=== PATIENT | male | born 1945 | race Caucasian/White ===

== ENCOUNTER → 2017-05-02 | Emergency (ER) | payer MEDICARE ==
[~2017-05-02] VITALS: Ht 198.1 cm; Wt 118.4 kg
[~2017-05-02] MED LIST: ASPIR 8181 MG PO; CIPRO500 MG PO; FLAGYL250 MG PO; LEVAQUIN500 MG PO; LOTREL 10-40 M1 EACH PO; NORCO 5-325 TA1 EACH PO; OMEPRAZOLE40 MG PO; ONDANSETRON HCL INJ 2 MG/ML VIAL IV STA; PANTOPRAZOLE SO40 MG PO
[2017-05-02 18:21] LABS: BASOPHILS % 0.6 % (0.0-1.0); EOSINOPHILS # (AUTO) 0.2 (0.0-0.4); EOSINOPHILS % 3.3 % (0.0-6.0); HEMATOCRIT 44.3 % (38.2-49.6); HEMOGLOBIN 14.9 g/dL (14.0-18.0); LYMPHOCYTES # (AUTO) 1.5 (1.0-3.2); LYMPHOCYTES % 23.8 % (18.0-39.1); MEAN CORPUSCULAR HEMOGLOBIN 30.9 pg (28-32); MEAN CORPUSCULAR HGB CONC 33.6 g/dL (31-35); MEAN CORPUSCULAR VOLUME 91.9 fL (81-99); MONOCYTES # (AUTO) 0.7 (0.2-0.8); MONOCYTES % 10.6 % (4.4-11.3); NEUTROPHILS # (AUTO) 3.9 (2.1-6.9); NEUTROPHILS % 61.2 % (38.7-80.0); PLATELET COUNT 245 x10e3/uL (140-360); RED BLOOD COUNT 4.82 x10e6/uL (4.3-5.7); RED CELL DISTRIBUTION WIDTH 14.6 % (11.7-14.4)
[2017-05-02 18:35] LABS: ALBUMIN 4.1 g/dL (3.5-5.0); ALBUMIN/GLOBULIN RATIO 0.9 (0.8-2.0); CALCIUM 9.5 mg/dL (8.4-10.2); CREATININE, SERUM 1.56 mg/dL (0.72-1.25)
[2017-05-02 18:44] LABS: BILIRUBIN,URINE NEGATIVE (NEGATIVE); CLARITY,URINE CLEAR (CLEAR); COLOR,URINE YELLOW (YELLOW); KETONES,URINE NEGATIVE (NEGATIVE); LEUKOCYTE ESTERASE ,URINE TRACE (NEGATIVE); NITRITE,URINE NEGATIVE (NEGATIVE); PROTEIN,URINE DIPSTICK NEGATIVE (NEGATIVE); URINE UROBILINOGEN 0.2 mg/dL (0.2 - 1)
[2017-05-02 18:57] LABS: EPITHELIAL CELLS,URINE RARE /LPF; WBC,URINE (MAN) 0-5 /HPF (0-5)
--- NOTE | 2017-05-02 22:58 | Diagnostic Imaging Report ---
EXAM: CT ABDOMEN AND PELVIS without IV CONTRAST DATE: 05/02/2017 8:35 PM Time stamp on Exam: 2216 hours INDICATION: Left lower quadrant pain COMPARISON: CT of the abdomen and pelvis April 15, 2017 TECHNIQUE: The abdomen and pelvis were scanned using a multidetector helical scanner. Coronal and sagittal reformations were obtained. Routine protocol performed. IV Contrast: None Oral Contrast: Gastrografin CTDIvol has been reviewed. It is below the limits set by the Radiation Protocol Committee (RPC). FINDINGS: LOWER THORAX: Emphysematous changes LIVER: No masses BILIARY: Cholecystectomy SPLEEN: No masses PANCREAS: Pancreatic atrophy ADRENALS: No nodules KIDNEYS: No nephroureterolithiasis or hydronephrosis. Nonspecific bilateral perinephric fat stranding, likely related to chronic medical renal disease. Stable bilateral renal cysts. GI TRACT: No distention, wall thickening or evidence of obstruction. Normal appendix. The sigmoid colon is redundant. Sigmoid colon diverticulosis. VESSELS: Mild calcified atherosclerotic changes without aneurysm. PERITONEUM/RETROPERITONEUM: No free air or fluid LYMPH NODES: No lymphadenopathy REPRODUCTIVE ORGANS: Unremarkable BLADDER: Stable mild circumferential thickening of the bladder wall, which is incompletely distended. SOFT TISSUES: Unremarkable BONES: Postprocedural changes of vertebroplasty and surgical changes to the right sacroiliac joint. Stable multilevel lower thoracic and lumbar spine compression fractures. IMPRESSION: No CT findings to explain patient's acute left lower quadrant pain. Interval resolution of prior sigmoid colon diverticulitis. Signed by: Dr. Janie Charles M.D. on 05/02/2017 10:55 PM
== END | disposition home or self-care (01) ==
LOC: ER 15:27
DX: R10.84 Generalized abdominal pain (principal); R11.0 Nausea; I10 Essential (primary) hypertension; G20 Parkinson's disease; I25.2 Old myocardial infarction; Z87.19 Personal history of other diseases of the digestive system
CPT/HCPCS: 36415; 74176; 80053; 81001; 85025; 87086; 99284; J2405

== ENCOUNTER 2017-06-11 12:53 | Emergency (ER) | payer MEDICARE ==
[~2017-06-11] VITALS: Ht 198.1 cm; Wt 118.4 kg
[~2017-06-11 12:53] MED LIST changes: -ONDANSETRON HCL INJ 2 MG/ML VIAL IV STA
--- NOTE | 2017-06-11 15:31 | Diagnostic Imaging Report ---
ADDENDUM #1 Addendum: Appendix is normal. Signed by: Dr. Lisa Epperson M.D. on 06/14/2017 7:38 AM ORIGINAL REPORT EXAM: CT Abdomen and Pelvis WITHOUT contrast INDICATION: Right CVA tenderness COMPARISON: CT abdomen and pelvis from 05/02/2017 TECHNIQUE: Abdomen and pelvis were scanned utilizing a multidetector helical scanner from the lung base to the pubic symphysis without administration of IV contrast. Absence of intravenous contrast decreases sensitivity for detection of focal lesions and vascular pathology. Coronal and sagittal reformations were obtained. Routine protocol was performed. IV CONTRAST: None. ORAL CONTRAST: Water RADIATION DOSE: Total DLP: 684.1 mGy*cm Estimated effective dose: (DLP x 0.015 x size factor) mSv COMPLICATIONS: None FINDINGS: LINES and TUBES: None. LOWER THORAX: Emphysema. Small hiatal hernia. HEPATOBILIARY: No focal hepatic lesions. No biliary ductal dilation. GALLBLADDER: Cholecystectomy. SPLEEN: No splenomegaly. PANCREAS: No focal masses or ductal dilatation. ADRENALS: No adrenal nodules KIDNEYS/URETERS: No hydronephrosis. Unchanged 3 cm left and 1.4 cm right renal cyst. Mild bilateral cortical atrophy with surrounding fat stranding. No stones. GI TRACT: No abnormal distention, wall thickening, or evidence of bowel obstruction. Diverticulosis of the sigmoid colon. PELVIC ORGANS/BLADDER: Prostate calcifications. Circumferential wall thickening of the urinary bladder may relate to poor distention. LYMPH NODES: No lymphadenopathy. VESSELS: Unremarkable. PERITONEUM / RETROPERITONEUM: No free air or fluid. BONES: Postprocedural changes of vertebroplasty and surgical changes to the right sacroiliac joint. Stable multilevel lower thoracic and lumbar spine compression fractures. SOFT TISSUES: Unremarkable. IMPRESSION: 1. Stable diffuse diverticulosis throughout the colon without diverticulitis. 2. Mild bilateral cortical atrophy without hydronephrosis or calcified stones. Signed by: Dr. Lisa Epperson M.D. on 06/11/2017 3:27 PM
[2017-06-11 17:52] LABS: BASOPHILS % 0.3 % (0.0-1.0); EOSINOPHILS % 0.5 % (0.0-6.0); HEMATOCRIT 44.6 % (38.2-49.6); HEMOGLOBIN 14.8 g/dL (14.0-18.0); LYMPHOCYTES # (AUTO) 1.4 (1.0-3.2); LYMPHOCYTES % 16.4 % (18.0-39.1); MEAN CORPUSCULAR HEMOGLOBIN 30.1 pg (28-32); MEAN CORPUSCULAR HGB CONC 33.2 g/dL (31-35); MEAN CORPUSCULAR VOLUME 90.7 fL (81-99); MONOCYTES # (AUTO) 0.9 (0.2-0.8); MONOCYTES % 10.7 % (4.4-11.3); NEUTROPHILS # (AUTO) 6.2 (2.1-6.9); NEUTROPHILS % 71.5 % (38.7-80.0); PLATELET COUNT 258 x10e3/uL (140-360); RED BLOOD COUNT 4.92 x10e6/uL (4.3-5.7); RED CELL DISTRIBUTION WIDTH 14.6 % (11.7-14.4)
[2017-06-11 18:22] LABS: PARTIAL THROMBOPLASTIN TIME 25.2 seconds (23.8-35.5); PROTHROMBIN TIME 13.7 seconds (11.9-14.5)
[2017-06-11 18:31] LABS: ALBUMIN 4.2 g/dL (3.5-5.0); ALBUMIN/GLOBULIN RATIO 1.1 (0.8-2.0); ANION GAP 13.5 mmol/L (8-16); CALCIUM 9.1 mg/dL (8.4-10.2); CREATININE, SERUM 1.28 mg/dL (0.72-1.25); POTASSIUM 4.5 mmol/L (3.5-5.1)
[2017-06-11 18:37] LABS: CREATINE KINASE MB 1.9 ng/mL (0.00-5.00); TROPONIN I 0.007 ng/mL (0-0.300)
[2017-06-11 21:10] VITALS: BP 124/79
== END 2017-06-11 21:25 | disposition home or self-care (01) ==
LOC: ER 12:53
DX: R10.11 Right upper quadrant pain (principal); R10.13 Epigastric pain; R11.0 Nausea; I10 Essential (primary) hypertension; Z87.19 Personal history of other diseases of the digestive system
CPT/HCPCS: 36415; 74176; 80053; 82150; 82550; 82553; 83690; 84484; 85025; 85610; 85730; 99283

== ENCOUNTER 2017-07-09 08:13 | Inpatient (IN) | payer MEDICARE ==
[~2017-07-09] VITALS: Ht 193 cm; Wt 114.3 kg
[2017-07-09] VITALS (29 sets, daily range): BP systolic 103–163; BP diastolic 72–111
--- OUTSIDE RECORDS SUMMARY | 2017-07-09 08:16 | XMS REPORT ---
Author Author [facility] Address Unknown Phone Unavailable Care Team Providers Care Milk Collector Name Role Phone DAISY LUCIA Unavailable Unavailable LISA HUNTER Unavailable Unavailable KELY LESTER Unavailable Unavailable YVETTE HERMAN Unavailable Unavailable Problems This patient has no known problems. Allergies, Adverse Reactions, Alerts This patient has no known allergies or adverse reactions. Medications This patient has no known medications. 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 Signed by: Dr. Li Cintron M.D. on 06/14/2017 7:38 AM ORIGINAL REPORT EXAM: CT Abdomen and Pelvis WITHOUT contrast INDICATION: Right CVA tenderness COMPARISON: CT abdomen and pelvis from 05/02/2017 TECHNIQUE: Abdomen and pelvis were scanned utilizing a multidetector helical scanner from the lung base to the pubic symphysis without administration of IV contrast. Absence of intravenous contrast decreases sensitivity for detection of focal lesions and vascular pathology. Coronal and sagittal reformations were obtained. Routine protocol was performed. IV CONTRAST: None. ORAL CONTRAST: Water RADIATION DOSE: Total DLP: 684.1 mGy*cm Estimated effective dose: (DLP x 0.015 x size factor ) mSv COMPLICATIONS: None FINDINGS: LINES and TUBES: None. LOWER THORAX: Emphysema. Small hiatal hernia. HEPATOBILIARY: No focal hepatic lesions. No biliary ductal dilation. GALLBLADDER: Cholecystectomy. SPLEEN: No splenomegaly. PANCREAS: No focal masses or ductal dilatation. ADRENALS: No adrenal nodules KIDNEYS/ URETERS: No hydronephrosis. Unchanged 3 cm left and 1.4 cm right renal cyst. Mild bilateral cortical atrophy with surrounding fat stranding. No stones. GI TRACT: No abnormal distention, wall thickening, or evidence of bowel obstruction. Diverticulosis of the sigmoid colon. PELVIC ORGANS/ BLADDER: Prostate calcifications. Circumferential wall thickening of the urinary bladder may relate to poor distention. LYMPH NODES: No lymphadenopathy. VESSELS: Unremarkable. PERITONEUM / RETROPERITONEUM: No free air or fluid. BONES: Postprocedural changes of vertebroplasty and surgical changes to the right sacroiliac joint. Stable multilevel lower thoracic and lumbar spine compression fractures. SOFT TISSUES: Unremarkable. IMPRESSION: 1. Stable diffuse diverticulosis throughout the colon without diverticulitis. 2. Mild bilateral cortical atrophy without hydronephrosis or calcified stones. Signed by: Dr. Li Cintron M.D. on 06/11/2017 3:27 PM Dictated By: LI CINTRON MD 1527 COPY TO: CAM ROSARIO NP CT ABDOMEN/PELVIS [place] [address] Patient Name: TEDDY LESTER MR #: [id number] : 1945 Age/Sex: 72/M Req #: [id number] Adm Physician: Ordered by: KELY LESTER MD Report #: [id number] Location: ER Room/Bed: ___ Procedure: [id number] CT/CT ABDOMEN/PELVIS WO Exam Date: 05/02/17 Exam Time: 2104 REPORT STATUS: Signed EXAM: CT ABDOMEN AND PELVIS without IV CONTRAST DATE: 05/02/2017 8:35 PM Time stamp on Exam: 2216 hours INDICATION: Left lower quadrant pain COMPARISON: CT of the abdomen and pelvis April 15, 2017 TECHNIQUE: The abdomen and pelvis were scanned using a multidetector helical scanner. Coronal and sagittal reformations were obtained. Routine protocol performed. IV Contrast: None Oral Contrast: Gastrografin CTDIvol has been reviewed. It is below the limits set by the Radiation Protocol Committee (RPC). FINDINGS: LOWER THORAX: Emphysematous changes LIVER: No masses BILIARY: Cholecystectomy SPLEEN: No masses PANCREAS: Pancreatic atrophy ADRENALS: No nodules KIDNEYS: No nephroureterolithiasis or hydronephrosis. Nonspecific bilateral perinephric fat stranding, likely related to chronic medical renal disease. Stable bilateral renal cysts. GI TRACT: No distention, wall thickening or evidence of obstruction. Normal appendix. The sigmoid colon is redundant. Sigmoid colon diverticulosis. VESSELS: Mild calcified atherosclerotic changes without aneurysm. PERITONEUM/RETROPERITONEUM: No free air or fluid LYMPH NODES: No lymphadenopathy REPRODUCTIVE ORGANS: Unremarkable BLADDER : Stable mild circumferential thickening of the bladder wall, which is incompletely distended. SOFT TISSUES: Unremarkable BONES: Postprocedural changes of vertebroplasty and surgical changes to the right sacroiliac joint. Stable multilevel lower thoracic and lumbar spine compression fractures. IMPRESSION: No CT findings to explain patient's acute left lower quadrant pain. Interval resolution of prior sigmoid colon diverticulitis. Signed by: Dr. Nerissa Charles M.D. on 05/02/2017 10:55 PM Dictated By : NERISSA CHARLES MD 54 Transcribed By: ERICH on 05/02/172254 COPY TO: KELY LESTER MD CT ABDOMEN/PELVIS W [place] [address] Patient Name: TEDDY LESTER MR #: [id number] : 1945 Age/Sex: 72/M Req #: [id number] Adm Physician: Ordered by: KELY LESTER MD Report #: [id number] Location: ER Room/Bed: ___ Procedure: [id number] CT/CT ABDOMEN/PELVIS W Exam Date: Exam Time: REPORT STATUS: Signed EXAM: CT Abdomen and Pelvis WITH contrast INDICATION: Diverticulitis COMPARISON: 08/02/2016 TECHNIQUE: Abdomen and pelvis were scanned utilizing a multidetector helical scanner from the lung base to the pubic symphysis after administration of IV contrast. Coronal and sagittal reformations were obtained. Routine protocol was performed. Scan was performed when during portal venous phase. IV CONTRAST: 100 mL of Isovue-370 ORAL CONTRAST: Gastrografin RADIATION DOSE: Total DLP: 732.58 mGy*cm Estimated effective dose: (DLP x 0.015 x size factor) mSv COMPLICATIONS: None FINDINGS: LINES and TUBES: None. LOWER THORAX: Unremarkable HEPATOBILIARY: No focal hepatic lesions. No biliary ductal dilation. GALLBLADDER: There are cholecystectomy clips. SPLEEN: No splenomegaly. PANCREAS: No focal masses or ductal dilatation. ADRENALS: No adrenal nodules KIDNEYS/URETERS: Kidneys enhance symmetrically. No hydronephrosis. There are bilateral renal cysts, the largest on the left measuring 3.8 cm in diameter No stones. GI TRACT: Focal circumferential wall thickening of the mid sigmoid colon best visualized on series 2, image 64 with pericolic fat stranding. There are additional diverticula within the colon. PELVIC ORGANS/BLADDER: Unremarkable. LYMPH NODES: No lymphadenopathy. VESSELS: There is moderate atherosclerotic disease in the aorta and major arterial branches. PERITONEUM / RETROPERITONEUM: No free air or fluid. BONES: There are degenerative changes in the lumbar spine. Diffuse demineralization. There are 3 metallic screws along the right SI joint. Multiple levels of vertebroplasty noted along the thoracolumbar spine from T12 through L5 demonstrating compression deformities SOFT TISSUES: Unremarkable. IMPRESSION: 1. Findings in the mid sigmoid colon are compatible with diverticulitis. Follow-up after treatment with colonoscopy is recommended 2. Bilateral renal cysts. Signed by: Dr. Chapito Mukherjee M.D. on 04/15/2017 5: 32 AM Dictated By: CHAPITO GONZALEZ MD 1 Transcribed By: ERICH on 04/15/17531 COPY TO: KELY LESTER MD CT CHEST W [place] [address] Patient Name: TEDDY LESTER MR #: [id number] : 1945 Age/Sex: 71/M Req #: [id number] Adm Physician: Ordered by: YVETTE HERMAN MD Report #: [id number] Location: ER Room/Bed: Procedure: [id number] CT/CT CHEST W Exam Date: 01/25/17 Exam Time: 1740 REPORT STATUS: Signed EXAM: CT Chest WITH contrast 01/25/2017 4:10 PM INDICATION: Chest pain. Pulmonary malaise and? COMPARISON: None TECHNIQUE: Chest was scanned utilizing a multidetector helical scanner from the lung apex through the level of the adrenal glands without administration of IV contrast. Coronal and sagittal reformations were obtained. Pulmonary embolism protocol was performed. IV CONTRAST: 100 mL of Isovue- 370 RADIATION DOSE: Total DLP: 622.30 mGy*cm Estimated effective dose: (DLP x 0.014 x size factor) mSv COMPLICATIONS: None FINDINGS: LINES/ TUBES: None. LUNGS AND AIRWAYS: The filling defects within the pulmonary arteries bilaterally. Biapical fibronodular changes with calcifications suggesting healed granulomatous disease. Mild diffuse coarsening of the pulmonary interstitium particularly in the lower lobes likely reflect senescent fibrosis. PLEURA: No pleural effusion or pneumothorax. HEART AND MEDIASTINUM: No mediastinal, hilar or axillary lymphadenopathy. The heart is normal in size.. There is no pericardial effusion. Multivessel coronary artery calcifications. Lipomatosis of the mediastinum. Small calcified lymph nodes scattered throughout the mediastinum. UPPER ABDOMEN: Limited non-contrast views of the upper abdomen show a 4.4 cm cyst in the posterior interpolar region of the left kidney. An 8 mm nonspecific calcification posterior to the portal splenic confluence on less image #123. The adrenal glands are normal. Small hiatal hernia. BONES: Generalized osteopenia. Status post kyphoplasty of T12. Compression deformities of T9, T10 and T11. SOFT TISSUES: Unremarkable. IMPRESSION: 1. No evidence of pulmonary embolism as per clinical query. 2. Coronary artery disease. Signed by: Dr. Rock Thomas M.D. on 01/25/2017 6:33 PM Dictated By: MARISEL THOMAS MD, MD 32 COPY TO: YVETTE HERMAN MD CHEST [facility] (PORTABLE) [place] [address] Patient Name: TEDDY LESTER MR #: [id number] : 1945 Age/Sex: 71/M Req #: [id number] Adm Physician: Ordered by: YVETTE HERMAN MD Report #: [id number] Location: ER Room/Bed: Procedure: [id number] DX/CHEST SINGLE (PORTABLE) Exam Date: Exam Time: REPORT STATUS: Signed PROCEDURE: A single AP view of the chest. COMPARISON: Patients [facility], DX, CHEST SINGLE ( NOT PORTABLE), 05/13/2016, 21:27. INDICATIONS: CHEST PAIN FINDINGS: Lines/tubes: None. Lungs: The lungs are well inflated and clear. There is no evidence of pneumonia or pulmonary edema. Pleura: There is no pleural effusion or pneumothorax. Heart and mediastinum: Tortuous thoracic aorta. Scalloping of the right hemidiaphragm is again observed. Bones: No acute bony abnormality. IMPRESSION: 1. No acute cardiopulmonary disease. Rock Thomas M.D. Dictated by: Rock Thomas M.D. on 01/25/2017 at 16:06 Electronically approved by: Rock Thomas M.D. on 01/25/2017 at 16: 06 Dictated By: MARISEL THOMAS MD, MD 1603 Transcribed By: AMERICO on 01/25/17 1606 COPY TO: YVETTE HERMAN MD
[2017-07-09] MEDS ORDERED: ASPIRIN 81 MG CHEW TAB PO ONE (08:30)
[2017-07-09] MEDS ORDERED: NITROGLYCERIN 0.4 MG SUBL SL ONE (08:30)
[2017-07-09 08:35] LABS: BASOPHILS % 0.2 % (0.0-1.0); EOSINOPHILS # (AUTO) 0.1 (0.0-0.4); HEMOGLOBIN 14.5 g/dL (14.0-18.0); LYMPHOCYTES # (AUTO) 1.6 (1.0-3.2); LYMPHOCYTES % 25.5 % (18.0-39.1); MEAN CORPUSCULAR HEMOGLOBIN 30.1 pg (28-32); MEAN CORPUSCULAR HGB CONC 33.7 g/dL (31-35); MEAN CORPUSCULAR VOLUME 89.2 fL (81-99); MONOCYTES # (AUTO) 0.6 (0.2-0.8); MONOCYTES % 9.7 % (4.4-11.3); NEUTROPHILS % 62.8 % (38.7-80.0); PLATELET COUNT 208 x10e3/uL (140-360); RED BLOOD COUNT 4.82 x10e6/uL (4.3-5.7); RED CELL DISTRIBUTION WIDTH 15.5 % (11.7-14.4)
[2017-07-09 08:43] LABS: INR 0.99; PROTHROMBIN TIME 12.3 seconds (11.9-14.5)
[2017-07-09 08:44] LABS: PARTIAL THROMBOPLASTIN TIME 24.1 seconds (23.8-35.5)
[2017-07-09 08:53] LABS: ALBUMIN 3.7 g/dL (3.5-5.0); ALBUMIN/GLOBULIN RATIO 0.9 (0.8-2.0); ANION GAP 14.4 mmol/L (8-16); CALCIUM 9.1 mg/dL (8.4-10.2); CREATININE, SERUM 1.36 mg/dL (0.72-1.25); POTASSIUM 4.4 mmol/L (3.5-5.1)
[2017-07-09 09:00] LABS: CREATINE KINASE MB 1.7 ng/mL (0-5.0)
--- NOTE | 2017-07-09 09:10 | Diagnostic Imaging Report ---
EXAM: CHEST SINGLE (PORTABLE) DATE: 07/09/2017 8:20 AM INDICATION: Short of breath COMPARISON: None FINDINGS: Body habitus and underpenetration limit evaluation. The heart is not significantly enlarged. Perihilar haziness noted, however. Evaluation for pneumothorax limited by technique. Minimal biapical scarring and probable basilar atelectasis present. IMPRESSION: Within limitations of technique, no definite acute finding. Mild edema possible. Signed by: Dr. Diego Martin MD on 07/09/2017 9:06 AM
[2017-07-09] MEDS ORDERED: ONDANSETRON HCL INJ 2 MG/ML VIAL IV STA (09:13)
[2017-07-09] MEDS ORDERED: MORPHINE SULFATE 2 MG/ML SYR IV STA (09:13)
[2017-07-09] MEDS ORDERED: NITROGLYCERIN 2% OINT 1 GM PKT TOP ONE (09:30)
[2017-07-09] MEDS ORDERED: MORPHINE SULFATE 2 MG/ML SYR IV ONE ×2 (12:30→15:00)
[2017-07-09] MEDS ORDERED: NITROGLYCERIN/D5W 200 MCG/ML 250 ML IV STA (12:59)
[2017-07-09] MEDS ORDERED: HEPARIN 25,000U/0.45% NS 250ML 1,000 UNIT in SODIUM CHLORIDE 0.9% 250ML 0 ML IV SCH (13:00)
[2017-07-09] MEDS ORDERED: FAMOTIDINE 20 MG TAB PO SCH (13:30)
[2017-07-09] MEDS ORDERED: NITROGLYCERIN 0.4 MG SUBL SL PRN (13:30)
[2017-07-09] MEDS ORDERED: NITROGLYCERIN/D5W 200 MCG/ML 250 ML IV PRN (13:30)
[2017-07-09] MEDS ORDERED: CLOPIDOGREL BISULFATE 75 MG TAB PO ONE (13:45)
[2017-07-09] MEDS ORDERED: HEPARIN SOD (PORCINE) 5,000 UNIT/ML VIAL IV ONE (14:00)
[2017-07-09] MEDS: SODIUM CHLORIDE 0.9% 1000ML 1,000 ML IV SCH ×2 (14:27→23:44)
[2017-07-09 14:32] LABS: CHOL/HDL RATIO 5.1 (3.9-4.7)
[2017-07-09] MEDS ORDERED: LIDOCAINE HCL 2% LOCAL 20 ML VIAL PRN (15:42)
[2017-07-09] MEDS ORDERED: HEPARIN SOD/SOD CHLORIDE 2,000 ML PRN (15:42)
[2017-07-09] MEDS ORDERED: IOPAMIDOL 370 MG/ML 200 ML INFUS..BTL INJ PRN (15:43)
[2017-07-09] MEDS ORDERED: SODIUM CHLORIDE 0.9% 1000ML 1,000 ML PRN (16:22)
[2017-07-09] MEDS ORDERED: NITROGLYCERIN/D5W 200 MCG/ML 250 ML PRN (16:30)
[2017-07-09] MEDS ORDERED: FENTANYL CITRATE/PF 100MCG/2 ML INJ PRN (16:47)
[2017-07-09] MEDS ORDERED: MIDAZOLAM HCL 2 MG/2 ML VIAL PRN (16:47)
--- NOTE | 2017-07-09 18:19 | Consultation ---
DATE OF CONSULTATION: July 09, 2017 CARDIOLOGY CONSULTATION REASON FOR CONSULTATION: Non-ST elevation myocardial infarction. HISTORY OF PRESENT ILLNESS: This is a 72-year-old male with history of hypertension, and Parkinson disease, who presents with complaints of chest pressure. Reports he was in his usual state of health until this morning, when he woke up at 6 a.m. with chest pressure. The pain was 10/10 in severity. He was diaphoresis and short of breath. There was no radiation or nausea. He, therefore, presented to the ER for further evaluation. He states the pain was slightly improved with nitroglycerin, but, however, is still present despite nitroglycerin drip at this time. He denied any edema, orthopnea, PND, lightheadedness or syncope. REVIEW OF SYSTEMS: Negative except as per HPI. PAST MEDICAL HISTORY 1. Hypertension. 2. Parkinson's disease. PAST SURGICAL HISTORY 1. Cholecystectomy. 2. Umbilical hernia surgery. 3. Back surgery. ALLERGIES: SULFA. MEDICATION: Please see medication list. SOCIAL HISTORY: He denies tobacco or illicit drugs. He drinks alcohol occasionally. FAMILY HISTORY: Noncontributory. PHYSICAL EXAM VITALS: Temperature 98.4 degrees, pulse 74, respiratory rate 18, blood pressure 183/122, oxygen saturation 96%. GENERAL: Awake, alert, well-developed, well-nourished man in no acute distress. NECK: Hyperextended to the right. Supple. No thyromegaly or cervical lymphadenopathy. No carotid bruits. LUNGS: Clear to auscultation bilaterally. No wheezes. No crackles. CARDIOVASCULAR: Normal rate and regular rhythm. No murmur. Normal S1/S2. ABDOMEN: Soft, nontender. EXTREMITIES: No edema. NEURO: Nonfocal exam. LABS: WBC 6.3, hemoglobin 14.5, hematocrit 43, platelets 208,000. Sodium 142, potassium 4.4, chloride 111, CO2 21, BUN 17, creatinine 1.36. Troponin 0.324 from 0.020. EKG: Normal sinus rhythm. Sinus bradycardia. Otherwise normal ECG. Chest x-ray, possible mild edema. IMPRESSIONS 1. Non-ST elevation myocardial infarction. 2. Hypertension. 3. Parkinson disease. 4. Acute kidney injury. RECOMMENDATIONS: Plan for cardiac catheterization today. Start patient on hydration protocol 250 mL NS bolus, followed by 100 mL an hour. Obtain echocardiogram. cardiac enzymes. Risks and benefits of cardiac catheterization were discussed with the patient, who agrees to proceed. Fasting lipid panel. Start statin. Thank you for this consult. We will continue to follow. Job#: [id number] CQ
[2017-07-09] MEDS ORDERED: CYCLOBENZAPRINE5 MG PO (18:29)
[2017-07-09] MEDS: CYCLOBENZAPRINE HCL 10 MG TAB PO PRN (18:47)
[2017-07-09] MEDS: MORPHINE SULFATE 2 MG/ML SYR IV PRN ×2 (20:04→23:45)
[2017-07-09] MEDS: ATORVASTATIN 40 MG TAB PO SCH (20:08)
[2017-07-09] MEDS: ONDANSETRON HCL INJ 2 MG/ML VIAL IV PRN (20:42)
[2017-07-09] MEDS: FAMOTIDINE 20 MG TAB PO SCH (20:43)
[2017-07-09] MEDS ORDERED: PROMETHAZINE 12.5MG/ NACL 0.9% 12.5 MG/50 ML BAG IV PRN (22:30)
--- NOTE | 2017-07-09 23:14 | Operative Report ---
DATE OF PROCEDURE: July 09, 2017 PROCEDURES PERFORMED: 1. Left heart catheterization, selective coronary angiography, left ventriculography. 2. Deployment of right groin Perclose. INDICATIONS: Acute cnr-II-onfbzgi elevation myocardial infarction. COMPLICATIONS: None. BLOOD LOSS: 10 mL. RECOMMENDATIONS: Consideration of coronary artery bypass surgery versus high-risk percutaneous coronary intervention of all 3 coronary vessels. Access obtained in the right femoral artery. A 6-Bengali sheath was placed. Diagnostic coronary angiogram revealed 50% midshaft left main stenosis with ulcerated plaque and small ulcer formation. The left main was calcified. Proximal left anterior descending artery was heavily calcified. Mid left anterior descending artery 70% stenosis origin of diagonal vessel. Ostial circumflex 70% stenosis, mid circumflex 80% stenosis, distal circumflex 90% stenosis at the level of origin of large obtuse marginal branch. 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 LV ejection fraction 40% with anterolateral hypokinesis. LV end-diastolic pressure of 18. No gradient across the aortic valve on pullback. RECOMMENDATIONS: As above. Right groin Perclose was deployed. Patient was transferred to the ICU in stable condition. Job#: [id number]
--- NOTE | 2017-07-09 23:22 | History and Physical ---
CHIEF COMPLAINT: Chest pain. HPI: Mr. Odell is a 72-year-old male, who was in his usual state of health when suddenly he started having chest pain across his chest starting this morning. 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 He reports that he never had this type of episode before. His troponins were high in the emergency room and patient was emergently taken to cardiac cath. Dr. Nixon performed a cardiac catheterization and he recommended coronary artery bypass surgery as patient had multivessel disease. His primary care physician is Dr. Ford and his cutter v groove is Dr. Joiner (sp?). REVIEW OF SYSTEMS GENERAL: Denies any fever or chills. HEAD: Denies any head trauma or head injury. ENT: Denies any earache, nosebleed, throat pain. CVS: As in HPI. GI: Denies any nausea or vomiting. REST OF THE REVIEW OF SYSTEMS: Negative except as in HPI. PAST MEDICAL HISTORY: He has neck spasms and he has been told that this may be a part of Parkinson disease, acid reflux disease, and hypertension. PAST SURGICAL HISTORY: Cholecystectomy. FAMILY AND SOCIAL HISTORY: He lives with his . 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 PHYSICAL EXAM VITAL SIGNS: Temperature 97.4, pulse of 92, blood pressure 124/95, respiratory rate of 18, O2 sat 98% on 2 L. SKIN: Warm and dry. GENERAL APPEARANCE: He is an elderly male, not in any obvious distress. He is awake and alert, following commands, responding to questions appropriately. HEENT: Head atraumatic, normocephalic. Pupils reactive. NECK: Supple. No JVD. Thyroid not enlarged. CHEST: Clear to auscultation bilaterally. No wheezing. HEART: S1/S2 audible. ABDOMEN: Soft, nontender. EXTREMITIES: No pedal edema. NEUROLOGIC: Awake and alert, oriented. No focal neurologic deficit except spasm in the neck. LABS: Sodium 142, potassium 4.4, BUN 17, creatinine 1.36. Troponin 0.324. INR is 0.99. Hematology, white count of 6.3, hemoglobin 14.5, platelets 208,000. Chest x-ray within normal limits. ASSESSMENT AND PLAN: Mr. Odell is a 72-year-old male, who was admitted with non-ST elevation myocardial infarction, underwent cardiac catheterization. Dr. Nixon has recommended coronary artery bypass graft. PLAN 1. Cardiothoracic surgery consult. 2. Aspirin, Plavix, and Lipitor has been started. 3. Observe in ICU. 4. Transfer out of ICU when okay with cardiology. 5. Resume home medications. Job#: [id number] CQ
[2017-07-10] VITALS (73 sets, daily range): BP systolic 86–155; BP diastolic 61–122
[2017-07-10] MEDS: ONDANSETRON HCL INJ 2 MG/ML VIAL IV PRN ×2 (03:10→19:45)
[2017-07-10] MEDS: MORPHINE SULFATE 2 MG/ML SYR IV PRN ×4 (03:11→22:51)
[2017-07-10 05:35] LABS: BASOPHILS % 0.4 % (0.0-1.0); EOSINOPHILS % 0.8 % (0.0-6.0); HEMATOCRIT 36.5 % (38.2-49.6); HEMOGLOBIN 12.2 g/dL (14.0-18.0); LYMPHOCYTES # (AUTO) 0.7 (1.0-3.2); LYMPHOCYTES % 13.5 % (18.0-39.1); MEAN CORPUSCULAR HEMOGLOBIN 30.3 pg (28-32); MEAN CORPUSCULAR HGB CONC 33.4 g/dL (31-35); MEAN CORPUSCULAR VOLUME 90.8 fL (81-99); MONOCYTES # (AUTO) 0.6 (0.2-0.8); MONOCYTES % 12.1 % (4.4-11.3); NEUTROPHILS # (AUTO) 3.8 (2.1-6.9); NEUTROPHILS % 72.6 % (38.7-80.0); PLATELET COUNT 153 x10e3/uL (140-360); RED BLOOD COUNT 4.02 x10e6/uL (4.3-5.7); RED CELL DISTRIBUTION WIDTH 15.2 % (11.7-14.4)
[2017-07-10 05:50] LABS: INR 1.17
[2017-07-10 05:51] LABS: PARTIAL THROMBOPLASTIN TIME 25.4 seconds (23.8-35.5)
[2017-07-10 05:56] LABS: ANION GAP 11.6 mmol/L (8-16); BLOOD UREA NITROGEN 15 mg/dL (7-26); BUN/CREATININE RATIO 13 (6-25); CALCIUM 8.3 mg/dL (8.4-10.2); CARBON DIOXIDE 24 mmol/L (22-29); CHLORIDE 107 mmol/L (98-107); CHOL/HDL RATIO 5.5 (3.9-4.7); CHOLESTEROL 149 MD/DL (0-199); CREATININE, SERUM 1.16 mg/dL (0.72-1.25); EST GLOMERULAR FILTRATION RATE > 60 ML/MIN (60-); GLUCOSE 83 mg/dL (74-118); HDL CHOLESTEROL 27 MG/DL (40-60); LDL CHOLESTEROL 96 MG/DL (60-130); POTASSIUM 4.6 mmol/L (3.5-5.1); SODIUM 138 mmol/L (136-145); TRIGLYCERIDES 128 MG/DL (0-149)
[2017-07-10 06:05] LABS: CREATINE KINASE MB 16.5 ng/mL (0-5.0)
[2017-07-10] MEDS: ASPIRIN 81 MG ENTERIC COATED PO SCH (08:53)
[2017-07-10] MEDS: FAMOTIDINE 20 MG TAB PO SCH ×2 (08:54→19:45)
[2017-07-10] MEDS ORDERED: CLOPIDOGREL BISULFATE 75 MG TAB PO SCH (09:00)
[2017-07-10] MEDS: LISINOPRIL 20 MG TAB PO SCH (09:18)
[2017-07-10] MEDS: SODIUM CHLORIDE 0.9% 1000ML 1,000 ML IV SCH ×2 (09:18→19:44)
[2017-07-10] MEDS: AMLODIPINE BESYLATE 10 MG TAB PO SCH (09:18)
[2017-07-10] MEDS ORDERED: HEPARIN 25,000U/0.45% NS 250ML 250 ML ONE (10:49)
--- NOTE | 2017-07-10 10:50 | Progress Note ---
DATE: July 10, 2017 CARDIOLOGY PROGRESS NOTE SUBJECTIVE: The patient denies chest pain or shortness of breath. OBJECTIVE VITALS: Temperature 98.8 degrees, pulse 77, respiratory rate 16, blood pressure 119/74, and oxygen saturation 93% on 6 L nasal cannula. GENERAL: Awake, alert and in no acute distress. LUNGS: Clear to auscultation bilaterally. No wheezes or crackles. CARDIOVASCULAR: Normal rate and regular rhythm. No murmur. Normal S1 and S2. ABDOMEN: Soft and nontender. EXTREMITIES: No edema. CARDIAC MEDICATIONS 1. Lisinopril 40 mg p.o. daily. 2. Amlodipine 10 mg p.o. daily. 3. Plavix 75 mg p.o. daily. 4. Aspirin 81 mg p.o. q.a.m. 5. Atorvastatin 80 mg p.o. at bedtime. LABS: WBC 5.27, hemoglobin 12.2, hematocrit 36.5, and platelets 153,000. Sodium 138, potassium 4.6, chloride 107, CO2 24, BUN 15, creatinine 1.16. Troponin 8.541. Triglycerides 128, cholesterol 149, LDL 96, HDL 27. Telemetry is normal sinus rhythm. IMPRESSION 1. Bsq-UD-euyylcb elevation myocardial infarction. 2. Multivessel coronary artery disease. 3. Hypertension. 4. Acute kidney injury, improving. 5. Parkinson disease. RECOMMENDATIONS: Continue hydration protocol. CTA of chest this afternoon to evaluate aortic root as it appeared dilated during cardiac cath. Obtain bilateral carotid Dopplers in preparation for bypass surgery. Keep the patient on heparin drip. Trend enzymes until they are down trending. Stop Plavix. Will discuss bypass surgery with Dr. Carmona. The patient will need transfer to outside facility if felt to be an acceptable surgical candidate. Thank you for this consult. We will continue to follow. Job#: [id number] HELIO
[2017-07-10] MEDS: HEPARIN 25,000U/0.45% NS 250ML 1,000 UNIT in SODIUM CHLORIDE 0.9% 250ML 0 ML IV SCH (10:52)
[2017-07-10] MEDS: HYDROCODONE/APAP 5MG-325MG TAB PO PRN ×2 (10:58→15:59)
[2017-07-10] MEDS: CYCLOBENZAPRINE HCL 10 MG TAB PO PRN (15:59)
--- NOTE | 2017-07-10 17:32 | Diagnostic Imaging Report ---
EXAM: CTA OF THE THORACIC AORTA INDICATION: Chest pain COMPARISON: None. TECHNIQUE: Multi-detector CT technology was employed. CTA of the chest was performed , after the administration of IV contrast. For optimization of anatomic evaluation, multiplanar reconstruction, maximum intensity projections, and advanced 3-D off-line postprocessing were performed on a dedicated stand-alone workstation under the direct supervision of the interpreting physician. IV CONTRAST: 100 mL of Isovue-370 ORAL CONTRAST: None COMPLICATIONS: None RADIATION DOSE: Total DLP: 541.70 mGy*cm Estimated effective dose: (DLP x 0.015 x size factor) mSv CTDIvol has been reviewed. It is below the limits set by the Radiation Protocol Committee (RPC). For optimization of anatomic evaluation, multiplanar reconstruction, maximum intensity projections, and advanced 3-D off-line postprocessing were performed on a dedicated stand-alone workstation under the direct supervision of the interpreting physician. FINDINGS: Potential study limitations: None. CHEST: There are calcified mediastinal and hilar lymph nodes, indicating healed granulomatous disease. There are noncalcified right paratracheal lymph nodes which measure up to 1.2 cm and are nonspecific. Normal heart size. No pericardial effusion. There are scattered calcified granulomas in both lungs. Extensive scarlike opacities are seen in the lung apices and bases. The cardiac chambers demonstrate normal atrioventricular and ventriculoarterial concordance, and systemic and pulmonary venous return. The cardiac chamber sizes appear normal. The coronary arteries have normal origins and courses. There are extensive coronary artery calcifications. This study was not optimized for coronary artery evaluation. VASCULAR WITH ADVANCED 3-D OFF-LINE POSTPROCESSING: Aortic valve morphology is incompletely assessed on this non-gated examination. The thoracic aorta is normal in course, caliber, and contour. There is mixed calcific and soft plaque within the thoracic aorta. There is no acute aortic pathology, such as dissection, intramural hematoma, or contained rupture. There is a common origin of the brachiocephalic and left common carotid artery.. All of the arch branch vessels appear widely patent in their proximal portions. Uniformer dimensions of the thoracic aorta are as follows: 3.0 cm at the aortic annulus (series 401, image 54) 3.9 cm at the sinuses of Valsalva (the sinotubular junction is preserved, series 41, image 54) 3.6 cm at the mid ascending aorta (series 3, image 57) 3.6 cm at the distal ascending aorta (series 3, image 49) 3.1 cm at the mid transverse arch (series 3, image 41) 3.0 cm at the proximal descending thoracic aorta (series 3, image 55) 2.9 cm at the diaphragmatic hiatus (series 3, image 116). LIMITED ABDOMEN: Limited images of the upper abdomen reveal no specific abnormality. BONES: Multilevel degenerative changes of thoracic spine with vertebroplasty changes at T11 and T12. IMPRESSION: Mixed atherosclerotic plaque of the thoracic aorta, but no aortic dissection or aneurysm. Jermaine Tinoco MD Signed by: Dr. Jermaine Tinoco M.D. on 07/10/2017 5:29 PM
[2017-07-10] MEDS ORDERED: SODIUM CHLORIDE 0.9% 50ML 50 ML ONE (18:02)
[2017-07-10] MEDS ORDERED: IOPAMIDOL 370 MG/ML 200 ML INFUS..BTL INJ ONE (18:02)
[2017-07-10] MEDS: ATORVASTATIN 40 MG TAB PO SCH (19:45)
[2017-07-11] VITALS (21 sets, daily range): BP systolic 110–149; BP diastolic 69–95
[2017-07-11] MEDS: MORPHINE SULFATE 2 MG/ML SYR IV PRN ×3 (05:37→19:14)
[2017-07-11] MEDS: SODIUM CHLORIDE 0.9% 1000ML 1,000 ML IV SCH ×2 (05:57→15:56)
[2017-07-11 06:03] LABS: BASOPHILS % 0.2 % (0.0-1.0); EOSINOPHILS # (AUTO) 0.1 (0.0-0.4); EOSINOPHILS % 1.5 % (0.0-6.0); HEMATOCRIT 34.4 % (38.2-49.6); HEMOGLOBIN 11.3 g/dL (14.0-18.0); LYMPHOCYTES # (AUTO) 0.7 (1.0-3.2); LYMPHOCYTES % 15.8 % (18.0-39.1); MEAN CORPUSCULAR HEMOGLOBIN 30.5 pg (28-32); MEAN CORPUSCULAR HGB CONC 32.8 g/dL (31-35); MEAN CORPUSCULAR VOLUME 92.7 fL (81-99); MONOCYTES # (AUTO) 0.5 (0.2-0.8); MONOCYTES % 10.6 % (4.4-11.3); NEUTROPHILS # (AUTO) 3.3 (2.1-6.9); NEUTROPHILS % 71.3 % (38.7-80.0); PLATELET COUNT 127 x10e3/uL (140-360); RED BLOOD COUNT 3.71 x10e6/uL (4.3-5.7)
[2017-07-11 06:24] LABS: ALBUMIN 2.9 g/dL (3.5-5.0); ANION GAP 11.4 mmol/L (8-16); CALCIUM 8.2 mg/dL (8.4-10.2); CREATININE, SERUM 1.27 mg/dL (0.72-1.25); POTASSIUM 4.4 mmol/L (3.5-5.1)
[2017-07-11] MEDS: AMLODIPINE BESYLATE 10 MG TAB PO SCH (09:16)
[2017-07-11] MEDS: ASPIRIN 81 MG ENTERIC COATED PO SCH (09:16)
[2017-07-11] MEDS: FAMOTIDINE 20 MG TAB PO SCH ×2 (09:17→19:13)
[2017-07-11] MEDS: LISINOPRIL 20 MG TAB PO SCH (09:17)
[2017-07-11] MEDS ORDERED: HEPARIN 25,000U/0.45% NS 250ML 250 ML ONE (09:43)
[2017-07-11] MEDS: HEPARIN 25,000U/0.45% NS 250ML 1,000 UNIT in SODIUM CHLORIDE 0.9% 250ML 0 ML IV SCH (09:45)
--- NOTE | 2017-07-11 16:12 | Progress Note ---
DATE: July 11, 2017 CARDIOLOGY PROGRESS NOTE SUBJECTIVE: Patient denies chest pain or shortness of breath. Extensive discussion was held regarding plan of care. OBJECTIVE VITAL SIGNS: Temperature 98 degrees, pulse 65, respiratory rate 18, blood pressure 147/93, oxygen saturation 98% on room air. GENERAL: Awake, alert, in no acute distress. LUNGS: Clear to auscultation bilaterally. No wheezes or crackles. CARDIOVASCULAR: Normal rate, regular rhythm. No murmur. Normal S1 and S2. ABDOMEN: Soft, nontender. EXTREMITIES: No edema. CARDIAC MEDICATIONS 1. Heparin drip. 2. Lisinopril 40 mg p.o. daily. 3. Amlodipine 10 mg p.o. daily. 4. Aspirin 81 mg p.o. daily. 5. Atorvastatin 80 mg p.o. nightly. LABS: WBC 4.63, hemoglobin 11.3, hematocrit 34.4, platelets 127. Sodium 141, potassium 4.4, chloride 108, CO2 26, BUN 13, creatinine 1.27. TELEMETRY: Normal sinus rhythm. RECOMMENDATIONS: Images were discussed with Dr. Carmona. Plan for 3-vessel bypass at [facility]. Case Management has been notified to begin transfer. Continue current cardiac medications at this time. Patient and family are agreeable with the plan of care. Awaiting bed assignment and approval from [facility]. Patient currently remains [id number]. He may transfer out of the ICU. Thank you for this consult. We will continue to follow. Job#: [id number] EV
[2017-07-11] MEDS: ONDANSETRON HCL INJ 2 MG/ML VIAL IV PRN (19:13)
[2017-07-11] MEDS: ATORVASTATIN 40 MG TAB PO SCH (19:13)
== END 2017-07-11 21:01 | disposition other institution (70) | DRG 281 ==
LOC: ER 08:13 → ERHOLD 15:20 → ICU 15:24
PROVIDERS: ADMIT Internal Medicine; ATTEND Internal Medicine
PROC: 4A023N7 Measurement of Cardiac Sampling and Pressure, Left Heart, Percutaneous Approach (ICD-10-PCS; principal; 2017-07-09)
PROC: B2111ZZ Fluoroscopy of Multiple Coronary Arteries using Low Osmolar Contrast (ICD-10-PCS; 2017-07-09)
PROC: B2151ZZ Fluoroscopy of Left Heart using Low Osmolar Contrast (ICD-10-PCS; 2017-07-09)
DX: I21.3 ST elevation (STEMI) myocardial infarction of unspecified site (principal); N17.9 Acute kidney failure, unspecified; G20 Parkinson's disease; G89.29 Other chronic pain; M54.9 Dorsalgia, unspecified; I25.119 Atherosclerotic heart disease of native coronary artery with unspecified angina pectoris
CPT/HCPCS: 36140; 36415; 71045; 71275; 77002; 80048; 80053; 80061; 82550; 82553; 82948; 84484; 85025; 85610; 85730; 93005; 93306; 93452; 93458; 93880; 99284; J1644; J2001; J2250; J2270; J2405; J2550; J7030; J7050; Q9967

== ENCOUNTER → 2017-09-28 | Outpatient (CLI) | payer MEDICARE ==
[~2017-09-28] MED LIST changes: +CYCLOBENZAPRINE5 MG PO; +IOPAMIDOL 370 MG/ML 200 ML INFUS..BTL INJ ONE; +SODIUM CHLORIDE 0.9% 50ML 50 ML ONE
[2017-09-28 16:51] LABS: CREATININE, SERUM 1.51 mg/dL (0.72-1.25)
--- NOTE | 2017-09-28 19:04 | Diagnostic Imaging Report ---
PROCEDURE: CT scan of the chest WITH intravenous contrast, using pulmonary angiogram protocol. TECHNIQUE: The chest was scanned utilizing a multidetector helical scanner from the lung apex through the level of the adrenal glands after the IV administration of 78 cc of Isovue 370. Coronal and sagittal multiplanar reformations were obtained. Pulmonary angiogram protocol was performed. Total DLP: 579.69 mGy-cm COMPARISON: CT chest 01/25/2017. INDICATIONS: CHEST PAIN FINDINGS: Lines/tubes: Postoperative changes of CABG with median sternotomy wires, unfused sternal bones, and substernal edema and fat stranding. No fluid collections.. Lungs and Airways: Good contrast bolus. There is acute nonocclusive pulmonary emboli extending from the right pulmonary artery and extending to the right middle and right lower lobe arteries. Questionable filling defect of one of the subsegmental branches of the left upper lobe (series 2 image 54). Biapical pleural-parenchymal scarring. Stable nodularity of the left fissure along the superior aspect, likely related to prior infection. Mild scarring in the apical segment of the right lower lobe, which is unchanged. Unchanged since pleural linear bands, consistent with mild/early fibrosis. No focal consolidations. Pleura: The pleural spaces are clear. Heart and mediastinum: The thyroid gland is normal. No axillary lymphadenopathy. Extensive calcified mediastinal and bilateral hilar lymph nodes consistent with old such as TB. Largest measures 1.2 cm in the right paratracheal (series 2 image 47), unchanged. The heart and pericardium are within normal limits. Small amount of anterior pericardial fluid related to recent surgery. Mild straightening of the interventricular septum. Moderate to severe tri-vessel coronary artery calcifications. Main pulmonary artery measures 2.6 cm. Ascending aorta measures 3.8 cm. Soft tissues: Normal. Abdomen: Limited contrast-enhanced views of the upper abdomen show no abnormality within the visualized liver, spleen, pancreas, or right kidney. The adrenal glands are normal. Small sliding hiatal hernia with associated peritoneal fat is again seen and unchanged. 4.1 cm left renal cyst is grossly stable. Bones: The visualized bony thorax is within normal limits. IMPRESSION: 1. Acute nonocclusive pulmonary emboli in the right lung extending into the right middle and right lower lobe arteries. Questionable involvement of one the subsegmental branches of the left upper lobe. 2. Calcified mediastinal and hilar lymph nodes consistent with old granulomatous disease. Results were relayed to the call center by Dr. Headley to reach Dr. Salcedo on 09/28/2017 at 6:40 PM. Critical results were called into critical result hotline. At 7:[address] Salcedo was reached on her cell phone by Dr. Headley. Dictated by: Asa Headley M.D. on 09/28/2017 at 19:06 Electronically approved by: Asa Headley M.D. on 09/28/2017 at 19:06
== END ==
LOC: CT 16:04
PROVIDERS: ATTEND Internal Medicine
DX: R06.00 Dyspnea, unspecified (principal); Z95.1 Presence of aortocoronary bypass graft
CPT/HCPCS: 36415; 71260; 82565; 84520; Q9967

== ENCOUNTER 2017-09-30 08:41 | Inpatient (IN) | payer MEDICARE ==
[~2017-09-30] VITALS: Ht 193 cm; Wt 91.3 kg
[~2017-09-30 08:41] MED LIST changes: -IOPAMIDOL 370 MG/ML 200 ML INFUS..BTL INJ ONE; -SODIUM CHLORIDE 0.9% 50ML 50 ML ONE
--- OUTSIDE RECORDS SUMMARY | 2017-09-30 08:44 | XMS REPORT | Continuity of Care Document ---
Author Author [facility] Organization [facility] Address [address] [place] [address] Phone Unavailable Care Team Providers Care Certified Physician'S Assistant Name Role Phone NO, PCP PCP Unavailable Insurance Providers Guarantor Duc Odell Address [address] [place] [address] Email [email or web address] Payer [facility] Policy Number [id number] Subscriber's Name Duc Odell Relationship 18 Self / Same As Patient Group Number PLAN N Effective Date 17 Payer Medicare A & B Policy Number [id number] Subscriber's Name Duc Odell Relationship 18 Self / Same As Patient Effective Date 11 Advance Directives Directive Response Recorded Date/Time Does the patient have an advance directive? No 07/09/17 4:16pm If yes, is advance directive on file with [facility]? No 07/09/17 4:16pm If not on file with [facility] will patient provide a copy? Yes 07/09/17 4:16pm Do you have a Directive to Physician? No 07/09/17 8:56am Do you have a Medical Power of Archivist Political History? No 07/09/17 8:56am Do you have an out of hospital Do Not Resuscitate Order? No 07/09/17 8:56am Do you have any special needs we should be aware of? No 07/09/17 8:56am Do you have a support person here with you today? Yes 07/09/17 8:56am Did patient receive Notice of Privacy Practices? Yes 07/09/17 8:56am Did patient receive patient rights and responsibilities? Yes 07/09/17 8:56am Problems Medical Problem Onset Date Status Abdominal pain 10/25/2015 Acute Chronic generalized abdominal pain Unknown Acute Diverticulitis large intestine Unknown Renal insufficiency 10/25/2015 Acute UTI (urinary tract infection) 10/25/2015 Acute Medications Current Home Medications Medication Dose Units Route Directions Days Qty Instructions Start Date Amlodipine Besylate/Benazepril (Lotrel 10-40 Mg Capsule) 1 Each Capsule 10-40 Mg Oral Daily Aspirin (Aspir 81) 81 Mg Tablet. 81 Mg Oral Daily Cyclobenzaprine Hcl (Flexeril) 5 Mg Tablet 1 Tab Oral Every 6 Hours as needed for Pain Hydrocodone Bit/Acetaminophen ([place] 5-325 Tablet) 1 Each Tablet 1 Each Oral As Needed Omeprazole 40 Mg Capsule. 40 Mg Oral Daily Past Home Medications Medication Directions Ordered Status Ciprofloxacin Hcl (Cipro) 500 Mg Tablet, 500 Mg Oral Every 12 Hours Discontinued Levofloxacin (Levaquin) 500 Mg Tablet, 500 Mg Oral Daily Discontinued Metronidazole (Flagyl) 250 Mg Tablet, 250 Mg Oral Three Times A Day Discontinued Pantoprazole Sodium (Protonix) 40 Mg Tablet.dr 40 Mg Oral Daily Discontinued Social History Social History Problem Response Recorded Date/Time Onset Date Status Hx Psychiatric Problems No 07/09/2017 4:16pm Not Applicable Not Applicable Hx Eating Disorder No 07/09/2017 4:16pm Not Applicable Not Applicable Hx Substance Use Disorder No 07/09/2017 4:16pm Not Applicable Not Applicable Hx Depression No 07/09/2017 4:16pm Not Applicable Not Applicable Hx Alcohol Use No 07/09/2017 4:16pm Not Applicable Not Applicable Hx Substance Use Treatment No 07/09/2017 4:16pm Not Applicable Not Applicable Hx Physical Abuse No 07/09/2017 4:16pm Not Applicable Not Applicable Hospital Discharge Instructions No hospital discharge instruction information available. Plan of Care Discharge Date 07/11/17 9:01pm Disposition TRANS TO OTHER [facility] F[facility] Prescriptions See Medication Section Functional Status Query Response Date Recorded Toileting Ability Independent July 11, 2017 4:00pm Allergies, Adverse Reactions, Alerts Allergen Type Severity Reaction Status Last Updated Sulfa (Sulfonamide Antibiotics) Allergy Intermediate NAUSEA Active Immunizations No immunization information available. Vital Signs Acute Vital Signs Vital Response Date/Time Temperature (Fahrenheit) 98.7 degrees F (97.6 - 99.5) 07/11/2017 7:15pm Pulse Pulse Rate (adult) 78 bpm (60 - 90) 07/11/2017 8:15pm Respiratory Rate 18 bpm (12 - 24) 07/11/2017 8:15pm Blood Pressure 135/86 mm Hg 07/11/2017 8:15pm Height 6 ft 4 in 07/11/2017 7:00am Weight 252.06 lb 07/10/2017 7:44am Body Mass Index 30.7 kg/m^2 07/11/2017 7:00am Results Laboratory Results Test Name Result Units Flags Reference Collection Date/Time Result Date/ Time Comments D-Dimer Quantitative (PE/DVT) 0.77 ug/mLFEU H 0.00-0.45 01/25/2017 3: 15pm 01/25/2017 3:45pm B-Type Natriuretic Peptide 17.7 pg/mL 0-100 01/25/2017 1:20pm 2016 2:11pm Urine Color YELLOW YELLOW 05/02/2017 5:53pm 05/02/2017 6:45pm Urine Clarity CLEAR CLEAR 05/02/2017 5:53pm 05/02/2017 6:45pm Urine Specific [place] 1.020 1.010-1.025 05/02/2017 5:53pm 2016 6:45pm Urine pH 5 5 - 7 05/02/2017 5:53pm 05/02/2017 6:45pm Urine Leukocyte Esterase TRACE H NEGATIVE 05/02/2017 5:53pm 2016 6:45pm Urine Nitrite NEGATIVE NEGATIVE 05/02/2017 5:53pm 05/02/2017 6:45pm Urine Protein NEGATIVE NEGATIVE 05/02/2017 5:53pm 05/02/2017 6:45pm Urine Glucose (UA) NEGATIVE NEGATIVE 05/02/2017 5:53pm 05/02/2017 6: 45pm Urine Ketones NEGATIVE NEGATIVE 05/02/2017 5:53pm 05/02/2017 6:45pm Urine Urobilinogen 0.2 mg/dL 0.2 - 1 05/02/2017 5:53pm 05/02/2017 6: 45pm Urine Bilirubin NEGATIVE NEGATIVE 05/02/2017 5:53pm 05/02/2017 6: 45pm Urine Blood NEGATIVE NEGATIVE 05/02/2017 5:53pm 05/02/2017 6:45pm Urine WBC 0-5 /HPF 0-5 05/02/2017 5:53pm 05/02/2017 6:57pm Urine RBC NONE /HPF 0-5 05/02/2017 5:53pm 05/02/2017 6:57pm Urine Bacteria NONE /HPF NONE 05/02/2017 5:53pm 05/02/2017 6:57pm Urine Epithelial Cells RARE /LPF NONE 05/02/2017 5:53pm 05/02/2017 6: 57pm Amylase Level 45 U/L 25-125 06/11/2017 5:30pm 06/11/2017 6:34pm Lipase 4 U/L L 8-78 06/11/2017 5:30pm 06/11/2017 6:34pm White Blood Count 4.63 x10e3/uL L 4.8-10.8 07/11/2017 5:40am 07/11/2017 6:10am Red Blood Count 3.71 x10e6/uL L 4.3-5.7 07/11/2017 5:40am 07/11/2017 6: 10am Hemoglobin 11.3 g/dL L 14.0-18.0 07/11/2017 5:40am 07/11/2017 6:10am Hematocrit 34.4 % L 38.2-49.6 07/11/2017 5:40am 07/11/2017 6:10am Mean Corpuscular Volume 92.7 fL 81-99 07/11/2017 5:40am 07/11/2017 6: 10am Mean Corpuscular Hemoglobin 30.5 pg 28-32 07/11/2017 5:40am 07/11/2017 6:10am Mean Corpuscular Hemoglobin Concent 32.8 g/dL 31-35 07/11/2017 5:40am 07/11/2017 6:10am Red Cell Distribution Width 15.0 % H 11.7-14.4 07/11/2017 5:402017 6:10am Platelet Count 127 x10e3/uL L 140-360 07/11/2017 5:4007/11/2017 6: 10am Neutrophils (%) (Auto) 71.3 % 38.7-80.0 07/11/2017 5:4007/11/2017 6: 10am Lymphocytes (%) (Auto) 15.8 % L 18.0-39.1 07/11/2017 5:4007/11/2017 6 :10am Monocytes (%) (Auto) 10.6 % 4.4-11.3 07/11/2017 5:4007/11/2017 6: 10am Eosinophils (%) (Auto) 1.5 % 0.0-6.0 07/11/2017 5:4007/11/2017 6: 10am Basophils (%) (Auto) 0.2 % 0.0-1.0 07/11/2017 5:4007/11/2017 6:10am IM GRANULOCYTES % 0.6 % 0.0-1.0 07/11/2017 5:4007/11/2017 6:10am Neutrophils # (Auto) 3.3 2.1-6.9 07/11/2017 5:4007/11/2017 6:10am Lymphocytes # (Auto) 0.7 L 1.0-3.2 07/11/2017 5:4007/11/2017 6: 10am Monocytes # (Auto) 0.5 0.2-0.8 07/11/2017 5:4007/11/2017 6:10am Eosinophils # (Auto) 0.1 0.0-0.4 07/11/2017 5:4007/11/2017 6:10am Basophils # (Auto) 0.0 0.0-0.1 07/11/2017 5:4007/11/2017 6:10am Absolute Immature Granulocyte (auto 0.03 x10e3/uL 0-0.1 07/11/2017 5: 40am 07/11/2017 6:10am Prothrombin Time 14.0 seconds 11.9-14.5 07/10/2017 5:10am 07/10/2017 5: 54am Prothromb Time International Ratio 1.17 07/10/2017 5:10am 2017 5:54am Oral Anticoagulant Therapy INR Values: 1. Low Intensity Therapy 1.5 - 2.0 2. Moderate Intensity Therapy 2.0 - 3.0 3. High Intensity Therapy(1) 2.5 - 3.5 4. High Intensity Therapy(2) 3.0 - 4.0 5. Panic Value INR > 5.0 Activated Partial Thromboplast Time 62.7 seconds H 23.8-35.5 07/11/2017 5 :40am 07/11/2017 6:19am Sodium Level 141 mmol/L 136-145 07/11/2017 5:40am 07/11/2017 6:26am Potassium Level 4.4 mmol/L 3.5-5.1 07/11/2017 5:40am 07/11/2017 6:26am Chloride Level 108 mmol/L H 98-107 07/11/2017 5:40am 07/11/2017 6:26am Carbon Dioxide Level 26 mmol/L 22-29 07/11/2017 5:40am 07/11/2017 6: 26am Anion Gap 11.4 mmol/L 8-16 07/11/2017 5:40am 07/11/2017 6:26am Blood Urea Nitrogen 13 mg/dL 7-07/11/2017 5:40am 07/11/2017 6:26am Creatinine 1.27 mg/dL H 0.72-1.25 07/11/2017 5:40am 07/11/2017 6:26am BUN/Creatinine Ratio 10 6-07/11/2017 5:40am 07/11/2017 6:26am Estimat Glomerular Filtration Rate 56 ML/MIN L 6007/11/2017 5:40am 6:26am Ranges were taken from the National Kidney Disease Education Program and the National Kidney Foundation literature. Reference ranges: 60 or greater: Normal 16-59 (for 3 consecutive months): Chronic kidney disease 15 or less: Kidney failure Glucose Level 90 mg/dL 74-118 07/11/2017 5:40am 07/11/2017 6:26am Calcium Level 8.2 mg/dL L 8.4-10.2 07/11/2017 5:40am 07/11/2017 6:26am Bedside Glucose 88 mg/dL 70-120 07/11/2017 11:51am 07/11/2017 12:03pm Meter ID: [id number] Total Bilirubin 0.7 mg/dL 0.2-1.2 07/11/2017 5:40am 07/11/2017 6:26am Aspartate Amino Transf (AST/SGOT) 30 IU/L 5-34 07/11/2017 5:40am 2017 6:26am Alanine Aminotransferase (ALT/SGPT) 24 IU/L 0-55 07/11/2017 5:40am 6:26am Total Protein 5.9 g/dL # L 6.5-8.1 07/11/2017 5:40am 07/11/2017 6:26am Albumin 2.9 g/dL L 3.5-5.0 07/11/2017 5:40am 07/11/2017 6:26am Globulin 3.0 g/dL 2.3-3.5 07/11/2017 5:40am 07/11/2017 6:26am Albumin/Globulin Ratio 1.0 0.8-2.0 07/11/2017 5:40am 07/11/2017 6: 26am Alkaline Phosphatase 64 IU/L 40-150 07/11/2017 5:40am 07/11/2017 6: 26am Triglycerides Level 128 MG/DL 0-149 07/10/2017 5:10am 07/10/2017 5: 56am Cholesterol Level 149 MD/DL 0-199 07/10/2017 5:10am 07/10/2017 5:56am Less than 200 mg/dL Low Risk 201 - 239 mg/dL Borderline Risk 240 mg/dl and greater High Risk LDL Cholesterol 96 MG/DL 60-130 07/10/2017 5:10am 07/10/2017 5:56am HDL Cholesterol 27 MG/DL L 40-60 07/10/2017 5:10am 07/10/2017 5:56am Cholesterol/HDL Ratio 5.5 H 3.9-4.7 07/10/2017 5:10am 07/10/2017 5: 56am Creatine Kinase 236 IU/L # H 30-200 07/10/2017 5:10am 07/10/2017 5:59am Creatine Kinase MB 16.50 ng/mL H 0-5.0 07/10/2017 5:10am 07/10/2017 6: 16am Troponin I 5.367 ng/mL H 0-0.300 07/10/2017 4:15pm 07/10/2017 5:50pm Elevated result called to Marilee Munoz/LAURO at 1747 on 07/10/17 by Jeffrey Acevedo. Procedures Procedure Status Date Provider(s) Computed tomography of chest with contrast Active 01/25/17 YVETTE HERMAN MD Computed tomography of abdomen and pelvis with contrast Active 04/15/[address] of abdomen and pelvis without contrast Active 05/02/[address] of abdomen and pelvis without contrast Active 06/11/[address] angiography of chest Active 07/10/17 MEGAN KENT MD Encounters Encounter Location Arrival/Admit Date Discharge/Depart Date Attending Provider Discharged Inpatient [facility] 07/09/17 3:20pm 07/11/17 9:01pm MONIQUE THOMPSON MD Departed Emergency Room [facility] 06/11/17 12:53pm 06/11 9:25pm DAISY LUCIA MD Registered Emergency Room [facility] 05/02/17 3:27pm LISA HUNTER MD Departed Emergency Room [facility] 04/15/17 1:24am 6:57am KELY LESTER MD Departed Emergency Room [facility] 01/25/17 12:17pm 01/25 7:49pm YVETTE HERMAN MD Departed Emergency Room [facility] 12/26/16 5:20pm 6:55pm LISA HUNTER MD
--- OUTSIDE RECORDS SUMMARY | 2017-09-30 08:44 | XMS REPORT | Summary of Care ---
Author Author Samira Red Organization Unknown Address Unknown Phone Unavailable Care Team Providers Care Field Sales Consultant Name Role Phone Samira Red Unavailable Unavailable EMBER RASMUSSEN, STEPAN Coats Unavailable Unavailable Unavailable Unavailable Functional Status Name Dates Details Functional status health issues are not documented Status: Name Dates Details Cognitive status health issues are not documented Status: Problems Name Dates Details Acute hemodialysis encounter (V56.0, Z99.2) Status: Active Arteriosclerotic cardiovascular disease (ASCVD) (429.2, I25.10) Status: Active CAD (coronary artery disease) (414.00, I25.10) Status: Active Medications Name Dates Details Medications not documented Allergies and Adverse Reactions Name Dates Details Allergy history not documented Status: Procedures Procedure Dates Details History of Hemodialysis access procedure Completed Immunization Name Dates Details Immunizations not documented Social History Name Dates Details Unknown if ever smoked Vital Signs Date Test Result Details [id number] BP Systolic 116 mm[Hg] Status: BP Diastolic 79 mm[Hg] Status: Height 78 in Status: Weight 208 lb Status: Body Mass Index Calculated 24.04 kg/m2 Status: Body Surface Area Calculated 2.3 m2 Status: Results Date Description Value Details [id number] XRAY Chest 2 views [id number] Chest 2 views SEE NOTES Comments: Clinical Indication: - I25.10 Atherosclerotic heart disease of nativecoronary artery without angina pectorisComparison: 08/05/2017FINDINGS: PA and lateral views the chest are submitted for interpretation.The lungs are clear and there are no effusions. There are centrilobularemphysematous changes throughout both lungs. There is no visible pneumothorax.The cardiomediastinal contours are within normal limits. The patient is statuspost median sternotomy. There are no clinically significant osseousabnormalities noted.IMPRESSION:1. No radiographic evidence of acute cardiopulmonary process.2. Chronic obstructive pulmonary disease.SL: [id number] by: John Roberts MDDictated Date/time: 08/26/17 10: 40Electronically Signed by: John Roberts MD 0:41FINAL REPORT Plan of Care Name Dates Details Planned Observations Planned Goals not documented Planned Encounters Appointment; CECY DUMONT M.D. On: 12-Sep-2017 10:30 Instructions Name Dates Details Instructions not documented Encounters Appointment; CECY DUMONT M.D. Encounter Diagnosis: Problem not documented On: 29-Aug-2017 10:00
[2017-09-30] MEDS ORDERED: ASPIRIN 81 MG CHEW TAB PO STA (09:04)
[2017-09-30] MEDS ORDERED: SODIUM CHLORIDE 0.9% 1000ML 1,000 ML IV STA (09:04)
[2017-09-30] MEDS ORDERED: MORPHINE SULFATE 2 MG/ML SYR IV STA (09:04)
[2017-09-30] MEDS ORDERED: ONDANSETRON HCL 4 MG ORAL DISINTEGRATING TAB PO ONE (09:15)
[2017-09-30] MEDS ORDERED: ASPIRIN 81 MG CHEW TAB ONE (09:29)
[2017-09-30 10:01] LABS: BASOPHILS % 0.3 % (0.0-1.0); EOSINOPHILS # (AUTO) 0.1 (0.0-0.4); HEMATOCRIT 36.3 % (38.2-49.6); LYMPHOCYTES # (AUTO) 1.2 (1.0-3.2); LYMPHOCYTES % 16.1 % (18.0-39.1); MEAN CORPUSCULAR HEMOGLOBIN 30.2 pg (28-32); MEAN CORPUSCULAR HGB CONC 33.1 g/dL (31-35); MEAN CORPUSCULAR VOLUME 91.4 fL (81-99); MONOCYTES # (AUTO) 0.6 (0.2-0.8); MONOCYTES % 8.2 % (4.4-11.3); NEUTROPHILS # (AUTO) 5.3 (2.1-6.9); NEUTROPHILS % 73.7 % (38.7-80.0); PLATELET COUNT 240 x10e3/uL (140-360); RED BLOOD COUNT 3.97 x10e6/uL (4.3-5.7); RED CELL DISTRIBUTION WIDTH 16.2 % (11.7-14.4)
--- NOTE | 2017-09-30 10:06 | Diagnostic Imaging Report ---
PROCEDURE: X-RAY CHEST, TWO VIEWS COMPARISON: None. INDICATIONS: PULMONARY EMBOLISM FINDINGS: LUNGS: No consolidations or edema. The lungs are hyperexpanded. PLEURA: No effusions or pneumothorax. HEART \T\ MEDIASTINUM: The heart is within normal size-limits. Sternotomy wire sutures. Aortic tortuosity. BONES \T\ SOFT TISSUES: No acute findings. Vertebroplasty cement within multiple thoracic and lumbar spine vertebral bodies. CONCLUSION: No acute thoracic abnormality. Tino Francis D.O. Dictated by: Tino Francis D.O. on 09/30/2017 at 10:08 Electronically approved by: Tino Francis D.O. on 09/30/2017 at 10:08
[2017-09-30 10:18] LABS: ALBUMIN 3.6 g/dL (3.5-5.0); ANION GAP 13.2 mmol/L (8-16); CALCIUM 9.4 mg/dL (8.4-10.2); CREATININE, SERUM 1.42 mg/dL (0.72-1.25); INR 1.14; POTASSIUM 4.2 mmol/L (3.5-5.1); PROTHROMBIN TIME 13.7 seconds (11.9-14.5)
[2017-09-30 10:19] LABS: PARTIAL THROMBOPLASTIN TIME 26.7 seconds (23.8-35.5)
[2017-09-30 10:26] LABS: CREATINE KINASE MB 1.4 ng/mL (0-5.0)
[2017-09-30 10:32] LABS: BILIRUBIN,URINE NEGATIVE (NEGATIVE); CLARITY,URINE CLEAR (CLEAR); COLOR,URINE YELLOW (YELLOW); KETONES,URINE NEGATIVE (NEGATIVE); LEUKOCYTE ESTERASE ,URINE NEGATIVE (NEGATIVE); NITRITE,URINE NEGATIVE (NEGATIVE); PROTEIN,URINE DIPSTICK NEGATIVE (NEGATIVE); URINE UROBILINOGEN 0.2 mg/dL (0.2 - 1)
[2017-09-30] MEDS: SODIUM CHLORIDE 0.9% 1000ML 1,000 ML IV SCH ×2 (10:37→17:28)
[2017-09-30] MEDS ORDERED: ASPIRIN 81 MG CHEW TAB PO ONE (10:45)
[2017-09-30] MEDS ORDERED: HEPARIN SOD (PORCINE) 5,000 UNIT/ML VIAL IV ONE (10:45)
[2017-09-30 10:52] LABS: EPITHELIAL CELLS,URINE RARE /LPF
[2017-09-30 12:00] VITALS: BP 130/87
[2017-09-30 12:23] VITALS: BP 130/87
[2017-09-30] MEDS: HEPARIN 25,000U/0.45% NS 250ML 1,500 UNIT in SODIUM CHLORIDE 0.9% 250ML 0 ML IV SCH (12:56)
--- NOTE | 2017-09-30 16:38 | Consultation ---
DATE OF CONSULTATION: September 30, 2017 CARDIOLOGY CONSULTATION REASON FOR CONSULTATION: Chest pain. CLINICAL HISTORY: Mr. Odell is a 72-year-old gentleman with recent diagnosis of significant coronary artery disease with recent coronary artery bypass surgery, now with pulmonary emboli, who was readmitted with inability to afford his anticoagulation. He has been placed on heparin. He continues to have minimal chest pain. PAST MEDICAL, SOCIAL AND FAMILY HISTORY: Unchanged from prior visit. MEDICATIONS: Include warfarin and intravenous heparin and aspirin. REVIEW OF SYSTEMS: Is negative except as dictated in the history of present illness. PHYSICAL EXAMINATION: VITALS: Afebrile. Heart rate 66. Blood pressure 130/87. O2 sat is 92% on 2 liters nasal cannula. CARDIOVASCULAR: Regular rhythm. Systolic murmur. LUNGS: Fine crackles and occasional rhonchi in both lung bases. ABDOMEN: Soft. Chest x-ray shows no acute abnormality. Serum creatinine is 1.42. Hemoglobin is 12. Troponin is negative. ASSESSMENT: 1. Acute pulmonary embolus. Recommendation: Intravenous hydration, intravenous heparin and warfarin for anticoagulation with target INR of 2 and 3. 2. Coronary artery disease status post coronary artery bypass surgery. We will restart beta felix as well as statin. 3. Patient will require full anticoagulation with therapeutic INR prior to discharge. I thank Dr. Pascual for this consultation. Job#: [id number]
[2017-09-30 16:45] VITALS: BP 123/85
[2017-09-30] MEDS: WARFARIN SOD 5 MG TAB PO SCH (17:28)
[2017-09-30 17:35] VITALS: BP 123/85
[2017-09-30 20:00] VITALS: BP 131/93
[2017-09-30 20:20] LABS: CREATINE KINASE MB 1.5 ng/mL (0-5.0)
[2017-09-30] MEDS: LORAZEPAM 0.5 MG TAB PO PRN (20:48)
[2017-09-30] MEDS: ATORVASTATIN 20 MG TAB PO SCH (20:48)
--- NOTE | 2017-09-30 20:53 | History and Physical ---
This 72-year-old male comes in with pulmonary embolism. He was sent from Dr. Salcedo's office. HISTORY OF PRESENT ILLNESS: Mr. Duc Odell has a recent history of coronary artery disease. He was in his usual state of health until 4 days prior to admission. The patient had some chest pain. He came to Dr. Salcedo's office. Some IV fluids started and the patient also was given CT order. CT showed pulmonary embolism. The patient was started on Eliquis. The patient could not afford it and he was sent to the emergency room and he was started on heparin protocol and also started on warfarin. PAST MEDICAL HISTORY: History of coronary artery disease with recent CABG, history of dystonia, history of hypertension, history of reflux esophagitis. PAST SURGICAL HISTORY: History of back repair, hernia repair and gallbladder surgery and recent CABG. HOME MEDICATIONS: Aspirin, atorvastatin, cyclobenzaprine, omeprazole, hydrocodone, acetaminophen and amlodipine, benazepril. REVIEW OF SYSTEMS: Positive for chest pain and shortness of breath. No nausea, vomiting or diarrhea. No constipation. No rectal bleeding. No hematochezia, no hematemesis, no diplopia, no blurry vision. PHYSICAL EXAMINATION VITAL SIGNS: Temperature 97.3, pulse oximetry 92% and blood pressure 123/85, respirations 17. O2 at 3 liters nasal cannula. HEENT: Normocephalic. The patient has acute dystonia with his neck to the left side. CVS: S1 and S2 normal. Regular rate and rhythm. Positive for scar in the anterior chest wall. Positive for ejection systolic murmur. LUNGS: Positive for crackles in the lower bases. ABDOMEN: Nontender, nondistended. EXTREMITIES: Positive for some trace edema. LABORATORY DATA: White count was 17.9, hemoglobin 12.0, hematocrit 36.3. Chemistry: Sodium 137, potassium 4.2, BUN 20, creatinine 1.42. Urine is normal. Coags are actually normal too. ASSESSMENT: Pulmonary embolism by CT scan, not visualized by me. PLAN: Will start the patient on heparin protocol. Warfarin has been started, 5 mg, and will continue that. The patient will be given some Ativan. Will also restart his home medications. Will adjust his INR to be within 2 and 3. The patient can be stopped off his Coumadin and can be sent home. Final diagnosis would be pulmonary embolism, chronic kidney disease, history of chronic dystonia, coronary artery disease, status post CABG and history of anxiety and hypertension. Will continue to monitor the patient. Further recommendations depending on clinical course. Job#: [id number]
[2017-09-30] MEDS: HYDROCODONE/APAP 5MG-325MG TAB PO PRN ×2 (21:40→21:48)
[2017-10-01] VITALS (9 sets, daily range): BP systolic 109–140; BP diastolic 78–94
[2017-10-01] MEDS: HYDROCODONE/APAP 5MG-325MG TAB PO PRN ×4 (02:59→21:40)
[2017-10-01 03:05] LABS: CREATINE KINASE MB 1.7 ng/mL (0-5.0)
[2017-10-01] MEDS: SODIUM CHLORIDE 0.9% 1000ML 1,000 ML IV SCH ×3 (05:20→18:40)
--- NOTE | 2017-10-01 05:58 | Diagnostic Imaging Report ---
EXAMINATION: CHEST SINGLE (PORTABLE) INDICATION: Chest pain COMPARISON: 09/30/2017 FINDINGS: TUBES and LINES: None. LUNGS: Lungs are not well inflated. There are bibasilar atelectasis. There is no evidence of pneumonia or pulmonary edema. PLEURA: No pleural effusion or pneumothorax. HEART AND MEDIASTINUM: The cardiomediastinal silhouette is remarkable for prior sternotomy. There are atherosclerotic calcifications within the aorta. BONES AND SOFT TISSUES: No acute osseous lesion. Soft tissues are unremarkable. UPPER ABDOMEN: No free air under the diaphragm. IMPRESSION: No acute thoracic abnormality. Signed by: Dr. Chapito Mukherjee M.D. on 10/01/2017 5:54 AM
[2017-10-01 05:59] LABS: BASOPHILS % 0.5 % (0.0-1.0); EOSINOPHILS # (AUTO) 0.1 (0.0-0.4); EOSINOPHILS % 2.3 % (0.0-6.0); HEMATOCRIT 35.3 % (38.2-49.6); HEMOGLOBIN 11.1 g/dL (14.0-18.0); LYMPHOCYTES # (AUTO) 1.1 (1.0-3.2); LYMPHOCYTES % 18.5 % (18.0-39.1); MEAN CORPUSCULAR HEMOGLOBIN 30.2 pg (28-32); MEAN CORPUSCULAR HGB CONC 31.4 g/dL (31-35); MEAN CORPUSCULAR VOLUME 95.9 fL (81-99); MONOCYTES # (AUTO) 0.5 (0.2-0.8); MONOCYTES % 8.1 % (4.4-11.3); NEUTROPHILS # (AUTO) 4.3 (2.1-6.9); NEUTROPHILS % 70.3 % (38.7-80.0); PLATELET COUNT 187 x10e3/uL (140-360); RED BLOOD COUNT 3.68 x10e6/uL (4.3-5.7); RED CELL DISTRIBUTION WIDTH 16.5 % (11.7-14.4)
[2017-10-01 06:11] LABS: INR 1.2; PROTHROMBIN TIME 14.3 seconds (11.9-14.5)
[2017-10-01 06:13] LABS: PARTIAL THROMBOPLASTIN TIME 90.8 seconds (23.8-35.5)
[2017-10-01 06:31] LABS: ALANINE AMINOTRANSFERASE 8 IU/L (0-55); ALBUMIN 3.1 g/dL (3.5-5.0); ALBUMIN/GLOBULIN RATIO 0.9 (0.8-2.0); ALKALINE PHOSPHATASE 97 IU/L (40-150); ANION GAP 11.6 mmol/L (8-16); BLOOD UREA NITROGEN 14 mg/dL (7-26); BUN/CREATININE RATIO 12 (6-25); CALCIUM 8.9 mg/dL (8.4-10.2); CARBON DIOXIDE 21 mmol/L (22-29); CHLORIDE 109 mmol/L (98-107); CREATININE, SERUM 1.18 mg/dL (0.72-1.25); EST GLOMERULAR FILTRATION RATE > 60 ML/MIN (60-); GLUCOSE 84 mg/dL (74-118); POTASSIUM 4.6 mmol/L (3.5-5.1); SODIUM 137 mmol/L (136-145)
[2017-10-01] MEDS: ASPIRIN 81 MG ENTERIC COATED PO SCH (08:42)
[2017-10-01] MEDS: HEPARIN 25,000U/0.45% NS 250ML 1,500 UNIT in SODIUM CHLORIDE 0.9% 250ML 0 ML IV SCH (08:44)
[2017-10-01] MEDS: METOPROLOL SUCCINATE 25 MG TAB XL PO SCH (08:52)
--- NOTE | 2017-10-01 11:33 | Progress Note ---
DATE: October 01, 2017 CARDIOLOGY PROGRESS NOTE SUBJECTIVE: The patient continues to have some left-sided soreness. His chest pain is improved. OBJECTIVE VITALS: Temperature 97.8 degrees, pulse 70, respiratory rate 18, blood pressure 135/91, and oxygen saturation 96% on 1 L nasal cannula. GENERAL: Awake, alert and in no acute distress. LUNGS: Clear to auscultation bilaterally. No wheezes or crackles. CARDIOVASCULAR: Normal rate. Regular rhythm. No murmur. Normal S1 and S2. ABDOMEN: Soft and nontender. EXTREMITIES: No edema. CARDIAC MEDICATIONS 1. Metoprolol succinate 25 mg p.o. daily. 2. Aspirin 81 mg p.o. q.a.m. 3. Atorvastatin 20 mg p.o. at bedtime. 4. Warfarin 5 mg p.o. daily. LABS: WBC 6.05, hemoglobin 11.1, hematocrit 35.3, and platelets 187,000. Sodium 137, potassium 4.6, chloride 109, CO2 21, BUN 14, creatinine 1.18. Telemetry is normal sinus rhythm. IMPRESSION 1. Acute nonspecific pulmonary emboli in the right lung extending into the right middle and right lower lobe arteries: Question of normal involvement of one of the subsegmental areas of the left upper lobe. 2. Acute nonocclusive pulmonary emboli in the right lung extending into the right middle and right lower lobe arteries. 3. Coronary artery disease: Status post recent coronary artery bypass graft. 4. Acute kidney injury. 5. Hypertension: Currently, with orthostatic hypotension. 6. Parkinson disease. RECOMMENDATIONS: Continue heparin drip. Bridge to therapeutic INR. Continue Coumadin 5 mg p.o. daily. Once INR is therapeutic, plan to discharge the patient home on Coumadin. Importance of consistent diet, as well as frequent INR checks were discussed with the patient. Continue current cardiac medications otherwise. Agree with intravenous hydration given his orthostatic hypotension and acute kidney injury. Thank you for this consult. We will continue to follow. Job#: [id number] HELIO
[2017-10-01] MEDS: HEPARIN 25,000U/0.45% NS 250ML 250 ML IV SCH (12:30)
[2017-10-01] MEDS: LORAZEPAM 0.5 MG TAB PO PRN (16:14)
[2017-10-01] MEDS: WARFARIN SOD 5 MG TAB PO SCH (17:30)
[2017-10-01] MEDS: ATORVASTATIN 20 MG TAB PO SCH (21:56)
[2017-10-02] VITALS (11 sets, daily range): BP systolic 99–176; BP diastolic 53–99
[2017-10-02] MEDS: SODIUM CHLORIDE 0.9% 1000ML 1,000 ML IV SCH ×2 (02:37→10:37)
[2017-10-02 06:10] LABS: INR 1.32; PROTHROMBIN TIME 15.4 seconds (11.9-14.5)
[2017-10-02] MEDS: HYDROCODONE/APAP 5MG-325MG TAB PO PRN ×3 (07:27→18:37)
[2017-10-02] MEDS: ASPIRIN 81 MG ENTERIC COATED PO SCH (09:09)
[2017-10-02] MEDS: METOPROLOL SUCCINATE 25 MG TAB XL PO SCH (09:10)
[2017-10-02] MEDS: HEPARIN 25,000U/0.45% NS 250ML 250 ML IV SCH (10:30)
[2017-10-02 10:37] LABS: ALBUMIN 3.3 g/dL (3.5-5.0); BILIRUBIN,DIRECT 0.2 mg/dL (0.0-0.5)
--- NOTE | 2017-10-02 16:43 | Progress Note ---
DATE: October 02, 2017 CARDIOLOGY PROGRESS NOTE SUBJECTIVE: The patient denies chest pain or shortness of breath. OBJECTIVE VITALS: Temperature 96.4 degrees, pulse 69, respiratory rate 16, blood pressure 111/84, oxygen saturation 90% on nasal cannula. GENERAL: Awake, alert and in no acute distress. LUNGS: Clear to auscultation bilaterally. No wheezes or crackles. CARDIOVASCULAR: Normal rate. Regular rhythm. No murmur. Normal S1 and S2. ABDOMEN: Soft and nontender. EXTREMITIES: No edema. CARDIAC MEDICATIONS 1. Metoprolol succinate 25 mg p.o. daily. 2. Aspirin 81 mg p.o. q.a.m. 3. Atorvastatin 20 mg p.o. at bedtime. 4. Warfarin 5 mg p.o. daily. LABS: AST 10, ALT 9, alk phos 108. INR 1.32. Telemetry is normal sinus rhythm. IMPRESSION 1. Acute nonocclusive pulmonary emboli in the right lung extending into the right middle and right lower lobes. 2. Coronary artery disease: Status post recent coronary artery bypass graft. 3. Acute kidney injury, improved. 4. Hypertension. 5. Parkinson disease. RECOMMENDATIONS: Continue current cardiac medications. INR is slowly rising. Will continue to follow. Bridge with heparin drip. Check orthostatic vitals. Thank you for this consult. We will continue to follow. Job#: [id number] HELIO
[2017-10-02] MEDS: WARFARIN SOD 5 MG TAB PO SCH (17:16)
[2017-10-02] MEDS: ATORVASTATIN 20 MG TAB PO SCH (21:00)
[2017-10-02] MEDS: LORAZEPAM 0.5 MG TAB PO PRN (21:00)
[2017-10-03] VITALS (13 sets, daily range): BP systolic 97–168; BP diastolic 75–116
[2017-10-03 06:54] LABS: INR 1.99; PROTHROMBIN TIME 21.2 seconds (11.9-14.5)
--- NOTE | 2017-10-03 08:19 | Diagnostic Imaging Report ---
PROCEDURE:ABDOMINAL ULTRASOUND COMPARISON:CT chest 09/28/2017. INDICATIONS:RUQ PAIN FINDINGS: Liver: 18.4 cm in length in the right midclavicular line. Normal hepatic parenchymal echogenicity. No focal mass. Main portal vein: 1 cm in caliber. Hepatopedal flow. Gallbladder: Surgically removed. Common Bile Duct: 0.5 cm in caliber. No echogenic filling defect. Right kidney: 10.5 cm in length. 2 x 1.5 x 1.4 cm round, anechoic structure in the interpolar region without internal vascularity or solid component. No solid mass, echogenic calculi, or hydronephrosis. Increased parenchymal echogenicity. Left kidney: 11.2 cm in length. 4.1 x 3 x 3.7 cm round, anechoic structure in the interpolar region without internal vascularity or solid component. Smaller lesion of similar sonographic characteristics in the lower pole measuring 1.9 x 1.7 x 1.8 cm. No solid mass, echogenic calculi, or hydronephrosis. Increased parenchymal echogenicity. Spleen: 8.1 cm in length. Uniform parenchyma echotexture. Pancreas: Poorly visualized secondary to overlying bowel gas. Inferior vena cava: Patent centrally. Poorly visualized peripherally secondary to overlying bowel gas. Aorta: Non-aneurysmal proximally. Poorly visualized distally secondary to overlying bowel gas. Ascites: None. CONCLUSION: Status post cholecystectomy with normal caliber common bile duct. Bilateral simple renal cysts. Increased renal cortical echogenicity suggestive of medical renal disease. Dictated by: Esa Gomez M.D. on 10/03/2017 at 8:21 Electronically approved by: Esa Gomez M.D. on 10/03/2017 at 8:21
[2017-10-03] MEDS: ASPIRIN 81 MG ENTERIC COATED PO SCH (09:55)
[2017-10-03] MEDS: METOPROLOL SUCCINATE 25 MG TAB XL PO SCH (09:55)
[2017-10-03] MEDS: HEPARIN 25,000U/0.45% NS 250ML 250 ML IV SCH (12:22)
--- NOTE | 2017-10-03 13:05 | Progress Note ---
DATE: October 03, 2017 CARDIOLOGY PROGRESS NOTE SUBJECTIVE: Patient denies chest pain or shortness of breath. OBJECTIVE VITAL SIGNS: Temperature 97.6 degrees, pulse 65, respiratory rate 20, blood pressure 118/92, oxygen saturation 94% on 2 liters nasal cannula. GENERAL: Awake, alert, in no acute distress. LUNGS: Clear to auscultation bilaterally. No wheezes or crackles. CARDIOVASCULAR: Normal rate, regular rhythm. No murmur. Normal S1 and S2. ABDOMEN: Soft, nontender. EXTREMITIES: No edema. CARDIAC MEDICATIONS 1. Metoprolol succinate 25 mg p.o. daily. 2. Aspirin 81 mg p.o. daily. 3. Atorvastatin 20 mg p.o. nightly. 4. Warfarin 5 mg p.o. daily. 5. Heparin drip. LABS: None today. INR 1.99. TELEMETRY: Normal sinus rhythm. IMPRESSION 1. Acute nonocclusive pulmonary emboli in the right lung extending into the right middle and right lower lobes. 2. Coronary artery disease status post recent coronary artery bypass graft. 3. Acute kidney injury, improved. 4. Hypertension. 5. Parkinson's disease. RECOMMENDATIONS: Continue current cardiac medications. We will decrease warfarin dose given rapid rise in INR. Continue bridge with heparin drip. Likely discharge home tomorrow once INR is therapeutic. Perform home O2 evaluation and check orthostatic vitals. Thank you for this consult. We will continue to follow. Job#: [id number]
[2017-10-03] MEDS ORDERED: WARFARIN SOD 5 MG TAB PO SCH (17:00)
[2017-10-03] MEDS ORDERED: WARFARIN SOD 2 MG TAB PO SCH (17:00)
[2017-10-03] MEDS: LORAZEPAM 0.5 MG TAB PO PRN (17:06)
[2017-10-03] MEDS: HYDROCODONE/APAP 5MG-325MG TAB PO PRN (17:07)
[2017-10-03] MEDS ORDERED: CYCLOBENZAPRINE HCL PO PRN (18:15)
[2017-10-03] MEDS ORDERED: CYCLOBENZAPRINE HCL 10 MG TAB PO PRN ×2 (18:30)
[2017-10-03] MEDS: ATORVASTATIN 20 MG TAB PO SCH (20:17)
[2017-10-04 04:00] VITALS: BP 108/87
[2017-10-04 06:40] LABS: INR 2.77; PROTHROMBIN TIME 27.5 seconds (11.9-14.5)
[2017-10-04 07:08] VITALS: BP 103/75
[2017-10-04 07:12] VITALS: BP 103/75
[2017-10-04 07:26] VITALS: BP 118/89
[2017-10-04 07:28] VITALS: BP 96/73
[2017-10-04] MEDS: METOPROLOL SUCCINATE 25 MG TAB XL PO SCH (11:08)
[2017-10-04] MEDS: ASPIRIN 81 MG ENTERIC COATED PO SCH (11:08)
--- NOTE | 2017-10-04 13:52 | Progress Note ---
DATE: October 04, 2017 CARDIOLOGY PROGRESS NOTE SUBJECTIVE: Patient denies chest pain or shortness of breath. OBJECTIVE VITAL SIGNS: Temperature 96.9 degrees, pulse 74, respiratory rate 20, blood pressure 96/73, oxygen saturation 97% on room air. GENERAL: Awake, alert, in no acute distress. LUNGS: Clear to auscultation bilaterally. No wheezes or crackles. CARDIOVASCULAR: Normal rate, regular rhythm. No murmur. Normal S1 and S2. ABDOMEN: Soft, nontender. EXTREMITIES: No edema. CARDIAC MEDICATIONS 1. Metoprolol succinate 25 mg p.o. daily. 2. Aspirin 81 mg p.o. q.a.m. 3. Atorvastatin 20 mg p.o. nightly. 4. Warfarin 4 mg p.o. daily. LABS: INR 2.77. TELEMETRY: Normal sinus rhythm. IMPRESSION 1. Acute nonocclusive pulmonary emboli in the right lung extending into the right middle and right lower lobes. 2. Coronary artery disease status post recent coronary artery bypass graft. 3. Acute kidney injury, improved. 4. Hypertension. 5. Parkinson's disease. RECOMMENDATIONS: Continue current cardiac medications. Given acute rise in INR, further decrease warfarin to 3 mg daily. The patient was instructed to follow up for INR check at the end of this week. Heparin drip can be stopped. The patient is awaiting delivery of home O2. Thank you for this consult. We will continue to follow. Job#: [id number]
[2017-10-04] MEDS ORDERED: WARFARIN SOD 3 MG TAB PO SCH (17:00)
[2017-10-04] MEDS ORDERED: WARFARIN SOD 2 MG TAB PO SCH (17:00)
[2017-10-09] MEDS ORDERED: ETODOLAC500 MG PO (13:54)
== END 2017-10-04 13:31 | disposition home or self-care (01) | DRG 176 ==
LOC: ER 08:44 → ERHOLD 10:49 → IMCU 11:03
PROVIDERS: ADMIT Family Medicine; ATTEND Family Medicine
DX: I26.99 Other pulmonary embolism without acute cor pulmonale (principal); N17.9 Acute kidney failure, unspecified; R60.0 Localized edema; G24.9 Dystonia, unspecified; R01.1 Cardiac murmur, unspecified; I25.10 Atherosclerotic heart disease of native coronary artery without angina pectoris; Z95.1 Presence of aortocoronary bypass graft; F41.9 Anxiety disorder, unspecified; G20 Parkinson's disease; Z59.9 Problem related to housing and economic circumstances, unspecified; I12.9 Hypertensive chronic kidney disease with stage 1 through stage 4 chronic kidney disease, or unspecified chronic kidney disease; N18.3 Chronic kidney disease, stage 3 (moderate); R09.02 Hypoxemia
CPT/HCPCS: 36415; 71045; 71046; 76700; 80053; 80076; 81001; 82550; 82553; 84443; 84484; 85025; 85610; 85730; 93005; 96361; 96366; J1644; J2270; J7030; J7050

== ENCOUNTER 2017-10-08 14:48 | Inpatient (IN) | payer MEDICARE ==
[~2017-10-08] VITALS: Ht 198.1 cm; Wt 98.9 kg
--- OUTSIDE RECORDS SUMMARY | 2017-10-08 14:51 | XMS REPORT | Continuity of Care Document ---
Author Author [facility] Organization [facility] Address [address] [place] [address] Phone Unavailable Care Team Providers Care Pest Control Applicator Name Role Phone STEPAN PA M.D. PCP Insurance Providers Guarantor Duc Odell Address [address] [place] [address] Email [email or web address] Payer [facility] Policy Number [id number] Subscriber's Name Duc Odell Relationship 18 Self / Same As Patient Group Number PLAN N Effective Date 17 Payer Medicare A & B Policy Number [id number] Subscriber's Name Duc Odell Relationship 18 Self / Same As Patient Effective Date 11 Advance Directives Directive Response Recorded Date/Time Does the patient have an advance directive? No 09/30/17 1:31pm If yes, is advance directive on file with [facility]? No 09/30/17 1:31pm If not on file with [facility] will patient provide a copy? No 09/30/17 1:31pm Do you have a Directive to Physician? No 09/30/17 10:41am Do you have a Medical Power of Mat Linker? No 09/30/17 10:41am Do you have an out of hospital Do Not Resuscitate Order? No 09/30/17 10:41am Do you have any special needs we should be aware of? No 09/30/17 10:41am Do you have a support person here with you today? No 09/30/17 10:41am Did patient receive Notice of Privacy Practices? Yes 09/30/17 10:41am Did patient receive patient rights and responsibilities? Yes 09/30/17 10:41am Problems Medical Problem Onset Date Status Abdominal [...] Hours as needed for Pain Hydrocodone Bit/Acetaminophen ([place] 5-325 Tablet) 1 Each Tablet 1 Each [...] Onset Date Status Hx Psychiatric Problems No 09/30/2017 1:31pm Not Applicable Not Applicable Hx Eating Disorder No 09/30/2017 1:31pm Not Applicable Not Applicable Hx Substance Use Disorder No 09/30/2017 1:31pm Not Applicable Not Applicable Hx Depression No 09/30/2017 1:31pm Not Applicable Not Applicable Hx Alcohol Use No 09/30/2017 1:31pm Not Applicable Not Applicable Hx Substance Use Treatment No 09/30/2017 1:31pm Not Applicable Not Applicable Hx Physical Abuse No 09/30/2017 1:31pm Not Applicable Not Applicable Smoking Status Start Date Stop Date Unknown if ever smoked Hospital Discharge Instructions No hospital discharge instruction information available. Plan of Care Discharge Date 10/04/17 1:31pm Disposition HOME, SELF-CARE Instructions/Education Provided Pulmonary Embolism Prescriptions See Medication Section Additional Instructions/Education FOLLOW UP WITH DR. KENT Tuesday10/04/17 TO CHECK COUMADIN LEVELS. RESUME HEART HEALTHY DIET ACTIVITY TOLERATED. Functional Status Query Response Date Recorded FUNCTIONAL STATUS . October 03, 2017 4:50pm Ambulation Ability Independent September 30, 2017 12:23pm Toileting Ability Independent October 02, 2017 1:00pm Allergies, Adverse Reactions, Alerts Allergen Type Severity Reaction Status Last Updated Sulfa (Sulfonamide Antibiotics) Allergy Intermediate NAUSEA Active Immunizations No immunization information available. Vital Signs Acute Vital Signs Vital Response Date/Time Temperature (Fahrenheit) 96.9 degrees F (97.6 - 99.5) 10/04/2017 7:08am Pulse Pulse Rate (adult) 68 bpm (60 - 90) 10/04/2017 8:00am Respiratory Rate 18 bpm (12 - 24) 10/04/2017 8:00am Blood Pressure 96/73 mm Hg 10/04/2017 7:28am Height 6 ft 4 in 09/30/2017 8:56am Weight 201.38 lb 10/03/2017 12:42am Body Mass Index 24.5 kg/m^2 10/03/2017 5:00pm Results Laboratory Results Test Name Result Units Flags Reference Collection Date/Time Result Date/ Time Comments D-Dimer Quantitative (PE/DVT) 0.77 ug/mLFEU H 0.00-0.45 01/25/2017 3: 15pm 01/25/2017 3:45pm B-Type Natriuretic Peptide 17.7 pg/mL 0-100 01/25/2017 1:20pm 2016 2:11pm Amylase Level 45 U/L 25-125 06/11/2017 5:30pm 06/11/2017 6:34pm Lipase 4 U/L L 8-78 06/11/2017 5:30pm 06/11/2017 6:34pm Bedside Glucose 88 mg/dL 70-120 07/11/2017 11:51am 07/11/2017 12:03pm Meter ID: [id number] Triglycerides Level 128 MG/DL 0-149 07/10/2017 5:10am [...] H 3.9-4.7 07/10/2017 5:10am 07/10/2017 5: 56am White Blood Count 6.05 x10e3/uL 4.8-10.8 10/01/2017 5:45am 10/01/2017 6 :01am Red Blood Count 3.68 x10e6/uL L 4.3-5.7 10/01/2017 5:45am 10/01/2017 6: 01am Hemoglobin 11.1 g/dL L 14.0-18.0 10/01/2017 5:45am 10/01/2017 6:01am Hematocrit 35.3 % L 38.2-49.6 10/01/2017 5:45am 10/01/2017 6:01am Mean Corpuscular Volume 95.9 fL # 81-99 10/01/2017 5:45am 10/01/2017 6: 01am Mean Corpuscular Hemoglobin 30.2 pg 28-32 10/01/2017 5:45am 10/01/2017 6:01am Mean Corpuscular Hemoglobin Concent 31.4 g/dL 31-35 10/01/2017 5:45am 10/01/2017 6:01am Red Cell Distribution Width 16.5 % H 11.7-14.4 10/01/2017 5:45am 2017 6:01am Platelet Count 187 x10e3/uL 140-360 10/01/2017 5:45am 10/01/2017 6: 01am Neutrophils (%) (Auto) 70.3 % 38.7-80.0 10/01/2017 5:45am 10/01/2017 6: 01am Lymphocytes (%) (Auto) 18.5 % 18.0-39.1 10/01/2017 5:45am 10/01/2017 6: 01am Monocytes (%) (Auto) 8.1 % 4.4-11.3 10/01/2017 5:45am 10/01/2017 6: 01am Eosinophils (%) (Auto) 2.3 % 0.0-6.0 10/01/2017 5:45am 10/01/2017 6: 01am Basophils (%) (Auto) 0.5 % 0.0-1.0 10/01/2017 5:4510/01/2017 6:01am IM GRANULOCYTES % 0.3 % 0.0-1.0 10/01/2017 5:4510/01/2017 6:01am Neutrophils # (Auto) 4.3 2.1-6.9 10/01/2017 5:45am 10/01/2017 6:01am Lymphocytes # (Auto) 1.1 1.0-3.2 10/01/2017 5:4510/01/2017 6:01am Monocytes # (Auto) 0.5 0.2-0.8 10/01/2017 5:45am 10/01/2017 6:01am Eosinophils # (Auto) 0.1 0.0-0.4 10/01/2017 5:4510/01/2017 6:01am Basophils # (Auto) 0.0 0.0-0.1 10/01/2017 5:45am 10/01/2017 6:01am Absolute Immature Granulocyte (auto 0.02 x10e3/uL 0-0.1 10/01/2017 5: 4510/01/2017 6:01am Prothrombin Time 27.5 seconds H 11.9-14.5 10/04/2017 5:50am 10/04/2017 6 :40am Prothromb Time International Ratio 2.77 10/04/2017 5:50am 2017 6:40am Oral Anticoagulant Therapy INR Values: 1. Low Intensity Therapy 1.5 - 2.0 2. Moderate Intensity Therapy 2.0 - 3.0 3. High Intensity Therapy(1) 2.5 - 3.5 4. High Intensity Therapy(2) 3.0 - 4.0 5. Panic Value INR > 5.0 Activated Partial Thromboplast Time 68.9 seconds H 23.8-35.5 10/04/2017 5 :50am 10/04/2017 8:07am Urine Color YELLOW YELLOW 09/30/2017 9:04am 09/30/2017 10:32am Urine Clarity CLEAR CLEAR 09/30/2017 9:04am 09/30/2017 10:32am Urine Specific [place] 1.020 1.010-1.025 09/30/2017 9:04am 2017 10:32am Urine pH 5 5 - 7 09/30/2017 9:04am 09/30/2017 10:32am Urine Leukocyte Esterase NEGATIVE NEGATIVE 09/30/2017 9:04am 2017 10:32am Urine Nitrite NEGATIVE NEGATIVE 09/30/2017 9:04am 09/30/2017 10:32am Urine Protein NEGATIVE NEGATIVE 09/30/2017 9:04am 09/30/2017 10:32am Urine Glucose (UA) NEGATIVE NEGATIVE 09/30/2017 9:04am 09/30/2017 10: 32am Urine Ketones NEGATIVE NEGATIVE 09/30/2017 9:04am 09/30/2017 10:32am Urine Urobilinogen 0.2 mg/dL 0.2 - 1 09/30/2017 9:04am 09/30/2017 10: 32am Urine Bilirubin NEGATIVE NEGATIVE 09/30/2017 9:0409/30/2017 10: 32am Urine Blood NEGATIVE NEGATIVE 09/30/2017 9:04am 09/30/2017 10:32am Urine WBC NONE /HPF 0-5 09/30/2017 9:04am 09/30/2017 10:53am Urine RBC NONE /HPF 0-5 09/30/2017 9:04am 09/30/2017 10:53am Urine Bacteria NONE /HPF NONE 09/30/2017 9:04am 09/30/2017 10:53am Urine Epithelial Cells RARE /LPF NONE 09/30/2017 9:04am 09/30/2017 10: 53am Sodium Level 137 mmol/L 136-145 10/01/2017 5:45am 10/01/2017 6:34am Potassium Level 4.6 mmol/L 3.5-5.1 10/01/2017 5:45am 10/01/2017 6:34am Chloride Level 109 mmol/L H 98-107 10/01/2017 5:45am 10/01/2017 6:34am Carbon Dioxide Level 21 mmol/L L 22-29 10/01/2017 5:45am 10/01/2017 6: 34am Anion Gap 11.6 mmol/L 8-16 10/01/2017 5:45am 10/01/2017 6:34am Blood Urea Nitrogen 14 mg/dL 7-10/01/2017 5:45am 10/01/2017 6:34am Creatinine 1.18 mg/dL 0.72-1.25 10/01/2017 5:4510/01/2017 6:34am BUN/Creatinine Ratio 12 6-10/01/2017 5:45am 10/01/2017 6:34am Estimat Glomerular Filtration Rate > 60 ML/MIN 60- 10/01/2017 5:45am 6:34am Ranges were taken from the National Kidney Disease Education Program and the National Kid[employer] Foundation literature. Reference ranges: 60 or greater: Normal 16-59 (for 3 consecutive months): Chronic kidney disease 15 or less: Kidney failure Glucose Level 84 mg/dL 74-118 10/01/2017 5:4510/01/2017 6:34am Calcium Level 8.9 mg/dL 8.4-10.2 10/01/2017 5:4510/01/2017 6:34am Total Bilirubin 0.5 mg/dL 0.2-1.2 10/02/2017 5:4010/02/2017 10:38am Direct Bilirubin 0.2 mg/dL 0.0-0.5 10/02/2017 5:4010/02/2017 10: 38am Aspartate Amino Transf (AST/SGOT) 10 IU/L 5-34 10/02/2017 5:402017 10:38am Alanine Aminotransferase (ALT/SGPT) 9 IU/L 0-55 10/02/2017 5:40am 10/02 10:38am Total Protein 6.7 g/dL 6.5-8.1 10/02/2017 5:40am 10/02/2017 10:38am Albumin 3.3 g/dL L 3.5-5.0 10/02/2017 5:40am 10/02/2017 10:38am Globulin 3.3 g/dL 2.3-3.5 10/01/2017 5:45am 10/01/2017 6:34am Albumin/Globulin Ratio 0.9 0.8-2.0 10/01/2017 5:45am 10/01/2017 6: 34am Alkaline Phosphatase 108 IU/L 40-150 10/02/2017 5:40am 10/02/2017 10: 38am Creatine Kinase 24 IU/L L 30-200 10/01/2017 2:35am 10/01/2017 2:58am Creatine Kinase MB 1.70 ng/mL 0-5.0 10/01/2017 2:35am 10/01/2017 3: 17am Troponin I 0.028 ng/mL 0-0.300 10/01/2017 2:35am 10/01/2017 3:17am Thyroid Stimulating Hormone (TSH) 5.840 uIU/mL H 0.350-4.940 10/01/2017 5 :45am 10/01/2017 7:09am Procedures Procedure Status Date Provider(s) MEASURE OF CARDIAC SAMPL & PRESSURE, L HEART, PERC APPROACH Completed JOSIAH BAXTER MD FLUOROSCOPY OF MULT COR ART USING L OSM CONTRAST Completed 07/09/17 JOSIAH BAXTER MD FLUOROSCOPY OF LEFT HEART USING LOW OSMOLAR CONTRAST Completed 07/09/17 JOSIAH BAXTER MD Computed tomography of chest with contrast Active 01/25/17 YVETTE HERMAN MD Computed tomography of abdomen and pelvis with contrast Active 04/15/[address] of abdomen and pelvis without contrast Active 05/02/[address] of abdomen and pelvis without contrast Active 06/11/17 CAM ROSARIO SOLE LEVELER CT angiography of chest Active 07/10/17 MEGAN KENT MD Computed tomography of chest with contrast Active 09/28/17 MEGAN KENT MD X-ray of chest, two views Active 09/30/17 MIRANDA AARON NP US abdomen complete Active 10/03/[address] MD Encounters Encounter Location Arrival/Admit Date Discharge/Depart Date Attending Provider Discharged Inpatient [facility] 09/30/17 10:49am 1:31pm MOODY LANE MD Registered Clinic [facility] 09/28/17 4:04pm MEAGN KENT MD Discharged Inpatient [facility] 07/09/17 3:20pm 07/11/17 9:01pm MONIQUE THOMPSON MD Departed Emergency Room [facility] 06/11/17 12:53pm 06/11 9:25pm DAISY LUCIA MD Registered Emergency Room [facility] 05/02/17 3:27pm LISA HUNTER MD Departed Emergency Room [facility] 04/15/17 1:24am 6:57am KELY LESTER MD Departed Emergency Room [facility] 01/25/17 12:17pm 01/25 7:49pm YVETTE HERMAN MD Departed Emergency Room [facility] 12/26/16 5:20pm 6:55pm LISA HUNTER MD
[2017-10-08] MEDS ORDERED: ASPIRIN 81 MG CHEW TAB PO ONE ×2 (15:00→18:45)
[2017-10-08 15:25] LABS: BASOPHILS % 0.4 % (0.0-1.0); EOSINOPHILS # (AUTO) 0.1 (0.0-0.4); EOSINOPHILS % 1.3 % (0.0-6.0); HEMATOCRIT 40.6 % (38.2-49.6); HEMOGLOBIN 13.4 g/dL (14.0-18.0); LYMPHOCYTES # (AUTO) 1.2 (1.0-3.2); LYMPHOCYTES % 16.4 % (18.0-39.1); MONOCYTES # (AUTO) 0.7 (0.2-0.8); MONOCYTES % 8.8 % (4.4-11.3); NEUTROPHILS # (AUTO) 5.4 (2.1-6.9); NEUTROPHILS % 72.4 % (38.7-80.0); PLATELET COUNT 258 x10e3/uL (140-360); RED BLOOD COUNT 4.46 x10e6/uL (4.3-5.7); RED CELL DISTRIBUTION WIDTH 16.4 % (11.7-14.4)
[2017-10-08 15:37] LABS: INR 2.91; PROTHROMBIN TIME 28.6 seconds (11.9-14.5)
[2017-10-08 15:38] LABS: PARTIAL THROMBOPLASTIN TIME 44.9 seconds (23.8-35.5)
[2017-10-08 15:44] LABS: ALBUMIN 3.8 g/dL (3.5-5.0); ALBUMIN/GLOBULIN RATIO 0.9 (0.8-2.0); CALCIUM 9.8 mg/dL (8.4-10.2); CREATININE, SERUM 1.42 mg/dL (0.72-1.25); MAGNESIUM 1.8 MG/DL (1.3-2.1)
[2017-10-08] MEDS ORDERED: HYDROCODONE/APAP 10MG-325MG TAB PO ONE (16:00)
[2017-10-08 16:03] LABS: CREATINE KINASE MB 1.2 ng/mL (0-5.0); THYROID STIMULATING HORMONE 5.645 uIU/mL (0.350-4.940)
--- NOTE | 2017-10-08 16:30 | Diagnostic Imaging Report ---
EXAMINATION: CHEST SINGLE (PORTABLE) INDICATION: \S\ERMD ORDER \S\[id number] \S\1525 \S\Y COMPARISON: Chest radiograph 10/01/[address] 07/10/2017 FINDINGS: AP view TUBES and LINES: None. LUNGS: Lungs are well inflated. The right costophrenic sulcus is out of the field of view. Lungs are clear. There is no evidence of pneumonia or pulmonary edema. PLEURA: No pleural effusion or pneumothorax. HEART AND MEDIASTINUM: Tortuous aorta. The cardiomediastinal silhouette is unremarkable. BONES AND SOFT TISSUES: No acute osseous lesion. Median sternotomy wires. Soft tissues are unremarkable. UPPER ABDOMEN: No free air under the diaphragm. IMPRESSION: No acute thoracic abnormality. Signed by: DR. Jamel Jose MD on 10/08/2017 4:26 PM
[2017-10-08] MEDS ORDERED: SODIUM CHLORIDE 0.9% 1000ML 1,000 ML ONE (17:22)
[2017-10-08 17:59] LABS: BILIRUBIN,URINE NEGATIVE (NEGATIVE); CLARITY,URINE CLEAR (CLEAR); COLOR,URINE YELLOW (YELLOW); KETONES,URINE NEGATIVE (NEGATIVE); LEUKOCYTE ESTERASE ,URINE NEGATIVE (NEGATIVE); NITRITE,URINE NEGATIVE (NEGATIVE); PROTEIN,URINE DIPSTICK NEGATIVE (NEGATIVE); URINE UROBILINOGEN 1 mg/dL (0.2 - 1)
[2017-10-08 18:01] LABS: BACTERIA,URINE FEW /HPF; EPITHELIAL CELLS,URINE FEW /LPF; RBC,URINE 0-5 /HPF (0-5); WBC,URINE (MAN) 0-5 /HPF (0-5)
[2017-10-08] MEDS ORDERED: ONDANSETRON HCL 4 MG ORAL DISINTEGRATING TAB PO PRN (18:45)
[2017-10-08] MEDS ORDERED: ONDANSETRON HCL 4 MG ORAL DISINTEGRATING TAB PO ONE (19:30)
[2017-10-08] MEDS ORDERED: MORPHINE SULFATE 2 MG/ML SYR IV ONE (19:30)
[2017-10-08] MEDS ORDERED: HYDRALAZINE HCL 20 MG/ML VIAL ONE (20:58)
[2017-10-08] MEDS ORDERED: HYDRALAZINE HCL 20 MG/ML VIAL IV PRN (21:00)
[2017-10-08 22:15] VITALS: BP 137/89
[2017-10-09] VITALS: BP 127/78
[2017-10-09] MEDS ORDERED: WARFARIN SODIUM3 MG PO (00:15)
[2017-10-09] MEDS ORDERED: WARFARIN SOD 3 MG TAB PO SCH (00:22)
[2017-10-09] MEDS: MORPHINE SULFATE 2 MG/ML SYR IV PRN ×2 (01:03→09:47)
[2017-10-09 01:40] VITALS: BP 137/89
[2017-10-09 01:46] VITALS: BP 137/89
[2017-10-09 03:26] LABS: CREATINE KINASE MB 1.3 ng/mL (0-5.0)
[2017-10-09] MEDS ORDERED: PANTOPRAZOLE SO40 MG PO (03:39)
[2017-10-09] MEDS ORDERED: METOPROLOL TART25 MG PO (03:39)
[2017-10-09] MEDS ORDERED: CLOPIDOGREL75 MG PO (03:39)
[2017-10-09] MEDS ORDERED: ATORVASTATIN CA10 MG PO (03:39)
[2017-10-09] MEDS ORDERED: CYCLOBENZAPRINE HCL 10 MG TAB PO PRN (03:45)
[2017-10-09 04:00] VITALS: BP 123/62
[2017-10-09 07:09] LABS: BASOPHILS % 0.5 % (0.0-1.0); EOSINOPHILS # (AUTO) 0.1 (0.0-0.4); EOSINOPHILS % 2.6 % (0.0-6.0); HEMATOCRIT 37.9 % (38.2-49.6); LYMPHOCYTES % 18.1 % (18.0-39.1); MEAN CORPUSCULAR HEMOGLOBIN 30.1 pg (28-32); MEAN CORPUSCULAR HGB CONC 31.7 g/dL (31-35); MONOCYTES # (AUTO) 0.6 (0.2-0.8); MONOCYTES % 10.3 % (4.4-11.3); NEUTROPHILS # (AUTO) 3.7 (2.1-6.9); PLATELET COUNT 201 x10e3/uL (140-360); RED BLOOD COUNT 3.99 x10e6/uL (4.3-5.7); RED CELL DISTRIBUTION WIDTH 16.8 % (11.7-14.4)
[2017-10-09 07:37] LABS: CHOL/HDL RATIO 3.2 (3.9-4.7)
[2017-10-09 07:40] VITALS: BP 135/86
[2017-10-09 07:50] LABS: CREATINE KINASE MB 1.4 ng/mL (0-5.0)
[2017-10-09 08:11] LABS: BASOPHILS % 0.5 % (0.0-1.0); EOSINOPHILS # (AUTO) 0.1 (0.0-0.4); HEMATOCRIT 39.8 % (38.2-49.6); HEMOGLOBIN 12.5 g/dL (14.0-18.0); LYMPHOCYTES % 17.6 % (18.0-39.1); MEAN CORPUSCULAR HEMOGLOBIN 29.6 pg (28-32); MEAN CORPUSCULAR HGB CONC 31.4 g/dL (31-35); MEAN CORPUSCULAR VOLUME 94.3 fL (81-99); MONOCYTES # (AUTO) 0.6 (0.2-0.8); MONOCYTES % 9.5 % (4.4-11.3); NEUTROPHILS # (AUTO) 4.1 (2.1-6.9); NEUTROPHILS % 69.7 % (38.7-80.0); PLATELET COUNT 195 x10e3/uL (140-360); RED BLOOD COUNT 4.22 x10e6/uL (4.3-5.7); RED CELL DISTRIBUTION WIDTH 16.7 % (11.7-14.4)
[2017-10-09 08:19] LABS: INR 2.98; PROTHROMBIN TIME 29.1 seconds (11.9-14.5)
[2017-10-09 08:20] LABS: PARTIAL THROMBOPLASTIN TIME 49.8 seconds (23.8-35.5)
[2017-10-09 08:37] LABS: ALANINE AMINOTRANSFERASE 13 IU/L (0-55); ALBUMIN 3.3 g/dL (3.5-5.0); ALBUMIN/GLOBULIN RATIO 0.9 (0.8-2.0); ALKALINE PHOSPHATASE 100 IU/L (40-150); ANION GAP 11.7 mmol/L (8-16); BLOOD UREA NITROGEN 17 mg/dL (7-26); BUN/CREATININE RATIO 16 (6-25); CALCIUM 9.2 mg/dL (8.4-10.2); CARBON DIOXIDE 22 mmol/L (22-29); CHLORIDE 106 mmol/L (98-107); CREATININE, SERUM 1.07 mg/dL (0.72-1.25); EST GLOMERULAR FILTRATION RATE > 60 ML/MIN (60-); GLUCOSE 86 mg/dL (74-118); POTASSIUM 4.7 mmol/L (3.5-5.1); SODIUM 135 mmol/L (136-145)
[2017-10-09] MEDS ORDERED: PANTOPRAZOLE SOD 40 MG TABEC PO SCH (09:00)
[2017-10-09] MEDS ORDERED: METOPROLOL TARTRATE 25 MG TAB PO SCH (09:00)
[2017-10-09] MEDS ORDERED: CLOPIDOGREL BISULFATE 75 MG TAB PO SCH (09:30)
[2017-10-09] MEDS ORDERED: AMLODIPINE BESYLATE 10 MG TAB PO SCH (09:30)
[2017-10-09] MEDS ORDERED: HYDROCODONE/APAP 5MG-325MG TAB PO SCH (09:30)
[2017-10-09] MEDS ORDERED: ASPIRIN 81 MG CHEW TAB PO SCH (09:30)
[2017-10-09 10:13] VITALS: BP 135/86
[2017-10-09] MEDS ORDERED: ETODOLAC500 MG PO (13:54)
[2017-10-09] MEDS ORDERED: HYDROCODONE/APAP 5MG-325MG TAB PO PRN (14:00)
--- NOTE | 2017-10-09 16:43 | History and Physical ---
ADMISSION HISTORY AND PHYSICAL, SHORT STAY, AND DISCHARGE SUMMARY PRIMARY CARE PROVIDER: Not a local doctor. MANAGER LVN: Dr. Salcedo, who will be seeing the patient. CHIEF COMPLAINT: Chest pain. HISTORY OF PRESENT ILLNESS: Mr. Odell is a 72-year-old gentleman who had a recent coronary bypass surgery in July for triple vessel disease. He had a quadruple bypass in July of this year, 2 months ago. The patient was discharged on Eliquis for paroxysmal AFib; however, the patient could not get it due to expanse and he was seen here in the hospital a month ago with chest pain and had a CT scan that showed a pulmonary embolus. The patient was admitted, started on heparin, transitioned to Coumadin, and discharged home on Coumadin. He presents now again with chest pain that is atypical, pleuritic, and very reproducible with palpation of the left lower chest wall. REVIEW OF SYSTEMS: He denies fever, chills, or weight loss. He denies sinus congestion or sore throat. He has chest pain as noted above that is atypical without shortness of breath or diaphoresis. He has no shortness of breath, wheezing, or cough. He has no abdominal pain, nausea, vomiting, diarrhea, or melena. He has no dysuria or flank pain. Has no rash or pruritus. He has no bleeding or bruising. He has no headache, vertigo, or loss of consciousness. He has a history of dystonia. He has no depression, agitation, homicide or suicidal ideation. PAST MEDICAL HISTORY: Significant for longstanding hypertension. He has coronary artery disease and has had recent bypass surgery 2 months ago 4-vessel bypass. He had a PE diagnosed less than a month ago. He is now on Coumadin and he has a longstanding history of dystonia. MEDICATIONS: His regular medications include; 1. Omeprazole 40 mg daily. 2. Amlodipine and benazepril 10/40 daily. 3. Aspirin 81 mg daily. 4. Lipitor 10 mg at bedtime. 5. Plavix 75 mg daily. 6. Flexeril as needed. 7. Hydrocodone as needed. 8. Metoprolol 25 mg twice daily. 9. Protonix 40 mg daily. 10. Coumadin 3 mg daily. ALLERGIES: HE HAS A STATED ALLERGY TO SULFA. FAMILY HISTORY: Significant for hypertension and COPD. SOCIAL HISTORY: The patient is . Macedonian is his primary language. He does not smoke, drink, or use illegal drugs and he is generally independently functioning. SURGICAL HISTORY: The patient had a CABG done 2 months ago and he has a distant history of cholecystectomy. PHYSICAL EXAMINATION PSYCHIATRIC: He is alert and oriented x3 with normal mood and affect. CONSTITUTIONAL: He has a normal body habitus. He is in no acute distress. VITAL SIGNS: Blood pressure 135/86, pulse 66 and regular, respiratory rate 22, O2 sat 97%, temperature 97.9. HEENT: His head is atraumatic. His eyes are anicteric with clear conjunctivae. Ears and nares are without erythema or discharge. Oropharynx is clear. NECK: Supple with no mass or thyromegaly. LYMPHATIC SYSTEM: He has no palpable cervical, axillary, or inguinal adenopathy. CARDIOVASCULAR: His heart has a regular rate rhythm without murmur or extra heart sound. He has no carotid bruit. Has no peripheral edema. He has palpable dorsal pedal pulses. He has a well healed sternotomy scar from his recent CABG. RESPIRATORY: Lungs are clear to auscultation and percussion with normal respiratory effort. He has palpable chest wall tenderness at the left lower costochondral junction on the left anterolateral chest wall. Marked tenderness to palpation. GASTROINTESTINAL: His abdomen is soft without organomegaly, masses, or tenderness. He has normal bowel sounds present. CUTANEOUS: His skin is warm and dry to touch with no rash or skin breakdown. MUSCULOSKELETAL: His joints are in normal alignment without erythema or swelling. He has no calf tenderness. NEUROLOGIC: Nonfocal with intact cranial nerves and no motor or sensory deficits. He has definite dystonia. DIAGNOSTIC STUDIES: Chest x-ray shows no acute disease. His EKG shows normal sinus rhythm with left axis deviation and what appears to be an old anterolateral infarct. His CBC shows a white count of 5.92 with a normal differential, hemoglobin 12.5, hematocrit 39.8, and platelets count 195,000. His pro-time is 29.1 with an INR of 2.98 and PTT 49.8. His chemistry shows normal electrolytes, CO2 of 22, creatinine 1.07, BUN 17 for a normal GFR, glucose is 86, calcium is 9.2. Transaminases, bilirubin, and alk phos are normal. His BNP is 137.9. His troponin is 0.013, 0.014, and 0.005. Cholesterol 117, triglycerides 77, HDL 37, LDL 65, and his TSH is 5.64. IMPRESSION AND PLAN 1. Chest pain, rule out acute coronary syndrome. Patient's cardiac enzymes are negative so far. His EKG does not show acute changes. His chest pain is atypical and reproducible with palpation of the left lower rib cage. The patient will be started on anti-inflammatory and pain medication. 2. Hypertension with coronary artery disease with a history of recent coronary artery bypass graft 2 months ago. The patient's blood pressure is controlled and stable. We will continue his metoprolol, Norvasc, aspirin, Plavix, and Lipitor. 3. Recent pulmonary embolus. The patient is subtherapeutic on his Coumadin. We will continue 3 mg daily. 4. Dystonia. We will monitor and provide supportive care. HOSPITAL COURSE: The patient admitted to the floor overnight. Serial enzymes were negative. His chest pain quite atypical in nature. He was seen by cardiology, who felt that the patient could be discharged safely. He will be discharged home to resume a cardiac diet, to resume all of his regular medications including his Coumadin 3 mg daily. He will also be given a prescription for etodolac 500 mg twice daily, which will not interfere with his aspirin and Narco 5 mg as needed for pain. He is to follow up with cardiology this week for an echocardiogram and he is to follow up with his PCP within 2 weeks for routine followup. He can resume activity as tolerated and a regular diet. Job#: [id number] MIKE
--- NOTE | 2017-10-09 16:56 | Consultation ---
DATE OF CONSULTATION: CARDIOLOGY CONSULTATION CONSULTING PHYSICIAN: Dr. Weston. REASON FOR CONSULTATION: Chest pain. HISTORY OF PRESENT ILLNESS: Mr. Odell is a 72-year-old gentleman who is well known to our practice and recently had coronary artery disease and coronary artery bypass surgery in June 2017. He also ended up to be readmitted recently on the 30 of September with shortness of breath and was found to have a pulmonary emboli and is currently anticoagulated on warfarin. He came in yesterday due to ongoing constant chest pain on his left side for the last 4 days. He states that pain is an ache that is constant and does not get worse with deep breath or upon exertion. He states that since admission this pain is improved with morphine. However, on assessment, pain was reproduced with palpation of that area. He denies any shortness of breath, palpitations, edema, orthopnea, PND, lightheadedness, or syncope. REVIEW OF SYSTEMS: Negative except as mentioned above. PAST MEDICAL HISTORY: Hypertension and Parkinson's disease. PAST SURGICAL HISTORY 1. Cholecystectomy. 2. Umbilical hernia surgery. 3. Back surgery. FAMILY HISTORY: Noncontributory. SOCIAL HISTORY: He denies tobacco or illicit drug use. He does endorse alcohol drinking occasionally. CARDIOVASCULAR MEDICATIONS: Plavix 75 mg p.o. daily, metoprolol 25 p.o. b.i.d., warfarin 3 mg p.o. daily, and hydralazine 10 mg q.6h. p.r.n. for high blood pressure, amlodipine 10 mg p.o. daily, aspirin 81 p.o. daily, and atorvastatin 10 p.o. daily. LABORATORY AND DIAGNOSTIC DATA: WBC 5.92, hemoglobin 12.5, hematocrit 39.8, and platelets 195. Sodium 135, potassium 4.7, BUN 17, creatinine 1.07, and calcium 9.2. CK-MB 1.40 and troponin 0.14. LDL 65. Chest x-ray from yesterday with no acute thoracic abnormalities. PHYSICAL EXAMINATION VITAL SIGNS: Temperature 97.9, pulse 66, respiratory rate 20, blood pressure 109/64, and oxygen saturation 97% on 3 liters nasal cannula. GENERAL: Alert and oriented x3, resting comfortably in bed, does not appear to be in acute distress. NECK: Supple. No JVD noted. LUNGS: Clear to auscultation throughout. No wheezing. No rhonchi or crackles. CARDIOVASCULAR: Regular rate and rhythm. No murmurs. No gallops. Normal S1 and S2. ABDOMEN: Rounded, soft, and nontender. EXTREMITIES: Lower extremities, no edema. Pedal pulses 1+. TELEMETRY: Sinus rhythm. IMPRESSION 1. Coronary artery disease status post coronary bypass graft. 2. Recent pulmonary emboli. 3. Atypical chest pain. 4. Hypertension. 5. Parkinson's disease. RECOMMENDATIONS: Cardiac enzymes so far have been negative, and acute coronary syndrome has been ruled out. Chest pain likely to be musculoskeletal since reproducible upon palpation. We will repeat echocardiogram to rule out any other complication post bypass graft. Otherwise, plan is to discharge patient home for pain management. Continue to maintain on telemetry. Continue the above-listed cardiac medications. INR therapeutic at 2.98 today. We will continue the same dose of warfarin. Thank you for this consultation. We will continue to follow patient very closely. Dictated by: Esther Crowell NP Job#: [id number] GUANA[place]
[2017-10-09] MEDS ORDERED: ATORVASTATIN 10 MG TAB PO SCH (21:00)
== END 2017-10-09 15:10 | disposition home or self-care (01) | DRG 313 ==
LOC: ER 14:48 → ERHOLD 19:08 → MED/SURG 21:39
PROVIDERS: ADMIT Internal Medicine; ATTEND Internal Medicine
DX: R07.89 Other chest pain (principal); I26.99 Other pulmonary embolism without acute cor pulmonale; I25.10 Atherosclerotic heart disease of native coronary artery without angina pectoris; Z95.1 Presence of aortocoronary bypass graft; Z79.01 Long term (current) use of anticoagulants; G20 Parkinson's disease; I48.0 Paroxysmal atrial fibrillation; I10 Essential (primary) hypertension; G24.9 Dystonia, unspecified; Z86.711 Personal history of pulmonary embolism
CPT/HCPCS: 99284; J0360; J2270; J7030

== ENCOUNTER 2017-11-02 15:14 | Emergency (ER) | payer MEDICARE ==
[~2017-11-02] VITALS: Ht 198.1 cm; Wt 98.9 kg
[~2017-11-02 15:14] MED LIST changes: +ATORVASTATIN CA10 MG PO; +CLOPIDOGREL75 MG PO; +ETODOLAC500 MG PO; +METOPROLOL TART25 MG PO; +WARFARIN SODIUM3 MG PO
[2017-11-02] MEDS ORDERED: ASPIRIN 81 MG CHEW TAB PO ONE (16:00)
--- NOTE | 2017-11-02 17:30 | Diagnostic Imaging Report ---
PROCEDURE: A single AP view of the chest. COMPARISON: Chest 10/08/2017 INDICATIONS: SHORTNESS OF BREATH FINDINGS: Lines/tubes: None. Lungs: The lungs are well inflated. Mild biapical scarring. There is no evidence of pneumonia or pulmonary edema. Pleura: There is no pleural effusion or pneumothorax. Heart and mediastinum: Tortuous aorta. The heart and the mediastinum are otherwise unremarkable. Bones: No acute bony abnormality. Median sternotomy wires. IMPRESSION: No acute cardiopulmonary disease. Dictated by: Jamel Joes M.D. on 11/02/2017 at 17:33 Electronically approved by: Jamel Jose M.D. on 11/02/2017 at 17:33
[2017-11-02 17:49] LABS: BILIRUBIN,URINE NEGATIVE (NEGATIVE); CLARITY,URINE CLEAR (CLEAR); COLOR,URINE YELLOW (YELLOW); KETONES,URINE NEGATIVE (NEGATIVE); LEUKOCYTE ESTERASE ,URINE NEGATIVE (NEGATIVE); NITRITE,URINE NEGATIVE (NEGATIVE); PROTEIN,URINE DIPSTICK NEGATIVE (NEGATIVE); URINE UROBILINOGEN 0.2 mg/dL (0.2 - 1)
[2017-11-02 18:12] LABS: MUCUS,URINE FEW (RARE); RBC,URINE 0-5 /HPF (0-5); WBC,URINE (MAN) 0-5 /HPF (0-5)
[2017-11-02 18:17] LABS: BASOPHILS % 0.6 % (0.0-1.0); EOSINOPHILS # (AUTO) 0.1 (0.0-0.4); HEMATOCRIT 44.9 % (38.2-49.6); HEMOGLOBIN 14.8 g/dL (14.0-18.0); LYMPHOCYTES # (AUTO) 1.1 (1.0-3.2); MEAN CORPUSCULAR HEMOGLOBIN 29.5 pg (28-32); MEAN CORPUSCULAR VOLUME 89.6 fL (81-99); MONOCYTES # (AUTO) 0.6 (0.2-0.8); MONOCYTES % 8.9 % (4.4-11.3); NEUTROPHILS # (AUTO) 5.3 (2.1-6.9); NEUTROPHILS % 73.2 % (38.7-80.0); PLATELET COUNT 258 x10e3/uL (140-360); RED BLOOD COUNT 5.01 x10e6/uL (4.3-5.7); RED CELL DISTRIBUTION WIDTH 16.1 % (11.7-14.4)
[2017-11-02 18:25] LABS: INR 1.79; PROTHROMBIN TIME 19.5 seconds (11.9-14.5)
[2017-11-02 18:26] LABS: PARTIAL THROMBOPLASTIN TIME 32.7 seconds (23.8-35.5)
[2017-11-02 18:37] LABS: ALANINE AMINOTRANSFERASE 19 IU/L (0-55); ALBUMIN 3.9 g/dL (3.5-5.0); ALBUMIN/GLOBULIN RATIO 0.9 (0.8-2.0); ALKALINE PHOSPHATASE 145 IU/L (40-150); ANION GAP 15.6 mmol/L (8-16); BLOOD UREA NITROGEN 16 mg/dL (7-26); BUN/CREATININE RATIO 11 (6-25); CALCIUM 10.1 mg/dL (8.4-10.2); CARBON DIOXIDE 23 mmol/L (22-29); CHLORIDE 106 mmol/L (98-107); CREATINE KINASE 34 IU/L (30-200); CREATININE, SERUM 1.46 mg/dL (0.72-1.25); EST GLOMERULAR FILTRATION RATE 48 ML/MIN (60-); GLUCOSE 105 mg/dL (74-118); MAGNESIUM 1.7 MG/DL (1.3-2.1); POTASSIUM 4.6 mmol/L (3.5-5.1); SODIUM 140 mmol/L (136-145)
[2017-11-02 18:56] LABS: THYROID STIMULATING HORMONE 6.577 uIU/mL (0.350-4.940)
[2017-11-02] MEDS ORDERED: MORPHINE SULFATE INJ 4 MG/ML INJ IV PRN (19:30)
[2017-11-02] MEDS ORDERED: ONDANSETRON HCL INJ 2 MG/ML VIAL IV STA (19:30)
[2017-11-02] MEDS ORDERED: MORPHINE SULFATE 2 MG/ML SYR IV PRN (19:45)
[2017-11-02] MEDS ORDERED: KETOROLAC TROMETHAMINE 30 MG/ML VIAL IV STA (22:27)
[2017-11-02] MEDS ORDERED: HYDRALAZINE HCL 20 MG/ML VIAL IV ONE (23:15)
== END 2017-11-03 00:17 | disposition home or self-care (01) ==
LOC: ER 15:14
DX: R07.89 Other chest pain (principal); M94.0 Chondrocostal junction syndrome [Tietze]; I10 Essential (primary) hypertension; I25.10 Atherosclerotic heart disease of native coronary artery without angina pectoris; I51.9 Heart disease, unspecified
CPT/HCPCS: 36415; 71045; 80053; 81001; 82550; 82553; 83735; 83880; 84443; 84484; 85025; 85610; 85730; 87086; 93005; 99284; J0360; J2270; J2405

== ENCOUNTER 2017-11-09 15:06 | Inpatient (IN) | payer MEDICARE ==
[~2017-11-09] VITALS: Ht 198.1 cm; Wt 99.4 kg
[2017-11-09] MEDS ORDERED: ASPIRIN 81 MG CHEW TAB PO ONE (16:00)
[2017-11-09 16:01] LABS: BASOPHILS % 0.6 % (0.0-1.0); EOSINOPHILS # (AUTO) 0.1 (0.0-0.4); EOSINOPHILS % 0.7 % (0.0-6.0); HEMATOCRIT 44.1 % (38.2-49.6); HEMOGLOBIN 14.8 g/dL (14.0-18.0); LYMPHOCYTES # (AUTO) 1.3 (1.0-3.2); LYMPHOCYTES % 18.1 % (18.0-39.1); MEAN CORPUSCULAR HEMOGLOBIN 29.8 pg (28-32); MEAN CORPUSCULAR HGB CONC 33.6 g/dL (31-35); MEAN CORPUSCULAR VOLUME 88.9 fL (81-99); MONOCYTES # (AUTO) 0.4 (0.2-0.8); MONOCYTES % 6.1 % (4.4-11.3); NEUTROPHILS # (AUTO) 5.2 (2.1-6.9); NEUTROPHILS % 73.8 % (38.7-80.0); PLATELET COUNT 258 x10e3/uL (140-360); RED BLOOD COUNT 4.96 x10e6/uL (4.3-5.7)
[2017-11-09 16:05] LABS: INR 1.49; PROTHROMBIN TIME 16.9 seconds (11.9-14.5)
[2017-11-09 16:06] LABS: PARTIAL THROMBOPLASTIN TIME 27.5 seconds (23.8-35.5)
[2017-11-09] MEDS ORDERED: MORPHINE SULFATE 2 MG/ML SYR IV STA ×2 (16:08→17:49)
[2017-11-09 16:13] LABS: ALBUMIN 3.8 g/dL (3.5-5.0); ALBUMIN/GLOBULIN RATIO 0.9 (0.8-2.0); ANION GAP 19.8 mmol/L (8-16); CALCIUM 9.7 mg/dL (8.4-10.2); CREATININE, SERUM 1.54 mg/dL (0.72-1.25); POTASSIUM 3.8 mmol/L (3.5-5.1)
--- NOTE | 2017-11-09 16:19 | Diagnostic Imaging Report ---
PROCEDURE: A single AP view of the chest. COMPARISON: Chest radiograph 11/02/2017 INDICATIONS: SHORTNESS OF BREATH FINDINGS: Lines/tubes: None. Lungs: The lungs are well inflated. Upper lobe pleuroparenchymal scarring. There is no evidence of pneumonia or pulmonary edema. Pleura: There is no pleural effusion or pneumothorax. Heart and mediastinum: The heart and the mediastinum are unremarkable. Bones: No acute bony abnormality. Median sternotomy wires. IMPRESSION: No acute cardiopulmonary disease. Dictated by: Jamel Jose M.D. on 11/09/2017 at 16:23 Electronically approved by: Jamel Jose M.D. on 11/09/2017 at 16:23
[2017-11-09 16:21] LABS: CREATINE KINASE MB 1.1 ng/mL (0-5.0)
[2017-11-09 17:07] LABS: ABG HCO3 20 mmol/L (23-28); ABG PCO2 31 mmHg (41-51); ABG PH 7.41 (7.31-7.41); ABG PO2 56 mmHg (80-105)
[2017-11-09] MEDS ORDERED: HEPARIN SOD (PORCINE) 5,000 UNIT/ML VIAL IV ONE (18:00)
[2017-11-09] MEDS ORDERED: HEPARIN 25,000U/0.45% NS 250ML 1,500 UNIT in SODIUM CHLORIDE 0.9% 250ML 0 ML IV SCH (18:00)
[2017-11-09 19:33] VITALS: BP 156/103
[2017-11-09 22:16] VITALS: BP 156/103
[2017-11-09] MEDS: MORPHINE SULFATE 2 MG/ML SYR IV PRN (23:43)
[2017-11-10 00:19] LABS: CREATINE KINASE MB 1.3 ng/mL (0-5.0)
[2017-11-10] MEDS ORDERED: HYDRALAZINE HCL 20 MG/ML VIAL IV PRN (00:45)
[2017-11-10 01:32] VITALS: BP 156/103
[2017-11-10] MEDS: LABETALOL HCL 5 MG/ML 20ML VIAL IV PRN ×2 (01:59→13:00)
[2017-11-10] MEDS: MORPHINE SULFATE 2 MG/ML SYR IV PRN ×2 (06:27→20:47)
[2017-11-10] MEDS ORDERED: WARFARIN SODIU2.5 MG PO (06:43)
[2017-11-10 06:52] LABS: CREATINE KINASE MB 1.3 ng/mL (0-5.0)
[2017-11-10 08:00] VITALS: BP 134/99
[2017-11-10] MEDS ORDERED: HYDROCODONE/APAP 5MG-325MG TAB PO PRN (10:15)
[2017-11-10] MEDS: ONDANSETRON HCL INJ 2 MG/ML VIAL IV PRN ×2 (11:32→20:47)
[2017-11-10 12:00] VITALS: BP 145/75
[2017-11-10 13:12] VITALS: BP 145/109
[2017-11-10 16:00] VITALS: BP 92/76
--- NOTE | 2017-11-10 16:05 | Diagnostic Imaging Report ---
Ventilation/perfusion lung scan Clinical Information: 72 M with SOB and chest pain Comparison: Chest radiograph 11/09/2017 Discussion: Xenon-133 gas 9.2 mCi was administered via inhalation. Dynamic images of the lungs in the posterior projection were obtained through single breath, equilibrium, and washout phases. Distribution of tracer activity is irregular throughout the lungs. There are no segmental ventilatory defects. Washout of tracer is diffusely delayed with no air trapping. Perfusion images of the lungs were obtained in multiple projections following intravenous administration of approximately 6.0 mCi of Tc-99m MAA. Distribution of tracer is irregular throughout the lungs. The contours of the lungs are well demarcated. There are no segmental perfusion defects of any size. The cardiomediastinal silhouette is unremarkable. Impression: Scan findings represent a VERY LOW probability for acute pulmonary embolic disease based on the PIOPED II criteria. Scan evidence of diffuse parenchymal and/or obstructive lung disease obstructive lung disease. Signed by: Dr. Paulette Hauser M.D. on 11/10/2017 4:02 PM
[2017-11-10] MEDS: WARFARIN SOD 3 MG TAB PO SCH (16:55)
[2017-11-10] MEDS: METOPROLOL TARTRATE 25 MG TAB PO SCH (17:00)
[2017-11-10 19:18] LABS: INR 1.62; PROTHROMBIN TIME 18.1 seconds (11.9-14.5)
--- NOTE | 2017-11-10 19:58 | Consultation ---
DATE OF CONSULTATION: November 10, 2017 REQUESTING PHYSICIAN: Dr. Jazzy England. REASON FOR CONSULTATION: Chest pain. HISTORY OF PRESENT ILLNESS: This is a 72-year-old man with history of coronary artery disease status post recent CABG, recently diagnosed pulmonary embolism, hypertension and chronic kidney disease who presented with complaints of chest pain and shortness of breath. The patient reports he had chest pressure across his upper chest radiating to the back starting around midnight yesterday morning. The pain was associated with shortness of breath and was 8/10 in severity. This lasted several hours without improvement so he presented to the ER for further evaluation. On arrival, he was found to have an INR of 1.49 with an elevated D-dimer at 1.6 as well as an elevated BNP at 113. Chest x-ray did not demonstrate any acute cardiopulmonary disease. The patient was admitted for further evaluation. He was started on heparin drip due to his subtherapeutic INR. Cardiology is consulted for further evaluation. PAST MEDICAL HISTORY: 1. Coronary artery disease, status post recent Non-ST elevation myocardial infarction with recent CABG, ORTIZ to LAD, SVG to diagonal, SVG to OM, SVG to PDA on 07/05/17. 2. Chronic kidney disease. 3. Recently diagnosed pulmonary hypertension. 4. Paroxysmal atrial fibrillation, not on anticoagulation due to GI bleeding. 5. Hypertension. 6. Chronic kidney disease. PAST SURGICAL HISTORY: CABG, umbilical hernia surgery, back surgery. ALLERGIES: PLEASE SEE EMR. MEDICATIONS: Please see medication list. SOCIAL HISTORY: No tobacco or illicit drugs. Occasional alcohol. FAMILY HISTORY: Noncontributory. PHYSICAL EXAMINATION VITAL SIGNS: Temperature 97.9 degrees, pulse 69, respiratory rate 19, blood pressure 92/76, oxygen saturation 95%. GENERAL: A well-nourished, well-developed man in no acute distress, awake and alert. HEENT: Normocephalic, atraumatic. Pupils are equal. No scleral icterus. NECK: Supple. No thyromegaly or cervical lymphadenopathy. No carotid bruits. LUNGS: Clear to auscultation bilaterally. No wheezes or crackles. CARDIOVASCULAR: Normal rate, regular rhythm. No murmurs. Normal S1 and S2. CHEST: Sternotomy incision is healing well. ABDOMEN: Soft and nontender. EXTREMITIES: No edema. NEUROLOGIC: Contracture of the neck is noted. LABORATORY DATA: Troponin 0.006. VQ scan findings represent a very low probability for acute pulmonary embolic disease based on the Pioped II criteria. Evidence of diffuse parenchymal and/or obstructive lung disease. IMPRESSION 1. Chest pain. 2. Coronary artery disease, status post recent 4-vessel coronary artery bypass graft in 06/2017. 3. Recently diagnosed pulmonary embolism. 4. Chronic kidney disease. 5. Paroxysmal atrial fibrillation. 6. Hypertension. 7. Parkinson disease. RECOMMENDATIONS: The patient ruled out for myocardial infarction with serial cardiac biomarkers. Resume heparin drip. He has had difficulty maintaining therapeutic INR. We will evaluate if Xarelto may be an option instead. Check orthostatic vitals. Continue current cardiac medications other than antihypertensive therapy given his labile blood pressure with episodes of hypotension. Thank you for this consult. We will continue to follow. Job#: [id number] GH MTDD
[2017-11-10 20:42] VITALS: BP 117/98
[2017-11-10] MEDS: ATORVASTATIN 10 MG TAB PO SCH (20:48)
[2017-11-10] MEDS: HEPARIN 25,000U/0.45% NS 250ML 1,500 UNIT in SODIUM CHLORIDE 0.9% 250ML 0 ML IV SCH (22:24)
[2017-11-11] VITALS (15 sets, daily range): BP systolic 96–152; BP diastolic 71–98
[2017-11-11] MEDS: MORPHINE SULFATE 2 MG/ML SYR IV PRN ×4 (04:07→23:08)
[2017-11-11] MEDS: ASPIRIN 81 MG CHEW TAB PO SCH (08:56)
[2017-11-11] MEDS: CLOPIDOGREL BISULFATE 75 MG TAB PO SCH (08:57)
[2017-11-11] MEDS: PANTOPRAZOLE SOD 40 MG TABEC PO SCH (08:57)
[2017-11-11] MEDS: METOPROLOL TARTRATE 25 MG TAB PO SCH ×2 (08:57→17:39)
--- NOTE | 2017-11-11 10:59 | Discharge Summary ---
Mr. Odell is a 72-year-old man with a history of coronary artery disease, status post CABG earlier this year. Apparently, history of pulmonary embolism, hypertension, chronic kidney disease, came to the emergency room complaining of chest pain and shortness of breath. He has been evaluated by [employer]. His INR has been apparently subtherapeutic at the present time. PHYSICAL EXAMINATION GENERAL: The patient is awake and alert. He states some times he gets chest pain. VITALS: Temperature is 96.5, blood pressure 152/97. HEART: Regular rate. LUNGS: Clear to auscultation. ABDOMEN: Soft. BLOOD WORK: Potassium is 3.8, creatinine 1.54, glucose 190. White count is 7, hemoglobin 14.8, hematocrit 44.1. Had a V/Q scan done yesterday that shows very low probability of acute pulmonary embolus. Chest x-ray done on admission shows no acute cardiopulmonary disease. ASSESSMENT AND PLAN 1. Chest pain. 2. Coronary artery disease, status post coronary artery bypass graft in early 2018. 3. History of pulmonary embolism. 4. Chronic kidney disease. 5. Paroxysmal atrial fibrillation. 6. Hypertension. 7. Parkinson disease. PLAN: At the present time with this patient is all the workup has been so far negative. What we have to discuss is his anticoagulation medication. If it is an option, Xarelto probably will be an option for him. All the workup like I said has been negative. If it is okay with [employer], probably the patient will be able to go home today or tomorrow depending on the decision regarding anticoagulation. All of this was discussed with the patient. All questions were answered to satisfaction. Please see home medication reconciliation list. SHYLA GUAN MD Job#: [id number] [place]
[2017-11-11 16:50] LABS: INR 1.65; PROTHROMBIN TIME 18.3 seconds (11.9-14.5)
[2017-11-11 16:58] LABS: ANION GAP 11.8 mmol/L (8-16); CALCIUM 9.2 mg/dL (8.4-10.2); CREATININE, SERUM 1.2 mg/dL (0.72-1.25); POTASSIUM 4.8 mmol/L (3.5-5.1)
[2017-11-11] MEDS: WARFARIN SOD 3 MG TAB PO SCH (17:00)
--- NOTE | 2017-11-11 17:06 | Progress Note ---
DATE: November 11, 2017 CARDIOLOGY PROGRESS NOTE SUBJECTIVE: The patient denies chest pain or shortness of breath per discussion with nursing staff. Patient apparently has not had consistency in his diet and has had varying amounts of vitamin K. OBJECTIVE VITAL SIGNS: Temperature 96.5 degrees, pulse 80, respiratory rate 19, blood pressure 130/84. Oxygen saturation 90% on room air. GENERAL: Awake, alert, in no acute distress. LUNGS: Clear to auscultation bilaterally. No wheezes or crackles. CARDIOVASCULAR: Normal rate, regular rhythm. No murmur. Normal S1, S2. ABDOMEN: Soft, nontender. EXTREMITIES: No edema. Contracture of the neck is noted. CARDIAC MEDICATIONS 1. Metoprolol tartrate 12.5 mg p.o. b.i.d. 2. Plavix 75 mg p.o. daily. 3. Aspirin 81 mg p.o. daily. 4. Atorvastatin 10 mg p.o. nightly. 5. Warfarin 3 mg p.o. daily. LABS: None today. TELEMETRY: Normal sinus rhythm. IMPRESSION 1. Chest pain. 2. Coronary artery disease status post recent 4-vessel coronary artery bypass graft 06/2017. 3. Recently diagnosed pulmonary embolism. 4. Chronic kidney disease. 5. Paroxysmal atrial fibrillation. 6. Hypertension. 7. Parkinson's disease. RECOMMENDATIONS: The patient ruled out for a myocardial infarction with serial cardiac biomarkers. He is currently on heparin drip in attempt to bridge therapeutic INR. It appears he has not been able to maintain therapeutic INR due to inconsistency in his diet. We are attempting to determine if Xarelto may be an option for him instead. Continue current cardiac medications. Check orthostatic vitals. Thank you for this consult. We will continue to follow. Job#: [id number] [place]
[2017-11-11] MEDS ORDERED: BISACODYL 5 MG TAB EC PO ONE (20:00)
[2017-11-11] MEDS ORDERED: WARFARIN SOD 3 MG TAB PO SCH (20:15)
[2017-11-11] MEDS: WARFARIN SOD 5 MG TAB PO SCH (20:23)
[2017-11-11] MEDS: ATORVASTATIN 10 MG TAB PO SCH (20:23)
[2017-11-12] VITALS (8 sets, daily range): BP systolic 115–140; BP diastolic 76–91
[2017-11-12] MEDS: HEPARIN 25,000U/0.45% NS 250ML 1,500 UNIT in SODIUM CHLORIDE 0.9% 250ML 0 ML IV SCH (02:15)
[2017-11-12] MEDS: ASPIRIN 81 MG CHEW TAB PO SCH (08:34)
[2017-11-12] MEDS: METOPROLOL TARTRATE 25 MG TAB PO SCH ×2 (08:36→16:55)
[2017-11-12] MEDS: PANTOPRAZOLE SOD 40 MG TABEC PO SCH (08:36)
[2017-11-12] MEDS: CLOPIDOGREL BISULFATE 75 MG TAB PO SCH (08:36)
[2017-11-12] MEDS: MORPHINE SULFATE 2 MG/ML SYR IV PRN ×2 (10:30→14:59)
--- NOTE | 2017-11-12 11:20 | Progress Note ---
DATE: November 12, 2017 CARDIOLOGY PROGRESS NOTE SUBJECTIVE: Patient complains of occasional chest pain, which is worse upon palpation of his chest. Denies any shortness of breath. OBJECTIVE VITAL SIGNS: Temperature 97.9, pulse 68, respiratory rate 22. Blood pressure 121/76. Oxygen saturation 94% on room air. CARDIOVASCULAR MEDICATIONS 1. Metoprolol 12.5 mg p.o. b.i.d. 2. Plavix 75 p.o. daily. 3. Aspirin 81 p.o. daily. 4. Heparin IV drip. 5. Warfarin 5 mg p.o. daily. 6. Atorvastatin 10 mg p.o. daily. 7. Labetalol 20 mg IV q.12 h. p.r.n. for hypertension. LABS: PTT 81.1. TELEMETRY: Sinus rhythm. PHYSICAL EXAMINATION GENERAL: Alert and oriented times 3, resting comfortably in bed, does not appear to be in any acute distress. LUNGS: Diminished breath sounds in anterior and posterior lower lobes, otherwise clear to auscultation. No wheezing, rhonchi or crackles noted. CARDIOVASCULAR: Regular rate and rhythm. No murmur. Normal S1 and S2. ABDOMEN: Rounded, soft, nontender. LOWER EXTREMITIES: No edema. IMPRESSION 1. Chest pain. 2. Coronary artery disease, status post recent 4-vessel coronary artery bypass grafting in June 2017. 3. Recently diagnosed pulmonary emboli. 4. Chronic kidney disease. 5. Paroxysmal atrial fibrillation. 6. Hypertension. 7. Parkinson's disease. RECOMMENDATION: Continue the above cardiac medications. Maintain on a heparin drip as we bridge with warfarin to a therapeutic INR. Patient is unable to afford Xarelto at this time. Once INR is therapeutic, we will consider possibly transitioning to Xarelto and supporting the patient with samples from the office. Continue to monitor the patient closely. Pain management per primary team. Dictated by Esther Crowell NP. Job#: [id number]
[2017-11-12] MEDS: WARFARIN SOD 5 MG TAB PO SCH (16:54)
[2017-11-12] MEDS: ONDANSETRON HCL INJ 2 MG/ML VIAL IV PRN (16:55)
[2017-11-12] MEDS: ATORVASTATIN 10 MG TAB PO SCH (21:49)
[2017-11-13] MEDS: HEPARIN 25,000U/0.45% NS 250ML 1,500 UNIT in SODIUM CHLORIDE 0.9% 250ML 0 ML IV SCH (03:06)
[2017-11-13 04:53] VITALS: BP 112/74
[2017-11-13 08:11] VITALS: BP 135/92
[2017-11-13 09:00] VITALS: BP 135/92
[2017-11-13] MEDS: CLOPIDOGREL BISULFATE 75 MG TAB PO SCH (09:00)
[2017-11-13] MEDS: METOPROLOL TARTRATE 25 MG TAB PO SCH (09:00)
[2017-11-13] MEDS: ASPIRIN 81 MG CHEW TAB PO SCH (09:00)
[2017-11-13] MEDS: PANTOPRAZOLE SOD 40 MG TABEC PO SCH (09:00)
[2017-11-13 09:20] LABS: INR 2.18; PROTHROMBIN TIME 22.8 seconds (11.9-14.5)
--- NOTE | 2017-11-13 10:43 | Progress Note ---
DATE: November 13, 2017 CARDIOLOGY PROGRESS NOTE SUBJECTIVE: Patient continues to have some pains in the chest upon touching. Otherwise, no other complaints. OBJECTIVE VITAL SIGNS: Temperature 97.2, pulse 68, respiratory rate 20, blood pressure 135/92, oxygen saturation 95% on room air. CARDIOVASCULAR MEDICATIONS 1. Protonix 40 mg p.o. daily. 2. Metoprolol 12.5 mg p.o. b.i.d. 3. Plavix 75 p.o. daily. 4. Aspirin 81 p.o. daily. 5. Atorvastatin 10 p.o. daily. 6. Warfarin 5 mg p.o. daily. LABS: INR 2.18, PT 22.8. TELEMETRY: Sinus rhythm. PHYSICAL EXAMINATION GENERAL: Alert and oriented x3, resting comfortably in bed, no acute distress noted. LUNGS: Diminished breath sounds in anterior lower lobes, otherwise clear to auscultation. No wheezing, rhonchi or crackles. CARDIOVASCULAR: Regular rate and rhythm, normal S1 and S2. ABDOMEN: Rounded, soft, nontender. LOWER EXTREMITIES: No edema. IMPRESSION 1. Chest pain. 2. Coronary artery disease status post recent 4-vessel coronary artery bypass grafting in June 2017. 3. Recently diagnosed pulmonary emboli. 4. Chronic kidney disease. 5. Paroxysmal atrial fibrillation. 6. Hypertension. 7. Parkinson disease. PLAN: Continue with the above-listed cardiac medications. Okay to discontinue heparin drip at this point. INR is now therapeutic. Okay to discharge patient from a cardiac standpoint. We will be initiating Xarelto as an outpatient. We will monitor the patient very closely as outpatient and continue management of musculoskeletal chest pain secondary to recent bypass. Thank you for this consult. Dictated by Esther Crowell NP. Job#: [id number]
[2017-11-13 12:10] VITALS: BP 107/20
[2017-11-13] MEDS ORDERED: WARFARIN SODIUM3 MG PO (13:45)
[2017-11-13] MEDS: WARFARIN SOD 5 MG TAB PO SCH (15:05)
== END 2017-11-13 15:30 | disposition home or self-care (01) | DRG 313 ==
LOC: ER 15:06 → ERHOLD 17:57 → MED/SURG2 19:37
PROVIDERS: ADMIT Internal Medicine; ATTEND Internal Medicine
DX: R07.2 Precordial pain (principal); I12.9 Hypertensive chronic kidney disease with stage 1 through stage 4 chronic kidney disease, or unspecified chronic kidney disease; N18.9 Chronic kidney disease, unspecified; I25.10 Atherosclerotic heart disease of native coronary artery without angina pectoris; Z95.1 Presence of aortocoronary bypass graft; Z86.711 Personal history of pulmonary embolism; I48.0 Paroxysmal atrial fibrillation; G20 Parkinson's disease
CPT/HCPCS: 36415; 36600; 71045; 78582; 80048; 80053; 82550; 82553; 82805; 83880; 84484; 85025; 85379; 85610; 85730; 93005; 99285; A9540; A9558; J1644; J2270; J2405; J7050

== ENCOUNTER 2017-11-21 17:21 | Inpatient (IN) | payer MEDICARE ==
[~2017-11-21] VITALS: Ht 198.1 cm; Wt 121.3 kg
[~2017-11-21 17:21] MED LIST changes: +WARFARIN SODIU2.5 MG PO
[2017-11-21] MEDS ORDERED: DIAZEPAM 2 MG TAB PO ONE (18:00)
[2017-11-21] MEDS ORDERED: ONDANSETRON HCL 4 MG ORAL DISINTEGRATING TAB PO ONE (18:00)
[2017-11-21] MEDS ORDERED: DIAZEPAM 5 MG TAB PO ONE (18:15)
[2017-11-21] MEDS ORDERED: HYDROMORPHONE 1MG/1ML INJ IM ONE (18:15)
--- NOTE | 2017-11-21 19:21 | Diagnostic Imaging Report ---
EXAMINATION: CHEST SINGLE (PORTABLE) INDICATION: Chest pain. COMPARISON: Chest x-ray 11/09/2017. FINDINGS: AP view TUBES and LINES: Median sternotomy wires. LUNGS: Lungs are well inflated. Lungs are clear. There is no evidence of pneumonia or pulmonary edema. PLEURA: No pleural effusion or pneumothorax. HEART AND MEDIASTINUM: The cardiomediastinal silhouette is unremarkable. Tortuous aorta is unchanged. BONES AND SOFT TISSUES: No acute osseous lesion. Soft tissues are unremarkable. UPPER ABDOMEN: No free air under the diaphragm. IMPRESSION: No acute thoracic abnormality. Signed by: Dr. Asa Headley M.D. on 11/21/2017 7:18 PM
[2017-11-21 20:16] LABS: INR 8.4; PROTHROMBIN TIME 65.4 seconds (11.9-14.5)
[2017-11-21] MEDS ORDERED: PHYTONADIONE 10 MG/ML AMP SQ ONE (20:30)
[2017-11-21 20:49] LABS: BASOPHILS % 0.3 % (0.0-1.0); EOSINOPHILS % 0.3 % (0.0-6.0); HEMATOCRIT 43.4 % (38.2-49.6); HEMOGLOBIN 14.6 g/dL (14.0-18.0); LYMPHOCYTES # (AUTO) 1.4 (1.0-3.2); LYMPHOCYTES % 14.9 % (18.0-39.1); MEAN CORPUSCULAR HEMOGLOBIN 29.6 pg (28-32); MEAN CORPUSCULAR HGB CONC 33.6 g/dL (31-35); MONOCYTES # (AUTO) 0.8 (0.2-0.8); MONOCYTES % 8.4 % (4.4-11.3); NEUTROPHILS # (AUTO) 6.8 (2.1-6.9); NEUTROPHILS % 75.1 % (38.7-80.0); PLATELET COUNT 277 x10e3/uL (140-360); RED BLOOD COUNT 4.93 x10e6/uL (4.3-5.7); RED CELL DISTRIBUTION WIDTH 16.2 % (11.7-14.4)
[2017-11-21 21:09] LABS: ALANINE AMINOTRANSFERASE 21 IU/L (0-55); ALBUMIN 3.8 g/dL (3.5-5.0); ALKALINE PHOSPHATASE 107 IU/L (40-150); ANION GAP 16.1 mmol/L (8-16); BLOOD UREA NITROGEN 20 mg/dL (7-26); BUN/CREATININE RATIO 17 (6-25); CALCIUM 9.6 mg/dL (8.4-10.2); CARBON DIOXIDE 20 mmol/L (22-29); CHLORIDE 109 mmol/L (98-107); CREATINE KINASE 27 IU/L (30-200); CREATININE, SERUM 1.16 mg/dL (0.72-1.25); EST GLOMERULAR FILTRATION RATE > 60 ML/MIN (60-); GLUCOSE 89 mg/dL (74-118); POTASSIUM 4.1 mmol/L (3.5-5.1); SODIUM 141 mmol/L (136-145)
[2017-11-21] MEDS ORDERED: SODIUM CHLORIDE 0.9% 100 ML ONE (22:52)
[2017-11-21] MEDS ORDERED: IOPAMIDOL 370 MG/ML 200 ML INFUS..BTL INJ ONE (22:52)
--- NOTE | 2017-11-21 23:21 | Diagnostic Imaging Report ---
EXAM: CTA CHEST, ABDOMEN AND PELVIS WITH AND WITHOUT IV CONTRAST. INDICATION: Back pain, \S\eval for aortic dissection \S\Y COMPARISON: 07/10/2017, 06/11/2017. TECHNIQUE: Multi-detector CT technology was employed. CTA of the chest, abdomen and pelvis was performed, before and after the administration of IV contrast. For optimization of anatomic evaluation, multiplanar reconstruction, maximum intensity projections, and advanced 3-D off-line postprocessing were performed on a dedicated stand-alone workstation under the direct supervision of the interpreting physician. IV CONTRAST: 100 mL of Isovue-370 ORAL CONTRAST: None COMPLICATIONS: None FINDINGS: Potential study limitations: None. CHEST: There are again scattered predominantly calcified mediastinal and hilar nodes related to prior granulomatous disease. Normal heart size status post median sternotomy and CABG. No pericardial effusion. There are scattered calcified granulomas in both lungs. Extensive scarlike opacities are seen in the lung apices and bases. VASCULAR WITH ADVANCED 3-D OFF-LINE POSTPROCESSING: Aortic valve morphology is incompletely assessed on this non-gated examination. The thoracic and abdominal aorta is patent, normal caliber. There is mixed calcific and soft plaque within the thoracic and abdominal aorta, worse/moderate of the abdominal aorta. There is no acute aortic pathology, such as dissection, intramural hematoma, or contained rupture. There is a common origin of the brachiocephalic and left common carotid artery. All of the arch branch vessels appear widely patent in their proximal portions. Separate origins of the left gastric artery, splenic artery, and common hepatic artery directly from aorta. Severe narrowing of the proximal SMA related to soft plaque, but patent distally. BILLIE is patent. Bilateral renal arteries and right accessory renal artery are patent. Bilateral common, external and internal iliac arteries are patent, tortuous with mild to moderate atherosclerotic changes. Moderate narrowing of the proximal right internal iliac artery. Core Driller Helper dimensions of the thoracic and abdominal aorta are as follows: 3.1 cm at the aortic annulus 3.9 cm at the sinuses of Valsalva (the sinotubular junction is preserved) 3.6 cm at the mid ascending aorta 3.6 cm at the distal ascending aorta 3.2 cm at the mid transverse arch 3.0 cm at the proximal descending thoracic aorta 2.9 cm at the diaphragmatic hiatus 2.7 cm at the suprarenal aorta at the level of SMA 2.3 cm at the infrarenal aorta 2.6 cm at the level of the BILLIE, ectatic 2.0 cm above the bifurcation ABDOMEN AND PELVIS: Arterial phase images of the liver, spleen, pancreas, and adrenals are unremarkable. Prior cholecystectomy. There is diffuse bilateral renal cortical scarring with scattered cysts. No evidence of bowel obstruction. Incidental small hiatal hernia, diverticulosis and normal appendix. The bladder is underdistended with mild circumferential wall thickening, less conspicuous from prior. BONES: Diffusely decreased bone mineralization with multilevel degenerative changes and height loss of the spine: New mild inferior T4 and superior T5 height loss with linear sclerosis related to compression fractures. Increased mild T6 central superior endplate compression fracture from prior. Unchanged T8-T9 compression fractures. Vertebroplasty changes at T11-L4 and right SI joint fixation. IMPRESSION: 1. Mixed atherosclerotic plaque of the thoracic aorta, but no aortic dissection or aneurysm. Severe proximal SMA narrowing, but patent distally without signs of bowel ischemia. 2. New compression fractures of T4-T6. Correlate with site of pain. Signed by: Dr Nohemi Iqbal MD on 11/21/2017 11:17 PM
[2017-11-22] VITALS (9 sets, daily range): BP systolic 129–156; BP diastolic 83–112
[2017-11-22] MEDS ORDERED: SODIUM CHLORIDE FLUSH 10 ML SYR INJ PRN (00:15)
[2017-11-22] MEDS ORDERED: ULTRAM 50MG50 MG PO (01:26)
[2017-11-22] MEDS: HYDROMORPHONE 1MG/1ML INJ IV PRN ×5 (01:35→18:15)
[2017-11-22] MEDS: ONDANSETRON HCL INJ 2 MG/ML VIAL IV PRN ×2 (01:35→18:15)
[2017-11-22] MEDS ORDERED: SODIUM CHLORIDE 0.9% 250ML 250 ML ONE (03:39)
[2017-11-22] MEDS ORDERED: LORAZEPAM INJ 2 MG/ML VIAL IV ONE (08:45)
--- NOTE | 2017-11-22 16:21 | Consultation ---
DATE OF CONSULTATION: November 22, 2017 CARDIOLOGY CONSULTATION CHIEF COMPLAINT: My warfarin level is high and my back hurts. REASON FOR CONSULTATION: 1. Elevated INR. 2. Atrial fibrillation. 3. Coronary artery disease. 4. History of pulmonary embolism. HISTORY OF PRESENT ILLNESS: Mr. Odell is a 72-year-old white male who is well known to our service. He was initially seen in June 2017 at [facility] with chest pain and [id number] ND. He underwent coronary angiography at that time and was found to have multivessel coronary artery disease. He was referred for coronary artery bypass surgery performed for at [facility] in June 2017. His postoperative course was complicated by septic shock requiring mechanical ventilation, acute kidney injury requiring hemodialysis briefly, shock liver, atrial fibrillation with rapid ventricular response and GI bleeding on anticoagulation. Subsequently, he was discharged to inpatient rehab and eventually discharged home once his rehab was completed. Since that surgery, he continues to complain about musculoskeletal chest pain as well as palpitations, shortness of breath and dizziness. He has been seen in clinic several times in the past few months and has had very labile INRs on his warfarin therapy. Previously, we had attempted to change him to one of the NOACS. However, the patient is unable to afford these medication due to cost. He continues to be on warfarin because of his paroxysmal atrial fibrillation as well as recent diagnosis of subsegmental pulmonary embolus seen on PE protocol CT in October 2017. On his last office visit, he was instructed to take warfarin 2.5 mg daily, except for Tuesday, Tuesday and Tuesday when he was supposed to take warfarin 3 mg on those days. However, the patient reportedly was taking warfarin 5 mg daily, and on his most recent INR check his INR was found to be 8.4. The patient denies any active bleeding despite his significantly elevated INR. However, he does report easy bruising. He reports that for several weeks he has experienced severe mid back pain as well as back spasms, and he has been getting p.r.n. pain medications for this. He denies any chest pain, shortness of breath, orthopnea, PND or lower extremity edema. Denies any palpitations. REVIEW OF SYSTEMS: A complete 10-point review of systems was performed and is negative other than what is stated in the HPI. PAST MEDICAL HISTORY: 1. Coronary artery disease, status post 4-vessel coronary artery bypass graft surgery in June 2017. 2. Paroxysmal atrial fibrillation. 3. Pulmonary embolism. 4. Hypertension. 5. Hyperlipidemia. PAST SURGICAL HISTORY: Quadruple bypass in June 2017. FAMILY HISTORY: He has a family history of heart attack. SOCIAL HISTORY: The patient never smoked and denies any current alcohol use or tobacco use. PHYSICAL EXAMINATION VITAL SIGNS: Temperature 96.3, heart rate 79, respiratory rate 20, blood pressure 149/92, satting 93% on 2 liters nasal cannula. HEENT: Eyes: Conjunctivae clear. Ears, nose, mouth and throat: Normal mucosa. No pallor or bleeding. NECK: No jugular venous distention noted. MUSCULOSKELETAL: Normal muscle tone and strength. No atrophy or abnormal movements. EXTREMITIES: No clubbing or cyanosis. SKIN: No venous stasis changes or ulcers. GENERAL: A well-nourished, well-developed white male, well groomed. CARDIOVASCULAR: PMI nondisplaced, regular. Heart tones, normal S1 and S2. No murmurs, rubs or gallops heard. Palpable femoral pulses. Palpable pedal pulses. No peripheral edema or varicosities. RESPIRATORY: No respiratory distress. Clear to auscultation bilaterally. ABDOMEN: Soft and nontender. No masses. No hepatosplenomegaly noted. NEURO AND PSYCHIATRIC: Alert and oriented to person, place and time, normal affect. MEDICATIONS: The patient was on the following home medications at his last clinic visit: 1. Pantoprazole 40 mg daily. 2. Atorvastatin 10 mg daily. 3. Metoprolol 25 mg twice a day. 4. Aspirin 81 mg daily. 5. Plavix 75 mg daily. 6. Warfarin 2.5 mg on Tuesday, , Tuesday and Tuesday. 7. Warfarin 3 mg Tuesday, Tuesday and Tuesday. 8. Flexeril p.r.n. for back pain. ALLERGIES: SULFA DRUGS. LABORATORY DATA: Reviewed. Notable for PT of 65.4 and INR of 8.4, both are critically high. IMAGING DATA: Reviewed. CTA of chest and abdomen shows atherosclerotic plaque in the thoracic aorta without dissection or aneurysm, showed severe proximal SMA narrowing without any signs of bowel ischemia, also showed subacute compression fractures of T4, T5 and T6. Chest x-ray showed no acute cardiopulmonary abnormality. EKG shows normal sinus rhythm with frequent PVCs, left axis deviation, otherwise no ST-T changes suggestive of ischemia. ASSESSMENT 1. Supratherapeutic INR. 2. Paroxysmal atrial fibrillation. 3. Subsegmental pulmonary embolism. 4. Coronary artery disease, status post 4 vessel bypass surgery in June 2017. 5. Hypertension. 6. Hyperlipidemia. 7. Back pain, likely due to vertebral compression fractures of T4, T5 and T6. PLAN: The patient has had many changes to his warfarin regimen recently and is unable to afford any novel anticoagulation agents due to cost. Given current INR of 8.4, recommend continue holding warfarin until INR decreases below 2. Please resume his warfarin therapy at dose of 2.5 mg on Tuesday, , Tuesday and Tuesday, and 3 mg on Tuesday, Tuesday and Tuesday once the INR drops below 2.0. Otherwise, recommend continuing his cardiovascular medications as stated above. Thank you for this consult. Will continue to follow. Job#: [id number]
--- NOTE | 2017-11-22 16:31 | Diagnostic Imaging Report ---
Exam: Thoracic spine MRI without IV contrast History:Severe back pain, evaluate new T4 and T5 compression fractures. Comparison studies: Chest CT of 11/21/2017 and included spine from chest CT of 09/28/2017. Technique: Sagittal T1, T2 and STIR without contrast; axial and coronal T2. Findings: Curvature: Increased thoracic kyphosis due to multiple chronic thoracic compression fractures. Paraspinal soft tissues: No signal abnormalities. Spinal cord: The spinal cord is normal in size and signal intensity through the tip of the conus at L1. Vertebrae: Inferior T4 endplate fracture with edema results in approximately 20% height loss. Acute superior T6 endplate fracture with edema along the superior endplate which in combination with Schmorl's node along the inferior endplate results in up to 30% height loss. No significant associated retropulsion. A superior T5 endplate depression fracture with associated 15% height loss is without edema to indicate recent fracture and is also without associated retropulsion. Chronic compression fractures with anterior wedge deformities at T8 (approximately 35% height loss) and at T9 (approximately 25% height loss), inferior T10 endplate compression fracture (approximately 35% height loss) and chronic compression fractures with bone cement related to previous vertebral body augmentation at T11, T12 and L1 with associated height loss are stable from the previous chest CT of 09/28/2017. Bones are demineralized with diffuse fatty marrow replacement. Degenerative changes: Multilevel disc degeneration, worse/moderate at T7-T8 with there is moderate loss of disc height. Small disc osteophyte complexes from T10 to L1 indented thecal sac without significant canal stenosis. No significant foraminal stenosis. Additional findings: Median sternotomy wires related to previous cardiothoracic surgery. Partially imaged bilateral renal cysts. IMPRESSION: 1. Acute mildly depressed inferior T4 and superior T6 endplate fractures with associated mild vertebral body height loss without significant retropulsion. 2. Chronic T5 inferior endplate fracture with minimal height loss as well as additional stable chronic compression fractures from T8 through L1. 3. Increased thoracic kyphosis with diffuse osseous demineralization. Signed by: Dr. Esa Valentin M.D. on 11/22/2017 4:28 PM
[2017-11-22] MEDS: METOPROLOL TARTRATE 25 MG TAB PO SCH (17:48)
--- NOTE | 2017-11-22 20:12 | History and Physical ---
CHIEF COMPLAINT: Back pain and fall. HISTORY OF PRESENT ILLNESS: Mr. Odell is a 72-year-old male whose primary care physician is Dr. Ford who does not come to this hospital. Patient presented to the emergency room because of having severe back pain. The pain was associated with cramps and he started having this pain for the last 3 days. It was getting worse when he was walking or taking deep breaths. He denies any chest pain, nausea or vomiting. He has history of Parkinson disease and coronary artery disease and pulmonary embolism. Patient has been on Coumadin. In the emergency room, patient was found to have INR of 8.40. He received FFP and vitamin K and was admitted for further treatment. He is still complaining of severe back pain. He underwent MRI of the back which showed acute, mildly depressed inferior T4 and superior T6 endplate fracture with associated mild vertebral body height loss. REVIEW OF SYSTEMS: GENERAL: Denies any fever or chills. HEAD: Denies any head trauma. ENT: Denies any earache. CVS: Denies any chest pain. RESPIRATORY: Denies any shortness of breath. GI: Denies any nausea or vomiting. Rest of the review systems are negative except as in history of present illness. PAST MEDICAL HISTORY: History of coronary artery disease and CABG in June 2007. Paroxysmal atrial fibrillation. Pulmonary embolism. Hypertension and hyperlipidemia. FAMILY AND SOCIAL HISTORY: He lives with his . 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 Never smoked. Does not drink. PHYSICAL EXAM: VITAL SIGNS: Temperature 96.3, pulse of 80, blood pressure 133/83, respiratory rate 18, O2 sat 93% on 2 liters. HEENT: Normocephalic, atraumatic. NECK: Supple. CHEST: Clear to auscultation bilaterally. No wheezing. No crackles. HEART: S1 and S2 audible. ABDOMEN: Soft, nontender, nondistended. BACK: Spine tenderness. EXTREMITIES: No pedal edema. NEUROLOGIC: Awake and alert, following commands. LABS: White count 9.0, hemoglobin 14.6, platelets 277,000. Chemistry is within normal limits. CTA of the chest was done to rule out any aneurysm and bleeding which was negative. Patient underwent thoracic spine MRI which is showing acute mildly depressed inferior T4 and superior T6 endplate fracture. ASSESSMENT: Mr. Odell is a 72-year-old male who presented with severe back pain and found to have vertebral fractures. He has history of coronary artery disease, multivessel disease, history of CABG in the past. CURRENT PROBLEMS: 1. Acute vertebral fractures. 2. History of pulmonary embolism on Coumadin, currently with Coumadin toxicity with supratherapeutic INR. 3. History of coronary artery disease and CABG. 4. Hypertension. 5. Hyperlipidemia. PLAN: I will consult neurosurgery for acute vertebral fractures. To continue pain medications. Cardiology consult. Patient is well known to Dr. Nixon's group. Hold off on the Coumadin. The patient's INR was 8.40. Will recheck the INR again. The patient will need Coumadin for pulmonary embolism. Will resume the Coumadin once the INR is down in therapeutic range. Job#: [id number]
[2017-11-22] MEDS: ATORVASTATIN 40 MG TAB PO SCH (21:00)
[2017-11-23] VITALS (9 sets, daily range): BP systolic 130–152; BP diastolic 68–101
[2017-11-23] MEDS: HYDROMORPHONE 1MG/1ML INJ IV PRN ×5 (01:25→17:00)
[2017-11-23] MEDS: ONDANSETRON HCL INJ 2 MG/ML VIAL IV PRN ×3 (01:25→23:04)
[2017-11-23 05:40] LABS: BASOPHILS % 0.5 % (0.0-1.0); EOSINOPHILS # (AUTO) 0.1 (0.0-0.4); EOSINOPHILS % 1.7 % (0.0-6.0); HEMATOCRIT 37.8 % (38.2-49.6); HEMOGLOBIN 12.4 g/dL (14.0-18.0); LYMPHOCYTES # (AUTO) 0.9 (1.0-3.2); LYMPHOCYTES % 13.8 % (18.0-39.1); MEAN CORPUSCULAR HEMOGLOBIN 29.7 pg (28-32); MEAN CORPUSCULAR HGB CONC 32.8 g/dL (31-35); MEAN CORPUSCULAR VOLUME 90.6 fL (81-99); MONOCYTES # (AUTO) 0.6 (0.2-0.8); MONOCYTES % 9.5 % (4.4-11.3); NEUTROPHILS # (AUTO) 4.7 (2.1-6.9); NEUTROPHILS % 73.6 % (38.7-80.0); PLATELET COUNT 203 x10e3/uL (140-360); RED BLOOD COUNT 4.17 x10e6/uL (4.3-5.7); RED CELL DISTRIBUTION WIDTH 16.7 % (11.7-14.4)
[2017-11-23 05:54] LABS: INR 1.62; PROTHROMBIN TIME 18.1 seconds (11.9-14.5)
[2017-11-23 06:04] LABS: ALANINE AMINOTRANSFERASE 25 IU/L (0-55); ALBUMIN 3.5 g/dL (3.5-5.0); ALBUMIN/GLOBULIN RATIO 0.9 (0.8-2.0); ALKALINE PHOSPHATASE 102 IU/L (40-150); ANION GAP 11.4 mmol/L (8-16); BLOOD UREA NITROGEN 18 mg/dL (7-26); BUN/CREATININE RATIO 17 (6-25); CALCIUM 9.1 mg/dL (8.4-10.2); CARBON DIOXIDE 25 mmol/L (22-29); CHLORIDE 108 mmol/L (98-107); CREATININE, SERUM 1.07 mg/dL (0.72-1.25); EST GLOMERULAR FILTRATION RATE > 60 ML/MIN (60-); GLUCOSE 94 mg/dL (74-118); POTASSIUM 4.4 mmol/L (3.5-5.1); SODIUM 140 mmol/L (136-145)
[2017-11-23] MEDS: METOPROLOL TARTRATE 25 MG TAB PO SCH ×2 (09:00→17:00)
[2017-11-23] MEDS: PANTOPRAZOLE SOD 40 MG TABEC PO SCH (09:00)
[2017-11-23] MEDS: ASPIRIN 81 MG ENTERIC COATED PO SCH (10:15)
[2017-11-23] MEDS: FENTANYL 25 MCG/HR PATCH TOP SCH (10:55)
--- NOTE | 2017-11-23 13:41 | Progress Note ---
DATE: November 23, 2017 CARDIOLOGY PROGRESS NOTE SUBJECTIVE AND OVERNIGHT EVENTS: Patient complains about severe 10/10 back pain and muscle spasms in his back. His current pain medicine regimen helps with the pain; however, he requests that something stronger be ordered for his back spasms. He had a MRI of the spine done, which shows compression fractures in his thoracic spine. From a cardiovascular perspective, he denies any chest pain, shortness of breath, lower extremity edema, orthopnea, or PND. No bleeding. REVIEW OF SYSTEMS: In addition to stated above, patient reports constipation and nausea. Otherwise, review of systems is negative. OBJECTIVE VITAL SIGNS: Temperature 98.0, heart rate 70, respiratory rate 16, blood pressure 130/80, satting 94% on 2 L nasal cannula. GENERAL: Patient is a well-developed and well-nourished white male. CARDIOVASCULAR: Patient has a midline sternotomy scar. His PMI is nondisplaced. He has regular heart tones. Normal S1 and S2. No murmur, rubs, or gallops. He has palpable femoral pulses. Palpable pedal pulses and normal carotid upstroke. No peripheral edema or varicosities. RESPIRATORY: No respiratory distress. Lungs clear to auscultation bilaterally. ABDOMEN: Soft and nontender. No masses. No hepatosplenomegaly. NEURO AND PSYCH: Patient is alert and oriented to person, place, and time. Normal affect. CARDIOVASCULAR MEDICATIONS 1. Aspirin 81 mg daily. 2. Metoprolol tartrate 25 mg twice a day. 3. Pantoprazole 40 mg daily. 4. Atorvastatin 80 mg at bedtime. LABORATORY DATA: Lab data reviewed, notable for INR of 1.62 down from INR of 8.4 yesterday after receiving FFP. IMAGING: Imaging data reviewed. MRI of spine shows acute mildly depressed inferior T4 and superior T6 endplate fractures and a chronic T5 inferior endplate fracture. ASSESSMENT 1. Supratherapeutic INR. 2. Paroxysmal atrial fibrillation. 3. Subsegmental pulmonary embolism. 4. Coronary artery disease, status post 4-vessel bypass surgery in June 2017. 5. Hypertension. 6. Hyperlipidemia. 7. Back pain due to vertebral compression fractures. PLAN: Patient's INR has normalized with therapy and this morning was 1.6. Recommend resuming his warfarin regimen as follows: 2.5 mg on Tuesday, , Tuesday, and Tuesday and 3 mg on Mondays, Wednesdays, and Fridays. Otherwise, continue his above stated cardiovascular mediations. Thank you for this consult. We will continue to follow. Job#: [id number] [place]
[2017-11-23] MEDS ORDERED: WARFARIN SOD 3 MG TAB PO SCH (17:00)
[2017-11-23] MEDS: ATORVASTATIN 40 MG TAB PO SCH (21:45)
--- NOTE | 2017-11-23 23:37 | Consultation ---
DATE OF CONSULTATION: November 23, 2017 NEUROLOGY CONSULT NOTE HISTORY OF PRESENT ILLNESS: Mr. Odell is a 72-year-old right-hand dominant man with past medical history significant for hypertension, hyperlipidemia, coronary artery disease, paroxysmal atrial fibrillation, and cervical dystonia, admitted to [facility] on November 22, 2017 with Coumadin toxicity and severe back pain caused by multiple vertebral compression fractures. As part of his history and physical examination, the primary attending documented prior diagnosis of Parkinson disease, which prompted the neurology consultation. Mr. Odell reports first experiencing symptoms in 1985. He describes his symptoms as involuntary rotation of his neck and head towards the right. While the patient could move his neck and head in all directions, tightening of various groups of muscle resulted in rightward version of the neck and head. At that time and at present, Mr. Odell does not endorse a tremor, bradykinesia, freezing or hypotonia. He does report poor balance with multiple falls in the past few months. Mr. Odell reports his balance significantly worsened after his coronary artery bypass graft in June of 2017. When the patient's symptoms began in 1985, he tried various treatments with no improvement of his symptoms. Those treatments included: Acupuncture, chiropractic manipulation, biofeedback, consultation with a neurosurgeon, who admitted the patient for a course of inpatient rehabilitation. At some point, Mr. Odell was referred to Dr. Soares and Dr. Moe by orthopedist. Dr. Soares and Dr. Moe diagnosed the patient with cervical dystonia. Mr. Odell was treated with a variety of benzodiazepines (Valium, Ativan, clonazepam) and muscle relaxants without benefit. After receiving no benefit from multiple oral medications, the patient received Botox injections to the neck. Mr. Odell reports his symptoms were partially improved for approximately 2 weeks following the Botox injections. He received 3 sets of injections over approximately 1 year. However, treatment with Botox injections had to be discontinued due to financial constrains. Mr. Odell was last treated with Botox injections in 1989. The patient says he has little interest in Botox injections once again due to the cost involved. REVIEW OF SYSTEMS: Nausea, vomiting, back pain. Otherwise, the 12-point review of systems is negative. PAST MEDICAL HISTORY: Hypertension, hyperlipidemia, coronary artery disease, paroxysmal atrial fibrillation, cervical dystonia, pulmonary embolus, chronic back pain. PAST SURGICAL HISTORY: A 4-vessel CABG in June 2017, bilateral cataract surgery, multiple pain procedures. PAST HOSPITALIZATIONS: Surgeries/procedures as listed, multiple other hospitalizations. FAMILY MEDICAL HISTORY: Mr. Odell reports multiple family members have coronary artery disease with prior myocardial infarction. SOCIAL HISTORY: Patient lives with a girlfriend. He is retired. 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 The patient does not report current or prior tobacco, alcohol, or recreational drug use. HOME MEDICATIONS 1. Atorvastatin 10 mg by mouth at bedtime daily. 2. Plavix 75 mg by mouth daily. 3. Flexeril 5 mg by mouth twice daily as needed for muscle spasm. 4. Hydrocodone/acetaminophen 5 and 325 one tablet by mouth every 4 hours as needed for pain. 5. Metoprolol tartrate 12.5 mg by mouth twice daily. 6. Protonix 40 mg by mouth daily. 7. Tramadol 50 mg by mouth every 6 hours as needed for pain. 8. Coumadin 5 mg by mouth daily. ALLERGIES: SULFA. NO KNOWN FOOD ALLERGIES. NO KNOWN ALLERGIES TO LATEX. NO KNOWN ALLERGIES TO IODINE OR OTHER CONTRAST MATERIALS. PHYSICAL EXAMINATION VITAL SIGNS: Height 78 inches. Weight 228 lbs. BMI 26.3 kg per meter squared. Blood pressure 152/94 mmHg. Pulse 76 beats per minute. Respiratory rate 16 breaths per minute. Oxygen saturation 92% on 2 L by nasal cannula. GENERAL: The patient is awake and alert, does not appear distressed. HEENT: Normocephalic, atraumatic. Pupils are surgical. Moist mucous membranes. NECK: Supple. No appreciable thyromegaly. No appreciable carotid bruits. There is rightward version of the neck and head, but full range of motion of the cervical spine. CARDIOVASCULAR: S1, S2 regular rate and rhythm tachycardic. No murmurs, rubs or gallops. Respiratory intubated. RESPIRATORY: Clear to auscultation bilaterally. No wheezes, rhonchi or rales. EXTREMITIES: The skin is warm and dry. No clubbing, cyanosis or edema. The posterior tibial and dorsalis pedis pulses are 1+ and symmetric. SKIN: Ecchymoses over the hands and forearms, right greater than left. NEUROLOGIC Memory/Attention: The patient is awake and alert, oriented to person, place, time, and situation. Cranial Nerves: Cranial nerve I--not tested cranial. Cranial nerve II, III, IV, and --pupils are surgical, extraocular movements intact. No nystagmus. Cranial nerve V--sensation to light touch and pinprick is intact in the bilateral V1 through V3 distributions. Strength of the temporalis and masseter muscles is within normal limits. Cranial nerve VII--the face is symmetric as are all facial movements. Strength is within normal limits. Cranial nerve VIII--hearing is diminished to finger rub bilaterally. Cranial nerve IX, X--the soft palate elevates equally and symmetrically. Cranial nerve XI--normal strength of the bilateral sternocleidomastoid and trapezius muscles. Cranial nerve XII--the tongue protrudes midline and moves symmetrically from side to side. Strength: Bulk is normal. Strength is 4/5 to 4+/5 in the bilateral deltoids, biceps, triceps, wrist flexors and extensors, finger flexors and extensors, intrinsic hand muscles, hip flexors, knee flexors and extensors, ankle dorsiflexion and plantar flexion, and intrinsic foot muscles. There is effort dependent weakness in multiple muscles examined in both arms and both legs secondary to pain. Tone is normal. DTRs: Deep tendon reflexes are 1+ and symmetric at the triceps, biceps, brachioradialis, and patellas. Deep tendon reflexes are absent and symmetric at the Achilles. Plantar responses are flexor bilaterally. Sensation: Sensation is intact to light touch and pinprick in both arms and both legs. Cerebellar: Obtuod-ygjb-ibboav and heel-orozco movements are intact without dysmetria or other impairment. There is mild impairment with bilateral finger tapping, left greater than right. Toe tapping is intact. Gait: Deferred. Speech: Spontaneous speech is normal without appreciable dysarthria or aphasia. Repetition is intact. Involuntary Movements: None. Pronator Drift: None. LABORATORY DATA: Sodium 140, potassium 4.4, chloride 108, carbon dioxide 25, anion gap 11.4, BUN 18, creatinine 1.07, estimated GFR greater than 60. BUN to creatinine ratio 17. Glucose 94, calcium 9.1. Total bilirubin 0.7, AST 27, ALT 25, alkaline phosphatase 102. Total protein 7.2, albumin 3.5 globulin 3.7, albumin to globulin ratio 0.9. Creatine kinase 27, CK-MB 1.10, troponin-I 0.013. The CBC with differential and platelets reveals a white blood cell count of 6.39 with 73.6% neutrophils, 13.8% lymphocytes, 9.5% monocytes, 1.7% eosinophils, and 0.5% basophils. The hemoglobin and hematocrit are 12.4 and 37.8, respectively. The platelet count is 203,000. From November 21, 2017, PT 65.4, INR 8.40. From November 23, 2017, PT 18.1, INR 1.62, PTT 34.0. DIAGNOSTIC STUDIES 1. Chest x-ray 11/21/2017: No acute thoracic abnormality. 2. CTA of the chest and thorax 11/21/2017 1. Mixed atherosclerotic plaque in the thoracic aorta, but no aortic dissection or aneurysm. Severe proximal SMA narrowing, but patent distally without signs of bowel ischemia. 2. New compression fractures of T4 through T6. Correlate with site of pain. 3. CTA of the abdomen pelvis 11/21/2017: The impression is the same as above. 4. MRI of the thoracic spine 11/21/2017 1. Acute mildly depressed inferior T4 and superior T6 endplate fractures with associated mild vertebral body height loss without significant retropulsion. 2. Chronic T5 inferior endplate fracture with minimal height loss, as well as additional stable chronic compression fractures from T8 through L1. 3. Increased thoracic kyphosis with diffuse osseous demineralization. ASSESSMENT AND PLAN: Mr. Odell is a 72-year-old right-hand dominant man with past medical history as detailed above admitted to [facility] on November 22, 2017 with Coumadin toxicity and severe low back pain secondary to fractures of the thoracic vertebra as detailed. Mr. Odell has undergone a thorough neurological examination as detailed above. His laboratory data and other diagnostic studies have been reviewed and are documented above. Mr. Odell does not endorse symptoms nor are there signs on his neurological examination of Parkinson's disease. Mr. Odell has a focal dystonia, namely a cervical dystonia resulting in rightward version of the neck and head. The recommended treatment for a focal dystonia is Botox injections. However, the patient declines further treatment at this time secondary to cost. My contact information was given to Mr. Odell. If he should change his mind in the future, recommendations for neurologist, who administers Botox will be available through my office. There are no further recommendations from the neurology service at this time. Please contact me again with any questions or concerns. Thank you for this consultation. TIME SPENT: 70 minutes. Job#: [id number] CQ MTDD
[2017-11-24] VITALS: BP 118/79
[2017-11-24] MEDS: HYDROMORPHONE 1MG/1ML INJ IV PRN ×6 (01:16→20:25)
[2017-11-24] MEDS: ONDANSETRON HCL INJ 2 MG/ML VIAL IV PRN ×5 (02:00→20:25)
[2017-11-24 04:00] VITALS: BP 70/119
[2017-11-24 08:00] VITALS: BP 144/70
[2017-11-24] MEDS: METOPROLOL TARTRATE 25 MG TAB PO SCH ×2 (09:00→17:00)
[2017-11-24] MEDS: PANTOPRAZOLE SOD 40 MG TABEC PO SCH (09:00)
[2017-11-24] MEDS: ASPIRIN 81 MG ENTERIC COATED PO SCH (09:00)
[2017-11-24] MEDS ORDERED: ENOXAPARIN SODIUM INJ 100 MG/ML SYR SC SCH (10:45)
[2017-11-24 11:13] LABS: INR 1.22; PROTHROMBIN TIME 14.5 seconds (11.9-14.5)
[2017-11-24 12:05] VITALS: BP 143/87
[2017-11-24 15:48] VITALS: BP 138/90
[2017-11-24] MEDS: ENOXAPARIN SODIUM INJ 100 MG/ML SYR SC SCH (17:00)
[2017-11-24] MEDS ORDERED: WARFARIN SOD 2.5 MG TAB PO SCH (17:00)
[2017-11-24 20:00] VITALS: BP 120/83
[2017-11-24] MEDS: ATORVASTATIN 40 MG TAB PO SCH (20:25)
[2017-11-25] VITALS (7 sets, daily range): BP systolic 96–144; BP diastolic 72–100
[2017-11-25] MEDS: ENOXAPARIN SODIUM INJ 100 MG/ML SYR SC SCH ×2 (04:30→17:00)
[2017-11-25] MEDS: ONDANSETRON HCL INJ 2 MG/ML VIAL IV PRN ×2 (04:41→08:25)
[2017-11-25 05:10] LABS: INR 1.2; PROTHROMBIN TIME 14.3 seconds (11.9-14.5)
[2017-11-25] MEDS: METOPROLOL TARTRATE 25 MG TAB PO SCH ×2 (08:25→17:00)
[2017-11-25] MEDS: HYDROCODONE/APAP 10MG-325MG TAB PO PRN ×2 (08:25→19:49)
[2017-11-25] MEDS: ASPIRIN 81 MG ENTERIC COATED PO SCH (08:25)
[2017-11-25] MEDS: LIDOCAINE 5% PATCH TP SCH (08:25)
[2017-11-25] MEDS: PANTOPRAZOLE SOD 40 MG TABEC PO SCH (08:25)
[2017-11-25] MEDS: MORPHINE SULFATE 2 MG/ML SYR IV PRN ×2 (12:56→17:00)
[2017-11-25] MEDS ORDERED: WARFARIN SOD 3 MG TAB PO SCH (21:00)
[2017-11-25] MEDS ORDERED: WARFARIN SOD 5 MG TAB PO SCH (21:00)
[2017-11-25] MEDS: ATORVASTATIN 40 MG TAB PO SCH (21:40)
[2017-11-26] VITALS (7 sets, daily range): BP systolic 105–129; BP diastolic 75–87
[2017-11-26] MEDS: ENOXAPARIN SODIUM INJ 100 MG/ML SYR SC SCH ×2 (05:27→17:13)
[2017-11-26] MEDS: MORPHINE SULFATE 2 MG/ML SYR IV PRN ×2 (05:28→19:55)
[2017-11-26 05:45] LABS: INR 1.11; PROTHROMBIN TIME 13.5 seconds (11.9-14.5)
[2017-11-26] MEDS: METOPROLOL TARTRATE 25 MG TAB PO SCH ×2 (09:13→17:13)
[2017-11-26] MEDS: LIDOCAINE 5% PATCH TP SCH (09:13)
[2017-11-26] MEDS: PANTOPRAZOLE SOD 40 MG TABEC PO SCH (09:13)
[2017-11-26] MEDS: ASPIRIN 81 MG ENTERIC COATED PO SCH (09:13)
--- NOTE | 2017-11-26 10:37 | Progress Note ---
DATE: CARDIOLOGY PROGRESS NOTE SUBJECTIVE: Patient complains of issues with his sinus surgery being on hold at this time. He endorses a lot of frequent back pains and spasms. Denies any chest pain or shortness of breath at this present time. Noted to be quite agitated this morning. Greater than 30 minutes spent with this patient this morning. OBJECTIVE VITAL SIGNS: 96.6 temperature, pulse 68, respiratory rate 16, blood pressure 105/85, oxygen saturation 94% on 4 L nasal cannula. CARDIOVASCULAR MEDICATIONS 1. Metoprolol 25 mg p.o. b.i.d. 2. Aspirin 81 p.o. daily. 3. Morphine 2 mg q.4 h. p.r.n. for pain. 4. Warfarin 5 mg p.o. daily. 5. Atorvastatin 80 mg p.o. at night. LABS: PT 13.5, INR 1.11. PHYSICAL EXAMINATION GENERAL: Alert and oriented times 3. Resting comfortably in bed. Does not appear to be in acute distress. CARDIOVASCULAR: Regular rate and rhythm. Sternotomy scar healing. Normal S1 and S2. No murmurs. No gallops noted. RESPIRATORY: Diminished breath sounds in anterior and posterior lower lobes. Otherwise, no wheezing, crackles or rhonchi noted. ABDOMEN: Soft and nontender. EXTREMITIES: No edema. ASSESSMENT 1. Supratherapeutic INR. 2. Paroxysmal atrial fibrillation. 3. Subsegmental pulmonary emboli. 4. Coronary artery disease: Status post 4-vessel bypass graft in June of 2017. 5. Hypertension. 6. Hyperlipidemia. 7. Back pain due to vertebral compression fracture. PLAN: Resume p.o. warfarin. Monitor INR very closely. Bridge with Lovenox at this time. Continue with the above-listed cardiac medications. Maintain on telemetry. DICTATED BY JUAN CHU NP Job#: [id number] HELIO
[2017-11-26] MEDS: FENTANYL 25 MCG/HR PATCH TOP SCH (11:00)
[2017-11-26] MEDS ORDERED: WARFARIN SOD 5 MG TAB PO ONE (11:15)
--- NOTE | 2017-11-26 11:46 | Progress Note ---
DATE: The patient has been extremely belligerent and not understanding. Spent 45 minutes in the room with the nurse, Lottie, explaining to him that if he needs to have kyphoplasty it can be done as an outpatient with his landscape painter. I had a detailed discussion with Dr. Gupta, neuroradiology with [facility], and he reviewed the MRI films, and told me that the patient is not a candidate for kyphoplasty. The risks outweigh the benefit. The patient can have complications. This was explained in detail to the patient. However, he refuses to understand that. Is blaming all of us that we are not able to take care of his pain and take care of him. I had a detailed discussion with him that he is on Coumadin because of the history of paroxysmal atrial fibrillation and history of pulmonary embolism. It needs to be resumed. It was stopped because he had supratherapeutic INR, and Lovenox has been started for that reason. His pulmonary embolism was diagnosed in September of 2017. It is too soon to stop anticoagulation completely. We also spoke to his landscape painter's office, Dr. Maya. His office said that the patient will need an outpatient cardiology clearance, and then he can come to the office for the procedure. This was also explained to the patient. However, he is adamant that he will stay in the hospital for the pain control, and cannot be discharged. Dr. Viramontes from pain management has also been consulted, and pain management regimen has been continued. PLAN: At this point, I have resumed his Coumadin. He will be discharged once the INR is therapeutic. Job#: [id number] HELIO
[2017-11-26] MEDS: OXYCODONE/ACETAMINOPHEN 5-325 1 EACH TABLET PO PRN (17:10)
[2017-11-26] MEDS: WARFARIN SOD 5 MG TAB PO SCH (17:12)
[2017-11-26] MEDS: ATORVASTATIN 40 MG TAB PO SCH (21:50)
[2017-11-27] VITALS (7 sets, daily range): BP systolic 110–130; BP diastolic 78–91
[2017-11-27] MEDS: ENOXAPARIN SODIUM INJ 100 MG/ML SYR SC SCH ×2 (06:15→17:00)
[2017-11-27] MEDS: OXYCODONE/ACETAMINOPHEN 5-325 1 EACH TABLET PO PRN (06:20)
[2017-11-27] MEDS: LIDOCAINE 5% PATCH TP SCH (09:31)
[2017-11-27] MEDS: METOPROLOL TARTRATE 25 MG TAB PO SCH ×2 (09:31→17:28)
[2017-11-27] MEDS: PANTOPRAZOLE SOD 40 MG TABEC PO SCH (09:31)
[2017-11-27] MEDS: ASPIRIN 81 MG ENTERIC COATED PO SCH (09:31)
--- NOTE | 2017-11-27 09:54 | Progress Note ---
DATE: CARDIOLOGY PROGRESS NOTE SUBJECTIVE: Patient complains of back pain. Denies any chest pain or shortness of breath. States that he is awaiting surgery. OBJECTIVE VITAL SIGNS: Temperature 97.4, pulse 74, respiratory rate 20, blood pressure 130/78, oxygen saturation 92% on room air. GENERAL: Alert and oriented times 3. Resting comfortably in bed. Does not appear to be in acute distress. Significant other at the bedside. CARDIOVASCULAR: Regular rate and rhythm. Sternotomy scar healing well. Normal S1 and S2. No murmurs. No gallops noted. RESPIRATORY: Clear to auscultation throughout. No wheezing, rhonchi or crackles. ABDOMEN: Rounded, soft and nontender. EXTREMITIES: Lower extremities with no edema. Two plus distal pulses. CARDIOVASCULAR MEDICATIONS 1. Atorvastatin 80 mg p.o. at night. 2. Metoprolol 25 p.o. b.i.d. 3. Warfarin 7.5 p.o. daily. 4. Aspirin 81 mg p.o. daily. LABS: No labs today. ASSESSMENT 1. Supratherapeutic INR. 2. Paroxysmal atrial fibrillation. 3. Subsegmental pulmonary emboli. 4. Coronary artery disease: Status post 4-vessel bypass graft in June of 2017. 5. Hypertension. 6. Hyperlipidemia. 7. Back pain due to vertebral compression fracture. PLAN: Continue anticoagulation with warfarin. We will repeat CT PE protocol and also echocardiogram to evaluate this patient for cardiac clearance for pending surgery. Continue the above list of cardiac medications. Maintain on telemetry at all times. We will continue to follow very closely. DICTATED BY JUAN CUH NP Job#: [id number] HELIO
[2017-11-27] MEDS ORDERED: SODIUM CHLORIDE 0.9% 50ML 0 ML ONE (11:45)
[2017-11-27] MEDS ORDERED: IOPAMIDOL 370 MG/ML 200 ML INFUS..BTL INJ ONE (11:46)
[2017-11-27] MEDS: MORPHINE SULFATE 2 MG/ML SYR IV PRN (14:21)
[2017-11-27] MEDS ORDERED: WARFARIN SOD 5 MG TAB PO SCH (17:00)
[2017-11-27] MEDS: WARFARIN SOD 5 MG TAB PO SCH (17:28)
[2017-11-27] MEDS: ATORVASTATIN 40 MG TAB PO SCH (21:11)
[2017-11-28] VITALS: BP 111/72
[2017-11-28 04:00] VITALS: BP 104/80
[2017-11-28] MEDS: ENOXAPARIN SODIUM INJ 100 MG/ML SYR SC SCH ×2 (04:47→04:53)
[2017-11-28 05:41] LABS: BASOPHILS % 0.6 % (0.0-1.0); EOSINOPHILS # (AUTO) 0.1 (0.0-0.4); EOSINOPHILS % 2.1 % (0.0-6.0); HEMATOCRIT 38.9 % (38.2-49.6); HEMOGLOBIN 12.8 g/dL (14.0-18.0); LYMPHOCYTES # (AUTO) 1.1 (1.0-3.2); LYMPHOCYTES % 22.1 % (18.0-39.1); MEAN CORPUSCULAR HEMOGLOBIN 29.6 pg (28-32); MEAN CORPUSCULAR HGB CONC 32.9 g/dL (31-35); MEAN CORPUSCULAR VOLUME 89.8 fL (81-99); MONOCYTES # (AUTO) 0.5 (0.2-0.8); NEUTROPHILS # (AUTO) 3.1 (2.1-6.9); NEUTROPHILS % 63.6 % (38.7-80.0); PLATELET COUNT 203 x10e3/uL (140-360); RED BLOOD COUNT 4.33 x10e6/uL (4.3-5.7); RED CELL DISTRIBUTION WIDTH 16.2 % (11.7-14.4)
[2017-11-28 06:02] LABS: INR 1.44; PROTHROMBIN TIME 16.5 seconds (11.9-14.5)
[2017-11-28 06:06] LABS: BLOOD UREA NITROGEN 17 mg/dL (7-26); BUN/CREATININE RATIO 16 (6-25); CALCIUM 9.1 mg/dL (8.4-10.2); CARBON DIOXIDE 25 mmol/L (22-29); CHLORIDE 106 mmol/L (98-107); CREATININE, SERUM 1.06 mg/dL (0.72-1.25); EST GLOMERULAR FILTRATION RATE > 60 ML/MIN (60-); GLUCOSE 98 mg/dL (74-118); SODIUM 139 mmol/L (136-145)
[2017-11-28 07:28] VITALS: BP 121/78
[2017-11-28] MEDS: ASPIRIN 81 MG ENTERIC COATED PO SCH (08:40)
[2017-11-28] MEDS: METOPROLOL TARTRATE 25 MG TAB PO SCH (08:40)
[2017-11-28] MEDS: PANTOPRAZOLE SOD 40 MG TABEC PO SCH (08:40)
[2017-11-28] MEDS: LIDOCAINE 5% PATCH TP SCH (09:00)
[2017-11-28 10:09] VITALS: BP 121/78
[2017-11-28 11:16] VITALS: BP 106/84
[2017-11-28] MEDS ORDERED: WARFARIN SOD 5 MG TAB PO SCH (17:00)
--- NOTE | 2017-11-29 16:37 | Discharge Summary ---
Patient signed out against medical advice. POSSIBLE FINAL DIAGNOSES 1. Coumadin toxicity (supratherapeutic international normalization ratio). 2. History of atrial fibrillation. 3. History of pulmonary embolism. 4. Coronary artery disease. 5. History of coronary artery bypass surgery. 6. Multiple compression fractures of the spine. 7. Parkinson disease. 8. Cervical dystonia. ADMISSION HISTORY AND HOSPITAL COURSE: Mr. Odell is a 72-year-old male who presented to the emergency room because of severe back pain. The patient's INR was checked, and it was 9. He was given vitamin K and FFP. A thoracic spine MRI was done, which showed evidence of mildly depressed inferior T4 and superior T6 end plate fracture with vertebral body loss. It also showed chronic end plate fractures and also showed evidence of kyphoplasty. The patient stayed in the hospital, and the INR was reversed. His Coumadin was resumed. The patient was EXTREMELY BELLIGERENT, NONCOOPERATIVE AND WAS NOT FOLLOWING ANY DIRECTIONS. He refused Lovenox dose as well. Lovenox was given for bridging anticoagulation as the patient was on Coumadin. He insisted that he needs kyphoplasty. Dr. Wolfe from radiology was consulted. He is faculty at [employer] and comes at [facility] for kyphoplasty. I spoke to him myself, and he reviewed the films. He reported the patient is not a candidate for kyphoplasty, and the risks of kyphoplasty outweigh the benefits as the patient can have complications from the procedure. This was conveyed to the patient with the supervisor hide house [place] present in the room. The patient was extremely noncooperative and started yelling and shouting that he needs this procedure done, and we are not helping him. Pain management consultants were consulted for pain control, and pain medicines were started. This was also discussed with the patient's , who also was crying in the room that the patient is not listening to her as well. I recommended that we resume the Coumadin, which was resumed along with the Lovenox. The plan was to discharge him once the INR is therapeutic. However, the patient decided to sign out against medical advice. The risks of going against medical advice were explained to him and include recurrence of pulmonary embolism, atrial fibrillation, stroke, and . This was also discussed with the supervisor hide house, [place], who also conveyed to the patient as well. However, the patient insisted on signing out AMA, and he signed out AMA. MONIQUE THOMPSON MD Job#: [id number]
== END 2017-11-28 15:32 | disposition left against medical advice (07) | DRG 543 ==
LOC: ER 17:21 → ERHOLD 11-22 00:09 → MED/SURG3 11-22 02:00 → UNDODISIN 11-28 15:32
PROVIDERS: ADMIT Internal Medicine; ATTEND Internal Medicine
PROC: 30233K1 Transfusion of Nonautologous Frozen Plasma into Peripheral Vein, Percutaneous Approach (ICD-10-PCS; principal; 2017-11-22)
DX: M48.54XA Collapsed vertebra, not elsewhere classified, thoracic region, initial encounter for fracture (principal); G24.8 Other dystonia; T45.515A Adverse effect of anticoagulants, initial encounter; I48.0 Paroxysmal atrial fibrillation; I10 Essential (primary) hypertension; I25.10 Atherosclerotic heart disease of native coronary artery without angina pectoris; Z86.73 Personal history of transient ischemic attack (TIA), and cerebral infarction without residual deficits; Z09 Encounter for follow-up examination after completed treatment for conditions other than malignant neoplasm; Z95.1 Presence of aortocoronary bypass graft; G20 Parkinson's disease; Z86.711 Personal history of pulmonary embolism; Z79.01 Long term (current) use of anticoagulants; E78.5 Hyperlipidemia, unspecified; Z88.2 Allergy status to sulfonamides
CPT/HCPCS: 36415; 36430; 71045; 71275; 72146; 74174; 80048; 80053; 82550; 82553; 84484; 85025; 85610; 85730; 86900; 93005; 93306; 96372; 99284; J1170; J1650; J2060; J2270; J2405; J3430; J7050; P9017; Q9967

== ENCOUNTER 2018-02-12 17:22 | Emergency (ER) | payer MEDICARE ==
[~2018-02-12] VITALS: Ht 198.1 cm; Wt 121.1 kg
[~2018-02-12 17:22] MED LIST changes: +ULTRAM 50MG50 MG PO
[2018-02-12] MEDS ORDERED: DIATRIZOATE MEGL/DIATRIZOA SOD 30 ML BTL PO ONE (18:08)
[2018-02-12] MEDS ORDERED: HYDROCODONE/APAP 10MG-325MG TAB PO ONE (18:30)
[2018-02-12] MEDS ORDERED: ONDANSETRON HCL INJ 2 MG/ML VIAL IV ONE (18:30)
[2018-02-12] MEDS ORDERED: HYDROMORPHONE 2MG/ML 2 MG/ML ML IV ONE ×2 (18:30→23:45)
[2018-02-12 18:41] LABS: BASOPHILS % 0.4 % (0.0-1.0); EOSINOPHILS # (AUTO) 0.1 (0.0-0.4); HEMATOCRIT 41.6 % (38.2-49.6); HEMOGLOBIN 14.2 g/dL (14.0-18.0); LYMPHOCYTES # (AUTO) 1.3 (1.0-3.2); MEAN CORPUSCULAR HEMOGLOBIN 30.7 pg (28-32); MEAN CORPUSCULAR HGB CONC 34.1 g/dL (31-35); MEAN CORPUSCULAR VOLUME 89.8 fL (81-99); MONOCYTES # (AUTO) 0.8 (0.2-0.8); MONOCYTES % 11.4 % (4.4-11.3); NEUTROPHILS # (AUTO) 4.6 (2.1-6.9); NEUTROPHILS % 67.3 % (38.7-80.0); PLATELET COUNT 259 x10e3/uL (140-360); RED BLOOD COUNT 4.63 x10e6/uL (4.3-5.7); RED CELL DISTRIBUTION WIDTH 15.9 % (11.7-14.4)
[2018-02-12 18:45] LABS: BILIRUBIN,URINE NEGATIVE (NEGATIVE); CLARITY,URINE CLEAR (CLEAR); COLOR,URINE YELLOW (YELLOW); KETONES,URINE NEGATIVE (NEGATIVE); LEUKOCYTE ESTERASE ,URINE NEGATIVE (NEGATIVE); NITRITE,URINE NEGATIVE (NEGATIVE); PROTEIN,URINE DIPSTICK NEGATIVE (NEGATIVE); URINE UROBILINOGEN 0.2 mg/dL (0.2 - 1)
[2018-02-12 18:48] LABS: INR 1.1; PROTHROMBIN TIME 15.2 seconds (11.9-14.5)
[2018-02-12 18:49] LABS: PARTIAL THROMBOPLASTIN TIME 30.5 seconds (23.8-35.5)
[2018-02-12 18:52] LABS: EPITHELIAL CELLS,URINE RARE /LPF; RBC,URINE 0-5 /HPF (0-5); WBC,URINE (MAN) 0-5 /HPF (0-5)
[2018-02-12 18:58] LABS: ALBUMIN/GLOBULIN RATIO 0.9 (0.8-2.0); ANION GAP 17.3 mmol/L (8-16); CALCIUM 10.1 mg/dL (8.4-10.2); CREATININE, SERUM 1.36 mg/dL (0.72-1.25); POTASSIUM 4.3 mmol/L (3.5-5.1)
[2018-02-12] MEDS ORDERED: SODIUM CHLORIDE 0.9% 1000ML 1,000 ML IV SCH (19:30)
[2018-02-12] MEDS ORDERED: HYDRALAZINE HCL 20 MG/ML VIAL IV STA (19:35)
[2018-02-12] MEDS ORDERED: HYDRALAZINE HCL 20 MG/ML VIAL ONE (19:38)
[2018-02-12] MEDS ORDERED: SODIUM CHLORIDE 0.9% 1000ML 1,000 ML IV ONE ×2 (20:03→20:15)
[2018-02-12] MEDS ORDERED: SODIUM CHLORIDE 0.9% 50ML 50 ML ONE (21:39)
[2018-02-12] MEDS ORDERED: IOPAMIDOL 370 MG/ML 200 ML INFUS..BTL INJ ONE (21:39)
--- NOTE | 2018-02-12 22:01 | Diagnostic Imaging Report ---
EXAM: CT ABDOMEN/PELVIS W DATE: 02/12/2018 5:40 PM INDICATION: \S\LOW ABD PAIN R/ DIVERTICULITIS \S.br\COMPARISON: 11/21/2017 TECHNIQUE: The abdomen and pelvis were scanned using a multidetector helical scanner. Coronal and sagittal reformations were obtained. CT low dose techniques were utilized, as applicable. IV Contrast: 100 ml Isovue 300/370 FINDINGS: LOWER THORAX: Bibasilar scarring. Stable mild loculated right pericardial fluid. Prior median sternotomy. LIVER/BILIARY: No masses. No ductal dilatation. GALLBLADDER: Cholecystectomy. SPLEEN: Unremarkable PANCREAS: Unremarkable ADRENALS: No nodules KIDNEYS: Stable bilateral renal cysts and too small to characterize hypodensities, the largest 4.3 cm of the left interpolar region. No hydronephrosis. GI TRACT: No wall thickening or evidence of obstruction. Diverticulosis. No evidence of appendicitis. VESSELS: Diffuse atherosclerotic changes with again severe proximal SMA narrowing. PERITONEUM/RETROPERITONEUM: No free air or fluid LYMPH NODES: No lymphadenopathy REPRODUCTIVE ORGANS/BLADDER: Increased bladder distention with again mild circumferential bladder, nonspecific. SOFT TISSUES: Small fat-containing inguinal hernias. BONES: Diffusely decreased bone mineralization with multilevel degenerative changes, vertebroplasty from T11 to L4, and height loss of the spine, and right SI joint fixation. IMPRESSION: 1. No new or acute abnormality. Specifically, no evidence of diverticulitis. 2. Unchanged severe narrowing of the proximal SMA without evidence of bowel ischemia. 3. Persistent nonspecific circumferential bladder wall thickening. Signed by: Dr Nohemi Iqbal MD on 02/12/2018 9:58 PM
[2018-02-12] MEDS ORDERED: HYDROMORPHONE 1MG/1ML INJ IV STA (23:04)
[2018-02-12] MEDS ORDERED: HYDROMORPHONE 2MG/ML 2 MG/ML ML ONE (23:40)
[2018-02-13 00:37] VITALS: BP 144/100
== END 2018-02-13 01:04 | disposition home or self-care (01) ==
LOC: ER 17:22
DX: R10.32 Left lower quadrant pain (principal); R11.0 Nausea; K57.92 Diverticulitis of intestine, part unspecified, without perforation or abscess without bleeding; I10 Essential (primary) hypertension; I25.10 Atherosclerotic heart disease of native coronary artery without angina pectoris
CPT/HCPCS: 36415; 74177; 80053; 81001; 82150; 83690; 85025; 85610; 85730; 93005; 99284; J0360; J1170; J2405; J7030; Q9967

== ENCOUNTER 2018-03-02 17:52 | Observation (INO) | payer MEDICARE ==
[~2018-03-02] VITALS: Ht 198.1 cm; Wt 99.8 kg
[2018-03-02] MEDS ORDERED: SODIUM CHLORIDE 0.9% 500ML 500 ML ONE (18:17)
[2018-03-02 18:22] LABS: BASOPHILS % 0.4 % (0.0-1.0); EOSINOPHILS # (AUTO) 0.1 (0.0-0.4); EOSINOPHILS % 1.4 % (0.0-6.0); HEMATOCRIT 40.3 % (38.2-49.6); HEMOGLOBIN 13.7 g/dL (14.0-18.0); LYMPHOCYTES # (AUTO) 1.4 (1.0-3.2); LYMPHOCYTES % 20.3 % (18.0-39.1); MEAN CORPUSCULAR HEMOGLOBIN 31.1 pg (28-32); MEAN CORPUSCULAR VOLUME 91.6 fL (81-99); MONOCYTES # (AUTO) 0.7 (0.2-0.8); MONOCYTES % 9.3 % (4.4-11.3); NEUTROPHILS # (AUTO) 4.7 (2.1-6.9); NEUTROPHILS % 67.9 % (38.7-80.0); PLATELET COUNT 249 x10e3/uL (140-360); RED CELL DISTRIBUTION WIDTH 16.3 % (11.7-14.4)
[2018-03-02] MEDS ORDERED: SODIUM CHLORIDE 0.9% 500ML 500 ML IV ONE (18:30)
[2018-03-02] MEDS ORDERED: HEPARIN SOD (PORCINE) 5,000 UNIT/ML VIAL IV ONE (18:30)
[2018-03-02 18:39] LABS: INR 1.05; PARTIAL THROMBOPLASTIN TIME 28.3 seconds (23.8-35.5); PROTHROMBIN TIME 14.6 seconds (11.9-14.5)
[2018-03-02 18:47] LABS: ALBUMIN 3.9 g/dL (3.5-5.0); ANION GAP 18.4 mmol/L (8-16); CALCIUM 9.6 mg/dL (8.4-10.2); CREATININE, SERUM 1.49 mg/dL (0.72-1.25); POTASSIUM 4.4 mmol/L (3.5-5.1)
[2018-03-02 18:54] LABS: CREATINE KINASE MB 1.8 ng/mL (0-5.0)
--- NOTE | 2018-03-02 19:12 | Diagnostic Imaging Report ---
EXAMINATION: CHEST SINGLE (PORTABLE) INDICATION: Left upper chest pain today. ^CHEST PAIN ^[id number] ^1858 ^Y COMPARISON: Chest radiograph 11/21/2017, chest CT 11/21/2017 FINDINGS: AP view TUBES and LINES: None. LUNGS: Lungs are well inflated. Lungs are clear. There is no evidence of pneumonia or pulmonary edema. PLEURA: No pleural effusion or pneumothorax. HEART AND MEDIASTINUM: The cardiomediastinal silhouette is unremarkable. BONES AND SOFT TISSUES: No acute osseous lesion. T4-T6, T8-T9 compression deformities better seen on CT 11/21/2017 given lack of lateral view. Vertebroplasty changes at T11. Median sternotomy wires. Soft tissues are unremarkable. UPPER ABDOMEN: No free air under the diaphragm. IMPRESSION: No acute thoracic abnormality. Signed by: DR. Jamel Jose MD on 03/02/2018 7:09 PM
[2018-03-02] MEDS ORDERED: SODIUM CHLORIDE 0.9% 1000ML 1,000 ML IV STA (19:30)
[2018-03-02] MEDS ORDERED: KETOROLAC TROMETHAMINE 30 MG/ML VIAL IV NR (21:00)
[2018-03-02 21:56] LABS: ABG PCO2 29 mmHg (41-51); ABG PH 7.47 (7.31-7.41)
[2018-03-02 21:57] LABS: ABG HCO3 21 mmol/L (23-28); ABG PO2 58 mmHg (80-105)
[2018-03-02 22:28] LABS: CLARITY,URINE CLEAR (CLEAR); COLOR,URINE YELLOW (YELLOW); KETONES,URINE NEGATIVE (NEGATIVE); LEUKOCYTE ESTERASE ,URINE NEGATIVE (NEGATIVE); NITRITE,URINE NEGATIVE (NEGATIVE); PROTEIN,URINE DIPSTICK NEGATIVE (NEGATIVE); URINE UROBILINOGEN 0.2 mg/dL (0.2 - 1)
[2018-03-02 22:29] LABS: BILIRUBIN,URINE NEGATIVE (NEGATIVE)
[2018-03-02] MEDS ORDERED: SODIUM CHLORIDE 0.9% 50ML 50 ML ONE (22:37)
[2018-03-02] MEDS ORDERED: IOPAMIDOL 370 MG/ML 200 ML INFUS..BTL INJ ONE (22:37)
[2018-03-02 22:42] LABS: EPITHELIAL CELLS,URINE FEW /LPF; RBC,URINE 0-5 /HPF (0-5); WBC,URINE (MAN) 0-5 /HPF (0-5)
[2018-03-02] MEDS ORDERED: HEPARIN SOD (PORCINE) 5,000 UNIT/ML VIAL ONE (22:46)
[2018-03-03] VITALS (9 sets, daily range): BP systolic 120–166; BP diastolic 78–106
[2018-03-03] MEDS: SODIUM CHLORIDE 0.9% 1000ML 1,000 ML IV SCH ×2 (00:17→08:48)
[2018-03-03] MEDS: MORPHINE SULFATE 2 MG/ML SYR IV PRN ×4 (01:00→19:55)
[2018-03-03] MEDS ORDERED: HEPARIN 25,000 UNIT/D5W 250ML 250 ML IV SCH (01:00)
[2018-03-03] MEDS: ONDANSETRON HCL INJ 2 MG/ML VIAL IV PRN ×3 (01:00→19:55)
[2018-03-03] MEDS ORDERED: HEPARIN 25,000U/0.45% NS 250ML 250 ML ONE (01:05)
[2018-03-03 03:12] LABS: CREATINE KINASE MB 1.6 ng/mL (0-5.0)
[2018-03-03] MEDS ORDERED: AMITIZA24 MCG PO (03:39)
[2018-03-03] MEDS ORDERED: eliquis (03:39)
[2018-03-03] MEDS ORDERED: LUBIPROSTONE 24 MCG CAP PO PRN (04:00)
[2018-03-03 04:54] LABS: BASOPHILS % 0.7 % (0.0-1.0); EOSINOPHILS # (AUTO) 0.1 (0.0-0.4); EOSINOPHILS % 2.4 % (0.0-6.0); HEMATOCRIT 35.8 % (38.2-49.6); HEMOGLOBIN 11.6 g/dL (14.0-18.0); LYMPHOCYTES # (AUTO) 1.1 (1.0-3.2); LYMPHOCYTES % 24.3 % (18.0-39.1); MEAN CORPUSCULAR HEMOGLOBIN 30.3 pg (28-32); MEAN CORPUSCULAR HGB CONC 32.4 g/dL (31-35); MEAN CORPUSCULAR VOLUME 93.5 fL (81-99); MONOCYTES # (AUTO) 0.5 (0.2-0.8); MONOCYTES % 11.1 % (4.4-11.3); NEUTROPHILS # (AUTO) 2.8 (2.1-6.9); NEUTROPHILS % 60.4 % (38.7-80.0); PLATELET COUNT 183 x10e3/uL (140-360); RED BLOOD COUNT 3.83 x10e6/uL (4.3-5.7); RED CELL DISTRIBUTION WIDTH 16.6 % (11.7-14.4)
[2018-03-03 05:15] LABS: ANION GAP 15.3 mmol/L (8-16); CALCIUM 8.5 mg/dL (8.4-10.2); CREATININE, SERUM 1.2 mg/dL (0.72-1.25); POTASSIUM 4.3 mmol/L (3.5-5.1)
[2018-03-03] MEDS ORDERED: APIXABAN 5 MG TABLET PO SCH (09:00)
[2018-03-03] MEDS ORDERED: PANTOPRAZOLE SOD 40 MG TABEC PO ONE (09:00)
[2018-03-03] MEDS: PANTOPRAZOLE SOD 40 MG TABEC PO SCH (09:00)
--- NOTE | 2018-03-03 09:22 | Consultation ---
DATE OF CONSULTATION: PULMONARY CONSULTATION This is a patient of Dr. Salcedo, Dr. Ford, and Dr. Urena. 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 History of small PE in September. History of osteoporotic fracture in November. Now admitted with chest wall pain, which has been intermittent for several weeks. History of hypertension, chronic kidney disease, pulmonary emboli on Eliquis, osteoporosis. ALLERGIC TO SULFA. His home medications have included Lipitor, Plavix, Arixtra, metoprolol, Protonix. He is quite anxious. He has had previous gallbladder surgery in addition to the bypass surgery. 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 He has a history of osteoporosis with osteoporotic fracture. Family history and social history are noncontributory. PHYSICAL EXAMINATION GENERAL: He is a well-developed, anxious, white male. VITALS: Temperature 95.9, pulse 70, respirations 18, blood pressure 149/90. HEAD: Normocephalic and atraumatic. LUNGS: Clear. HEART: Regular rhythm. CHEST: There is chest wall tenderness over the ribs on the left side. ABDOMEN: Nontender. EXTREMITIES: Nonedematous. IMPRESSION: History of pulmonary embolism and coronary artery disease, chronically anticoagulated. Currently on IV heparin. V/Q lung scan is pending. PACS system is nonfunctional at this time. Will attempt to ascertain whether the patient has had a CT scan of the chest and what the results were. The patient has agreed to a short course of nonsteroidal anti-inflammatories. Explained that there were risks involved given the fact that he is on anticoagulation. Thank you for this kind referral. Job#: [id number]
[2018-03-03] MEDS: METOPROLOL TARTRATE 25 MG TAB PO SCH ×2 (09:58→16:35)
[2018-03-03] MEDS: CLOPIDOGREL BISULFATE 75 MG TAB PO SCH (09:58)
[2018-03-03] MEDS: CELECOXIB 100 MG CAP PO SCH ×2 (10:16→16:34)
[2018-03-03 10:35] LABS: CREATINE KINASE MB 1.9 ng/mL (0-5.0)
--- NOTE | 2018-03-03 11:15 | Diagnostic Imaging Report ---
Ventilation/perfusion lung scan Clinical Information: 73 M with chest pain intermittently x 1 month; history of PE Comparison: Chest radiograph 03/02/2018 Discussion: Xenon-133 gas 16 mCi was administered via inhalation. Dynamic images of the lungs in the posterior projection were obtained through single breath, equilibrium, and washout phases. Distribution of tracer activity is irregular throughout the lungs. There are no segmental ventilatory defects. Washout of tracer is diffusely delayed without air trapping. Perfusion images of the lungs were obtained in multiple projections following intravenous administration of approximately 6.6 mCi of Tc-99m MAA. Distribution of tracer is minimally irregular throughout the lungs. The contours of the lungs are well demarcated. There are no segmental perfusion defects of any size. The cardiomediastinal silhouette is unremarkable. Impression: Scan findings represent a VERY LOW probability for acute pulmonary embolic disease based on the PIOPED II criteria. Scan evidence of obstructive lung disease. Signed by: Dr. Paulette Hauser M.D. on 03/03/2018 11:12 AM
[2018-03-03] MEDS ORDERED: ATORVASTATIN 10 MG TAB PO SCH (21:00)
[2018-03-04] MEDS: MORPHINE SULFATE 2 MG/ML SYR IV PRN (00:15)
[2018-03-04] MEDS: ONDANSETRON HCL INJ 2 MG/ML VIAL IV PRN (00:15)
--- NOTE | 2018-03-04 00:47 | Consultation ---
DATE OF CONSULTATION: March 03, 2018 CARDIOLOGY CONSULTATION REQUESTING PHYSICIAN: Dr. Urena. REASON FOR CONSULTATION: Chest pain. HISTORY OF PRESENT ILLNESS: This is a 73-year-old man with history of coronary artery, status post recent CABG, history of pulmonary embolism diagnosed earlier this year, hypertension, and chronic kidney disease who presented with complaints of worsening chest pain. The patient has had chest pain for the last 2 weeks which worsens on palpation. This was felt to be musculoskeletal in etiology; however, yesterday, the patient's chest pain worsened and he presented to the ER for further evaluation. The patient remains on Eliquis for his recent pulmonary embolism. He otherwise denies shortness of breath, palpitations, edema, orthopnea, PND or lightheadedness. He denies any recent coughing or falls. Evaluation thus far includes VQ scan that has a very low probability for acute pulmonary embolic disease. Based on the PIOPED II criteria, there was evidence of obstructive lung disease. Chest x-ray did not demonstrate any acute osseous lesions, compression deformities were present with vertebroplasty changes at T11. There was no acute thoracic abnormality. REVIEW OF SYSTEMS: Negative except as per HPI. PAST MEDICAL HISTORY 1. Coronary artery disease, status post recent non-ST elevation myocardial infarction with recent CABG, ORTIZ to LAD, SVG to diagonal, SVG to OM, and SVG to PDA on 07/05/2017. 2. Recently diagnosed pulmonary embolism. 3. Paroxysmal atrial fibrillation, not on anticoagulation, previously due to GI bleeding. 4. Hypertension. 5. Coronary kidney disease. PAST SURGICAL HISTORY 1. CABG. 2. Umbilical hernia surgery. 3. Back surgery. ALLERGIES: PLEASE SEE EMR. MEDICATIONS: Please see medical list. SOCIAL HISTORY: Denies tobacco or illicit drugs. Occasional alcohol. FAMILY HISTORY: Noncontributory. PHYSICAL EXAMINATION VITAL SIGNS: Temperature 97.2 degrees, pulse 56, respiratory rate 18, blood pressure 133/85, and oxygen saturation 97% on 2 L nasal cannula. GENERAL: An elderly man, well-developed, well-nourished, in no acute distress. HEENT: Normocephalic, atraumatic. Pupils are equal. No scleral icterus. NECK: Supple. No thyromegaly or cervical lymphadenopathy. No carotid bruits. LUNGS: Clear to auscultation bilaterally. No wheezes or crackles. CARDIOVASCULAR: Normal rate, regular rhythm. No murmur. Normal S1, S2. ABDOMEN: Soft, nontender EXTREMITIES: No edema. NEURO: Awake and alert. LABS: WBC 4.6, hemoglobin 11.6, hematocrit 35.8, and platelets 183. Sodium 142, potassium 4.3, chloride 110, CO2 of 21, BUN 14, and creatinine 1.2. Troponin 0.018. D-dimer 0.48. EKG, normal sinus rhythm, left axis deviation, and possible anterior infarct age undetermined. IMPRESSION 1. Left chest wall pain. 2. History of pulmonary embolism, on Eliquis as an outpatient. 3. Coronary artery disease with recent non-ST elevation myocardial infarction, status post 4-vessel coronary artery bypass graft on 07/05/2017. 4. Paroxysmal atrial fibrillation. 5. Hypertension. 6. Chronic kidney disease. RECOMMENDATIONS: Patient ruled out for myocardial infarction with serial cardiac biomarkers. Patient was on Eliquis as an outpatient for anticoagulation. We can switch patient back to Eliquis if no further procedures are planned. VQ was without evidence of acute pulmonary embolism as well. Monitor patient on telemetry. Patient had recent revascularization. No further cardiac evaluation is indicated at this time. Continue home cardiac medications. Thank you for this consult. We will continue to follow. Job#: [id number] VALARIE
[2018-03-04 01:05] VITALS: BP 137/78
[2018-03-04 03:00] VITALS: BP 112/79
[2018-03-04 05:19] LABS: BASOPHILS % 0.7 % (0.0-1.0); EOSINOPHILS # (AUTO) 0.2 (0.0-0.4); EOSINOPHILS % 3.3 % (0.0-6.0); HEMATOCRIT 35.4 % (38.2-49.6); HEMOGLOBIN 11.4 g/dL (14.0-18.0); LYMPHOCYTES # (AUTO) 0.8 (1.0-3.2); LYMPHOCYTES % 18.2 % (18.0-39.1); MEAN CORPUSCULAR HEMOGLOBIN 30.6 pg (28-32); MEAN CORPUSCULAR HGB CONC 32.2 g/dL (31-35); MEAN CORPUSCULAR VOLUME 95.2 fL (81-99); MONOCYTES # (AUTO) 0.5 (0.2-0.8); NEUTROPHILS # (AUTO) 2.9 (2.1-6.9); NEUTROPHILS % 64.9 % (38.7-80.0); PLATELET COUNT 158 x10e3/uL (140-360); RED BLOOD COUNT 3.72 x10e6/uL (4.3-5.7); RED CELL DISTRIBUTION WIDTH 16.2 % (11.7-14.4)
[2018-03-04] MEDS ORDERED: PANTOPRAZOLE SOD 40 MG TABEC PO SCH (07:30)
[2018-03-04 08:33] VITALS: BP 122/69
[2018-03-04] MEDS: PANTOPRAZOLE SOD 40 MG TABEC PO SCH (09:56)
[2018-03-04] MEDS: CLOPIDOGREL BISULFATE 75 MG TAB PO SCH (09:56)
[2018-03-04] MEDS: METOPROLOL TARTRATE 25 MG TAB PO SCH (09:57)
[2018-03-04] MEDS: CELECOXIB 100 MG CAP PO SCH (09:58)
--- NOTE | 2018-05-13 19:16 | Discharge Summary ---
DISCHARGE DIAGNOSES 1. Pleuritic chest pain. 2. Hypertension. 3. Chronic kidney disease, stage 3. 4. Hypoxia. HISTORY OF PRESENT ILLNESS AND HOSPITAL COURSE: See hospital chart for full details. Patient is a gentleman who presented with a 2-week history of chest pain, hypoxia, and dyspnea with a pleuritic component. Was brought in, seen by pulmonary who felt like patient is also suffering from costochondritis as I was. He had a V/Q scan that was probability. He was given some nonsteroidal anti-inflammatory, which resolved his pain completely, so then he was able to be discharged home with p.o. nonsteroidals and told to follow up in 1 to 2 weeks with his primary care physician. Please see hospital chart for full details. Job#: [id number] [facility]
== END 2018-03-04 11:31 | disposition home or self-care (01) ==
LOC: ER 17:52 → ERHOLD 23:21 → IMCU 03-03 00:15
PROVIDERS: ADMIT Internal Medicine; ATTEND Internal Medicine
DX: M94.0 Chondrocostal junction syndrome [Tietze] (principal); I12.9 Hypertensive chronic kidney disease with stage 1 through stage 4 chronic kidney disease, or unspecified chronic kidney disease; N18.3 Chronic kidney disease, stage 3 (moderate); R09.02 Hypoxemia; I25.2 Old myocardial infarction; I25.10 Atherosclerotic heart disease of native coronary artery without angina pectoris; I48.0 Paroxysmal atrial fibrillation; K21.9 Gastro-esophageal reflux disease without esophagitis; E78.00 Pure hypercholesterolemia, unspecified; Z88.2 Allergy status to sulfonamides; Z79.01 Long term (current) use of anticoagulants; Z86.711 Personal history of pulmonary embolism
CPT/HCPCS: 36415 ×2; 36600; 71045; 78582; 80048; 80053; 81001; 82550 ×2; 82553 ×2; 82805; 83880; 84484 ×2; 85025 ×3; 85379; 85610; 85730 ×2; 93005; 99284; A9540; A9558; G0378 ×3; J1644 ×2; J1885; J2270 ×2; J2405 ×2; J7030 ×2; J7040; Q9967; S0164 ×2

== ENCOUNTER 2018-03-15 08:13 | Emergency (ER) | payer MEDICARE ==
[~2018-03-15] VITALS: Ht 198.1 cm; Wt 99.8 kg
[~2018-03-15 08:13] MED LIST changes: +AMITIZA24 MCG PO; +eliquis
--- NOTE | 2018-03-15 09:00 | Diagnostic Imaging Report ---
PROCEDURE: X-RAY CHEST, TWO VIEWS COMPARISON: Chest radiograph 03/02/2018. INDICATIONS: FLANK PAIN FINDINGS: Lungs are well-inflated. No focal consolidation, pleural effusion, or pneumothorax. Scattered foci of linear scar are unchanged. Stable cardiomediastinal contour with median sternotomy wires and tortuosity of the thoracic aorta. Colonic interposition between the liver and right hemidiaphragm. Regional skeletal structures are intact. Vertebroplasty cement within and adjacent lower thoracic vertebral bodies. CONCLUSION: No acute cardiopulmonary abnormality. Dictated by: Esa Gomez M.D. on 03/15/2018 at 9:09 Electronically approved by: Esa Gomez M.D. on 03/15/2018 at 9:09
--- NOTE | 2018-03-15 09:10 | Diagnostic Imaging Report ---
PROCEDURE: CT ABDOMEN AND PELVIS WITHOUT CONTRAST TECHNIQUE: The abdomen and pelvis were scanned utilizing a multidetector helical scanner from the diaphragm to the lesser trochanter. No oral or intravenous contrast was administered per referring physician request. Coronal and sagittal multiplanar reformations were obtained. COMPARISON: 06/11/2017 INDICATIONS: right abdominal pain FINDINGS: ABSENCE OF INTRAVENOUS CONTRAST DECREASES SENSITIVITY FOR DETECTION OF FOCAL LESIONS AND VASCULAR PATHOLOGY. LOWER THORAX: Scattered foci of linear scar most notably laterally within the lingula and left lower lobe. Atherosclerotic calcification of the [place] coronary arteries. Status post median sternotomy.. HEPATOBILIARY: No focal hepatic lesion or intrahepatic biliary dilatation. Status post cholecystectomy. SPLEEN: No splenomegaly. PANCREAS: No focal masses or ductal dilatation. ADRENALS: No adrenal nodules. KIDNEYS/URETERS: No hydronephrosis, calculi, or solid mass lesion. Unchanged 4.3 cm left renal cyst; smaller cysts project exophytically from the medial and lateral aspects of the lower pole of the left kidney, also not significantly changed. Anterior right lower pole exophytic cyst also unchanged. No renal, ureteral, or bladder calculi. No hydronephrosis. PELVIC ORGANS/BLADDER: The urinary bladder is collapsed with associated wall thickening. Coarse prostatic calcifications. PERITONEUM / RETROPERITONEUM: No free air or fluid. LYMPH NODES: No pelvic sidewall, retroperitoneal, or mesenteric lymphadenopathy. VESSELS: Atherosclerotic calcification of the abdominal aorta and major branch vessels without aneurysmal dilatation. Evaluation is otherwise limited in the absence of intravenous contrast. GI TRACT: Innumerable diverticula along the course of the colon, at highest concentration along the sigmoid, without wall thickening or adjacent inflammatory change. Normal appendix. The stomach is collapsed with prominence of the rugal folds. No small bowel dilatation to suggest obstruction. BONES AND SOFT TISSUES: No focal soft tissue abnormalities. Multilevel vertebroplasty changes. Surgical hardware along the right sacroiliac joint. Diffuse osteopenia. No acute osseous abnormalities. IMPRESSION: No acute intra-abdominal or pelvic CT abnormalities. No evidence of urolithiasis. Diffuse large bowel diverticulosis without findings of diverticulitis. Atherosclerotic vascular disease. Diffuse osteopenia status post multilevel vertebroplasty. Dictated by: Esa Gomez M.D. on 03/15/2018 at 9:18 Electronically approved by: Esa Gomez M.D. on 03/15/2018 at 9:18
[2018-03-15 09:25] LABS: BASOPHILS % 0.7 % (0.0-1.0); EOSINOPHILS # (AUTO) 0.1 (0.0-0.4); EOSINOPHILS % 1.2 % (0.0-6.0); HEMATOCRIT 41.2 % (38.2-49.6); HEMOGLOBIN 13.9 g/dL (14.0-18.0); LYMPHOCYTES # (AUTO) 0.9 (1.0-3.2); LYMPHOCYTES % 14.5 % (18.0-39.1); MEAN CORPUSCULAR HGB CONC 33.7 g/dL (31-35); MONOCYTES # (AUTO) 0.7 (0.2-0.8); NEUTROPHILS # (AUTO) 4.3 (2.1-6.9); NEUTROPHILS % 70.8 % (38.7-80.0); PLATELET COUNT 221 x10e3/uL (140-360); RED BLOOD COUNT 4.48 x10e6/uL (4.3-5.7); RED CELL DISTRIBUTION WIDTH 16.4 % (11.7-14.4)
[2018-03-15 09:37] LABS: INR 1.01; PROTHROMBIN TIME 14.2 seconds (11.9-14.5)
[2018-03-15 09:38] LABS: PARTIAL THROMBOPLASTIN TIME 27.6 seconds (23.8-35.5)
[2018-03-15 09:46] LABS: ALBUMIN 4.3 g/dL (3.5-5.0); ALBUMIN/GLOBULIN RATIO 1.1 (0.8-2.0); ANION GAP 16.3 mmol/L (8-16); CALCIUM 9.8 mg/dL (8.4-10.2); CREATININE, SERUM 1.43 mg/dL (0.72-1.25); MAGNESIUM 2.1 MG/DL (1.3-2.1); POTASSIUM 4.3 mmol/L (3.5-5.1)
[2018-03-15 09:56] LABS: CREATINE KINASE MB 2.7 ng/mL (0-5.0)
[2018-03-15] MEDS ORDERED: LIDOCAINE 5% PATCH TP ONE (10:00)
[2018-03-15] MEDS ORDERED: HYDROCODONE/APAP 10MG-325MG TAB PO ONE (10:00)
[2018-03-15 10:31] LABS: CLARITY,URINE CLEAR (CLEAR); COLOR,URINE YELLOW (YELLOW)
[2018-03-15 10:32] LABS: LEUKOCYTE ESTERASE ,URINE NEGATIVE (NEGATIVE); NITRITE,URINE NEGATIVE (NEGATIVE)
[2018-03-15 10:34] LABS: BACTERIA,URINE FEW /HPF; BILIRUBIN,URINE NEGATIVE (NEGATIVE); KETONES,URINE NEGATIVE (NEGATIVE); PROTEIN,URINE DIPSTICK NEGATIVE (NEGATIVE); RBC,URINE 0-5 /HPF (0-5); URINE UROBILINOGEN 0.2 mg/dL (0.2 - 1); WBC,URINE (MAN) 0-5 /HPF (0-5)
[2018-03-15 10:35] LABS: EPITHELIAL CELLS,URINE FEW /LPF; MUCUS,URINE FEW (RARE)
[2018-03-15] MEDS ORDERED: ONDANSETRON HCL 4 MG ORAL DISINTEGRATING TAB PO STA (12:01)
[2018-03-15 14:13] VITALS: BP 177/100
== END 2018-03-15 14:39 | disposition home or self-care (01) ==
LOC: ER 08:13
DX: R10.9 Unspecified abdominal pain (principal); M54.5 Low back pain; M94.0 Chondrocostal junction syndrome [Tietze]; G20 Parkinson's disease; I10 Essential (primary) hypertension; I51.9 Heart disease, unspecified; Z86.73 Personal history of transient ischemic attack (TIA), and cerebral infarction without residual deficits
CPT/HCPCS: 36415; 71046; 74176; 80053; 81001; 82550; 82553; 83690; 83735; 84484; 85025; 85610; 85730; 87086; 93005; 99284; Q0162

== ENCOUNTER 2018-04-02 17:55 | Emergency (ER) | payer MEDICARE ==
[~2018-04-02] VITALS: Ht 198.1 cm; Wt 99.8 kg
[2018-04-02 19:59] LABS: BASOPHILS % 0.4 % (0.0-1.0); EOSINOPHILS % 0.6 % (0.0-6.0); HEMATOCRIT 40.7 % (38.2-49.6); HEMOGLOBIN 13.5 g/dL (14.0-18.0); LYMPHOCYTES # (AUTO) 0.6 (1.0-3.2); LYMPHOCYTES % 8.5 % (18.0-39.1); MEAN CORPUSCULAR HEMOGLOBIN 30.2 pg (28-32); MEAN CORPUSCULAR HGB CONC 33.2 g/dL (31-35); MEAN CORPUSCULAR VOLUME 91.1 fL (81-99); MONOCYTES # (AUTO) 0.6 (0.2-0.8); MONOCYTES % 8.8 % (4.4-11.3); NEUTROPHILS # (AUTO) 5.6 (2.1-6.9); NEUTROPHILS % 80.8 % (38.7-80.0); PLATELET COUNT 221 x10e3/uL (140-360); RED BLOOD COUNT 4.47 x10e6/uL (4.3-5.7); RED CELL DISTRIBUTION WIDTH 15.9 % (11.7-14.4)
[2018-04-02] MEDS ORDERED: DIATRIZOATE MEGL/DIATRIZOA SOD 30 ML BTL PO ONE (20:01)
[2018-04-02 20:07] LABS: BILIRUBIN,URINE NEGATIVE (NEGATIVE); KETONES,URINE NEGATIVE (NEGATIVE); LEUKOCYTE ESTERASE ,URINE NEGATIVE (NEGATIVE); NITRITE,URINE NEGATIVE (NEGATIVE); PROTEIN,URINE DIPSTICK NEGATIVE (NEGATIVE); URINE UROBILINOGEN 0.2 mg/dL (0.2 - 1)
[2018-04-02 20:15] LABS: CLARITY,URINE CLEAR (CLEAR); COLOR,URINE YELLOW (YELLOW); EPITHELIAL CELLS,URINE RARE /LPF; RBC,URINE 0-5 /HPF (0-5); WBC,URINE (MAN) 0-5 /HPF (0-5)
[2018-04-02 20:24] LABS: ANION GAP 16.3 mmol/L (8-16); CALCIUM 8.9 mg/dL (8.4-10.2); CREATININE, SERUM 1.3 mg/dL (0.72-1.25); POTASSIUM 4.3 mmol/L (3.5-5.1)
[2018-04-02] MEDS ORDERED: SODIUM CHLORIDE 0.9% 1000ML 1,000 ML IV ONE (21:00)
[2018-04-02] MEDS ORDERED: IOPAMIDOL 370 MG/ML 200 ML INFUS..BTL INJ ONE (21:26)
[2018-04-02] MEDS ORDERED: SODIUM CHLORIDE 0.9% 50ML 50 ML ONE (21:26)
--- NOTE | 2018-04-02 22:16 | Diagnostic Imaging Report ---
EXAM: CT ABDOMEN AND PELVIS with IV CONTRAST DATE: 04/02/2018 7:41 PM Time stamp on Exam: 2144 hours INDICATION: Right lower quadrant pain COMPARISON: None TECHNIQUE: The abdomen and pelvis were scanned using a multidetector helical scanner. Coronal and sagittal reformations were obtained. Dose modulation, iterative reconstruction, and/or weight based adjustment of the mA/kV was utilized to reduce the radiation dose to as low as reasonably achievable. Routine protocol performed. IV Contrast: 100 cc Isovue-370 Oral Contrast: Gastrografin FINDINGS: LOWER THORAX: Emphysematous changes. Small pericardial effusion. LIVER: No masses BILIARY: Cholecystectomy without ductal dilation. SPLEEN: No masses PANCREAS: Pancreatic atrophy. ADRENALS: No nodules KIDNEYS: Symmetric perfusion. No enhancing masses. No hydronephrosis. Bilateral simple renal cysts. The largest is in the superior pole of the left kidney measuring 4.5 cm. GI TRACT: No distention, wall thickening or evidence of obstruction. Sigmoid colon diverticulosis. The colon is very redundant. The cecum is in the right upper abdomen interposition between the diaphragm and liver. Normal appendix. VESSELS: Mild atherosclerotic changes of the abdominal aorta and branches without aneurysm. PERITONEUM/RETROPERITONEUM: No free air or fluid LYMPH NODES: No lymphadenopathy REPRODUCTIVE ORGANS: Coarse calcifications in the prostate which is normal in size. BLADDER: Not distended SOFT TISSUES: Unremarkable BONES: Diffuse bone demineralization. Screws through the right sacroiliac joint. Compression fractures of all visible vertebral bodies. Vertebroplasty changes T12-L5. IMPRESSION: No acute findings in the abdomen or pelvis. Chronic findings include: * Bilateral simple renal cysts, no follow-up indicated * Redundant colon with the cecum and normal appendix in the right upper abdomen. * Colonic diverticulosis without evidence of diverticulitis. * Osteoporosis with chronic vertebral body fractures. Signed by: Dr. Janie Charles M.D. on 04/02/2018 10:13 PM
[2018-04-02 22:54] VITALS: BP 152/108
== END 2018-04-02 23:09 | disposition home or self-care (01) ==
LOC: ER 17:55
DX: R10.31 Right lower quadrant pain (principal); I25.10 Atherosclerotic heart disease of native coronary artery without angina pectoris; E78.5 Hyperlipidemia, unspecified; G89.29 Other chronic pain; I25.2 Old myocardial infarction; Z86.73 Personal history of transient ischemic attack (TIA), and cerebral infarction without residual deficits; Z86.718 Personal history of other venous thrombosis and embolism
CPT/HCPCS: 36415; 74177; 80053; 81001; 82150; 83690; 85025; 99284; J7030; Q9663; Q9967

== ENCOUNTER 2018-04-07 10:21 | Emergency (ER) | payer MEDICARE ==
[~2018-04-07] VITALS: Ht 198.1 cm; Wt 106.6 kg
[2018-04-07 12:12] VITALS: BP 139/94
== END 2018-04-07 11:16 | disposition home or self-care (01) ==
LOC: ER 10:21
DX: R10.31 Right lower quadrant pain (principal); I10 Essential (primary) hypertension; K21.9 Gastro-esophageal reflux disease without esophagitis
CPT/HCPCS: 99282

== ENCOUNTER 2018-04-25 07:15 | Observation (INO) | payer MEDICARE ==
[~2018-04-25] VITALS: Ht 198.1 cm; Wt 96.6 kg
[2018-04-25] MEDS ORDERED: ACETAMINOPHEN/CODEINE 300MG - 30MG TAB ONE (13:44)
[2018-04-25] MEDS ORDERED: ACETAMINOPHEN/CODEINE 300MG - 30MG TAB PO PRN (14:30)
[2018-04-25] MEDS ORDERED: PROPOFOL IV EMULSION 10 MG/ML 50 ML VIAL ONE (14:46)
[2018-04-25] MEDS ORDERED: HYOSCYAMINE SULFATE 0.5 MG/ML INJ ONE (14:46)
[2018-04-25 15:03] VITALS: BP 128/71
[2018-04-25 15:04] VITALS: BP 128/71
[2018-04-25] MEDS ORDERED: DICYCLOMINE HCL20 MG PO (15:11)
[2018-04-25] MEDS ORDERED: DULCOLAX5 MG PO (15:11)
[2018-04-25] MEDS ORDERED: AMITIZA24 MCG PO (15:11)
[2018-04-25 16:32] VITALS: BP 128/71
[2018-04-25] MEDS: METOPROLOL TARTRATE 25 MG TAB PO SCH (16:38)
[2018-04-25] MEDS: PANTOPRAZOLE SOD 40 MG TABEC PO SCH (16:38)
[2018-04-25] MEDS: DICYCLOMINE HCL 20 MG TAB PO SCH ×2 (16:39→21:40)
[2018-04-25] MEDS ORDERED: FENTANYL CITRATE/PF 100MCG/2 ML INJ ONE (17:47)
[2018-04-25] MEDS ORDERED: MIDAZOLAM HCL 2 MG/2 ML VIAL ONE (17:47)
[2018-04-25] MEDS ORDERED: CITRATE OF MAGNESIA 300ML BOTTLE PO ONE (18:00)
[2018-04-25 20:00] VITALS: BP 130/68
[2018-04-25] MEDS ORDERED: ATORVASTATIN 10 MG TAB PO SCH (21:00)
[2018-04-26] VITALS: BP 105/61
[2018-04-26 04:00] VITALS: BP 106/62
[2018-04-26] MEDS: PANTOPRAZOLE SOD 40 MG TABEC PO SCH (07:30)
[2018-04-26] MEDS ORDERED: CITRATE OF MAGNESIA 300ML BOTTLE PO ONE (07:30)
--- NOTE | 2018-04-26 07:54 | Progress Note ---
DATE: Mr. Odell doing fine, no change overall. Still complaining of right upper quadrant pain. So far his workup is negative including MRI cholangiogram. Yesterday, on his colonoscopy, I could not intubate the cecum well, so patient was scheduled for barium enema, however, the machine at the x-ray broke, so we postponed until this morning. If his barium enema also does not reveal a source of his illness, pain, will send for second opinion in the medical center. Job#: [id number]
[2018-04-26] MEDS: DICYCLOMINE HCL 20 MG TAB PO SCH (09:00)
[2018-04-26] MEDS: METOPROLOL TARTRATE 25 MG TAB PO SCH (09:00)
[2018-04-26 09:05] VITALS: BP 120/79
[2018-04-26 11:16] VITALS: BP 120/79
== END 2018-04-26 11:46 | disposition home or self-care (01) ==
LOC: OR 07:15 → INTOOBSV 13:35 → PACU V 13:35 → MED/SURG 14:46
PROVIDERS: ADMIT Internal Medicine Gastroenterology; ATTEND Internal Medicine Gastroenterology
DX: K29.70 Gastritis, unspecified, without bleeding (principal); K44.9 Diaphragmatic hernia without obstruction or gangrene; K57.30 Diverticulosis of large intestine without perforation or abscess without bleeding; R10.11 Right upper quadrant pain; K59.00 Constipation, unspecified; I10 Essential (primary) hypertension; G20 Parkinson's disease; I25.2 Old myocardial infarction; Z86.73 Personal history of transient ischemic attack (TIA), and cerebral infarction without residual deficits; Z95.1 Presence of aortocoronary bypass graft; Z79.01 Long term (current) use of anticoagulants; K21.9 Gastro-esophageal reflux disease without esophagitis; I25.10 Atherosclerotic heart disease of native coronary artery without angina pectoris; Z88.2 Allergy status to sulfonamides; K64.8 Other hemorrhoids
CPT/HCPCS: 43239; 45378; 88305; 88312; 93005; G0378 ×2; J1980; J2250; S0164

== ENCOUNTER 2018-06-01 12:46 | Observation (INO) | payer MEDICARE ==
[~2018-06-01] VITALS: Ht 198.1 cm; Wt 103.6 kg
[~2018-06-01 12:46] MED LIST changes: +DICYCLOMINE HCL20 MG PO; +DULCOLAX5 MG PO
--- OUTSIDE RECORDS SUMMARY | 2018-06-01 12:51 | XMS REPORT | Continuity of Care Document ---
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 [facility] [place] HYPOTENSION Active 09/02/2017 [facility] CHEST Active 08/26/2017 [facility] Encounter for surgical aftercare following surgery on the circulatory system 08/17/2017 11/15/2017 [facility] HIE Active 08/10/2017 [facility] [place] NSTEMI Active 07/11/2017 [facility] DEBILITY Active 07/11/2017 [facility] ACUTE NSTEMI Active 07/11/2017 [facility] R10.11 - RIGHT UPPER QUADRANT PAIN Active 08/23/2016 [facility] BACKPAIN Active 02/12/2015 [facility] Acute tubular necrosis Active Problem 11/15/2017 [facility] [place] Debility Active Problem 11/15/2017 [facility] Atrial fibrillation with RVR Active Problem 11/15/2017 [facility] [place] CVA (<span ID="[id number]</span>) Active Problem 11/15/2017 [id number] Chest pain Active Problem 11/15/2017 [facility] Chronic back pain Active Problem 11/15/2017 [facility] Autonomic dysfunction Active Problem 11/15/2017 [facility] History of kyphoplasty Active Problem 11/15/2017 [facility] Hyperlipidemia Active Problem 11/15/2017 [facility] Hypertension Active Problem 11/15/2017 [facility], [facility] [place],[facility] [place] Shock liver Active Problem 11/15/2017 [facility] [place] Generalized muscle weakness Active Problem 11/15/2017 [facility] [place] Obesity Active Problem 11/15/2017 [facility] [place] Sepsis with organ dysfunction Active Problem 11/15/2017 [facility] [place] Other malaise 11/15/2017 [facility] Non-ST elevation myocardial infarction 11/15/2017 [facility] Acute kidney failure, unspecified 11/15/2017 [facility] Morbid obesity due to excess calories 11/15/2017 [facility] Thrombocytopenia, unspecified 11/15/2017 [facility] Acute posthemorrhagic anemia 11/15/2017 [facility] Hypomagnesemia 11/15/2017 [facility] Parkinson's disease 11/15/2017 [facility] Unspecified atrial fibrillation 11/15/2017 [facility] Atherosclerotic heart disease of [place] coronary artery without angina pectoris 11/15/2017 [facility] Presence of aortocoronary bypass graft 11/15/2017 [facility] Other abnormalities of gait and mobility 11/15/2017 [facility] Hypokalemia 11/15/2017 [facility] Body mass index 29.0-29.9, adult 11/15/2017 [facility] Other acute postprocedural pain 11/15/2017 [facility] Other lack of coordination 11/15/2017 [facility] Abnormal posture 11/15/2017 [facility] Hyperlipidemia, unspecified 11/15/2017 [facility] Other streptococcal sepsis 11/04/2017 [facility] Acute respiratory failure with hypoxia 11/04/2017 [facility] Cardiac tamponade 11/04/2017 [facility] Acute and subacute hepatic failure without coma 11/04/2017 [facility] Acute kidney failure with tubular necrosis 11/04/2017 [facility] Cerebral infarction due to embolism of right posterior cerebral artery 11/04/2017 [facility] Pneumonia, unspecified organism 11/04/2017 [facility] Severe sepsis with septic shock 11/04/2017 [facility] Toxic encephalopathy 11/04/2017 [facility] Pericardial effusion 11/04/2017 [facility] Acidosis 11/04/2017 [facility] Hyperosmolality and hypernatremia 11/04/2017 [facility] Melena 11/04/2017 [facility] Essential hypertension 11/04/2017 [facility] Nosocomial condition 11/04/2017 [facility] Hyperkalemia 11/04/2017 [facility] Restlessness and agitation 11/04/2017 [facility] Urethral stricture, unspecified 11/04/2017 [facility] Hypocalcemia 11/04/2017 [facility] Feeding difficulties 11/04/2017 [facility] Claustrophobia 11/04/2017 [facility] Dysphagia, unspecified 11/04/2017 [facility] NON-ST ELEVATION (NSTEMI) MYOCARDIAL INF Active [facility] OTHER MALAISE Active [facility] ATHSCL HEART DISEASE OF [place] CORONARY Active [facility] CHEST PAIN, UNSPECIFIED Active [facility] HYPOTENSION, UNSPECIFIED Active [facility] HYPOXEMIA Active [facility] Medications Medication Details Route Status Patient Instructions Ordering Provider Order Date Source metoprolol 25 mg oral tablet, extended release 25 mg=1 tab, PO, Daily, # 30 tab, 0 Refill(s), Pharmacy: [facility] [id number] Active 09/04/2017 [facility] metoprolol extended release 25 mg, 1 tab, Route: PO, Drug form: ERTAB, Daily, Start date: 09/04/17 10:45:00 CDT, Duration: 30 day, Stop date: 10/04/17 9:00:00 CDTNotes: (Same as: Toprol XL) Do Not Crush Inactive 09/04/2017 [facility] Protonix 40 mg, 1 tab, Route: PO, Drug form: ECTAB, Daily, Dosing Weight 104.545, kg, Start date: 09/04/17 9:00:00 CDT, Duration: 30 day, Stop date: 10/03/17 9:00:00 CDTNotes: Tablet should not be chewed or crushed. (Same as: Protonix) Inactive 09/04/2017 [facility] ferrous sulfate 325 mg, 1 tab, Route: PO, Drug form: ECTAB, Daily, Dosing Weight 104.545, kg, Start date: 09/04/17 9:00:00 CDT, Duration: 30 day, Stop date: 10/03/17 9:00:00 CDTNotes: Give with food. "Do Not Crush" Inactive 09/04/2017 [facility] Plavix 75 mg, 1 tab, Route: PO, Drug form: TAB, Daily, Dosing Weight 104.545, kg, Start date: 09/04/17 9:00:00 CDT, Duration: 30 day, Stop date: 10/03/17 9:00:00 CDTNotes: (Same As: Plavix) Inactive 09/04/2017 [facility] Aspirin 81 MG Chewable Tablet 81 mg, 1 tab, Route: PO, Drug form: CHEWTAB, Daily, Dosing Weight 104.545, kg, Start date: 09/04/17 9:00:00 CDT, Duration: 30 day, Stop date: 10/03/17 9:00:00 CDTNotes: Take with food. Inactive 09/04/2017 [facility] Amiodarone 200 mg, 1 tab, Route: PO, Drug form: TAB, Daily, Dosing Weight 104.545, kg, Start date: 09/04/17 9:00:00 CDT, Duration: 30 day, Stop date: 10/03/17 9:00:00 CDTNotes: (Same as: Cordarone) Inactive 09/04/2017 [facility] atorvastatin 10 mg, 1 tab, Route: PO, Drug form: TAB, Bedtime, Dosing Weight 104.545, kg, Start date: 09/03/17 21:00:00 CDT, Duration: 30 day, Stop date: 10/02/17 21:00:00 CDTNotes: (Same As: Lipitor) No Longer Active 09/04/2017 [facility] Amiodarone 200 mg, Route: PO, Drug form: TAB, BID, Dosing Weight 104.545, kg, Start date: 09/03/17 17:00:00 CDT, Duration: 30 day, Stop date: 10/03/17 9:00:00 CDT Inactive 09/03/2017 [facility] Carbidopa 25 MG / Levodopa 100 MG Oral Tablet 1 tab, Route: PO, Drug Form: TAB, Dosing Weight 104.545, kg, TID, Start date: 09/03/17 13:00:00 CDT, Duration: 30 day, Stop date: 10/03/17 9:00:00 CDTNotes: Take with milk or food. (Same As: Sinemet) No Longer Active 09/03/2017 [facility] Lactulose 667 MG/ML Oral Solution 30 gm, 45 mL, Route: PO, Drug form: SYRP, ONCE, Dosing Weight 104.545, kg, Start date: 09/03/17 9:43:00 CDT, Stop date: 09/03/17 9:43:00 CDTNotes: (Same as:Chronulac) Inactive 09/03/2017 [facility] d50 syringe 50 gm, 100 mL, Route: IVP, Drug Form: INJ, Dosing Weight 104.545, kg, ONCE, Start date: 09/03/17 9:43:00 CDT, Stop date: 09/03/17 9:43:00 CDT Inactive 09/03/2017 [facility] Kayexalate 45 gm, 180 mL, Route: PO, Drug form: SUSP, ONCE, Dosing Weight 104.545, kg, Start date: 09/03/17 9:43:00 CDT, Stop date: 09/03/17 9:43:00 CDTNotes: (sodium polystyrene sulfonate 15 gm/60 ml LEONARDO) Shake well before use. (Same as: Kayexalate, SPS) Inactive 09/03/2017 [facility] Acetaminophen 325 MG / Hydrocodone Bitartrate 5 MG Oral Tablet [[place] 5/325] 1 tab, Route: PO, Drug Form: TAB, Dosing Weight 104.545, kg, Q4H, PRN Pain Score 4-6, Start date: 09/03/17 9:06:00 CDT, Duration: 30 day, Stop date: 10/03/17 9:05:00 CDTNotes: (Same as: [place] 325/5) Do not exceed 4gm/day of acetaminophen. No Longer Active 09/03/2017 [facility] Saline Flush 0.9% 10 ml, Route: IVP, Drug Form: INJ, Dosing Weight 101.364, kg, Q12H, Start date: 09/03/17 9:00:00 CDT, Duration: 30 day, Stop date: 10/02/17 21:00:00 CDTNotes: (Same as: BD Posiflush) No Longer Active 09/03/2017 [facility] Famotidine 20 mg, 2 mL, Route: IVP, Drug form: INJ, Q12H, Dosing Weight 101.364, kg, Start date: 09/03/17 9:00:00 CDT, Duration: 30 day, Stop date: 10/02/17 21:00:00 CDTNotes: (Same as: Pepcid) Can be dilute in 5-10cc NS IVP: Slow IV push over at least 2 minutes. Inactive 09/03/2017 [facility] heparin 5,000 unit, 1 mL, Route: SUB-Q, Drug form: INJ, Q12H, Dosing Weight 104.545, kg, Start date: 09/03/17 9:00:00 CDT, Duration: 30 day, Stop date: 10/02/17 21:00:00 CDTNotes: porcine heparin No Longer Active 09/03/2017 [facility] Dextrose 50% Syringe 25 gm, Route: IVP, Dosing Weight 104.545, kg, ONCE, Start date: 09/03/17 8:51:00 CDT, Stop date: 09/03/17 8:51:00 CDT Inactive 09/03/2017 [facility] Insulin regular 10 unit, 0.1 mL, Route: IV, Drug form: INJ, ONCE, Dosing Weight 104.545, kg, Start date: 09/03/17 8:51:00 CDT, Stop date: 09/03/17 8:51:00 CDTNotes: (Same as: Humulin R and NovoLIN R) WASTE: F/P - Black; E - AkeLex [employer] Bin (Do not shake) Inactive 09/03/2017 [facility] Kayexalate 30 gm, Route: PO, Drug form: SUSP, ONCE, Dosing Weight 104.545, kg, Start date: 09/03/17 8:47:00 CDT, Stop date: 09/03/17 8:47:00 CDT Inactive 09/03/2017 [facility] Atropine 0.5 mg, 5 mL, Route: IV, Drug form: INJ, PRN, Dosing Weight 104.545, kg, PRN Bradycardia, Start date: 09/03/17 7:22:00 CDT, Duration: 30 day, Stop date: 10/03/17 7:21:00 CDT No Longer Active 09/03/2017 [facility] cefepime 1 gm, Route: IVPB, ABXQ8H, Dosing Weight 101.364, kg, (CrCl >/=50 ml/min), Start date: 09/03/17 0:00:00 CDT, Duration: 30 day, Stop date: 10/02/17 16:00:00 CDT, ABX Indication: Skin/Soft Tissue InfectionNotes: (Same As: Maxipime) MEDICATION WASTE Product Size: 1000 mg Product Wasted: ___ mg Inactive 09/03/2017 [facility] Fentanyl 25 microgram, 0.5 mL, Route: IVP, Drug form: INJ, Q4H, Dosing Weight 101.364, kg, PRN Pain Score 6-10, Start date: 09/02/17 23:32:00 CDT, Stop date: 10/02/17 23:31:00 CDT, Pain Score 6-10 | Other -See C ommentNotes: (Same as: Sublimaze) Preservative free. No Longer Active 09/03/2017 [facility] Sodium Chloride 0.9% IV 1,000 mL 1,000 mL, Rate: 100 ml/hr, Infuse over: 10 hr, Route: IV, Dosing Weight 101.364 kg, Total Volume: 1,000, Start date: 09/02/17 22:47:00 CDT, Duration: 30 day, Stop date: 10/02/17 22:46:00 CDT, 2.36, m2 No Longer Active 09/03/2017 [facility] Saline Flush 0.9% 10 ml, Route: IVP, Drug Form: INJ, Dosing Weight 101.364, kg, PRN, PRN Line Flush, Start date: 09/02/17 21:55:00 CDT, Duration: 30 day, Stop date: 10/02/17 21:54:00 CDTNotes: (Same as: BD Posiflush) No Longer Active 09/03/2017 [facility] Nystatin 100 UNT/MG Topical Powder 1 appl, Route: TOP, PRN, Drug form: PWDR, PRN For Fungal Prophylaxis, Start date: 09/02/17 21:55:00 CDT, Duration: 30 day, Stop date: 10/02/17 21:54:00 CDTNotes: (Same as:Mycostatin, Nilstat) For external use only. No Longer Active 09/03/2017 [facility] metoprolol tartrate 50 mg oral tablet 50 mg=1 tab, PO, Daily, 0 Refill(s) No Longer Active 09/03/2017 [facility] Tylenol 975 mg, 3 tab, Route: PO, Drug form: TAB, ONCE, Dosing Weight 101.364, kg, Priority: STAT, Start date: 09/02/17 20:36:00 CDT, Stop date: 09/02/17 20:36:00 CDTNotes: Do not exceed 4 gm/day. (Same as: Tylenol) Inactive 09/03/2017 [facility] Sodium Chloride 0.9% IV 1000 mL 1,000 mL, Rate: 100 ml/hr, Infuse over: 10 hr, Route: IV, Dosing Weight 101.364 kg, Total Volume: 1,000, Start date: 09/02/17 18:00:00 CDT, Duration: 30 day, Stop date: 10/02/17 17:59:00 CDT, 2.36, m2 Inactive 09/02/2017 [facility] NS (Bolus) IV 1,000 mL, 1,000 ml/hr, Infuse Over: 1 hr, Route: IV, 1,000, Drug form: INJ, ONCE, Priority: STAT, Dosing Weight 101.364 kg, Start date: 09/02/17 17:59:00 CDT, Stop date: 09/02/17 17:59:00 CDT Inactive 09/02/2017 [facility] Dexamethasone 10 mg, Route: IVP, ONCE, Dosing Weight 101.364, kg, Priority: STAT, Start date: 09/02/17 16:59:00 CDT, Stop date: 09/02/17 16:59:00 CDT Inactive 09/02/2017 [facility] Morphine 2 mg, 1 mL, Route: IVP, Drug form: SOLN, ONCE, Dosing Weight 101.364, kg, Priority: STAT, Start date: 09/02/17 16:51:00 CDT, Stop date: 09/02/17 16:51:00 CDT Inactive 09/02/2017 [facility] Morphine 2 mg, 2 mL, Route: IVP, Drug form: SOLN, ONCE, Dosing Weight 101.364, kg, Priority: STAT, Start date: 09/02/17 13:09:00 CDT, Stop date: 09/02/17 13:09:00 CDTNotes: Preservative free. (Same as: Morphine Sulfate-PF) Inactive 09/02/2017 [facility] tizanidine 2 mg, 0.5 tab, Route: PO, Drug form: TAB, ONCE, Dosing Weight 101.364, kg, Start date: 09/02/17 13:09:00 CDT, Stop date: 09/02/17 13:09:00 CDT, ..Notes: (Same As: Zanaflex) Inactive 09/02/2017 [facility] Zofran ODT 4 mg, Route: PO, Drug form: TABDIS, ONCE, Dosing Weight 101.364, kg, Priority: STAT, Start date: 09/02/17 12:19:00 CDT, Stop date: 09/02/17 12:19:00 CDT Inactive 09/02/2017 [facility] Acetaminophen 325 MG / Hydrocodone Bitartrate 5 MG Oral Tablet [[place] 5/325] 1 tab, Route: PO, Drug Form: TAB, Dosing Weight 101.364, kg, ONCE, STAT, Start date: 09/02/17 11:34:00 CDT, Stop date: 09/02/17 11:34:00 CDT Inactive 09/02/2017 [facility] Speech Therapy See Instructions, MISC, ONCALL, Evaluate and Treat 1-2 times per week for 6-8 weeks, # 1 ea, 0 Refill(s) No Longer Active 08/09/2017 [facility] Occupational Therapy See Instructions, MISC, ONCALL, Evaluate and Treat 2-3 times per week for2-4 weeks, # 1 unit, 0 Refill(s) No Longer Active 08/09/2017 [facility] Physical Therapy See Instructions, MISC, ONCALL, Evaluate and Treat 2-3 times per week for 4-6 weeks, # 1 ea, 0 Refill(s) No Longer Active 08/09/2017 [facility] clopidogrel 75 MG Oral Tablet [Plavix] 75 mg=1 tab, PO, Daily, # 30 tab, 0 Refill(s), Pharmacy: [facility] [id number] Active 08/09/2017 [facility] acetaminophen 500 mg oral tablet 1,000 mg=2 tab, PO, TID, 0 Refill(s) No Longer Active 08/09/2017 [facility] potassium chloride 20 mEq oral tablet, extended release 20 mEq=1 tab, PO, Daily, # 30 tab, 0 Refill(s), Pharmacy: [place] [id number] No Longer Active 08/09/2017 [facility] pantoprazole 40 MG Enteric Coated Tablet [Protonix] 40 mg=1 tab, PO, Daily, # 30 tab, 0 Refill(s), Pharmacy: [place] [address] Active 08/09/2017 [facility] metoprolol tartrate 50 mg oral tablet 50 mg=1 tab, PO, Q12H, # 60 tab, 0 Refill(s), Pharmacy: [facility] [id number] No Longer Active 08/09/2017 [facility] lisinopril 10 mg oral tablet 10 mg=1 tab, PO, Daily, # 30 tab, 0 Refill(s), Pharmacy: [place] [id number] No Longer Active 08/09/2017 [facility] Furosemide 40 MG Oral Tablet [Lasix] 40 mg=1 tab, PO, Daily, # 30 tab, 0 Refill(s), Pharmacy: [place] [address] No Longer Active 08/09/2017 [facility] Carbidopa 25 MG / Levodopa 100 MG Oral Tablet 1 tab, PO, TID, # 90 tab, 0 Refill(s), Pharmacy: [facility] [address] Active 08/09/2017 [facility] atorvastatin 10 mg oral tablet 10 mg=1 tab, PO, Bedtime, # 30 tab, 0 Refill(s), Pharmacy: [facility] [address] Active 08/09/2017 [facility] tramadol hydrochloride 50 MG Oral Tablet 50 mg=1 tab, PO, Q4H, PRN Pain Score 6-10, X 5 day, # 20 tab, 0 Refill(s) No Longer Active 08/09/2017 [facility] Aspirin 81 MG Chewable Tablet 81 mg=1 tab, PO, Daily, # 30 tab, 0 Refill(s), Pharmacy: [place] [address] Active 08/09/2017 [facility] AMIODarone 200 mg oral tablet 200 mg=1 tab, PO, BID, # 60 tab, 0 Refill(s), Pharmacy: [place] [address] Active 08/09/2017 [facility] ferrous sulfate 325 mg oral enteric coated tablet 325 mg=1 tab, PO, Daily, # 30 tab, 0 Refill(s), Pharmacy: [facility] [id number] Active 08/09/2017 [facility] Calcium Carbonate 500 MG Chewable Tablet 1,000 mg=2 tab, PO, Daily, 0 Refill(s) No Longer Active 08/09/2017 [facility] Tylenol 1,000 mg, 2 tab, Route: PO, Drug form: TAB, TID, Dosing Weight 114.3, kg, Start date: 08/08/17 12:00:00 CDT, Duration: 30 day, Stop date: 09/07/17 6:00:00 CDTNotes: Max acetaminophen 4000 mg/day (4 gm/day). (Same as: Tylenol Extra Strength) No Longer Active 08/08/2017 [facility] metoprolol tartrate 25 mg, 1 tab, Route: PO, Drug form: TAB, Q12H, Dosing Weight 114.3, kg, Start date: 08/07/17 21:00:00 CDT, Duration: 30 day, Stop date: 09/06/17 9:00:00 CDTNotes: (Same as: Lopressor) No Longer Active 08/08/2017 [facility] Amiodarone 200 mg, 1 tab, Route: PO, Drug form: TAB, BID, Dosing Weight 114.3, kg, Start date: 08/07/17 21:00:00 CDT, Duration: 30 day, Stop date: 09/06/17 9:00:00 CDTNotes: (Same as: Cordarone) No Longer Active 08/08/2017 [facility] Furosemide 40 MG Oral Tablet [Lasix] 40 mg, 2 tab, Route: PO, Drug form: TAB, Daily, Dosing Weight 114.3, kg, Start date: 08/06/17 9:00:00 CDT, Duration: 30 day, Stop date: 09/04/17 9:00:00 CDTNotes: (Same as: Lasix) May cause GI upset. Give with food or milk. No Longer Active 08/06/2017 [facility] Magnesium Sulfate 2 gm, 50 mL, Route: IVPB, Drug form: INJ, Q2H, Dosing Weight 114.3, kg, Total dose=4 gm, Start date: 08/04/17 16:00:00 CDT, Duration: 2 doses or times, Stop date: 08/04/17 18:00:00 CDTNotes: WASTE: F/P - Sink; E - Municipal Trash Bin Inactive 08/04/2017 [facility] Lasix 40 mg, 4 mL, Route: IVP, Drug form: INJ, BID Diuretic, Dosing Weight 114.3, kg, Start date: 08/04/17 8:00:00 CDT, Duration: 30 day, Stop date: 09/02/17 16:00:00 CDTNotes: (Same as: Lasix) MEDICATION WASTE Product Size: 40 mg Product Wasted: ___ mg No Longer Active 08/04/2017 [facility] Tessalon Perles 100 mg, 1 cap, Route: PO, Drug form: CAP, TID, Dosing Weight 114.3, kg, PRN Cough, Start date: 08/02/17 12:15:00 CDT, Duration: 30 day, Stop date: 09/01/17 12:14:00 CDTNotes: (Same As: Tessalon Perles) "Do Not Crush" No Longer Active 08/02/2017 [facility] Robitussin-AC oral syrup 5 ml, Route: PO, Drug Form: LIQ, Dosing Weight 114.3, kg, Q6H, PRN Cough/Congestion, Start date: 08/02/17 12:15:00 CDT, Duration: 30 day, Stop date: 09/01/17 12:14:00 CDTNotes: (Same As: Robitussin AC) No Longer Active 08/02/2017 [facility] predniSONE 10 mg, 1 tab, Route: PO, Drug form: TAB, Daily, Start date: 08/02/17 12:00:00 CDT, Duration: 1 doses or times, Stop date: 08/02/17 12:00:00 CDTNotes: (Same as: PredniSONE) Take with food. Inactive 08/02/2017 [facility] Magnesium Sulfate 2 gm, 50 mL, Route: IVPB, Drug form: INJ, Q2H, Dosing Weight 114.3, kg, Total dose=4 gm, Start date: 08/02/17 10:00:00 CDT, Duration: 2 doses or times, Stop date: 08/02/17 12:00:00 CDTNotes: WASTE: F/P - Sink; E - Municipal Trash Bin Inactive 08/02/2017 [facility] Lisinopril 10 mg, 2 tab, Route: PO, Drug form: TAB, Daily, Dosing Weight 114.3, kg, Start date: 08/02/17 9:00:00 CDT, Duration: 30 day, Stop date: 08/31/17 9:00:00 CDTNotes: (Same as: Prinivil, Zestril) No Longer Active 08/02/2017 [facility] Sidney packet 1 pkt, Route: PO, Drug Form: PWDR, Dosing Weight 114.3, kg, BID-Before Meals, Start date: 08/01/17 16:30:00 CDT, Duration: 14 day, Stop date: 08/15/17 7:30:00 CDTNotes: (Same as: [place]) No Longer Active 08/01/2017 [facility] Tums 500 mg, 1 tab, Route: CHEW, Drug form: CHEWTAB, TID, Dosing Weight 114.3, kg, PRN Indigestion, Start date: 08/01/17 11:13:00 CDT, Duration: 30 day, Stop date: 08/31/17 11:12:00 CDTNotes: (Same As: Tums) Calcium Carbonate 500 yi=104 mg elemental calcium Dose= mg calcium carbonate ( mg elemental calcium) No Longer Active 08/01/2017 [facility] potassium chloride 20 mEq, 1 tab, Route: PO, Drug form: ERTAB, Daily, Dosing Weight 114.3, kg, Start date: 08/01/17 9:00:00 CDT, Stop date: 08/29/17 9:00:00 CDTNotes: (Same as: K-Dur 20) "Do Not Crush" With food and full glass of water No Longer Active 08/01/2017 [facility] predniSONE 20 mg, 2 tab, Route: PO, Drug form: TAB, Daily, Start date: 08/01/17 9:00:00 CDT, Duration: 1 doses or times, Stop date: 08/01/17 9:00:00 CDTNotes: (Same as: PredniSONE) Take with food. Inactive 08/01/2017 [facility] predniSONE 30 mg, 3 tab, Route: PO, Drug form: TAB, Daily, Start date: 07/31/17 9:00:00 CDT, Duration: 1 doses or times, Stop date: 07/31/17 9:00:00 CDTNotes: (Same as: PredniSONE) Take with food. Inactive 07/31/2017 [facility] ferrous sulfate 325 mg, 1 tab, Route: PO, Drug form: ECTAB, Daily, Dosing Weight 114.3, kg, Start date: 07/31/17 9:00:00 CDT, Stop date: 08/29/17 9:00:00 CDTNotes: Give with food. "Do Not Crush" No Longer Active 07/31/2017 [facility] Plavix 75 mg, 1 tab, Route: PO, Drug form: TAB, Daily, Dosing Weight 114.3, kg, Start date: 07/31/17 9:00:00 CDT, Duration: 30 day, Stop date: 08/29/17 12:00:00 CDTNotes: (Same As: Plavix) No Longer Active 07/31/2017 [facility] Lasix 40 mg, 2 tab, Route: PO, Drug form: TAB, BID, Dosing Weight 120.6, kg, Start date: 07/30/17 9:00:00 CDT, Duration: 30 day, Stop date: 08/28/17 17:00:00 CDTNotes: (Same as: Lasix) May cause GI upset. Give with food or milk. No Longer Active 07/30/2017 [facility] calcium carbonate 1,000 mg, 2 tab, Route: PO, Drug form: CHEWTAB, Daily, Dosing Weight 120.6, kg, Start date: 07/30/17 9:00:00 CDT, Duration: 30 day, Stop date: 08/28/17 9:00:00 CDTNotes: (Same As: Tummarisa) Calcium Carbonate 500 hq=793 mg elemental calcium Dose= mg calcium carbonate ( mg elemental calcium) No Longer Active 07/30/2017 [facility] aspirin 81 mg tablet, chewable 81 mg, 1 tab, Route: PO, Drug form: CHEWTAB, Daily, Dosing Weight 112.6, kg, Start date: 07/30/17 9:00:00 CDT, Duration: 30 day, Stop date: 08/28/17 12:00:00 CDTNotes: Take with food. No Longer Active 07/30/2017 [facility] Sinemet 25 mg-100 mg oral tablet 1 tab, Route: PO, Drug Form: TAB, Dosing Weight 120.6, kg, TID, Start date: 07/30/17 9:00:00 CDT, Stop date: 08/28/17 20:00:00 CDTNotes: Take with milk or food. (Same As: Sinemet) No Longer Active 07/30/2017 [facility] Prednisone 1 MG Oral Tablet 40 mg, 2 tab, Route: PO, Drug form: TAB, Daily, Start date: 07/30/17 9:00:00 CDT, Duration: 1 doses or times, Stop date: 07/30/17 9:00:00 CDTNotes: Take with food. Inactive 07/30/2017 [facility] Saline Flush 0.9% 10 ml, Route: IVP, Drug Form: INJ, Dosing Weight 114.3, kg, Q12H, Start date: 07/30/17 9:00:00 CDT, Duration: 30 day, Stop date: 08/28/17 21:00:00 CDTNotes: (Same as: BD Posiflush) No Longer Active 07/30/2017 [facility] Potassium Chloride 40 mEq, 2 tab, Route: PO, Drug form: ERTAB, TID, Dosing Weight 114.3, kg, Start date: 07/30/17 9:00:00 CDT, Duration: 2 day, Stop date: 07/31/17 17:00:00 CDTNotes: (Same as: K-Dur 20) "Do Not Crush" With food and full glass of water No Longer Active 07/30/2017 [facility] lactulose 10 g/15 mL oral syrup 10 gm, 15 mL, Route: PO, Drug form: SYRP, BID, Dosing Weight 120.6, kg, PRN as needed for constipation, Start date: 07/30/17 9:00:00 CDT, Duration: 30 day, Stop date: 08/28/17 17:00:00 CDTNotes: (Same as:Chronulac) No Longer Active 07/30/2017 [facility] Cordarone 400 mg, 2 tab, Route: PO, Drug form: TAB, TID, Dosing Weight 120.6, kg, Start date: 07/30/17 9:00:00 CDT, Stop date: 08/28/17 20:00:00 CDTNotes: (Same as: Cordarone) No Longer Active 07/30/2017 [facility] Compression Stockings 1 ea, Route: TOP, Dosing Weight 114.3, kg, Daily, Start date: 07/30/17 9:00:00 CDT No Longer Active 07/30/2017 [facility] K-Dur 20 20 mEq, 1 tab, Route: PO, Drug form: ERTAB, BID, Dosing Weight 120.6, kg, Start date: 07/30/17 9:00:00 CDT, Duration: 2 day, Stop date: 07/31/17 17:00:00 CDTNotes: (Same as: K-Dur 20) "Do Not Crush" With food and full glass of water Inactive 07/30/2017 [facility] Protonix 40 mg, 1 tab, Route: PO, Drug form: ECTAB, Before Dinner, Dosing Weight 120.6, kg, Start date: 07/30/17 9:00:00 CDT, Stop date: 08/28/17 16:30:00 CDTNotes: Tablet should not be chewed or crushed. (Same as: Protonix) No Longer Active 07/30/2017 [facility] famotidine 20 mg, 1 tab, Route: PO, Drug form: TAB, Q24H, Dosing Weight 112, kg, Start date: 07/30/17 9:00:00 CDT, Stop date: 08/28/17 11:30:00 CDTNotes: (Same as: Pepcid) No Longer Active 07/30/2017 [facility] Magnesium Sulfate 2 gm, 50 mL, Route: IVPB, Drug form: INJ, Q2H, Dosing Weight 114.3, kg, Total dose=4 gm, Start date: 07/30/17 8:00:00 CDT, Duration: 2 doses or times, Stop date: 07/30/17 10:00:00 CDTNotes: WASTE: F/P - Sink; E - Municipal Trash Bin Inactive 07/30/2017 [facility] tramadol hydrochloride 50 MG Oral Tablet 50 mg, 1 tab, Route: PO, Drug form: TAB, Q4H, Dosing Weight 114.3, kg, PRN Pain Score 6-10, Start date: 07/30/17 7:50:00 CDT, Duration: 30 day, Stop date: 08/29/17 7:49:00 CDTNotes: Not to exceed 400mg/day. (Same As: Ultram) No Longer Active 07/30/2017 [facility] Tramadol 25 mg, 0.5 tab, Route: PO, Drug form: TAB, Q4H, Dosing Weight 114.3, kg, PRN Pain Score 4-6, Start date: 07/30/17 7:50:00 CDT, Duration: 30 day, Stop date: 08/29/17 7:49:00 CDTNotes: Not to exceed 400mg/day. (Same As: Ultram) No Longer Active 07/30/2017 [facility] *ATTN RN please updatw HWA in adhoc *ATTN RN please updatw HWA in adhoc, ATTN RN, Drug form: MISC, Route: MISC, QSHIFT, 07/30/17 0:00:00 CDT, Duration: 30 day, Stop date: 08/28/17 16:00:00 CDT No Longer Active 07/30/2017 [facility] Amlodipine 10 MG / Benazepril hydrochloride 40 MG Oral Capsule [Lotrel 10/40] 1 cap, PO, Daily, 0 Refill(s) No Longer Active 07/30/2017 [facility] Lipitor 10 mg, 1 tab, Route: PO, Drug form: TAB, Bedtime, Dosing Weight 112.6, kg, Start date: 07/29/17 22:00:00 CDT, Duration: 30 day, Stop date: 08/28/17 21:00:00 CDTNotes: (Same As: Lipitor) No Longer Active 07/30/2017 [facility] Lopressor 50 mg, 1 tab, Route: PO, Drug form: TAB, Q12H, Dosing Weight 120.6, kg, Start date: 07/29/17 22:00:00 CDT, Stop date: 08/28/17 21:00:00 CDTNotes: (Same as: Lopressor) No Longer Active 07/30/2017 [facility] Solu-CORTEF 25 mg, 0.5 mL, Route: IV, Drug form: PDR/INJ, Q12H, Dosing Weight 120.6, kg, Start date: 07/29/17 22:00:00 CDT, Duration: 30 day, Stop date: 08/28/17 21:00:00 CDTNotes: (Same as: Solu-CORTEF) No Longer Active 07/30/2017 [facility] nitroglycerin 0.4 mg sublingual tablet 0.4 mg, 1 tab, Route: SL, Drug form: TAB, Q5Min, Dosing Weight 112.6, kg, PRN Chest Pain, Start date: 07/29/17 21:40:00 CDT, Duration: 30 day, Stop date: 08/28/17 21:39:00 CDTNotes: (Same as:Nitroquick, Nitrostat) "Do Not Crush" Sublingual tablet No Longer Active 07/30/2017 [facility] glucagon 1 mg, Route: IM, Drug form: PDR/INJ, PRN, Dosing Weight 120.6, kg, PRN Blood Glucose Results, Start date: 07/29/17 21:32:00 CDT, Duration: 30 day, Stop date: 08/28/17 21:31:00 CDT No Longer Active 07/30/2017 [facility] Flexeril 10 mg, 1 tab, Route: PO, Drug form: TAB, TID, Dosing Weight 112.6, kg, PRN Spasm, Start date: 07/29/17 21:30:00 CDT, Duration: 30 day, Stop date: 08/28/17 21:29:00 CDTNotes: (Same As: Flexeril) No Longer Active 07/30/2017 [facility] DuoNeb inhalation solution 3 ml, Route: NEB, Drug Form: SOLN, Dosing Weight 112.6, kg, PRN, PRN Respiratory Protocol, Start date: 07/29/17 21:29:00 CDT, Duration: 30 day, Stop date: 08/28/17 21:28:00 CDTNotes: (Same as: Duoneb) No Longer Active 07/30/2017 [facility] albuterol 0.083% inhalation solution 2.49 mg, 3 mL, Route: NEB, Drug form: SOLN, Q6H, Dosing Weight 112.6, kg, PRN as needed for wheezing, Start date: 07/29/17 21:24:00 CDT, Duration: 30 day, Stop date: 08/28/17 21:23:00 CDTNotes: SEE RT DOCUMENTATION (Same as: Proventil) No Longer Active 07/30/2017 [facility] acetaminophen-hydrocodone 325 mg-5 mg oral tablet 2 tab, Route: PO, Drug Form: TAB, Dosing Weight 112.6, kg, Q4H, PRN Pain Score 4-6, Start date: 07/29/17 21:24:00 CDT, Duration: 30 day, Stop date: 08/28/17 21:23:00 CDTNotes: (Same as: [place] 325/5) Do not exceed 4gm/day of acetaminophen. No Longer Active 07/30/2017 [facility] Tylenol 1,000 mg, 31.23 mL, Route: NG, Drug form: LIQ, Q6H, Dosing Weight 120.6, kg, PRN For Temp > 101 F, Start date: 07/29/17 21:23:00 CDT, Duration: 30 day, Stop date: 08/28/17 21:22:00 CDT No Longer Active 07/30/2017 [facility] Saline Flush 0.9% 10 ml, Route: IVP, Drug Form: INJ, Dosing Weight 114.3, kg, PRN, PRN Line Flush, Start date: 07/29/17 21:16:00 CDT, Duration: 30 day, Stop date: 08/28/17 21:15:00 CDTNotes: (Same as: BD Posiflush) No Longer Active 07/30/2017 [facility] Trazodone 50 mg, 1 tab, Route: PO, Drug form: TAB, Bedtime, Dosing Weight 114.3, kg, PRN Insomnia, Start date: 07/29/17 21:16:00 CDT, Duration: 30 day, Stop date: 08/28/17 21:15:00 CDTNotes: (Same As: Desyrel) No Longer Active 07/30/2017 [facility] clopidogrel 75 MG Oral Tablet [Plavix] 75 mg=1 tab, PO, Daily, # 30 tab, 0 Refill(s), other No Longer Active 07/29/2017 [facility] Carbidopa 25 MG / Levodopa 100 MG Oral Tablet [Sinemet 25-100] 1 tab, NG, TID, 0 Refill(s) No Longer Active 07/29/2017 [facility] atorvastatin 10 mg oral tablet 10 mg=1 tab, PO, Bedtime, 0 Refill(s) No Longer Active 07/29/2017 [facility] AMIODarone 200 mg oral tablet 400 mg=2 tab, OGT, TID, 0 Refill(s) No Longer Active 07/29/2017 [facility] thiamine 100 mg/mL injectable solution 100 mg=1 mL, IVP, Daily, 0 Refill(s) No Longer Active 07/29/2017 [facility] QUEtiapine 25 mg oral tablet 12.5 mg=0.5 tab, PO, Q6H, PRN Anxiety, 0 Refill(s) No Longer Active 07/29/2017 [facility] potassium chloride 20 mEq oral tablet, extended release 20 mEq=1 tab, PO, BID, 0 Refill(s) No Longer Active 07/29/2017 [facility] metoprolol tartrate 50 mg oral tablet 50 mg=1 tab, PO, Q12H, 0 Refill(s) No Longer Active 07/29/2017 [facility] Furosemide 40 MG Oral Tablet [Lasix] 40 mg=1 tab, PO, BID, 0 Refill(s) No Longer Active 07/29/2017 [facility] Potassium Chloride 40 mEq, 2 tab, Route: PO, Drug form: ERTAB, Q1H, Dosing Weight 120.6, kg, Start date: 07/29/17 9:00:00 CDT, Duration: 2 doses or times, Stop date: 07/29/17 10:00:00 CDTNotes: (Same as: K- Dur 20) "Do Not Crush" With food and full glass of water Inactive 07/29/2017 [facility] Magnesium Sulfate 2 gm, 50 mL, Route: IVPB, Drug form: INJ, ONCE, Dosing Weight 120.6, kg, Total dose=2 gm, Start date: 07/29/17 8:33:00 CDT, Stop date: 07/29/17 8:33:00 CDTNotes: WASTE: F/P - Sink; E - Municipal Trash Bin Inactive 07/29/2017 [facility] Calcium Gluconate 1,000 mg, 10 mL, Route: IVPB, ONCE, Dosing Weight 120.6, kg, Start date: 07/29/17 8:27:00 CDT, Stop date: 07/29/17 8:27:00 CDTNotes: WASTE: F/P - Sink; E - Municipal Trash Bin Inactive 07/29/2017 [facility] Valium 5 mg, 1 mL, Route: IVP, Drug form: INJ, ONCE, Dosing Weight 120.6, kg, PRN Procedure, Start date: 07/28/17 14:09:00 CDT, give prior to MRINotes: WASTE: F/P - Black; E - White/Blue Inactive 07/28/2017 [facility] Calcium Carbonate 1,000 mg, 2 tab, Route: PO, Drug form: CHEWTAB, Daily, Dosing Weight 120.6, kg, Start date: 07/28/17 9:00:00 CDT, Duration: 30 day, Stop date: 08/26/17 9:00:00 CDTNotes: (Same As: Tummarisa) Calcium Carbonate 500 am=826 mg elemental calcium Dose= mg calcium carbonate ( mg elemental calcium) No Longer Active 07/28/2017 [facility] Protonix 40 mg, 1 tab, Route: PO, Drug form: ECTAB, Daily, Dosing Weight 120.6, kg, Start date: 07/28/17 9:00:00 CDT, Stop date: 08/27/17 9:00:00 CDTNotes: Tablet should not be chewed or crushed. (Same as: Protonix) No Longer Active 07/28/2017 [facility] Ativan 1 mg, 0.5 mL, Route: IVP, Drug form: INJ, ONCE, Dosing Weight 120.6, kg, PRN Anxiety, Start date: 07/28/17 7:00:00 CDTNotes: (Same as: Ativan) No Longer Active 07/28/2017 [facility] Seroquel 12.5 mg, 0.5 tab, Route: PO, Drug form: TAB, Q6H, Dosing Weight 120.6, kg, PRN Anxiety, Start date: 07/27/17 20:41:00 CDT, Duration: 30 day, Stop date: 08/26/17 20:40:00 CDTNotes: (Same as: SEROquel) No Longer Active 07/28/2017 [facility] potassium chloride 20 mEq oral tablet, extended release 40 mEq, 2 tab, Route: PO, Drug form: ERTAB, ONCE, Dosing Weight 120.6, kg, Start date: 07/27/17 16:46:00 CDT, Stop date: 07/27/17 16:46:00 CDT Inactive 07/27/2017 [facility] Furosemide 40 MG Oral Tablet [Lasix] 40 mg, 1 tab, Route: PO, Drug form: TAB, BID, Dosing Weight 120.6, kg, Start date: 07/27/17 9:00:00 CDT, Duration: 30 day, Stop date: 08/25/17 17:00:00 CDTNotes: (Same as: Lasix) May cause GI upset. Give with food or milk. No Longer Active 07/27/2017 [facility] Potassium Chloride 20 mEq, 1 tab, Route: PO, Drug form: ERTAB, BID, Dosing Weight 120.6, kg, Start date: 07/27/17 9:00:00 CDT, Duration: 30 day, Stop date: 08/25/17 17:00:00 CDTNotes: (Same as: K-Dur 20) "Do Not Crush" With food and full glass of water No Longer Active 07/27/2017 [facility] Potassium Chloride 40 mEq, 2 tab, Route: PO, Drug form: ERTAB, ONCE, Dosing Weight 120.6, kg, Start date: 07/27/17 8:56:00 CDT, Stop date: 07/27/17 8:56:00 CDTNotes: (Same as: K-Dur 20) "Do Not Crush" With food and full glass of water Inactive 07/27/2017 [facility] Ceftriaxone 1 gm, Route: IVP, [id number], Dosing Weight 120.6, kg, Start date: 07/27/17 8:00:00 CDT, Duration: 2 day, Stop date: 07/28/17 8:00:00 CDT, ABX Indication: BacteremiaNotes: (Same As: Rocephin). Use with 100 mL NS and infuse over 30 min MEDICATION WASTE Product Size: 1000 mg Product Wasted: ___ mg No Longer Active 07/27/2017 [facility] Lopressor 50 mg, 1 tab, Route: PO, Drug form: TAB, Q12H, Dosing Weight 120.6, kg, Start date: 07/26/17 21:00:00 CDT, Stop date: 08/26/17 21:00:00 CDTNotes: (Same as: Lopressor) No Longer Active 07/27/2017 [facility] Hydrocortisone 25 mg, 0.5 mL, Route: IV, Drug form: PDR/INJ, Q12H, Dosing Weight 120.6, kg, Start date: 07/26/17 21:00:00 CDT, Duration: 30 day, Stop date: 08/25/17 9:00:00 CDTNotes: (Same as: Solu-CORTEF) No Longer Active 07/27/2017 [facility] Aldactone 25 mg, 1 tab, Route: PO, Drug form: TAB, ONCE, Dosing Weight 120.6, kg, Start date: 07/26/17 15:44:00 CDT, Stop date: 07/26/17 15:44:00 CDTNotes: (Same As: Aldactone) Inactive 07/26/2017 [facility] Amiloride 5 mg, Route: PO, Drug form: TAB, ONCE, Dosing Weight 120.6, kg, Start date: 07/26/17 12:52:00 CDT, Stop date: 07/26/17 12:52:00 CDT Inactive 07/26/2017 [facility] Metoprolol 5 mg, 5 mL, Route: IVP, Drug form: INJ, Q6H, Dosing Weight 120.6, kg, Start date: 07/26/17 12:00:00 CDT, Duration: 30 day, Stop date: 08/25/17 6:00:00 CDTNotes: (Same as: Lopressor) Push over 2 minutes Inactive 07/26/2017 [facility] Seroquel 50 mg, 2 tab, Route: PO, Drug form: TAB, Q12H, Dosing Weight 120.6, kg, PRN Agitation, Start date: 07/26/17 9:42:00 CDT, Duration: 30 day, Stop date: 08/25/17 9:41:00 CDTNotes: (Same as: SEROquel) No Longer Active 07/26/2017 [facility] Hydrocortisone 50 mg, 1 mL, Route: IV, Drug form: PDR/INJ, Q12H, Dosing Weight 120.6, kg, Start date: 07/25/17 21:00:00 CDT, Duration: 30 day, Stop date: 08/24/17 9:00:00 CDTNotes: (Same as: Solu-CORTEF) No Longer Active 07/26/2017 [facility] Saline Flush 0.9% 10 ml, Route: IVP, Drug Form: INJ, Dosing Weight 120.6, kg, Q12H, Start date: 07/25/17 21:00:00 CDT, Duration: 30 day, Stop date: 08/24/17 9:00:00 CDTNotes: (Same as: BD Posiflush) No Longer Active 07/26/2017 [facility] Saline Flush 0.9% 10 ml, Route: IVP, Drug Form: INJ, Dosing Weight 120.6, kg, PRN, PRN Line Flush, Start date: 07/25/17 17:47:00 CDT, Duration: 30 day, Stop date: 08/24/17 17:46:00 CDTNotes: (Same as: BD Posiflush) No Longer Active 07/25/2017 [facility] Insulin Lispro 3 unit, 0.03 mL, Route: SUB-Q, Drug form: SOLN, Sliding Scale, Dosing Weight 120.6, kg, PRN Blood Glucose Results, Start date: 07/25/17 16:04:00 CDT, Duration: 30 day, Stop date: 08/24/17 16:03:00 CD TNotes: (Same as: Humalog ) Roll in palms of hands gently; Do not shake `vigorously. "Single Patient Use Only " WASTE: F/P - Black; E - Municipal Trash Bin Stable for 28 days at room temperature. Expires in days from Date No Longer Active 07/25/2017 [facility] Dextrose 50% Syringe 12.5 gm, 25 mL, Route: IVP, Drug Form: INJ, Dosing Weight 120.6, kg, PRN, PRN Blood Glucose Results, Start date: 07/25/17 16:04:00 CDT, Duration: 30 day, Stop date: 08/24/17 16:03:00 CDT No Longer Active 07/25/2017 [facility] Glucagon 1 mg, Route: IM, Drug form: PDR/INJ, PRN, Dosing Weight 120.6, kg, PRN Blood Glucose Results, Start date: 07/25/17 16:04:00 CDT, Duration: 30 day, Stop date: 08/24/17 16:03:00 CDT No Longer Active 07/25/2017 [facility] D5W 1,000 mL 1,000 mL, Rate: 40 ml/hr, Infuse over: 25 hr, Route: IV, Dosing Weight 120.6 kg, Total Volume: 1,000, Start date: 07/25/17 14:08:00 CDT, Duration: 30 day, Stop date: 08/24/17 14:07:00 CDT, 2.58, m2 No Longer Active 07/25/2017 [facility] Amiodarone 400 mg, 2 tab, Route: OGT, Drug form: TAB, TID, Dosing Weight 120.6, kg, Start date: 07/24/17 9:00:00 CDT, Duration: 30 day, Stop date: 08/22/17 17:00:00 CDTNotes: (Same as: Cordarone) No Longer Active 07/24/2017 [facility] Furosemide 100 mg, 10 mL, Rate: 5 mg/hour, Dosing Weight 120.6, kg, Route: IV, Total Volume: 100, Priority: STAT, Start Date: 07/23/17 12:20:00 QUANTITATIVE CONSULTANT, Stop date: 08/22/17 12:19:00 CDT, Replace Every: 20 hr, continuo usNotes: (Same as: Lasix) MEDICATION WASTE Product Size: 100 mg Product Wasted: ___ mg No Longer Active 07/23/2017 [facility] Thiamine 100 mg, 1 mL, Route: IVP, Drug form: INJ, Daily, Dosing Weight 120.6, kg, Start date: 07/23/17 9:00:00 QUANTITATIVE CONSULTANT, Duration: 30 day, Stop date: 08/21/17 9:00:00 CDTNotes: (Same As: Vitamin B1) No Longer Active 07/23/2017 [facility] Ativan 1 mg, 0.5 mL, Route: IVP, Drug form: INJ, Q6H, Dosing Weight 120.6, kg, PRN Anxiety, Start date: 07/22/17 17:09:00 QUANTITATIVE CONSULTANT, Duration: 30 day, Stop date: 08/21/17 17:08:00 CDTNotes: (Same as: Ativan) No Longer Active 07/22/2017 [facility] Carbidopa 25 MG / Levodopa 100 MG Oral Tablet [Sinemet 25-100] 1 tab, Route: NG, Drug Form: TAB, Dosing Weight 120.6, kg, TID, Start date: 07/22/17 17:00:00 QUANTITATIVE CONSULTANT, Duration: 30 day, Stop date: 08/21/17 13:00:00 CDTNotes: Take with milk or food. (Same As: Sinemet) No Longer Active 07/22/2017 [facility] Hydrocortisone 50 mg, 1 mL, Route: IV, Drug form: PDR/INJ, Q6Hnow, Dosing Weight 120.6, kg, Priority: STAT, Start date: 07/22/17 13:49:00 QUANTITATIVE CONSULTANT, Duration: 30 day, Stop date: 08/21/17 9:00:00 CDTNotes: (Same as: Solu- CORTEF) No Longer Active 07/22/2017 [facility] Lasix 40 mg, 4 mL, Route: IVP, Drug form: INJ, Q8H, Dosing Weight 120.6, kg, Start date: 07/21/17 16:00:00 QUANTITATIVE CONSULTANT, Duration: 30 day, Stop date: 08/20/17 8:00:00 CDTNotes: (Same as: Lasix) MEDICATION WASTE Product Size: 40 mg Product Wasted: _0__ mg No Longer Active 07/21/2017 [facility] AMIODarone 900 mg in D5W 500 ml IV 900 mg + Dextrose 5% in Water IV 482 mL 900 mg, 18 mL, Rate: 1 mg/min for 6 hours, then reduce to 0.5 mg/min, Dosing Weight 120.6, kg, Route: IV, Total Volume: 500, Start Date: 07/21/17 12:54:00 QUANTITATIVE CONSULTANT, Duration: 30 day, Stop date: 08/20/17 12:53:00 CDT, Replace Every: 24 hrNotes: Central administration only for concentration > 2 mg/ml. Use Glass Bottle or Non PVC Bag "Use 0.22 micron in-line filter" MEDICATION WASTE Product Size: 900 mg Product Wasted: ___ mg No Longer Active 07/21/2017 [facility] Amiodarone 150 mg, 3 mL, Route: IVPB, Drug form: INJ, ONCE, Dosing Weight 120.6, kg, Start date: 07/21/17 12:54:00 QUANTITATIVE CONSULTANT, Stop date: 07/21/17 12:54:00 CSTNotes: Central administration only for concentrations > 2 mg/ml. "Recommendation: Use an in-line filter during administration for continuous infusions to reduce the incidence of phlebitis" (Same as Codarone) MEDICATION WASTE Product Size: 150 mg Product Wasted: ___ mg Inactive 07/21/2017 [facility] Magnesium Sulfate 2 gm, Route: IVPB, Drug form: INJ, PRN, Dosing Weight 120.6, kg, PRN Abnormal Lab Result, Start date: 07/21/17 11:24:00 QUANTITATIVE CONSULTANT, Duration: 30 day, Stop date: 08/20/17 12:23:00 CDT, FOR ICU USE ONLY Inactive 07/21/2017 [facility] Magnesium Sulfate 2 gm, Route: IVPB, Drug form: INJ, PRN, Dosing Weight 120.6, kg, PRN Abnormal Lab Result, Start date: 07/21/17 11:23:00 QUANTITATIVE CONSULTANT, Duration: 30 day, Stop date: 08/20/17 12:22:00 CDT, FOR ICU USE ONLY Inactive 07/21/2017 [facility] Magnesium Sulfate 2 gm, 50 mL, Route: IVPB, Drug form: INJ, PRN, Dosing Weight 120.6, kg, PRN Abnormal Lab Result, Start date: 07/21/17 11:22:00 QUANTITATIVE CONSULTANT, Duration: 30 day, Stop date: 08/20/17 12:21:00 CDT, FOR ICU USE ONLYNotes: WASTE: F/P - Sink; E - Municipal Trash Bin No Longer Active 07/21/2017 [facility] heparin additive 25,000 unit [14 unit/kg/hr] + Premix Diluent Dextrose 5% 500 mL 500 mL, Rate: 29.96 ml/hr, Infuse over: 16.7 hr, Route: IV, Dosing Weight 107 kg, Total Volume: 500 mL, Start date: 07/21/17 10:06:00 QUANTITATIVE CONSULTANT, Duration: 30 day, Stop date: 08/20/17 10:05:00 CDT, 2.43, m2 No Longer Active 07/21/2017 [facility] Calcium Carbonate 500 MG Chewable Tablet 1,000 mg, 2 tab, Route: PO, Drug form: CHEWTAB, PRN, Dosing Weight 120.6, kg, PRN Abnormal Lab Result, FOR ICU USE ONLY, Start date: 07/21/17 7:01:00 QUANTITATIVE CONSULTANT, Duration: 30 day, Stop date: 08/20/17 8:00:00 CDTNotes: (Same As: Tums) Calcium Carbonate 500 rr=360 mg elemental calcium Dose= mg calcium carbonate ( mg elemental calcium) No Longer Active 07/21/2017 [facility] Calcium Gluconate 1 gm, 10 mL, Route: IVPB, PRN, Dosing Weight 120.6, kg, PRN Abnormal Lab Result, Start date: 07/21/17 7:01:00 QUANTITATIVE CONSULTANT, Duration: 30 day, Stop date: 08/20/17 8:00:00 CDT, FOR ICU USE ONLYNotes: WASTE: F/P - Sink; E - Municipal Trash Bin No Longer Active 07/21/2017 [facility] Magnesium Oxide 800 mg, 2 tab, Route: PO, Drug form: TAB, PRN, Dosing Weight 120.6, kg, PRN Abnormal Lab Result, FOR ICU USE ONLY, Start date: 07/21/17 7:01:00 QUANTITATIVE CONSULTANT, Duration: 30 day, Stop date: 08/20/17 8:00:00 CDTN otes: (Same as: Mag-Ox 400) Magnesium oxide [id number] elemental magnesium Dose=____mg magnesium oxide (___mg elemental magnesium) No Longer Active 07/21/2017 [facility] Magnesium Sulfate 2 gm, 50 mL, Route: IVPB, Drug form: INJ, PRN, Dosing Weight 120.6, kg, PRN Abnormal Lab Result, Start date: 07/21/17 7:01:00 QUANTITATIVE CONSULTANT, Duration: 30 day, Stop date: 08/20/17 8:00:00 CDT, FOR ICU USE ONLYNotes: WASTE: F/P - Sink; E - Municipal Trash Bin Inactive 07/21/2017 [facility] potassium phosphate-sodium phosphate 250 mg-280 mg-160 mg oral powder for reconstitution 2 pkt, Route: PO, Drug Form: PDR/REC, Dosing Weight 120.6, kg, PRN, PRN Abnormal Lab Result, FOR ICU USE ONLY, Start date: 07/21/17 7:01:00 QUANTITATIVE CONSULTANT, Duration: 30 day, Stop date: 08/20/17 8:00:00 CDTNotes: (Same as: Phos-NaK) Each 1.5 gm pkt has 250mg phosphorous. Mix w/2.5oz water and stir. No Longer Active 07/21/2017 [facility] potassium phosphate 45 mmol, 15 mL, Route: IVPB, PRN, Dosing Weight 120.6, kg, PRN Abnormal Lab Result, Start date: 07/21/17 7:01:00 QUANTITATIVE CONSULTANT, Duration: 30 day, Stop date: 08/20/17 8:00:00 CDT, FOR ICU USE ONLYNotes: (Same as: K Phosphate.) 1 mMol phoshate has 1.47 mEq potassium Infuse over 4 hours No Longer Active 07/21/2017 [facility] sodium phosphate 45 mmol, 15 mL, Route: IVPB, PRN, Dosing Weight 120.6, kg, PRN Abnormal Lab Result, Start date: 07/21/17 7:01:00 QUANTITATIVE CONSULTANT, Duration: 30 day, Stop date: 08/20/17 8:00:00 CDT, FOR ICU USE ONLY No Longer Active 07/21/2017 [facility] Potassium Chloride 20 mEq, 15 mL, Route: NJ, Drug form: LIQ, PRN, Dosing Weight 120.6, kg, PRN Abnormal Lab Result, Start date: 07/21/17 7:01:00 QUANTITATIVE CONSULTANT, Duration: 30 day, Stop date: 08/20/17 8:00:00 CDT, FOR ICU USE ONLYNotes: (Same as: Potassium Chloride) No Longer Active 07/21/2017 [facility] Potassium Chloride 1.33 MEQ/ML Oral Solution 20 mEq, 15 mL, Route: PO, Drug form: LIQ, ONCE, Dosing Weight 120.6, kg, Start date: 07/21/17 6:35:00 QUANTITATIVE CONSULTANT, Stop date: 07/21/17 6:35:00 CSTNotes: (Same as: Potassium Chloride) Inactive 07/21/2017 [facility] Potassium Chloride 20 mEq, 10 mL, Route: IVPB, ONCE, Dosing Weight 120.6, kg, Start date: 07/21/17 6:35:00 QUANTITATIVE CONSULTANT, Stop date: 07/21/17 6:35:00 CSTNotes: MUST be Diluted before use (Same as: KCl) MEDICATION WASTE Product Size: 40 mEq Product Wasted: 20 mEq Inactive 07/21/2017 [facility] Lasix 40 mg, 4 mL, Route: IVP, Drug form: INJ, BID Diuretic, Dosing Weight 120.6, kg, Start date: 07/20/17 21:00:00 QUANTITATIVE CONSULTANT, Duration: 30 day, Stop date: 08/19/17 9:00:00 CDTNotes: (Same as: Lasix) MEDICATION WASTE Product Size: 40 mg Product Wasted: _0__ mg No Longer Active 07/21/2017 [facility] Digoxin 0.125 mg, 0.5 mL, Route: IVP, Drug form: INJ, ONCE, Dosing Weight 120.6, kg, Start date: 07/20/17 19:29:00 QUANTITATIVE CONSULTANT, Stop date: 07/20/17 19:29:00 CSTNotes: (Same as: Lanoxin) Inactive 07/21/2017 [facility] Lopressor 5 mg, 5 mL, Route: IVP, Drug form: INJ, Q6H, Dosing Weight 120.6, kg, Start date: 07/20/17 18:00:00 QU[employer]ITATIVE CONSULTANT, Duration: 30 day, Stop date: 08/19/17 12:00:00 CDTNotes: (Same as: Lopressor) Push over 2 minutes No Longer Active 07/21/2017 [facility] Potassium Chloride 20 mEq, 10 mL, Route: IVPB, Q2H, Dosing Weight 120.6, kg, Total dose=60 mEq, Start date: 07/20/17 18:00:00 QUANTITATIVE CONSULTANT, Duration: 3 doses or times, Stop date: 07/20/17 22:00:00 QUANTITATIVE CONSULTANT, Central LineNotes: MUST be Diluted before use (Same as: KCl) MEDICATION WASTE Product Size: 40 mEq Product Wasted: ___ mEq Inactive 07/21/2017 [facility] Seroquel 50 mg, 2 tab, Route: PO, Drug form: TAB, Q12H, Dosing Weight 120.6, kg, Start date: 07/20/17 17:34:00 QUANTITATIVE CONSULTANT, Duration: 30 day, Stop date: 08/19/17 9:00:00 CDTNotes: (Same as: SEROquel) No Longer Active 07/20/2017 [facility] Digoxin 0.25 mg, 1 mL, Route: IVP, Drug form: INJ, ONCE, Dosing Weight 120.6, kg, Start date: 07/20/17 15:03:00 QUANTITATIVE CONSULTANT, Stop date: 07/20/17 15:03:00 CSTNotes: (Same as: Lanoxin) Inactive 07/20/2017 [facility] morphine Sulfate 12 mg, 6 mL, Route: PO, Drug form: SOLN, Q1H, PRN Pain Score 7-10, Start date: 07/20/17 14:59:00 QUANTITATIVE CONSULTANT, Duration: 30 day, Stop date: 08/19/17 15:58:00 CDTNotes: (Same as:MORPhine Sulfate) No Longer Active 07/20/2017 [facility] morphine Sulfate 6 mg, 3 mL, Route: PO, Drug form: SOLN, Q1H, PRN Pain Score 4-6, Start date: 07/20/17 14:58:00 QUANTITATIVE CONSULTANT, Duration: 30 day, Stop date: 08/19/17 15:57:00 CDTNotes: (Same as:MORPhine Sulfate) No Longer Active 07/20/2017 [facility] Lasix 20 mg, Route: IVP, Drug form: INJ, ONCE, Dosing Weight 120.6, kg, Start date: 07/20/17 11:02:00 QUANTITATIVE CONSULTANT, Stop date: 07/20/17 11:02:00 QUANTITATIVE CONSULTANT Inactive 07/20/2017 [facility] albumin human 25% intravenous solution 12.5 gm, 50 mL, Route: IVPB, Drug form: INJ, ONCE, Dosing Weight 120.6, kg, Start date: 07/20/17 11:01:00 QUANTITATIVE CONSULTANT, Stop date: 07/20/17 11:01:00 CSTNotes: LOT#: Mfg: WASTE: F/P - Red; E -Red (Same as: Albuminar) "blood product derivative" Inactive 07/20/2017 [facility] Ceftriaxone 1 gm, Route: IV, Drug form: PDR/INJ, [id number], Dosing Weight 120.6, kg, Start date: 07/20/17 10:00:00 QUANTITATIVE CONSULTANT, Duration: 7 day, Stop date: 07/26/17 22:00:00 CDT, ABX Indication: BacteremiaNotes: (Same As: Kimberly rausch). MEDICATION WASTE Product Size: 1000 mg Product Wasted: _0__ mg No Longer Active 07/20/2017 [facility] Potassium Chloride 20 mEq, 10 mL, Route: IVPB, Q1H, Dosing Weight 120.6, kg, Total dose=40 mEq, Start date: 07/20/17 9:00:00 QUANTITATIVE CONSULTANT, Duration: 2 doses or times, Stop date: 07/20/17 10:00:00 CSTNotes: MUST be Diluted before use (Same as: KCl) MEDICATION WASTE Product Size: 40 mEq Product Wasted: _20__ mEq Inactive 07/20/2017 [facility] Vancomycin 1,000 mg, Route: IVPB, ONCE, Dosing Weight 120.6, kg, Start date: 07/19/17 18:00:00 QUANTITATIVE CONSULTANT, Stop date: 07/19/17 18:00:00 QUANTITATIVE CONSULTANT, ABX Indication: BacteremiaNotes: TIME CRITICAL MEDICATION (Same As: Vancocin) Infusion rate 2001 mg: infuse over 2.5 hours For adult patients only: Round to nearest 250 mg per Medical Staff approval MEDICATION WASTE Product Size: 1000 mg Product Wasted: ___ mg Inactive 07/20/2017 [facility] heparin sodium, porcine 2500 UNT/ML Injectable Solution 5,000 unit, 1 mL, Route: SUB-Q, Drug form: INJ, Q8H, Dosing Weight 120.6, kg, Start date: 07/19/17 16:00:00 QUANTITATIVE CONSULTANT, Duration: 30 day, Stop date: 08/18/17 8:00:00 CDTNotes: porcine heparin No Longer Active 07/19/2017 [facility] Lactulose 667 MG/ML Oral Solution 10 gm, 15 mL, Route: PO, Drug form: SYRP, BID, Dosing Weight 120.6, kg, Start date: 07/18/17 17:00:00 QUANTITATIVE CONSULTANT, Duration: 30 day, Stop date: 08/17/17 9:00:00 CDTNotes: (Same as:Chronulac) No Longer Active 07/18/2017 [facility] Miralax 17 gm, 1 pkt, Route: PO, Drug form: PWDR, BID, Dosing Weight 120.6, kg, Start date: 07/18/17 17:00:00 QUANTITATIVE CONSULTANT, Duration: 30 day, Stop date: 08/17/17 9:00:00 CDTNotes: Dissolve in 8 oz of water or juice. (Same as: Miralax) No Longer Active 07/18/2017 [facility] Acetaminophen 1,000 mg, 31.23 mL, Route: NG, Drug form: LIQ, Q6H, Dosing Weight 120.6, kg, PRN For Temp > 101 F, Start date: 07/18/17 12:02:00 QUANTITATIVE CONSULTANT, Duration: 30 day, Stop date: 08/17/17 12:01:00 CDT No Longer Active 07/18/2017 [facility] Mannitol 12.5 gm, 50 mL, Route: IVPB, Drug form: INJ, ONCE, Dosing Weight 120.6, kg, Start date: 07/18/17 10:26:00 QUANTITATIVE CONSULTANT, Stop date: 07/18/17 10:26:00 CSTNotes: (Same as: Osmitrol) WASTE: F/P - Sink; E - Municipal Trash Bin Inactive 07/18/2017 [facility] Digoxin 250 microgram, 1 mL, Route: IV, Drug form: INJ, ONCE, Dosing Weight 120.6, kg, Start date: 07/18/17 9:47:00 QUANTITATIVE CONSULTANT, Stop date: 07/18/17 9:47:00 CSTNotes: (Same as: Lanoxin) Inactive 07/18/2017 [facility] Lopressor 5 mg, 5 mL, Route: IVP, Drug form: INJ, Q6H, Dosing Weight 120.6, kg, PRN Tachycardia, Start date: 07/18/17 9:47:00 QUANTITATIVE CONSULTANT, Duration: 30 day, Stop date: 08/17/17 9:46:00 CDT, hr >120Notes: (Same as: Lop ressor) Push over 2 minutes No Longer Active 07/18/2017 [facility] vancomycin + Sodium Chloride 0.9% IV 250 mL 1,000 mg, Route: IVPB, ONCE, Start date: 07/17/17 14:00:00 QUANTITATIVE CONSULTANT, Stop date: 07/17/17 14:00:00 QUANTITATIVE CONSULTANT, ABX Indication: BacteremiaNotes: TIME CRITICAL MEDICATION (Same As: Vancocin) Infusion rate 2001 mg: infuse over 2.5 hours For adult patients only: Round to nearest 250 mg per Medical Staff approval MEDICATION WASTE Product Size: 1000 mg Product Wasted: ___ mg Inactive 07/17/2017 [facility] heparin 5,000 unit, 5 mL, Route: DIALYSIS, Drug form: INJ, ONCE, Dosing Weight 120.6, kg, Start date: 07/17/17 12:55:00 QUANTITATIVE CONSULTANT, Stop date: 07/17/17 12:55:00 QUANTITATIVE CONSULTANT Inactive 07/17/2017 [facility] heparin sodium, porcine 2500 UNT/ML Injectable Solution 5,000 unit, 5 mL, Route: DIALYSIS, Drug form: INJ, ONCE, Dosing Weight 120.6, kg, Start date: 07/17/17 11:55:00 QUANTITATIVE CONSULTANT, Stop date: 07/17/17 11:55:00 QUANTITATIVE CONSULTANT Inactive 07/17/2017 [facility] calcium chloride + Sodium Chloride 0.9% IV 50 mL 1,000 mg, 10 mL, Route: IVPB, Drug form: INJ, ONCE, Dosing Weight 120.6, kg, Start date: 07/17/17 8:19:00 QUANTITATIVE CONSULTANT, Stop date: 07/17/17 8:19:00 QUANTITATIVE CONSULTANT Inactive 07/17/2017 [facility] sodium bicarbonate 8.4% 150 mEq + Dextrose 5% in Water IV 1,000 mL 1,000 mL, Rate: 100 ml/hr, Infuse over: 11.5 hr, Route: IV, Dosing Weight 120.6 kg, Total Volume: 1,150, Start date: 07/17/17 7:03:00 QUANTITATIVE CONSULTANT, Duration: 30 day, Stop date: 08/16/17 7:02:00 CDT, 2.58, m2 No Longer Active 07/17/2017 [facility] Insulin regular 12 unit, Route: SUB-Q, ONCE, Dosing Weight 120.6, kg, Start date: 07/17/17 7:03:00 QUANTITATIVE CONSULTANT, Stop date: 07/17/17 7:03:00 QUANTITATIVE CONSULTANT Inactive 07/17/2017 [facility] Bumex 3 mg, 12 mL, Route: IV, Drug form: INJ, ONCE, Dosing Weight 120.6, kg, Priority: STAT, Start date: 07/17/17 7:03:00 QUANTITATIVE CONSULTANT, Stop date: 07/17/17 7:03:00 CSTNotes: (Same As: Bumex) Inactive 07/17/2017 [facility] d50 syringe Route: IVP, Dosing Weight 120.6, kg, ONCE, Start date: 07/17/17 7:03:00 QUANTITATIVE CONSULTANT, Stop date: 07/17/17 7:03:00 QUANTITATIVE CONSULTANT Inactive 07/17/2017 [facility] Calcium Chloride 1,000 mg, 10 mL, Route: IVPB, Drug form: INJ, ONCE, Dosing Weight 120.6, kg, Start date: 07/17/17 7:03:00 QUANTITATIVE CONSULTANT, Stop date: 07/17/17 7:03:00 QUANTITATIVE CONSULTANT Inactive 07/17/2017 [facility] Sodium Chloride 0.9% (Bolus) IV 1,000 mL, 1,000 ml/hr, Infuse Over: 1 hr, Route: IV, ONCE, Priority: STAT, Dosing Weight 120.6 kg, Start date: 07/17/17 7:03:00 QUANTITATIVE CONSULTANT, Stop date: 07/17/17 7:03:00 QUANTITATIVE CONSULTANT Inactive 07/17/2017 [facility] AMIODarone 900 mg in D5W 500 ml IV 900 mg + Dextrose 5% in Water IV 482 mL 900 mg, 18 mL, Rate: 1 mg/min for 6 hours, then reduce to 0.5 mg/min, Dosing Weight 113.4, kg, Route: IV, Total Volume: 500, Start Date: 07/17/17 5:23:00 QUANTITATIVE CONSULTANT, Duration: 30 day, Stop date: 08/16/17 5:22:00 CDT, Replace Every: 24 hrNotes: Central administration only for concentration > 2 mg/ml. Use Glass Bottle or Non PVC Bag "Use 0.22 micron in-line filter" MEDICATION WASTE Product Size: 900 mg Product Wasted: ___ mg Inactive 07/17/2017 [facility] Insulin regular 10 unit, 0.1 mL, Route: IV, Drug form: INJ, ONCE, Dosing Weight 113.4, kg, Start date: 07/17/17 5:12:00 QUANTITATIVE CONSULTANT, Stop date: 07/17/17 5:12:00 CSTNotes: (Same as: Humulin R and NovoLIN R) WASTE: F/P - Lit ck; E - Municipal Trash Bin (Do not shake) Inactive 07/17/2017 [facility] Calcium Gluconate 1,000 mg, 10 mL, Route: IVPB, ONCE, Dosing Weight 113.4, kg, Start date: 07/17/17 5:12:00 QUANTITATIVE CONSULTANT, Stop date: 07/17/17 5:12:00 CSTNotes: WASTE: F/P - Sink; E - Municipal Trash Bin Inactive 07/17/2017 [facility] sodium bicarbonate 8.4% 50 mEq, 50 ml, Route: IVP, Drug Form: INJ, Dosing Weight 113.4, kg, ONCE, Start date: 07/17/17 5:12:00 QUANTITATIVE CONSULTANT, Stop date: 07/17/17 5:12:00 CSTNotes: (sodium bicarb 8.4% (1 mEq/ml) 50 ml syringe) Inactive 07/17/2017 [facility] Dextrose 50% Syringe 25 gm, 50 mL, Route: IVP, Drug Form: INJ, Dosing Weight 113.4, kg, ONCE, Start date: 07/17/17 5:12:00 QUANTITATIVE CONSULTANT, Stop date: 07/17/17 5:12:00 QUANTITATIVE CONSULTANT Inactive 07/17/2017 [facility] Sodium Chloride 0.9% (Bolus) IV 500 mL, 500 ml/hr, Infuse Over: 1 hr, Route: IV, ONCE, Priority: STAT, Dosing Weight 113.4 kg, Start date: 07/17/17 1:56:00 QUANTITATIVE CONSULTANT, Stop date: 07/17/17 1:56:00 QUANTITATIVE CONSULTANT Inactive 07/17/2017 [facility] heparin additive 25,000 unit [14 unit/kg/hr] + Premix Diluent Dextrose 5% 500 mL 500 mL, Rate: 28.06 ml/hr, Infuse over: 17.8 hr, Route: IV, Dosing Weight 100.2 kg, Total Volume: 500 mL, Start date: 07/16/17 16:39:00 QUANTITATIVE CONSULTANT, Duration: 30 day, Stop date: 08/15/17 16:38:00 CDT, 2.35, m2 No Longer Active 07/16/2017 [facility] Fentanyl 1,250 microgram, 250 mL, Rate: Titrate, Start Dose: 100 microgram/hr, Titration: 25 micrograms/hour every 15 minutes, Goal(s): RASS -1 TO -2, Max Dose: 300 microgram/hr, Route: IV, Dosing Weight 120.6 kg, Total Volume: 250, Priority: STAT, Start date:...Notes: Concentration: 5 microgram / ml No Longer Active 07/16/2017 [facility] NS (Bolus) IV 500 mL, 250 ml/hr, Infuse Over: 2 hr, Route: IV, 500, Drug form: INJ, ONCE, Priority: STAT, Dosing Weight 113.4 kg, Start date: 07/16/17 13:33:00 QUANTITATIVE CONSULTANT, Stop date: 07/16/17 13:33:00 QUANTITATIVE CONSULTANT Inactive 07/16/2017 [facility] Vasopressin (ASSISTED) 40 unit, 2 mL, Rate: 6 ml/hr, Infuse over: 16.7 hr, Start Dose: 0.04 unit/min, Titration: DO NOT TITRATE, Goal(s): MAP >=65 mmHg, Max Dose: 0.04 unit/min, Route: IV, Dosing Weight 113.4 kg, Total Volume: 100 For Sepsis, Start date: 07/16/17 13:06:00...Notes: (Same As: Pitressin, Vasostrict) No Longer Active 07/16/2017 [facility] vancomycin + Sodium Chloride 0.9% IV 250 mL 1,500 mg, Route: IVPB, ONCE, Start date: 07/16/17 13:00:00 QUANTITATIVE CONSULTANT, Stop date: 07/16/17 13:00:00 QUANTITATIVE CONSULTANT, ABX Indication: BacteremiaNotes: TIME CRITICAL MEDICATION (Same As: Vancocin) Infusion rate 2001 mg: infuse over 2.5 hours For adult patients only: Round to nearest 250 mg per Medical Staff approval MEDICATION WASTE Product Size: 1000 mg Product Wasted: ___ mg Inactive 07/16/2017 [facility] albumin human 5% intravenous solution 25 gm, 500 mL, 500 ml/hr, Route: IV, Drug Form: INJ, Dosing Weight 113.4, kg, ONCE, STAT, Start date: 07/16/17 12:46:00 QUANTITATIVE CONSULTANT, Stop date: 07/16/17 12:46:00 CSTNotes: LOT#: Mfg: (Same as: Albuminar) "blood product derivative" WASTE: F/P - Red; E -Red MEDICATION WASTE Product Size: 25 gm Product Wasted: ___ gm Inactive 07/16/2017 [facility] Lopressor 2.5 mg, 2.5 mL, Route: IVP, Drug form: INJ, ONCE, Dosing Weight 113.4, kg, Start date: 07/16/17 11:57:00 QUANTITATIVE CONSULTANT, Stop date: 07/16/17 11:57:00 CSTNotes: (Same as: Lopressor) Push over 2 minutes Inactive 07/16/2017 [facility] Vancomycin 1 ea, Route: MISC, ONCALL, Dosing Weight 113.4, kg, Priority: STAT, Start date: 07/16/17 11:29:00 QUANTITATIVE CONSULTANT, Duration: 10 day, Stop date: 07/26/17 12:28:00 CDT, Pharmacy to dose, ABX Indication: Bacteremia Inactive 07/16/2017 [facility] Cisatracurium 40 mg, 20 mL, Rate: Titrate, Start Dose: 0.5 microgram/kg/min, Titration: 0.25 microgram/kg/minute every 15 minutes, Goal(s): TOF=2 twitches, Max Dose: 5 microgram/kg/min, Route: IV, Dosing Weight 113.4 kg, Total Volume: 100, Start date: 07/16/17 10...Notes: (Same As: Nimbex) No Longer Active 07/16/2017 [facility] Heparin 40 unit/kg Bolus (Heparin Dosing Weight) Route: IVP, PRN, 4,000 unit, 4 mL, Drug form: INJ, PRN, Heparin Protocol, Start date: 07/16/17 10:25:00 QUANTITATIVE CONSULTANT Stop date: 08/15/17 11:24:00 CDT, 30 day Inactive 07/16/2017 [facility] Heparin 80 unit/kg Bolus (Heparin Dosing Weight) Route: IVP, PRN, 8,000 unit, 8 mL, Drug form: INJ, PRN, Heparin Protocol, Start date: 07/16/17 10:25:00 QUANTITATIVE CONSULTANT Stop date: 08/15/17 11:24:00 CDT, 30 day Inactive 07/16/2017 [facility] heparin additive 25,000 unit [18 unit/kg/hr] + Premix Diluent Dextrose 5% 500 mL 500 mL, Rate: 36.07 ml/hr, Infuse over: 13.9 hr, Route: IV, Dosing Weight 100.2 kg, Total Volume: 500 mL, Start date: 07/16/17 10:25:00 QUANTITATIVE CONSULTANT, Duration: 30 day, Stop date: 08/15/17 10:24:00 CDT, 2.35, m2 Inactive 07/16/2017 [facility] Cisatracurium 15 mg, 7.5 mL, Route: IV, Drug form: INJ, ONCE, Dosing Weight 113.4, kg, Priority: STAT, Start date: 07/16/17 10:15:00 QUANTITATIVE CONSULTANT, Stop date: 07/16/17 10:15:00 CSTNotes: (Same As: Nimbex) Inactive 07/16/2017 [facility] Vancomycin 1,000 mg, Route: IVPB, [id number], Dosing Weight 113.4, kg, Start date: 07/16/17 9:00:00 QUANTITATIVE CONSULTANT, Duration: 7 day, Stop date: 07/22/17 9:00:00 QUANTITATIVE CONSULTANT, ABX Indication: PneumoniaNotes: TIME CRITICAL MEDICATION ( Same As: Vancocin) Infusion rate 2001 mg: infuse over 2.5 hours For adult patients only: Round to nearest 250 mg per Medical Staff approval MEDICATION WASTE Product Size: 1000 mg Product Wasted: ___ mg Inactive 07/16/2017 [facility] Famotidine 20 mg, 1 tab, Route: NG, Drug form: TAB, Q24H, Dosing Weight 112, kg, Start date: 07/15/17 21:00:00 QUANTITATIVE CONSULTANT, Stop date: 08/14/17 9:00:00 CDTNotes: (Same as: Pepcid) No Longer Active 07/16/2017 [facility] Amiodarone 150 mg, 3 mL, Route: IVPB, ONCE, Dosing Weight 112, kg, Start date: 07/15/17 20:05:00 QUANTITATIVE CONSULTANT, Stop date: 07/15/17 20:05:00 CSTNotes: Central administration only for concentrations > 2 mg/ml. "Recommendation: Use an in-line filter during administration for continuous infusions to reduce the incidence of phlebitis" (Same as Codarone) MEDICATION WASTE Product Size: 150 mg Product Wasted: ___ mg Inactive 07/16/2017 [facility] AMIODarone 900 mg in D5W 500 ml IV 900 mg + Dextrose 5% in Water IV 482 mL 900 mg, 18 mL, Rate: 1 mg/min for 6 hours, then reduce to 0.5 mg/min, Dosing Weight 112, kg, Route: IV, Total Volume: 500, Start Date: 07/15/17 20:05:00 QUANTITATIVE CONSULTANT, Duration: 24 hr, Stop date: 07/16/17 20:04:00 QUANTITATIVE CONSULTANT, Replace Every: 24 hrNotes: Central administration only for concentration > 2 mg/ml. Use Glass Bottle or Non PVC Bag "Use 0.22 micron in-line filter" MEDICATION WASTE Product Size: 900 mg Product Wasted: ___ mg No Longer Active 07/16/2017 [facility] cefepime 1 gm, Route: IVPB, [id number], Dosing Weight 112, kg, CrCl >/=50 ml/min, Start date: 07/15/17 16:00:00 QUANTITATIVE CONSULTANT, Stop date: 07/21/17 20:00:00 QUANTITATIVE CONSULTANT, ABX Indication: PneumoniaNotes: (Same As: Maxipime) MEDICATION WASTE Product Size: 1000 mg Product Wasted: __0_ mg No Longer Active 07/15/2017 [facility] Ofirmev 1,000 mg, 100 mL, Route: IV, Drug form: INJ, Q6H, Dosing Weight 112, kg, PRN For Temp > 100.4 F, for > or=50 kg, Start date: 07/15/17 12:55:00 QUANTITATIVE CONSULTANT, Duration: 30 day, Stop date: 08/14/17 12:54:00 CDTNotes: Infuse over 15 minutes Do not exceed 4gm/day of acetaminophen MEDICATION WASTE Product Size: 1000 mg Product Wasted: ___ mg No Longer Active 07/15/2017 [facility] Calcium Chloride 10 mg/kg, Route: IVPB, Drug form: SOLN, ONCE, Dosing Weight 112, kg, Start date: 07/15/17 12:35:00 QUANTITATIVE CONSULTANT, Stop date: 07/15/17 12:35:00 QUANTITATIVE CONSULTANT Inactive 07/15/2017 [facility] cefepime + sterile water 10 mL 1 gm, Route: IV, Drug form: INJ, [id number], Start date: 07/15/17 10:00:00 QUANTITATIVE CONSULTANT, Duration: 1 doses or times, Stop date: 07/15/17 10:00:00 QUANTITATIVE CONSULTANT, ABX Indication: PneumoniaNotes: (Same As: Maxipime) MEDICATION WASTE Product Size: 1000 mg Product Wasted: _0__ mg Inactive 07/15/2017 [facility] Acetaminophen 1,000 mg, 31.23 mL, Route: NG, Drug form: LIQ, Q6H, Dosing Weight 112, kg, PRN For Temp > 101 F, Start date: 07/15/17 9:12:00 QUANTITATIVE CONSULTANT, Duration: 30 day, Stop date: 08/14/17 9:11:00 CDT No Longer Active 07/15/2017 [facility] Docusate 100 mg, 10 mL, Route: PO, Drug form: LIQ, BID, Dosing Weight 112.6, kg, Start date: 07/15/17 9:00:00 QUANTITATIVE CONSULTANT, Stop date: 08/13/17 17:00:00 CDTNotes: (Same as: Colace) No Longer Active 07/15/2017 [facility] ocular lubricant 1 appl, Route: BOTH EYES, Q6H, Drug form: OINT, Start date: 07/15/17 0:00:00 QUANTITATIVE CONSULTANT, Duration: 30 day, Stop date: 08/13/17 18:00:00 CDTNotes: (Same as: Lacri-Lube, Duratears Naturale, Artificial Tears, and Tears Again ) No Longer Active 07/15/2017 [facility] Lopressor 12.5 mg, 0.5 tab, Route: PO, Drug form: TAB, Q12H, Dosing Weight 112.6, kg, Start date: 07/14/17 21:00:00 QUANTITATIVE CONSULTANT, Duration: 30 day, Stop date: 08/13/17 9:00:00 CDTNotes: (Same as: Lopressor) No Longer Active 07/15/2017 [facility] chlorhexidine gluconate 1.2 MG/ML Mouthwash 15 mL, Route: Swab Mouth, Q12H, Drug form: LIQ, Start date: 07/14/17 21:00:00 QUANTITATIVE CONSULTANT, Duration: 30 day, Stop date: 08/13/17 9:00:00 CDTNotes: (Same As: Peridex) No Longer Active 07/15/2017 [facility] Morphine 2 mg, Route: IVP, Q4H, Dosing Weight 112.6, kg, PRN Pain Score 4-6, Start date: 07/14/17 19:13:00 QUANTITATIVE CONSULTANT, Duration: 30 day, Stop date: 08/13/17 19:12:00 CDT Inactive 07/15/2017 [facility] propofol 10 mg/mL (Titrate.) IV 1,000 mg 1,000 mg, 100 mL, Rate: Titrate, Start Dose: 5 microgram/kg/min, Titration: 5 microgram/kg/min every 15 minutes, Goal(s): -3, Max Dose: 50 mcg/kg/min, Route: IV, Dosing Weight 112.6 kg, Total Volume: 100, Start date: 07/14/17 19:13:00 QUANTITATIVE CONSULTANT, Duration: 3...Notes: If Diprivan - change bottle & tubing every 12 hr Per state nursing law propofol can only be given by a nurse if patient is intubated or being intubated (unless the nurse is a CHANNEL C[employer]ER OUTSOLE MACHINE). Same as: Diprivan No Longer Active 07/15/2017 [facility] chlorhexidine gluconate 1.2 MG/ML Mouthwash 15 mL, Route: Swab Mouth, PRN, Drug form: LIQ, PRN Other -See Comment, Start date: 07/14/17 19:10:00 QUANTITATIVE CONSULTANT, Duration: 30 day, Stop date: 08/13/17 20:09:00 CDTNotes: (Same As: Peridex) No Longer Active 07/15/2017 [facility] Fentanyl 100 microgram, 2 mL, Route: IV, Drug form: INJ, Q2H, Dosing Weight 112.6, kg, PRN Pain Score 6-10, Start date: 07/14/17 13:06:00 QUANTITATIVE CONSULTANT, Duration: 30 day, Stop date: 08/13/17 13:05:00 CDTNotes: (Same as: Sublimaze) Preservative free. No Longer Active 07/14/2017 [facility] Fentanyl 100 microgram, 2 mL, Route: IV, Drug form: INJ, Q2H-WA, Dosing Weight 112.6, kg, Start date: 07/14/17 12:00:00 QUANTITATIVE CONSULTANT, Duration: 30 day, Stop date: 08/13/17 10:00:00 CDTNotes: (Same as: Sublimaze) Pres ervative free. Inactive 07/14/2017 [facility] Albuterol 0.833 MG/ML / Ipratropium [place] 0.167 MG/ML Inhalant Solution [DuoNeb] 3 ml, Route: NEB, Drug Form: SOLN, Dosing Weight 112.6, kg, PRN, PRN Respiratory Protocol, Start date: 07/14/17 11:27:00 QUANTITATIVE CONSULTANT, Duration: 30 day, Stop date: 08/13/17 12:26:00 CDTNotes: (Same as: Duoneb) No Longer Active 07/14/2017 [facility] Albuterol 1 MG/ML Inhalant Solution 2.49 mg, 3 mL, Route: NEB, Drug form: SOLN, Q6H, Dosing Weight 112.6, kg, PRN as needed for wheezing, Start date: 07/14/17 11:26:00 QUANTITATIVE CONSULTANT, Duration: 30 day, Stop date: 08/13/17 11:25:00 CDTNotes: SEE RT DOCUMENTATION (Same as: Proventil) No Longer Active 07/14/2017 [facility] clopidogrel 75 mg, 1 tab, Route: PO, Drug form: TAB, Daily, Dosing Weight 112.6, kg, Start date: 07/14/17 9:00:00 QUANTITATIVE CONSULTANT, Duration: 30 day, Stop date: 08/12/17 9:00:00 CDTNotes: (Same As: Plavix) No Longer Active 07/14/2017 [facility] Lasix 40 mg, 4 mL, Route: IVP, Drug form: INJ, Q8H-06, Dosing Weight 112.6, kg, Start date: 07/14/17 6:00:00 QUANTITATIVE CONSULTANT, Duration: 30 day, Stop date: 08/12/17 22:00:00 CDTNotes: (Same as: Lasix) MEDICATION WASTE Product Size: 40 mg Product Wasted: ___ mg No Longer Active 07/14/2017 [facility] chlorhexidine gluconate 1.2 MG/ML Mouthwash 15 mL, Route: Swab Mouth, Q12H, Drug form: LIQ, Start date: 07/13/17 21:00:00 QUANTITATIVE CONSULTANT, Duration: 30 day, Stop date: 08/12/17 9:00:00 CDTNotes: (Same As: Peridex) No Longer Active 07/14/2017 [facility] Famotidine 20 mg, 2 mL, Route: IVPB, Drug form: INJ, Q12H, Dosing Weight 112.6, kg, Start date: 07/13/17 21:00:00 QUANTITATIVE CONSULTANT, Duration: 30 day, Stop date: 08/12/17 9:00:00 CDTNotes: (Same as: Pepcid) Can be dilute in 5-10cc NS IVP: Slow IV push over at least 2 minutes. No Longer Active 07/14/2017 [facility] Lopressor 25 mg, 1 tab, Route: PO, Drug form: TAB, Q12H, Dosing Weight 112.6, kg, Start date: 07/13/17 21:00:00 QUANTITATIVE CONSULTANT, Duration: 30 day, Stop date: 08/12/17 9:00:00 CDTNotes: (Same as: Lopressor) Inactive 07/14/2017 [facility] Vancomycin 1,750 mg, Route: IVPB, Q12H, Dosing Weight 112.6, kg, Time Critical Medication, Start date: 07/13/17 21:00:00 QUANTITATIVE CONSULTANT, Duration: 2 doses or times, Stop date: 07/14/17 9:00:00 QUANTITATIVE CONSULTANT, ABX Indication: Surgical P rophylaxisNotes: TIME CRITICAL MEDICATION (Same As: Vancocin) Infusion rate 2001 mg: infuse over 2.5 hours For adult patients only: Round to nearest 250 mg per Medical Staff approval MEDICATION WASTE Product Size: 1000 mg Product Wasted: ___ mg No Longer Active 07/14/2017 [facility] Lopressor 5 mg, 5 mL, Route: IVP, Drug form: INJ, Q6H, Dosing Weight 112.6, kg, Start date: 07/13/17 18:00:00 QUANTITATIVE CONSULTANT, Duration: 30 day, Stop date: 08/12/17 12:00:00 CDTNotes: (Same as: Lopressor) Push over 2 minutes No Longer Active 07/14/2017 [facility] ocular lubricant 1 appl, Route: BOTH EYES, Q6H, Drug form: OINT, Start date: 07/13/17 18:00:00 QUANTITATIVE CONSULTANT, Duration: 30 day, Stop date: 08/12/17 12:00:00 CDTNotes: (Same as: Lacri-Lube, Duratears Naturale, Artificial Tears, and Tears Again ) No Longer Active 07/14/2017 [facility] Tylenol 1,000 mg, 100 mL, Route: IVPB, Drug form: INJ, Q6H, Dosing Weight 112.6, kg, PRN For Temp > 101 F, Start date: 07/13/17 17:56:00 QUANTITATIVE CONSULTANT, Duration: 30 day, Stop date: 08/12/17 17:55:00 CDTNotes: Infuse over 15 minutes Do not exceed 4gm/day of acetaminophen MEDICATION WASTE Product Size: 1000 mg Product Wasted: ___ mg No Longer Active 07/13/2017 [facility] Mupirocin 0.02 MG/MG Topical Ointment 1 appl, Route: NASAL, BID, Drug form: OINT, Start date: 07/13/17 17:00:00 QUANTITATIVE CONSULTANT, Duration: 5 day, Stop date: 07/18/17 9:00:00 QUANTITATIVE CONSULTANT No Longer Active 07/13/2017 [facility] Dexmedetomidine 200 microgram, 2 mL, Rate: Titrate, Start Dose: 0.2 microgram/kg/hr, Titration: 0.1 microgram/kg/hr every 30 min, Goal(s): -1, Max Dose: 1.5 microgram/kg/hr, Route: IV, Dosing Weight 112.6 kg, Total Volume: 50, Start date: 07/13/17 16:56:00 QUANTITATIVE CONSULTANT, Durat... No Longer Active 07/13/2017 [facility] Cefazolin 2 gm, Route: IVP, Drug form: PDR/INJ, Q8H, Dosing Weight 112.6, kg, Start date: 07/13/17 16:00:00 QUANTITATIVE CONSULTANT, Duration: 3 doses or times, Stop date: 07/14/17 8:00:00 QUANTITATIVE CONSULTANT, ABX Indication: Surgical ProphylaxisNo savanah: (Same As: Yovanny Jorge) MEDICATION WASTE Product Size: 1000 mg Product Wasted: ___ mg No Longer Active 07/13/2017 [facility] protamine (ANES) 10 mg Route: IV, Drug form: INJ, Start date: 07/13/17 14:06:00 QUANTITATIVE CONSULTANT, Stop date: 07/13/17 15:06:00 QUANTITATIVE CONSULTANT Inactive 07/13/2017 [facility] EPINEPHrine (ANES) 16 microgram Route: IV, Drug form: INJ, Start date: 07/13/17 13:25:00 QUANTITATIVE CONSULTANT, Stop date: 07/13/17 14:25:00 QUANTITATIVE CONSULTANT Inactive 07/13/2017 [facility] chlorhexidine gluconate 1.2 MG/ML Mouthwash 15 mL, Route: Swab Mouth, PRN, Drug form: LIQ, PRN Other -See Comment, Start date: 07/13/17 12:59:00 QUANTITATIVE CONSULTANT, Duration: 30 day, Stop date: 08/12/17 13:58:00 CDTNotes: (Same As: Peridex) No Longer Active 07/13/2017 [facility] Magnesium Sulfate 2 gm, 50 mL, Route: IVPB, Drug form: INJ, PRN, Dosing Weight 112.6, kg, PRN Abnormal Lab Result, Start date: 07/13/17 12:59:00 QUANTITATIVE CONSULTANT, Duration: 30 day, Stop date: 08/12/17 13:58:00 CDT, FOR ICU USE ONLYNotes: WASTE: F/P - Sink; E - Municipal Trash Bin No Longer Active 07/13/2017 [facility] Dextrose 50% Syringe 12.5 gm, 25 mL, Route: IVP, Drug Form: INJ, Dosing Weight 112.6, kg, PRN, PRN Blood Glucose Results, Start date: 07/13/17 12:59:00 QUANTITATIVE CONSULTANT, Duration: 30 day, Stop date: 08/12/17 13:58:00 CDT No Longer Active 07/13/2017 [facility] Insulin regular 100 unit + Sodium Chloride 0.9% (titrate) 99 mL 99 mL, Rate: Start Insulin Drip Per ICU Protocol, Dosing Weight 112.6, kg, Route: IVPB, Total Volume: 100, Start Date: 07/13/17 12:59:00 QUANTITATIVE CONSULTANT, Duration: 30 day, Stop date: 08/12/17 12:58:00 CDT, Replace Every: 24 hrNotes: (Same as: Humulin R) Roll in palms of hands gently; Do not shake vigorously. "single patient use only" (Restricted to patients requiring a dose > 60 units) WASTE: F/P - Black; E - Municipal Trash Bin Stable for 28 days at room temperature Expires in days from Date No Longer Active 07/13/2017 [facility] Potassium Chloride 10 mEq, 100 mL, Route: IVPB, Drug form: INJ, PRN, Dosing Weight 112.6, kg, PRN Abnormal Lab Result, Via peripheral line, Start date: 07/13/17 12:59:00 QUANTITATIVE CONSULTANT, Duration: 30 day, Stop date: 08/12/17 13:58:00 CDT, FOR ICU USE ONLYNotes: Infuse at a rate of 10 mEq/hr. (Same as: KCL) No Longer Active 07/13/2017 [facility] Phenylephrine 50 mg, 5 mL, Rate: Titrate, Start Dose: 35 microgram/min, Titration: 25 microgram/min every 2-5 minutes, Goal(s): for SBP greater than 90, Max Dose: 350 mcg/min, Route: IV, Dosing Weight 112.6 kg, Total Volume: 250, Start date: 07/13/17 12:59:00 QUANTITATIVE CONSULTANT,...Notes: (Same as: Giorgi- Synephrine) No Longer Active 07/13/2017 [facility] Norepinephrine 8 mg, 250 mL, Rate: Titrate, Start Dose: 5 microgram/min, Titration: 2 microgram/min every 2-5 minutes, Goal(s): for SBP greater than 90, Max Dose: 70 microgram/min, Route: IV, Dosing Weight 112.6 kg, Total Volume: 250, Start date: 07/13/17 12:59:00 C...Notes: Same as: Levophed. Administer by either central venous catheter or peripherally-inserted central catheter (PICC) line. Concentration: 0.032 mg / mL No Longer Active 07/13/2017 [facility] Epinephrine 4 mg, 4 mL, Rate: Titrate, Start Dose: 1 microgram/min, Titration: 0.5 microgram/min every 2 - 5 min, Goal(s): for SBP greater than 90, Max Dose: 35 mcg/min, Route: IV, Dosing Weight 112.6 kg, Total Volume: 250, Start date: 07/13/17 12:59:00 QUANTITATIVE CONSULTANT, Dura...Notes: (Same as: Adrenalin) [employer] - Injectable drug used as inhalation treatment. MEDICATION WASTE Product Size: 1 mg Product Wasted: ___ mg No Longer Active 07/13/2017 [facility] 1/2NS + KCL 20mEq/L 1000ml (Premix) 1,000 mL 1,000 mL, Rate: 50 ml/hr, Infuse over: 20 hr, Route: IV, Dosing Weight 112.6 kg, Total Volume: 1,000, Start date: 07/13/17 12:59:00 QUANTITATIVE CONSULTANT, Duration: 30 day, Stop date: 08/12/17 12:58:00 CDT, 2.49, [id number]: PREMIX IV - Do Not Alter WASTE: F/P - Sink; E - Municipal Trash Bin No Longer Active 07/13/2017 [facility] 1/2 NS 500 mL 500 mL, Rate: 10.42 ml/hr, Infuse over: 48 hr, Route: IV, Dosing Weight 112.6 kg, Total Volume: 500, Start date: 07/13/17 12:59:00 QUANTITATIVE CONSULTANT, Stop date: 08/12/17 12:58:00 CDT, 2.49, m2 No Longer Active 07/13/2017 [facility] PlasmaLyte A PH-7.4 500 mL 500 mL, Rate: As Directed, Rate: 0 ml/hr, Infuse over: 0, Route: IV, Dosing Weight 112.6 kg, Total Volume: 500, Start date: 07/13/17 12:59:00 QUANTITATIVE CONSULTANT, Stop date: 08/12/17 12:58:00 CDT, 2.49, [id number]: WASTE: F/P - Sink; E - Municipal Trash Bin No Longer Active 07/13/2017 [facility] Nicardipine 40 mg, 200 mL, Rate: Titrate, Start Dose: 5 mg/hr, Titration: 2.5 mg/hr every 15 minutes, Goal(s): SBP Notes: Same as: Cardene Concentration: (0.2 mg /1 ml ) No Longer Active 07/13/2017 [facility] Nitroglycerin 100 mg, 250 mL, Rate: Titrate, Start Dose: 0.2 microgram/min, Titration: 0.2 microgram/min every 5 minutes, Goal(s): SBP Notes: (Same as:Tridil) Final conc=0.4 mg/ml. Premix bottle. No Longer Active 07/13/2017 [facility] Morphine 4 mg, 2 mL, Route: IVP, Drug form: INJ, Q1H, Dosing Weight 112.6, kg, PRN Pain Score 7-10, Start date: 07/13/17 12:59:00 QUANTITATIVE CONSULTANT, Duration: 30 day, Stop date: 08/12/17 13:58:00 CDTNotes: (Same as:MORPhine Sulfate) No Longer Active 07/13/2017 [facility] Acetaminophen 325 MG / Hydrocodone Bitartrate 5 MG Oral Tablet 2 tab, Route: PO, Drug Form: TAB, Dosing Weight 112.6, kg, Q4H, PRN Pain Score 4-6, Start date: 07/13/17 12:59:00 QUANTITATIVE CONSULTANT, Duration: 30 day, Stop date: 08/12/17 12:58:00 CDTNotes: (Same as: [place] 325/5) Do not exceed 4gm/day of acetaminophen. No Longer Active 07/13/2017 [facility] Acetaminophen 650 mg, 2 tab, Route: PO, Drug form: TAB, Q4H, Dosing Weight 112.6, kg, PRN Pain 1-3/Temp > 100.4 F, Start date: 07/13/17 12:59:00 QUANTITATIVE CONSULTANT, Duration: 30 day, Stop date: 08/12/17 12:58:00 CDTNotes: Do not exceed 4 gm/day. (Same as: Tylenol) No Longer Active 07/13/2017 [facility] Ondansetron 4 mg, 2 mL, Route: IVP, Drug form: INJ, Q8H, Dosing Weight 112.6, kg, PRN Nausea & Vomiting, Start date: 07/13/17 12:59:00 QUANTITATIVE CONSULTANT, Duration: 30 day, Stop date: 08/12/17 12:58:00 CDTNotes: (Same as: Zofran) MEDICATION WASTE Product Size: 4 mg Product Wasted: ___ mg No Longer Active 07/13/2017 [facility] Amicar (ANES) Route: IV, Drug form: INJ, ONCE, Stop date: 07/13/17 12:39:00 QUANTITATIVE CONSULTANT Inactive 07/13/2017 [facility] heparin (ANES) 1000 unit Route: IV, Drug form: INJ, Start date: 07/13/17 11:15:00 QUANTITATIVE CONSULTANT, Stop date: 07/13/17 12:15:00 QUANTITATIVE CONSULTANT Inactive 07/13/2017 [facility] Amicar (ANES) 5000 mg + Route: IV, Drug form: INJ, Dosing Weight 112.6, kg, Start date: 07/13/17 10:40:00 QUANTITATIVE CONSULTANT, Stop date: 07/13/17 11:40:00 QUANTITATIVE CONSULTANT Inactive 07/13/2017 [facility] Amidate (ANES) Route: IV, Drug form: INJ, ONCE, Stop date: 07/13/17 10:19:00 QUANTITATIVE CONSULTANT Inactive 07/13/2017 [facility] midazolam (ANES) Route: IV, Drug form: SOLN, ONCE, Stop date: 07/13/17 10:19:00 QUANTITATIVE CONSULTANT Inactive 07/13/2017 [facility] cefepime (ANES) 1000 mg Route: IV, Drug form: INJ, Start date: 07/13/17 10:15:00 QUANTITATIVE CONSULTANT, Stop date: 07/13/17 11:15:00 QUANTITATIVE CONSULTANT Inactive 07/13/2017 [facility] vancomycin (ANES) 1000 mg Route: IV, Drug form: INJ, Start date: 07/13/17 10:15:00 QUANTITATIVE CONSULTANT, Stop date: 07/13/17 11:15:00 QUANTITATIVE CONSULTANT Inactive 07/13/2017 [facility] ePHEDrine (ANES) Route: IV, Drug form: INJ, ONCE, Stop date: 07/13/17 9:59:00 QUANTITATIVE CONSULTANT Inactive 07/13/2017 [facility] propofol (ANES) Route: IV, Drug form: INJ, ONCE, Stop date: 07/13/17 9:39:00 QUANTITATIVE CONSULTANT Inactive 07/13/2017 [facility] fentaNYL (ANES) Route: IV, Drug form: INJ, ONCE, Stop date: 07/13/17 9:39:00 QUANTITATIVE CONSULTANT Inactive 07/13/2017 [facility] lidocaine (ANES) Route: IV, Drug form: INJ, ONCE, Stop date: 07/13/17 9:39:00 QUANTITATIVE CONSULTANT Inactive 07/13/2017 [facility] rocuronium (ANES) Route: IV, Drug form: INJ, ONCE, Stop date: 07/13/17 9:39:00 QUANTITATIVE CONSULTANT Inactive 07/13/2017 [facility] nitroglycerin (ANES) 400 microgram Route: IV, Drug form: INJ, Start date: 07/13/17 9:36:00 QUANTITATIVE CONSULTANT, Stop date: 07/13/17 10:36:00 QUANTITATIVE CONSULTANT Inactive 07/13/2017 [facility] norepinephrine (ANES) 32 microgram Route: IV, Drug form: INJ, Start date: 07/13/17 9:34:00 QUANTITATIVE CONSULTANT, Stop date: 07/13/17 10:34:00 QUANTITATIVE CONSULTANT Inactive 07/13/2017 [facility] Sodium Chloride 0.9% IV (ANES) 1000 mL Route: IV, Total Volume: 1,000, Start date: 07/13/17 9:34:00 QUANTITATIVE CONSULTANT, Stop date: 07/13/17 10:34:00 QUANTITATIVE CONSULTANT Inactive 07/13/2017 [facility] Lactated Ringers Injection IV (ANES) 1000 mL Route: IV, Total Volume: 1,000, Start date: 07/13/17 8:44:00 QUANTITATIVE CONSULTANT, Stop date: 07/13/17 9:44:00 QUANTITATIVE CONSULTANT Inactive 07/13/2017 [facility] Insulin (Regular) additive 100 unit [0.1 unit/kg/hr] + NS 99 mL 99 mL, Rate: 11.26 ml/hr, Infuse over: 8.9 hr, Route: IV, Dosing Weight 112.6 kg, Total Volume: 100 mL, Start date: 07/13/17 6:00:00 QUANTITATIVE CONSULTANT, Duration: 30 day, Stop date: 08/12/17 5:59:00 CDT, 2.49, [id number]: (Same as: Humulin R and NovoLIN R) WASTE: F/P - Black; E - [employer] Trash Bin (Do not shake) Inactive 07/13/2017 [facility] Phenylephrine 50 mg, 5 mL, Rate: Titrate, Start Dose: 0.5 microgram/kg/min, Titration: 0.5 microgram/kg/min every 2 - 5 minutes, Goal(s): MAP >=65 mmHg, Max Dose: 5 microgram/kg/min, Route: IV, Dosing Weight 112.6 kg, Total Volume: 250, Start date: 07/13/17 6:00:0...Notes: (Same as: Giorgi- Synephrine) Inactive 07/13/2017 [facility] Lopressor 12.5 mg, 0.5 tab, Route: PO, Drug form: TAB, ONCE, Dosing Weight 112.6, kg, Start date: 07/13/17 6:00:00 QUANTITATIVE CONSULTANT, Stop date: 07/13/17 6:00:00 CSTNotes: (Same as: Lopressor) Inactive 07/13/2017 [facility] Epinephrine 4 mg, 4 mL, Rate: Titrate, Start Dose: 5 microgram/min, Titration: 0.5 microgram/min every 2-5 min, Goal(s): MAP >=65 mmHg, Max Dose: 35 mcg/min, Route: IV, Dosing Weight 112.6 kg, Total Volume: 250, Start date: 07/13/17 6:00:00 QUANTITATIVE CONSULTANT, Duration: 30 day...Notes: (Same as: Adrenalin) [employer] - Injectable drug used as inhalation treatment. MEDICATION WASTE Product Size: 1 mg Product Wasted: ___ mg Inactive 07/13/2017 [facility] Lipitor 10 mg, 1 tab, Route: PO, Drug form: TAB, Bedtime, Dosing Weight 112.6, kg, Start date: 07/12/17 21:00:00 QUANTITATIVE CONSULTANT, Duration: 30 day, Stop date: 08/10/17 21:00:00 CDTNotes: (Same As: Lipitor) No Longer Active 07/13/2017 [facility] Flexeril 10 mg, 1 tab, Route: PO, Drug form: TAB, TID, Dosing Weight 112.6, kg, PRN Spasm, Start date: 07/12/17 17:31:00 QUANTITATIVE CONSULTANT, Duration: 30 day, Stop date: 08/11/17 17:30:00 CDTNotes: (Same As: Flexeril) No Longer Active 07/12/2017 [facility] Aspirin 81 MG Enteric Coated Tablet 81 mg, 1 tab, Route: PO, Drug form: CHEWTAB, Daily, Dosing Weight 112.6, kg, Start date: 07/12/17 12:00:00 QUANTITATIVE CONSULTANT, Stop date: 08/11/17 9:00:00 CDTNotes: Take with food. No Longer Active 07/12/2017 [facility] Vancomycin 1,750 mg, Route: IVPB, ONCALL, Dosing Weight 112.6, kg, Start date: 07/12/17 12:00:00 QUANTITATIVE CONSULTANT, Duration: 1 doses or times, ABX Indication: Surgical ProphylaxisNotes: TIME CRITICAL MEDICATION (Same As: Vanco mohsen) Infusion rate 2001 mg: infuse over 2.5 hours For adult patients only: Round to nearest 250 mg per Medical Staff approval MEDICATION WASTE Product Size: 1000 mg Product Wasted: ___ mg No Longer Active 07/12/2017 [facility] Maxipime 1 gm, Route: IVP, Drug form: INJ, ONCALL, Dosing Weight 112.6, kg, (CrCl >/=50 ml/min), Priority: Routine, Start date: 07/12/17 12:00:00 QUANTITATIVE CONSULTANT, Duration: 1 doses or times, ABX Indication: Surgical ProphylaxisNotes: (Same As: Maxipime) MEDICATION WASTE Product Size: 1000 mg Product Wasted: ___ mg No Longer Active 07/12/2017 [facility] Sodium Chloride 0.9% (titrate) 250 mL 250 mL, Rate: To prime line and flush remaining blood products., Dosing Weight 112.6, kg, Route: IV, Total Volume: 250, Priority: Routine, Start Date: 07/12/17 11:23:00 QUANTITATIVE CONSULTANT, Duration: 1 doses or times, Stop date: 07/13/17 11:22:00 QUANTITATIVE CONSULTANT, Replace Every:... No Longer Active 07/12/2017 [facility] Heparin - one time bolus for ACS 5,000 unit, Route: SUB- Q, Q12H, Dosing Weight 112.6, kg, Start date: 07/12/17 9:00:00 QUANTITATIVE CONSULTANT, Duration: 30 day, Stop date: 08/10/17 21:00:00 CDT No Longer Active 07/12/2017 [facility] Acetaminophen 325 MG / Hydrocodone Bitartrate 5 MG Oral Tablet [[place] 5/325] 1 tab, Route: PO, Drug Form: TAB, Dosing Weight 112.6, kg, Q4H, PRN Pain Score 1-3, Start date: 07/11/17 23:36:00 QUANTITATIVE CONSULTANT, Duration: 30 day, Stop date: 08/10/17 23:35:00 CDTNotes: (Same as: [place] 325/5) Do not exceed 4gm/day of acetaminophen. No Longer Active 07/12/2017 [facility] Cyclobenzaprine hydrochloride 5 MG Oral Tablet [Flexeril] 5 mg=1 tab, PO, TID, # 21 tab, 0 Refill(s) No Longer Active 07/12/2017 [facility] Acetaminophen 325 MG / Hydrocodone Bitartrate 5 MG Oral Tablet [[place] 5/325] 1-2 tab, PO, Q4-6H, PRN Pain, # 30 tab, 0 Refill(s) No Longer Active 07/12/2017 [facility] Aspirin 81 mg, PO, Daily, 0 Refill(s) No Longer Active 07/12/2017 [facility] pantoprazole 40 MG Enteric Coated Tablet [Protonix] 40 mg=1 tab, PO, Daily, # 30 tab, 0 Refill(s) No Longer Active 07/12/2017 [facility] Amlodipine 10 MG / Benazepril hydrochloride 40 MG Oral Capsule [Lotrel 10/40] 1 cap, PO, Daily, # 30 cap, 0 Refill(s) No Longer Active 07/12/2017 [facility] *RN pls update HWA in adhoc* *RN pls update HWA in adhoc*, Reminder, Drug form: MISC, Route: MISC, Q30Min, 07/11/17 22:00:00 QUANTITATIVE CONSULTANT, Stop date: 07/12/17 2:00:00 QUANTITATIVE CONSULTANT Inactive 07/12/2017 [facility] heparin additive 25,000 unit [12 unit/kg/hr] + Premix Diluent Dextrose 5% 500 mL 500 mL, Rate: 23.97 ml/hr, Infuse over: 20.9 hr, Route: IV, Dosing Weight 99.88 kg, Total Volume: 500 mL, Start date: 07/11/17 21:50:00 QUANTITATIVE CONSULTANT, Duration: 30 day, Stop date: 08/10/17 21:49:00 CDT, 2.35, m2 No Longer Active 07/12/2017 [facility] Heparin 30 unit/kg Bolus (Heparin Dosing Weight) Route: IVP, PRN, 3,000 unit, 3 mL, Drug form: INJ, PRN, Heparin Protocol, Start date: 07/11/17 21:50:00 QUANTITATIVE CONSULTANT Stop date: 08/10/17 22:49:00 CDT, 30 day No Longer Active 07/12/2017 [facility] Heparin 60 unit/kg Bolus (Heparin Dosing Weight) Route: IVP, PRN, 6,000 unit, 6 mL, Drug form: INJ, PRN, Heparin Protocol, Start date: 07/11/17 21:50:00 QUANTITATIVE CONSULTANT Stop date: 08/10/17 22:49:00 CDT, 30 day No Longer Active 07/12/2017 [facility] Heparin - one time bolus for ACS 4,000 unit, Route: IVP, Drug form: INJ, ONCE, Dosing Weight 113.636, kg, Priority: STAT, Start date: 07/11/17 21:49:00 QUANTITATIVE CONSULTANT, Stop date: 07/11/17 21:49:00 QUANTITATIVE CONSULTANT Inactive 07/12/2017 [facility] Allergies, Adverse Reactions, Alerts Substance Category Reaction Severity Reaction type Status Date Reported Comments Source sulfa drugs Assertion Drug allergy Active [facility] Immunizations Immunization Date Given Site Status Last Updated Comments Source Results Order Name Results Value Reference Range Date Interpretation Comments Source Chest Pulmonary Embolism CTA Chest Pulmonary Embolism CTA CTA CHEST WITH CONTRAST INDICATION: Evaluate for PE, - chest pain, CT dose DLP 1023.42 COMPARISON: Chest radiograph 05/13/2018, CT chest 03/21/2018 TECHNIQUE: CTA of the chest was performed after administration of intravenous contrast. Coronal, sagittal, and 3-D reformatted images were utilized. DISCUSSION: No pulmonary emboli are identified. The heart is grossly normal in size. Coronary artery calcifications are noted. There are postoperative changes related to coronary artery bypass graft. The thoracic aorta is patent and normal in caliber, without evidence of dissection. The abdominal aorta is partially visualized. Note is made of extensive plaque in the proximal SMA, resulting in moderate to severe stenosis. No consolidation, pleural effusion, or pneumothorax are visible. There is scarring and pleural thickening at the lung apices. The trachea and major bronchi are clear. There are several calcified lymph nodes of the mediastinum. No suspicious lymphadenopathy is identified. Limited evaluation of the upper abdominal structures demonstrates bilateral renal cysts, measuring as large as 4.5 cm on the left side. There is diverticulosis of the visible large bowel, grossly without evidence of diverticulitis. BONES: The bones are diffusely demineralized. There are multiple chronic appearing compression deformities of the thoracolumbar vertebrae, some status post vertebroplasty. Sternotomy wires are in place. No acute bony abnormalities are seen. IMPRESSION: 1. No evidence of pulmonary embolism. No acute intrathoracic abnormalities are visualized. 2. 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 3. Bilateral renal cysts. 4. Diverticulosis, without evidence of diverticulitis of the visible upper large bowel. SL:16 05/13/2018 - - Read by: Latrell Sidhu MD Dictated Date/time: 05/14/18 00:12 Electronically Signed by: Latrell Sidhu MD 05/14/18 00:25 FINAL REPORT [facility] Chest 2 views DX Chest 2 views DX EXAM: Chest 2 views DX DATE: 05/13/2018 8:10 PM QUANTITATIVE CONSULTANT INDICATION: - Chest pain COMPARISON: 08/26/2017. IMPRESSION: Stable prominent cardiac silhouette and mediastinum. No definite failure. The lungs are emphysematous. No focal consolidation, significant pleural effusion or pneumothorax. SL: JNGUYEN- 05/13/2018 - - Read by: Zach Alamo MD Dictated Date/time: 05/13/18 21:26 Electronically Signed by: Zach Alamo MD 05/13/18 21:26 FINAL REPORT [facility] Abdomen/Pelvis w/wo IV contrast CT Abdomen/Pelvis w/wo IV contrast CT EXAM: CT ABDOMEN AND PELVIS WITHOUT AND WITH CONTRAST DATE: 04/14/2018 INDICATION: - R10.31 Right lower quadrant pain ADDITIONAL INFORMATION: None. COMPARISON: March 21, 2018,` CTA September 02, [address] scan June 23, 2010. TECHNIQUE: Volumetric CT acquisition of the abdomen and pelvis before and after the intravenous administration of contrast. Axial, coronal and sagittal reconstructions. Postcontrast phases: Venous and delayed. IV contrast: 100 cc Omnipaque 300 Enteric contrast: 900 cc water mix with Omnipaque DLP: 2957.49 mGy-cm FINDINGS: Lines, tubes and hardware: None. Lower thorax: Clear. Liver: Normal. Biliary tree: No intra- or extrahepatic biliary ductal dilation. Gallbladder: Removed Pancreas: Significant fatty atrophy noted. Spleen: Normal. Adrenals: Normal. Kidneys and ureters: Multiple cortical hypodensities are present bilaterally, unchanged from recent CT scan and are compatible with renal cysts. The largest is in the left renal cortex measuring 4.2 cm. The previously described hyperdense lesion in the posterior inferior right renal cortex measures approximately 5 mm and is much too small to characterize. No renal calculus is identified. Bladder: Circumferential urinary bladder wall thickening is noted. Reproductive organs: The prostate contains multiple calcifications which is nonspecific. Gastrointestinal tract: Small hiatal hernia is noted. Stomach is otherwise unremarkable. Small bowel loops are normal caliber throughout. Diverticulosis is seen of the colon but without evidence of diverticulitis Appendix: Normal. Peritoneum, mesentery and retroperitoneum: No free air, ascites or loculated fluid. Lymph nodes: Normal. Vasculature: Scattered atherosclerotic vascular calcifications involve the abdominal aorta. Mild mural thrombus is noted as well. Bones: Marked diffuse osseous demineralization with multilevel vertebral plasty cement is noted. Orthopedic hardware is present in the right sacrum. No acute abnormality is seen. Soft tissues: Normal. IMPRESSION: 1. No acute abnormality. 2. Circumferential urinary bladder wall thickening is unchanged dating back to 2010. Correlate with urinalysis but this can be seen with chronic cystitis, or bladder outlet obstruction. 3. Diverticulosis without evidence of diverticulitis 4. Multiple renal cysts noted. The previously described 5 mm hyperdense lesion in the right kidney is unchanged but is much too small to further characterize. Follow-up can be obtained. RECOMMENDATIONS: None. 04/14/2018 - - Read by: Halina Friedman MD Dictated Date/time: 04/14/18 13:42 Electronically Signed by: Halina Friedman MD 04/14/18 14:02 FINAL REPORT [facility] Renal Stone CT Renal Stone CT Clinical Indication: Right costovertebral angle tenderness. Comparison: CTA chest, abdomen, and pelvis, 09/02/2017. TECHNIQUE: Sequential trans-axial images were obtained with a multi-detector helical CT without administration of IV or oral contrast. Coronal and sagittal reconstructions were obtained. CT imaging performed at this location utilizes radiation dose optimization techniques which include one or more of the following: -Automated exposure control -Adjustment of the mA and/or kV according to patient size -Use of iterative reconstruction technique CT Radiation Dose DLP 1241 mGy-cm FINDINGS: LUNG BASES: Unremarkable. : There are several nonobstructing subcentimeter calculi in the right renal collecting system, measuring up to 4 mm (series 602B, image 80). There are no ureteral calculi or hydroureter. There is a 4.2 cm simple cyst in the left renal cortex. There is an additional 2.2 cm simple cyst in the left inferior renal cortex. There is a 1.9 cm simple cyst noted in the superior right renal cortex. Additional 1.4 cm simple cyst in the inferior right renal cortex. There is a 6 mm hyperdense lesion in the inferior right renal cortex with average internal attenuation of 65 Hounsfield units. There is bilateral nonspecific perinephric stranding. Circumferential urinary bladder wall thickening, measuring up to 8 mm. No evidence of a radiopaque bladder calculus. ABDOMINAL ORGANS: The noncontrast images of the liver, spleen, pancreas, gallbladder, and adrenals are unremarkable. GI: The stomach is unremarkable as is the small bowel by noncontrast CT assessment. The appendix is unremarkable. Sigmoid diverticulosis without evidence of diverticulitis. PERITONEUM AND RETROPERITONEUM: There is no abdominal or pelvic lymphadenopathy. There is no pneumoperitoneum or ascites. The retroperitoneal region appears unremarkable. The abdominal aorta shows no aneurysm. MSK: Diffuse osseous demineralization. Vertebroplasty cement is noted within the T11-L5 vertebral bodies. Increased extent of a compression deformity of T6, now with approximately 50% height loss. Orthopedic hardware is noted in the right sacrum. IMPRESSION: 1. Nonobstructing right nephrolithiasis. 2. Circumferential urinary bladder wall thickening, which can be seen in the setting of cystitis. 3. Multiple bilateral simple renal cysts and probable small hemorrhagic cyst of the right kidney. This could be further evaluated with renal ultrasound. 4. Sigmoid diverticulosis without evidence of diverticulitis. 5. Increased extent of a compression deformity of T6 compared to 09/02/2017, now with approximately 50% height loss. SL: YUNIOR 03/21/2018 - - Read by: Kymberly Colbert MD Dictated Date/time: 03/21/18 21:56 Electronically Signed by: Kymberly Colbert MD 03/21/18 22:06 FINAL REPORT [facility] Chest Pulmonary Embolism CTA Chest Pulmonary Embolism CTA Clinical Indication: Right thoracic and costovertebral angle tenderness. Comparison: CTA chest, abdomen, pelvis, 09/02/2017. TECHNIQUE: Sequential trans-axial images were obtained with a multi-detector helical CT after iodinated contrast administration. Coronal and sagittal reconstructions were obtained. 3-D MIP reconstructions performed. 100 cc of omnipaque contrast material was used for the exam. CT imaging performed at this location utilizes radiation dose optimization techniques which include one or more of the following: -Automated exposure control -Adjustment of the mA and/or kV according to patient size -Use of iterative reconstruction technique CT Radiation Dose DLP 899 mGy-cm FINDINGS: LUNG PARENCHYMA AND PLEURA: There is a 6 mm calcified granuloma in the right apex. Stable left apical pleural-parenchymal scarring. Scattered foci of atelectasis and/or scarring. There is no interstitial lung disease. There are no pleural effusions. There is no pneumothorax. AIRWAY: The central airway is normal. MEDIASTINUM: Stable nonspecific 1.4 cm short axis right paratracheal lymph node. Calcified mediastinal lymph nodes are noted. No hilar lymphadenopathy. HEART: The cardiac chambers appear unremarkable. Atherosclerotic calcifications of coronary arteries. Postsurgical changes of prior coronary artery bypass graft. There is no pericardial effusion. VASCULAR STRUCTURES: There are no proximal segmental or larger pulmonary emboli noted. The main, right and left pulmonary arteries are normal. The great vessels are unremarkable. There are atherosclerotic calcifications of the thoracic aorta. There is no thoracic aortic dissection or aneurysm. The superior vena cava is unremarkable. OSSEOUS STRUCTURES: Median sternotomy wires appear intact. Diffuse osseous demineralization. Vertebroplasty cement is noted T11, T12, 1, and L2. Increased extent of a compression deformity of T6, now with approximately 50% height loss. VISUALIZED UPPER ABDOMEN: Cholecystectomy. There is a 4.2 cm simple cyst in the left renal cortex. Additional 1.9 cm simple cyst noted in the right renal cortex. IMPRESSION: 1. No evidence of pulmonary arterial thromboembolism. 2. Increased extent of a compression deformity of T6, now with approximately 50% height loss. SL: [id number] 03/21/2018 - - Read by: Kymberly Colbert MD Dictated Date/time: 03/21/18 21:42 Electronically Signed by: Kymberly Colbert MD 03/21/18 21:57 FINAL REPORT [facility] CHEM PANEL Magnesium Lvl 1.9 mg/dL 1.8 - 2.4 09/04/2017 [facility] CHEM PANEL Phosphorus 3.5 mg/dL 2.5 - 4.5 09/04/2017 [facility] ELECTROLYTES AGAP 11.0 meq/L 10.0 - 20.0 09/04/2017 [facility] ELECTROLYTES Calcium Lvl 8.4 mg/dL 8.5 - 10.5 09/04/2017 [facility] ELECTROLYTES CO2 24 meq/L 24 - 32 09/04/2017 [facility] ELECTROLYTES Chloride Lvl 109 meq/L 95 - 109 09/04/2017 [facility] ELECTROLYTES Potassium Lvl 4.0 meq/L 3.5 - 5.1 09/04/2017 [facility] ELECTROLYTES eGFR 62 mL/min/1.73m2 09/04/2017 Result Comment: The eGFR is calculated using the CKD-EPI formula. In most young, healthy individuals the eGFR will be >90 mL/min/1.73m2. The eGFR declines with age. An eGFR of 60-89 may be normal in some populations, particularly the elderly, for whom the CKD-EPI formula has not been extensively validated. Use of the eGFR is not recommended in the following populations: Individuals with unstable creatinine concentrations, including patients and those with serious co-morbid conditions. Patients with extremes in muscle mass or diet. The data above are obtained from the National Kidney Disease Education Program (NKDEP) which additionally recommends that when the eGFR is used in patients with extremes of body mass index for purposes of drug dosing, the eGFR should be multiplied by the estimated BMI. [facility] ELECTROLYTES Sodium Lvl 140 meq/L 135 - 145 09/04/2017 [facility] ELECTROLYTES Creatinine Lvl 1.18 mg/dL 0.50 - 1.40 09/04/2017 [facility] ELECTROLYTES BUN 14 mg/dL 7 - 22 09/04/2017 [facility] ELECTROLYTES Glucose Lvl 85 mg/dL 70 - 99 09/04/2017 [facility] RBC 3.25 M/CMM 4.70 - 6.10 09/04/2017 [facility] WBC 8.1 K/CMM 3.7 - 10.4 09/04/2017 [facility] Hct 29.7 % 42.0 - 54.0 09/04/2017 [facility] Hgb 9.9 g/dL 14.0 - 18.0 09/04/2017 [facility] MPV 8.8 fL 7.4 - 10.4 09/04/2017 [facility] RDW 16.7 % 11.5 - 14.5 09/04/2017 [facility] MCH 30.4 pg 27.0 - 31.0 09/04/2017 [facility] Platelet 225 K/CMM 133 - 450 09/04/2017 [facility] MCHC 33.2 g/dL 32.0 - 36.0 09/04/2017 [facility] MCV 91.5 fL 80.0 - 94.0 09/04/2017 [facility] Monocytes # 0.6 K/CMM 0.0 - 0.8 09/04/2017 [facility] Eosinophils # 0.1 K/CMM 0.0 - 0.5 09/04/2017 [facility] Basophils # 0.1 K/CMM 0.0 - 0.2 09/04/2017 [facility] Lymphocytes 12.1 % 20.0 - 40.0 09/04/2017 [facility] Lymphocytes # 1.0 K/CMM 1.0 - 5.5 09/04/2017 [facility] Eosinophils 1.8 % 0.0 - 4.0 09/04/2017 [facility] Segs-Bands # 6.3 K/CMM 1.5 - 8.1 09/04/2017 [facility] Monocytes 7.9 % 2.0 - 12.0 09/04/2017 [facility] HEMATOLOGY Basophils 0.7 % 0.0 - 1.0 09/04/2017 [facility] HEMATOLOGY Segs 77.5 % 45.0 - 75.0 09/04/2017 [facility] Prealbumin 17.6 mg/dL 18.0 - 45.0 09/04/2017 [facility] CHEM PANEL eGFR 56 mL/min/1.73m2 09/03/2017 Result Comment: The eGFR is calculated using the CKD-EPI formula. In most young, healthy individuals the eGFR will be >90 mL/min/1.73m2. The eGFR declines with age. An eGFR of 60-89 may be normal in some populations, particularly the elderly, for whom the CKD-EPI formula has not been extensively validated. Use of the eGFR is not recommended in the following populations: Individuals with unstable creatinine concentrations, including patients and those with serious co-morbid conditions. Patients with extremes in muscle mass or diet. The data above are obtained from the National Kidney Disease Education Program (NKDEP) which additionally recommends that when the eGFR is used in patients with extremes of body mass index for purposes of drug dosing, the eGFR should be multiplied by the estimated BMI. [facility] CHEM PANEL AGAP 10.4 meq/L 10.0 - 20.0 09/03/2017 [facility] CHEM PANEL Calcium Lvl 8.6 mg/dL 8.5 - 10.5 09/03/2017 [facility] CHEM PANEL Potassium Lvl 4.4 meq/L 3.5 - 5.1 09/03/2017 [facility] CHEM PANEL Chloride Lvl 109 meq/L 95 - 109 09/03/2017 [facility] CHEM PANEL CO2 26 meq/L 24 - 32 09/03/2017 [facility] CHEM PANEL Glucose Lvl 83 mg/dL 70 - 99 09/03/2017 [facility] CHEM PANEL Creatinine Lvl 1.28 mg/dL 0.50 - 1.40 09/03/2017 [facility] CHEM PANEL BUN 17 mg/dL 7 - 22 09/03/2017 [facility] CHEM PANEL Sodium Lvl 141 meq/L 135 - 145 09/03/2017 [facility] CHEM PANEL eGFR 45 mL/min/1.73m2 09/03/2017 Result Comment: The eGFR is calculated using the CKD-EPI formula. In most young, healthy individuals the eGFR will be >90 mL/min/1.73m2. The eGFR declines with age. An eGFR of 60-89 may be normal in some populations, particularly the elderly, for whom the CKD-EPI formula has not been extensively validated. Use of the eGFR is not recommended in the following populations: Individuals with unstable creatinine concentrations, including patients and those with serious co-morbid conditions. Patients with extremes in muscle mass or diet. The data above are obtained from the National Kidney Disease Education Program (NKDEP) which additionally recommends that when the eGFR is used in patients with extremes of body mass index for purposes of drug dosing, the eGFR should be multiplied by the estimated BMI. [facility] CHEM PANEL Glucose Lvl 132 mg/dL 70 - 99 09/03/2017 [facility] CHEM PANEL BUN 18 mg/dL 7 - 22 09/03/2017 [facility] CHEM PANEL Creatinine Lvl 1.53 mg/dL 0.50 - 1.40 09/03/2017 [facility] CHEM PANEL Potassium Lvl 6.1 meq/L 3.5 - 5.1 09/03/2017 [facility] CHEM PANEL Sodium Lvl 136 meq/L 135 - 145 09/03/2017 [facility] CHEM PANEL Chloride Lvl 106 meq/L 95 - 109 09/03/2017 [facility] CHEM PANEL CO2 24 meq/L 24 - 32 09/03/2017 [facility] CHEM PANEL AGAP 12.1 meq/L 10.0 - 20.0 09/03/2017 [facility] CHEM PANEL Calcium Lvl 8.4 mg/dL 8.5 - 10.5 09/03/2017 [facility] CHEM PANEL Procalcitonin Lvl 0.10 ng/mL 0.00 - 0.10 09/03/2017 [facility] Hgb 9.7 g/dL 14.0 - 18.0 09/03/2017 [facility] RBC 3.23 M/CMM 4.70 - 6.10 09/03/2017 [facility] WBC 5.1 K/CMM 3.7 - 10.4 09/03/2017 [facility] Platelet 225 K/CMM 133 - 450 09/03/2017 [facility] MPV 8.7 fL 7.4 - 10.4 09/03/2017 [facility] MCHC 32.9 g/dL 32.0 - 36.0 09/03/2017 [facility] Hct 29.5 % 42.0 - 54.0 09/03/2017 [facility] RDW 16.9 % 11.5 - 14.5 09/03/2017 [facility] HEMATOLOGY MCH 30.0 pg 27.0 - 31.0 09/03/2017 [facility] HEMATOLOGY MCV 91.3 fL 80.0 - 94.0 09/03/2017 [facility] URINE AND STOOL UA Color Genesis 09/02/2017 [facility] URINE AND STOOL UA WBC 4 /HPF 0 - 5 09/02/2017 [facility] URINE AND STOOL UA RBC 3 /HPF 0 - 2 09/02/2017 [facility] URINE AND STOOL UA Hyal Cast 36 /LPF 0 - 2 09/02/2017 [facility] URINE AND STOOL UA Mucus Many /LPF None Seen /LPF 09/02/2017 [facility] URINE AND STOOL UA Bili Negative *NA* (09/02/17 2:04 PM) Negative 09/02/2017 [facility] URINE AND STOOL UA Ketones Trace mg/dL Negative mg/dL 09/02/2017 [facility] URINE AND STOOL UA Spec Grav 1.026 <=1.030 09/02/2017 [facility] URINE AND STOOL UA Turbidity Slight *ABN* (09/02/17 2:04 PM) Clear 09/02/2017 [facility] URINE AND STOOL UA Blood Negative (09/02/17 2:04 PM) Negative 09/02/2017 [facility] URINE AND STOOL UA Nitrite Negative (09/02/17 2:04 PM) Negative 09/02/2017 [facility] URINE AND STOOL UA Urobilinogen 2.0 mg/dL 0.1 - 1.0 09/02/2017 [facility] URINE AND STOOL UA Leuk Est Negative (09/02/17 2:04 PM) Negative 09/02/2017 [facility] URINE AND STOOL UA Sq Epi Occasional /LPF Few /LPF 09/02/2017 [facility] URINE AND STOOL UA Glucose Negative mg/dL Negative mg/dL 09/02/2017 [facility] URINE AND STOOL UA Protein 30 mg/dL Negative mg/dL 09/02/2017 [facility] URINE AND STOOL UA pH 5.0 5.0 - 8.0 09/02/2017 [facility] CHEM PANEL Globulin 5.3 g/dL 2.7 - 4.2 09/02/2017 [facility] CHEM PANEL A/G Ratio 0.6 0.7 - 1.6 09/02/2017 [facility] CHEM PANEL B/C Ratio 11 6 - 25 09/02/2017 [facility] CHEM PANEL Bili Total 0.6 mg/dL 0.2 - 1.3 09/02/2017 [facility] CHEM PANEL Alk Phos 163 unit/L 39 - 136 09/02/2017 [facility] CHEM PANEL Albumin Lvl 3.3 g/dL 3.5 - 5.0 09/02/2017 [facility] CHEM PANEL Total Protein 8.6 g/dL 6.4 - 8.4 09/02/2017 [facility] CHEM PANEL ALT 13 unit/L 0 - 65 09/02/2017 [facility] CHEM PANEL AST 19 unit/L 0 - 37 09/02/2017 [facility] HEMATOLOGY Lymphocytes 7.4 % 20.0 - 40.0 09/02/2017 [facility] HEMATOLOGY Segs 81.7 % 45.0 - 75.0 09/02/2017 [facility] Lymphocytes # 0.7 K/CMM 1.0 - 5.5 09/02/2017 [facility] Monocytes 6.8 % 2.0 - 12.0 09/02/2017 [facility] Monocytes # 0.7 K/CMM 0.0 - 0.8 09/02/2017 [facility] HEMATOLOGY Basophils # 0.3 K/CMM 0.0 - 0.2 09/02/2017 [facility] HEMATOLOGY Eosinophils # 0.1 K/CMM 0.0 - 0.5 09/02/2017 [facility] HEMATOLOGY Eosinophils 1.4 % 0.0 - 4.0 09/02/2017 [facility] HEMATOLOGY Segs-Bands # 7.8 K/CMM 1.5 - 8.1 09/02/2017 [facility] Basophils 2.7 % 0.0 - 1.0 09/02/2017 [facility] Platelet 316 K/CMM 133 - 450 09/02/2017 [facility] MPV 8.6 fL 7.4 - 10.4 09/02/2017 [facility] RDW 16.9 % 11.5 - 14.5 09/02/2017 [facility] Hct 36.8 % 42.0 - 54.0 09/02/2017 [facility] MCH 30.1 pg 27.0 - 31.0 09/02/2017 [facility] MCHC 33.1 g/dL 32.0 - 36.0 09/02/2017 [facility] Hgb 12.2 g/dL 14.0 - 18.0 09/02/2017 [facility] MCV 91.0 fL 80.0 - 94.0 09/02/2017 [facility] HEMATOLOGY WBC 9.6 K/CMM 3.7 - 10.4 09/02/2017 [facility] HEMATOLOGY RBC 4.04 M/CMM 4.70 - 6.10 09/02/2017 [facility] Ext Lower Arterial Doppler bilat US Ext Lower Arterial Doppler bilat US Clinical Indication: - diminished pulses, cool to touch Comparison: None TECHNIQUE: Bilateral lower extremity arterial Doppler evaluation without pressures was performed with georges scale, color scale and Doppler waveforms evaluation. FINDINGS: RIGHT LOWER EXTREMITY: There are normal triphasic waveforms and peak systolic velocities of the right common femoral artery, superficial femoral artery, popliteal artery, posterior tibial artery, and dorsalis pedis artery. LEFT LOWER EXTREMITY: There are normal triphasic waveforms and peak systolic velocities of the left common femoral artery, superficial femoral artery, popliteal artery, posterior tibial artery, and dorsalis pedis artery. There is no arterial Doppler evidence of significant peripheral arterial occlusive disease. If there is further concern recommend CTA or magnetic resonance angiography for evaluation. IMPRESSION: Normal triphasic waveforms throughout the bilateral lower extremities, no gross evidence for stenosis. SL: [id number] 09/02/2017 - - Read by: Uriel Hauser MD Dictated Date/time: 09/02/17 16:05 Electronically Signed by: Uriel Hauser MD 09/02/17 16:07 FINAL REPORT [facility] Chest/Abdominal Aorta with Runoff CTA Chest/Abdominal Aorta with Runoff CTA PROCEDURE: CT chest, abdomen, pelvis aortogram and lower extremity arterial runoff with IV contrast. Multiple reconstruction images. 3D reconstruction imaging performed. INDICATION: - back pain, diminished le pulses, legs cool to touch. Cold left leg TECHNIQUE: IV CONTRAST: 150 cc of Omnipaque-300 Axial post-contrast images were obtained from the thoracic inlet to the distal legs during the early arterial phase of enhancement. Multiplanar reconstruction images through the arterial system were performed. 3D reconstruction imaging was performed. Total CT radiation dose: HAX=512 mGy-cm COMPARISON: Arterial Doppler ultrasound from earlier the same day, chest x-ray 08/26/2017, CT abdomen/pelvis 06/23/2010. FINDINGS: CT AORTOGRAM: The thoracic aorta measures 3.8 cm at the ascending segment, 3.1 cm at the arch, and 3.4 cm at the descending segment. Mild tortuosity of the descending thoracic aorta is seen. The abdominal aorta measures 3.2 cm at the diaphragmatic hiatus, 2.4 cm at the level of the renal arteries, and 2.7 cm at the infrarenal segment. Scattered mixed soft and calcified plaque is seen without stenosis or occlusion. No intimal flap is noted. Soft plaque is present at the proximal SMA on series 850 3B, image 103 causing 1.6 cm length of severe stenosis. Appropriate contrast opacification is seen in the distal SMA branches. Normal variant direct takeoff of the proper hepatic and splenic arteries are noted from the aorta. Focal plaque causes severe stenosis at the proximal right internal iliac artery. The bilateral common iliac and external iliac arteries are fully patent. CT RIGHT LOWER EXTREMITY ARTERIOGRAM: Mild plaque is present at the right superficial femoral artery without significant stenosis or occlusion. The common femoral and popliteal arteries are fully patent. There is 1.9 cm segment of occlusion at the distal right tibioperoneal trunk with reconstitution of the posterior tibial and peroneal arteries. However, significant plaque burden is present in the posterior tibial and peroneal arteries with significant stenoses. The right anterior tibial artery contains mild plaque without significant stenosis or occlusion.. CT LEFT LOWER EXTREMITY ARTERIOGRAM: Mild plaque is present in the left common femoral, superficial femoral, and popliteal arteries without significant stenosis or occlusion. Severe stenosis is present at the proximal tibioperoneal trunk along with 4.1 cm along occlusion prior to bifurcation. Reconstitution of flow is seen to the left posterior tibial and peroneal arteries. There is mild to moderate plaque throughout the left posterior tibial artery with significant stenoses. Occlusion of the distal left peroneal artery is noted. Occlusion of the distal left anterior tibial and dorsalis pedis arteries are also seen. CT CHEST: LOWER NECK AND SOFT TISSUES: No enlarged lymph node is seen. MEDIASTINUM: Normal size of the heart is noted. No pericardial effusion is identified. The thoracic aorta is normal in caliber without intimal flap. No central pulmonary embolus is visualized. Right paratracheal lymphadenopathy is seen on series 7, image 51 measuring 1.4 cm short axis. No hilar or axillary lymphadenopathy is noted. PULMONARY PARENCHYMA: Bilateral lower lobe subsegmental atelectasis is seen along with left apical scarring. No focal consolidation or pleural effusion is seen. No pulmonary nodule or mass is apparent. No pleural effusion or pneumothorax is identified. CT ABDOMEN/PELVIS: LOWER CHEST: The visualized lung bases are clear. Normal size of the heart is noted. SOLID ORGANS: No focal hepatic lesion or intrahepatic biliary ductal dilatation is seen. Cholecystectomy clips are seen. The spleen, pancreas, and adrenal glands are normal in appearance. Both kidneys demonstrate normal corticomedullary phase of enhancement. Left kidney 4.3 cm simple cyst is seen. Several additional smaller cortical cysts are identified. There are several right renal cortical cysts measuring up to 2.2 cm. No urinary calculus, hydronephrosis, or mass is appreciated. BOWEL: The small bowel and colon are normal in caliber without wall thickening. No appendix or pericecal inflammation is seen. PERITONEUM: No free intraperitoneal fluid or air. No ventral wall defects. RETROPERITONEUM: No lymphadenopathy is seen. PELVIS: Mild wall thickening of the urinary bladder is noted.. Organs of reproduction are unremarkable. MUSCULOSKELETAL: Severe osteopenia is seen. Vertebral plasty cement is present at T11-L4. Fixation screws are present at the right sacroiliac joint. No acute osseous abnormality is seen. No destructive lytic or blastic osseous lesion is noted. IMPRESSION: 1. 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 2. No evidence for dissection in the thoracic or abdominal aorta. 3. Focal segment of severe stenosis in the proximal superior mesenteric artery. 4. Severe stenosis of the proximal right internal iliac artery. 5. Occlusions of the bilateral distal tibioperoneal trunks. Severe stenosis of the proximal left tibioperoneal trunk. Reconstitution of flow is seen in the proximal bilateral posterior tibial and peroneal arteries. 6. Occlusions of the distal left peroneal and dorsalis pedis arteries. 7. Significant plaque and severe stenoses in the right posterior tibial and peroneal arteries. 8. Right paratracheal lymphadenopathy measuring 1.4 cm short axis. None. Multiple bilateral simple renal cysts. 10. Mild thickening of the urinary bladder wall, may represent obstructive uropathy. SL: [id number] 09/02/2017 - - Read by: Ankur Lara MD Dictated Date/time: 09/02/17 16:27 Electronically Signed by: Ankur Lara MD 09/02/17 16:53 FINAL REPORT [facility] PANEL eGFR 49 mL/min/1.73m2 08/26/2017 Result Comment: The eGFR is calculated using the CKD-EPI formula. In most young, healthy individuals the eGFR will be >90 mL/min/1.73m2. The eGFR declines with age. An eGFR of 60-89 may be normal in some populations, particularly the elderly, for whom the CKD-EPI formula has not been extensively validated. Use of the eGFR is not recommended in the following populations: Individuals with unstable creatinine concentrations, including patients and those with serious co-morbid conditions. Patients with extremes in muscle mass or diet. The data above are obtained from the National Kidney Disease Education Program (NKDEP) which additionally recommends that when the eGFR is used in patients with extremes of body mass index for purposes of drug dosing, the eGFR should be multiplied by the estimated BMI. [facility] CHEM PANEL Calcium Lvl 9.2 mg/dL 8.5 - 10.5 08/26/2017 [facility] CHEM PANEL CO2 23 meq/L 24 - 32 08/26/2017 [facility] CHEM PANEL Chloride Lvl 107 meq/L 95 - 109 08/26/2017 [facility] CHEM PANEL Potassium Lvl 5.1 meq/L 3.5 - 5.1 08/26/2017 [facility] CHEM PANEL Sodium Lvl 138 meq/L 135 - 145 08/26/2017 [facility] CHEM PANEL Creatinine Lvl 1.44 mg/dL 0.50 - 1.40 08/26/2017 [facility] CHEM PANEL BUN 15 mg/dL 7 - 22 08/26/2017 [facility] CHEM PANEL Glucose Lvl 85 mg/dL 70 - 99 08/26/2017 [facility] CHEM PANEL AGAP 13.1 meq/L 10.0 - 20.0 08/26/2017 [facility] Hgb 11.9 g/dL 14.0 - 18.0 08/26/2017 [facility] Hct 36.2 % 42.0 - 54.0 08/26/2017 [facility] MCV 91.4 fL 80.0 - 94.0 08/26/2017 [facility] MCH 29.9 pg 27.0 - 31.0 08/26/2017 [facility] MCHC 32.7 g/dL 32.0 - 36.0 08/26/2017 [facility] RDW 16.7 % 11.5 - 14.5 08/26/2017 [facility] Platelet 345 K/CMM 133 - 450 08/26/2017 [facility] MPV 8.7 fL 7.4 - 10.4 08/26/2017 [facility] WBC 8.1 K/CMM 3.7 - 10.4 08/26/2017 [facility] RBC 3.96 M/CMM 4.70 - 6.10 08/26/2017 [facility] Lymphocytes 12.3 % 20.0 - 40.0 08/26/2017 [facility] HEMATOLOGY Segs 77.1 % 45.0 - 75.0 08/26/2017 [facility] Monocytes # 0.7 K/CMM 0.0 - 0.8 08/26/2017 [facility] HEMATOLOGY Eosinophils # 0.1 K/CMM 0.0 - 0.5 08/26/2017 [facility] Lymphocytes # 1.0 K/CMM 1.0 - 5.5 08/26/2017 [facility] Segs-Bands # 6.2 K/CMM 1.5 - 8.1 08/26/2017 [facility] Basophils 0.9 % 0.0 - 1.0 08/26/2017 [facility] Basophils # 0.1 K/CMM 0.0 - 0.2 08/26/2017 [facility] Eosinophils 1.7 % 0.0 - 4.0 08/26/2017 [facility] Monocytes 8.0 % 2.0 - 12.0 08/26/2017 [facility] Chest 2 views DX Chest 2 views DX Clinical Indication: - I25.10 Atherosclerotic heart disease of [place] coronary artery without angina pectoris Comparison: 08/05/2017 FINDINGS: PA and lateral views the chest are submitted for interpretation. The lungs are clear and there are no effusions. There are centrilobular emphysematous changes throughout both lungs. There is no visible pneumothorax. The cardiomediastinal contours are within normal limits. The patient is status post median sternotomy. There are no clinically significant osseous abnormalities noted. IMPRESSION: 1. No radiographic evidence of acute cardiopulmonary process. 2. Chronic obstructive pulmonary disease. SL: [id number] 08/26/2017 - - Read by: John Roberts MD Dictated Date/time: 08/26/17 10:40 Electronically Signed by: John Roberts MD 08/26/17 10:41 FINAL REPORT [facility] Spine lumbar 2 or 3 views DX Spine lumbar 2 or 3 views DX EXAM: XR LUMBAR SPINE CLINICAL INDICATION: 72 years year-old Male with Backache - Back pain, L5-S1 area COMPARISON: None FINDINGS: AP, lateral, and oblique views of the lumbar spine were obtained. Bones are demineralized. Five, non-rib bearing lumbar vertebral bodies are present. Evidence of prior vertebral augmentation from T12 to L5. Compression deformity noted involving L1, L2, L3, L4, and L5. Right sacroiliac fixation screws noted. No acute fracture is seen. Multilevel degenerative changes are noted including joint space narrowing and anterior osteophytes. Facet degeneration noted involving L4-5 and L5-S1. Aortic calcifications present. No significant soft tissue abnormality. IMPRESSION: 1. No definite acute fracture identified, though severe osseous demineralization limits evaluation. 2. Multilevel likely chronic compression deformities of the lumbar spine with evidence of prior vertebral augmentation. 3. Moderate degenerative changes. SL: [id number] 08/08/2017 - - Read by: Ana Villareal MD Dictated Date/time: 08/08/17 14:31 Electronically Signed by: Ana Villareal MD 08/08/17 14:54 FINAL REPORT [employer] CHEM PANEL A/G Ratio 0.6 0.7 - 1.6 08/08/2017 [facility] CHEM PANEL eGFR 60 mL/min/1.73m2 08/08/2017 Result Comment: The eGFR is calculated using the CKD-EPI formula. In most young, healthy individuals the eGFR will be >90 mL/min/1.73m2. The eGFR declines with age. An eGFR of 60-89 may be normal in some populations, particularly the elderly, for whom the CKD-EPI formula has not been extensively validated. Use of the eGFR is not recommended in the following populations: Individuals with unstable creatinine concentrations, including patients and those with serious co-morbid conditions. Patients with extremes in muscle mass or diet. The data above are obtained from the National Kidney Disease Education Program (NKDEP) which additionally recommends that when the eGFR is used in patients with extremes of body mass index for purposes of drug dosing, the eGFR should be multiplied by the estimated BMI. [employer] CHEM PANEL Albumin Lvl 2.8 g/dL 3.5 - 5.0 08/08/2017 [employer] CHEM PANEL Total Protein 7.6 g/dL 6.4 - 8.4 08/08/2017 [employer] CHEM PANEL Globulin 4.8 g/dL 2.7 - 4.2 08/08/2017 [employer] CHEM PANEL B/C Ratio 21 6 - 25 08/08/2017 [facility] CHEM PANEL Bili Total 0.8 mg/dL 0.2 - 1.3 08/08/2017 [facility] CHEM PANEL AGAP 10.2 meq/L 10.0 - 20.0 08/08/2017 [facility] CHEM PANEL ALT 16 unit/L 0 - 65 08/08/2017 [facility] CHEM PANEL Alk Phos 131 unit/L 39 - 136 08/08/2017 [facility] CHEM PANEL AST 36 unit/L 0 - 37 08/08/2017 [facility] CHEM PANEL BUN 26 mg/dL 7 - 22 08/08/2017 [facility] CHEM PANEL Glucose Lvl 85 mg/dL 70 - 99 08/08/2017 [facility] CHEM PANEL Calcium Lvl 9.0 mg/dL 8.5 - 10.5 08/08/2017 [facility] CHEM PANEL CO2 28 meq/L 24 - 32 08/08/2017 [facility] CHEM PANEL Creatinine Lvl 1.21 mg/dL 0.50 - 1.40 08/08/2017 [facility] CHEM PANEL Chloride Lvl 101 meq/L 95 - 109 08/08/2017 [facility] CHEM PANEL Potassium Lvl 4.2 meq/L 3.5 - 5.1 08/08/2017 [facility] CHEM PANEL Sodium Lvl 135 meq/L 135 - 145 08/08/2017 [facility] CHEM PANEL Magnesium Lvl 1.8 mg/dL 1.8 - 2.4 08/06/2017 [facility] CHEM PANEL eGFR 56 mL/min/1.73m2 08/06/2017 Result Comment: The eGFR is calculated using the CKD-EPI formula. In most young, healthy individuals the eGFR will be >90 mL/min/1.73m2. The eGFR declines with age. An eGFR of 60-89 may be normal in some populations, particularly the elderly, for whom the CKD-EPI formula has not been extensively validated. Use of the eGFR is not recommended in the following populations: Individuals with unstable creatinine concentrations, including patients and those with serious co-morbid conditions. Patients with extremes in muscle mass or diet. The data above are obtained from the National Kidney Disease Education Program (NKDEP) which additionally recommends that when the eGFR is used in patients with extremes of body mass index for purposes of drug dosing, the eGFR should be multiplied by the estimated BMI. [facility] CHEM PANEL AGAP 11.6 meq/L 10.0 - 20.0 08/06/2017 [facility] CHEM PANEL Glucose Lvl 83 mg/dL 70 - 99 08/06/2017 [facility] CHEM PANEL Creatinine Lvl 1.27 mg/dL 0.50 - 1.40 08/06/2017 [facility] CHEM PANEL BUN 29 mg/dL 7 - 22 08/06/2017 [facility] CHEM PANEL Potassium Lvl 3.6 meq/L 3.5 - 5.1 08/06/2017 [facility] CHEM PANEL Calcium Lvl 8.2 mg/dL 8.5 - 10.5 08/06/2017 [facility] CHEM PANEL CO2 28 meq/L 24 - 08/06/2017 [facility] CHEM PANEL Sodium Lvl 138 meq/L 135 - 145 08/06/2017 [facility] CHEM PANEL Chloride Lvl 102 meq/L 95 - 109 08/06/2017 [facility] Chest 2 views DX Chest 2 views DX Clinical Indication: - chest pain Comparison: 07/29/2017 FINDINGS: Single AP view of the chest is submitted for interpretation. There is mild pulmonary vascular congestion superimposed on emphysematous changes. There is mild bibasilar subsegmental atelectasis. There is no visible pneumothorax. Cardiomediastinal contours are stable. The patient is status post median sternotomy. No gross bony normalities are identified. IMPRESSION: 1. Mild pulmonary vascular congestion with mild bibasilar some subsegmental atelectasis. 2. Chronic obstructive pulmonary disease. SL: [id number] 08/05/2017 - - Read by: John Roberts MD Dictated Date/time: 08/05/17 14:41 Electronically Signed by: John Roberts MD 08/05/17 14:42 FINAL REPORT [facility] CHEM PANEL Magnesium Lvl 2.3 mg/dL 1.8 - 2.4 08/05/2017 [facility] CHEM PANEL Glucose Lvl 79 mg/dL 70 - 99 08/05/2017 [facility] CHEM PANEL Calcium Lvl 7.9 mg/dL 8.5 - 10.5 08/05/2017 [facility] CHEM PANEL AGAP 13.8 meq/L 10.0 - 20.0 08/05/2017 [facility] CHEM PANEL CO2 28 meq/L 24 - 32 08/05/2017 [facility] CHEM PANEL Potassium Lvl 3.8 meq/L 3.5 - 5.1 08/05/2017 [facility] CHEM PANEL Chloride Lvl 103 meq/L 95 - 109 08/05/2017 [facility] CHEM PANEL Creatinine Lvl 1.26 mg/dL 0.50 - 1.40 08/05/2017 [facility] CHEM PANEL Sodium Lvl 141 meq/L 135 - 145 08/05/2017 [facility] CHEM PANEL BUN 27 mg/dL 7 - 22 08/05/2017 [facility] CHEM PANEL eGFR 57 mL/min/1.73m2 08/05/2017 Result Comment: The eGFR is calculated using the CKD-EPI formula. In most young, healthy individuals the eGFR will be >90 mL/min/1.73m2. The eGFR declines with age. An eGFR of 60-89 may be normal in some populations, particularly the elderly, for whom the CKD-EPI formula has not been extensively validated. Use of the eGFR is not recommended in the following populations: Individuals with unstable creatinine concentrations, including patients and those with serious co-morbid conditions. Patients with extremes in muscle mass or diet. The data above are obtained from the National Kidney Disease Education Program (NKDEP) which additionally recommends that when the eGFR is used in patients with extremes of body mass index for purposes of drug dosing, the eGFR should be multiplied by the estimated BMI. [facility] CHEM PANEL Magnesium Lvl 1.6 mg/dL 1.8 - 2.4 08/04/2017 [facility] MPV 9.3 fL 7.4 - 10.4 08/02/2017 [facility] Hgb 9.7 g/dL 14.0 - 18.0 08/02/2017 [facility] Hct 29.5 % 42.0 - 54.0 08/02/2017 [facility] RBC 3.16 M/CMM 4.70 - 6.10 08/02/2017 [facility] WBC 9.0 K/CMM 3.7 - 10.4 08/02/2017 [facility] RDW 17.7 % 11.5 - 14.5 08/02/2017 [facility] Platelet 221 K/CMM 133 - 450 08/02/2017 [facility] MCV 93.1 fL 80.0 - 94.0 08/02/2017 [facility] MCHC 33.0 g/dL 32.0 - 36.0 08/02/2017 [facility] MCH 30.8 pg 27.0 - 31.0 08/02/2017 [facility] Eosinophils 1.0 % 0.0 - 4.0 08/02/2017 [facility] HEMATOLOGY Basophils 0.1 % 0.0 - 1.0 08/02/2017 [facility] HEMATOLOGY Segs-Bands # 6.7 K/CMM 1.5 - 8.1 08/02/2017 [facility] HEMATOLOGY Monocytes # 1.1 K/CMM 0.0 - 0.8 08/02/2017 [facility] HEMATOLOGY Lymphocytes # 1.1 K/CMM 1.0 - 5.5 08/02/2017 [facility] HEMATOLOGY Eosinophils # 0.1 K/CMM 0.0 - 0.5 08/02/2017 [facility] HEMATOLOGY Monocytes 11.9 % 2.0 - 12.0 08/02/2017 [facility] HEMATOLOGY Segs 74.3 % 45.0 - 75.0 08/02/2017 [facility] HEMATOLOGY Lymphocytes 12.7 % 20.0 - 40.0 08/02/2017 [facility] ANEMIA STUDY % [place] 22 % 12 - 57 07/30/2017 [facility] ANEMIA STUDY UIBC 193 ug/dl 110 - 370 07/30/2017 [facility] ANEMIA STUDY TIBC 249 ug/dl 228 - 428 07/30/2017 [facility] ANEMIA STUDY Iron 56 ug/dl 45 - 160 07/30/2017 [facility] ANEMIA STUDY Vitamin B12 Lvl 864 pg/mL 254 - 1320 07/30/2017 [facility] CHEM PANEL Total Protein 5.9 g/dL 6.4 - 8.4 07/30/2017 [facility] CHEM PANEL Albumin Lvl 2.3 g/dL 3.5 - 5.0 07/30/2017 [facility] HEMATOLOGY Segs 82.0 % 45.0 - 75.0 07/30/2017 [facility] HEMATOLOGY Lymphocytes 8.5 % 20.0 - 40.0 07/30/2017 [facility] HEMATOLOGY Monocytes # 0.6 K/CMM 0.0 - 0.8 07/30/2017 [facility] HEMATOLOGY Segs-Bands # 6.5 K/CMM 1.5 - 8.1 07/30/2017 [facility] HEMATOLOGY Eosinophils 1.0 % 0.0 - 4.0 07/30/2017 [facility] HEMATOLOGY Monocytes 8.1 % 2.0 - 12.0 07/30/2017 [facility] HEMATOLOGY Lymphocytes # 0.7 K/CMM 1.0 - 5.5 07/30/2017 [facility] HEMATOLOGY Basophils 0.4 % 0.0 - 1.0 07/30/2017 [facility] HEMATOLOGY Eosinophils # 0.1 K/CMM 0.0 - 0.5 07/30/2017 [facility] RBC 2.81 M/CMM 4.70 - 6.10 07/30/2017 [facility] Hct 26.0 % 42.0 - 54.0 07/30/2017 [facility] Hgb 8.6 g/dL 14.0 - 18.0 07/30/2017 [facility] MCH 30.7 pg 27.0 - 31.0 07/30/2017 [facility] MCV 92.3 fL 80.0 - 94.0 07/30/2017 [facility] MPV 9.8 fL 7.4 - 10.4 07/30/2017 [facility] Platelet 177 K/CMM 133 - 450 07/30/2017 [facility] RDW 16.3 % 11.5 - 14.5 07/30/2017 [facility] MCHC 33.2 g/dL 32.0 - 36.0 07/30/2017 [facility] WBC 7.9 K/CMM 3.7 - 10.4 07/30/2017 [facility] IMMUNOLOGY Prealbumin 11.9 mg/dL 18.0 - 45.0 07/30/2017 [facility] SPECIAL CHEMISTRY Hgb A1C 4.8 % <=5.6 % 07/30/2017 [facility] CHEM PANEL Phosphorus 2.7 mg/dL 2.5 - 4.5 07/29/2017 [facility] CHEM PANEL eGFR 76 mL/min/1.73m2 07/29/2017 Result Comment: The eGFR is calculated using the CKD-EPI formula. In most young, healthy individuals the eGFR will be >90 mL/min/1.73m2. The eGFR declines with age. An eGFR of 60-89 may be normal in some populations, particularly the elderly, for whom the CKD-EPI formula has not been extensively validated. Use of the eGFR is not recommended in the following populations: Individuals with unstable creatinine concentrations, including patients and those with serious co-morbid conditions. Patients with extremes in muscle mass or diet. The data above are obtained from the National Kidney Disease Education Program (NKDEP) which additionally recommends that when the eGFR is used in patients with extremes of body mass index for purposes of drug dosing, the eGFR should be multiplied by the estimated BMI. [facility] CHEM PANEL Calcium Lvl 7.0 mg/dL 8.5 - 10.5 07/29/2017 Result Comment: Critical Result(s) called to ghanshyam gavin at 07/29/2017 06:03 by hp. Read back OK [facility] CHEM PANEL AGAP 12.0 meq/L 10.0 - 20.0 07/29/2017 [facility] CHEM PANEL CO2 31 meq/L 24 - 32 07/29/2017 [facility] CHEM PANEL Chloride Lvl 103 meq/L 95 - 109 07/29/2017 [facility] CHEM PANEL Sodium Lvl 143 meq/L 135 - 145 07/29/2017 [facility] CHEM PANEL Potassium Lvl 3.0 meq/L 3.5 - 5.1 07/29/2017 Result Comment: Critical Result(s) called to mariphilip leslye at 07/29/2017 06:03 by hp. Read back OK. [facility] CHEM PANEL BUN 22 mg/dL 7 - 22 07/29/2017 [facility] CHEM PANEL Creatinine Lvl 0.99 mg/dL 0.50 - 1.40 07/29/2017 [facility] CHEM PANEL Glucose Lvl 80 mg/dL 70 - 99 07/29/2017 [facility] CHEM PANEL Magnesium Lvl 1.6 mg/dL 1.8 - 2.4 07/29/2017 [facility] HEMATOLOGY Lymphocytes 8.9 % 20.0 - 40.0 07/29/2017 [facility] HEMATOLOGY Segs 83.6 % 45.0 - 75.0 07/29/2017 [facility] HEMATOLOGY Lymphocytes # 0.6 K/CMM 1.0 - 5.5 07/29/2017 [facility] HEMATOLOGY Segs-Bands # 5.9 K/CMM 1.5 - 8.1 07/29/2017 [facility] HEMATOLOGY Basophils 0.3 % 0.0 - 1.0 07/29/2017 [facility] HEMATOLOGY Eosinophils 0.8 % 0.0 - 4.0 07/29/2017 [facility] HEMATOLOGY Monocytes 6.4 % 2.0 - 12.0 07/29/2017 [facility] HEMATOLOGY Eosinophils # 0.1 K/CMM 0.0 - 0.5 07/29/2017 [facility] HEMATOLOGY Monocytes # 0.4 K/CMM 0.0 - 0.8 07/29/2017 [facility] HEMATOLOGY MPV 9.5 fL 7.4 - 10.4 07/29/2017 [facility] MCH 30.7 pg 27.0 - 31.0 07/29/2017 [facility] HEMATOLOGY MCHC 33.3 g/dL 32.0 - 36.0 07/29/2017 [facility] RDW 16.3 % 11.5 - 14.5 07/29/2017 [facility] Platelet 165 K/CMM 133 - 450 07/29/2017 [facility] WBC 7.0 K/CMM 3.7 - 10.4 07/29/2017 [facility] RBC 2.70 M/CMM 4.70 - 6.10 07/29/2017 [facility] MCV 92.0 fL 80.0 - 94.0 07/29/2017 [facility] Hct 24.8 % 42.0 - 54.0 07/29/2017 [facility] Hgb 8.3 g/dL 14.0 - 18.0 07/29/2017 [facility] Chest 1view DX Chest 1view DX Patient Name: TEDDY LESTER : 1945; Age: 72 years y/o Male MR: [id number] Study: Chest 1view DX 07/29/2017 3:00 AM CDT Ordering Physician: Clinical Indication: post op CABG - post op CABG; Comparison: 07/28/2017 Chest one view Sternotomy. Stable cardiomegaly and mild pulmonary vascular congestive changes. Mild atelectasis persists the left lower lobe. No significant pleural fluid. No pneumothorax. IMPRESSION: Stable chest. SL: [id number] 07/29/2017 - - Read by: Remigio Varela MD Dictated Date/time: 07/29/17 07:36 Electronically Signed by: Remigio Varela MD 07/29/17 07:37 FINAL REPORT [facility] Brain wo contrast MRA Brain wo contrast MRA Name: TEDDY LESTER : 1945 SEX: Male Ordering Physician: Rhys Horan BRAIN WO CONTRAST MRA, NECK WO CONTRAST MRA : . CLINICAL INDICATION: - FUrther evaluation of [employer] stroke Comparison Examination: CT 07/22/2017 and duplex Doppler ultrasound 07/12/2017 NECK MRA WITHOUT CONTRAST COMMENT: MR angiography of the neck was performed utilizing 3-D ydrz-wa-gvaeiz technique with maximum image projection. 3-D postprocessing image reconstruction was performed at the work station. Exam is limited by motion artifact. Bilateral common carotid arteries are widely patent. Bilateral internal carotid arteries and carotid bulb regions are patent without significant stenosis by NASCET criteria which directly references the distal internal carotid diameter as the denominator for stenosis measurement. Bilateral external carotid arteries are patent. Bilateral vertebral arteries are widely patent without stenosis. The visualized intracranial segments of the vertebral arteries are widely patent. The source images show no evidence of carotid or vertebral artery dissection. CONCLUSION: NORMAL MR ANGIOGRAM OF THE NECK LIMITED BY MOTION ARTIFACT. BRAIN MRA WITHOUT CONTRAST COMMENT: MR angiography of the head was performed utilizing vrdk-od-[id number] technique with maximum image projection. 3-D postprocessing image reconstruction was performed at the work station. The intracranial portions of the internal carotid and vertebro-basilar arteries are patent but note is made of atherosclerotic plaque changes involving the lower half of the patent basilar artery with considerable vertebrobasilar tortuosity. The right posterior cerebral artery appears patent with poor visualization of the left posterior cerebral artery due to origin anatomic variation. The [place] demonstrates normal . Vascular anatomy. The anterior, middle, and posterior cerebral arteries are normal. CONCLUSION: MILD ATHEROSCLEROTIC PLAQUE CHANGES SUSPECTED AT THE MID LOWER BASILAR ARTERY WITH VERTEBROBASILAR TORTUOSITY IN AN OTHERWISE UNREMARKABLE INTRACRANIAL MR ANGIOGRAM. RIGHT POSTERIOR CEREBRAL ARTERY APPEARS INTACT. LEFT [employer]ODUCT INS[employer] SUPERVISOR IS INTACT BUT NOT WELL SEEN DUE TO ORIGIN. SL: [id number] 07/28/2017 - - Read by: Diogo Ma MD Dictated Date/time: 07/29/17 00:33 Electronically Signed by: Diogo Ma MD 07/29/17 00:51 FINAL REPORT [facility] Neck wo contrast MRA Neck wo contrast MRA Name: TEDDY LESTER : 1945 SEX: Male Ordering Physician: Rhys Horan BRAIN WO CONTRAST MRA, NECK WO CONTRAST MRA : . CLINICAL INDICATION: - FUrther evaluation of R [employer]PER[employer]OR stroke Comparison Examination: CT 07/22/2017 and duplex Doppler ultrasound 07/12/2017 NECK MRA WITHOUT CONTRAST COMMENT: MR angiography of the neck was performed utilizing 3-D zwud-gq-vjyggo technique with maximum image projection. 3-D postprocessing image reconstruction was performed at the work station. Exam is limited by motion artifact. Bilateral common carotid arteries are widely patent. Bilateral internal carotid arteries and carotid bulb regions are patent without significant stenosis by NASCET criteria which directly references the distal internal carotid diameter as the denominator for stenosis measurement. Bilateral external carotid arteries are patent. Bilateral vertebral arteries are widely patent without stenosis. The visualized intracranial segments of the vertebral arteries are widely patent. The source images show no evidence of carotid or vertebral artery dissection. CONCLUSION: NORMAL MR ANGIOGRAM OF THE NECK LIMITED BY MOTION ARTIFACT. BRAIN MRA WITHOUT CONTRAST COMMENT: MR angiography of the head was performed utilizing kqbw-cg-mhyxyg technique with maximum image projection. 3-D postprocessing image reconstruction was performed at the work station. The intracranial portions of the internal carotid and vertebro-basilar arteries are patent but note is made of atherosclerotic plaque changes involving the lower half of the patent basilar artery with considerable vertebrobasilar tortuosity. The right posterior cerebral artery appears patent with poor visualization of the left posterior cerebral artery due to origin anatomic variation. The [place] demonstrates normal . Vascular anatomy. The anterior, middle, and posterior cerebral arteries are normal. CONCLUSION: MILD ATHEROSCLEROTIC PLAQUE CHANGES SUSPECTED AT THE MID LOWER BASILAR ARTERY WITH VERTEBROBASILAR TORTUOSITY IN AN OTHERWISE UNREMARKABLE INTRACRANIAL MR ANGIOGRAM. RIGHT POSTERIOR CEREBRAL ARTERY APPEARS INTACT. LEFT PRODUCT INSPECTION SUPERVISOR IS INTACT BUT NOT WELL SEEN DUE TO ORIGIN. SL: [id number] 07/28/2017 - - Read by: Diogo Ma MD Dictated Date/time: 07/29/17 00:33 Electronically Signed by: Diogo Ma MD 07/29/17 00:51 FINAL REPORT [facility] ELECTROLYTES AGAP 12.2 meq/L 10.0 - 20.0 07/28/2017 [facility] ELECTROLYTES eGFR 79 mL/min/1.73m2 07/28/2017 Result Comment: The eGFR is calculated using the CKD-EPI formula. In most young, healthy individuals the eGFR will be >90 mL/min/1.73m2. The eGFR declines with age. An eGFR of 60-89 may be normal in some populations, particularly the elderly, for whom the CKD-EPI formula has not been extensively validated. Use of the eGFR is not recommended in the following populations: Individuals with unstable creatinine concentrations, including patients and those with serious co-morbid conditions. Patients with extremes in muscle mass or diet. The data above are obtained from the National Kidney Disease Education Program (NKDEP) which additionally recommends that when the eGFR is used in patients with extremes of body mass index for purposes of drug dosing, the eGFR should be multiplied by the estimated BMI. [facility] ELECTROLYTES Calcium Lvl 7.4 mg/dL 8.5 - 10.5 07/28/2017 [facility] ELECTROLYTES CO2 31 meq/L 24 - 32 07/28/2017 [facility] ELECTROLYTES Chloride Lvl 106 meq/L 95 - 109 07/28/2017 [facility] ELECTROLYTES BUN 28 mg/dL 7 - 22 07/28/2017 [facility] ELECTROLYTES Glucose Lvl 87 mg/dL 70 - 99 07/28/2017 [facility] ELECTROLYTES Creatinine Lvl 0.97 mg/dL 0.50 - 1.40 07/28/2017 [facility] ELECTROLYTES Potassium Lvl 3.2 meq/L 3.5 - 5.1 07/28/2017 [facility] ELECTROLYTES Sodium Lvl 146 meq/L 135 - 145 07/28/2017 [facility] RBC 2.93 M/CMM 4.70 - 6.10 07/28/2017 [facility] WBC 7.7 K/CMM 3.7 - 10.4 07/28/2017 [facility] Hgb 9.1 g/dL 14.0 - 18.0 07/28/2017 [facility] MCH 31.2 pg 27.0 - 31.0 07/28/2017 [facility] Platelet 164 K/CMM 133 - 450 07/28/2017 [facility] RDW 16.5 % 11.5 - 14.5 07/28/2017 [facility] MCV 93.1 fL 80.0 - 94.0 07/28/2017 [facility] Hct 27.3 % 42.0 - 54.0 07/28/2017 [facility] MCHC 33.5 g/dL 32.0 - 36.0 07/28/2017 [facility] MPV 9.3 fL 7.4 - 10.4 07/28/2017 [facility] Segs-Bands # 6.3 K/CMM 1.5 - 8.1 07/28/2017 [facility] Basophils 0.6 % 0.0 - 1.0 07/28/2017 [facility] Monocytes # 0.5 K/CMM 0.0 - 0.8 07/28/2017 [facility] Lymphocytes # 0.8 K/CMM 1.0 - 5.5 07/28/2017 [facility] Eosinophils # 0.1 K/CMM 0.0 - 0.5 07/28/2017 [facility] HEMATOLOGY Eosinophils 0.7 % 0.0 - 4.0 07/28/2017 [facility] HEMATOLOGY Monocytes 6.8 % 2.0 - 12.0 07/28/2017 [facility] HEMATOLOGY Lymphocytes 10.2 % 20.0 - 40.0 07/28/2017 [facility] HEMATOLOGY Segs 81.7 % 45.0 - 75.0 07/28/2017 [facility] Chest 1view DX Chest 1view DX Patient Name: TEDDY LESTER : 1945; Age: 72 years y/o Male MR: [id number] Study: Chest 1view DX 07/28/2017 3:00 AM CDT Ordering Physician: Kalee Corral Clinical Indication: post op CABG - post op CABG; Comparison: 07/27/2017 chest radiograph Changes of previous coronary artery bypass surgery. Stable enlargement of the cardiac silhouette and congestive/edematous changes in the lungs. Stable tortuous aorta. Minimal bibasilar subsegmental atelectasis. No confluent airspace opacities or large collections of pleural fluid. SL: [id number] 07/28/2017 - - Read by: Skyler Monique MD Dictated Date/time: 07/28/17 07:55 Electronically Signed by: Skyler Monique MD 07/28/17 07:58 FINAL REPORT [facility] ELECTROLYTES Potassium Lvl 3.3 meq/L 3.5 - 5.1 07/27/2017 [facility] CHEM PANEL Magnesium Lvl 2.1 mg/dL 1.8 - 2.4 07/27/2017 [facility] PARATHYROID PROFILE Ca Norm WB 1.04 mMol/L 1.05 - 1.25 07/27/2017 [facility] PARATHYROID PROFILE Ca Ion WB 0.97 mMol/L 1.05 - 1.25 07/27/2017 [facility] CHEM PANEL eGFR 61 mL/min/1.73m2 07/27/2017 Result Comment: The eGFR is calculated using the CKD-EPI formula. In most young, healthy individuals the eGFR will be >90 mL/min/1.73m2. The eGFR declines with age. An eGFR of 60-89 may be normal in some populations, particularly the elderly, for whom the CKD-EPI formula has not been extensively validated. Use of the eGFR is not recommended in the following populations: Individuals with unstable creatinine concentrations, including patients and those with serious co-morbid conditions. Patients with extremes in muscle mass or diet. The data above are obtained from the National Kidney Disease Education Program (NKDEP) which additionally recommends that when the eGFR is used in patients with extremes of body mass index for purposes of drug dosing, the eGFR should be multiplied by the estimated BMI. [facility] CHEM PANEL Total Protein 5.7 g/dL 6.4 - 8.4 07/27/2017 [facility] CHEM PANEL B/C Ratio 34 6 - 25 07/27/2017 [facility] CHEM PANEL Calcium Lvl 6.7 mg/dL 8.5 - 10.5 07/27/2017 Result Comment: Critical Result(s) called to Billy Dominguez at 07/27/2017 05:34 by OSIRIS. Read back OK. [facility] CHEM PANEL A/G Ratio 0.5 0.7 - 1.6 07/27/2017 [facility] CHEM PANEL Globulin 3.7 g/dL 2.7 - 4.2 07/27/2017 [facility] CHEM PANEL Albumin Lvl 2.0 g/dL 3.5 - 5.0 07/27/2017 [facility] CHEM PANEL Bili Total 1.1 mg/dL 0.2 - 1.3 07/27/2017 [facility] CHEM PANEL Alk Phos 87 unit/L 39 - 136 07/27/2017 [facility] CHEM PANEL ALT 54 unit/L 0 - 65 07/27/2017 [facility] CHEM PANEL AST 40 unit/L 0 - 37 07/27/2017 [facility] CHEM PANEL Sodium Lvl 150 meq/L 135 - 145 07/27/2017 [facility] CHEM PANEL Creatinine Lvl 1.19 mg/dL 0.50 - 1.40 07/27/2017 [facility] CHEM PANEL Glucose Lvl 88 mg/dL 70 - 99 07/27/2017 [facility] CHEM PANEL BUN 40 mg/dL 7 - 22 07/27/2017 [facility] CHEM PANEL AGAP 14.7 meq/L 10.0 - 20.0 07/27/2017 [facility] CHEM PANEL CO2 35 meq/L 24 - 32 07/27/2017 [facility] CHEM PANEL Chloride Lvl 103 meq/L 95 - 109 07/27/2017 [facility] CHEM PANEL Phosphorus 2.7 mg/dL 2.5 - 4.5 07/27/2017 [facility] CHEM PANEL Magnesium Lvl 1.8 mg/dL 1.8 - 2.4 07/27/2017 [facility] HEMATOLOGY Platelet 155 K/CMM 133 - 450 07/27/2017 [facility] Hct 25.6 % 42.0 - 54.0 07/27/2017 [facility] MCHC 33.7 g/dL 32.0 - 36.0 07/27/2017 [facility] MPV 9.3 fL 7.4 - 10.4 07/27/2017 [facility] RDW 16.2 % 11.5 - 14.5 07/27/2017 [facility] MCH 30.7 pg 27.0 - 31.0 07/27/2017 [facility] MCV 91.1 fL 80.0 - 94.0 07/27/2017 [facility] Hgb 8.6 g/dL 14.0 - 18.0 07/27/2017 [facility] RBC 2.81 M/CMM 4.70 - 6.10 07/27/2017 [facility] WBC 7.9 K/CMM 3.7 - 10.4 07/27/2017 [facility] Monocytes # 0.6 K/CMM 0.0 - 0.8 07/27/2017 [facility] Basophils 0.1 % 0.0 - 1.0 07/27/2017 [facility] Lymphocytes 7.0 % 20.0 - 40.0 07/27/2017 [facility] Eosinophils 0.3 % 0.0 - 4.0 07/27/2017 [facility] Lymphocytes # 0.6 K/CMM 1.0 - 5.5 07/27/2017 [facility] Segs-Bands # 6.8 K/CMM 1.5 - 8.1 07/27/2017 [facility] Monocytes 7.5 % 2.0 - 12.0 07/27/2017 [facility] Segs 85.1 % 45.0 - 75.0 07/27/2017 [facility] Chest 1view DX Chest 1view DX Chest 1view DX CLINICAL HISTORY:post op CABG - post op CABG COMPARISON: 07/14/2017, 07/25/2017 FINDINGS: Limited AP portable study. SUPPORT DEVICES: Interval removal of ET tube and NG tube and right IJ sheath. LUNGS: Lungs are reasonably well inflated. Mild atelectasis left lower lobe, unchanged. No consolidation or any significant effusion. No pneumothorax is evident. CARDIOVASCULAR: Mild stable cardiac silhouette enlargement. Poststernotomy changes. No pulmonary edema. MEDIASTINUM/LEANNE: Trachea is midline. No contour abnormality is noted. BONE AND SOFT TISSUES: No acute abnormality is noted. Multiple EKG leads and other wires project over the patient's chest. IMPRESSION: No significant change from previous study is noted. SL: [id number] 07/27/2017 - - Read by: Yaniv Arreola MD Dictated Date/time: 07/27/17 07:30 Electronically Signed by: Yaniv Arreola MD 07/27/17 07:34 FINAL REPORT [facility] HEMATOLOGY PTT 61.8 s 22.9 - 35.8 07/26/2017 [facility] CHEM PANEL Bili Total 0.9 mg/dL 0.2 - 1.3 07/26/2017 [facility] CHEM PANEL A/G Ratio 0.6 0.7 - 1.6 07/26/2017 [facility] CHEM PANEL Globulin 3.2 g/dL 2.7 - 4.2 07/26/2017 [facility] CHEM PANEL AST 43 unit/L 0 - 37 07/26/2017 [facility] CHEM PANEL ALT 123 unit/L 0 - 65 07/26/2017 [facility] CHEM PANEL Alk Phos 91 unit/L 39 - 136 07/26/2017 [facility] CHEM PANEL B/C Ratio 36 6 - 25 07/26/2017 [facility] CHEM PANEL Albumin Lvl 2.0 g/dL 3.5 - 5.0 07/26/2017 [facility] CHEM PANEL Total Protein 5.2 g/dL 6.4 - 8.4 07/26/2017 [facility] CHEM PANEL Phosphorus 3.2 mg/dL 2.5 - 4.5 07/26/2017 [facility] HEMATOLOGY RBC Morph Normal (07/26/17 4:13 AM) 07/26/2017 [facility] HEMATOLOGY Plt Morph Normal (07/26/17 4:13 AM) 07/26/2017 [facility] LIPIDS CHD Risk 3.21 4.00 - 7.30 07/26/2017 [facility] LIPIDS VLDL 20 07/26/2017 [facility] LIPIDS LDL (Calculated) 33 mg/dL <=99 mg/dL 07/26/2017 [facility] LIPIDS Trig 102 mg/dL <=149 mg/dL 07/26/2017 [facility] LIPIDS HDL 24 mg/dL >=61 mg/dL 07/26/2017 [facility] LIPIDS Chol 77 mg/dL <=199 mg/dL 07/26/2017 [facility] SPECIAL CHEMISTRY Hgb A1C 5.3 % <=5.6 % 07/26/2017 [facility] HEMATOLOGY PT 15.1 s 12.0 - 14.7 07/25/2017 [facility] HEMATOLOGY INR 1.18 0.85 - 1.17 07/25/2017 [facility] HEMATOLOGY PTT 73.5 s 22.9 - 35.8 07/25/2017 [facility] CHEM PANEL Bili Direct 0.2 mg/dL 0.0 - 0.3 07/25/2017 [facility] CHEM PANEL Total Protein 5.4 g/dL 6.4 - 8.4 07/25/2017 [facility] CHEM PANEL Alk Phos 101 unit/L 39 - 136 07/25/2017 [facility] CHEM PANEL AST 45 unit/L 0 - 37 07/25/2017 [facility] CHEM PANEL ALT 122 unit/L 0 - 65 07/25/2017 [facility] CHEM PANEL A/G Ratio 0.5 0.7 - 1.6 07/25/2017 [facility] CHEM PANEL Globulin 3.6 g/dL 2.7 - 4.2 07/25/2017 [facility] CHEM PANEL Albumin Lvl 1.8 g/dL 3.5 - 5.0 07/25/2017 [facility] CHEM PANEL Bili Total 0.4 mg/dL 0.2 - 1.3 07/25/2017 [facility] CHEM PANEL B/C Ratio 37 6 - 25 07/25/2017 [facility] Chest 1view DX Chest 1view DX Patient Name: TEDDY LESTER : 1945; Age: 72 years y/o Male MR: [id number] Study: Chest 1view DX 07/25/2017 3:00 AM CDT Ordering Physician: Clinical Indication: vent - vent; respiratory distress Comparison: 07/24/2017 Chest one view Sternotomy. Endotracheal tube satisfactory. Nasogastric tube is in the stomach. Right jugular introducer sheath in place. Slight improvement in generalized hypoventilation, lung volumes. Atelectatic changes persist however within the left lung base. The no significant pleural effusion or pneumothorax is otherwise evident. IMPRESSION: Persistent left lower lobe atelectasis. Tubes and lines satisfactory. No other significant new or acute findings. SL: [id number] 07/25/2017 - - Read by: Remigio Varela MD Dictated Date/time: 07/25/17 07:10 Electronically Signed by: Remigio Varela MD 07/25/17 07:17 FINAL REPORT [facility] HEMATOLOGY PTT 78.5 s 22.9 - 35.8 07/24/2017 [facility] CHEM PANEL Bili Indirect 0.3 mg/dL 0.0 - 1.0 07/24/2017 [facility] CHEM PANEL Bili Direct 0.3 mg/dL 0.0 - 0.3 07/24/2017 [facility] Chest 1view DX Chest 1view DX Portable chest: The endotracheal tube, nasogastric tube and right jugular sheath are in satisfactory position. There is no visible pneumothorax or significant effusion. Mild left basilar subsegmental atelectasis is noted. The lungs and pleural spaces are otherwise clear. The cardiac silhouette is mildly enlarged without significant pulmonary venous congestion. There is no other significant change. [id number] 07/24/2017 - - Read by: Esa Danielle MD Dictated Date/time: 07/24/17 08:36 Electronically Signed by: Esa Danielle MD 07/24/17 08:37 FINAL REPORT [facility] CHEM PANEL Bili Indirect 0.3 mg/dL 0.0 - 1.0 07/23/2017 [facility] CHEM PANEL Bili Direct 0.4 mg/dL 0.0 - 0.3 07/23/2017 [facility] Chest 1view DX Chest 1view DX Chest one view: Exam reason: - Verify tube Placement; Endotracheal tube tip is noted 6 cm above the gurjit. Interval improvement in aeration at the left lung base due to better inspiratory effort is noted albeit with persistent coarse interstitial and peribronchial opacities again noted at the lingula. Otherwise, allowing for differences in inspiratory effort, positioning and technique, there is no significant interval change when compared to the previous exam, 07/23/2017, 6:14 AM.Right IJ [place] introducer or catheter is again noted. NG tube tip is present below the level of the hemidiaphragms excluded from view by positioning and/or technique. : [id number] 07/23/2017 - - Read by: Jeffrey Huang MD Dictated Date/time: 07/23/17 09:56 Electronically Signed by: Jeffrey Huang MD 07/23/17 10:00 FINAL REPORT [facility] Chest 1view DX Chest 1view DX Portable chest: The endotracheal tube, nasogastric tube and right jugular sheath are in satisfactory position. The drains are difficult to visualize, but appear to remain in place. There is no visible pneumothorax or significant effusion. Mild left basilar subsegmental atelectasis is noted. The lungs and pleural spaces are otherwise clear. The cardiac silhouette is mildly enlarged without significant pulmonary venous congestion. There is no other significant change. [id number] 07/23/2017 - - Read by: Esa Danielle MD Dictated Date/time: 07/23/17 08:01 Electronically Signed by: Esa Danielle MD 07/23/17 08:03 FINAL REPORT [facility] HEMATOLOGY Plt Morph Normal (07/22/17 5:31 PM) 07/22/2017 [facility] HEMATOLOGY RBC Morph Normal (07/22/17 5:31 PM) 07/22/2017 [facility] Brain wo contrast CT Brain wo contrast CT Patient Name: TEDDY LESTER : 1945. Age: 72 years. Gender: Male. MR: [id number]. Location: [facility]. EXAM: Brain wo contrast CT. PROVIDED CLINICAL HISTORY: - s/p cabg TECHNIQUE: Contiguous axial images from the skull base to the vertex without intravenous contrast. Coronal and sagittal reformats. EXPOSURE: Total exam DLP is 1233 mGy-cm. COMPARISON: No relevant prior exams available at the time of interpretation. FINDINGS: BRAIN: -- Marked irregularity shaped hypoattenuation within approximately 5.5 x 3.4 x 2.5 cm focus spanning the posterior right temporal lobe and the right occipital lobe, consistent with acute/subacute infarction. -- No hemorrhagic conversion of the infarct. 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 -- No intracranial mass. Age-consistent brain parenchymal volume. Atherosclerotic calcifications in the vertebrobasilar and intracranial carotid arteries. VENTRICLES / CISTERNS / SHIFT: No hydrocephalus. No significant effacement of the basal cisterns or foramen magnum. No significant midline shift. BONES / SCALP: Edema along the occipital scalp. No acute depressed fracture of the calvarium or skull base. No aggressive bone lesions. SINUSES: Aerated paranasal sinus secretions, commonly acute or subacute sinusitis. Paranasal sinus mucosal thickening from mild chronic sinuitis. MASTOIDS: Opacities of soft tissue and fluid density within the bilateral mastoid air cells, consistent with mastoiditis, but requires clinical correlation to clarify acuity. IMPRESSION: 1. 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 2. No intracranial mass or hemorrhage. 3. Chronic microangiopathic ischemic gliosis. 4. Paranasal sinusitis, with acute or subacute and chronic components. 5. Bilateral mastoid disease. Correlate clinically to clarify acuity. On 07/22/2017 4:29 PM QUANTITATIVE CONSULTANT, I discussed the watkins findings by telephone with the patient's nurse, Nancy Kilgore RN, who confirmed read-back and agreed to relay the findings to the appropriate attending clinician. SL: ERIN 07/22/2017 - - Read by: Marcus Crowell MD Dictated Date/time: 07/22/17 15:58 Electronically Signed by: Marcus Crowell MD 07/22/17 16:36 FINAL REPORT [facility] ENDOCRINOLOGY Cortisol 14.7 ug/dl 07/22/2017 [facility] BLOOD BANK RESULTS ABO/Rh O POS 07/22/2017 [facility] BLOOD BANK RESULTS Antibody Scrn Negative (07/22/17 8:48 AM) 07/22/2017 [facility] BLOOD BANK RESULTS RBC product Product available (07/22/17 7:17 AM) 07/22/2017 [facility] CHEM PANEL Bili Indirect 0.3 mg/dL 0.0 - 1.0 07/22/2017 [facility] HEMATOLOGY Eosinophils # 0.1 K/CMM 0.0 - 0.5 07/22/2017 [facility] Chest 1view DX Chest 1view DX Portable chest radiograph 1 view INDICATION: Intubated COMPARISON: 07/21/2017 IMPRESSION: Lines and tubes are unchanged. Stable cardiomediastinal silhouette. There is persistent hazy right perihilar opacity, unchanged. Left lower lobe infiltrate is redemonstrated. Small left pleural effusion is suspected. No pneumothorax. 07/22/2017 - - Read by: Ana Lezama MD Dictated Date/time: 07/22/17 05:21 Electronically Signed by: Ana Lezama MD 07/22/17 05:24 FINAL REPORT [facility] HEMATOLOGY PT 15.1 s 12.0 - 14.7 07/21/2017 [facility] INR 1.18 0.85 - 1.17 07/21/2017 [facility] Chest 1view DX Chest 1view DX Patient Name: TEDDY LESTER : 1945; Age: 72 years y/o Male MR: [id number] * CHEST, portable, 1 view HISTORY: Status post median sternotomy on 07/13/2017, intubated. COMPARISON: Yesterday. Postoperative studies of 07/19/2017, 07/18/2017, and 07/17/2017 10 07/13/2015 and a preoperative study of 07/12/2017 were reviewed. TECHNIQUE: A portable frontal radiograph of the chest was obtained. IMPRESSION: 1. The endotracheal tube is in good position with its tip 2.7 cm above the gurjit. 2. No significant change from yesterday. There is vague hazy opacity over the right perihilar region which could represent an infiltrate or possibly fluid within the major fissure. There is moderate opacity left base which may represent atelectasis and/or infiltrate. There are no definite pleural effusions. 3. Mild cardiomegaly and mild pulmonary vascular congestion. 4. The nasogastric tube extends into the stomach. 5. Right IJ vascular sheath extends into the upper superior vena cava. 6. Multiple prior vertebral augmentation procedures with cement are noted in the lower thoracic and upper lumbar region. SL: [id number] 07/21/2017 - - Read by: Oliver Bryan MD Dictated Date/time: 07/21/17 07:39 Electronically Signed by: Olievr Bryan MD 07/21/17 07:42 FINAL REPORT [facility] Plt Morph Normal (07/20/17 5:32 AM) 07/20/2017 [facility] RBC Morph See Note (07/20/17 5:32 AM) 07/20/2017 [facility] Polychrom slight 07/20/2017 [facility] Chest 1view DX Chest 1view DX Clinical Indication: - post cabg. at bedside Comparison: July 19, 2017 FINDINGS: AP chest radiograph was obtained. MEDIASTINUM: The cardiac silhouette is enlarged. The aorta demonstrates atherosclerotic calcification. There is stable endotracheal and nasogastric tubes and sternal wires. There is a right IJ sheath which terminates in the superior vena cava. There is interval removal of a [place]-Mone catheter. LUNGS: Lung volumes are maintained. There is a persistent mediastinal chest tube. There is hazy opacity in the right perihilar region and right lung base. There is interval improvement in left perihilar airspace disease with persisting mild left basilar airspace disease. There is a left basilar chest tube. There is no evidence of pneumothorax. BONES: The visualized osseous structures are unremarkable. IMPRESSION: 1. Interval improvement in bilateral airspace disease with mild persisting bilateral lower lung airspace disease. Interval improvement in pulmonary edema. No evidence of pneumothorax or effusions. SL: [id number] 07/20/2017 - - Read by: Uriel Hauser MD Dictated Date/time: 07/20/17 09:22 Electronically Signed by: Uriel Hauser MD 07/20/17 09:24 FINAL REPORT [facility] TOXICOLOGY Vanco Lvl 15.8 ug/ml 07/19/2017 [facility] CHEM PANEL Procalcitonin Lvl 35.20 ng/mL 0.00 - 0.10 07/19/2017 Result Comment: Critical Result(s) called to Eloise Hanley at 07/19/2017 06:06 by BE. Read back OK. [facility] Chest 1view DX Chest 1view DX Clinical indication: line placement, s/p CABG Comparison: Chest 1 view 07/18/2017 TECHNIQUE: AP chest FINDINGS: Lines, tubes and hardware: [place]one catheter tip is in stable position, likely overlying the right lower lobe pulmonary artery. Endotracheal tube and enteric tube appear stable. Lungs and pleura: Lung volumes are low with vascular crowding. There is pulmonary venous congestion. Bibasilar airspace opacities are redemonstrated. No appreciable pneumothorax. Heart and mediastinum: The cardiomediastinal silhouette is enlarged, but stable. Bones: No acute bony abnormality is identified. IMPRESSION: 1. Bibasilar airspace opacities may represent layering pleural effusions, atelectasis, and/or pneumonia. 2. Stable lines and tubes. SL: [id number] 07/19/2017 - - Read by: Ilana Bazan MD Dictated Date/time: 07/19/17 07:24 Electronically Signed by: Ilana Bazan MD 07/19/17 07:28 FINAL REPORT [facility] HEMATOLOGY PT 17.7 s 12.0 - 14.7 07/18/2017 [facility] HEMATOLOGY INR 1.45 0.85 - 1.17 07/18/2017 [facility] TOXICOLOGY Vanco Lvl 21.5 ug/ml 07/18/2017 [facility] Hep C Ab Negative *NA* (07/18/17 10:25 AM) 07/18/2017 [facility] Hep A IgM Negative *NA* (07/18/17 10:25 AM) Negative 07/18/2017 [facility] Hep B Core IgM Negative *NA* (07/18/17 10:25 AM) Negative 07/18/2017 [facility] Hep Bs Ag Negative *NA* (07/18/17 10:25 AM) Negative 07/18/2017 [facility] BLOOD BANK RESULTS RBC product Product available 1 (07/18/17 9:13 AM) 07/18/2017 Result Comment: 07/18/2017 09:21 [id number] notified [facility] CHEM PANEL Lipase Lvl 101 unit/L 73 - 393 07/18/2017 [facility] Liver US Liver US Clinical Indication: - ELEVATED LFTS; Comparison: None TECHNIQUE: Grayscale and limited color sonographic evaluation of the right upper quadrant of the abdomen and gallbladder region was performed with standard technique. FINDINGS: LIVER: The visualized liver shows normal contour, and morphology with increased echogenicity with focal areas of sparing suggestive of hepatic steatosis. Liver is enlarged, measuring 20.2 cm. BILE DUCTS: The intrahepatic and extrahepatic bile ducts are not dilated with the common bile duct measuring 6 mm. The distal common bile duct is not well seen. GALLBLADDER: Prior cholecystectomy. PANCREAS: The visualized pancreas is grossly unremarkable. Portions of the pancreas are obscured by bowel gas. AORTA AND INFERIOR VENA CAVA: Visualized portions appear unremarkable. ASCITES: There is no right upper quadrant abdominal ascites. IMPRESSION: 1. Hepatomegaly with steatosis. 2. Prior cholecystectomy. SL: [id number] 07/18/2017 - - Read by: Ovidio Navarro MD Dictated Date/time: 07/18/17 13:37 Electronically Signed by: Ovidio Navarro MD 07/18/17 13:39 FINAL REPORT [facility] Chest 1view DX Chest 1view DX Portable chest: The endotracheal tube, nasogastric tube left pleural and mediastinal tubes remain in place. The [place]-Mone catheter tip is probably in a branch of the right lower lobe pulmonary artery. There is no visible pneumothorax. Mild bibasilar subsegmental atelectasis is again noted. There is mild left lower lobe infiltrate. The lungs and pleural spaces are otherwise clear. There is no other significant change from the previous day considering phase of respiration. SL [id number] 07/18/2017 - - Read by: Esa Danielle MD Dictated Date/time: 07/18/17 07:09 Electronically Signed by: Esa Danielle MD 07/18/17 07:12 FINAL REPORT [facility] PARATHYROID PROFILE Ca Ion WB 0.93 mMol/L 1.05 - 1.25 07/18/2017 [facility] PARATHYROID PROFILE Ca Norm WB 0.92 mMol/L 1.05 - 1.25 07/18/2017 [facility] CHEM PANEL Lactic Acid Lvl 1.8 mMol/L 0.5 - 2.2 07/17/2017 [facility] TOXICOLOGY Vanco Lvl 16.3 ug/ml 07/17/2017 [facility] CHEM PANEL Lactic Acid Lvl 4.6 mMol/L 0.5 - 2.2 07/17/2017 Result Comment: Critical Result(s) called to Tanvir Huang at 07/17/2017 12:09 byHA. Read back OK. [facility] CHEM PANEL Lipase Lvl 321 unit/L 73 - 393 07/17/2017 [facility] BLOOD BANK RESULTS Antibody Scrn Negative (07/17/17 7:52 AM) 07/17/2017 [facility] BLOOD [facility] RESULTS ABO/Rh O POS 07/17/2017 [facility] BLOOD [facility] RESULTS RBC product Product available 2 (07/17/17 7:37 AM) 07/17/2017 Result Comment: 07/17/2017 09:36 [id number] Called to Tanvir Huang at 07/17/2017 09:32 by Rick Murphy. [facility] HEMATOLOGY Pat Od Value 0.121 07/17/2017 [facility] HEMATOLOGY Pos CO Value 0.400 07/17/2017 [facility] Heparin Ab(TADEO) Negative 3 (07/16/17 11:22 PM) Negative 07/17/2017 Result Comment: This assay detects heparin antibodies of IgG isotype. Antibodies of other isotypes have been reported to cause heparin-induced thrombocytopenia. Therefore, if there is a strong clinical suspicion of HIT, additional study with a serotonin release assay is recommented. [facility] HEMATOLOGY Thrombin Time null 15.0 - 21.2 07/17/2017 Result Comment: Critical Result(s) called to Vinicius Huang at 07/17/2017 14:17 bysmt. Read back OK. [facility] HEMATOLOGY FSP >=20 ug/ml <5 ug/ml 07/17/2017 Result Comment: Critical Result(s) called to Patience Jewell at 07/17/2017 00:28 by BE. Read back OK. [facility] HEMATOLOGY Fibrinogen Lvl 821 mg/dL 230 - 510 07/17/2017 [facility] HEMATOLOGY D-Dimer 3.77 ug/mL FEU 07/17/2017 [facility] CHEM PANEL Lactic Acid Lvl 5.1 mMol/L 0.5 - 2.2 07/17/2017 Result Comment: Critical Result(s) called to Lauri Corcoran at 07/16/2017 23:48 by MJ. Read back OK. [facility] Chest 1view DX Chest 1view DX Chest 1view DX CLINICAL HISTORY:s/p CABG - s/p CABG COMPARISON: 07/16/2017 FINDINGS: Limited AP portable study. Support Devices: The various support lines and tubes are stable in position in comparison to previous study. Lungs: Left basilar/retrocardiac atelectasis persists. Small bibasilar effusions, unchanged. No pneumothorax. Cardiomediastinum: Stable cardiomediastinum. Bone and Soft Tissues: No acute bony abnormality is noted. Multiple EKG leads and other wires project over the patient's chest. IMPRESSION: No significant change from previous study is noted. SL: [id number] 07/17/2017 - - Read by: Yaniv Arreola MD Dictated Date/time: 07/17/17 08:18 Electronically Signed by: Yaniv Arreola MD 07/17/17 08:20 FINAL REPORT [facility] HEMATOLOGY Polychrom Slight 07/16/2017 [facility] HEMATOLOGY Atypical Lymphs 0.0 % <=0.0 % 07/16/2017 [facility] HEMATOLOGY Bands 7.0 % 0.0 - 11.0 07/16/2017 [facility] CARDIAC ENZYMES BNP 675 pg/mL <=100 pg/mL 07/16/2017 [facility] Ext Lower Venous Doppler Bilat US Ext Lower Venous Doppler Bilat US Patient Name: TEDDY LESTER : 1945; Age: 72 years y/o Male MR: [id number] Study: Ext Lower Venous Doppler Bilat US 07/16/2017 10:50 AM QUANTITATIVE CONSULTANT Ordering Physician: Clinical Indication: - DVT; Comparison: None Bilateral lower extremity venous Doppler ultrasound exam Normal flow and compressibility throughout the bilateral common femoral, superficial femoral, and popliteal venous segments. Distal augmentation is preserved. Incidentally noted is thrombus within the left greater saphenous vein (superficial venous thrombosis). IMPRESSION: No evidence for lower extremity DVT. Left greater saphenous vein (superficial venous) thrombosis. SL: [id number] 07/16/2017 - - Read by: Remigio Varela MD Dictated Date/time: 07/16/17 12:34 Electronically Signed by: Remigio Varela MD 07/16/17 12:36 FINAL REPORT [facility] Chest 1view DX Chest 1view DX Patient Name: TEDDY LESTER : 1945; Age: 72 years y/o Male MR: [id number] Study: Chest 1view DX 07/16/2017 9:57 AM QUANTITATIVE CONSULTANT Ordering Physician: Clinical Indication: - resp distress; Comparison: July 16, 2017 at 0409 1 view chest IMPRESSION: Nasogastric tube has been removed. Endotracheal tube satisfactory. [place]-Mone catheter is in satisfactory position. Uncertain of presence of residual chest tube. Improving bibasilar atelectasis. No new infiltrate, pleural effusion or pneumothorax. Stable mild cardiomegaly without overt CHF or pulmonary edema. SL: [id number] 07/16/2017 - - Read by: Remigio Varela MD Dictated Date/time: 07/16/17 10:42 Electronically Signed by: Remigio Varela MD 07/16/17 10:47 FINAL REPORT [facility] HEMATOLOGY Basophils # 0.1 K/CMM 0.0 - 0.2 07/16/2017 [facility] Chest 1view DX Chest 1view DX Patient Name: TEDDY LESTER : 1945; Age: 72 years y/o Male MR: [id number] Study: Chest 1view DX 07/16/2017 3:00 AM QUANTITATIVE CONSULTANT Ordering Physician: Clinical Indication: s/p CABG - s/p CABG; Comparison: July 15, 2017 Chest one view Endotracheal tube, [place]-Mone catheter, central line in satisfactory position. Chest tubes present. No pneumothorax or new pleural effusion. Mild increase in subsegmental atelectasis and pleural small fluid at the right lung base since previous study. Stable cardiomegaly. No evidence for new pulmonary edema or CHF. Of note, nasogastric tube is cold upon itself in the mid esophagus and should be repositioned. IMPRESSION: Developing small right pleural fluid and basilar atelectasis. Cardiopulmonary status appears otherwise radiographically stable. Malpositioned nasogastric tube coiled in the midesophagus. This was called to the nurse caring for the patient's time of dictation. SL: [id number] 07/16/2017 - - Read by: Remigio Varela MD Dictated Date/time: 07/16/17 07:15 Electronically Signed by: Remigio Varela MD 07/16/17 07:20 FINAL REPORT [facility] URINE AND STOOL UA Color Ltyellow 07/15/2017 [facility]INE [facility] STOOL UA Urobilinogen <=1.0 mg/dL 0.1 - 1.0 07/15/2017 [facility] URINE AND STOOL UA Sq Epi None Seen 07/15/2017 [facility]INE [facility] STOOL UA Glucose Negative mg/dL Negative mg/dL 07/15/2017 [facility]INE [facility] STOOL UA Protein Negative mg/dL Negative mg/dL 07/15/2017 [facility]INE [facility] STOOL UA pH 5.0 5.0 - 8.0 07/15/2017 [facility]INE [facility] STOOL UA Hyal Cast 13 /LPF 0 - 2 07/15/2017 [facility]INE [facility] STOOL UA RBC null 0 - 2 07/15/2017 [facility]INE [facility] STO[facility] UA WBC null 0 - 5 07/15/2017 [facility]INE [facility] STOOL UA Nitrite Negative (07/15/17 2:53 PM) Negative 07/15/2017 [facility] URINE AND STOOL UA Leuk Est Negative (07/15/17 2:53 PM) Negative 07/15/2017 [facility] URINE AND STOOL UA Blood Moderate *ABN* (07/15/17 2:53 PM) Negative 07/15/2017 [facility] URINE AND STOOL UA Bili Negative *NA* (07/15/17 2:53 PM) Negative 07/15/2017 [facility] URINE AND STOOL UA Ketones Negative mg/dL Negative mg/dL 07/15/2017 [facility] URINE AND STOOL UA Spec Grav 1.008 <=1.030 07/15/2017 [facility] URINE AND STOOL UA Turbidity Clear (07/15/17 2:53 PM) Clear 07/15/2017 [facility] S. aureus Not Detected (07/15/17 11:00 AM) Not Detected 07/15/2017 [facility] S. pyogenes Not Detected (07/15/17 11:00 AM) Not Detected 07/15/2017 [facility] S. agalactiae Not Detected (07/15/17 11:00 AM) Not Detected 07/15/2017 [facility] E. faecalis Not Detected (07/15/17 11:00 AM) Not Detected 07/15/2017 [facility] E. faecium Not Detected (07/15/17 11:00 AM) Not Detected 07/15/2017 [facility] S. epidermidis Not Detected (07/15/17 11:00 AM) Not Detected 07/15/2017 [facility] S. lugdunensis Not Detected (07/15/17 11:00 AM) Not Detected 07/15/2017 [facility] S. anginosus grp Not Detected (07/15/17 11:00 AM) Not Detected 07/15/2017 [facility] vanB Vancomycin Resistance Not Detected (07/15/17 11:00 AM) Not Detected 07/15/2017 [facility] Streptococcus spp. Detected *ABN* (07/15/17 11:00 AM) Not Detected 07/15/2017 [facility] Smiley Vancomycin Resistance Not Detected (07/15/17 11:00 AM) Not Detected 07/15/2017 [facility] Listeria spp. Not Detected (07/15/17 11:00 AM) Not Detected 07/15/2017 [facility] S. pneumoniae Not Detected (07/15/17 11:00 AM) Not Detected 07/15/2017 [facility] Staphylococcus spp. Not Detected (07/15/17 11:00 AM) Not Detected 07/15/2017 [facility] mecA Methicillin Resistance Not Detected (07/15/17 11:00 AM) Not Detected 07/15/2017 [facility] PARATHYROID PROFILE Ca Norm WB 1.03 mMol/L 1.05 - 1.25 07/15/2017 [facility] PARATHYROID PROFILE Ca Ion WB 1.02 mMol/L 1.05 - 1.25 07/15/2017 [facility] HEMATOLOGY Basophils # 0.1 K/CMM 0.0 - 0.2 07/15/2017 [facility] Chest 1view DX Chest 1view DX Portable chest: The endotracheal tube, nasogastric tube, left pleural and mediastinal tubes are in satisfactory position. The [place]-Mone catheter tip is in the main pulmonary artery. There is mild linear scarring or subsegmental atelectasis in the left midlung. There is no visible pneumothorax or significant effusion. The lungs and pleural spaces are otherwise clear. There is no significant change compared to the previous day. SL [id number] 07/15/2017 - - Read by: Esa Danielle MD Dictated Date/time: 07/15/17 08:41 Electronically Signed by: Esa Danielle MD 07/15/17 08:42 FINAL REPORT [facility] 1view DX Chest 1view DX Study: Frontal chest x-ray compared to prior study from the same day History: Respiratory failure. Comments: The patient is rotated. The cardiomediastinal silhouette is top normal in size. No pneumonia. Emphysematous changes in the lungs. Scarring in the left lower lobe. Endotracheal tube unchanged. Right IJ approach [place]-Mone catheter tip is in the main pulmonary artery Feeding tube tip is at the gastroduodenal junction. Recommend advancing No pleural effusions or pneumothorax. Impression: No acute cardiopulmonary disease. Feeding tube tip is at the gastroduodenal junction. Recommend advancing 07/14/2017 - - Read by: Ceci Mendoza MD Dictated Date/time: 07/14/17 19:38 Electronically Signed by: Ceci Mendoza MD 07/14/17 19:46 FINAL REPORT [facility] Abdomen 1 v for Placement DX Abdomen 1 v for Placement DX Patient Name: TEDDY LESTER : 1945; Age: 72 years Male MR: [id number] Study: Abdomen 1 v for Placement DX 07/14/2017 5:20 PM QUANTITATIVE CONSULTANT CLINICAL INDICATION: - ng tube placement COMPARISON: None FINDINGS: Dilated gastric air bubble. Nasogastric tube tip projects at the level of the GE junction. No significant small or large bowel dilatation. Degenerative changes of the thoracolumbar spine with multiple previous sites of vertebroplasty. IMPRESSION: Nasogastric tube tip projects at the level of the GE junction. Recommend advancement. Dilated gastric air bubble. SL: CLEMENTE 07/14/2017 - - Read by: Jordon Roberts MD Dictated Date/time: 07/14/17 21:21 Electronically Signed by: Jordon Roberts MD 07/14/17 21:23 FINAL REPORT [facility] HEMATOLOGY Basophils # 0.1 K/CMM 0.0 - 0.2 07/14/2017 [facility] Chest 1view DX Chest 1view DX Chest 1view DX CLINICAL HISTORY:s/p CABG - s/p CABG COMPARISON: 07/13/2017 FINDINGS: Limited AP portable study. Support Devices: The various support lines and tubes are stable in position in comparison to previous study. Lungs: Pulmonary underinflation and bibasilar atelectasis. No pneumothorax or any significant effusion. Cardiomediastinum: Stable cardiomediastinum. Poststernotomy changes. Bone and Soft Tissues: No acute bony abnormality is noted. Multiple EKG leads and other wires project over the patient's chest. IMPRESSION: Bibasilar atelectasis. No significant change from previous study is noted. SL: [id number] 07/14/2017 - - Read by: Yaniv Arreola MD Dictated Date/time: 07/14/17 09:19 Electronically Signed by: Yaniv Arreola MD 07/14/17 09:25 FINAL REPORT [facility] PTT 30.3 s 22.9 - 35.8 07/13/2017 [facility] PT 18.1 s 12.0 - 14.7 07/13/2017 [facility] INR 1.49 0.85 - 1.17 07/13/2017 [facility] 1view DX Chest 1view DX Clinical Indication: Respiratory distress - s/p cabg Comparison: 07/12/2017 FINDINGS: AP chest radiograph was obtained. MEDIASTINUM: The cardiac silhouette is enlarged. The aorta is unremarkable. There are sternal wires overlying the mediastinum. There is a [place]-Mone catheter which terminates in the proximal right pulmonary artery. There is an endotracheal tube is terminates at the level of the clavicles. LUNGS: Lung volumes are maintained. There are no focal infiltrates or effusions. There are no pneumothoraces noted. There is a left basilar chest tube with no evidence of pneumothorax and scarring in the left upper and mid to lower lung. BONES: The visualized osseous structures are unremarkable. IMPRESSION: 1. Changes of median sternotomy. 2. Left basilar chest tube with suggestion of scarring in the left upper and lower lung and no evidence of pneumothorax. Support devices as described above. SL: [id number] 07/13/2017 - - Read by: Uriel Hauser MD Dictated Date/time: 07/13/17 15:44 Electronically Signed by: Uriel Hauser MD 07/13/17 15:46 FINAL REPORT [facility] URINE AND STOOL UA Color Ltyellow 07/12/2017 [facility] URINE AND STOOL UA Bili Negative *NA* (07/12/17 2:43 PM) Negative 07/12/2017 [facility] URINE AND STOOL UA Nitrite Negative (07/12/17 2:43 PM) Negative 07/12/2017 [facility] URINE AND STOOL UA Glucose Negative mg/dL Negative mg/dL 07/12/2017 [facility] URINE AND STOOL UA Ketones Negative mg/dL Negative mg/dL 07/12/2017 [facility] URINE AND STOOL UA Protein Negative mg/dL Negative mg/dL 07/12/2017 [facility] URINE AND STOOL UA Bacteria Occasional /HPF None Seen /HPF 07/12/2017 [facility] URINE AND STOOL UA Mucus Few /LPF None Seen /LPF 07/12/2017 [facility] URINE AND STOOL UA WBC 6 /HPF 0 - 5 07/12/2017 [facility] URINE AND STOOL UA Leuk Est Negative (07/12/17 2:43 PM) Negative 07/12/2017 [facility] URINE AND STOOL UA Sq Epi Occasional /LPF Few /LPF 07/12/2017 [facility] URINE AND STOOL UA Blood Negative (07/12/17 2:43 PM) Negative 07/12/2017 [facility] URINE AND STOOL UA Urobilinogen 2.0 mg/dL 0.1 - 1.0 07/12/2017 [facility] URINE AND STOOL UA pH 7.0 5.0 - 8.0 07/12/2017 [facility] URINE AND STOOL UA RBC 11 /HPF 0 - 2 07/12/2017 [facility] URINE AND STOOL UA Trans Epi 24 /LPF <=0 /LPF 07/12/2017 [facility] URINE AND STOOL UA Spec Grav 1.009 <=1.030 07/12/2017 [facility] URINE AND STOOL UA Turbidity Slight *ABN* (07/12/17 2:43 PM) Clear 07/12/2017 [facility] BLOOD BANK RESULTS ABO/Rh O POS 07/12/2017 [facility] BLOOD BANK RESULTS Antibody Scrn Negative (07/12/17 12:56 PM) 07/12/2017 [facility] BLOOD [facility] RESULTS FFP product Product available (07/12/17 11:23 AM) 07/12/2017 [facility] BLOOD [facility] RESULTS Platelet product Product available (07/12/17 11:23 AM) 07/12/2017 [facility] Chest 1view DX Chest 1view DX Clinical Indication: Respiratory distress - pre op CABG Comparison: None FINDINGS: AP chest radiograph was obtained. MEDIASTINUM: The cardiac silhouette is normal in size. The aorta is unremarkable. LUNGS: Lung volumes are maintained. There are no focal infiltrates or effusions. There are no pneumothoraces noted. BONES: The visualized osseous structures are unremarkable. IMPRESSION: No acute infiltrates or effusions. SL: [id number] 07/12/2017 - - Read by: Uriel Hauser MD Dictated Date/time: 07/12/17 12:40 Electronically Signed by: Uriel Hauser MD 07/12/17 12:41 FINAL REPORT [facility] Carotid artery Doppler bilat US Carotid artery Doppler bilat US Patient Name: TEDDY LESTER : 1945; Age: 72 years y/o Male MR: [id number] Study: Carotid artery Doppler bilat US 07/12/2017 9:24 AM QUANTITATIVE CONSULTANT Ordering Physician: Kalee Corral Clinical Indication: - pre op CABG; Comparison: None TECHNIQUE: Georges-scale, color Doppler and spectral Doppler of the carotid arteries was performed. Any reported ICA stenoses indirectly reference the distal internal carotid diameter as the denominator for the stenosis measurement, utilizing consensus panel criteria. FINDINGS: RIGHT: No significant plaque ICA PSV 78 cm/sec CCA PSV 100 cm/sec ICA/CCA ratio 0.8 Vertebral flow is antegrade. External carotid artery is patent. LEFT: No significant plaque ICA PSV 99 cm/sec CCA PSV 111 cm/sec ICA/CCA ratio 0.9 Vertebral flow is antegrade. External carotid artery is patent. IMPRESSION: 1. RIGHT: ICA stenosis <50 % by velocity criteria. 1. LEFT: ICA stenosis <50 % by velocity criteria. Consensus panel Doppler US criteria for diagnosis of ICA stenosis: Stenosis (%) ICA PSV (cm/sec) ICA/CCA ratio <50 <125 <2.0 50-69 125-230 2.0-4.0 >70 but less than >230 >4.0 near occlusion Near occlusion High, low, or Variable undetectable : [id number] 07/12/2017 - - Read by: Remigio Varela MD Dictated Date/time: 07/12/17 11:29 Electronically Signed by: Remigio Varela MD 07/12/17 11:30 FINAL REPORT [facility] Small bowel series DX Small bowel series DX Exam: Small bowel x-ray series Reason for Exam: R10.11 Right upper quadrant pain Comparison Exam: CT scan 06/23/2010 Discussion: On board mixer tender view, there are no dilated loops of bowel or abnormal air-fluid level patterns. Postoperative changes seen throughout the lumbar spine as well as the right SI joint. Patient is status post cholecystectomy. The patient was able to ingest barium without incident. After approximately 120 minutes, oral contrast material is seen within the ascending colon. The distribution of small bowel is unremarkable. The mucosal pattern of the small bowel is also unremarkable. There are no fixed intraluminal filling defects. No obstructing or constricting lesions. Fluoro time 1 minute, 32 seconds. Total exam TET=4851 mGy-cm. Impression: 1. Unremarkable small bowel x-ray series 09/08/2016 - - Read by: Marcus Ferguson MD Dictated Date/time: 09/08/16 13:39 Electronically Signed by: Marcus Ferguson MD 09/08/16 13:46 FINAL REPORT [facility] Vital Signs Vital Sign Value Date Comments Source Respitory Rate 09/04/2017 [facility] Respitory Rate 09/04/2017 [facility] Systolic (mm Hg) 112 09/04/2017 [facility] Diastolic (mm Hg) 72 09/04/2017 [facility] Respitory Rate 20 09/04/2017 [facility] Systolic (mm Hg) 112 09/04/2017 [facility] Diastolic (mm Hg) 72 09/04/2017 [facility] Systolic (mm Hg) 149 09/04/2017 [facility] Diastolic (mm Hg) 84 09/04/2017 [facility] Temperature Oral (F) 98 F 09/04/2017 [facility] Temperature Oral (F) 98.0 F 09/03/2017 [facility] Temperature Oral (F) 97.8 F 09/03/2017 [facility] Weight 104.545 09/03/2017 [facility] Weight 101.364 09/02/2017 [facility] BMI Calculated 25.82 09/02/2017 [facility] Height 198.12 cm 09/02/2017 [facility] Heart Rate 65 09/02/2017 [facility] Heart Rate 62 08/09/2017 [facility] Temperature Oral (F) 98.1 F 08/09/2017 [facility] Systolic (mm Hg) 149 08/09/2017 [facility] Diastolic (mm Hg) 96 08/09/2017 [facility] Respitory Rate 18 08/09/2017 [facility] Temperature Oral (F) 97.9 F 08/09/2017 [facility] Heart Rate 57 08/09/2017 [facility] Systolic (mm Hg) 107 08/09/2017 [facility] Diastolic (mm Hg) 66 08/09/2017 [facility] Respitory Rate 18 08/08/2017 [facility] Systolic (mm Hg) 146 08/08/2017 [facility] Diastolic (mm Hg) 92 08/08/2017 [facility] Heart Rate 57 08/08/2017 [facility] Temperature Oral (F) 98.0 F 08/08/2017 [facility] Respitory Rate 18 08/08/2017 [facility] BMI Calculated 29.88 07/30/2017 [facility] Height 195.58 cm 07/30/2017 [facility] Weight 114.3 07/30/2017 [facility] Respitory Rate 20 07/29/2017 [facility] Heart Rate 57 07/29/2017 [facility] Systolic (mm Hg) 142 07/29/2017 [facility] Diastolic (mm Hg) 78 07/29/2017 [facility] Temperature Oral (F) 97.5 F 07/29/2017 [facility] Systolic (mm Hg) 128 07/29/2017 [facility] Diastolic (mm Hg) 75 07/29/2017 [facility] Respitory Rate 20 07/29/2017 [facility] Heart Rate 64 07/29/2017 [facility] Temperature Oral (F) 97.7 F 07/29/2017 [facility] Systolic (mm Hg) 153 07/29/2017 [facility] Diastolic (mm Hg) 95 07/29/2017 [facility] Heart Rate 59 07/29/2017 [facility] Respitory Rate 20 07/29/2017 [facility] Temperature Oral (F) 97.8 F 07/29/2017 [facility] Height 198 cm 07/25/2017 [facility] Height 198 cm 07/25/2017 [facility] Height 198 cm 07/25/2017 [facility] Weight 120.6 07/17/2017 [facility] Weight 113.4 07/16/2017 [facility] Weight 112 07/15/2017 [facility] BMI Calculated 28.69 07/12/2017 [facility] Encounters Location Location Details Encounter Type Encounter Number Reason For Visit Attending Provider ADM Date DC Date Status Source [facility] [place] [facility] [id number] Jim Hwang 09/08/2016 09/09/2016 [facility] Inpatient [id number] Rand Salcedo 07/12/2017 07/30/2017 [facility] PreAdmit [id number] Rand Salcedo 07/12/2017 07/12/2017 [facility] Inpatient Rehab [id number] Eugenio Rutherford Jr 07/30/2017 08/09/2017 [facility] OP Therapy Patients [id number] Eugenio Rutherford Jr 08/18/2017 09/17/2017 [facility] Outpatient [id number] Alex Carmona 08/26/2017 08/27/2017 [facility] Inpatient [id number] Erik Andino 09/02/2017 09/04/2017 [facility] Procedures Procedure Code Date Perfomer Comments Source Back fusion [id number] 07/04/2011 [facility] Back fusion [id number] 07/04/2011 [facility] Hernia repair [id number] 07/09/2009 [facility] Hernia repair [id number] 07/09/2009 [facility] [place] CABG x 4 - Coronary artery bypass grafts x 4 [id number] [facility] Excision of gallbladder [id number] [facility] CABG x 4 - Coronary artery bypass grafts x 4 [id number] [facility] Excision of gallbladder [id number] [facility]
[2018-06-01] MEDS ORDERED: METOPROLOL TARTRATE INJ 1 MG/ML VIAL IV ONE (13:00)
[2018-06-01] MEDS ORDERED: NITROGLYCERIN 0.4 MG SUBL SL ONE (13:00)
--- NOTE | 2018-06-01 13:27 | NUR ---
PT PLACED ON NC 2 LPM SPO2 93%
[2018-06-01 13:29] LABS: BASOPHILS % 0.5 % (0.0-1.0); EOSINOPHILS # (AUTO) 0.1 (0.0-0.4); EOSINOPHILS % 0.8 % (0.0-6.0); HEMATOCRIT 43.1 % (38.2-49.6); HEMOGLOBIN 14.2 g/dL (14.0-18.0); LYMPHOCYTES # (AUTO) 1.5 (1.0-3.2); LYMPHOCYTES % 19.2 % (18.0-39.1); MEAN CORPUSCULAR HEMOGLOBIN 30.1 pg (28-32); MEAN CORPUSCULAR HGB CONC 32.9 g/dL (31-35); MEAN CORPUSCULAR VOLUME 91.3 fL (81-99); MONOCYTES # (AUTO) 0.9 (0.2-0.8); MONOCYTES % 11.7 % (4.4-11.3); NEUTROPHILS # (AUTO) 5.1 (2.1-6.9); NEUTROPHILS % 66.6 % (38.7-80.0); PLATELET COUNT 266 x10e3/uL (140-360); RED BLOOD COUNT 4.72 x10e6/uL (4.3-5.7); RED CELL DISTRIBUTION WIDTH 16.1 % (11.7-14.4)
--- NOTE | 2018-06-01 13:44 | NUR ---
PT B/P AT 1329 107/85 POST NITRO ADMIN PT STATES NO RELIEF
[2018-06-01 13:48] LABS: ALBUMIN 4.1 g/dL (3.5-5.0); ANION GAP 12.2 mmol/L (8-16); CREATININE, SERUM 1.27 mg/dL (0.72-1.25); POTASSIUM 4.2 mmol/L (3.5-5.1)
--- NOTE | 2018-06-01 13:50 | NUR ---
PT C/O CHEST PAIN SINCE EARLY THIS MORNING 11/22 DULL PAIN STATES HE FEELS PRESSURE IN CHEST WELL NON RADIATING DENIES RINGING IN THE EARS, BLURRED VISION, HEADACHE, NOSEBLEED, NUMBNESS/TINGLING IN FINGERS, JAW PAIN, ABDOMINAL PAIN, BACK PAIN STATES PAIN JUST SITS IN HIS CHEST DENIES BREATHING DIFFICULTIES DENIES DOING ANYTHING THAT CAUSED ANY PAIN AND STATES NOTHING HAS RELIEVED PAIN STATES HE HAS NOT TAKEN HIS MEDICATIONS TODAY
[2018-06-01 13:54] LABS: CREATINE KINASE MB 1.6 ng/mL (0-5.0)
--- NOTE | 2018-06-01 13:54 | Diagnostic Imaging Report ---
EXAMINATION: CHEST SINGLE (PORTABLE) INDICATION: Chest pain COMPARISON: March 02, 2018 FINDINGS: TUBES and LINES: None. LUNGS: Lungs are well inflated. Lungs are clear. There is no evidence of pneumonia or pulmonary edema. PLEURA: No pleural effusion or pneumothorax. HEART AND MEDIASTINUM: The cardiomediastinal silhouette is unremarkable. BONES AND SOFT TISSUES: No acute osseous lesion. T4-T6, T8-T9 compression deformities better seen on CT 11/21/2017 given lack of lateral view. Vertebroplasty changes at T11. Median sternotomy wires. Soft tissues are unremarkable UPPER ABDOMEN: No free air under the diaphragm. IMPRESSION: No acute thoracic abnormality. Signed by: Dr. Jassi Ghotra M.D. on 06/01/2018 1:51 PM
[2018-06-01] MEDS ORDERED: CYCLOBENZAPRINE5 MG PO (14:10)
[2018-06-01] MEDS ORDERED: PERCOCET 10-321 EACH PO (14:10)
[2018-06-01] MEDS ORDERED: MORPHINE SULFATE 5 MG/ML VIAL IV ONE (14:15)
[2018-06-01] MEDS ORDERED: MORPHINE SULFATE INJ 4 MG/ML INJ 1ML IV ONE (14:30)
[2018-06-01] MEDS ORDERED: ASPIRIN 81 MG CHEW TAB PO ONE (14:45)
[2018-06-01] MEDS ORDERED: SODIUM CHLORIDE 0.9% 500ML 500 ML IV ONE (15:15)
[2018-06-01 16:15] VITALS: BP 154/94
[2018-06-01] MEDS ORDERED: MORPHINE SULFATE 2 MG/ML SYR 1ML IV PRN (16:15)
--- NOTE | 2018-06-01 16:20 | Diagnostic Imaging Report ---
EXAM: CTA Chest, abdomen, and pelvis WITH contrast. DATE: 06/01/2018 1:00 PM INDICATION: Shortness of breath/pain COMPARISON: CTA chest dated 11/21/2017, no report available. CT abdomen 04/02/2018, no report available. TECHNIQUE: CT angiogram of the chest, abdomen, and pelvis was obtained after the administration of IV contrast. Prospective gating was performed. Images reviewed in the axial, coronal, and sagittal planes. 3D reconstructions performed on off-line workstation. IV Contrast: 100 mL Isovue-370. Total DLP: 963 mGy*cm Est. Eff. Dose DLP x 0.015 x size factor mSv (CTDIvol has been reviewed and is below limits set by [facility]). Appropriate CT dose reduction techniques were utilized. FINDINGS: Chest: Lines and Tubes: None. Lower Neck: The visualized thyroid gland is grossly unremarkable with no suspicious or significant nodule identified. Heart and Great Vessels: The pulmonary artery measure 29 mm. Small amount of inferior pericardial fluid statistically physiologic. No central pulmonary embolus. CABG changes. Common origin left common carotid and right brachycephalic artery. No aortic dissection. Moderate hard and soft plaque descending thoracic aorta. Aortic Annulus: 30 mm. Sinus of Valsalva: 44 mm. Ascending Aorta at level of PA: 39 mm. Mid Arch: 33 mm. Proximal Descendin mm. Mid Descendin mm. Distal Descendin mm. Other: None Lymph Nodes: No suspicious adenopathy. Scattered partially calcified mediastinal and hilar lymph nodes present. Lungs: Biapical scarring. No pleural effusion. Atelectasis present lung bases. Bones and Soft Tissues: Demineralization, compression deformities, vertebroplasty changes, and sternotomy changes similar. Abdomen: Solid organs: Cholecystectomy clips. Bilateral renal cysts. Otherwise unremarkable. Upper GI tract: Small hiatal hernia. Gastric decompression limits evaluation. No small bowel obstructive changes. Adenopathy: No suspicious adenopathy. Vascularity: Moderate to severe narrowing proximal SMA, similar to previous study. Mild at or cirrhotic changes in the renal arteries. Moderate aortic atherosclerotic changes with no aneurysm or dissection. Pelvis: Urinary bladder: Decompressed, limiting evaluation. Wall thickening presumed secondary to decompression. Prostate: Coarse calcifications. Colonic evaluation: Moderate diverticulosis. Moderate stool. Appendix not inflamed. Osseous structures: Multiple compression deformities and vertebroplasty changes lumbar spine. Screws transfix right SI joint. IMPRESSION: 1. No central pulmonary and was. 2. Ectasia/mild aneurysmal dilatation ascending aorta/arch as above. 3. 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 4. Other chronic changes as above. Signed by: Dr. Diego Martin MD on 06/01/2018 4:17 PM
[2018-06-01] MEDS: MORPHINE SULFATE INJ 4 MG/ML INJ 1ML IV PRN ×2 (16:41→20:40)
[2018-06-01 16:46] VITALS: BP 147/96
[2018-06-01 16:54] VITALS: BP 154/94
[2018-06-01] MEDS ORDERED: IOPAMIDOL 370 MG/ML 200 ML INFUS..BTL INJ ONE (17:05)
[2018-06-01] MEDS ORDERED: SODIUM CHLORIDE 0.9% 100 ML 100 ML ONE (17:05)
[2018-06-01] MEDS ORDERED: NON-FORMULARY MEDICATION (Oxycodone Hcl/Acetaminophen (Percocet 10-325 Mg Tablet) 1 TAB) PO PRN (17:30)
[2018-06-01] MEDS ORDERED: NON-FORMULARY MEDICATION (Cyclobenzaprine Hcl (Flexeril) 5 MG) PO PRN (17:30)
[2018-06-01] MEDS ORDERED: ONDANSETRON HCL INJ 2 MG/ML VIAL IV PRN (17:30)
[2018-06-01] MEDS ORDERED: OXYCODONE/ACETAMINOPHEN 5-325 1 EACH TABLET PO PRN (17:30)
[2018-06-01] MEDS ORDERED: HYDRALAZINE HCL 20 MG/ML VIAL IV PRN (17:30)
[2018-06-01] MEDS ORDERED: ACETAMINOPHEN 325 MG TAB PO PRN (17:30)
[2018-06-01] MEDS ORDERED: CYCLOBENZAPRINE HCL 10 MG TAB PO PRN (17:30)
[2018-06-01] MEDS ORDERED: OXYCODONE HCL IR 5 MG TAB PO PRN (17:30)
[2018-06-01] MEDS: DICYCLOMINE HCL 20 MG TAB PO SCH ×2 (18:43→20:39)
--- NOTE | 2018-06-01 19:55 | NUR ---
REPORT RECEIVED FROM OFF GOING NURSE,PT RESTING IN BED ALERT AND ORIENTED, PT HAS CONSTRICTION NOTED TO RIGHT NECK, NO DISTRESS NOTED, DENIES NEEDS, CALL LIGHT IN REACH, INSTRUCTED TO CALL WITH NEEDS, O2 NC WORN, TELEMETRY NOTED, PT REFUSING ORDERED SCDs PRIOR TO EDUCATION
[2018-06-01 20:30] VITALS: BP 149/94
[2018-06-01 20:56] LABS: CREATINE KINASE MB 1.6 ng/mL (0-5.0)
[2018-06-01] MEDS ORDERED: ATORVASTATIN 10 MG TAB PO SCH (21:00)
[2018-06-02 00:05] VITALS: BP 135/87
--- NOTE | 2018-06-02 00:24 | NUR ---
PRN GIVEN FOR PAIN, PT REQUESTING HALF OF ORDERED MEDS, STATES THAT "IT'S TOO MUCH", NO PERCOCET GIVEN WITH ORDERED PAIN MED
[2018-06-02] MEDS: MORPHINE SULFATE INJ 4 MG/ML INJ 1ML IV PRN (02:19)
[2018-06-02 04:00] VITALS: BP 124/83
[2018-06-02 04:09] LABS: BASOPHILS % 0.5 % (0.0-1.0); EOSINOPHILS # (AUTO) 0.1 (0.0-0.4); EOSINOPHILS % 1.1 % (0.0-6.0); HEMATOCRIT 40.3 % (38.2-49.6); HEMOGLOBIN 13.3 g/dL (14.0-18.0); LYMPHOCYTES # (AUTO) 1.1 (1.0-3.2); LYMPHOCYTES % 19.2 % (18.0-39.1); MEAN CORPUSCULAR HEMOGLOBIN 30.6 pg (28-32); MEAN CORPUSCULAR VOLUME 92.6 fL (81-99); MONOCYTES # (AUTO) 0.7 (0.2-0.8); MONOCYTES % 11.9 % (4.4-11.3); NEUTROPHILS # (AUTO) 3.7 (2.1-6.9); NEUTROPHILS % 66.6 % (38.7-80.0); PLATELET COUNT 214 x10e3/uL (140-360); RED BLOOD COUNT 4.35 x10e6/uL (4.3-5.7); RED CELL DISTRIBUTION WIDTH 16.3 % (11.7-14.4)
[2018-06-02 04:26] LABS: ANION GAP 11.4 mmol/L (8-16); CALCIUM 9.5 mg/dL (8.4-10.2); CREATININE, SERUM 1.25 mg/dL (0.72-1.25); MAGNESIUM 1.9 MG/DL (1.3-2.1); POTASSIUM 4.4 mmol/L (3.5-5.1)
[2018-06-02 04:34] LABS: CREATINE KINASE MB 1.1 ng/mL (0-5.0)
[2018-06-02 04:59] LABS: CHOL/HDL RATIO 3.2 (3.9-4.7)
--- NOTE | 2018-06-02 07:19 | NUR ---
pt resting in bed. 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 no c/o pain or s/s distress at this time.
[2018-06-02] MEDS ORDERED: METOCLOPRAMIDE10 MG PO (07:54)
[2018-06-02 08:03] VITALS: BP 131/92
[2018-06-02] MEDS: METOCLOPRAMIDE HCL 10 MG/2ML VIAL IV SCH ×2 (08:13→11:59)
[2018-06-02] MEDS: DICYCLOMINE HCL 20 MG TAB PO SCH ×2 (08:13→11:59)
[2018-06-02] MEDS ORDERED: MORPHINE SULFATE INJ 4 MG/ML INJ 1ML IV PRN (08:30)
--- NOTE | 2018-06-02 08:54 | NUR ---
pt cleared by cardio. pending home o2 eval to dc
[2018-06-02] MEDS ORDERED: METOPROLOL TARTRATE 25 MG TAB PO SCH (09:00)
[2018-06-02] MEDS ORDERED: CLOPIDOGREL BISULFATE 75 MG TAB PO SCH (09:00)
[2018-06-02] MEDS ORDERED: PANTOPRAZOLE SOD 40 MG TABEC PO SCH (09:00)
[2018-06-02 09:43] VITALS: BP 131/92
--- NOTE | 2018-06-02 10:46 | NUR ---
SOCIAL WORK INITIAL ASSESSMENT Field Assistant to bedside to discuss plan of care with patient/family. CM/SW role and care transitions discussed. Anticipated discharge plan discussed along with duration of care. CM/SW discussed patients right to make decisions in care. CM/SW work hours given. 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 Name and number was also written on the patients whiteboard. Patient verbalized understanding of discussion. CM will follow-up with ongoing discharge and transition of care needs.
[2018-06-02] MEDS ORDERED: METOCLOPRAMIDE HCL 10 MG/2ML VIAL IV SCH (11:30)
[2018-06-02 12:07] VITALS: BP 107/70
--- NOTE | 2018-06-02 13:25 | Consultation ---
DATE OF CONSULTATION: CARDIOLOGY CONSULTATION REASON FOR CONSULTATION: Chest pain. HISTORY OF PRESENT ILLNESS: This is a 73-year-old man who has a history of myocardial infarction, coronary artery disease status post coronary artery bypass graft surgery in June of 2017, gastroesophageal reflux disease, hypertension, hyperlipidemia, and chronic pain, who presented to the emergency department with chest pain. He states that he was in his usual state of health and developed epigastric and lower sternal moderate to severe chest discomfort. No exertional symptoms, mildly worsened with deep inspiration and movement, no shortness of breath or lower extremity swelling. Patient states that this discomfort is different from his prior myocardial infarction where he developed severe bilateral shoulder pain with shortness of breath and diaphoresis. On arrival here, he was noted to be hypertensive with systolic readings above 200 and he has had three sets of negative cardiac enzymes. REVIEW OF SYSTEMS: A 12-point review of systems was conducted, is negative otherwise as above in the HPI. PAST MEDICAL HISTORY: As stated above in the HPI. PAST SURGICAL HISTORY: Coronary artery bypass graft surgery. PAST FAMILY HISTORY: No premature coronary artery disease or sudden cardiac . SOCIAL HISTORY: No current illicit drug use, alcohol use, tobacco use. ALLERGIES: SULFA. MEDICATIONS: See medication reconciliation form. PHYSICAL EXAMINATION VITAL SIGNS: Temperature is 98.4, heart rate is 86, respirations are 20, blood pressure is 131/92, oxygen saturation is 96% on room air. GENERALLY: A well-appearing man in no apparent distress, alert and oriented x3. HEAD: Normocephalic, atraumatic. EYES: The extraocular muscles are intact. Conjunctiva is clear. NECK: No JVD, no bruits. CARDIOVASCULAR: Regular rate and rhythm. No murmurs. LUNGS: Clear to auscultation. ABDOMEN: Soft, nontender, nondistended. MUSCULOSKELETAL: Patient has tenderness of the right lower sternal border upon palpation. EXTREMITIES: No edema. VASCULAR: Diminished pulses. SKIN: Warm, dry, intact. NEUROLOGIC: No focal deficits noted. Cranial nerves grossly intact. PSYCHIATRIC: Normal mood and affect. All laboratory data were reviewed. Creatinine 1.25, potassium 4.4, sodium 137. Cardiac enzymes normal times three. Lipase 5. LDL 65. CT angiogram of the chest shows no central pulmonary embolism, ectasia of the aortic root measured at 4.4 cm, no aortic dissection, stable moderate narrowing of the superior mesenteric artery. Two-D echocardiogram showed preserved left ventricular systolic function, no valvular abnormalities. IMPRESSION 1. Musculoskeletal pain. 2. Gastroesophageal reflux disease. 3. Coronary artery disease status post coronary artery bypass graft surgery. 4. Dietary noncompliance. 5. Hypertensive urgency. RECOMMENDATIONS: Upon questioning, the patient reports to significant soda ingestion and significant salt intake. I discussed diet extensively with the patient and his . Will start the patient on amlodipine for better blood pressure control. Will try to avoid nephrotoxic agents at this point in time. Musculoskeletal pain management per primary team. There was no evidence of sternal dehiscence on the CT of the chest. There was no evidence of acute coronary syndrome, and his left ventricular systolic function is preserved. Patient may be discharged from a cardiovascular standpoint with outpatient followup. Job#: [id number] EV
[2018-06-02 15:30] VITALS: BP 121/74
[2018-06-02] MEDS ORDERED: LACTULOSE SYRUP 20 GM/30 ML UDC PO ONE (15:45)
[2018-06-02] MEDS ORDERED: BISACODYL 5 MG TAB EC PO ONE (15:45)
--- NOTE | 2018-06-02 16:34 | Discharge Summary ---
ADMISSION DIAGNOSES 1. Chest pain. 2. Hypertension. 3. Hyperlipidemia. 4. Gastroesophageal reflux disease. 5. Chronic kidney disease, 3. 6. Muscle spasm. DISCHARGE DIAGNOSES 1. Chest pain. 2. Hypertension. 3. Hyperlipidemia. 4. Gastroesophageal reflux disease. 5. Chronic kidney disease, 3. 6. Muscle spasm. 7. Ruled out acute coronary syndrome. HISTORY: Patient has a history of hypertension, CKD, 3, hyperlipidemia, GERD, CAD with history of ND, Parkinson's disease, TIA with no deficit. SURGICAL HISTORY: Cholecystectomy, back surgery, coronary artery bypass times 4, umbilical hernia repair. FAMILY HISTORY: Patient's mother and father both had cancer. SOCIAL HISTORY: Patient admits to occasional alcohol use, but denies illicit drug use and tobacco use. HOSPITAL COURSE: A 73-year-old male complains of a constant substernal chest pain that began yesterday while working at his desk. The pain did not radiate. Pain is improved with rest and worsened by nothing. He denies dizziness, shortness of breath or diaphoresis. On admission, the patient's troponins were negative times 3. Echo showed an EF of 56%. Chest x-ray negative. Patient given aspirin. CTA of the chest was also negative. Vital signs were stable. Patient afebrile. Patient will resume home medicines plus Reglan. He was instructed that the chest pain is likely due to GERD, gastritis or muscle pain. Patient will follow up with cardiology as discussed. Primary care in 1-2 weeks and GI as needed. Patient understands discharge instructions and agrees to plan. Vital signs stable. Patient afebrile. DICTATED BY VICKY WILKINSON NP LASHA ROQUE MD Job#: [id number] PR
--- NOTE | 2018-06-02 16:35 | NUR ---
notified Tammy [employer] of home o2 eval and pt request for rx for bm, onetime bm rx, vs stable. reviewed dc instructions with pt, verbalized understanding.
== END 2018-06-02 16:45 | disposition home or self-care (01) ==
LOC: ER 12:46 → ERHOLD 14:54 → IMCU 16:05
PROVIDERS: ADMIT Internal Medicine; ATTEND Internal Medicine
DX: R07.89 Other chest pain (principal); I12.9 Hypertensive chronic kidney disease with stage 1 through stage 4 chronic kidney disease, or unspecified chronic kidney disease; I16.0 Hypertensive urgency; N18.3 Chronic kidney disease, stage 3 (moderate); I25.10 Atherosclerotic heart disease of native coronary artery without angina pectoris; I25.2 Old myocardial infarction; K21.9 Gastro-esophageal reflux disease without esophagitis; E78.5 Hyperlipidemia, unspecified; G20 Parkinson's disease; Z86.73 Personal history of transient ischemic attack (TIA), and cerebral infarction without residual deficits; Z95.1 Presence of aortocoronary bypass graft; M62.838 Other muscle spasm; Z87.891 Personal history of nicotine dependence; Z91.11 Patient's noncompliance with dietary regimen; Z88.2 Allergy status to sulfonamides
CPT/HCPCS: 36415 ×2; 71045; 71275; 74174; 80048; 80053; 80061; 82550 ×2; 82553 ×2; 83690; 83735; 84484 ×2; 85025 ×2; 85730; 86850; 86900; 93005; 93306; 99284; G0378 ×2; J2270 ×2; J2405; J2765; J7040; Q9967; S0164

== ENCOUNTER 2018-07-10 10:16 | Emergency (ER) | payer MEDICARE ==
[~2018-07-10] VITALS: Ht 198.1 cm; Wt 103.4 kg
[~2018-07-10 10:16] MED LIST changes: +METOCLOPRAMIDE10 MG PO; +PERCOCET 10-321 EACH PO
--- OUTSIDE RECORDS SUMMARY | 2018-07-10 10:21 | XMS REPORT | Continuity of Care Document ---
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 [facility] [place] HYPOTENSION Active 09/02/2017 [facility] CHEST Active 08/26/2017 [facility] Encounter for surgical aftercare following surgery on the circulatory system 08/17/2017 11/15/2017 [facility] HIE Active 08/10/2017 [facility] [place] DEBILITY Active 07/11/2017 [facility] NSTEMI Active 07/11/2017 [facility] ACUTE NSTEMI Active 07/11/2017 [facility] R10.11 - RIGHT UPPER QUADRANT PAIN Active 08/23/2016 [facility] BACKPAIN Active 02/12/2015 [facility] Acute tubular necrosis Active Problem 11/15/2017 [facility] [place] Debility Active Problem 11/15/2017 [facility] [place] Atrial fibrillation with RVR Active Problem 11/15/2017 [facility] [place] CVA (<span ID="[id number]</span>) Active Problem 11/15/2017 [facility] [place] Chest pain Active Problem [facility] Active Problem 11/15/2017 [facility] [place] Autonomic dysfunction Active Problem 11/15/2017 [facility] [place] History of kyphoplasty Active Problem 11/15/2017 [facility] [place] Hyperlipidemia Active Problem 11/15/2017 [facility] [place] Hypertension Active Problem 11/15/2017 [facility] [place],[facility] Shock liver Active Problem 11/15/2017 [facility] [place] Generalized muscle weakness Active Problem 11/15/2017 [facility] [place] Obesity Active Problem 11/15/2017 [facility] [place] Sepsis with organ dysfunction Active Problem 11/15/2017 [facility] [place] Chest pain Active Problem 09/19/2017 [facility] [place],[facility] [place] Hypertension Active Problem 09/19/2017 [facility] [place],[facility] [place] Other malaise 11/15/2017 [facility] Non-ST elevation myocardial infarction 11/15/2017 [facility] Acute kidney failure, unspecified 11/15/2017 [facility] Morbid obesity due to excess calories 11/15/2017 [facility] Thrombocytopenia, unspecified 11/15/2017 [facility] Acute posthemorrhagic anemia 11/15/2017 [facility] Hypomagnesemia 11/15/2017 [facility] Parkinson's disease 11/15/2017 [facility] Unspecified atrial fibrillation 11/15/2017 [facility] Atherosclerotic heart disease of platinum coronary artery without angina pectoris 11/15/2017 [facility] Presence of aortocoronary bypass graft 11/15/2017 [facility] Other abnormalities of gait and mobility 11/15/2017 [facility] Hypokalemia 11/15/2017 [facility] Body mass index 29.0-29.9, adult 11/15/2017 [facility] Other acute postprocedural pain 11/15/2017 [facility] Other lack of coordination 11/15/2017 [facility] Abnormal posture 11/15/2017 [facility] Hyperlipidemia, unspecified 11/15/2017 [facility] Other streptococcal sepsis 11/04/2017 [facility] Acute respiratory failure with hypoxia 11/04/2017 [facility] Cardiac tamponade 11/04/2017 [facility] Acute and subacute hepatic failure without coma 11/04/2017 [facility] Acute kidney failure with tubular necrosis 11/04/2017 [facility] Cerebral infarction due to embolism of right posterior cerebral artery 11/04/2017 [facility] Pneumonia, unspecified organism 11/04/2017 [facility] Severe sepsis with septic shock 11/04/2017 [facility] Toxic encephalopathy 11/04/2017 [facility] Pericardial effusion 11/04/2017 [facility] Acidosis 11/04/2017 [facility] Hyperosmolality and hypernatremia 11/04/2017 [facility] Melena 11/04/2017 [facility] Essential hypertension 11/04/2017 [facility] Nosocomial condition 11/04/2017 [facility] Hyperkalemia 11/04/2017 [facility] Restlessness and agitation 11/04/2017 [facility] Urethral stricture, unspecified 11/04/2017 [facility] Hypocalcemia 11/04/2017 [facility] Feeding difficulties 11/04/2017 [facility] Claustrophobia 11/04/2017 [facility] Dysphagia, unspecified 11/04/2017 [facility] OTHER MALAISE Active [facility] NON-ST ELEVATION (NSTEMI) MYOCARDIAL INF Active [facility] CHEST PAIN, UNSPECIFIED Active [facility] ATHSCL HEART DISEASE OF [place] CORONARY Active [facility] HYPOTENSION, UNSPECIFIED Active [facility] HYPOXEMIA Active [facility] Medications Medication Details Route Status Patient Instructions Ordering Provider Order Date Source metoprolol 25 mg oral tablet, extended release 25 mg=1 tab, PO, Daily, # 30 tab, 0 Refill(s), Pharmacy: [id number] Active 09/04/2017 [facility] metoprolol extended release 25 mg, 1 tab, Route: PO, Drug form: ERTAB, Daily, Start date: 09/04/17 10:45:00 CDT, Duration: 30 day, Stop date: 10/04/17 9:00:00 CDTNotes: (Same as: Toprol XL) Do Not Crush Inactive 09/04/2017 [facility] Protonix 40 mg, 1 tab, Route: PO, Drug form: ECTAB, Daily, Dosing Weight 104.545, kg, Start date: 09/04/17 9:00:00 CDT, Duration: 30 day, Stop date: 10/03/17 9:00:00 CDTNotes: Tablet should not be chewed or crushed. (Same as: Protonix) Inactive 09/04/2017 [facility] ferrous sulfate 325 mg, 1 tab, Route: PO, Drug form: ECTAB, Daily, Dosing Weight 104.545, kg, Start date: 09/04/17 9:00:00 CDT, Duration: 30 day, Stop date: 10/03/17 9:00:00 CDTNotes: Give with food. "Do Not Crush" Inactive 09/04/2017 [facility] Plavix 75 mg, 1 tab, Route: PO, Drug form: TAB, Daily, Dosing Weight 104.545, kg, Start date: 09/04/17 9:00:00 CDT, Duration: 30 day, Stop date: 10/03/17 9:00:00 CDTNotes: (Same As: Plavix) Inactive 09/04/2017 [facility] Aspirin 81 MG Chewable Tablet 81 mg, 1 tab, Route: PO, Drug form: CHEWTAB, Daily, Dosing Weight 104.545, kg, Start date: 09/04/17 9:00:00 CDT, Duration: 30 day, Stop date: 10/03/17 9:00:00 CDTNotes: Take with food. Inactive 09/04/2017 [facility] Amiodarone 200 mg, 1 tab, Route: PO, Drug form: TAB, Daily, Dosing Weight 104.545, kg, Start date: 09/04/17 9:00:00 CDT, Duration: 30 day, Stop date: 10/03/17 9:00:00 CDTNotes: (Same as: Cordarone) Inactive 09/04/2017 [facility] atorvastatin 10 mg, 1 tab, Route: PO, Drug form: TAB, Bedtime, Dosing Weight 104.545, kg, Start date: 09/03/17 21:00:00 CDT, Duration: 30 day, Stop date: 10/02/17 21:00:00 CDTNotes: (Same As: Lipitor) No Longer Active 09/04/2017 [facility] Amiodarone 200 mg, Route: PO, Drug form: TAB, BID, Dosing Weight 104.545, kg, Start date: 09/03/17 17:00:00 CDT, Duration: 30 day, Stop date: 10/03/17 9:00:00 CDT Inactive 09/03/2017 [facility] Carbidopa 25 MG / Levodopa 100 MG Oral Tablet 1 tab, Route: PO, Drug Form: TAB, Dosing Weight 104.545, kg, TID, Start date: 09/03/17 13:00:00 CDT, Duration: 30 day, Stop date: 10/03/17 9:00:00 CDTNotes: Take with milk or food. (Same As: Sinemet) No Longer Active 09/03/2017 [facility] Lactulose 667 MG/ML Oral Solution 30 gm, 45 mL, Route: PO, Drug form: SYRP, ONCE, Dosing Weight 104.545, kg, Start date: 09/03/17 9:43:00 CDT, Stop date: 09/03/17 9:43:00 CDTNotes: (Same as:Chronulac) Inactive 09/03/2017 [facility] d50 syringe 50 gm, 100 mL, Route: IVP, Drug Form: INJ, Dosing Weight 104.545, kg, ONCE, Start date: 09/03/17 9:43:00 CDT, Stop date: 09/03/17 9:43:00 CDT Inactive 09/03/2017 [facility] Kayexalate 45 gm, 180 mL, Route: PO, Drug form: SUSP, ONCE, Dosing Weight 104.545, kg, Start date: 09/03/17 9:43:00 CDT, Stop date: 09/03/17 9:43:00 CDTNotes: (sodium polystyrene sulfonate 15 gm/60 ml LEONARDO) Shake well before use. (Same as: Kayexalate, SPS) Inactive 09/03/2017 [facility] Acetaminophen 325 MG / Hydrocodone Bitartrate 5 MG Oral Tablet [[place] 5/325] 1 tab, Route: PO, Drug Form: TAB, Dosing Weight 104.545, kg, Q4H, PRN Pain Score 4-6, Start date: 09/03/17 9:06:00 CDT, Duration: 30 day, Stop date: 10/03/17 9:05:00 CDTNotes: (Same as: Wellington 325/5) Do not exceed 4gm/day of acetaminophen. No Longer Active 09/03/2017 [facility] Saline Flush 0.9% 10 ml, Route: IVP, Drug Form: INJ, Dosing Weight 101.364, kg, Q12H, Start date: 09/03/17 9:00:00 CDT, Duration: 30 day, Stop date: 10/02/17 21:00:00 CDTNotes: (Same as: BD Posiflush) No Longer Active 09/03/2017 [facility] Famotidine 20 mg, 2 mL, Route: IVP, Drug form: INJ, Q12H, Dosing Weight 101.364, kg, Start date: 09/03/17 9:00:00 CDT, Duration: 30 day, Stop date: 10/02/17 21:00:00 CDTNotes: (Same as: Pepcid) Can be dilute in 5-10cc NS IVP: Slow IV push over at least 2 minutes. Inactive 09/03/2017 [facility] heparin 5,000 unit, 1 mL, Route: SUB-Q, Drug form: INJ, Q12H, Dosing Weight 104.545, kg, Start date: 09/03/17 9:00:00 CDT, Duration: 30 day, Stop date: 10/02/17 21:00:00 CDTNotes: porcine heparin No Longer Active 09/03/2017 [facility] Dextrose 50% Syringe 25 gm, Route: IVP, Dosing Weight 104.545, kg, ONCE, Start date: 09/03/17 8:51:00 CDT, Stop date: 09/03/17 8:51:00 CDT Inactive 09/03/2017 [facility] Insulin regular 10 unit, 0.1 mL, Route: IV, Drug form: INJ, ONCE, Dosing Weight 104.545, kg, Start date: 09/03/17 8:51:00 CDT, Stop date: 09/03/17 8:51:00 CDTNotes: (Same as: Humulin R and NovoLIN R) WASTE: F/P - Black; E - Municipal Trash Bin (Do not shake) Inactive 09/03/2017 [facility] Kayexalate 30 gm, Route: PO, Drug form: SUSP, ONCE, Dosing Weight 104.545, kg, Start date: 09/03/17 8:47:00 CDT, Stop date: 09/03/17 8:47:00 CDT Inactive 09/03/2017 [facility] Atropine 0.5 mg, 5 mL, Route: IV, Drug form: INJ, PRN, Dosing Weight 104.545, kg, PRN Bradycardia, Start date: 09/03/17 7:22:00 CDT, Duration: 30 day, Stop date: 10/03/17 7:21:00 CDT No Longer Active 09/03/2017 [facility] cefepime 1 gm, Route: IVPB, ABXQ8H, Dosing Weight 101.364, kg, (CrCl >/=50 ml/min), Start date: 09/03/17 0:00:00 CDT, Duration: 30 day, Stop date: 10/02/17 16:00:00 CDT, ABX Indication: Skin/Soft Tissue InfectionNotes: (Same As: Maxipime) MEDICATION WASTE Product Size: 1000 mg Product Wasted: ___ mg Inactive 09/03/2017 [facility] Fentanyl 25 microgram, 0.5 mL, Route: IVP, Drug form: INJ, Q4H, Dosing Weight 101.364, kg, PRN Pain Score 6-10, Start date: 09/02/17 23:32:00 CDT, Stop date: 10/02/17 23:31:00 CDT, Pain Score 6-10 | Other -See C ommentNotes: (Same as: Sublimaze) Preservative free. No Longer Active 09/03/2017 [facility] Sodium Chloride 0.9% IV 1,000 mL 1,000 mL, Rate: 100 ml/hr, Infuse over: 10 hr, Route: IV, Dosing Weight 101.364 kg, Total Volume: 1,000, Start date: 09/02/17 22:47:00 CDT, Duration: 30 day, Stop date: 10/02/17 22:46:00 CDT, 2.36, m2 No Longer Active 09/03/2017 [facility] Saline Flush 0.9% 10 ml, Route: IVP, Drug Form: INJ, Dosing Weight 101.364, kg, PRN, PRN Line Flush, Start date: 09/02/17 21:55:00 CDT, Duration: 30 day, Stop date: 10/02/17 21:54:00 CDTNotes: (Same as: BD Posiflush) No Longer Active 09/03/2017 [facility] Nystatin 100 UNT/MG Topical Powder 1 appl, Route: TOP, PRN, Drug form: PWDR, PRN For Fungal Prophylaxis, Start date: 09/02/17 21:55:00 CDT, Duration: 30 day, Stop date: 10/02/17 21:54:00 CDTNotes: (Same as:Mycostatin, Nilstat) For external use only. No Longer Active 09/03/2017 [facility] metoprolol tartrate 50 mg oral tablet 50 mg=1 tab, PO, Daily, 0 Refill(s) No Longer Active 09/03/2017 [facility] Tylenol 975 mg, 3 tab, Route: PO, Drug form: TAB, ONCE, Dosing Weight 101.364, kg, Priority: STAT, Start date: 09/02/17 20:36:00 CDT, Stop date: 09/02/17 20:36:00 CDTNotes: Do not exceed 4 gm/day. (Same as: Tylenol) Inactive 09/03/2017 [facility] Sodium Chloride 0.9% IV 1000 mL 1,000 mL, Rate: 100 ml/hr, Infuse over: 10 hr, Route: IV, Dosing Weight 101.364 kg, Total Volume: 1,000, Start date: 09/02/17 18:00:00 CDT, Duration: 30 day, Stop date: 10/02/17 17:59:00 CDT, 2.36, m2 Inactive 09/02/2017 [facility] NS (Bolus) IV 1,000 mL, 1,000 ml/hr, Infuse Over: 1 hr, Route: IV, 1,000, Drug form: INJ, ONCE, Priority: STAT, Dosing Weight 101.364 kg, Start date: 09/02/17 17:59:00 CDT, Stop date: 09/02/17 17:59:00 CDT Inactive 09/02/2017 [facility] Dexamethasone 10 mg, Route: IVP, ONCE, Dosing Weight 101.364, kg, Priority: STAT, Start date: 09/02/17 16:59:00 CDT, Stop date: 09/02/17 16:59:00 CDT Inactive 09/02/2017 [facility] Morphine 2 mg, 1 mL, Route: IVP, Drug form: SOLN, ONCE, Dosing Weight 101.364, kg, Priority: STAT, Start date: 09/02/17 16:51:00 CDT, Stop date: 09/02/17 16:51:00 CDT Inactive 09/02/2017 [facility] Morphine 2 mg, 2 mL, Route: IVP, Drug form: SOLN, ONCE, Dosing Weight 101.364, kg, Priority: STAT, Start date: 09/02/17 13:09:00 CDT, Stop date: 09/02/17 13:09:00 CDTNotes: Preservative free. (Same as: Morphine Sulfate-PF) Inactive 09/02/2017 [facility] tizanidine 2 mg, 0.5 tab, Route: PO, Drug form: TAB, ONCE, Dosing Weight 101.364, kg, Start date: 09/02/17 13:09:00 CDT, Stop date: 09/02/17 13:09:00 CDT, ..Notes: (Same As: Zanaflex) Inactive 09/02/2017 [facility] Zofran ODT 4 mg, Route: PO, Drug form: TABDIS, ONCE, Dosing Weight 101.364, kg, Priority: STAT, Start date: 09/02/17 12:19:00 CDT, Stop date: 09/02/17 12:19:00 CDT Inactive 09/02/2017 [facility] Acetaminophen 325 MG / Hydrocodone Bitartrate 5 MG Oral Tablet [[place] 5/325] 1 tab, Route: PO, Drug Form: TAB, Dosing Weight 101.364, kg, ONCE, STAT, Start date: 09/02/17 11:34:00 CDT, Stop date: 09/02/17 11:34:00 CDT Inactive 09/02/2017 [facility] Speech Therapy See Instructions, MISC, ONCALL, Evaluate and Treat 1-2 times per week for 6-8 weeks, # 1 ea, 0 Refill(s) No Longer Active 08/09/2017 [facility] Occupational Therapy See Instructions, MISC, ONCALL, Evaluate and Treat 2-3 times per week for2-4 weeks, # 1 unit, 0 Refill(s) No Longer Active 08/09/2017 [facility] Physical Therapy See Instructions, MISC, ONCALL, Evaluate and Treat 2-3 times per week for 4-6 weeks, # 1 ea, 0 Refill(s) No Longer Active 08/09/2017 [facility] clopidogrel 75 MG Oral Tablet [Plavix] 75 mg=1 tab, PO, Daily, # 30 tab, 0 Refill(s), Pharmacy: [place] [id number] Active 08/09/2017 [facility] acetaminophen 500 mg oral tablet 1,000 mg=2 tab, PO, TID, 0 Refill(s) No Longer Active 08/09/2017 [facility] potassium chloride 20 mEq oral tablet, extended release 20 mEq=1 tab, PO, Daily, # 30 tab, 0 Refill(s), Pharmacy: [place] [id number] No Longer Active 08/09/2017 [facility] pantoprazole 40 MG Enteric Coated Tablet [Protonix] 40 mg=1 tab, PO, Daily, # 30 tab, 0 Refill(s), Pharmacy: [place] [id number] Active 08/09/2017 [facility] metoprolol tartrate 50 mg oral tablet 50 mg=1 tab, PO, Q12H, # 60 tab, 0 Refill(s), Pharmacy: [place] [id number] No Longer Active 08/09/2017 [facility] lisinopril 10 mg oral tablet 10 mg=1 tab, PO, Daily, # 30 tab, 0 Refill(s), Pharmacy: [place] [id number] No Longer Active 08/09/2017 [facility] Furosemide 40 MG Oral Tablet [Lasix] 40 mg=1 tab, PO, Daily, # 30 tab, 0 Refill(s), Pharmacy: [place] [id number] No Longer Active 08/09/2017 [facility] Carbidopa 25 MG / Levodopa 100 MG Oral Tablet 1 tab, PO, TID, # 90 tab, 0 Refill(s), Pharmacy: [place] [id number] Active 08/09/2017 [facility] atorvastatin 10 mg oral tablet 10 mg=1 tab, PO, Bedtime, # 30 tab, 0 Refill(s), Pharmacy: [place] [id number] Active 08/09/2017 [facility] tramadol hydrochloride 50 MG Oral Tablet 50 mg=1 tab, PO, Q4H, PRN Pain Score 6-10, X 5 day, # 20 tab, 0 Refill(s) No Longer Active 08/09/2017 [facility] Aspirin 81 MG Chewable Tablet 81 mg=1 tab, PO, Daily, # 30 tab, 0 Refill(s), Pharmacy: [place] [id number] Active 08/09/2017 [facility] AMIODarone 200 mg oral tablet 200 mg=1 tab, PO, BID, # 60 tab, 0 Refill(s), Pharmacy: [place] [id number] Active 08/09/2017 [facility] ferrous sulfate 325 mg oral enteric coated tablet 325 mg=1 tab, PO, Daily, # 30 tab, 0 Refill(s), Pharmacy: [place] [id number] Active 08/09/2017 [facility] Calcium Carbonate 500 MG Chewable Tablet 1,000 mg=2 tab, PO, Daily, 0 Refill(s) No Longer Active 08/09/2017 [facility] Tylenol 1,000 mg, 2 tab, Route: PO, Drug form: TAB, TID, Dosing Weight 114.3, kg, Start date: 08/08/17 12:00:00 CDT, Duration: 30 day, Stop date: 09/07/17 6:00:00 CDTNotes: Max acetaminophen 4000 mg/day (4 gm/day). (Same as: Tylenol Extra Strength) No Longer Active 08/08/2017 [facility] metoprolol tartrate 25 mg, 1 tab, Route: PO, Drug form: TAB, Q12H, Dosing Weight 114.3, kg, Start date: 08/07/17 21:00:00 CDT, Duration: 30 day, Stop date: 09/06/17 9:00:00 CDTNotes: (Same as: Lopressor) No Longer Active 08/08/2017 [facility] Amiodarone 200 mg, 1 tab, Route: PO, Drug form: TAB, BID, Dosing Weight 114.3, kg, Start date: 08/07/17 21:00:00 CDT, Duration: 30 day, Stop date: 09/06/17 9:00:00 CDTNotes: (Same as: Cordarone) No Longer Active 08/08/2017 [facility] Furosemide 40 MG Oral Tablet [Lasix] 40 mg, 2 tab, Route: PO, Drug form: TAB, Daily, Dosing Weight 114.3, kg, Start date: 08/06/17 9:00:00 CDT, Duration: 30 day, Stop date: 09/04/17 9:00:00 CDTNotes: (Same as: Lasix) May cause GI upset. Give with food or milk. No Longer Active 08/06/2017 [facility] Magnesium Sulfate 2 gm, 50 mL, Route: IVPB, Drug form: INJ, Q2H, Dosing Weight 114.3, kg, Total dose=4 gm, Start date: 08/04/17 16:00:00 CDT, Duration: 2 doses or times, Stop date: 08/04/17 18:00:00 CDTNotes: WASTE: F/P - Sink; E - Municipal Trash Bin Inactive 08/04/2017 [facility] Lasix 40 mg, 4 mL, Route: IVP, Drug form: INJ, BID Diuretic, Dosing Weight 114.3, kg, Start date: 08/04/17 8:00:00 CDT, Duration: 30 day, Stop date: 09/02/17 16:00:00 CDTNotes: (Same as: Lasix) MEDICATION WASTE Product Size: 40 mg Product Wasted: ___ mg No Longer Active 08/04/2017 [facility] Tessalon Perles 100 mg, 1 cap, Route: PO, Drug form: CAP, TID, Dosing Weight 114.3, kg, PRN Cough, Start date: 08/02/17 12:15:00 CDT, Duration: 30 day, Stop date: 09/01/17 12:14:00 CDTNotes: (Same As: Tessalon Perles) "Do Not Crush" No Longer Active 08/02/2017 [facility] Robitussin-AC oral syrup 5 ml, Route: PO, Drug Form: LIQ, Dosing Weight 114.3, kg, Q6H, PRN Cough/Congestion, Start date: 08/02/17 12:15:00 CDT, Duration: 30 day, Stop date: 09/01/17 12:14:00 CDTNotes: (Same As: Robitussin AC) No Longer Active 08/02/2017 [facility] predniSONE 10 mg, 1 tab, Route: PO, Drug form: TAB, Daily, Start date: 08/02/17 12:00:00 CDT, Duration: 1 doses or times, Stop date: 08/02/17 12:00:00 CDTNotes: (Same as: PredniSONE) Take with food. Inactive 08/02/2017 [facility] Magnesium Sulfate 2 gm, 50 mL, Route: IVPB, Drug form: INJ, Q2H, Dosing Weight 114.3, kg, Total dose=4 gm, Start date: 08/02/17 10:00:00 CDT, Duration: 2 doses or times, Stop date: 08/02/17 12:00:00 CDTNotes: WASTE: F/P - Sink; E - Municipal Trash Bin Inactive 08/02/2017 [facility] Lisinopril 10 mg, 2 tab, Route: PO, Drug form: TAB, Daily, Dosing Weight 114.3, kg, Start date: 08/02/17 9:00:00 CDT, Duration: 30 day, Stop date: 08/31/17 9:00:00 CDTNotes: (Same as: Prinivil, Zestril) No Longer Active 08/02/2017 [facility] Sidney packet 1 pkt, Route: PO, Drug Form: PWDR, Dosing Weight 114.3, kg, BID-Before Meals, Start date: 08/01/17 16:30:00 CDT, Duration: 14 day, Stop date: 08/15/17 7:30:00 CDTNotes: (Same as: Sidney Pelsor) No Longer Active 08/01/2017 [facility] Tums 500 mg, 1 tab, Route: CHEW, Drug form: CHEWTAB, TID, Dosing Weight 114.3, kg, PRN Indigestion, Start date: 08/01/17 11:13:00 CDT, Duration: 30 day, Stop date: 08/31/17 11:12:00 CDTNotes: (Same As: Tums) Calcium Carbonate 500 dj=044 mg elemental calcium Dose= mg calcium carbonate ( mg elemental calcium) No Longer Active 08/01/2017 [facility] potassium chloride 20 mEq, 1 tab, Route: PO, Drug form: ERTAB, Daily, Dosing Weight 114.3, kg, Start date: 08/01/17 9:00:00 CDT, Stop date: 08/29/17 9:00:00 CDTNotes: (Same as: K-Dur 20) "Do Not Crush" With food and full glass of water No Longer Active 08/01/2017 [facility] predniSONE 20 mg, 2 tab, Route: PO, Drug form: TAB, Daily, Start date: 08/01/17 9:00:00 CDT, Duration: 1 doses or times, Stop date: 08/01/17 9:00:00 CDTNotes: (Same as: PredniSONE) Take with food. Inactive 08/01/2017 [facility] predniSONE 30 mg, 3 tab, Route: PO, Drug form: TAB, Daily, Start date: 07/31/17 9:00:00 CDT, Duration: 1 doses or times, Stop date: 07/31/17 9:00:00 CDTNotes: (Same as: PredniSONE) Take with food. Inactive 07/31/2017 [facility] ferrous sulfate 325 mg, 1 tab, Route: PO, Drug form: ECTAB, Daily, Dosing Weight 114.3, kg, Start date: 07/31/17 9:00:00 CDT, Stop date: 08/29/17 9:00:00 CDTNotes: Give with food. "Do Not Crush" No Longer Active 07/31/2017 [facility] Plavix 75 mg, 1 tab, Route: PO, Drug form: TAB, Daily, Dosing Weight 114.3, kg, Start date: 07/31/17 9:00:00 CDT, Duration: 30 day, Stop date: 08/29/17 12:00:00 CDTNotes: (Same As: Plavix) No Longer Active 07/31/2017 [facility] Lasix 40 mg, 2 tab, Route: PO, Drug form: TAB, BID, Dosing Weight 120.6, kg, Start date: 07/30/17 9:00:00 CDT, Duration: 30 day, Stop date: 08/28/17 17:00:00 CDTNotes: (Same as: Lasix) May cause GI upset. Give with food or milk. No Longer Active 07/30/2017 [facility] calcium carbonate 1,000 mg, 2 tab, Route: PO, Drug form: CHEWTAB, Daily, Dosing Weight 120.6, kg, Start date: 07/30/17 9:00:00 CDT, Duration: 30 day, Stop date: 08/28/17 9:00:00 CDTNotes: (Same As: Tums) Calcium Carbonate 500 yb=973 mg elemental calcium Dose= mg calcium carbonate ( mg elemental calcium) No Longer Active 07/30/2017 [facility] aspirin 81 mg tablet, chewable 81 mg, 1 tab, Route: PO, Drug form: CHEWTAB, Daily, Dosing Weight 112.6, kg, Start date: 07/30/17 9:00:00 CDT, Duration: 30 day, Stop date: 08/28/17 12:00:00 CDTNotes: Take with food. No Longer Active 07/30/2017 [facility] Sinemet 25 mg-100 mg oral tablet 1 tab, Route: PO, Drug Form: TAB, Dosing Weight 120.6, kg, TID, Start date: 07/30/17 9:00:00 CDT, Stop date: 08/28/17 20:00:00 CDTNotes: Take with milk or food. (Same As: Sinemet) No Longer Active 07/30/2017 [facility] Prednisone 1 MG Oral Tablet 40 mg, 2 tab, Route: PO, Drug form: TAB, Daily, Start date: 07/30/17 9:00:00 CDT, Duration: 1 doses or times, Stop date: 07/30/17 9:00:00 CDTNotes: Take with food. Inactive 07/30/2017 [facility] Saline Flush 0.9% 10 ml, Route: IVP, Drug Form: INJ, Dosing Weight 114.3, kg, Q12H, Start date: 07/30/17 9:00:00 CDT, Duration: 30 day, Stop date: 08/28/17 21:00:00 CDTNotes: (Same as: BD Posiflush) No Longer Active 07/30/2017 [facility] Potassium Chloride 40 mEq, 2 tab, Route: PO, Drug form: ERTAB, TID, Dosing Weight 114.3, kg, Start date: 07/30/17 9:00:00 CDT, Duration: 2 day, Stop date: 07/31/17 17:00:00 CDTNotes: (Same as: K-Dur 20) "Do Not Crush" With food and full glass of water No Longer Active 07/30/2017 [facility] lactulose 10 g/15 mL oral syrup 10 gm, 15 mL, Route: PO, Drug form: SYRP, BID, Dosing Weight 120.6, kg, PRN as needed for constipation, Start date: 07/30/17 9:00:00 CDT, Duration: 30 day, Stop date: 08/28/17 17:00:00 CDTNotes: (Same as:Chronulac) No Longer Active 07/30/2017 [facility] Cordarone 400 mg, 2 tab, Route: PO, Drug form: TAB, TID, Dosing Weight 120.6, kg, Start date: 07/30/17 9:00:00 CDT, Stop date: 08/28/17 20:00:00 CDTNotes: (Same as: Cordarone) No Longer Active 07/30/2017 [facility] Compression Stockings 1 ea, Route: TOP, Dosing Weight 114.3, kg, Daily, Start date: 07/30/17 9:00:00 CDT No Longer Active 07/30/2017 [facility] K-Dur 20 20 mEq, 1 tab, Route: PO, Drug form: ERTAB, BID, Dosing Weight 120.6, kg, Start date: 07/30/17 9:00:00 CDT, Duration: 2 day, Stop date: 07/31/17 17:00:00 CDTNotes: (Same as: K-Dur 20) "Do Not Crush" With food and full glass of water Inactive 07/30/2017 [facility] Protonix 40 mg, 1 tab, Route: PO, Drug form: ECTAB, Before Dinner, Dosing Weight 120.6, kg, Start date: 07/30/17 9:00:00 CDT, Stop date: 08/28/17 16:30:00 CDTNotes: Tablet should not be chewed or crushed. (Same as: Protonix) No Longer Active 07/30/2017 [facility] famotidine 20 mg, 1 tab, Route: PO, Drug form: TAB, Q24H, Dosing Weight 112, kg, Start date: 07/30/17 9:00:00 CDT, Stop date: 08/28/17 11:30:00 CDTNotes: (Same as: Pepcid) No Longer Active 07/30/2017 [facility] Magnesium Sulfate 2 gm, 50 mL, Route: IVPB, Drug form: INJ, Q2H, Dosing Weight 114.3, kg, Total dose=4 gm, Start date: 07/30/17 8:00:00 CDT, Duration: 2 doses or times, Stop date: 07/30/17 10:00:00 CDTNotes: WASTE: F/P - Sink; E - Municipal Trash Bin Inactive 07/30/2017 [facility] tramadol hydrochloride 50 MG Oral Tablet 50 mg, 1 tab, Route: PO, Drug form: TAB, Q4H, Dosing Weight 114.3, kg, PRN Pain Score 6-10, Start date: 07/30/17 7:50:00 CDT, Duration: 30 day, Stop date: 08/29/17 7:49:00 CDTNotes: Not to exceed 400mg/day. (Same As: Ultram) No Longer Active 07/30/2017 [facility] Tramadol 25 mg, 0.5 tab, Route: PO, Drug form: TAB, Q4H, Dosing Weight 114.3, kg, PRN Pain Score 4-6, Start date: 07/30/17 7:50:00 CDT, Duration: 30 day, Stop date: 08/29/17 7:49:00 CDTNotes: Not to exceed 400mg/day. (Same As: Ultram) No Longer Active 07/30/2017 [facility] *ATTN RN please updatw HWA in adhoc *ATTN RN please updatw HWA in adhoc, ATTN RN, Drug form: MISC, Route: MISC, QSHIFT, 07/30/17 0:00:00 CDT, Duration: 30 day, Stop date: 08/28/17 16:00:00 CDT No Longer Active 07/30/2017 [facility] Amlodipine 10 MG / Benazepril hydrochloride 40 MG Oral Capsule [Lotrel 10/40] 1 cap, PO, Daily, 0 Refill(s) No Longer Active 07/30/2017 [facility] Lipitor 10 mg, 1 tab, Route: PO, Drug form: TAB, Bedtime, Dosing Weight 112.6, kg, Start date: 07/29/17 22:00:00 CDT, Duration: 30 day, Stop date: 08/28/17 21:00:00 CDTNotes: (Same As: Lipitor) No Longer Active 07/30/2017 [facility] Lopressor 50 mg, 1 tab, Route: PO, Drug form: TAB, Q12H, Dosing Weight 120.6, kg, Start date: 07/29/17 22:00:00 CDT, Stop date: 08/28/17 21:00:00 CDTNotes: (Same as: Lopressor) No Longer Active 07/30/2017 [facility] Solu-CORTEF 25 mg, 0.5 mL, Route: IV, Drug form: PDR/INJ, Q12H, Dosing Weight 120.6, kg, Start date: 07/29/17 22:00:00 CDT, Duration: 30 day, Stop date: 08/28/17 21:00:00 CDTNotes: (Same as: Solu-CORTEF) No Longer Active 07/30/2017 [facility] nitroglycerin 0.4 mg sublingual tablet 0.4 mg, 1 tab, Route: SL, Drug form: TAB, Q5Min, Dosing Weight 112.6, kg, PRN Chest Pain, Start date: 07/29/17 21:40:00 CDT, Duration: 30 day, Stop date: 08/28/17 21:39:00 CDTNotes: (Same as:Nitroquick, Nitrostat) "Do Not Crush" Sublingual tablet No Longer Active 07/30/2017 [facility] glucagon 1 mg, Route: IM, Drug form: PDR/INJ, PRN, Dosing Weight 120.6, kg, PRN Blood Glucose Results, Start date: 07/29/17 21:32:00 CDT, Duration: 30 day, Stop date: 08/28/17 21:31:00 CDT No Longer Active 07/30/2017 [facility] Flexeril 10 mg, 1 tab, Route: PO, Drug form: TAB, TID, Dosing Weight 112.6, kg, PRN Spasm, Start date: 07/29/17 21:30:00 CDT, Duration: 30 day, Stop date: 08/28/17 21:29:00 CDTNotes: (Same As: Flexeril) No Longer Active 07/30/2017 [facility] DuoNeb inhalation solution 3 ml, Route: NEB, Drug Form: SOLN, Dosing Weight 112.6, kg, PRN, PRN Respiratory Protocol, Start date: 07/29/17 21:29:00 CDT, Duration: 30 day, Stop date: 08/28/17 21:28:00 CDTNotes: (Same as: Duoneb) No Longer Active 07/30/2017 [facility] albuterol 0.083% inhalation solution 2.49 mg, 3 mL, Route: NEB, Drug form: SOLN, Q6H, Dosing Weight 112.6, kg, PRN as needed for wheezing, Start date: 07/29/17 21:24:00 CDT, Duration: 30 day, Stop date: 08/28/17 21:23:00 CDTNotes: SEE RT DOCUMENTATION (Same as: Proventil) No Longer Active 07/30/2017 [facility] acetaminophen-hydrocodone 325 mg-5 mg oral tablet 2 tab, Route: PO, Drug Form: TAB, Dosing Weight 112.6, kg, Q4H, PRN Pain Score 4-6, Start date: 07/29/17 21:24:00 CDT, Duration: 30 day, Stop date: 08/28/17 21:23:00 CDTNotes: (Same as: [place] 325/5) Do not exceed 4gm/day of acetaminophen. No Longer Active 07/30/2017 [facility] Tylenol 1,000 mg, 31.23 mL, Route: NG, Drug form: LIQ, Q6H, Dosing Weight 120.6, kg, PRN For Temp > 101 F, Start date: 07/29/17 21:23:00 CDT, Duration: 30 day, Stop date: 08/28/17 21:22:00 CDT No Longer Active 07/30/2017 [facility] Saline Flush 0.9% 10 ml, Route: IVP, Drug Form: INJ, Dosing Weight 114.3, kg, PRN, PRN Line Flush, Start date: 07/29/17 21:16:00 CDT, Duration: 30 day, Stop date: 08/28/17 21:15:00 CDTNotes: (Same as: BD Posiflush) No Longer Active 07/30/2017 [facility] Trazodone 50 mg, 1 tab, Route: PO, Drug form: TAB, Bedtime, Dosing Weight 114.3, kg, PRN Insomnia, Start date: 07/29/17 21:16:00 CDT, Duration: 30 day, Stop date: 08/28/17 21:15:00 CDTNotes: (Same As: Desyrel) No Longer Active 07/30/2017 [facility] clopidogrel 75 MG Oral Tablet [Plavix] 75 mg=1 tab, PO, Daily, # 30 tab, 0 Refill(s), other No Longer Active 07/29/2017 [facility] Carbidopa 25 MG / Levodopa 100 MG Oral Tablet [Sinemet 25-100] 1 tab, NG, TID, 0 Refill(s) No Longer Active 07/29/2017 [facility] atorvastatin 10 mg oral tablet 10 mg=1 tab, PO, Bedtime, 0 Refill(s) No Longer Active 07/29/2017 [facility] AMIODarone 200 mg oral tablet 400 mg=2 tab, OGT, TID, 0 Refill(s) No Longer Active 07/29/2017 [facility] thiamine 100 mg/mL injectable solution 100 mg=1 mL, IVP, Daily, 0 Refill(s) No Longer Active 07/29/2017 [facility] QUEtiapine 25 mg oral tablet 12.5 mg=0.5 tab, PO, Q6H, PRN Anxiety, 0 Refill(s) No Longer Active 07/29/2017 [facility] potassium chloride 20 mEq oral tablet, extended release 20 mEq=1 tab, PO, BID, 0 Refill(s) No Longer Active 07/29/2017 [facility] metoprolol tartrate 50 mg oral tablet 50 mg=1 tab, PO, Q12H, 0 Refill(s) No Longer Active 07/29/2017 [facility] Furosemide 40 MG Oral Tablet [Lasix] 40 mg=1 tab, PO, BID, 0 Refill(s) No Longer Active 07/29/2017 [facility] Potassium Chloride 40 mEq, 2 tab, Route: PO, Drug form: ERTAB, Q1H, Dosing Weight 120.6, kg, Start date: 07/29/17 9:00:00 CDT, Duration: 2 doses or times, Stop date: 07/29/17 10:00:00 CDTNotes: (Same as: K- Dur 20) "Do Not Crush" With food and full glass of water Inactive 07/29/2017 [facility] Magnesium Sulfate 2 gm, 50 mL, Route: IVPB, Drug form: INJ, ONCE, Dosing Weight 120.6, kg, Total dose=2 gm, Start date: 07/29/17 8:33:00 CDT, Stop date: 07/29/17 8:33:00 CDTNotes: WASTE: F/P - Sink; E - Municipal Trash Bin Inactive 07/29/2017 [facility] Calcium Gluconate 1,000 mg, 10 mL, Route: IVPB, ONCE, Dosing Weight 120.6, kg, Start date: 07/29/17 8:27:00 CDT, Stop date: 07/29/17 8:27:00 CDTNotes: WASTE: F/P - Sink; E - Municipal Trash Bin Inactive 07/29/2017 [facility] Valium 5 mg, 1 mL, Route: IVP, Drug form: INJ, ONCE, Dosing Weight 120.6, kg, PRN Procedure, Start date: 07/28/17 14:09:00 CDT, give prior to MRINotes: WASTE: F/P - Black; E - White/Blue Inactive 07/28/2017 [facility] Calcium Carbonate 1,000 mg, 2 tab, Route: PO, Drug form: CHEWTAB, Daily, Dosing Weight 120.6, kg, Start date: 07/28/17 9:00:00 CDT, Duration: 30 day, Stop date: 08/26/17 9:00:00 CDTNotes: (Same As: Roxy) Calcium Carbonate 500 it=730 mg elemental calcium Dose= mg calcium carbonate ( mg elemental calcium) No Longer Active 07/28/2017 [facility] Protonix 40 mg, 1 tab, Route: PO, Drug form: ECTAB, Daily, Dosing Weight 120.6, kg, Start date: 07/28/17 9:00:00 CDT, Stop date: 08/27/17 9:00:00 CDTNotes: Tablet should not be chewed or crushed. (Same as: Protonix) No Longer Active 07/28/2017 [facility] Ativan 1 mg, 0.5 mL, Route: IVP, Drug form: INJ, ONCE, Dosing Weight 120.6, kg, PRN Anxiety, Start date: 07/28/17 7:00:00 CDTNotes: (Same as: Ativan) No Longer Active 07/28/2017 [facility] Seroquel 12.5 mg, 0.5 tab, Route: PO, Drug form: TAB, Q6H, Dosing Weight 120.6, kg, PRN Anxiety, Start date: 07/27/17 20:41:00 CDT, Duration: 30 day, Stop date: 08/26/17 20:40:00 CDTNotes: (Same as: SEROquel) No Longer Active 07/28/2017 [facility] potassium chloride 20 mEq oral tablet, extended release 40 mEq, 2 tab, Route: PO, Drug form: ERTAB, ONCE, Dosing Weight 120.6, kg, Start date: 07/27/17 16:46:00 CDT, Stop date: 07/27/17 16:46:00 CDT Inactive 07/27/2017 [facility] Furosemide 40 MG Oral Tablet [Lasix] 40 mg, 1 tab, Route: PO, Drug form: TAB, BID, Dosing Weight 120.6, kg, Start date: 07/27/17 9:00:00 CDT, Duration: 30 day, Stop date: 08/25/17 17:00:00 CDTNotes: (Same as: Lasix) May cause GI upset. Give with food or milk. No Longer Active 07/27/2017 [facility] Potassium Chloride 20 mEq, 1 tab, Route: PO, Drug form: ERTAB, BID, Dosing Weight 120.6, kg, Start date: 07/27/17 9:00:00 CDT, Duration: 30 day, Stop date: 08/25/17 17:00:00 CDTNotes: (Same as: K-Dur 20) "Do Not Crush" With food and full glass of water No Longer Active 07/27/2017 [facility] Potassium Chloride 40 mEq, 2 tab, Route: PO, Drug form: ERTAB, ONCE, Dosing Weight 120.6, kg, Start date: 07/27/17 8:56:00 CDT, Stop date: 07/27/17 8:56:00 CDTNotes: (Same as: K-Dur 20) "Do Not Crush" With food and full glass of water Inactive 07/27/2017 [facility] Ceftriaxone 1 gm, Route: IVP, [id number], Dosing Weight 120.6, kg, Start date: 07/27/17 8:00:00 CDT, Duration: 2 day, Stop date: 07/28/17 8:00:00 CDT, ABX Indication: BacteremiaNotes: (Same As: Rocephin). Use with 100 mL NS and infuse over 30 min MEDICATION WASTE Product Size: 1000 mg Product Wasted: ___ mg No Longer Active 07/27/2017 [facility] Lopressor 50 mg, 1 tab, Route: PO, Drug form: TAB, Q12H, Dosing Weight 120.6, kg, Start date: 07/26/17 21:00:00 CDT, Stop date: 08/26/17 21:00:00 CDTNotes: (Same as: Lopressor) No Longer Active 07/27/2017 [facility] Hydrocortisone 25 mg, 0.5 mL, Route: IV, Drug form: PDR/INJ, Q12H, Dosing Weight 120.6, kg, Start date: 07/26/17 21:00:00 CDT, Duration: 30 day, Stop date: 08/25/17 9:00:00 CDTNotes: (Same as: Solu-CORTEF) No Longer Active 07/27/2017 [facility] Aldactone 25 mg, 1 tab, Route: PO, Drug form: TAB, ONCE, Dosing Weight 120.6, kg, Start date: 07/26/17 15:44:00 CDT, Stop date: 07/26/17 15:44:00 CDTNotes: (Same As: Aldactone) Inactive 07/26/2017 [facility] Amiloride 5 mg, Route: PO, Drug form: TAB, ONCE, Dosing Weight 120.6, kg, Start date: 07/26/17 12:52:00 CDT, Stop date: 07/26/17 12:52:00 CDT Inactive 07/26/2017 [facility] Metoprolol 5 mg, 5 mL, Route: IVP, Drug form: INJ, Q6H, Dosing Weight 120.6, kg, Start date: 07/26/17 12:00:00 CDT, Duration: 30 day, Stop date: 08/25/17 6:00:00 CDTNotes: (Same as: Lopressor) Push over 2 minutes Inactive 07/26/2017 [facility] Seroquel 50 mg, 2 tab, Route: PO, Drug form: TAB, Q12H, Dosing Weight 120.6, kg, PRN Agitation, Start date: 07/26/17 9:42:00 CDT, Duration: 30 day, Stop date: 08/25/17 9:41:00 CDTNotes: (Same as: SEROquel) No Longer Active 07/26/2017 [facility] Hydrocortisone 50 mg, 1 mL, Route: IV, Drug form: PDR/INJ, Q12H, Dosing Weight 120.6, kg, Start date: 07/25/17 21:00:00 CDT, Duration: 30 day, Stop date: 08/24/17 9:00:00 CDTNotes: (Same as: Solu-CORTEF) No Longer Active 07/26/2017 [facility] Saline Flush 0.9% 10 ml, Route: IVP, Drug Form: INJ, Dosing Weight 120.6, kg, Q12H, Start date: 07/25/17 21:00:00 CDT, Duration: 30 day, Stop date: 08/24/17 9:00:00 CDTNotes: (Same as: BD Posiflush) No Longer Active 07/26/2017 [facility] Saline Flush 0.9% 10 ml, Route: IVP, Drug Form: INJ, Dosing Weight 120.6, kg, PRN, PRN Line Flush, Start date: 07/25/17 17:47:00 CDT, Duration: 30 day, Stop date: 08/24/17 17:46:00 CDTNotes: (Same as: BD Posiflush) No Longer Active 07/25/2017 [facility] Insulin Lispro 3 unit, 0.03 mL, Route: [...] days from Date No Longer Active 07/25/2017 [facility] Dextrose 50% Syringe 12.5 gm, 25 mL, Route: IVP, Drug Form: INJ, Dosing Weight 120.6, kg, PRN, PRN Blood Glucose Results, Start date: 07/25/17 16:04:00 CDT, Duration: 30 day, Stop date: 08/24/17 16:03:00 CDT No Longer Active 07/25/2017 [facility] Glucagon 1 mg, Route: IM, Drug form: PDR/INJ, PRN, Dosing Weight 120.6, kg, PRN Blood Glucose Results, Start date: 07/25/17 16:04:00 CDT, Duration: 30 day, Stop date: 08/24/17 16:03:00 CDT No Longer Active 07/25/2017 [facility] D5W 1,000 mL 1,000 mL, Rate: 40 ml/hr, Infuse over: 25 hr, Route: IV, Dosing Weight 120.6 kg, Total Volume: 1,000, Start date: 07/25/17 14:08:00 CDT, Duration: 30 day, Stop date: 08/24/17 14:07:00 CDT, 2.58, m2 No Longer Active 07/25/2017 [facility] Amiodarone 400 mg, 2 tab, Route: OGT, Drug form: TAB, TID, Dosing Weight 120.6, kg, Start date: 07/24/17 9:00:00 CDT, Duration: 30 day, Stop date: 08/22/17 17:00:00 CDTNotes: (Same as: Cordarone) No Longer Active 07/24/2017 [facility] Furosemide 100 mg, 10 mL, Rate: 5 mg/hour, Dosing Weight 120.6, kg, Route: IV, Total Volume: 100, Priority: STAT, Start Date: 07/23/17 12:20:00 REPRESENTATIVE PERSONAL SERVICE, Stop date: 08/22/17 12:19:00 CDT, Replace Every: 20 hr, continuo usNotes: (Same as: Lasix) MEDICATION WASTE Product Size: 100 mg Product Wasted: ___ mg No Longer Active 07/23/2017 [facility] Thiamine 100 mg, 1 mL, Route: IVP, Drug form: INJ, Daily, Dosing Weight 120.6, kg, Start date: 07/23/17 9:00:00 REPRESENTATIVE PERSONAL SERVICE, Duration: 30 day, Stop date: 08/21/17 9:00:00 CDTNotes: (Same As: Vitamin B1) No Longer Active 07/23/2017 [facility] Ativan 1 mg, 0.5 mL, Route: IVP, Drug form: INJ, Q6H, Dosing Weight 120.6, kg, PRN Anxiety, Start date: 07/22/17 17:09:00 REPRESENTATIVE PERSONAL SERVICE, Duration: 30 day, Stop date: 08/21/17 17:08:00 CDTNotes: (Same as: Ativan) No Longer Active 07/22/2017 [facility] Carbidopa 25 MG / Levodopa 100 MG Oral Tablet [Sinemet 25-100] 1 tab, Route: NG, Drug Form: TAB, Dosing Weight 120.6, kg, TID, Start date: 07/22/17 17:00:00 REPRESENTATIVE PERSONAL SERVICE, Duration: 30 day, Stop date: 08/21/17 13:00:00 CDTNotes: Take with milk or food. (Same As: Sinemet) No Longer Active 07/22/2017 [facility] Hydrocortisone 50 mg, 1 mL, Route: IV, Drug form: PDR/INJ, Q6Hnow, Dosing Weight 120.6, kg, Priority: STAT, Start date: 07/22/17 13:49:00 REPRESENTATIVE PERSONAL SERVICE, Duration: 30 day, Stop date: 08/21/17 9:00:00 CDTNotes: (Same as: Solu- CORTEF) No Longer Active 07/22/2017 [facility] Lasix 40 mg, 4 mL, Route: IVP, Drug form: INJ, Q8H, Dosing Weight 120.6, kg, Start date: 07/21/17 16:00:00 REPRESENTATIVE PERSONAL SERVICE, Duration: 30 day, Stop date: 08/20/17 8:00:00 CDTNotes: (Same as: Lasix) MEDICATION WASTE Product Size: 40 mg Product Wasted: _0__ mg No Longer Active 07/21/2017 [facility] AMIODarone 900 mg in D5W 500 ml IV 900 mg + Dextrose 5% in Water IV 482 mL 900 mg, 18 mL, Rate: 1 mg/min for 6 hours, then reduce to 0.5 mg/min, Dosing Weight 120.6, kg, Route: IV, Total Volume: 500, Start Date: 07/21/17 12:54:00 REPRESENTATIVE PERSONAL SERVICE, Duration: 30 day, Stop date: 08/20/17 12:53:00 CDT, Replace Every: 24 hrNotes: Central administration only for concentration > 2 mg/ml. Use Glass Bottle or Non PVC Bag "Use 0.22 micron in-line filter" MEDICATION WASTE Product Size: 900 mg Product Wasted: ___ mg No Longer Active 07/21/2017 [facility] Amiodarone 150 mg, 3 mL, Route: IVPB, Drug form: INJ, ONCE, Dosing Weight 120.6, kg, Start date: 07/21/17 12:54:00 REPRESENTATIVE PERSONAL SERVICE, Stop date: 07/21/17 12:54:00 CSTNotes: Central administration only for concentrations > 2 mg/ml. "Recommendation: Use an in-line filter during administration for continuous infusions to reduce the incidence of phlebitis" (Same as Codarone) MEDICATION WASTE Product Size: 150 mg Product Wasted: ___ mg Inactive 07/21/2017 [facility] Magnesium Sulfate 2 gm, Route: IVPB, Drug form: INJ, PRN, Dosing Weight 120.6, kg, PRN Abnormal Lab Result, Start date: 07/21/17 11:24:00 REPRESENTATIVE PERSONAL SERVICE, Duration: 30 day, Stop date: 08/20/17 12:23:00 CDT, FOR ICU USE ONLY Inactive 07/21/2017 [facility] Magnesium Sulfate 2 gm, Route: IVPB, Drug form: INJ, PRN, Dosing Weight 120.6, kg, PRN Abnormal Lab Result, Start date: 07/21/17 11:23:00 REPRESENTATIVE PERSONAL SERVICE, Duration: 30 day, Stop date: 08/20/17 12:22:00 CDT, FOR ICU USE ONLY Inactive 07/21/2017 [facility] Magnesium Sulfate 2 gm, 50 mL, Route: IVPB, Drug form: INJ, PRN, Dosing Weight 120.6, kg, PRN Abnormal Lab Result, Start date: 07/21/17 11:22:00 REPRESENTATIVE PERSONAL SERVICE, Duration: 30 day, Stop date: 08/20/17 12:21:00 CDT, FOR ICU USE ONLYNotes: WASTE: F/P - Sink; E - [employer] Trash Bin No Longer Active 07/21/2017 [facility] heparin additive 25,000 unit [14 unit/kg/hr] + Premix Diluent Dextrose 5% 500 mL 500 mL, Rate: 29.96 ml/hr, Infuse over: 16.7 hr, Route: IV, Dosing Weight 107 kg, Total Volume: 500 mL, Start date: 07/21/17 10:06:00 REPRESENTATIVE PERSONAL SERVICE, Duration: 30 day, Stop date: 08/20/17 10:05:00 CDT, 2.43, m2 No Longer Active 07/21/2017 [facility] Calcium Carbonate 500 MG Chewable Tablet 1,000 mg, 2 tab, Route: PO, Drug form: CHEWTAB, PRN, Dosing Weight 120.6, kg, PRN Abnormal Lab Result, FOR ICU USE ONLY, Start date: 07/21/17 7:01:00 REPRESENTATIVE PERSONAL SERVICE, Duration: 30 day, Stop date: 08/20/17 8:00:00 CDTNotes: (Same As: Tums) Calcium Carbonate 500 dy=192 mg elemental calcium Dose= mg calcium carbonate ( mg elemental calcium) No Longer Active 07/21/2017 [facility] Calcium Gluconate 1 gm, 10 mL, Route: IVPB, PRN, Dosing Weight 120.6, kg, PRN Abnormal Lab Result, Start date: 07/21/17 7:01:00 REPRESENTATIVE PERSONAL SERVICE, Duration: 30 day, Stop date: 08/20/17 8:00:00 CDT, FOR ICU USE ONLYNotes: WASTE: F/P - Sink; E - [employer] Trash Bin No Longer Active 07/21/2017 [facility] Magnesium Oxide 800 mg, 2 tab, Route: PO, Drug form: TAB, PRN, Dosing Weight 120.6, kg, PRN Abnormal Lab Result, FOR ICU USE ONLY, Start date: 07/21/17 7:01:00 REPRESENTATIVE PERSONAL SERVICE, Duration: 30 day, Stop date: 08/20/17 8:00:00 CDTN otes: (Same as: Mag-Ox 400) Magnesium oxide [id number] elemental magnesium Dose=____mg magnesium oxide (___mg elemental magnesium) No Longer Active 07/21/2017 [facility] Magnesium Sulfate 2 gm, 50 mL, Route: IVPB, Drug form: INJ, PRN, Dosing Weight 120.6, kg, PRN Abnormal Lab Result, Start date: 07/21/17 7:01:00 REPRESENTATIVE PERSONAL SERVICE, Duration: 30 day, Stop date: 08/20/17 8:00:00 CDT, FOR ICU USE ONLYNotes: WASTE: F/P - Sink; E - [employer] Trash Bin Inactive 07/21/2017 [facility] potassium phosphate-sodium phosphate 250 mg-280 mg-160 mg oral powder for reconstitution 2 pkt, Route: PO, Drug Form: PDR/REC, Dosing Weight 120.6, kg, PRN, PRN Abnormal Lab Result, FOR ICU USE ONLY, Start date: 07/21/17 7:01:00 REPRESENTATIVE PERSONAL SERVICE, Duration: 30 day, Stop date: 08/20/17 8:00:00 CDTNotes: (Same as: Phos-NaK) Each 1.5 gm pkt has 250mg phosphorous. Mix w/2.5oz water and stir. No Longer Active 07/21/2017 [facility] potassium phosphate 45 mmol, 15 mL, Route: IVPB, PRN, Dosing Weight 120.6, kg, PRN Abnormal Lab Result, Start date: 07/21/17 7:01:00 REPRESENTATIVE PERSONAL SERVICE, Duration: 30 day, Stop date: 08/20/17 8:00:00 CDT, FOR ICU USE ONLYNotes: (Same as: K Phosphate.) 1 mMol phoshate has 1.47 mEq potassium Infuse over 4 hours No Longer Active 07/21/2017 [facility] sodium phosphate 45 mmol, 15 mL, Route: IVPB, PRN, Dosing Weight 120.6, kg, PRN Abnormal Lab Result, Start date: 07/21/17 7:01:00 REPRESENTATIVE PERSONAL SERVICE, Duration: 30 day, Stop date: 08/20/17 8:00:00 CDT, FOR ICU USE ONLY No Longer Active 07/21/2017 [facility] Potassium Chloride 20 mEq, 15 mL, Route: NJ, Drug form: LIQ, PRN, Dosing Weight 120.6, kg, PRN Abnormal Lab Result, Start date: 07/21/17 7:01:00 REPRESENTATIVE PERSONAL SERVICE, Duration: 30 day, Stop date: 08/20/17 8:00:00 CDT, FOR ICU USE ONLYNotes: (Same as: Potassium Chloride) No Longer Active 07/21/2017 [facility] Potassium Chloride 1.33 MEQ/ML Oral Solution 20 mEq, 15 mL, Route: PO, Drug form: LIQ, ONCE, Dosing Weight 120.6, kg, Start date: 07/21/17 6:35:00 REPRESENTATIVE PERSONAL SERVICE, Stop date: 07/21/17 6:35:00 CSTNotes: (Same as: Potassium Chloride) Inactive 07/21/2017 [facility] Potassium Chloride 20 mEq, 10 mL, Route: IVPB, ONCE, Dosing Weight 120.6, kg, Start date: 07/21/17 6:35:00 REPRESENTATIVE PERSONAL SERVICE, Stop date: 07/21/17 6:35:00 CSTNotes: MUST be Diluted before use (Same as: KCl) MEDICATION WASTE Product Size: 40 mEq Product Wasted: 20 mEq Inactive 07/21/2017 [facility] Lasix 40 mg, 4 mL, Route: IVP, Drug form: INJ, BID Diuretic, Dosing Weight 120.6, kg, Start date: 07/20/17 21:00:00 [employer]ENT[employer]ERSON[employer], Duration: 30 day, Stop date: 08/19/17 9:00:00 CDTNotes: (Same as: Lasix) MEDICATION WASTE Product Size: 40 mg Product Wasted: _0__ mg No Longer Active 07/21/2017 [facility] Digoxin 0.125 mg, 0.5 mL, Route: IVP, Drug form: INJ, ONCE, Dosing Weight 120.6, kg, Start date: 07/20/17 19:29:00 REPRESENT[employer]IVE [employer]ERSON[employer]ICE, Stop date: 07/20/17 19:29:00 CSTNotes: (Same as: Lanoxin) Inactive 07/21/2017 [facility] Lopressor 5 mg, 5 mL, Route: IVP, Drug form: INJ, Q6H, Dosing Weight 120.6, kg, Start date: 07/20/17 18:00:00 REPRESENT[employer]IVE [employer]ERSON[employer]ICE, Duration: 30 day, Stop date: 08/19/17 12:00:00 CDTNotes: (Same as: Lopressor) Push over 2 minutes No Longer Active 07/21/2017 [facility] Potassium Chloride 20 mEq, 10 mL, Route: IVPB, Q2H, Dosing Weight 120.6, kg, Total dose=60 mEq, Start date: 07/20/17 18:00:00 REPRESENT[employer]IVE [employer]ERSON[employer]ICE, Duration: 3 doses or times, Stop date: 07/20/17 22:00:00 REPRESENTATIVE PERSONAL SERVICE, Central LineNotes: MUST be Diluted before use (Same as: KCl) MEDICATION WASTE Product Size: 40 mEq Product Wasted: ___ mEq Inactive 07/21/2017 [facility] Seroquel 50 mg, 2 tab, Route: PO, Drug form: TAB, Q12H, Dosing Weight 120.6, kg, Start date: 07/20/17 17:34:00 REPRESENTATIVE PERSONAL SERVICE, Duration: 30 day, Stop date: 08/19/17 9:00:00 CDTNotes: (Same as: SEROquel) No Longer Active 07/20/2017 [facility] Digoxin 0.25 mg, 1 mL, Route: IVP, Drug form: INJ, ONCE, Dosing Weight 120.6, kg, Start date: 07/20/17 15:03:00 REPRESENTATIVE PERSONAL SERVICE, Stop date: 07/20/17 15:03:00 CSTNotes: (Same as: Lanoxin) Inactive 07/20/2017 [facility] morphine Sulfate 12 mg, 6 mL, Route: PO, Drug form: SOLN, Q1H, PRN Pain Score 7-10, Start date: 07/20/17 14:59:00 REPRESENTATIVE PERSONAL SERVICE, Duration: 30 day, Stop date: 08/19/17 15:58:00 CDTNotes: (Same as:MORPhine Sulfate) No Longer Active 07/20/2017 [facility] morphine Sulfate 6 mg, 3 mL, Route: PO, Drug form: SOLN, Q1H, PRN Pain Score 4-6, Start date: 07/20/17 14:58:00 REPRESENTATIVE PERSONAL SERVICE, Duration: 30 day, Stop date: 08/19/17 15:57:00 CDTNotes: (Same as:MORPhine Sulfate) No Longer Active 07/20/2017 [facility] Lasix 20 mg, Route: IVP, Drug form: INJ, ONCE, Dosing Weight 120.6, kg, Start date: 07/20/17 11:02:00 REPRESENTATIVE PERSONAL SERVICE, Stop date: 07/20/17 11:02:00 REPRESENTATIVE PERSONAL SERVICE Inactive 07/20/2017 [facility] albumin human 25% intravenous solution 12.5 gm, 50 mL, Route: IVPB, Drug form: INJ, ONCE, Dosing Weight 120.6, kg, Start date: 07/20/17 11:01:00 REPRESENTATIVE PERSONAL SERVICE, Stop date: 07/20/17 11:01:00 CSTNotes: LOT#: Mfg: WASTE: F/P - Red; E -Red (Same as: Albuminar) "blood product derivative" Inactive 07/20/2017 [facility] Ceftriaxone 1 gm, Route: IV, Drug form: PDR/INJ, PHAE20H, Dosing Weight 120.6, kg, Start date: 07/20/17 10:00:00 REPRESENTATIVE PERSONAL SERVICE, Duration: 7 day, Stop date: 07/26/17 22:00:00 CDT, ABX Indication: BacteremiaNotes: (Same As: Kimberly rausch). MEDICATION WASTE Product Size: 1000 mg Product Wasted: _0__ mg No Longer Active 07/20/2017 [facility] Potassium Chloride 20 mEq, 10 mL, Route: IVPB, Q1H, Dosing Weight 120.6, kg, Total dose=40 mEq, Start date: 07/20/17 9:00:00 REPRESENTATIVE PERSONAL SERVICE, Duration: 2 doses or times, Stop date: 07/20/17 10:00:00 CSTNotes: MUST be Diluted before use (Same as: KCl) MEDICATION WASTE Product Size: 40 mEq Product Wasted: _20__ mEq Inactive 07/20/2017 [facility] Vancomycin 1,000 mg, Route: IVPB, ONCE, Dosing Weight 120.6, kg, Start date: 07/19/17 18:00:00 REPRESENTATIVE PERSONAL SERVICE, Stop date: 07/19/17 18:00:00 REPRESENTATIVE PERSONAL SERVICE, ABX Indication: BacteremiaNotes: TIME CRITICAL MEDICATION (Same As: Vancocin) Infusion rate 2001 mg: infuse over 2.5 hours For adult patients only: Round to nearest 250 mg per Medical Staff approval MEDICATION WASTE Product Size: 1000 mg Product Wasted: ___ mg Inactive 07/20/2017 [facility] heparin sodium, porcine 2500 UNT/ML Injectable Solution 5,000 unit, 1 mL, Route: SUB-Q, Drug form: INJ, Q8H, Dosing Weight 120.6, kg, Start date: 07/19/17 16:00:00 REPRESENTATIVE PERSONAL SERVICE, Duration: 30 day, Stop date: 08/18/17 8:00:00 CDTNotes: porcine heparin No Longer Active 07/19/2017 [facility] Lactulose 667 MG/ML Oral Solution 10 gm, 15 mL, Route: PO, Drug form: SYRP, BID, Dosing Weight 120.6, kg, Start date: 07/18/17 17:00:00 REPRESENTATIVE PERSONAL SERVICE, Duration: 30 day, Stop date: 08/17/17 9:00:00 CDTNotes: (Same as:Chronulac) No Longer Active 07/18/2017 [facility] Miralax 17 gm, 1 pkt, Route: PO, Drug form: PWDR, BID, Dosing Weight 120.6, kg, Start date: 07/18/17 17:00:00 REPRESENTATIVE PERSONAL SERVICE, Duration: 30 day, Stop date: 08/17/17 9:00:00 CDTNotes: Dissolve in 8 oz of water or juice. (Same as: Miralax) No Longer Active 07/18/2017 [facility] Acetaminophen 1,000 mg, 31.23 mL, Route: NG, Drug form: LIQ, Q6H, Dosing Weight 120.6, kg, PRN For Temp > 101 F, Start date: 07/18/17 12:02:00 REPRESENTATIVE PERSONAL SERVICE, Duration: 30 day, Stop date: 08/17/17 12:01:00 CDT No Longer Active 07/18/2017 [facility] Mannitol 12.5 gm, 50 mL, Route: IVPB, Drug form: INJ, ONCE, Dosing Weight 120.6, kg, Start date: 07/18/17 10:26:00 REPRESENTATIVE PERSONAL SERVICE, Stop date: 07/18/17 10:26:00 CSTNotes: (Same as: Osmitrol) WASTE: F/P - Sink; E - Municipal Trash Bin Inactive 07/18/2017 [facility] Digoxin 250 microgram, 1 mL, Route: IV, Drug form: INJ, ONCE, Dosing Weight 120.6, kg, Start date: 07/18/17 9:47:00 REPRESENTATIVE PERSONAL SERVICE, Stop date: 07/18/17 9:47:00 CSTNotes: (Same as: Lanoxin) Inactive 07/18/2017 [facility] Lopressor 5 mg, 5 mL, Route: IVP, Drug form: INJ, Q6H, Dosing Weight 120.6, kg, PRN Tachycardia, Start date: 07/18/17 9:47:00 REPRESENTATIVE PERSONAL SERVICE, Duration: 30 day, Stop date: 08/17/17 9:46:00 CDT, hr >120Notes: (Same as: Lop ressor) Push over 2 minutes No Longer Active 07/18/2017 [facility] vancomycin + Sodium Chloride 0.9% IV 250 mL 1,000 mg, Route: IVPB, ONCE, Start date: 07/17/17 14:00:00 REPRESENTATIVE PERSONAL SERVICE, Stop date: 07/17/17 14:00:00 REPRESENTATIVE PERSONAL SERVICE, ABX Indication: BacteremiaNotes: TIME CRITICAL MEDICATION (Same As: Vancocin) Infusion rate 2001 mg: infuse over 2.5 hours For adult patients only: Round to nearest 250 mg per Medical Staff approval MEDICATION WASTE Product Size: 1000 mg Product Wasted: ___ mg Inactive 07/17/2017 [facility] heparin 5,000 unit, 5 mL, Route: DIALYSIS, Drug form: INJ, ONCE, Dosing Weight 120.6, kg, Start date: 07/17/17 12:55:00 REPRESENTATIVE PERSONAL SERVICE, Stop date: 07/17/17 12:55:00 REPRESENTATIVE PERSONAL SERVICE Inactive 07/17/2017 [facility] heparin sodium, porcine 2500 UNT/ML Injectable Solution 5,000 unit, 5 mL, Route: DIALYSIS, Drug form: INJ, ONCE, Dosing Weight 120.6, kg, Start date: 07/17/17 11:55:00 REPRESENTATIVE PERSONAL SERVICE, Stop date: 07/17/17 11:55:00 REPRESENTATIVE PERSONAL SERVICE Inactive 07/17/2017 [facility] calcium chloride + Sodium Chloride 0.9% IV 50 mL 1,000 mg, 10 mL, Route: IVPB, Drug form: INJ, ONCE, Dosing Weight 120.6, kg, Start date: 07/17/17 8:19:00 REPRESENTATIVE PERSONAL SERVICE, Stop date: 07/17/17 8:19:00 REPRESENTATIVE PERSONAL SERVICE Inactive 07/17/2017 [facility] sodium bicarbonate 8.4% 150 mEq + Dextrose 5% in Water IV 1,000 mL 1,000 mL, Rate: 100 ml/hr, Infuse over: 11.5 hr, Route: IV, Dosing Weight 120.6 kg, Total Volume: 1,150, Start date: 07/17/17 7:03:00 REPRESENTATIVE PERSONAL SERVICE, Duration: 30 day, Stop date: 08/16/17 7:02:00 CDT, 2.58, m2 No Longer Active 07/17/2017 [facility] Insulin regular 12 unit, Route: SUB-Q, ONCE, Dosing Weight 120.6, kg, Start date: 07/17/17 7:03:00 REPRESENTATIVE PERSONAL SERVICE, Stop date: 07/17/17 7:03:00 REPRESENTATIVE PERSONAL SERVICE Inactive 07/17/2017 [facility] Bumex 3 mg, 12 mL, Route: IV, Drug form: INJ, ONCE, Dosing Weight 120.6, kg, Priority: STAT, Start date: 07/17/17 7:03:00 REPRESENTATIVE PERSONAL SERVICE, Stop date: 07/17/17 7:03:00 CSTNotes: (Same As: Bumex) Inactive 07/17/2017 [facility] d50 syringe Route: IVP, Dosing Weight 120.6, kg, ONCE, Start date: 07/17/17 7:03:00 REPRESENTATIVE PERSONAL SERVICE, Stop date: 07/17/17 7:03:00 REPRESENTATIVE PERSONAL SERVICE Inactive 07/17/2017 [facility] Calcium Chloride 1,000 mg, 10 mL, Route: IVPB, Drug form: INJ, ONCE, Dosing Weight 120.6, kg, Start date: 07/17/17 7:03:00 REPRESENTATIVE PERSONAL SERVICE, Stop date: 07/17/17 7:03:00 REPRESENTATIVE PERSONAL SERVICE Inactive 07/17/2017 [facility] Sodium Chloride 0.9% (Bolus) IV 1,000 mL, 1,000 ml/hr, Infuse Over: 1 hr, Route: IV, ONCE, Priority: STAT, Dosing Weight 120.6 kg, Start date: 07/17/17 7:03:00 REPRESENTATIVE PERSONAL SERVICE, Stop date: 07/17/17 7:03:00 REPRESENTATIVE PERSONAL SERVICE Inactive 07/17/2017 [facility] AMIODarone 900 mg in D5W 500 ml IV 900 mg + Dextrose 5% in Water IV 482 mL 900 mg, 18 mL, Rate: 1 mg/min for 6 hours, then reduce to 0.5 mg/min, Dosing Weight 113.4, kg, Route: IV, Total Volume: 500, Start Date: 07/17/17 5:23:00 REPRESENTATIVE PERSONAL SERVICE, Duration: 30 day, Stop date: 08/16/17 5:22:00 CDT, Replace Every: 24 hrNotes: Central administration only for concentration > 2 mg/ml. Use Glass Bottle or Non PVC Bag "Use 0.22 micron in-line filter" MEDICATION WASTE Product Size: 900 mg Product Wasted: ___ mg Inactive 07/17/2017 [facility] Insulin regular 10 unit, 0.1 mL, Route: IV, Drug form: INJ, ONCE, Dosing Weight 113.4, kg, Start date: 07/17/17 5:12:00 REPRESENTATIVE PERSONAL SERVICE, Stop date: 07/17/17 5:12:00 CSTNotes: (Same as: Humulin R and NovoLIN R) WASTE: F/P - Lit ck; E - Municipal Trash Bin (Do not shake) Inactive 07/17/2017 [facility] Calcium Gluconate 1,000 mg, 10 mL, Route: IVPB, ONCE, Dosing Weight 113.4, kg, Start date: 07/17/17 5:12:00 REPRESENTATIVE PERSONAL SERVICE, Stop date: 07/17/17 5:12:00 CSTNotes: WASTE: F/P - Sink; E - Municipal Trash Bin Inactive 07/17/2017 [facility] sodium bicarbonate 8.4% 50 mEq, 50 ml, Route: IVP, Drug Form: INJ, Dosing Weight 113.4, kg, ONCE, Start date: 07/17/17 5:12:00 REPRESENTATIVE PERSONAL SERVICE, Stop date: 07/17/17 5:12:00 CSTNotes: (sodium bicarb 8.4% (1 mEq/ml) 50 ml syringe) Inactive 07/17/2017 [facility] Dextrose 50% Syringe 25 gm, 50 mL, Route: IVP, Drug Form: INJ, Dosing Weight 113.4, kg, ONCE, Start date: 07/17/17 5:12:00 REPRESENTATIVE PERSONAL SERVICE, Stop date: 07/17/17 5:12:00 REPRESENTATIVE PERSONAL SERVICE Inactive 07/17/2017 [facility] Sodium Chloride 0.9% (Bolus) IV 500 mL, 500 ml/hr, Infuse Over: 1 hr, Route: IV, ONCE, Priority: STAT, Dosing Weight 113.4 kg, Start date: 07/17/17 1:56:00 REPRESENTATIVE PERSONAL SERVICE, Stop date: 07/17/17 1:56:00 REPRESENTATIVE PERSONAL SERVICE Inactive 07/17/2017 [facility] heparin additive 25,000 unit [14 unit/kg/hr] + Premix Diluent Dextrose 5% 500 mL 500 mL, Rate: 28.06 ml/hr, Infuse over: 17.8 hr, Route: IV, Dosing Weight 100.2 kg, Total Volume: 500 mL, Start date: 07/16/17 16:39:00 REPRESENTATIVE PERSONAL SERVICE, Duration: 30 day, Stop date: 08/15/17 16:38:00 CDT, 2.35, m2 No Longer Active 07/16/2017 [facility] Fentanyl 1,250 microgram, 250 mL, Rate: Titrate, Start Dose: 100 microgram/hr, Titration: 25 micrograms/hour every 15 minutes, Goal(s): RASS -1 TO -2, Max Dose: 300 microgram/hr, Route: IV, Dosing Weight 120.6 kg, Total Volume: 250, Priority: STAT, Start date:...Notes: Concentration: 5 microgram / ml No Longer Active 07/16/2017 [facility] NS (Bolus) IV 500 mL, 250 ml/hr, Infuse Over: 2 hr, Route: IV, 500, Drug form: INJ, ONCE, Priority: STAT, Dosing Weight 113.4 kg, Start date: 07/16/17 13:33:00 REPRESENTATIVE PERSONAL SERVICE, Stop date: 07/16/17 13:33:00 REPRESENTATIVE PERSONAL SERVICE Inactive 07/16/2017 [facility] Vasopressin (ALF) 40 unit, 2 mL, Rate: 6 ml/hr, Infuse over: 16.7 hr, Start Dose: 0.04 unit/min, Titration: DO NOT TITRATE, Goal(s): MAP >=65 mmHg, Max Dose: 0.04 unit/min, Route: IV, Dosing Weight 113.4 kg, Total Volume: 100 For Sepsis, Start date: 07/16/17 13:06:00...Notes: (Same As: Pitressin, Vasostrict) No Longer Active 07/16/2017 [facility] vancomycin + Sodium Chloride 0.9% IV 250 mL 1,500 mg, Route: IVPB, ONCE, Start date: 07/16/17 13:00:00 REPRESENTATIVE PERSONAL SERVICE, Stop date: 07/16/17 13:00:00 REPRESENTATIVE PERSONAL SERVICE, ABX Indication: BacteremiaNotes: TIME CRITICAL MEDICATION (Same As: Vancocin) Infusion rate 2001 mg: infuse over 2.5 hours For adult patients only: Round to nearest 250 mg per Medical Staff approval MEDICATION WASTE Product Size: 1000 mg Product Wasted: ___ mg Inactive 07/16/2017 [facility] albumin human 5% intravenous solution 25 gm, 500 mL, 500 ml/hr, Route: IV, Drug Form: INJ, Dosing Weight 113.4, kg, ONCE, STAT, Start date: 07/16/17 12:46:00 REPRESENTATIVE PERSONAL SERVICE, Stop date: 07/16/17 12:46:00 CSTNotes: LOT#: Mfg: (Same as: Albuminar) "blood product derivative" WASTE: F/P - Red; E -Red MEDICATION WASTE Product Size: 25 gm Product Wasted: ___ gm Inactive 07/16/2017 [facility] Lopressor 2.5 mg, 2.5 mL, Route: IVP, Drug form: INJ, ONCE, Dosing Weight 113.4, kg, Start date: 07/16/17 11:57:00 REPRESENTATIVE PERSONAL SERVICE, Stop date: 07/16/17 11:57:00 CSTNotes: (Same as: Lopressor) Push over 2 minutes Inactive 07/16/2017 [facility] Vancomycin 1 ea, Route: MISC, ONCALL, Dosing Weight 113.4, kg, Priority: STAT, Start date: 07/16/17 11:29:00 REPRESENTATIVE PERSONAL SERVICE, Duration: 10 day, Stop date: 07/26/17 12:28:00 CDT, Pharmacy to dose, ABX Indication: Bacteremia Inactive 07/16/2017 [facility] Cisatracurium 40 mg, 20 mL, Rate: Titrate, Start Dose: 0.5 microgram/kg/min, Titration: 0.25 microgram/kg/minute every 15 minutes, Goal(s): TOF=2 twitches, Max Dose: 5 microgram/kg/min, Route: IV, Dosing Weight 113.4 kg, Total Volume: 100, Start date: 07/16/17 10...Notes: (Same As: Nimbex) No Longer Active 07/16/2017 [facility] Heparin 40 unit/kg Bolus (Heparin Dosing Weight) Route: IVP, PRN, 4,000 unit, 4 mL, Drug form: INJ, PRN, Heparin Protocol, Start date: 07/16/17 10:25:00 REPRESENTATIVE PERSONAL SERVICE Stop date: 08/15/17 11:24:00 CDT, 30 day Inactive 07/16/2017 [facility] Heparin 80 unit/kg Bolus (Heparin Dosing Weight) Route: IVP, PRN, 8,000 unit, 8 mL, Drug form: INJ, PRN, Heparin Protocol, Start date: 07/16/17 10:25:00 REPRESENTATIVE PERSONAL SERVICE Stop date: 08/15/17 11:24:00 CDT, 30 day Inactive 07/16/2017 [facility] heparin additive 25,000 unit [18 unit/kg/hr] + Premix Diluent Dextrose 5% 500 mL 500 mL, Rate: 36.07 ml/hr, Infuse over: 13.9 hr, Route: IV, Dosing Weight 100.2 kg, Total Volume: 500 mL, Start date: 07/16/17 10:25:00 REPRESENTATIVE PERSONAL SERVICE, Duration: 30 day, Stop date: 08/15/17 10:24:00 CDT, 2.35, m2 Inactive 07/16/2017 [facility] Cisatracurium 15 mg, 7.5 mL, Route: IV, Drug form: INJ, ONCE, Dosing Weight 113.4, kg, Priority: STAT, Start date: 07/16/17 10:15:00 REPRESENTATIVE PERSONAL SERVICE, Stop date: 07/16/17 10:15:00 CSTNotes: (Same As: Nimbex) Inactive 07/16/2017 [facility] Vancomycin 1,000 mg, Route: IVPB, [id number], Dosing Weight 113.4, kg, Start date: 07/16/17 9:00:00 REPRESENTATIVE PERSONAL SERVICE, Duration: 7 day, Stop date: 07/22/17 9:00:00 REPRESENTATIVE PERSONAL SERVICE, ABX Indication: PneumoniaNotes: TIME CRITICAL MEDICATION ( Same As: Vancocin) Infusion rate 2001 mg: infuse over 2.5 hours For adult patients only: Round to nearest 250 mg per Medical Staff approval MEDICATION WASTE Product Size: 1000 mg Product Wasted: ___ mg Inactive 07/16/2017 [facility] Famotidine 20 mg, 1 tab, Route: NG, Drug form: TAB, Q24H, Dosing Weight 112, kg, Start date: 07/15/17 21:00:00 REPRESENTATIVE PERSONAL SERVICE, Stop date: 08/14/17 9:00:00 CDTNotes: (Same as: Pepcid) No Longer Active 07/16/2017 [facility] Amiodarone 150 mg, 3 mL, Route: IVPB, ONCE, Dosing Weight 112, kg, Start date: 07/15/17 20:05:00 REPRESENTATIVE PERSONAL SERVICE, Stop date: 07/15/17 20:05:00 CSTNotes: Central administration only for concentrations > 2 mg/ml. "Recommendation: Use an in-line filter during administration for continuous infusions to reduce the incidence of phlebitis" (Same as Codarone) MEDICATION WASTE Product Size: 150 mg Product Wasted: ___ mg Inactive 07/16/2017 [facility] AMIODarone 900 mg in D5W 500 ml IV 900 mg + Dextrose 5% in Water IV 482 mL 900 mg, 18 mL, Rate: 1 mg/min for 6 hours, then reduce to 0.5 mg/min, Dosing Weight 112, kg, Route: IV, Total Volume: 500, Start Date: 07/15/17 20:05:00 REPRESENTATIVE PERSONAL SERVICE, Duration: 24 hr, Stop date: 07/16/17 20:04:00 REPRESENTATIVE PERSONAL SERVICE, Replace Every: 24 hrNotes: Central administration only for concentration > 2 mg/ml. Use Glass Bottle or Non PVC Bag "Use 0.22 micron in-line filter" MEDICATION WASTE Product Size: 900 mg Product Wasted: ___ mg No Longer Active 07/16/2017 [facility] cefepime 1 gm, Route: IVPB, [id number], Dosing Weight 112, kg, CrCl >/=50 ml/min, Start date: 07/15/17 16:00:00 REPRESENTATIVE PERSONAL SERVICE, Stop date: 07/21/17 20:00:00 REPRESENTATIVE PERSONAL SERVICE, ABX Indication: PneumoniaNotes: (Same As: Maxipime) MEDICATION WASTE Product Size: 1000 mg Product Wasted: __0_ mg No Longer Active 07/15/2017 [facility] Ofirmev 1,000 mg, 100 mL, Route: IV, Drug form: INJ, Q6H, Dosing Weight 112, kg, PRN For Temp > 100.4 F, for > or=50 kg, Start date: 07/15/17 12:55:00 REPRESENTATIVE PERSONAL SERVICE, Duration: 30 day, Stop date: 08/14/17 12:54:00 CDTNotes: Infuse over 15 minutes Do not exceed 4gm/day of acetaminophen MEDICATION WASTE Product Size: 1000 mg Product Wasted: ___ mg No Longer Active 07/15/2017 [facility] Calcium Chloride 10 mg/kg, Route: IVPB, Drug form: SOLN, ONCE, Dosing Weight 112, kg, Start date: 07/15/17 12:35:00 REPRESENTATIVE PERSONAL SERVICE, Stop date: 07/15/17 12:35:00 REPRESENTATIVE PERSONAL SERVICE Inactive 07/15/2017 [facility] cefepime + sterile water 10 mL 1 gm, Route: IV, Drug form: INJ, ABXQ8H, Start date: 07/15/17 10:00:00 REPRESENTATIVE PERSONAL SERVICE, Duration: 1 doses or times, Stop date: 07/15/17 10:00:00 REPRESENTATIVE PERSONAL SERVICE, ABX Indication: PneumoniaNotes: (Same As: Maxipime) MEDICATION WASTE Product Size: 1000 mg Product Wasted: _0__ mg Inactive 07/15/2017 [facility] Acetaminophen 1,000 mg, 31.23 mL, Route: NG, Drug form: LIQ, Q6H, Dosing Weight 112, kg, PRN For Temp > 101 F, Start date: 07/15/17 9:12:00 REPRESENTATIVE PERSONAL SERVICE, Duration: 30 day, Stop date: 08/14/17 9:11:00 CDT No Longer Active 07/15/2017 [facility] Docusate 100 mg, 10 mL, Route: PO, Drug form: LIQ, BID, Dosing Weight 112.6, kg, Start date: 07/15/17 9:00:00 REPRESENTATIVE PERSONAL SERVICE, Stop date: 08/13/17 17:00:00 CDTNotes: (Same as: Colace) No Longer Active 07/15/2017 [facility] ocular lubricant 1 appl, Route: BOTH EYES, Q6H, Drug form: OINT, Start date: 07/15/17 0:00:00 REPRESENTATIVE PERSONAL SERVICE, Duration: 30 day, Stop date: 08/13/17 18:00:00 CDTNotes: (Same as: Lacri-Lube, Duratears Naturale, Artificial Tears, and Tears Again ) No Longer Active 07/15/2017 [facility] Lopressor 12.5 mg, 0.5 tab, Route: PO, Drug form: TAB, Q12H, Dosing Weight 112.6, kg, Start date: 07/14/17 21:00:00 REPRESENTATIVE PERSONAL SERVICE, Duration: 30 day, Stop date: 08/13/17 9:00:00 CDTNotes: (Same as: Lopressor) No Longer Active 07/15/2017 [facility] chlorhexidine gluconate 1.2 MG/ML Mouthwash 15 mL, Route: Swab Mouth, Q12H, Drug form: LIQ, Start date: 07/14/17 21:00:00 REPRESENTATIVE PERSONAL SERVICE, Duration: 30 day, Stop date: 08/13/17 9:00:00 CDTNotes: (Same As: Peridex) No Longer Active 07/15/2017 [facility] Morphine 2 mg, Route: IVP, Q4H, Dosing Weight 112.6, kg, PRN Pain Score 4-6, Start date: 07/14/17 19:13:00 REPRESENTATIVE PERSONAL SERVICE, Duration: 30 day, Stop date: 08/13/17 19:12:00 CDT Inactive 07/15/2017 [facility] propofol 10 mg/mL (Titrate.) IV 1,000 mg 1,000 mg, 100 mL, Rate: Titrate, Start Dose: 5 microgram/kg/min, Titration: 5 microgram/kg/min every 15 minutes, Goal(s): -3, Max Dose: 50 mcg/kg/min, Route: IV, Dosing Weight 112.6 kg, Total Volume: 100, Start date: 07/14/17 19:13:00 REPRESENTATIVE PERSONAL SERVICE, Duration: 3...Notes: If Diprivan - change bottle & tubing every 12 hr Per state nursing law propofol can only be given by a nurse if patient is intubated or being intubated (unless the nurse is a DOCK MANAGER). Same as: Diprivan No Longer Active 07/15/2017 [facility] chlorhexidine gluconate 1.2 MG/ML Mouthwash 15 mL, Route: Swab Mouth, PRN, Drug form: LIQ, PRN Other -See Comment, Start date: 07/14/17 19:10:00 REPRESENTATIVE PERSONAL SERVICE, Duration: 30 day, Stop date: 08/13/17 20:09:00 CDTNotes: (Same As: Peridex) No Longer Active 07/15/2017 [facility] Fentanyl 100 microgram, 2 mL, Route: IV, Drug form: INJ, Q2H, Dosing Weight 112.6, kg, PRN Pain Score 6-10, Start date: 07/14/17 13:06:00 REPRESENTATIVE PERSONAL SERVICE, Duration: 30 day, Stop date: 08/13/17 13:05:00 CDTNotes: (Same as: Sublimaze) Preservative free. No Longer Active 07/14/2017 [facility] Fentanyl 100 microgram, 2 mL, Route: IV, Drug form: INJ, Q2H-WA, Dosing Weight 112.6, kg, Start date: 07/14/17 12:00:00 REPRESENTATIVE PERSONAL SERVICE, Duration: 30 day, Stop date: 08/13/17 10:00:00 CDTNotes: (Same as: Sublimaze) Pres ervative free. Inactive 07/14/2017 [facility] Albuterol 0.833 MG/ML / Ipratropium [place] 0.167 MG/ML Inhalant Solution [DuoNeb] 3 ml, Route: NEB, Drug Form: SOLN, Dosing Weight 112.6, kg, PRN, PRN Respiratory Protocol, Start date: 07/14/17 11:27:00 REPRESENTATIVE PERSONAL SERVICE, Duration: 30 day, Stop date: 08/13/17 12:26:00 CDTNotes: (Same as: Duoneb) No Longer Active 07/14/2017 [facility] Albuterol 1 MG/ML Inhalant Solution 2.49 mg, 3 mL, Route: NEB, Drug form: SOLN, Q6H, Dosing Weight 112.6, kg, PRN as needed for wheezing, Start date: 07/14/17 11:26:00 REPRESENTATIVE PERSONAL SERVICE, Duration: 30 day, Stop date: 08/13/17 11:25:00 CDTNotes: SEE RT DOCUMENTATION (Same as: Proventil) No Longer Active 07/14/2017 [facility] clopidogrel 75 mg, 1 tab, Route: PO, Drug form: TAB, Daily, Dosing Weight 112.6, kg, Start date: 07/14/17 9:00:00 REPRESENTATIVE PERSONAL SERVICE, Duration: 30 day, Stop date: 08/12/17 9:00:00 CDTNotes: (Same As: Plavix) No Longer Active 07/14/2017 [facility] Lasix 40 mg, 4 mL, Route: IVP, Drug form: INJ, Q8H-06, Dosing Weight 112.6, kg, Start date: 07/14/17 6:00:00 REPRESENTATIVE PERSONAL SERVICE, Duration: 30 day, Stop date: 08/12/17 22:00:00 CDTNotes: (Same as: Lasix) MEDICATION WASTE Product Size: 40 mg Product Wasted: ___ mg No Longer Active 07/14/2017 [facility] chlorhexidine gluconate 1.2 MG/ML Mouthwash 15 mL, Route: Swab Mouth, Q12H, Drug form: LIQ, Start date: 07/13/17 21:00:00 REPRESENTATIVE PERSONAL SERVICE, Duration: 30 day, Stop date: 08/12/17 9:00:00 CDTNotes: (Same As: Peridex) No Longer Active 07/14/2017 [facility] Famotidine 20 mg, 2 mL, Route: IVPB, Drug form: INJ, Q12H, Dosing Weight 112.6, kg, Start date: 07/13/17 21:00:00 REPRESENTATIVE PERSONAL SERVICE, Duration: 30 day, Stop date: 08/12/17 9:00:00 CDTNotes: (Same as: Pepcid) Can be dilute in 5-10cc NS IVP: Slow IV push over at least 2 minutes. No Longer Active 07/14/2017 [facility] Lopressor 25 mg, 1 tab, Route: PO, Drug form: TAB, Q12H, Dosing Weight 112.6, kg, Start date: 07/13/17 21:00:00 REPRESENTATIVE PERSONAL SERVICE, Duration: 30 day, Stop date: 08/12/17 9:00:00 CDTNotes: (Same as: Lopressor) Inactive 07/14/2017 [facility] Vancomycin 1,750 mg, Route: IVPB, Q12H, Dosing Weight 112.6, kg, Time Critical Medication, Start date: 07/13/17 21:00:00 [employer], Duration: 2 doses or times, Stop date: 07/14/17 9:00:00 [employer]PRESENT[employer], ABX Indication: Surgical P rophylaxisNotes: TIME CRITICAL MEDICATION (Same As: Vancocin) Infusion rate 2001 mg: infuse over 2.5 hours For adult patients only: Round to nearest 250 mg per Medical Staff approval MEDICATION WASTE Product Size: 1000 mg Product Wasted: ___ mg No Longer Active 07/14/2017 [facility] Lopressor 5 mg, 5 mL, Route: IVP, Drug form: INJ, Q6H, Dosing Weight 112.6, kg, Start date: 07/13/17 18:00:00 REPRESENT[employer]IVE [employer], Duration: 30 day, Stop date: 08/12/17 12:00:00 CDTNotes: (Same as: Lopressor) Push over 2 minutes No Longer Active 07/14/2017 [facility] ocular lubricant 1 appl, Route: BOTH EYES, Q6H, Drug form: OINT, Start date: 07/13/17 18:00:00 REPRESENTATIVE PERSONAL SERVICE, Duration: 30 day, Stop date: 08/12/17 12:00:00 CDTNotes: (Same as: Lacri-Lube, Duratears Naturale, Artificial Tears, and Tears Again ) No Longer Active 07/14/2017 [facility] Tylenol 1,000 mg, 100 mL, Route: IVPB, Drug form: INJ, Q6H, Dosing Weight 112.6, kg, PRN For Temp > 101 F, Start date: 07/13/17 17:56:00 REPRESENTATIVE PERSONAL SERVICE, Duration: 30 day, Stop date: 08/12/17 17:55:00 CDTNotes: Infuse over 15 minutes Do not exceed 4gm/day of acetaminophen MEDICATION WASTE Product Size: 1000 mg Product Wasted: ___ mg No Longer Active 07/13/2017 [facility] Mupirocin 0.02 MG/MG Topical Ointment 1 appl, Route: NASAL, BID, Drug form: OINT, Start date: 07/13/17 17:00:00 REPRESENTATIVE PERSONAL SERVICE, Duration: 5 day, Stop date: 07/18/17 9:00:00 REPRESENTATIVE PERSONAL SERVICE No Longer Active 07/13/2017 [facility] Dexmedetomidine 200 microgram, 2 mL, Rate: Titrate, Start Dose: 0.2 microgram/kg/hr, Titration: 0.1 microgram/kg/hr every 30 min, Goal(s): -1, Max Dose: 1.5 microgram/kg/hr, Route: IV, Dosing Weight 112.6 kg, Total Volume: 50, Start date: 07/13/17 16:56:00 REPRESENTATIVE PERSONAL SERVICE, Durat... No Longer Active 07/13/2017 [facility] Cefazolin 2 gm, Route: IVP, Drug form: PDR/INJ, Q8H, Dosing Weight 112.6, kg, Start date: 07/13/17 16:00:00 REPRESENTATIVE PERSONAL SERVICE, Duration: 3 doses or times, Stop date: 07/14/17 8:00:00 REPRESENTATIVE PERSONAL SERVICE, ABX Indication: Surgical ProphylaxisNo savanah: (Same As: Yovanny Jorge) MEDICATION WASTE Product Size: 1000 mg Product Wasted: ___ mg No Longer Active 07/13/2017 [facility] protamine (ANES) 10 mg Route: IV, Drug form: INJ, Start date: 07/13/17 14:06:00 REPRESENTATIVE PERSONAL SERVICE, Stop date: 07/13/17 15:06:00 REPRESENTATIVE PERSONAL SERVICE Inactive 07/13/2017 [facility] EPINEPHrine (ANES) 16 microgram Route: IV, Drug form: INJ, Start date: 07/13/17 13:25:00 REPRESENTATIVE PERSONAL SERVICE, Stop date: 07/13/17 14:25:00 REPRESENTATIVE PERSONAL SERVICE Inactive 07/13/2017 [facility] chlorhexidine gluconate 1.2 MG/ML Mouthwash 15 mL, Route: Swab Mouth, PRN, Drug form: LIQ, PRN Other -See Comment, Start date: 07/13/17 12:59:00 REPRESENTATIVE PERSONAL SERVICE, Duration: 30 day, Stop date: 08/12/17 13:58:00 CDTNotes: (Same As: Peridex) No Longer Active 07/13/2017 [facility] Magnesium Sulfate 2 gm, 50 mL, Route: IVPB, Drug form: INJ, PRN, Dosing Weight 112.6, kg, PRN Abnormal Lab Result, Start date: 07/13/17 12:59:00 REPRESENTATIVE PERSONAL SERVICE, Duration: 30 day, Stop date: 08/12/17 13:58:00 CDT, FOR ICU USE ONLYNotes: WASTE: F/P - Sink; E - Municipal Trash Bin No Longer Active 07/13/2017 [facility] Dextrose 50% Syringe 12.5 gm, 25 mL, Route: IVP, Drug Form: INJ, Dosing Weight 112.6, kg, PRN, PRN Blood Glucose Results, Start date: 07/13/17 12:59:00 REPRESENTATIVE PERSONAL SERVICE, Duration: 30 day, Stop date: 08/12/17 13:58:00 CDT No Longer Active 07/13/2017 [facility] Insulin regular 100 unit + Sodium Chloride 0.9% (titrate) 99 mL 99 mL, Rate: Start Insulin Drip Per ICU Protocol, Dosing Weight 112.6, kg, Route: IVPB, Total Volume: 100, Start Date: 07/13/17 12:59:00 REPRESENTATIVE PERSONAL SERVICE, Duration: 30 day, Stop date: 08/12/17 12:58:00 [...] days from Date No Longer Active 07/13/2017 [facility] Potassium Chloride 10 mEq, 100 mL, Route: IVPB, Drug form: INJ, PRN, Dosing Weight 112.6, kg, PRN Abnormal Lab Result, Via peripheral line, Start date: 07/13/17 12:59:00 REPRESENTATIVE PERSONAL SERVICE, Duration: 30 day, Stop date: 08/12/17 13:58:00 CDT, FOR ICU USE ONLYNotes: Infuse at a rate of 10 mEq/hr. (Same as: KCL) No Longer Active 07/13/2017 [facility] Phenylephrine 50 mg, 5 mL, Rate: Titrate, Start Dose: 35 microgram/min, Titration: 25 microgram/min every 2-5 minutes, Goal(s): for SBP greater than 90, Max Dose: 350 mcg/min, Route: IV, Dosing Weight 112.6 kg, Total Volume: 250, Start date: 07/13/17 12:59:00 REPRESENTATIVE PERSONAL SERVICE,...Notes: (Same as: Giorgi- Synephrine) No Longer Active 07/13/2017 [facility] Norepinephrine 8 mg, 250 mL, Rate: Titrate, [...] mg / mL No Longer Active 07/13/2017 [facility] Epinephrine 4 mg, 4 mL, Rate: Titrate, Start Dose: 1 microgram/min, Titration: 0.5 microgram/min every 2 - 5 min, Goal(s): for SBP greater than 90, Max Dose: 35 mcg/min, Route: IV, Dosing Weight 112.6 kg, Total Volume: 250, Start date: 07/13/17 12:59:00 REPRESENTATIVE PERSONAL SERVICE, Dura...Notes: (Same as: Adrenalin) [employer] - Injectable drug used as inhalation treatment. MEDICATION WASTE Product Size: 1 mg Product Wasted: ___ mg No Longer Active 07/13/2017 [facility] 1/2NS + KCL 20mEq/L 1000ml (Premix) 1,000 mL 1,000 mL, Rate: 50 ml/hr, Infuse over: 20 hr, Route: IV, Dosing Weight 112.6 kg, Total Volume: 1,000, Start date: 07/13/17 12:59:00 REPRESENTATIVE PERSONAL SERVICE, Duration: 30 day, Stop date: 08/12/17 12:58:00 CDT, 2.49, [id number]: PREMIX IV - Do Not Alter WASTE: F/P - Sink; E - Municipal Trash Bin No Longer Active 07/13/2017 [facility] 1/2 NS 500 mL 500 mL, Rate: 10.42 ml/hr, Infuse over: 48 hr, Route: IV, Dosing Weight 112.6 kg, Total Volume: 500, Start date: 07/13/17 12:59:00 REPRESENTATIVE PERSONAL SERVICE, Stop date: 08/12/17 12:58:00 CDT, 2.49, m2 No Longer Active 07/13/2017 [facility] PlasmaLyte A PH-7.4 500 mL 500 mL, Rate: As Directed, Rate: 0 ml/hr, Infuse over: 0, Route: IV, Dosing Weight 112.6 kg, Total Volume: 500, Start date: 07/13/17 12:59:00 REPRESENTATIVE PERSONAL SERVICE, Stop date: 08/12/17 12:58:00 CDT, 2.49, [id number]: WASTE: F/P - Sink; E - Municipal Trash Bin No Longer Active 07/13/2017 [facility] Nicardipine 40 mg, 200 mL, Rate: Titrate, Start Dose: 5 mg/hr, Titration: 2.5 mg/hr every 15 minutes, Goal(s): SBP Notes: Same as: Cardene Concentration: (0.2 mg /1 ml ) No Longer Active 07/13/2017 [facility] Nitroglycerin 100 mg, 250 mL, Rate: Titrate, Start Dose: 0.2 microgram/min, Titration: 0.2 microgram/min every 5 minutes, Goal(s): SBP Notes: (Same as:Tridil) Final conc=0.4 mg/ml. Premix bottle. No Longer Active 07/13/2017 [facility] Morphine 4 mg, 2 mL, Route: IVP, Drug form: INJ, Q1H, Dosing Weight 112.6, kg, PRN Pain Score 7-10, Start date: 07/13/17 12:59:00 REPRESENTATIVE PERSONAL SERVICE, Duration: 30 day, Stop date: 08/12/17 13:58:00 CDTNotes: (Same as:MORPhine Sulfate) No Longer Active 07/13/2017 [facility] Acetaminophen 325 MG / Hydrocodone Bitartrate 5 MG Oral Tablet 2 tab, Route: PO, Drug Form: TAB, Dosing Weight 112.6, kg, Q4H, PRN Pain Score 4-6, Start date: 07/13/17 12:59:00 REPRESENTATIVE PERSONAL SERVICE, Duration: 30 day, Stop date: 08/12/17 12:58:00 CDTNotes: (Same as: [place] 325/5) Do not exceed 4gm/day of acetaminophen. No Longer Active 07/13/2017 [facility] Acetaminophen 650 mg, 2 tab, Route: PO, Drug form: TAB, Q4H, Dosing Weight 112.6, kg, PRN Pain 1-3/Temp > 100.4 F, Start date: 07/13/17 12:59:00 REPRESENTATIVE PERSONAL SERVICE, Duration: 30 day, Stop date: 08/12/17 12:58:00 CDTNotes: Do not exceed 4 gm/day. (Same as: Tylenol) No Longer Active 07/13/2017 [facility] Ondansetron 4 mg, 2 mL, Route: IVP, Drug form: INJ, Q8H, Dosing Weight 112.6, kg, PRN Nausea & Vomiting, Start date: 07/13/17 12:59:00 REPRESENTATIVE PERSONAL SERVICE, Duration: 30 day, Stop date: 08/12/17 12:58:00 CDTNotes: (Same as: Zofran) MEDICATION WASTE Product Size: 4 mg Product Wasted: ___ mg No Longer Active 07/13/2017 [facility] Amicar (ANES) Route: IV, Drug form: INJ, ONCE, Stop date: 07/13/17 12:39:00 REPRESENTATIVE PERSONAL SERVICE Inactive 07/13/2017 [facility] heparin (ANES) 1000 unit Route: IV, Drug form: INJ, Start date: 07/13/17 11:15:00 REPRESENTATIVE PERSONAL SERVICE, Stop date: 07/13/17 12:15:00 REPRESENTATIVE PERSONAL SERVICE Inactive 07/13/2017 [facility] Amicar (ANES) 5000 mg + Route: IV, Drug form: INJ, Dosing Weight 112.6, kg, Start date: 07/13/17 10:40:00 REPRESENTATIVE PERSONAL SERVICE, Stop date: 07/13/17 11:40:00 REPRESENTATIVE PERSONAL SERVICE Inactive 07/13/2017 [facility] Amidate (ANES) Route: IV, Drug form: INJ, ONCE, Stop date: 07/13/17 10:19:00 REPRESENTATIVE PERSONAL SERVICE Inactive 07/13/2017 [facility] midazolam (ANES) Route: IV, Drug form: SOLN, ONCE, Stop date: 07/13/17 10:19:00 REPRESENTATIVE PERSONAL SERVICE Inactive 07/13/2017 [facility] cefepime (ANES) 1000 mg Route: IV, Drug form: INJ, Start date: 07/13/17 10:15:00 REPRESENTATIVE PERSONAL SERVICE, Stop date: 07/13/17 11:15:00 REPRESENTATIVE PERSONAL SERVICE Inactive 07/13/2017 [facility] vancomycin (ANES) 1000 mg Route: IV, Drug form: INJ, Start date: 07/13/17 10:15:00 REPRESENTATIVE PERSONAL SERVICE, Stop date: 07/13/17 11:15:00 REPRESENTATIVE PERSONAL SERVICE Inactive 07/13/2017 [facility] ePHEDrine (ANES) Route: IV, Drug form: INJ, ONCE, Stop date: 07/13/17 9:59:00 REPRESENTATIVE PERSONAL SERVICE Inactive 07/13/2017 [facility] propofol (ANES) Route: IV, Drug form: INJ, ONCE, Stop date: 07/13/17 9:39:00 REPRESENTATIVE PERSONAL SERVICE Inactive 07/13/2017 [facility] fentaNYL (ANES) Route: IV, Drug form: INJ, ONCE, Stop date: 07/13/17 9:39:00 REPRESENTATIVE PERSONAL SERVICE Inactive 07/13/2017 [facility] lidocaine (ANES) Route: IV, Drug form: INJ, ONCE, Stop date: 07/13/17 9:39:00 REPRESENTATIVE PERSONAL SERVICE Inactive 07/13/2017 [facility] rocuronium (ANES) Route: IV, Drug form: INJ, ONCE, Stop date: 07/13/17 9:39:00 REPRESENTATIVE PERSONAL SERVICE Inactive 07/13/2017 [facility] nitroglycerin (ANES) 400 microgram Route: IV, Drug form: INJ, Start date: 07/13/17 9:36:00 REPRESENTATIVE PERSONAL SERVICE, Stop date: 07/13/17 10:36:00 REPRESENTATIVE PERSONAL SERVICE Inactive 07/13/2017 [facility] norepinephrine (ANES) 32 microgram Route: IV, Drug form: INJ, Start date: 07/13/17 9:34:00 REPRESENTATIVE PERSONAL SERVICE, Stop date: 07/13/17 10:34:00 REPRESENTATIVE PERSONAL SERVICE Inactive 07/13/2017 [facility] Sodium Chloride 0.9% IV (ANES) 1000 mL Route: IV, Total Volume: 1,000, Start date: 07/13/17 9:34:00 REPRESENTATIVE PERSONAL SERVICE, Stop date: 07/13/17 10:34:00 REPRESENTATIVE PERSONAL SERVICE Inactive 07/13/2017 [facility] Lactated Ringers Injection IV (ANES) 1000 mL Route: IV, Total Volume: 1,000, Start date: 07/13/17 8:44:00 REPRESENTATIVE PERSONAL SERVICE, Stop date: 07/13/17 9:44:00 REPRESENTATIVE PERSONAL SERVICE Inactive 07/13/2017 [facility] Insulin (Regular) additive 100 unit [0.1 unit/kg/hr] + NS 99 mL 99 mL, Rate: 11.26 ml/hr, Infuse over: 8.9 hr, Route: IV, Dosing Weight 112.6 kg, Total Volume: 100 mL, Start date: 07/13/17 6:00:00 REPRESENTATIVE PERSONAL SERVICE, Duration: 30 day, Stop date: 08/12/17 5:59:00 CDT, 2.49, [id number]: (Same as: Humulin R and NovoLIN R) WASTE: F/P - Black; E - [employer] TraRazer Bin (Do not shake) Inactive 07/13/2017 [facility] Phenylephrine 50 mg, 5 mL, Rate: Titrate, Start Dose: 0.5 microgram/kg/min, Titration: 0.5 microgram/kg/min every 2 - 5 minutes, Goal(s): MAP >=65 mmHg, Max Dose: 5 microgram/kg/min, Route: IV, Dosing Weight 112.6 kg, Total Volume: 250, Start date: 07/13/17 6:00:0...Notes: (Same as: Giorgi- Synephrine) Inactive 07/13/2017 [facility] Lopressor 12.5 mg, 0.5 tab, Route: PO, Drug form: TAB, ONCE, Dosing Weight 112.6, kg, Start date: 07/13/17 6:00:00 REPRESENTATIVE PERSONAL SERVICE, Stop date: 07/13/17 6:00:00 CSTNotes: (Same as: Lopressor) Inactive 07/13/2017 [facility] Epinephrine 4 mg, 4 mL, Rate: Titrate, Start Dose: 5 microgram/min, Titration: 0.5 microgram/min every 2-5 min, Goal(s): MAP >=65 mmHg, Max Dose: 35 mcg/min, Route: IV, Dosing Weight 112.6 kg, Total Volume: 250, Start date: 07/13/17 6:00:00 REPRESENTATIVE PERSONAL SERVICE, Duration: 30 day...Notes: (Same as: Adrenalin) [employer] - Injectable drug used as inhalation treatment. MEDICATION WASTE Product Size: 1 mg Product Wasted: ___ mg Inactive 07/13/2017 [facility] Lipitor 10 mg, 1 tab, Route: PO, Drug form: TAB, Bedtime, Dosing Weight 112.6, kg, Start date: 07/12/17 21:00:00 REPRESENTATIVE PERSONAL SERVICE, Duration: 30 day, Stop date: 08/10/17 21:00:00 CDTNotes: (Same As: Lipitor) No Longer Active 07/13/2017 [facility] Flexeril 10 mg, 1 tab, Route: PO, Drug form: TAB, TID, Dosing Weight 112.6, kg, PRN Spasm, Start date: 07/12/17 17:31:00 REPRESENTATIVE PERSONAL SERVICE, Duration: 30 day, Stop date: 08/11/17 17:30:00 CDTNotes: (Same As: Flexeril) No Longer Active 07/12/2017 [facility] Aspirin 81 MG Enteric Coated Tablet 81 mg, 1 tab, Route: PO, Drug form: CHEWTAB, Daily, Dosing Weight 112.6, kg, Start date: 07/12/17 12:00:00 REPRESENTATIVE PERSONAL SERVICE, Stop date: 08/11/17 9:00:00 CDTNotes: Take with food. No Longer Active 07/12/2017 [facility] Vancomycin 1,750 mg, Route: IVPB, ONCALL, Dosing Weight 112.6, kg, Start date: 07/12/17 12:00:00 REPRESENTATIVE PERSONAL SERVICE, Duration: 1 doses or times, ABX Indication: Surgical ProphylaxisNotes: TIME CRITICAL MEDICATION (Same As: Vanco mohsen) Infusion rate 2001 mg: infuse over 2.5 hours For adult patients only: Round to nearest 250 mg per Medical Staff approval MEDICATION WASTE Product Size: 1000 mg Product Wasted: ___ mg No Longer Active 07/12/2017 [facility] Maxipime 1 gm, Route: IVP, Drug form: INJ, ONCALL, Dosing Weight 112.6, kg, (CrCl >/=50 ml/min), Priority: Routine, Start date: 07/12/17 12:00:00 REPRESENTATIVE PERSONAL SERVICE, Duration: 1 doses or times, ABX Indication: Surgical ProphylaxisNotes: (Same As: Maxipime) MEDICATION WASTE Product Size: 1000 mg Product Wasted: ___ mg No Longer Active 07/12/2017 [facility] Sodium Chloride 0.9% (titrate) 250 mL 250 mL, Rate: To prime line and flush remaining blood products., Dosing Weight 112.6, kg, Route: IV, Total Volume: 250, Priority: Routine, Start Date: 07/12/17 11:23:00 REPRESENTATIVE PERSONAL SERVICE, Duration: 1 doses or times, Stop date: 07/13/17 11:22:00 REPRESENTATIVE PERSONAL SERVICE, Replace Every:... No Longer Active 07/12/2017 [facility] Heparin - one time bolus for ACS 5,000 unit, Route: SUB- Q, Q12H, Dosing Weight 112.6, kg, Start date: 07/12/17 9:00:00 REPRESENTATIVE PERSONAL SERVICE, Duration: 30 day, Stop date: 08/10/17 21:00:00 CDT No Longer Active 07/12/2017 [facility] Acetaminophen 325 MG / Hydrocodone Bitartrate 5 MG Oral Tablet [[place] 5/325] 1 tab, Route: PO, Drug Form: TAB, Dosing Weight 112.6, kg, Q4H, PRN Pain Score 1-3, Start date: 07/11/17 23:36:00 REPRESENTATIVE PERSONAL SERVICE, Duration: 30 day, Stop date: 08/10/17 23:35:00 CDTNotes: (Same as: [place] 325/5) Do not exceed 4gm/day of acetaminophen. No Longer Active 07/12/2017 [facility] Cyclobenzaprine hydrochloride 5 MG Oral Tablet [Flexeril] 5 mg=1 tab, PO, TID, # 21 tab, 0 Refill(s) No Longer Active 07/12/2017 [facility] Acetaminophen 325 MG / Hydrocodone Bitartrate 5 MG Oral Tablet [W[place] 5/325] 1-2 tab, PO, Q4-6H, PRN Pain, # 30 tab, 0 Refill(s) No Longer Active 07/12/2017 [facility] Aspirin 81 mg, PO, Daily, 0 Refill(s) No Longer Active 07/12/2017 [facility] pantoprazole 40 MG Enteric Coated Tablet [Protonix] 40 mg=1 tab, PO, Daily, # 30 tab, 0 Refill(s) No Longer Active 07/12/2017 [facility] Amlodipine 10 MG / Benazepril hydrochloride 40 MG Oral Capsule [Lotrel 10/40] 1 cap, PO, Daily, # 30 cap, 0 Refill(s) No Longer Active 07/12/2017 [facility] *RN pls update HWA in adh* *RN pls update HWA in adhoc*, Reminder, Drug form: MISC, Route: MISC, Q30Min, 07/11/17 22:00:00 REPRESENTATIVE PERSONAL SERVICE, Stop date: 07/12/17 2:00:00 REPRESENTATIVE PERSONAL SERVICE Inactive 07/12/2017 [facility] heparin additive 25,000 unit [12 unit/kg/hr] + Premix Diluent Dextrose 5% 500 mL 500 mL, Rate: 23.97 ml/hr, Infuse over: 20.9 hr, Route: IV, Dosing Weight 99.88 kg, Total Volume: 500 mL, Start date: 07/11/17 21:50:00 REPRESENTATIVE PERSONAL SERVICE, Duration: 30 day, Stop date: 08/10/17 21:49:00 CDT, 2.35, m2 No Longer Active 07/12/2017 [facility] Heparin 30 unit/kg Bolus (Heparin Dosing Weight) Route: IVP, PRN, 3,000 unit, 3 mL, Drug form: INJ, PRN, Heparin Protocol, Start date: 07/11/17 21:50:00 REPRESENTATIVE PERSONAL SERVICE Stop date: 08/10/17 22:49:00 CDT, 30 day No Longer Active 07/12/2017 [facility] Heparin 60 unit/kg Bolus (Heparin Dosing Weight) Route: IVP, PRN, 6,000 unit, 6 mL, Drug form: INJ, PRN, Heparin Protocol, Start date: 07/11/17 21:50:00 REPRESENTATIVE PERSONAL SERVICE Stop date: 08/10/17 22:49:00 CDT, 30 day No Longer Active 07/12/2017 [facility] Heparin - one time bolus for ACS 4,000 unit, Route: IVP, Drug form: INJ, ONCE, Dosing Weight 113.636, kg, Priority: STAT, Start date: 07/11/17 21:49:00 REPRESENTATIVE PERSONAL SERVICE, Stop date: 07/11/17 21:49:00 REPRESENTATIVE PERSONAL SERVICE Inactive 07/12/2017 [facility] Allergies, Adverse Reactions, Alerts Substance Category Reaction Severity Reaction type Status Date Reported Comments Source sulfa drugs Assertion Drug allergy Active [facility] Immunizations Immunization Date Given Site Status Last [...] Latrell Sidhu MD 05/14/18 00:25 FINAL REPORT [facility] Chest 2 views DX Chest 2 views DX EXAM: Chest 2 views DX DATE: 05/13/2018 8:10 PM REPRESENTATIVE PERSONAL SERVICE INDICATION: - Chest pain COMPARISON: 08/26/2017. IMPRESSION: Stable prominent cardiac silhouette and mediastinum. No definite failure. The lungs are emphysematous. No focal consolidation, significant pleural effusion or pneumothorax. SL: [id number] 05/13/2018 - - Read by: Zach Alamo MD Dictated Date/time: 05/13/18 21:26 Electronically Signed by: Zach Alamo MD 05/13/18 21:26 FINAL REPORT [facility] Abdomen/Pelvis w/wo IV contrast CT Abdomen/Pelvis w/wo [...] Halina Friedman MD 04/14/18 14:02 FINAL REPORT [facility] Renal Stone CT Renal Stone CT Clinical [...] Kymberly Colbert MD 03/21/18 22:06 FINAL REPORT [facility] Chest Pulmonary Embolism CTA Chest Pulmonary Embolism [...] Kymberly Colbert MD 03/21/18 21:57 FINAL REPORT [facility] CHEM PANEL Magnesium Lvl 1.9 mg/dL 1.8 - 2.4 09/04/2017 [facility] CHEM PANEL Phosphorus 3.5 mg/dL 2.5 - 4.5 09/04/2017 [facility] ELECTROLYTES AGAP 11.0 meq/L 10.0 - 20.0 09/04/2017 [facility] ELECTROLYTES Calcium Lvl 8.4 mg/dL 8.5 - 10.5 09/04/2017 [facility] ELECTROLYTES CO2 24 meq/L 24 - 32 09/04/2017 [facility] ELECTROLYTES Chloride Lvl 109 meq/L 95 - 109 09/04/2017 [facility] ELECTROLYTES Potassium Lvl 4.0 meq/L 3.5 - 5.1 09/04/2017 [facility] ELECTROLYTES eGFR 62 mL/min/1.73m2 09/04/2017 Result Comment: [...] should be multiplied by the estimated BMI. [facility] ELECTROLYTES Sodium Lvl 140 meq/L 135 - 145 09/04/2017 [facility] ELECTROLYTES Creatinine Lvl 1.18 mg/dL 0.50 - 1.40 09/04/2017 [facility] ELECTROLYTES BUN 14 mg/dL 7 - 22 09/04/2017 [facility] ELECTROLYTES Glucose Lvl 85 mg/dL 70 - 99 09/04/2017 [facility] RBC 3.25 M/CMM 4.70 - 6.10 09/04/2017 [facility] WBC 8.1 K/CMM 3.7 - 10.4 09/04/2017 [facility] Hct 29.7 % 42.0 - 54.0 09/04/2017 [facility] Hgb 9.9 g/dL 14.0 - 18.0 09/04/2017 [facility] MPV 8.8 fL 7.4 - 10.4 09/04/2017 [facility] RDW 16.7 % 11.5 - 14.5 09/04/2017 [facility] MCH 30.4 pg 27.0 - 31.0 09/04/2017 [facility] Platelet 225 K/CMM 133 - 450 09/04/2017 [facility] MCHC 33.2 g/dL 32.0 - 36.0 09/04/2017 [facility] MCV 91.5 fL 80.0 - 94.0 09/04/2017 [facility] Monocytes # 0.6 K/CMM 0.0 - 0.8 09/04/2017 [facility] Eosinophils # 0.1 K/CMM 0.0 - 0.5 09/04/2017 [facility] Basophils # 0.1 K/CMM 0.0 - 0.2 09/04/2017 [facility] Lymphocytes 12.1 % 20.0 - 40.0 09/04/2017 [facility] Lymphocytes # 1.0 K/CMM 1.0 - 5.5 09/04/2017 [facility] Eosinophils 1.8 % 0.0 - 4.0 09/04/2017 [facility] HEMATOLOGY Segs-Bands # 6.3 K/CMM 1.5 - 8.1 09/04/2017 [facility] HEMATOLOGY Monocytes 7.9 % 2.0 - 12.0 09/04/2017 [facility] HEMATOLOGY Basophils 0.7 % 0.0 - 1.0 09/04/2017 [facility] HEMATOLOGY Segs 77.5 % 45.0 - 75.0 09/04/2017 [facility] IMMUNOLOGY Prealbumin 17.6 mg/dL 18.0 - 45.0 09/04/2017 [facility] CHEM PANEL eGFR 56 mL/min/1.73m2 09/03/2017 Result [...] should be multiplied by the estimated BMI. [facility] CHEM PANEL AGAP 10.4 meq/L 10.0 - 20.0 09/03/2017 [facility] CHEM PANEL Calcium Lvl 8.6 mg/dL 8.5 - 10.5 09/03/2017 [facility] CHEM PANEL Potassium Lvl 4.4 meq/L 3.5 - 5.1 09/03/2017 [facility] CHEM PANEL Chloride Lvl 109 meq/L 95 - 109 09/03/2017 [facility] CHEM PANEL CO2 26 meq/L 24 - 32 09/03/2017 [facility] CHEM PANEL Glucose Lvl 83 mg/dL 70 - 99 09/03/2017 [facility] CHEM PANEL Creatinine Lvl 1.28 mg/dL 0.50 - 1.40 09/03/2017 [facility] CHEM PANEL BUN 17 mg/dL 7 - 22 09/03/2017 [facility] CHEM PANEL Sodium Lvl 141 meq/L 135 - 145 09/03/2017 [facility] CHEM PANEL eGFR 45 mL/min/1.73m2 09/03/2017 Result [...] should be multiplied by the estimated BMI. [facility] CHEM PANEL Glucose Lvl 132 mg/dL 70 - 99 09/03/2017 [facility] CHEM PANEL BUN 18 mg/dL 7 - 22 09/03/2017 [facility] CHEM PANEL Creatinine Lvl 1.53 mg/dL 0.50 - 1.40 09/03/2017 [facility] CHEM PANEL Potassium Lvl 6.1 meq/L 3.5 - 5.1 09/03/2017 [facility] CHEM PANEL Sodium Lvl 136 meq/L 135 - 145 09/03/2017 [facility] CHEM PANEL Chloride Lvl 106 meq/L 95 - 109 09/03/2017 [facility] CHEM PANEL CO2 24 meq/L 24 - 32 09/03/2017 [facility] CHEM PANEL AGAP 12.1 meq/L 10.0 - 20.0 09/03/2017 [facility] CHEM PANEL Calcium Lvl 8.4 mg/dL 8.5 - 10.5 09/03/2017 [facility] CHEM PANEL Procalcitonin Lvl 0.10 ng/mL 0.00 - 0.10 09/03/2017 [facility] HEMATOLOGY Hgb 9.7 g/dL 14.0 - 18.0 09/03/2017 [facility] HEMATOLOGY RBC 3.23 M/CMM 4.70 - 6.10 09/03/2017 [facility] WBC 5.1 K/CMM 3.7 - 10.4 09/03/2017 [facility] Platelet 225 K/CMM 133 - 450 09/03/2017 [facility] MPV 8.7 fL 7.4 - 10.4 09/03/2017 [facility] MCHC 32.9 g/dL 32.0 - 36.0 09/03/2017 [facility] HEMATOLOGY Hct 29.5 % 42.0 - 54.0 09/03/2017 [facility] HEMATOLOGY RDW 16.9 % 11.5 - 14.5 09/03/2017 [facility] HEMATOLOGY MCH 30.0 pg 27.0 - 31.0 09/03/2017 [facility] HEMATOLOGY MCV 91.3 fL 80.0 - 94.0 09/03/2017 [facility] URINE AND STOOL UA Color Genesis 09/02/2017 [facility] URINE AND STOOL UA WBC 4 /HPF 0 - 5 09/02/2017 [facility] URINE AND STOOL UA RBC 3 /HPF 0 - 2 09/02/2017 [facility] URINE AND STOOL UA Hyal Cast 36 /LPF 0 - 2 09/02/2017 [facility] URINE AND STOOL UA Mucus Many /LPF None Seen /LPF 09/02/2017 [facility] URINE AND STOOL UA Bili Negative *NA* (09/02/17 2:04 PM) Negative 09/02/2017 [facility] URINE AND STOOL UA Ketones Trace mg/dL Negative mg/dL 09/02/2017 [facility] URINE AND STOOL UA Spec Grav 1.026 <=1.030 09/02/2017 [facility] URINE AND STOOL UA Turbidity Slight *ABN* (09/02/17 2:04 PM) Clear 09/02/2017 [facility] URINE AND STOOL UA Blood Negative (09/02/17 2:04 PM) Negative 09/02/2017 [facility] URINE AND STOOL UA Nitrite Negative (09/02/17 2:04 PM) Negative 09/02/2017 [facility] URINE AND STOOL UA Urobilinogen 2.0 mg/dL 0.1 - 1.0 09/02/2017 [facility] URINE AND STOOL UA Leuk Est Negative (09/02/17 2:04 PM) Negative 09/02/2017 [facility] URINE AND STOOL UA Sq Epi Occasional /LPF Few /LPF 09/02/2017 [facility] URINE AND STOOL UA Glucose Negative mg/dL Negative mg/dL 09/02/2017 [facility] URINE AND STOOL UA Protein 30 mg/dL Negative mg/dL 09/02/2017 [facility] URINE AND STOOL UA pH 5.0 5.0 - 8.0 09/02/2017 [facility] CHEM PANEL Globulin 5.3 g/dL 2.7 - 4.2 09/02/2017 [facility] CHEM PANEL A/G Ratio 0.6 0.7 - 1.6 09/02/2017 [facility] CHEM PANEL B/C Ratio 11 6 - 25 09/02/2017 [facility] CHEM PANEL Bili Total 0.6 mg/dL 0.2 - 1.3 09/02/2017 [facility] CHEM PANEL Alk Phos 163 unit/L 39 - 136 09/02/2017 [facility] CHEM PANEL Albumin Lvl 3.3 g/dL 3.5 - 5.0 09/02/2017 [facility] CHEM PANEL Total Protein 8.6 g/dL 6.4 - 8.4 09/02/2017 [facility] CHEM PANEL ALT 13 unit/L 0 - 65 09/02/2017 [facility] CHEM PANEL AST 19 unit/L 0 - 37 09/02/2017 [facility] HEMATOLOGY Lymphocytes 7.4 % 20.0 - 40.0 09/02/2017 [facility] HEMATOLOGY Segs 81.7 % 45.0 - 75.0 09/02/2017 [facility] Lymphocytes # 0.7 K/CMM 1.0 - 5.5 09/02/2017 [facility] HEMATOLOGY Monocytes 6.8 % 2.0 - 12.0 09/02/2017 [facility] HEMATOLOGY Monocytes # 0.7 K/CMM 0.0 - 0.8 09/02/2017 [facility] HEMATOLOGY Basophils # 0.3 K/CMM 0.0 - 0.2 09/02/2017 [facility] HEMATOLOGY Eosinophils # 0.1 K/CMM 0.0 - 0.5 09/02/2017 [facility] Eosinophils 1.4 % 0.0 - 4.0 09/02/2017 [facility] Segs-Bands # 7.8 K/CMM 1.5 - 8.1 09/02/2017 [facility] Basophils 2.7 % 0.0 - 1.0 09/02/2017 [facility] Platelet 316 K/CMM 133 - 450 09/02/2017 [facility] MPV 8.6 fL 7.4 - 10.4 09/02/2017 [facility] RDW 16.9 % 11.5 - 14.5 09/02/2017 [facility] Hct 36.8 % 42.0 - 54.0 09/02/2017 [facility] MCH 30.1 pg 27.0 - 31.0 09/02/2017 [facility] MCHC 33.1 g/dL 32.0 - 36.0 09/02/2017 [facility] Hgb 12.2 g/dL 14.0 - 18.0 09/02/2017 [facility] MCV 91.0 fL 80.0 - 94.0 09/02/2017 [facility] WBC 9.6 K/CMM 3.7 - 10.4 09/02/2017 [facility] RBC 4.04 M/CMM 4.70 - 6.10 09/02/2017 [facility] Ext Lower Arterial Doppler bilat US Ext [...] extremities, no gross evidence for stenosis. SL: [id number] 09/02/2017 - - Read by: Uriel Hauser MD Dictated Date/time: 09/02/17 16:05 Electronically Signed by: Uriel Hauser MD 09/02/17 16:07 FINAL REPORT [facility] Chest/Abdominal Aorta with Runoff CTA Chest/Abdominal Aorta [...] imaging was performed. Total CT radiation dose: GCQ=368 mGy-cm COMPARISON: Arterial Doppler ultrasound from earlier [...] Ankur Lara MD 09/02/17 16:53 FINAL REPORT [facility] CHEM PANEL eGFR 49 mL/min/1.73m2 08/26/2017 Result Comment: [...] should be multiplied by the estimated BMI. [facility] CHEM PANEL Calcium Lvl 9.2 mg/dL 8.5 - 10.5 08/26/2017 [facility] CHEM PANEL CO2 23 meq/L 24 - 32 08/26/2017 [facility] CHEM PANEL Chloride Lvl 107 meq/L 95 - 109 08/26/2017 [facility] CHEM PANEL Potassium Lvl 5.1 meq/L 3.5 - 5.1 08/26/2017 [facility] CHEM PANEL Sodium Lvl 138 meq/L 135 - 145 08/26/2017 [facility] CHEM PANEL Creatinine Lvl 1.44 mg/dL 0.50 - 1.40 08/26/2017 [facility] CHEM PANEL BUN 15 mg/dL 7 - 22 08/26/2017 [facility] CHEM PANEL Glucose Lvl 85 mg/dL 70 - 99 08/26/2017 [facility] CHEM PANEL AGAP 13.1 meq/L 10.0 - 20.0 08/26/2017 [facility] HEMATOLOGY Hgb 11.9 g/dL 14.0 - 18.0 08/26/2017 [facility] Hct 36.2 % 42.0 - 54.0 08/26/2017 [facility] MCV 91.4 fL 80.0 - 94.0 08/26/2017 [facility] MCH 29.9 pg 27.0 - 31.0 08/26/2017 [facility] MCHC 32.7 g/dL 32.0 - 36.0 08/26/2017 [facility] RDW 16.7 % 11.5 - 14.5 08/26/2017 [facility] Platelet 345 K/CMM 133 - 450 08/26/2017 [facility] HEMATOLOGY MPV 8.7 fL 7.4 - 10.4 08/26/2017 [facility] HEMATOLOGY WBC 8.1 K/CMM 3.7 - 10.4 08/26/2017 [facility] HEMATOLOGY RBC 3.96 M/CMM 4.70 - 6.10 08/26/2017 [facility] Lymphocytes 12.3 % 20.0 - 40.0 08/26/2017 [facility] HEMATOLOGY Segs 77.1 % 45.0 - 75.0 08/26/2017 [facility] Monocytes # 0.7 K/CMM 0.0 - 0.8 08/26/2017 [facility] HEMATOLOGY Eosinophils # 0.1 K/CMM 0.0 - 0.5 08/26/2017 [facility] Lymphocytes # 1.0 K/CMM 1.0 - 5.5 08/26/2017 [facility] Segs-Bands # 6.2 K/CMM 1.5 - 8.1 08/26/2017 [facility] Basophils 0.9 % 0.0 - 1.0 08/26/2017 [facility] Basophils # 0.1 K/CMM 0.0 - 0.2 08/26/2017 [facility] Eosinophils 1.7 % 0.0 - 4.0 08/26/2017 [facility] Monocytes 8.0 % 2.0 - 12.0 08/26/2017 [facility] Chest 2 views DX Chest 2 views DX Clinical Indication: - 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 2. Chronic obstructive pulmonary disease. SL: [id number] 08/26/2017 - - Read by: John Roberts MD Dictated Date/time: 08/26/17 10:40 Electronically Signed by: John Roberts MD 08/26/17 10:41 FINAL REPORT [facility] Spine lumbar 2 or 3 views DX [...] vertebral augmentation. 3. Moderate degenerative changes. SL: [id number] 08/08/2017 - - Read by: Ana Villareal MD Dictated Date/time: 08/08/17 14:31 Electronically Signed by: Ana Villareal MD 08/08/17 14:54 FINAL REPORT [facility] CHEM PANEL A/G Ratio 0.6 0.7 - 1.6 08/08/2017 [facility] CHEM PANEL eGFR 60 mL/min/1.73m2 08/08/2017 Result [...] should be multiplied by the estimated BMI. [facility] CHEM PANEL Albumin Lvl 2.8 g/dL 3.5 - 5.0 08/08/2017 [facility] CHEM PANEL Total Protein 7.6 g/dL 6.4 - 8.4 08/08/2017 [facility] CHEM PANEL Globulin 4.8 g/dL 2.7 - 4.2 08/08/2017 [facility] CHEM PANEL B/C Ratio 21 6 - 25 08/08/2017 [facility] CHEM PANEL Bili Total 0.8 mg/dL 0.2 - 1.3 08/08/2017 [facility] CHEM PANEL AGAP 10.2 meq/L 10.0 - 20.0 08/08/2017 [facility] CHEM PANEL ALT 16 unit/L 0 - 65 08/08/2017 [facility] CHEM PANEL Alk Phos 131 unit/L 39 - 136 08/08/2017 [facility] CHEM PANEL AST 36 unit/L 0 - 37 08/08/2017 [facility] CHEM PANEL BUN 26 mg/dL 7 - 22 08/08/2017 [facility] CHEM PANEL Glucose Lvl 85 mg/dL 70 - 99 08/08/2017 [facility] CHEM PANEL Calcium Lvl 9.0 mg/dL 8.5 - 10.5 08/08/2017 [facility] CHEM PANEL CO2 28 meq/L 24 - 32 08/08/2017 [facility] CHEM PANEL Creatinine Lvl 1.21 mg/dL 0.50 - 1.40 08/08/2017 [facility] CHEM PANEL Chloride Lvl 101 meq/L 95 - 109 08/08/2017 [facility] CHEM PANEL Potassium Lvl 4.2 meq/L 3.5 - 5.1 08/08/2017 [facility] CHEM PANEL Sodium Lvl 135 meq/L 135 - 145 08/08/2017 [facility] CHEM PANEL Magnesium Lvl 1.8 mg/dL 1.8 - 2.4 08/06/2017 [facility] CHEM PANEL eGFR 56 mL/min/1.73m2 08/06/2017 Result [...] should be multiplied by the estimated BMI. [facility] CHEM PANEL AGAP 11.6 meq/L 10.0 - 20.0 08/06/2017 [facility] CHEM PANEL Glucose Lvl 83 mg/dL 70 - 99 08/06/2017 [facility] CHEM PANEL Creatinine Lvl 1.27 mg/dL 0.50 - 1.40 08/06/2017 [facility] CHEM PANEL BUN 29 mg/dL 7 - 22 08/06/2017 [facility] CHEM PANEL Potassium Lvl 3.6 meq/L 3.5 - 5.1 08/06/2017 [facility] CHEM PANEL Calcium Lvl 8.2 mg/dL 8.5 - 10.5 08/06/2017 [facility] CHEM PANEL CO2 28 meq/L 24 - 32 08/06/2017 [facility] CHEM PANEL Sodium Lvl 138 meq/L 135 - 145 08/06/2017 [facility] CHEM PANEL Chloride Lvl 102 meq/L 95 - 109 08/06/2017 [facility] Chest 2 views DX Chest 2 views [...] atelectasis. 2. Chronic obstructive pulmonary disease. SL: [id number] 08/05/2017 - - Read by: John Roberts MD Dictated Date/time: 08/05/17 14:41 Electronically Signed by: John Roberts MD 08/05/17 14:42 FINAL REPORT [facility] CHEM PANEL Magnesium Lvl 2.3 mg/dL 1.8 - 2.4 08/05/2017 [facility] CHEM PANEL Glucose Lvl 79 mg/dL 70 - 99 08/05/2017 [facility] CHEM PANEL Calcium Lvl 7.9 mg/dL 8.5 - 10.5 08/05/2017 [facility] CHEM PANEL AGAP 13.8 meq/L 10.0 - 20.0 08/05/2017 [facility] CHEM PANEL CO2 28 meq/L 24 - 32 08/05/2017 [facility] CHEM PANEL Potassium Lvl 3.8 meq/L 3.5 - 5.1 08/05/2017 [facility] CHEM PANEL Chloride Lvl 103 meq/L 95 - 109 08/05/2017 [facility] CHEM PANEL Creatinine Lvl 1.26 mg/dL 0.50 - 1.40 08/05/2017 [facility] CHEM PANEL Sodium Lvl 141 meq/L 135 - 145 08/05/2017 [facility] CHEM PANEL BUN 27 mg/dL 7 - 22 08/05/2017 [facility] CHEM PANEL eGFR 57 mL/min/1.73m2 08/05/2017 Result [...] should be multiplied by the estimated BMI. [facility] CHEM PANEL Magnesium Lvl 1.6 mg/dL 1.8 - 2.4 08/04/2017 [facility] MPV 9.3 fL 7.4 - 10.4 08/02/2017 [facility] Hgb 9.7 g/dL 14.0 - 18.0 08/02/2017 [facility] Hct 29.5 % 42.0 - 54.0 08/02/2017 [facility] RBC 3.16 M/CMM 4.70 - 6.10 08/02/2017 [facility] WBC 9.0 K/CMM 3.7 - 10.4 08/02/2017 [facility] RDW 17.7 % 11.5 - 14.5 08/02/2017 [facility] Platelet 221 K/CMM 133 - 450 08/02/2017 [facility] MCV 93.1 fL 80.0 - 94.0 08/02/2017 [facility] MCHC 33.0 g/dL 32.0 - 36.0 08/02/2017 [facility] MCH 30.8 pg 27.0 - 31.0 08/02/2017 [facility] HEMATOLOGY Eosinophils 1.0 % 0.0 - 4.0 08/02/2017 [facility] HEMATOLOGY Basophils 0.1 % 0.0 - 1.0 08/02/2017 [facility] HEMATOLOGY Segs-Bands # 6.7 K/CMM 1.5 - 8.1 08/02/2017 [facility] HEMATOLOGY Monocytes # 1.1 K/CMM 0.0 - 0.8 08/02/2017 [facility] HEMATOLOGY Lymphocytes # 1.1 K/CMM 1.0 - 5.5 08/02/2017 [facility] HEMATOLOGY Eosinophils # 0.1 K/CMM 0.0 - 0.5 08/02/2017 [facility] HEMATOLOGY Monocytes 11.9 % 2.0 - 12.0 08/02/2017 [facility] HEMATOLOGY Segs 74.3 % 45.0 - 75.0 08/02/2017 [facility] HEMATOLOGY Lymphocytes 12.7 % 20.0 - 40.0 08/02/2017 [facility] ANEMIA STUDY % [place] 22 % 12 - 57 07/30/2017 [facility] ANEMIA STUDY UIBC 193 ug/dl 110 - 370 07/30/2017 [facility] ANEMIA STUDY TIBC 249 ug/dl 228 - 428 07/30/2017 [facility] ANEMIA STUDY Iron 56 ug/dl 45 - 160 07/30/2017 [facility] ANEMIA STUDY Vitamin B12 Lvl 864 pg/mL 254 - 1320 07/30/2017 [facility] CHEM PANEL Total Protein 5.9 g/dL 6.4 - 8.4 07/30/2017 [facility] CHEM PANEL Albumin Lvl 2.3 g/dL 3.5 - 5.0 07/30/2017 [facility] HEMATOLOGY Segs 82.0 % 45.0 - 75.0 07/30/2017 [facility] HEMATOLOGY Lymphocytes 8.5 % 20.0 - 40.0 07/30/2017 [facility] HEMATOLOGY Monocytes # 0.6 K/CMM 0.0 - 0.8 07/30/2017 [facility] HEMATOLOGY Segs-Bands # 6.5 K/CMM 1.5 - 8.1 07/30/2017 [facility] HEMATOLOGY Eosinophils 1.0 % 0.0 - 4.0 07/30/2017 [facility] HEMATOLOGY Monocytes 8.1 % 2.0 - 12.0 07/30/2017 [facility] HEMATOLOGY Lymphocytes # 0.7 K/CMM 1.0 - 5.5 07/30/2017 [facility] Basophils 0.4 % 0.0 - 1.0 07/30/2017 [facility] Eosinophils # 0.1 K/CMM 0.0 - 0.5 07/30/2017 [facility] RBC 2.81 M/CMM 4.70 - 6.10 07/30/2017 [facility] Hct 26.0 % 42.0 - 54.0 07/30/2017 [facility] Hgb 8.6 g/dL 14.0 - 18.0 07/30/2017 [facility] MCH 30.7 pg 27.0 - 31.0 07/30/2017 [facility] MCV 92.3 fL 80.0 - 94.0 07/30/2017 [facility] MPV 9.8 fL 7.4 - 10.4 07/30/2017 [facility] Platelet 177 K/CMM 133 - 450 07/30/2017 [facility] RDW 16.3 % 11.5 - 14.5 07/30/2017 [facility] MCHC 33.2 g/dL 32.0 - 36.0 07/30/2017 [facility] WBC 7.9 K/CMM 3.7 - 10.4 07/30/2017 [facility] IMMUNOLOGY Prealbumin 11.9 mg/dL 18.0 - 45.0 07/30/2017 [facility] SPECIAL CHEMISTRY Hgb A1C 4.8 % <=5.6 % 07/30/2017 [facility] CHEM PANEL Phosphorus 2.7 mg/dL 2.5 - 4.5 07/29/2017 [facility] CHEM PANEL eGFR 76 mL/min/1.73m2 07/29/2017 Result [...] should be multiplied by the estimated BMI. [facility] CHEM PANEL Calcium Lvl 7.0 mg/dL 8.5 - 10.5 07/29/2017 Result Comment: Critical Result(s) called to ghanshyam gavin at 07/29/2017 06:03 by hp. Read back OK [facility] CHEM PANEL AGAP 12.0 meq/L 10.0 - 20.0 07/29/2017 [facility] CHEM PANEL CO2 31 meq/L 24 - 32 07/29/2017 [facility] CHEM PANEL Chloride Lvl 103 meq/L 95 - 109 07/29/2017 [facility] CHEM PANEL Sodium Lvl 143 meq/L 135 - 145 07/29/2017 [facility] CHEM PANEL Potassium Lvl 3.0 meq/L 3.5 - 5.1 07/29/2017 Result Comment: Critical Result(s) called to ghanshyam gavin at 07/29/2017 06:03 by hp. Read back OK. [facility] CHEM PANEL BUN 22 mg/dL 7 - 22 07/29/2017 [facility] CHEM PANEL Creatinine Lvl 0.99 mg/dL 0.50 - 1.40 07/29/2017 [facility] CHEM PANEL Glucose Lvl 80 mg/dL 70 - 99 07/29/2017 [facility] CHEM PANEL Magnesium Lvl 1.6 mg/dL 1.8 - 2.4 07/29/2017 [facility] HEMATOLOGY Lymphocytes 8.9 % 20.0 - 40.0 07/29/2017 [facility] HEMATOLOGY Segs 83.6 % 45.0 - 75.0 07/29/2017 [facility] Lymphocytes # 0.6 K/CMM 1.0 - 5.5 07/29/2017 [facility] Segs-Bands # 5.9 K/CMM 1.5 - 8.1 07/29/2017 [facility] HEMATOLOGY Basophils 0.3 % 0.0 - 1.0 07/29/2017 [facility] HEMATOLOGY Eosinophils 0.8 % 0.0 - 4.0 07/29/2017 [facility] HEMATOLOGY Monocytes 6.4 % 2.0 - 12.0 07/29/2017 [facility] HEMATOLOGY Eosinophils # 0.1 K/CMM 0.0 - 0.5 07/29/2017 [facility] HEMATOLOGY Monocytes # 0.4 K/CMM 0.0 - 0.8 07/29/2017 [facility] MPV 9.5 fL 7.4 - 10.4 07/29/2017 [facility] MCH 30.7 pg 27.0 - 31.0 07/29/2017 [facility] MCHC 33.3 g/dL 32.0 - 36.0 07/29/2017 [facility] RDW 16.3 % 11.5 - 14.5 07/29/2017 [facility] Platelet 165 K/CMM 133 - 450 07/29/2017 [facility] WBC 7.0 K/CMM 3.7 - 10.4 07/29/2017 [facility] RBC 2.70 M/CMM 4.70 - 6.10 07/29/2017 [facility] MCV 92.0 fL 80.0 - 94.0 07/29/2017 [facility] Hct 24.8 % 42.0 - 54.0 07/29/2017 [facility] Hgb 8.3 g/dL 14.0 - 18.0 07/29/2017 [facility] Chest 1view DX Chest 1view DX Patient Name: TEDDY LESTER : 1945; Age: 72 years y/o Male MR: [id number] Study: Chest 1view DX 07/29/2017 3:00 AM CDT Ordering Physician: Clinical Indication: post op CABG - post op CABG; Comparison: 07/28/2017 Chest one view Sternotomy. Stable cardiomegaly and mild pulmonary vascular congestive changes. Mild atelectasis persists the left lower lobe. No significant pleural fluid. No pneumothorax. IMPRESSION: Stable chest. SL: [id number] 07/29/2017 - - Read by: Remigio Varela MD Dictated Date/time: 07/29/17 07:36 Electronically Signed by: Remigio Varela MD 07/29/17 07:37 FINAL REPORT [facility] Neck wo contrast MRA Neck wo contrast MRA Name: TEDDY LESTER : 1945 SEX: Male Ordering Physician: Rhys Horan BRAIN WO CONTRAST MRA, NECK WO CONTRAST MRA : . CLINICAL INDICATION: - FUrther evaluation of R CLINICAL CYTOPATHOLOGIST stroke Comparison Examination: CT 07/22/2017 and duplex Doppler ultrasound 07/12/2017 NECK MRA WITHOUT CONTRAST COMMENT: MR angiography of the neck was performed utilizing 3-D krvf-yu-eilhlb technique with maximum image projection. 3-D postprocessing [...] angiography of the head was performed utilizing htwe-tx-naompi technique with maximum image projection. 3-D postprocessing [...] artery due to origin anatomic variation. [place] demonstrates normal . Vascular anatomy. The anterior, middle, and posterior cerebral arteries are normal. CONCLUSION: MILD ATHEROSCLEROTIC PLAQUE CHANGES SUSPECTED AT THE MID LOWER BASILAR ARTERY WITH VERTEBROBASILAR TORTUOSITY IN AN OTHERWISE UNREMARKABLE INTRACRANIAL MR ANGIOGRAM. RIGHT POSTERIOR CEREBRAL ARTERY APPEARS INTACT. LEFT CLINICAL CYTOPATHOLOGIST IS INTACT BUT NOT WELL SEEN DUE TO ORIGIN. SL: [id number] 07/28/2017 - - Read by: Diogo Ma MD Dictated Date/time: 07/29/17 00:33 Electronically Signed by: Diogo Ma MD 07/29/17 00:51 FINAL REPORT [facility] Brain wo contrast MRA Brain wo contrast MRA Name: TEDDY LESTER : 1945 SEX: Male Ordering Physician: Rhys Horan BRAIN WO CONTRAST MRA, NECK WO CONTRAST MRA : . CLINICAL INDICATION: - FUrther evaluation of R CLINICAL CYTOPATHOLOGIST stroke Comparison Examination: CT 07/22/2017 and duplex Doppler ultrasound 07/12/2017 NECK MRA WITHOUT CONTRAST COMMENT: MR angiography of the neck was performed utilizing 3-D bylf-wi-opoltx technique with maximum image projection. 3-D postprocessing [...] angiography of the head was performed utilizing fktk-[id number]-[id number] technique with maximum image projection. 3-D postprocessing [...] artery due to origin anatomic variation. [place] demonstrates normal . Vascular anatomy. The anterior, middle, and posterior cerebral arteries are normal. CONCLUSION: MILD ATHEROSCLEROTIC PLAQUE CHANGES SUSPECTED AT THE MID LOWER BASILAR ARTERY WITH VERTEBROBASILAR TORTUOSITY IN AN OTHERWISE UNREMARKABLE INTRACRANIAL MR ANGIOGRAM. RIGHT POSTERIOR CEREBRAL ARTERY APPEARS INTACT. LEFT CLINICAL CYTOPATHOLOGIST IS INTACT BUT NOT WELL SEEN DUE TO ORIGIN. SL: [id number] 07/28/2017 - - Read by: Diogo Ma MD Dictated Date/time: 07/29/17 00:33 Electronically Signed by: Diogo Ma MD 07/29/17 00:51 FINAL REPORT [facility] ELECTROLYTES AGAP 12.2 meq/L 10.0 - 20.0 07/28/2017 [facility] ELECTROLYTES eGFR 79 mL/min/1.73m2 07/28/2017 Result Comment: [...] should be multiplied by the estimated BMI. [facility] ELECTROLYTES Calcium Lvl 7.4 mg/dL 8.5 - 10.5 07/28/2017 [facility] ELECTROLYTES CO2 31 meq/L 24 - 32 07/28/2017 [facility] ELECTROLYTES Chloride Lvl 106 meq/L 95 - 109 07/28/2017 [facility] ELECTROLYTES BUN 28 mg/dL 7 - 22 07/28/2017 [facility] ELECTROLYTES Glucose Lvl 87 mg/dL 70 - 99 07/28/2017 [facility] ELECTROLYTES Creatinine Lvl 0.97 mg/dL 0.50 - 1.40 07/28/2017 [facility] ELECTROLYTES Potassium Lvl 3.2 meq/L 3.5 - 5.1 07/28/2017 [facility] ELECTROLYTES Sodium Lvl 146 meq/L 135 - 145 07/28/2017 [facility] RBC 2.93 M/CMM 4.70 - 6.10 07/28/2017 [facility] WBC 7.7 K/CMM 3.7 - 10.4 07/28/2017 [facility] Hgb 9.1 g/dL 14.0 - 18.0 07/28/2017 [facility] MCH 31.2 pg 27.0 - 31.0 07/28/2017 [facility] Platelet 164 K/CMM 133 - 450 07/28/2017 [facility] RDW 16.5 % 11.5 - 14.5 07/28/2017 [facility] MCV 93.1 fL 80.0 - 94.0 07/28/2017 [facility] Hct 27.3 % 42.0 - 54.0 07/28/2017 [facility] MCHC 33.5 g/dL 32.0 - 36.0 07/28/2017 [facility] MPV 9.3 fL 7.4 - 10.4 07/28/2017 [facility] Segs-Bands # 6.3 K/CMM 1.5 - 8.1 07/28/2017 [facility] Basophils 0.6 % 0.0 - 1.0 07/28/2017 [facility] Monocytes # 0.5 K/CMM 0.0 - 0.8 07/28/2017 [facility] Lymphocytes # 0.8 K/CMM 1.0 - 5.5 07/28/2017 [facility] HEMATOLOGY Eosinophils # 0.1 K/CMM 0.0 - 0.5 07/28/2017 [facility] HEMATOLOGY Eosinophils 0.7 % 0.0 - 4.0 07/28/2017 [facility] HEMATOLOGY Monocytes 6.8 % 2.0 - 12.0 07/28/2017 [facility] HEMATOLOGY Lymphocytes 10.2 % 20.0 - 40.0 07/28/2017 [facility] HEMATOLOGY Segs 81.7 % 45.0 - 75.0 07/28/2017 [facility] Chest 1view DX Chest 1view DX Patient Name: TEDDY LESTER : 1945; Age: 72 years y/o Male MR: [id number] Study: Chest 1view DX 07/28/2017 3:00 AM [...] Skyler Monique MD 07/28/17 07:58 FINAL REPORT [facility] ELECTROLYTES Potassium Lvl 3.3 meq/L 3.5 - 5.1 07/27/2017 [facility] CHEM PANEL Magnesium Lvl 2.1 mg/dL 1.8 - 2.4 07/27/2017 [facility] PARATHYROID PROFILE Ca Norm WB 1.04 mMol/L 1.05 - 1.25 07/27/2017 [facility] PARATHYROID PROFILE Ca Ion WB 0.97 mMol/L 1.05 - 1.25 07/27/2017 [facility] CHEM PANEL eGFR 61 mL/min/1.73m2 07/27/2017 Result [...] should be multiplied by the estimated BMI. [facility] CHEM PANEL Total Protein 5.7 g/dL 6.4 - 8.4 07/27/2017 [facility] CHEM PANEL B/C Ratio 34 6 - 25 07/27/2017 [facility] CHEM PANEL Calcium Lvl 6.7 mg/dL 8.5 - 10.5 07/27/2017 Result Comment: Critical Result(s) called to Billy Dominguez at 07/27/2017 05:34 by OSIRIS. Read back OK. [facility] CHEM PANEL A/G Ratio 0.5 0.7 - 1.6 07/27/2017 [facility] CHEM PANEL Globulin 3.7 g/dL 2.7 - 4.2 07/27/2017 [facility] CHEM PANEL Albumin Lvl 2.0 g/dL 3.5 - 5.0 07/27/2017 [facility] CHEM PANEL Bili Total 1.1 mg/dL 0.2 - 1.3 07/27/2017 [facility] CHEM PANEL Alk Phos 87 unit/L 39 - 136 07/27/2017 [facility] CHEM PANEL ALT 54 unit/L 0 - 65 07/27/2017 [facility] CHEM PANEL AST 40 unit/L 0 - 37 07/27/2017 [facility] CHEM PANEL Sodium Lvl 150 meq/L 135 - 145 07/27/2017 [facility] CHEM PANEL Creatinine Lvl 1.19 mg/dL 0.50 - 1.40 07/27/2017 [facility] CHEM PANEL Glucose Lvl 88 mg/dL 70 - 99 07/27/2017 [facility] CHEM PANEL BUN 40 mg/dL 7 - 22 07/27/2017 [facility] CHEM PANEL AGAP 14.7 meq/L 10.0 - 20.0 07/27/2017 [facility] CHEM PANEL CO2 35 meq/L 24 - 32 07/27/2017 [facility] CHEM PANEL Chloride Lvl 103 meq/L 95 - 109 07/27/2017 [facility] CHEM PANEL Phosphorus 2.7 mg/dL 2.5 - 4.5 07/27/2017 [facility] CHEM PANEL Magnesium Lvl 1.8 mg/dL 1.8 - 2.4 07/27/2017 [facility] Platelet 155 K/CMM 133 - 450 07/27/2017 [facility] Hct 25.6 % 42.0 - 54.0 07/27/2017 [facility] MCHC 33.7 g/dL 32.0 - 36.0 07/27/2017 [facility] MPV 9.3 fL 7.4 - 10.4 07/27/2017 [facility] RDW 16.2 % 11.5 - 14.5 07/27/2017 [facility] MCH 30.7 pg 27.0 - 31.0 07/27/2017 [facility] MCV 91.1 fL 80.0 - 94.0 07/27/2017 [facility] Hgb 8.6 g/dL 14.0 - 18.0 07/27/2017 [facility] RBC 2.81 M/CMM 4.70 - 6.10 07/27/2017 [facility] WBC 7.9 K/CMM 3.7 - 10.4 07/27/2017 [facility] Monocytes # 0.6 K/CMM 0.0 - 0.8 07/27/2017 [facility] Basophils 0.1 % 0.0 - 1.0 07/27/2017 [facility] Lymphocytes 7.0 % 20.0 - 40.0 07/27/2017 [facility] Eosinophils 0.3 % 0.0 - 4.0 07/27/2017 [facility] Lymphocytes # 0.6 K/CMM 1.0 - 5.5 07/27/2017 [facility] Segs-Bands # 6.8 K/CMM 1.5 - 8.1 07/27/2017 [facility] Monocytes 7.5 % 2.0 - 12.0 07/27/2017 [facility] Segs 85.1 % 45.0 - 75.0 07/27/2017 [facility] Chest 1view DX Chest 1view DX Chest [...] change from previous study is noted. SL: [id number] 07/27/2017 - - Read by: Yaniv Arreola MD Dictated Date/time: 07/27/17 07:30 Electronically Signed by: Yaniv Arreola MD 07/27/17 07:34 FINAL REPORT [facility] HEMATOLOGY PTT 61.8 s 22.9 - 35.8 07/26/2017 [facility] CHEM PANEL Bili Total 0.9 mg/dL 0.2 - 1.3 07/26/2017 [facility] CHEM PANEL A/G Ratio 0.6 0.7 - 1.6 07/26/2017 [facility] CHEM PANEL Globulin 3.2 g/dL 2.7 - 4.2 07/26/2017 [facility] CHEM PANEL AST 43 unit/L 0 - 37 07/26/2017 [facility] CHEM PANEL ALT 123 unit/L 0 - 65 07/26/2017 [facility] CHEM PANEL Alk Phos 91 unit/L 39 - 136 07/26/2017 [facility] CHEM PANEL B/C Ratio 36 6 - 25 07/26/2017 [facility] CHEM PANEL Albumin Lvl 2.0 g/dL 3.5 - 5.0 07/26/2017 [facility] CHEM PANEL Total Protein 5.2 g/dL 6.4 - 8.4 07/26/2017 [facility] CHEM PANEL Phosphorus 3.2 mg/dL 2.5 - 4.5 07/26/2017 [facility] HEMATOLOGY RBC Morph Normal (07/26/17 4:13 AM) 07/26/2017 [facility] HEMATOLOGY Plt Morph Normal (07/26/17 4:13 AM) 07/26/2017 [facility] LIPIDS CHD Risk 3.21 4.00 - 7.30 07/26/2017 [facility] LIPIDS VLDL 20 07/26/2017 [facility] LIPIDS LDL (Calculated) 33 mg/dL <=99 mg/dL 07/26/2017 [facility] LIPIDS Trig 102 mg/dL <=149 mg/dL 07/26/2017 [facility] LIPIDS HDL 24 mg/dL >=61 mg/dL 07/26/2017 [facility] LIPIDS Chol 77 mg/dL <=199 mg/dL 07/26/2017 [facility] SPECIAL CHEMISTRY Hgb A1C 5.3 % <=5.6 % 07/26/2017 [facility] HEMATOLOGY PT 15.1 s 12.0 - 14.7 07/25/2017 [facility] HEMATOLOGY INR 1.18 0.85 - 1.17 07/25/2017 [facility] HEMATOLOGY PTT 73.5 s 22.9 - 35.8 07/25/2017 [facility] CHEM PANEL Bili Direct 0.2 mg/dL 0.0 - 0.3 07/25/2017 [facility] CHEM PANEL Total Protein 5.4 g/dL 6.4 - 8.4 07/25/2017 [facility] CHEM PANEL Alk Phos 101 unit/L 39 - 136 07/25/2017 [facility] CHEM PANEL AST 45 unit/L 0 - 37 07/25/2017 [facility] CHEM PANEL ALT 122 unit/L 0 - 65 07/25/2017 [facility] CHEM PANEL A/G Ratio 0.5 0.7 - 1.6 07/25/2017 [facility] CHEM PANEL Globulin 3.6 g/dL 2.7 - 4.2 07/25/2017 [facility] CHEM PANEL Albumin Lvl 1.8 g/dL 3.5 - 5.0 07/25/2017 [facility] CHEM PANEL Bili Total 0.4 mg/dL 0.2 - 1.3 07/25/2017 [facility] CHEM PANEL B/C Ratio 37 6 - 25 07/25/2017 [facility] Chest 1view DX Chest 1view DX Patient Name: TEDDY LESTER : 1945; Age: 72 years y/o Male MR: [id number] Study: Chest 1view DX 07/25/2017 3:00 AM [...] other significant new or acute findings. SL: [id number] 07/25/2017 - - Read by: Remigio Varela MD Dictated Date/time: 07/25/17 07:10 Electronically Signed by: Remigio Varela MD 07/25/17 07:17 FINAL REPORT [facility] HEMATOLOGY PTT 78.5 s 22.9 - 35.8 07/24/2017 [facility] CHEM PANEL Bili Indirect 0.3 mg/dL 0.0 - 1.0 07/24/2017 [facility] CHEM PANEL Bili Direct 0.3 mg/dL 0.0 - 0.3 07/24/2017 [facility] Chest 1view DX Chest 1view DX Portable chest: The endotracheal tube, nasogastric tube and right jugular sheath are in satisfactory position. There is no visible pneumothorax or significant effusion. Mild left basilar subsegmental atelectasis is noted. The lungs and pleural spaces are otherwise clear. The cardiac silhouette is mildly enlarged without significant pulmonary venous congestion. There is no other significant change. [id number] 07/24/2017 - - Read by: Esa Danielle MD Dictated Date/time: 07/24/17 08:36 Electronically Signed by: Esa Danielle MD 07/24/17 08:37 FINAL REPORT [facility] CHEM PANEL Bili Indirect 0.3 mg/dL 0.0 - 1.0 07/23/2017 [facility] CHEM PANEL Bili Direct 0.4 mg/dL 0.0 - 0.3 07/23/2017 [facility] Chest 1view DX Chest 1view DX Chest [...] the previous exam, 07/23/2017, 6:14 AM.Right IJ Jonesburg-Mone introducer or catheter is again noted. NG tube tip is present below the level of the hemidiaphragms excluded from view by positioning and/or technique. SL: [id number] 07/23/2017 - - Read by: Jeffrey Huang MD Dictated Date/time: 07/23/17 09:56 Electronically Signed by: Jeffrey Huang MD 07/23/17 10:00 FINAL REPORT [facility] Chest 1view DX Chest 1view DX Portable [...] congestion. There is no other significant change. [id number] 07/23/2017 - - Read by: Esa Danielle MD Dictated Date/time: 07/23/17 08:01 Electronically Signed by: Esa Danielle MD 07/23/17 08:03 FINAL REPORT [facility] HEMATOLOGY Plt Morph Normal (07/22/17 5:31 PM) 07/22/2017 [facility] HEMATOLOGY RBC Morph Normal (07/22/17 5:31 PM) 07/22/2017 [facility] Brain wo contrast CT Brain wo contrast CT Patient Name: TEDDY LESTER : 1945. Age: 72 years. Gender: Male. MR: [id number]. Location: [facility]. EXAM: Brain wo contrast CT. PROVIDED CLINICAL [...] to clarify acuity. On 07/22/2017 4:29 PM REPRESENTATIVE PERSONAL SERVICE, I discussed the watkins findings by telephone with the patient's nurse, Nancy Kilgore RN, who confirmed read-back and agreed to relay the findings to the appropriate attending clinician. SL: [id number] 07/22/2017 - - Read by: Marcus Crowell MD Dictated Date/time: 07/22/17 15:58 Electronically Signed by: Marcus Crowell MD 07/22/17 16:36 FINAL REPORT [facility] ENDOCRINOLOGY Cortisol 14.7 ug/dl 07/22/2017 [facility] BLOOD BANK RESULTS ABO/Rh O POS 07/22/2017 [facility] BLOOD BANK RESULTS Antibody Scrn Negative (07/22/17 8:48 AM) 07/22/2017 [facility] BLOOD BANK RESULTS RBC product Product available (07/22/17 7:17 AM) 07/22/2017 [facility] CHEM PANEL Bili Indirect 0.3 mg/dL 0.0 - 1.0 07/22/2017 [facility] HEMATOLOGY Eosinophils # 0.1 K/CMM 0.0 - 0.5 07/22/2017 [facility] Chest 1view DX Chest 1view DX Portable [...] Ana Lezama MD 07/22/17 05:24 FINAL REPORT [facility] PT 15.1 s 12.0 - 14.7 07/21/2017 [facility] INR 1.18 0.85 - 1.17 07/21/2017 [facility] Chest 1view DX Chest 1view DX Patient Name: TEDDY LESTER : 1945; Age: 72 years y/o Male MR: [id number] * CHEST, portable, 1 view HISTORY: Status [...] lower thoracic and upper lumbar region. SL: [id number] 07/21/2017 - - Read by: Oliver Bryan MD Dictated Date/time: 07/21/17 07:39 Electronically Signed by: Oliver Bryan MD 07/21/17 07:42 FINAL REPORT [facility] Plt Morph Normal (07/20/17 5:32 AM) 07/20/2017 [facility] RBC Morph See Note (07/20/17 5:32 AM) 07/20/2017 [facility] Polychrom slight 07/20/2017 [facility] Chest 1view DX Chest 1view DX Clinical Indication: - post cabg. at bedside Comparison: July 19, 2017 FINDINGS: AP chest radiograph was obtained. MEDIASTINUM: The cardiac silhouette is enlarged. The aorta demonstrates atherosclerotic calcification. There is stable endotracheal and nasogastric tubes and sternal wires. There is a right IJ sheath which terminates in the superior vena cava. There is interval removal of a Jonesburg-Mone catheter. LUNGS: Lung volumes are maintained. There [...] No evidence of pneumothorax or effusions. SL: [id number] 07/20/2017 - - Read by: Uriel Hauser MD Dictated Date/time: 07/20/17 09:22 Electronically Signed by: Uriel Hauser MD 07/20/17 09:24 FINAL REPORT [facility] TOXICOLOGY Vanco Lvl 15.8 ug/ml 07/19/2017 [facility] CHEM PANEL Procalcitonin Lvl 35.20 ng/mL 0.00 - 0.10 07/19/2017 Result Comment: Critical Result(s) called to Eloise Hanley at 07/19/2017 06:06 by BE. Read back OK. [facility] Chest 1view DX Chest 1view DX Clinical indication: line placement, s/p CABG Comparison: Chest 1 view 07/18/2017 TECHNIQUE: AP chest FINDINGS: Lines, tubes and hardware: Jonesburg-Mone catheter tip is in stable position, likely [...] pneumonia. 2. Stable lines and tubes. SL: [id number] 07/19/2017 - - Read by: Ilana Bazan MD Dictated Date/time: 07/19/17 07:24 Electronically Signed by: Ilana Bazan MD 07/19/17 07:28 FINAL REPORT [facility] HEMATOLOGY PT 17.7 s 12.0 - 14.7 07/18/2017 [facility] HEMATOLOGY INR 1.45 0.85 - 1.17 07/18/2017 [facility] TOXICOLOGY Vanco Lvl 21.5 ug/ml 07/18/2017 [facility] Hep C Ab Negative *NA* (07/18/17 10:25 AM) 07/18/2017 [facility] Hep A IgM Negative *NA* (07/18/17 10:25 AM) Negative 07/18/2017 [facility] Hep B Core IgM Negative *NA* (07/18/17 10:25 AM) Negative 07/18/2017 [facility] Hep Bs Ag Negative *NA* (07/18/17 10:25 AM) Negative 07/18/2017 [facility] BLOOD BANK RESULTS RBC product Product available 1 (07/18/17 9:13 AM) 07/18/2017 Result Comment: 07/18/2017 09:21 [id number] notified [facility] CHEM PANEL Lipase Lvl 101 unit/L 73 - 393 07/18/2017 [facility] Liver US Liver US Clinical Indication: - [...] Hepatomegaly with steatosis. 2. Prior cholecystectomy. SL: [id number] 07/18/2017 - - Read by: Ovidio Navarro MD Dictated Date/time: 07/18/17 13:37 Electronically Signed by: Ovidio Navarro MD 07/18/17 13:39 FINAL REPORT [facility] Chest 1view DX Chest 1view DX Portable chest: The endotracheal tube, nasogastric tube left pleural and mediastinal tubes remain in place. The Jonesburg-Mone catheter tip is probably in a branch of the right lower lobe pulmonary artery. There is no visible pneumothorax. Mild bibasilar subsegmental atelectasis is again noted. There is mild left lower lobe infiltrate. The lungs and pleural spaces are otherwise clear. There is no other significant change from the previous day considering phase of respiration. [id number] 07/18/2017 - - Read by: Esa Danielle MD Dictated Date/time: 07/18/17 07:09 Electronically Signed by: Esa Danielle MD 07/18/17 07:12 FINAL REPORT [facility] PARATHYROID PROFILE Ca Ion WB 0.93 mMol/L 1.05 - 1.25 07/18/2017 [facility] PARATHYROID PROFILE Ca Norm WB 0.92 mMol/L 1.05 - 1.25 07/18/2017 [facility] CHEM PANEL Lactic Acid Lvl 1.8 mMol/L 0.5 - 2.2 07/17/2017 [facility] TOXICOLOGY Vanco Lvl 16.3 ug/ml 07/17/2017 [facility] CHEM PANEL Lactic Acid Lvl 4.6 mMol/L 0.5 - 2.2 07/17/2017 Result Comment: Critical Result(s) called to Tanvir Huang at 07/17/2017 12:09 byHA. Read back OK. [facility] CHEM PANEL Lipase Lvl 321 unit/L 73 - 393 07/17/2017 [facility] BLOOD BANK RESULTS Antibody Scrn Negative (07/17/17 7:52 AM) 07/17/2017 [facility] BLOOD BANK RESULTS ABO/Rh O POS 07/17/2017 [facility] BLOOD [facility] RESULTS RBC product Product available 2 (07/17/17 7:37 AM) 07/17/2017 Result Comment: 07/17/2017 09:36 [id number] Called to Tanvir Huang at 07/17/2017 09:32 by Rick Murphy. [facility] HEMATOLOGY Pat Od Value 0.121 07/17/2017 [facility] HEMATOLOGY Pos CO Value 0.400 07/17/2017 [facility] Heparin Ab(TADEO) Negative 3 (07/16/17 11:22 PM) Negative 07/17/2017 Result Comment: This assay detects heparin antibodies of IgG isotype. Antibodies of other isotypes have been reported to cause heparin-induced thrombocytopenia. Therefore, if there is a strong clinical suspicion of HIT, additional study with a serotonin release assay is recommented. [facility] HEMATOLOGY Thrombin Time null 15.0 - 21.2 07/17/2017 Result Comment: Critical Result(s) called to Vinicius Huang at 07/17/2017 14:17 bysmt. Read back OK. [facility] HEMATOLOGY FSP >=20 ug/ml <5 ug/ml 07/17/2017 Result Comment: Critical Result(s) called to Patience Corcoran at 07/17/2017 00:28 by BE. Read back OK. [facility] HEMATOLOGY Fibrinogen Lvl 821 mg/dL 230 - 510 07/17/2017 [facility] HEMATOLOGY D-Dimer 3.77 ug/mL FEU 07/17/2017 [facility] CHEM PANEL Lactic Acid Lvl 5.1 mMol/L 0.5 - 2.2 07/17/2017 Result Comment: Critical Result(s) called to Lauri Corcoran at 07/16/2017 23:48 by MJ. Read back OK. [facility] Chest 1view DX Chest 1view DX Chest [...] change from previous study is noted. SL: [id number] 07/17/2017 - - Read by: Yaniv Arreola MD Dictated Date/time: 07/17/17 08:18 Electronically Signed by: Yaniv Arreola MD 07/17/17 08:20 FINAL REPORT [facility] HEMATOLOGY Polychrom Slight 07/16/2017 [facility] HEMATOLOGY Atypical Lymphs 0.0 % <=0.0 % 07/16/2017 [facility] HEMATOLOGY Bands 7.0 % 0.0 - 11.0 07/16/2017 [facility] CARDIAC ENZYMES BNP 675 pg/mL <=100 pg/mL 07/16/2017 [facility] Ext Lower Venous Doppler Bilat US Ext Lower Venous Doppler Bilat US Patient Name: TEDDYWILLARD LESTER : 1945; Age: 72 years y/o Male MR: [id number] Study: Ext Lower Venous Doppler Bilat US 07/16/2017 10:50 AM REPRESENTATIVE PERSONAL SERVICE Ordering Physician: Clinical Indication: - DVT; Comparison: None Bilateral lower extremity venous Doppler ultrasound exam Normal flow and compressibility throughout the bilateral common femoral, superficial femoral, and popliteal venous segments. Distal augmentation is preserved. Incidentally noted is thrombus within the left greater saphenous vein (superficial venous thrombosis). IMPRESSION: No evidence for lower extremity DVT. Left greater saphenous vein (superficial venous) thrombosis. SL: [id number] 07/16/2017 - - Read by: Rmeigio Varela MD Dictated Date/time: 07/16/17 12:34 Electronically Signed by: Remigio Varela MD 07/16/17 12:36 FINAL REPORT [facility] 1view DX Chest 1view DX Patient Name: TEDDY LESTER : 1945; Age: 72 years y/o Male MR: [id number] Study: Chest 1view DX 07/16/2017 9:57 AM REPRESENTATIVE PERSONAL SERVICE Ordering Physician: Clinical Indication: - resp distress; Comparison: July 16, 2017 at 0409 1 view chest IMPRESSION: Nasogastric tube has been removed. Endotracheal tube satisfactory. Jonesburg-Mone catheter is in satisfactory position. Uncertain of presence of residual chest tube. Improving bibasilar atelectasis. No new infiltrate, pleural effusion or pneumothorax. Stable mild cardiomegaly without overt CHF or pulmonary edema. SL: [id number] 07/16/2017 - - Read by: Remigio Varela MD Dictated Date/time: 07/16/17 10:42 Electronically Signed by: Remigio Varela MD 07/16/17 10:47 FINAL REPORT [facility] HEMATOLOGY Basophils # 0.1 K/CMM 0.0 - 0.2 07/16/2017 [facility] Chest 1view DX Chest 1view DX Patient Name: TEDDY LESTER : 1945; Age: 72 years y/o Male MR: [id number] Study: Chest 1view DX 07/16/2017 3:00 AM REPRESENTATIVE PERSONAL SERVICE Ordering Physician: Clinical Indication: s/p CABG - s/p CABG; Comparison: July 15, 2017 Chest one view Endotracheal tube, Jonesburg-Mone catheter, central line in satisfactory position. Chest [...] for the patient's time of dictation. SL: [id number] 07/16/2017 - - Read by: Reimgio Varela MD Dictated Date/time: 07/16/17 07:15 Electronically [...] UA Ketones Negative mg/dL Negative mg/dL 07/15/2017 [facility] URINE AND STOOL UA Spec Grav 1.008 <=1.030 07/15/2017 [facility] URINE AND STOOL UA Turbidity Clear (07/15/17 2:53 PM) Clear 07/15/[address] [facility] S. aureus Not Detected (07/15/17 11:00 AM) Not Detected 07/15/[address] [facility] S. pyogenes Not Detected (07/15/17 11:00 AM) Not Detected 07/15/[address] [facility] S. agalactiae Not Detected (07/15/17 11:00 AM) Not Detected 07/15/[address] [facility] E. faecalis Not Detected (07/15/17 11:00 AM) Not Detected 07/15/[address] [facility] E. faecium Not Detected (07/15/17 11:00 AM) Not Detected 07/15/[address] [facility] S. epidermidis Not Detected (07/15/17 11:00 AM) Not Detected 07/15/[address] [facility] S. lugdunensis Not Detected (07/15/17 11:00 AM) Not Detected 07/15/[address] [facility] S. anginosus grp Not Detected (07/15/17 11:00 AM) Not Detected 07/15/[address] [facility] vanB Vancomycin Resistance Not Detected (07/15/17 11:00 AM) Not Detected 07/15/[address] [facility] Streptococcus spp. Detected *ABN* (07/15/17 11:00 AM) Not Detected 07/15/[address] [facility] Smiley Vancomycin Resistance Not Detected (07/15/17 11:00 AM) Not Detected 07/15/[address] [facility] Listeria spp. Not Detected (07/15/17 11:00 AM) Not Detected 07/15/[address] [facility] S. pneumoniae Not Detected (07/15/17 11:00 AM) Not Detected 07/15/[address] [facility] Staphylococcus spp. Not Detected (07/15/17 11:00 AM) Not Detected 07/15/[address] [facility] mecA Methicillin Resistance Not Detected (07/15/17 11:00 AM) Not Detected 07/15/2017 [facility] PARATHYROID PROFILE Ca Norm WB 1.03 mMol/L 1.05 - 1.25 07/15/2017 [facility] PARATHYROID PROFILE Ca Ion WB 1.02 mMol/L 1.05 - 1.25 07/15/2017 [facility] HEMATOLOGY Basophils # 0.1 K/CMM 0.0 - 0.2 07/15/2017 [facility] Chest 1view DX Chest 1view DX Portable chest: The endotracheal tube, nasogastric tube, left pleural and mediastinal tubes are in satisfactory position. The Jonesburg-Mone catheter tip is in the main pulmonary artery. There is mild linear scarring or subsegmental atelectasis in the left midlung. There is no visible pneumothorax or significant effusion. The lungs and pleural spaces are otherwise clear. There is no significant change compared to the previous day. [id number] 07/15/2017 - - Read by: Esa Danielle MD Dictated Date/time: 07/15/17 08:41 Electronically Signed by: Esa Danielle MD 07/15/17 08:42 FINAL REPORT [facility] 1view DX Chest 1view DX Study: Frontal chest x-ray compared to prior study from the same day History: Respiratory failure. Comments: The patient is rotated. The cardiomediastinal silhouette is top normal in size. No pneumonia. Emphysematous changes in the lungs. Scarring in the left lower lobe. Endotracheal tube unchanged. Right IJ approach Jonesburg-Mone catheter tip is in the main pulmonary artery Feeding tube tip is at the gastroduodenal junction. Recommend advancing No pleural effusions or pneumothorax. Impression: No acute cardiopulmonary disease. Feeding tube tip is at the gastroduodenal junction. Recommend advancing 07/14/2017 - - Read by: Ceci Mendoza MD Dictated Date/time: 07/14/17 19:38 Electronically Signed by: Ceci Mendoza MD 07/14/17 19:46 FINAL REPORT [facility] Abdomen 1 v for Placement DX Abdomen 1 v for Placement DX Patient Name: TEDDY LESTER : 1945; Age: 72 years Male MR: [id number] Study: Abdomen 1 v for Placement DX 07/14/2017 5:20 PM REPRESENTATIVE PERSONAL SERVICE CLINICAL INDICATION: - ng tube placement COMPARISON: None FINDINGS: Dilated gastric air bubble. Nasogastric tube tip projects at the level of the GE junction. No significant small or large bowel dilatation. Degenerative changes of the thoracolumbar spine with multiple previous sites of vertebroplasty. IMPRESSION: Nasogastric tube tip projects at the level of the GE junction. Recommend advancement. Dilated gastric air bubble. SL: [id number] 07/14/2017 - - Read by: Jordon Roberts MD Dictated Date/time: 07/14/17 21:21 Electronically Signed by: Jordon Roberts MD 07/14/17 21:23 FINAL REPORT [facility] HEMATOLOGY Basophils # 0.1 K/CMM 0.0 - 0.2 07/14/2017 [facility] Chest 1view DX Chest 1view DX Chest [...] change from previous study is noted. SL: [id number] 07/14/2017 - - Read by: Yaniv Arreola MD Dictated Date/time: 07/14/17 09:19 Electronically Signed by: Yaniv Arreola MD 07/14/17 09:25 FINAL REPORT [facility] PTT 30.3 s 22.9 - 35.8 07/13/2017 [facility] PT 18.1 s 12.0 - 14.7 07/13/2017 [facility] INR 1.49 0.85 - 1.17 07/13/2017 [facility] 1view DX Chest 1view DX Clinical Indication: Respiratory distress - s/p cabg Comparison: 07/12/2017 FINDINGS: AP chest radiograph was obtained. MEDIASTINUM: The cardiac silhouette is enlarged. The aorta is unremarkable. There are sternal wires overlying the mediastinum. There is a Jonesburg-Mone catheter which terminates in the proximal right [...] pneumothorax. Support devices as described above. SL: [id number] 07/13/2017 - - Read by: Uriel Hauser MD Dictated Date/time: 07/13/17 15:44 Electronically Signed by: Uriel Hauser MD 07/13/17 15:46 FINAL REPORT [facility] URINE AND STOOL UA Color Ltyellow 07/12/2017 [facility] URINE AND STOOL UA Bili Negative *NA* (07/12/17 2:43 PM) Negative 07/12/2017 [facility] URINE AND STOOL UA Nitrite Negative (07/12/17 2:43 PM) Negative 07/12/2017 [facility] URINE AND STOOL UA Glucose Negative mg/dL Negative mg/dL 07/12/2017 [facility] URINE AND STOOL UA Ketones Negative mg/dL Negative mg/dL 07/12/2017 [facility] URINE AND STOOL UA Protein Negative mg/dL Negative mg/dL 07/12/2017 [facility] URINE AND STOOL UA Bacteria Occasional /HPF None Seen /HPF 07/12/2017 [facility] URINE AND STOOL UA Mucus Few /LPF None Seen /LPF 07/12/2017 [facility] URINE AND STOOL UA WBC 6 /HPF 0 - 5 07/12/2017 [facility] URINE AND STOOL UA Leuk Est Negative (07/12/17 2:43 PM) Negative 07/12/2017 [facility] URINE AND STOOL UA Sq Epi Occasional /LPF Few /LPF 07/12/2017 [facility] URINE AND STOOL UA Blood Negative (07/12/17 2:43 PM) Negative 07/12/2017 [facility] URINE AND STOOL UA Urobilinogen 2.0 mg/dL 0.1 - 1.0 07/12/2017 [facility] URINE AND STOOL UA pH 7.0 5.0 - 8.0 07/12/2017 [facility] URINE AND STOOL UA RBC 11 /HPF 0 - 2 07/12/2017 [facility] URINE AND STOOL UA Trans Epi 24 /LPF <=0 /LPF 07/12/2017 [facility] URINE AND STOOL UA Spec Grav 1.009 <=1.030 07/12/2017 [facility] URINE AND STOOL UA Turbidity Slight *ABN* (07/12/17 2:43 PM) Clear 07/12/2017 [facility] BLOOD BANK RESULTS ABO/Rh O POS 07/12/2017 [facility] BLOOD BANK RESULTS Antibody Scrn Negative (07/12/17 12:56 PM) 07/12/2017 [facility] BLOOD BANK RESULTS FFP product Product available (07/12/17 11:23 AM) 07/12/2017 [facility] BLOOD BANK RESULTS Platelet product Product available (07/12/17 11:23 AM) 07/12/2017 [facility] Chest 1view DX Chest 1view DX Clinical [...] IMPRESSION: No acute infiltrates or effusions. SL: [id number] 07/12/2017 - - Read by: Uriel Hauser MD Dictated Date/time: 07/12/17 12:40 Electronically Signed by: Uriel Hauser MD 07/12/17 12:41 FINAL REPORT [facility] Carotid artery Doppler bilat US Carotid artery Doppler bilat US Patient Name: TEDDY LESTER : 1945; Age: 72 years y/o Male MR: [id number] Study: Carotid artery Doppler bilat US 07/12/2017 9:24 AM REPRESENTATIVE PERSONAL SERVICE Ordering Physician: Kalee Corral Clinical Indication: - [...] occlusion High, low, or Variable undetectable : [id number] 07/12/2017 - - Read by: Remigio Varela MD Dictated Date/time: 07/12/17 11:29 Electronically Signed by: Remigio Varela MD 07/12/17 11:30 FINAL REPORT [facility] Small bowel series DX Small bowel series DX Exam: Small bowel x-ray series Reason for Exam: R10.11 Right upper quadrant pain Comparison Exam: CT scan 06/23/2010 Discussion: On clerical office view, there are no dilated loops of [...] time 1 minute, 32 seconds. Total exam [id number] mGy-cm. Impression: 1. Unremarkable small bowel x-ray series 09/08/2016 - - Read by: Marcus Ferguson MD Dictated Date/time: 09/08/16 13:39 Electronically Signed by: Marcus Ferguson MD 09/08/16 13:46 FINAL REPORT [facility] Vital Signs Vital Sign Value Date Comments Source Respitory Rate 09/04/2017 [facility] Respitory Rate 09/04/2017 [facility] Systolic (mm Hg) 112 09/04/2017 [facility] Diastolic (mm Hg) 72 09/04/2017 [facility] Respitory Rate 20 09/04/2017 [facility] Systolic (mm Hg) 112 09/04/2017 [facility] Diastolic (mm Hg) 72 09/04/2017 [facility] Systolic (mm Hg) 149 09/04/2017 [facility] Diastolic (mm Hg) 84 09/04/2017 [facility] Temperature Oral (F) 98 F 09/04/2017 [facility] Temperature Oral (F) 98.0 F 09/03/2017 [facility] [facility] Temperature Oral (F) 97.8 F 09/03/2017 [facility] Weight 104.545 09/03/2017 [facility] Weight 101.364 09/02/2017 [facility] BMI Calculated 25.82 09/02/2017 [facility] Height 198.12 cm 09/02/2017 [facility] Heart Rate 65 09/02/2017 [facility] Heart Rate 62 08/09/2017 [facility] Temperature Oral (F) 98.1 F 08/09/2017 [facility] Systolic (mm Hg) 149 08/09/2017 [facility] Diastolic (mm Hg) 96 08/09/2017 [facility] Respitory Rate 18 08/09/2017 [facility] Temperature Oral (F) 97.9 F 08/09/2017 [facility] Heart Rate 57 08/09/2017 [facility] Systolic (mm Hg) 107 08/09/2017 [facility] Diastolic (mm Hg) 66 08/09/2017 [facility] Respitory Rate 18 08/08/2017 [facility] Systolic (mm Hg) 146 08/08/2017 [facility] Diastolic (mm Hg) 92 08/08/2017 [facility] Heart Rate 57 08/08/2017 [facility] Temperature Oral (F) 98.0 F 08/08/2017 [facility] Respitory Rate 18 08/08/2017 [facility] BMI Calculated 29.88 07/30/2017 [facility] Height 195.58 cm 07/30/2017 [facility] Weight 114.3 07/30/2017 [facility] Respitory Rate 20 07/29/2017 [facility] Heart Rate 57 07/29/2017 [facility] Systolic (mm Hg) 142 07/29/2017 [facility] Diastolic (mm Hg) 78 07/29/2017 [facility] Temperature Oral (F) 97.5 F 07/29/2017 [facility] Systolic (mm Hg) 128 07/29/2017 [facility] Diastolic (mm Hg) 75 07/29/2017 [facility] Respitory Rate 20 07/29/2017 [facility] Heart Rate 64 07/29/2017 [facility] Temperature Oral (F) 97.7 F 07/29/2017 [facility] Systolic (mm Hg) 153 07/29/2017 [facility] Diastolic (mm Hg) 95 07/29/2017 [facility] Heart Rate 59 07/29/2017 [facility] Respitory Rate 20 07/29/2017 [facility] Temperature Oral (F) 97.8 F 07/29/2017 [facility] Height 198 cm 07/25/2017 [facility] Height 198 cm 07/25/2017 [facility] Height 198 cm 07/25/2017 [facility] Weight 120.6 07/17/2017 [facility] Weight 113.4 07/16/2017 [facility] Weight 112 07/15/2017 [facility] BMI Calculated 28.69 07/12/2017 [facility] Encounters Location Location Details Encounter Type Encounter Number Reason For Visit Attending Provider ADM Date DC Date Status Source [facility] Outpatient [facility] Di[facility] [id number] Jim Hwang 09/08/2016 09/09/2016 [facility] Inpatient [id number] Rand Salcedo 07/12/2017 07/30/2017 [facility] PreAdmit [id number] Rand Salcedo 07/12/2017 07/12/2017 [facility] Rehab [id number] Eugenio Rutherford Jr 07/30/2017 08/09/2017 [facility] OP Therapy Patients [id number] Eugenio Rutherford Jr 08/18/2017 09/17/2017 [facility] Outpatient [id number] Alex Carmona 08/26/2017 08/27/2017 [facility] Inpatient [id number] Erik Andino 09/02/2017 09/04/2017 [facility] Procedures Procedure Code Date Perfomer Comments Source Back fusion [id number] 07/04/2011 [facility] Back fusion [id number] 07/04/[address] [facility] Hernia repair [id number] 07/09/2009 [facility] Hernia repair [id number] 07/09/[address] [facility] CABG x 4 - Coronary artery bypass grafts x 4 [id number] [facility] Excision of gallbladder [id number] [facility] CABG x 4 - Coronary artery bypass grafts x [id number] [facility] Excision of gallbladder [id number] [facility]
[2018-07-10] MEDS ORDERED: ASPIRIN 81 MG CHEW TAB PO ONE (10:45)
[2018-07-10 11:19] LABS: INR 0.9
[2018-07-10 11:20] LABS: PARTIAL THROMBOPLASTIN TIME 25.8 seconds (23.8-35.5)
[2018-07-10 11:22] LABS: BASOPHILS % 0.6 % (0.0-1.0); EOSINOPHILS % 0.8 % (0.0-6.0); HEMATOCRIT 40.8 % (38.2-49.6); HEMOGLOBIN 13.7 g/dL (14.0-18.0); LYMPHOCYTES # (AUTO) 0.7 (1.0-3.2); LYMPHOCYTES % 14.4 % (18.0-39.1); MEAN CORPUSCULAR HEMOGLOBIN 30.3 pg (28-32); MEAN CORPUSCULAR HGB CONC 33.6 g/dL (31-35); MEAN CORPUSCULAR VOLUME 90.3 fL (81-99); MONOCYTES # (AUTO) 0.4 (0.2-0.8); MONOCYTES % 8.2 % (4.4-11.3); NEUTROPHILS # (AUTO) 3.6 (2.1-6.9); PLATELET COUNT 199 x10e3/uL (140-360); RED BLOOD COUNT 4.52 x10e6/uL (4.3-5.7)
[2018-07-10] MEDS ORDERED: DONNATAL/LIDOCAINE/MAALOX 30 ML SUSP PO ONE (11:30)
[2018-07-10] MEDS ORDERED: NIFEDIPINE 10 MG CAP PO ONE (11:30)
[2018-07-10 11:37] LABS: ALBUMIN/GLOBULIN RATIO 1.1 (0.8-2.0); ANION GAP 11.1 mmol/L (8-16); CALCIUM 9.8 mg/dL (8.4-10.2); CREATININE, SERUM 1.2 mg/dL (0.72-1.25); POTASSIUM 4.1 mmol/L (3.5-5.1)
[2018-07-10 11:43] LABS: CREATINE KINASE MB 1.3 ng/mL (0-5.0)
--- NOTE | 2018-07-10 11:59 | Diagnostic Imaging Report ---
Examination: Single AP view of the chest. COMPARISON: November 29, 2018 INDICATION: Chest pain DISCUSSION: Lines/tubes: Sternotomy wires. Lungs: The lungs are well inflated and clear. No pneumonia or pulmonary edema. Pleura: No pleural effusion or pneumothorax. Heart and mediastinum: Heart size normal. Bones and soft tissues: No acute bony abnormalities. IMPRESSION: 1. No acute cardiopulmonary abnormalities. Signed by: Dr. Jose Sands M.D. on 07/10/2018 11:55 AM
[2018-07-10] MEDS ORDERED: KETOROLAC TROMETHAMINE 30 MG/ML VIAL IV STA (12:15)
[2018-07-10 13:47] VITALS: BP 120/88
== END 2018-07-10 14:18 | disposition home or self-care (01) ==
LOC: ER 10:16
DX: R07.89 Other chest pain (principal); R10.13 Epigastric pain; R11.0 Nausea; I10 Essential (primary) hypertension; E78.5 Hyperlipidemia, unspecified; I48.91 Unspecified atrial fibrillation; K21.9 Gastro-esophageal reflux disease without esophagitis; I25.2 Old myocardial infarction; Z86.73 Personal history of transient ischemic attack (TIA), and cerebral infarction without residual deficits; Z95.1 Presence of aortocoronary bypass graft
CPT/HCPCS: 36415; 71045; 80053; 82550; 82553; 84484; 85025; 85610; 85730; 93005; 99284; J1885

== ENCOUNTER 2018-07-20 19:10 | Emergency (ER) | payer MEDICARE ==
[~2018-07-20] VITALS: Ht 198.1 cm; Wt 103.4 kg
[2018-07-20 19:45] LABS: BASOPHILS % 0.3 % (0.0-1.0); EOSINOPHILS % 0.6 % (0.0-6.0); HEMATOCRIT 39.9 % (38.2-49.6); HEMOGLOBIN 13.4 g/dL (14.0-18.0); LYMPHOCYTES # (AUTO) 1.1 (1.0-3.2); LYMPHOCYTES % 16.2 % (18.0-39.1); MEAN CORPUSCULAR HEMOGLOBIN 30.6 pg (28-32); MEAN CORPUSCULAR HGB CONC 33.6 g/dL (31-35); MEAN CORPUSCULAR VOLUME 91.1 fL (81-99); MONOCYTES # (AUTO) 0.6 (0.2-0.8); MONOCYTES % 8.7 % (4.4-11.3); PLATELET COUNT 217 x10e3/uL (140-360); RED BLOOD COUNT 4.38 x10e6/uL (4.3-5.7); RED CELL DISTRIBUTION WIDTH 16.1 % (11.7-14.4)
[2018-07-20] MEDS ORDERED: ASPIRIN 81 MG CHEW TAB PO ONE (19:45)
[2018-07-20 20:03] LABS: ALANINE AMINOTRANSFERASE 10 IU/L (0-55); ALBUMIN 3.8 g/dL (3.5-5.0); ALKALINE PHOSPHATASE 94 IU/L (40-150); ANION GAP 14.1 mmol/L (8-16); BLOOD UREA NITROGEN 21 mg/dL (7-26); BUN/CREATININE RATIO 18 (6-25); CALCIUM 9.2 mg/dL (8.4-10.2); CARBON DIOXIDE 19 mmol/L (22-29); CHLORIDE 105 mmol/L (98-107); CREATINE KINASE 31 IU/L (30-200); CREATININE, SERUM 1.14 mg/dL (0.72-1.25); EST GLOMERULAR FILTRATION RATE > 60 ML/MIN (60-); GLUCOSE 132 mg/dL (74-118); POTASSIUM 4.1 mmol/L (3.5-5.1); SODIUM 134 mmol/L (136-145)
[2018-07-20] MEDS ORDERED: LACTULOSE20 GM/30 M PO (20:09)
[2018-07-20] MEDS ORDERED: CLONAZEPAM0.5 MG PO (20:09)
[2018-07-20] MEDS ORDERED: REGLAN10 MG PO (20:09)
[2018-07-20] MEDS ORDERED: FUROSEMIDE40 MG PO (20:09)
[2018-07-20] MEDS ORDERED: eliquis PO (20:09)
--- NOTE | 2018-07-20 21:28 | Diagnostic Imaging Report ---
EXAM: CT Chest WITH contrast (PE Protocol) INDICATION: Chest pain. Rule out PE. ^r/o pe ^[id number] ^2024 COMPARISON: CTA chest abdomen and pelvis 06/01/2018 TECHNIQUE: Chest was scanned utilizing a multidetector helical scanner from the lung apex through the level of the diaphragm after administration of IV contrast. Thin section reconstructions were obtained with special concentration on the pulmonary arteries. Coronal and sagittal reformations were obtained. Pulmonary embolism protocol was performed. IV CONTRAST: 100 mL of Isovue 370 COMPLICATIONS: None RADIATION DOSE: Total DLP: 678.8 mGy*cm Estimated effective dose: (DLP x 0.014 x size factor) mSv Dose modulation, iterative reconstruction, and/or weight based adjustment of the mA/kV was utilized to reduce the radiation dose to as low as reasonably achievable. FINDINGS: LINES/ TUBES: None. LUNGS AND AIRWAYS: No filling defect is identified within the pulmonary arteries to the segmental level. Biapical scarring. No consolidations. Airways are normal. PLEURA: The pleural spaces are clear. HEART AND MEDIASTINUM: The thyroid gland is normal. Calcified mediastinal and hilar lymph nodes. No mediastinal, hilar or axillary lymphadenopathy. The heart is normal in size.. Trace pericardial fluid. Tortuous aorta.. Main pulmonary artery measures 2.9 cm in diameter and the ascending aorta measures 4 cm, mildly ectatic. Median sternotomy wires and CABG clips. UPPER ABDOMEN: Small hiatal hernia. Cholecystectomy. Colonic diverticulosis without diverticulitis. Left renal 4.1 cm cyst. Right renal 1.7 cm cyst. BONES: Diffuse osseous demineralization. No acute osseous abnormalities. Multiple stable compression deformities and changes of vertebroplasty. SOFT TISSUES: Unremarkable. IMPRESSION: No pulmonary emboli or acute abnormalities. Signed by: DR. Jamel Jose MD on 07/20/2018 9:25 PM
[2018-07-20] MEDS ORDERED: SODIUM CHLORIDE 0.9% 50ML 50 ML ONE (21:49)
[2018-07-20] MEDS ORDERED: IOPAMIDOL 370 MG/ML 200 ML INFUS..BTL INJ ONE (21:49)
[2018-07-21] MEDS ORDERED: ASPIRIN 81 MG CHEW TAB PO ONE
== END 2018-07-21 01:00 | disposition home or self-care (01) ==
LOC: ER 19:10
DX: R07.89 Other chest pain (principal)
CPT/HCPCS: 36415; 71260; 80053; 82550; 82553; 84484; 85025; 93005; 99284; Q9967

== ENCOUNTER 2018-08-31 16:52 | Emergency (ER) | payer MEDICARE ==
[~2018-08-31] VITALS: Ht 198.1 cm; Wt 106.6 kg
[~2018-08-31 16:52] MED LIST changes: +CLONAZEPAM0.5 MG PO; +FUROSEMIDE40 MG PO; +LACTULOSE20 GM/30 M PO; +REGLAN10 MG PO; +eliquis PO
--- OUTSIDE RECORDS SUMMARY | 2018-08-31 16:58 | XMS REPORT | Continuity of Care Document ---
Author Author [facility] Organization Interface Address Unknown Phone Unavailable Problems Problem Status Onset Date Classification Date Reported Comments Source CHEST PAIN Active 05/13/2018 [facility] ACUTE CHEST PAIN, HYPOXIA Active 05/13/2018 [facility] ACUTE CHEST PAIN, HYPOXIA Active 05/13/2018 [facility] R10.31 - RIGHT LOWER QUADRANT PAIN Active 04/13/2018 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 [facility] [place] HYPOTENSION Active 09/02/2017 [facility] CHEST Active 08/26/2017 [facility] Encounter for surgical aftercare following surgery on the circulatory system 08/17/2017 11/15/2017 [facility] HIE Active 08/10/2017 [facility] [place] DEBILITY Active 07/11/2017 [facility] NSTEMI Active 07/11/2017 [facility] ACUTE NSTEMI Active 07/11/2017 [facility] R10.11 - RIGHT UPPER QUADRANT PAIN Active 08/23/2016 [facility] BACKPAIN Active 02/12/2015 [facility] Acute tubular necrosis Active Problem 11/15/2017 [facility] [place] Debility Active Problem 11/15/2017 [facility] [place] Atrial fibrillation with RVR Active Problem 11/15/2017 [facility] [place] CVA (<span [id number]">Confirmed</span>) Active Problem 11/15/2017 [facility] [place] Chest pain Active Problem 11/15/2017 [facility] [place],[facility] Chronic back pain Active Problem 11/15/2017 [facility] [place] Autonomic dysfunction Active Problem 11/15/2017 [facility] [place] History of kyphoplasty Active Problem 11/15/2017 [facility] [place] Hyperlipidemia Active Problem 11/15/2017 [place] [place] Hypertension Active Problem 11/15/2017 ARIAN [place],[facility] Shock liver Active Problem 11/15/2017 [facility] [place] Generalized muscle weakness Active Problem 11/15/2017 [facility] [place] Obesity Active Problem 11/15/2017 [facility] [place] Sepsis with organ dysfunction Active Problem 11/15/2017 [facility] [place] Chest pain Active Problem 09/19/2017 ARIAN [place],[facility] [place] Hypertension Active Problem 09/19/2017 [facility] [place],[facility] [place] Other malaise 11/15/2017 [facility] Non-ST elevation myocardial infarction 11/15/2017 [facility] Acute kidney failure, unspecified 11/15/2017 [facility] Morbid obesity due to excess calories 11/15/2017 [facility] Thrombocytopenia, unspecified 11/15/2017 [facility] Acute posthemorrhagic anemia 11/15/2017 [facility] Hypomagnesemia 11/15/2017 [facility] Parkinson's disease 11/15/2017 [facility] Unspecified atrial fibrillation 11/15/2017 [facility] Atherosclerotic heart disease of hoh coronary artery without angina pectoris 11/15/2017 [facility] Presence of aortocoronary bypass graft 11/15/2017 [facility] Other abnormalities of gait and mobility 11/15/2017 [facility] Hypokalemia 11/15/2017 [facility] Body mass index 29.0-29.9, adult 11/15/2017 [facility] Other acute postprocedural pain 11/15/2017 [facility] Other lack of coordination 11/15/2017 [facility] Abnormal posture 11/15/2017 [facility] Hyperlipidemia, unspecified 11/15/2017 [facility] Other streptococcal sepsis 11/04/2017 [facility] Acute respiratory failure with hypoxia 11/04/2017 [facility] Cardiac tamponade 11/04/2017 [facility] Acute and subacute hepatic failure without coma 11/04/2017 [facility] Acute kidney failure with tubular necrosis 11/04/2017 [facility] Cerebral infarction due to embolism of right posterior cerebral artery 11/04/2017 [facility] Pneumonia, unspecified organism 11/04/2017 [facility] Severe sepsis with septic shock 11/04/2017 [facility] Toxic encephalopathy 11/04/2017 [facility] Pericardial effusion 11/04/2017 [facility] Acidosis 11/04/2017 [facility] Hyperosmolality and hypernatremia 11/04/2017 [facility] Melena 11/04/2017 [facility] Essential hypertension 11/04/2017 [facility] Nosocomial condition 11/04/2017 [facility] Hyperkalemia 11/04/2017 [facility] Restlessness and agitation 11/04/2017 [facility] Urethral stricture, unspecified 11/04/2017 [facility] Hypocalcemia 11/04/2017 [facility] Feeding difficulties 11/04/2017 [facility] Claustrophobia 11/04/2017 [facility] Dysphagia, unspecified 11/04/2017 [facility] OTHER MALAISE Active [facility] NON-ST ELEVATION (NSTEMI) MYOCARDIAL INF Active [facility] CHEST PAIN, UNSPECIFIED Active [facility] ATHSCL HEART DISEASE OF [place] CORONARY Active [facility] HYPOTENSION, UNSPECIFIED Active [facility] HYPOXEMIA Active [facility] Medications Medication Details Route Status Patient Instructions Ordering Provider Order Date Source metoprolol 25 mg oral tablet, extended release 25 mg=1 tab, PO, Daily, # 30 tab, 0 Refill(s), Pharmacy: [facility] [id number] Active 09/04/2017 [facility] metoprolol extended release 25 mg, 1 tab, Route: PO, Drug form: ERTAB, Daily, Start date: 09/04/17 10:45:00 CDT, Duration: 30 day, Stop date: 10/04/17 9:00:00 CDTNotes: (Same as: Toprol XL) Do Not Crush Inactive 09/04/2017 [facility] Protonix 40 mg, 1 tab, Route: PO, Drug form: ECTAB, Daily, Dosing Weight 104.545, kg, Start date: 09/04/17 9:00:00 CDT, Duration: 30 day, Stop date: 10/03/17 9:00:00 CDTNotes: Tablet should not be chewed or crushed. (Same as: Protonix) Inactive 09/04/2017 [facility] ferrous sulfate 325 mg, 1 tab, Route: PO, Drug form: ECTAB, Daily, Dosing Weight 104.545, kg, Start date: 09/04/17 9:00:00 CDT, Duration: 30 day, Stop date: 10/03/17 9:00:00 CDTNotes: Give with food. "Do Not Crush" Inactive 09/04/2017 [facility] Plavix 75 mg, 1 tab, Route: PO, Drug form: TAB, Daily, Dosing Weight 104.545, kg, Start date: 09/04/17 9:00:00 CDT, Duration: 30 day, Stop date: 10/03/17 9:00:00 CDTNotes: (Same As: Plavix) Inactive 09/04/2017 [facility] Aspirin 81 MG Chewable Tablet 81 mg, 1 tab, Route: PO, Drug form: CHEWTAB, Daily, Dosing Weight 104.545, kg, Start date: 09/04/17 9:00:00 CDT, Duration: 30 day, Stop date: 10/03/17 9:00:00 CDTNotes: Take with food. Inactive 09/04/2017 [facility] Amiodarone 200 mg, 1 tab, Route: PO, Drug form: TAB, Daily, Dosing Weight 104.545, kg, Start date: 09/04/17 9:00:00 CDT, Duration: 30 day, Stop date: 10/03/17 9:00:00 CDTNotes: (Same as: Cordarone) Inactive 09/04/2017 [facility] atorvastatin 10 mg, 1 tab, Route: PO, Drug form: TAB, Bedtime, Dosing Weight 104.545, kg, Start date: 09/03/17 21:00:00 CDT, Duration: 30 day, Stop date: 10/02/17 21:00:00 CDTNotes: (Same As: Lipitor) No Longer Active 09/04/2017 [facility] Amiodarone 200 mg, Route: PO, Drug form: TAB, BID, Dosing Weight 104.545, kg, Start date: 09/03/17 17:00:00 CDT, Duration: 30 day, Stop date: 10/03/17 9:00:00 CDT Inactive 09/03/2017 [facility] Carbidopa 25 MG / Levodopa 100 MG Oral Tablet 1 tab, Route: PO, Drug Form: TAB, Dosing Weight 104.545, kg, TID, Start date: 09/03/17 13:00:00 CDT, Duration: 30 day, Stop date: 10/03/17 9:00:00 CDTNotes: Take with milk or food. (Same As: Sinemet) No Longer Active 09/03/2017 [facility] Lactulose 667 MG/ML Oral Solution 30 gm, 45 mL, Route: PO, Drug form: SYRP, ONCE, Dosing Weight 104.545, kg, Start date: 09/03/17 9:43:00 CDT, Stop date: 09/03/17 9:43:00 CDTNotes: (Same as:Chronulac) Inactive 09/03/2017 [facility] d50 syringe 50 gm, 100 mL, Route: IVP, Drug Form: INJ, Dosing Weight 104.545, kg, ONCE, Start date: 09/03/17 9:43:00 CDT, Stop date: 09/03/17 9:43:00 CDT Inactive 09/03/2017 [facility] Kayexalate 45 gm, 180 mL, Route: PO, Drug form: SUSP, ONCE, Dosing Weight 104.545, kg, Start date: 09/03/17 9:43:00 CDT, Stop date: 09/03/17 9:43:00 CDTNotes: (sodium polystyrene sulfonate 15 gm/60 ml LEONARDO) Shake well before use. (Same as: Kayexalate, SPS) Inactive 09/03/2017 [facility] Acetaminophen 325 MG / Hydrocodone Bitartrate 5 MG Oral Tablet [Hatteras 5/325] 1 tab, Route: PO, Drug Form: TAB, Dosing Weight 104.545, kg, Q4H, PRN Pain Score 4-6, Start date: 09/03/17 9:06:00 CDT, Duration: 30 day, Stop date: 10/03/17 9:05:00 CDTNotes: (Same as: Hatteras 325/5) Do not exceed 4gm/day of acetaminophen. No Longer Active 09/03/2017 [facility] Saline Flush 0.9% 10 ml, Route: IVP, Drug Form: INJ, Dosing Weight 101.364, kg, Q12H, Start date: 09/03/17 9:00:00 CDT, Duration: 30 day, Stop date: 10/02/17 21:00:00 CDTNotes: (Same as: BD Posiflush) No Longer Active 09/03/2017 [facility] Famotidine 20 mg, 2 mL, Route: IVP, Drug form: INJ, Q12H, Dosing Weight 101.364, kg, Start date: 09/03/17 9:00:00 CDT, Duration: 30 day, Stop date: 10/02/17 21:00:00 CDTNotes: (Same as: Pepcid) Can be dilute in 5-10cc NS IVP: Slow IV push over at least 2 minutes. Inactive 09/03/2017 [facility] heparin 5,000 unit, 1 mL, Route: SUB-Q, Drug form: INJ, Q12H, Dosing Weight 104.545, kg, Start date: 09/03/17 9:00:00 CDT, Duration: 30 day, Stop date: 10/02/17 21:00:00 CDTNotes: porcine heparin No Longer Active 09/03/2017 [facility] Dextrose 50% Syringe 25 gm, Route: IVP, Dosing Weight 104.545, kg, ONCE, Start date: 09/03/17 8:51:00 CDT, Stop date: 09/03/17 8:51:00 CDT Inactive 09/03/2017 [facility] Insulin regular 10 unit, 0.1 mL, Route: IV, Drug form: INJ, ONCE, Dosing Weight 104.545, kg, Start date: 09/03/17 8:51:00 CDT, Stop date: 09/03/17 8:51:00 CDTNotes: (Same as: Humulin R and NovoLIN R) WASTE: F/P - Black; E - Broken Buy Trash Bin (Do not shake) Inactive 09/03/2017 [facility] Kayexalate 30 gm, Route: PO, Drug form: SUSP, ONCE, Dosing Weight 104.545, kg, Start date: 09/03/17 8:47:00 CDT, Stop date: 09/03/17 8:47:00 CDT Inactive 09/03/2017 [facility] Atropine 0.5 mg, 5 mL, Route: IV, Drug form: INJ, PRN, Dosing Weight 104.545, kg, PRN Bradycardia, Start date: 09/03/17 7:22:00 CDT, Duration: 30 day, Stop date: 10/03/17 7:21:00 CDT No Longer Active 09/03/2017 [facility] cefepime 1 gm, Route: IVPB, ABXQ8H, Dosing Weight 101.364, kg, (CrCl >/=50 ml/min), Start date: 09/03/17 0:00:00 CDT, Duration: 30 day, Stop date: 10/02/17 16:00:00 CDT, ABX Indication: Skin/Soft Tissue InfectionNotes: (Same As: Maxipime) MEDICATION WASTE Product Size: 1000 mg Product Wasted: ___ mg Inactive 09/03/2017 [facility] Fentanyl 25 microgram, 0.5 mL, Route: IVP, Drug form: INJ, Q4H, Dosing Weight 101.364, kg, PRN Pain Score 6-10, Start date: 09/02/17 23:32:00 CDT, Stop date: 10/02/17 23:31:00 CDT, Pain Score 6-10 | Other -See C ommentNotes: (Same as: Sublimaze) Preservative free. No Longer Active 09/03/2017 [facility] Sodium Chloride 0.9% IV 1,000 mL 1,000 mL, Rate: 100 ml/hr, Infuse over: 10 hr, Route: IV, Dosing Weight 101.364 kg, Total Volume: 1,000, Start date: 09/02/17 22:47:00 CDT, Duration: 30 day, Stop date: 10/02/17 22:46:00 CDT, 2.36, m2 No Longer Active 09/03/2017 [facility] Saline Flush 0.9% 10 ml, Route: IVP, Drug Form: INJ, Dosing Weight 101.364, kg, PRN, PRN Line Flush, Start date: 09/02/17 21:55:00 CDT, Duration: 30 day, Stop date: 10/02/17 21:54:00 CDTNotes: (Same as: BD Posiflush) No Longer Active 09/03/2017 [facility] Nystatin 100 UNT/MG Topical Powder 1 appl, Route: TOP, PRN, Drug form: PWDR, PRN For Fungal Prophylaxis, Start date: 09/02/17 21:55:00 CDT, Duration: 30 day, Stop date: 10/02/17 21:54:00 CDTNotes: (Same as:Mycostatin, Nilstat) For external use only. No Longer Active 09/03/2017 [facility] metoprolol tartrate 50 mg oral tablet 50 mg=1 tab, PO, Daily, 0 Refill(s) No Longer Active 09/03/2017 [facility] Tylenol 975 mg, 3 tab, Route: PO, Drug form: TAB, ONCE, Dosing Weight 101.364, kg, Priority: STAT, Start date: 09/02/17 20:36:00 CDT, Stop date: 09/02/17 20:36:00 CDTNotes: Do not exceed 4 gm/day. (Same as: Tylenol) Inactive 09/03/2017 [facility] Sodium Chloride 0.9% IV 1000 mL 1,000 mL, Rate: 100 ml/hr, Infuse over: 10 hr, Route: IV, Dosing Weight 101.364 kg, Total Volume: 1,000, Start date: 09/02/17 18:00:00 CDT, Duration: 30 day, Stop date: 10/02/17 17:59:00 CDT, 2.36, m2 Inactive 09/02/2017 [facility] NS (Bolus) IV 1,000 mL, 1,000 ml/hr, Infuse Over: 1 hr, Route: IV, 1,000, Drug form: INJ, ONCE, Priority: STAT, Dosing Weight 101.364 kg, Start date: 09/02/17 17:59:00 CDT, Stop date: 09/02/17 17:59:00 CDT Inactive 09/02/2017 [facility] Dexamethasone 10 mg, Route: IVP, ONCE, Dosing Weight 101.364, kg, Priority: STAT, Start date: 09/02/17 16:59:00 CDT, Stop date: 09/02/17 16:59:00 CDT Inactive 09/02/2017 [facility] Morphine 2 mg, 1 mL, Route: IVP, Drug form: SOLN, ONCE, Dosing Weight 101.364, kg, Priority: STAT, Start date: 09/02/17 16:51:00 CDT, Stop date: 09/02/17 16:51:00 CDT Inactive 09/02/2017 [facility] Morphine 2 mg, 2 mL, Route: IVP, Drug form: SOLN, ONCE, Dosing Weight 101.364, kg, Priority: STAT, Start date: 09/02/17 13:09:00 CDT, Stop date: 09/02/17 13:09:00 CDTNotes: Preservative free. (Same as: Morphine Sulfate-PF) Inactive 09/02/2017 [facility] tizanidine 2 mg, 0.5 tab, Route: PO, Drug form: TAB, ONCE, Dosing Weight 101.364, kg, Start date: 09/02/17 13:09:00 CDT, Stop date: 09/02/17 13:09:00 CDT, ..Notes: (Same As: Zanaflex) Inactive 09/02/2017 [facility] Zofran ODT 4 mg, Route: PO, Drug form: TABDIS, ONCE, Dosing Weight 101.364, kg, Priority: STAT, Start date: 09/02/17 12:19:00 CDT, Stop date: 09/02/17 12:19:00 CDT Inactive 09/02/2017 [facility] Acetaminophen 325 MG / Hydrocodone Bitartrate 5 MG Oral Tablet [H[place]as 5/325] 1 tab, Route: PO, Drug Form: TAB, Dosing Weight 101.364, kg, ONCE, STAT, Start date: 09/02/17 11:34:00 CDT, Stop date: 09/02/17 11:34:00 CDT Inactive 09/02/2017 [facility] Speech Therapy See Instructions, MISC, ONCALL, Evaluate and Treat 1-2 times per week for 6-8 weeks, # 1 ea, 0 Refill(s) No Longer Active 08/09/2017 [facility] Occupational Therapy See Instructions, MISC, ONCALL, Evaluate and Treat 2-3 times per week for2-4 weeks, # 1 unit, 0 Refill(s) No Longer Active 08/09/2017 [facility] Physical Therapy See Instructions, MISC, ONCALL, Evaluate and Treat 2-3 times per week for 4-6 weeks, # 1 ea, 0 Refill(s) No Longer Active 08/09/2017 [facility] clopidogrel 75 MG Oral Tablet [Plavix] 75 mg=1 tab, PO, Daily, # 30 tab, 0 Refill(s), Pharmacy: [place] [id number] Active 08/09/2017 [facility] acetaminophen 500 mg oral tablet 1,000 mg=2 tab, PO, TID, 0 Refill(s) No Longer Active 08/09/2017 [facility] potassium chloride 20 mEq oral tablet, extended release 20 mEq=1 tab, PO, Daily, # 30 tab, 0 Refill(s), Pharmacy: [place] [id number] No Longer Active 08/09/2017 [facility] pantoprazole 40 MG Enteric Coated Tablet [Protonix] 40 mg=1 tab, PO, Daily, # 30 tab, 0 Refill(s), Pharmacy: [place] [id number] Active 08/09/2017 [facility] metoprolol tartrate 50 mg oral tablet 50 mg=1 tab, PO, Q12H, # 60 tab, 0 Refill(s), Pharmacy: [place] [id number] No Longer Active 08/09/2017 [facility] lisinopril 10 mg oral tablet 10 mg=1 tab, PO, Daily, # 30 tab, 0 Refill(s), Pharmacy: [place] [id number] No Longer Active 08/09/2017 [facility] Furosemide 40 MG Oral Tablet [Lasix] 40 mg=1 tab, PO, Daily, # 30 tab, 0 Refill(s), Pharmacy: [place] [id number] No Longer Active 08/09/2017 [facility] Carbidopa 25 MG / Levodopa 100 MG Oral Tablet 1 tab, PO, TID, # 90 tab, 0 Refill(s), Pharmacy: [place] [id number] Active 08/09/2017 [facility] atorvastatin 10 mg oral tablet 10 mg=1 tab, PO, Bedtime, # 30 tab, 0 Refill(s), Pharmacy: [place] [id number] Active 08/09/2017 [facility] tramadol hydrochloride 50 MG Oral Tablet 50 mg=1 tab, PO, Q4H, PRN Pain Score 6-10, X 5 day, # 20 tab, 0 Refill(s) No Longer Active 08/09/2017 [facility] Aspirin 81 MG Chewable Tablet 81 mg=1 tab, PO, Daily, # 30 tab, 0 Refill(s), Pharmacy: [place] [id number] Active 08/09/2017 [facility] AMIODarone 200 mg oral tablet 200 mg=1 tab, PO, BID, # 60 tab, 0 Refill(s), Pharmacy: [place] [id number] Active 08/09/2017 [facility] ferrous sulfate 325 mg oral enteric coated tablet 325 mg=1 tab, PO, Daily, # 30 tab, 0 Refill(s), Pharmacy: [place] [id number] Active 08/09/2017 [facility] Calcium Carbonate 500 MG Chewable Tablet 1,000 mg=2 tab, PO, Daily, 0 Refill(s) No Longer Active 08/09/2017 [facility] Tylenol 1,000 mg, 2 tab, Route: PO, Drug form: TAB, TID, Dosing Weight 114.3, kg, Start date: 08/08/17 12:00:00 CDT, Duration: 30 day, Stop date: 09/07/17 6:00:00 CDTNotes: Max acetaminophen 4000 mg/day (4 gm/day). (Same as: Tylenol Extra Strength) No Longer Active 08/08/2017 [facility] metoprolol tartrate 25 mg, 1 tab, Route: PO, Drug form: TAB, Q12H, Dosing Weight 114.3, kg, Start date: 08/07/17 21:00:00 CDT, Duration: 30 day, Stop date: 09/06/17 9:00:00 CDTNotes: (Same as: Lopressor) No Longer Active 08/08/2017 [facility] Amiodarone 200 mg, 1 tab, Route: PO, Drug form: TAB, BID, Dosing Weight 114.3, kg, Start date: 08/07/17 21:00:00 CDT, Duration: 30 day, Stop date: 09/06/17 9:00:00 CDTNotes: (Same as: Cordarone) No Longer Active 08/08/2017 [facility] Furosemide 40 MG Oral Tablet [Lasix] 40 mg, 2 tab, Route: PO, Drug form: TAB, Daily, Dosing Weight 114.3, kg, Start date: 08/06/17 9:00:00 CDT, Duration: 30 day, Stop date: 09/04/17 9:00:00 CDTNotes: (Same as: Lasix) May cause GI upset. Give with food or milk. No Longer Active 08/06/2017 [facility] Magnesium Sulfate 2 gm, 50 mL, Route: IVPB, Drug form: INJ, Q2H, Dosing Weight 114.3, kg, Total dose=4 gm, Start date: 08/04/17 16:00:00 CDT, Duration: 2 doses or times, Stop date: 08/04/17 18:00:00 CDTNotes: WASTE: F/P - Sink; E - Municipal Trash Bin Inactive 08/04/2017 [facility] Lasix 40 mg, 4 mL, Route: IVP, Drug form: INJ, BID Diuretic, Dosing Weight 114.3, kg, Start date: 08/04/17 8:00:00 CDT, Duration: 30 day, Stop date: 09/02/17 16:00:00 CDTNotes: (Same as: Lasix) MEDICATION WASTE Product Size: 40 mg Product Wasted: ___ mg No Longer Active 08/04/2017 [facility] Tessalon Perles 100 mg, 1 cap, Route: PO, Drug form: CAP, TID, Dosing Weight 114.3, kg, PRN Cough, Start date: 08/02/17 12:15:00 CDT, Duration: 30 day, Stop date: 09/01/17 12:14:00 CDTNotes: (Same As: Tessalon Perles) "Do Not Crush" No Longer Active 08/02/2017 [facility] Robitussin-AC oral syrup 5 ml, Route: PO, Drug Form: LIQ, Dosing Weight 114.3, kg, Q6H, PRN Cough/Congestion, Start date: 08/02/17 12:15:00 CDT, Duration: 30 day, Stop date: 09/01/17 12:14:00 CDTNotes: (Same As: Robitussin AC) No Longer Active 08/02/2017 [facility] predniSONE 10 mg, 1 tab, Route: PO, Drug form: TAB, Daily, Start date: 08/02/17 12:00:00 CDT, Duration: 1 doses or times, Stop date: 08/02/17 12:00:00 CDTNotes: (Same as: PredniSONE) Take with food. Inactive 08/02/2017 [facility] Magnesium Sulfate 2 gm, 50 mL, Route: IVPB, Drug form: INJ, Q2H, Dosing Weight 114.3, kg, Total dose=4 gm, Start date: 08/02/17 10:00:00 CDT, Duration: 2 doses or times, Stop date: 08/02/17 12:00:00 CDTNotes: WASTE: F/P - Sink; E - Municipal Trash Bin Inactive 08/02/2017 [facility] Lisinopril 10 mg, 2 tab, Route: PO, Drug form: TAB, Daily, Dosing Weight 114.3, kg, Start date: 08/02/17 9:00:00 CDT, Duration: 30 day, Stop date: 08/31/17 9:00:00 CDTNotes: (Same as: Prinivrahat Zestril) No Longer Active 08/02/2017 [facility] Sidney packet 1 pkt, Route: PO, Drug Form: PWDR, Dosing Weight 114.3, kg, BID-Before Meals, Start date: 08/01/17 16:30:00 CDT, Duration: 14 day, Stop date: 08/15/17 7:30:00 CDTNotes: (Same as: Sidney [place]) No Longer Active 08/01/2017 [facility] Tums 500 mg, 1 tab, Route: CHEW, Drug form: CHEWTAB, TID, Dosing Weight 114.3, kg, PRN Indigestion, Start date: 08/01/17 11:13:00 CDT, Duration: 30 day, Stop date: 08/31/17 11:12:00 CDTNotes: (Same As: Tums) Calcium Carbonate 500 uu=330 mg elemental calcium Dose= mg calcium carbonate ( mg elemental calcium) No Longer Active 08/01/2017 [facility] potassium chloride 20 mEq, 1 tab, Route: PO, Drug form: ERTAB, Daily, Dosing Weight 114.3, kg, Start date: 08/01/17 9:00:00 CDT, Stop date: 08/29/17 9:00:00 CDTNotes: (Same as: K-Dur 20) "Do Not Crush" With food and full glass of water No Longer Active 08/01/2017 [facility] predniSONE 20 mg, 2 tab, Route: PO, Drug form: TAB, Daily, Start date: 08/01/17 9:00:00 CDT, Duration: 1 doses or times, Stop date: 08/01/17 9:00:00 CDTNotes: (Same as: PredniSONE) Take with food. Inactive 08/01/2017 [facility] predniSONE 30 mg, 3 tab, Route: PO, Drug form: TAB, Daily, Start date: 07/31/17 9:00:00 CDT, Duration: 1 doses or times, Stop date: 07/31/17 9:00:00 CDTNotes: (Same as: PredniSONE) Take with food. Inactive 07/31/2017 [facility] ferrous sulfate 325 mg, 1 tab, Route: PO, Drug form: ECTAB, Daily, Dosing Weight 114.3, kg, Start date: 07/31/17 9:00:00 CDT, Stop date: 08/29/17 9:00:00 CDTNotes: Give with food. "Do Not Crush" No Longer Active 07/31/2017 [facility] Plavix 75 mg, 1 tab, Route: PO, Drug form: TAB, Daily, Dosing Weight 114.3, kg, Start date: 07/31/17 9:00:00 CDT, Duration: 30 day, Stop date: 08/29/17 12:00:00 CDTNotes: (Same As: Plavix) No Longer Active 07/31/2017 [facility] Lasix 40 mg, 2 tab, Route: PO, Drug form: TAB, BID, Dosing Weight 120.6, kg, Start date: 07/30/17 9:00:00 CDT, Duration: 30 day, Stop date: 08/28/17 17:00:00 CDTNotes: (Same as: Lasix) May cause GI upset. Give with food or milk. No Longer Active 07/30/2017 [facility] calcium carbonate 1,000 mg, 2 tab, Route: PO, Drug form: CHEWTAB, Daily, Dosing Weight 120.6, kg, Start date: 07/30/17 9:00:00 CDT, Duration: 30 day, Stop date: 08/28/17 9:00:00 CDTNotes: (Same As: Tums) Calcium Carbonate 500 nt=888 mg elemental calcium Dose= mg calcium carbonate ( mg elemental calcium) No Longer Active 07/30/2017 [facility] aspirin 81 mg tablet, chewable 81 mg, 1 tab, Route: PO, Drug form: CHEWTAB, Daily, Dosing Weight 112.6, kg, Start date: 07/30/17 9:00:00 CDT, Duration: 30 day, Stop date: 08/28/17 12:00:00 CDTNotes: Take with food. No Longer Active 07/30/2017 [facility] Sinemet 25 mg-100 mg oral tablet 1 tab, Route: PO, Drug Form: TAB, Dosing Weight 120.6, kg, TID, Start date: 07/30/17 9:00:00 CDT, Stop date: 08/28/17 20:00:00 CDTNotes: Take with milk or food. (Same As: Sinemet) No Longer Active 07/30/2017 [facility] Prednisone 1 MG Oral Tablet 40 mg, 2 tab, Route: PO, Drug form: TAB, Daily, Start date: 07/30/17 9:00:00 CDT, Duration: 1 doses or times, Stop date: 07/30/17 9:00:00 CDTNotes: Take with food. Inactive 07/30/2017 [facility] Saline Flush 0.9% 10 ml, Route: IVP, Drug Form: INJ, Dosing Weight 114.3, kg, Q12H, Start date: 07/30/17 9:00:00 CDT, Duration: 30 day, Stop date: 08/28/17 21:00:00 CDTNotes: (Same as: BD Posiflush) No Longer Active 07/30/2017 [facility] Potassium Chloride 40 mEq, 2 tab, Route: PO, Drug form: ERTAB, TID, Dosing Weight 114.3, kg, Start date: 07/30/17 9:00:00 CDT, Duration: 2 day, Stop date: 07/31/17 17:00:00 CDTNotes: (Same as: K-Dur 20) "Do Not Crush" With food and full glass of water No Longer Active 07/30/2017 [facility] lactulose 10 g/15 mL oral syrup 10 gm, 15 mL, Route: PO, Drug form: SYRP, BID, Dosing Weight 120.6, kg, PRN as needed for constipation, Start date: 07/30/17 9:00:00 CDT, Duration: 30 day, Stop date: 08/28/17 17:00:00 CDTNotes: (Same as:Chronulac) No Longer Active 07/30/2017 [facility] Cordarone 400 mg, 2 tab, Route: PO, Drug form: TAB, TID, Dosing Weight 120.6, kg, Start date: 07/30/17 9:00:00 CDT, Stop date: 08/28/17 20:00:00 CDTNotes: (Same as: Cordarone) No Longer Active 07/30/2017 [facility] Compression Stockings 1 ea, Route: TOP, Dosing Weight 114.3, kg, Daily, Start date: 07/30/17 9:00:00 CDT No Longer Active 07/30/2017 [facility] K-Dur 20 20 mEq, 1 tab, Route: PO, Drug form: ERTAB, BID, Dosing Weight 120.6, kg, Start date: 07/30/17 9:00:00 CDT, Duration: 2 day, Stop date: 07/31/17 17:00:00 CDTNotes: (Same as: K-Dur 20) "Do Not Crush" With food and full glass of water Inactive 07/30/2017 [facility] Protonix 40 mg, 1 tab, Route: PO, Drug form: ECTAB, Before Dinner, Dosing Weight 120.6, kg, Start date: 07/30/17 9:00:00 CDT, Stop date: 08/28/17 16:30:00 CDTNotes: Tablet should not be chewed or crushed. (Same as: Protonix) No Longer Active 07/30/2017 [facility] famotidine 20 mg, 1 tab, Route: PO, Drug form: TAB, Q24H, Dosing Weight 112, kg, Start date: 07/30/17 9:00:00 CDT, Stop date: 08/28/17 11:30:00 CDTNotes: (Same as: Pepcid) No Longer Active 07/30/2017 [facility] Magnesium Sulfate 2 gm, 50 mL, Route: IVPB, Drug form: INJ, Q2H, Dosing Weight 114.3, kg, Total dose=4 gm, Start date: 07/30/17 8:00:00 CDT, Duration: 2 doses or times, Stop date: 07/30/17 10:00:00 CDTNotes: WASTE: F/P - Sink; E - Municipal Trash Bin Inactive 07/30/2017 [facility] tramadol hydrochloride 50 MG Oral Tablet 50 mg, 1 tab, Route: PO, Drug form: TAB, Q4H, Dosing Weight 114.3, kg, PRN Pain Score 6-10, Start date: 07/30/17 7:50:00 CDT, Duration: 30 day, Stop date: 08/29/17 7:49:00 CDTNotes: Not to exceed 400mg/day. (Same As: Ultram) No Longer Active 07/30/2017 [facility] Tramadol 25 mg, 0.5 tab, Route: PO, Drug form: TAB, Q4H, Dosing Weight 114.3, kg, PRN Pain Score 4-6, Start date: 07/30/17 7:50:00 CDT, Duration: 30 day, Stop date: 08/29/17 7:49:00 CDTNotes: Not to exceed 400mg/day. (Same As: Ultram) No Longer Active 07/30/2017 [facility] *ATTN RN please updatw HWA in adhoc *ATTN RN please updatw HWA in adhoc, ATTN RN, Drug form: MISC, Route: MISC, QSHIFT, 07/30/17 0:00:00 CDT, Duration: 30 day, Stop date: 08/28/17 16:00:00 CDT No Longer Active 07/30/2017 [facility] Amlodipine 10 MG / Benazepril hydrochloride 40 MG Oral Capsule [Lotrel 10/40] 1 cap, PO, Daily, 0 Refill(s) No Longer Active 07/30/2017 [facility] Lipitor 10 mg, 1 tab, Route: PO, Drug form: TAB, Bedtime, Dosing Weight 112.6, kg, Start date: 07/29/17 22:00:00 CDT, Duration: 30 day, Stop date: 08/28/17 21:00:00 CDTNotes: (Same As: Lipitor) No Longer Active 07/30/2017 [facility] Lopressor 50 mg, 1 tab, Route: PO, Drug form: TAB, Q12H, Dosing Weight 120.6, kg, Start date: 07/29/17 22:00:00 CDT, Stop date: 08/28/17 21:00:00 CDTNotes: (Same as: Lopressor) No Longer Active 07/30/2017 [facility] Solu-CORTEF 25 mg, 0.5 mL, Route: IV, Drug form: PDR/INJ, Q12H, Dosing Weight 120.6, kg, Start date: 07/29/17 22:00:00 CDT, Duration: 30 day, Stop date: 08/28/17 21:00:00 CDTNotes: (Same as: Solu-CORTEF) No Longer Active 07/30/2017 [facility] nitroglycerin 0.4 mg sublingual tablet 0.4 mg, 1 tab, Route: SL, Drug form: TAB, Q5Min, Dosing Weight 112.6, kg, PRN Chest Pain, Start date: 07/29/17 21:40:00 CDT, Duration: 30 day, Stop date: 08/28/17 21:39:00 CDTNotes: (Same as:Nitroquick, Nitrostat) "Do Not Crush" Sublingual tablet No Longer Active 07/30/2017 [facility] glucagon 1 mg, Route: IM, Drug form: PDR/INJ, PRN, Dosing Weight 120.6, kg, PRN Blood Glucose Results, Start date: 07/29/17 21:32:00 CDT, Duration: 30 day, Stop date: 08/28/17 21:31:00 CDT No Longer Active 07/30/2017 [facility] Flexeril 10 mg, 1 tab, Route: PO, Drug form: TAB, TID, Dosing Weight 112.6, kg, PRN Spasm, Start date: 07/29/17 21:30:00 CDT, Duration: 30 day, Stop date: 08/28/17 21:29:00 CDTNotes: (Same As: Flexeril) No Longer Active 07/30/2017 [facility] DuoNeb inhalation solution 3 ml, Route: NEB, Drug Form: SOLN, Dosing Weight 112.6, kg, PRN, PRN Respiratory Protocol, Start date: 07/29/17 21:29:00 CDT, Duration: 30 day, Stop date: 08/28/17 21:28:00 CDTNotes: (Same as: Duoneb) No Longer Active 07/30/2017 [facility] albuterol 0.083% inhalation solution 2.49 mg, 3 mL, Route: NEB, Drug form: SOLN, Q6H, Dosing Weight 112.6, kg, PRN as needed for wheezing, Start date: 07/29/17 21:24:00 CDT, Duration: 30 day, Stop date: 08/28/17 21:23:00 CDTNotes: SEE RT DOCUMENTATION (Same as: Proventil) No Longer Active 07/30/2017 [facility] acetaminophen-hydrocodone 325 mg-5 mg oral tablet 2 tab, Route: PO, Drug Form: TAB, Dosing Weight 112.6, kg, Q4H, PRN Pain Score 4-6, Start date: 07/29/17 21:24:00 CDT, Duration: 30 day, Stop date: 08/28/17 21:23:00 CDTNotes: (Same as: [place] 325/5) Do not exceed 4gm/day of acetaminophen. No Longer Active 07/30/2017 [facility] Tylenol 1,000 mg, 31.23 mL, Route: NG, Drug form: LIQ, Q6H, Dosing Weight 120.6, kg, PRN For Temp > 101 F, Start date: 07/29/17 21:23:00 CDT, Duration: 30 day, Stop date: 08/28/17 21:22:00 CDT No Longer Active 07/30/2017 [facility] Saline Flush 0.9% 10 ml, Route: IVP, Drug Form: INJ, Dosing Weight 114.3, kg, PRN, PRN Line Flush, Start date: 07/29/17 21:16:00 CDT, Duration: 30 day, Stop date: 08/28/17 21:15:00 CDTNotes: (Same as: BD Posiflush) No Longer Active 07/30/2017 [facility] Trazodone 50 mg, 1 tab, Route: PO, Drug form: TAB, Bedtime, Dosing Weight 114.3, kg, PRN Insomnia, Start date: 07/29/17 21:16:00 CDT, Duration: 30 day, Stop date: 08/28/17 21:15:00 CDTNotes: (Same As: Desyrel) No Longer Active 07/30/2017 [facility] clopidogrel 75 MG Oral Tablet [Plavix] 75 mg=1 tab, PO, Daily, # 30 tab, 0 Refill(s), other No Longer Active 07/29/2017 [facility] Carbidopa 25 MG / Levodopa 100 MG Oral Tablet [Sinemet 25-100] 1 tab, NG, TID, 0 Refill(s) No Longer Active 07/29/2017 [facility] atorvastatin 10 mg oral tablet 10 mg=1 tab, PO, Bedtime, 0 Refill(s) No Longer Active 07/29/2017 [facility] AMIODarone 200 mg oral tablet 400 mg=2 tab, OGT, TID, 0 Refill(s) No Longer Active 07/29/2017 [facility] thiamine 100 mg/mL injectable solution 100 mg=1 mL, IVP, Daily, 0 Refill(s) No Longer Active 07/29/2017 [facility] QUEtiapine 25 mg oral tablet 12.5 mg=0.5 tab, PO, Q6H, PRN Anxiety, 0 Refill(s) No Longer Active 07/29/2017 [facility] potassium chloride 20 mEq oral tablet, extended release 20 mEq=1 tab, PO, BID, 0 Refill(s) No Longer Active 07/29/2017 [facility] metoprolol tartrate 50 mg oral tablet 50 mg=1 tab, PO, Q12H, 0 Refill(s) No Longer Active 07/29/2017 [facility] Furosemide 40 MG Oral Tablet [Lasix] 40 mg=1 tab, PO, BID, 0 Refill(s) No Longer Active 07/29/2017 [facility] Potassium Chloride 40 mEq, 2 tab, Route: PO, Drug form: ERTAB, Q1H, Dosing Weight 120.6, kg, Start date: 07/29/17 9:00:00 CDT, Duration: 2 doses or times, Stop date: 07/29/17 10:00:00 CDTNotes: (Same as: K- Dur 20) "Do Not Crush" With food and full glass of water Inactive 07/29/2017 [facility] Magnesium Sulfate 2 gm, 50 mL, Route: IVPB, Drug form: INJ, ONCE, Dosing Weight 120.6, kg, Total dose=2 gm, Start date: 07/29/17 8:33:00 CDT, Stop date: 07/29/17 8:33:00 CDTNotes: WASTE: F/P - Sink; E - Municipal Trash Bin Inactive 07/29/2017 [facility] Calcium Gluconate 1,000 mg, 10 mL, Route: IVPB, ONCE, Dosing Weight 120.6, kg, Start date: 07/29/17 8:27:00 CDT, Stop date: 07/29/17 8:27:00 CDTNotes: WASTE: F/P - Sink; E - Municipal Trash Bin Inactive 07/29/2017 [facility] Valium 5 mg, 1 mL, Route: IVP, Drug form: INJ, ONCE, Dosing Weight 120.6, kg, PRN Procedure, Start date: 07/28/17 14:09:00 CDT, give prior to MRINotes: WASTE: F/P - Black; E - White/Blue Inactive 07/28/2017 [facility] Calcium Carbonate 1,000 mg, 2 tab, Route: PO, Drug form: CHEWTAB, Daily, Dosing Weight 120.6, kg, Start date: 07/28/17 9:00:00 CDT, Duration: 30 day, Stop date: 08/26/17 9:00:00 CDTNotes: (Same As: Roxy) Calcium Carbonate 500 sn=457 mg elemental calcium Dose= mg calcium carbonate ( mg elemental calcium) No Longer Active 07/28/2017 [facility] Protonix 40 mg, 1 tab, Route: PO, Drug form: ECTAB, Daily, Dosing Weight 120.6, kg, Start date: 07/28/17 9:00:00 CDT, Stop date: 08/27/17 9:00:00 CDTNotes: Tablet should not be chewed or crushed. (Same as: Protonix) No Longer Active 07/28/2017 [facility] Ativan 1 mg, 0.5 mL, Route: IVP, Drug form: INJ, ONCE, Dosing Weight 120.6, kg, PRN Anxiety, Start date: 07/28/17 7:00:00 CDTNotes: (Same as: Ativan) No Longer Active 07/28/2017 [facility] Seroquel 12.5 mg, 0.5 tab, Route: PO, Drug form: TAB, Q6H, Dosing Weight 120.6, kg, PRN Anxiety, Start date: 07/27/17 20:41:00 CDT, Duration: 30 day, Stop date: 08/26/17 20:40:00 CDTNotes: (Same as: SEROquel) No Longer Active 07/28/2017 [facility] potassium chloride 20 mEq oral tablet, extended release 40 mEq, 2 tab, Route: PO, Drug form: ERTAB, ONCE, Dosing Weight 120.6, kg, Start date: 07/27/17 16:46:00 CDT, Stop date: 07/27/17 16:46:00 CDT Inactive 07/27/2017 [facility] Furosemide 40 MG Oral Tablet [Lasix] 40 mg, 1 tab, Route: PO, Drug form: TAB, BID, Dosing Weight 120.6, kg, Start date: 07/27/17 9:00:00 CDT, Duration: 30 day, Stop date: 08/25/17 17:00:00 CDTNotes: (Same as: Lasix) May cause GI upset. Give with food or milk. No Longer Active 07/27/2017 [facility] Potassium Chloride 20 mEq, 1 tab, Route: PO, Drug form: ERTAB, BID, Dosing Weight 120.6, kg, Start date: 07/27/17 9:00:00 CDT, Duration: 30 day, Stop date: 08/25/17 17:00:00 CDTNotes: (Same as: K-Dur 20) "Do Not Crush" With food and full glass of water No Longer Active 07/27/2017 [facility] Potassium Chloride 40 mEq, 2 tab, Route: PO, Drug form: ERTAB, ONCE, Dosing Weight 120.6, kg, Start date: 07/27/17 8:56:00 CDT, Stop date: 07/27/17 8:56:00 CDTNotes: (Same as: K-Dur 20) "Do Not Crush" With food and full glass of water Inactive 07/27/2017 [facility] Ceftriaxone 1 gm, Route: IVP, [id number], Dosing Weight 120.6, kg, Start date: 07/27/17 8:00:00 CDT, Duration: 2 day, Stop date: 07/28/17 8:00:00 CDT, ABX Indication: BacteremiaNotes: (Same As: Rocephin). Use with 100 mL NS and infuse over 30 min MEDICATION WASTE Product Size: 1000 mg Product Wasted: ___ mg No Longer Active 07/27/2017 [facility] Lopressor 50 mg, 1 tab, Route: PO, Drug form: TAB, Q12H, Dosing Weight 120.6, kg, Start date: 07/26/17 21:00:00 CDT, Stop date: 08/26/17 21:00:00 CDTNotes: (Same as: Lopressor) No Longer Active 07/27/2017 [facility] Hydrocortisone 25 mg, 0.5 mL, Route: IV, Drug form: PDR/INJ, Q12H, Dosing Weight 120.6, kg, Start date: 07/26/17 21:00:00 CDT, Duration: 30 day, Stop date: 08/25/17 9:00:00 CDTNotes: (Same as: Solu-CORTEF) No Longer Active 07/27/2017 [facility] Aldactone 25 mg, 1 tab, Route: PO, Drug form: TAB, ONCE, Dosing Weight 120.6, kg, Start date: 07/26/17 15:44:00 CDT, Stop date: 07/26/17 15:44:00 CDTNotes: (Same As: Aldactone) Inactive 07/26/2017 [facility] Amiloride 5 mg, Route: PO, Drug form: TAB, ONCE, Dosing Weight 120.6, kg, Start date: 07/26/17 12:52:00 CDT, Stop date: 07/26/17 12:52:00 CDT Inactive 07/26/2017 [facility] Metoprolol 5 mg, 5 mL, Route: IVP, Drug form: INJ, Q6H, Dosing Weight 120.6, kg, Start date: 07/26/17 12:00:00 CDT, Duration: 30 day, Stop date: 08/25/17 6:00:00 CDTNotes: (Same as: Lopressor) Push over 2 minutes Inactive 07/26/2017 [facility] Seroquel 50 mg, 2 tab, Route: PO, Drug form: TAB, Q12H, Dosing Weight 120.6, kg, PRN Agitation, Start date: 07/26/17 9:42:00 CDT, Duration: 30 day, Stop date: 08/25/17 9:41:00 CDTNotes: (Same as: SEROquel) No Longer Active 07/26/2017 [facility] Hydrocortisone 50 mg, 1 mL, Route: IV, Drug form: PDR/INJ, Q12H, Dosing Weight 120.6, kg, Start date: 07/25/17 21:00:00 CDT, Duration: 30 day, Stop date: 08/24/17 9:00:00 CDTNotes: (Same as: Solu-CORTEF) No Longer Active 07/26/2017 [facility] Saline Flush 0.9% 10 ml, Route: IVP, Drug Form: INJ, Dosing Weight 120.6, kg, Q12H, Start date: 07/25/17 21:00:00 CDT, Duration: 30 day, Stop date: 08/24/17 9:00:00 CDTNotes: (Same as: BD Posiflush) No Longer Active 07/26/2017 [facility] Saline Flush 0.9% 10 ml, Route: IVP, Drug Form: INJ, Dosing Weight 120.6, kg, PRN, PRN Line Flush, Start date: 07/25/17 17:47:00 CDT, Duration: 30 day, Stop date: 08/24/17 17:46:00 CDTNotes: (Same as: BD Posiflush) No Longer Active 07/25/2017 [facility] Insulin Lispro 3 unit, 0.03 mL, [...] days from Date No Longer Active 07/25/2017 [facility] Dextrose 50% Syringe 12.5 gm, 25 mL, Route: IVP, Drug Form: INJ, Dosing Weight 120.6, kg, PRN, PRN Blood Glucose Results, Start date: 07/25/17 16:04:00 CDT, Duration: 30 day, Stop date: 08/24/17 16:03:00 CDT No Longer Active 07/25/2017 [facility] Glucagon 1 mg, Route: IM, Drug form: PDR/INJ, PRN, Dosing Weight 120.6, kg, PRN Blood Glucose Results, Start date: 07/25/17 16:04:00 CDT, Duration: 30 day, Stop date: 08/24/17 16:03:00 CDT No Longer Active 07/25/2017 [facility] D5W 1,000 mL 1,000 mL, Rate: 40 ml/hr, Infuse over: 25 hr, Route: IV, Dosing Weight 120.6 kg, Total Volume: 1,000, Start date: 07/25/17 14:08:00 CDT, Duration: 30 day, Stop date: 08/24/17 14:07:00 CDT, 2.58, m2 No Longer Active 07/25/2017 [facility] Amiodarone 400 mg, 2 tab, Route: OGT, Drug form: TAB, TID, Dosing Weight 120.6, kg, Start date: 07/24/17 9:00:00 CDT, Duration: 30 day, Stop date: 08/22/17 17:00:00 CDTNotes: (Same as: Cordarone) No Longer Active 07/24/2017 [facility] Furosemide 100 mg, 10 mL, Rate: 5 mg/hour, Dosing Weight 120.6, kg, Route: IV, Total Volume: 100, Priority: STAT, Start Date: 07/23/17 12:20:00 BLACK PICKLER, Stop date: 08/22/17 12:19:00 CDT, Replace Every: 20 hr, continuo usNotes: (Same as: Lasix) MEDICATION WASTE Product Size: 100 mg Product Wasted: ___ mg No Longer Active 07/23/2017 [facility] Thiamine 100 mg, 1 mL, Route: IVP, Drug form: INJ, Daily, Dosing Weight 120.6, kg, Start date: 07/23/17 9:00:00 BLACK PICKLER, Duration: 30 day, Stop date: 08/21/17 9:00:00 CDTNotes: (Same As: Vitamin B1) No Longer Active 07/23/2017 [facility] Ativan 1 mg, 0.5 mL, Route: IVP, Drug form: INJ, Q6H, Dosing Weight 120.6, kg, PRN Anxiety, Start date: 07/22/17 17:09:00 BLACK PICKLER, Duration: 30 day, Stop date: 08/21/17 17:08:00 CDTNotes: (Same as: Ativan) No Longer Active 07/22/2017 [facility] Carbidopa 25 MG / Levodopa 100 MG Oral Tablet [Sinemet 25-100] 1 tab, Route: NG, Drug Form: TAB, Dosing Weight 120.6, kg, TID, Start date: 07/22/17 17:00:00 BLACK PICKLER, Duration: 30 day, Stop date: 08/21/17 13:00:00 CDTNotes: Take with milk or food. (Same As: Sinemet) No Longer Active 07/22/2017 [facility] Hydrocortisone 50 mg, 1 mL, Route: IV, Drug form: PDR/INJ, Q6Hnow, Dosing Weight 120.6, kg, Priority: STAT, Start date: 07/22/17 13:49:00 BLACK PICKLER, Duration: 30 day, Stop date: 08/21/17 9:00:00 CDTNotes: (Same as: Solu- CORTEF) No Longer Active 07/22/2017 [facility] Lasix 40 mg, 4 mL, Route: IVP, Drug form: INJ, Q8H, Dosing Weight 120.6, kg, Start date: 07/21/17 16:00:00 BLACK PICKLER, Duration: 30 day, Stop date: 08/20/17 8:00:00 CDTNotes: (Same as: Lasix) MEDICATION WASTE Product Size: 40 mg Product Wasted: _0__ mg No Longer Active 07/21/2017 [facility] AMIODarone 900 mg in D5W 500 ml IV 900 mg + Dextrose 5% in Water IV 482 mL 900 mg, 18 mL, Rate: 1 mg/min for 6 hours, then reduce to 0.5 mg/min, Dosing Weight 120.6, kg, Route: IV, Total Volume: 500, Start Date: 07/21/17 12:54:00 BLACK PICKLER, Duration: 30 day, Stop date: 08/20/17 12:53:00 CDT, Replace Every: 24 hrNotes: Central administration only for concentration > 2 mg/ml. Use Glass Bottle or Non PVC Bag "Use 0.22 micron in-line filter" MEDICATION WASTE Product Size: 900 mg Product Wasted: ___ mg No Longer Active 07/21/2017 [facility] Amiodarone 150 mg, 3 mL, Route: IVPB, Drug form: INJ, ONCE, Dosing Weight 120.6, kg, Start date: 07/21/17 12:54:00 BLACK PICKLER, Stop date: 07/21/17 12:54:00 CSTNotes: Central administration only for concentrations > 2 mg/ml. "Recommendation: Use an in-line filter during administration for continuous infusions to reduce the incidence of phlebitis" (Same as Codarone) MEDICATION WASTE Product Size: 150 mg Product Wasted: ___ mg Inactive 07/21/2017 [facility] Magnesium Sulfate 2 gm, Route: IVPB, Drug form: INJ, PRN, Dosing Weight 120.6, kg, PRN Abnormal Lab Result, Start date: 07/21/17 11:24:00 BLACK PICKLER, Duration: 30 day, Stop date: 08/20/17 12:23:00 CDT, FOR ICU USE ONLY Inactive 07/21/2017 [facility] Magnesium Sulfate 2 gm, Route: IVPB, Drug form: INJ, PRN, Dosing Weight 120.6, kg, PRN Abnormal Lab Result, Start date: 07/21/17 11:23:00 BLACK PICKLER, Duration: 30 day, Stop date: 08/20/17 12:22:00 CDT, FOR ICU USE ONLY Inactive 07/21/2017 [facility] Magnesium Sulfate 2 gm, 50 mL, Route: IVPB, Drug form: INJ, PRN, Dosing Weight 120.6, kg, PRN Abnormal Lab Result, Start date: 07/21/17 11:22:00 BLACK PICKLER, Duration: 30 day, Stop date: 08/20/17 12:21:00 CDT, FOR ICU USE ONLYNotes: WASTE: F/P - Sink; E - Municipal Trash Bin No Longer Active 07/21/2017 [facility] heparin additive 25,000 unit [14 unit/kg/hr] + Premix Diluent Dextrose 5% 500 mL 500 mL, Rate: 29.96 ml/hr, Infuse over: 16.7 hr, Route: IV, Dosing Weight 107 kg, Total Volume: 500 mL, Start date: 07/21/17 10:06:00 BLACK PICKLER, Duration: 30 day, Stop date: 08/20/17 10:05:00 CDT, 2.43, m2 No Longer Active 07/21/2017 [facility] Calcium Carbonate 500 MG Chewable Tablet 1,000 mg, 2 tab, Route: PO, Drug form: CHEWTAB, PRN, Dosing Weight 120.6, kg, PRN Abnormal Lab Result, FOR ICU USE ONLY, Start date: 07/21/17 7:01:00 BLACK PICKLER, Duration: 30 day, Stop date: 08/20/17 8:00:00 CDTNotes: (Same As: Tums) Calcium Carbonate 500 ik=601 mg elemental calcium Dose= mg calcium carbonate ( mg elemental calcium) No Longer Active 07/21/2017 [facility] Calcium Gluconate 1 gm, 10 mL, Route: IVPB, PRN, Dosing Weight 120.6, kg, PRN Abnormal Lab Result, Start date: 07/21/17 7:01:00 BLACK PICKLER, Duration: 30 day, Stop date: 08/20/17 8:00:00 CDT, FOR ICU USE ONLYNotes: WASTE: F/P - Sink; E - Municipal Trash Bin No Longer Active 07/21/2017 [facility] Magnesium Oxide 800 mg, 2 tab, Route: PO, Drug form: TAB, PRN, Dosing Weight 120.6, kg, PRN Abnormal Lab Result, FOR ICU USE ONLY, Start date: 07/21/17 7:01:00 BLACK PICKLER, Duration: 30 day, Stop date: 08/20/17 8:00:00 CDTN otes: (Same as: Mag-Ox 400) Magnesium oxide [id number] elemental magnesium Dose=____mg magnesium oxide (___mg elemental magnesium) No Longer Active 07/21/2017 [facility] Magnesium Sulfate 2 gm, 50 mL, Route: IVPB, Drug form: INJ, PRN, Dosing Weight 120.6, kg, PRN Abnormal Lab Result, Start date: 07/21/17 7:01:00 BLACK PICKLER, Duration: 30 day, Stop date: 08/20/17 8:00:00 CDT, FOR ICU USE ONLYNotes: WASTE: F/P - Sink; E - Municipal Trash Bin Inactive 07/21/2017 [facility] potassium phosphate-sodium phosphate 250 mg-280 mg-160 mg oral powder for reconstitution 2 pkt, Route: PO, Drug Form: PDR/REC, Dosing Weight 120.6, kg, PRN, PRN Abnormal Lab Result, FOR ICU USE ONLY, Start date: 07/21/17 7:01:00 BLACK PICKLER, Duration: 30 day, Stop date: 08/20/17 8:00:00 CDTNotes: (Same as: Phos-NaK) Each 1.5 gm pkt has 250mg phosphorous. Mix w/2.5oz water and stir. No Longer Active 07/21/2017 [facility] potassium phosphate 45 mmol, 15 mL, Route: IVPB, PRN, Dosing Weight 120.6, kg, PRN Abnormal Lab Result, Start date: 07/21/17 7:01:00 BLACK PICKLER, Duration: 30 day, Stop date: 08/20/17 8:00:00 CDT, FOR ICU USE ONLYNotes: (Same as: K Phosphate.) 1 mMol phoshate has 1.47 mEq potassium Infuse over 4 hours No Longer Active 07/21/2017 [facility] sodium phosphate 45 mmol, 15 mL, Route: IVPB, PRN, Dosing Weight 120.6, kg, PRN Abnormal Lab Result, Start date: 07/21/17 7:01:00 BLACK PICKLER, Duration: 30 day, Stop date: 08/20/17 8:00:00 CDT, FOR ICU USE ONLY No Longer Active 07/21/2017 [facility] Potassium Chloride 20 mEq, 15 mL, Route: NJ, Drug form: LIQ, PRN, Dosing Weight 120.6, kg, PRN Abnormal Lab Result, Start date: 07/21/17 7:01:00 BLACK PICKLER, Duration: 30 day, Stop date: 08/20/17 8:00:00 CDT, FOR ICU USE ONLYNotes: (Same as: Potassium Chloride) No Longer Active 07/21/2017 [facility] Potassium Chloride 1.33 MEQ/ML Oral Solution 20 mEq, 15 mL, Route: PO, Drug form: LIQ, ONCE, Dosing Weight 120.6, kg, Start date: 07/21/17 6:35:00 BLACK PICKLER, Stop date: 07/21/17 6:35:00 CSTNotes: (Same as: Potassium Chloride) Inactive 07/21/2017 [facility] Potassium Chloride 20 mEq, 10 mL, Route: IVPB, ONCE, Dosing Weight 120.6, kg, Start date: 07/21/17 6:35:00 BLACK PICKLER, Stop date: 07/21/17 6:35:00 CSTNotes: MUST be Diluted before use (Same as: KCl) MEDICATION WASTE Product Size: 40 mEq Product Wasted: 20 mEq Inactive 07/21/2017 [facility] Lasix 40 mg, 4 mL, Route: IVP, Drug form: INJ, BID Diuretic, Dosing Weight 120.6, kg, Start date: 07/20/17 21:00:00 BLACK PICKLER, Duration: 30 day, Stop date: 08/19/17 9:00:00 CDTNotes: (Same as: Lasix) MEDICATION WASTE Product Size: 40 mg Product Wasted: _0__ mg No Longer Active 07/21/2017 [facility] Digoxin 0.125 mg, 0.5 mL, Route: IVP, Drug form: INJ, ONCE, Dosing Weight 120.6, kg, Start date: 07/20/17 19:29:00 BLACK PICKLER, Stop date: 07/20/17 19:29:00 CSTNotes: (Same as: Lanoxin) Inactive 07/21/2017 [facility] Lopressor 5 mg, 5 mL, Route: IVP, Drug form: INJ, Q6H, Dosing Weight 120.6, kg, Start date: 07/20/17 18:00:00 BLACK PICKLER, Duration: 30 day, Stop date: 08/19/17 12:00:00 CDTNotes: (Same as: Lopressor) Push over 2 minutes No Longer Active 07/21/2017 [facility] Potassium Chloride 20 mEq, 10 mL, Route: IVPB, Q2H, Dosing Weight 120.6, kg, Total dose=60 mEq, Start date: 07/20/17 18:00:00 [employer] P[employer]ER, Duration: 3 doses or times, Stop date: 07/20/17 22:00:00 BL[employer] PICKLER, Central LineNotes: MUST be Diluted before use (Same as: KCl) MEDICATION WASTE Product Size: 40 mEq Product Wasted: ___ mEq Inactive 07/21/2017 [facility] Seroquel 50 mg, 2 tab, Route: PO, Drug form: TAB, Q12H, Dosing Weight 120.6, kg, Start date: 07/20/17 17:34:00 [employer], Duration: 30 day, Stop date: 08/19/17 9:00:00 CDTNotes: (Same as: SEROquel) No Longer Active 07/20/2017 [facility] Digoxin 0.25 mg, 1 mL, Route: IVP, Drug form: INJ, ONCE, Dosing Weight 120.6, kg, Start date: 07/20/17 15:03:00 [employer], Stop date: 07/20/17 15:03:00 CSTNotes: (Same as: Lanoxin) Inactive 07/20/2017 [facility] morphine Sulfate 12 mg, 6 mL, Route: PO, Drug form: SOLN, Q1H, PRN Pain Score 7-10, Start date: 07/20/17 14:59:00 [employer], Duration: 30 day, Stop date: 08/19/17 15:58:00 CDTNotes: (Same as:MORPhine Sulfate) No Longer Active 07/20/2017 [facility] morphine Sulfate 6 mg, 3 mL, Route: PO, Drug form: SOLN, Q1H, PRN Pain Score 4-6, Start date: 07/20/17 14:58:00 [employer], Duration: 30 day, Stop date: 08/19/17 15:57:00 CDTNotes: (Same as:MORPhine Sulfate) No Longer Active 07/20/2017 [facility] Lasix 20 mg, Route: IVP, Drug form: INJ, ONCE, Dosing Weight 120.6, kg, Start date: 07/20/17 11:02:00 BLACK PICKLER, Stop date: 07/20/17 11:02:00 BLACK PICKLER Inactive 07/20/2017 [facility] albumin human 25% intravenous solution 12.5 gm, 50 mL, Route: IVPB, Drug form: INJ, ONCE, Dosing Weight 120.6, kg, Start date: 07/20/17 11:01:00 BLACK PICKLER, Stop date: 07/20/17 11:01:00 CSTNotes: LOT#: Mfg: WASTE: F/P - Red; E -Red (Same as: Albuminar) "blood product derivative" Inactive 07/20/2017 [facility] Ceftriaxone 1 gm, Route: IV, Drug form: PDR/INJ, [id number], Dosing Weight 120.6, kg, Start date: 07/20/17 10:00:00 BLACK PICKLER, Duration: 7 day, Stop date: 07/26/17 22:00:00 CDT, ABX Indication: BacteremiaNotes: (Same As: Ro cephin). MEDICATION WASTE Product Size: 1000 mg Product Wasted: _0__ mg No Longer Active 07/20/2017 [facility] Potassium Chloride 20 mEq, 10 mL, Route: IVPB, Q1H, Dosing Weight 120.6, kg, Total dose=40 mEq, Start date: 07/20/17 9:00:00 BLACK PICKLER, Duration: 2 doses or times, Stop date: 07/20/17 10:00:00 CSTNotes: MUST be Diluted before use (Same as: KCl) MEDICATION WASTE Product Size: 40 mEq Product Wasted: _20__ mEq Inactive 07/20/2017 [facility] Vancomycin 1,000 mg, Route: IVPB, ONCE, Dosing Weight 120.6, kg, Start date: 07/19/17 18:00:00 BLACK PICKLER, Stop date: 07/19/17 18:00:00 BLACK PICKLER, ABX Indication: BacteremiaNotes: TIME CRITICAL MEDICATION (Same As: Vancocin) Infusion rate 2001 mg: infuse over 2.5 hours For adult patients only: Round to nearest 250 mg per Medical Staff approval MEDICATION WASTE Product Size: 1000 mg Product Wasted: ___ mg Inactive 07/20/2017 [facility] heparin sodium, porcine 2500 UNT/ML Injectable Solution 5,000 unit, 1 mL, Route: SUB-Q, Drug form: INJ, Q8H, Dosing Weight 120.6, kg, Start date: 07/19/17 16:00:00 BLACK PICKLER, Duration: 30 day, Stop date: 08/18/17 8:00:00 CDTNotes: porcine heparin No Longer Active 07/19/2017 [facility] Lactulose 667 MG/ML Oral Solution 10 gm, 15 mL, Route: PO, Drug form: SYRP, BID, Dosing Weight 120.6, kg, Start date: 07/18/17 17:00:00 BLACK PICKLER, Duration: 30 day, Stop date: 08/17/17 9:00:00 CDTNotes: (Same as:Chronulac) No Longer Active 07/18/2017 [facility] Miralax 17 gm, 1 pkt, Route: PO, Drug form: PWDR, BID, Dosing Weight 120.6, kg, Start date: 07/18/17 17:00:00 BLACK PICKLER, Duration: 30 day, Stop date: 08/17/17 9:00:00 CDTNotes: Dissolve in 8 oz of water or juice. (Same as: Miralax) No Longer Active 07/18/2017 [facility] Acetaminophen 1,000 mg, 31.23 mL, Route: NG, Drug form: LIQ, Q6H, Dosing Weight 120.6, kg, PRN For Temp > 101 F, Start date: 07/18/17 12:02:00 BLACK PICKLER, Duration: 30 day, Stop date: 08/17/17 12:01:00 CDT No Longer Active 07/18/2017 [facility] Mannitol 12.5 gm, 50 mL, Route: IVPB, Drug form: INJ, ONCE, Dosing Weight 120.6, kg, Start date: 07/18/17 10:26:00 BLACK PICKLER, Stop date: 07/18/17 10:26:00 CSTNotes: (Same as: Osmitrol) WASTE: F/P - Sink; E - Elepagosh Bin Inactive 07/18/2017 [facility] Digoxin 250 microgram, 1 mL, Route: IV, Drug form: INJ, ONCE, Dosing Weight 120.6, kg, Start date: 07/18/17 9:47:00 BLACK PICKLER, Stop date: 07/18/17 9:47:00 CSTNotes: (Same as: Lanoxin) Inactive 07/18/2017 [facility] Lopressor 5 mg, 5 mL, Route: IVP, Drug form: INJ, Q6H, Dosing Weight 120.6, kg, PRN Tachycardia, Start date: 07/18/17 9:47:00 BLACK PICKLER, Duration: 30 day, Stop date: 08/17/17 9:46:00 CDT, hr >120Notes: (Same as: Lop ressor) Push over 2 minutes No Longer Active 07/18/2017 [facility] vancomycin + Sodium Chloride 0.9% IV 250 mL 1,000 mg, Route: IVPB, ONCE, Start date: 07/17/17 14:00:00 BLACK PICKLER, Stop date: 07/17/17 14:00:00 BLACK PICKLER, ABX Indication: BacteremiaNotes: TIME CRITICAL MEDICATION (Same As: Vancocin) Infusion rate 2001 mg: infuse over 2.5 hours For adult patients only: Round to nearest 250 mg per Medical Staff approval MEDICATION WASTE Product Size: 1000 mg Product Wasted: ___ mg Inactive 07/17/2017 [facility] heparin 5,000 unit, 5 mL, Route: DIALYSIS, Drug form: INJ, ONCE, Dosing Weight 120.6, kg, Start date: 07/17/17 12:55:00 BLACK PICKLER, Stop date: 07/17/17 12:55:00 BLACK PICKLER Inactive 07/17/2017 [facility] heparin sodium, porcine 2500 UNT/ML Injectable Solution 5,000 unit, 5 mL, Route: DIALYSIS, Drug form: INJ, ONCE, Dosing Weight 120.6, kg, Start date: 07/17/17 11:55:00 BLACK PICKLER, Stop date: 07/17/17 11:55:00 BLACK PICKLER Inactive 07/17/2017 [facility] calcium chloride + Sodium Chloride 0.9% IV 50 mL 1,000 mg, 10 mL, Route: IVPB, Drug form: INJ, ONCE, Dosing Weight 120.6, kg, Start date: 07/17/17 8:19:00 BLACK PICKLER, Stop date: 07/17/17 8:19:00 BLACK PICKLER Inactive 07/17/2017 [facility] sodium bicarbonate 8.4% 150 mEq + Dextrose 5% in Water IV 1,000 mL 1,000 mL, Rate: 100 ml/hr, Infuse over: 11.5 hr, Route: IV, Dosing Weight 120.6 kg, Total Volume: 1,150, Start date: 07/17/17 7:03:00 BLACK PICKLER, Duration: 30 day, Stop date: 08/16/17 7:02:00 CDT, 2.58, m2 No Longer Active 07/17/2017 [facility] Insulin regular 12 unit, Route: SUB-Q, ONCE, Dosing Weight 120.6, kg, Start date: 07/17/17 7:03:00 BLACK PICKLER, Stop date: 07/17/17 7:03:00 BLACK PICKLER Inactive 07/17/2017 [facility] Bumex 3 mg, 12 mL, Route: IV, Drug form: INJ, ONCE, Dosing Weight 120.6, kg, Priority: STAT, Start date: 07/17/17 7:03:00 BLACK PICKLER, Stop date: 07/17/17 7:03:00 CSTNotes: (Same As: Bumex) Inactive 07/17/2017 [facility] d50 syringe Route: IVP, Dosing Weight 120.6, kg, ONCE, Start date: 07/17/17 7:03:00 BLACK PICKLER, Stop date: 07/17/17 7:03:00 BLACK PICKLER Inactive 07/17/2017 [facility] Calcium Chloride 1,000 mg, 10 mL, Route: IVPB, Drug form: INJ, ONCE, Dosing Weight 120.6, kg, Start date: 07/17/17 7:03:00 BLACK PICKLER, Stop date: 07/17/17 7:03:00 BLACK PICKLER Inactive 07/17/2017 [facility] Sodium Chloride 0.9% (Bolus) IV 1,000 mL, 1,000 ml/hr, Infuse Over: 1 hr, Route: IV, ONCE, Priority: STAT, Dosing Weight 120.6 kg, Start date: 07/17/17 7:03:00 BLACK PICKLER, Stop date: 07/17/17 7:03:00 BLACK PICKLER Inactive 07/17/2017 [facility] AMIODarone 900 mg in D5W 500 ml IV 900 mg + Dextrose 5% in Water IV 482 mL 900 mg, 18 mL, Rate: 1 mg/min for 6 hours, then reduce to 0.5 mg/min, Dosing Weight 113.4, kg, Route: IV, Total Volume: 500, Start Date: 07/17/17 5:23:00 BLACK PICKLER, Duration: 30 day, Stop date: 08/16/17 5:22:00 CDT, Replace Every: 24 hrNotes: Central administration only for concentration > 2 mg/ml. Use Glass Bottle or Non PVC Bag "Use 0.22 micron in-line filter" MEDICATION WASTE Product Size: 900 mg Product Wasted: ___ mg Inactive 07/17/2017 [facility] Insulin regular 10 unit, 0.1 mL, Route: IV, Drug form: INJ, ONCE, Dosing Weight 113.4, kg, Start date: 07/17/17 5:12:00 BLACK PICKLER, Stop date: 07/17/17 5:12:00 CSTNotes: (Same as: Humulin R and NovoLIN R) WASTE: F/P - Lit ck; E - Municipal Trash Bin (Do not shake) Inactive 07/17/2017 [facility] Calcium Gluconate 1,000 mg, 10 mL, Route: IVPB, ONCE, Dosing Weight 113.4, kg, Start date: 07/17/17 5:12:00 BLACK PICKLER, Stop date: 07/17/17 5:12:00 CSTNotes: WASTE: F/P - Sink; E - Municipal Trash Bin Inactive 07/17/2017 [facility] sodium bicarbonate 8.4% 50 mEq, 50 ml, Route: IVP, Drug Form: INJ, Dosing Weight 113.4, kg, ONCE, Start date: 07/17/17 5:12:00 BLACK PICKLER, Stop date: 07/17/17 5:12:00 CSTNotes: (sodium bicarb 8.4% (1 mEq/ml) 50 ml syringe) Inactive 07/17/2017 [facility] Dextrose 50% Syringe 25 gm, 50 mL, Route: IVP, Drug Form: INJ, Dosing Weight 113.4, kg, ONCE, Start date: 07/17/17 5:12:00 BLACK PICKLER, Stop date: 07/17/17 5:12:00 BLACK PICKLER Inactive 07/17/2017 [facility] Sodium Chloride 0.9% (Bolus) IV 500 mL, 500 ml/hr, Infuse Over: 1 hr, Route: IV, ONCE, Priority: STAT, Dosing Weight 113.4 kg, Start date: 07/17/17 1:56:00 BLACK PICKLER, Stop date: 07/17/17 1:56:00 BLACK PICKLER Inactive 07/17/2017 [facility] heparin additive 25,000 unit [14 unit/kg/hr] + Premix Diluent Dextrose 5% 500 mL 500 mL, Rate: 28.06 ml/hr, Infuse over: 17.8 hr, Route: IV, Dosing Weight 100.2 kg, Total Volume: 500 mL, Start date: 07/16/17 16:39:00 BLACK PICKLER, Duration: 30 day, Stop date: 08/15/17 16:38:00 CDT, 2.35, m2 No Longer Active 07/16/2017 [facility] Fentanyl 1,250 microgram, 250 mL, Rate: Titrate, Start Dose: 100 microgram/hr, Titration: 25 micrograms/hour every 15 minutes, Goal(s): RASS -1 TO -2, Max Dose: 300 microgram/hr, Route: IV, Dosing Weight 120.6 kg, Total Volume: 250, Priority: STAT, Start date:...Notes: Concentration: 5 microgram / ml No Longer Active 07/16/2017 [facility] NS (Bolus) IV 500 mL, 250 ml/hr, Infuse Over: 2 hr, Route: IV, 500, Drug form: INJ, ONCE, Priority: STAT, Dosing Weight 113.4 kg, Start date: 07/16/17 13:33:00 BLACK PICKLER, Stop date: 07/16/17 13:33:00 BLACK PICKLER Inactive 07/16/2017 [facility] Vasopressin (SENIOR CARE) 40 unit, 2 mL, Rate: 6 ml/hr, Infuse over: 16.7 hr, Start Dose: 0.04 unit/min, Titration: DO NOT TITRATE, Goal(s): MAP >=65 mmHg, Max Dose: 0.04 unit/min, Route: IV, Dosing Weight 113.4 kg, Total Volume: 100 For Sepsis, Start date: 07/16/17 13:06:00...Notes: (Same As: Pitressin, Vasostrict) No Longer Active 07/16/2017 [facility] vancomycin + Sodium Chloride 0.9% IV 250 mL 1,500 mg, Route: IVPB, ONCE, Start date: 07/16/17 13:00:00 BLACK PICKLER, Stop date: 07/16/17 13:00:00 BLACK PICKLER, ABX Indication: BacteremiaNotes: TIME CRITICAL MEDICATION (Same As: Vancocin) Infusion rate 2001 mg: infuse over 2.5 hours For adult patients only: Round to nearest 250 mg per Medical Staff approval MEDICATION WASTE Product Size: 1000 mg Product Wasted: ___ mg Inactive 07/16/2017 [facility] albumin human 5% intravenous solution 25 gm, 500 mL, 500 ml/hr, Route: IV, Drug Form: INJ, Dosing Weight 113.4, kg, ONCE, STAT, Start date: 07/16/17 12:46:00 BLACK PICKLER, Stop date: 07/16/17 12:46:00 CSTNotes: LOT#: Mfg: (Same as: Albuminar) "blood product derivative" WASTE: F/P - Red; E -Red MEDICATION WASTE Product Size: 25 gm Product Wasted: ___ gm Inactive 07/16/2017 [facility] Lopressor 2.5 mg, 2.5 mL, Route: IVP, Drug form: INJ, ONCE, Dosing Weight 113.4, kg, Start date: 07/16/17 11:57:00 BLACK PICKLER, Stop date: 07/16/17 11:57:00 CSTNotes: (Same as: Lopressor) Push over 2 minutes Inactive 07/16/2017 [facility] Vancomycin 1 ea, Route: MISC, ONCALL, Dosing Weight 113.4, kg, Priority: STAT, Start date: 07/16/17 11:29:00 BLACK PICKLER, Duration: 10 day, Stop date: 07/26/17 12:28:00 CDT, Pharmacy to dose, ABX Indication: Bacteremia Inactive 07/16/2017 [facility] Cisatracurium 40 mg, 20 mL, Rate: Titrate, Start Dose: 0.5 microgram/kg/min, Titration: 0.25 microgram/kg/minute every 15 minutes, Goal(s): TOF=2 twitches, Max Dose: 5 microgram/kg/min, Route: IV, Dosing Weight 113.4 kg, Total Volume: 100, Start date: 07/16/17 10...Notes: (Same As: Nimbex) No Longer Active 07/16/2017 [facility] Heparin 40 unit/kg Bolus (Heparin Dosing Weight) Route: IVP, PRN, 4,000 unit, 4 mL, Drug form: INJ, PRN, Heparin Protocol, Start date: 07/16/17 10:25:00 BLACK PICKLER Stop date: 08/15/17 11:24:00 CDT, 30 day Inactive 07/16/2017 [facility] Heparin 80 unit/kg Bolus (Heparin Dosing Weight) Route: IVP, PRN, 8,000 unit, 8 mL, Drug form: INJ, PRN, Heparin Protocol, Start date: 07/16/17 10:25:00 BLACK PICKLER Stop date: 08/15/17 11:24:00 CDT, 30 day Inactive 07/16/2017 [facility] heparin additive 25,000 unit [18 unit/kg/hr] + Premix Diluent Dextrose 5% 500 mL 500 mL, Rate: 36.07 ml/hr, Infuse over: 13.9 hr, Route: IV, Dosing Weight 100.2 kg, Total Volume: 500 mL, Start date: 07/16/17 10:25:00 BLACK PICKLER, Duration: 30 day, Stop date: 08/15/17 10:24:00 CDT, 2.35, m2 Inactive 07/16/2017 [facility] Cisatracurium 15 mg, 7.5 mL, Route: IV, Drug form: INJ, ONCE, Dosing Weight 113.4, kg, Priority: STAT, Start date: 07/16/17 10:15:00 BLACK PICKLER, Stop date: 07/16/17 10:15:00 CSTNotes: (Same As: Nimbex) Inactive 07/16/2017 [facility] Vancomycin 1,000 mg, Route: IVPB, [id number], Dosing Weight 113.4, kg, Start date: 07/16/17 9:00:00 BLACK PICKLER, Duration: 7 day, Stop date: 07/22/17 9:00:00 BLACK PICKLER, ABX Indication: PneumoniaNotes: TIME CRITICAL MEDICATION ( Same As: Vancocin) Infusion rate 2001 mg: infuse over 2.5 hours For adult patients only: Round to nearest 250 mg per Medical Staff approval MEDICATION WASTE Product Size: 1000 mg Product Wasted: ___ mg Inactive 07/16/2017 [facility] Famotidine 20 mg, 1 tab, Route: NG, Drug form: TAB, Q24H, Dosing Weight 112, kg, Start date: 07/15/17 21:00:00 BLACK PICKLER, Stop date: 08/14/17 9:00:00 CDTNotes: (Same as: Pepcid) No Longer Active 07/16/2017 [facility] Amiodarone 150 mg, 3 mL, Route: IVPB, ONCE, Dosing Weight 112, kg, Start date: 07/15/17 20:05:00 BLACK PICKLER, Stop date: 07/15/17 20:05:00 CSTNotes: Central administration only for concentrations > 2 mg/ml. "Recommendation: Use an in-line filter during administration for continuous infusions to reduce the incidence of phlebitis" (Same as Codarone) MEDICATION WASTE Product Size: 150 mg Product Wasted: ___ mg Inactive 07/16/2017 [facility] AMIODarone 900 mg in D5W 500 ml IV 900 mg + Dextrose 5% in Water IV 482 mL 900 mg, 18 mL, Rate: 1 mg/min for 6 hours, then reduce to 0.5 mg/min, Dosing Weight 112, kg, Route: IV, Total Volume: 500, Start Date: 07/15/17 20:05:00 BLACK PICKLER, Duration: 24 hr, Stop date: 07/16/17 20:04:00 BLACK PICKLER, Replace Every: 24 hrNotes: Central administration only for concentration > 2 mg/ml. Use Glass Bottle or Non PVC Bag "Use 0.22 micron in-line filter" MEDICATION WASTE Product Size: 900 mg Product Wasted: ___ mg No Longer Active 07/16/2017 [facility] cefepime 1 gm, Route: IVPB, [id number], Dosing Weight 112, kg, CrCl >/=50 ml/min, Start date: 07/15/17 16:00:00 BLACK PICKLER, Stop date: 07/21/17 20:00:00 BLACK PICKLER, ABX Indication: PneumoniaNotes: (Same As: Maxipime) MEDICATION WASTE Product Size: 1000 mg Product Wasted: __0_ mg No Longer Active 07/15/2017 [facility] Ofirmev 1,000 mg, 100 mL, Route: IV, Drug form: INJ, Q6H, Dosing Weight 112, kg, PRN For Temp > 100.4 F, for > or=50 kg, Start date: 07/15/17 12:55:00 BLACK PICKLER, Duration: 30 day, Stop date: 08/14/17 12:54:00 CDTNotes: Infuse over 15 minutes Do not exceed 4gm/day of acetaminophen MEDICATION WASTE Product Size: 1000 mg Product Wasted: ___ mg No Longer Active 07/15/2017 [facility] Calcium Chloride 10 mg/kg, Route: IVPB, Drug form: SOLN, ONCE, Dosing Weight 112, kg, Start date: 07/15/17 12:35:00 BLACK PICKLER, Stop date: 07/15/17 12:35:00 BLACK PICKLER Inactive 07/15/2017 [facility] cefepime + sterile water 10 mL 1 gm, Route: IV, Drug form: INJ, [id number], Start date: 07/15/17 10:00:00 BLACK PICKLER, Duration: 1 doses or times, Stop date: 07/15/17 10:00:00 BLACK PICKLER, ABX Indication: PneumoniaNotes: (Same As: Maxipime) MEDICATION WASTE Product Size: 1000 mg Product Wasted: _0__ mg Inactive 07/15/2017 [facility] Acetaminophen 1,000 mg, 31.23 mL, Route: NG, Drug form: LIQ, Q6H, Dosing Weight 112, kg, PRN For Temp > 101 F, Start date: 07/15/17 9:12:00 BLACK PICKLER, Duration: 30 day, Stop date: 08/14/17 9:11:00 CDT No Longer Active 07/15/2017 [facility] Docusate 100 mg, 10 mL, Route: PO, Drug form: LIQ, BID, Dosing Weight 112.6, kg, Start date: 07/15/17 9:00:00 BLACK PICKLER, Stop date: 08/13/17 17:00:00 CDTNotes: (Same as: Colace) No Longer Active 07/15/2017 [facility] ocular lubricant 1 appl, Route: BOTH EYES, Q6H, Drug form: OINT, Start date: 07/15/17 0:00:00 BLACK PICKLER, Duration: 30 day, Stop date: 08/13/17 18:00:00 CDTNotes: (Same as: Lacri-Lube, Duratears Naturale, Artificial Tears, and Tears Again ) No Longer Active 07/15/2017 [facility] Lopressor 12.5 mg, 0.5 tab, Route: PO, Drug form: TAB, Q12H, Dosing Weight 112.6, kg, Start date: 07/14/17 21:00:00 BLACK PICKLER, Duration: 30 day, Stop date: 08/13/17 9:00:00 CDTNotes: (Same as: Lopressor) No Longer Active 07/15/2017 [facility] chlorhexidine gluconate 1.2 MG/ML Mouthwash 15 mL, Route: Swab Mouth, Q12H, Drug form: LIQ, Start date: 07/14/17 21:00:00 BLACK PICKLER, Duration: 30 day, Stop date: 08/13/17 9:00:00 CDTNotes: (Same As: Peridex) No Longer Active 07/15/2017 [facility] Morphine 2 mg, Route: IVP, Q4H, Dosing Weight 112.6, kg, PRN Pain Score 4-6, Start date: 07/14/17 19:13:00 BLACK PICKLER, Duration: 30 day, Stop date: 08/13/17 19:12:00 CDT Inactive 07/15/2017 [facility] propofol 10 mg/mL (Titrate.) IV 1,000 mg 1,000 mg, 100 mL, Rate: Titrate, Start Dose: 5 microgram/kg/min, Titration: 5 microgram/kg/min every 15 minutes, Goal(s): -3, Max Dose: 50 mcg/kg/min, Route: IV, Dosing Weight 112.6 kg, Total Volume: 100, Start date: 07/14/17 19:13:00 BLACK PICKLER, Duration: 3...Notes: If Diprivan - change bottle & tubing every 12 hr Per state nursing law propofol can only be given by a nurse if patient is intubated or being intubated (unless the nurse is a [employer] OFFICER). Same as: Diprivan No Longer Active 07/15/2017 [facility] chlorhexidine gluconate 1.2 MG/ML Mouthwash 15 mL, Route: Swab Mouth, PRN, Drug form: LIQ, PRN Other -See Comment, Start date: 07/14/17 19:10:00 BLACK PICKLER, Duration: 30 day, Stop date: 08/13/17 20:09:00 CDTNotes: (Same As: Peridex) No Longer Active 07/15/2017 [facility] Fentanyl 100 microgram, 2 mL, Route: IV, Drug form: INJ, Q2H, Dosing Weight 112.6, kg, PRN Pain Score 6-10, Start date: 07/14/17 13:06:00 BLACK PICKLER, Duration: 30 day, Stop date: 08/13/17 13:05:00 CDTNotes: (Same as: Sublimaze) Preservative free. No Longer Active 07/14/2017 [facility] Fentanyl 100 microgram, 2 mL, Route: IV, Drug form: INJ, Q2H-WA, Dosing Weight 112.6, kg, Start date: 07/14/17 12:00:00 BLACK PICKLER, Duration: 30 day, Stop date: 08/13/17 10:00:00 CDTNotes: (Same as: Sublimaze) Pres ervative free. Inactive 07/14/2017 [facility] Albuterol 0.833 MG/ML / Ipratropium [place] 0.167 MG/ML Inhalant Solution [DuoNeb] 3 ml, Route: NEB, Drug Form: SOLN, Dosing Weight 112.6, kg, PRN, PRN Respiratory Protocol, Start date: 07/14/17 11:27:00 BLACK PICKLER, Duration: 30 day, Stop date: 08/13/17 12:26:00 CDTNotes: (Same as: Duoneb) No Longer Active 07/14/2017 [facility] Albuterol 1 MG/ML Inhalant Solution 2.49 mg, 3 mL, Route: NEB, Drug form: SOLN, Q6H, Dosing Weight 112.6, kg, PRN as needed for wheezing, Start date: 07/14/17 11:26:00 BLACK PICKLER, Duration: 30 day, Stop date: 08/13/17 11:25:00 CDTNotes: SEE RT DOCUMENTATION (Same as: Proventil) No Longer Active 07/14/2017 [facility] clopidogrel 75 mg, 1 tab, Route: PO, Drug form: TAB, Daily, Dosing Weight 112.6, kg, Start date: 07/14/17 9:00:00 BLACK PICKLER, Duration: 30 day, Stop date: 08/12/17 9:00:00 CDTNotes: (Same As: Plavix) No Longer Active 07/14/2017 [facility] Lasix 40 mg, 4 mL, Route: IVP, Drug form: INJ, Q8H-06, Dosing Weight 112.6, kg, Start date: 07/14/17 6:00:00 BLACK PICKLER, Duration: 30 day, Stop date: 08/12/17 22:00:00 CDTNotes: (Same as: Lasix) MEDICATION WASTE Product Size: 40 mg Product Wasted: ___ mg No Longer Active 07/14/2017 [facility] chlorhexidine gluconate 1.2 MG/ML Mouthwash 15 mL, Route: Swab Mouth, Q12H, Drug form: LIQ, Start date: 07/13/17 21:00:00 BLACK PICKLER, Duration: 30 day, Stop date: 08/12/17 9:00:00 CDTNotes: (Same As: Peridex) No Longer Active 07/14/2017 [facility] Famotidine 20 mg, 2 mL, Route: IVPB, Drug form: INJ, Q12H, Dosing Weight 112.6, kg, Start date: 07/13/17 21:00:00 BLACK PICKLER, Duration: 30 day, Stop date: 08/12/17 9:00:00 CDTNotes: (Same as: Pepcid) Can be dilute in 5-10cc NS IVP: Slow IV push over at least 2 minutes. No Longer Active 07/14/2017 [facility] Lopressor 25 mg, 1 tab, Route: PO, Drug form: TAB, Q12H, Dosing Weight 112.6, kg, Start date: 07/13/17 21:00:00 BLACK PICKLER, Duration: 30 day, Stop date: 08/12/17 9:00:00 CDTNotes: (Same as: Lopressor) Inactive 07/14/2017 [facility] Vancomycin 1,750 mg, Route: IVPB, Q12H, Dosing Weight 112.6, kg, Time Critical Medication, Start date: 07/13/17 21:00:00 BLACK PICKLER, Duration: 2 doses or times, Stop date: 07/14/17 9:00:00 BLACK PICKLER, ABX Indication: Surgical P rophylaxisNotes: TIME CRITICAL MEDICATION (Same As: Vancocin) Infusion rate 2001 mg: infuse over 2.5 hours For adult patients only: Round to nearest 250 mg per Medical Staff approval MEDICATION WASTE Product Size: 1000 mg Product Wasted: ___ mg No Longer Active 07/14/2017 [facility] Lopressor 5 mg, 5 mL, Route: IVP, Drug form: INJ, Q6H, Dosing Weight 112.6, kg, Start date: 07/13/17 18:00:00 BLACK PICKLER, Duration: 30 day, Stop date: 08/12/17 12:00:00 CDTNotes: (Same as: Lopressor) Push over 2 minutes No Longer Active 07/14/2017 [facility] ocular lubricant 1 appl, Route: BOTH EYES, Q6H, Drug form: OINT, Start date: 07/13/17 18:00:00 BLACK PICKLER, Duration: 30 day, Stop date: 08/12/17 12:00:00 CDTNotes: (Same as: Lacri-Lube, Duratears Naturale, Artificial Tears, and Tears Again ) No Longer Active 07/14/2017 [facility] Tylenol 1,000 mg, 100 mL, Route: IVPB, Drug form: INJ, Q6H, Dosing Weight 112.6, kg, PRN For Temp > 101 F, Start date: 07/13/17 17:56:00 BLACK PICKLER, Duration: 30 day, Stop date: 08/12/17 17:55:00 CDTNotes: Infuse over 15 minutes Do not exceed 4gm/day of acetaminophen MEDICATION WASTE Product Size: 1000 mg Product Wasted: ___ mg No Longer Active 07/13/2017 [facility] Mupirocin 0.02 MG/MG Topical Ointment 1 appl, Route: NASAL, BID, Drug form: OINT, Start date: 07/13/17 17:00:00 BLACK PICKLER, Duration: 5 day, Stop date: 07/18/17 9:00:00 BLACK PICKLER No Longer Active 07/13/2017 [facility] Dexmedetomidine 200 microgram, 2 mL, Rate: Titrate, Start Dose: 0.2 microgram/kg/hr, Titration: 0.1 microgram/kg/hr every 30 min, Goal(s): -1, Max Dose: 1.5 microgram/kg/hr, Route: IV, Dosing Weight 112.6 kg, Total Volume: 50, Start date: 07/13/17 16:56:00 BLACK PICKLER, Durat... No Longer Active 07/13/2017 [facility] Cefazolin 2 gm, Route: IVP, Drug form: PDR/INJ, Q8H, Dosing Weight 112.6, kg, Start date: 07/13/17 16:00:00 BLACK PICKLER, Duration: 3 doses or times, Stop date: 07/14/17 8:00:00 BLACK PICKLER, ABX Indication: Surgical ProphylaxisNo savanah: (Same As: Ancef, Kefzol) MEDICATION WASTE Product Size: 1000 mg Product Wasted: ___ mg No Longer Active 07/13/2017 [facility] protamine (ANES) 10 mg Route: IV, Drug form: INJ, Start date: 07/13/17 14:06:00 BLACK PICKLER, Stop date: 07/13/17 15:06:00 BLACK PICKLER Inactive 07/13/2017 [facility] EPINEPHrine (ANES) 16 microgram Route: IV, Drug form: INJ, Start date: 07/13/17 13:25:00 BLACK PICKLER, Stop date: 07/13/17 14:25:00 BLACK PICKLER Inactive 07/13/2017 [facility] chlorhexidine gluconate 1.2 MG/ML Mouthwash 15 mL, Route: Swab Mouth, PRN, Drug form: LIQ, PRN Other -See Comment, Start date: 07/13/17 12:59:00 BLACK PICKLER, Duration: 30 day, Stop date: 08/12/17 13:58:00 CDTNotes: (Same As: Peridex) No Longer Active 07/13/2017 [facility] Magnesium Sulfate 2 gm, 50 mL, Route: IVPB, Drug form: INJ, PRN, Dosing Weight 112.6, kg, PRN Abnormal Lab Result, Start date: 07/13/17 12:59:00 BLACK PICKLER, Duration: 30 day, Stop date: 08/12/17 13:58:00 CDT, FOR ICU USE ONLYNotes: WASTE: F/P - Sink; E - Municipal Trash Bin No Longer Active 07/13/2017 [facility] Dextrose 50% Syringe 12.5 gm, 25 mL, Route: IVP, Drug Form: INJ, Dosing Weight 112.6, kg, PRN, PRN Blood Glucose Results, Start date: 07/13/17 12:59:00 BLACK PICKLER, Duration: 30 day, Stop date: 08/12/17 13:58:00 CDT No Longer Active 07/13/2017 [facility] Insulin regular 100 unit + Sodium Chloride 0.9% (titrate) 99 mL 99 mL, Rate: Start Insulin Drip Per ICU Protocol, Dosing Weight 112.6, kg, Route: IVPB, Total Volume: 100, Start Date: 07/13/17 12:59:00 BLACK PICKLER, Duration: 30 day, Stop date: 08/12/17 12:58:00 [...] days from Date No Longer Active 07/13/2017 [facility] Potassium Chloride 10 mEq, 100 mL, Route: IVPB, Drug form: INJ, PRN, Dosing Weight 112.6, kg, PRN Abnormal Lab Result, Via peripheral line, Start date: 07/13/17 12:59:00 BLACK PICKLER, Duration: 30 day, Stop date: 08/12/17 13:58:00 CDT, FOR ICU USE ONLYNotes: Infuse at a rate of 10 mEq/hr. (Same as: KCL) No Longer Active 07/13/2017 [facility] Phenylephrine 50 mg, 5 mL, Rate: Titrate, Start Dose: 35 microgram/min, Titration: 25 microgram/min every 2-5 minutes, Goal(s): for SBP greater than 90, Max Dose: 350 mcg/min, Route: IV, Dosing Weight 112.6 kg, Total Volume: 250, Start date: 07/13/17 12:59:00 BLACK PICKLER,...Notes: (Same as: Giorgi- Synephrine) No Longer Active 07/13/2017 [facility] Norepinephrine 8 mg, 250 mL, Rate: [...] mg / mL No Longer Active 07/13/2017 [facility] Epinephrine 4 mg, 4 mL, Rate: Titrate, Start Dose: 1 microgram/min, Titration: 0.5 microgram/min every 2 - 5 min, Goal(s): for SBP greater than 90, Max Dose: 35 mcg/min, Route: IV, Dosing Weight 112.6 kg, Total Volume: 250, Start date: 07/13/17 12:59:00 BLACK PICKLER, Dura...Notes: (Same as: Adrenalin) Suremed - Injectable drug used as inhalation treatment. MEDICATION WASTE Product Size: 1 mg Product Wasted: ___ mg No Longer Active 07/13/2017 [facility] 1/2NS + KCL 20mEq/L 1000ml (Premix) 1,000 mL 1,000 mL, Rate: 50 ml/hr, Infuse over: 20 hr, Route: IV, Dosing Weight 112.6 kg, Total Volume: 1,000, Start date: 07/13/17 12:59:00 BLACK PICKLER, Duration: 30 day, Stop date: 08/12/17 12:58:00 CDT, 2.49, [id number]: PREMIX IV - Do Not Alter WASTE: F/P - Sink; E - Municipal Trash Bin No Longer Active 07/13/2017 [facility] / NS 500 mL 500 mL, Rate: 10.42 ml/hr, Infuse over: 48 hr, Route: IV, Dosing Weight 112.6 kg, Total Volume: 500, Start date: 07/13/17 12:59:00 BLACK PICKLER, Stop date: 08/12/17 12:58:00 CDT, 2.49, m2 No Longer Active 07/13/2017 [facility] PlasmaLyte A PH-7.4 500 mL 500 mL, Rate: As Directed, Rate: 0 ml/hr, Infuse over: 0, Route: IV, Dosing Weight 112.6 kg, Total Volume: 500, Start date: 07/13/17 12:59:00 BLACK PICKLER, Stop date: 08/12/17 12:58:00 CDT, 2.49, [id number]: WASTE: F/P - Sink; E - Municipal Trash Bin No Longer Active 07/13/2017 [facility] Nicardipine 40 mg, 200 mL, Rate: Titrate, Start Dose: 5 mg/hr, Titration: 2.5 mg/hr every 15 minutes, Goal(s): SBP Notes: Same as: Cardene Concentration: (0.2 mg /1 ml ) No Longer Active 07/13/2017 [facility] Nitroglycerin 100 mg, 250 mL, Rate: Titrate, Start Dose: 0.2 microgram/min, Titration: 0.2 microgram/min every 5 minutes, Goal(s): SBP Notes: (Same as:Tridil) Final conc=0.4 mg/ml. Premix bottle. No Longer Active 07/13/2017 [facility] Morphine 4 mg, 2 mL, Route: IVP, Drug form: INJ, Q1H, Dosing Weight 112.6, kg, PRN Pain Score 7-10, Start date: 07/13/17 12:59:00 BLACK PICKLER, Duration: 30 day, Stop date: 08/12/17 13:58:00 CDTNotes: (Same as:MORPhine Sulfate) No Longer Active 07/13/2017 [facility] Acetaminophen 325 MG / Hydrocodone Bitartrate 5 MG Oral Tablet 2 tab, Route: PO, Drug Form: TAB, Dosing Weight 112.6, kg, Q4H, PRN Pain Score 4-6, Start date: 07/13/17 12:59:00 BLACK PICKLER, Duration: 30 day, Stop date: 08/12/17 12:58:00 CDTNotes: (Same as: Hatteras 325/5) Do not exceed 4gm/day of acetaminophen. No Longer Active 07/13/2017 [facility] Acetaminophen 650 mg, 2 tab, Route: PO, Drug form: TAB, Q4H, Dosing Weight 112.6, kg, PRN Pain 1-3/Temp > 100.4 F, Start date: 07/13/17 12:59:00 BLACK PICKLER, Duration: 30 day, Stop date: 08/12/17 12:58:00 CDTNotes: Do not exceed 4 gm/day. (Same as: Tylenol) No Longer Active 07/13/2017 [facility] Ondansetron 4 mg, 2 mL, Route: IVP, Drug form: INJ, Q8H, Dosing Weight 112.6, kg, PRN Nausea & Vomiting, Start date: 07/13/17 12:59:00 BLACK PICKLER, Duration: 30 day, Stop date: 08/12/17 12:58:00 CDTNotes: (Same as: Zofran) MEDICATION WASTE Product Size: 4 mg Product Wasted: ___ mg No Longer Active 07/13/2017 [facility] Amicar (ANES) Route: IV, Drug form: INJ, ONCE, Stop date: 07/13/17 12:39:00 BLACK PICKLER Inactive 07/13/2017 [facility] heparin (ANES) 1000 unit Route: IV, Drug form: INJ, Start date: 07/13/17 11:15:00 BLACK PICKLER, Stop date: 07/13/17 12:15:00 BLACK PICKLER Inactive 07/13/2017 [facility] Amicar (ANES) 5000 mg + Route: IV, Drug form: INJ, Dosing Weight 112.6, kg, Start date: 07/13/17 10:40:00 BLACK PICKLER, Stop date: 07/13/17 11:40:00 BLACK PICKLER Inactive 07/13/2017 [facility] Amidate (ANES) Route: IV, Drug form: INJ, ONCE, Stop date: 07/13/17 10:19:00 BLACK PICKLER Inactive 07/13/2017 [facility] midazolam (ANES) Route: IV, Drug form: SOLN, ONCE, Stop date: 07/13/17 10:19:00 BLACK PICKLER Inactive 07/13/2017 [facility] cefepime (ANES) 1000 mg Route: IV, Drug form: INJ, Start date: 07/13/17 10:15:00 BLACK PICKLER, Stop date: 07/13/17 11:15:00 BLACK PICKLER Inactive 07/13/2017 [facility] vancomycin (ANES) 1000 mg Route: IV, Drug form: INJ, Start date: 07/13/17 10:15:00 BLACK PICKLER, Stop date: 07/13/17 11:15:00 BLACK PICKLER Inactive 07/13/2017 [facility] ePHEDrine (ANES) Route: IV, Drug form: INJ, ONCE, Stop date: 07/13/17 9:59:00 BLACK PICKLER Inactive 07/13/2017 [facility] propofol (ANES) Route: IV, Drug form: INJ, ONCE, Stop date: 07/13/17 9:39:00 BLACK PICKLER Inactive 07/13/2017 [facility] fentaNYL (ANES) Route: IV, Drug form: INJ, ONCE, Stop date: 07/13/17 9:39:00 BLACK PICKLER Inactive 07/13/2017 [facility] lidocaine (ANES) Route: IV, Drug form: INJ, ONCE, Stop date: 07/13/17 9:39:00 BLACK PICKLER Inactive 07/13/2017 [facility] rocuronium (ANES) Route: IV, Drug form: INJ, ONCE, Stop date: 07/13/17 9:39:00 BLACK PICKLER Inactive 07/13/2017 [facility] nitroglycerin (ANES) 400 microgram Route: IV, Drug form: INJ, Start date: 07/13/17 9:36:00 BLACK PICKLER, Stop date: 07/13/17 10:36:00 BLACK PICKLER Inactive 07/13/2017 [facility] norepinephrine (ANES) 32 microgram Route: IV, Drug form: INJ, Start date: 07/13/17 9:34:00 BLACK PICKLER, Stop date: 07/13/17 10:34:00 BLACK PICKLER Inactive 07/13/2017 [facility] Sodium Chloride 0.9% IV (ANES) 1000 mL Route: IV, Total Volume: 1,000, Start date: 07/13/17 9:34:00 BLACK PICKLER, Stop date: 07/13/17 10:34:00 BLACK PICKLER Inactive 07/13/2017 [facility] Lactated Ringers Injection IV (ANES) 1000 mL Route: IV, Total Volume: 1,000, Start date: 07/13/17 8:44:00 BLACK PICKLER, Stop date: 07/13/17 9:44:00 BLACK PICKLER Inactive 07/13/2017 [facility] Insulin (Regular) additive 100 unit [0.1 unit/kg/hr] + NS 99 mL 99 mL, Rate: 11.26 ml/hr, Infuse over: 8.9 hr, Route: IV, Dosing Weight 112.6 kg, Total Volume: 100 mL, Start date: 07/13/17 6:00:00 BLACK PICKLER, Duration: 30 day, Stop date: 08/12/17 5:59:00 CDT, 2.49, [id number]: (Same as: Humulin R and NovoLIN R) WASTE: F/P - Black; E - Municipal Trash Bin (Do not shake) Inactive 07/13/2017 [facility] Phenylephrine 50 mg, 5 mL, Rate: Titrate, Start Dose: 0.5 microgram/kg/min, Titration: 0.5 microgram/kg/min every 2 - 5 minutes, Goal(s): MAP >=65 mmHg, Max Dose: 5 microgram/kg/min, Route: IV, Dosing Weight 112.6 kg, Total Volume: 250, Start date: 07/13/17 6:00:0...Notes: (Same as: Giorgi- Synephrine) Inactive 07/13/2017 [facility] Lopressor 12.5 mg, 0.5 tab, Route: PO, Drug form: TAB, ONCE, Dosing Weight 112.6, kg, Start date: 07/13/17 6:00:00 BLACK PICKLER, Stop date: 07/13/17 6:00:00 CSTNotes: (Same as: Lopressor) Inactive 07/13/2017 [facility] Epinephrine 4 mg, 4 mL, Rate: Titrate, Start Dose: 5 microgram/min, Titration: 0.5 microgram/min every 2-5 min, Goal(s): MAP >=65 mmHg, Max Dose: 35 mcg/min, Route: IV, Dosing Weight 112.6 kg, Total Volume: 250, Start date: 07/13/17 6:00:00 BLACK PICKLER, Duration: 30 day...Notes: (Same as: Adrenalin) [employer]med - Injectable drug used as inhalation treatment. MEDICATION WASTE Product Size: 1 mg Product Wasted: ___ mg Inactive 07/13/2017 [facility] Lipitor 10 mg, 1 tab, Route: PO, Drug form: TAB, Bedtime, Dosing Weight 112.6, kg, Start date: 07/12/17 21:00:00 BLACK PICKLER, Duration: 30 day, Stop date: 08/10/17 21:00:00 CDTNotes: (Same As: Lipitor) No Longer Active 07/13/2017 [facility] Flexeril 10 mg, 1 tab, Route: PO, Drug form: TAB, TID, Dosing Weight 112.6, kg, PRN Spasm, Start date: 07/12/17 17:31:00 BLACK PICKLER, Duration: 30 day, Stop date: 08/11/17 17:30:00 CDTNotes: (Same As: Flexeril) No Longer Active 07/12/2017 [facility] Aspirin 81 MG Enteric Coated Tablet 81 mg, 1 tab, Route: PO, Drug form: CHEWTAB, Daily, Dosing Weight 112.6, kg, Start date: 07/12/17 12:00:00 BLACK PICKLER, Stop date: 08/11/17 9:00:00 CDTNotes: Take with food. No Longer Active 07/12/2017 [facility] Vancomycin 1,750 mg, Route: IVPB, ONCALL, Dosing Weight 112.6, kg, Start date: 07/12/17 12:00:00 BLACK PICKLER, Duration: 1 doses or times, ABX Indication: Surgical ProphylaxisNotes: TIME CRITICAL MEDICATION (Same As: Vanco mohsen) Infusion rate 2001 mg: infuse over 2.5 hours For adult patients only: Round to nearest 250 mg per Medical Staff approval MEDICATION WASTE Product Size: 1000 mg Product Wasted: ___ mg No Longer Active 07/12/2017 [facility] Maxipime 1 gm, Route: IVP, Drug form: INJ, ONCALL, Dosing Weight 112.6, kg, (CrCl >/=50 ml/min), Priority: Routine, Start date: 07/12/17 12:00:00 BLACK PICKLER, Duration: 1 doses or times, ABX Indication: Surgical ProphylaxisNotes: (Same As: Maxipime) MEDICATION WASTE Product Size: 1000 mg Product Wasted: ___ mg No Longer Active 07/12/2017 [facility] Sodium Chloride 0.9% (titrate) 250 mL 250 mL, Rate: To prime line and flush remaining blood products., Dosing Weight 112.6, kg, Route: IV, Total Volume: 250, Priority: Routine, Start Date: 07/12/17 11:23:00 BLACK PICKLER, Duration: 1 doses or times, Stop date: 07/13/17 11:22:00 BLACK PICKLER, Replace Every:... No Longer Active 07/12/2017 [facility] Heparin - one time bolus for ACS 5,000 unit, Route: SUB- Q, Q12H, Dosing Weight 112.6, kg, Start date: 07/12/17 9:00:00 BLACK PICKLER, Duration: 30 day, Stop date: 08/10/17 21:00:00 CDT No Longer Active 07/12/2017 [facility] Acetaminophen 325 MG / Hydrocodone Bitartrate 5 MG Oral Tablet [Hatteras 5/325] 1 tab, Route: PO, Drug Form: TAB, Dosing Weight 112.6, kg, Q4H, PRN Pain Score 1-3, Start date: 07/11/17 23:36:00 BLACK PICKLER, Duration: 30 day, Stop date: 08/10/17 23:35:00 CDTNotes: (Same as: Hatteras 325/5) Do not exceed 4gm/day of acetaminophen. No Longer Active 07/12/2017 [facility] Cyclobenzaprine hydrochloride 5 MG Oral Tablet [Flexeril] 5 mg=1 tab, PO, TID, # 21 tab, 0 Refill(s) No Longer Active 07/12/2017 [facility] Acetaminophen 325 MG / Hydrocodone Bitartrate 5 MG Oral Tablet [Hatteras 5/325] 1-2 tab, PO, Q4-6H, PRN Pain, # 30 tab, 0 Refill(s) No Longer Active 07/12/2017 [facility] Aspirin 81 mg, PO, Daily, 0 Refill(s) No Longer Active 07/12/2017 [facility] pantoprazole 40 MG Enteric Coated Tablet [Protonix] 40 mg=1 tab, PO, Daily, # 30 tab, 0 Refill(s) No Longer Active 07/12/2017 [facility] Amlodipine 10 MG / Benazepril hydrochloride 40 MG Oral Capsule [Lotrel 10/40] 1 cap, PO, Daily, # 30 cap, 0 Refill(s) No Longer Active 07/12/2017 [facility] *RN pls update HWA in adhoc* *RN pls update HWA in adhoc*, Reminder, Drug form: MISC, Route: MISC, Q30Min, 07/11/17 22:00:00 BLACK PICKLER, Stop date: 07/12/17 2:00:00 BLACK PICKLER Inactive 07/12/2017 [facility] heparin additive 25,000 unit [12 unit/kg/hr] + Premix Diluent Dextrose 5% 500 mL 500 mL, Rate: 23.97 ml/hr, Infuse over: 20.9 hr, Route: IV, Dosing Weight 99.88 kg, Total Volume: 500 mL, Start date: 07/11/17 21:50:00 BLACK PICKLER, Duration: 30 day, Stop date: 08/10/17 21:49:00 CDT, 2.35, m2 No Longer Active 07/12/2017 [facility] Heparin 30 unit/kg Bolus (Heparin Dosing Weight) Route: IVP, PRN, 3,000 unit, 3 mL, Drug form: INJ, PRN, Heparin Protocol, Start date: 07/11/17 21:50:00 BLACK PICKLER Stop date: 08/10/17 22:49:00 CDT, 30 day No Longer Active 07/12/2017 [facility] Heparin 60 unit/kg Bolus (Heparin Dosing Weight) Route: IVP, PRN, 6,000 unit, 6 mL, Drug form: INJ, PRN, Heparin Protocol, Start date: 07/11/17 21:50:00 BLACK PICKLER Stop date: 08/10/17 22:49:00 CDT, 30 day No Longer Active 07/12/2017 [facility] Heparin - one time bolus for ACS 4,000 unit, Route: IVP, Drug form: INJ, ONCE, Dosing Weight 113.636, kg, Priority: STAT, Start date: 07/11/17 21:49:00 BLACK PICKLER, Stop date: 07/11/17 21:49:00 BLACK PICKLER Inactive 07/12/2017 [facility] Allergies, Adverse Reactions, Alerts Substance Category Reaction Severity Reaction type Status Date Reported Comments Source sulfa drugs Assertion Drug allergy Active [facility] Immunizations Immunization Date Given Site Status [...] Latrell Sidhu MD 05/14/18 00:25 FINAL REPORT [facility] Chest 2 views DX Chest 2 views DX EXAM: Chest 2 views DX DATE: 05/13/2018 8:10 PM BLACK PICKLER INDICATION: - Chest pain COMPARISON: 08/26/2017. IMPRESSION: Stable prominent cardiac silhouette and mediastinum. No definite failure. The lungs are emphysematous. No focal consolidation, significant pleural effusion or pneumothorax. SL: [id number] 05/13/2018 - - Read by: Zach Alamo MD Dictated Date/time: 05/13/18 21:26 Electronically Signed by: Zach Alamo MD 05/13/18 21:26 FINAL REPORT [facility] Abdomen/Pelvis w/wo IV contrast CT Abdomen/Pelvis [...] Halina Friedman MD 04/14/18 14:02 FINAL REPORT [facility] Renal Stone CT Renal Stone CT Clinical [...] Kymberly Colbert MD 03/21/18 22:06 FINAL REPORT [facility] Chest Pulmonary Embolism CTA Chest Pulmonary Embolism [...] Kymberly Colbert MD 03/21/18 21:57 FINAL REPORT [facility] CHEM PANEL Magnesium Lvl 1.9 mg/dL 1.8 - 2.4 09/04/2017 [facility] CHEM PANEL Phosphorus 3.5 mg/dL 2.5 - 4.5 09/04/2017 [facility] ELECTROLYTES AGAP 11.0 meq/L 10.0 - 20.0 09/04/2017 [facility] ELECTROLYTES Calcium Lvl 8.4 mg/dL 8.5 - 10.5 09/04/2017 [facility] ELECTROLYTES CO2 24 meq/L 24 - 32 09/04/2017 [facility] ELECTROLYTES Chloride Lvl 109 meq/L 95 - 109 09/04/2017 [facility] ELECTROLYTES Potassium Lvl 4.0 meq/L 3.5 - 5.1 09/04/2017 [facility] ELECTROLYTES eGFR 62 mL/min/1.73m2 09/04/2017 Result [...] should be multiplied by the estimated BMI. [facility] ELECTROLYTES Sodium Lvl 140 meq/L 135 - 145 09/04/2017 [facility] ELECTROLYTES Creatinine Lvl 1.18 mg/dL 0.50 - 1.40 09/04/2017 [facility] ELECTROLYTES BUN 14 mg/dL 7 - 22 09/04/2017 [facility] ELECTROLYTES Glucose Lvl 85 mg/dL 70 - 99 09/04/[address] [facility] RBC 3.25 M/CMM 4.70 - 6.10 09/04/[address] [facility] WBC 8.1 K/CMM 3.7 - 10.4 09/04/[address] [facility] Hct 29.7 % 42.0 - 54.0 09/04/[address] [facility] Hgb 9.9 g/dL 14.0 - 18.0 09/04/[address] [facility] MPV 8.8 fL 7.4 - 10.4 09/04/[address] [facility] RDW 16.7 % 11.5 - 14.5 09/04/2017 [facility] MCH 30.4 pg 27.0 - 31.0 09/04/2017 [facility] Platelet 225 K/CMM 133 - 450 09/04/[address] [facility] MCHC 33.2 g/dL 32.0 - 36.0 09/04/[address] [facility] MCV 91.5 fL 80.0 - 94.0 09/04/[address] [facility] Monocytes # 0.6 K/CMM 0.0 - 0.8 09/04/[address] [facility] Eosinophils # 0.1 K/CMM 0.0 - 0.5 09/04/[address] [facility] Basophils # 0.1 K/CMM 0.0 - 0.2 09/04/[address] [facility] Lymphocytes 12.1 % 20.0 - 40.0 09/04/[address] [facility] Lymphocytes # 1.0 K/CMM 1.0 - 5.5 09/04/2017 [facility] HEMATOLOGY Eosinophils 1.8 % 0.0 - 4.0 09/04/2017 [facility] HEMATOLOGY Segs-Bands # 6.3 K/CMM 1.5 - 8.1 09/04/2017 [facility] HEMATOLOGY Monocytes 7.9 % 2.0 - 12.0 09/04/2017 [facility] HEMATOLOGY Basophils 0.7 % 0.0 - 1.0 09/04/2017 [facility] HEMATOLOGY Segs 77.5 % 45.0 - 75.0 09/04/2017 [facility] IMMUNOLOGY Prealbumin 17.6 mg/dL 18.0 - 45.0 09/04/2017 [facility] CHEM PANEL eGFR 56 mL/min/1.73m2 09/03/2017 [...] should be multiplied by the estimated BMI. [facility] CHEM PANEL AGAP 10.4 meq/L 10.0 - 20.0 09/03/2017 [facility] CHEM PANEL Calcium Lvl 8.6 mg/dL 8.5 - 10.5 09/03/2017 [facility] CHEM PANEL Potassium Lvl 4.4 meq/L 3.5 - 5.1 09/03/2017 [facility] CHEM PANEL Chloride Lvl 109 meq/L 95 - 109 09/03/2017 [facility] CHEM PANEL CO2 26 meq/L 24 - 32 09/03/2017 [facility] CHEM PANEL Glucose Lvl 83 mg/dL 70 - 99 09/03/2017 [facility] CHEM PANEL Creatinine Lvl 1.28 mg/dL 0.50 - 1.40 09/03/2017 [facility] CHEM PANEL BUN 17 mg/dL 7 - 09/03/2017 [facility] CHEM PANEL Sodium Lvl 141 meq/L 135 - 145 09/03/2017 [facility] CHEM PANEL eGFR 45 mL/min/1.73m2 09/03/2017 [...] should be multiplied by the estimated BMI. [facility] CHEM PANEL Glucose Lvl 132 mg/dL 70 - 99 09/03/2017 [facility] CHEM PANEL BUN 18 mg/dL 7 - 22 09/03/2017 [facility] CHEM PANEL Creatinine Lvl 1.53 mg/dL 0.50 - 1.40 09/03/2017 [facility] CHEM PANEL Potassium Lvl 6.1 meq/L 3.5 - 5.1 09/03/2017 [facility] CHEM PANEL Sodium Lvl 136 meq/L 135 - 145 09/03/2017 [facility] CHEM PANEL Chloride Lvl 106 meq/L 95 - 109 09/03/2017 [facility] CHEM PANEL CO2 24 meq/L 24 - 32 09/03/2017 [facility] CHEM PANEL AGAP 12.1 meq/L 10.0 - 20.0 09/03/2017 [facility] CHEM PANEL Calcium Lvl 8.4 mg/dL 8.5 - 10.5 09/03/2017 [facility] CHEM PANEL Procalcitonin Lvl 0.10 ng/mL 0.00 - 0.10 09/03/2017 [facility] HEMATOLOGY Hgb 9.7 g/dL 14.0 - 18.0 09/03/2017 [facility] HEMATOLOGY RBC 3.23 M/CMM 4.70 - 6.10 09/03/2017 [facility] HEMATOLOGY WBC 5.1 K/CMM 3.7 - 10.4 09/03/2017 [facility] HEMATOLOGY Platelet 225 K/CMM 133 - 450 09/03/2017 [facility] HEMATOLOGY MPV 8.7 fL 7.4 - 10.4 09/03/2017 [facility] HEMATOLOGY MCHC 32.9 g/dL 32.0 - 36.0 09/03/2017 [facility] HEMATOLOGY Hct 29.5 % 42.0 - 54.0 09/03/2017 [facility] HEMATOLOGY RDW 16.9 % 11.5 - 14.5 09/03/2017 [facility] HEMATOLOGY MCH 30.0 pg 27.0 - 31.0 09/03/2017 [facility] HEMATOLOGY MCV 91.3 fL 80.0 - 94.0 09/03/2017 [facility] URINE AND STOOL UA Color Genesis 09/02/2017 [facility] URINE AND STOOL UA WBC 4 /HPF 0 - 5 09/02/2017 [facility] URINE AND STOOL UA RBC 3 /HPF 0 - 2 09/02/2017 [facility] URINE AND STOOL UA Hyal Cast 36 /LPF 0 - 2 09/02/2017 [facility] URINE AND STOOL UA Mucus Many /LPF None Seen /LPF 09/02/2017 [facility] URINE AND STOOL UA Bili Negative *NA* (09/02/17 2:04 PM) Negative 09/02/2017 [facility] URINE AND STOOL UA Ketones Trace mg/dL Negative mg/dL 09/02/2017 [facility] URINE AND STOOL UA Spec Grav 1.026 <=1.030 09/02/2017 [facility] URINE AND STOOL UA Turbidity Slight *ABN* (09/02/17 2:04 PM) Clear 09/02/2017 [facility] URINE AND STOOL UA Blood Negative (09/02/17 2:04 PM) Negative 09/02/2017 [facility] URINE AND STOOL UA Nitrite Negative (09/02/17 2:04 PM) Negative 09/02/2017 [facility] URINE AND STOOL UA Urobilinogen 2.0 mg/dL 0.1 - 1.0 09/02/2017 [facility] URINE AND STOOL UA Leuk Est Negative (09/02/17 2:04 PM) Negative 09/02/2017 [facility] URINE AND STOOL UA Sq Epi Occasional /LPF Few /LPF 09/02/2017 [facility] URINE AND STOOL UA Glucose Negative mg/dL Negative mg/dL 09/02/2017 [facility] URINE AND STOOL UA Protein 30 mg/dL Negative mg/dL 09/02/2017 [facility] URINE AND STOOL UA pH 5.0 5.0 - 8.0 09/02/2017 [facility] CHEM PANEL Globulin 5.3 g/dL 2.7 - 4.2 09/02/2017 [facility] CHEM PANEL A/G Ratio 0.6 0.7 - 1.6 09/02/2017 [facility] CHEM PANEL B/C Ratio 11 6 - 25 09/02/2017 [facility] CHEM PANEL Bili Total 0.6 mg/dL 0.2 - 1.3 09/02/2017 [facility] CHEM PANEL Alk Phos 163 unit/L 39 - 136 09/02/2017 [facility] CHEM PANEL Albumin Lvl 3.3 g/dL 3.5 - 5.0 09/02/2017 [facility] CHEM PANEL Total Protein 8.6 g/dL 6.4 - 8.4 09/02/2017 [facility] CHEM PANEL ALT 13 unit/L 0 - 65 09/02/2017 [facility] CHEM PANEL AST 19 unit/L 0 - 37 09/02/2017 [facility] HEMATOLOGY Lymphocytes 7.4 % 20.0 - 40.0 09/02/2017 [facility] HEMATOLOGY Segs 81.7 % 45.0 - 75.0 09/02/2017 [facility] HEMATOLOGY Lymphocytes # 0.7 K/CMM 1.0 - 5.5 09/02/2017 [facility] HEMATOLOGY Monocytes 6.8 % 2.0 - 12.0 09/02/2017 [facility] HEMATOLOGY Monocytes # 0.7 K/CMM 0.0 - 0.8 09/02/2017 [facility] HEMATOLOGY Basophils # 0.3 K/CMM 0.0 - 0.2 09/02/2017 [facility] HEMATOLOGY Eosinophils # 0.1 K/CMM 0.0 - 0.5 09/02/2017 [facility] HEMATOLOGY Eosinophils 1.4 % 0.0 - 4.0 09/02/2017 [facility] HEMATOLOGY Segs-Bands # 7.8 K/CMM 1.5 - 8.1 09/02/2017 [facility] HEMATOLOGY Basophils 2.7 % 0.0 - 1.0 09/02/2017 [facility] HEMATOLOGY Platelet 316 K/CMM 133 - 450 09/02/2017 [facility] HEMATOLOGY MPV 8.6 fL 7.4 - 10.4 09/02/2017 [facility] HEMATOLOGY RDW 16.9 % 11.5 - 14.5 09/02/2017 [facility] HEMATOLOGY Hct 36.8 % 42.0 - 54.0 09/02/2017 [facility] HEMATOLOGY MCH 30.1 pg 27.0 - 31.0 09/02/2017 [facility] MCHC 33.1 g/dL 32.0 - 36.0 09/02/[address] [facility] Hgb 12.2 g/dL 14.0 - 18.0 09/02/[address] [facility] MCV 91.0 fL 80.0 - 94.0 09/02/[address] [facility] WBC 9.6 K/CMM 3.7 - 10.4 09/02/2017 [facility] RBC 4.04 M/CMM 4.70 - 6.10 09/02/2017 [facility] Ext Lower Arterial Doppler bilat US [...] extremities, no gross evidence for stenosis. SL: [id number] 09/02/2017 - - Read by: Uriel Hauser MD Dictated Date/time: 09/02/17 16:05 Electronically Signed by: Uriel Hauser MD 09/02/17 16:07 FINAL REPORT [facility] Chest/Abdominal Aorta with Runoff CTA Chest/Abdominal [...] imaging was performed. Total CT radiation dose: UPL=810 mGy-cm COMPARISON: Arterial Doppler ultrasound from earlier [...] Ankur Lara MD 09/02/17 16:53 FINAL REPORT [facility] CHEM PANEL eGFR 49 mL/min/1.73m2 08/26/2017 [...] should be multiplied by the estimated BMI. [facility] CHEM PANEL Calcium Lvl 9.2 mg/dL 8.5 - 10.5 08/26/2017 [facility] CHEM PANEL CO2 23 meq/L 24 - 32 08/26/2017 [facility] CHEM PANEL Chloride Lvl 107 meq/L 95 - 109 08/26/2017 [facility] CHEM PANEL Potassium Lvl 5.1 meq/L 3.5 - 5.1 08/26/2017 [facility] CHEM PANEL Sodium Lvl 138 meq/L 135 - 145 08/26/2017 [facility] CHEM PANEL Creatinine Lvl 1.44 mg/dL 0.50 - 1.40 08/26/2017 [facility] CHEM PANEL BUN 15 mg/dL 7 - 22 08/26/2017 [facility] CHEM PANEL Glucose Lvl 85 mg/dL 70 - 99 08/26/2017 [facility] CHEM PANEL AGAP 13.1 meq/L 10.0 - 20.0 08/26/2017 [facility] HEMATOLOGY Hgb 11.9 g/dL 14.0 - 18.0 08/26/2017 [facility] HEMATOLOGY Hct 36.2 % 42.0 - 54.0 08/26/[address] [facility] [address] [facility] MCV 91.4 fL 80.0 - 94.0 08/26/2017 [facility] MCH 29.9 pg 27.0 - 31.0 08/26/2017 [facility] MCHC 32.7 g/dL 32.0 - 36.0 08/26/2017 [facility] RDW 16.7 % 11.5 - 14.5 08/26/2017 [facility] Platelet 345 K/CMM 133 - 450 08/26/2017 [facility] MPV 8.7 fL 7.4 - 10.4 08/26/[address] [facility] WBC 8.1 K/CMM 3.7 - 10.4 08/26/2017 [facility] RBC 3.96 M/CMM 4.70 - 6.10 08/26/2017 [facility] Lymphocytes 12.3 % 20.0 - 40.0 08/26/2017 [facility] Segs 77.1 % 45.0 - 75.0 08/26/2017 [facility] Monocytes # 0.7 K/CMM 0.0 - 0.8 08/26/2017 [facility] Eosinophils # 0.1 K/CMM 0.0 - 0.5 08/26/2017 [facility] Lymphocytes # 1.0 K/CMM 1.0 - 5.5 08/26/[address] [facility] Segs-Bands # 6.2 K/CMM 1.5 - 8.1 08/26/[address] [facility] Basophils 0.9 % 0.0 - 1.0 08/26/2017 [facility] Basophils # 0.1 K/CMM 0.0 - 0.2 08/26/[address] [facility] Eosinophils 1.7 % 0.0 - 4.0 08/26/2017 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 2. Chronic obstructive pulmonary disease. SL: [id number] 08/26/2017 - - Read by: John Roberts MD Dictated Date/time: 08/26/17 10:40 Electronically Signed by: John Roberts MD 08/26/17 10:41 FINAL REPORT [facility] lumbar 2 or 3 views DX [...] vertebral augmentation. 3. Moderate degenerative changes. SL: [id number] 08/08/2017 - - Read by: Ana Villareal MD Dictated Date/time: 08/08/17 14:31 Electronically Signed by: Ana Villareal MD 08/08/17 14:54 FINAL REPORT [facility] CHEM PANEL A/G Ratio 0.6 0.7 - 1.6 08/08/2017 [facility] CHEM PANEL eGFR 60 mL/min/1.73m2 08/08/2017 [...] should be multiplied by the estimated BMI. [facility] CHEM PANEL Albumin Lvl 2.8 g/dL 3.5 - 5.0 08/08/2017 [facility] CHEM PANEL Total Protein 7.6 g/dL 6.4 - 8.4 08/08/2017 [facility] CHEM PANEL Globulin 4.8 g/dL 2.7 - 4.2 08/08/2017 [facility] CHEM PANEL B/C Ratio 21 6 - 25 08/08/2017 [facility] CHEM PANEL Bili Total 0.8 mg/dL 0.2 - 1.3 08/08/2017 [facility] CHEM PANEL AGAP 10.2 meq/L 10.0 - 20.0 08/08/2017 [facility] CHEM PANEL ALT 16 unit/L 0 - 65 08/08/2017 [facility] CHEM PANEL Alk Phos 131 unit/L 39 - 136 08/08/2017 [facility] CHEM PANEL AST 36 unit/L 0 - 37 08/08/2017 [facility] CHEM PANEL BUN 26 mg/dL 7 - 22 08/08/2017 [facility] CHEM PANEL Glucose Lvl 85 mg/dL 70 - 99 08/08/2017 [facility] CHEM PANEL Calcium Lvl 9.0 mg/dL 8.5 - 10.5 08/08/2017 [facility] CHEM PANEL CO2 28 meq/L 24 - 32 08/08/2017 [facility] CHEM PANEL Creatinine Lvl 1.21 mg/dL 0.50 - 1.40 08/08/2017 [facility] CHEM PANEL Chloride Lvl 101 meq/L 95 - 109 08/08/2017 [facility] CHEM PANEL Potassium Lvl 4.2 meq/L 3.5 - 5.1 08/08/2017 [facility] CHEM PANEL Sodium Lvl 135 meq/L 135 - 145 08/08/2017 [facility] CHEM PANEL Magnesium Lvl 1.8 mg/dL 1.8 - 2.4 08/06/2017 [facility] CHEM PANEL eGFR 56 mL/min/1.73m2 08/06/2017 Result [...] should be multiplied by the estimated BMI. [facility] CHEM PANEL AGAP 11.6 meq/L 10.0 - 20.0 08/06/2017 [facility] CHEM PANEL Glucose Lvl 83 mg/dL 70 - 99 08/06/2017 [facility] CHEM PANEL Creatinine Lvl 1.27 mg/dL 0.50 - 1.40 08/06/2017 [facility] CHEM PANEL BUN 29 mg/dL 7 - 22 08/06/2017 [facility] CHEM PANEL Potassium Lvl 3.6 meq/L 3.5 - 5.1 08/06/2017 [facility] CHEM PANEL Calcium Lvl 8.2 mg/dL 8.5 - 10.5 08/06/2017 [facility] CHEM PANEL CO2 28 meq/L 24 - 32 08/06/2017 [facility] CHEM PANEL Sodium Lvl 138 meq/L 135 - 145 08/06/2017 [facility] CHEM PANEL Chloride Lvl 102 meq/L 95 - 109 08/06/2017 [facility] Chest 2 views DX Chest 2 [...] atelectasis. 2. Chronic obstructive pulmonary disease. SL: [id number] 08/05/2017 - - Read by: John Roberts MD Dictated Date/time: 08/05/17 14:41 Electronically Signed by: John Roberts MD 08/05/17 14:42 FINAL REPORT [facility] CHEM PANEL Magnesium Lvl 2.3 mg/dL 1.8 - 2.4 08/05/2017 [facility] CHEM PANEL Glucose Lvl 79 mg/dL 70 - 99 08/05/2017 [facility] CHEM PANEL Calcium Lvl 7.9 mg/dL 8.5 - 10.5 08/05/2017 [facility] CHEM PANEL AGAP 13.8 meq/L 10.0 - 20.0 08/05/2017 [facility] CHEM PANEL CO2 28 meq/L 24 - 32 08/05/2017 [facility] CHEM PANEL Potassium Lvl 3.8 meq/L 3.5 - 5.1 08/05/2017 [facility] CHEM PANEL Chloride Lvl 103 meq/L 95 - 109 08/05/2017 [facility] CHEM PANEL Creatinine Lvl 1.26 mg/dL 0.50 - 1.40 08/05/2017 [facility] CHEM PANEL Sodium Lvl 141 meq/L 135 - 145 08/05/2017 [facility] CHEM PANEL BUN 27 mg/dL 7 - 22 08/05/2017 [facility] CHEM PANEL eGFR 57 mL/min/1.73m2 08/05/2017 [...] should be multiplied by the estimated BMI. [facility] CHEM PANEL Magnesium Lvl 1.6 mg/dL 1.8 - 2.4 08/04/2017 [facility] HEMATOLOGY MPV 9.3 fL 7.4 - 10.4 08/02/2017 [facility] Hgb 9.7 g/dL 14.0 - 18.0 08/02/2017 [facility] Hct 29.5 % 42.0 - 54.0 08/02/2017 [facility] RBC 3.16 M/CMM 4.70 - 6.10 08/02/2017 [facility] WBC 9.0 K/CMM 3.7 - 10.4 08/02/2017 [facility] RDW 17.7 % 11.5 - 14.5 08/02/2017 [facility] Platelet 221 K/CMM 133 - 450 08/02/[address] [facility] MCV 93.1 fL 80.0 - 94.0 08/02/2017 [facility] HEMATOLOGY MCHC 33.0 g/dL 32.0 - 36.0 08/02/2017 [facility] HEMATOLOGY MCH 30.8 pg 27.0 - 31.0 08/02/2017 [facility] HEMATOLOGY Eosinophils 1.0 % 0.0 - 4.0 08/02/2017 [facility] HEMATOLOGY Basophils 0.1 % 0.0 - 1.0 08/02/2017 [facility] HEMATOLOGY Segs-Bands # 6.7 K/CMM 1.5 - 8.1 08/02/2017 [facility] HEMATOLOGY Monocytes # 1.1 K/CMM 0.0 - 0.8 08/02/2017 [facility] HEMATOLOGY Lymphocytes # 1.1 K/CMM 1.0 - 5.5 08/02/2017 [facility] HEMATOLOGY Eosinophils # 0.1 K/CMM 0.0 - 0.5 08/02/2017 [facility] Monocytes 11.9 % 2.0 - 12.0 08/02/2017 [facility] HEMATOLOGY Segs 74.3 % 45.0 - 75.0 08/02/2017 [facility] Lymphocytes 12.7 % 20.0 - 40.0 08/02/2017 [facility] ANEMIA STUDY % [place] 22 % 12 - 57 07/30/2017 [facility] ANEMIA STUDY UIBC 193 ug/dl 110 - 370 07/30/2017 [facility] ANEMIA STUDY TIBC 249 ug/dl 228 - 428 07/30/2017 [facility] ANEMIA STUDY Iron 56 ug/dl 45 - 160 07/30/2017 [facility] ANEMIA STUDY Vitamin B12 Lvl 864 pg/mL 254 - 1320 07/30/2017 [facility] CHEM PANEL Total Protein 5.9 g/dL 6.4 - 8.4 07/30/2017 [facility] CHEM PANEL Albumin Lvl 2.3 g/dL 3.5 - 5.0 07/30/2017 [facility] HEMATOLOGY Segs 82.0 % 45.0 - 75.0 07/30/2017 [facility] HEMATOLOGY Lymphocytes 8.5 % 20.0 - 40.0 07/30/2017 [facility] HEMATOLOGY Monocytes # 0.6 K/CMM 0.0 - 0.8 07/30/2017 [facility] HEMATOLOGY Segs-Bands # 6.5 K/CMM 1.5 - 8.1 07/30/2017 [facility] HEMATOLOGY Eosinophils 1.0 % 0.0 - 4.0 07/30/[address] [facility] Monocytes 8.1 % 2.0 - 12.0 07/30/2017 [facility] Lymphocytes # 0.7 K/CMM 1.0 - 5.5 07/30/[address] [facility] Basophils 0.4 % 0.0 - 1.0 07/30/[address] [facility] Eosinophils # 0.1 K/CMM 0.0 - 0.5 07/30/[address] [facility] RBC 2.81 M/CMM 4.70 - 6.10 07/30/[address] [facility] Hct 26.0 % 42.0 - 54.0 07/30/[address] [facility] Hgb 8.6 g/dL 14.0 - 18.0 07/30/[address] [facility] MCH 30.7 pg 27.0 - 31.0 07/30/[address] [facility] MCV 92.3 fL 80.0 - 94.0 07/30/[address] [facility] MPV 9.8 fL 7.4 - 10.4 07/30/[address] [facility] Platelet 177 K/CMM 133 - 450 07/30/[address] [facility] RDW 16.3 % 11.5 - 14.5 07/30/[address] [facility] MCHC 33.2 g/dL 32.0 - 36.0 07/30/[address] [facility] WBC 7.9 K/CMM 3.7 - 10.4 07/30/2017 [facility] IMMUNOLOGY Prealbumin 11.9 mg/dL 18.0 - 45.0 07/30/2017 [facility] SPECIAL CHEMISTRY Hgb A1C 4.8 % <=5.6 % 07/30/2017 [facility] CHEM PANEL Phosphorus 2.7 mg/dL 2.5 - 4.5 07/29/2017 [facility] CHEM PANEL eGFR 76 mL/min/1.73m2 07/29/2017 [...] should be multiplied by the estimated BMI. [facility] CHEM PANEL Calcium Lvl 7.0 mg/dL 8.5 - 10.5 07/29/2017 Result Comment: Critical Result(s) called to ghanshyam gavin at 07/29/2017 06:03 by hp. Read back OK [facility] CHEM PANEL AGAP 12.0 meq/L 10.0 - 20.0 07/29/2017 [facility] CHEM PANEL CO2 31 meq/L 24 - 32 07/29/2017 [facility] CHEM PANEL Chloride Lvl 103 meq/L 95 - 109 07/29/2017 [facility] CHEM PANEL Sodium Lvl 143 meq/L 135 - 145 07/29/2017 [facility] CHEM PANEL Potassium Lvl 3.0 meq/L 3.5 - 5.1 07/29/2017 Result Comment: Critical Result(s) called to ghanshyam gavin at 07/29/2017 06:03 by hp. Read back OK. [facility] CHEM PANEL BUN 22 mg/dL 7 - 22 07/29/2017 [facility] CHEM PANEL Creatinine Lvl 0.99 mg/dL 0.50 - 1.40 07/29/2017 [facility] CHEM PANEL Glucose Lvl 80 mg/dL 70 - 99 07/29/2017 [facility] CHEM PANEL Magnesium Lvl 1.6 mg/dL 1.8 - 2.4 07/29/2017 [facility] Lymphocytes 8.9 % 20.0 - 40.0 07/29/2017 [facility] HEMATOLOGY Segs 83.6 % 45.0 - 75.0 07/29/2017 [facility] HEMATOLOGY Lymphocytes # 0.6 K/CMM 1.0 - 5.5 07/29/2017 [facility] HEMATOLOGY Segs-Bands # 5.9 K/CMM 1.5 - 8.1 07/29/2017 [facility] HEMATOLOGY Basophils 0.3 % 0.0 - 1.0 07/29/2017 [facility] HEMATOLOGY Eosinophils 0.8 % 0.0 - 4.0 07/29/[address] [facility] Monocytes 6.4 % 2.0 - 12.0 07/29/[address] [facility] Eosinophils # 0.1 K/CMM 0.0 - 0.5 07/29/2017 [facility] HEMATOLOGY Monocytes # 0.4 K/CMM 0.0 - 0.8 07/29/[address] [facility] MPV 9.5 fL 7.4 - 10.4 07/29/[address] [facility] MCH 30.7 pg 27.0 - 31.0 07/29/[address] [facility] MCHC 33.3 g/dL 32.0 - 36.0 07/29/[address] [facility] RDW 16.3 % 11.5 - 14.5 07/29/[address] [facility] Platelet 165 K/CMM 133 - 450 07/29/[address] [facility] WBC 7.0 K/CMM 3.7 - 10.4 07/29/[address] [facility] RBC 2.70 M/CMM 4.70 - 6.10 07/29/[address] [facility] MCV 92.0 fL 80.0 - 94.0 07/29/[address] [facility] Hct 24.8 % 42.0 - 54.0 07/29/[address] [facility] Hgb 8.3 g/dL 14.0 - 18.0 07/29/2017 [facility] Chest 1view DX Chest 1view DX Patient Name: TEDDY LESTER : 1945; Age: 72 years y/o Male MR: [id number] Study: Chest 1view DX 07/29/2017 3:00 AM CDT Ordering Physician: Clinical Indication: post op CABG - post op CABG; Comparison: 07/28/2017 Chest one view Sternotomy. Stable cardiomegaly and mild pulmonary vascular congestive changes. Mild atelectasis persists the left lower lobe. No significant pleural fluid. No pneumothorax. IMPRESSION: Stable chest. SL: [id number] 07/29/2017 - - Read by: Remigio Varela MD Dictated Date/time: 07/29/17 07:36 Electronically Signed by: Remigio Varela MD 07/29/17 07:37 FINAL REPORT [facility] Neck wo contrast MRA Neck wo contrast MRA Name: TEDDY LESTER : 1945 SEX: Male Ordering Physician: Rhys Horan BRAIN WO CONTRAST MRA, NECK WO CONTRAST MRA : . CLINICAL INDICATION: - FUrther evaluation of R SPINE SUPERVISOR stroke Comparison Examination: CT 07/22/2017 and duplex Doppler ultrasound 07/12/2017 NECK MRA WITHOUT CONTRAST COMMENT: MR angiography of the neck was performed utilizing 3-D kbvv-dz-attglp technique with maximum image projection. 3-D postprocessing [...] angiography of the head was performed utilizing qcwn-lv-sroiaq technique with maximum image projection. 3-D postprocessing [...] artery due to origin anatomic variation. The [place] demonstrates normal . Vascular anatomy. The anterior, middle, and posterior cerebral arteries are normal. CONCLUSION: MILD ATHEROSCLEROTIC PLAQUE CHANGES SUSPECTED AT THE MID LOWER BASILAR ARTERY WITH VERTEBROBASILAR TORTUOSITY IN AN OTHERWISE UNREMARKABLE INTRACRANIAL MR ANGIOGRAM. RIGHT POSTERIOR CEREBRAL ARTERY APPEARS INTACT. LEFT SPINE SUPERVISOR IS INTACT BUT NOT WELL SEEN DUE TO ORIGIN. SL: [id number] 07/28/2017 - - Read by: Diogo Ma MD Dictated Date/time: 07/29/17 00:33 Electronically Signed by: Diogo Ma MD 07/29/17 00:51 FINAL REPORT [facility] Brain wo contrast MRA Brain wo contrast MRA Name: TEDDY LESTER : 1945 SEX: Male Ordering Physician: Rhys Horan BRAIN WO CONTRAST MRA, NECK WO CONTRAST MRA : . 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 3-D postprocessing [...] angiography of the head was performed utilizing jsym-xz-gulngg technique with maximum image projection. 3-D postprocessing [...] artery due to origin anatomic variation. The [place] demonstrates normal . Vascular anatomy. The anterior, middle, and posterior cerebral arteries are normal. CONCLUSION: MILD ATHEROSCLEROTIC PLAQUE CHANGES SUSPECTED AT THE MID LOWER BASILAR ARTERY WITH VERTEBROBASILAR TORTUOSITY IN AN OTHERWISE UNREMARKABLE INTRACRANIAL MR ANGIOGRAM. RIGHT POSTERIOR CEREBRAL ARTERY APPEARS INTACT. LEFT SPINE SUPERVISOR IS INTACT BUT NOT WELL SEEN DUE TO ORIGIN. SL: [id number] 07/28/2017 - - Read by: Diogo Ma MD Dictated Date/time: 07/29/17 00:33 Electronically Signed by: Diogo Ma MD 07/29/17 00:51 FINAL REPORT [facility] ELECTROLYTES AGAP 12.2 meq/L 10.0 - 20.0 07/28/2017 [facility] ELECTROLYTES eGFR 79 mL/min/1.73m2 07/28/2017 Result [...] should be multiplied by the estimated BMI. [facility] ELECTROLYTES Calcium Lvl 7.4 mg/dL 8.5 - 10.5 07/28/2017 [facility] ELECTROLYTES CO2 31 meq/L 24 - 32 07/28/2017 [facility] ELECTROLYTES Chloride Lvl 106 meq/L 95 - 109 07/28/2017 [facility] ELECTROLYTES BUN 28 mg/dL 7 - 22 07/28/2017 [facility] ELECTROLYTES Glucose Lvl 87 mg/dL 70 - 99 07/28/2017 [facility] ELECTROLYTES Creatinine Lvl 0.97 mg/dL 0.50 - 1.40 07/28/2017 [facility] ELECTROLYTES Potassium Lvl 3.2 meq/L 3.5 - 5.1 07/28/2017 [facility] ELECTROLYTES Sodium Lvl 146 meq/L 135 - 145 07/28/2017 [facility] RBC 2.93 M/CMM 4.70 - 6.10 07/28/2017 [facility] WBC 7.7 K/CMM 3.7 - 10.4 07/28/2017 [facility] Hgb 9.1 g/dL 14.0 - 18.0 07/28/2017 [facility] MCH 31.2 pg 27.0 - 31.0 07/28/2017 [facility] Platelet 164 K/CMM 133 - 450 07/28/[address] [facility] RDW 16.5 % 11.5 - 14.5 07/28/[address] [facility] MCV 93.1 fL 80.0 - 94.0 07/28/[address] [facility] Hct 27.3 % 42.0 - 54.0 07/28/[address] [facility] MCHC 33.5 g/dL 32.0 - 36.0 07/28/[address] [facility] MPV 9.3 fL 7.4 - 10.4 07/28/[address] [facility] Segs-Bands # 6.3 K/CMM 1.5 - 8.1 07/28/[address] [facility] Basophils 0.6 % 0.0 - 1.0 07/28/2017 [facility] Monocytes # 0.5 K/CMM 0.0 - 0.8 07/28/2017 [facility] HEMATOLOGY Lymphocytes # 0.8 K/CMM 1.0 - 5.5 07/28/2017 [facility] HEMATOLOGY Eosinophils # 0.1 K/CMM 0.0 - 0.5 07/28/2017 [facility] HEMATOLOGY Eosinophils 0.7 % 0.0 - 4.0 07/28/2017 [facility] HEMATOLOGY Monocytes 6.8 % 2.0 - 12.0 07/28/2017 [facility] HEMATOLOGY Lymphocytes 10.2 % 20.0 - 40.0 07/28/2017 [facility] HEMATOLOGY Segs 81.7 % 45.0 - 75.0 07/28/2017 [facility] Chest 1view DX Chest 1view DX Patient Name: TEDDY LESTER : 1945; Age: 72 years y/o Male MR: [id number] Study: Chest 1view DX 07/28/2017 3:00 AM [...] Skyler Monique MD 07/28/17 07:58 FINAL REPORT [facility] ELECTROLYTES Potassium Lvl 3.3 meq/L 3.5 - 5.1 07/27/2017 [facility] CHEM PANEL Magnesium Lvl 2.1 mg/dL 1.8 - 2.4 07/27/2017 [facility] PARATHYROID PROFILE Ca Norm WB 1.04 mMol/L 1.05 - 1.25 07/27/2017 [facility] PARATHYROID PROFILE Ca Ion WB 0.97 mMol/L 1.05 - 1.25 07/27/2017 [facility] CHEM PANEL eGFR 61 mL/min/1.73m2 07/27/2017 [...] CO2 35 meq/L 24 - 32 07/27/2017 [facility] CHEM PANEL Chloride Lvl 103 meq/L 95 - 109 07/27/2017 [facility] CHEM PANEL Phosphorus 2.7 mg/dL 2.5 - 4.5 07/27/2017 [facility] CHEM PANEL Magnesium Lvl 1.8 mg/dL 1.8 - 2.4 07/27/2017 [facility] Platelet 155 K/CMM 133 - 450 07/27/[address] [facility] Hct 25.6 % 42.0 - 54.0 07/27/[address] [facility] MCHC 33.7 g/dL 32.0 - 36.0 07/27/[address] [facility] MPV 9.3 fL 7.4 - 10.4 07/27/[address] [facility] RDW 16.2 % 11.5 - 14.5 07/27/[address] [facility] MCH 30.7 pg 27.0 - 31.0 07/27/[address] [facility] MCV 91.1 fL 80.0 - 94.0 07/27/[address] [facility] Hgb 8.6 g/dL 14.0 - 18.0 07/27/2017 [facility] RBC 2.81 M/CMM 4.70 - 6.10 07/27/2017 [facility] WBC 7.9 K/CMM 3.7 - 10.4 07/27/2017 [facility] Monocytes # 0.6 K/CMM 0.0 - 0.8 07/27/2017 [facility] Basophils 0.1 % 0.0 - 1.0 07/27/2017 [facility] Lymphocytes 7.0 % 20.0 - 40.0 07/27/[address] [facility] Eosinophils 0.3 % 0.0 - 4.0 07/27/2017 [facility] Lymphocytes # 0.6 K/CMM 1.0 - 5.5 07/27/[address] [facility] Segs-Bands # 6.8 K/CMM 1.5 - 8.1 07/27/[address] [facility] Monocytes 7.5 % 2.0 - 12.0 07/27/2017 [facility] Segs 85.1 % 45.0 - 75.0 07/27/2017 [facility] Chest 1view DX Chest 1view DX [...] change from previous study is noted. SL: [id number] 07/27/2017 - - Read by: Yaniv Arreola MD Dictated Date/time: 07/27/17 07:30 Electronically Signed by: Yaniv Arreola MD 07/27/17 07:34 FINAL REPORT [facility] HEMATOLOGY PTT 61.8 s 22.9 - 35.8 07/26/2017 [facility] CHEM PANEL Bili Total 0.9 mg/dL 0.2 - 1.3 07/26/2017 [facility] CHEM PANEL A/G Ratio 0.6 0.7 - 1.6 07/26/2017 [facility] CHEM PANEL Globulin 3.2 g/dL 2.7 - 4.2 07/26/2017 [facility] CHEM PANEL AST 43 unit/L 0 - 37 07/26/2017 [facility] CHEM PANEL ALT 123 unit/L 0 - 65 07/26/2017 [facility] CHEM PANEL Alk Phos 91 unit/L 39 - 136 07/26/2017 [facility] CHEM PANEL B/C Ratio 36 6 - 25 07/26/2017 [facility] CHEM PANEL Albumin Lvl 2.0 g/dL 3.5 - 5.0 07/26/2017 [facility] CHEM PANEL Total Protein 5.2 g/dL 6.4 - 8.4 07/26/2017 [facility] CHEM PANEL Phosphorus 3.2 mg/dL 2.5 - 4.5 07/26/2017 [facility] HEMATOLOGY RBC Morph Normal (07/26/17 4:13 AM) 07/26/2017 [facility] HEMATOLOGY Plt Morph Normal (07/26/17 4:13 AM) 07/26/2017 [facility] LIPIDS CHD Risk 3.21 4.00 - 7.30 07/26/2017 [facility] LIPIDS VLDL 20 07/26/2017 [facility] LIPIDS LDL (Calculated) 33 mg/dL <=99 mg/dL 07/26/2017 [facility] LIPIDS Trig 102 mg/dL <=149 mg/dL 07/26/2017 [facility] LIPIDS HDL 24 mg/dL >=61 mg/dL 07/26/2017 [facility] LIPIDS Chol 77 mg/dL <=199 mg/dL 07/26/2017 [facility] SPECIAL CHEMISTRY Hgb A1C 5.3 % <=5.6 % 07/26/2017 [facility] HEMATOLOGY PT 15.1 s 12.0 - 14.7 07/25/2017 [facility] HEMATOLOGY INR 1.18 0.85 - 1.17 07/25/2017 [facility] HEMATOLOGY PTT 73.5 s 22.9 - 35.8 07/25/2017 [facility] CHEM PANEL Bili Direct 0.2 mg/dL 0.0 - 0.3 07/25/2017 [facility] CHEM PANEL Total Protein 5.4 g/dL 6.4 - 8.4 07/25/2017 [facility] CHEM PANEL Alk Phos 101 unit/L 39 - 136 07/25/2017 [facility] CHEM PANEL AST 45 unit/L 0 - 37 07/25/2017 [facility] CHEM PANEL ALT 122 unit/L 0 - 65 07/25/2017 [facility] CHEM PANEL A/G Ratio 0.5 0.7 - 1.6 07/25/2017 [facility] CHEM PANEL Globulin 3.6 g/dL 2.7 - 4.2 07/25/2017 [facility] CHEM PANEL Albumin Lvl 1.8 g/dL 3.5 - 5.0 07/25/2017 [facility] CHEM PANEL Bili Total 0.4 mg/dL 0.2 - 1.3 07/25/2017 [facility] CHEM PANEL B/C Ratio 37 6 - 25 07/25/2017 [facility] Chest 1view DX Chest 1view DX Patient Name: TEDDY LESTER : 1945; Age: 72 years y/o Male MR: [id number] Study: Chest 1view DX 07/25/2017 3:00 AM [...] No other significant new or acute findings. : [id number] 07/25/2017 - - Read by: Remigio Varela MD Dictated Date/time: 07/25/17 07:10 Electronically Signed by: Remigio Varela MD 07/25/17 07:17 FINAL REPORT [facility] HEMATOLOGY PTT 78.5 s 22.9 - 35.8 07/24/2017 [facility] CHEM PANEL Bili Indirect 0.3 mg/dL 0.0 - 1.0 07/24/2017 [facility] CHEM PANEL Bili Direct 0.3 mg/dL 0.0 - 0.3 07/24/2017 [facility] Chest 1view DX Chest 1view DX Portable chest: The endotracheal tube, nasogastric tube and right jugular sheath are in satisfactory position. There is no visible pneumothorax or significant effusion. Mild left basilar subsegmental atelectasis is noted. The lungs and pleural spaces are otherwise clear. The cardiac silhouette is mildly enlarged without significant pulmonary venous congestion. There is no other significant change. [id number] 07/24/2017 - - Read by: Esa Danielle MD Dictated Date/time: 07/24/17 08:36 Electronically Signed by: Esa Danielle MD 07/24/17 08:37 FINAL REPORT [facility] CHEM PANEL Bili Indirect 0.3 mg/dL 0.0 - 1.0 07/23/2017 [facility] CHEM PANEL Bili Direct 0.4 mg/dL 0.0 - 0.3 07/23/2017 [facility] Chest 1view DX Chest 1view DX [...] the previous exam, 07/23/2017, 6:14 AM.Right IJ Bremen-Mone introducer or catheter is again noted. NG tube tip is present below the level of the hemidiaphragms excluded from view by positioning and/or technique. : [id number] 07/23/2017 - - Read by: Jeffrey Huang MD Dictated Date/time: 07/23/17 09:56 Electronically Signed by: Jeffrey Huang MD 07/23/17 10:00 FINAL REPORT [facility] Chest 1view DX Chest 1view DX [...] congestion. There is no other significant change. SL [id number] 07/23/2017 - - Read by: Esa Danielle MD Dictated Date/time: 07/23/17 08:01 Electronically Signed by: Esa Danielle MD 07/23/17 08:03 FINAL REPORT [facility] HEMATOLOGY Plt Morph Normal (07/22/17 5:31 PM) 07/22/2017 [facility] HEMATOLOGY RBC Morph Normal (07/22/17 5:31 PM) 07/22/2017 [facility] Brain wo contrast CT Brain wo contrast CT Patient Name: TEDDY LESTER : 1945. Age: 72 years. Gender: Male. MR: [id number]. Location: [facility]. EXAM: Brain wo contrast CT. PROVIDED [...] to clarify acuity. On 07/22/2017 4:29 PM BLACK PICKLER, I discussed the watkins findings by telephone with the patient's nurse, Nancy Kilgore RN, who confirmed read-back and agreed to relay the findings to the appropriate attending clinician. SL: ERIN 07/22/2017 - - Read by: Marcus Crowell MD Dictated Date/time: 07/22/17 15:58 Electronically Signed by: Marcus Crowell MD 07/22/17 16:36 FINAL REPORT [facility] ENDOCRINOLOGY Cortisol 14.7 ug/dl 07/22/2017 [facility] BLOOD BANK RESULTS ABO/Rh O POS 07/22/2017 [facility] BLOOD BANK RESULTS Antibody Scrn Negative (07/22/17 8:48 AM) 07/22/2017 [facility] BLOOD BANK RESULTS RBC product Product available (07/22/17 7:17 AM) 07/22/2017 [facility] CHEM PANEL Bili Indirect 0.3 mg/dL 0.0 - 1.0 07/22/2017 [facility] HEMATOLOGY Eosinophils # 0.1 K/CMM 0.0 - 0.5 07/22/2017 [facility] Chest 1view DX Chest 1view DX [...] Ana Lezama MD 07/22/17 05:24 FINAL REPORT [facility] PT 15.1 s 12.0 - 14.7 07/21/2017 [facility] INR 1.18 0.85 - 1.17 07/21/2017 [facility] Chest 1view DX Chest 1view DX Patient Name: TEDDY LESTER : 1945; Age: 72 years y/o Male MR: [id number] * CHEST, portable, 1 view HISTORY: Status [...] lower thoracic and upper lumbar region. SL: [id number] 07/21/2017 - - Read by: Oliver Bryan MD Dictated Date/time: 07/21/17 07:39 Electronically Signed by: Oliver Bryan MD 07/21/17 07:42 FINAL REPORT [facility] Plt Morph Normal (07/20/17 5:32 AM) 07/20/2017 [facility] RBC Morph See Note (07/20/17 5:32 AM) 07/20/2017 [facility] Polychrom slight 07/20/2017 [facility] Chest 1view DX Chest 1view DX [...] cava. There is interval removal of a Bremen-Mone catheter. LUNGS: Lung volumes are maintained. There [...] No evidence of pneumothorax or effusions. SL: [id number] 07/20/2017 - - Read by: Uriel Hauser MD Dictated Date/time: 07/20/17 09:22 Electronically Signed by: Uriel Hauser MD 07/20/17 09:24 FINAL REPORT [facility] TOXICOLOGY Vanco Lvl 15.8 ug/ml 07/19/2017 [facility] CHEM PANEL Procalcitonin Lvl 35.20 ng/mL 0.00 - 0.10 07/19/2017 Result Comment: Critical Result(s) called to Eloise Hanley at 07/19/2017 06:06 by BE. Read back OK. [facility] Chest 1view DX Chest 1view DX Clinical indication: line placement, s/p CABG Comparison: Chest 1 view 07/18/2017 TECHNIQUE: AP chest FINDINGS: Lines, tubes and hardware: Bremen-Mone catheter tip is in stable position, likely [...] pneumonia. 2. Stable lines and tubes. SL: [id number] 07/19/2017 - - Read by: Ilana Bazan MD Dictated Date/time: 07/19/17 07:24 Electronically Signed by: Ilana Bazan MD 07/19/17 07:28 FINAL REPORT [facility] HEMATOLOGY PT 17.7 s 12.0 - 14.7 07/18/2017 [facility] HEMATOLOGY INR 1.45 0.85 - 1.17 07/18/2017 [facility] TOXICOLOGY Vanco Lvl 21.5 ug/ml 07/18/2017 [facility] Hep C Ab Negative *NA* (07/18/17 10:25 AM) 07/18/2017 [facility] Hep A IgM Negative *NA* (07/18/17 10:25 AM) Negative 07/18/2017 [facility] Hep B Core IgM Negative *NA* (07/18/17 10:25 AM) Negative 07/18/2017 [facility] Hep Bs Ag Negative *NA* (07/18/17 10:25 AM) Negative 07/18/2017 [facility] BLOOD BANK RESULTS RBC product Product available 1 (07/18/17 9:13 AM) 07/18/2017 Result Comment: 07/18/2017 09:21 [id number] notified [facility] CHEM PANEL Lipase Lvl 101 unit/L 73 - 393 07/18/2017 [facility] Liver US Liver US Clinical Indication: [...] Hepatomegaly with steatosis. 2. Prior cholecystectomy. SL: [id number] 07/18/2017 - - Read by: Ovidio Navarro MD Dictated Date/time: 07/18/17 13:37 Electronically Signed by: Ovidio Navarro MD 07/18/17 13:39 FINAL REPORT [facility] Chest 1view DX Chest 1view DX Portable chest: The endotracheal tube, nasogastric tube left pleural and mediastinal tubes remain in place. The Bremen-Mone catheter tip is probably in a branch of the right lower lobe pulmonary artery. There is no visible pneumothorax. Mild bibasilar subsegmental atelectasis is again noted. There is mild left lower lobe infiltrate. The lungs and pleural spaces are otherwise clear. There is no other significant change from the previous day considering phase of respiration. [id number] 07/18/2017 - - Read by: Esa Danielle MD Dictated Date/time: 07/18/17 07:09 Electronically Signed by: Esa Danielle MD 07/18/17 07:12 FINAL REPORT [facility] PARATHYROID PROFILE Ca Ion WB 0.93 mMol/L 1.05 - 1.25 07/18/2017 [facility] PARATHYROID PROFILE Ca Norm WB 0.92 mMol/L 1.05 - 1.25 07/18/2017 [facility] CHEM PANEL Lactic Acid Lvl 1.8 mMol/L 0.5 - 2.2 07/17/2017 [facility] TOXICOLOGY Vanco Lvl 16.3 ug/ml 07/17/2017 [facility] CHEM PANEL Lactic Acid Lvl 4.6 mMol/L 0.5 - 2.2 07/17/2017 Result Comment: Critical Result(s) called to Tanvir Huang at 07/17/2017 12:09 byHA. Read back OK. [facility] CHEM PANEL Lipase Lvl 321 unit/L 73 - 393 07/17/2017 [facility] BLOOD BANK RESULTS Antibody Scrn Negative (07/17/17 7:52 AM) 07/17/2017 [facility] BLOOD BANK RESULTS ABO/Rh O POS 07/17/2017 [facility] BLOOD [facility] RESULTS RBC product Product available 2 (07/17/17 7:37 AM) 07/17/2017 Result Comment: 07/17/2017 09:36 [id number] Called to Tanvir Huang at 07/17/2017 09:32 by Rick Murphy. [facility] HEMATOLOGY Pat Od Value 0.121 07/17/2017 [facility] HEMATOLOGY Pos CO Value 0.400 07/17/2017 [facility] HEMATOLOGY Heparin Ab(TADEO) Negative 3 (07/16/17 11:22 PM) Negative 07/17/2017 Result Comment: This assay detects heparin antibodies of IgG isotype. Antibodies of other isotypes have been reported to cause heparin-induced thrombocytopenia. Therefore, if there is a strong clinical suspicion of HIT, additional study with a serotonin release assay is recommented. [facility] Thrombin Time null 15.0 - 21.2 07/17/2017 Result Comment: Critical Result(s) called to Vinicius Huagn at 07/17/2017 14:17 bysmt. Read back OK. [facility] FSP >=20 ug/ml <5 ug/ml 07/17/2017 Result Comment: Critical Result(s) called to Patience Corcoran at 07/17/2017 00:28 by BE. Read back OK. [facility] Fibrinogen Lvl 821 mg/dL 230 - 510 07/17/[address] [facility] D-Dimer 3.77 ug/mL FEU 07/17/2017 [facility] CHEM PANEL Lactic Acid Lvl 5.1 mMol/L 0.5 - 2.2 07/17/2017 Result Comment: Critical Result(s) called to Lauri Corcoran at 07/16/2017 23:48 by MJ. Read back OK. [facility] Chest 1view DX Chest 1view DX [...] change from previous study is noted. SL: [id number] 07/17/2017 - - Read by: Yaniv Arreola MD Dictated Date/time: 07/17/17 08:18 Electronically Signed by: Yaniv Arreola MD 07/17/17 08:20 FINAL REPORT [facility] HEMATOLOGY Polychrom Slight 07/16/2017 [facility] Atypical Lymphs 0.0 % <=0.0 % 07/16/2017 [facility] HEMATOLOGY Bands 7.0 % 0.0 - 11.0 07/16/2017 [facility] CARDIAC ENZYMES BNP 675 pg/mL <=100 pg/mL 07/16/2017 [facility] Ext Lower Venous Doppler Bilat US Ext Lower Venous Doppler Bilat US Patient Name: TEDDY LESTER : 1945; Age: 72 years y/o Male MR: [id number] Study: Ext Lower Venous Doppler Bilat US 07/16/2017 10:50 AM BLACK PICKLER Ordering Physician: Clinical Indication: - DVT; Comparison: None Bilateral lower extremity venous Doppler ultrasound exam Normal flow and compressibility throughout the bilateral common femoral, superficial femoral, and popliteal venous segments. Distal augmentation is preserved. Incidentally noted is thrombus within the left greater saphenous vein (superficial venous thrombosis). IMPRESSION: No evidence for lower extremity DVT. Left greater saphenous vein (superficial venous) thrombosis. SL: [id number] 07/16/2017 - - Read by: Remigio Varela MD Dictated Date/time: 07/16/17 12:34 Electronically Signed by: Remigio Varela MD 07/16/17 12:36 FINAL REPORT [facility] Chest 1view DX Chest 1view DX Patient Name: TEDDY LESTER : 1945; Age: 72 years y/o Male MR: [id number] Study: Chest 1view DX 07/16/2017 9:57 AM BLACK PICKLER Ordering Physician: Clinical Indication: - resp distress; Comparison: July 16, 2017 at 0409 1 view chest IMPRESSION: Nasogastric tube has been removed. Endotracheal tube satisfactory. Bremen-Mone catheter is in satisfactory position. Uncertain of presence of residual chest tube. Improving bibasilar atelectasis. No new infiltrate, pleural effusion or pneumothorax. Stable mild cardiomegaly without overt CHF or pulmonary edema. 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 Chest [...] for the patient's time of dictation. SL: [id number] 07/16/2017 - - Read by: Remigio Varela MD Dictated Date/time: 07/16/17 07:15 Electronically Signed by: Remigio Varela MD 07/16/17 07:20 FINAL REPORT [facility] URINE AND STOOL UA Color Ltyellow 07/15/2017 [facility] URINE AND STOOL UA Urobilinogen <=1.0 mg/dL 0.1 - 1.0 07/15/2017 [facility] URINE AND STOOL UA Sq Epi None [...] Est Negative (07/15/17 2:53 PM) Negative 07/15/2017 [facility] URINE AND STOOL UA Blood Moderate *ABN* (07/15/17 2:53 PM) Negative 07/15/2017 [facility] URINE AND STOOL UA Bili Negative *NA* (07/15/17 2:53 PM) Negative 07/15/2017 [facility] URINE AND STOOL UA Ketones Negative mg/dL Negative mg/dL 07/15/2017 [facility] URINE AND STOOL UA Spec Grav 1.008 <=1.030 07/15/2017 [facility] URINE AND STOOL UA Turbidity Clear (07/15/17 2:53 PM) Clear 07/15/2017 [facility] S. aureus Not Detected (07/15/17 11:00 AM) Not Detected 07/15/2017 [facility] DIAGNOSTIC S. pyogenes Not Detected (07/15/17 11:00 AM) Not Detected 07/15/2017 [facility] DIAGNOSTIC S. agalactiae Not Detected (07/15/17 11:00 AM) Not Detected 07/15/2017 [facility] E. faecalis Not Detected (07/15/17 11:00 AM) Not Detected 07/15/2017 [facility] E. faecium Not Detected (07/15/17 11:00 AM) Not Detected 07/15/2017 [facility] S. epidermidis Not Detected (07/15/17 11:00 AM) Not Detected 07/15/2017 [facility] DIAGNOSTIC S. lugdunensis Not Detected (07/15/17 11:00 AM) Not Detected 07/15/2017 [facility] DIAGNOSTIC S. anginosus grp Not Detected (07/15/17 11:00 AM) Not Detected 07/15/2017 [facility] vanB Vancomycin Resistance Not Detected (07/15/17 11:00 AM) Not Detected 07/15/2017 [facility] Streptococcus spp. Detected *ABN* (07/15/17 11:00 AM) Not Detected 07/15/2017 [facility] Smiley Vancomycin Resistance Not Detected (07/15/17 11:00 AM) Not Detected 07/15/2017 [facility] DIAGNOSTIC Listeria spp. Not Detected (07/15/17 11:00 AM) Not Detected 07/15/2017 [facility] S. pneumoniae Not Detected (07/15/17 11:00 AM) Not Detected 07/15/2017 [facility] DIAGNOSTIC Staphylococcus spp. Not Detected (07/15/17 11:00 AM) Not Detected 07/15/2017 [facility] DIAGNOSTIC mecA Methicillin Resistance Not Detected (07/15/17 11:00 AM) Not Detected 07/15/2017 [facility] PARATHYROID PROFILE Ca Norm WB 1.03 mMol/L 1.05 - 1.25 07/15/2017 [facility] PARATHYROID PROFILE Ca Ion WB 1.02 mMol/L 1.05 - 1.25 07/15/2017 [facility] HEMATOLOGY Basophils # 0.1 K/CMM 0.0 - 0.2 07/15/2017 [facility] Chest 1view DX Chest 1view DX Portable chest: The endotracheal tube, nasogastric tube, left pleural and mediastinal tubes are in satisfactory position. The Bremen-Mone catheter tip is in the main pulmonary artery. There is mild linear scarring or subsegmental atelectasis in the left midlung. There is no visible pneumothorax or significant effusion. The lungs and pleural spaces are otherwise clear. There is no significant change compared to the previous day. [id number] 07/15/2017 - - Read by: Esa Danielle MD Dictated Date/time: 07/15/17 08:41 Electronically Signed by: Esa Danielle MD 07/15/17 08:42 FINAL REPORT [facility] Chest 1view DX Chest 1view DX Study: Frontal chest x-ray compared to prior study from the same day History: Respiratory failure. Comments: The patient is rotated. The cardiomediastinal silhouette is top normal in size. No pneumonia. Emphysematous changes in the lungs. Scarring in the left lower lobe. Endotracheal tube unchanged. Right IJ approach Bremen-Mone catheter tip is in the main pulmonary artery Feeding tube tip is at the gastroduodenal junction. Recommend advancing No pleural effusions or pneumothorax. Impression: No acute cardiopulmonary disease. Feeding tube tip is at the gastroduodenal junction. Recommend advancing 07/14/2017 - - Read by: Ceci Mendoza MD Dictated Date/time: 07/14/17 19:38 Electronically Signed by: Ceci Mendoza MD 07/14/17 19:46 FINAL REPORT [facility] Abdomen 1 v for Placement DX Abdomen 1 v for Placement DX Patient Name: TEDDY LESTER : 1945; Age: 72 years Male MR: [id number] Study: Abdomen 1 v for Placement DX 07/14/2017 5:20 PM BLACK PICKLER CLINICAL INDICATION: - ng tube placement COMPARISON: [...] Jordon Roberts MD 07/14/17 21:23 FINAL REPORT [facility] Basophils # 0.1 K/CMM 0.0 - 0.2 07/14/2017 [facility] Chest 1view DX Chest 1view DX [...] change from previous study is noted. SL: [id number] 07/14/2017 - - Read by: Yaniv Arreola MD Dictated Date/time: 07/14/17 09:19 Electronically Signed by: Yaniv Arreola MD 07/14/17 09:25 FINAL REPORT [facility] PTT 30.3 s 22.9 - 35.8 07/13/2017 [facility] PT 18.1 s 12.0 - 14.7 07/13/2017 [facility] INR 1.49 0.85 - 1.17 07/13/2017 [facility] Chest 1view DX Chest 1view DX Clinical Indication: Respiratory distress - s/p cabg Comparison: 07/12/2017 FINDINGS: AP chest radiograph was obtained. MEDIASTINUM: The cardiac silhouette is enlarged. The aorta is unremarkable. There are sternal wires overlying the mediastinum. There is a Bremen-Mone catheter which terminates in the proximal right [...] pneumothorax. Support devices as described above. SL: [id number] 07/13/2017 - - Read by: Uriel Hauser [...] RBC 11 /HPF 0 - 2 07/12/2017 [facility] URINE AND STOOL UA Trans Epi 24 /LPF <=0 /LPF 07/12/2017 [facility] URINE AND STOOL UA Spec Grav 1.009 <=1.030 07/12/2017 [facility] URINE AND STOOL UA Turbidity Slight *ABN* (07/12/17 2:43 PM) Clear 07/12/2017 [facility] BLOOD BANK RESULTS ABO/Rh O POS 07/12/2017 [facility] BLOOD BANK RESULTS Antibody Scrn Negative (07/12/17 12:56 PM) 07/12/2017 [facility] BLOOD BANK RESULTS FFP product Product available (07/12/17 11:23 AM) 07/12/2017 [facility] BLOOD BANK RESULTS Platelet product Product available (07/12/17 11:23 AM) 07/12/2017 [facility] Chest 1view DX Chest 1view DX [...] IMPRESSION: No acute infiltrates or effusions. SL: [id number] 07/12/2017 - - Read by: Uriel Hauser MD Dictated Date/time: 07/12/17 12:40 Electronically Signed by: Uriel Hauser MD 07/12/17 12:41 FINAL REPORT [facility] Carotid artery Doppler bilat US Carotid artery Doppler bilat US Patient Name: TEDDY LESTER : 1945; Age: 72 years y/o Male MR: [id number] Study: Carotid artery Doppler bilat US 07/12/2017 9:24 AM BLACK PICKLER Ordering Physician: Kalee Corral Clinical Indication: - [...] Near occlusion High, low, or Variable undetectable SL: [id number] 07/12/2017 - - Read by: Remigio Varela MD Dictated Date/time: 07/12/17 11:29 Electronically Signed by: Remigio Varela MD 07/12/17 11:30 FINAL REPORT [facility] Small bowel series DX Small bowel series DX Exam: Small bowel x-ray series Reason for Exam: R10.11 Right upper quadrant pain Comparison Exam: CT scan 06/23/2010 Discussion: On tank welder view, there are no dilated loops of [...] time 1 minute, 32 seconds. Total exam FJJ=0130 mGy-cm. Impression: 1. Unremarkable small bowel x-ray series 09/08/2016 - - Read by: Marcus Ferguson MD Dictated Date/time: 09/08/16 13:39 Electronically Signed by: Marcus Fergsuon MD 09/08/16 13:46 FINAL REPORT [facility] Vital Signs Vital Sign Value Date Comments Source Respitory Rate 09/04/2017 [facility] Respitory Rate 22 09/04/2017 [facility] Systolic (mm Hg) 112 09/04/2017 [facility] Diastolic (mm Hg) 72 09/04/2017 [facility] Respitory Rate 20 09/04/2017 [facility] Systolic (mm Hg) 112 09/04/2017 [facility] Diastolic (mm Hg) 72 09/04/2017 [facility] Systolic (mm Hg) 149 09/04/2017 [facility] Diastolic (mm Hg) 84 09/04/2017 [facility] Temperature Oral (F) 98 F 09/04/2017 [facility] Temperature Oral (F) 98.0 F 09/03/2017 [facility] Temperature Oral (F) 97.8 F 09/03/2017 [facility] Weight 104.545 09/03/2017 [facility] Weight 101.364 09/02/2017 [facility] BMI Calculated 25.82 09/02/2017 [facility] Height 198.12 cm 09/02/2017 [facility] Heart Rate 65 09/02/2017 [facility] Heart Rate 62 08/09/2017 [facility] Temperature Oral (F) 98.1 F 08/09/2017 [facility] Systolic (mm Hg) 149 08/09/2017 [facility] Diastolic (mm Hg) 96 08/09/2017 [facility] Respitory Rate 18 08/09/2017 [facility] Temperature Oral (F) 97.9 F 08/09/2017 [facility] Heart Rate 57 08/09/2017 [facility] Systolic (mm Hg) 107 08/09/2017 [facility] Diastolic (mm Hg) 66 08/09/2017 [facility] Respitory Rate 18 08/08/2017 [facility] Systolic (mm Hg) 146 08/08/2017 [facility] Diastolic (mm Hg) 92 08/08/2017 [facility] Heart Rate 57 08/08/2017 [facility] Temperature Oral (F) 98.0 F 08/08/2017 [facility] Respitory Rate 18 08/08/2017 [facility] BMI Calculated 29.88 07/30/2017 [facility] Height 195.58 cm 07/30/2017 [facility] Weight 114.3 07/30/2017 [facility] Respitory Rate 20 07/29/2017 [facility] Heart Rate 57 07/29/2017 [facility] Systolic (mm Hg) 142 07/29/2017 [facility] Diastolic (mm Hg) 78 07/29/2017 [facility] Temperature Oral (F) 97.5 F 07/29/2017 [facility] Systolic (mm Hg) 128 07/29/2017 [facility] Diastolic (mm Hg) 75 07/29/2017 [facility] Respitory Rate 20 07/29/2017 [facility] Heart Rate 64 07/29/2017 [facility] Temperature Oral (F) 97.7 F 07/29/2017 [facility] Systolic (mm Hg) 153 07/29/2017 [facility] Diastolic (mm Hg) 95 07/29/2017 [facility] Heart Rate 59 07/29/2017 [facility] Respitory Rate 20 07/29/2017 [facility] Temperature Oral (F) 97.8 F 07/29/2017 [facility] Height 198 cm 07/25/2017 [facility] Height 198 cm 07/25/2017 [facility] Height 198 cm 07/25/2017 [facility] Weight 120.6 07/17/2017 [facility] Weight 113.4 07/16/2017 [facility] Weight 112 07/15/2017 [facility] BMI Calculated 28.69 07/12/2017 [facility] Encounters Location Location Details Encounter Type Encounter Number Reason For Visit Attending Provider ADM Date DC Date Status Source [facility] [id number] Jim Hwang 09/08/2016 [facility]09[id number] Rand Salcedo 07/12/2017 07/30/2017 [facility] PreAdmit [id number] Rand Salcedo 07/12/2017 07/12/2017 [facility] [id number] Eugenio Rutherford Jr 07/30/2017 08/09/2017 [facility] OP Therapy Patients [id number] Eugenio Rutherford Jr 08/18/2017 09/17/2017 [facility] Outpatient [id number] Alex Carmona 08/26/2017 08/27/2017 [facility] Inpatient [id number] Erik Andino 09/02/2017 09/04/2017 [facility] Procedures Procedure Code Date Perfomer Comments Source Back fusion [id number] 07/04/2011 [facility] Back fusion [id number] 07/04/2011 [facility] Hernia repair [id number] 07/09/2009 [facility] Hernia repair [id number] 07/09/2009 [facility] CABG x 4 - Coronary artery bypass grafts x 4 [id number] [facility] Excision of gallbladder [id number] [facility] CABG x 4 - Coronary artery bypass grafts x [id number] [facility] Excision of gallbladder [id number] [facility]
--- NOTE | 2018-08-31 18:38 | Diagnostic Imaging Report ---
Exam: Abdominal film Clinical History: Left-sided pain Comparison: None. DISCUSSION: Nonobstructive bowel gas pattern. No free air. Prior multilevel vertebroplasty. IMPRESSION: 1. Nonobstructive bowel gas pattern. Signed by: Dr. Jose Sands M.D. on 08/31/2018 6:35 PM
[2018-08-31] MEDS ORDERED: COLACE100 MG PO (18:50)
[2018-08-31 21:03] VITALS: BP 157/103
== END 2018-08-31 21:09 | disposition home or self-care (01) ==
LOC: ER 16:52
DX: R10.32 Left lower quadrant pain (principal); R10.84 Generalized abdominal pain
CPT/HCPCS: 74018; 99283

== ENCOUNTER 2018-09-30 18:57 | Emergency (ER) | payer MEDICARE ==
[~2018-09-30] VITALS: Ht 198.1 cm; Wt 106.6 kg
[~2018-09-30 18:57] MED LIST changes: +COLACE100 MG PO
[2018-09-30] MEDS ORDERED: NITROGLYCERIN 2% OINT 1 GM PKT TOP NR (19:15)
[2018-09-30 19:18] LABS: BASOPHILS % 0.1 % (0.0-1.0); EOSINOPHILS % 0.1 % (0.0-6.0); HEMATOCRIT 42.5 % (38.2-49.6); HEMOGLOBIN 14.7 g/dL (14.0-18.0); LYMPHOCYTES # (AUTO) 1.8 (1.0-3.2); LYMPHOCYTES % 15.7 % (18.0-39.1); MEAN CORPUSCULAR HEMOGLOBIN 30.9 pg (28-32); MEAN CORPUSCULAR HGB CONC 34.6 g/dL (31-35); MEAN CORPUSCULAR VOLUME 89.3 fL (81-99); NEUTROPHILS # (AUTO) 8.2 (2.1-6.9); NEUTROPHILS % 73.5 % (38.7-80.0); PLATELET COUNT 257 x10e3/uL (140-360); RED BLOOD COUNT 4.76 x10e6/uL (4.3-5.7)
[2018-09-30 19:22] LABS: INR 0.87; PROTHROMBIN TIME 12.3 seconds (11.9-14.5)
[2018-09-30 19:32] LABS: ALBUMIN 4.1 g/dL (3.5-5.0); CREATININE, SERUM 1.42 mg/dL (0.72-1.25)
[2018-09-30 19:39] LABS: CREATINE KINASE MB 0.9 ng/mL (0-5.0)
--- NOTE | 2018-09-30 19:41 | Diagnostic Imaging Report ---
Examination: Single AP view of the chest. COMPARISON: CT chest 07/20/2018 INDICATION: Chest pain IMPRESSION: 1. Lines and Tubes: None 2. Lungs are grossly clear. No consolidation or effusion. 3. Cardiomediastinal silhouette is normal. Pulmonary vasculature is normal. Apparent widening of the right paratracheal stripe, corresponding to previously visualized uncoiled ascending aorta. Calcified mediastinal lymph nodes. 4. No acute bony abnormalities. Signed by: Dr. Jere Strong M.D. on 09/30/2018 7:38 PM
[2018-09-30] MEDS ORDERED: SODIUM CHLORIDE 0.9% 1000ML 1,000 ML IV ONE (19:45)
--- NOTE | 2018-09-30 21:35 | Diagnostic Imaging Report ---
EXAM: CT Chest WITH contrast (PE Protocol) INDICATION: Chest pain, upper chest pain, positive d-dimer. COMPARISON: CTA chest abdomen and pelvis 07/20/2018 TECHNIQUE: Chest was scanned utilizing a multidetector helical scanner from the lung apex through the level of the diaphragm after administration of IV contrast. Thin section reconstructions were obtained with special concentration on the pulmonary arteries. Coronal and sagittal reformations were obtained. Pulmonary embolism protocol was performed. IV CONTRAST: 100 mL of Isovue 370 COMPLICATIONS: None RADIATION DOSE: Total DLP: 625.74 mGy*cm Estimated effective dose: (DLP x 0.014 x size factor) mSv Dose modulation, iterative reconstruction, and/or weight based adjustment of the mA/kV was utilized to reduce the radiation dose to as low as reasonably achievable. FINDINGS: LINES/ TUBES: None. LUNGS AND AIRWAYS: No filling defect is identified within the pulmonary arteries to the segmental level. Poor opacification of subsegmental arteries. Stable apical pleural-parenchymal scarring. Linear opacities in the posterior right lower lobe likely represent subsegmental atelectasis. No consolidation. Major airways are clear, without loculations PLEURA: The pleural spaces are clear. HEART AND MEDIASTINUM: The thyroid gland is unremarkable. The heart is normal in size.. Trace pericardial fluid. Tortuous aorta.. Main pulmonary artery measures 2.9 cm in diameter and the ascending aorta measures 4 cm, mildly ectatic. Median sternotomy wires and CABG clips. LYMPH NODES:Calcified mediastinal and hilar lymph nodes. Stable mildly enlarged right lower paratracheal lymph node which measures 1.2 cm in short axis) series 301, image 46). No other mediastinal, or any hilar or axillary lymphadenopathy. UPPER ABDOMEN: Stable small hiatal hernia. Visualized liver, spleen, pancreas and adrenal glands are unremarkable. Stable left renal 1.6 cm cyst. Stable partially visualized right renal 1.7 cm cyst. BONES: Diffuse osseous demineralization. No acute osseous abnormalities. Multiple stable compression deformities and changes of vertebroplasty. SOFT TISSUES: Unremarkable. IMPRESSION: 1. No pulmonary emboli to the segmental level. 2. Right lower lobe subsegmental atelectasis. No consolidation. 3. Stable mildly enlarged right lower paratracheal lymph node, likely reactive. No other adenopathy. Signed by: Dr. Jere Strong M.D. on 09/30/2018 9:32 PM
[2018-09-30 22:20] VITALS: BP 141/102
[2018-10-01] MEDS ORDERED: IOPAMIDOL 370 MG/ML 200 ML INFUS..BTL INJ ONE (01:59)
[2018-10-01] MEDS ORDERED: SODIUM CHLORIDE 0.9% 50ML 50 ML ONE (01:59)
== END 2018-09-30 22:32 | disposition home or self-care (01) ==
LOC: ER 18:57
DX: R07.89 Other chest pain (principal); I10 Essential (primary) hypertension; I48.91 Unspecified atrial fibrillation; I25.10 Atherosclerotic heart disease of native coronary artery without angina pectoris; I25.2 Old myocardial infarction; Z86.718 Personal history of other venous thrombosis and embolism
CPT/HCPCS: 36415; 71045; 71260; 80053; 82550; 82553; 83880; 84484; 85025; 85379; 85610; 85730; 93005; 99284; J7030

== ENCOUNTER 2018-11-19 09:04 | Emergency (ER) | payer MEDICARE ==
[~2018-11-19] VITALS: Ht 198.1 cm; Wt 108.9 kg
[2018-11-19] MEDS ORDERED: BACLOFEN10 MG PO (09:29)
--- NOTE | 2018-11-19 09:41 | NUR ---
urine culture complete
[2018-11-19] MEDS ORDERED: KEFLEX500 MG PO (10:14)
--- NOTE | 2018-11-19 10:16 | Diagnostic Imaging Report ---
EXAM: CT Abdomen and Pelvis WITHOUT contrast INDICATION: ^[id number] ^[id number] COMPARISON: CT chest 09/30/2018, KUB 08/31/2018, CTA abdomen pelvis 06/01/2018, CT abdomen and pelvis 04/02/2018 TECHNIQUE: Abdomen and pelvis were scanned utilizing a multidetector helical scanner from the lung base to the pubic symphysis without administration of IV contrast. Absence of intravenous contrast decreases sensitivity for detection of focal lesions and vascular pathology. Coronal and sagittal reformations were obtained. Routine protocol was performed. IV CONTRAST: None. ORAL CONTRAST: None RADIATION DOSE: Total DLP: 766.1 mGy*cm Estimated effective dose: (DLP x 0.015 x size factor) mSv COMPLICATIONS: None FINDINGS: LINES and TUBES: None. LOWER THORAX: Lung bases are clear. Extensive coronary artery calcification, unchanged. Partially visualized median sternotomy wires. HEPATOBILIARY: No focal hepatic lesions. No biliary ductal dilation. GALLBLADDER: No radio-opaque stones or sludge. No wall thickening. SPLEEN: No splenomegaly. PANCREAS: No focal masses or ductal dilatation. ADRENALS: No adrenal nodules KIDNEYS/URETERS: No hydronephrosis. Stable bilateral renal cysts measuring up to 4.3 cm on the left. Mild nonspecific bilateral perinephric fluid collection and fat stranding. No stones. GI TRACT: No abnormal distention, wall thickening, or evidence of bowel obstruction. Diffuse diverticulosis throughout the large and small bowel. This is unchanged. No diverticulitis. Appendix is normal. PELVIC ORGANS/BLADDER: The urinary bladder appears unremarkable. A few prostate calcifications. The prostate normal in size. LYMPH NODES: No lymphadenopathy. VESSELS: Moderate atherosclerotic calcifications of the abdominal aorta and pelvic arteries without aneurysm. PERITONEUM / RETROPERITONEUM: No free air or fluid. BONES: Advanced multilevel degenerative changes of the lumbar spine with multiple fracture deformities, status post kyphoplasty from T11 to L4. SOFT TISSUES: Unremarkable. IMPRESSION: 1. Unremarkable urinary bladder. 2. Mild bilateral perinephric fat stranding and fluid collections are nonspecific but may reflect mild pyelonephritis. No calcified stones or hydronephrosis. 3. Diffuse small and large bowel diverticulosis without diverticulitis, unchanged. Signed by: Dr. Lisa Epperson M.D. on 11/19/2018 10:13 AM
[2018-11-19] MEDS ORDERED: PYRIDIUM100 MG PO (10:18)
[2018-11-19] MEDS ORDERED: CEFTRIAXONE SOD 1 GM/NS 50 ML 50 ML IV ONE ×2 (10:29→11:00)
--- NOTE | 2018-11-19 10:37 | NUR ---
Dr. Zepeda aware of BP, pt did not take BP meds this morning and will go home and take BP meds and pain meds as he will not have to drive any more today. Pt was not medicated for pain as he was driving and has pain meds at home.
[2018-11-19 11:02] VITALS: BP 142/92
== END 2018-11-19 10:54 | disposition home or self-care (01) ==
LOC: FSED 09:04
DX: R10.30 Lower abdominal pain, unspecified (principal); N30.90 Cystitis, unspecified without hematuria; N10 Acute pyelonephritis; I10 Essential (primary) hypertension; I25.10 Atherosclerotic heart disease of native coronary artery without angina pectoris; Z95.1 Presence of aortocoronary bypass graft
CPT/HCPCS: 74176; 80053; 81003; 85025; 87086; 93005; 99284; J0696

== ENCOUNTER 2018-11-20 10:50 | Emergency (ER) | payer MEDICARE ==
[~2018-11-20] VITALS: Ht 198.1 cm; Wt 108.9 kg
[~2018-11-20 10:50] MED LIST changes: +BACLOFEN10 MG PO; +KEFLEX500 MG PO; +PYRIDIUM100 MG PO
== END 2018-11-20 11:24 | disposition left against medical advice (07) ==
LOC: FSED 10:50
DX: Z76.0 Encounter for issue of repeat prescription (principal)

== ENCOUNTER 2018-12-05 17:36 | Emergency (ER) | payer MEDICARE ==
[~2018-12-05] VITALS: Ht 198.1 cm; Wt 108.9 kg
[2018-12-05] MEDS ORDERED: ONDANSETRON HCL 4 MG ORAL DISINTEGRATING TAB PO ONE (19:45)
[2018-12-05] MEDS ORDERED: KETOROLAC TROMETHAMINE 60 MG/2 ML VIAL IM ONE (19:45)
[2018-12-05] MEDS ORDERED: ACETAMINOPHEN 325 MG TAB PO NR (19:45)
[2018-12-05] MEDS ORDERED: ACETAMINOPHEN 325 MG TAB ONE (19:46)
[2018-12-05] MEDS ORDERED: KETOROLAC TROMETHAMINE 30 MG/ML VIAL ONE (19:46)
== END 2018-12-05 20:10 | disposition home or self-care (01) ==
LOC: FSED 17:36
DX: B02.29 Other postherpetic nervous system involvement (principal); R10.11 Right upper quadrant pain; R53.83 Other fatigue; R11.0 Nausea; I10 Essential (primary) hypertension; Z95.1 Presence of aortocoronary bypass graft
CPT/HCPCS: 80053; 81003; 82553; 83880; 84484; 85025; 99283; J1885 ×2; Q0162

== ENCOUNTER → 2018-12-21 | Outpatient (CLI) | payer MEDICARE ==
[~2018-12-21] MED LIST changes: +REGADENOSON 0.4 MG/5 ML SYR IV ONE
--- NOTE | 2018-12-27 16:17 | Myoview Stress Test ---
DATE OF STUDY: 12/21/2018 09:44:00 Stress Test - Treadmill ONLY PROCEDURE TITLE: Rest/stress single isotope SPECT imaging with pharmacologic stress and gated SPECT imaging. INDICATION: Coronary artery disease. PROCEDURE IN DETAIL: Pharmacologic stress testing was performed with regadenoson per protocol. The heart rate was 88 beats per minute at rest and increased to 98 beats per minute during the regadenoson infusion. The rest blood pressure was 119/81 mmHg and increased to 141/69 mmHg, which is a normal response. The resting electrocardiogram demonstrated normal sinus rhythm. There were no ST-segment changes consistent with myocardial ischemia. Myocardial perfusion imaging was performed at rest following injection of 10.8 mCi of tetrofosmin. At peak pharmacologic effect, the patient was injected with 31 mCi of tetrofosmin. Gated post-stress tomographic imaging was performed. FINDINGS: The overall quality of study is good. Left ventricle was normal size on the rest and stress studies. SPECT images demonstrate a small mild perfusion defect in the inferior wall on rest and stress. Gated SPECT imaging reveals normal myocardial thickening and wall motion. Left ventricular ejection fraction was calculated to be 58%. IMPRESSION: Myocardial perfusion imaging is abnormal. There is a small nontransmural scar in the inferior wall. Overall, left ventricular systolic function was normal without regional wall motion abnormalities. Rand Salcedo MD ABS/MOD[facility] /[id number]
== END ==
LOC: NM 09:26
PROVIDERS: ATTEND Internal Medicine
DX: I25.10 Atherosclerotic heart disease of native coronary artery without angina pectoris (principal); I48.0 Paroxysmal atrial fibrillation; I50.9 Heart failure, unspecified
CPT/HCPCS: 78452; 93017; A9502; J2785

== ENCOUNTER → 2019-01-22 | Emergency (ER) | payer MEDICARE ==
[~2019-01-22] VITALS: Ht 198.1 cm; Wt 108.9 kg
[~2019-01-22] MED LIST changes: +ACETAMINOPHEN 325 MG TAB ONE; +ACETAMINOPHEN 325 MG TAB PO ONE; -REGADENOSON 0.4 MG/5 ML SYR IV ONE
--- OUTSIDE RECORDS SUMMARY | 2019-01-22 03:57 | XMS REPORT | Continuity of Care Document ---
Author Author [employer] 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 Role Phone [facility] [employer] Information [employer] Unavailable Unavailable Problems Problem Status Onset Date Classification Date Reported Comments Source Abdominal pain Active 10/25/2015 Problem 12/06/2018 [facility] Renal insufficiency Active 10/25/2015 Problem 12/06/2018 [facility] Urinary tract infection Active 10/25/2015 Problem 12/06/2018 [facility] Chest pain Active Problem 12/06/2018 [facility] Chronic generalized abdominal pain Active Problem 12/06/2018 [facility] Poisoning by warfarin sodium Active Problem 12/06/2018 [facility] Diverticulitis of large intestine Active Problem 12/06/2018 [facility] Hypertensive emergency Active Problem 12/06/2018 [facility] Non-traumatic compression fracture of fourth thoracic vertebra Active Problem 12/06/2018 [facility] Non-traumatic compression fracture of fifth thoracic vertebra Active Problem 12/06/2018 [facility] Medications Medication Details Route Status Patient Instructions Ordering Provider Order Date Source Cephalexin Monohydrate (Keflex) 500 Mg Capsule Three Times A Day Active Zeballos 11/19/2018 [facility] Phenazopyridine Hcl (Pyridium) 100 Mg Tablet Three Times A Day Active Zeballos 11/19/2018 [facility] Clonazepam 0.5 Mg Tablet, 0.5 Mg Oral Daily Active 09/30/2018 [facility] Eliquis , 5 Mg Oral Twice A Day Active 09/30/2018 [facility] Lactulose 20 Gm/30 Ml Solution, 30 Ml Oral Daily Active 09/30/2018 [facility] Docusate Sodium (Colace) 100 Mg Cap, 100 Mg Oral Daily Active Jose 08/31/2018 [facility] Dicyclomine Hcl 20 Mg Tablet, 20 Mg Oral Four Times Daily Active 07/20/2018 [facility] Metoclopramide Hcl 10 Mg Tablet, 10 Mg Oral Before Meals And At Bedtime Active Basilio 06/02/2018 [facility] Metoclopramide Hcl 10 Mg Tablet Before Meals And At Bedtime Active Basilio 06/02/2018 [facility] Eliquis , 5 Mg Twice A Day Active 06/01/2018 [facility] Bisacodyl (Dulcolax) 5 Mg Tablet.dr, 5 Mg Oral Daily Active 04/25/2018 [facility] Lubiprostone (Amitiza) 24 Mcg Capsule, 24 Mcg Oral Twice A Day Active 04/25/2018 [facility] Lubiprostone (Amitiza) 24 Mcg Capsule, 24 Mcg Oral Twice A Day as needed for Diarrhea Active 04/19/2018 [facility] Cyclobenzaprine Hcl (Flexeril) 5 Mg Tablet, 1 Tab Oral Twice A Day as needed for Pain Active 03/03/2018 [facility] Hydrocodone Bit/Acetaminophen ([place] 5-325 Tablet) 1 Each Tablet, 1 Each Oral Every 4 Hours as needed for Pain Active 03/03/2018 [facility] Tramadol Hcl (Ultram 50MG*) 50 Mg Tab, 50 Mg Oral Every 6 Hours as needed for Pain Active 03/03/2018 [facility] Warfarin Sodium 3 Mg Tablet, 5 Mg Oral Daily Active 03/03/2018 [facility] Warfarin Sodium 3 Mg Tablet, 3 Mg Oral Active 11/13/2017 [facility] Warfarin Sodium 2.5 Mg Tablet, 2.5 Mg Oral Daily Active 11/13/2017 [facility] Ciprofloxacin Hcl (Cipro) 500 Mg Tablet, 500 Mg Oral Every 12 Hours Active 07/09/2017 [facility] Levofloxacin (Levaquin) 500 Mg Tablet, 500 Mg Oral Daily Active 08/24/2016 [facility] Metronidazole (Flagyl) 250 Mg Tablet, 250 Mg Oral Three Times A Day Active 08/24/2016 [facility] Pantoprazole Sodium (Protonix) 40 Mg Tablet.dr, 40 Mg Oral Daily Active 08/24/2016 [facility] Atorvastatin Calcium 10 Mg Tablet Today At 9:00PM Active [facility] Clopidogrel Bisulfate (Clopidogrel) 75 Mg Tablet Daily Active [facility] Cyclobenzaprine Hcl (Flexeril) 5 Mg Tablet Three Times A Day as needed for Pain Active [facility] Furosemide 40 Mg Tablet Daily Active [facility] Metoclopramide Hcl (Reglan) 10 Mg Tablet Daily Active [facility] Metoprolol Tartrate 25 Mg Tablet Twice A Day Active [facility] Oxycodone Hcl/Acetaminophen (Percocet 10-325 Mg Tablet) 1 Each Tablet Every 4 Hours as needed for Pain Active [facility] Pantoprazole Sodium (Protonix) 40 Mg Tablet. Daily Active [facility] Baclofen 10 Mg Tablet Three Times A Day Active [facility] Clonazepam 0.5 Mg Tablet Daily Active [facility] Eliquis Twice A Day Active [facility] Lactulose 20 Gm/30 Ml Solution Daily Active [facility] Allergies, Adverse Reactions, Alerts Substance Category Reaction Severity Reaction type Status Date Reported Comments Source Sulfa (Sulfonamide Antibiotics) NAUSEA Intermediate Allergy to Substance Active 04/07/2018 [facility] Immunizations No Data Provided for This Section Results Order Name Results Value Reference Range Date Interpretation Comments Source Blood leukocytes automated count (number/volume) 11.19 4.8 - 10.8 09/30/2018 [facility] Blood erythrocytes automated count (number/volume) 4.76 4.3 - 5.7 09/30/2018 [facility] Blood hemoglobin measurement (moles/volume) 14.7 14.0 - 18.0 09/30/2018 [facility] Automated blood hematocrit (volume fraction) 42.5 38.2 - 49.6 09/30/2018 [facility] Automated erythrocyte mean corpuscular volume 89.3 81 - 99 09/30/2018 [facility] Automated erythrocyte mean corpuscular hemoglobin (mass per erythrocyte) 30.9 28 - 32 09/30/2018 [facility] Automated erythrocyte mean corpuscular hemoglobin concentration measurement (mass/volume) 34.6 31 - 35 09/30/2018 [facility] RDW BldCo-Rto 16.0 11.7 - 14.4 09/30/2018 [facility] Automated blood platelet count (count/volume) 257 140 - 360 09/30/2018 [facility] Automated blood segmented neutrophil count as percentage of total leukocytes 73.5 38.7 - 80.0 09/30/2018 [facility] Automated blood lymphocyte count as percentage ot total leukocytes 15.7 18.0 - 39.1 09/30/2018 [facility] Automated blood monocyte count as percentage of total leukocytes 9.0 4.4 - 11.3 09/30/2018 [facility] Automated blood eosinophil count as percentage of total leukocytes 0.1 0.0 - 6.0 09/30/2018 [facility] Automated blood basophil count as percentage of total leukocytes 0.1 0.0 - 1.0 09/30/2018 [facility] IM GRANULOCYTES % 1.6 0.0 - 1.0 09/30/2018 [facility] Automated blood neutrophil count 8.2 2.1 - 6.9 09/30/2018 [facility] Blood lymphocytes count (number/volume) 1.8 1.0 - 3.2 09/30/2018 [facility] Blood monocytes automated count (number/volume) 1.0 0.2 - 0.8 09/30/2018 [facility] Automated blood eosinophil count 0.0 0.0 - 0.4 09/30/2018 [facility] Automated blood basophil count (count/volume) 0.0 0.0 - 0.1 09/30/2018 [facility] Absolute Immature Granulocyte (auto 0.18 0 - 0.1 09/30/2018 [facility] Prothrombin time (PT) in platelet poor plasma by coagulation assay 12.3 11.9 - 14.5 09/30/2018 [facility] INR in Platelet poor plasma by Coagulation assay 0.87 09/30/2018 [facility] Activated partial thromboplastin time (aPTT) in platelet poor plasma bycoagulation assay 25.0 23.8 - 35.5 09/30/2018 [facility] Fibrin D-dimer DDU measurement in platelet poor plasma (mass/volume) 0.68 0.00 - 0.45 09/30/2018 [facility] BNP Bld-mCnc 63.5 0 - 100 09/30/2018 [facility] Serum or plasma sodium measurement (moles/volume) 140 136 - 145 09/30/2018 [facility] Serum or plasma potassium measurement (moles/volume) 4.0 3.5 - 5.1 09/30/2018 [facility] Serum or plasma chloride measurement (moles/volume) 110 98 - 107 09/30/2018 [facility] Serum or plasma carbon dioxide, total measurement (moles/volume) 18 22 - 29 09/30/2018 [facility] Serum or plasma anion gap 16.0 8 - 16 09/30/2018 [facility] Serum or plasma urea nitrogen measurement (mass/volume) 26 7 - 26 09/30/2018 [facility] Serum or plasma creatinine measurement (mass/volume) 1.42 0.72 - 1.25 09/30/2018 [facility] Serum or plasma urea nitrogen/creatinine mass ratio 18 6 - 25 09/30/2018 [facility] Estimated glomerular filtration rate (GFR) determination 49 60 09/30/2018 [facility] Glucose measurement 108 74 - 118 09/30/2018 [facility] Serum or plasma calcium measurement (mass/volume) 10.0 8.4 - 10.2 09/30/2018 [facility] Serum or plasma total bilirubin measurement (mass/volume) 0.5 0.2 - 1.2 09/30/2018 [facility] Aspartate Amino Transf (AST/SGOT) 13 5 - 34 09/30/2018 [facility] Serum or plasma alanine aminotransferase measurement (enzymatic activity/volume) 15 0 - 55 09/30/2018 [facility] Serum or plasma protein measurement (mass/volume) 8.3 6.5 - 8.1 09/30/2018 [facility] Serum or plasma albumin measurement (mass/volume) 4.1 3.5 - 5.0 09/30/2018 [facility] Plasma globulin measurement (mass/volume) 4.2 2.3 - 3.5 09/30/2018 [facility] Serum or plasma albumin/globulin mass ratio 1.0 0.8 - 2.0 09/30/2018 [facility] Serum or plasma alkaline phosphatase measurement (enzymatic activity/volume) 101 40 - 150 09/30/2018 [facility] Serum or plasma creatine kinase measurement (enzymatic activity/volume) 35 30 - 200 09/30/2018 [facility] Serum or plasma creatine kinase MB measurement (mass/volume) 0.90 0 - 5.0 09/30/2018 [facility] Troponin I measurement by highly sensitive enzyme immunoassay 0.006 0 - 0.300 09/30/2018 [facility] Blood leukocytes automated count (number/volume) 6.86 4.8 - 10.8 07/20/2018 [facility] Blood erythrocytes automated count (number/volume) 4.38 4.3 - 5.7 07/20/2018 [facility] Blood hemoglobin measurement (moles/volume) 13.4 14.0 - 18.0 07/20/2018 [facility] Automated blood hematocrit (volume fraction) 39.9 38.2 - 49.6 07/20/2018 [facility] Automated erythrocyte mean corpuscular volume 91.1 81 - 99 07/20/2018 [facility] Automated erythrocyte mean corpuscular hemoglobin (mass per erythrocyte) 30.6 28 - 32 07/20/2018 [facility] Automated erythrocyte mean corpuscular hemoglobin concentration measurement (mass/volume) 33.6 31 - 35 07/20/2018 [facility] RDW BldCo-Rto 16.1 11.7 - 14.4 07/20/2018 [facility] Automated blood platelet count (count/volume) 217 140 - 360 07/20/2018 [facility] Automated blood segmented neutrophil count as percentage of total leukocytes 73.0 38.7 - 80.0 07/20/2018 [facility] Automated blood lymphocyte count as percentage ot total leukocytes 16.2 18.0 - 39.1 07/20/2018 [facility] Automated blood monocyte count as percentage of total leukocytes 8.7 4.4 - 11.3 07/20/2018 [facility] Automated blood eosinophil count as percentage of total leukocytes 0.6 0.0 - 6.0 07/20/2018 [facility] Automated blood basophil count as percentage of total leukocytes 0.3 0.0 - 1.0 07/20/2018 [facility] IM GRANULOCYTES % 1.2 0.0 - 1.0 07/20/2018 [facility] Automated blood neutrophil count 5.0 2.1 - 6.9 07/20/2018 [facility] Blood lymphocytes count (number/volume) 1.1 1.0 - 3.2 07/20/2018 [facility] Blood monocytes automated count (number/volume) 0.6 0.2 - 0.8 07/20/2018 [facility] Automated blood eosinophil count 0.0 0.0 - 0.4 07/20/2018 [facility] Automated blood basophil count (count/volume) 0.0 0.0 - 0.1 07/20/2018 [facility] Absolute Immature Granulocyte (auto 0.08 0 - 0.1 07/20/2018 [facility] Serum or plasma sodium measurement (moles/volume) 134 136 - 145 07/20/2018 [facility] Serum or plasma potassium measurement (moles/volume) 4.1 3.5 - 5.1 07/20/2018 [facility] Serum or plasma chloride measurement (moles/volume) 105 98 - 107 07/20/2018 [facility] Serum or plasma carbon dioxide, total measurement (moles/volume) 19 22 - 29 07/20/2018 [facility] Serum or plasma anion gap 14.1 8 - 16 07/20/2018 [facility] Serum or plasma urea nitrogen measurement (mass/volume) 21 7 - 26 07/20/2018 [facility] Serum or plasma creatinine measurement (mass/volume) 1.14 0.72 - 1.25 07/20/2018 [facility] Serum or plasma urea nitrogen/creatinine mass ratio 18 6 - 25 07/20/2018 [facility] Estimated glomerular filtration rate (GFR) determination > 60 60 07/20/2018 [facility] Glucose measurement 132 74 - 118 07/20/2018 [facility] Serum or plasma calcium measurement (mass/volume) 9.2 8.4 - 10.2 07/20/2018 [facility] Serum or plasma total bilirubin measurement (mass/volume) 0.4 0.2 - 1.2 07/20/2018 [facility] Aspartate Amino Transf (AST/SGOT) 11 5 - 34 07/20/2018 [facility] Serum or plasma alanine aminotransferase measurement (enzymatic activity/volume) 10 0 - 55 07/20/2018 [facility] Serum or plasma protein measurement (mass/volume) 7.5 6.5 - 8.1 07/20/2018 [facility] Serum or plasma albumin measurement (mass/volume) 3.8 3.5 - 5.0 07/20/2018 [facility] Plasma globulin measurement (mass/volume) 3.7 2.3 - 3.5 07/20/2018 [facility] Serum or plasma albumin/globulin mass ratio 1.0 0.8 - 2.0 07/20/2018 [facility] Serum or plasma alkaline phosphatase measurement (enzymatic activity/volume) 94 40 - 150 07/20/2018 [facility] Serum or plasma creatine kinase measurement (enzymatic activity/volume) 31 30 - 200 07/20/2018 [facility] Serum or plasma creatine kinase MB measurement (mass/volume) 1.10 0 - 5.0 07/20/2018 [facility] Troponin I measurement by highly sensitive enzyme immunoassay 0.022 0 - 0.300 07/20/2018 [facility] Prothrombin time (PT) in platelet poor plasma by coagulation assay 13.0 11.9 - 14.5 07/10/2018 [facility] INR in Platelet poor plasma by Coagulation assay 0.90 07/10/2018 [facility] Activated partial thromboplastin time (aPTT) in platelet poor plasma bycoagulation assay 25.8 23.8 - 35.5 07/10/2018 [facility] Serum or plasma magnesium measurement (mass/volume) 1.9 1.3 - 2.1 06/02/2018 [facility] Serum or plasma triglyceride measurement (mass/volume) 105 0 - 149 06/02/2018 [facility] Serum or plasma cholesterol measurement (mass/volume) 125 0 - 199 06/02/2018 [facility] Serum or plasma cholesterol in LDL measurement (mass/volume) 65 60 - 130 06/02/2018 [facility] Serum or plasma cholesterol in HDL measurement (mass/volume) 39 40 - 60 06/02/2018 [facility] Serum or plasma total cholesterol/cholesterol in HDL mass ratio 3.2 3.9 - 4.7 06/02/2018 [facility] Serum or plasma cholesterol measurement (mass/volume) 125 0 - 199 06/02/2018 [facility] Serum or plasma cholesterol in LDL measurement (mass/volume) 65 60 - 130 06/02/2018 [facility] Serum or plasma cholesterol in HDL measurement (mass/volume) 39 40 - 60 06/02/2018 [facility] Serum or plasma total cholesterol/cholesterol in HDL mass ratio 3.2 3.9 - 4.7 06/02/2018 [facility] Serum or plasma lipase measurement (enzymatic activity/volume) 5 8 - 78 06/01/2018 [facility] Serum or plasma lipase measurement (enzymatic activity/volume) 5 8 - 78 06/01/2018 [facility] Urine color determination YELLOW YELLOW 04/02/2018 [facility] Urine clarity CLEAR CLEAR 04/02/2018 [facility] Specific gravity of Urine by Test strip 1.010 1.010 - 1.025 04/02/2018 [facility] Urine pH measurement by automated test strip 6 5 - 7 04/02/2018 [facility] Urine leukocyte esterase detection by dipstick NEGATIVE NEGATIVE 04/02/2018 [facility] Urine nitrite detection NEGATIVE NEGATIVE 04/02/2018 [facility] Urine protein measurement by test strip (mass/volume) NEGATIVE NEGATIVE 04/02/2018 [facility] Urine glucose detection NEGATIVE NEGATIVE 04/02/2018 [facility] Urine ketones detection by automated test strip NEGATIVE NEGATIVE 04/02/2018 [facility] Urine urobilinogen measurement by test strip (mass/volume) 0.2 0.2 - 1 04/02/2018 [facility] Urine total bilirubin measurement (mass/volume) NEGATIVE NEGATIVE 04/02/2018 [facility] Urine erythrocytes detection NEGATIVE NEGATIVE 04/02/2018 [facility] Automated urine sediment leukocyte count by microscopy (number/high power field) 0-5 0 - 5 04/02/2018 [facility] Erythrocytes detection in urine sediment by light microscopy 0-5 0 - 5 04/02/2018 [facility] Bacteria detection in urine sediment by light microscopy NONE NONE 04/02/2018 [facility] Epithelial cells detection in urine sediment by light microscopy RARE NONE 04/02/2018 [facility] Serum or plasma amylase measurement (enzymatic activity/volume) 41 25 - 125 04/02/2018 [facility] Erythrocytes detection in urine sediment by light microscopy 0-5 0 - 5 04/02/2018 [facility] Bacteria detection in urine sediment by light microscopy NONE NONE 04/02/2018 [facility] Epithelial cells detection in urine sediment by light microscopy RARE NONE 04/02/2018 [facility] Serum or plasma amylase measurement (enzymatic activity/volume) 41 25 - 125 04/02/2018 [facility] Automated fine granular casts count in urine sediment by microscopy lowpower field (number/area) 1-5 0 03/15/2018 [facility] Mucus detection in urine sediment by light microscopy FEW RARE 03/15/2018 [facility] Automated fine granular casts count in urine sediment by microscopy lowpower field (number/area) 1-5 0 03/15/2018 [facility] Mucus detection in urine sediment by light microscopy FEW RARE 03/15/2018 [facility] Arterial blood pH measurement 7.47 7.31 - 7.41 03/02/2018 [facility] pCO2 BldA 29 41 - 51 03/02/2018 [facility] pCO2 BldA 58 80 - 105 03/02/2018 [facility] Arterial blood bicarbonate measurement (moles/volume) 21 23 - 28 03/02/2018 [facility] Arterial blood base excess by calculation -2.0 -2 - 3 - 2 03/02/2018 [facility] Arterial blood oxygen saturation measurement 92.0 95 - 98 03/02/2018 [facility] FiO2 21 03/02/2018 [facility] Arterial blood bicarbonate measurement (moles/volume) 21 23 - 28 03/02/2018 [facility] Arterial blood base excess by calculation -2.0 -2 - 3 - 2 03/02/2018 [facility] Arterial blood oxygen saturation measurement 92.0 95 - 98 03/02/2018 [facility] FiO2 21 03/02/2018 [facility] Fibrin D-dimer DDU measurement in platelet poor plasma (mass/volume) 0.48 0.00 - 0.45 03/02/2018 [facility] BNP Bld-mCnc 97.8 0 - 100 03/02/2018 [facility] Serum or plasma thyrotropin measurement by detection limit <=0.005 miu/l (units/volume) 6.577 0.350 - 4.940 11/02/2017 [facility] Serum or plasma conjugated bilirubin measurement (mass/volume) 0.2 0.0 - 0.5 10/02/2017 [facility] Pathology Reports No Data Provided for This Section Diagnostic Reports No Data Provided for This Section Consultation Notes No Data Provided for This Section Discharge Summaries No Data Provided for This Section History and Physicals No Data Provided for This Section Vital Signs No Data Provided for This Section Encounters Location Location Details Encounter Type Encounter Number Reason For Visit Attending Provider ADM Date DC Date Status Source Registered Clinic [id number] MEGAN TELLES MD 09/28/2017 [facility] Discharged Inpatient [id number] MOODY LANE MD 09/30/2017 10/04/2017 [facility] Discharged Inpatient [id number] LASHA ROQUE MD 10/08/2017 10/09/2017 [facility] Departed Emergency Room [id number] EZEQUIEL CHANEY MD 11/02/2017 11/03/2017 [facility] Discharged Inpatient [id number] SHYLA GUAN MD 11/09/2017 11/13/2017 [facility] Discharged Inpatient [id number] MONIQUE THOMPSON MD 11/22/2017 11/28/2017 [facility] Departed Emergency Room [id number] ROMAN BROOKE MD 02/12/2018 02/13/2018 [facility] Discharged Inpatient (obs) [id number] RED SKINNER MD 03/02/2018 03/04/2018 [facility] Departed Emergency Room [id number] JANNETTE CARUSO MD 03/15/2018 03/15/2018 [facility] Departed Emergency Room [id number] JANNETTE CARUSO MD 04/02/2018 04/02/2018 [facility] Departed Emergency Room [id number] DALE ALVARADO MD 04/07/2018 04/07/2018 [facility] Discharged Inpatient (obs) [id number] LOI KELLY MD 04/25/2018 04/26/2018 [facility] Discharged Inpatient (obs) [id number] LASHA ROQUE MD 06/01/2018 06/02/2018 [facility] Departed Emergency Room [id number] YVETTE HERMAN MD 07/10/2018 07/10/2018 [facility] Departed Emergency Room [id number] DORY CLOUD MD 07/20/2018 07/21/2018 [facility] Departed Emergency Room [id number] DORY CLOUD MD 08/31/2018 08/31/2018 [facility] Departed Emergency Room [id number] DORY CLOUD MD 09/30/2018 09/30/2018 [facility] Departed Emergency Room [id number] KARI DICKINSON MD 11/19/2018 11/19/2018 [facility] Departed Emergency Room [id number] NAHED CARPENTER MD 11/20/2018 11/20/2018 [facility] Departed Emergency Room [id number] DALE ALVARADO MD 12/05/2018 12/05/2018 [facility] Procedures Procedure Code Date Perfomer Comments Source Computed tomography of chest with contrast [id number] 07/20/[address] [facility] [address] angiography of chest [id number] 06/01/2018 [facility] Computed tomography angiography of abdomen and pelvis without then withcontrast [id number] 06/01/2018 [facility] EGD BIOPSY SINGLE/MULTIPLE [id number] 04/25/2018 [facility] DIAGNOSTIC COLONOSCOPY [id number] 04/25/2018 [facility] CT of abdomen and pelvis without contrast [id number] 03/15/2018 [facility] X-ray of chest, two views [id number] 03/15/2018 [facility] Computed tomography of abdomen and pelvis with contrast [id number] 02/12/2018 [facility] TRANSFUSE NONAUT FROZEN PLASMA IN PERIPH VEIN, PERC [id number] 11/22/2017 [facility] Magnetic resonance imaging of thoracic spine without contrast [id number] 11/22/2017 [facility] US abdomen complete [id number] 10/03/2017 [facility] Assessment and Plan No Data Provided for This Section Plan of Care Plan of Care Date Source Discharge Date 12/05/18 8:10pm Disposition HOME, SELF-CARE Condition at Discharge Stable Instructions/Education Provided Shingles Prescriptions See Medication Section Referrals DEVENDRA SHELTON M.D. Order Date: [facility] Address: [place] [address] 12/05/2018 [facility] Discharge Date 09/30/18 10:32pm Disposition HOME, SELF-CARE Condition at Discharge Stable Instructions/Education Provided Chest Pain - Chest Wall Prescriptions See Medication Section Referrals MEGAN TELLES MD Address: [address] [address] Additional Instructions/Education follow-up with dr telles as scheduled 09/30/2018 [facility] Discharge Date 07/21/18 1:00am Disposition HOME, SELF-CARE Condition at Discharge Stable Instructions/Education Provided Chest Pain - Chest Wall Forms Provided Work/School Excuse Prescriptions See Medication Section Referrals Zaynab Ford MD Additional Instructions/Education 1. Your chest pain is not cardiac in origin, please see your well testing operator 07/21/2018 [facility] Social History Social History Date Source Social History Problem Response Recorded Date/Time Onset Date Status Hx Psychiatric Problems No 11/09/2017 10:00pm Not Applicable Not Applicable Hx Eating Disorder No 11/09/2017 10:00pm Not Applicable Not Applicable Hx Substance Use Disorder No 11/09/2017 10:00pm Not Applicable Not Applicable Hx Depression No 11/09/2017 10:00pm Not Applicable Not Applicable Hx Alcohol Use No 11/09/2017 10:00pm Not Applicable Not Applicable Hx Substance Use Treatment No 11/09/2017 10:00pm Not Applicable Not Applicable Hx Physical Abuse No 11/09/2017 10:00pm Not Applicable Not Applicable Smoking Status Start Date Stop Date Never Smoker 12/05/2018 [facility] Family History No Data Provided for This Section Advance Directives Order Name Results Value Date Source Advance Directives Advance Directives Directive Response Recorded Date/Time Does the patient have an advance directive? No 06/01/18 4:43pm If yes, is advance directive on file with [facility]? No 11/19/18 9:54am If not on file with [facility] will patient provide a copy? No 11/19/18 9:54am Do you have a Directive to Physician? No 12/05/18 6:37pm Do you have a Medical Power of Pre Sales Network Engineer? No 12/05/18 6:37pm Do you have an out of hospital Do Not Resuscitate Order? No 12/05/18 6:37pm Do you have any special needs we should be aware of? No 12/05/18 6:37pm Do you have a support person here with you today? No 12/05/18 6:37pm Did patient receive Notice of Privacy Practices? Yes 12/05/18 6:37pm Did patient receive patient rights and responsibilities? Yes 12/05/18 6:37pm 12/05/2018 [facility] Advance Directives Advance Directives Directive Response Recorded Date/Time Does the patient have an advance directive? No 06/01/18 4:43pm Do you have a Directive to Physician? No 09/30/18 8:18pm Do you have a Medical Power of Pre Sales Network Engineer? No 09/30/18 8:18pm Do you have an out of hospital Do Not Resuscitate Order? No 09/30/18 8:18pm Do you have any special needs we should be aware of? No 09/30/18 8:18pm Do you have a support person here with you today? Yes 09/30/18 8:18pm Did patient receive Notice of Privacy Practices? Yes 09/30/18 8:18pm Did patient receive patient rights and responsibilities? Yes 09/30/18 8:18pm 09/30/2018 [facility] Advance Directives Advance Directives Directive Response Recorded Date/Time Does the patient have an advance directive? No 06/01/18 4:43pm Do you have a Directive to Physician? No 07/20/18 10:27pm Do you have a Medical Power of Pre Sales Network Engineer? No 07/20/18 10:27pm Do you have an out of hospital Do Not Resuscitate Order? No 07/20/18 10:27pm Do you have any special needs we should be aware of? No 07/20/18 10:27pm Do you have a support person here with you today? No 07/20/18 10:27pm Did patient receive Notice of Privacy Practices? No 07/20/18 10:27pm Did patient receive patient rights and responsibilities? No 07/20/18 10:27pm 07/21/2018 [facility] Functional Status No Data Provided for This Section
--- OUTSIDE RECORDS SUMMARY | 2019-01-22 03:57 | XMS REPORT | Summary of Care ---
Author Author [facility] - Health Organization [facility] - Health Address Unknown Phone Unavailable Care Team Providers Care Clinical Account Executive Name Role Phone Manuelito Ford MD PCP Reason for Referral * MRI/CAT Scan (STAT) Referred By Contact Referred To Contact Status Reason Specialty Diagnoses / Procedures Thelma Covington, JONES [address] [phone] New Request Diagnostic Diagnoses Radiology Generalized abdominal pain P rocedures CT ABDOMEN PELVIS W CONTRAST * Radiology Services (STAT) Referred By Contact Referred To Contact Status Reason Specialty Diagnoses / Procedures Thelma Covington DNP [address] [phone] New Request Diagnostic Diagnoses Radiology Generalized abdominal pain P rocedures Chest 1 View * MRI/CAT Scan (STAT) Referred By Contact Referred To Contact Status Reason Specialty Diagnoses / Procedures Thelma Covington DNP [address] [address] New Request Diagnostic Diagnoses Radiology Generalized abdominal pain P rocedures CT ABDOMEN PELVIS W CONTRAST * Radiology Services (STAT) Referred By Contact Referred To Contact Status Reason Specialty Diagnoses / Procedures Thelma Covington DNP [address] [address] New Request Diagnostic Diagnoses Radiology Generalized abdominal pain P rocedures Chest 1 View Reason for Visit * Reason Comments Constipation * Auth/Cert Referred By Contact Referred To Contact Status Reason Specialty Diagnoses / Procedures [facility] Emergency Dept [address] [place] [id number] Emergency Medicine Encounter Details Care Team Description Date Type Department Marichuy Rueda, DO [address] [address] [place], [place] [address] Thelma Covington, DNP [address] [place] [address] [place] [address] [phone] Generalized abdominal pain (Primary Dx); Diverticulosis of large intestine without hemorrhage 01/07/2019 Emergency [facility] [address] [place] [address] Allergies Comments Active Allergy Reactions Severity Noted Date Sulfa (Sulfonamide Nausea and/or 07/30/2006 Antibiotics) Vomiting documented as of this encounter (statuses as of 01/07/2019) Medications End Date Status Medication Sig Dispensed Refills Start Date Active LOTREL ORAL None Entered 0 Active atorvastatin 40 mg tablet Take 40 mg by 0 mouth at bedtime. Active clopidogrel 75 mg tablet Take 75 mg by 0 mouth daily. Active Pantoprazole (PROTONIX) Take 40 mg by 0 40 mg delayed-release mouth daily. suspension Active metoprolol succinate 25 Take 25 mg by 0 mg CSpX mouth 2 (two) times daily. Active furosemide (LASIX) 40 mg Take 40 mg by 0 tablet mouth daily. Active dicyclomine 20 mg tablet Take 20 mg by 0 mouth 4 (four) times daily. Active dicyclomine (BENTYL) 20 Take 1 tablet 25 tablet 0 01/07/201 mg tabletIndications: by mouth 4 9 Generalized abdominal (four) times pain, Diverticulosis of daily. large intestine without hemorrhage Active Polyethylene Glycol 3350 Take 1 Packet 20 Packet 0 (MIRALAX) 17 gram by mouth 9 powderIndications: daily. Generalized abdominal pain, Diverticulosis of large intestine without hemorrhage documented as of this encounter (statuses as of 01/07/2019) Active Problems No known active problemsdocumented as of this encounter (statuses as of 01/07/2019) Social History Date Tobacco Use Types Packs/Day Years Used Never Assessed Sex Assigned at Date Recorded Not on file Industry Job Start Date Occupation Not on file Not on file Not on file Travel End Travel History Travel Start No recent travel history available. documented as of this encounter Last Filed Vital Signs Reading Time Taken Comments Vital Sign 157/94 01/07/2019 12:02 PM CDT Blood Pressure 91 01/07/2019 12:02 PM CDT Pulse 36.7 C (98 F) 01/07/2019 12:02 PM CDT Temperature 20 01/07/2019 12:02 PM CDT Respiratory Rate 92% 01/07/2019 12:02 PM CDT Oxygen Saturation - - Inhaled Oxygen Concentration 108.9 kg (240 lb) 01/07/2019 12:02 PM CDT Weight 198.1 cm (6' 6") 01/07/2019 12:02 PM CDT Height 27.73 01/07/2019 12:02 PM CDT Body Mass Index documented in this encounter Discharge Instructions * Attachments The following attachments cannot be sent through Care Everywhere.* Digestive System,Anatomy of the (Moroccan) * Diverticulosis (Moroccan) * Abdominal Pain, Adult (Moroccan) documented in this encounter Plan of Treatment Health Maintenance Due Date Last Done Comments HEPATITIS C (HCV) SCREEN 1945 DTaP,Tdap,and Td Vaccines 1965 (1 - Tdap) COLONOSCOPY 02/09/1996 Zoster Recombinant 02/09/1996 Vaccine (SHINGRIX) (1 of 2) Medicare Wellness Visit 2011 PNEUMOCOCCAL VACCINES 65+ 2011 (1 of 2 - PCV13) INFLUENZA VACCINE (#1) 2019 documented as of this encounter Procedures Comments Procedure Name Priority Date/Time Associated Diagnosis URINALYSIS STAT 01/07/2019 Generalized abdominal 2:[address] ABDOMEN PELVIS W STAT 01/07/2019 Generalized abdominal CONTRAST 1:31 PM CDT pain XR CHEST 1 VW STAT 01/07/2019 Generalized abdominal 1:21 PM CDT pain CBC WITH DIFFERENTIAL STAT 01/07/2019 Generalized abdominal 12:25 PM CDT pain ACTIVATED PARTIAL STAT 01/07/2019 Generalized abdominal THRMPLAS KEM 12:25 PM CDT pain PROTHROMBIN TIME / INR STAT 01/07/2019 Generalized abdominal 12:25 PM CDT pain CBC WITH DIFF Routine 01/07/2019 Generalized abdominal 12:25 PM CDT pain BASIC METABOLIC PANEL STAT 01/07/2019 Generalized abdominal (NA, K, CL, CO2, GLUCOSE, 12:25 PM CDT pain BUN, CREATININE, CA) HEPATIC FUNCTION PANEL STAT 01/07/2019 Generalized abdominal (14028) (ALB,T.PRO,BILI 12:25 PM CDT pain T,BU/BC,ALT,AST,ALK PHOS) TROPONIN I STAT 01/07/2019 Generalized abdominal 12:25 PM CDT pain LIPASE STAT 01/07/2019 Generalized abdominal 12:25 PM CDT pain EKG-12 LEAD STAT 01/07/2019 12:17 PM CDT documented in this encounter Results * Urinalysis (01/07/2019 2:47 PM CDT) APPEARANCE Clear Clear [facility] COLOR Genesis (A) Yellow [facility] PH 6.0 4.8 - 8.0 [facility] SP GRAVITY 1.024 1.003 - 1.030 [facility] GLU U QUAL Normal Normal [facility] BLOOD [facility] Negative [facility] KETONES Negative Negative [facility] PROTEIN Negative Negative [facility] UROBILIN Normal Normal [facility] BILIRUBIN Negative Negative [facility] NITRITE Positive (A) Negative [facility] LEUK LING Negative Negative [facility] RBC/HPF 2 0 - 3 HPF [facility] WBC/HPF <1 0 - 5 HPF [facility] BACTERIA Negative Negative [facility] SQ EPITH <1 <=2 HPF [facility] Specimen Urine - URINE, CLEAN CATCH Performing Organization Address City/State/Zipcode Phone Number [facility] CLIA: [id number], [address] [place], [place] [id number] [facility] * CT ABDOMEN PELVIS W CONTRAST (01/07/2019 1:31 PM CDT) Specimen Impressions Performed At 1.No small bowel obstruction. PACS/VR/DOSE 2. Urinary bladder wall thickening consistent with cystitis. AF: [id number] RL: 1600 Narrative Performed At CLINICAL HISTORY: PACS/VR/DOSE Abd pain, acute, generalized r/o obstruction Ordering Physician:THELMA GO COMPARISON: none CT done according to ALARA. TECHNIQUE: CT scan of the abdomen and pelvis performed. Contiguous axial CT images were obtained after administration of intravenous contrast. CT done according to ALARA. FINDINGS: Lung bases are clear. There is coronary artery calcification. Liver is unremarkable. The gallbladder has been removed. There is no biliary dilatation. There is no inflammation around the pancreas. Spleen is normal in size. There is no adrenal nodule. The kidneys demonstrate symmetric nephrograms. There is no hydronephrosis. There are bilateral renal cysts measuring up to 4 cm on the left. Moderate to severe vascular calcification of the abdominal aorta and branch vessels present. There is no retroperitoneal or mesenteric adenopathy. There is no bowel obstruction or acute inflammation. Extensive diverticulosis presence without evidence of diverticulitis. The appendix is normal. There is urinary bladder wall thickening measuring 0.8 cm. There is no destructive osseous lesion. There has been prior vertebral plasty at multiple levels. Right screw fixation of the SI joint. Procedure Note [facility]iant Results Inft User - 01/07/2019 2:21 PM CDT CLINICAL HISTORY: Abd pain, acute, generalized r/o obstruction Ordering Physician: THELMA GO COMPARISON: none CT done according to ALARA. TECHNIQUE: CT scan of the abdomen and pelvis performed. Contiguous axial CT images were obtained after administration of intravenous contrast. CT done according to ALARA. FINDINGS: Lung bases are clear. There is coronary artery calcification. Liver is unremarkable. The gallbladder has been removed. There is no biliary dilatation. There is no inflammation around the pancreas. Spleen is normal in size. There is no adrenal nodule. The kidneys demonstrate symmetric nephrograms. There is no hydronephrosis. There are bilateral renal cysts measuring up to 4 cm on the left. Moderate to severe vascular calcification of the abdominal aorta and branch vessels present. There is no retroperitoneal or mesenteric adenopathy. There is no bowel obstruction or acute inflammation. Extensive diverticulosis presence without evidence of diverticulitis. The appendix is normal. There is urinary bladder wall thickening measuring 0.8 cm. There is no destructive osseous lesion. There has been prior vertebral plasty at multiple levels. Right screw fixation of the SI joint. IMPRESSION 1. No small bowel obstruction. 2. Urinary bladder wall thickening consistent with cystitis. AFC: [id number] RL: 1600 Performing Organization Address [facility] Phone Number PACS/VR/DOSE * Chest 1 View (01/07/2019 1:21 PM CDT) Specimen Impressions Performed At 1.No acute process. PACS/VR/DOSE AFC: [id number] RL: 1600 Narrative Performed At HISTORY:abdominal pain PACS/VR/DOSE Ordering Physician:THELMA GO COMPARISON:None. FINDINGS: Single view of the chest demonstrates cardiomediastinal silhouette to be unremarkable.The lungs are clear.No acute osseous abnormality is seen. There has been a median sternotomy. Procedure Note [facility], Radiant Results Inft User - 01/07/2019 2:22 PM CDT HISTORY: abdominal pain Ordering Physician: THELMA GO COMPARISON: None. FINDINGS: Single view of the chest demonstrates cardiomediastinal silhouette to be unremarkable. The lungs are clear. No acute osseous abnormality is seen. There has been a median sternotomy. IMPRESSION 1. No acute process. AFC: [id number] RL: 1600 Performing Organization Address [facility] Phone Number PACS/VR/DOSE * CBC WITH DIFFERENTIAL (01/07/2019 12:25 PM CDT) WBC 5.67 4.20 - 10.70 [facility] RBC 4.39 4.26 - 5.52 10*6/L [facility] HGB 13.4 12.2 - 16.4 g/dL [facility] HCT 39.9 38.4 - 49.3 % [facility] MCV 90.9 81.7 - 95.6 fL [facility] MCH 30.5 26.1 - 32.7 pg [facility] MCHC 33.6 31.2 - 35.0 g/dL [facility] RDW-SD 50.6 38.5 - 51.6 fL [facility] RDW-CV 15.5 (H) 12.1 - 15.4 % [facility] PLT 172 150 - 328 10*3/L [facility] MPV 10.7 9.8 - 13.0 fL [facility] NRBC/100 WBC 0.0 0.0 - 10.0 /100 WBCs [facility] NRBC x10^3 <0.01 10*3/L [facility] GRAN MAT (NEUT) 74.0 % [facility] % [facility] IMM GRAN % 0.90 % [facility] LYMPH % 15.5 % [facility] MONO % 8.5 % [facility] EOS % 0.7 % [facility] BASO % 0.4 % [facility] GRAN MAT 4.20 1.99 - 6.95 10*3/uL [facility] x10^3(ANC) [facility] IMM GRAN x10^3 0.05 0.00 - 0.06 10*3/uL [facility] LYMPH x10^3 0.88 (L) 1.09 - 3.23 10*3/uL [facility] MONO x10^3 0.48 0.36 - 1.02 10*3/uL [facility] EOS x10^3 0.04 (L) 0.06 - 0.53 10*3/uL [facility] BASO x10^3 <0.03 0.01 - 0.09 10*3/uL [facility] Specimen Blood - VENOUS Performing Organization Address City/State/Zipcode Phone Number [facility] CLIA: [id number], [address] [place] [address] [facility] * Prothrombin Time (PT) / INR (01/07/2019 12:25 PM CDT) PROTIME PATIENT 11.5 10.1 - 12.6 Seconds [facility] INR 1.0Comment: Normal INR <1.1; [facility] Warfarin Therapeutic range 2.0 [facility] to 3.0 or 2.5 to 3.5, [facility] depending upon the indications. Specimen Blood - VENOUS Performing Organization Address City/[facility]/[place] Phone Number [facility] CLIA: [id number], [address] [place] [address] [facility] * aPTT (01/07/2019 12:25 PM CDT) APTT Patient 29 26 - 36 Seconds [facility] Specimen Blood - VENOUS Performing Organization Address [facility]/[place] Phone Number [facility] CLIA: [id number], [address] [place] [address] [facility] * Troponin I (01/07/2019 12:25 PM CDT) TROPONIN I 0.002 <=0.034 ng/mL [facility] Specimen Blood - VENOUS Narrative Performed At Equal or Less than 0.034 ng/ml---Normal [facility] Note: Cardiac troponin begins to rise 3-4 hours after the onset of ischemia. [facility] Repeat in 4-6 hours if the sample was drawn within 3-4 hours of the onset of the [place] symptom and found normal. Between 0.035 and 0.120 ng/mL--- Borderline. Questionable myocardial injury or necrosis Note: Serial measurement may be necessary to confirm or exclude the diagnosis of myocardial injury or necrosis; Clinical correlation (symptoms, EKGs, imaging studies, and others) required; Repeat in 4-6 hours if clinically indicated. Equal or Higher than 0.121 ng/mL---Abnormal. Myocardial Injury or Necrosis Likely Biotin has been reported to cause a negative bias, interpret results relative to patient's use of biotin. Performing Organization Address City/[facility]/Zipcode Phone Number [facility] CLIA: [id number], [address] [place] [address] [facility] * Lipase Serum (01/07/2019 12:25 PM CDT) LIPASE 20 0 - 220 U/L [facility] Specimen Blood - VENOUS Performing Organization Address City/[facility]/Zipcode Phone Number [facility] CLIA: [id number], [address] [place] [address] [facility] * Hepatic Function Panel (ALB, T.PRO, BILI T, BU/BC, ALT, AST, ALK PHOS) (01/07/2019 12:25 PM CDT) TOTAL BILI 0.5 0.1 - 1.1 mg/dL [facility] BILI UNCON 0.5 0.1 - 1.1 mg/dL [facility] BILI CONJ 0.0 0.0 - 0.3 mg/dL [facility] T PROTEIN 7.7 6.3 - 8.2 g/dL [facility] ALBUMIN 4.2 3.5 - 5.0 g/dL [facility] ALK PHOS 98 34 - 122 U/L [facility] ALT(SGPT) 18 9 - 51 U/L [facility] AST(SGOT) 20 13 - 40 U/L [facility] Specimen Blood - VENOUS Performing Organization Address City/[facility]/Zipcode Phone Number [facility] CLIA: [id number], [address] [place], [place] [id number] [facility] * Basic Metabolic Panel (NA, K, CL, CO2, GLUCOSE, BUN, CREATININE, CA) (01/07/2019 12:25 PM CDT) NA 138 135 - 145 mmol/L [facility] K 4.1 3.5 - 5.0 mmol/L [facility] CL 102 98 - 108 mmol/L [facility] CO2 TOTAL 24 23 - 31 mmol/L [facility] AGAP 12 2 - 16 [facility] BUN 14 7 - 23 mg/dL [facility] GLUCOSE 185 (H) 70 - 110 mg/dL [facility] CREATININE 1.32 (H) 0.60 - 1.25 mg/dL [facility] CALCIUM 9.3 8.6 - 10.6 mg/dL [facility] eGFR 53.3 mL/min/1.73m2 [facility] Calculation SERVICES-CLE[facility] (Non-[facility]) eGFR 64.6 mL/min/1.73m2 [facility] Calculation SERVICES[facility] ([facility]) Specimen Blood - VENOUS Narrative [place] [facility] Glomerular Filtration Rate (GFR) and Staging of Kidney Disease* [facility] + + + + [facility] | GFR (mL/min/1.73 m2)| With Kidney Damage|Without Kidney Damage CAMPUS + + + + |>90|Stage one| Normal + + + + |60-89|Stage two| Decreased GFR + + + + |30-59|Stage three| Stage three + + + + |15-29|Stage four | Stage four + + + + |<15 (or dialysis)|Stage five | Stage five + + + + *Each stage assumes the associated GFR level has been in effect for at least three months.Stages 1 to 5, with or without kidney disease, indicate chronic kidney disease. Notes: Determination of stages one and two (with eGFR >59mL/min/1.73 m2) requires estimation of kidney damage for at least three months as defined by structural or functional abnormalities of the kidney, manifested by either: Pathological abnormalities or Markers of kidney damage (including abnormalities in the composition of the blood or urine or abnormalities in imaging tests). Performing Organization Address City/State/Zipcode Phone Number [facility] CLIA: [id number], [address] [place] [address] [facility] documented in this encounter Visit Diagnoses Diagnosis Generalized abdominal pain - Primary Abdominal pain, generalized Diverticulosis of large intestine without hemorrhage documented in this encounter Administered Medications Action Date Dose Rate Site Medication Order JUL Action 01/07/2019 4:00 PM CDT 20 mg Right Dorsogluteal-IM dicyclomine (BENTYL) injection 20 mg Given 20 mg, Intramuscular, QID, First dose on 01/07/19 at 1600, Until Discontinued, Routine Action Date Dose Rate Site Medication Order [facility] Action 01/07/2019 1:23 PM CDT 100 mL iohexol (OMNIPAQUE 350 BULK-100 mL) Given injection 100 mL 100 mL, Intravenous, ONCE, 1 dose, 01/07/19 at 1345, Routine 01/07/2019 12:26 PM CDT 1,000 mL 999 mL/hr NaCl 0.9% (NS) bolus infusion 1,000 mL New Bag at 999 mL/hr, 1,000 mL, IV Infusion, ONCE, 1 dose, 01/07/19 at 1230, MATT documented in this encounter Insurance Type Payer Benefit Subscriber ID Effective Phone Address Plan / Dates Group Medicare MEDICARE MEDICARE xxxxxxxxxx 2011-P [phone] [address] [place] [id number] [place] [id number] Medicare Supplement [facility] [id number] 2017-P [address] [employer] resent [id number] MEDICARE [place] SUPPLEMENT [place] [id number] documented as of this encounter
--- OUTSIDE RECORDS SUMMARY | 2019-01-22 03:58 | XMS REPORT | Summary of Care ---
Author Author [facility] - Health Organization [facility] - Health Address Unknown Phone Unavailable Care Team Providers Care Bobbin Presser Name Role Phone Manuelito Ford MD PCP Reason for Visit * Reason Comments Back Pain * Auth/Cert Referred By Contact Referred To Contact Status Reason Specialty Diagnoses / Procedures [facility] Emergency Dept [address] [place] [address] Emergency Medicine Encounter Details Care Team Description Date Type Department Arya Lockwood DO [address] [facility] [address] [place] [address] 01/10/2019 Emergency [facility] [address] [place] [address] Allergies Comments Active Allergy Reactions Severity Noted Date Sulfa (Sulfonamide Nausea and/or 07/30/2006 Antibiotics) Vomiting documented as of this encounter (statuses as of 01/10/2019) Medications End Date Status Medication Sig Dispensed [...] 20 Take 1 tablet 25 tablet 0 08/25/201 mg tabletIndications: by mouth 4 9 Generalized abdominal (four) times pain, Diverticulosis of daily. large intestine without hemorrhage Active Polyethylene Glycol 3350 Take 1 Packet 20 Packet 0 (MIRALAX) 17 gram by mouth 9 powderIndications: daily. Generalized abdominal pain, Diverticulosis of large intestine without hemorrhage documented as of this encounter (statuses as of 01/10/2019) Active Problems No known active problemsdocumented as of this encounter (statuses as of 01/10/2019) Social History Date Tobacco Use Types Packs/Day Years Used Never Assessed Sex Assigned at Date Recorded Not on file Industry Job Start Date Occupation Not on file Not on file Not on file Travel End Travel History Travel Start No recent travel history available. documented as of this encounter Last Filed Vital Signs Reading Time Taken Comments Vital Sign 162/106 01/10/2019 10:17 PM CDT Blood Pressure 88 01/10/2019 10:17 PM CDT Pulse 37.2 C (98.9 F) 01/10/2019 10:17 PM CDT Temperature 16 01/10/2019 10:17 PM CDT Respiratory Rate 100% 01/10/2019 10:17 PM CDT Oxygen Saturation - - Inhaled Oxygen Concentration 108.9 kg (240 lb) 01/10/2019 4:49 PM CDT Weight - - Height 27.73 01/07/2019 12:02 PM CDT Body Mass Index documented in this encounter Discharge Instructions * Instructions* Arya Lockwood DO - 01/10/2019 Return to the ER if your symptoms worsen or you have new or concerning symptoms (incontinence, loss of sensation in your genital region, fever, leg weakness or numbness) * Attachments The following attachments cannot be sent through Care Everywhere.* Back Exercises, Lumbar (Palestinian) * Back Pain (Acute or Chronic) (Palestinian) documented in this encounter Plan of Treatment Health Maintenance Due Date Last Done Comments HEPATITIS C (HCV) SCREEN 1945 DTaP,Tdap,and Td Vaccines 1965 (1 - Tdap) COLONOSCOPY 02/09/1996 Zoster Recombinant 02/09/1996 Vaccine (SHINGRIX) (1 of 2) Medicare Wellness Visit 2011 PNEUMOCOCCAL VACCINES 65+ 2011 (1 of 2 - PCV13) INFLUENZA VACCINE (#1) 2019 documented as of this encounter Results Not on filedocumented in this encounter Administered Medications Action Date Dose Rate Site Medication Order MAR Action 01/10/2019 5:48 PM CDT 10 mg Right Dorsogluteal-IM dexamethasone (DECADRON PHOSPHATE) Given injection 10 mg 10 mg, Intramuscular, ONCE, 1 dose, Tue01/10/19 at 1845, STAT 01/10/2019 5:50 PM CDT 1 mg Left Dorsogluteal-IM HYDROmorphone (DILAUDID) injection 1 mg Given 1 mg, Intramuscular, ONCE, 1 dose, Tue01/10/19 at 1845, MATT, Use approved by (Faculty): [facility] PROVIDER 01/10/2019 5:49 PM CDT 30 mg Right Dorsogluteal-IM ketorolac (TORADOL) injection 30 mg Given 30 mg, Intramuscular, ONCE, 1 dose, Tue01/10/19 at 1845, MATT, membership sales representative approving Restricted medication: ARYA LOCKWOOD documented in this encounter Insurance Type Payer Benefit Subscriber ID Effective Phone Address Plan / Dates Group Medicare MEDICARE MEDICARE xxxxxxxxxx 2011-P [phone] [address] resent [id number] [place] [id number] Medicare Supplement [facility] [id number] 2017-P [address] resent [id number] MEDICARE [place] SUPPLEMENT [place]ORALES [address] [place] [id number] documented as of this encounter
--- NOTE | 2019-01-22 04:20 | NUR ---
PT REPORTS IS SCHEDULED TO HAVE SURGERY TODAY TO "BURN THE END OF MY SCIATIC NERVE BECAUSE OF MY SCIATIC NERVE PAIN."
--- NOTE | 2019-01-22 04:45 | NUR ---
PT REPORTS ABOMINAL PAIN, ER MD NOTIFIED, NEW ORDER RECEIVED
--- NOTE | 2019-01-22 05:15 | Diagnostic Imaging Report ---
Abdomen/KUB INDICATION: ^CONSTIPATION ^[id number] ^[id number] COMPARISON: CT abdomen/pelvis 11/19/2018. FINDINGS: Medical Devices: Visualized median sternotomy wires are intact. Cholecystectomy clips in the right upper quadrant. 2 screws transfix the right SI joint and appear intact. Bowel: Bowel gas pattern is unremarkable. No dilated bowel loops or pneumatosis. No significant stool burden in the large bowel. Free air: None Abdominal calcifications: None Organomegaly: None Lung bases: Clear Bones: Diffuse demineralization. Methylmethacrylate is present from T11 to L4. Stable compression deformity of L1. IMPRESSION: No significant stool burden in the large bowel. Unremarkable bowel gas pattern. Stable medical devices as described above. Signed by: Dr. Ana Kulkarni MD on 01/22/2019 5:12 AM
--- NOTE | 2019-01-22 06:05 | NUR ---
ER MD SPEAKING TO PATIENT IN TRIAGE; PATIENT STATES, "DR. KELLY'S OFFICE WON'T EVEN GET ME IN FOR 2 MONTHS." ER MD CONSULTED DR. Rick SAINZ, SCHEDULED APPT FOR TODAY 1330 AND INFORMED PATIENT. PT STATED, "WELL FINE THEN, BUT I NEED MORE PAIN MEDICINES."
== END | disposition home or self-care (01) ==
LOC: ER 03:54
DX: R10.84 Generalized abdominal pain (principal); K59.00 Constipation, unspecified
CPT/HCPCS: 74018; 99283

== ENCOUNTER 2019-03-06 22:02 | Emergency (ER) | payer MEDICARE ==
[~2019-03-06] VITALS: Ht 198.1 cm; Wt 108.9 kg
[~2019-03-06 22:02] MED LIST changes: -ACETAMINOPHEN 325 MG TAB ONE; -ACETAMINOPHEN 325 MG TAB PO ONE
--- OUTSIDE RECORDS SUMMARY | 2019-03-06 22:06 | XMS REPORT | Summary of Care ---
Author Author [facility] - Health Organization [facility] - Health Address Unknown Phone Unavailable Care Team Providers Care Compound Mixer Name Role Phone Stepan Ford MD PCP Reason for Referral * (Routine) Referred By Contact Referred To Contact Status Reason Specialty Diagnoses / Procedures Bl[place] Maya MD [address] [place] [id number] New Request AN-PAIN MEDICINE Diagnoses Acute sciatica Somatic dysfunction of right sacroiliac joint P rocedures Discharge Follow-Up: Specialty Service AN-PAIN MEDICINE; 2 Weeks * (Routine) Referred By Contact Referred To Contact Status Reason Specialty Diagnoses / Procedures Corral, Giovanna, AIR CONDITIONING INSTALLER [address] [facility] [place] [phone] Stepan Ford MD [address] [place] [phone] New Request Diagnoses Acute sciatica Somatic dysfunction of right sacroiliac joint P rocedures Discharge Follow-up: PCP STEPAN FORD; 2 Weeks * (Routine) Referred By Contact Referred To Contact Status Reason Specialty Diagnoses / Procedures Bl[place] Maya MD [address] [facility] [address] [place] [address] New Request Diagnostic Diagnoses Radiology Chronic right-sided low back pain with right-sided sciatica P rocedures FL TIME OR (NON-REPORTABLE) * (Routine) Referred By Contact Referred To Contact Status Reason Specialty Diagnoses / Procedures Blaine Maya MD [address] [phone] New Request Diagnostic Diagnoses Radiology Chronic right-sided low back pain with right-sided sciatica P rocedures FL TIME OR (NON-REPORTABLE) * MRI/CAT Scan (STAT) Referred By Contact Referred To Contact Status Reason Specialty Diagnoses / Procedures Nikunj Almazan, DO [address] [facility] [address] [place] [address] New Request Diagnostic Diagnoses Radiology Chronic right-sided low back pain with right-sided sciatica P rocedures CT LUMBAR SPINE WO CONTRAST * MRI/CAT Scan (STAT) Referred By Contact Referred To Contact Status Reason Specialty Diagnoses / Procedures Almazan, Nikunj, [address] [facility] [address] [place] [address] New Request Diagnostic Diagnoses Radiology Chronic right-sided low back pain with right-sided sciatica P rocedures CT LUMBAR SPINE WO CONTRAST Reason for Visit * Reason Comments SCIATICA * Auth/Cert Referred By Contact Referred To Contact Status Reason Specialty Diagnoses / Procedures [facility] [address] [place] [address] Emergency Diagnoses Medicine INTRACTABLE PAIN Encounter Details Care Team Description Date Type Department Alayna Caraballo, DO [address] [phone] Erik Victoria MD [address] [place] [address] Intractable pain 01/28/2019 Emergency [facility] Health - Medicine/Surgery [facility] 4A 01/30/2019 [address] [place] [address] Allergies Comments Active Allergy Reactions Severity Noted Date Sulfa (Sulfonamide Nausea and/or 07/30/2006 Antibiotics) Vomiting documented as of this encounter (statuses as of 01/30/2019) Medications End Date Status Medication Sig Dispensed Refills Start Date Active atorvastatin 40 mg tablet Take 40 mg by 0 mouth every morning. Active clopidogrel 75 mg tablet Take 75 mg by 0 mouth daily. Active Pantoprazole (PROTONIX) Take 40 mg by 0 40 mg delayed-release mouth daily. suspension Active metoprolol succinate 25 Take 25 mg by 0 mg CSpX mouth 2 (two) times daily. Active furosemide (LASIX) 40 mg Take 40 mg by 0 tablet mouth daily. Active dicyclomine (BENTYL) 20 Take 1 tablet 25 tablet 0 01/07/201 mg tabletIndications: by mouth 4 9 Generalized abdominal (four) times pain, Diverticulosis of daily. large intestine without hemorrhage 01/28/2019 Discontinued LOTREL ORAL None Entered 0 01/28/2019 Discontinued dicyclomine 20 mg tablet Take 20 mg by 0 mouth 4 (four) times daily. 01/28/2019 Discontinued Polyethylene Glycol 3350 Take 1 Packet 20 Packet 0 (MIRALAX) 17 gram by mouth 9 powderIndications: daily. Generalized abdominal pain, Diverticulosis of large intestine without hemorrhage documented as of this encounter (statuses as of 01/30/2019) Active Problems Problem Noted Date Somatic dysfunction of right sacroiliac joint 01/30/2019 Chronic lower back pain 01/30/2019 Intractable pain 01/28/2019 documented as of this encounter (statuses as of 01/30/2019) Social History Date Tobacco Use Types Packs/Day Years Used Never Smoker Smokeless Tobacco: Never Used Financial Resource Strain Answer Date Recorded How hard is it for you to pay for the very basics Not hard at all 01/28/2019 like food, housing, medical care, and heating? Sex Assigned at Date Recorded Not on file Industry Job Start Date Occupation Not on file Not on file Not on file Travel End Travel History Travel Start No recent travel history available. documented as of this encounter Last Filed Vital Signs Reading Time Taken Comments Vital Sign 149/81 01/30/2019 12:00 PM CDT Blood Pressure 79 01/30/2019 12:00 PM CDT Pulse 36.2 C (97.2 F) 01/30/2019 12:00 PM CDT Temperature 18 01/30/2019 12:00 PM CDT Respiratory Rate 91% 01/30/2019 12:00 PM CDT Oxygen Saturation - - Inhaled Oxygen Concentration 106.8 kg (235 lb 6 oz) 01/30/2019 6:12 AM CDT Weight 198.1 cm (6' 6") 01/30/2019 6:12 AM CDT Height 27.2 01/30/2019 6:12 AM CDT Body Mass Index documented in this encounter Progress Notes * Rober Garcia PA-C - 01/29/2019 1:20 PM CDT IPS Progress Note Date of Service: 01/29/2019 13:20 Chief Complaint: Duc Odell is a 73 year old male admitted for acute on chronic back pain SUBJECTIVE: Pt seen and examined. Chart reviewed His pain and radiculopathy are a little better today per his report. Pt c/o lumbar back pain, aching/dull, intermittent, rated 6/10 today, aggravated with movement, better with rest and medications. +associated radiculopathy. 14 point ROS undertaken, unremarkable except as noted. REVIEW OF SYMPTOMS 14 Point ROS undertaken and negative except as noted: General: (-) fever, (-) chills, (-) weight loss Endo: (-) heat intolerance, (-) diabetes, (-) cold intolerance HEENT: (-) headache, (-) change in vision, (-) sore throat Neck: (+) pain, (-) difficulty swallowing, (-) mass Resp: (-) cough, (-) shortness of breath, (-) wheezing Cardio: (-) chest pain, (-) palpitations, (-) syncope GI: (-) abdominal pain, (-) vomiting, (-) diarrhea : (-) dysuria, (-) hematuria, (-) increased frequency Skin: (-) rash, (-) lesion Vasc: (-) claudication Neuro: (-) numbness, (-) weakness, (-) change in speech TRAVIS: (+) muscle pain, (-) joint pain, (+) back pain Psych: (-) anxiety, (-) depression, (-) psychiatric disorder PHYSICAL EXAM: Vitals: 01/29/19 0000 01/29/19 0400 01/29/19 0800 01/29/19 1200 BP: 118/81 128/68 (!) 128/94 100/74 Pulse: 73 57 73 84 Resp: 16 15 18 20 Temp: 36.3 C (97.3 F) 36.1 C (96.9 F) 35.9 C (96.7 F) 36.4 C (97.6 F) TempSrc: Tympanic Tympanic Tympanic Tympanic SpO2: 98% 94% 93% 100% Weight: Height: O2 Sat: SpO2 readings for the past 24 hrs: SpO2 01/28/19 1600 91 % 01/28/19 1900 91 % 01/29/19 0000 98 % 01/29/19 0400 94 % 01/29/19 0800 93 % 01/29/19 1200 100 % Intake/Output Summary (Last 24 hours) at 01/29/2019 1320 Last data filed at 01/28/2019 1900 Gross per 24 hour Intake Output 400 ml Net -400 ml General: Awake, alert and oriented; no acute distress HEENT: Normocephalic atraumatic, PERRLA with EOMI; oropharynx clear; moist mucou s membranes Neck: supple, midline trachea, no bruit Cardio: regular rate and rhythm, no murmurs, no gallops Lungs: clear to auscultation bilaterally, no crackles, no wheezes Abdomen: soft; non-tender; non-distended; normoactive bowel sounds Skin: no rashes, or lesions Muscle: Normal RUE, LUE, RLE, LLE, normal ROM. cervical & lumbar tenderness Extremities: no cyanosis, clubbing or edema, pedal pulses palpable Neuro: CN 2-12 intact, no motor or sensory deficits Lymphatics: no lymphadenopathy Psychiatry: normal affect and mood LABS/IMAGING - reviewed, pertinent results as below: Recent Results (from the past 48 hour(s)) Basic Metabolic Panel (NA, K, CL, CO2, GLUCOSE, BUN, CREATININE, CA) Collection Time: 01/28/19 8:00 AM Result Value Ref Range NA 138 135 - 145 mmol/L K 4.3 3.5 - 5.0 mmol/L CL 111 (H) 98 - 108 mmol/L CO2 TOTAL 18 (L) 23 - 31 mmol/L AGAP 9 2 - 16 BUN 16 7 - 23 mg/dL GLUCOSE 129 (H) 70 - 110 mg/dL CREATININE 1.07 0.60 - 1.25 mg/dL CALCIUM 7.5 (L) 8.6 - 10.6 mg/dL eGFR Calculation (Non-) 67.9 mL/min/1.73m2 eGFR Calculation () 82.3 mL/min/1.73m2 Hepatic Function Panel (ALB, T.PRO, BILI T, BU/BC, ALT, AST, ALK PHOS) Collection Time: 01/28/19 8:00 AM Result Value Ref Range TOTAL BILI 0.4 0.1 - 1.1 mg/dL BILI UNCON 0.3 0.1 - 1.1 mg/dL BILI CONJ 0.0 0.0 - 0.3 mg/dL T PROTEIN 6.0 (L) 6.3 - 8.2 g/dL ALBUMIN 3.0 (L) 3.5 - 5.0 g/dL ALK PHOS 88 34 - 122 U/L ALT(SGPT) 20 9 - 51 U/L AST(SGOT) 16 13 - 40 U/L Lipase Serum Collection Time: 01/28/19 8:00 AM Result Value Ref Range LIPASE 12 0 - 220 U/L Troponin I Collection Time: 01/28/19 8:00 AM Result Value Ref Range TROPONIN I 0.031 <=0.034 ng/mL aPTT Collection Time: 01/28/19 8:00 AM Result Value Ref Range APTT Patient 31 26 - 36 Seconds Prothrombin Time (PT) / INR Collection Time: 01/28/19 8:00 AM Result Value Ref Range PROTIME PATIENT 12.6 10.1 - 12.6 Seconds INR 1.1 N-TERMINAL PRO-BNP Collection Time: 01/28/19 8:00 AM Result Value Ref Range NT-proBNP 449 (H) <=125 pg/mL CBC WITH DIFFERENTIAL Collection Time: 01/28/19 8:00 AM Result Value Ref Range WBC 4.32 4.20 - 10.70 10*3/L RBC 4.29 4.26 - 5.52 10*6/L HGB 12.6 12.2 - 16.4 g/dL HCT 38.3 (L) 38.4 - 49.3 % MCV 89.3 81.7 - 95.6 fL MCH 29.4 26.1 - 32.7 pg MCHC 32.9 31.2 - 35.0 g/dL RDW-SD 49.1 38.5 - 51.6 fL RDW-CV 15.3 12.1 - 15.4 % PLT 235 150 - 328 10*3/L MPV 10.5 9.8 - 13.0 fL NRBC/100 WBC 0.0 0.0 - 10.0 /100 WBCs NRBC x10^3 <0.01 10*3/L GRAN MAT (NEUT) % 90.9 % IMM GRAN % 3.00 % LYMPH % 4.4 % MONO % 1.2 % EOS % 0.0 % BASO % 0.5 % GRAN MAT x10^3(ANC) 3.93 1.99 - 6.95 10*3/uL IMM GRAN x10^3 0.13 (H) 0.00 - 0.06 10*3/uL LYMPH x10^3 0.19 (L) 1.09 - 3.23 10*3/uL MONO x10^3 0.05 (L) 0.36 - 1.02 10*3/uL EOS x10^3 <0.03 (L) 0.06 - 0.53 10*3/uL BASO x10^3 <0.03 0.01 - 0.09 10*3/uL SANDIP CELLS 2+ (A) (none) ELLIPTO/OVAL 2+ (A) (none) PLT ESTIMATE Normal Normal Urinalysis Collection Time: 01/28/19 8:07 AM Result Value Ref Range APPEARANCE Hazy (A) Clear COLOR Yellow Yellow PH 5.0 4.8 - 8.0 SP GRAVITY 1.029 1.003 - 1.030 GLU U QUAL 50 mg/dL (A) Normal BLOOD Negative Negative KETONES 5 mg/dL (A) Negative PROTEIN 30 mg/dL (A) Negative UROBILIN Normal Normal BILIRUBIN Negative Negative NITRITE Negative Negative LEUK LING Negative Negative RBC/HPF 4 (H) 0 - 3 HPF WBC/HPF 4 0 - 5 HPF BACTERIA Few (A) Negative MUCOUS Moderate (A) Negative LPF AMORPHOUS Rare Rare HPF SQ EPITH 2 <=2 HPF HYAL CAST 1 <=2 LPF Basic Metabolic Panel (NA, K, CL, CO2, GLUCOSE, BUN, CREATININE, CA) Collection Time: 01/29/19 4:50 AM Result Value Ref Range NA 137 135 - 145 mmol/L K 5.2 (H) 3.5 - 5.0 mmol/L CL 105 98 - 108 mmol/L CO2 TOTAL 22 (L) 23 - 31 mmol/L AGAP 10 2 - 16 BUN 24 (H) 7 - 23 mg/dL GLUCOSE 111 (H) 70 - 110 mg/dL CREATININE 1.33 (H) 0.60 - 1.25 mg/dL CALCIUM 9.2 8.6 - 10.6 mg/dL eGFR Calculation (Non-) 52.9 mL/min/1.73m2 eGFR Calculation () 64.1 mL/min/1.73m2 CBC WITH DIFFERENTIAL Collection Time: 01/29/19 4:50 AM Result Value Ref Range WBC 8.91 4.20 - 10.70 10*3/L RBC 3.96 (L) 4.26 - 5.52 10*6/L HGB 12.0 (L) 12.2 - 16.4 g/dL HCT 36.7 (L) 38.4 - 49.3 % MCV 92.7 81.7 - 95.6 fL MCH 30.3 26.1 - 32.7 pg MCHC 32.7 31.2 - 35.0 g/dL RDW-SD 51.8 (H) 38.5 - 51.6 fL RDW-CV 15.2 12.1 - 15.4 % PLT 216 150 - 328 10*3/L MPV 10.4 9.8 - 13.0 fL NRBC/100 WBC 0.0 0.0 - 10.0 /100 WBCs NRBC x10^3 <0.01 10*3/L GRAN MAT (NEUT) % 84.4 % IMM GRAN % 1.80 % LYMPH % 6.1 % MONO % 7.3 % EOS % 0.0 % BASO % 0.4 % GRAN MAT x10^3(ANC) 7.52 (H) 1.99 - 6.95 10*3/uL IMM GRAN x10^3 0.16 (H) 0.00 - 0.06 10*3/uL LYMPH x10^3 0.54 (L) 1.09 - 3.23 10*3/uL MONO x10^3 0.65 0.36 - 1.02 10*3/uL EOS x10^3 <0.03 (L) 0.06 - 0.53 10*3/uL BASO x10^3 0.04 0.01 - 0.09 10*3/uL Ct Lumbar Spine Wo Contrast Result Date: 01/28/2019 No acute osseous abnormality Numerous chronic compression deformity status post vertebral augmentation are unchanged in appearance to the recent prior CT abdome n/pelvis Pseudoarticulation of the spinous processes in the mid and lower lumbar spine is noted and can be an independent source of back pain CURRENT MEDICATIONS - reviewed. Current Facility-Administered Medications Medication Dose Route Frequency Last Rate Last Dose acetaminophen (TYLENOL) tablet 650 mg 650 mg Oral Q6HPRN atorvastatin (LIPITOR) tablet 40 mg 40 mg Oral QAM 40 mg at 01/29/19 0832 [START ON 01/31/2019] clopidogrel (PLAVIX) tablet 75 mg 75 mg Oral DAILY cyclobenzaprine (FLEXERIL) tablet 10 mg 10 mg Oral TID 10 mg at 01/29/19 0832 HYDROcodone-acetaminophen (NORCO) 10-325 mg tablet 1 tablet 1 tablet Oral Q 4HPRN 1 tablet at 01/29/19 0832 HYDROmorphone (DILAUDID) injection 1 mg 1 mg Slow IV Push Q4HPRN ketorolac (TORADOL) injection 30 mg 30 mg Slow IV Push Q6H 30 mg at 01/29 1138 lidocaine (LIDODERM) 5 % (700 mg/patch) patch 1 Patch 1 Patch Topical DAILY 1 Patch at 01/29/19 0831 metoprolol succinate XL (TOPROL XL) tablet 12.5 mg 12.5 mg Oral Q24H 12.5 mg at 01/28/19 1620 ASSESSMENT/PLAN Duc Odell is a 73 year old male admitted to the hospital with: Acute on chronic back pain - Dilaudid 1mg q4h PRN pain 7-10 - Dennard 10/325mg q4h PRN pain 4-6 - Toradol 30mg q6h max doses 8 - Tylenol 650mg q6h PRN pain 1-3 - Lidoderm patch to lumbar spine qAM on 12h, off 12h - Planned ARUN for Tuesday with Dr. Maya, HOLD PLAVIX - will check with Dr Isaac wu Will check on orders, ie: consent, NPO, etc. Myofascial muscle spasms - Flexeril 10mg TID Patient will require monitoring while utilizing narcotic medications. Plan of care discussed with patient and nurse Rober Garcia PA-C [phone] Associated attestation - Lewis Patel MD - 01/29/2019 8:05 PM CDT I reviewed the note and agree with the assessment and plan. * Giovanna Corral FNP - 01/29/2019 12:12 PM CDT CLS Progress Note Date of Service: 01/29/2019 12:13 Chief Complaint: Lower back pain SUBJECTIVE: Reports pain is better today No numbness/weakness or tinliging to BLE PHYSICAL EXAM: Vitals: 01/28/19 1900 01/29/19 0000 01/29/19 0400 01/29/19 0800 BP: 111/80 118/81 128/68 (!) 128/94 Pulse: 85 73 57 73 Resp: 18 18 Temp: 36.1 C (97 F) 36.3 C (97.3 F) 36.1 C (96.9 F) 35.9 C (96.7 F) TempSrc: Tympanic Tympanic Tympanic Tympanic SpO2: 91% 98% 94% 93% Weight: Height: O2 Sat: SpO2 readings for the past 24 hrs: SpO2 01/28/19 1600 91 % 01/28/19 1900 91 % 01/29/19 0000 98 % 01/29/19 0400 94 % 01/29/19 0800 93 % Intake/Output Summary (Last 24 hours) at 01/29/2019 1213 Last data filed at 01/28/2019 1900 Gross per 24 hour Intake Output 400 ml Net -400 ml General: alert and oriented; no apparent distress HEENT: pupils equal, round; extraocular movements intact; oropharynx clear; mois t mucous membranes Lungs: clear to auscultation bilaterally, no crackles, no wheezes, cough is stro ng and effective Cardio: regular rate and rhythm, no murmurs, no gallops Abdomen: soft; non-tender; non-distended; normoactive bowel sounds Extremities: no cyanosis, clubbing or edema LABS/IMAGING - reviewed, pertinent results as below: Recent Results (from the past 48 hour(s)) Basic Metabolic Panel (NA, K, CL, CO2, GLUCOSE, BUN, CREATININE, CA) Collection Time: 01/28/19 8:00 AM Result Value Ref Range NA 138 135 - 145 mmol/L K 4.3 3.5 - 5.0 mmol/L CL 111 (H) 98 - 108 mmol/L CO2 TOTAL 18 (L) 23 - 31 mmol/L AGAP 9 2 - 16 BUN 16 7 - 23 mg/dL GLUCOSE 129 (H) 70 - 110 mg/dL CREATININE 1.07 0.60 - 1.25 mg/dL CALCIUM 7.5 (L) 8.6 - 10.6 mg/dL eGFR Calculation (Non-) 67.9 mL/min/1.73m2 eGFR Calculation () 82.3 mL/min/1.73m2 Hepatic Function Panel (ALB, T.PRO, BILI T, BU/BC, ALT, AST, ALK PHOS) Collection Time: 01/28/19 8:00 AM Result Value Ref Range TOTAL BILI 0.4 0.1 - 1.1 mg/dL BILI UNCON 0.3 0.1 - 1.1 mg/dL BILI CONJ 0.0 0.0 - 0.3 mg/dL T PROTEIN 6.0 (L) 6.3 - 8.2 g/dL ALBUMIN 3.0 (L) 3.5 - 5.0 g/dL ALK PHOS 88 34 - 122 U/L ALT(SGPT) 20 9 - 51 U/L AST(SGOT) 16 13 - 40 U/L Lipase Serum Collection Time: 01/28/19 8:00 AM Result Value Ref Range LIPASE 12 0 - 220 U/L Troponin I Collection Time: 01/28/19 8:00 AM Result Value Ref Range TROPONIN I 0.031 <=0.034 ng/mL aPTT Collection Time: 01/28/19 8:00 AM Result Value Ref Range APTT Patient 31 26 - 36 Seconds Prothrombin Time (PT) / INR Collection Time: 01/28/19 8:00 AM Result Value Ref Range PROTIME PATIENT 12.6 10.1 - 12.6 Seconds INR 1.1 N-TERMINAL PRO-BNP Collection Time: 01/28/19 8:00 AM Result Value Ref Range NT-proBNP 449 (H) <=125 pg/mL CBC WITH DIFFERENTIAL Collection Time: 01/28/19 8:00 AM Result Value Ref Range WBC 4.32 4.20 - 10.70 10*3/L RBC 4.29 4.26 - 5.52 10*6/L HGB 12.6 12.2 - 16.4 g/dL HCT 38.3 (L) 38.4 - 49.3 % MCV 89.3 81.7 - 95.6 fL MCH 29.4 26.1 - 32.7 pg MCHC 32.9 31.2 - 35.0 g/dL RDW-SD 49.1 38.5 - 51.6 fL RDW-CV 15.3 12.1 - 15.4 % PLT 235 150 - 328 10*3/L MPV 10.5 9.8 - 13.0 fL NRBC/100 WBC 0.0 0.0 - 10.0 /100 WBCs NRBC x10^3 <0.01 10*3/L GRAN MAT (NEUT) % 90.9 % IMM GRAN % 3.00 % LYMPH % 4.4 % MONO % 1.2 % EOS % 0.0 % BASO % 0.5 % GRAN MAT x10^3(ANC) 3.93 1.99 - 6.95 10*3/uL IMM GRAN x10^3 0.13 (H) 0.00 - 0.06 10*3/uL LYMPH x10^3 0.19 (L) 1.09 - 3.23 10*3/uL MONO x10^3 0.05 (L) 0.36 - 1.02 10*3/uL EOS x10^3 <0.03 (L) 0.06 - 0.53 10*3/uL BASO x10^3 <0.03 0.01 - 0.09 10*3/uL SANDIP CELLS 2+ (A) (none) ELLIPTO/OVAL 2+ (A) (none) PLT ESTIMATE Normal Normal Urinalysis Collection Time: 01/28/19 8:07 AM Result Value Ref Range APPEARANCE Hazy (A) Clear COLOR Yellow Yellow PH 5.0 4.8 - 8.0 SP GRAVITY 1.029 1.003 - 1.030 GLU U QUAL 50 mg/dL (A) Normal BLOOD Negative Negative KETONES 5 mg/dL (A) Negative PROTEIN 30 mg/dL (A) Negative UROBILIN Normal Normal BILIRUBIN Negative Negative NITRITE Negative Negative LEUK LING Negative Negative RBC/HPF 4 (H) 0 - 3 HPF WBC/HPF 4 0 - 5 HPF BACTERIA Few (A) Negative MUCOUS Moderate (A) Negative LPF AMORPHOUS Rare Rare HPF SQ EPITH 2 <=2 HPF HYAL CAST 1 <=2 LPF Basic Metabolic Panel (NA, K, CL, CO2, GLUCOSE, BUN, CREATININE, CA) Collection Time: 01/29/19 4:50 AM Result Value Ref Range NA 137 135 - 145 mmol/L K 5.2 (H) 3.5 - 5.0 mmol/L CL 105 98 - 108 mmol/L CO2 TOTAL 22 (L) 23 - 31 mmol/L AGAP 10 2 - 16 BUN 24 (H) 7 - 23 mg/dL GLUCOSE 111 (H) 70 - 110 mg/dL CREATININE 1.33 (H) 0.60 - 1.25 mg/dL CALCIUM 9.2 8.6 - 10.6 mg/dL eGFR Calculation (Non-) 52.9 mL/min/1.73m2 eGFR Calculation () 64.1 mL/min/1.73m2 CBC WITH DIFFERENTIAL Collection Time: 01/29/19 4:50 AM Result Value Ref Range WBC 8.91 4.20 - 10.70 10*3/L RBC 3.96 (L) 4.26 - 5.52 10*6/L HGB 12.0 (L) 12.2 - 16.4 g/dL HCT 36.7 (L) 38.4 - 49.3 % MCV 92.7 81.7 - 95.6 fL MCH 30.3 26.1 - 32.7 pg MCHC 32.7 31.2 - 35.0 g/dL RDW-SD 51.8 (H) 38.5 - 51.6 fL RDW-CV 15.2 12.1 - 15.4 % PLT 216 150 - 328 10*3/L MPV 10.4 9.8 - 13.0 fL NRBC/100 WBC 0.0 0.0 - 10.0 /100 WBCs NRBC x10^3 <0.01 10*3/L GRAN MAT (NEUT) % 84.4 % IMM GRAN % 1.80 % LYMPH % 6.1 % MONO % 7.3 % EOS % 0.0 % BASO % 0.4 % GRAN MAT x10^3(ANC) 7.52 (H) 1.99 - 6.95 10*3/uL IMM GRAN x10^3 0.16 (H) 0.00 - 0.06 10*3/uL LYMPH x10^3 0.54 (L) 1.09 - 3.23 10*3/uL MONO x10^3 0.65 0.36 - 1.02 10*3/uL EOS x10^3 <0.03 (L) 0.06 - 0.53 10*3/uL BASO x10^3 0.04 0.01 - 0.09 10*3/uL Ct Lumbar Spine Wo Contrast Result Date: 01/28/2019 No acute osseous abnormality Numerous chronic compression deformity status post vertebral augmentation are unchanged in appearance to the recent prior CT abdome n/pelvis Pseudoarticulation of the spinous processes in the mid and lower lumbar spine is noted and can be an independent source of back pain CURRENT MEDICATIONS - reviewed. Current Facility-Administered Medications Medication Dose Route Frequency Last Rate Last Dose acetaminophen (TYLENOL) tablet 650 mg 650 mg Oral Q6HPRN atorvastatin (LIPITOR) tablet 40 mg 40 mg Oral QAM 40 mg at 01/29/19 0832 [START ON 01/31/2019] clopidogrel (PLAVIX) tablet 75 mg 75 mg Oral DAILY cyclobenzaprine (FLEXERIL) tablet 10 mg 10 mg Oral TID 10 mg at 01/29/19 0832 HYDROcodone-acetaminophen (NORCO) 10-325 mg tablet 1 tablet 1 tablet Oral Q 4HPRN 1 tablet at 01/29/19 0832 HYDROmorphone (DILAUDID) injection 1 mg 1 mg Slow IV Push Q4HPRN ketorolac (TORADOL) injection 30 mg 30 mg Slow IV Push Q6H 30 mg at 01/29 1138 lidocaine (LIDODERM) 5 % (700 mg/patch) patch 1 Patch 1 Patch Topical DAILY 1 Patch at 01/29/19 0831 metoprolol succinate XL (TOPROL XL) tablet 12.5 mg 12.5 mg Oral Q24H 12.5 mg at 01/28/19 1620 ASSESSMENT/PLAN Duc Odell is a 73 year old male admitted to the hospital with: Intractable back pain - improving 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 HTN Diverticulosis PLAN: ARUN tomorrow CT lumbar spine reviewed Pain control Pain specialist consult Symptomatic treatment for now Resume home medication PT/OT DVT prophylaxis Giovanna Corral, AIR CONDITIONING INSTALLER [phone] Associated attestation - Erik Victoria MD - 01/29/2019 3:46 PM CDT I personally examined the patient on 01/29/2019 and agree with Giovanna Corral NP's note as written . I actively participated in the decision-making process. * Arnol Marshall RN - 01/28/2019 11:37 AM CDT Care Management Social Functional Assessment Patient Name: Duc Odell Age: [age] year old Sex: male Q Previous admit date: N/A Current diagnosis and co-morbidities: INTRACTABLE PAIN Readmission Questions: Was patient discharged from any acute care hospital within the last 30 days: No Social Functional Assessment: Primary language spoken/preferred: Cameroonian Mental Status: Alert & Oriented to Person,Place & Time Information given by: Self Patient's support system: Other Name and number of support system: SHILPA SERRANO [phone], Yakov Odell So n(unable to get ahold of) sisters live in [place] Primary Supervisor [employer]: Self MPOA: No(interested in getting one) Living Arrangement: Apartment w/ elevator access Address of living arrangement : [address] [place] [address] [place] [id number] [place] Persons living in home: Same as support system Barriers to returning home: None Baseline functional status- ambulation: Independent Functional status-baseline personal care: Independent Baseline functional status- driving: Independent Baseline functional status- grocery shopping: Independent Functional status-baseline housekeeping: Independent Functional status-baseline meal prep: Independent Current functional status same as prior: No Current functional status- ambulation: Independent Current functional status- personal care: Independent Current functional status- driving: Requires minimal to moderate assistance Current functional status- grocery shopping: Requires minimal to moderate assist ance Current functional status-house keeping: Requires minimal to moderate assistance Current functional status- meal preparation: Requires minimal to moderate assist ance Do you have a PCP?: Yes Name of PCP: STEPAN FORD Home Health Care Agency: No Provider Services: No DME Company: No Equipment: Rollator;Grab bars(bp cuff, scale) Hemodialysis: No Community resources utilized: SSA/SSI/Medicaid Funding Resources: Medicare A & B;Supplement/Secondary Prescription coverage plan: Medicare Part D Pharmacy where meds are filled: Other Other pharmacy: [address], [place] - [address] [facility] [address] Anticipated services prior to disharge: Consult;Continue Medical Eval;OR;Lab Елена ues;Reassess prior to discharge Expected mode of discharge transportation: Personal vehicle;Same as support syst em Additional info required for discharge planning: Pending medical evaluation Recommended discharge plan: Home SFA Complete: Social Functional Assessment complete: Yes Alcohol Use Screening (AUDIT-C) How often do you have a drink containing alcohol?: Monthly or less SCORE: 1 How many drinks containing alcohol do you have on a typical day when you are dri nking?: 1 or 2 drinks How often do you have six or more drinks on one occasion?: Never Total Score (AUDIT-C): 1 Role of Care Management explained. ERVIN Mccabe, RN Cook [email or web address] [facility] O:[phone] F:[phone] documented in this encounter Plan of Treatment Order Schedule Name Type Priority Associated Diagnoses STAT for 1 Occurrences starting 01/30/2019 until 01/30/2019 BASIC METABOLIC PANEL LAB STAT (NA, K, CL, CO2, GLUCOSE, BUN, CREATININE, CA) Health Maintenance Due Date Last Done Comments HEPATITIS C (HCV) SCREEN 1945 DTaP,Tdap,and Td Vaccines 1965 (1 - Tdap) COLONOSCOPY 02/09/1996 Zoster Recombinant 02/09/1996 Vaccine (SHINGRIX) (1 of 2) Medicare Wellness Visit 2011 PNEUMOCOCCAL VACCINES 65+ 2011 (1 of 2 - PCV13) INFLUENZA VACCINE (#1) 2019 documented as of this encounter Implants Device Identifier Shelf Expiration Date Model / Serial / Lot Implanted Type Area Manufactur er Screw SCREW documented as of this encounter Procedures Comments Procedure Name Priority Date/Time Associated Diagnosis FL TIME OR Routine 01/30/2019 Chronic right-sided low (NON-REPORTABLE) 8:47 AM CDT back pain with right-sided sciatica CBC WITH DIFFERENTIAL Routine 01/29/2019 4:50 AM CDT CBC WITH DIFF Routine 01/29/2019 4:50 AM CDT BASIC METABOLIC PANEL Routine 01/29/2019 (NA, K, CL, CO2, GLUCOSE, 4:50 AM CDT BUN, CREATININE, CA) CT LUMBAR SPINE WO STAT 01/28/2019 Chronic right-sided low CONTRAST 8:41 AM CDT back pain with right-sided sciatica EXTRA TUBE URINE CULTURE Routine 01/28/2019 8:07 AM CDT URINALYSIS STAT 01/28/2019 Chronic right-sided low 8:07 AM CDT back pain with right-sided sciatica CBC WITH DIFFERENTIAL STAT 01/28/2019 Chronic right-sided low 8:00 AM CDT back pain with right-sided sciatica N-TERMINAL PRO-BNP STAT 01/28/2019 Chronic right-sided low 8:00 AM CDT back pain with right-sided sciatica ACTIVATED PARTIAL STAT 01/28/2019 Chronic right-sided low THRMPLAS KEM 8:00 AM CDT back pain with right-sided sciatica PROTHROMBIN TIME / INR STAT 01/28/2019 Chronic right-sided low 8:00 AM CDT back pain with right-sided sciatica CBC WITH DIFF Routine 01/28/2019 Chronic right-sided low 8:00 AM CDT back pain with right-sided sciatica BASIC METABOLIC PANEL STAT 01/28/2019 Chronic right-sided low (NA, K, CL, CO2, GLUCOSE, 8:00 AM CDT back pain with BUN, CREATININE, CA) right-sided sciatica HEPATIC FUNCTION PANEL STAT 01/28/2019 Chronic right-sided low (27164) (ALB,T.PRO,BILI 8:00 AM CDT back pain with T,BU/BC,ALT,AST,ALK PHOS) right-sided sciatica TROPONIN I STAT 01/28/2019 Chronic right-sided low 8:00 AM CDT back pain with right-sided sciatica LIPASE STAT 01/28/2019 Chronic right-sided low 8:00 AM CDT back pain with right-sided sciatica EKG-12 LEAD Routine 01/28/2019 7:50 AM CDT EKG-12 LEAD STAT 01/28/2019 7:45 AM CDT documented in this encounter Results * FL TIME OR (NON-REPORTABLE) (01/30/2019 8:47 AM CDT) Specimen Narrative Performed At These images do not require a Radiology diagnostic report. PACS Performing Organization Address City/State/Zipcode Phone Number PACS * CBC WITH DIFFERENTIAL (01/29/2019 4:50 AM CDT) WBC 8.91 4.20 - 10.70 [facility] 10*3/L [facility] RBC 3.96 (L) 4.26 - 5.52 10*6/L [facility] HGB 12.0 (L) 12.2 - 16.4 g/dL [facility] HCT 36.7 (L) 38.4 - 49.3 % [facility] MCV 92.7 81.7 - 95.[address] [facility] MCH 30.3 26.1 - 32.[address] [facility] MCHC 32.7 31.2 - 35.0 g/dL [facility] RDW-SD 51.8 (H) 38.5 - 51.[address] [facility] RDW-CV 15.2 12.1 - 15.4 % [facility] PLT 216 150 - 328 10*3/L [facility] MPV 10.4 9.8 - 13.[address] [facility] NRBC/100 WBC 0.0 0.0 - 10.0 /[address] [facility] NRBC x10^3 <0.01 10*3/L [facility] GRAN MAT (NEUT) 84.4 % [facility] % [facility] IMM GRAN % 1.80 % [facility] LYMPH % 6.1 % [facility] MONO % 7.3 % [facility] EOS % 0.0 % [facility] BASO % 0.4 % [facility] GRAN MAT 7.52 (H) 1.99 - 6.95 10*3/uL [facility] x10^3(ANC) [facility] IMM GRAN x10^3 0.16 (H) 0.00 - 0.06 10*3/uL [facility] LYMPH x10^3 0.54 (L) 1.09 - 3.23 10*3/uL [facility] MONO x10^3 0.65 0.36 - 1.02 10*3/uL [facility] EOS x10^3 <0.03 (L) 0.06 - 0.53 10*3/uL [facility] BASO x10^3 0.04 0.01 - 0.09 10*3/uL [facility] Specimen Blood - ARM, RIGHT Performing Organization Address City/State/Zipcode Phone Number [facility] CLIA: [id number], [address] [place], [place] [id number] [facility] * Basic Metabolic Panel (NA, K, CL, CO2, GLUCOSE, BUN, CREATININE, CA) (01/29/2019 4:50 AM CDT) NA 137 135 - 145 mmol/L [facility] K 5.2 (H) 3.5 - 5.0 mmol/L [facility] CL 105 98 - 108 mmol/L [facility] CO2 TOTAL 22 (L) 23 - 31 mmol/L [facility] AGAP 10 2 - 16 [facility] BUN 24 (H) 7 - 23 mg/dL [facility] GLUCOSE 111 (H) 70 - 110 mg/dL [facility] CREATININE 1.33 (H) 0.60 - 1.25 mg/dL [facility] CALCIUM 9.2 8.6 - 10.6 mg/dL [facility] SERVICES-[facility] eGFR 52.9 mL/min/1.73m2 [facility] Calculation SERVICES-[facility] (Non-[facility]) eGFR 64.1 mL/min/1.73m2 [facility] Calculation [facility] ([facility]) Specimen Blood - ARM, RIGHT Narrative Performed At Association of Glomerular Filtration Rate (GFR) and Staging of Kidney Disease* [facility] + + + + SERVICES- [facility] [place] | GFR (mL/min/1.73 m2)| With Kidney Damage|Without [...] tests). Performing Organization Address City/State/Zipcode Phone Number [facility] CLIA: [id number], [address] [place] [address] SERVICES-[facility] * CT LUMBAR SPINE WO CONTRAST (01/28/2019 8:41 AM CDT) Specimen Impressions Performed At No acute osseous abnormality PACS/VR/DOSE Numerous chronic compression deformity status post vertebral augmentation are unchanged in appearance to the recent prior CT abdomen/pelvis Pseudoarticulation of the spinous processes in the mid and lower lumbar spine is noted and can be an independent source of back pain Narrative Performed At * * * * * * * * ORIGINAL REPORT * * * * * * * * PACS/VR/DOSE CT LUMBAR SPINE WO CONTRAST HISTORY: Male 73 years low back pain COMPARISON: CT abdomen/pelvis dated 01/07/2019 TECHNIQUE: Routine CT lumbar spine without contrast FINDINGS: The bones are diffusely osteopenic. Chronic compression deformities of the T11-L4 vertebral bodies status post vertebral augmentation are redemonstrated and unchanged in appearance to the prior CT abdomen/pelvis. Transsyndesmotic screws across the right SI joint are redemonstrated. The L5 vertebra is normal in height. No facet fracture or subluxation is present. Diffuse mild spondylosis and facet arthropathy is noted. Pseudoarticulation of the spinous processes in the mid and lower lumbar spine is noted. Procedure Note [facility], Radiant Results Inft User - 01/28/2019 8:51 AM CDT * * * * * * * * ORIGINAL REPORT * * * * * * * * CT LUMBAR SPINE WO CONTRAST HISTORY: Male 73 years low back pain COMPARISON: CT abdomen/pelvis dated 01/07/2019 TECHNIQUE: Routine CT lumbar spine without contrast FINDINGS: The bones are diffusely osteopenic. Chronic compression deformities of the T11-L4 vertebral bodies status post vertebral augmentation are redemonstrated and unchanged in appearance to the prior CT abdomen/pelvis. Transsyndesmotic screws across the right SI joint are redemonstrated. The L5 vertebra is normal in height. No facet fracture or subluxation is present. Diffuse mild spondylosis and facet arthropathy is noted. Pseudoarticulation of the spinous processes in the mid and lower lumbar spine is noted. IMPRESSION No acute osseous abnormality Numerous chronic compression deformity status post vertebral augmentation are unchanged in appearance to the recent prior CT abdomen/pelvis Pseudoarticulation of the spinous processes in the mid and lower lumbar spine is noted and can be an independent source of back pain Performing Organization Address City/[facility]/Zipcode Phone Number PACS/VR/DOSE * EXTRA TUBE URINE CULTURE (01/28/2019 8:07 AM CDT) Specimen Urine - URINE, CLEAN CATCH Performing Organization Address City/State/Zipcode Phone Number [facility] CLIA: [id number], [address] [place] [address] SERVICES-[facility] * Urinalysis (01/28/2019 8:07 AM CDT) APPEARANCE Hazy (A) Clear [facility] SERVICES-[facility] COLOR Yellow Yellow [facility] SERVICES-[facility] PH 5.0 4.8 - 8.0 [facility] SP GRAVITY 1.029 1.003 - 1.030 [facility] GLU U QUAL 50 mg/dL (A) Normal [facility] BLOOD Negative Negative [facility] KETONES 5 mg/dL (A) Negative [facility] PROTEIN 30 mg/dL (A) Negative [facility] UROBILIN Normal Normal [facility] BILIRUBIN Negative Negative [facility] NITRITE Negative Negative [facility] LEUK LING Negative Negative [facility] RBC/HPF 4 (H) 0 - [address] [facility] WBC/HPF 4 0 - [address] [facility] BACTERIA Few (A) Negative [facility] MUCOUS Moderate (A) Negative LPF [facility] AMORPHOUS Rare Rare HPF [facility] SQ EPITH 2 <=[address] [facility] HYAL CAST 1 <=[address] [facility] Specimen Urine - URINE, CLEAN CATCH Performing Organization Address City/State/Zipcode Phone Number [facility] CLIA: [id number], [address] [place] [address] [facility] * CBC WITH DIFFERENTIAL (01/28/2019 8:00 AM CDT) WBC 4.32 4.20 - 10.70 [facility] 10*3/L [facility] RBC 4.29 4.26 - 5.52 10*6/L [facility] HGB 12.6 12.2 - 16.4 g/dL [facility] HCT 38.3 (L) 38.4 - 49.3 % [facility] MCV 89.3 81.7 - 95.[address] [facility] MCH 29.4 26.1 - 32.[address] [facility] MCHC 32.9 31.2 - 35.0 g/dL [facility] RDW-SD 49.1 38.5 - 51.[address] [facility] RDW-CV 15.3 12.1 - 15.4 % [facility] PLT 235 150 - 328 10*3/L [facility] MPV 10.5 9.8 - 13.[address] [facility] NRBC/100 WBC 0.0 0.0 - 10.0 /[address] [facility] NRBC x10^3 <0.01 10*3/L [facility] GRAN MAT (NEUT) 90.9 % [facility] % [facility] IMM GRAN % 3.00 % [facility] LYMPH % 4.4 % [facility] MONO % 1.2 % [facility] EOS % 0.0 % [facility] BASO % 0.5 % [facility] GRAN MAT 3.93 1.99 - 6.95 10*3/uL [facility] x10^3(ANC) [facility] IMM GRAN x10^3 0.13 (H) 0.00 - 0.06 10*3/uL [facility] LYMPH x10^3 0.19 (L) 1.09 - 3.23 10*3/uL [facility] MONO x10^3 0.05 (L) 0.36 - 1.02 10*3/uL [facility] EOS x10^3 <0.03 (L) 0.06 - 0.53 10*3/uL [facility] BASO x10^3 <0.03 0.01 - 0.09 10*3/uL [facility] SANDIP CELLS 2+ (A) (none) [facility] ELLIPTO/OVAL 2+ (A) (none) [facility] PLT ESTIMATE Normal Normal [facility] Specimen Blood - ARM, LEFT Performing Organization Address City/State/Zipcode Phone Number [facility] CLIA: [id number], [address] [place], [place] [id number] [facility] * N-TERMINAL PRO-BNP (01/28/2019 8:00 AM CDT) Pathologist [facility] NT-proBNP 449 (H) <=125 pg/mL [facility] Specimen Blood - ARM, LEFT Narrative Performed At [facility] has been reported to cause a negative bias, interpret results relative to [facility] patient's use of biotin. [facility] Performing Organization Address City/State/Zipcode Phone Number [facility] CLIA: [id number], [address] [place] [address] [facility] * Prothrombin Time (PT) / INR (01/28/2019 8:00 AM CDT) Pathologist [facility] PROTIME PATIENT 12.6 10.1 - 12.6 Seconds [facility] INR 1.1Comment: Normal INR <1.1; [facility] Warfarin Therapeutic range 2.0 [facility] to 3.0 or 2.5 to 3.5, [facility] depending upon the indications. Specimen Blood - ARM, LEFT Performing Organization Address City/[facility] Phone Number [facility] CLIA: [id number], [address] [place] [address] [facility] * aPTT (01/28/2019 8:00 AM CDT) [facility] APTT Patient 31 26 - 36 Seconds [facility] Specimen Blood - ARM, LEFT Performing Organization Address [facility] Cent[facility] Phone Number [facility] CLIA: [id number], [address] [place] [address] [facility] * Troponin I (01/28/2019 8:00 AM CDT) [facility] TROPONIN I 0.031 <=0.034 ng/mL [facility] Specimen Blood - ARM, LEFT Narrative Performed At Equal or Less than 0.034 ng/ml---Normal [facility] Note: Cardiac troponin begins to rise 3-4 hours after the onset of ischemia. [facility] Repeat in 4-6 hours if the sample was drawn within 3-4 hours of the onset of the CAMPUS symptom and found normal. Between 0.035 and [...] patient's use of biotin. Performing Organization Address City/[facility] Cent[facility]ode Phone Number [facility] CLIA: [id number], [address] [place] [address] [facility] * Lipase Serum (01/28/2019 8:00 AM CDT) LIPASE 12 0 - 220 U/L [facility] Specimen Blood - ARM, LEFT Performing Organization Address [facility] Phone Number [facility] CLIA: [id number], [address] [place] [address] [facility] * Hepatic Function Panel (ALB, T.PRO, BILI T, BU/BC, ALT, AST, ALK PHOS) (01/28/2019 8:00 AM CDT) TOTAL BILI 0.4 0.1 - 1.1 mg/dL [facility] BILI UNCON 0.3 0.1 - 1.1 mg/dL [facility] BILI CONJ 0.0 0.0 - 0.3 mg/dL [facility] T PROTEIN 6.0 (L) 6.3 - 8.2 g/dL [facility] ALBUMIN 3.0 (L) 3.5 - 5.0 g/dL [facility] ALK PHOS 88 34 - 122 U/L [facility] ALT(SGPT) 20 9 - 51 U/L [facility] AST(SGOT) 16 13 - 40 U/L [facility] Specimen Blood - ARM, LEFT Performing Organization Address [facility] Centercovt Phone Number [facility] CLIA: [id number], [address] [place] [address] [facility] * Basic Metabolic Panel (NA, K, CL, CO2, GLUCOSE, BUN, CREATININE, CA) (01/28/2019 8:00 AM CDT) NA 138 135 - 145 mmol/L [facility] K 4.3 3.5 - 5.0 mmol/L [facility] CL 111 (H) 98 - 108 mmol/L [facility] CO2 TOTAL 18 (L) 23 - 31 mmol/L [facility] AGAP 9 2 - 16 [facility] BUN 16 7 - 23 mg/dL [facility] GLUCOSE 129 (H) 70 - 110 mg/dL [facility] CREATININE 1.07 0.60 - 1.25 mg/dL [facility] CALCIUM 7.5 (L) 8.6 - 10.6 mg/dL [facility] eGFR 67.9 mL/min/1.73m2 [facility] Calculation [facility] (Non-[facility]) eGFR 82.3 mL/min/1.73m2 [facility] ([facility]) Specimen Blood - ARM, LEFT Narrative Performed At Association of Glomerular Filtration Rate (GFR) and Staging of Kidney Disease* [facility] + + + + [facility] | GFR (mL/min/1.73 m2)| With [...] abnormalities in imaging tests). Performing Organization Address City/State/Zipcovt Phone Number [facility] CLIA: [id number], [address] [place] [address] [facility] documented in this encounter Visit Diagnoses Diagnosis Chronic right-sided low back pain with right-sided sciatica - Primary Acute sciatica Intractable pain Other chronic pain Somatic dysfunction of right sacroiliac joint documented in this encounter Administered Medications Action Date Dose Rate Site Medication Order MAR Action 01/30/2019 9:45 AM CDT 40 mg atorvastatin (LIPITOR) tablet 40 mg Given 40 mg, Oral, QAM, First dose on Tue01/29/19 at 0900, Until Discontinued, Routine 40 mg Given 01/29/2019 8:32 AM CDT 01/30/2019 8:05 AM CDT 4 mL Back bupivacaine (preserv free) (SENSORCAINE Given MPF) 0.25 % (2.5 mg/mL) injection PRN, Starting Tue01/30/19 at 0805, Until Discontinued, Routine, Intra-op clopidogrel (PLAVIX) tablet 75 mg 75 mg, Oral, DAILY, First dose on Tue01/31/19 at 0900, Until Discontinued, Routine 01/30/2019 9:45 AM CDT 10 mg cyclobenzaprine (FLEXERIL) tablet 10 mg Given 10 mg, Oral, TID, First dose on Tue01/28/19 at 1600, Until Discontinued, Routine 10 mg Given 01/29/2019 8:01 PM CDT 10 mg Given 01/29/2019 1:31 PM CDT 01/29/2019 8:01 PM CDT 1 tablet HYDROcodone-acetaminophen (NORCO) 10-325 Given mg tablet 1 tablet 1 tablet, Oral, Q4HPRN, Starting Tue01/28/19 at 1539, Until Discontinued, Routine, Pain (scale 4-6) 1 tablet Given 01/29/2019 8:32 AM CDT 1 tablet Given 01/28/2019 4:17 PM CDT 01/30/2019 9:18 AM CDT 1 mg HYDROmorphone (DILAUDID) injection 1 mg Given 1 mg, Slow IV Push, Q4HPRN, Starting Tue01/28/19 at 1540, Until Tue02/05/19 at 1539, Routine, Pain (scale 7-10), Use approved by (Faculty): CLC PROVIDER 01/29/2019 8:31 AM CDT 1 Patch lidocaine (LIDODERM) 5 % (700 mg/patch) Given patch 1 Patch 1 Patch, Topical, Administer over 12 Hours, DAILY, 10 doses, First dose on Tue01/29/19 at 0900, Last dose on Tue02/07/19 at 0900, Routine 01/30/2019 8:00 AM CDT 10 mL Back lidocaine 1% (PF) (XYLOCAINE) injection Given PRN, Starting Tue01/30/19 at 0800, Until Discontinued, Routine, Intra-op 01/29/2019 5:21 PM CDT 12.5 mg metoprolol succinate XL (TOPROL XL) Given tablet 12.5 mg 12.5 mg, Oral, Q24H, First dose on Tue01/28/19 at 1615, Until Discontinued 12.5 mg Given 01/28/2019 4:20 PM CDT 01/30/2019 8:04 AM CDT 4 mL Back NaCl 0.9% (NS) injection Given PRN, Starting Tue01/30/19 at 0804, Until Discontinued, Routine, Intra-op 01/30/2019 11:18 AM CDT 40 mg pantoprazole (PROTONIX) EC tablet 40 mg Given 40 mg, Oral, DAILY, First dose on Tue01/30/19 at 1045, Until Discontinued, Routine 01/30/2019 8:03 AM CDT 80 mg Back triamcinolone acetonide (KENALOG) Given injection PRN, Starting Tue01/30/19 at 0803, Until Discontinued, Routine, Intra-op Action Date Dose Rate Site Medication Order MAR Action 01/28/2019 7:01 AM CDT 1 tablet HYDROcodone-acetaminophen (NORCO 5) Given 5-325 mg tablet 1 tablet 1 tablet, Oral, ONCE, 1 dose, [place] 01/28/19 at 0800, MATT 01/28/2019 8:13 AM CDT 1 mg Left Arm HYDROmorphone (DILAUDID) injection 1 mg Given 1 mg, Slow IV Push, ONCE, 1 dose, [place] 01/28/19 at 0845, MATT, Use approved by (Faculty): Scott ARAYA 01/29/2019 11:08 PM CDT 30 mg ketorolac (TORADOL) injection 30 mg Given 30 mg, Slow IV Push, Q6H, 6 doses, First dose on 01/28/19 at 1600, Last dose on 01/29/19 at 1800, Routine, science faculty member approving Restricted medication: TUNDE BE 30 mg Given 01/29/2019 5:21 PM CDT 30 mg Given 01/29/2019 11:38 AM CDT 01/30/2019 6:42 AM CDT 1,000 mL 20 mL/hr lactated ringers IV infusion 1,000 mL New Bag at 20 mL/hr, 1,000 mL, IV Infusion, ONCE, 1 dose, [facility] 01/30/19 at 0545, Routine, [facility] Pre-op 01/28/2019 8:14 AM CDT 125 mg Left Arm methylprednisolone sod succ Given (SOLU-MEDROL) injection 125 mg 125 mg, Slow IV Push, ONCE, 1 dose, [place] 01/28/19 at 0845, STAT 01/28/2019 2:00 PM CDT 2 mg morpHINE injection 2 mg Given 2 mg, Slow IV Push, Q4HPRN, Starting [place] 01/28/19 at 1330, Until [place] 01/28/19 at 1545, Routine, Pain (scale 7-10) 01/28/2019 5:28 AM CDT 4 mg morpHINE injection 4 mg Given 4 mg, Intravenous, ONCE, 1 dose, [place] 01/28/19 at 0515, STAT 01/28/2019 8:14 AM CDT 1,000 mL 999 mL/hr Left Arm NaCl 0.9% (NS) bolus infusion 1,000 mL New Bag at 999 mL/hr, 1,000 mL, IV Infusion, ONCE, 1 dose, [place] 01/28/19 at 0745, MATT documented in this encounter Insurance Type Payer Benefit Subscriber ID Effective Phone Address Plan / Dates Group Medicare MEDICARE MEDICARE xxxxxxxxxxx 2011-P [phone] resent [id number] [place] [id number] Medicare Supplement [facility] [id number] 2017-P [address] [facility] resent [id number] MEDICARE [place] SUPPLEMENT [place] [id number] documented as of this encounter
--- OUTSIDE RECORDS SUMMARY | 2019-03-06 22:07 | XMS REPORT | Summary of Care ---
Author Author [facility] - Health Organization [facility] - Health Address Unknown Phone Unavailable Care Team Providers Care Janitorial Manager Name Role Phone Manuelito Ford MD PCP Encounter Details Care Team Description Date Type Department Doctor Unassigned, [place] [address] [place] [id number] 01/31/2019 Orders Only [facility] [address] [place] [address] Allergies Comments Active Allergy Reactions Severity Noted Date Sulfa (Sulfonamide Nausea and/or 07/30/2006 Antibiotics) Vomiting documented as of this encounter (statuses as of 01/31/2019) Medications End Date Status Medication Sig Dispensed [...] Diverticulosis of daily. large intestine without hemorrhage documented as of this encounter (statuses as of 01/31/2019) Active Problems Problem Noted Date Somatic dysfunction of right sacroiliac joint 01/30/2019 Chronic lower back pain 01/30/2019 Intractable pain 01/28/2019 documented as of this encounter (statuses as of 01/31/2019) Social History Date Tobacco Use Types Packs/Day [...] of this encounter Last Filed Vital Signs Not on filedocumented in this encounter Plan of Treatment Health [...] Comments Procedure Name Priority Date/Time Associated Diagnosis EXTERNAL PROVIDER RECORDS Routine 01/31/2019 12:01 AM CDT documented in this encounter Results Not on filedocumented in this encounter Insurance Type Payer Benefit Subscriber ID Effective Phone Address Plan / Dates Group Medicare MEDICARE MEDICARE xxxxxxxxxxx 2011-P [phone] [address] resent [id number] [place] [id number] Medicare Supplement [facility] [id number] 2017-P [address] [employer] resent [id number] [place]ICARE [place] SU[place]LE[place] [id number] documented as of this encounter
--- OUTSIDE RECORDS SUMMARY | 2019-03-06 22:07 | XMS REPORT | Summary of Care ---
Author Author [facility] - Health Organization [facility] - Health Address Unknown Phone Unavailable Care Team Providers Care Rim Technician Name Role Phone Manuelito Ford MD PCP Reason for Visit * Reason Comments Transition Of Care Encounter Details Care Team Description Date Type Department Florence Chung RN [address] [place] [id number] Transition Of Care 02/01/2019 [facility] of [facility] Allergies Comments Active Allergy Reactions Severity Noted Date Sulfa (Sulfonamide Nausea and/or 07/30/2006 Antibiotics) Vomiting documented as of this encounter (statuses as of 02/01/2019) Medications End Date Status Medication Sig Dispensed [...] as of this encounter (statuses as of 02/01/2019) Active Problems Problem Noted Date Somatic dysfunction of right sacroiliac joint 01/30/2019 Chronic lower back pain 01/30/2019 Intractable pain 01/28/2019 documented as of this encounter (statuses as of 02/01/2019) Social History Date Tobacco Use Types Packs/Day [...] Screw SCREW documented as of this encounter Results Not on filedocumented in this encounter Insurance Type Payer Benefit Subscriber ID Effective Phone Address Plan / Dates Group Medicare MEDICARE MEDICARE xxxxxxxxxxx 2011-P [phone] [address] [employer] [address] resent [id number] [place] [address] Medicare Supplement [facility] [id number] 2017-P [address] [employer] resent [id number] MEDICARE [place] SU[place]LE[place] [id number] documented as of this encounter
[2019-03-06] MEDS ORDERED: SODIUM CHLORIDE 0.9% 1000ML 1,000 ML IV SCH (22:30)
[2019-03-06] MEDS ORDERED: SODIUM CHLORIDE 0.9% 50ML 0 ML ONE (22:46)
[2019-03-06] MEDS ORDERED: IOPAMIDOL 370 MG/ML 200 ML INFUS..BTL INJ ONE (22:46)
--- NOTE | 2019-03-07 00:19 | Diagnostic Imaging Report ---
EXAM: CT Abdomen and Pelvis WITHOUT contrast INDICATION: Bilateral flank pain/epigastric pain COMPARISON: Abdominal CT 11/19/2018. TECHNIQUE: Abdomen and pelvis were scanned utilizing a multidetector helical scanner from the lung base to the pubic symphysis without administration of IV contrast. Absence of intravenous contrast decreases sensitivity for detection of focal lesions and vascular pathology. Coronal and sagittal reformations were obtained. Routine protocol was performed. IV CONTRAST: None ORAL CONTRAST: None COMPLICATIONS: None RADIATION DOSE: Total DLP: 772 mGy*cm Estimated effective dose: (DLP x 0.015 x size factor) mSv CTDIvol has been reviewed. It is below the limits set by the Radiation Protocol Committee (RPC). Dose modulation, iterative reconstruction, and/or weight based adjustment of the mA/kV was utilized to reduce the radiation dose to as low as reasonably achievable. FINDINGS: LINES and TUBES: None. LOWER THORAX: Triple vessel coronary artery calcific atherosclerosis. HEPATOBILIARY: No focal hepatic lesions. No biliary ductal dilation. GALLBLADDER: There are cholecystectomy clips. SPLEEN: No splenomegaly. PANCREAS: No focal masses or ductal dilatation. ADRENALS: No adrenal nodules KIDNEYS/URETERS: No hydronephrosis. Small simple cysts in the kidneys. No cystic or solid mass lesions. No stones. GI TRACT: No abnormal distention, wall thickening, or evidence of bowel obstruction. There are diverticula within the colon without evidence of diverticulitis. Appendix is not clearly identified. There is however no fat stranding or adenopathy in the right lower quadrant to suggest appendicitis. PELVIC ORGANS/BLADDER: Hysterectomy. No adnexal masses. Circumferential bladder wall thickening. Trace perivesicular fat stranding. LYMPH NODES: No lymphadenopathy. VESSELS: There is moderate atherosclerotic disease in the aorta and major arterial branches. PERITONEUM / RETROPERITONEUM: No free air or fluid. BONES: Screw fixation of the right sacroiliac joint. No evidence of hardware complication. Kyphoplasty material in the T12-L5 vertebral bodies with multilevel vertebral body compression fractures, stable compared to prior. Degenerative changes in spine. Low bone mineral density. SOFT TISSUES: Unremarkable. IMPRESSION: Urinary bladder findings can be seen with cystitis. Colonic diverticulosis without diverticulitis. Chronic findings as above. Signed by: Butch Zavala DO on 03/07/2019 12:16 AM
[2019-03-07] MEDS ORDERED: ACETAMINOPHEN 325 MG TAB ONE (00:54)
--- NOTE | 2019-03-07 00:56 | NUR ---
explained to patient that unless he had a ride home i was unable to give him iv pain medication. pt verbalized he would take the tylenol offered by MD. pt also requested stronger RX than the [place] 20 tabs given by . instructed pt we were unable to write a stronger medication.
[2019-03-07] MEDS ORDERED: ACETAMINOPHEN 325 MG TAB PO ONE (01:00)
[2019-03-07 03:59] VITALS: BP 133/90
== END 2019-03-07 00:56 | disposition home or self-care (01) ==
LOC: FSED 22:02
DX: R10.31 Right lower quadrant pain (principal); R10.33 Periumbilical pain; K59.00 Constipation, unspecified; K57.90 Diverticulosis of intestine, part unspecified, without perforation or abscess without bleeding; K44.9 Diaphragmatic hernia without obstruction or gangrene; N28.1 Cyst of kidney, acquired
CPT/HCPCS: 74176; 80053; 81003; 85025; 85610; 99284; Q9967

== ENCOUNTER 2019-06-21 04:44 | Emergency (ER) | payer MEDICARE ==
[~2019-06-21] VITALS: Ht 198.1 cm; Wt 108.9 kg
[2019-06-21 05:05] LABS: BASOPHILS % 0.4 % (0.0-1.0); EOSINOPHILS # (AUTO) 0.1 (0.0-0.4); EOSINOPHILS % 1.4 % (0.0-6.0); HEMATOCRIT 42.2 % (38.2-49.6); LYMPHOCYTES # (AUTO) 1.8 (1.0-3.2); LYMPHOCYTES % 22.6 % (18.0-39.1); MEAN CORPUSCULAR HEMOGLOBIN 28.9 pg (28-32); MEAN CORPUSCULAR HGB CONC 33.2 g/dL (31-35); MEAN CORPUSCULAR VOLUME 87.2 fL (81-99); MONOCYTES # (AUTO) 0.8 (0.2-0.8); MONOCYTES % 10.5 % (4.4-11.3); NEUTROPHILS # (AUTO) 5.2 (2.1-6.9); NEUTROPHILS % 64.2 % (38.7-80.0); PLATELET COUNT 241 x10e3/uL (140-360); RED BLOOD COUNT 4.84 x10e6/uL (4.3-5.7); RED CELL DISTRIBUTION WIDTH 15.6 % (11.7-14.4)
[2019-06-21 05:26] LABS: ALBUMIN/GLOBULIN RATIO 1.1 (0.8-2.0); ANION GAP 17.9 mmol/L (8-16); CALCIUM 9.6 mg/dL (8.4-10.2); CREATININE, SERUM 1.67 mg/dL (0.72-1.25); POTASSIUM 3.9 mmol/L (3.5-5.1)
[2019-06-21 05:33] LABS: CREATINE KINASE MB 1.3 ng/mL (0-5.0)
--- NOTE | 2019-06-21 05:34 | Diagnostic Imaging Report ---
EXAMINATION: CHEST SINGLE (PORTABLE) INDICATION: Chest pain COMPARISON: 09/30/2018. FINDINGS: TUBES and LINES: None. LUNGS: Lungs are well inflated. There are bibasilar atelectasis. There is no evidence of pneumonia or pulmonary edema. PLEURA: No pleural effusion or pneumothorax. HEART AND MEDIASTINUM: The cardiomediastinal silhouette is unremarkable. The thoracic aorta is tortuous and unfolded. BONES AND SOFT TISSUES: No acute osseous lesion. Median sternotomy wires. Soft tissues are unremarkable UPPER ABDOMEN: No free air under the diaphragm. IMPRESSION: No acute thoracic abnormality. Signed by: Dr. Rock Hayes M.D. on 06/21/2019 5:32 AM
== END 2019-06-21 07:13 | disposition home or self-care (01) ==
LOC: ER 04:44
DX: R07.89 Other chest pain (principal); R00.0 Tachycardia, unspecified; I11.0 Hypertensive heart disease with heart failure; I50.9 Heart failure, unspecified; K21.9 Gastro-esophageal reflux disease without esophagitis; I25.2 Old myocardial infarction; Z86.73 Personal history of transient ischemic attack (TIA), and cerebral infarction without residual deficits; M54.9 Dorsalgia, unspecified; G89.29 Other chronic pain; I25.10 Atherosclerotic heart disease of native coronary artery without angina pectoris; Z95.1 Presence of aortocoronary bypass graft; Z79.02 Long term (current) use of antithrombotics/antiplatelets
CPT/HCPCS: 36415; 71045; 80053; 82550; 82553; 84484; 85025; 93005; 99284

== ENCOUNTER 2019-08-08 15:48 | Emergency (ER) | payer MEDICARE ==
[~2019-08-08] VITALS: Ht 198.1 cm; Wt 108.9 kg
--- OUTSIDE RECORDS SUMMARY | 2019-08-08 15:53 | XMS REPORT | Summary of Care ---
Author Author [facility] - Health Organization [facility] - Health Address Unknown Phone Unavailable Care Team Providers Care Drone Pilot Name Role Phone Manuelito Ford MD PCP Reason for Visit * Reason Comments Back Pain * Auth/Cert Referred By Contact Referred To Contact Status Reason Specialty Diagnoses / Procedures [facility] Emergency Dept [address] [place] [address] Emergency Medicine Encounter Details Care Team Description Date Type Department Ovidio Vidales MD [address] [facility] [address] [place] [address] Chronic right-sided low back pain without sciatica (Primary Dx) 07/16/2019 Emergency [facility] Department [address] [place] [address] Allergies Comments Active Allergy Reactions Severity Noted Date Sulfa (Sulfonamide Nausea and/or 07/30/2006 Antibiotics) Vomiting documented as of this encounter (statuses as of 07/16/2019) Medications End Date Status Medication Sig Dispensed Refills Start Date Active atorvastatin 40 mg tablet Take 40 mg by 0 mouth every morning. Active clopidogrel 75 mg tablet Take 75 mg by 0 mouth daily. Active Pantoprazole (PROTONIX) Take 40 mg by 0 40 mg delayed-release mouth daily. suspension Active furosemide (LASIX) 40 mg Take 40 mg by 0 tablet mouth daily. Active dicyclomine (BENTYL) 20 Take 1 tablet 25 tablet 0 01/07/201 mg tabletIndications: by mouth 4 9 Generalized abdominal (four) times pain, Diverticulosis of daily. large intestine without hemorrhage Active traMADol 50 mg Take 1 tablet 15 tablet 0 tabletIndications: by mouth 9 Chronic right-sided low every 8 back pain, unspecified (eight) hours whether sciatica present as needed for Pain (scale 4-6). Active metoprolol tartrate 25 mg Take 25 mg by 0 tablet mouth 2 (two) times daily. Active HYDROcodone-acetaminophen Take 1 tablet 0 (NORCO) 10-325 mg tablet by mouth 2 (two) times daily as needed for Pain (scale 7-10). 03/29/2020 Active aspirin 81 mg chewable Take 1 tablet 30 tablet 11 tabletIndications: by mouth 9 Mesenteric artery daily. stenosis Active Polyethylene Glycol 3350 Take 1 Packet 20 Packet 0 17 gram by mouth 2 9 powderIndications: (two) times Intractable abdominal daily. pain Active metoclopramide HCl 5 mg Take 1 tablet 5 tablet 0 tabletIndications: by mouth 9 Intractable abdominal before meals. pain documented as of this encounter (statuses as of 07/16/2019) Active Problems Problem Noted Date Intractable abdominal pain 04/12/2019 Somatic dysfunction of right sacroiliac joint 01/30/2019 Chronic lower back pain 01/30/2019 Intractable pain 01/28/2019 documented as of this encounter (statuses as of 07/16/2019) Social History Date Tobacco Use Types Packs/Day [...] Signs Reading Time Taken Comments Vital Sign 129/95 07/16/2019 2:00 AM GEAR GENERATOR SET UP OPERATOR Blood Pressure 87 07/16/2019 2:00 AM GEAR GENERATOR SET UP OPERATOR Pulse 37.2 C (98.9 F) 07/16/2019 2:00 AM GEAR GENERATOR SET UP OPERATOR Temperature 17 07/16/2019 12:45 AM GEAR GENERATOR SET UP OPERATOR Respiratory Rate 95% 07/16/2019 2:00 AM GEAR GENERATOR SET UP OPERATOR Oxygen Saturation - - Inhaled Oxygen Concentration 108.9 kg (240 lb) 07/16/2019 12:45 AM GEAR GENERATOR SET UP OPERATOR Weight 198.1 cm (6' 6") 07/16/2019 12:45 AM GEAR GENERATOR SET UP OPERATOR Height 27.73 07/16/2019 12:45 AM GEAR GENERATOR SET UP OPERATOR Body Mass Index documented in this encounter Discharge Instructions * Attachments The following attachments cannot be sent through Care Everywhere.* Back Pain, Relieving (Cameroonian) documented in this encounter Plan of Treatment Health Maintenance Due Date Last Done Comments HEPATITIS C (HCV) SCREEN 1945 DTaP,Tdap,and Td Vaccines 1957 (1 - Tdap) COLONOSCOPY 02/09/1996 Zoster Recombinant [...] Comments Procedure Name Priority Date/Time Associated Diagnosis CONSENT/REFUSAL FOR Routine 07/16/2019 DIAGNOSIS AND TREATMENT 12:41 AM GEAR GENERATOR SET UP OPERATOR documented in this encounter Results Not on filedocumented in this encounter Visit Diagnoses Diagnosis Chronic right-sided low back pain without sciatica - Primary documented in this encounter Administered Medications Action Date Dose Rate Site Medication Order MAR Action 07/16/2019 1:37 AM GEAR GENERATOR SET UP OPERATOR 30 mg Left Dorsogluteal-IM ketorolac (TORADOL) injection 30 mg Given 30 mg, Intramuscular, ONCE, 1 dose, 07/16/19 at 0245, MATT, membership assistant approving Restricted medication: OVIDIO VIDALES documented in this encounter Insurance Type Payer Benefit Subscriber ID Effective Phone Address Plan / Dates Group Medicare MEDICARE MEDICARE xxxxxxxxxxx 2011-P [phone] resent [id number] [place] [id number] Medicare Supplement [facility] [id number] 2017-P [address] [employer] resent [id number] MEDICARE [place] SU[place]LE[place] [id number] documented as of this encounter
[2019-08-08] MEDS ORDERED: CEFDINIR300 MG PO (16:57)
[2019-08-08] MEDS ORDERED: PHENAZOPYRIDIN100 MG PO (16:58)
[2019-08-08 17:32] VITALS: BP 152/84
== END 2019-08-08 17:28 | disposition home or self-care (01) ==
LOC: FSED 15:48
DX: R30.0 Dysuria (principal); N30.91 Cystitis, unspecified with hematuria; I10 Essential (primary) hypertension; G20 Parkinson's disease; I25.10 Atherosclerotic heart disease of native coronary artery without angina pectoris; Z95.1 Presence of aortocoronary bypass graft
CPT/HCPCS: 87086; 99282

== ENCOUNTER 2019-08-21 14:12 | Emergency (ER) | payer MEDICARE ==
[~2019-08-21] VITALS: Ht 198.1 cm; Wt 108.9 kg
[~2019-08-21 14:12] MED LIST changes: +CEFDINIR300 MG PO; +PHENAZOPYRIDIN100 MG PO
[2019-08-21] MEDS ORDERED: SODIUM CHLORIDE 0.9% 1000ML 1,000 ML IV STA (14:41)
[2019-08-21] MEDS ORDERED: IOPAMIDOL 370 MG/ML 200 ML INFUS..BTL INJ ONE (15:24)
[2019-08-21] MEDS ORDERED: SODIUM CHLORIDE 0.9% 50ML 50 ML ONE (15:24)
[2019-08-21] MEDS ORDERED: SODIUM CHLORIDE 0.9% 1000ML 1,000 ML ONE ×2 (15:47→17:17)
--- NOTE | 2019-08-21 17:04 | Diagnostic Imaging Report ---
EXAM: CT Abdomen and Pelvis WITH intravenous contrast INDICATION: Abdominal pain COMPARISON: None. TECHNIQUE: Abdomen and pelvis were scanned utilizing a multidetector helical scanner from the lung base to the pubic symphysis after administration of IV contrast. Coronal and sagittal reformations were obtained. Routine protocol was performed. Scan was performed during portal venous phase. IV CONTRAST: 100mL of Isovue 370 ORAL CONTRAST: Water RADIATION DOSE: Total DLP: 707 mGy*cm Dose modulation, iterative reconstruction, and/or weight based adjustment of the mA/kV was utilized to reduce the radiation dose to as low as reasonably achievable. FINDINGS: LOWER THORAX: Small sliding hiatal hernia. HEPATOBILIARY: Mild hepatic steatosis. No focal liver lesion. Status post cholecystectomy. SPLEEN: No splenomegaly. PANCREAS: No mass or ductal dilation. ADRENALS: No adrenal nodules. KIDNEYS/URETERS: No renal calculi or hydronephrosis. Multiple simple bilateral renal cysts left greater than right. PELVIC ORGANS/BLADDER: Unremarkable. PERITONEUM / RETROPERITONEUM: No free air or fluid. LYMPH NODES: No lymphadenopathy. VESSELS: Atherosclerotic calcifications of the nonaneurysmal abdominal aorta and major branches. GI TRACT: Diverticulosis without CT evidence of diverticulitis. No abnormal bowel thickening. No bowel obstruction. BONES AND SOFT TISSUES: Status post right sacroiliac fixation. Multilevel thoracolumbar vertebral augmentation. No acute osseous injury. Diffuse osteopenia. IMPRESSION: No acute findings in the abdomen or pelvis. Diverticula cyst without CT evidence of diverticulitis. Mild hepatic steatosis. Signed by: Lan Corcoran MD on 08/21/2019 5:01 PM
[2019-08-21] MEDS ORDERED: ACETAMINOPHEN 325 MG TAB ONE (17:15)
[2019-08-21] MEDS ORDERED: KETOROLAC TROMETHAMINE 30 MG/ML VIAL ONE (17:16)
[2019-08-21] MEDS ORDERED: AZITHROMYCIN 250 MG TAB ONE (17:16)
[2019-08-21] MEDS ORDERED: CEFTRIAXONE SOD 1 GM/NS 50 ML 50 ML IV ONE (17:17)
[2019-08-21] MEDS ORDERED: ACETAMINOPHEN 325 MG TAB PO ONE (17:45)
[2019-08-21] MEDS ORDERED: SKELAXIN800 MG PO (17:53)
[2019-08-21] MEDS ORDERED: PREDNISONE20 MG PO (17:53)
[2019-08-21] MEDS ORDERED: CEFDINIR300 MG PO (17:53)
[2019-08-21 18:32] VITALS: BP 126/80
== END 2019-08-21 18:00 | disposition home or self-care (01) ==
LOC: FSED 14:12
DX: R10.9 Unspecified abdominal pain (principal); K57.90 Diverticulosis of intestine, part unspecified, without perforation or abscess without bleeding; E86.0 Dehydration; N39.0 Urinary tract infection, site not specified
CPT/HCPCS: 74177; 80053; 80076; 81003; 85025; 99284; J0696; J1885; J7030; Q9967

== ENCOUNTER 2019-10-17 19:49 | Emergency (ER) | payer MEDICARE ==
[~2019-10-17] VITALS: Ht 198.1 cm; Wt 108.9 kg
[~2019-10-17 19:49] MED LIST changes: +PREDNISONE20 MG PO; +SKELAXIN800 MG PO
--- OUTSIDE RECORDS SUMMARY | 2019-10-17 19:56 | XMS REPORT | Continuity of Care Document ---
Author Author [facility] t Organization [facility] Address [address] [place] [address] Phone Unavailable Care Team Providers Care Fill Manager Name Role Phone NONSTAFF PCP Unavailable HUI YANG Attphys Unavailable Thomas RASMUSSEN, Kely Attphys Jagjit LESTER Attphys Unavailable RUBEN FRAGOSO Attphys Unavailable Juliet RESTREPO, Florence Attphys Doctor Unassigned, Name No Attphys Unavailable Alayna Caraballo DO Attphys Myra Victoria MD Attphys Jorge L CLOUD Attphys Unavailable Arya Lockwood DO Attphys Gissell Rueda DO Attphys Elham Covington DNP Attphys Joni KENT Attphys Unavailable Mindy DICKINSON Attphys Unavailable Gissell HERMAN Attphys Unavailable DAHLIA ROQUEALD Attphys Unavailable Angeles CARUSO Attphys Unavailable RED SKINNRE Attphys Unavailable Cirilo BROOKE Attphys Unavailable JAY, AMAYA Attphys Unavailable BOCCARDO, SHYLA Attphys Unavailable MANEEVESE, Lyn VILLA Attphys Unavailable Gissell BARONE Attphys Unavailable Jorge L LANE Attphys Unavailable CECY CARMONA M.D. Attphys Unavailable Clarisse HUNTER Attphys Unavailable Myra Victoria MD Admphys LASHA ROQUE Admphys Unavailable RED SKINNER Admphys Unavailable JAY, AMAYA Admphys Unavailable BOCCARDO, SHYLA Admphys Unavailable Jorge L L[address] MOODY Admphys Unavailable Payers Payer Name Policy Type Policy Number Effective Date Expiration Date Jorge L arevalo [facility] [id number] 2019 00:00:00 [facility] Medicare A & B [id number] 2011 00:00:00 [facility] Problems Condition Name Condition Details Condition Category Status Onset Date Resolution Date Last Treatment Date Treating Clinician Comments Source Abdominal pain Abdominal pain Problem Active 2015-10-25 00:00:00 [facility] Urinary tract infection UTI (urinary tract infection) Problem Active 2015-10-25 00:00:00 [facility] Renal insufficiency Renal insufficiency Problem Active 2015-10-25 00:00 :00 [facility] Acute hemodialysis encounter Acute hemodialysis encounter Proble m HL7.CCDAR2 Active [facility] Arteriosclerotic cardiovascular disease (ASCVD) Arteri osclerotic cardiovascular disease (ASCVD) Problem HL7.CCDAR2 Active [facility] CAD (coronary artery disease) CAD (coronary artery disease) Prob terri HL7.CCDAR2 Active [facility] Chronic generalized abdominal pain Chronic generalized abdominal pain Problem Active [facility] Diverticulitis of large intestine Diverticulitis large intestine Pr oblem Active [facility] Chest pain Chest pain Problem Active C [facility] Poisoning by warfarin sodium Coumadin toxicity Problem Active [facility] Non-traumatic compression fracture of fifth thoracic v ertebra Non-traumatic compression fracture of T5 thoracic vertebra Problem Active [facility] Hypertensive emergency Hypertensive emergency Problem Active [facility] Allergies, Adverse Reactions, Alerts Allergy Name Allergy Type Status Severity Reaction(s) Onset Date Inacti ve Date Treating Clinician Comments Source Sulfa (Sulfonamide Antibiotics) DA Active 2019-09-20 00 :00:00 [facility] Sulfa (Sulfonamide Antibiotics) Allergy to Substance Active Moder ate NAUSEA 2019-06-21 00:00:00 [facility] Sulfa (Sulfonamide Antibiotics) DA Active 2018-11-07 00 :00:00 [facility] Sulfa (Sulfonamide Antibiotics) DA Active 2018-07-16 00 :00:00 [facility] Sulfa (Sulfonamide Antibiotics) DA Active 2018-02-25 00 :00:00 [facility] Sulfa (Sulfonamide Antibiotics) DA Active 2017-11-29 00 :00:00 [facility] Medications Ordered Medication Name Filled Medication Name Start Date Stop Da te Current Medication? Ordering Clinician Indication Dosage Frequency Signature (SIG) Comments Components Source Cefdinir (Omnicef) 300 Mg Capsule Cefdinir (Omnicef) 300 Mg Capsule 2019-08-21 00:00:00 Yes Benigno Yang 1 Every 12 Hours [facility] Metaxalone (Skelaxin) 800 Mg Tablet Metaxalone (Skelaxin) 80 0 Mg Tablet 2019-08-21 00:00:00 Yes Benigno Yang 1 Every 8 Hours as needed for Muscle Spasms [facility] Prednisone 20 Mg Tab Prednisone 20 Mg Tab 2019-08-21 00:00:00 Yes Benigno Yang 60 Daily as needed for Moderate Pain (4-6) [facility] Cefdinir (Omnicef) 300 Mg Capsule Cefdinir (Omnicef) 300 Mg Capsule 2019-08-08 00:00:00 Yes Eden Tipton Md 1 Twice A Day for In fection [facility] Phenazopyridine Hcl 100 Mg Tablet Phenazopyridine Hcl 100 Mg Tablet 2019-08-08 00:00:00 Yes Eden Tipton Md 200 Three Times A Day for Urinary Pain [facility] Cephalexin Monohydrate (Keflex) 500 Mg Capsule, 500 Mg Oral Cephalexin Monohydrate (Keflex) 500 Mg Capsule, 500 Mg Oral 2018-11-19 00:00:00 06-21 00:00:00 No Kari Dickinson Md 500 Three Times A Day [facility] Phenazopyridine Hcl (Pyridium) 100 Mg Tablet, 1 Tab Or al Phenazopyridine Hcl (Pyridium) 100 Mg Tablet, 1 Tab Oral 2018-11-19 00:00:00 2019-06-21 00:00:00 No Kari Dickinson Md 1 Three Times A Day [facility] Docusate Sodium (Colace) 100 Mg Cap, 100 Mg Oral Docus ate Sodium (Colace) 100 Mg Cap, 100 Mg Oral 2018-08-31 00:00:00 2018-09-30 00:00:00 No Dory Jin ir Do 100 Daily [facility] Metoclopramide Hcl 10 Mg Tablet, 10 Mg Oral Metoclopra mide Hcl 10 Mg Tablet, 10 Mg Oral 2018-06-02 00:00:00 2018-09-30 00:00:00 No Tammy Richmond Mobility Specialist 10 Before Meals And At Bedtime [facility] Atorvastatin Calcium 10 Mg Tablet Atorvastatin Calcium 10 Mg Tablet Yes 10 Today At 9:00PM [facility] Baclofen 10 Mg Tablet Baclofen 10 Mg Tablet Yes 10 Three Times A Day [facility] Clopidogrel Bisulfate (Clopidogrel) 75 Mg Tablet Clopi dogrel Bisulfate (Clopidogrel) 75 Mg Tablet Yes 75 Daily [facility] Cyclobenzaprine Hcl (Flexeril) 5 Mg Tablet Cyclobenzap rine Hcl (Flexeril) 5 Mg Tablet Yes 7.5 Three Times A Day as needed for Pain [facility] Furosemide 40 Mg Tablet Furosemide 40 Mg Tablet Yes 40 Daily [facility] Metoclopramide Hcl (Reglan) 10 Mg Tablet Metoclopramid e Hcl (Reglan) 10 Mg Tablet Yes 1 Daily [facility] Metoprolol Tartrate 25 Mg Tablet Metoprolol Tartrate 25 Mg Tablet Yes 12.5 Twice A Day [facility] Oxycodone Hcl/Acetaminophen (Percocet 10-325 Mg Tablet ) 1 Each Tablet Oxycodone Hcl/Acetaminophen (Percocet 10-325 Mg Tablet) 1 Each Tablet Yes 1 Every 4 Hours as needed for Pain [facility] Pantoprazole Sodium (Protonix) 40 Mg Tablet. Pantopr azole Sodium (Protonix) 40 Mg Tablet. Yes 40 Daily [facility] Clonazepam 0.5 Mg Tablet, 0.5 Mg Oral Clonazepam 0.5 Mg Tablet, 0.5 Mg Oral 2018-09-30 00:00:00 No .5 Daily [facility] Eliquis , 5 Mg Oral Eliquis , 5 Mg Oral 2018-09-30 00:00:00 No 5 Twice A Day [facility] Lactulose 20 Gm/30 Ml Solution, 30 Ml Oral Lactulose 2 0 Gm/30 Ml Solution, 30 Ml Oral 2018-09-30 00:00:00 No 30 Daily [facility] Dicyclomine Hcl 20 Mg Tablet, 20 Mg Oral Dicyclomine H cl 20 Mg Tablet, 20 Mg Oral 2018-07-20 00:00:00 No 20 Four Times Daily [facility] Eliquis , 5 Mg Eliquis , 5 Mg 2018-06-01 00:00:00 No 5 Twice A Day [facility] Bisacodyl (Dulcolax) 5 Mg Tablet., 5 Mg Oral Bisacod yl (Dulcolax) 5 Mg Tablet., 5 Mg Oral 2018-04-25 00:00:00 No 5 Sona ly [facility] Lubiprostone (Amitiza) 24 Mcg Capsule, 24 Mcg Oral Lub iprostone (Amitiza) 24 Mcg Capsule, 24 Mcg Oral 2018-04-25 00:00:00 No 24 Twi ce A Day [facility] Lubiprostone (Amitiza) 24 Mcg Capsule, 24 Mcg Oral Lub iprostone (Amitiza) 24 Mcg Capsule, 24 Mcg Oral 2018-04-19 00:00:00 No 24 Twice A Day as needed for Diarrhea [facility] Cyclobenzaprine Hcl (Flexeril) 5 Mg Tablet, 1 Tab Oral Cyclobenzaprine Hcl (Flexeril) 5 Mg Tablet, 1 Tab Oral 2018-03-03 00:00:00 No 1 Twice A Day as needed for Pain [facility] Hydrocodone Bit/Acetaminophen ([employer] 5-325 Tablet) 1 E ach Tablet, 1 Each Oral Hydrocodone Bit/Acetaminophen ([employer] 5-325 Tablet) 1 Each Tablet, 1 Each Oral 2018-03-03 00:00:00 No 1 Every 4 Hours as nee ded for Pain [facility] Tramadol Hcl (Ultram 50MG*) 50 Mg Tab, 50 Mg Oral Tram adol Hcl (Ultram 50MG*) 50 Mg Tab, 50 Mg Oral 2018-03-03 00:00:00 No 50 Every 6 Hours as needed for Pain [facility] Warfarin Sodium 3 Mg Tablet, 5 Mg Oral Warfarin Sodium 3 Mg Tabl et, 5 Mg Oral 2018-03-03 00:00:00 No 5 Daily [facility] Warfarin Sodium 3 Mg Tablet, 3 Mg Oral Warfarin Sodium 3 Mg Tabl et, 3 Mg Oral 2017-11-13 00:00:00 No 3 [facility] Warfarin Sodium 2.5 Mg Tablet, 2.5 Mg Oral Warfarin So dium 2.5 Mg Tablet, 2.5 Mg Oral 2017-11-13 00:00:00 No 2.5 Daily [facility] Ciprofloxacin Hcl (Cipro) 500 Mg Tablet, 500 Mg Oral C iprofloxacin Hcl (Cipro) 500 Mg Tablet, 500 Mg Oral 2017-07-09 00:00:00 No 500 Every 12 Hours [facility] Levofloxacin (Levaquin) 500 Mg Tablet, 500 Mg Oral Lev ofloxacin (Levaquin) 500 Mg Tablet, 500 Mg Oral 2016-08-24 00:00:00 No 500 D aily [facility] Metronidazole (Flagyl) 250 Mg Tablet, 250 Mg Oral Metr onidazole (Flagyl) 250 Mg Tablet, 250 Mg Oral 2016-08-24 00:00:00 No 250 Thre e Times A Day [facility] Pantoprazole Sodium (Protonix) 40 Mg Tablet.dr, 40 Mg Oral Pantoprazole Sodium (Protonix) 40 Mg Tablet.dr, 40 Mg Oral 2016-08-24 00:00:00 No 40 Daily [facility] Vital Signs Vital Name Observation Time Observation Value Comments Source BP Systolic 2017-08-29 11:37:00 116 mm[Hg] [facility] BP Diastolic 2017-08-29 11:37:00 79 mm[Hg] [facility] Height 2017-08-29 11:37:00 78 [in_us] [facility] Weight 2017-08-29 11:37:00 208 [lb_av] [facility] Body Mass Index Calculated 2017-08-29 11:37:00 24.04 kg/m2 [facility] Procedures Procedure Date / Time Performed Performing Clinician Sour e [QL] CBC (INCLUDES DIFF/PLT) 2017-08-17 00:00:00 [facility] [[facility]] BASIC METABOLIC PANEL W/EGFR 2017-08-17 00:00:00 [facility] [O] Xray CHEST 2 VIEWS FRONTAL AND LATERAL 2017-08-17 00:00:00 [facility] History of Hemodialysis access procedure [facility] Encounters Start Date/Time End Date/Time Encounter Type Admission Type [facility] [employer] Care Facility Care Department Encounter ID Source 2019-08-21 14:12:00 2019-08-21 18:00:00 Departed Emergency Room 1 YANG BENIGNO [facility] [id number] [facility] 2019-08-08 15:48:00 2019-08-08 17:28:00 Departed Emergency Room [facility] [id number] [facility] 2019-07-16 00:41:03 2019-07-16 02:05:00 Emergency Kely Guzman [facility] ([facility]) [id number] 2019-06-21 04:44:00 2019-06-21 07:13:00 Departed Emergency Room 1 KELY LESTER [facility] [id number] [facility] 2019-03-06 22:02:00 2019-03-07 00:56:00 Departed Emergency Room 1 RUBEN FRAGOSO [facility] [id number] [facility] 2019-02-01 00:00:00 2019-02-01 00:00:00 Transition of Care Florence Chung [id number] 2019-01-31 00:00:00 2019-01-31 00:00:00 Orders Only D tajor Unassigned, Britton [facility] [id number] 2019-01-28 04:01:42 2019-01-30 14:10:00 Emergency B Alayna burns Mohammad J [facility] ([facility]) [id number] 2019-01-22 03:54:00 2019-01-22 03:54:00 Registered Emergency Room 1 DORY CLOUD [facility] [id number] [facility] 2019-01-14 14:22:00 2019-01-14 14:22:00 Emergency E [id number] 2019-01-10 17:03:55 2019-01-10 22:25:00 Emergency Arya Lockwood [facility] ([facility]) [id number] 2019-01-07 11:57:18 2019-01-07 16:27:00 Emergency A Marichuy bautista Sal Tiffany Baxter [facility] ([facility]) [id number] 2018-12-21 09:26:00 2018-12-21 09:26:00 Registered Clinic 3 XIOMARANIDIA RAND [facility] [id number] [facility] 2018-12-05 17:36:00 2018-12-05 20:10:00 Departed Emergency Room [facility] [id number] [facility] 2018-11-20 10:50:00 2018-11-20 11:24:00 Departed Emergency Room [facility] [id number] [facility] 2018-11-19 09:04:00 2018-11-19 10:54:00 Departed Emergency Room 1 KARI DICKINSON [facility] [id number] [facility] 2018-11-13 02:03:00 2018-11-13 02:03:00 Emergency E SE SE [facility] 2018-09-30 18:57:00 2018-09-30 22:32:00 [id number] [facility] 2018-08-31 16:52:00 2018-08-31 21:09:00 Departed Emergency Room 1 [facility] [id number] [facility] 2018-07-20 19:10:00 2018-07-21 01:00:00 Departed Emergency Room 1 [facility] [id number] [facility] 2018-07-10 10:16:00 2018-07-10 14:18:00 Departed Emergency Room 1 YVETTE HERMAN [facility] [id number] [facility] 2018-06-01 14:54:00 2018-06-02 16:45:00 Discharged Inpatient (obs) 1 LASHA ROQUE [facility] [id number] [facility] 2018-04-25 13:35:00 2018-04-26 11:46:00 Discharged Inpatient (obs) [facility] [id number] [facility] 2018-04-07 10:21:00 2018-04-07 11:16:00 Departed Emergency Room [facility] [id number] [facility] 2018-04-02 17:55:00 2018-04-02 23:09:00 Departed Emergency Room 1 JANNETTE CARUSO [facility] [id number] [facility] 2018-03-15 08:13:00 2018-03-15 14:39:00 Departed Emergency Room 1 JANNETTE CARUSO [facility] [id number] [facility] 2018-03-02 23:21:00 2018-03-04 11:31:00 Discharged Inpatient (obs) 1 RED SKINNER [facility] [id number] [facility] 2018-02-12 17:22:00 2018-02-13 01:04:00 Departed Emergency Room 1 EUGENIO BROOKE [facility] [id number] [facility] 2017-11-22 00:09:00 2017-11-28 15:32:00 Discharged Inpatient 1 MONIQUE THOMPSON [facility] [id number] [facility] 2017-11-09 17:57:00 2017-11-13 15:30:00 Discharged Inpatient 1 SHYLA GUAN [facility] [id number] [facility] 2017-11-02 15:14:00 2017-11-03 00:17:00 Departed Emergency Room 1 STEVE LUCIA [facility] [id number] [facility] 2017-10-08 19:08:00 2017-10-09 15:10:00 Discharged Inpatient 1 NII BARONE [facility] [id number] [facility] 2017-09-30 10:49:00 2017-10-04 13:31:00 Discharged Inpatient [address] [facility] [id number] [facility] 2017-09-28 16:04:00 2017-09-28 16:04:00 Registered Clinic 3 RAND KENT [facility] [id number] [facility] 2017-08-29 10:00:00 2017-08-29 10:00:00 Appointment; CECY CARMONA M.D. NAHAS, CESAR, M.D. [facility] Cardiothoracic and Vascular Surgery - Dr Ronny Carmona [id number] [facility] 2017-07-09 15:20:00 2017-07-11 21:01:00 Discharged Inpatient ER MONIQUE THOMPSON [facility] [id number] [facility] 2017-06-11 12:53:00 2017-06-11 21:25:00 Departed Emergency Room ER STEVE LUCIA [facility] [id number] [facility] 2017-05-02 15:27:00 2017-05-02 15:27:00 Registered Emergency Room E Mindy HUNTERLISA [facility] [id number] [facility] 2017-04-15 01:24:00 2017-04-15 06:57:00 Departed Emergency Room ER KELY LESTER [facility] [id number] [facility] 2017-01-25 12:17:00 2017-01-25 19:49:00 Departed Emergency Room ER YVETTE HERMAN [facility] [id number] [facility] 2016-12-26 17:20:00 2016-12-26 18:55:00 Departed Emergency Room [facility] [id number] [facility] Results Test Description Test Time Test Comments Results Result Comments Source TROPONIN-I 2019-09-21 03:25:00 Test Item TROPONIN-I (test code = TROPI) <0.015 ng/mL 0-0.045 N COMMENTS TO SENIOR UI DESIGNER: COLLECT 3 HOURS AFTER PREVIOUS [id number] 00:19:00* Test Item Value Reference Range Interpretation Comments TROPONIN-I (test code = TROPI) <0.015 ng/mL 0-0.045 N COMMENTS TO SENIOR UI DESIGNER: COLLECT 3 HOURS AFTER PREVIOUS SAMPLE- CTA [id number] 19:06:00 Name: TEDDY LESTER [facility] : 1945 Age/S: 74 / M [address] [facility] Unit #: [id number] Loc: [place] [address] Phys: Pastor Hoff MD Acct: [id number] Dis Date: Status: ADM IN PHONE #: [phone] Exam Date: 09/20/2019 183 FAX #: [phone] Reason: sob EXAMS: CPT CODE: [id number] CTA CHEST 31696 EXAM: CTA of the chest with contrast; INFORMATION: Chest pain and shortness of breath; TECHNIQUE: CT dose reduction protocol; 1.25 mm cuts were obtained through the chest during intravenous infusion of contrast material; multiplanar reconstructions were obtained; PE protocol; 3-D angiographic studies were generated on an independent workstation, using volume rendering and maximum intensity projection algorithms. FINDINGS: The pulmonary arteries are densely enhancing and are without filling defects. The thoracic aorta is normal; no evidence of dissection or aneurysm. No evidence of hilar or mediastinal adenopathy; there is moderate lipomatosis of the inferior portion of the mediastinum. No effusions. Calcified plaques in the thoracic aorta and extensive calcifications of the left coronary artery. Mediastinal clips after bypass surgery; status post median sternotomy. Lung windows show no parenchymal abnormalities. Scans through the upper abdomen show a 3.5 cm left renal cyst. IMPRESSION: 1. No evidence of pulmonary embolism, aortic dissection or other acute abnormalities. 2. Left renal cyst. Location code: [facility] at 1906 Reported and signed by: Ethan Maldonado M.D. PAGE 1 Signed Report (CONTINUED) Name: CODY LESTERYCE SERGEY [facility] : 1945 Age/S: 74 / M [address] Unit #: [id number] Loc: [place] [address] Phys: Pastor Hoff MD Acct: [id number] Dis Date: Status: ADM IN PHONE #: [phone] Exam Date: 09/20/2019 183 FAX #: [phone] Reason: sob EXAMS: CPT CODE: [id number] CTA CHEST 99117 <Continued> CC: Pastor Hoff MD Technologist:Nany Edward RT(R); ANNY Kent CTDI: DLP: Trnscb Date/Time: 09/20/2019 (1905) [email or web address] Or ig Print D/T: S: 09/20/2019 (1908) PAGE 2 Signed Rep ort - XR CHEST 1 [id number] 18:09:00 FAX: Pastor Hoff MD [phone] Gepp: St: REG Name: Jorge L KAUFMANTEDDY SERGEY [facility] : [birth year] Age/S: 74/M [address] Unit #: [id number] Loc: [place] [address] Phys: Pastor Hoff MD Acct: [id number] Dis Date: Status: REG ER PHONE #: [phone] Exam Date: 09/20/2019 1710 FAX #: [phone] Reason: Shortness of Breath EXAMS: CPT CODE: [id number] XR CHEST 1 V 47797 EXAM: Chest x-ray, one view; INFORMATION: Shortness of breath, congestion; IMPRESSIO N: 1. No evidence of infiltrates, edema or other signs of active cardiopulmonary disease. 2. Change compared with a study from November 13 019; the heart is normal in size; tortuous aorta; status post median monico rnotomy. Location code: [facility] Electronicall y Signed by Elidia Maldonado on 09/20/2019 at 18 09 Reported and signed by: Ethan Maldonado M.D. CC: Pastor Hoff MD Technologist: KYRA Doan Date/Time/By: 09/20/2019 (1808) : By: MoGRW Orig Print D/ T: S: 09/20/2019 (1812) PAGE 1 Si gned Report B-TYPE NATRIURETIC [id number] 17:52:00* Test Item Value Reference Range Interpretation Comments B-TYPE NATRIURETIC PEPTIDE (test code = BNP) 83.32 pgram/mL 0-100 N [id number] 17:49:00* Test Item Value Reference Range Interpretation Comments D-DIMER (test code = DDIMER) 1508.00 ng/mLFEU 0-500 HH Results called to [id number] by V.LAB. 09/20/19 1747Critical results verified and read back by Nurse? YClinical Cut-off value for D-Dimer is 500 ng/mL FEU. Comment: The [employer] D- Dimer assay is intended for use asan aid in the diagnosis of venous thromboembolism (VTE)[deep vein thrombosis (DVT) or pulmonary embolism (PE)].The measurement of D-Dimer should not be used as an aid inthe diagnosis of VTE, in patient with: -Therapeutic dose anticoagulant therapy for >24 hours - Fibrinolytic therapy within previous 7 days -Trauma or surgery within previous 4 weeks -Disseminated malignancies -Aortic aneurysm -Sepsis, severe infections, pneumonia, severe skin infections -Liver cirrhosis - BASIC METABOLIC [id number] 17:37:00* Test Item Value Reference Range Interpretation Comments SODIUM (test code = NA) 140 mmol/L 136-145 N POTASSIUM (test code = K) 4.1 mmol/L 3.5-5.1 N CHLORIDE (test code = CL) 106.0 mmol/L 98-107 N CARBON DIOXIDE (test code = CO2) 24.0 mmol/L 21-32 N ANION GAP (test code = GAP) 14.1 10-20 N GLUCOSE (test code = GLU) 114 mg/dL 74-106 H BLOOD UREA NITROGEN (test code = BUN) 15 mg/dL 7-18 N GLOMERULAR FILTRATION RATE (test code = GFR) 54 mL/min >=60 Estimated GFR by using Modified MDRD formula.Chronic kidney disease is defined as either kidney damageor GFR <60 mL/min/1.73 m2 for >3 months. CREATININE (test code = CREAT) 1.30 mg/dL 0.7-1.3 N BUN/CREATININE RATIO (test code = BUN/CREA) 11.5 10-20 N CALCIUM (test code = CA) 9.2 mg/dL 8.5-10.1 N [id number] 17:37:00* Test Item Value Reference Range Interpretation Comments TROPONIN-I (test code = TROPI) <0.015 ng/mL 0-0.045 N BASIC METABOLIC [id number] 17:30:00* Test Item Value Reference Range Interpretation Comments SODIUM (test code = NA) 140 mmol/L 136-145 N POTASSIUM (test code = K) 4.1 mmol/L 3.5-5.1 N CHLORIDE (test code = CL) 106.0 mmol/L 98-107 N CARBON DIOXIDE (test code = CO2) mmol/L 21-32 ANION GAP (test code = GAP) 10-20 GLUCOSE (test code = GLU) mg/dL 74-106 BLOOD UREA NITROGEN (test code = BUN) mg/dL 7-18 GLOMERULAR FILTRATION RATE (test code = GFR) mL/min >=60 CREATININE (test code = CREAT) mg/dL 0.7-1.3 BUN/CREATININE RATIO (test code = BUN/CREA) 10-20 CALCIUM (test code = CA) mg/dL 8.5-10.1 [id number] 17:30:00* Test Item Value Reference Range Interpretation Comments TROPONIN-I (test code = TROPI) ng/mL 0-0.045 Coronavirus 2019 nCoV [id number] 17:22:00* Test Item Value Reference Range Interpretation Comments Coronavirus 2019 nCoV Bedside (test code = [id number]) Negative Is patient requiring admission or transfer? YIndication for rapid COVID-19 testi ng: Mod Clinical SuspicionCBC W/O DIFF 2019-09-20 17:16:00* Test Item Value Reference Range Interpretation Comments WHITE BLOOD CELL (test code = WBC) 7.3 K/mm3 4.5-12.5 N RED BLOOD CELL (test code = RBC) 4.40 mill/mm3 4.0-5.8 N HEMOGLOBIN (test code = HGB) 12.7 gram/dL 13.0-17.5 L HEMATOCRIT (test code = HCT) 37.7 % 42.0-52.0 L MEAN CELL VOLUME (test code = MCV) 85.7 fL 80-98 N MEAN CELL HGB (test code = MCH) 28.9 picogram 27.0-33.0 N MEAN CELL HGB CONCETRATION (test code = MCHC) 33.7 gram/dL 33.0-36. 0 N RED CELL DISTRIBUTION WIDTH (test code = RDW) 15.6 % 11.6-16. 2 N PLATELET COUNT (test code = PLT) 243 K/mm3 150-450 N MEAN PLATELET VOLUME (test code = MPV) 10.7 fL 6.7-11.[address] ABD/PEL WITH AKCVWRRS-PPDG1053-57-07 16:55:00 [place] [address] Patient Name: TEDDY LESTER MR #: [id number] : 1945 Age/Sex: 74/M Req #: [id number] Adm Physician: Ordered by: BENIGNO YANG Report #: [id number] Location: [facility] Room/Bed: Procedure: [id number] H OPD/CT ABD/PEL WITH CONTRAST-HOPD Exam Date: 08/21/19 Exam Time: 1644 REPORT STATUS: Si gned EXAM: CT Abdomen and Pelvis WITH intravenous contrast INDICATION: Abdominal pain COMPARISON: None. TECHNIQUE: Abdomen and pelvis were s canned utilizing a multidetector helical scanner from the lung base to the pub ic symphysis after administration of IV contrast. Coronal and sagittal reforma tions were obtained. Routine protocol was performed. Scan was performed during portal venous phase. IV CONTRAST: 100mL of Isovue 370 ORAL CONTRAST: Water RADIATION DOSE: Total DLP: 707 mGy*cm Dose modulation, iter ative reconstruction, and/or weight based adjustment of the mA/kV was utilized to reduce the radiation dose to as low as reasonably achievable. FINDIN GS: LOWER THORAX: Small sliding hiatal hernia. HEPATOBILIARY: Mild hepati c steatosis. No focal liver lesion. Status post cholecystectomy. SPLEEN: No splenomegaly. PANCREAS: No mass or ductal dilation. ADRENALS: No ad renal nodules. KIDNEYS/URETERS: No renal calculi or hydronephrosis. Multiple s imple bilateral renal cysts left greater than right. PELVIC ORGANS/BLADDER: Unremarkable. PERITONEUM / RETROPERITONEUM: No free air or fluid. LYMPH N ODES: No lymphadenopathy. VESSELS: Atherosclerotic calcifications of the nonan eurysmal abdominal aorta and major branches. GI TRACT: Diverticulosis wit hout CT evidence of diverticulitis. No abnormal bowel thickening. No bowel obs truction. BONES AND SOFT TISSUES: Status post right sacroiliac fixation. Mu ltilevel thoracolumbar vertebral augmentation. No acute osseous injury. Diffus e osteopenia. IMPRESSION: No acute findings in the abdomen or pelvis. Diverticula cyst without CT evidence of diverticulitis. Mild hepatic s teatosis. Signed by: Chance Liriano MD on 08/21/2019 5:01 PM Dictated By: CHANCE LIRIANO MD 00 Transc ribed By: ERICH on 08/21/191700 COPY TO: BENIGNO YANG Creatine Kinase [id number] 05:35:00* Test Item Value Reference Range Interpretation Comments Creatine Kinase MB (test code = 79644-7) 1.30 0-5.0 [facility] [id number] 05:35:00* Test Item Value Reference Range Interpretation Comments Troponin I (test code = BMZ3823) 0.007 0-0.300 [facility] [id number] 05:35:00* Test Item Value Reference Range Interpretation Comments Creatine Kinase MB (test code = 05266-7) 1.30 0-5.0 [place] 69843020-02-06 05:35:00* Test Item Value Reference Range Interpretation Comments Troponin I (test code = TVK8679) 0.007 0-0.300 [facility] CenterCreatine Kinase [id number] 05:35:00* Test Item Value Reference Range Interpretation Comments Creatine Kinase MB (test code = 85238-6) 1.30 0-5.0 [place] 69843020-02-06 05:35:00* Test Item Value Reference Range Interpretation Comments Troponin I (test code = 67510-1) 0.007 0-0.300 [facility] Apevz6542-76-02 05:30:00* Test Item Value Reference Range Interpretation Comments Sodium Level (test code = 2951-2) 140 136-145 [facility] CenterPotassium Olypd1883-28-63 05:30:00* Test Item Value Reference Range Interpretation Comments Potassium Level (test code = 2823-3) 3.9 3.5-5.1 [facility] CenterChloride Htpup6722-86-98 05:30:00* Test Item Value Reference Range Interpretation Comments Chloride Level (test code = 2075-0) 103 98-107 [facility] CenterCarbon Dioxide Tqdbn0447-33-97 05:30:00* Test Item Value Reference Range Interpretation Comments Carbon Dioxide Level (test code = 2028-9) 23 22-29 [facility] CenterAnion Dub3163-54-13 05:30:00* Test Item Value Reference Range Interpretation Comments Anion Gap (test code = 63017-5) 17.9 8-16 H [facility] CenterBlood Urea Fvqsdljy7304-03-94 05:30:00* Test Item Value Reference Range Interpretation Comments Blood Urea Nitrogen (test code = 3094-0) 14 7-26 [facility] CenterCreatinine2020-02-06 05:30:00* Test Item Value Reference Range Interpretation Comments Creatinine (test code = 2160-0) 1.67 0.72-1.25 H [facility] CenterBUN/Creatinine Trrmh1442-20-78 05:30:00* Test Item Value Reference Range Interpretation Comments BUN/Creatinine Ratio (test code = 3097-3) 8 6-25 [facility] CenterEstimat Glomerular Filtration Rate 2019-06-21 05:30:00* Test Item Value Reference Range Interpretation Comments Estimat Glomerular Filtration Rate (test code = 281384445) 41 >60 L Ranges were taken from the National Kidney Disease Education Program and the [facility] literature.Reference ranges:60 or greater: Nzoqst75-72 ( for 3 consecutive months): Chronic kidney disease 15 or less: Kidney failureLas Palmas Medical CenterGlucose Tuzpk6115-45-08 05:30:00* Test Item Value Reference Range Interpretation Comments Glucose Level (test code = EIG3870) 131 74-118 H [facility] CenterCalcium Adftk6650-11-51 05:30:00* Test Item Value Reference Range Interpretation Comments Calcium Level (test code = 16913-1) 9.6 8.4-10.2 [facility] CenterTotal Biyamdhea4526-45-42 05:30:00* Test Item Value Reference Range Interpretation Comments Total Bilirubin (test code = 1975-2) 0.8 0.2-1.2 [facility] CenterAspartate Amino Transf (AST/SGOT) 2019-06-21 05:30:00* Test Item Value Reference Range Interpretation Comments Aspartate Amino Transf (AST/SGOT) (test code = Aspartate Amino Transf (AST/SGOT)) 17 5-34 [facility] CenterAlanine Aminotransferase (ALT/SGPT) 2019-06-21 05:30:00* Test Item Value Reference Range Interpretation Comments Alanine Aminotransferase (ALT/SGPT) (test code = 1742-6) 11 0-55 [facility] CenterTotal Smsklte2056-57-81 05:30:00* Test Item Value Reference Range Interpretation Comments Total Protein (test code = 2885-2) 7.8 6.5-8.1 [facility] CenterAlbumin2020-02-06 05:30:00* Test Item Value Reference Range Interpretation Comments Albumin (test code = 1751-7) 4.0 3.5-5.0 [facility] CenterGlobulin2020-02-06 05:30:00* Test Item Value Reference Range Interpretation Comments Globulin (test code = 53198-2) 3.8 2.3-3.5 H [facility] CenterAlbumin/Globulin Kpemi8930-53-06 05:30:00 * Test Item Value Reference Range Interpretation Comments Albumin/Globulin Ratio (test code = 1759-0) 1.1 0.8-2.0 [facility] CenterAlkaline Rahibzwmdhr9744-31-49 05:30:00* Test Item Value Reference Range Interpretation Comments Alkaline Phosphatase (test code = 6768-6) 125 40-150 [facility] CenterCreatine Yyoenp1293-44-99 05:30:00* Test Item Value Reference Range Interpretation Comments Creatine Kinase (test code = 2157-6) 57 30-200 [facility]odium Bklkk1275-14-92 05:30:00* Test Item Value Reference Range Interpretation Comments Sodium Level (test code = 2951-2) 140 136-145 [facility] CenterPotassium Habcy8525-97-89 05:30:00* Test Item Value Reference Range Interpretation Comments Potassium Level (test code = 2823-3) 3.9 3.5-5.1 [facility] CenterChloride Aysao3664-42-38 05:30:00* Test Item Value Reference Range Interpretation Comments Chloride Level (test code = 2075-0) 103 98-107 [facility] CenterCarbon Dioxide Xddxr6748-58-18 05:30:00* Test Item Value Reference Range Interpretation Comments Carbon Dioxide Level (test code = 2028-9) 23 22-29 [facility] CenterAnion Iyi2172-01-89 05:30:00* Test Item Value Reference Range Interpretation Comments Anion Gap (test code = 72577-7) 17.9 8-16 H [facility] CenterBlood Urea Iqzpddkr4073-95-39 05:30:00* Test Item Value Reference Range Interpretation Comments Blood Urea Nitrogen (test code = 3094-0) 14 7-26 [facility] CenterCreatinine2020-02-06 05:30:00* Test Item Value Reference Range Interpretation Comments Creatinine (test code = 2160-0) 1.67 0.72-1.25 H [facility] CenterBUN/Creatinine Hllit9026-25-10 05:30:00* Test Item Value Reference Range Interpretation Comments BUN/Creatinine Ratio (test code = 3097-3) 8 6-25 [facility] CenterEstimat Glomerular Filtration Rate 2019-06-21 05:30:00* Test Item Value Reference Range Interpretation Comments Estimat Glomerular Filtration Rate (test code = 449517606) 41 >60 L Ranges were taken from the National Kidney Disease Education Program and the [facility] literature.Reference ranges:60 or greater: Bcrgdp65-56 ( for 3 consecutive months): Chronic kidney disease 15 or less: Kidney failureLas Palmas Medical CenterGlucose Kpvuf3949-32-14 05:30:00* Test Item Value Reference Range Interpretation Comments Glucose Level (test code = FBP9796) 131 74-118 H [facility] CenterCalcium Ywffn3009-46-30 05:30:00* Test Item Value Reference Range Interpretation Comments Calcium Level (test code = 61885-4) 9.6 8.4-10.2 [facility] CenterTotal Plwnigonn5384-91-26 05:30:00* Test Item Value Reference Range Interpretation Comments Total Bilirubin (test code = 1975-2) 0.8 0.2-1.2 [facility] CenterAspartate Amino Transf (AST/SGOT) 2019-06-21 05:30:00* Test Item Value Reference Range Interpretation Comments Aspartate Amino Transf (AST/SGOT) (test code = Aspartate Amino Transf (AST/SGOT)) 17 5-34 [facility] CenterAlanine Aminotransferase (ALT/SGPT) 2019-06-21 05:30:00* Test Item Value Reference Range Interpretation Comments Alanine Aminotransferase (ALT/SGPT) (test code = 1742-6) 11 0-55 [facility] CenterTotal Kjgekgm4139-05-00 05:30:00* Test Item Value Reference Range Interpretation Comments Total Protein (test code = 2885-2) 7.8 6.5-8.1 [facility] CenterAlbumin2020-02-06 05:30:00* Test Item Value Reference Range Interpretation Comments Albumin (test code = 1751-7) 4.0 3.5-5.0 [facility] CenterGlobulin2020-02-06 05:30:00* Test Item Value Reference Range Interpretation Comments Globulin (test code = 18737-3) 3.8 2.3-3.5 H [facility] CenterAlbumin/Globulin Picpx8233-50-50 05:30:00 * Test Item Value Reference Range Interpretation Comments Albumin/Globulin Ratio (test code = 1759-0) 1.1 0.8-2.0 [facility] CenterAlkaline Fmhtqnspnfx3002-91-11 05:30:00* Test Item Value Reference Range Interpretation Comments Alkaline Phosphatase (test code = 6768-6) 125 40-150 [facility] CenterCreatine Ylhdgj0730-06-58 05:30:00* Test Item Value Reference Range Interpretation Comments Creatine Kinase (test code = 2157-6) 57 30-200 [facility] Hospitalodium Tsktn1315-59-83 05:30:00* Test Item Value Reference Range Interpretation Comments Sodium Level (test code = 2951-2) 140 136-145 [facility] CenterPotassium Sytwf0180-51-28 05:30:00* Test Item Value Reference Range Interpretation Comments Potassium Level (test code = 2823-3) 3.9 3.5-5.1 [facility] CenterChloride Qdifp7608-17-29 05:30:00* Test Item Value Reference Range Interpretation Comments Chloride Level (test code = 2075-0) 103 98-107 [facility] CenterCarbon Dioxide Aeybw8697-35-08 05:30:00* Test Item Value Reference Range Interpretation Comments Carbon Dioxide Level (test code = 2028-9) 23 22-29 [facility] CenterAnion Rqj0567-00-80 05:30:00* Test Item Value Reference Range Interpretation Comments Anion Gap (test code = 10349-2) 17.9 8-16 H [facility] CenterBlood Urea Fquuicob7405-70-93 05:30:00* Test Item Value Reference Range Interpretation Comments Blood Urea Nitrogen (test code = 3094-0) 14 7-26 [facility] CenterCreatinine2020-02-06 05:30:00* Test Item Value Reference Range Interpretation Comments Creatinine (test code = 2160-0) 1.67 0.72-1.25 H [facility] CenterBUN/Creatinine Nlzoi8562-36-13 05:30:00* Test Item Value Reference Range Interpretation Comments BUN/Creatinine Ratio (test code = 3097-3) 8 6-25 [facility] CenterEstimat Glomerular Filtration Rate 2019-06-21 05:30:00* Test Item Value Reference Range Interpretation Comments Estimat Glomerular Filtration Rate (test code = 874695743) 41 >60 L Ranges were taken from the National Kidney Disease Education Program and the [facility] Foundation literature.Reference ranges:60 or greater: Utvsxd90-99 ( for 3 consecutive months): Chronic kidney disease 15 or less: Kidney failureLas Palmas Medical CenterGlucose Vxrta5847-96-64 05:30:00* Test Item Value Reference Range Interpretation Comments Glucose Level (test code = NYV4568) 131 74-118 H [facility] CenterCalcium Olntt1310-96-08 05:30:00* Test Item Value Reference Range Interpretation Comments Calcium Level (test code = 51446-3) 9.6 8.4-10.2 [facility] CenterTotal Tkrwxuwot1980-70-06 05:30:00* Test Item Value Reference Range Interpretation Comments Total Bilirubin (test code = 1975-2) 0.8 0.2-1.2 [facility] CenterAspartate Amino Transf (AST/SGOT) 2019-06-21 05:30:00* Test Item Value Reference Range Interpretation Comments Aspartate Amino Transf (AST/SGOT) (test code = Aspartate Amino Transf (AST/SGOT)) 17 5-34 [facility] CenterAlanine Aminotransferase (ALT/SGPT) 2019-06-21 05:30:00* Test Item Value Reference Range Interpretation Comments Alanine Aminotransferase (ALT/SGPT) (test code = 1742-6) 11 0-55 [facility] CenterTotal Fpstcrp9575-07-10 05:30:00* Test Item Value Reference Range Interpretation Comments Total Protein (test code = 2885-2) 7.8 6.5-8.1 [facility] CenterAlbumin2020-02-06 05:30:00* Test Item Value Reference Range Interpretation Comments Albumin (test code = 1751-7) 4.0 3.5-5.0 [facility] CenterGlobulin2020-02-06 05:30:00* Test Item Value Reference Range Interpretation Comments Globulin (test code = 94391-0) 3.8 2.3-3.5 H [facility] CenterAlbumin/Globulin Wbtkk1840-03-20 05:30:00 * Test Item Value Reference Range Interpretation Comments Albumin/Globulin Ratio (test code = 1759-0) 1.1 0.8-2.0 [facility] CenterAlkaline Wxhrknmnaoo0315-18-33 05:30:00* Test Item Value Reference Range Interpretation Comments Alkaline Phosphatase (test code = 6768-6) 125 40-150 [facility] CenterCreatine Zbxswt9130-99-17 05:30:00* Test Item Value Reference Range Interpretation Comments Creatine Kinase (test code = 2157-6) 57 30-200 [facility] CenterCHEST SINGLE (PORTABLE)2019-06-21 05:30:00 [facility] [address] [place] [address] Patient Name: TEDDY LESTER MR #: [id number] : 1945 Age/Sex: 74/M Req #: [id number] Adm Physician: Ordered by: KELY LETSER MD Report #: [id number] Location: ER Room/Bed: Procedure: [id number] DX/CHEST SINGLE (PORTABLE) Exam Date: 06/21/19 Exam Time: 0515 REPORT STATUS: Sig zaheer EXAMINATION: CHEST SINGLE (PORTABLE) INDICATION: Chest quinton n COMPARISON: 09/30/2018. FINDINGS: TUBES and LINES: None. LUNGS: Lungs are well inflated. There are bibasilar atelectasis. There is no evidence of pneumonia or pulmonary edema. PLEURA: No pleural effusion or pneumothorax. HEART AND MEDIASTINUM: The cardiomediastinal silhouette is unremarkable. The thoracic aorta is tortuous and unfolded. BONES AND SOFT TISSUES: No acute osseous lesion. Median sternotomy wires. Soft tissues are unremarkable UPPER ABDOMEN: No free air under the diaphragm. IMPRESSION: No acute thoracic abnormality. Signed by: Dr. Rock Hayes M.D. on 06/21/2019 5:32 AM Dictated By: MARISEL HAYES MD, MD E lectronically Signed By: MARISEL HAYES MD, MD on 06/21/19531 Transcribed By: ERICH on 06/21/19531 COPY TO: KELY LESTER MD White Blood Vqsyp0854-73-00 05:07:00* Test Item Value Reference Range Interpretation Comments White Blood Count (test code = 6690-2) 8.01 4.8-10.8 [facility] CenterRed Blood Bjktx7863-11-20 05:07:00* Test Item Value Reference Range Interpretation Comments Red Blood Count (test code = 789-8) 4.84 4.3-5.7 [facility] CenterHemoglobin2020-02-06 05:07:00* Test Item Value Reference Range Interpretation Comments Hemoglobin (test code = 99613-5) 14.0 14.0-18.0 [facility] CenterHematocrit2020-02-06 05:07:00* Test Item Value Reference Range Interpretation Comments Hematocrit (test code = 4544-3) 42.2 38.2-49.6 [facility] CenterMean Corpuscular Iovebb5506-79-96 05:07:00* Test Item Value Reference Range Interpretation Comments Mean Corpuscular Volume (test code = 787-2) 87.2 81-99 [facility] CenterMean Corpuscular Jqoiskefyw6628-45-63 05:07:00* Test Item Value Reference Range Interpretation Comments Mean Corpuscular Hemoglobin (test code = 785-6) 28.9 28-32 [facility] CenterMean Corpuscular Hemoglobin Concent 2019-06-21 05:07:00* Test Item Value Reference Range Interpretation Comments Mean Corpuscular Hemoglobin Concent (test code = 786-4) 33.2 31-35 [facility] CenterRed Cell Distribution Iqnsx9287-80-80 05:07:00* Test Item Value Reference Range Interpretation Comments Red Cell Distribution Width (test code = 29693-1) 15.6 11.7 -14.4 H [facility] CenterPlatelet Lqywp7946-27-13 05:07:00* Test Item Value Reference Range Interpretation Comments Platelet Count (test code = 777-3) 241 140-360 [facility] CenterNeutrophils (%) (Auto)2019-06-21 05:07:00 * Test Item Value Reference Range Interpretation Comments Neutrophils (%) (Auto) (test code = 84002-7) 64.2 38.7-80.0 [facility] CenterLymphocytes (%) (Auto)2019-06-21 05:07:00 * Test Item Value Reference Range Interpretation Comments Lymphocytes (%) (Auto) (test code = 736-9) 22.6 18.0-39.1 [facility] CenterMonocytes (%) (Auto)2019-06-21 05:07:00* Test Item Value Reference Range Interpretation Comments Monocytes (%) (Auto) (test code = 5905-5) 10.5 4.4-11.3 [facility] CenterEosinophils (%) (Auto)2019-06-21 05:07:00 * Test Item Value Reference Range Interpretation Comments Eosinophils (%) (Auto) (test code = 713-8) 1.4 0.0-6.0 [facility] CenterBasophils (%) (Auto)2019-06-21 05:07:00* Test Item Value Reference Range Interpretation Comments Basophils (%) (Auto) (test code = 706-2) 0.4 0.0-1.0 [facility] CenterIM GRANULOCYTES %2019-06-21 05:07:00* Test Item Value Reference Range Interpretation Comments IM GRANULOCYTES % (test code = IM GRANULOCYTES %) 0.9 0.0- 1.0 [facility] CenterNeutrophils # (Auto)2019-06-21 05:07:00* Test Item Value Reference Range Interpretation Comments Neutrophils # (Auto) (test code = 751-8) 5.2 2.1-6.9 [facility] CenterLymphocytes # (Auto)2019-06-21 05:07:00* Test Item Value Reference Range Interpretation Comments Lymphocytes # (Auto) (test code = 63475-5) 1.8 1.0-3.2 [facility] CenterMonocytes # (Auto)2019-06-21 05:07:00* Test Item Value Reference Range Interpretation Comments Monocytes # (Auto) (test code = 742-7) 0.8 0.2-0.8 [facility] CenterEosinophils # (Auto)2019-06-21 05:07:00* Test Item Value Reference Range Interpretation Comments Eosinophils # (Auto) (test code = 711-2) 0.1 0.0-0.4 [facility] CenterBasophils # (Auto)2019-06-21 05:07:00* Test Item Value Reference Range Interpretation Comments Basophils # (Auto) (test code = 704-7) 0.0 0.0-0.1 [facility] CenterAbsolute Immature Granulocyte (auto 2019-06-21 05:07:00* Test Item Value Reference Range Interpretation Comments Absolute Immature Granulocyte (auto (savanah t code = Absolute Immature Granulocyte (auto) 0.07 0-0.1 [facility] CenterWhite Blood Ouxou3803-61-26 05:07:00* Test Item Value Reference Range Interpretation Comments White Blood Count (test code = 6690-2) 8.01 4.8-10.8 [facility] CenterRed Blood Rxqnh2562-21-07 05:07:00* Test Item Value Reference Range Interpretation Comments Red Blood Count (test code = 789-8) 4.84 4.3-5.7 [facility] CenterHemoglobin2020-02-06 05:07:00* Test Item Value Reference Range Interpretation Comments Hemoglobin (test code = 17493-7) 14.0 14.0-18.0 [facility] CenterHematocrit2020-02-06 05:07:00* Test Item Value Reference Range Interpretation Comments Hematocrit (test code = 4544-3) 42.2 38.2-49.6 [facility] CenterMean Corpuscular Dhcfup2206-73-77 05:07:00* Test Item Value Reference Range Interpretation Comments Mean Corpuscular Volume (test code = 787-2) 87.2 81-99 [facility] CenterMean Corpuscular Jlwlhlbwfu7525-92-72 05:07:00* Test Item Value Reference Range Interpretation Comments Mean Corpuscular Hemoglobin (test code = 785-6) 28.9 28-32 [facility] CenterMean Corpuscular Hemoglobin Concent 2019-06-21 05:07:00* Test Item Value Reference Range Interpretation Comments Mean Corpuscular Hemoglobin Concent (test code = 786-4) 33.2 31-35 [facility] CenterRed Cell Distribution Ktpvq2598-77-30 05:07:00* Test Item Value Reference Range Interpretation Comments Red Cell Distribution Width (test code = 40603-4) 15.6 11.7 -14.4 H [facility] CenterPlatelet Kavmz7758-03-94 05:07:00* Test Item Value Reference Range Interpretation Comments Platelet Count (test code = 777-3) 241 140-360 [facility] CenterNeutrophils (%) (Auto)2019-06-21 05:07:00 * Test Item Value Reference Range Interpretation Comments Neutrophils (%) (Auto) (test code = 77691-0) 64.2 38.7-80.0 [facility] CenterLymphocytes (%) (Auto)2019-06-21 05:07:00 * Test Item Value Reference Range Interpretation Comments Lymphocytes (%) (Auto) (test code = 736-9) 22.6 18.0-39.1 [facility] CenterMonocytes (%) (Auto)2019-06-21 05:07:00* Test Item Value Reference Range Interpretation Comments Monocytes (%) (Auto) (test code = 5905-5) 10.5 4.4-11.3 [facility] CenterEosinophils (%) (Auto)2019-06-21 05:07:00 * Test Item Value Reference Range Interpretation Comments Eosinophils (%) (Auto) (test code = 713-8) 1.4 0.0-6.0 [facility] CenterBasophils (%) (Auto)2019-06-21 05:07:00* Test Item Value Reference Range Interpretation Comments Basophils (%) (Auto) (test code = 706-2) 0.4 0.0-1.0 [facility] CenterIM GRANULOCYTES %2019-06-21 05:07:00* Test Item Value Reference Range Interpretation Comments IM GRANULOCYTES % (test code = IM GRANULOCYTES %) 0.9 0.0- 1.0 [facility] CenterNeutrophils # (Auto)2019-06-21 05:07:00* Test Item Value Reference Range Interpretation Comments Neutrophils # (Auto) (test code = 751-8) 5.2 2.1-6.9 [facility] CenterLymphocytes # (Auto)2019-06-21 05:07:00* Test Item Value Reference Range Interpretation Comments Lymphocytes # (Auto) (test code = 95478-2) 1.8 1.0-3.2 [facility] CenterMonocytes # (Auto)2019-06-21 05:07:00* Test Item Value Reference Range Interpretation Comments Monocytes # (Auto) (test code = 742-7) 0.8 0.2-0.8 [facility] CenterEosinophils # (Auto)2019-06-21 05:07:00* Test Item Value Reference Range Interpretation Comments Eosinophils # (Auto) (test code = 711-2) 0.1 0.0-0.4 [facility] CenterBasophils # (Auto)2019-06-21 05:07:00* Test Item Value Reference Range Interpretation Comments Basophils # (Auto) (test code = 704-7) 0.0 0.0-0.1 [facility] CenterAbsolute Immature Granulocyte (auto 2019-06-21 05:07:00* Test Item Value Reference Range Interpretation Comments Absolute Immature Granulocyte (auto (savanah t code = Absolute Immature Granulocyte (auto) 0.07 0-0.1 [facility] CenterWhite Blood Tpydy9129-35-46 05:07:00* Test Item Value Reference Range Interpretation Comments White Blood Count (test code = 6690-2) 8.01 4.8-10.8 [facility] CenterRed Blood Flaem5867-17-76 05:07:00* Test Item Value Reference Range Interpretation Comments Red Blood Count (test code = 789-8) 4.84 4.3-5.7 [facility] CenterHemoglobin2020-02-06 05:07:00* Test Item Value Reference Range Interpretation Comments Hemoglobin (test code = 21707-3) 14.0 14.0-18.0 [facility] CenterHematocrit2020-02-06 05:07:00* Test Item Value Reference Range Interpretation Comments Hematocrit (test code = 4544-3) 42.2 38.2-49.6 [facility] [id number] 05:07:00* Test Item Value Reference Range Interpretation Comments Mean Corpuscular Volume (test code = 787-2) 87.2 81-99 [facility] [id number] 05:07:00* Test Item Value Reference Range Interpretation Comments Mean Corpuscular Hemoglobin (test code = 785-6) 28.9 28-32 [facility] Hemoglobin Concent 2019-06-21 05:07:00* Test Item Value Reference Range Interpretation Comments Mean Corpuscular Hemoglobin Concent (test code = 786-4) 33.2 31-35 [facility] Cell Distribution [id number] 05:07:00* Test Item Value Reference Range Interpretation Comments Red Cell Distribution Width (test code = 69064-5) 15.6 11.7 -14.4 H [facility] CenterPlatelet [id number] 05:07:00* Test Item Value Reference Range Interpretation Comments Platelet Count (test code = 777-3) 241 140-360 [facility]Neutrophils (%) (Auto)2019-06-21 05:07:00 * Test Item Value Reference Range Interpretation Comments Neutrophils (%) (Auto) (test code = 17190-6) 64.2 38.7-80.0 [facility] CenterLymphocytes (%) (Auto)2019-06-21 05:07:00 * Test Item Value Reference Range Interpretation Comments Lymphocytes (%) (Auto) (test code = 736-9) 22.6 18.0-39.1 [facility] (%) (Auto)2019-06-21 05:07:00* Test Item Value Reference Range Interpretation Comments Monocytes (%) (Auto) (test code = 5905-5) 10.5 4.4-11.3 [facility]Eosinophils (%) (Auto)2019-06-21 05:07:00 * Test Item Value Reference Range Interpretation Comments Eosinophils (%) (Auto) (test code = 713-8) 1.4 0.0-6.0 [facility] (%) (Auto)2019-06-21 05:07:00* Test Item Value Reference Range Interpretation Comments Basophils (%) (Auto) (test code = 706-2) 0.4 0.0-1.0 [facility] CenterIM GRANULOCYTES %2019-06-21 05:07:00* Test Item Value Reference Range Interpretation Comments IM GRANULOCYTES % (test code = IM GRANULOCYTES %) 0.9 0.0- 1.0 [facility]Neutrophils # (Auto)2019-06-21 05:07:00* Test Item Value Reference Range Interpretation Comments Neutrophils # (Auto) (test code = 751-8) 5.2 2.1-6.9 [facility] CenterLymphocytes # (Auto)2019-06-21 05:07:00* Test Item Value Reference Range Interpretation Comments Lymphocytes # (Auto) (test code = 92666-7) 1.8 1.0-3.2 [facility]Monocytes # (Auto)2019-06-21 05:07:00* Test Item Value Reference Range Interpretation Comments Monocytes # (Auto) (test code = 742-7) 0.8 0.2-0.8 [facility] CenterEosinophils # (Auto)2019-06-21 05:07:00* Test Item Value Reference Range Interpretation Comments Eosinophils # (Auto) (test code = 711-2) 0.1 0.0-0.4 [facility] # (Auto)2019-06-21 05:07:00* Test Item Value Reference Range Interpretation Comments Basophils # (Auto) (test code = 704-7) 0.0 0.0-0.1 [facility] CenterAbsolute Immature Granulocyte (auto 2019-06-21 05:07:00* Test Item Value Reference Range Interpretation Comments Absolute Immature Granulocyte (auto (savanah t code = Absolute Immature Granulocyte (auto) 0.07 0-0.1 [facility]- CTA ABD PEL W [id number] 22:28:00 Name: [facility] [place] : 1945 Age/S: 74 / M [address] [place] [address] Blvd Unit #: [id number] Loc: [place] [address] Phys: Benjamin Lockwood DO Acct: [id number] Di s Date: Status: REG ER PHONE #: Exam Date: 04/02/20192149 FAX #: Reason: back pain, hypertensive EXAMS: CPT CODE: [id number] CTA ABD PEL W CONT [address]346 CT ANGIOGRAM ABDOMEN AND PELVIS INDICATION: back pain, hypertensive TECHNIQUE : 100 mL Isovue-300 iodinated intravenous contrast was administered. CT angiography of the abdomen and pelvis was performed with axial images. Ma ximum intensity projection images were also reviewed. CT imaging performe d at this location utilizes radiation dose optimization technique which in cludes one or more of the followin) Automated exposure control; 2) Adj ustment of the mA and/or kV according to patient's size; 3) Use of iterati ve reconstruction techniques. DLP (mGy-cm): 715 COMPARISONS : CT abdomen and pelvis 03/17/2019 FINDINGS: There i s no acute osseous fracture or dislocation. There are chronic mild to mod erate compression deformities of the T12-L4 vertebra with indwelling verte broplasty cement. There are surgical changes of sternotomy. There is meta llic fusion of the right sacroiliac joint. There is soft tissue ed claudy in the right groin consistent with recent vascular access. There is n o soft tissue fluid collection or subcutaneous gas. There ar e incompletely imaged heavy atherosclerotic calcifications of the coronary arteries. The heart size is normal. There is a mild amount of at herosclerotic calcification of the abdominal aorta. There is no abdominal aortic aneurysm, dissection or significant stenosis. There is less than 10% aortic luminal stenosis. There is 33% stenosis of the celiac a rtery origin. The common hepatic artery reveals a origin directly from the aorta, an anatomic variant. There is 75% stenosis of the origin of this vessel. There is a patent stent within the superior mesent xiomara artery proximal segment. There is no high-grade luminal stenosis, an eurysm or occlusion of this vessel. The inferior mesenteric artery is patent. There is atherosclerotic plaque with less than 2 5% stenosis of the PAGE 1 Signed Report (CONTINUED) Name: [facility] Lina López : 1945 Age/S: 74 / M [address] [place] [address] Blvd Unit #: [id number] Loc: [place] [address] Phys: Arya Lockwood DO Acct: [id number] Dis Date: Status: REG ER PHONE #: [phone] Exam Date: 04/02/20192149 FAX #: [phone] Reason: back pain, hypertensive EXAMS: CPT CODE: [id number] CTA ABD PEL W CONT 14324 <Continued> left renal artery origin. There are 2 right renal arteries with origins from the aorta. The superior pole more medially demonstrates a 50% stenosis at the origin. The inferior pole moiety demonstrates a 50% stenosis at the origin. There is atherosclerotic plaque with less than 25% luminal stenosis of the right common iliac artery. The right external iliac artery is widely patent. There is 25% stenosis of the righ t common femoral artery. There is nonstenotic atheroscleroti c calcification of the left common iliac artery and external iliac artery. There is 33% stenosis of the left common femoral artery. T he inferior vena cava reveals no acute process. There is atelectas is in the lung bases. There is mild centrilobular pulmonary emphysema. There is no acute hepatic process. The gallbladder is surgically absent. The pancreas reveals no acute process. There is moderate pancreatic atrophy. The spleen reveals no acute process. The adrenal glands reveal no acute process or mass. There are benign bilateral renal cysts. The largest on the left measures up to 4.6 cm in the superior pole. The largest on the right measures 2.1 cm in the midpole. No additional follow-up is required for these lesions. There is symmetric nonspecific perinephric fat stranding. There is no acute renal process. The urinary bladder is nondistended. There is generalized urinary bladder wall thickening which may be due to spasm or cystitis. There is no perivesicular fat stranding. There is nonspecific calcification of the prostate that may be secondary to a r emote inflammatory process. There is no acute reproductive structure abnor mality. PAGE 2 Signed Report (CONTINUED) Name: [facility] Lina López : 1945 Age/S: 74 / M [address] [place] [address] Blvd Unit #: [id number] Loc: [place] [address] P hys: Arya Lockwood DO Acct: [id number] Dis Date: Status: REG ER PHONE #: [phone] Exam Date: 04/02/2019 2150 F AX #: [phone] Reason: back pain, hypertensive EXAMS: CPT CODE: [id number] CTA ABD PEL W CONT 45748 <Continued> There is no intra-abdominal free fluid. There is no intra-abdominal free gas. There is no lymphadenopathy. There is a small fat filled hiatal hernia. The stomach remains within the abdominal cavity. There is no bowel obstruction. There is no bowel mucosal thickening or inflamma tion. There is severe nonacute colonic diverticulosis. There is no evide nce of acute appendicitis. IMPRESSION: 1. Th ere is no arterial occlusion, aneurysm or dissection. 2. There is mild atherosclerotic calcification of the abdominal aorta without signif icant stenosis, dissection or aneurysm. 3. There is 75% stenosis of the common hepatic artery origin. The origin is directly from the abdominal aorta. 4. There are 2 right renal arteries with origins from the abdo yvette aorta. Both demonstrate 50% stenosis. 5. There is a tidwell nt vascular stent in the superior mesenteric artery without evidence of significant stenosis. 6. Please refer to the findings for discussion of additional mild stenoses. 7. There is generalized urinary blad syd wall thickening which may be due to spasm and under distention versu s cystitis. Otherwise, no acute intra-abdominal process. 8. Th ere are additional nonacute findings that are described above. % Arterial stenosis = (1-narrowest diameter/tristan meter of normal vessel) x 100 -Mild: <50% stenosis - Moderate: 50-69% stenosis -Severe: 70-94% stenosis -Near occlusion: 95-99% stenosis -Occluded: 100% stenosis at 2228 Reported and signed by: Butch Brand D.O. PAGE 3 Signed Report (CONTINUED) Name: [facility] By[place] : 1945 Age/S: 74 / M [address] [place] [address] Unit #: [id number] Loc: [place] [address] Phys: Arya Lockwood Acct: [id number] Dis Date: Status: REG ER PHONE #: [phone] Exam Date: 04/02/2019 215 FAX #: [phone] Reason: back pain, hypertensive EXAMS: CPT CODE: [id number] CTA ABD PEL W CONT 31750 < Continued> CC: Arya Lockwood DO Technologist:RT Darlene(R) CTDI: DLP: Trnscb Date/Time: 04/02/2019 (2227) [id number] Orig Print D/T: S: 04/02/2019 (6386) PAGE 4 Signed Report DRUGS OF ABUSE SCREEN [id number] 21:29:00* Test Item Value Reference Range Interpretation Comments URN COCAINE (test code = COCAURN) NEGATIVE NEGATIVE URN CANNABINOIDS (test code = CANNABURN) NEGATIVE NEGATIVE URN AMPHETAMINE (test code = AMPHETURN) NEGATIVE NEGATIVE URN BARBITURATE (test code = BARBITURN) NEGATIVE NEGATIVE URN BENZODIAZEPINE (test code = BENZOURN) NEGATIVE NEGATIVE Cut-off value:200 ng/mL URN OPIATES (test code = OPIATURN) POSITIVE NEGATIVE A Cut-off value:2000 ng/mL URN PHENCYCLIDINE (PCP) (test code = PHENCURN) NEGATIVE NEGATIV E Cutoffs:Barbiturates 200 ng/mLBenzodiazepines 200 ng/mLTHC Cannabinoids 50 ng/mLOpiates(Morphine) 2000 ng/mLAmphetamine 1000 ng/mLCocaine 300 ng/mLPCP phencyclidine 25 ng/mL Unconfirmed screening results shouldnot be used for non-medical purposes. DRUGS OF ABUSE SCREEN [id number] 21:21:00* Test Item Value Reference Range Interpretation Comments URN COCAINE (test code = COCAURN) NEGATIVE NEGATIVE URN CANNABINOIDS (test code = CANNABURN) NEGATIVE NEGATIVE URN AMPHETAMINE (test code = AMPHETURN) NEGATIVE NEGATIVE URN BARBITURATE (test code = BARBITURN) NEGATIVE NEGATIVE URN BENZODIAZEPINE (test code = BENZOURN) NEGATIVE NEGATIVE Cut-off value:200 ng/mL URN OPIATES (test code = OPIATURN) NEGATIVE URN PHENCYCLIDINE (PCP) (test code = PHENCURN) NEGATIVE NEGATIV E Cutoffs:Barbiturates 200 ng/mLBenzodiazepines 200 ng/mLTHC Cannabinoids 50 ng/mLOpiates(Morphine) 2000 ng/mLAmphetamine 1000 ng/mLCocaine 300 ng/mLPCP phencyclidine 25 ng/mL Unconfirmed screening results shouldnot be used for non-medical purposes. BASIC METABOLIC [id number] 21:15:00* Test Item Value Reference Range Interpretation Comments SODIUM (test code = NA) 136 mEq/L 134-147 N POTASSIUM (test code = K) 4.4 mEq/L 3.4-5.0 N CHLORIDE (test code = CL) 107 mEq/L 100-108 N CARBON DIOXIDE (test code = CO2) 23 mEq/L 21-33 N ANION GAP (test code = GAP) 10 0-20 N GLUCOSE (test code = GLU) 120 mg/dL 70-110 H BLOOD UREA NITROGEN (test code = BUN) 13 mg/dL 7-18 N GLOMERULAR FILTRATION RATE (test code = GFR) 49.7 70-80 L Units of measure = ml/min/1.73 m2 CREATININE (test code = CREAT) 1.4 mg/dL 0.6-1.3 H CALCIUM (test code = CA) 9.1 mg/dL 8.0-10.5 N URINALYSIS [id number] 21:15:00* Test Item Value Reference Range Interpretation Comments UA COLOR (test code = COLU) DALIA YEL/STRAW A UA APPEARANCE (test code = APPU) SL CLOUDY CLEAR UA GLUCOSE DIPSTICK (test code = DGLUU) NEGATIVE NEGATIVE UA BILIRUBIN DIPSTICK (test code = BILU) NEGATIVE NEGATIVE UA KETONE DIPSTICK (test code = KETU) TRACE NEGATIVE A UA SPECIFIC GRAVITY (test code = SGU) 1.026 1.005-1.030 N UA BLOOD DIPSTICK (test code = LEILANI) NEGATIVE NEGATIVE UA PH DIPSTICK (test code = JEET) 5.0 5.0-7.0 N UA PROTEIN DIPSTICK (test code = PROU) 1+ NEGATIVE A UA UROBILINIOGEN DIPSTICK (test code = URO) 4.0 mg/dL 0.2-1.0 A UA NITRITE DIPSTICK (test code = LI) NEGATIVE NEGATIVE UA LEUKOCYTE ESTERASE DIPSTICK (test code = LEUU) 1+ NEGA TIVE A UA RBC (test code = RBCU) 11-20 RBC/HPF 0-3 UA WBC NO REFLEX (test code = WBCUCL) 21-50 WBC/HPF 0-3 A UA BACTERIA (test code = BACU) NONE SEEN /HPF NONE SEEN UA SQUAMOUS CELLS (test code = SQU) 0-5 /HPF NONE SEEN UA HYALINE CAST (test code = HYALU) 6-10 /LPF NONE SEEN UA MUCUS (test code = MUCU) 4+ /LPF NONE SEEN A BASIC METABOLIC [id number] 21:13:00* Test Item Value Reference Range Interpretation Comments SODIUM (test code = NA) 136 mEq/L 134-147 N POTASSIUM (test code = K) 4.4 mEq/L 3.4-5.0 N CHLORIDE (test code = CL) 107 mEq/L 100-108 N CARBON DIOXIDE (test code = CO2) 23 mEq/L 21-33 N ANION GAP (test code = GAP) 10 0-20 N GLUCOSE (test code = GLU) 120 mg/dL 70-110 H BLOOD UREA NITROGEN (test code = BUN) 13 mg/dL 7-18 N GLOMERULAR FILTRATION RATE (test code = GFR) 70-80 CREATININE (test code = CREAT) mg/dL 0.6-1.3 CALCIUM (test code = CA) 9.1 mg/dL 8.0-10.5 N CBC W/AUTO [id number] 21:07:00* Test Item Value Reference Range Interpretation Comments WHITE BLOOD CELL (test code = WBC) 8.33 x10 3/uL 4.5-11.0 N RED BLOOD CELL (test code = RBC) 4.25 x10 6/uL 4.00-5.60 N HEMOGLOBIN (test code = HGB) 12.6 g/dL 12.5-16.9 N HEMATOCRIT (test code = HCT) 38.9 % 37.5-50.7 N MEAN CELL VOLUME (test code = MCV) 91.5 fL 81.0-99.0 N MEAN CELL HGB (test code = MCH) 29.6 pg 27.0-33.0 N MEAN CELL HGB CONCETRATION (test code = MCHC) 32.4 g/dL 33.0-37. 0 L RED CELL DISTRIBUTION WIDTH CV (test code = RDW) 16.7 % 11.5- 14.5 H RED CELL DISTRIBUTION WIDTH SD (test code = RDW-SD) 55.0 fL 37 .0-54.0 H PLATELET COUNT (test code = PLT) 250 x10 3/uL 150-400 N MEAN PLATELET VOLUME (test code = MPV) 10.8 fL 7.0-9.0 H NEUTROPHIL % (test code = NT%) 70.0 % 56.0-77.0 N IMMATURE GRANULOCYTE % (test code = IG%) 1.3 % 0.0-2.0 N LYMPHOCYTE % (test code = LY%) 16.1 % 14.0-32.0 N MONOCYTE % (test code = MO%) 11.2 % 4.8-9.0 H EOSINOPHIL % (test code = EO%) 1.0 % 0.3-3.7 N BASOPHIL % (test code = BA%) 0.4 % 0.0-2.0 N NUCLEATED RBC % (test code = NRBC%) 0.0 % 0-0 N NEUTROPHIL # (test code = NT#) 5.84 x10 3/uL 2.0-7.6 N IMMATURE GRANULOCYTE # (test code = IG#) 0.11 x10 3/uL 0.00-0.03 H LYMPHOCYTE # (test code = LY#) 1.34 x10 3/uL 1.0-3.8 N MONOCYTE # (test code = MO#) 0.93 x10 3/uL 0.1-0.8 H EOSINOPHIL # (test code = EO#) 0.08 x10 3/uL 0.0-0.2 N BASOPHIL # (test code = BA#) 0.03 x10 3/uL 0.0-0.2 N NUCLEATED RBC # (test code = NRBC#) 0.00 x10 3/uL 0.0-0.1 N MANUAL DIFF REQUIRED (test code = MDIFF) NO - CT ABD PELVIS [id number] 20:06:00 Name: TEDDY LESTER [facility] : 1945 Age/S: 74 / M [address] Unit #: [id number] Loc: [place] [address] Phys: Pastor Hoff MD Acct: [id number] Dis Date: Status: REG ER PHONE #: [phone] Exam Date: 03/17/20191926 FAX #: [phone] Reason: RLQ pain EXAMS: CPT CODE: [id number] CT ABD PELVIS W/CONT 16129 HISTORY: Right lower quadrant pain. COMPARISON: CT scan from November 08, 2018. Location: TH. CT of abdomen and pelvis with IV contrast: 100 mL of Isovue-370. Automated exposure control. CT abdomen: Lung bases are clear. The liver is enhancing homogeneously. No parenchymal mass or lesions measuring 14.5 cm in length. Patient is post cholecystectomy. The spleen is enhancing homogeneously. The stomach is distended incompletely with thickened distal esophagus. Atrophied pancreas enhanced homogeneously. Unremarkable adrenals. Kidneys are free from hydroureteronephrosis. Homogeneous enhancement. Bilateral excretion. Bosniak 2 lesion in the right anterior interpolar region measuring 1.8 cm with average Hounsfield unit measurement of 21. Bilateral Bosniak 1 lesions as well. No pathologic adenopathy. Well-opacified abdominal and pelvic vasculature with atherosclerotic change. Separate origins of the celiac, hepatic arteries. No bowel obstruction or colitis or diverticulitis or enteritis. Diverticulosis. CT PELVIS: High riding cecum. Appendix is not visible but no inflammation. No bowel obstruction. Extensive diverticulosis of the sigmoid colon without diverticulitis. No free fluid or free air or abscess. Moderately thickened urinary bladder wall. The nondepe ndent wall measured up to 9 mm. Correlate for cystitis. Prostate is not enlarged. No pelvic pathologic adenopathy. Patulous fat-containing ventral canals. No. Subcutaneous tissues and the musculature are normal in appearance. No PAGE 1 Signed Report (CONTINUED) Name: TEDDY LESTER [facility] : 1945 Age/S: 74 / M [address] [facility] Unit #: [id number] Loc: [place] [address] Phys: Pastor Hoff MD Acct: [id number] Dis Date: Status: REG ER PHONE #: [phone] Exam Date: 03/17/2019 192 FAX #: [phone] Reason: RLQ pain EXAMS: CPT CODE: [id number] CT ABD PELVIS W/CONT 03974 < Continued> lytic or blastic lesions are noted within the bony skeleton. Metallic screws stabilizing the right SI joint. Osteoporosis. Vertebroplasty changes at multiple levels throughout the dorsal and the lumbar spine with moderate loss of height. Osteoporosis. IMPRESSION: Circumferentially thickened urinary bladder wall measuring up to 9 mm in the nondependent portion. Correlate for cystitis. No hydroureteronephrosis with multiple Bosniak 1 lesions. Bosniak 2 lesion in the anterior right interpolar region measuring 1.8 cm with average Hounsfield unit measurement of 21. Extensive diverticulosis without diverticulitis. Appendix is not seen but no inflammation. No free fluid or free air or abscess. at 2005 Reported and signed by: Mike Alarcon M.D. CC: Manuelito Ford MD; Pastor Hoff MD Technologist:Cedrick Silva RT(R)(CT) CTDI: DLP: Trnscb Date/Time: 03/17/2019 (2005) t.[email or web address] Orig Print D/T: S: 03/17/2019 (2008) PAGE 2 Signed Report BASIC METABOLIC [id number] 19:04:00* Test Item Value Reference Range Interpretation Comments SODIUM (test code = NA) 143 mmol/L 136-145 N POTASSIUM (test code = K) 4.1 mmol/L 3.5-5.1 N CHLORIDE (test code = CL) 110.0 mmol/L 98-107 H CARBON DIOXIDE (test code = CO2) 20.0 mmol/L 21-32 L ANION GAP (test code = GAP) 17.1 10-20 N GLUCOSE (test code = GLU) 102 mg/dL 74-106 N BLOOD UREA NITROGEN (test code = BUN) 19 mg/dL 7-18 H GLOMERULAR FILTRATION RATE (test code = GFR) 54 mL/min >=60 Estimated GFR by using Modified MDRD formula.Chronic kidney disease is defined as either kidney damageor GFR <60 mL/min/1.73 m2 for >3 months. CREATININE (test code = CREAT) 1.30 mg/dL 0.7-1.3 N BUN/CREATININE RATIO (test code = BUN/CREA) 14.6 10-20 N CALCIUM (test code = CA) 8.9 mg/dL 8.5-10.1 N HEPATIC FUNCTION [id number] 19:04:00* Test Item Value Reference Range Interpretation Comments TOTAL PROTEIN (test code = PROT) 7.7 gram/dL 6.4-8.2 N ALBUMIN (test code = ALB) 3.4 g/dL 3.4-5.0 N GLOBULIN (test code = GLOB) 4.3 gram/dL 2.7-4.2 H ALBUMIN/GLOBULIN RATIO (test code = A/G) 0.8 0.75-1.50 N BILIRUBIN TOTAL (test code = BILT) 0.70 mg/dL 0.0-1.0 N BILIRUBIN DIRECT (test code = BILD) 0.23 mg/dL 0.0-0.20 H SGOT/AST (test code = AST) 13 IUnit/L 15-37 L SGPT/ALT (test code = ALT) 23 IUnit/L 12-78 N ALKALINE PHOSPHATASE TOTAL (test code = ALKP) 134 IUnit/L 45-117 H Note change in reference range due to change in reagent. [id number] 19:04:00* Test Item Value Reference Range Interpretation Comments LIPASE (test code = LIP) 40 U/L 73.0-393.0 L [id number] 19:04:00* Test Item Value Reference Range Interpretation Comments TROPONIN-I (test code = TROPI) <0.015 ng/mL 0-0.045 N BASIC METABOLIC [id number] 18:51:00* Test Item Value Reference Range Interpretation Comments SODIUM (test code = NA) 143 mmol/L 136-145 N POTASSIUM (test code = K) 4.1 mmol/L 3.5-5.1 N CHLORIDE (test code = CL) 110.0 mmol/L 98-107 H CARBON DIOXIDE (test code = CO2) mmol/L 21-32 ANION GAP (test code = GAP) 10-20 GLUCOSE (test code = GLU) mg/dL 74-106 BLOOD UREA NITROGEN (test code = BUN) mg/dL 7-18 GLOMERULAR FILTRATION RATE (test code = GFR) mL/min >=60 CREATININE (test code = CREAT) mg/dL 0.7-1.3 BUN/CREATININE RATIO (test code = BUN/CREA) 10-20 CALCIUM (test code = CA) mg/dL 8.5-10.1 HEPATIC FUNCTION [id number] 18:51:00* Test Item Value Reference Range Interpretation Comments TOTAL PROTEIN (test code = PROT) gram/dL 6.4-8.2 ALBUMIN (test code = ALB) g/dL 3.4-5.0 GLOBULIN (test code = GLOB) gram/dL 2.7-4.2 ALBUMIN/GLOBULIN RATIO (test code = A/G) 0.75-1.50 BILIRUBIN TOTAL (test code = BILT) mg/dL 0.0-1.0 BILIRUBIN DIRECT (test code = BILD) mg/dL 0.0-0.20 SGOT/AST (test code = AST) IUnit/L 15-37 SGPT/ALT (test code = ALT) IUnit/L 12-78 ALKALINE PHOSPHATASE TOTAL (test code = ALKP) IUnit/L 45-117 [id number] 18:51:00* Test Item Value Reference Range Interpretation Comments LIPASE (test code = LIP) U/L 73.0-393.0 [id number] 18:51:00* Test Item Value Reference Range Interpretation Comments TROPONIN-I (test code = TROPI) ng/mL 0-0.045 CBC W/O [id number] 18:41:00* Test Item Value Reference Range Interpretation Comments WHITE BLOOD CELL (test code = WBC) 7.4 K/mm3 4.5-12.5 N RED BLOOD CELL (test code = RBC) 4.52 mill/mm3 4.0-5.8 N HEMOGLOBIN (test code = HGB) 13.3 gram/dL 13.0-17.5 N HEMATOCRIT (test code = HCT) 40.1 % 42.0-52.0 L MEAN CELL VOLUME (test code = MCV) 88.7 fL 80-98 N MEAN CELL HGB (test code = MCH) 29.4 picogram 27.0-33.0 N MEAN CELL HGB CONCETRATION (test code = MCHC) 33.2 gram/dL 33.0-36. 0 N RED CELL DISTRIBUTION WIDTH (test code = RDW) 16.6 % 11.6-16. 2 H PLATELET COUNT (test code = PLT) 235 K/mm3 150-450 N MEAN PLATELET VOLUME (test code = MPV) 11.0 fL 6.7-11.0 N URINALYSIS [id number] 18:39:00* Test Item Value Reference Range Interpretation Comments UA COLOR (test code = COLU) YELLOW YELLOW UA APPEARANCE (test code = APPU) CLEAR CLEAR UA GLUCOSE DIPSTICK (test code = DGLUU) NEGATIVE mg/dL NEGATIVE UA BILIRUBIN DIPSTICK (test code = BILU) NEGATIVE mg/dL NEGATIVE UA KETONE DIPSTICK (test code = KETU) NEGATIVE mg/dL NEGATIVE UA SPECIFIC GRAVITY (test code = SGU) 1.021 1.001-1.035 UA BLOOD DIPSTICK (test code = LEILANI) Negative mg/dL NEGATIVE UA PH DIPSTICK (test code = JEET) 5.5 5.0-8.0 UA PROTEIN DIPSTICK (test code = PROU) 20 (Trace) mg/dL NEGATIVE A UA UROBILINIOGEN DIPSTICK (test code = URO) Normal mg/dL NEGATIVE UA NITRITE DIPSTICK (test code = LI) NEGATIVE NEGATIVE UA LEUKOCYTE ESTERASE W REFLEX (test code = LEUUR) 25 [place]/uL (Trace) [place]/uL NEGATIVE A UA WBC (test code = WBCU) 11-20 per HPF 0-5 A UA RBC (test code = RBCU) 0-2 #/HPF 0-5 UA EPITHELIAL CELLS (test code = EPIU) FEW per HPF FEW UA BACTERIA (test code = BACU) NONE SEEN #/HPF NONE UA HYALINE CAST (test code = HYALU) 6-10 #/LPF 0-5 A UA MUCUS (test code = MUCU) FEW #/LPF FEW Urine Source? Clean CatchURINALYSIS [id number] 18:38:00* Test Item Value Reference Range Interpretation Comments UA COLOR (test code = COLU) YELLOW YELLOW UA APPEARANCE (test code = APPU) CLEAR CLEAR UA GLUCOSE DIPSTICK (test code = DGLUU) NEGATIVE mg/dL NEGATIVE UA BILIRUBIN DIPSTICK (test code = BILU) NEGATIVE mg/dL NEGATIVE UA KETONE DIPSTICK (test code = KETU) NEGATIVE mg/dL NEGATIVE UA SPECIFIC GRAVITY (test code = SGU) 1.021 1.001-1.035 UA BLOOD DIPSTICK (test code = LEILANI) Negative mg/dL NEGATIVE UA PH DIPSTICK (test code = JEET) 5.5 5.0-8.0 UA PROTEIN DIPSTICK (test code = PROU) 20 (Trace) mg/dL NEGATIVE A UA UROBILINIOGEN DIPSTICK (test code = URO) Normal mg/dL NEGATIVE UA NITRITE DIPSTICK (test code = LI) NEGATIVE NEGATIVE UA LEUKOCYTE ESTERASE W REFLEX (test code = LEUUR) 25 Chayito/uL (Trace) Chayito/uL NEGATIVE A UA WBC (test code = WBCU) per HPF 0-5 UA RBC (test code = RBCU) per HPF 0-5 UA EPITHELIAL CELLS (test code = EPIU) per HPF Few UA BACTERIA (test code = BACU) per HPF NONE Urine Source? Clean CatchCBC W/O [id number] 18:34:00* Test Item Value Reference Range Interpretation Comments WHITE BLOOD CELL (test code = WBC) K/mm3 4.5-12.5 RED BLOOD CELL (test code = RBC) mill/mm3 4.0-5.8 HEMOGLOBIN (test code = HGB) 13.3 gram/dL 13.0-17.5 N HEMATOCRIT (test code = HCT) % 42.0-52.0 MEAN CELL VOLUME (test code = MCV) fL 80-98 MEAN CELL HGB (test code = MCH) picogram 27.0-33.0 MEAN CELL HGB CONCETRATION (test code = MCHC) gram/dL 33.0-36. 0 RED CELL DISTRIBUTION WIDTH (test code = RDW) % 11.6-16. 2 PLATELET COUNT (test code = PLT) K/mm3 150-450 MEAN PLATELET VOLUME (test code = MPV) fL 6.7-11.0 CT ABD/PEL WO [id number] 00:06:00 [place] [address] Patient Name: TEDDY LESTER MR #: [id number] : 1945 Age/Sex: 74/M Req #: [id number] Adm Physician: Ordered by: RUBEN FRAGOSO DO Report #: [id number] Location: [facility] Room/Bed: Procedure: [id number] HO PD/CT ABD/PEL WO CONTRAST-HOPD Exam Date: 03/06/19 E xam Time: 2308 REPORT STATUS: Antonieta d EXAM: CT Abdomen and Pelvis WITHOUT contrast INDICATION: Bilateral flan k pain/epigastric pain COMPARISON: Abdominal CT 11/19/2018. TECHNIQUE: Ab domen and pelvis were scanned utilizing a multidetector helical scanner from t he lung base to the pubic symphysis without administration of IV contrast. Abs ence of intravenous contrast decreases sensitivity for detection of focal lesi ons and vascular pathology. Coronal and sagittal reformations were obtained. R outine protocol was performed. IV CONTRAST: None ORAL CONTRAST: N one COMPLICATIONS: None RADIATION DOSE: Total DLP: 772 mGy*cm Estimated effective dose: (DLP x 0.015 x size factor) mSv CTDIvol has been reviewed. It is below the limits set by the Radiation Prot ocol Committee (RPC). Dose modulation, iterative reconstruction, and/or w eight based adjustment of the mA/kV was utilized to reduce the radiation dose to as low as reasonably achievable. FINDINGS: LINES and TUBES: None . LOWER THORAX: Triple vessel coronary artery calcific atherosclerosis. HEPATOBILIARY: No focal hepatic lesions. No biliary ductal dilation. GALLBLADDER: There are cholecystectomy clips. SPLEEN: No splenomega ly. PANCREAS: No focal masses or ductal dilatation. ADRENALS: No ad renal nodules KIDNEYS/URETERS: No hydronephrosis. Small simple cysts i n the kidneys. No cystic or solid mass lesions. No stones. GI TRACT: No abnormal distention, wall thickening, or evidence of bowel obstruction. There are diverticula within the colon without evidence of diverticulitis. Append ix is not clearly identified. There is however no fat stranding or adenopathy in the right lower quadrant to suggest appendicitis. PELVIC ORGANS/BLADDER: Hysterectomy. No adnexal masses. Circumferential bladder wall thickening. Tra ce perivesicular fat stranding. LYMPH NODES: No lymphadenopathy. VESSE LS: There is moderate atherosclerotic disease in the aorta and major arterial branches. PERITONEUM / RETROPERITONEUM: No free air or fluid. BONES: S crew fixation of the right sacroiliac joint. No evidence of hardware complicat ion. Kyphoplasty material in the T12-L5 vertebral bodies with multilevel verte bral body compression fractures, stable compared to prior. Degenerative change s in spine. Low bone mineral density. SOFT TISSUES: Unremarkable. IMPRESSION: Urinary bladder findings can be seen with cystitis. Colonic diverticulosis without diverticulitis. Chronic findings as above. Signed by: Butch Enciso DO on 03/07/2019 12:16 AM Dictated By: BUTCH ENCISO DO T ranscribed By: ERICH on 03/07/1915 COPY TO: RUBEN FRAGOSO DO URINALYSIS [id number] 18:13:00* Test Item Value Reference Range Interpretation Comments UA COLOR (test code = COLU) YELLOW YELLOW UA APPEARANCE (test code = APPU) CLEAR CLEAR UA GLUCOSE DIPSTICK (test code = DGLUU) NEGATIVE mg/dL NEGATIVE UA BILIRUBIN DIPSTICK (test code = BILU) NEGATIVE mg/dL NEGATIVE UA KETONE DIPSTICK (test code = KETU) NEGATIVE mg/dL NEGATIVE UA SPECIFIC GRAVITY (test code = SGU) 1.027 1.001-1.035 UA BLOOD DIPSTICK (test code = LEILANI) Negative mg/dL NEGATIVE UA PH DIPSTICK (test code = JEET) 5.0 5.0-8.0 UA PROTEIN DIPSTICK (test code = PROU) 30 (1+) mg/dL NEGATIVE A UA UROBILINIOGEN DIPSTICK (test code = URO) Normal mg/dL NEGATIVE UA NITRITE DIPSTICK (test code = LI) NEGATIVE NEGATIVE UA LEUKOCYTE ESTERASE W REFLEX (test code = LEUUR) NEGATIVE Chayito/uL NEGATIVE UA WBC (test code = WBCU) 6-10 per HPF 0-5 A UA RBC (test code = RBCU) 0-2 #/HPF 0-5 UA EPITHELIAL CELLS (test code = EPIU) FEW per HPF FEW UA BACTERIA (test code = BACU) NONE SEEN #/HPF NONE UA HYALINE CAST (test code = HYALU) 11-20 #/LPF 0-5 A UA MUCUS (test code = MUCU) MANY #/LPF FEW A Urine Source? Clean CatchPROTHROMBIN [id number] 17:53:00* Test Item Value Reference Range Interpretation Comments PROTHROMBIN TIME PATIENT (test code = PTP) 12.7 seconds 9.0-14.0 N INTERNATIONAL NORMAL RATIO (test code = INR) 1.1 0.8-1.2 N The therapeutic range for oral anticoagulant therapy formost indications is an international normalized ratio (INR)of between 2.0 and 3.0. The recommended therapeutic INRrange for various clinical situations is listed below: Clinical Situation INR range Pulmonary e mbolism treatment (2.0-3.0)Venous thrombosis treatmentVenous thrombosis prophylaxis (high risk surgery)Prevention of systemic embolism from: Acute myocardial infarction Valvular heart disease Atrial fibrillation Mechanical prosthetic heart valves (2.5-3.5) IS PATIENT ON ANTICOAGULANTS? NTHROMBOPLASTIN TIME [id number] 17:53:00* Test Item Value Reference Range Interpretation Comments THROMBOPLASTIN TIME PARTIAL (test code = PTT) 34.6 seconds 25.0-36. 5 N IS PATIENT ON ANTICOAGULANTS? NBASIC METABOLIC [id number] 17:49:00* Test Item Value Reference Range Interpretation Comments SODIUM (test code = NA) 139 mmol/L 136-145 N POTASSIUM (test code = K) 4.3 mmol/L 3.5-5.1 N CHLORIDE (test code = CL) 106.0 mmol/L 98-107 N CARBON DIOXIDE (test code = CO2) 23.0 mmol/L 21-32 N ANION GAP (test code = GAP) 14.3 10-20 N GLUCOSE (test code = GLU) 114 mg/dL 74-106 H BLOOD UREA NITROGEN (test code = BUN) 21 mg/dL 7-18 H GLOMERULAR FILTRATION RATE (test code = GFR) 50 mL/min >=60 Estimated GFR by using Modified MDRD formula.Chronic kidney disease is defined as either kidney damageor GFR <60 mL/min/1.73 m2 for >3 months. CREATININE (test code = CREAT) 1.40 mg/dL 0.7-1.3 H BUN/CREATININE RATIO (test code = BUN/CREA) 15.0 10-20 N CALCIUM (test code = CA) 9.3 mg/dL 8.5-10.1 N HEPATIC FUNCTION [id number] 17:49:00* Test Item Value Reference Range Interpretation Comments TOTAL PROTEIN (test code = PROT) 8.3 gram/dL 6.4-8.2 H ALBUMIN (test code = ALB) 3.7 g/dL 3.4-5.0 N GLOBULIN (test code = GLOB) 4.6 gram/dL 2.7-4.2 H ALBUMIN/GLOBULIN RATIO (test code = A/G) 0.8 0.75-1.50 N BILIRUBIN TOTAL (test code = BILT) 0.80 mg/dL 0.0-1.0 N BILIRUBIN DIRECT (test code = BILD) 0.27 mg/dL 0.0-0.20 H SGOT/AST (test code = AST) 25 IUnit/L 15-37 N SGPT/ALT (test code = ALT) 30 IUnit/L 12-78 N ALKALINE PHOSPHATASE TOTAL (test code = ALKP) 134 IUnit/L 45-117 H Note change in reference range due to change in reagent. [id number] 17:49:00* Test Item Value Reference Range Interpretation Comments LIPASE (test code = LIP) 25 U/L 73.0-393.0 L LACTIC [id number] 17:49:00* Test Item Value Reference Range Interpretation Comments LACTIC ACID (test code = LACT) 1.9 mmol/L 0.4-1.9 N BASIC METABOLIC [id number] 17:41:00* Test Item Value Reference Range Interpretation Comments SODIUM (test code = NA) 139 mmol/L 136-145 N POTASSIUM (test code = K) 4.3 mmol/L 3.5-5.1 N CHLORIDE (test code = CL) 106.0 mmol/L 98-107 N CARBON DIOXIDE (test code = CO2) mmol/L 21-32 ANION GAP (test code = GAP) 10-20 GLUCOSE (test code = GLU) mg/dL 74-106 BLOOD UREA NITROGEN (test code = BUN) mg/dL 7-18 GLOMERULAR FILTRATION RATE (test code = GFR) mL/min >=60 CREATININE (test code = CREAT) mg/dL 0.7-1.3 BUN/CREATININE RATIO (test code = BUN/CREA) 10-20 CALCIUM (test code = CA) mg/dL 8.5-10.1 HEPATIC FUNCTION [id number] 17:41:00* Test Item Value Reference Range Interpretation Comments TOTAL PROTEIN (test code = PROT) gram/dL 6.4-8.2 ALBUMIN (test code = ALB) g/dL 3.4-5.0 GLOBULIN (test code = GLOB) gram/dL 2.7-4.2 ALBUMIN/GLOBULIN RATIO (test code = A/G) 0.75-1.50 BILIRUBIN TOTAL (test code = BILT) mg/dL 0.0-1.0 BILIRUBIN DIRECT (test code = BILD) mg/dL 0.0-0.20 SGOT/AST (test code = AST) IUnit/L 15-37 SGPT/ALT (test code = ALT) IUnit/L 12-78 ALKALINE PHOSPHATASE TOTAL (test code = ALKP) IUnit/L 45-117 [id number] 17:41:00* Test Item Value Reference Range Interpretation Comments LIPASE (test code = LIP) U/L 73.0-393.0 CBC W/O [id number] 17:34:00* Test Item Value Reference Range Interpretation Comments WHITE BLOOD CELL (test code = WBC) 8.9 K/mm3 4.5-12.5 N RED BLOOD CELL (test code = RBC) 4.51 mill/mm3 4.0-5.8 N HEMOGLOBIN (test code = HGB) 13.5 gram/dL 13.0-17.5 N HEMATOCRIT (test code = HCT) 39.7 % 42.0-52.0 L MEAN CELL VOLUME (test code = MCV) 88.0 fL 80-98 N MEAN CELL HGB (test code = MCH) 29.9 picogram 27.0-33.0 N MEAN CELL HGB CONCETRATION (test code = MCHC) 34.0 gram/dL 33.0-36. 0 N RED CELL DISTRIBUTION WIDTH (test code = RDW) 16.4 % 11.6-16. 2 H PLATELET COUNT (test code = PLT) 215 K/mm3 150-450 N MEAN PLATELET VOLUME (test code = MPV) 10.6 fL 6.7-11.0 N CBC W/O [id number] 17:31:00* Test Item Value Reference Range Interpretation Comments WHITE BLOOD CELL (test code = WBC) K/mm3 4.5-12.5 RED BLOOD CELL (test code = RBC) mill/mm3 4.0-5.8 HEMOGLOBIN (test code = HGB) 13.5 gram/dL 13.0-17.5 N HEMATOCRIT (test code = HCT) % 42.0-52.0 MEAN CELL VOLUME (test code = MCV) fL 80-98 MEAN CELL HGB (test code = MCH) picogram 27.0-33.0 MEAN CELL HGB CONCETRATION (test code = MCHC) gram/dL 33.0-36. 0 RED CELL DISTRIBUTION WIDTH (test code = RDW) % 11.6-16. 2 PLATELET COUNT (test code = PLT) K/mm3 150-450 MEAN PLATELET VOLUME (test code = MPV) fL 6.7-11.0 ABDOMEN-1VIEW (KUB)2019-01-22 05:09:00 [place] [address] Patient Name: TEDDY LESTER MR #: [id number] : 1945 Age/Sex: 73/M Req #: [id number] Adm Physician: Ordered by: DORY CLOUD MD Report #: [id number] Location: ER Room/Bed: Procedure: [id number] DX/ABDOMEN-1VIEW (KUB) Exam Date: 01/22/19 Exam Devon e: 0435 REPORT STATUS: Signed Ab domen/GEE INDICATION: CONSTIPATION [id number] COMPARISON: CT abdomen/pelvis 11/19/2018. FINDINGS: Medical Devices: Visualized me gaurav sternotomy wires are intact. Cholecystectomy clips in the right upper michelle drant. 2 screws transfix the right SI joint and appear intact. Bowel: [place] el gas pattern is unremarkable. No dilated bowel loops or pneumatosis. No sign ificant stool burden in the large bowel. Free air: None Abdominal jose cifications: None Organomegaly: None Lung bases: Clear Bones: Dif fuse demineralization. Methylmethacrylate is present from T11 to L4. Stable co mpression deformity of L1. IMPRESSION: No significant stool burden in the large bowel. Unremarkable bowel gas pattern. Stable medical devices as described above. Signed by: Dr. Ana Davis MD on 01/22/2019 5:12 AM Dictated By: ANA DAVIS MD 1 Transcribed By: ERICH on 01/22/19511 COPY TO : DORY CLOUD MD Stress Test - Treadmill [id number] 14:41:00 [place] [address] Patient Name : TEDDY LESTER MR #: [id number] : 1945 Age/Sex: 73/M Adm Physician : RAND KENT MD Admit Date : 12/21/18 Location : [place] Room/Bed : __ REPORT: Myoview Stress Test DATE OF STUDY: 12/21/2018 09:44:00 Stress Test - Treadmill ONLY PROCEDURE TITLE: Rest/stress single isotope SPECT imaging with pharmacolo gic stress and gated SPECT imaging. INDICATION: Coronary artery diseas e. PROCEDURE IN DETAIL: Pharmacologic stress testing was performed with r egadenoson per protocol. The heart rate was 88 beats per minute at rest and i ncreased to 98 beats per minute during the regadenoson infusion. The rest blo od pressure was 119/81 mmHg and increased to 141/69 mmHg, which is a normal re sponse. The resting electrocardiogram demonstrated normal sinus rhythm. Ther e were no ST-segment changes consistent with myocardial ischemia. Myoca rdial perfusion imaging was performed at rest following injection of 10.8 mCi of tetrofosmin. At peak pharmacologic effect, the patient was injected with 31 mCi of tetrofosmin. Gated post-stress tomographic imaging was performed. FINDINGS: The overall quality of study is good. Left ventricle was normal s ize on the rest and stress studies. SPECT images demonstrate a small mild per fusion defect in the inferior wall on rest and stress. Gated SPECT imaging re veals normal myocardial thickening and wall motion. Left ventricular ejection fraction was calculated to be 58%. IMPRESSION: Myocardial perfusion i maging is abnormal. There is a small nontransmural scar in the inferior wall. Overall, left ventricular systolic function was normal without regional wall motion abnormalities. Rand Kent MD ABS/RAIN /[id number] Signature Date Dictated By: RAND KENT MD Transcribed By: RAIN on 12/27/18 <Electronically signed by RAND KENT MD><<Signature on File>>01/23/19 7227 COPY TO: CT WALDO/SHARON WO [id number] 10:06:00 [facility] [address] [place] [address] Patient Name: TEDDY LESTER MR #: [id number] : 1945 Age/Sex: 73/M Req #: [id number] Adm Physician: Ordered by: KARI DICKINSON MD Report #: [id number] Location: [facility] Room/Bed: Procedure: 04 HOPD/CT ABD/PEL WO CONTRAST-HOPD Exam Date: 11/19/18 Exam Time: 929 REPORT STATUS: Signed EXAM: CT Abdomen and Pelvis WITHOUT contrast INDICATION: [id number] COMPARISON: CT chest 09/30/2018, KUB 08/31/2018, CTA abd omen pelvis 06/01/2018, CT abdomen and pelvis 04/02/2018 TECHNIQUE: Abdomen a nd pelvis were scanned utilizing a multidetector helical scanner from the lung base to the pubic symphysis without administration of IV contrast. Absence of intravenous contrast decreases sensitivity for detection of focal lesions and vascular pathology. Coronal and sagittal reformations were obtained. Routine protocol was performed. IV CONTRAST: None. ORAL CON TRAST: None RADIATION DOSE: Total DLP: 766.1 mGy*cm Estimated effective dose: (DLP x 0.015 x size factor) mSv COMPLIC ATIONS: None FINDINGS: LINES and TUBES: None. LOWER THORAX: Lung bases are clear. Extensive coronary artery calcification, unchanged. Partially visualized median sternotomy wires. HEPATOBILIARY: No focal hepatic lesions. No biliary ductal dilation. GALLBLADDER: No radio-opaque stones o r sludge. No wall thickening. SPLEEN: No splenomegaly. PANCREAS: No focal masses or ductal dilatation. ADRENALS: No adrenal nodules KIDNEYS/URETERS: No hydronephrosis. Stable bilateral renal cysts measuring up to 4.3 cm on the left. Mild nonspecific bilateral perinephric fluid collection and fat stranding. No stones. GI TRACT: No abnormal distention, wall thi ckening, or evidence of bowel obstruction. Diffuse diverticulosis throughout the large and small bowel. This is unchanged. No diverticulitis. Appendix is normal. PELVIC ORGANS/BLADDER: The urinary bladder appears unremarkable. A few prostate calcifications. The prostate normal in size. LYMPH NODES: No lymphadenopathy. VESSELS: Moderate atherosclerotic calcifications of the a bdominal aorta and pelvic arteries without aneurysm. PERITONEUM / RETROPE RITONEUM: No free air or fluid. BONES: Advanced multilevel degenerative beulah nges of the lumbar spine with multiple fracture deformities, status post kypho plasty from T11 to L4. SOFT TISSUES: Unremarkable. IMPRESS ION: 1. Unremarkable urinary bladder. 2. Mild bilateral perinephric fat s tranding and fluid collections are nonspecific but may reflect mild pyelonephr itis. No calcified stones or hydronephrosis. 3. Diffuse small and large bow el diverticulosis without diverticulitis, unchanged. Signed by: Dr. Jessica Cintron M.D. 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 TECHNIQUE: Venous duplex ba scale, color Doppler and spectral Doppler ultrasound of the bilateral lower extremities was performed. COMPARISONS: None similar FINDINGS: Right: The common femoral, superficial femoral, popliteal, and posterior ti bial veins are completely compressible, reveal spontaneous and phasic flow and augmentation. The greater saphenous vein reveals no thrombu s. Left: The common femoral, superficial femoral, po pliteal, and posterior tibial veins are completely compressible, reveal sp ontaneous and phasic flow and augmentation. The greater sa phenous vein reveals no thrombus. IMPRESSION: 1. There is no DVT detected in either lower extremity. Electronically Signed by Pedro Luis Brand on 11/13 at 1619 Reported and signed by: Butch Brand D.O. CC: Mitzy Douglass MD; Manuelito Ford; Bora cesar NP Technologist: Cl Yang Trnscb Timbo e/Time: 11/13/2018 (161) [id number] Orig Print D/T: S: (3583) Probe: PAGE 1 S igned Report ARTERIAL BLOOD [id number] 11:47:00 * Test Item Value Reference Range Interpretation Comments ARTERIAL BLOOD GAS PH (test code = PHA) 7.441 7.35-7.45 N ARTERIAL BLOOD GAS PCO2 (test code = PCO2A) 33.5 mmHg 35-45 L ARTERIAL BLOOD GAS PO2 (test code = PO2A) 48 mmHg 80-100 L BICARBONATE TOTAL HCO3 (test code = HCO3) 22.8 mmol/L 22.0-26.0 N BASE EXCESS (test code = VY) -1.0 mmol/L -4-4 N ABG O2 SATURATION (test code = SATA) 86 % 90-100 L ABG DELIVERY (test code = REJI) Room Air Performed by certified fun house operator at [facility] ABG TEMPERATURE (test code = TEMPA) 98.6 F ABG SITE (test code = SITEA) R Rad TCO2 ARTERIAL (test code = TCO2A) 24 ARTERIAL BLOOD [id number] 11:07:00* Test Item Value Reference Range Interpretation Comments ARTERIAL BLOOD GAS PH (test code = PHA) 7.405 7.35-7.45 N ARTERIAL BLOOD GAS PCO2 (test code = PCO2A) 36.4 mmHg 35-45 N ARTERIAL BLOOD GAS PO2 (test code = PO2A) 28 mmHg 80-100 LL BICARBONATE TOTAL HCO3 (test code = HCO3) 22.9 mmol/L 22.0-26.0 N BASE EXCESS (test code = VY) -2.0 mmol/L -4-4 N ABG O2 SATURATION (test code = SATA) 54 % 90-100 L ABG DELIVERY (test code = REJI) Room Air Performed by certified fun house operator at [facility] ABG TEMPERATURE (test code = TEMPA) 98.2 F ABG SITE (test code = SITEA) R Rad TCO2 ARTERIAL (test code = TCO2A) 24 - CT ANGIO [id number] 09:56:00 Name: TEDDY LESTER [facility] : 1945 Age/S: 73 / M [address] [place], [place] [address]vd Unit #: [id number] Loc: [place] [address] Phys: Eve Zaragoza MD Acct: [id number] Dis Date: Status: REG ER PHONE #: [phone] Exam Date: 11/13/2018904 FAX #: [phone] Reason: hypoxia, elevated ddimer EXAMS: CPT CODE: [id number] CT ANGIO CHEST 13977 PROCEDURE: CTA CHEST INDICATION: Hypoxia, elevated D-dimer COMPARISON: X-ray same day. TECHNIQUE: CTA of the pulmonary arteries was performed with 100 ml Isovue 300 intravenous contrast. Helical imaging performed apices to the lung bases. Multiplanar and 3-D MIP angiographic reconstructions are reviewed. CT imaging performed at this location utilizes radiation dose optimization techniques which include one or more of the following: - Automated exposure control -Adjustment of the mA and/or kV according to patient size -Use of iterative reconstruction technique CT Radiation Dose DLP 405.56 mGy-cm FINDINGS: PULMONARY ARTERIES: Normal enhancement without intraluminal filling defect. MEDIASTINUM: Calcified lymph nodes likely represent old granulomatous disease. Largest measures 11 mm in short axis. Aorta has normal caliber. LUNGS: Biapical pleural thickening is present. No consolidation, pleural effusion, or pneumothorax is present. UPPER ABDOMEN: Survey may be limited by early phase of contrast enhancement. Fluid- filled colon is noted. Previous cholecystectomy has been performed. Left kidney is not evaluated. MUSCULOSKELETAL: There are moderate degenerative changes throughout the thoracic spine with multiple com pression fractures, likely old. Previous sternotomy has been performed. IMPRESSION: 1. No pulmonary embolus. 2. No acu te process within chest. 3. Old granulomatous disease. 4. Dege nerative spine. 5. Previous cholecystectomy.. PAGE 1 Signed Report (CONTINUED) Name: TEDDY ALVAREZ [facility] [place] : 1945 Age /S: 73 / M [address] [place] [address] Blvd Unit #: [id number] Loc: [place] [address] Phys: Eve Zaragoza MD Acct: [id number] Dis Date: Status: REG ER PHONE #: [phone] Exam Date: 11/13/2018904 FAX #: [phone] Reason: hypoxia, elevated ddimer EXAMS: CPT CODE: [id number] CT ANGIO CHEST 31485 <Continued> SL: [id number] at 0956 Reported and signed by: Steve Ventura M.D. CC: Eve Zaragoza MD; Manuelito Ford Technologist:RT Edgar(R)(CT) CTDI: DLP: Trnscb Date/Time: 11/13/2018 (0956) [email or web address] Orig Print D/T: S: 11/13/2018 (59) PAGE 2 Signed Report B-TYPE NATRIURETIC [id number] 09:16:00* Test Item Value Reference Range Interpretation Comments B-TYPE NATRIURETIC PEPTIDE (test code = BNP) 38.3 PG/ML 0-100 N [id number] 08:53:00* Test Item Value Reference Range Interpretation Comments D-DIMER (test code = DDIMER) 953 ng/mlFEU <=500 HH THROMBOSIS AND/OR PULMONARY EMBOLISM AND THE CLINICAL CUT- OFF VALUE FOR EXCLUSION (500 ng/mL FEU) OF THESE CONDITIONSIS VALIDATED BY THE RELIABILITY SPECIALIST OF THE METHOD. A NEGATIVE D-DIMER RESULT WHEN COMBINED WITH A CLINICALASSESSMENT OF LOW PRETEST PROBABILITY HAS BEEN SHOWN TO HAVEA HIGH NEGATIVE PREDICTIVE VALUE OF DVT OR PE. D-DIMER VALUES >500 ng/mL FEU ARE NOT DIAGNOSTIC FOR DVT, PEor DIC WITHOUT OTHER CONFIRMATORY TESTS AND APPROPRIATECLINICAL EUALUATIONS. TROPONIN-I [id number] 08:34:00* Test Item Value Reference Range Interpretation Comments TROPONIN-I RAPID (test code = TROPIRAP) 0.00 ng/mL 0.00-0.08 N Performed by certified fun house operator at [facility] Negative: <= 0.08 Positive: >= 0.09An elevated troponin value alone is not sufficient todiagnose a myocardial infarction. Rather, the patient sclinical presentation (history, physical exam) and ECGshould be used in conjunction with troponin in thediagnostic evaluation of suspected myocardial infarction. Aserial sampling protocol is recommended to facilitate the identification of temporal changes in troponin levels characteristic of [facility]. - XR CHEST 1 [id number] 08:18:00 FAX: Eve Zaragoza MD [phone] [place]: St: [facility] FAX: Manuelito Padgett MD [phone] Name: TREVONTEDDY SERGEY [facility] : 1945 Age/S: 73/M [address] [place] [address] Blvd Unit #: [id number] Loc: [address] [address] Phys: Eve Zaragoza MD Acct: [id number] Dis Date: Status: REG ER PHONE #: [phone] Exam Date: 11/13/2018 0813 FAX #: [phone] Reason: SOB EXAMS: CPT CODE: [id number] XR CHEST 1 V [address]7832 CHEST 1 VIEW: 11/13/2018 COMPARISON: November 07, 2018 CLINICAL HISTORY: SOB FINDINGS: Median sternotomy wires are present. Heart is stable in size. Tortuosity of the thoracic aorta is again seen. Lungs are clear, except for minor areas of discoid atelectasis in left midlung and right lower lobe. There is no pneumothorax. IMPRESSION: Minor bilateral areas of discoid atelectasis. at 0818 Reported and signed by: Rodrick Cantu M.D. CC: Eve Zaragoza MD; Manuelito Ford Technologist: ELIJAH Adams) Trnscrd Date/Time/By: 11/13/2018 (18) : By: [email or web address] Orig Print D/T: S: 11/13/2018 (4872) PAGE 1 Signed Report COMPREHENSIVE METABOLIC [id number] 05:42:00* Test Item Value Reference Range Interpretation Comments SODIUM (test code = NA) 143 mEq/L 134-147 N POTASSIUM (test code = K) 3.8 mEq/L 3.4-5.0 N CHLORIDE (test code = CL) 107 mEq/L 100-108 N CARBON DIOXIDE (test code = CO2) 28 mEq/L 21-33 N ANION GAP (test code = GAP) 12 0-20 N GLUCOSE (test code = GLU) 102 mg/dL 70-110 N BLOOD UREA NITROGEN (test code = BUN) 14 mg/dL 7-18 N GLOMERULAR FILTRATION RATE (test code = GFR) 49.8 70-80 L Units of measure = ml/min/1.73 m2 CREATININE (test code = CREAT) 1.4 mg/dL 0.6-1.3 H TOTAL PROTEIN (test code = PROT) 7.5 g/dL 6.4-8.2 N ALBUMIN (test code = ALB) 3.60 g/dL 3.4-5.0 N CALCIUM (test code = CA) 8.8 mg/dL 8.0-10.5 N BILIRUBIN TOTAL (test code = BILT) 0.60 mg/dL 0.0-1.0 N SGOT/AST (test code = AST) 11 IUnit/L 15-37 L SGPT/ALT (test code = ALT) 14 IUnit/L 15-65 L ALKALINE PHOSPHATASE TOTAL (test code = ALKP) 84 IUnit/L 20-125 N [id number] 05:42:00* Test Item Value Reference Range Interpretation Comments LIPASE (test code = LIP) 65 IUnit/L 73-393 L COMPREHENSIVE METABOLIC [id number] 05:36:00* Test Item Value Reference Range Interpretation Comments SODIUM (test code = NA) 143 mEq/L 134-147 N POTASSIUM (test code = K) 3.8 mEq/L 3.4-5.0 N CHLORIDE (test code = CL) 107 mEq/L 100-108 N CARBON DIOXIDE (test code = CO2) 28 mEq/L 21-33 N ANION GAP (test code = GAP) 12 0-20 N GLUCOSE (test code = GLU) 102 mg/dL 70-110 N BLOOD UREA NITROGEN (test code = BUN) 14 mg/dL 7-18 N GLOMERULAR FILTRATION RATE (test code = GFR) 49.8 70-80 L Units of measure = ml/min/1.73 m2 CREATININE (test code = CREAT) 1.4 mg/dL 0.6-1.3 H TOTAL PROTEIN (test code = PROT) g/dL 6.4-8.2 ALBUMIN (test code = ALB) 3.60 g/dL 3.4-5.0 N CALCIUM (test code = CA) 8.8 mg/dL 8.0-10.5 N BILIRUBIN TOTAL (test code = BILT) mg/dL 0.0-1.0 SGOT/AST (test code = AST) 11 IUnit/L 15-37 L SGPT/ALT (test code = ALT) 14 IUnit/L 15-65 L ALKALINE PHOSPHATASE TOTAL (test code = ALKP) IUnit/L 20-125 [id number] 05:36:00* Test Item Value Reference Range Interpretation Comments LIPASE (test code = LIP) IUnit/L 73-393 URINALYSIS [id number] 05:24:00* Test Item Value Reference Range Interpretation Comments UA COLOR (test code = COLU) RED YEL/STRAW A UA APPEARANCE (test code = APPU) CLEAR CLEAR UA GLUCOSE DIPSTICK (test code = DGLUU) NEGATIVE NEGATIVE UA BILIRUBIN DIPSTICK (test code = BILU) NEGATIVE NEGATIVE UA KETONE DIPSTICK (test code = KETU) NEGATIVE NEGATIVE UA SPECIFIC GRAVITY (test code = SGU) 1.025 1.005-1.030 N UA BLOOD DIPSTICK (test code = LEILANI) NEGATIVE NEGATIVE UA PH DIPSTICK (test code = JEET) 5.0 5.0-7.0 N UA PROTEIN DIPSTICK (test code = PROU) 1+ NEGATIVE A UA UROBILINIOGEN DIPSTICK (test code = URO) 4.0 mg/dL 0.2-1.0 A UA NITRITE DIPSTICK (test code = LI) POSITIVE NEGATIVE A UA LEUKOCYTE ESTERASE DIPSTICK (test code = LEUU) NEGATIVE NEGA TIVE UA WBC (test code = WBCU) 10-20 WBC/HPF 0-3 A UA RBC (test code = RBCU) 4-10 RBC/HPF 0-3 UA BACTERIA (test code = BACU) 1+ /HPF NONE SEEN A UA SQUAMOUS CELLS (test code = SQU) 0-5 /HPF NONE SEEN UA HYALINE CAST (test code = HYALU) 11-20 /LPF NONE SEEN UA MUCUS (test code = MUCU) 4+ /LPF NONE SEEN A COMMENTS: Clean Catch- XR ABDOMEN 1V (KUB)2018-11-13 05:19:00 FAX: Herb Cr MD [phone] [place]: St: REG Name: TEDDY MERCHANT [facility] : [birth year] Age/S: 73/M [address] [place] [address] Unit #: [id number] Loc: [address] [address] Phys: Herb Corrales MD Acct: [id number] Dis Date: Status: REG ER PHONE #: [phone] Exam Date: 11/13/2018 05 FAX #: [phone] Reason: Abdominal Pain EXAMS: CPT CODE: [id number] XR ABDOMEN 1V (KUB) 48564 Abdomen, single view dated 11/13/2018. HISTORY: Abdominal pain. AP supine images of the abdomen are correlated with a prior abdominal radiograph and abdominal CT dated 11/08/2018. The bowel gas pattern is unremarkable. The the oral con trast administered for the abdominal CT is now positioned in the colon. T here is no evidence of organomegaly. Surgical clips in the right upper qu adrant are compatible with prior cholecystectomy. Assessment for free int raperitoneal air is limited by supine positioning and exclusion of the tristan phragms. Atherosclerotic calcification is identified in the aorta and pel rivera vasculature. IMPRESSION: 1. No acute radiogra phic abnormalities of the abdomen are identified. SL: 131 at 0519 Repor nancy and signed by: Candido Styles M.D. CC: Herb martin MD Technologist: Ruby Malcolm RT( R) Trnscrd Date/Time/By: 11/13/2018 (05) : By : Brandy Orig Print D/T: S: 11/13/2018 (0519) PAGE 1 Signed Report CBC W/AUTO [id number] 05:17:00* Test Item Value Reference Range Interpretation Comments WHITE BLOOD CELL (test code = WBC) 6.62 x10 3/uL 4.5-11.0 N RED BLOOD CELL (test code = RBC) 4.12 x10 6/uL 4.00-5.60 N HEMOGLOBIN (test code = HGB) 12.6 g/dL 12.5-16.9 N HEMATOCRIT (test code = HCT) 38.1 % 37.5-50.7 N MEAN CELL VOLUME (test code = MCV) 92.5 fL 81.0-99.0 N MEAN CELL HGB (test code = MCH) 30.6 pg 27.0-33.0 N MEAN CELL HGB CONCETRATION (test code = MCHC) 33.1 g/dL 33.0-37. 0 N RED CELL DISTRIBUTION WIDTH CV (test code = RDW) 15.6 % 11.5- 14.5 H RED CELL DISTRIBUTION WIDTH SD (test code = RDW-SD) 52.2 fL 37 .0-54.0 N PLATELET COUNT (test code = PLT) 214 x10 3/uL 150-400 N MEAN PLATELET VOLUME (test code = MPV) 10.6 fL 7.0-9.0 H NEUTROPHIL % (test code = NT%) 75.5 % 56.0-77.0 N IMMATURE GRANULOCYTE % (test code = IG%) 0.9 % 0.0-2.0 N LYMPHOCYTE % (test code = LY%) 12.1 % 14.0-32.0 L MONOCYTE % (test code = MO%) 10.6 % 4.8-9.0 H EOSINOPHIL % (test code = EO%) 0.6 % 0.3-3.7 N BASOPHIL % (test code = BA%) 0.3 % 0.0-2.0 N NUCLEATED RBC % (test code = NRBC%) 0.0 % 0-0 N NEUTROPHIL # (test code = NT#) 5.00 x10 3/uL 2.0-7.6 N IMMATURE GRANULOCYTE # (test code = IG#) 0.06 x10 3/uL 0.00-0.03 H LYMPHOCYTE # (test code = LY#) 0.80 x10 3/uL 1.0-3.8 L MONOCYTE # (test code = MO#) 0.70 x10 3/uL 0.1-0.8 N EOSINOPHIL # (test code = EO#) 0.04 x10 3/uL 0.0-0.2 N BASOPHIL # (test code = BA#) 0.02 x10 3/uL 0.0-0.2 N NUCLEATED RBC # (test code = NRBC#) 0.00 x10 3/uL 0.0-0.1 N MANUAL DIFF REQUIRED (test code = MDIFF) NO - CT ABD PELVIS W/O [id number] 17:09:00 Name: TEDDY LESTER [facility] : 1945 Age/S: 73 / M [address] [place] [address] Unit #: [id number] Loc: [place] [address] Phys: Zach Hope DO Acct: [id number] Dis Date: Status: REG ER PHONE #: [phone] Exam Date: 11/08/2018 1635 FAX #: [phone] Reason: suprapubic and LLQ pain EXAMS: CPT CODE: [id number] CT ABD PELVIS W/O CONT 05045 Clinical Indication: suprapubic and LLQ pain Comparison: CT abdomen pelvis November 07, 2018 TECHNIQUE: Helical imaging was performed without injection of IV contrast, from the lung base through the symphysis with multiplanar reformations obtained. IV CONTRAST: No IV contrast was administered. GI CONTRAST: No oral contrast was administered. DLP: 643 mGy-cm FINDINGS: Evaluations of the internal organs are limited due to the lack of IV contrast. ABDOMEN AND PELVIS WITHOUT CONTRAST: LUNG BASE: The lung bases are clear. LIVER: The liver has normal contour and is unremarkable. GALLBLADDER: The gallbladder has been surgically resected. PANCREAS: The pancreas is unremarkable. SPLEEN: The spleen is unremarkable. ADRENALS: The right adrenal gland is unremarkable. The left adrenal gland is unremarkable. KIDNEYS: The kidneys are atrophic and contains cysts. There is no evidence of renal or ureteral calculi. There is no evidence of hydronephrosis. BOWEL: The visualized portion of the esophagus is unremarkable. The stomach is unremarkable. Small hiatal hernia is pre sent. The small bowel is normal in caliber and there is no evidence of ma sses or obstruction. . The colon is normal in caliber without any masses. Diverticulosis without evidence of diverticulitis is seen throughout the colon. APPENDIX: The appendix is unremarkable. PELVIS: There are no pelvic mass. The urinary bladder is underdistended w ith wall thickening, more along the anterior margin. PAGE 1 Signed Report (CONTINUED) Name: TEDDY LESTER [facility] : 1945 Age/S: 73 / M [address] [place] [address] Unit #: [id number] Loc: [place] [address] Phys: Zach Hope DO Acct: [id number] Dis Date: Status: REG ER PHONE #: [phone] Exam Date: 11/08/2018 1635 FAX #: [phone] Reason: suprapubic and LLQ pain EXAMS: CPT CODE: [id number] CT ABD PELVIS W/O CONT 00681 <Continued> The prostate and seminal vesicles are unremarkable. PERITONEUM: There is no evidence for free intraperitoneal fluid or air. SOFT TISSUES: The soft tissues are unremarkable. A small umbilical hernia containing fat is present. LYMPH NODES: There is no evidence of mesenteric, retroperitoneal, or inguinal lymphadenopathy. VASCULATURE: The abdominal aorta is normal in caliber. Moderate atherosclerotic calcification affects the abdominal aorta and its branches. Chronic compression deformity with kyphoplasty cement is seen at T12-L5. Hardware fusing the right SI joint are present. MUSCULOSKELETAL: No aggressive bone lesions are seen. IMPRESSION: No acute findings in the abdomen and pelvis since the last exam. Small hiatal hernia. Cholecystectomy. Diverticulosis without evidence of diverticulitis throughout the colon. Normal appendix. Thickened urinary bladder ford. Correlate for possible cystitis. Compression deformities of T12-L5 with kyphoplasty cement. SL: [id number] at 1709 Reported and signed by: Roberto Pink M.D. CC: Zach Hope DO; Manuelito Ford Technologist:RT Jerry(R) CTDI: DLP: Trnscb Date/Time: 11/08/2018 (170) [email or web address] Orig Print D/T: S: 11/08/2018 (3537) PAGE 2 Signed Report - XR ABDOMEN 1V (KUB) 2018-11-08 15:44:00 FAX: Zach Manriquez DO [phone] [place]: St: REG Name: TEDDY MERCHANT [facility] : [birth year] Age/S: 73/M [address] [place] [address] Unit #: [id number] Loc: [address] [address] Phys: Zach Hope DO Acct: [id number] Dis Date: Status: REG ER PHONE #: [phone] Exam Date: 11/08/2018 4943 FAX #: [phone] Reason: constipation EXAMS: CPT CODE: [id number] XR ABDOMEN 1V (KUB) 21027 ONE VIEW ABDOMEN: HI STORY: Abdominal pain. COMPARISON EXAM: Abdominal CT scan of 11/07. FINDINGS: This single view of the abdomen was obtained at 1 508 hours on 11/08/2018 and shows a normal gas pattern without evidence of bowel dilatation. No unusual calcifications identified. Mult ilevel kyphoplasty is identified through numerous lumbar vertebrae. Fusio n rods are identified across the right sacroiliac joint. I MPRESSION: 1. No acute changes in the abdomen. 2. Previous kyp hoplasty. 3. Previous right SI joint fusion. 4. No significant change compared to the abdominal CT scan performed 11/07/2018. SL:01 at 1544 Reported and signed by: Franck Plascencia M.D. CC: Zach Hope DO Technologist: RT Khalida(R)R Trnscrd Date/Time/By: 11/08/2018 ( 8903) : By: Naomie Orig Print D/T: S: 11/08/2018 (5548) PAGE 1 Signed Report URINALYSIS [id number] 15:42:00* Test Item Value Reference Range Interpretation Comments UA COLOR (test code = COLU) YELLOW YEL/STRAW UA APPEARANCE (test code = APPU) CLEAR CLEAR UA GLUCOSE DIPSTICK (test code = DGLUU) NEGATIVE NEGATIVE UA BILIRUBIN DIPSTICK (test code = BILU) NEGATIVE NEGATIVE UA KETONE DIPSTICK (test code = KETU) NEGATIVE NEGATIVE UA SPECIFIC GRAVITY (test code = SGU) 1.006 1.005-1.030 N UA BLOOD DIPSTICK (test code = LEILANI) NEGATIVE NEGATIVE UA PH DIPSTICK (test code = JEET) 5.0 5.0-7.0 N UA PROTEIN DIPSTICK (test code = PROU) NEGATIVE NEGATIVE UA UROBILINIOGEN DIPSTICK (test code = URO) 0.2 mg/dL 0.2-1.0 UA NITRITE DIPSTICK (test code = LI) NEGATIVE NEGATIVE UA LEUKOCYTE ESTERASE DIPSTICK (test code = LEUU) NEGATIVE NEGA TIVE UA WBC (test code = WBCU) 0-3 WBC/HPF 0-3 UA RBC (test code = RBCU) 0-3 RBC/HPF 0-3 UA BACTERIA (test code = BACU) NONE SEEN /HPF NONE SEEN UA SQUAMOUS CELLS (test code = SQU) 0-5 /HPF NONE SEEN UA HYALINE CAST (test code = HYALU) 0-2 /LPF NONE SEEN UA MUCUS (test code = MUCU) TRACE /LPF NONE SEEN BASIC METABOLIC [id number] 15:39:00* Test Item Value Reference Range Interpretation Comments SODIUM (test code = NA) 136 mEq/L 134-147 N POTASSIUM (test code = K) 3.7 mEq/L 3.4-5.0 N CHLORIDE (test code = CL) 102 mEq/L 100-108 N CARBON DIOXIDE (test code = CO2) 25 mEq/L 21-33 N ANION GAP (test code = GAP) 13 0-20 N GLUCOSE (test code = GLU) 108 mg/dL 70-110 N BLOOD UREA NITROGEN (test code = BUN) 13 mg/dL 7-18 N GLOMERULAR FILTRATION RATE (test code = GFR) 42.7 70-80 L Units of measure = ml/min/1.73 m2 CREATININE (test code = CREAT) 1.6 mg/dL 0.6-1.3 H CALCIUM (test code = CA) 9.1 mg/dL 8.0-10.5 N CBC W/AUTO [id number] 15:26:00* Test Item Value Reference Range Interpretation Comments WHITE BLOOD CELL (test code = WBC) 8.39 x10 3/uL 4.5-11.0 RED BLOOD CELL (test code = RBC) 4.43 x10 6/uL 4.00-5.60 N HEMOGLOBIN (test code = HGB) 13.7 g/dL 12.5-16.9 N HEMATOCRIT (test code = HCT) 41.6 % 37.5-50.7 N MEAN CELL VOLUME (test code = MCV) 93.9 fL 81.0-99.0 N MEAN CELL HGB (test code = MCH) 30.9 pg 27.0-33.0 N MEAN CELL HGB CONCETRATION (test code = MCHC) 32.9 g/dL 33.0-37. 0 L RED CELL DISTRIBUTION WIDTH CV (test code = RDW) 15.9 % 11.5- 14.5 H RED CELL DISTRIBUTION WIDTH SD (test code = RDW-SD) 54.1 fL 37 .0-54.0 H PLATELET COUNT (test code = PLT) 260 x10 3/uL 150-400 N MEAN PLATELET VOLUME (test code = MPV) 10.3 fL 7.0-9.0 H NEUTROPHIL % (test code = NT%) 71.7 % 56.0-77.0 N IMMATURE GRANULOCYTE % (test code = IG%) 1.0 % 0.0-2.0 N LYMPHOCYTE % (test code = LY%) 16.8 % 14.0-32.0 N MONOCYTE % (test code = MO%) 9.7 % 4.8-9.0 H EOSINOPHIL % (test code = EO%) 0.4 % 0.3-3.7 N BASOPHIL % (test code = BA%) 0.4 % 0.0-2.0 N NUCLEATED RBC % (test code = NRBC%) 0.0 % 0-0 N NEUTROPHIL # (test code = NT#) 6.03 x10 3/uL 2.0-7.6 N IMMATURE GRANULOCYTE # (test code = IG#) 0.08 x10 3/uL 0.00-0.03 H LYMPHOCYTE # (test code = LY#) 1.41 x10 3/uL 1.0-3.8 N MONOCYTE # (test code = MO#) 0.81 x10 3/uL 0.1-0.8 H EOSINOPHIL # (test code = EO#) 0.03 x10 3/uL 0.0-0.2 N BASOPHIL # (test code = BA#) 0.03 x10 3/uL 0.0-0.2 N NUCLEATED RBC # (test code = NRBC#) 0.00 x10 3/uL 0.0-0.1 N MANUAL DIFF REQUIRED (test code = MDIFF) NO [id number] 16:08:00* Test Item Value Reference Range Interpretation Comments TROPONIN-I (test code = TROPI) <0.015 ng/mL 0-0.045 N - XR CHEST 1 [id number] 15:14:00 FAX: Manuelito Padgett MD [phone] [place]: B St: REG FAX: Samira Beltran DO Name: TEDDY LESTER [facility] : 1945 Age/S: 73/M [address] [facility] Unit #: [id number] Loc: [place] [address] Phys: DevinSamira DO Acct: [id number] Dis Date: Status: REG ER PHONE #: [phone] Exam Date: 11/07/2018 1504 FAX #: [phone] Reason: HYPOXIA EXAMS: CPT CODE: [id number] XR CHEST 1 V 03627 REASON FOR EXAM: HYPOXIA EXAM ORDER DATE: 11/07/2018 2:46 PM Ordering Elidia: Samira Beltran DO PROCEDURE: - XR CHEST 1 V COMPARISON: FINDINGS: Portable AP frontal view of the chest obtained at 3:04 PM shows clear lungs without evidence of consolidation. There is no evidence of effusion. The heart size is within normal limits. Pulmonary vasculatures are unremarkable. IMPRESSION: No active disease. at 1514 Reported and signed by: Marcus Keating M.D. CC: Manuelito Ford MD; Samira Beltran DO Technologist: Martha Cazares Trnscrd Date/Time/By: 11/07/2018 (4603) : By: Buster Orig Print D/T: S: 11/07/2018 (3749) PAGE 1 Signed Report - CT ABD PELVIS [id number] 14:01:00 Name: TEDDY LESTER [facility] : 1945 Age/S: 73 / M [address] [facility] Unit #: [id number] Loc: [place] [address] Phys: Jagjit Beltran DO Acct: [id number] Di s Date: Status: REG ER PHONE #: Exam Date: 11/07/2018 1323 FAX #: Reason: abd pain, r/o obstruction EXAMS: CPT CODE: [id number] CT ABD PELVIS W/CONT 44116 HISTORY: Abdominal pain. COMPARISON: CT scan from July 16, 2018. CT abdomen and pelvis with IV contrast: 100 mL of Isovue-370. Automated exposure control CT ABDOMEN: The lung bases are clear. Dependent c hanges. The liver is unremarkable and small. No discrete mass or l esions. Patient is post cholecystectomy. Portal vein and hepatic artery re main patent. The spleen enhanced homogeneously and is not en larged. The stomach distended incompletely with small hiatal hernia. Pancreas is enhancing homogeneously. Adrenals are normal. Kidneys are free from hydroureteronephrosis. Homogeneous enhancement. Yasir ateral excretion. Multiple Bosniak 1 lesions bilaterally. Single Bosniak 2 lesion in the anterior right lower pole with average Hounsfield unit noni urement of 30 measuring 2 cm. This is unchanged from previous exam. No pathologic adenopathy. Heavy atherosclerotic change of the abdo yvette and pelvic vasculature remain well opacified. Separate origins of th e hepatic and splenic arteries. No bowel obstruction or colitis or diverticulitis or enteritis. Constipation. CT pelvis: Appendix is normal. Pelvic bowel loops are unobstructed. Unremarkable urinary bladder. Prostate measured 3.7 cm with coarse calcifi cations. Patulous fat-containing inguinal canals. No free fluid or free ai r or abscess. Subcutaneous tissues and the musculature are normal in appearance. No lytic or blastic lesions are noted within the bony skele ton. DJD and osteopenia. Metallic nails stabilizing the right SI joint. Vertebroplasty change throughout the lumbar vertebral bodies as well PAGE 1 Signed Report (CONTINUED) Name: TEDDY LESTER [facility] : 1944 Age/S: 73 / M [address] [facility] Unit #: [id number] Loc: [place] [address] Phys: Samira Beltran DO Acct: [id number] Dis Date: Status: REG ER PHONE #: [phone] Exam Date: 11/07/2018 1323 FAX #: [phone] Reason: abd pain, r/o obstruction EXAMS: CPT CODE: [id number] CT ABD PELVIS W/CONT 46866 <Continued> within the T12 vertebral body. IMPRESSION: No acute intra- abdominal or intrapelvic pathology. Multiple Bosniak 1 lesions in either kidney with single Bosniak 2 lesion in the lower pole measuring 2 cm with average Hounsfield unit measurement of 30 is unchanged. Unremarkable urinary bladder. at 1401 Reported and signed by: Mike Alarcon M.D. CC: Manuelito Ford MD; Samira Rebolledo DO Technologist:Caroline Corral,RT(R),CT CTDI: DLP: Trnscb Date/Time: 11/07/2018 (3011) [email or web address] Orig Print D/T: S: 11/07/2018 (0390) PAGE 2 Signed Report URINALYSIS [id number] 13:22:00* Test Item Value Reference Range Interpretation Comments UA COLOR (test code = COLU) YELLOW YELLOW UA APPEARANCE (test code = APPU) CLEAR CLEAR UA GLUCOSE DIPSTICK (test code = DGLUU) 100 (1+) mg/dL NEGATIVE A UA BILIRUBIN DIPSTICK (test code = BILU) NEGATIVE mg/dL NEGATIVE UA KETONE DIPSTICK (test code = KETU) NEGATIVE mg/dL NEGATIVE UA SPECIFIC GRAVITY (test code = SGU) 1.025 1.001-1.035 UA BLOOD DIPSTICK (test code = LEILANI) Negative mg/dL NEGATIVE UA PH DIPSTICK (test code = JEET) 5.0 5.0-8.0 UA PROTEIN DIPSTICK (test code = PROU) 30 (1+) mg/dL NEGATIVE A UA UROBILINIOGEN DIPSTICK (test code = URO) Normal mg/dL NEGATIVE UA NITRITE DIPSTICK (test code = LI) NEGATIVE NEGATIVE UA LEUKOCYTE ESTERASE W REFLEX (test code = LEUUR) 75 [place]/uL (1+) [place]ayito/uL NEGATIVE A UA WBC (test code = WBCU) 21-50 per HPF 0-5 A UA RBC (test code = RBCU) 0-2 #/HPF 0-5 UA EPITHELIAL CELLS (test code = EPIU) FEW per HPF FEW UA MUCUS (test code = MUCU) MANY #/LPF FEW A Urine Source? Clean CatchURINALYSIS [id number] 13:02:00* Test Item Value Reference Range Interpretation Comments UA COLOR (test code = COLU) YELLOW YELLOW UA APPEARANCE (test code = APPU) CLEAR CLEAR UA GLUCOSE DIPSTICK (test code = DGLUU) 100 (1+) mg/dL NEGATIVE A UA BILIRUBIN DIPSTICK (test code = BILU) NEGATIVE mg/dL NEGATIVE UA KETONE DIPSTICK (test code = KETU) NEGATIVE mg/dL NEGATIVE UA SPECIFIC GRAVITY (test code = SGU) 1.025 1.001-1.035 UA BLOOD DIPSTICK (test code = LEILANI) Negative mg/dL NEGATIVE UA PH DIPSTICK (test code = JEET) 5.0 5.0-8.0 UA PROTEIN DIPSTICK (test code = PROU) 30 (1+) mg/dL NEGATIVE A UA UROBILINIOGEN DIPSTICK (test code = URO) Normal mg/dL NEGATIVE UA NITRITE DIPSTICK (test code = LI) NEGATIVE NEGATIVE UA LEUKOCYTE ESTERASE W REFLEX (test code = LEUUR) 75 [place]/uL (1+) [place]/uL NEGATIVE A UA WBC (test code = WBCU) per HPF 0-5 UA RBC (test code = RBCU) per HPF 0-5 UA EPITHELIAL CELLS (test code = EPIU) per HPF Few UA BACTERIA (test code = BACU) per HPF NONE Urine Source? Clean CatchCBC W/O [id number] 12:55:00* Test Item Value Reference Range Interpretation Comments WHITE BLOOD CELL (test code = WBC) 7.0 K/mm3 4.5-12.5 N RED BLOOD CELL (test code = RBC) 4.24 mill/mm3 4.0-5.8 N HEMOGLOBIN (test code = HGB) 12.9 gram/dL 13.0-17.5 L HEMATOCRIT (test code = HCT) 39.4 % 42.0-52.0 L MEAN CELL VOLUME (test code = MCV) 92.9 fL 80-98 N MEAN CELL HGB (test code = MCH) 30.4 picogram 27.0-33.0 N MEAN CELL HGB CONCETRATION (test code = MCHC) 32.7 gram/dL 33.0-36. 0 L RED CELL DISTRIBUTION WIDTH (test code = RDW) 15.9 % 11.6-16. 2 N PLATELET COUNT (test code = PLT) 207 K/mm3 150-450 N MEAN PLATELET VOLUME (test code = MPV) 10.3 fL 6.7-11.0 N BASIC METABOLIC [id number] 12:53:00* Test Item Value Reference Range Interpretation Comments SODIUM (test code = NA) 144 mmol/L 136-145 N POTASSIUM (test code = K) 4.2 mmol/L 3.5-5.1 N CHLORIDE (test code = CL) 111.0 mmol/L 98-107 H CARBON DIOXIDE (test code = CO2) 21.0 mmol/L 21-32 N ANION GAP (test code = GAP) 16.2 10-20 N GLUCOSE (test code = GLU) 210 mg/dL 74-106 H BLOOD UREA NITROGEN (test code = BUN) 13 mg/dL 7-18 N GLOMERULAR FILTRATION RATE (test code = GFR) 54 mL/min >=60 Estimated GFR by using Modified MDRD formula.Chronic kidney disease is defined as either kidney damageor GFR <60 mL/min/1.73 m2 for >3 months. CREATININE (test code = CREAT) 1.30 mg/dL 0.7-1.3 N BUN/CREATININE RATIO (test code = BUN/CREA) 10.0 10-20 N CALCIUM (test code = CA) 8.7 mg/dL 8.5-10.1 N HEPATIC FUNCTION [id number] 12:53:00* Test Item Value Reference Range Interpretation Comments TOTAL PROTEIN (test code = PROT) 7.8 gram/dL 6.4-8.2 N ALBUMIN (test code = ALB) 3.4 g/dL 3.4-5.0 N GLOBULIN (test code = GLOB) 4.4 gram/dL 2.7-4.2 H ALBUMIN/GLOBULIN RATIO (test code = A/G) 0.8 0.75-1.50 N BILIRUBIN TOTAL (test code = BILT) 0.60 mg/dL 0.0-1.0 N BILIRUBIN DIRECT (test code = BILD) 0.16 mg/dL 0.0-0.20 N SGOT/AST (test code = AST) 17 IUnit/L 15-37 N SGPT/ALT (test code = ALT) 21 IUnit/L 12-78 N ALKALINE PHOSPHATASE TOTAL (test code = ALKP) 106 IUnit/L 45-117 N Note change in reference range due to change in reagent. [id number] 12:53:00* Test Item Value Reference Range Interpretation Comments LIPASE (test code = LIP) 34 U/L 73.0-393.0 L BASIC METABOLIC [id number] 12:45:00* Test Item Value Reference Range Interpretation Comments SODIUM (test code = NA) 144 mmol/L 136-145 N POTASSIUM (test code = K) 4.2 mmol/L 3.5-5.1 N CHLORIDE (test code = CL) 111.0 mmol/L 98-107 H CARBON DIOXIDE (test code = CO2) mmol/L 21-32 ANION GAP (test code = GAP) 10-20 GLUCOSE (test code = GLU) mg/dL 74-106 BLOOD UREA NITROGEN (test code = BUN) mg/dL 7-18 GLOMERULAR FILTRATION RATE (test code = GFR) mL/min >=60 CREATININE (test code = CREAT) mg/dL 0.7-1.3 BUN/CREATININE RATIO (test code = BUN/CREA) 10-20 CALCIUM (test code = CA) mg/dL 8.5-10.1 HEPATIC FUNCTION [id number] 12:45:00* Test Item Value Reference Range Interpretation Comments TOTAL PROTEIN (test code = PROT) gram/dL 6.4-8.2 ALBUMIN (test code = ALB) g/dL 3.4-5.0 GLOBULIN (test code = GLOB) gram/dL 2.7-4.2 ALBUMIN/GLOBULIN RATIO (test code = A/G) 0.75-1.50 BILIRUBIN TOTAL (test code = BILT) mg/dL 0.0-1.0 BILIRUBIN DIRECT (test code = BILD) mg/dL 0.0-0.20 SGOT/AST (test code = AST) IUnit/L 15-37 SGPT/ALT (test code = ALT) IUnit/L 12-78 ALKALINE PHOSPHATASE TOTAL (test code = ALKP) IUnit/L 45-117 [id number] 12:45:00* Test Item Value Reference Range Interpretation Comments LIPASE (test code = LIP) U/L 73.0-393.0 CT CHEST [id number] 21:24:00 [place] [id number] Patient Name: TEDDY LESTER MR #: [id number] : 1945 Age/Sex: 73/M Req #: [id number] Adm Physician: Ordered by: KELY LESTER MD Report #: [id number] Location: ER Room/Bed: Procedure: 0518 -0010 CT/CT CHEST W Exam Date: 09/30/18 Exam Time: 2 045 REPORT STATUS: Signed EXAM: CT Chest WITH contrast (PE Protocol) INDICATION: Chest pain, upper chest pain, positive d-dimer. COMPARISON: CTA chest abdomen and pelvis 07/20/2018 TE CHNIQUE: Chest was scanned utilizing a multidetector helical scanner from the lung apex through the level of the diaphragm after administration of IV contra st. Thin section reconstructions were obtained with special concentration on t he pulmonary arteries. Coronal and sagittal reformations were obtained. Pulmon carlos embolism protocol was performed. IV CONTRAST: 100 mL of Isovue 370 COMPLICATIONS: None RADIATION DOSE: Total DLP: 625.74 mGy*cm Estimated effective dose: (DLP x 0.014 x size factor) mSv Dose modu lation, iterative reconstruction, and/or weight based adjustment of the mA/kV was utilized to reduce the radiation dose to as low as reasonably achievable. FINDINGS: LINES/ TUBES: None. LUNGS AND AIRWAYS: No filling defe ct is identified within the pulmonary arteries to the segmental level. Poor op acification of subsegmental arteries. Stable apical pleural-parenchymal scarri ng. Linear opacities in the posterior right lower lobe likely represent subseg mental atelectasis. No consolidation. Major airways are clear, without locula tions PLEURA: The pleural spaces are clear. HEART AND MEDIASTINUM: The thyroid gland is unremarkable. The heart is normal in size.. Trace pericard ial fluid. Tortuous aorta.. Main pulmonary artery measures 2.9 cm in diamete r and the ascending aorta measures 4 cm, mildly ectatic. Median sternotomy wir es and CABG clips. LYMPH NODES:Calcified mediastinal and hilar lymph nodes. Stable mildly enlarged right lower paratracheal lymph node which measures 1.2 cm in short axis) series 301, image 46). No other mediastinal, or any hilar or axillary lymphadenopathy. UPPER ABDOMEN: Stable small hiatal hernia. V isualized liver, spleen, pancreas and adrenal glands are unremarkable. Stable left renal 1.6 cm cyst. Stable partially visualized right renal 1.7 cm cyst. BONES: Diffuse osseous demineralization. No acute osseous abnormalities. M ultiple stable compression deformities and changes of vertebroplasty. SOFT TISSUES: Unremarkable. IMPRESSION: 1. No pulmonary emboli to the segm ental level. 2. Right lower lobe subsegmental atelectasis. No consolidation . 3. Stable mildly enlarged right lower paratracheal lymph node, likely aleah ctive. No other adenopathy. Signed by: Dr. Jere Terrazas M.D. on 09/13 9:32 PM Dictated By: JERE TERRAZAS MD 31 Transcribed By: ERICH on 09/30/182131 COPY TO: KELY LESTER MD B-Type Natriuretic Peptide 2018-09-30 19:43:00* Test Item Value Reference Range Interpretation Comments B-Type Natriuretic Peptide (test code = 86726-8) 63.5 0-100 [facility] Jwkater2432-24-89 19:43:00* Test Item Value Reference Range Interpretation Comments B-Type Natriuretic Peptide (test code = 46546-1) 63.5 0-100 [facility] Sddffpj6945-66-15 19:43:00* Test Item Value Reference Range Interpretation Comments B-Type Natriuretic Peptide (test code = 88967-9) 63.5 0-100 [facility] Bnduvdp2610-41-88 19:43:00* Test Item Value Reference Range Interpretation Comments B-Type Natriuretic Peptide (test code = 77655-4) 63.5 0-100 [facility] Juoklrj5661-68-40 19:43:00* Test Item Value Reference Range Interpretation Comments B-Type Natriuretic Peptide (test code = 66598-5) 63.5 0-100 [facility] Zmqyxjs8020-79-39 19:43:00* Test Item Value Reference Range Interpretation Comments B-Type Natriuretic Peptide (test code = 96501-7) 63.5 0-100 [facility] CenterCreatine Kinase DO4751-03-20 19:40:00* Test Item Value Reference Range Interpretation Comments Creatine Kinase MB (test code = 51044-7) 0.90 0-5.0 [place] 69843019-05-18 19:40:00* Test Item Value Reference Range Interpretation Comments Troponin I (test code = VRE8941) 0.006 0-0.300 [facility] [id number] 19:40:00* Test Item Value Reference Range Interpretation Comments Creatine Kinase MB (test code = 30867-2) 0.90 0-5.0 [place] 69843019-05-18 19:40:00* Test Item Value Reference Range Interpretation Comments Troponin I (test code = KZA6391) 0.006 0-0.300 [facility] CenterCreat[facility] Kinase LA8180-07-98 19:40:00* Test Item Value Reference Range Interpretation Comments Creatine Kinase MB (test code = 24936-9) 0.90 0-5.0 [place] 69843019-05-18 19:40:00* Test Item Value Reference Range Interpretation Comments Troponin I (test code = ZAX5182) 0.006 0-0.300 [facility] CenterCreatine Kinase FW2469-12-25 19:40:00* Test Item Value Reference Range Interpretation Comments Creatine Kinase MB (test code = 04394-6) 0.90 0-5.0 [place] 69843019-05-18 19:40:00* Test Item Value Reference Range Interpretation Comments Troponin I (test code = NHN5460) 0.006 0-0.300 [facility] CenterCreatine Kinase CZ0154-13-09 19:40:00* Test Item Value Reference Range Interpretation Comments Creatine Kinase MB (test code = 53696-0) 0.90 0-5.0 [facility]Tropomiriamn W8027-36-25 19:40:00* Test Item Value Reference Range Interpretation Comments Troponin I (test code = ONU2768) 0.006 0-0.300 [facility]CH[facility] SINGLE (PORTABLE)2018-09-30 19:35:00 [facility] [address] [place] [address] Patient Name: TEDDY LESTER MR #: [id number] : 1945 Age/Sex: 73/M Req #: [id number] Adm Physician: Ordered by: KELY LESTER MD Report #: [id number] Location: ER Room/Bed: Procedure: 0518 -0025 DX/CHEST SINGLE (PORTABLE) Exam Date: Exam Ti me: REPORT STATUS: Signed [place]: Single AP view of the chest. COMPARISON: CT chest 07/20/2018 IND ICATION: Chest pain IMPRESSION: 1. Lines and Tubes: None 2. L ungs are grossly clear. No consolidation or effusion. 3. Cardiomediastinal s ilhouette is normal. Pulmonary vasculature is normal. Apparent widening of t he right paratracheal stripe, corresponding to previously visualized uncoiled ascending aorta. Calcified mediastinal lymph nodes. 4. No acute bony abnormal ities. Signed by: Dr. Jere Terrazas M.D. on 09/30/2018 7:38 PM D ictated By: JERE TERRAZAS MD 37 COPY TO: KELY CANO MD Sodium Tlecr4695-40-30 19:34:00* Test Item Value Reference Range Interpretation Comments Sodium Level (test code = 2951-2) 140 136-145 [facility]Potassium Qhsyx6615-04-37 19:34:00* Test Item Value Reference Range Interpretation Comments Potassium Level (test code = 2823-3) 4.0 3.5-5.1 [facility] CenterChloride Jhmns1078-41-93 19:34:00* Test Item Value Reference Range Interpretation Comments Chloride Level (test code = 2075-0) 110 98-107 H [facility] CenterCarbon Dioxide Grlnv7063-92-78 19:34:00* Test Item Value Reference Range Interpretation Comments Carbon Dioxide Level (test code = 2028-9) 18 22-29 L [facility] CenterAnion Bfb9318-88-48 19:34:00* Test Item Value Reference Range Interpretation Comments Anion Gap (test code = 51296-4) 16.0 8-16 [facility] CenterBlood Urea Uibdcjhr1384-17-72 19:34:00* Test Item Value Reference Range Interpretation Comments Blood Urea Nitrogen (test code = 3094-0) 26 7-26 [facility] CenterCreatinine2019-05-18 19:34:00* Test Item Value Reference Range Interpretation Comments Creatinine (test code = 2160-0) 1.42 0.72-1.25 H [facility] CenterBUN/Creatinine Jecud9813-35-81 19:34:00* Test Item Value Reference Range Interpretation Comments BUN/Creatinine Ratio (test code = 3097-3) 18 6-25 [facility] CenterEstimat Glomerular Filtration Rate 2018-09-30 19:34:00* Test Item Value Reference Range Interpretation Comments Estimat Glomerular Filtration Rate (test code = 954147256) 49 >60 L Ranges were taken from the National Kidney Disease Education Program and the [facility] Kid[facility] Foundation literature.Reference ranges:60 or greater: Xyctko00-21 ( for 3 consecutive months): Chronic kidney disease 15 or less: Kidney failureLas Palmas Medical CenterGlucose Pajnq0795-82-52 19:34:00* Test Item Value Reference Range Interpretation Comments Glucose Level (test code = GMR2860) 108 74-118 [facility] CenterCalcium Kbwpo3712-63-63 19:34:00* Test Item Value Reference Range Interpretation Comments Calcium Level (test code = 19670-3) 10.0 8.4-10.2 [facility] CenterTotal Zrfohfjgd6216-57-35 19:34:00* Test Item Value Reference Range Interpretation Comments Total Bilirubin (test code = 1975-2) 0.5 0.2-1.2 [facility] CenterAspartate Amino Transf (AST/SGOT) 2018-09-30 19:34:00* Test Item Value Reference Range Interpretation Comments Aspartate Amino Transf (AST/SGOT) (test code = Aspartate Amino Transf (AST/SGOT)) 13 5-34 [facility] CenterAlanine Aminotransferase (ALT/SGPT) 2018-09-30 19:34:00* Test Item Value Reference Range Interpretation Comments Alanine Aminotransferase (ALT/SGPT) (test code = 1742-6) 15 0-55 [facility] CenterTotal Ndvytld4166-73-21 19:34:00* Test Item Value Reference Range Interpretation Comments Total Protein (test code = 2885-2) 8.3 6.5-8.1 H [facility] CenterAlbumin2019-05-18 19:34:00* Test Item Value Reference Range Interpretation Comments Albumin (test code = 1751-7) 4.1 3.5-5.0 [facility] CenterGlobulin2019-05-18 19:34:00* Test Item Value Reference Range Interpretation Comments Globulin (test code = 76905-1) 4.2 2.3-3.5 H [facility] CenterAlbumin/Globulin Czfge7036-64-71 19:34:00 * Test Item Value Reference Range Interpretation Comments Albumin/Globulin Ratio (test code = 1759-0) 1.0 0.8-2.0 [facility] CenterAlkaline Eymcbhjiuxw3355-48-45 19:34:00* Test Item Value Reference Range Interpretation Comments Alkaline Phosphatase (test code = 6768-6) 101 40-150 [facility] CenterCreatine Yfjhvr5770-33-05 19:34:00* Test Item Value Reference Range Interpretation Comments Creatine Kinase (test code = 2157-6) 35 30-200 [facility] Acclv2334-27-96 19:34:00* Test Item Value Reference Range Interpretation Comments Sodium Level (test code = 2951-2) 140 136-145 [facility] CenterPotassium Qvvrn9437-93-37 19:34:00* Test Item Value Reference Range Interpretation Comments Potassium Level (test code = 2823-3) 4.0 3.5-5.1 [facility] CenterChloride Oxoks4730-69-99 19:34:00* Test Item Value Reference Range Interpretation Comments Chloride Level (test code = 2075-0) 110 98-107 H [facility] CenterCarbon Dioxide Deszc0908-33-74 19:34:00* Test Item Value Reference Range Interpretation Comments Carbon Dioxide Level (test code = 2028-9) 18 22-29 L [facility] CenterAnion Eza7950-54-57 19:34:00* Test Item Value Reference Range Interpretation Comments Anion Gap (test code = 44726-0) 16.0 8-16 [facility] CenterBlood Urea Gwnvsumi9744-26-63 19:34:00* Test Item Value Reference Range Interpretation Comments Blood Urea Nitrogen (test code = 3094-0) 26 7-26 [facility] CenterCreatinine2019-05-18 19:34:00* Test Item Value Reference Range Interpretation Comments Creatinine (test code = 2160-0) 1.42 0.72-1.25 H [facility] CenterBUN/Creatinine Vpoxy3905-09-38 19:34:00* Test Item Value Reference Range Interpretation Comments BUN/Creatinine Ratio (test code = 3097-3) 18 6-25 [facility] CenterEstimat Glomerular Filtration Rate 2018-09-30 19:34:00* Test Item Value Reference Range Interpretation Comments Estimat Glomerular Filtration Rate (test code = 979989720) 49 >60 L Ranges were taken from the National Kidney Disease Education Program and the [facility] Kidney Foundation literature.Reference ranges:60 or greater: Vcbdtc80-46 ( for 3 consecutive months): Chronic kidney disease 15 or less: Kidney failureLas Palmas Medical CenterGlucose Wgirp3076-39-94 19:34:00* Test Item Value Reference Range Interpretation Comments Glucose Level (test code = MUW9154) 108 74-118 [facility] CenterCalcium Ibqsf7287-32-71 19:34:00* Test Item Value Reference Range Interpretation Comments Calcium Level (test code = 17549-2) 10.0 8.4-10.2 [facility] CenterTotal Mcltehvft6793-59-53 19:34:00* Test Item Value Reference Range Interpretation Comments Total Bilirubin (test code = 1975-2) 0.5 0.2-1.2 [facility] CenterAspartate Amino Transf (AST/SGOT) 2018-09-30 19:34:00* Test Item Value Reference Range Interpretation Comments Aspartate Amino Transf (AST/SGOT) (test code = Aspartate Amino Transf (AST/SGOT)) 13 5-34 [facility] CenterAlanine Aminotransferase (ALT/SGPT) 2018-09-30 19:34:00* Test Item Value Reference Range Interpretation Comments Alanine Aminotransferase (ALT/SGPT) (test code = 1742-6) 15 0-55 [facility] CenterTotal Axxjozd5630-92-44 19:34:00* Test Item Value Reference Range Interpretation Comments Total Protein (test code = 2885-2) 8.3 6.5-8.1 H [facility] CenterAlbumin2019-05-18 19:34:00* Test Item Value Reference Range Interpretation Comments Albumin (test code = 1751-7) 4.1 3.5-5.0 [facility] CenterGlobulin2019-05-18 19:34:00* Test Item Value Reference Range Interpretation Comments Globulin (test code = 65258-1) 4.2 2.3-3.5 H [facility] CenterAlbumin/Globulin Aezho7353-95-55 19:34:00 * Test Item Value Reference Range Interpretation Comments Albumin/Globulin Ratio (test code = 1759-0) 1.0 0.8-2.0 [facility] CenterAlkaline Hbazbrytslh5048-98-18 19:34:00* Test Item Value Reference Range Interpretation Comments Alkaline Phosphatase (test code = 6768-6) 101 40-150 [facility] CenterCreatine Jgoone0348-97-77 19:34:00* Test Item Value Reference Range Interpretation Comments Creatine Kinase (test code = 2157-6) 35 30-200 [facility]odium Jbbmr2783-45-30 19:34:00* Test Item Value Reference Range Interpretation Comments Sodium Level (test code = 2951-2) 140 136-145 [facility] CenterPotassium Weacd1463-07-86 19:34:00* Test Item Value Reference Range Interpretation Comments Potassium Level (test code = 2823-3) 4.0 3.5-5.1 [facility] CenterChloride Uyqjs8010-98-55 19:34:00* Test Item Value Reference Range Interpretation Comments Chloride Level (test code = 2075-0) 110 98-107 H [facility] CenterCarbon Dioxide Wivrd2060-70-09 19:34:00* Test Item Value Reference Range Interpretation Comments Carbon Dioxide Level (test code = 2028-9) 18 22-29 L [facility] CenterAnion Svc5444-82-91 19:34:00* Test Item Value Reference Range Interpretation Comments Anion Gap (test code = 58927-7) 16.0 8-16 [facility] CenterBlood Urea Mwmybvca9856-39-98 19:34:00* Test Item Value Reference Range Interpretation Comments Blood Urea Nitrogen (test code = 3094-0) 26 7-26 [facility] CenterCreatinine2019-05-18 19:34:00* Test Item Value Reference Range Interpretation Comments Creatinine (test code = 2160-0) 1.42 0.72-1.25 H [facility] CenterBUN/Creatinine Fkzrc8983-69-01 19:34:00* Test Item Value Reference Range Interpretation Comments BUN/Creatinine Ratio (test code = 3097-3) 18 6-25 [facility] CenterEstimat Glomerular Filtration Rate 2018-09-30 19:34:00* Test Item Value Reference Range Interpretation Comments Estimat Glomerular Filtration Rate (test code = 178888475) 49 >60 L Ranges were taken from the National Kidney Disease Education Program and the [facility] Kidney Foundation literature.Reference ranges:60 or greater: Xygwbf86-50 ( for 3 consecutive months): Chronic kidney disease 15 or less: Kidney failureLas Palmas Medical CenterGlucose Cixiz6020-64-45 19:34:00* Test Item Value Reference Range Interpretation Comments Glucose Level (test code = DVO8410) 108 74-118 [facility] CenterCalcium Odixm5243-54-88 19:34:00* Test Item Value Reference Range Interpretation Comments Calcium Level (test code = 92629-9) 10.0 8.4-10.2 [facility] CenterTotal Kfkfdxrcu5555-05-35 19:34:00* Test Item Value Reference Range Interpretation Comments Total Bilirubin (test code = 1975-2) 0.5 0.2-1.2 [facility] CenterAspartate Amino Transf (AST/SGOT) 2018-09-30 19:34:00* Test Item Value Reference Range Interpretation Comments Aspartate Amino Transf (AST/SGOT) (test code = Aspartate Amino Transf (AST/SGOT)) 13 5-34 [facility] CenterAlanine Aminotransferase (ALT/SGPT) 2018-09-30 19:34:00* Test Item Value Reference Range Interpretation Comments Alanine Aminotransferase (ALT/SGPT) (test code = 1742-6) 15 0-55 [facility] CenterTotal Vnmbptq8083-28-16 19:34:00* Test Item Value Reference Range Interpretation Comments Total Protein (test code = 2885-2) 8.3 6.5-8.1 H [facility] CenterAlbumin2019-05-18 19:34:00* Test Item Value Reference Range Interpretation Comments Albumin (test code = 1751-7) 4.1 3.5-5.0 [facility] CenterGlobulin2019-05-18 19:34:00* Test Item Value Reference Range Interpretation Comments Globulin (test code = 50752-9) 4.2 2.3-3.5 H [facility] CenterAlbumin/Globulin Ykvta3408-17-25 19:34:00 * Test Item Value Reference Range Interpretation Comments Albumin/Globulin Ratio (test code = 1759-0) 1.0 0.8-2.0 [facility] CenterAlkaline Jbnblaykqsl9643-04-54 19:34:00* Test Item Value Reference Range Interpretation Comments Alkaline Phosphatase (test code = 6768-6) 101 40-150 [facility] CenterCreatine Uufnin5386-26-10 19:34:00* Test Item Value Reference Range Interpretation Comments Creatine Kinase (test code = 2157-6) 35 30-200 [facility]odium Ldjwi0957-08-75 19:34:00* Test Item Value Reference Range Interpretation Comments Sodium Level (test code = 2951-2) 140 136-145 [facility] CenterPotassium Wshzv6761-77-18 19:34:00* Test Item Value Reference Range Interpretation Comments Potassium Level (test code = 2823-3) 4.0 3.5-5.1 [facility] CenterChloride Atxbv5490-80-56 19:34:00* Test Item Value Reference Range Interpretation Comments Chloride Level (test code = 2075-0) 110 98-107 H [facility] CenterCarbon Dioxide Jqpzz4939-85-55 19:34:00* Test Item Value Reference Range Interpretation Comments Carbon Dioxide Level (test code = 2028-9) 18 22-29 L [facility] CenterAnion Vxo7954-93-85 19:34:00* Test Item Value Reference Range Interpretation Comments Anion Gap (test code = 02261-6) 16.0 8-16 [facility] CenterBlood Urea Cleqjdxm9323-93-97 19:34:00* Test Item Value Reference Range Interpretation Comments Blood Urea Nitrogen (test code = 3094-0) 26 7-26 [facility] CenterCreatinine2019-05-18 19:34:00* Test Item Value Reference Range Interpretation Comments Creatinine (test code = 2160-0) 1.42 0.72-1.25 H [facility] CenterBUN/Creatinine Rdsqw2645-53-49 19:34:00* Test Item Value Reference Range Interpretation Comments BUN/Creatinine Ratio (test code = 3097-3) 18 6-25 [facility] CenterEstimat Glomerular Filtration Rate 2018-09-30 19:34:00* Test Item Value Reference Range Interpretation Comments Estimat Glomerular Filtration Rate (test code = 359228079) 49 >60 L Ranges were taken from the National Kidney Disease Education Program and the [facility] Foundation literature.Reference ranges:60 or greater: Pqrxrc42-66 ( for 3 consecutive months): Chronic kidney disease 15 or less: Kidney failureLas Palmas Medical CenterGlucose Fbprh0528-62-49 19:34:00* Test Item Value Reference Range Interpretation Comments Glucose Level (test code = JBR4522) 108 74-118 [facility] CenterCalcium Olicv9313-90-78 19:34:00* Test Item Value Reference Range Interpretation Comments Calcium Level (test code = 64523-2) 10.0 8.4-10.2 [facility] CenterTotal Rrffhkvei9059-98-40 19:34:00* Test Item Value Reference Range Interpretation Comments Total Bilirubin (test code = 1975-2) 0.5 0.2-1.2 [facility] CenterAspartate Amino Transf (AST/SGOT) 2018-09-30 19:34:00* Test Item Value Reference Range Interpretation Comments Aspartate Amino Transf (AST/SGOT) (test code = Aspartate Amino Transf (AST/SGOT)) 13 5-34 [facility] CenterAlanine Aminotransferase (ALT/SGPT) 2018-09-30 19:34:00* Test Item Value Reference Range Interpretation Comments Alanine Aminotransferase (ALT/SGPT) (test code = 1742-6) 15 0-55 [facility] CenterTotal Wsbbyoy2208-72-83 19:34:00* Test Item Value Reference Range Interpretation Comments Total Protein (test code = 2885-2) 8.3 6.5-8.1 H [facility] CenterAlbumin2019-05-18 19:34:00* Test Item Value Reference Range Interpretation Comments Albumin (test code = 1751-7) 4.1 3.5-5.0 [facility] CenterGlobulin2019-05-18 19:34:00* Test Item Value Reference Range Interpretation Comments Globulin (test code = 51017-0) 4.2 2.3-3.5 H [facility] CenterAlbumin/Globulin Ryrdx0764-85-14 19:34:00 * Test Item Value Reference Range Interpretation Comments Albumin/Globulin Ratio (test code = 1759-0) 1.0 0.8-2.0 [facility] CenterAlkaline Emvsgvtoqdp2952-65-04 19:34:00* Test Item Value Reference Range Interpretation Comments Alkaline Phosphatase (test code = 6768-6) 101 40-150 [facility] CenterCreatine Krkbyj6730-75-58 19:34:00* Test Item Value Reference Range Interpretation Comments Creatine Kinase (test code = 2157-6) 35 30-200 [facility]odium Ywlhy8830-97-21 19:34:00* Test Item Value Reference Range Interpretation Comments Sodium Level (test code = 2951-2) 140 136-145 [facility] CenterPotassium Pocqo5198-53-31 19:34:00* Test Item Value Reference Range Interpretation Comments Potassium Level (test code = 2823-3) 4.0 3.5-5.1 [facility] CenterChloride Xkwxb9319-47-35 19:34:00* Test Item Value Reference Range Interpretation Comments Chloride Level (test code = 2075-0) 110 98-107 H [facility] CenterCarbon Dioxide Pluxy3753-87-28 19:34:00* Test Item Value Reference Range Interpretation Comments Carbon Dioxide Level (test code = 2028-9) 18 22-29 L [facility] CenterAnion Pax3945-71-91 19:34:00* Test Item Value Reference Range Interpretation Comments Anion Gap (test code = 58451-5) 16.0 8-16 [facility] CenterBlood Urea Yokabpcu4255-73-38 19:34:00* Test Item Value Reference Range Interpretation Comments Blood Urea Nitrogen (test code = 3094-0) 26 7-26 [facility] CenterCreatinine2019-05-18 19:34:00* Test Item Value Reference Range Interpretation Comments Creatinine (test code = 2160-0) 1.42 0.72-1.25 H [facility] CenterBUN/Creatinine Xxiks8418-54-94 19:34:00* Test Item Value Reference Range Interpretation Comments BUN/Creatinine Ratio (test code = 3097-3) 18 6-25 [facility] CenterEstimat Glomerular Filtration Rate 2018-09-30 19:34:00* Test Item Value Reference Range Interpretation Comments Estimat Glomerular Filtration Rate (test code = 927697569) 49 >60 L Ranges were taken from the National Kidney Disease Education Program and the [facility] Foundation literature.Reference ranges:60 or greater: Mykjcf08-47 ( for 3 consecutive months): Chronic kidney disease 15 or less: Kidney failureLas Palmas Medical CenterGlucose Dvmgc7940-72-96 19:34:00* Test Item Value Reference Range Interpretation Comments Glucose Level (test code = OOJ1809) 108 74-118 [facility] CenterCalcium Witag6959-44-89 19:34:00* Test Item Value Reference Range Interpretation Comments Calcium Level (test code = 32265-3) 10.0 8.4-10.2 [facility] CenterTotal Pueutoltw7062-41-39 19:34:00* Test Item Value Reference Range Interpretation Comments Total Bilirubin (test code = 1975-2) 0.5 0.2-1.2 [facility] CenterAspartate Amino Transf (AST/SGOT) 2018-09-30 19:34:00* Test Item Value Reference Range Interpretation Comments Aspartate Amino Transf (AST/SGOT) (test code = Aspartate Amino Transf (AST/SGOT)) 13 5-34 [facility] CenterAlanine Aminotransferase (ALT/SGPT) 2018-09-30 19:34:00* Test Item Value Reference Range Interpretation Comments Alanine Aminotransferase (ALT/SGPT) (test code = 1742-6) 15 0-55 [facility] CenterTotal [id number] 19:34:00* Test Item Value Reference Range Interpretation Comments Total Protein (test code = 2885-2) 8.3 6.5-8.1 [facility] CenterAlbumin2019-05-18 19:34:00* Test Item Value Reference Range Interpretation Comments Albumin (test code = 1751-7) 4.1 3.5-5.0 [facility] CenterGlobulin2019-05-18 19:34:00* Test Item Value Reference Range Interpretation Comments Globulin (test code = 44117-4) 4.2 2.3-3.5 [facility] CenterAlbumin/Globulin [id number] 19:34:00 * Test Item Value Reference Range Interpretation Comments Albumin/Globulin Ratio (test code = 1759-0) 1.0 0.8-2.0 [facility] CenterAlkaline Fenuzjfxpnl6523-27-16 19:34:00* Test Item Value Reference Range Interpretation Comments Alkaline Phosphatase (test code = 6768-6) 101 40-150 [facility] CenterCreatine Walafo6265-46-89 19:34:00* Test Item Value Reference Range Interpretation Comments Creatine Kinase (test code = 2157-6) 35 30-200 [facility] CenterD-Dimer Quantitative (PE/DVT)2018-09-30 19:27:00* Test Item Value Reference Range Interpretation Comments D-Dimer Quantitative (PE/DVT) (test code = 74039-6) 0.68 0. 00-0.45 [facility] CenterD-Dimer Quantitative (PE/DVT)2018-09-30 19:27:00* Test Item Value Reference Range Interpretation Comments D-Dimer Quantitative (PE/DVT) (test code = 56366-7) 0.68 0. 00-0.45 [facility] CenterD-Dimer Quantitative (PE/DVT)2018-09-30 19:27:00* Test Item Value Reference Range Interpretation Comments D-Dimer Quantitative (PE/DVT) (test code = 41447-5) 0.68 0. 00-0.45 [facility] CenterD-Dimer Quantitative (PE/DVT)2018-09-30 19:27:00* Test Item Value Reference Range Interpretation Comments D-Dimer Quantitative (PE/DVT) (test code = 74191-9) 0.68 0. 00-0.45 [facility] CenterD-Dimer Quantitative (PE/DVT)2018-09-30 19:27:00* Test Item Value Reference Range Interpretation Comments D-Dimer Quantitative (PE/DVT) (test code = 19277-4) 0.68 0. 00-0.45 [facility] CenterD-Dimer Quantitative (PE/DVT)2018-09-30 19:27:00* Test Item Value Reference Range Interpretation Comments D-Dimer Quantitative (PE/DVT) (test code = 89924-1) 0.68 0. 00-0.45 H [facility] CenterProthrombin [id number] 19:23:00* Test Item Value Reference Range Interpretation Comments Prothrombin Time (test code = 5902-2) 12.3 11.9-14.5 [facility] CenterProthromb Time International Ratio 2018-09-30 19:23:00* Test Item Value Reference Range Interpretation Comments Prothromb Time International Ratio (test code = 6301-6) 0.87 Oral Anticoagulant Therapy INR Values:1. Low Intensity Therapy 1.5 - 2.02 . Moderate Intensity Therapy 2.0 - 3.03. High Intensity Therapy(1) 2.5 - 3. 54. High Intensity Therapy(2) 3.0 - 4.05. Panic Value INR > 5.0 [facility] CenterActivated Partial Thromboplast Time 2018-09-30 19:23:00* Test Item Value Reference Range Interpretation Comments Activated Partial Thromboplast Time (test code = 90114-3) 25.0 23.8-35.5 [facility] CenterProthrombin [id number] 19:23:00* Test Item Value Reference Range Interpretation Comments Prothrombin Time (test code = 5902-2) 12.3 11.9-14.5 [facility] CenterProthromb Time International Ratio 2018-09-30 19:23:00* Test Item Value Reference Range Interpretation Comments Prothromb Time International Ratio (test code = 6301-6) 0.87 Oral Anticoagulant Therapy INR Values:1. Low Intensity Therapy 1.5 - 2.02 . Moderate Intensity Therapy 2.0 - 3.03. High Intensity Therapy(1) 2.5 - 3. 54. High Intensity Therapy(2) 3.0 - 4.05. Panic Value INR > 5.0 [facility] CenterActivated Partial Thromboplast Time 2018-09-30 19:23:00* Test Item Value Reference Range Interpretation Comments Activated Partial Thromboplast Time (test code = 91099-8) 25.0 23.8-35.5 [facility] CenterProthrombin [id number] 19:23:00* Test Item Value Reference Range Interpretation Comments Prothrombin Time (test code = 5902-2) 12.3 11.9-14.5 [facility] CenterProthromb Time International Ratio 2018-09-30 19:23:00* Test Item Value Reference Range Interpretation Comments Prothromb Time International Ratio (test code = 6301-6) 0.87 Oral Anticoagulant Therapy INR Values:1. Low Intensity Therapy 1.5 - 2.02 . Moderate Intensity Therapy 2.0 - 3.03. High Intensity Therapy(1) 2.5 - 3. 54. High Intensity Therapy(2) 3.0 - 4.05. Panic Value INR > 5.0 [facility] CenterActivated Partial Thromboplast Time 2018-09-30 19:23:00* Test Item Value Reference Range Interpretation Comments Activated Partial Thromboplast Time (test code = 39268-6) 25.0 23.8-35.5 [facility] CenterProthrombin Wiqe1195-52-40 19:23:00* Test Item Value Reference Range Interpretation Comments Prothrombin Time (test code = 5902-2) 12.3 11.9-14.5 [facility] CenterProthromb Time International Ratio 2018-09-30 19:23:00* Test Item Value Reference Range Interpretation Comments Prothromb Time International Ratio (test code = 6301-6) 0.87 Oral Anticoagulant Therapy INR Values:1. Low Intensity Therapy 1.5 - 2.02 . Moderate Intensity Therapy 2.0 - 3.03. High Intensity Therapy(1) 2.5 - 3. 54. High Intensity Therapy(2) 3.0 - 4.05. Panic Value INR > 5.0 [facility] CenterActivated Partial Thromboplast Time 2018-09-30 19:23:00* Test Item Value Reference Range Interpretation Comments Activated Partial Thromboplast Time (test code = 80731-1) 25.0 23.8-35.5 [facility] CenterProthrombin [id number] 19:23:00* Test Item Value Reference Range Interpretation Comments Prothrombin Time (test code = 5902-2) 12.3 11.9-14.5 [facility] CenterProthromb Time International Ratio 2018-09-30 19:23:00* Test Item Value Reference Range Interpretation Comments Prothromb Time International Ratio (test code = 6301-6) 0.87 Oral Anticoagulant Therapy INR Values:1. Low Intensity Therapy 1.5 - 2.02 . Moderate Intensity Therapy 2.0 - 3.03. High Intensity Therapy(1) 2.5 - 3. 54. High Intensity Therapy(2) 3.0 - 4.05. Panic Value INR > 5.0 [facility] CenterActivated Partial Thromboplast Time 2018-09-30 19:23:00* Test Item Value Reference Range Interpretation Comments Activated Partial Thromboplast Time (test code = 26960-9) 25.0 23.8-35.5 [facility] CenterProthrombin [id number] 19:23:00* Test Item Value Reference Range Interpretation Comments Prothrombin Time (test code = 5902-2) 12.3 11.9-14.5 [facility] CenterProthromb Time International Ratio 2018-09-30 19:23:00* Test Item Value Reference Range Interpretation Comments Prothromb Time International Ratio (test code = 6301-6) 0.87 Oral Anticoagulant Therapy INR Values:1. Low Intensity Therapy 1.5 - 2.02 . Moderate Intensity Therapy 2.0 - 3.03. High Intensity Therapy(1) 2.5 - 3. 54. High Intensity Therapy(2) 3.0 - 4.05. Panic Value INR > 5.0 [facility] CenterActivated Partial Thromboplast Time 2018-09-30 19:23:00* Test Item Value Reference Range Interpretation Comments Activated Partial Thromboplast Time (test code = 59278-9) 25.0 23.8-35.5 [facility] CenterWhite Blood [id number] 19:19:00* Test Item Value Reference Range Interpretation Comments White Blood Count (test code = 6690-2) 11.19 4.8-10.8 H [facility] CenterRed Blood Tdglp0398-27-77 19:19:00* Test Item Value Reference Range Interpretation Comments Red Blood Count (test code = 789-8) 4.76 4.3-5.7 [facility] CenterHemoglobin2019-05-18 19:19:00* Test Item Value Reference Range Interpretation Comments Hemoglobin (test code = 74407-4) 14.7 14.0-18.0 [facility] CenterHematocrit2019-05-18 19:19:00* Test Item Value Reference Range Interpretation Comments Hematocrit (test code = 4544-3) 42.5 38.2-49.6 [facility] CenterMean Corpuscular Zsdhkn5483-42-70 19:19:00* Test Item Value Reference Range Interpretation Comments Mean Corpuscular Volume (test code = 787-2) 89.3 81-99 [facility] CenterMean Corpuscular Sxdjdizwto8409-40-56 19:19:00* Test Item Value Reference Range Interpretation Comments Mean Corpuscular Hemoglobin (test code = 785-6) 30.9 28-32 [facility] CenterMean Corpuscular Hemoglobin Concent 2018-09-30 19:19:00* Test Item Value Reference Range Interpretation Comments Mean Corpuscular Hemoglobin Concent (test code = 786-4) 34.6 31-35 [facility] CenterRed Cell Distribution [id number] 19:19:00* Test Item Value Reference Range Interpretation Comments Red Cell Distribution Width (test code = 64808-5) 16.0 11.7 -14.4 H [facility] CenterPlatelet Flnmh8934-69-46 19:19:00* Test Item Value Reference Range Interpretation Comments Platelet Count (test code = 777-3) 257 140-360 [facility] CenterNeutrophils (%) (Auto)2018-09-30 19:19:00 * Test Item Value Reference Range Interpretation Comments Neutrophils (%) (Auto) (test code = 64693-6) 73.5 38.7-80.0 [facility] CenterLymphocytes (%) (Auto)2018-09-30 19:19:00 * Test Item Value Reference Range Interpretation Comments Lymphocytes (%) (Auto) (test code = 736-9) 15.7 18.0-39.1 L [facility] CenterMonocytes (%) (Auto)2018-09-30 19:19:00* Test Item Value Reference Range Interpretation Comments Monocytes (%) (Auto) (test code = 5905-5) 9.0 4.4-11.3 [facility] CenterEosinophils (%) (Auto)2018-09-30 19:19:00 * Test Item Value Reference Range Interpretation Comments Eosinophils (%) (Auto) (test code = 713-8) 0.1 0.0-6.0 [facility] CenterBasophils (%) (Auto)2018-09-30 19:19:00* Test Item Value Reference Range Interpretation Comments Basophils (%) (Auto) (test code = 706-2) 0.1 0.0-1.0 [facility] CenterIM GRANULOCYTES %2018-09-30 19:19:00* Test Item Value Reference Range Interpretation Comments IM GRANULOCYTES % (test code = IM GRANULOCYTES %) 1.6 0.0- 1.0 H [facility] CenterNeutrophils # (Auto)2018-09-30 19:19:00* Test Item Value Reference Range Interpretation Comments Neutrophils # (Auto) (test code = 751-8) 8.2 2.1-6.9 H [facility] CenterLymphocytes # (Auto)2018-09-30 19:19:00* Test Item Value Reference Range Interpretation Comments Lymphocytes # (Auto) (test code = 51802-9) 1.8 1.0-3.2 [facility] CenterMonocytes # (Auto)2018-09-30 19:19:00* Test Item Value Reference Range Interpretation Comments Monocytes # (Auto) (test code = 742-7) 1.0 0.2-0.8 H [facility] CenterEosinophils # (Auto)2018-09-30 19:19:00* Test Item Value Reference Range Interpretation Comments Eosinophils # (Auto) (test code = 711-2) 0.0 0.0-0.4 [facility] CenterBasophils # (Auto)2018-09-30 19:19:00* Test Item Value Reference Range Interpretation Comments Basophils # (Auto) (test code = 704-7) 0.0 0.0-0.1 [facility] CenterAbsolute Immature Granulocyte (auto 2018-09-30 19:19:00* Test Item Value Reference Range Interpretation Comments Absolute Immature Granulocyte (auto (savanah t code = Absolute Immature Granulocyte (auto) 0.18 0-0.1 H [facility] CenterWhite Blood [id number] 19:19:00* Test Item Value Reference Range Interpretation Comments White Blood Count (test code = 6690-2) 11.19 4.8-10.8 H [facility] CenterRed Blood Nnvip7239-30-63 19:19:00* Test Item Value Reference Range Interpretation Comments Red Blood Count (test code = 789-8) 4.76 4.3-5.7 [facility] CenterHemoglobin2019-05-18 19:19:00* Test Item Value Reference Range Interpretation Comments Hemoglobin (test code = 07068-0) 14.7 14.0-18.0 [facility] CenterHematocrit2019-05-18 19:19:00* Test Item Value Reference Range Interpretation Comments Hematocrit (test code = 4544-3) 42.5 38.2-49.6 [facility] CenterMean Corpuscular Lfakej3874-81-57 19:19:00* Test Item Value Reference Range Interpretation Comments Mean Corpuscular Volume (test code = 787-2) 89.3 81-99 [facility] CenterMean Corpuscular Jxpyezkplc3626-73-10 19:19:00* Test Item Value Reference Range Interpretation Comments Mean Corpuscular Hemoglobin (test code = 785-6) 30.9 28-32 [facility] CenterMean Corpuscular Hemoglobin Concent 2018-09-30 19:19:00* Test Item Value Reference Range Interpretation Comments Mean Corpuscular Hemoglobin Concent (test code = 786-4) 34.6 31-35 [facility] CenterRed Cell Distribution Rexog2614-23-07 19:19:00* Test Item Value Reference Range Interpretation Comments Red Cell Distribution Width (test code = 22441-9) 16.0 11.7 -14.4 H [facility] CenterPlatelet [id number] 19:19:00* Test Item Value Reference Range Interpretation Comments Platelet Count (test code = 777-3) 257 140-360 [facility] CenterNeutrophils (%) (Auto)2018-09-30 19:19:00 * Test Item Value Reference Range Interpretation Comments Neutrophils (%) (Auto) (test code = 31544-5) 73.5 38.7-80.0 [facility] CenterLymphocytes (%) (Auto)2018-09-30 19:19:00 * Test Item Value Reference Range Interpretation Comments Lymphocytes (%) (Auto) (test code = 736-9) 15.7 18.0-39.1 L [facility] CenterMonocytes (%) (Auto)2018-09-30 19:19:00* Test Item Value Reference Range Interpretation Comments Monocytes (%) (Auto) (test code = 5905-5) 9.0 4.4-11.3 [facility] CenterEosinophils (%) (Auto)2018-09-30 19:19:00 * Test Item Value Reference Range Interpretation Comments Eosinophils (%) (Auto) (test code = 713-8) 0.1 0.0-6.0 [facility] CenterBasophils (%) (Auto)2018-09-30 19:19:00* Test Item Value Reference Range Interpretation Comments Basophils (%) (Auto) (test code = 706-2) 0.1 0.0-1.0 [facility] CenterIM GRANULOCYTES %2018-09-30 19:19:00* Test Item Value Reference Range Interpretation Comments IM GRANULOCYTES % (test code = IM GRANULOCYTES %) 1.6 0.0- 1.0 H [facility] CenterNeutrophils # (Auto)2018-09-30 19:19:00* Test Item Value Reference Range Interpretation Comments Neutrophils # (Auto) (test code = 751-8) 8.2 2.1-6.9 H [facility] CenterLymphocytes # (Auto)2018-09-30 19:19:00* Test Item Value Reference Range Interpretation Comments Lymphocytes # (Auto) (test code = 70003-1) 1.8 1.0-3.2 [facility] CenterMonocytes # (Auto)2018-09-30 19:19:00* Test Item Value Reference Range Interpretation Comments Monocytes # (Auto) (test code = 742-7) 1.0 0.2-0.8 [facility] CenterEosinophils # (Auto)2018-09-30 19:19:00* Test Item Value Reference Range Interpretation Comments Eosinophils # (Auto) (test code = 711-2) 0.0 0.0-0.4 [facility] CenterBasophils # (Auto)2018-09-30 19:19:00* Test Item Value Reference Range Interpretation Comments Basophils # (Auto) (test code = 704-7) 0.0 0.0-0.1 [facility] CenterAbsolute Immature Granulocyte (auto 2018-09-30 19:19:00* Test Item Value Reference Range Interpretation Comments Absolute Immature Granulocyte (auto (savanah t code = Absolute Immature Granulocyte (auto) 0.18 0-0.1 H [facility] CenterWhite Blood Oeeod7045-92-97 19:19:00* Test Item Value Reference Range Interpretation Comments White Blood Count (test code = 6690-2) 11.19 4.8-10.8 H [facility] CenterRed Blood Iygrf9326-03-46 19:19:00* Test Item Value Reference Range Interpretation Comments Red Blood Count (test code = 789-8) 4.76 4.3-5.7 [facility] CenterHemoglobin2019-05-18 19:19:00* Test Item Value Reference Range Interpretation Comments Hemoglobin (test code = 31159-0) 14.7 14.0-18.0 [facility] CenterHematocrit2019-05-18 19:19:00* Test Item Value Reference Range Interpretation Comments Hematocrit (test code = 4544-3) 42.5 38.2-49.6 [facility] CenterMean Corpuscular Zhxtcl8130-26-78 19:19:00* Test Item Value Reference Range Interpretation Comments Mean Corpuscular Volume (test code = 787-2) 89.3 81-99 [facility] CenterMean Corpuscular Zmooktkxqc4080-13-22 19:19:00* Test Item Value Reference Range Interpretation Comments Mean Corpuscular Hemoglobin (test code = 785-6) 30.9 28-32 [facility] CenterMean Corpuscular Hemoglobin Concent 2018-09-30 19:19:00* Test Item Value Reference Range Interpretation Comments Mean Corpuscular Hemoglobin Concent (test code = 786-4) 34.6 31-35 [facility] CenterRed Cell Distribution Ihzbb1129-22-76 19:19:00* Test Item Value Reference Range Interpretation Comments Red Cell Distribution Width (test code = 47018-6) 16.0 11.7 -14.4 H [facility] CenterPlatelet Xloxj3473-58-81 19:19:00* Test Item Value Reference Range Interpretation Comments Platelet Count (test code = 777-3) 257 140-360 [facility] CenterNeutrophils (%) (Auto)2018-09-30 19:19:00 * Test Item Value Reference Range Interpretation Comments Neutrophils (%) (Auto) (test code = 03536-2) 73.5 38.7-80.0 [facility] CenterLymphocytes (%) (Auto)2018-09-30 19:19:00 * Test Item Value Reference Range Interpretation Comments Lymphocytes (%) (Auto) (test code = 736-9) 15.7 18.0-39.1 L [facility] CenterMonocytes (%) (Auto)2018-09-30 19:19:00* Test Item Value Reference Range Interpretation Comments Monocytes (%) (Auto) (test code = 5905-5) 9.0 4.4-11.3 [facility] CenterEosinophils (%) (Auto)2018-09-30 19:19:00 * Test Item Value Reference Range Interpretation Comments Eosinophils (%) (Auto) (test code = 713-8) 0.1 0.0-6.0 [facility] CenterBasophils (%) (Auto)2018-09-30 19:19:00* Test Item Value Reference Range Interpretation Comments Basophils (%) (Auto) (test code = 706-2) 0.1 0.0-1.0 [facility] CenterIM GRANULOCYTES %2018-09-30 19:19:00* Test Item Value Reference Range Interpretation Comments IM GRANULOCYTES % (test code = IM GRANULOCYTES %) 1.6 0.0- 1.0 H [facility] CenterNeutrophils # (Auto)2018-09-30 19:19:00* Test Item Value Reference Range Interpretation Comments Neutrophils # (Auto) (test code = 751-8) 8.2 2.1-6.9 [facility] CenterLymphocytes # (Auto)2018-09-30 19:19:00* Test Item Value Reference Range Interpretation Comments Lymphocytes # (Auto) (test code = 37708-9) 1.8 1.0-3.2 [facility] CenterMonocytes # (Auto)2018-09-30 19:19:00* Test Item Value Reference Range Interpretation Comments Monocytes # (Auto) (test code = 742-7) 1.0 0.2-0.8 [facility] CenterEosinophils # (Auto)2018-09-30 19:19:00* Test Item Value Reference Range Interpretation Comments Eosinophils # (Auto) (test code = 711-2) 0.0 0.0-0.4 [facility] CenterBasophils # (Auto)2018-09-30 19:19:00* Test Item Value Reference Range Interpretation Comments Basophils # (Auto) (test code = 704-7) 0.0 0.0-0.1 [facility] CenterAbsolute Immature Granulocyte (auto 2018-09-30 19:19:00* Test Item Value Reference Range Interpretation Comments Absolute Immature Granulocyte (auto (savanah t code = Absolute Immature Granulocyte (auto) 0.18 0-0.1 H [facility] CenterWhite Blood Nlweb8299-05-32 19:19:00* Test Item Value Reference Range Interpretation Comments White Blood Count (test code = 6690-2) 11.19 4.8-10.8 [facility] CenterRed Blood Ybjam4915-36-99 19:19:00* Test Item Value Reference Range Interpretation Comments Red Blood Count (test code = 789-8) 4.76 4.3-5.7 [facility] CenterHemoglobin2019-05-18 19:19:00* Test Item Value Reference Range Interpretation Comments Hemoglobin (test code = 46432-7) 14.7 14.0-18.0 [facility] CenterHematocrit2019-05-18 19:19:00* Test Item Value Reference Range Interpretation Comments Hematocrit (test code = 4544-3) 42.5 38.2-49.6 [facility] CenterMean Corpuscular Yojevy4002-13-00 19:19:00* Test Item Value Reference Range Interpretation Comments Mean Corpuscular Volume (test code = 787-2) 89.3 81-99 [facility] CenterMean Corpuscular Vcyuypxeeu5630-48-96 19:19:00* Test Item Value Reference Range Interpretation Comments Mean Corpuscular Hemoglobin (test code = 785-6) 30.9 28-32 [facility] CenterMean Corpuscular Hemoglobin Concent 2018-09-30 19:19:00* Test Item Value Reference Range Interpretation Comments Mean Corpuscular Hemoglobin Concent (test code = 786-4) 34.6 31-35 [facility] CenterRed Cell Distribution Xyfzx7232-07-30 19:19:00* Test Item Value Reference Range Interpretation Comments Red Cell Distribution Width (test code = 06742-6) 16.0 11.7 -14.4 H [facility] CenterPlatelet Tvads8161-78-55 19:19:00* Test Item Value Reference Range Interpretation Comments Platelet Count (test code = 777-3) 257 140-360 [facility] CenterNeutrophils (%) (Auto)2018-09-30 19:19:00 * Test Item Value Reference Range Interpretation Comments Neutrophils (%) (Auto) (test code = 30685-0) 73.5 38.7-80.0 [facility] CenterLymphocytes (%) (Auto)2018-09-30 19:19:00 * Test Item Value Reference Range Interpretation Comments Lymphocytes (%) (Auto) (test code = 736-9) 15.7 18.0-39.1 L [facility] CenterMonocytes (%) (Auto)2018-09-30 19:19:00* Test Item Value Reference Range Interpretation Comments Monocytes (%) (Auto) (test code = 5905-5) 9.0 4.4-11.3 [facility] CenterEosinophils (%) (Auto)2018-09-30 19:19:00 * Test Item Value Reference Range Interpretation Comments Eosinophils (%) (Auto) (test code = 713-8) 0.1 0.0-6.0 [facility] CenterBasophils (%) (Auto)2018-09-30 19:19:00* Test Item Value Reference Range Interpretation Comments Basophils (%) (Auto) (test code = 706-2) 0.1 0.0-1.0 [facility] CenterIM GRANULOCYTES %2018-09-30 19:19:00* Test Item Value Reference Range Interpretation Comments IM GRANULOCYTES % (test code = IM GRANULOCYTES %) 1.6 0.0- 1.0 H [facility] CenterNeutrophils # (Auto)2018-09-30 19:19:00* Test Item Value Reference Range Interpretation Comments Neutrophils # (Auto) (test code = 751-8) 8.2 2.1-6.9 H [facility] CenterLymphocytes # (Auto)2018-09-30 19:19:00* Test Item Value Reference Range Interpretation Comments Lymphocytes # (Auto) (test code = 36652-9) 1.8 1.0-3.2 [facility] CenterMonocytes # (Auto)2018-09-30 19:19:00* Test Item Value Reference Range Interpretation Comments Monocytes # (Auto) (test code = 742-7) 1.0 0.2-0.8 [facility] CenterEosinophils # (Auto)2018-09-30 19:19:00* Test Item Value Reference Range Interpretation Comments Eosinophils # (Auto) (test code = 711-2) 0.0 0.0-0.4 [facility] CenterBasophils # (Auto)2018-09-30 19:19:00* Test Item Value Reference Range Interpretation Comments Basophils # (Auto) (test code = 704-7) 0.0 0.0-0.1 [facility] CenterAbsolute Immature Granulocyte (auto 2018-09-30 19:19:00* Test Item Value Reference Range Interpretation Comments Absolute Immature Granulocyte (auto (savanah t code = Absolute Immature Granulocyte (auto) 0.18 0-0.1 H [facility] CenterWhite Blood Plsas9428-27-32 19:19:00* Test Item Value Reference Range Interpretation Comments White Blood Count (test code = 6690-2) 11.19 4.8-10.8 H [facility] CenterRed Blood Hsuue6572-17-02 19:19:00* Test Item Value Reference Range Interpretation Comments Red Blood Count (test code = 789-8) 4.76 4.3-5.7 [facility] CenterHemoglobin2019-05-18 19:19:00* Test Item Value Reference Range Interpretation Comments Hemoglobin (test code = 64934-5) 14.7 14.0-18.0 [facility] CenterHematocrit2019-05-18 19:19:00* Test Item Value Reference Range Interpretation Comments Hematocrit (test code = 4544-3) 42.5 38.2-49.6 [facility] CenterMean Corpuscular Joprem8831-91-17 19:19:00* Test Item Value Reference Range Interpretation Comments Mean Corpuscular Volume (test code = 787-2) 89.3 81-99 [facility] CenterMean Corpuscular Qhjxytlsow7267-49-79 19:19:00* Test Item Value Reference Range Interpretation Comments Mean Corpuscular Hemoglobin (test code = 785-6) 30.9 28-32 [facility] CenterMean Corpuscular Hemoglobin Concent 2018-09-30 19:19:00* Test Item Value Reference Range Interpretation Comments Mean Corpuscular Hemoglobin Concent (test code = 786-4) 34.6 31-35 [facility] CenterRed Cell Distribution Dhcyl7522-12-29 19:19:00* Test Item Value Reference Range Interpretation Comments Red Cell Distribution Width (test code = 95068-1) 16.0 11.7 -14.4 H [facility] CenterPlatelet Dfzpc8355-06-09 19:19:00* Test Item Value Reference Range Interpretation Comments Platelet Count (test code = 777-3) 257 140-360 [facility] CenterNeutrophils (%) (Auto)2018-09-30 19:19:00 * Test Item Value Reference Range Interpretation Comments Neutrophils (%) (Auto) (test code = 62943-9) 73.5 38.7-80.0 [facility] CenterLymphocytes (%) (Auto)2018-09-30 19:19:00 * Test Item Value Reference Range Interpretation Comments Lymphocytes (%) (Auto) (test code = 736-9) 15.7 18.0-39.1 L [facility] CenterMonocytes (%) (Auto)2018-09-30 19:19:00* Test Item Value Reference Range Interpretation Comments Monocytes (%) (Auto) (test code = 5905-5) 9.0 4.4-11.3 [facility] CenterEosinophils (%) (Auto)2018-09-30 19:19:00 * Test Item Value Reference Range Interpretation Comments Eosinophils (%) (Auto) (test code = 713-8) 0.1 0.0-6.0 [facility] CenterBasophils (%) (Auto)2018-09-30 19:19:00* Test Item Value Reference Range Interpretation Comments Basophils (%) (Auto) (test code = 706-2) 0.1 0.0-1.0 [facility] CenterIM GRANULOCYTES %2018-09-30 19:19:00* Test Item Value Reference Range Interpretation Comments IM GRANULOCYTES % (test code = IM GRANULOCYTES %) 1.6 0.0- 1.0 H [facility] CenterNeutrophils # (Auto)2018-09-30 19:19:00* Test Item Value Reference Range Interpretation Comments Neutrophils # (Auto) (test code = 751-8) 8.2 2.1-6.9 H [facility] CenterLymphocytes # (Auto)2018-09-30 19:19:00* Test Item Value Reference Range Interpretation Comments Lymphocytes # (Auto) (test code = 58832-7) 1.8 1.0-3.2 [facility] CenterMonocytes # (Auto)2018-09-30 19:19:00* Test Item Value Reference Range Interpretation Comments Monocytes # (Auto) (test code = 742-7) 1.0 0.2-0.8 H [facility] CenterEosinophils # (Auto)2018-09-30 19:19:00* Test Item Value Reference Range Interpretation Comments Eosinophils # (Auto) (test code = 711-2) 0.0 0.0-0.4 [facility] CenterBasophils # (Auto)2018-09-30 19:19:00* Test Item Value Reference Range Interpretation Comments Basophils # (Auto) (test code = 704-7) 0.0 0.0-0.1 [facility] CenterAbsolute Immature Granulocyte (auto 2018-09-30 19:19:00* Test Item Value Reference Range Interpretation Comments Absolute Immature Granulocyte (auto (savanah t code = Absolute Immature Granulocyte (auto) 0.18 0-0.1 H [facility] CenterTROPONIN-[id number] 13:02:00* Test Item Value Reference Range Interpretation Comments TROPONIN-I (test code = TROPI) <0.015 ng/mL 0-0.045 N COMMENTS TO SENIOR UI DESIGNER: COLLECT 3 HOURS AFTER PREVIOUS [id number]-[id number] 09:24:00* Test Item Value Reference Range Interpretation Comments TROPONIN-I (test code = TROPI) <0.015 ng/mL 0-0.045 N COMMENTS TO SENIOR UI DESIGNER: COLLECT 3 HOURS AFTER PREVIOUS SAMPLEB-TYPE NATRIURETIC CUUMKIV1067-43-66 02:18:00* Test Item Value Reference Range Interpretation Comments B-TYPE NATRIURETIC PEPTIDE (test code = BNP) 25.59 pgram/mL 0-100 N - XR CHEST 1 [id number] 01:04:00 FAX: Manuelito Padgett MD [phone] [place]: [facility]: [facility] FAX: Jocelyn Schmitz MD [phone] Name: TREVONTEDDY Coats [facility] : 1945 Age/S: 73/M [address] [facility] Unit #: [id number] Loc: [place] [address] Phys: Jocelyn Schmitz MD Acct: [id number] Dis Date: Status: REG ER PHONE #: [phone] Exam Date: 09/19/2018 0110 FAX #: [phone] Reason: CHEST PAIN EXAMS: CPT CODE: [id number] XR CHEST 1 V [id number] AFTER HOURS SERVICE ON: 09/19/2018 1:03 AM AP Portable Chest Location Code M12 HISTORY: CHEST PAIN FINDINGS: Mild linear scarring noted in the left upper lobe. There are no infiltrates. There are no pleural effusions. There is no pneumothorax. Cardiac silhouette and mediastinum appear within normal limits. IMPRESSION: No active pulmonary findings. at 0104 Reported and signed by: Erik Bell M.D. CC: Manuelito Ford MD; Jocelyn Schmitz MD Technologist: Melany Riggins Trnscrd Date/Time/By: 09/19/2018 (0104) : By: [email or web address] Orig Print D/T: S: 09/19/2018 (0110) PAGE 1 Signed Report CBC W/O DIFF 2018-09-19 01:02:00* Test Item Value Reference Range Interpretation Comments WHITE BLOOD CELL (test code = WBC) 6.4 K/mm3 4.5-12.5 N RED BLOOD CELL (test code = RBC) 4.54 mill/mm3 4.0-5.8 N HEMOGLOBIN (test code = HGB) 13.4 gram/dL 13.0-17.5 N HEMATOCRIT (test code = HCT) 42.0 % 42.0-52.0 N MEAN CELL VOLUME (test code = MCV) 92.5 fL 80-98 N MEAN CELL HGB (test code = MCH) 29.5 picogram 27.0-33.0 N MEAN CELL HGB CONCETRATION (test code = MCHC) 31.9 gram/dL 33.0-36. 0 L RED CELL DISTRIBUTION WIDTH (test code = RDW) 16.0 % 11.6-16. 2 N PLATELET COUNT (test code = PLT) 204 K/mm3 150-450 N MEAN PLATELET VOLUME (test code = MPV) 10.7 fL 6.7-11.0 N PROTHROMBIN [id number] 00:57:00* Test Item Value Reference Range Interpretation Comments PROTHROMBIN TIME PATIENT (test code = PTP) 11.4 seconds 9.0-14.0 N INTERNATIONAL NORMAL RATIO (test code = INR) 1.0 0.8-1.2 N The therapeutic range for oral anticoagulant therapy formost indications is an international normalized ratio (INR)of between 2.0 and 3.0. The recommended therapeutic INRrange for various clinical situations is listed below: Clinical Situation INR range Pulmonary e mbolism treatment (2.0-3.0)Venous thrombosis treatmentVenous thrombosis prophylaxis (high risk surgery)Prevention of systemic embolism from: Acute myocardial infarction Valvular heart disease Atrial fibrillation Mechanical prosthetic heart valves (2.5-3.5) IS PATIENT ON ANTICOAGULANTS? NTHROMBOPLASTIN TIME [id number] 00:57:00* Test Item Value Reference Range Interpretation Comments THROMBOPLASTIN TIME PARTIAL (test code = PTT) 31.4 seconds 25.0-36. 5 N IS PATIENT ON ANTICOAGULANTS? NBASIC METABOLIC [id number] 00:56:00* Test Item Value Reference Range Interpretation Comments SODIUM (test code = NA) 141 mmol/L 136-145 N POTASSIUM (test code = K) 3.8 mmol/L 3.5-5.1 N CHLORIDE (test code = CL) 106.0 mmol/L 98-107 N CARBON DIOXIDE (test code = CO2) 24.0 mmol/L 21-32 N ANION GAP (test code = GAP) 14.8 10-20 N GLUCOSE (test code = GLU) 124 mg/dL 74-106 H BLOOD UREA NITROGEN (test code = BUN) 19 mg/dL 7-18 H GLOMERULAR FILTRATION RATE (test code = GFR) 46 mL/min >=60 Estimated GFR by using Modified MDRD formula.Chronic kidney disease is defined as either kidney damageor GFR <60 mL/min/1.73 m2 for >3 months. CREATININE (test code = CREAT) 1.50 mg/dL 0.7-1.3 H BUN/CREATININE RATIO (test code = BUN/CREA) 12.7 10-20 N CALCIUM (test code = CA) 9.1 mg/dL 8.5-10.1 N HEPATIC FUNCTION [id number] 00:56:00* Test Item Value Reference Range Interpretation Comments TOTAL PROTEIN (test code = PROT) 7.9 gram/dL 6.4-8.2 N ALBUMIN (test code = ALB) 3.7 g/dL 3.4-5.0 N GLOBULIN (test code = GLOB) 4.2 gram/dL 2.7-4.2 N ALBUMIN/GLOBULIN RATIO (test code = A/G) 0.9 0.75-1.50 N BILIRUBIN TOTAL (test code = BILT) 0.40 mg/dL 0.0-1.0 N BILIRUBIN DIRECT (test code = BILD) 0.15 mg/dL 0.0-0.20 N SGOT/AST (test code = AST) 16 IUnit/L 15-37 N SGPT/ALT (test code = ALT) 20 IUnit/L 12-78 N ALKALINE PHOSPHATASE TOTAL (test code = ALKP) 114 IUnit/L 45-117 N Note change in reference range due to change in reagent. [id number] 00:56:00* Test Item Value Reference Range Interpretation Comments LIPASE (test code = LIP) 64 U/L 73.0-393.0 L [id number] 00:56:00* Test Item Value Reference Range Interpretation Comments MAGNESIUM (test code = MAG) 2.0 mg/dL 1.8-2.4 N [id number] 00:56:00* Test Item Value Reference Range Interpretation Comments TROPONIN-I (test code = TROPI) <0.015 ng/mL 0-0.045 N BASIC METABOLIC [id number] 00:45:00* Test Item Value Reference Range Interpretation Comments SODIUM (test code = NA) 141 mmol/L 136-145 N POTASSIUM (test code = K) 3.8 mmol/L 3.5-5.1 N CHLORIDE (test code = CL) 106.0 mmol/L 98-107 N CARBON DIOXIDE (test code = CO2) mmol/L 21-32 ANION GAP (test code = GAP) 10-20 GLUCOSE (test code = GLU) mg/dL 74-106 BLOOD UREA NITROGEN (test code = BUN) mg/dL 7-18 GLOMERULAR FILTRATION RATE (test code = GFR) mL/min >=60 CREATININE (test code = CREAT) mg/dL 0.7-1.3 BUN/CREATININE RATIO (test code = BUN/CREA) 10-20 CALCIUM (test code = CA) mg/dL 8.5-10.1 HEPATIC FUNCTION [id number] 00:45:00* Test Item Value Reference Range Interpretation Comments TOTAL PROTEIN (test code = PROT) gram/dL 6.4-8.2 ALBUMIN (test code = ALB) g/dL 3.4-5.0 GLOBULIN (test code = GLOB) gram/dL 2.7-4.2 ALBUMIN/GLOBULIN RATIO (test code = A/G) 0.75-1.50 BILIRUBIN TOTAL (test code = BILT) mg/dL 0.0-1.0 BILIRUBIN DIRECT (test code = BILD) mg/dL 0.0-0.20 SGOT/AST (test code = AST) IUnit/L 15-37 SGPT/ALT (test code = ALT) IUnit/L 12-78 ALKALINE PHOSPHATASE TOTAL (test code = ALKP) IUnit/L 45-117 [id number] 00:45:00* Test Item Value Reference Range Interpretation Comments LIPASE (test code = LIP) U/L 73.0-393.0 [id number] 00:45:00* Test Item Value Reference Range Interpretation Comments MAGNESIUM (test code = MAG) mg/dL 1.8-2.4 [id number]-[id number] 00:45:00* Test Item Value Reference Range Interpretation Comments TROPONIN-I (test code = TROPI) ng/mL 0-0.045 ABDOMEN-1VIEW (KUB)2018-08-31 18:34:00 [place] [address] Patient Name: TEDDY LESTER MR #: [id number] : 1945 Age/Sex: 73/M Req #: [id number] Adm Physician: Ordered by: DORY CLOUD MD Report #: [id number] Location: ER Room/Bed: Procedure: [id number] DX/ABDOMEN-1VIEW (KUB) Exam Date: 08/31/18 Exam Devon e: 1825 REPORT STATUS: Signed Ex am: Abdominal film Clinical History: Left-sided pain Comparison: None . DISCUSSION: Nonobstructive bowel gas pattern. No free air. Prior multilevel vertebroplasty. IMPRESSION: 1. Nonobstructive bowel gas pattern. Signed by: Dr. Jessica Tapia M.D. on 08/31/2018 6:35 PM Dictated By: JESSICA TAPIA MD 34 Transcribed By: ERICH on 08/31/181834 COPY TO: DORY SHARMA MD CT CHEST [id number] 21:15:00 [place] [address] Patient Name: TEDDY LESTER MR #: [id number] : 1945 Age/Sex: 73/M Req #: [id number] Adm Physician: Ordered by: DORY CLOUD MD Report #: [id number] Location: ER Room/Bed: Procedure: [id number] CT/CT CHEST W Exam Date: 07/20/18 Exam Time: 2024 REPORT STATUS: Signed EXAM: CT Ch est WITH contrast (PE Protocol) INDICATION: Chest pain. Rule out PE. r/o pe [id number] COMPARISON: CTA chest abdomen and pelvis 06/01/2018 TECHNIQUE: Chest was scanned utilizing a multidetector helical scanner from the lung apex through the level of the diaphragm after administration of IV c ontrast. Thin section reconstructions were obtained with special concentration on the pulmonary arteries. Coronal and sagittal reformations were obtained. P ulmonary embolism protocol was performed. IV CONTRAST: 100 mL of Isovue 370 COMPLICATIONS: None RADIATION DOSE: Total DLP: 678.8 mGy* cm Estimated effective dose: (DLP x 0.014 x size factor) mSv Dose modulation, iterative reconstruction, and/or weight based adjustment of the mA /kV was utilized to reduce the radiation dose to as low as reasonably achievab le. FINDINGS: LINES/ TUBES: None. LUNGS AND AIRWAYS: No filling defect is identified within the pulmonary arteries to the segmental level. Bi apical scarring. No consolidations. Airways are normal. PLEURA: The pleu ral spaces are clear. HEART AND MEDIASTINUM: The thyroid gland is normal. C alcified mediastinal and hilar lymph nodes. No mediastinal, hilar or axillary lymphadenopathy. The heart is normal in size.. Trace pericardial fluid. Tort uous aorta.. Main pulmonary artery measures 2.9 cm in diameter and the ascend ing aorta measures 4 cm, mildly ectatic. Median sternotomy wires and CABG clip s. UPPER ABDOMEN: Small hiatal hernia. Cholecystectomy. Colonic diverticulo sis without diverticulitis. Left renal 4.1 cm cyst. Right renal 1.7 cm cyst. BONES: Diffuse osseous demineralization. No acute osseous abnormalities. M ultiple stable compression deformities and changes of vertebroplasty. SOFT TISSUES: Unremarkable. IMPRESSION: No pulmonary emboli or acute abnormal ities. Signed by: DR. Jamel Jose MD on 07/20/2018 9:25 PM Dictated By: JAMEL JOSE MD Transcribed By: ERICH on 07/20/182124 COPY TO: DORY CLOUD MD Creatine Kinase [id number] 20:12:00* Test Item Value Reference Range Interpretation Comments Creatine Kinase MB (test code = 27039-8) 1.10 0-5.0 [facility] CenterTroponin [id number] 20:12:00* Test Item Value Reference Range Interpretation Comments Troponin I (test code = IHD7758) 0.022 0-0.300 [facility] CenterCreatine Kinase [id number] 20:12:00* Test Item Value Reference Range Interpretation Comments Creatine Kinase MB (test code = 24312-2) 1.10 0-5.0 [facility] CenterTroponin [id number] 20:12:00* Test Item Value Reference Range Interpretation Comments Troponin I (test code = OPX4493) 0.022 0-0.300 [facility] Xzpya1430-08-61 20:04:00* Test Item Value Reference Range Interpretation Comments Sodium Level (test code = 2951-2) 134 136-145 L [facility] CenterPotassium Aucxq0416-12-14 20:04:00* Test Item Value Reference Range Interpretation Comments Potassium Level (test code = 2823-3) 4.1 3.5-5.1 [facility] CenterChloride [id number] 20:04:00* Test Item Value Reference Range Interpretation Comments Chloride Level (test code = 2075-0) 105 98-107 [facility] CenterCarbon Dioxide Oxgbt9877-36-10 20:04:00* Test Item Value Reference Range Interpretation Comments Carbon Dioxide Level (test code = 2028-9) 19 22-29 L [facility] CenterAnion [id number] 20:04:00* Test Item Value Reference Range Interpretation Comments Anion Gap (test code = 35999-0) 14.1 8-16 [facility] CenterBlood Urea Fkdbwvqn0117-91-16 20:04:00* Test Item Value Reference Range Interpretation Comments Blood Urea Nitrogen (test code = 3094-0) 21 7-26 [facility] CenterCreatinine2019-03-07 20:04:00* Test Item Value Reference Range Interpretation Comments Creatinine (test code = 2160-0) 1.14 0.72-1.25 [facility] CenterBUN/Creatinine Fxpwj8309-21-16 20:04:00* Test Item Value Reference Range Interpretation Comments BUN/Creatinine Ratio (test code = 3097-3) 18 6-25 [facility] CenterEstimat Glomerular Filtration Rate 2018-07-20 20:04:00* Test Item Value Reference Range Interpretation Comments Estimat Glomerular Filtration Rate (test code = 558589508) > 60 >60 Ranges were taken from the National Kidney Disease Education Program and the [facility] literature.Reference ranges:60 or greater: Ciirht29-23 ( for 3 consecutive months): Chronic kidney disease 15 or less: Kidney failureCHI [facility] CampusGlucose Tnfri8191-85-72 20:04:00* Test Item Value Reference Range Interpretation Comments Glucose Level (test code = BBR7861) 132 74-118 H [facility] CenterCalcium Ftnok8841-54-61 20:04:00* Test Item Value Reference Range Interpretation Comments Calcium Level (test code = 10676-9) 9.2 8.4-10.2 [facility] CenterTotal Xfudnzaqc1972-90-87 20:04:00* Test Item Value Reference Range Interpretation Comments Total Bilirubin (test code = 1975-2) 0.4 0.2-1.2 [facility] CenterAspartate Amino Transf (AST/SGOT) 2018-07-20 20:04:00* Test Item Value Reference Range Interpretation Comments Aspartate Amino Transf (AST/SGOT) (test code = Aspartate Amino Transf (AST/SGOT)) 11 5-34 [facility] CenterAlanine Aminotransferase (ALT/SGPT) 2018-07-20 20:04:00* Test Item Value Reference Range Interpretation Comments Alanine Aminotransferase (ALT/SGPT) (test code = 1742-6) 10 0-55 [facility] CenterTotal Ollchjy3157-55-53 20:04:00* Test Item Value Reference Range Interpretation Comments Total Protein (test code = 2885-2) 7.5 6.5-8.1 [facility] CenterAlbumin2019-03-07 20:04:00* Test Item Value Reference Range Interpretation Comments Albumin (test code = 1751-7) 3.8 3.5-5.0 [facility] CenterGlobulin2019-03-07 20:04:00* Test Item Value Reference Range Interpretation Comments Globulin (test code = 25099-5) 3.7 2.3-3.5 H [facility] CenterAlbumin/Globulin Ubfto4453-23-37 20:04:00 * Test Item Value Reference Range Interpretation Comments Albumin/Globulin Ratio (test code = 1759-0) 1.0 0.8-2.0 [facility] CenterAlkaline Seqjlrxgrhr7928-47-11 20:04:00* Test Item Value Reference Range Interpretation Comments Alkaline Phosphatase (test code = 6768-6) 94 40-150 [facility] CenterCreatine Aebvla6803-73-80 20:04:00* Test Item Value Reference Range Interpretation Comments Creatine Kinase (test code = 2157-6) 31 30-200 [facility]odium Nlwlb6495-61-17 20:04:00* Test Item Value Reference Range Interpretation Comments Sodium Level (test code = 2951-2) 134 136-145 L [facility] CenterPotassium Gylxe7698-51-43 20:04:00* Test Item Value Reference Range Interpretation Comments Potassium Level (test code = 2823-3) 4.1 3.5-5.1 [facility] CenterChloride Ktgew3323-92-14 20:04:00* Test Item Value Reference Range Interpretation Comments Chloride Level (test code = 2075-0) 105 98-107 [facility] CenterCarbon Dioxide Neonh7255-53-12 20:04:00* Test Item Value Reference Range Interpretation Comments Carbon Dioxide Level (test code = 2028-9) 19 22-29 L [facility] CenterAnion Xbj9033-80-31 20:04:00* Test Item Value Reference Range Interpretation Comments Anion Gap (test code = 05731-0) 14.1 8-16 [facility] CenterBlood Urea Xfyzcqmz0405-33-38 20:04:00* Test Item Value Reference Range Interpretation Comments Blood Urea Nitrogen (test code = 3094-0) 21 7-26 [facility] CenterCreatinine2019-03-07 20:04:00* Test Item Value Reference Range Interpretation Comments Creatinine (test code = 2160-0) 1.14 0.72-1.25 [facility] CenterBUN/Creatinine Doaze8252-63-93 20:04:00* Test Item Value Reference Range Interpretation Comments BUN/Creatinine Ratio (test code = 3097-3) 18 6-25 [facility] CenterEstimat Glomerular Filtration Rate 2018-07-20 20:04:00* Test Item Value Reference Range Interpretation Comments Estimat Glomerular Filtration Rate (test code = 894622795) > 60 >60 Ranges were taken from the National Kidney Disease Education Program and the [facility] literature.Reference ranges:60 or greater: Xfhmlk97-56 ( for 3 consecutive months): Chronic kidney disease 15 or less: Kidney failureLas Palmas Medical CenterGlucose Gcdnl6744-08-62 20:04:00* Test Item Value Reference Range Interpretation Comments Glucose Level (test code = CPG5275) 132 74-118 H [facility] CenterCalcium Isrkt9766-29-91 20:04:00* Test Item Value Reference Range Interpretation Comments Calcium Level (test code = 18585-6) 9.2 8.4-10.2 [facility] CenterTotal Xhunorgib3463-39-46 20:04:00* Test Item Value Reference Range Interpretation Comments Total Bilirubin (test code = 1975-2) 0.4 0.2-1.2 [facility] CenterAspartate Amino Transf (AST/SGOT) 2018-07-20 20:04:00* Test Item Value Reference Range Interpretation Comments Aspartate Amino Transf (AST/SGOT) (test code = Aspartate Amino Transf (AST/SGOT)) 11 5-34 [facility] CenterAlanine Aminotransferase (ALT/SGPT) 2018-07-20 20:04:00* Test Item Value Reference Range Interpretation Comments Alanine Aminotransferase (ALT/SGPT) (test code = 1742-6) 10 0-55 [facility] CenterTotal Iiotjwj7899-77-78 20:04:00* Test Item Value Reference Range Interpretation Comments Total Protein (test code = 2885-2) 7.5 6.5-8.1 [facility] CenterAlbumin2019-03-07 20:04:00* Test Item Value Reference Range Interpretation Comments Albumin (test code = 1751-7) 3.8 3.5-5.0 [facility] CenterGlobulin2019-03-07 20:04:00* Test Item Value Reference Range Interpretation Comments Globulin (test code = 19517-6) 3.7 2.3-3.5 H [facility] CenterAlbumin/Globulin Ftnea7949-80-75 20:04:00 * Test Item Value Reference Range Interpretation Comments Albumin/Globulin Ratio (test code = 1759-0) 1.0 0.8-2.0 [facility] CenterAlkaline Fdhlfciwgyh9657-86-32 20:04:00* Test Item Value Reference Range Interpretation Comments Alkaline Phosphatase (test code = 6768-6) 94 40-150 [facility] CenterCreatine Ottmwy7709-75-14 20:04:00* Test Item Value Reference Range Interpretation Comments Creatine Kinase (test code = 2157-6) 31 30-200 [facility] CenterWhite Blood Zsfvk6787-48-10 19:48:00* Test Item Value Reference Range Interpretation Comments White Blood Count (test code = 6690-2) 6.86 4.8-10.8 [facility] CenterRed Blood Jqtel5964-72-56 19:48:00* Test Item Value Reference Range Interpretation Comments Red Blood Count (test code = 789-8) 4.38 4.3-5.7 [facility] CenterHemoglobin2019-03-07 19:48:00* Test Item Value Reference Range Interpretation Comments Hemoglobin (test code = 81742-9) 13.4 14.0-18.0 L [facility] CenterHematocrit2019-03-07 19:48:00* Test Item Value Reference Range Interpretation Comments Hematocrit (test code = 4544-3) 39.9 38.2-49.6 [facility] CenterMean Corpuscular Ftxvfy0113-39-09 19:48:00* Test Item Value Reference Range Interpretation Comments Mean Corpuscular Volume (test code = 787-2) 91.1 81-99 [facility] CenterMean Corpuscular Updejucxfw3498-50-16 19:48:00* Test Item Value Reference Range Interpretation Comments Mean Corpuscular Hemoglobin (test code = 785-6) 30.6 28-32 [facility] CenterMean Corpuscular Hemoglobin Concent 2018-07-20 19:48:00* Test Item Value Reference Range Interpretation Comments Mean Corpuscular Hemoglobin Concent (test code = 786-4) 33.6 31-35 [facility] CenterRed Cell Distribution Qxbdn9443-38-80 19:48:00* Test Item Value Reference Range Interpretation Comments Red Cell Distribution Width (test code = 14497-1) 16.1 11.7 -14.4 H [facility] CenterPlatelet Kmwqy9999-85-12 19:48:00* Test Item Value Reference Range Interpretation Comments Platelet Count (test code = 777-3) 217 140-360 [facility] CenterNeutrophils (%) (Auto)2018-07-20 19:48:00 * Test Item Value Reference Range Interpretation Comments Neutrophils (%) (Auto) (test code = 66452-2) 73.0 38.7-80.0 [facility] CenterLymphocytes (%) (Auto)2018-07-20 19:48:00 * Test Item Value Reference Range Interpretation Comments Lymphocytes (%) (Auto) (test code = 736-9) 16.2 18.0-39.1 L [facility] CenterMonocytes (%) (Auto)2018-07-20 19:48:00* Test Item Value Reference Range Interpretation Comments Monocytes (%) (Auto) (test code = 5905-5) 8.7 4.4-11.3 [facility] CenterEosinophils (%) (Auto)2018-07-20 19:48:00 * Test Item Value Reference Range Interpretation Comments Eosinophils (%) (Auto) (test code = 713-8) 0.6 0.0-6.0 [facility] CenterBasophils (%) (Auto)2018-07-20 19:48:00* Test Item Value Reference Range Interpretation Comments Basophils (%) (Auto) (test code = 706-2) 0.3 0.0-1.0 [facility] CenterIM GRANULOCYTES %2018-07-20 19:48:00* Test Item Value Reference Range Interpretation Comments IM GRANULOCYTES % (test code = IM GRANULOCYTES %) 1.2 0.0- 1.0 H [facility] CenterNeutrophils # (Auto)2018-07-20 19:48:00* Test Item Value Reference Range Interpretation Comments Neutrophils # (Auto) (test code = 751-8) 5.0 2.1-6.9 [facility] CenterLymphocytes # (Auto)2018-07-20 19:48:00* Test Item Value Reference Range Interpretation Comments Lymphocytes # (Auto) (test code = 38204-4) 1.1 1.0-3.2 [facility] CenterMonocytes # (Auto)2018-07-20 19:48:00* Test Item Value Reference Range Interpretation Comments Monocytes # (Auto) (test code = 742-7) 0.6 0.2-0.8 [facility] CenterEosinophils # (Auto)2018-07-20 19:48:00* Test Item Value Reference Range Interpretation Comments Eosinophils # (Auto) (test code = 711-2) 0.0 0.0-0.4 [facility] CenterBasophils # (Auto)2018-07-20 19:48:00* Test Item Value Reference Range Interpretation Comments Basophils # (Auto) (test code = 704-7) 0.0 0.0-0.1 [facility] CenterAbsolute Immature Granulocyte (auto 2018-07-20 19:48:00* Test Item Value Reference Range Interpretation Comments Absolute Immature Granulocyte (auto (savanah t code = Absolute Immature Granulocyte (auto) 0.08 0-0.1 [facility] CenterWhite Blood Cicgc4192-37-75 19:48:00* Test Item Value Reference Range Interpretation Comments White Blood Count (test code = 6690-2) 6.86 4.8-10.8 [facility] CenterRed Blood Wckdo3269-81-53 19:48:00* Test Item Value Reference Range Interpretation Comments Red Blood Count (test code = 789-8) 4.38 4.3-5.7 [facility] [facility] 19:48[facility]00* Test Item Value Reference Range Interpretation Comments Hemoglobin (test code = 79640-2) 13.4 14.0-18.0 L [facility]ematocrit2019-[facility] 19:48:00* Test Item Value Reference Range Interpretation Comments Hematocrit (test code = 4544-3) 39.9 38.2-49.6 [facility]Mean Corpuscular [id number] 19:48:00* Test Item Value Reference Range Interpretation Comments Mean Corpuscular Volume (test code = 787-2) 91.1 81-99 [facility] Corpuscular [id number] 19:48:00* Test Item Value Reference Range Interpretation Comments Mean Corpuscular Hemoglobin (test code = 785-6) 30.6 28-32 [facility] Corp[facility] Hemoglobin Concent 2018-07-20 19:48:00* Test Item Value Reference Range Interpretation Comments Mean Corpuscular Hemoglobin Concent (test code = 786-4) 33.6 31-35 [facility] Cell Distribution [id number] 19:48:00* Test Item Value Reference Range Interpretation Comments Red Cell Distribution Width (test code = 36520-1) 16.1 11.7 -14.4 H [facility] CenterPlatelet [id number] 19:48:00* Test Item Value Reference Range Interpretation Comments Platelet Count (test code = 777-3) 217 140-360 [facility]Neutrophils (%) (Auto)2018-07-20 19:48:00 * Test Item Value Reference Range Interpretation Comments Neutrophils (%) (Auto) (test code = 23881-1) 73.0 38.7-80.0 [facility] CenterLymphocytes (%) (Auto)2018-07-20 19:48:00 * Test Item Value Reference Range Interpretation Comments Lymphocytes (%) (Auto) (test code = 736-9) 16.2 18.0-39.1 L [facility] (%) (Auto)2018-07-20 19:48:00* Test Item Value Reference Range Interpretation Comments Monocytes (%) (Auto) (test code = 5905-5) 8.7 4.4-11.3 [facility]Eosinophils (%) (Auto)2018-07-20 19:48:00 * Test Item Value Reference Range Interpretation Comments Eosinophils (%) (Auto) (test code = 713-8) 0.6 0.0-6.0 [facility] (%) (Auto)2018-07-20 19:48:00* Test Item Value Reference Range Interpretation Comments Basophils (%) (Auto) (test code = 706-2) 0.3 0.0-1.0 [facility] CenterIM GRANULOCYTES %2018-07-20 19:48:00* Test Item Value Reference Range Interpretation Comments IM GRANULOCYTES % (test code = IM GRANULOCYTES %) 1.2 0.0- 1.0 H [facility] CenterNeutrophils # (Auto)2018-07-20 19:48:00* Test Item Value Reference Range Interpretation Comments Neutrophils # (Auto) (test code = 751-8) 5.0 2.1-6.9 [facility] CenterLymphocytes # (Auto)2018-07-20 19:48:00* Test Item Value Reference Range Interpretation Comments Lymphocytes # (Auto) (test code = 01573-3) 1.1 1.0-3.2 [facility] CenterMonocytes # (Auto)2018-07-20 19:48:00* Test Item Value Reference Range Interpretation Comments Monocytes # (Auto) (test code = 742-7) 0.6 0.2-0.8 [facility]Eosinophils # (Auto)2018-07-20 19:48:00* Test Item Value Reference Range Interpretation Comments Eosinophils # (Auto) (test code = 711-2) 0.0 0.0-0.4 [facility]Basophils # (Auto)2018-07-20 19:48:00* Test Item Value Reference Range Interpretation Comments Basophils # (Auto) (test code = 704-7) 0.0 0.0-0.1 [facility] CenterAbsolute Immature Granulocyte (auto 2018-07-20 19:48:00* Test Item Value Reference Range Interpretation Comments Absolute Immature Granulocyte (auto (savanah t code = Absolute Immature Granulocyte (auto) 0.08 0-0.1 [facility] CenterCBC W/AUTO [id number] 14:14:00* Test Item Value Reference Range Interpretation Comments WHITE BLOOD CELL (test code = WBC) 5.59 x10 3/uL 4.5-11.0 N RED BLOOD CELL (test code = RBC) 4.25 x10 6/uL 4.00-5.60 N HEMOGLOBIN (test code = HGB) 12.9 g/dL 12.5-16.9 N HEMATOCRIT (test code = HCT) 40.7 % 37.5-50.7 N MEAN CELL VOLUME (test code = MCV) 95.8 fL 81.0-99.0 N MEAN CELL HGB (test code = MCH) 30.4 pg 27.0-33.0 N MEAN CELL HGB CONCETRATION (test code = MCHC) 31.7 g/dL 33.0-37. 0 L RED CELL DISTRIBUTION WIDTH CV (test code = RDW) 16.2 % 11.5- 14.5 H RED CELL DISTRIBUTION WIDTH SD (test code = RDW-SD) 56.3 fL 37 .0-54.0 H PLATELET COUNT (test code = PLT) 199 x10 3/uL 150-400 N MEAN PLATELET VOLUME (test code = MPV) 10.9 fL 7.0-9.0 H NEUTROPHIL % (test code = NT%) 70.9 % 56.0-77.0 N IMMATURE GRANULOCYTE % (test code = IG%) 0.7 % 0.0-2.0 N LYMPHOCYTE % (test code = LY%) 17.7 % 14.0-32.0 N MONOCYTE % (test code = MO%) 9.3 % 4.8-9.0 H EOSINOPHIL % (test code = EO%) 0.9 % 0.3-3.7 N BASOPHIL % (test code = BA%) 0.5 % 0.0-2.0 N NUCLEATED RBC % (test code = NRBC%) 0.0 % 0-0 N NEUTROPHIL # (test code = NT#) 3.96 x10 3/uL 2.0-7.6 N IMMATURE GRANULOCYTE # (test code = IG#) 0.04 x10 3/uL 0.00-0.03 H LYMPHOCYTE # (test code = LY#) 0.99 x10 3/uL 1.0-3.8 L MONOCYTE # (test code = MO#) 0.52 x10 3/uL 0.1-0.8 N EOSINOPHIL # (test code = EO#) 0.05 x10 3/uL 0.0-0.2 N BASOPHIL # (test code = BA#) 0.03 x10 3/uL 0.0-0.2 N NUCLEATED RBC # (test code = NRBC#) 0.00 x10 3/uL 0.0-0.1 N MANUAL DIFF REQUIRED (test code = MDIFF) NO CBC W/AUTO [id number] 09:28:00* Test Item Value Reference Range Interpretation Comments WHITE BLOOD CELL (test code = WBC) 5.59 x10 3/uL 4.5-11.0 N RED BLOOD CELL (test code = RBC) 4.25 x10 6/uL 4.00-5.60 N HEMOGLOBIN (test code = HGB) 12.9 g/dL 12.5-16.9 N HEMATOCRIT (test code = HCT) 40.7 % 37.5-50.7 N MEAN CELL VOLUME (test code = MCV) 95.8 fL 81.0-99.0 N MEAN CELL HGB (test code = MCH) 30.4 pg 27.0-33.0 N MEAN CELL HGB CONCETRATION (test code = MCHC) 31.7 g/dL 33.0-37. 0 L RED CELL DISTRIBUTION WIDTH CV (test code = RDW) 16.2 % 11.5- 14.5 H RED CELL DISTRIBUTION WIDTH SD (test code = RDW-SD) 56.3 fL 37 .0-54.0 H PLATELET COUNT (test code = PLT) 199 x10 3/uL 150-400 N MEAN PLATELET VOLUME (test code = MPV) 10.9 fL 7.0-9.0 H NEUTROPHIL % (test code = NT%) 70.9 % 56.0-77.0 N IMMATURE GRANULOCYTE % (test code = IG%) 0.7 % 0.0-2.0 N LYMPHOCYTE % (test code = LY%) 17.7 % 14.0-32.0 N MONOCYTE % (test code = MO%) 9.3 % 4.8-9.0 H EOSINOPHIL % (test code = EO%) 0.9 % 0.3-3.7 N BASOPHIL % (test code = BA%) 0.5 % 0.0-2.0 N NUCLEATED RBC % (test code = NRBC%) 0.0 % 0-0 N NEUTROPHIL # (test code = NT#) 3.96 x10 3/uL 2.0-7.6 N IMMATURE GRANULOCYTE # (test code = IG#) 0.04 x10 3/uL 0.00-0.03 H LYMPHOCYTE # (test code = LY#) 0.99 x10 3/uL 1.0-3.8 L MONOCYTE # (test code = MO#) 0.52 x10 3/uL 0.1-0.8 N EOSINOPHIL # (test code = EO#) 0.05 x10 3/uL 0.0-0.2 N BASOPHIL # (test code = BA#) 0.03 x10 3/uL 0.0-0.2 N NUCLEATED RBC # (test code = NRBC#) 0.00 x10 3/uL 0.0-0.1 N MANUAL DIFF REQUIRED (test code = MDIFF) BASIC METABOLIC [id number] 08:32:00* Test Item Value Reference Range Interpretation Comments SODIUM (test code = NA) 140 mEq/L 134-147 N POTASSIUM (test code = K) 5.0 mEq/L 3.4-5.0 N CHLORIDE (test code = CL) 108 mEq/L 100-108 N CARBON DIOXIDE (test code = CO2) 29 mEq/L 21-33 N ANION GAP (test code = GAP) 8 0-20 N GLUCOSE (test code = GLU) 84 mg/dL 70-110 N BLOOD UREA NITROGEN (test code = BUN) 18 mg/dL 7-18 N GLOMERULAR FILTRATION RATE (test code = GFR) 54.3 70-80 L Units of measure = ml/min/1.73 m2 CREATININE (test code = CREAT) 1.3 mg/dL 0.6-1.3 N CALCIUM (test code = CA) 9.1 mg/dL 8.0-10.5 N BASIC METABOLIC [id number] 08:09:00* Test Item Value Reference Range Interpretation Comments SODIUM (test code = NA) 141 mEq/L 134-147 N POTASSIUM (test code = K) 5.2 mEq/L 3.4-5.0 H CHLORIDE (test code = CL) 110 mEq/L 100-108 H CARBON DIOXIDE (test code = CO2) 27 mEq/L 21-33 ANION GAP (test code = GAP) 9 0-20 N GLUCOSE (test code = GLU) 91 mg/dL 70-110 N BLOOD UREA NITROGEN (test code = BUN) 19 mg/dL 7-18 H GLOMERULAR FILTRATION RATE (test code = GFR) 59.5 70-80 L Units of measure = ml/min/1.73 m2 CREATININE (test code = CREAT) 1.2 mg/dL 0.6-1.3 N CALCIUM (test code = CA) 8.7 mg/dL 8.0-10.5 N CBC W/AUTO [id number] 05:25:00* Test Item Value Reference Range Interpretation Comments WHITE BLOOD CELL (test code = WBC) 5.11 x10 3/uL 4.5-11.0 N RED BLOOD CELL (test code = RBC) 3.71 x10 6/uL 4.00-5.60 L HEMOGLOBIN (test code = HGB) 11.4 g/dL 12.5-16.9 L HEMATOCRIT (test code = HCT) 36.5 % 37.5-50.7 L MEAN CELL VOLUME (test code = MCV) 98.4 fL 81.0-99.0 MEAN CELL HGB (test code = MCH) 30.7 pg 27.0-33.0 N MEAN CELL HGB CONCETRATION (test code = MCHC) 31.2 g/dL 33.0-37. 0 L RED CELL DISTRIBUTION WIDTH CV (test code = RDW) 16.1 % 11.5- 14.5 H RED CELL DISTRIBUTION WIDTH SD (test code = RDW-SD) 58.1 fL 37 .0-54.0 H PLATELET COUNT (test code = PLT) 180 x10 3/uL 150-400 N MEAN PLATELET VOLUME (test code = MPV) 11.1 fL 7.0-9.0 H NEUTROPHIL % (test code = NT%) 75.7 % 56.0-77.0 N IMMATURE GRANULOCYTE % (test code = IG%) 0.6 % 0.0-2.0 N LYMPHOCYTE % (test code = LY%) 15.3 % 14.0-32.0 N MONOCYTE % (test code = MO%) 8.2 % 4.8-9.0 N EOSINOPHIL % (test code = EO%) 0.0 % 0.3-3.7 L BASOPHIL % (test code = BA%) 0.2 % 0.0-2.0 N NUCLEATED RBC % (test code = NRBC%) 0.0 % 0-0 N NEUTROPHIL # (test code = NT#) 3.87 x10 3/uL 2.0-7.6 N IMMATURE GRANULOCYTE # (test code = IG#) 0.03 x10 3/uL 0.00-0.03 N LYMPHOCYTE # (test code = LY#) 0.78 x10 3/uL 1.0-3.8 L MONOCYTE # (test code = MO#) 0.42 x10 3/uL 0.1-0.8 N EOSINOPHIL # (test code = EO#) 0.00 x10 3/uL 0.0-0.2 N BASOPHIL # (test code = BA#) 0.01 x10 3/uL 0.0-0.2 N NUCLEATED RBC # (test code = NRBC#) 0.00 x10 3/uL 0.0-0.1 N MANUAL DIFF REQUIRED (test code = MDIFF) NO THYROID STIMULATING [id number] 12:38:00* Test Item Value Reference Range Interpretation Comments THYROID STIMULATING HORMONE (test code = TSH) 5.58 0.42-5.4 7 H Results in vicente- International Units/mL - CT ANGIO [id number] 09:46:00 Name: [facility] : 1945 Age/S: 73 / M [address] [place], [place] [address]vd Unit #: [id number] Loc: [place] [address] Phys: Nikunj Almazan DO Acct: [id number] Dis Date: Status: REG ER PHONE #: [phone] Exam Date: 07/16/2018914 FAX #: [phone] Reason: pe EXAMS: CPT CODE: [id number] CT ANGIO CHEST 69[address] PROCEDURE: CTA CHEST, CT ABDOMEN PELVIS WITH CONTRAST INDICATION: Shortness of breath. Recent abdominal surgery. COMPARISON: CT chest dated 03/31/18. TECHNIQUE: CTA of the pulmonary arteries was performed with 100 ml Isovue 300 intravenous contrast. Multiplanar and 3-D MIP angiographic reconstructions are reviewed. Additional 2.5 mm helical images are obtained from lung bases through pubic symphysis. CT imaging performed at this location utilizes radiation dose optimization techniques which include one or more of the following: -Automated exposure control -Adjustment of the mA and/or kV according to patient size -Use of iterative reconstruction technique CT Radiation Dose DLP 1161 mGy-cm CTA CHEST: FINDINGS: PULMONARY ARTERIES: There is a small volume of nonocclusive pulmonary embolus to the posterior basilar and lateral basilar right lower lobe. MEDIASTINUM: The mediastinal contents are unremarkable. No adenopathy. There has been previous midline sternotomy HEART: The cardiac chambers are unremarkable. No pericardial effusion. VASCULAR STRUCTURES: The descending thoracic aorta shows calcified atherosclerotic plaque, tortuosity, and mild ectasia, 3.2 cm diameter. No dissection. The superior vena cava is narrow but patent. LUNGS: Lungs show mild biapical pulmonary fibrotic change. No acute al veolar consolidation or pleural fluid. UPPER ABDOMEN: Survey of vi scera may be limited by early phase of contrast enhancement. No acute abn ormality demonstrated. CT ABDOMEN AND PELVIS WITH CONTRAST FINDINGS: PAGE 1 Antonieta d Report (CONTINUED) Name: [facility] [place] : 1945 Age/S: 73 / M [address] [place] [address] Unit #: [id number] Loc: [place] [address] Phys: Nikunj Almazan DO Acct: [id number] Dis Date: Status: REG ER PHONE #: [phone] Exam Date: 07/16/2018 0 915 FAX #: [phone] Reason: pe EXAMS: CPT CODE: [id number] CT ANGIO CHEST 05891 <Continued> LIVER: Normal. GALLBLADDER: Post cholecystectomy. SPLEEN: Normal. PANCREAS: Normal. ADRENALS: Normal. KIDNEYS: Multiple renal hypodensities are in keeping with cysts. Largest cyst is at the midpole left kidney measuring 4 cm in diameter. No renal stone or hydronephrosis bilaterally. BOWEL: There is mild pancolonic diverticulosis, no CT evidence for diverticulitis. Fluid is present within distal small bowel loops and proximal colon without mucosal thickening. No zone of transition/small bowel obstruction. Stomach shows no acute abnormality APPENDIX: Normal. PERITONEUM: No free intraperitoneal fluid or air. RETROPERITONEUM: No adenopathy. The aorta shows calcified atherosclerotic plaque. PELVIS: No pelvic mass. There is circumferential thickening at the urinary bladder wall. MUSCULOSKELETAL: Chronic T7, T9, T11 insufficiency fractures noted. Previous kyphoplasty at T12, L1, L2, L3, L4, L5. Lag screws transverse the right sacroiliac joint. IMPRESSION: 1. Small volume nonocclusive pulmonary embolus to the right posterior basilar and lateral basilar right lower lobe. 2. Mildly emphysematous chest with biapical pleural thickening. 3. Tortuous and mildly ectatic descending thoracic aorta, no dissection. 4. Previous midline sternotomy and coronary artery bypass. 5. CT abdomen pelvis shows fluid-filled distal small bowel loops and proximal colon which may reflect a gastroenteritis/diarrhea condition. No evidence for colitis or small bowel obstruction. PAGE 2 Signed Report (CONTINUED) Name: TEDDY [facility] : 1945 Age/S: 73 / M [address] [place] [address] Blvd Unit #: [id number] Loc: [place], [place] [address] Phys: NorahLuigizena Rice DO Acct: [id number] Dis Date: Status: REG ER PHONE #: [phone] Exam Date: 07/16/2018 0915 FAX #: [phone] Reason: pe EXAMS: CPT CODE: [id number] CT ANGIO CHEST 80058 < Continued> 6. Previous cholecystectomy. 7. Small bilateral renal cysts. 8. Circumferential urinary bladder wall thickening suggests chronic bladder outlet obstruction. 9. Mild colonic diverticulosis, no diverticulitis. 10. Multilevel insufficiency fractures, and multilevel low thoracic and lumbar kyphoplasty noted. No acute osseous abnormality currently. The pulmonary embolus finding was called to Nikunj Almazan DO on 07/16/2018 9:45 AM. SL: [id number] at 0946 Reported and signed by: Eugenio Andrade M.D. CC: Nikunj Almazan DO; Manuelito Ford Technologist:Nina Hunter RT(R)(CT) CTDI: DLP: Trnscb Date/Time: 07/16/2018 (945) Nay Orig Print D/T: S: 07/16/2018 (0949) CTDI: DLP: PAGE 3 Signed Report - CT ABD PELVIS [id number] 09:46:00 Name: [facility]DY [facility] : 1945 Age/S: 73 / M [address] [place] [address] Blvd Unit #: [id number] Loc: [place] [address] Phys: Nikunj Almazan DO Acct: [id number] Dis Date: Status: REG ER PHONE #: [phone] Exam Date: 07/16/2018913 FAX #: [phone] Reason: abd pain EXAMS: CPT CODE: [id number] CT ABD PELVIS W/CONT 15631 PROCEDURE: CTA CHEST, CT ABDOMEN PELVIS WITH CONTRAST INDICATION: Shortness of breath. Recent abdominal surgery. COMPARISON: CT chest dated 03/31/18. TECHNIQUE: CTA of the pulmonary arteries was performed with 100 ml Isovue 300 intravenous contrast. Multiplanar and 3-D MIP angiographic reconstructions are reviewed. Additional 2.5 mm helical images are obtained from lung bases through pubic symphysis. CT imaging performed at this location utilizes radiation dose optimization techniques which include one or more of the following: -Automated exposure control -Adjustment of the mA and/or kV according to patient size - Use of iterative reconstruction technique CT Radiation Dose DLP 1161 mGy- cm CTA CHEST: FINDINGS: PULMONARY ARTERIES: There is a small volume of nonocclusive pulmonary embolus to the posterior basilar and lateral basilar right lower lobe. MEDIASTINUM: The mediastinal contents are unremarkable. No adenopathy. There has been previous midline sternotomy HEART: The cardiac chambers are unremarkable. No pericardial effusion. VASCULAR STRUCTURES: The descending thoracic aorta shows calcified atherosclerotic plaque, tortuosity, and mild ectasia, 3.2 cm diameter. No dissection. The superior vena cava is narrow but patent. LUNGS: Lungs show mild biapical pulmonary fibrotic change. No acute alveolar consolidation or pleural fluid. UPPER ABDOMEN: Survey of viscera may be limited by early phase of contrast enhancement. No acute abnormality demonstrated. CT ABDOMEN AND PELVIS WITH CONTRAST FINDINGS: PAGE 1 Signed Report (CONTINUED) Name: TEDDY LE[facility] : 1945 Age/S: 73 / M [address] [place], [place] [address]vd Unit #: [id number] Loc: [place] [address] Phys: Nikunj Almazan DO Acct: [id number] Dis Date: Status: REG ER PHONE #: [phone] Exam Date: 07/16/2018913 FAX #: [phone] Reason: abd pain EXAMS: CPT CODE: [id number] CT ABD PELVIS W/CONT 82546 < Continued> LIVER: Normal. GALLBLADDER: Post cholecystectomy. SPLEEN: Normal. PANCREAS: Normal. ADRENALS: Normal. KIDNEYS: Multiple renal hypodensities are in keeping with cysts. Largest cyst is at the midpole left kidney measuring 4 cm in diameter. No renal stone or hydronephrosis bilaterally. BOWEL: There is mild pancolonic diverticulosis, no CT evidence for diverticulitis. Fluid is present within distal small bowel loops and proximal colon without mucosal thickening. No zone of transition/small bowel obstruction. Stomach shows no acute abnormality APPENDIX: Normal. PERITONEUM: No free intraperitoneal fluid or air. RETROPERITONEUM: No adenopathy. The aorta shows calcified atherosclerotic plaque. PELVIS: No pelvic mass. There is circumferential thickening at the urinary bladder wall. MUSCULOSKELETAL: Chronic T7, T9, T11 insufficiency fractures noted. Previous kyphoplasty at T12, L1, L2, L3, L4, L5. Lag screws transverse the right sacroiliac joint. IMPRESSION: 1. Small volume nonocclusive pulmonary embolus to the right posterior basilar and lateral basilar right lower lobe. 2. Mildly emphysematous chest with biapical pleural thickening. 3. Tortuous and mildly ectatic descending thoracic aorta, no dissection. 4. Previous midline sternotomy and coronary artery bypass. 5. CT abdomen pelvis shows fluid-filled distal small bowel loops and proximal colon which may reflect a gastroenteritis/diarrhea condition. No evidence for colitis or small bowel obstruction. PAGE 2 Signed Report (CONTINUED) Name: T[facility] : 1945 Age/S: 73 / M [address] [place] [address] Blvd Unit #: [id number] Loc: [place] [address] Phys: Nikunj Almazan DO Acct: [id number] Dis Date: Status: REG ER PHONE #: [phone] Exam Date: 07/16/2018913 FAX #: [phone] Reason: abd pain EXAMS: CPT CODE: [id number] CT ABD PELVIS W/CONT 90014 < Continued> 6. Previous cholecystectomy. 7. Small bilateral renal cysts. 8. Circumferential urinary bladder wall thickening suggests chronic bladder outlet obstruction. 9. Mild colonic diverticulosis, no diverticulitis. 10. Multilevel insufficiency fractures, and multilevel low thoracic and lumbar kyphoplasty noted. No acute osseous abnormality currently. The pulmonary embolus finding was called to Nikunj Almazan DO on 07/16/2018 9:45 AM. SL: [id number] at 0946 Reported and signed by: Eugenio Andrade M.D. CC: Nikunj Almazan DO; Manuelito Ford Technologist:Nina Hunter RT(R)(CT) CTDI: DLP: Trnscb Date/Time: 07/16/2018 (945) Nay Orig Print D/T: S: 07/16/2018 (49) CTDI: DLP: PAGE 3 Signed Report PROTHROMBIN [id number] 08:57:00* Test Item Value Reference Range Interpretation Comments PROTHROMBIN TIME PATIENT (test code = PTP) 11.2 SECONDS 9.3-12.9 N INTERNATIONAL NORMAL RATIO (test code = INR) 1.0 0.8-1.2 N TARGET INR BY INDICATION Indication INR1. Prophylaxis of venous thrombosis 2.0 - 3.0 (orthopedic surgery), Prophylaxis of venous thrombosis (other than high-risk surgery), Treatment of Deep Vein Thrombosis/Pulmonary Embolism, Prevention of systemic embolism - Tissue heart valves, Acute Myocardial Infarction (to prevent systemic embolism), Valvular heart disease, Atrial Fibrillation, Bileaflet mechanical valve in aortic position.2. Mechanical prosthetic valves (high risk), 2.5 - 3.5 Presence of Lupus Anticoagulant or Antiphospholipid Antibodies, Prevention of systemic embolism - Acute Myocardial Infarction (to prevent recurrent infarct). THROMBOPLASTIN TIME [id number] 08:57:00* Test Item Value Reference Range Interpretation Comments THROMBOPLASTIN TIME PARTIAL (test code = PTT) 29.9 Seconds 25.0-39. 5 N Therapeutic Range: 61.8-83.8 Sec Effective 06/13/2013 COMPREHENSIVE METABOLIC [id number] 08:53:00* Test Item Value Reference Range Interpretation Comments SODIUM (test code = NA) 138 mEq/L 134-147 N POTASSIUM (test code = K) 4.2 mEq/L 3.4-5.0 N CHLORIDE (test code = CL) 110 mEq/L 100-108 H CARBON DIOXIDE (test code = CO2) 21 mEq/L 21-33 N ANION GAP (test code = GAP) 11 0-20 N GLUCOSE (test code = GLU) 114 mg/dL 70-110 H BLOOD UREA NITROGEN (test code = BUN) 20 mg/dL 7-18 H GLOMERULAR FILTRATION RATE (test code = GFR) 59.5 70-80 L Units of measure = ml/min/1.73 m2 CREATININE (test code = CREAT) 1.2 mg/dL 0.6-1.3 N TOTAL PROTEIN (test code = PROT) 9.0 g/dL 6.4-8.2 H ALBUMIN (test code = ALB) 4.10 g/dL 3.4-5.0 N CALCIUM (test code = CA) 9.4 mg/dL 8.0-10.5 N BILIRUBIN TOTAL (test code = BILT) 0.50 mg/dL 0.0-1.0 N SGOT/AST (test code = AST) 16 IUnit/L 15-37 N SGPT/ALT (test code = ALT) 20 IUnit/L 15-65 N ALKALINE PHOSPHATASE TOTAL (test code = ALKP) 110 IUnit/L 20-125 N [id number] 08:53:00* Test Item Value Reference Range Interpretation Comments LIPASE (test code = LIP) 49 IUnit/L 73-393 L CBC W/AUTO [id number] 08:45:00* Test Item Value Reference Range Interpretation Comments WHITE BLOOD CELL (test code = WBC) 7.11 x10 3/uL 4.5-11.0 N RED BLOOD CELL (test code = RBC) 4.46 x10 6/uL 4.00-5.60 N HEMOGLOBIN (test code = HGB) 13.7 g/dL 12.5-16.9 N HEMATOCRIT (test code = HCT) 42.0 % 37.5-50.7 N MEAN CELL VOLUME (test code = MCV) 94.2 fL 81.0-99.0 N MEAN CELL HGB (test code = MCH) 30.7 pg 27.0-33.0 N MEAN CELL HGB CONCETRATION (test code = MCHC) 32.6 g/dL 33.0-37. 0 L RED CELL DISTRIBUTION WIDTH CV (test code = RDW) 15.9 % 11.5- 14.5 H RED CELL DISTRIBUTION WIDTH SD (test code = RDW-SD) 55.4 fL 37 .0-54.0 H PLATELET COUNT (test code = PLT) 250 x10 3/uL 150-400 N MEAN PLATELET VOLUME (test code = MPV) 11.0 fL 7.0-9.0 H NEUTROPHIL % (test code = NT%) 79.7 % 56.0-77.0 H IMMATURE GRANULOCYTE % (test code = IG%) 0.7 % 0.0-2.0 N LYMPHOCYTE % (test code = LY%) 13.1 % 14.0-32.0 L MONOCYTE % (test code = MO%) 6.3 % 4.8-9.0 N EOSINOPHIL % (test code = EO%) 0.1 % 0.3-3.7 L BASOPHIL % (test code = BA%) 0.1 % 0.0-2.0 N NUCLEATED RBC % (test code = NRBC%) 0.0 % 0-0 N NEUTROPHIL # (test code = NT#) 5.66 x10 3/uL 2.0-7.6 N IMMATURE GRANULOCYTE # (test code = IG#) 0.05 x10 3/uL 0.00-0.03 H LYMPHOCYTE # (test code = LY#) 0.93 x10 3/uL 1.0-3.8 L MONOCYTE # (test code = MO#) 0.45 x10 3/uL 0.1-0.8 N EOSINOPHIL # (test code = EO#) 0.01 x10 3/uL 0.0-0.2 N BASOPHIL # (test code = BA#) 0.01 x10 3/uL 0.0-0.2 N NUCLEATED RBC # (test code = NRBC#) 0.00 x10 3/uL 0.0-0.1 N MANUAL DIFF REQUIRED (test code = MDIFF) NO URINALYSIS [id number] 08:41:00* Test Item Value Reference Range Interpretation Comments UA COLOR (test code = COLU) YELLOW YEL/STRAW UA APPEARANCE (test code = APPU) CLEAR CLEAR UA GLUCOSE DIPSTICK (test code = DGLUU) NEGATIVE NEGATIVE UA BILIRUBIN DIPSTICK (test code = BILU) NEGATIVE NEGATIVE UA KETONE DIPSTICK (test code = KETU) NEGATIVE NEGATIVE UA SPECIFIC GRAVITY (test code = SGU) 1.019 1.005-1.030 N UA BLOOD DIPSTICK (test code = LEILANI) NEGATIVE NEGATIVE UA PH DIPSTICK (test code = JEET) 5.0 5.0-7.0 N UA PROTEIN DIPSTICK (test code = PROU) NEGATIVE NEGATIVE UA UROBILINIOGEN DIPSTICK (test code = URO) 0.2 mg/dL 0.2-1.0 UA NITRITE DIPSTICK (test code = LI) NEGATIVE NEGATIVE UA LEUKOCYTE ESTERASE DIPSTICK (test code = LEUU) NEGATIVE NEGA TIVE UA WBC (test code = WBCU) 0-3 WBC/HPF 0-3 UA RBC (test code = RBCU) 0-3 RBC/HPF 0-3 UA BACTERIA (test code = BACU) NONE SEEN /HPF NONE SEEN UA SQUAMOUS CELLS (test code = SQU) 0-5 /HPF NONE SEEN UA HYALINE CAST (test code = HYALU) 3-5 /LPF NONE SEEN UA MUCUS (test code = MUCU) 1+ /LPF NONE SEEN - XR CHEST 1 [id number] 08:39:00 FAX: Nikunj Almazan DO Gepp: St: REG FAX: Manuelito Padgett MD [phone] Name: TEDDY LESTER [facility] : 1945 Age/S: 73/M [address] [place] [address] Unit #: [id number] Loc: G.ERS3 [place] [address] Phys: Nikunj Almazan DO Acct: [id number] Dis Date: Status: REG ER PHONE #: [phone] Exam Date: 07/16/2018 0833 FAX #: [phone] Reason: abd pain EXAMS: CPT CODE: [id number] XR CHEST 1 V 97145 CHEST, SINGLE VIEW HISTORY: Abdominal pain Comparison made to chest x-ray dated 03/31/18. FINDINGS: The lungs are clear. The heart size and pulmonary vascularity are within normal limits. Previous midline sternotomy. Tortuous and ectatic descending thoracic aorta is stable. IMPRESSION: No interval change, no active process from 03/31/18. SL:01 at 0839 Reported and signed by: Eugenio Andrade M.D. CC: Nikunj Almazan DO; Manuelito Ford Technologist: RT Ruslan(Mindy) Trnana Date/Time/By: 07/16/2018 (0839) : By: Nay Orig Print D/T: S: 07/16/2018 (6037) PAGE 1 Signed Report - CT ABD PELVIS W/O [id number] 00:25:00 Name: TEDDY LESTER [facility] : 1945 Age/S: 73 / M [address] Unit #: [id number] [place]: [place] [address] Phys: Suzan Andino MD Acct: [id number] Dis Date: Status: REG ER PHONE #: [phone] Exam Date: 07/12/2018 0009 FAX #: [phone] Reason: ABD PAIN R SIDED EXAMS: CPT CODE: [id number] CT ABD PELVIS W/O CONT 30476 CT abdomen and pelvis without IV contrast. Indication: Abdominal pain Location: R16 Comparison: None available Technique: CT images of the abdomen and pelvis were obtained from the diaphragm to the pubic symphysis without the administration of intravenous contrast contrast. Coronal reformats are provided. One or more of the following dose reduction techniques were used: Automated exposure control, adjustment of the mA and/or kV according to patient size, and/or utilization of iterative reconstruction technique. Findings: Lungs bases: Unremarkable. Upper GI: Fluid is noted within the thickened distal esophagus/GE junction, further evaluation with endoscopy can be performed. Liver: Noncontrast appearance is unremarkable. Gallbladder: Surgically absent Pancreas: Noncontrast appearance is unremarkable. Spleen: Noncontrast appearance is unremarkable. Adrenal glands: Noncontrast appearance is unremarkable. Kidneys: Multiple renal cysts are noted bilaterally there is a nonspecific indeterminate 1.8 cm right renal hypodensity which be can further evaluated with MRI. Bowel: No bowel obstruction. The appendix is unremarkable. Peritoneum: No ascites. No free air. Fat-containing umbilical hernia is noted Vasculature and aortic vascular calcif ications are noted including at the hiatus of the celiac Pelvis: Dif fuse circumferential bladder wall thickening is nonspecific and may reflec t the sequela of chronic outlet obstruction versus cystitis, please correl ate with UA Skeletal: No acute fracture.. Postsurgical changes of the right sacroiliac joint are noted. Multilevel kyphoplasty changes are noted throughout the difficult to evaluate osteopenic lumbar spine Impression: PAGE 1 Signed Report (CONTINUED) Name: TEDDY LESTER [facility] : 1945 Age/S: 73 / M [address] Unit #: [id number] Loc: [place] [address] Phys: Suzan Andino MD Acct: [id number] Dis Date: Status: REG ER PHONE #: [phone] Exam Date: 07/12/2018 0009 FAX #: [phone] Reason: ABD PAIN R SIDED EXAMS: CPT CODE: [id number] CT ABD PELVIS W/O CONT 40062 < Continued> Although limited by the absence of IV contrast, no definite acute abnormality is seen within the abdomen and pelvis to explain the patient's symptomology Multiple renal cysts are noted bilaterally there is a nonspecific indeterminate 1.8 cm right renal hypodensity which be can further evaluated with MRI Diffuse circumferential bladder wall thickening is nonspecific and may reflect the sequela of chronic outlet obstruction versus cystitis, please correlate with UA Fluid is noted within the thickened distal esophagus/GE junction, further evaluation with endoscopy can be performed. Additional findings as detailed above at 0025 Reported and signed by: Maxine Hutchison M.D. CC: Manuelito Ford MD Technologist:LUIS ALBERTO RAMON, RT; NII AT CTDI: DLP: Trnscb Date/Time: 07/12/2018 (0025) [email or web address] Orig Print D/T: S: 07/12/2018 (0028) CTDI: DLP: PAGE 2 Signed Report BASIC METABOLIC [id number] 23:46:00* Test Item Value Reference Range Interpretation Comments SODIUM (test code = NA) 140 mmol/L 136-145 N POTASSIUM (test code = K) 4.6 mmol/L 3.5-5.1 N CHLORIDE (test code = CL) 109.0 mmol/L 98-107 H CARBON DIOXIDE (test code = CO2) 22.0 mmol/L 21-32 N ANION GAP (test code = GAP) 13.6 10-20 N GLUCOSE (test code = GLU) 113 mg/dL 74-106 H BLOOD UREA NITROGEN (test code = BUN) 19 mg/dL 7-18 H GLOMERULAR FILTRATION RATE (test code = GFR) 50 mL/min >=60 Estimated GFR by using Modified MDRD formula.Chronic kidney disease is defined as either kidney damageor GFR <60 mL/min/1.73 m2 for >3 months. CREATININE (test code = CREAT) 1.40 mg/dL 0.7-1.3 H BUN/CREATININE RATIO (test code = BUN/CREA) 13.1 10-20 N CALCIUM (test code = CA) 8.4 mg/dL 8.5-10.1 L HEPATIC FUNCTION [id number] 23:46:00* Test Item Value Reference Range Interpretation Comments TOTAL PROTEIN (test code = PROT) 7.9 gram/dL 6.4-8.2 N ALBUMIN (test code = ALB) 3.9 g/dL 3.4-5.0 N GLOBULIN (test code = GLOB) 4.0 gram/dL 2.7-4.2 N ALBUMIN/GLOBULIN RATIO (test code = A/G) 1.0 0.75-1.50 N BILIRUBIN TOTAL (test code = BILT) 0.60 mg/dL 0.0-1.0 N BILIRUBIN DIRECT (test code = BILD) 0.13 mg/dL 0.0-0.20 N SGOT/AST (test code = AST) 24 IUnit/L 15-37 N SGPT/ALT (test code = ALT) 25 IUnit/L 12-78 N ALKALINE PHOSPHATASE TOTAL (test code = ALKP) 112 IUnit/L 45-117 N Note change in reference range due to change in reagent. [id number] 23:46:00* Test Item Value Reference Range Interpretation Comments LIPASE (test code = LIP) 37 U/L 73.0-393.0 L [id number] 23:46:00* Test Item Value Reference Range Interpretation Comments TROPONIN-I (test code = TROPI) <0.015 ng/mL 0-0.045 N URINALYSIS [id number] 23:41:00* Test Item Value Reference Range Interpretation Comments UA COLOR (test code = COLU) YELLOW YELLOW UA APPEARANCE (test code = APPU) CLEAR CLEAR UA GLUCOSE DIPSTICK (test code = DGLUU) NEGATIVE mg/dL NEGATIVE UA BILIRUBIN DIPSTICK (test code = BILU) NEGATIVE mg/dL NEGATIVE UA KETONE DIPSTICK (test code = KETU) 5 (Trace) mg/dL NEGATIVE A UA SPECIFIC GRAVITY (test code = SGU) 1.027 1.001-1.035 UA BLOOD DIPSTICK (test code = LEILANI) Negative NEGATIVE UA PH DIPSTICK (test code = JEET) 5.0 5.0-8.0 UA PROTEIN DIPSTICK (test code = PROU) 30 (1+) mg/dL NEGATIVE A UA UROBILINIOGEN DIPSTICK (test code = URO) 1 mg/dL (1+) mg/dL 0.0 -0.2 UA NITRITE DIPSTICK (test code = LI) NEGATIVE NEGATIVE UA LEUKOCYTE ESTERASE W REFLEX (test code = LEUUR) NEGATIVE NEG ATIVE UA WBC (test code = WBCU) 0-5 #/HPF 0-5 UA RBC (test code = RBCU) 0-2 #/HPF 0-5 UA EPITHELIAL CELLS (test code = EPIU) FEW per HPF FEW UA HYALINE CAST (test code = HYALU) 0-2 #/LPF 0-5 UA MUCUS (test code = MUCU) FEW #/LPF FEW Urine Source? Clean CatchBASIC METABOLIC [id number] 23:35:00* Test Item Value Reference Range Interpretation Comments SODIUM (test code = NA) 140 mmol/L 136-145 N POTASSIUM (test code = K) 4.6 mmol/L 3.5-5.1 N CHLORIDE (test code = CL) 109.0 mmol/L 98-107 H CARBON DIOXIDE (test code = CO2) mmol/L 21-32 ANION GAP (test code = GAP) 10-20 GLUCOSE (test code = GLU) mg/dL 74-106 BLOOD UREA NITROGEN (test code = BUN) mg/dL 7-18 GLOMERULAR FILTRATION RATE (test code = GFR) mL/min >=60 CREATININE (test code = CREAT) mg/dL 0.7-1.3 BUN/CREATININE RATIO (test code = BUN/CREA) 10-20 CALCIUM (test code = CA) mg/dL 8.5-10.1 HEPATIC FUNCTION [id number] 23:35:00* Test Item Value Reference Range Interpretation Comments TOTAL PROTEIN (test code = PROT) gram/dL 6.4-8.2 ALBUMIN (test code = ALB) g/dL 3.4-5.0 GLOBULIN (test code = GLOB) gram/dL 2.7-4.2 ALBUMIN/GLOBULIN RATIO (test code = A/G) 0.75-1.50 BILIRUBIN TOTAL (test code = BILT) mg/dL 0.0-1.0 BILIRUBIN DIRECT (test code = BILD) mg/dL 0.0-0.20 SGOT/AST (test code = AST) IUnit/L 15-37 SGPT/ALT (test code = ALT) IUnit/L 12-78 ALKALINE PHOSPHATASE TOTAL (test code = ALKP) IUnit/L 45-117 [id number] 23:35:00* Test Item Value Reference Range Interpretation Comments LIPASE (test code = LIP) U/L 73.0-393.0 [id number] 23:35:00* Test Item Value Reference Range Interpretation Comments TROPONIN-I (test code = TROPI) ng/mL 0-0.045 CBC W/O [id number] 23:21:00* Test Item Value Reference Range Interpretation Comments WHITE BLOOD CELL (test code = WBC) K/mm3 4.5-12.5 RED BLOOD CELL (test code = RBC) mill/mm3 4.0-5.8 HEMOGLOBIN (test code = HGB) 13.8 gram/dL 13.0-17.5 N HEMATOCRIT (test code = HCT) 42.9 % 42.0-52.0 N MEAN CELL VOLUME (test code = MCV) fL 80-98 MEAN CELL HGB (test code = MCH) picogram 27.0-33.0 MEAN CELL HGB CONCETRATION (test code = MCHC) gram/dL 33.0-36. 0 RED CELL DISTRIBUTION WIDTH (test code = RDW) % 11.6-16. 2 PLATELET COUNT (test code = PLT) K/mm3 150-450 MEAN PLATELET VOLUME (test code = MPV) fL 6.7-11.0 CBC W/O [id number] 23:21:00* Test Item Value Reference Range Interpretation Comments WHITE BLOOD CELL (test code = WBC) 6.2 K/mm3 4.5-12.5 N RED BLOOD CELL (test code = RBC) 4.59 mill/mm3 4.0-5.8 N HEMOGLOBIN (test code = HGB) 13.8 gram/dL 13.0-17.5 N HEMATOCRIT (test code = HCT) 42.9 % 42.0-52.0 N MEAN CELL VOLUME (test code = MCV) 93.5 fL 80-98 N MEAN CELL HGB (test code = MCH) 30.1 picogram 27.0-33.0 N MEAN CELL HGB CONCETRATION (test code = MCHC) 32.2 gram/dL 33.0-36. 0 L RED CELL DISTRIBUTION WIDTH (test code = RDW) 16.5 % 11.6-16. 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 COMPARISON: November 29, 2018 INDICATION: Chest pain DISCUSSION: Lines/tubes: Sternotomy wir es. Lungs: The lungs are well inflated and clear. No pneumonia or pulmonar y edema. Pleura: No pleural effusion or pneumothorax. Heart and media stinum: Heart size normal. Bones and soft tissues: No acute bony abnormal ities. IMPRESSION: 1. No acute cardiopulmonary abnormalities. Signed by: Dr. Jessica Tapia M.D. on 07/10/2018 11:55 AM Dictated B y: JESSICA TAPIA MD 1155 COPY TO: ANNE MARIE QUINTANA [employer] LEVEL PROJECT MANAGER Sodium [id number] 11:44:00* Test Item Value Reference Range Interpretation Comments Sodium Level (test code = 2951-2) 135 136-145 L [facility] CenterPotassium [id number] 11:44:00* Test Item Value Reference Range Interpretation Comments Potassium Level (test code = 2823-3) 4.1 3.5-5.1 [facility] CenterChloride [id number] 11:44:00* Test Item Value Reference Range Interpretation Comments Chloride Level (test code = 2075-0) 106 98-107 [facility] CenterCarbon Dioxide [id number] 11:44:00* Test Item Value Reference Range Interpretation Comments Carbon Dioxide Level (test code = 2028-9) 22 - [facility] CenterAnion [id number] 11:44:00* Test Item Value Reference Range Interpretation Comments Anion Gap (test code = 00697-1) 11.1 8-16 [facility] CenterBlood Urea [id number] 11:44:00* Test Item Value Reference Range Interpretation Comments Blood Urea Nitrogen (test code = 3094-0) 13 7- [facility] CenterCreatinine2019-02-25 11:44:00* Test Item Value Reference Range Interpretation Comments Creatinine (test code = 2160-0) 1.20 0.72-1.25 [facility] CenterBUN/Creatinine [id number] 11:44:00* Test Item Value Reference Range Interpretation Comments BUN/Creatinine Ratio (test code = 3097-3) 11 - [facility] CenterEstimat Glomerular Filtration Rate 2018-07-10 11:44:00* Test Item Value Reference Range Interpretation Comments Estimat Glomerular Filtration Rate (test code = 141670607) 60 >60 Ranges were taken from the National Kidney Disease Education Program and the [facility] Foundation literature.Reference ranges:60 or greater: Fajsrv75-95 ( for 3 consecutive months): Chronic kidney disease 15 or less: Kidney failureLas Palmas Medical CenterGlucose Utfio4500-97-76 11:44:00* Test Item Value Reference Range Interpretation Comments Glucose Level (test code = DUY6547) 131 74-118 H [facility] CenterCalcium Ikfvk9287-93-15 11:44:00* Test Item Value Reference Range Interpretation Comments Calcium Level (test code = 85555-6) 9.8 8.4-10.2 [facility] CenterTotal Gburevdtr5618-17-48 11:44:00* Test Item Value Reference Range Interpretation Comments Total Bilirubin (test code = 1975-2) 0.7 0.2-1.2 [facility] CenterAspartate Amino Transf (AST/SGOT) 2018-07-10 11:44:00* Test Item Value Reference Range Interpretation Comments Aspartate Amino Transf (AST/SGOT) (test code = Aspartate Amino Transf (AST/SGOT)) 20 5-34 [facility] CenterAlanine Aminotransferase (ALT/SGPT) 2018-07-10 11:44:00* Test Item Value Reference Range Interpretation Comments Alanine Aminotransferase (ALT/SGPT) (test code = 1742-6) 16 0-55 [facility] CenterTotal Iafsstx3576-22-30 11:44:00* Test Item Value Reference Range Interpretation Comments Total Protein (test code = 2885-2) 7.6 6.5-8.1 [facility] CenterAlbumin2019-02-25 11:44:00* Test Item Value Reference Range Interpretation Comments Albumin (test code = 1751-7) 4.0 3.5-5.0 [facility] CenterGlobulin2019-02-25 11:44:00* Test Item Value Reference Range Interpretation Comments Globulin (test code = 66564-9) 3.6 2.3-3.5 H [facility] CenterAlbumin/Globulin Cncav7585-32-20 11:44:00 * Test Item Value Reference Range Interpretation Comments Albumin/Globulin Ratio (test code = 1759-0) 1.1 0.8-2.0 [facility] CenterAlkaline Ebevxexeamw7027-21-50 11:44:00* Test Item Value Reference Range Interpretation Comments Alkaline Phosphatase (test code = 6768-6) 110 40-150 [facility] CenterCreatine Cptjew0153-21-71 11:44:00* Test Item Value Reference Range Interpretation Comments Creatine Kinase (test code = 2157-6) 56 30-200 [facility] CenterCreatine Kinase [id number] 11:44:00* Test Item Value Reference Range Interpretation Comments Creatine Kinase MB (test code = 75301-1) 1.30 0-5.0 [facility] CenterTroponin [id number] 11:44:00* Test Item Value Reference Range Interpretation Comments Troponin I (test code = GHS9946) 0.006 0-0.300 [facility] CenterWhite Blood Opjvm9868-57-83 11:24:00* Test Item Value Reference Range Interpretation Comments White Blood Count (test code = 6690-2) 4.85 4.8-10.8 [facility] CenterRed Blood Fupls1299-47-97 11:24:00* Test Item Value Reference Range Interpretation Comments Red Blood Count (test code = 789-8) 4.52 4.3-5.7 [facility] CenterHemoglobin2019-02-25 11:24:00* Test Item Value Reference Range Interpretation Comments Hemoglobin (test code = 39392-5) 13.7 14.0-18.0 L [facility] CenterHematocrit2019-02-25 11:24:00* Test Item Value Reference Range Interpretation Comments Hematocrit (test code = 4544-3) 40.8 38.2-49.6 [facility] CenterMean Corpuscular Dloioa3348-00-01 11:24:00* Test Item Value Reference Range Interpretation Comments Mean Corpuscular Volume (test code = 787-2) 90.3 81-99 [facility] CenterMean Corpuscular Bqormqzeco2091-94-38 11:24:00* Test Item Value Reference Range Interpretation Comments Mean Corpuscular Hemoglobin (test code = 785-6) 30.3 28-32 [facility] CenterMean Corpuscular Hemoglobin Concent 2018-07-10 11:24:00* Test Item Value Reference Range Interpretation Comments Mean Corpuscular Hemoglobin Concent (test code = 786-4) 33.6 31-35 [facility] CenterRed Cell Distribution Semwp1626-35-27 11:24:00* Test Item Value Reference Range Interpretation Comments Red Cell Distribution Width (test code = 04277-2) 16.0 11.7 -14.4 H [facility] CenterPlatelet Kbbsi7493-75-77 11:24:00* Test Item Value Reference Range Interpretation Comments Platelet Count (test code = 777-3) 199 140-360 [facility] CenterNeutrophils (%) (Auto)2018-07-10 11:24:00 * Test Item Value Reference Range Interpretation Comments Neutrophils (%) (Auto) (test code = 61128-2) 75.0 38.7-80.0 [facility] CenterLymphocytes (%) (Auto)2018-07-10 11:24:00 * Test Item Value Reference Range Interpretation Comments Lymphocytes (%) (Auto) (test code = 736-9) 14.4 18.0-39.1 L [facility] CenterMonocytes (%) (Auto)2018-07-10 11:24:00* Test Item Value Reference Range Interpretation Comments Monocytes (%) (Auto) (test code = 5905-5) 8.2 4.4-11.3 [facility] CenterEosinophils (%) (Auto)2018-07-10 11:24:00 * Test Item Value Reference Range Interpretation Comments Eosinophils (%) (Auto) (test code = 713-8) 0.8 0.0-6.0 [facility] CenterBasophils (%) (Auto)2018-07-10 11:24:00* Test Item Value Reference Range Interpretation Comments Basophils (%) (Auto) (test code = 706-2) 0.6 0.0-1.0 [facility] CenterIM GRANULOCYTES %2018-07-10 11:24:00* Test Item Value Reference Range Interpretation Comments IM GRANULOCYTES % (test code = IM GRANULOCYTES %) 1.0 0.0- 1.0 [facility] CenterNeutrophils # (Auto)2018-07-10 11:24:00* Test Item Value Reference Range Interpretation Comments Neutrophils # (Auto) (test code = 751-8) 3.6 2.1-6.9 [facility] CenterLymphocytes # (Auto)2018-07-10 11:24:00* Test Item Value Reference Range Interpretation Comments Lymphocytes # (Auto) (test code = 39655-8) 0.7 1.0-3.2 L [facility] CenterMonocytes # (Auto)2018-07-10 11:24:00* Test Item Value Reference Range Interpretation Comments Monocytes # (Auto) (test code = 742-7) 0.4 0.2-0.8 [facility] CenterEosinophils # (Auto)2018-07-10 11:24:00* Test Item Value Reference Range Interpretation Comments Eosinophils # (Auto) (test code = 711-2) 0.0 0.0-0.4 [facility] CenterBasophils # (Auto)2018-07-10 11:24:00* Test Item Value Reference Range Interpretation Comments Basophils # (Auto) (test code = 704-7) 0.0 0.0-0.1 [facility] CenterAbsolute Immature Granulocyte (auto 2018-07-10 11:24:00* Test Item Value Reference Range Interpretation Comments Absolute Immature Granulocyte (auto (savanah t code = Absolute Immature Granulocyte (auto) 0.05 0-0.1 [facility] CenterProthrombin Xhsw4891-35-79 11:20:00* Test Item Value Reference Range Interpretation Comments Prothrombin Time (test code = 5902-2) 13.0 11.9-14.5 [facility] CenterProthromb Time International Ratio 2018-07-10 11:20:00* Test Item Value Reference Range Interpretation Comments Prothromb Time International Ratio (test code = 6301-6) 0.90 Oral Anticoagulant Therapy INR Values:1. Low Intensity Therapy 1.5 - 2.02 . Moderate Intensity Therapy 2.0 - 3.03. High Intensity Therapy(1) 2.5 - 3. 54. High Intensity Therapy(2) 3.0 - 4.05. Panic Value INR > 5.0 [facility] CenterActivated Partial Thromboplast Time 2018-07-10 11:20:00* Test Item Value Reference Range Interpretation Comments Activated Partial Thromboplast Time (test code = 14780-9) 25.8 23.8-35.5 [facility] CenterProthrombin Hjwa8530-99-10 11:20:00* Test Item Value Reference Range Interpretation Comments Prothrombin Time (test code = 5902-2) 13.0 11.9-14.5 [facility] CenterProthromb Time International Ratio 2018-07-10 11:20:00* Test Item Value Reference Range Interpretation Comments Prothromb Time International Ratio (test code = 6301-6) 0.90 Oral Anticoagulant Therapy INR Values:1. Low Intensity Therapy 1.5 - 2.02 . Moderate Intensity Therapy 2.0 - 3.03. High Intensity Therapy(1) 2.5 - 3. 54. High Intensity Therapy(2) 3.0 - 4.05. Panic Value INR > 5.0 [facility] CenterActivated Partial Thromboplast Time 2018-07-10 11:20:00* Test Item Value Reference Range Interpretation Comments Activated Partial Thromboplast Time (test code = 08173-8) 25.8 23.8-35.5 [facility] CenterProthrombin Yagt3646-31-34 11:20:00* Test Item Value Reference Range Interpretation Comments Prothrombin Time (test code = 5902-2) 13.0 11.9-14.5 [facility] CenterProthromb Time International Ratio 2018-07-10 11:20:00* Test Item Value Reference Range Interpretation Comments Prothromb Time International Ratio (test code = 6301-6) 0.90 Oral Anticoagulant Therapy INR Values:1. Low Intensity Therapy 1.5 - 2.02 . Moderate Intensity Therapy 2.0 - 3.03. High Intensity Therapy(1) 2.5 - 3. 54. High Intensity Therapy(2) 3.0 - 4.05. Panic Value INR > 5.0 [facility] CenterActivated Partial Thromboplast Time 2018-07-10 11:20:00* Test Item Value Reference Range Interpretation Comments Activated Partial Thromboplast Time (test code = 44838-2) 25.8 23.8-35.5 [facility]odium Nmujs3352-25-79 05:03:00* Test Item Value Reference Range Interpretation Comments Sodium Level (test code = 2951-2) 137 136-145 [facility] CenterPotassium Jyneo9188-26-92 05:03:00* Test Item Value Reference Range Interpretation Comments Potassium Level (test code = 2823-3) 4.4 3.5-5.1 [facility] CenterChloride Txoea7205-32-92 05:03:00* Test Item Value Reference Range Interpretation Comments Chloride Level (test code = 2075-0) 105 98-107 [facility] CenterCarbon Dioxide Nzqjv5724-24-43 05:03:00* Test Item Value Reference Range Interpretation Comments Carbon Dioxide Level (test code = 2028-9) 25 22-29 [facility] CenterAnion Bbb6779-23-13 05:03:00* Test Item Value Reference Range Interpretation Comments Anion Gap (test code = 60419-8) 11.4 8-16 [facility] CenterBlood Urea Ohwdrjui7157-30-47 05:03:00* Test Item Value Reference Range Interpretation Comments Blood Urea Nitrogen (test code = 3094-0) 14 7-26 [facility] CenterCreatinine2019-01-18 05:03:00* Test Item Value Reference Range Interpretation Comments Creatinine (test code = 2160-0) 1.25 0.72-1.25 [facility] CenterBUN/Creatinine Hzydt1181-51-70 05:03:00* Test Item Value Reference Range Interpretation Comments BUN/Creatinine Ratio (test code = 3097-3) 11 6-25 [facility] CenterEstimat Glomerular Filtration Rate 2018-06-02 05:03:00* Test Item Value Reference Range Interpretation Comments Estimat Glomerular Filtration Rate (test code = 978413398) 57 >60 L Ranges were taken from the National Kidney Disease Education Program and the [facility] Kidney Foundation literature.Reference ranges:60 or greater: Oyhdgv03-96 ( for 3 consecutive months): Chronic kidney disease 15 or less: Kidney failureLas Palmas Medical CenterGlucose Maoba2025-87-32 05:03:00* Test Item Value Reference Range Interpretation Comments Glucose Level (test code = NXL3240) 102 74-118 [facility] CenterCalcium Vmrhn2562-22-66 05:03:00* Test Item Value Reference Range Interpretation Comments Calcium Level (test code = 05287-3) 9.5 8.4-10.2 [facility] CenterMagnesium Qkicq7481-50-22 05:03:00* Test Item Value Reference Range Interpretation Comments Magnesium Level (test code = 48699-2) 1.9 1.3-2.1 [facility] CenterTriglycerides Qmwnd1273-33-03 05:03:00* Test Item Value Reference Range Interpretation Comments Triglycerides Level (test code = 2571-8) 105 0-149 [facility] CenterCholesterol Olmdt8934-48-23 05:03:00* Test Item Value Reference Range Interpretation Comments Cholesterol Level (test code = 2093-3) 125 0-199 Less than 200 mg/dL Low Nzar368 - 239 mg/dL Borderline Vaye376 m g/dl and greater High Risk [facility] CenterLDL Jlxusliuwbj3614-57-89 05:03:00* Test Item Value Reference Range Interpretation Comments LDL Cholesterol (test code = 2089-1) 65 60-130 [facility] CenterHDL Qxzlygnzqhd0041-39-26 05:03:00* Test Item Value Reference Range Interpretation Comments HDL Cholesterol (test code = 2085-9) 39 40-60 L [facility] CenterCholesterol/HDL Acamg5594-56-28 05:03:00 * Test Item Value Reference Range Interpretation Comments Cholesterol/HDL Ratio (test code = 9830-1) 3.2 3.9-4.7 L [facility] CenterCreatine Luqtdt4602-78-92 05:03:00* Test Item Value Reference Range Interpretation Comments Creatine Kinase (test code = 2157-6) 31 30-200 [facility] CenterCreatine Kinase GG3901-28-70 05:03:00* Test Item Value Reference Range Interpretation Comments Creatine Kinase MB (test code = 95017-7) 1.10 0-5.0 [facility] CenterTroponin O9767-72-49 05:03:00* Test Item Value Reference Range Interpretation Comments Troponin I (test code = OHK0569) 0.026 0-0.300 [facility] CenterMagnesium Faepm5959-80-37 05:03:00* Test Item Value Reference Range Interpretation Comments Magnesium Level (test code = 05628-8) 1.9 1.3-2.1 [facility] CenterTriglycerides Apbno7774-57-90 05:03:00* Test Item Value Reference Range Interpretation Comments Triglycerides Level (test code = 2571-8) 105 0-149 [facility] CenterCholesterol Ahkhx0275-08-60 05:03:00* Test Item Value Reference Range Interpretation Comments Cholesterol Level (test code = 2093-3) 125 0-199 Less than 200 mg/dL Low Zcle678 - 239 mg/dL Borderline Djdd000 m g/dl and greater High Risk [facility] CenterLDL Kfzkivcugnh1308-57-86 05:03:00* Test Item Value Reference Range Interpretation Comments LDL Cholesterol (test code = 2089-1) 65 60-130 [facility] CenterHDL Pfgsjsrtrtu4828-46-01 05:03:00* Test Item Value Reference Range Interpretation Comments HDL Cholesterol (test code = 2085-9) 39 40-60 L [facility] CenterCholesterol/HDL Xasfr9137-45-63 05:03:00 * Test Item Value Reference Range Interpretation Comments Cholesterol/HDL Ratio (test code = 9830-1) 3.2 3.9-4.7 L [facility] CenterMagnesium Mvzma3824-02-77 05:03:00* Test Item Value Reference Range Interpretation Comments Magnesium Level (test code = 29959-3) 1.9 1.3-2.1 [facility] CenterTriglycerides Ojfvl8909-76-63 05:03:00* Test Item Value Reference Range Interpretation Comments Triglycerides Level (test code = 2571-8) 105 0-149 [facility] CenterCholesterol Pfwta9910-52-99 05:03:00* Test Item Value Reference Range Interpretation Comments Cholesterol Level (test code = 2093-3) 125 0-199 Less than 200 mg/dL Low Hhdo323 - 239 mg/dL Borderline Szjo430 m g/dl and greater High Risk [facility] CenterLDL Cdrwcokstxy7397-08-27 05:03:00* Test Item Value Reference Range Interpretation Comments LDL Cholesterol (test code = 2089-1) 65 60-130 [facility] Flabehuurfe4218-01-91 05:03:00* Test Item Value Reference Range Interpretation Comments HDL Cholesterol (test code = 2085-9) 39 40-60 L [facility] CenterCholesterol/HDL Vnhvc8255-67-67 05:03:00 * Test Item Value Reference Range Interpretation Comments Cholesterol/HDL Ratio (test code = 9830-1) 3.2 3.9-4.7 L [facility] CenterMagnesium Ytyxr4332-77-86 05:03:00* Test Item Value Reference Range Interpretation Comments Magnesium Level (test code = 56433-5) 1.9 1.3-2.1 [facility] CenterTriglycerides Fizlj6485-50-87 05:03:00* Test Item Value Reference Range Interpretation Comments Triglycerides Level (test code = 2571-8) 105 0-149 [facility] CenterCholesterol Zmoru9523-84-05 05:03:00* Test Item Value Reference Range Interpretation Comments Cholesterol Level (test code = 2093-3) 125 0-199 Less than 200 mg/dL Low Pquj014 - 239 mg/dL Borderline Uvyy002 m g/dl and greater High Risk [facility] CenterLDL Yerwhqynaml0996-01-97 05:03:00* Test Item Value Reference Range Interpretation Comments LDL Cholesterol (test code = 2089-1) 65 60-130 [facility] Gxnrvexelbz1957-62-63 05:03:00* Test Item Value Reference Range Interpretation Comments HDL Cholesterol (test code = 2085-9) 39 40-60 L [facility] CenterCholesterol/HDL Horgb0000-74-26 05:03:00 * Test Item Value Reference Range Interpretation Comments Cholesterol/HDL Ratio (test code = 9830-1) 3.2 3.9-4.7 L [facility] Jtbxw9459-86-27 05:03:00* Test Item Value Reference Range Interpretation Comments Magnesium Level (test code = 22920-5) 1.9 1.3-2.1 [facility] CenterTriglycerides Wyrrm3974-63-98 05:03:00* Test Item Value Reference Range Interpretation Comments Triglycerides Level (test code = 2571-8) 105 0-149 [facility] CenterCholesterol Snrfu3805-68-91 05:03:00* Test Item Value Reference Range Interpretation Comments Cholesterol Level (test code = 2093-3) 125 0-199 Less than 200 mg/dL Low Gnyj473 - 239 mg/dL Borderline Kihd506 m g/dl and greater High Risk [facility] Cklzerekcrr4078-16-40 05:03:00* Test Item Value Reference Range Interpretation Comments LDL Cholesterol (test code = 2089-1) 65 60-130 [facility] Kykwabeebrz5534-94-91 05:03:00* Test Item Value Reference Range Interpretation Comments HDL Cholesterol (test code = 2085-9) 39 40-60 L [facility] CenterCholesterol/HDL Txeia3032-11-15 05:03:00 * Test Item Value Reference Range Interpretation Comments Cholesterol/HDL Ratio (test code = 9830-1) 3.2 3.9-4.7 L [facility] Iizvv2947-61-80 05:03:00* Test Item Value Reference Range Interpretation Comments Magnesium Level (test code = 52202-6) 1.9 1.3-2.1 [facility] CenterTriglycerides Gneda5250-49-46 05:03:00* Test Item Value Reference Range Interpretation Comments Triglycerides Level (test code = 2571-8) 105 0-149 [facility] CenterCholesterol Emxff3951-06-35 05:03:00* Test Item Value Reference Range Interpretation Comments Cholesterol Level (test code = 2093-3) 125 0-199 Less than 200 mg/dL Low Zpqc639 - 239 mg/dL Borderline Brgv822 m g/dl and greater High Risk [facility] CenterLDL Gjqvlxceknk8500-83-37 05:03:00* Test Item Value Reference Range Interpretation Comments LDL Cholesterol (test code = 2089-1) 65 60-130 [facility] Wjkyfpavwva5969-63-94 05:03:00* Test Item Value Reference Range Interpretation Comments HDL Cholesterol (test code = 2085-9) 39 40-60 L [facility] CenterCholesterol/HDL Lmgpv6072-97-50 05:03:00 * Test Item Value Reference Range Interpretation Comments Cholesterol/HDL Ratio (test code = 9830-1) 3.2 3.9-4.7 L [facility] CenterMagnesium Qsvpw6039-76-93 05:03:00* Test Item Value Reference Range Interpretation Comments Magnesium Level (test code = 09946-2) 1.9 1.3-2.1 [facility] CenterTriglycerides Uljou1049-11-43 05:03:00* Test Item Value Reference Range Interpretation Comments Triglycerides Level (test code = 2571-8) 105 0-149 [facility] CenterCholesterol Vddbx1104-06-52 05:03:00* Test Item Value Reference Range Interpretation Comments Cholesterol Level (test code = 2093-3) 125 0-199 Less than 200 mg/dL Low Fcqv707 - 239 mg/dL Borderline Bxay129 m g/dl and greater High Risk [facility] CenterLDL Autepsmidaw9795-79-05 05:03:00* Test Item Value Reference Range Interpretation Comments LDL Cholesterol (test code = 2089-1) 65 60-130 [facility] Lvabdysrhet6072-47-98 05:03:00* Test Item Value Reference Range Interpretation Comments HDL Cholesterol (test code = 2085-9) 39 40-60 L [facility] CenterCholesterol/HDL Bomdc9045-76-59 05:03:00 * Test Item Value Reference Range Interpretation Comments Cholesterol/HDL Ratio (test code = 9830-1) 3.2 3.9-4.7 L [facility] Ueoai8999-91-42 05:03:00* Test Item Value Reference Range Interpretation Comments Magnesium Level (test code = 42801-0) 1.9 1.3-2.1 [facility] CenterTriglycerides Cevjb0327-73-25 05:03:00* Test Item Value Reference Range Interpretation Comments Triglycerides Level (test code = 2571-8) 105 0-149 [facility] CenterCholesterol Mrbmy6875-96-79 05:03:00* Test Item Value Reference Range Interpretation Comments Cholesterol Level (test code = 2093-3) 125 0-199 Less than 200 mg/dL Low Flcg450 - 239 mg/dL Borderline Pzje600 m g/dl and greater High Risk [facility] CenterLDL Yyifzkismeq5439-67-76 05:03:00* Test Item Value Reference Range Interpretation Comments LDL Cholesterol (test code = 2089-1) 65 60-130 [facility] CenterHDL Bchkpkbujeo8409-22-90 05:03:00* Test Item Value Reference Range Interpretation Comments HDL Cholesterol (test code = 2085-9) 39 40-60 L [facility] CenterCholesterol/HDL Sefkd5997-94-88 05:03:00 * Test Item Value Reference Range Interpretation Comments Cholesterol/HDL Ratio (test code = 9830-1) 3.2 3.9-4.7 [facility] Fqroa3953-38-26 05:03:00* Test Item Value Reference Range Interpretation Comments Magnesium Level (test code = 83246-4) 1.9 1.3-2.1 [facility] CenterTriglycerides Fwlfv5259-94-55 05:03:00* Test Item Value Reference Range Interpretation Comments Triglycerides Level (test code = 2571-8) 105 0-149 [facility] CenterCholesterol Idhie5440-91-19 05:03:00* Test Item Value Reference Range Interpretation Comments Cholesterol Level (test code = 2093-3) 125 0-199 Less than 200 mg/dL Low Indb259 - 239 mg/dL Borderline Mxak602 m g/dl and greater High Risk [facility] CenterLDL Gwbatazozgw3340-57-17 05:03:00* Test Item Value Reference Range Interpretation Comments LDL Cholesterol (test code = 2089-1) 65 60-130 [facility] CenterHDL Cyjufaohdsm0564-11-74 05:03:00* Test Item Value Reference Range Interpretation Comments HDL Cholesterol (test code = 2085-9) 39 40-60 L [facility] CenterCholesterol/HDL Hcqxm5552-69-29 05:03:00 * Test Item Value Reference Range Interpretation Comments Cholesterol/HDL Ratio (test code = 9830-1) 3.2 3.9-4.7 L [facility] CenterWhite Blood Jrmfm8665-63-48 04:11:00* Test Item Value Reference Range Interpretation Comments White Blood Count (test code = 6690-2) 5.62 4.8-10.8 [facility] CenterRed Blood Jscep0555-19-09 04:11:00* Test Item Value Reference Range Interpretation Comments Red Blood Count (test code = 789-8) 4.35 4.3-5.7 [facility] CenterHemoglobin2019-01-18 04:11:00* Test Item Value Reference Range Interpretation Comments Hemoglobin (test code = 21971-6) 13.3 14.0-18.0 L [facility] CenterHematocrit2019-01-18 04:11:00* Test Item Value Reference Range Interpretation Comments Hematocrit (test code = 4544-3) 40.3 38.2-49.6 [facility] CenterMean Corpuscular Puxyox2853-52-35 04:11:00* Test Item Value Reference Range Interpretation Comments Mean Corpuscular Volume (test code = 787-2) 92.6 81-99 [facility] CenterMean Corpuscular Oweudlmmjj0321-35-78 04:11:00* Test Item Value Reference Range Interpretation Comments Mean Corpuscular Hemoglobin (test code = 785-6) 30.6 28-32 [facility] CenterMean Corpuscular Hemoglobin Concent 2018-06-02 04:11:00* Test Item Value Reference Range Interpretation Comments Mean Corpuscular Hemoglobin Concent (test code = 786-4) 33.0 31-35 [facility] CenterRed Cell Distribution Sgogy5850-00-93 04:11:00* Test Item Value Reference Range Interpretation Comments Red Cell Distribution Width (test code = 10801-7) 16.3 11.7 -14.4 H [facility] CenterPlatelet Ocgpt4109-86-98 04:11:00* Test Item Value Reference Range Interpretation Comments Platelet Count (test code = 777-3) 214 140-360 [facility] CenterNeutrophils (%) (Auto)2018-06-02 04:11:00 * Test Item Value Reference Range Interpretation Comments Neutrophils (%) (Auto) (test code = 54359-6) 66.6 38.7-80.0 [facility] CenterLymphocytes (%) (Auto)2018-06-02 04:11:00 * Test Item Value Reference Range Interpretation Comments Lymphocytes (%) (Auto) (test code = 736-9) 19.2 18.0-39.1 [facility] CenterMonocytes (%) (Auto)2018-06-02 04:11:00* Test Item Value Reference Range Interpretation Comments Monocytes (%) (Auto) (test code = 5905-5) 11.9 4.4-11.3 H [facility] CenterEosinophils (%) (Auto)2018-06-02 04:11:00 * Test Item Value Reference Range Interpretation Comments Eosinophils (%) (Auto) (test code = 713-8) 1.1 0.0-6.0 [facility] CenterBasophils (%) (Auto)2018-06-02 04:11:00* Test Item Value Reference Range Interpretation Comments Basophils (%) (Auto) (test code = 706-2) 0.5 0.0-1.0 [facility] CenterIM GRANULOCYTES %2018-06-02 04:11:00* Test Item Value Reference Range Interpretation Comments IM GRANULOCYTES % (test code = IM GRANULOCYTES %) 0.7 0.0- 1.0 [facility] CenterNeutrophils # (Auto)2018-06-02 04:11:00* Test Item Value Reference Range Interpretation Comments Neutrophils # (Auto) (test code = 751-8) 3.7 2.1-6.9 [facility] CenterLymphocytes # (Auto)2018-06-02 04:11:00* Test Item Value Reference Range Interpretation Comments Lymphocytes # (Auto) (test code = 68699-9) 1.1 1.0-3.2 [facility] CenterMonocytes # (Auto)2018-06-02 04:11:00* Test Item Value Reference Range Interpretation Comments Monocytes # (Auto) (test code = 742-7) 0.7 0.2-0.8 [facility] CenterEosinophils # (Auto)2018-06-02 04:11:00* Test Item Value Reference Range Interpretation Comments Eosinophils # (Auto) (test code = 711-2) 0.1 0.0-0.4 [facility] CenterBasophils # (Auto)2018-06-02 04:11:00* Test Item Value Reference Range Interpretation Comments Basophils # (Auto) (test code = 704-7) 0.0 0.0-0.1 [facility] CenterAbsolute Immature Granulocyte (auto 2018-06-02 04:11:00* Test Item Value Reference Range Interpretation Comments Absolute Immature Granulocyte (auto (savanah t code = Absolute Immature Granulocyte (auto) 0.04 0-0.1 [facility] CenterCTA SLJQV0700-16-66 16:06:00 [facility] [address] [place] [address] Patient Name: TEDDY LESTER MR #: [id number] : 1945 Age/Sex: 73/M Req #: [id number] Adm Physician: LASHA ROQUE MD Ordered by: DORY CLOUD MD Report #: [id number] Location: [facility] Room/Bed: [address] Procedure: [id number]/CTA CHEST Exam Date: 06/01/18 Exam Time: 1553 REPORT STATUS: Signed EXAM: CTA C hest, abdomen, and pelvis WITH contrast. DATE: 06/01/2018 1:00 PM INDIC ATION: Shortness of breath/pain COMPARISON: CTA chest dated 11/21/2017, no re port available. CT abdomen 04/02/2018, no report available. TECHNIQUE: CT angiogram of the chest, abdomen, and pelvis was obtained after the administra tion of IV contrast. Prospective gating was performed. Images reviewed in the axial, coronal, and sagittal planes. 3D reconstructions performed on off-line workstation. IV Contrast: 100 mL Isovue-370. Total DLP: 963 mGy *cm Est. Eff. Dose DLP x 0.015 x size factor mSv (CTDIvol has been reviewed an d is below limits set by [facility]). Appropriate CT dose reduction techniques were utilized. FINDINGS: Chest: Lines and Tubes: None. Lower Neck: T he visualized thyroid gland is grossly unremarkable with no suspicious or sign ificant nodule identified. Heart and Great Vessels: The pulmonary artery me asure 29 mm. Small amount of inferior pericardial fluid statistically physiol ogic. No central pulmonary embolus. CABG changes. Common origin left common ca rotid and right brachycephalic artery. No aortic dissection. Moderate hard and soft plaque descending thoracic aorta. Aortic Annulus: 30 mm. Sinus of Valsalva: 44 mm. Ascending Aorta at level of PA: 39 mm. Mid Arch: 33 mm. Proximal Descendin mm. Mid Descendin mm. Distal Descendin mm. Other: None Lymph Nodes: No suspicious adenopathy. Scattered partially calcified mediastinal and hilar lymph nodes present. Lungs: Biapical sca rring. No pleural effusion. Atelectasis present lung bases. Bones and Soft Tissues: Demineralization, compression deformities, vertebroplasty changes, an d sternotomy changes similar. Abdomen: Solid organs: Cholecystectomy clips. Bilateral renal cysts. Otherwise unremarkable. Upper GI tract: Sma ll hiatal hernia. Gastric decompression limits evaluation. No small bowel obst ructive changes. Adenopathy: No suspicious adenopathy. Vascularity: Mo derate to severe narrowing proximal SMA, similar to previous study. Mild at or cirrhotic changes in the renal arteries. Moderate aortic atherosclerotic fraga ges with no aneurysm or dissection. Pelvis: Urinary bladder: Decompres sed, limiting evaluation. Wall thickening presumed secondary to decompression. Prostate: Coarse calcifications. Colonic evaluation: Moderate diverti culosis. Moderate stool. Appendix not inflamed. Osseous structures: Multi ple compression deformities and vertebroplasty changes lumbar spine. Screws tr ansfix right SI joint. IMPRESSION: 1. No central pulmonary and was. 2. Ectasia/mild aneurysmal dilatation ascending aorta/arch as above. 3. 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 4. Other chronic changes as above. Signed by: Dr. Shilpi Martin MD on 9 4:17 PM Dictated By: SHILPI MARTIN MD 1236 Transcribed By: ERICH on 06/02/18 1236 CO PY TO: DORY CLOUD MD CTA ABD/HQUKAD5458-99-70 16:06:00 [place] [address] Patient Name: TEDDY LESTER MR #: [id number] : 1945 Age/Sex: 73/M Req #: [id number] Adm Physician: LASHA ROQUE MD Ordered by: DORY CLOUD MD Report #: [id number] Location: [facility] Room/Bed: [place] [address] Procedure: [id number]/CTA ABD/PELVIS Exam Date: 06/01/18 Exam Time: 1 553 REPORT STATUS: Signed EXAM: CTA Chest, abdomen, and pelvis WITH contrast. DATE: 06/01/2018 1:00 PM INDICATION: Shortness of breath/pain COMPARISON: CTA chest dated 11/21/2017, no report available. CT abdomen 04/02/2018, no report available. TECHNIQU E: CT angiogram of the chest, abdomen, and pelvis was obtained after the admin istration of IV contrast. Prospective gating was performed. Images reviewed i n the axial, coronal, and sagittal planes. 3D reconstructions performed on of [employer] workstation. IV Contrast: 100 mL Isovue-370. Total DLP: 96 3 mGy*cm Est. Eff. Dose DLP x 0.015 x size factor mSv (CTDIvol has been review ed and is below limits set by [facility]). Appropriate CT dose reduction techniques w ere utilized. FINDINGS: Chest: Lines and Tubes: None. Lower Ne ck: The visualized thyroid gland is grossly unremarkable with no suspicious or significant nodule identified. Heart and Great Vessels: The pulmonary mildred ry measure 29 mm. Small amount of inferior pericardial fluid statistically ph ysiologic. No central pulmonary embolus. CABG changes. Common origin left comm on carotid and right brachycephalic artery. No aortic dissection. Moderate wilma d and soft plaque descending thoracic aorta. Aortic Annulus: 30 mm. Si nus of Valsalva: 44 mm. Ascending Aorta at level of PA: 39 mm. Mid Arch: 33 mm. Proximal Descendin mm. Mid Descendin mm. Distal Descendin mm. Other: None Lymph Nodes: No suspicious adenopathy. Scattered parti ally calcified mediastinal and hilar lymph nodes present. Lungs: Biapica l scarring. No pleural effusion. Atelectasis present lung bases. Bones and Soft Tissues: Demineralization, compression deformities, vertebroplasty change s, and sternotomy changes similar. Abdomen: Solid organs: Cholecystec ricarda clips. Bilateral renal cysts. Otherwise unremarkable. Upper GI tract : Small hiatal hernia. Gastric decompression limits evaluation. No small bowel obstructive changes. Adenopathy: No suspicious adenopathy. 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 Mild at or cirrhotic changes in the renal arteries. Moderate aortic atherosclerotic changes with no aneurysm or dissection. Pelvis: Urinary bladder: Deco mpressed, limiting evaluation. Wall thickening presumed secondary to decompres selwyn. Prostate: Coarse calcifications. Colonic evaluation: Moderate di verticulosis. Moderate stool. Appendix not inflamed. Osseous structures: Multiple compression deformities and vertebroplasty changes lumbar spine. Scre ws transfix right SI joint. IMPRESSION: 1. No central pulmonary and was . 2. Ectasia/mild aneurysmal dilatation ascending aorta/arch as above. 3. 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 4. Other chronic changes as above. Signed by: Dr. Shilpi Martin MD on 05/16 4:17 PM Dictated By: SHILPI MARTIN MD 1236 Transcribed By: ERICH on 06/02/18 1236 COPY TO: DORY CLOUD MD Activated Partial Thromboplast Time 2018-06-01 14:10:00* Test Item Value Reference Range Interpretation Comments Activated Partial Thromboplast Time (test code = 55690-7) 26.2 23.8-35.5 [facility] CenterTotal Aeogtpybj7190-56-67 13:51:00* Test Item Value Reference Range Interpretation Comments Total Bilirubin (test code = 1975-2) 0.6 0.2-1.2 [facility] CenterAspartate Amino Transf (AST/SGOT) 2018-06-01 13:51:00* Test Item Value Reference Range Interpretation Comments Aspartate Amino Transf (AST/SGOT) (test code = Aspartate Amino Transf (AST/SGOT)) 17 5-34 [facility] CenterAlanine Aminotransferase (ALT/SGPT) 2018-06-01 13:51:00* Test Item Value Reference Range Interpretation Comments Alanine Aminotransferase (ALT/SGPT) (test code = 1742-6) 13 0-55 [facility] CenterTotal Zaifpvr7261-68-30 13:51:00* Test Item Value Reference Range Interpretation Comments Total Protein (test code = 2885-2) 8.4 6.5-8.1 H [facility] CenterAlbumin2019-01-17 13:51:00* Test Item Value Reference Range Interpretation Comments Albumin (test code = 1751-7) 4.1 3.5-5.0 [facility] CenterGlobulin2019-01-17 13:51:00* Test Item Value Reference Range Interpretation Comments Globulin (test code = 87446-9) 4.3 2.3-3.5 H [facility] CenterAlbumin/Globulin Sgaxh9452-57-09 13:51:00 * Test Item Value Reference Range Interpretation Comments Albumin/Globulin Ratio (test code = 1759-0) 1.0 0.8-2.0 [facility] CenterAlkaline Bmqifulnxfj7576-55-85 13:51:00* Test Item Value Reference Range Interpretation Comments Alkaline Phosphatase (test code = 6768-6) 112 40-150 [facility] CenterLipase2019-01-17 13:51:00* Test Item Value Reference Range Interpretation Comments Lipase (test code = 3040-3) 5 8-78 L [facility] CenterLipase2019-01-17 13:51:00* Test Item Value Reference Range Interpretation Comments Lipase (test code = 3040-3) 5 8-78 L [facility] CenterLipase2019-01-17 13:51:00* Test Item Value Reference Range Interpretation Comments Lipase (test code = 3040-3) 5 8-78 L [facility] CenterLipase2019-01-17 13:51:00* Test Item Value Reference Range Interpretation Comments Lipase (test code = 3040-3) 5 8-78 L [facility] CenterLipase2019-01-17 13:51:00* Test Item Value Reference Range Interpretation Comments Lipase (test code = 3040-3) 5 8-78 L [facility] CenterLipase2019-01-17 13:51:00* Test Item Value Reference Range Interpretation Comments Lipase (test code = 3040-3) 5 8-78 L [facility] CenterLipase2019-01-17 13:51:00* Test Item Value Reference Range Interpretation Comments Lipase (test code = 3040-3) 5 8-78 L [facility] CenterLipase2019-01-17 13:51:00* Test Item Value Reference Range Interpretation Comments Lipase (test code = 3040-3) 5 8-78 L [facility] CenterLipase2019-01-17 13:51:00* Test Item Value Reference Range Interpretation Comments Lipase (test code = 3040-3) 5 8-78 L [facility] CenterCHEST SINGLE (PORTABLE)2018-06-01 13:49:00 [facility] [address] [place] [address] Patient Name: TEDDY LESTER MR #: [id number] : 1945 Age/Sex: 73/M Req #: [id number] Adm Physician: Ordered by: DORY CLOUD MD Report #: [id number] Location: ER Room/Bed: Procedure: [id number] DX/CHEST SINGLE (PORTABLE) Exam Date: 06/01/18 Exam Time: 1340 REPORT STATUS: Signed EXAMINATION: CHEST SINGLE (PORTABLE) INDICATION: Chest pain COMPARISON: March 02, 2018 FINDINGS: TUBES and LINES: None. LUNGS: Lungs are well inflated. Lungs are clear. There is no evidence of pneumonia or pulmonary edema. PLEURA: No pleural effusion or pneumothorax. HEART AND MEDIASTINUM: The cardiomediastinal silhouette is unremarkable. BONES AND SOFT TISSUES: No acute osseous lesion. T4-T6, T8-T9 comp ression deformities better seen on CT 11/21/2017 given lack of lateral view. V ertebroplasty changes at T11. Median sternotomy wires. Soft tissues are unrema rkable UPPER ABDOMEN: No free air under the diaphragm. IMPRESSION: No acute thoracic abnormality. Signed by: Dr. Andrew Ghotra M.D. on 1:51 PM Dictated By: ANDREW GHOTRA MD, MD 1351 Transcribed By: ERICH on 06/01/18 13 51 COPY TO: DORY CLOUD MD CT ABDOMEN/PELVIS I3704-11-19 22:00:00 [place] [address] Patient Name: TEDDY LESTER MR #: [id number] : 1945 Age/Sex: 73/M Req #: [id number] Adm Physician: Ordered by: KELY LESTER MD Report #: [id number] Location: ER Room/Bed: Procedure: [id number] CT/CT ABDOMEN/PELVIS W Exam Date: Exam Time: REPORT STATUS: Signed EXAM: CT ABDOMEN AND PELVIS with IV CONTRAST DATE: 04/02/2018 7:41 PM Time stamp on Ex am: 2144 hours INDICATION: Right lower quadrant pain COMPARISON: None T ECHNIQUE: The abdomen and pelvis were scanned using a multidetector helical sc rosales. Coronal and sagittal reformations were obtained. Dose modulation, itera tive reconstruction, and/or weight based adjustment of the mA/kV was utilized to reduce the radiation dose to as low as reasonably achievable. Routine tatiana col performed. IV Contrast: 100 cc Isovue-370 Oral Contrast: Gastrografin FINDINGS: LOWER THORAX: Emphysematous changes. Small pericardial effusion. LIVER: No masses BILIARY: Cholecystectomy without ductal dilation. SPLEEN: No masses PANCREAS: Pancreatic atrophy. ADRENALS: No nodules KI DNEYS: Symmetric perfusion. No enhancing masses. No hydronephrosis. Bilateral simple renal cysts. The largest is in the superior pole of the left kidney franco suring 4.5 cm. GI TRACT: No distention, wall thickening or evidence of obst ruction. Sigmoid colon diverticulosis. The colon is very redundant. The cecum is in the right upper abdomen interposition between the diaphragm and liver. N ormal appendix. VESSELS: Mild atherosclerotic changes of the abdominal aort a and branches without aneurysm. PERITONEUM/RETROPERITONEUM: No free air or fluid LYMPH NODES: No lymphadenopathy REPRODUCTIVE ORGANS: Coarse calcifi cations in the prostate which is normal in size. BLADDER: Not distended SOFT TISSUES: Unremarkable BONES: Diffuse bone demineralization. Screws throu gh the right sacroiliac joint. Compression fractures of all visible vertebral bodies. Vertebroplasty changes T12-L5. IMPRESSION: No acute findings in the abdomen or pelvis. Chronic findings include: * Bilateral simple fatoumata al cysts, no follow-up indicated * Redundant colon with the cecum and normal appendix in the right upper abdomen. * Colonic diverticulosis without evide nce of diverticulitis. * Osteoporosis with chronic vertebral body fractures. Signed by: Dr. Nerissa Charles M.D. on 04/02/2018 10:13 PM Dictat ed By: NERISSA CHARLES MD 12 Transcribed By: ERICH on 04/02/182212 COPY TO: NOBLE LESTER MD Sodium Dxkgy0676-26-63 20:25:00* Test Item Value Reference Range Interpretation Comments Sodium Level (test code = 2951-2) 138 136-145 [facility] Kvzvl2066-74-42 20:25:00* Test Item Value Reference Range Interpretation Comments Potassium Level (test code = 2823-3) 4.3 3.5-5.1 [facility] CenterChloride Nwicu9992-21-86 20:25:00* Test Item Value Reference Range Interpretation Comments Chloride Level (test code = 2075-0) 105 98-107 [facility] CenterCarbon Dioxide Egbvs6090-72-03 20:25:00* Test Item Value Reference Range Interpretation Comments Carbon Dioxide Level (test code = 2028-9) 21 22-29 L [facility] CenterAnion Zsu7591-95-07 20:25:00* Test Item Value Reference Range Interpretation Comments Anion Gap (test code = 76303-5) 16.3 8-16 H [facility] CenterBlood Urea Scxmfvvo4135-31-99 20:25:00* Test Item Value Reference Range Interpretation Comments Blood Urea Nitrogen (test code = 3094-0) 15 7-26 [facility] CenterCreatinine2018-11-18 20:25:00* Test Item Value Reference Range Interpretation Comments Creatinine (test code = 2160-0) 1.30 0.72-1.25 H [facility] CenterBUN/Creatinine Chgos6371-63-66 20:25:00* Test Item Value Reference Range Interpretation Comments BUN/Creatinine Ratio (test code = 3097-3) 12 6-25 [facility] CenterEstimat Glomerular Filtration Rate 2018-04-02 20:25:00* Test Item Value Reference Range Interpretation Comments Estimat Glomerular Filtration Rate (test code = 841342713) 54 >60 L Ranges were taken from the National Kidney Disease Education Program and the [facility] literature.Reference ranges:60 or greater: Wgdoxq28-23 ( for 3 consecutive months): Chronic kidney disease 15 or less: Kidney failureLas [facility]mas Medical CenterGlucose Hxzdr9465-76-56 20:25:00* Test Item Value Reference Range Interpretation Comments Glucose Level (test code = MMK6395) 101 74-118 [facility] CenterCalcium Urkrw5072-62-31 20:25:00* Test Item Value Reference Range Interpretation Comments Calcium Level (test code = 48866-7) 8.9 8.4-10.2 [facility] CenterTotal Iyyclbwue7741-62-80 20:25:00* Test Item Value Reference Range Interpretation Comments Total Bilirubin (test code = 1975-2) 0.7 0.2-1.2 [facility] CenterAspartate Amino Transf (AST/SGOT) 2018-04-02 20:25:00* Test Item Value Reference Range Interpretation Comments Aspartate Amino Transf (AST/SGOT) (test code = Aspartate Amino Transf (AST/SGOT)) 15 5-34 [facility] CenterAlanine Aminotransferase (ALT/SGPT) 2018-04-02 20:25:00* Test Item Value Reference Range Interpretation Comments Alanine Aminotransferase (ALT/SGPT) (test code = 1742-6) 10 0-55 [facility] CenterTotal Djxanik4530-60-18 20:25:00* Test Item Value Reference Range Interpretation Comments Total Protein (test code = 2885-2) 8.2 6.5-8.1 H [facility] CenterAlbumin2018-11-18 20:25:00* Test Item Value Reference Range Interpretation Comments Albumin (test code = 1751-7) 4.0 3.5-5.0 [facility] CenterGlobulin2018-11-18 20:25:00* Test Item Value Reference Range Interpretation Comments Globulin (test code = 16775-5) 4.2 2.3-3.5 H [facility] CenterAlbumin/Globulin Stjhs7494-06-30 20:25:00 * Test Item Value Reference Range Interpretation Comments Albumin/Globulin Ratio (test code = 1759-0) 1.0 0.8-2.0 [facility] CenterAlkaline Zxcqwkqbexq4960-39-52 20:25:00* Test Item Value Reference Range Interpretation Comments Alkaline Phosphatase (test code = 6768-6) 100 40-150 [facility] CenterAmylase Umbsf1802-19-49 20:25:00* Test Item Value Reference Range Interpretation Comments Amylase Level (test code = 1798-8) 41 25-125 [facility] CenterLipase2018-11-18 20:25:00* Test Item Value Reference Range Interpretation Comments Lipase (test code = 3040-3) 4 8-78 [facility] Fkjru7861-03-22 20:25:00* Test Item Value Reference Range Interpretation Comments Sodium Level (test code = 2951-2) 138 136-145 [facility] CenterPotassium Qaqne1730-84-23 20:25:00* Test Item Value Reference Range Interpretation Comments Potassium Level (test code = 2823-3) 4.3 3.5-5.1 [facility] CenterChloride Rflgy2071-92-31 20:25:00* Test Item Value Reference Range Interpretation Comments Chloride Level (test code = 2075-0) 105 98-107 [facility] CenterCarbon Dioxide Cjzgj4139-12-46 20:25:00* Test Item Value Reference Range Interpretation Comments Carbon Dioxide Level (test code = 2028-9) 21 22-29 L [facility] CenterAnion Oax3588-69-98 20:25:00* Test Item Value Reference Range Interpretation Comments Anion Gap (test code = 81674-3) 16.3 8-16 H [facility] CenterBlood Urea Lqamcchy6968-15-74 20:25:00* Test Item Value Reference Range Interpretation Comments Blood Urea Nitrogen (test code = 3094-0) 15 7-26 [facility] CenterCreatinine2018-11-18 20:25:00* Test Item Value Reference Range Interpretation Comments Creatinine (test code = 2160-0) 1.30 0.72-1.25 H [facility] CenterBUN/Creatinine Oxhhy8087-53-55 20:25:00* Test Item Value Reference Range Interpretation Comments BUN/Creatinine Ratio (test code = 3097-3) 12 6-25 [facility] CenterEstimat Glomerular Filtration Rate 2018-04-02 20:25:00* Test Item Value Reference Range Interpretation Comments Estimat Glomerular Filtration Rate (test code = 070826709) 54 >60 L Ranges were taken from the National Kidney Disease Education Program and the [facility] Foundation literature.Reference ranges:60 or greater: Iyspew51-80 ( for 3 consecutive months): Chronic kidney disease 15 or less: Kidney failureLas [facility]mas Medical CenterGlucose Mwmjf2051-47-28 20:25:00* Test Item Value Reference Range Interpretation Comments Glucose Level (test code = QHU1917) 101 74-118 [facility] CenterCalcium Lulvl5373-90-58 20:25:00* Test Item Value Reference Range Interpretation Comments Calcium Level (test code = 62151-5) 8.9 8.4-10.2 [facility] CenterTotal Dympxmtfv8640-54-58 20:25:00* Test Item Value Reference Range Interpretation Comments Total Bilirubin (test code = 1975-2) 0.7 0.2-1.2 [facility] CenterAspartate Amino Transf (AST/SGOT) 2018-04-02 20:25:00* Test Item Value Reference Range Interpretation Comments Aspartate Amino Transf (AST/SGOT) (test code = Aspartate Amino Transf (AST/SGOT)) 15 5-34 [facility] CenterAlanine Aminotransferase (ALT/SGPT) 2018-04-02 20:25:00* Test Item Value Reference Range Interpretation Comments Alanine Aminotransferase (ALT/SGPT) (test code = 1742-6) 10 0-55 [facility] CenterTotal Mtisgsh3951-49-54 20:25:00* Test Item Value Reference Range Interpretation Comments Total Protein (test code = 2885-2) 8.2 6.5-8.1 H [facility] CenterAlbumin2018-11-18 20:25:00* Test Item Value Reference Range Interpretation Comments Albumin (test code = 1751-7) 4.0 3.5-5.0 [facility] CenterGlobulin2018-11-18 20:25:00* Test Item Value Reference Range Interpretation Comments Globulin (test code = 06033-3) 4.2 2.3-3.5 H [facility] CenterAlbumin/Globulin Pehqf4386-48-31 20:25:00 * Test Item Value Reference Range Interpretation Comments Albumin/Globulin Ratio (test code = 1759-0) 1.0 0.8-2.0 [facility] CenterAlkaline Tfuksrpmaan9264-87-00 20:25:00* Test Item Value Reference Range Interpretation Comments Alkaline Phosphatase (test code = 6768-6) 100 40-150 [facility] CenterAmylase Ktodf0187-49-21 20:25:00* Test Item Value Reference Range Interpretation Comments Amylase Level (test code = 1798-8) 41 25-125 [facility] CenterLipase2018-11-18 20:25:00* Test Item Value Reference Range Interpretation Comments Lipase (test code = 3040-3) 4 8-78 L [facility] Hospitalodium Nqkli3008-50-80 20:25:00* Test Item Value Reference Range Interpretation Comments Sodium Level (test code = 2951-2) 138 136-145 [facility] CenterPotassium Xdjxd0582-15-32 20:25:00* Test Item Value Reference Range Interpretation Comments Potassium Level (test code = 2823-3) 4.3 3.5-5.1 [facility] CenterChloride Wjfma1272-55-11 20:25:00* Test Item Value Reference Range Interpretation Comments Chloride Level (test code = 2075-0) 105 98-107 [facility] CenterCarbon Dioxide Pndwl3055-20-09 20:25:00* Test Item Value Reference Range Interpretation Comments Carbon Dioxide Level (test code = 2028-9) 21 22-29 L [facility] CenterAnion Urm8752-74-66 20:25:00* Test Item Value Reference Range Interpretation Comments Anion Gap (test code = 64777-0) 16.3 8-16 H [facility] CenterBlood Urea Doowvkax9886-52-94 20:25:00* Test Item Value Reference Range Interpretation Comments Blood Urea Nitrogen (test code = 3094-0) 15 7-26 [facility] CenterCreatinine2018-11-18 20:25:00* Test Item Value Reference Range Interpretation Comments Creatinine (test code = 2160-0) 1.30 0.72-1.25 H [facility] CenterBUN/Creatinine Bnhkh6064-25-56 20:25:00* Test Item Value Reference Range Interpretation Comments BUN/Creatinine Ratio (test code = 3097-3) 12 6-25 [facility] CenterEstimat Glomerular Filtration Rate 2018-04-02 20:25:00* Test Item Value Reference Range Interpretation Comments Estimat Glomerular Filtration Rate (test code = 855172616) 54 >60 L Ranges were taken from the National Kidney Disease Education Program and the [facility] Kidney Foundation literature.Reference ranges:60 or greater: Oefall85-56 ( for 3 consecutive months): Chronic kidney disease 15 or less: Kidney failureLas [facility]mas Medical CenterGlucose Lprhw0638-32-04 20:25:00* Test Item Value Reference Range Interpretation Comments Glucose Level (test code = ULF6934) 101 74-118 [facility] CenterCalcium Wgfzn1909-85-46 20:25:00* Test Item Value Reference Range Interpretation Comments Calcium Level (test code = 53682-7) 8.9 8.4-10.2 [facility] CenterTotal Piiuuzauq5404-77-21 20:25:00* Test Item Value Reference Range Interpretation Comments Total Bilirubin (test code = 1975-2) 0.7 0.2-1.2 [facility] CenterAspartate Amino Transf (AST/SGOT) 2018-04-02 20:25:00* Test Item Value Reference Range Interpretation Comments Aspartate Amino Transf (AST/SGOT) (test code = Aspartate Amino Transf (AST/SGOT)) 15 5-34 [facility] CenterAlanine Aminotransferase (ALT/SGPT) 2018-04-02 20:25:00* Test Item Value Reference Range Interpretation Comments Alanine Aminotransferase (ALT/SGPT) (test code = 1742-6) 10 0-55 [facility] CenterTotal Laqbobe1268-84-16 20:25:00* Test Item Value Reference Range Interpretation Comments Total Protein (test code = 2885-2) 8.2 6.5-8.1 H [facility] CenterAlbumin2018-11-18 20:25:00* Test Item Value Reference Range Interpretation Comments Albumin (test code = 1751-7) 4.0 3.5-5.0 [facility] CenterGlobulin2018-11-18 20:25:00* Test Item Value Reference Range Interpretation Comments Globulin (test code = 68193-1) 4.2 2.3-3.5 H [facility] CenterAlbumin/Globulin Udquf8178-75-03 20:25:00 * Test Item Value Reference Range Interpretation Comments Albumin/Globulin Ratio (test code = 1759-0) 1.0 0.8-2.0 [facility] CenterAlkaline Rkukqqxwwzb7372-06-29 20:25:00* Test Item Value Reference Range Interpretation Comments Alkaline Phosphatase (test code = 6768-6) 100 40-150 [facility] CenterAmylase Nqidj1287-34-61 20:25:00* Test Item Value Reference Range Interpretation Comments Amylase Level (test code = 1798-8) 41 25-125 [facility] CenterLipase2018-11-18 20:25:00* Test Item Value Reference Range Interpretation Comments Lipase (test code = 3040-3) 4 8-78 L [facility] CenterAmylase Nvmlt4869-27-97 20:25:00* Test Item Value Reference Range Interpretation Comments Amylase Level (test code = 1798-8) 41 25-125 [facility] CenterAmylase Byipl3062-35-63 20:25:00* Test Item Value Reference Range Interpretation Comments Amylase Level (test code = 1798-8) 41 25-125 [facility] CenterAmylase Kpmpv3992-84-07 20:25:00* Test Item Value Reference Range Interpretation Comments Amylase Level (test code = 1798-8) 41 25-125 [facility] CenterAmylase Tbybp1186-69-95 20:25:00* Test Item Value Reference Range Interpretation Comments Amylase Level (test code = 1798-8) 41 25-125 [facility] CenterAmylase Juaic6598-10-92 20:25:00* Test Item Value Reference Range Interpretation Comments Amylase Level (test code = 1798-8) 41 25-125 [facility] CenterAmylase Jfpsa5125-31-34 20:25:00* Test Item Value Reference Range Interpretation Comments Amylase Level (test code = 1798-8) 41 25-125 [facility] CenterAmylase Lqshm2817-00-73 20:25:00* Test Item Value Reference Range Interpretation Comments Amylase Level (test code = 1798-8) 41 25-125 [facility] CenterAmylase Bukcl8385-19-50 20:25:00* Test Item Value Reference Range Interpretation Comments Amylase Level (test code = 1798-8) 41 25-125 [facility] CenterUrine Envgn5374-05-06 20:15:00* Test Item Value Reference Range Interpretation Comments Urine Color (test code = 5778-6) YELLOW YELLOW [facility] CenterU[facility] Ciasvfu2251-35-23 20:15:00* Test Item Value Reference Range Interpretation Comments Urine Clarity (test code = 09733-8) CLEAR CLEAR [facility] CenterU[facility] HBY7023-56-52 20:15:00* Test Item Value Reference Range Interpretation Comments Urine WBC (test code = 5821-4) 0-5 0-5 [facility] CenterU[facility] IAN4829-48-86 20:15:00* Test Item Value Reference Range Interpretation Comments Urine RBC (test code = 78083-0) 0-5 0-5 [facility] CenterU[facility] Jmgazhol0838-24-86 20:15:00* Test Item Value Reference Range Interpretation Comments Urine Bacteria (test code = 54104-9) NONE NONE [facility] CenterUrine Epithelial Uwmrw5272-55-78 20:15:00 * Test Item Value Reference Range Interpretation Comments Urine Epithelial Cells (test code = 18433-5) RARE NONE [facility] CenterU[facility] Iuuwi3852-80-14 20:15:00* Test Item Value Reference Range Interpretation Comments Urine Color (test code = 5778-6) YELLOW YELLOW [facility] CenterU[facility] Twatnxm0556-66-28 20:15:00* Test Item Value Reference Range Interpretation Comments Urine Clarity (test code = 11575-8) CLEAR CLEAR [facility] CenterU[facility] YDY1215-40-70 20:15:00* Test Item Value Reference Range Interpretation Comments Urine WBC (test code = 5821-4) 0-5 0-5 [facility] CenterU[facility] WGC0183-99-78 20:15:00* Test Item Value Reference Range Interpretation Comments Urine RBC (test code = 29286-6) 0-5 0-5 [facility] CenterU[facility] Jttlycht7128-62-90 20:15:00* Test Item Value Reference Range Interpretation Comments Urine Bacteria (test code = 76765-4) NONE NONE [facility] CenterU[facility] Epithelial Rrlqd0223-72-71 20:15:00 * Test Item Value Reference Range Interpretation Comments Urine Epithelial Cells (test code = 44608-7) RARE NONE [facility] CenterU[facility] Emfoh5091-33-61 20:15:00* Test Item Value Reference Range Interpretation Comments Urine Color (test code = 5778-6) YELLOW YELLOW [facility] CenterU[facility] Ndwscmd9157-01-90 20:15:00* Test Item Value Reference Range Interpretation Comments Urine Clarity (test code = 87224-6) CLEAR CLEAR [facility] CenterU[facility] HRJ2703-55-97 20:15:00* Test Item Value Reference Range Interpretation Comments Urine WBC (test code = 5821-4) 0-5 0-5 [facility] CenterU[facility] IBE7077-97-86 20:15:00* Test Item Value Reference Range Interpretation Comments Urine RBC (test code = 56667-1) 0-5 0-5 [facility] CenterU[facility] Bmizjgaq5455-47-28 20:15:00* Test Item Value Reference Range Interpretation Comments Urine Bacteria (test code = 49296-5) NONE NONE [facility] CenterU[facility] Epithelial Vtvum5007-73-25 20:15:00 * Test Item Value Reference Range Interpretation Comments Urine Epithelial Cells (test code = 82482-0) RARE NONE [facility] CenterU[facility] Hsooy9522-45-66 20:15:00* Test Item Value Reference Range Interpretation Comments Urine Color (test code = 5778-6) YELLOW YELLOW [facility] CenterU[facility] Ttttrtf4410-71-23 20:15:00* Test Item Value Reference Range Interpretation Comments Urine Clarity (test code = 25292-7) CLEAR CLEAR [facility] CenterU[facility] XOT9036-04-76 20:15:00* Test Item Value Reference Range Interpretation Comments Urine WBC (test code = 5821-4) 0-5 0-5 [facility] IOW0187-04-73 20:15:00* Test Item Value Reference Range Interpretation Comments Urine RBC (test code = 43269-2) 0-5 0-5 [facility] CenterU[facility] Iqtcmfhf3857-68-85 20:15:00* Test Item Value Reference Range Interpretation Comments Urine Bacteria (test code = 77508-0) NONE NONE [facility] CenterU[facility] Epithelial Ztwps1591-37-11 20:15:00 * Test Item Value Reference Range Interpretation Comments Urine Epithelial Cells (test code = 88352-7) RARE NONE [facility] CenterU[facility] Wrnre5012-18-26 20:15:00* Test Item Value Reference Range Interpretation Comments Urine Color (test code = 5778-6) YELLOW YELLOW [facility] Gfehbdc0593-50-14 20:15:00* Test Item Value Reference Range Interpretation Comments Urine Clarity (test code = 33924-8) CLEAR CLEAR [facility] CenterU[facility] WVA6429-26-14 20:15:00* Test Item Value Reference Range Interpretation Comments Urine WBC (test code = 5821-4) 0-5 0-5 [facility] CBP9340-05-87 20:15:00* Test Item Value Reference Range Interpretation Comments Urine RBC (test code = 50180-5) 0-5 0-5 [facility] Brlrgigv4361-65-15 20:15:00* Test Item Value Reference Range Interpretation Comments Urine Bacteria (test code = 14369-0) NONE NONE [facility] CenterU[facility] Epithelial Ujrns7270-02-92 20:15:00 * Test Item Value Reference Range Interpretation Comments Urine Epithelial Cells (test code = 47422-8) RARE NONE [facility] Pjndq1335-53-34 20:15:00* Test Item Value Reference Range Interpretation Comments Urine Color (test code = 5778-6) YELLOW YELLOW [facility] CenterU[facility] Dwylsrj4090-14-27 20:15:00* Test Item Value Reference Range Interpretation Comments Urine Clarity (test code = 97905-8) CLEAR CLEAR [facility] CenterU[facility] VMD4262-98-96 20:15:00* Test Item Value Reference Range Interpretation Comments Urine WBC (test code = 5821-4) 0-5 0-5 [facility] EBG3409-35-59 20:15:00* Test Item Value Reference Range Interpretation Comments Urine RBC (test code = 53547-1) 0-5 0-5 [facility] Pkqguieo5665-81-73 20:15:00* Test Item Value Reference Range Interpretation Comments Urine Bacteria (test code = 61448-3) NONE NONE [facility] Epithelial Cjjjw2575-28-65 20:15:00 * Test Item Value Reference Range Interpretation Comments Urine Epithelial Cells (test code = 40354-6) RARE NONE [facility] Mevox5354-19-29 20:15:00* Test Item Value Reference Range Interpretation Comments Urine Color (test code = 5778-6) YELLOW YELLOW [facility] Jpxikmm8470-70-19 20:15:00* Test Item Value Reference Range Interpretation Comments Urine Clarity (test code = 11188-2) CLEAR CLEAR [facility] IDT9968-74-85 20:15:00* Test Item Value Reference Range Interpretation Comments Urine WBC (test code = 5821-4) 0-5 0-5 [facility] POR8046-42-23 20:15:00* Test Item Value Reference Range Interpretation Comments Urine RBC (test code = 56974-8) 0-5 0-5 [facility] Vvmspsch5335-26-38 20:15:00* Test Item Value Reference Range Interpretation Comments Urine Bacteria (test code = 20305-1) NONE NONE [facility] Epithelial Ebzgw8198-23-15 20:15:00 * Test Item Value Reference Range Interpretation Comments Urine Epithelial Cells (test code = 62389-2) RARE NONE [facility] Rdnhl1539-87-61 20:15:00* Test Item Value Reference Range Interpretation Comments Urine Color (test code = 5778-6) YELLOW YELLOW [facility] Nuijifr3888-92-68 20:15:00* Test Item Value Reference Range Interpretation Comments Urine Clarity (test code = 11240-8) CLEAR CLEAR [facility] ZCA1967-08-65 20:15:00* Test Item Value Reference Range Interpretation Comments Urine WBC (test code = 5821-4) 0-5 0-5 [facility] ATH6304-04-35 20:15:00* Test Item Value Reference Range Interpretation Comments Urine RBC (test code = 66656-0) 0-5 0-5 [facility] Vyprcish7622-79-79 20:15:00* Test Item Value Reference Range Interpretation Comments Urine Bacteria (test code = 00770-7) NONE NONE [facility] CenterU[facility] Epithelial Cawum8450-84-44 20:15:00 * Test Item Value Reference Range Interpretation Comments Urine Epithelial Cells (test code = 63385-1) RARE NONE [facility] Avpcj3351-59-17 20:15:00* Test Item Value Reference Range Interpretation Comments Urine Color (test code = 5778-6) YELLOW YELLOW [facility] Pbsyuwi1496-79-15 20:15:00* Test Item Value Reference Range Interpretation Comments Urine Clarity (test code = 52766-6) CLEAR CLEAR [facility] QKO2340-88-10 20:15:00* Test Item Value Reference Range Interpretation Comments Urine WBC (test code = 5821-4) 0-5 0-5 [facility] TIS0792-85-60 20:15:00* Test Item Value Reference Range Interpretation Comments Urine RBC (test code = 86050-9) 0-5 0-5 [facility] Rsuhkgxl3107-92-67 20:15:00* Test Item Value Reference Range Interpretation Comments Urine Bacteria (test code = 93975-9) NONE NONE [facility] CenterU[facility] Epithelial Zoifa2363-77-09 20:15:00 * Test Item Value Reference Range Interpretation Comments Urine Epithelial Cells (test code = 70764-0) [facility]ARE NONE [facility] Kogar0226-94-30 20:15:00* Test Item Value Reference Range Interpretation Comments Urine Color (test code = 5778-6) YELLOW YELLOW [facility] Ahvwprn1488-94-50 20:15:00* Test Item Value Reference Range Interpretation Comments Urine Clarity (test code = 21253-2) CLEAR CLEAR [facility] UBF8775-19-31 20:15:00* Test Item Value Reference Range Interpretation Comments Urine WBC (test code = 5821-4) 0-5 0-5 [facility] GSG0355-43-42 20:15:00* Test Item Value Reference Range Interpretation Comments Urine RBC (test code = 45168-1) 0-5 0-5 [facility] Soyyrzwy0526-80-09 20:15:00* Test Item Value Reference Range Interpretation Comments Urine Bacteria (test code = 64849-8) NONE NONE [facility] Ep[facility]helial Wtkva8312-03-73 20:15:00 * Test Item Value Reference Range Interpretation Comments Urine Epithelial Cells (test code = 98020-6) RARE NONE [facility] Hrzsg8257-38-59 20:15:00* Test Item Value Reference Range Interpretation Comments Urine Color (test code = 5778-6) YELLOW YELLOW [facility] Nnohbda1367-12-84 20:15:00* Test Item Value Reference Range Interpretation Comments Urine Clarity (test code = 05131-9) CLEAR CLEAR [facility] OAR7574-48-63 20:15:00* Test Item Value Reference Range Interpretation Comments Urine WBC (test code = 5821-4) 0-5 0-5 [facility] BCE4252-15-37 20:15:00* Test Item Value Reference Range Interpretation Comments Urine RBC (test code = 45137-9) 0-5 0-5 [facility] Xzyeohfr8498-96-27 20:15:00* Test Item Value Reference Range Interpretation Comments Urine Bacteria (test code = 45380-3) NONE NONE [facility] Ep[facility]helial Npujp6735-47-44 20:15:00 * Test Item Value Reference Range Interpretation Comments Urine Epithelial Cells (test code = 60828-0) RARE NONE [facility] Specific Qcvhowg0555-63-60 20:07:00 * Test Item Value Reference Range Interpretation Comments Urine Specific [place] (test code = 5811-5) 1.010 1.010-1.02 5 [facility] fH4283-84-22 20:07:00* Test Item Value Reference Range Interpretation Comments Urine pH (test code = 73209-6) 6 5-7 [facility] Leukocyte Kztztvwb7722-02-16 20:07:00* Test Item Value Reference Range Interpretation Comments Urine Leukocyte Esterase (test code = 5799-2) NEGATIVE NEGATIVE [facility] Qknscfj6489-77-34 20:07:00* Test Item Value Reference Range Interpretation Comments Urine Nitrite (test code = 49254-4) NEGATIVE NEGATIVE [facility] Wwaobvi5898-83-48 20:07:00* Test Item Value Reference Range Interpretation Comments Urine Protein (test code = 5804-0) NEGATIVE NEGATIVE [facility] Glucose (UA)2018-04-02 20:07:00* Test Item Value Reference Range Interpretation Comments Urine Glucose (UA) (test code = 2349-9) NEGATIVE NEGATIVE [facility] Bxnhydm6379-58-14 20:07:00* Test Item Value Reference Range Interpretation Comments Urine Ketones (test code = 90897-5) NEGATIVE NEGATIVE [facility] Prvmmmwzqwju0797-30-25 20:07:00* Test Item Value Reference Range Interpretation Comments Urine Urobilinogen (test code = 81427-2) 0.2 0.2-1 [facility] Tuzzfrpax9166-66-95 20:07:00* Test Item Value Reference Range Interpretation Comments Urine Bilirubin (test code = 1978-6) NEGATIVE NEGATIVE [facility] Wcykh9147-06-32 20:07:00* Test Item Value Reference Range Interpretation Comments Urine Blood (test code = 68468-8) NEGATIVE NEGATIVE [facility] Specific Zbwyjcs6261-32-52 20:07:00 * Test Item Value Reference Range Interpretation Comments Urine Specific [place] (test code = 5811-5) 1.010 1.010-1.02 5 [facility] [id number] 20:07:00* Test Item Value Reference Range Interpretation Comments Urine pH (test code = 29623-2) 6 5-7 [facility] Leukocyte Ugerhhce3894-75-34 20:07:00* Test Item Value Reference Range Interpretation Comments Urine Leukocyte Esterase (test code = 5799-2) NEGATIVE NEGATIVE [facility] Mstxgmy5739-73-69 20:07:00* Test Item Value Reference Range Interpretation Comments Urine Nitrite (test code = 70952-0) NEGATIVE NEGATIVE [facility] Erskzgs8398-14-30 20:07:00* Test Item Value Reference Range Interpretation Comments Urine Protein (test code = 5804-0) NEGATIVE NEGATIVE [facility] Glucose (UA)2018-04-02 20:07:00* Test Item Value Reference Range Interpretation Comments Urine Glucose (UA) (test code = 2349-9) NEGATIVE NEGATIVE [facility] Vbgwqet5527-31-23 20:07:00* Test Item Value Reference Range Interpretation Comments Urine Ketones (test code = 44366-5) NEGATIVE NEGATIVE [facility] Ndpdldszravx5718-45-51 20:07:00* Test Item Value Reference Range Interpretation Comments Urine Urobilinogen (test code = 92234-2) 0.2 0.2-1 [facility] Xjrfqlxtr5660-92-51 20:07:00* Test Item Value Reference Range Interpretation Comments Urine Bilirubin (test code = 1978-6) NEGATIVE NEGATIVE [facility] Jskxl4622-17-51 20:07:00* Test Item Value Reference Range Interpretation Comments Urine Blood (test code = 96916-6) NEGATIVE NEGATIVE [facility] Specific Nafbgcs2314-74-28 20:07:00 * Test Item Value Reference Range Interpretation Comments Urine Specific [place] (test code = 5811-5) 1.010 1.010-1.02 5 [facility] oJ8940-59-60 20:07:00* Test Item Value Reference Range Interpretation Comments Urine pH (test code = 54557-7) 6 5-7 [facility] Leukocyte Fbqtlhjn6167-81-83 20:07:00* Test Item Value Reference Range Interpretation Comments Urine Leukocyte Esterase (test code = 5799-2) NEGATIVE NEGATIVE [facility] Ookhmsp5429-37-82 20:07:00* Test Item Value Reference Range Interpretation Comments Urine Nitrite (test code = 23966-6) NEGATIVE NEGATIVE [facility] Fpghsvm9748-72-13 20:07:00* Test Item Value Reference Range Interpretation Comments Urine Protein (test code = 5804-0) NEGATIVE NEGATIVE [facility] Glucose (UA)2018-04-02 20:07:00* Test Item Value Reference Range Interpretation Comments Urine Glucose (UA) (test code = 2349-9) NEGATIVE NEGATIVE [facility] Aeqgbbj2706-95-68 20:07:00* Test Item Value Reference Range Interpretation Comments Urine Ketones (test code = 43919-3) NEGATIVE NEGATIVE [facility] Vzdtdczenkfn0535-88-26 20:07:00* Test Item Value Reference Range Interpretation Comments Urine Urobilinogen (test code = 93583-9) 0.2 0.2-1 [facility] Wgijcbegx3965-83-67 20:07:00* Test Item Value Reference Range Interpretation Comments Urine Bilirubin (test code = 1978-6) NEGATIVE NEGATIVE [facility] Mcuoc9256-28-68 20:07:00* Test Item Value Reference Range Interpretation Comments Urine Blood (test code = 53907-4) NEGATIVE NEGATIVE [facility] Specific Wcuwcds0231-45-79 20:07:00 * Test Item Value Reference Range Interpretation Comments Urine Specific [place] (test code = 5811-5) 1.010 1.010-1.02 5 [facility] rR0621-03-16 20:07:00* Test Item Value Reference Range Interpretation Comments Urine pH (test code = 90590-8) 6 5-7 [facility] Leukocyte Kpfyuxhb8017-84-94 20:07:00* Test Item Value Reference Range Interpretation Comments Urine Leukocyte Esterase (test code = 5799-2) NEGATIVE NEGATIVE [facility] Huopkal1813-36-49 20:07:00* Test Item Value Reference Range Interpretation Comments Urine Nitrite (test code = 85309-9) NEGATIVE NEGATIVE [facility] Btlcsor1674-04-28 20:07:00* Test Item Value Reference Range Interpretation Comments Urine Protein (test code = 5804-0) NEGATIVE NEGATIVE [facility] Glucose (UA)2018-04-02 20:07:00* Test Item Value Reference Range Interpretation Comments Urine Glucose (UA) (test code = 2349-9) NEGATIVE NEGATIVE [facility] Iwxgerq8775-57-43 20:07:00* Test Item Value Reference Range Interpretation Comments Urine Ketones (test code = 44908-7) NEGATIVE NEGATIVE [facility] Bstzznbcgrxl7135-89-87 20:07:00* Test Item Value Reference Range Interpretation Comments Urine Urobilinogen (test code = 47851-5) 0.2 0.2-1 [facility] Gpkcpeknn7256-07-28 20:07:00* Test Item Value Reference Range Interpretation Comments Urine Bilirubin (test code = 1978-6) NEGATIVE NEGATIVE [facility] Rdomn8778-93-51 20:07:00* Test Item Value Reference Range Interpretation Comments Urine Blood (test code = 00415-0) NEGATIVE NEGATIVE [facility] Specific Tprifzc8025-47-75 20:07:00 * Test Item Value Reference Range Interpretation Comments Urine Specific [place] (test code = 5811-5) 1.010 1.010-1.02 5 [facility] cI5651-70-57 20:07:00* Test Item Value Reference Range Interpretation Comments Urine pH (test code = 24820-3) 6 5-7 [facility] Leukocyte Marhfpni4434-41-28 20:07:00* Test Item Value Reference Range Interpretation Comments Urine Leukocyte Esterase (test code = 5799-2) NEGATIVE NEGATIVE [facility] Aimtnfs2863-52-15 20:07:00* Test Item Value Reference Range Interpretation Comments Urine Nitrite (test code = 12246-1) NEGATIVE NEGATIVE [facility] Jtqmfxt7057-82-14 20:07:00* Test Item Value Reference Range Interpretation Comments Urine Protein (test code = 5804-0) NEGATIVE NEGATIVE [facility] Glucose (UA)2018-04-02 20:07:00* Test Item Value Reference Range Interpretation Comments Urine Glucose (UA) (test code = 2349-9) NEGATIVE NEGATIVE [facility] Fikwccv0519-47-72 20:07:00* Test Item Value Reference Range Interpretation Comments Urine Ketones (test code = 29249-3) NEGATIVE NEGATIVE [facility] Izjtuzprizgx8995-48-55 20:07:00* Test Item Value Reference Range Interpretation Comments Urine Urobilinogen (test code = 40936-1) 0.2 0.2-1 [facility] Srhjyzewv9619-32-77 20:07:00* Test Item Value Reference Range Interpretation Comments Urine Bilirubin (test code = 1978-6) NEGATIVE NEGATIVE [facility] Izlvo7809-94-16 20:07:00* Test Item Value Reference Range Interpretation Comments Urine Blood (test code = 87865-2) NEGATIVE NEGATIVE [facility] Specific Pwpstwh4291-39-02 20:07:00 * Test Item Value Reference Range Interpretation Comments Urine Specific [place] (test code = 5811-5) 1.010 1.010-1.02 5 [facility] vG7293-25-42 20:07:00* Test Item Value Reference Range Interpretation Comments Urine pH (test code = 12211-5) 6 5-7 [facility] Leukocyte Qbfxwnpy2966-13-90 20:07:00* Test Item Value Reference Range Interpretation Comments Urine Leukocyte Esterase (test code = 5799-2) NEGATIVE NEGATIVE [facility] Odnabkw9901-10-40 20:07:00* Test Item Value Reference Range Interpretation Comments Urine Nitrite (test code = 69905-9) NEGATIVE NEGATIVE [facility] Twgwcji7127-80-56 20:07:00* Test Item Value Reference Range Interpretation Comments Urine Protein (test code = 5804-0) NEGATIVE NEGATIVE [facility] Glucose (UA)2018-04-02 20:07:00* Test Item Value Reference Range Interpretation Comments Urine Glucose (UA) (test code = 2349-9) NEGATIVE NEGATIVE [facility] Ivhshuj2821-12-45 20:07:00* Test Item Value Reference Range Interpretation Comments Urine Ketones (test code = 40519-9) NEGATIVE NEGATIVE [facility] Jwgrymjeksrt8183-86-19 20:07:00* Test Item Value Reference Range Interpretation Comments Urine Urobilinogen (test code = 79733-9) 0.2 0.2-1 [facility] Fjxcwmojk5862-97-42 20:07:00* Test Item Value Reference Range Interpretation Comments Urine Bilirubin (test code = 1978-6) NEGATIVE NEGATIVE [facility] Tnojh7433-19-01 20:07:00* Test Item Value Reference Range Interpretation Comments Urine Blood (test code = 35434-6) NEGATIVE NEGATIVE [facility] Xelxeuc5762-55-71 20:07:00 * Test Item Value Reference Range Interpretation Comments Urine Specific [place] (test code = 5811-5) 1.010 1.010-1.02 5 [facility] hM7514-66-07 20:07:00* Test Item Value Reference Range Interpretation Comments Urine pH (test code = 52747-2) 6 5-7 [facility] Leukocyte Ywzafbnv9200-79-74 20:07:00* Test Item Value Reference Range Interpretation Comments Urine Leukocyte Esterase (test code = 5799-2) NEGATIVE NEGATIVE [facility] Wxkaoga2417-45-66 20:07:00* Test Item Value Reference Range Interpretation Comments Urine Nitrite (test code = 06164-2) NEGATIVE NEGATIVE [facility] Lukzaku9060-69-66 20:07:00* Test Item Value Reference Range Interpretation Comments Urine Protein (test code = 5804-0) NEGATIVE NEGATIVE [facility] Glucose (UA)2018-04-02 20:07:00* Test Item Value Reference Range Interpretation Comments Urine Glucose (UA) (test code = 2349-9) NEGATIVE NEGATIVE [facility] Wyrozqi1165-70-18 20:07:00* Test Item Value Reference Range Interpretation Comments Urine Ketones (test code = 86214-5) NEGATIVE NEGATIVE [facility] Syenlxhlnbih5862-90-56 20:07:00* Test Item Value Reference Range Interpretation Comments Urine Urobilinogen (test code = 51183-9) 0.2 0.2-1 [facility] Nnncvonhc2220-85-11 20:07:00* Test Item Value Reference Range Interpretation Comments Urine Bilirubin (test code = 1978-6) NEGATIVE NEGATIVE [facility] Flvfe5792-05-88 20:07:00* Test Item Value Reference Range Interpretation Comments Urine Blood (test code = 26584-7) NEGATIVE NEGATIVE [facility] Azftxfy8922-80-80 20:07:00 * Test Item Value Reference Range Interpretation Comments Urine Specific [place] (test code = 5811-5) 1.010 1.010-1.02 5 [facility] iF3054-53-15 20:07:00* Test Item Value Reference Range Interpretation Comments Urine pH (test code = 54226-8) 6 5-7 [facility] Leukocyte Sklpqsdv6895-93-36 20:07:00* Test Item Value Reference Range Interpretation Comments Urine Leukocyte Esterase (test code = 5799-2) NEGATIVE NEGATIVE [facility] Uilknry1182-28-85 20:07:00* Test Item Value Reference Range Interpretation Comments Urine Nitrite (test code = 29655-6) NEGATIVE NEGATIVE [facility] Ixgzzyr4102-70-44 20:07:00* Test Item Value Reference Range Interpretation Comments Urine Protein (test code = 5804-0) NEGATIVE NEGATIVE [facility] Glucose (UA)2018-04-02 20:07:00* Test Item Value Reference Range Interpretation Comments Urine Glucose (UA) (test code = 2349-9) NEGATIVE NEGATIVE [facility] Jsstqdd7848-95-84 20:07:00* Test Item Value Reference Range Interpretation Comments Urine Ketones (test code = 37459-0) NEGATIVE NEGATIVE [facility] Psofhcvubpmf7552-11-51 20:07:00* Test Item Value Reference Range Interpretation Comments Urine Urobilinogen (test code = 54003-2) 0.2 0.2-1 [facility] Ukvzgjedm7118-87-33 20:07:00* Test Item Value Reference Range Interpretation Comments Urine Bilirubin (test code = 1978-6) NEGATIVE NEGATIVE [facility] Dfmkt9274-30-16 20:07:00* Test Item Value Reference Range Interpretation Comments Urine Blood (test code = 82548-7) NEGATIVE NEGATIVE [facility] Nbamewy6938-60-70 20:07:00 * Test Item Value Reference Range Interpretation Comments Urine Specific [place] (test code = 5811-5) 1.010 1.010-1.02 5 [facility] bL4447-05-32 20:07:00* Test Item Value Reference Range Interpretation Comments Urine pH (test code = 43911-4) 6 5-7 [facility] Leukocyte Wbepooko4483-97-21 20:07:00* Test Item Value Reference Range Interpretation Comments Urine Leukocyte Esterase (test code = 5799-2) NEGATIVE NEGATIVE [facility] Bydnnbk2169-33-60 20:07:00* Test Item Value Reference Range Interpretation Comments Urine Nitrite (test code = 92954-6) NEGATIVE NEGATIVE [facility] Ieopcgz8925-01-20 20:07:00* Test Item Value Reference Range Interpretation Comments Urine Protein (test code = 5804-0) NEGATIVE NEGATIVE [facility] Glucose (UA)2018-04-02 20:07:00* Test Item Value Reference Range Interpretation Comments Urine Glucose (UA) (test code = 2349-9) NEGATIVE NEGATIVE [facility] Tgphkfq7492-39-16 20:07:00* Test Item Value Reference Range Interpretation Comments Urine Ketones (test code = 66482-3) NEGATIVE NEGATIVE [facility] Hzddbpmxdsvf6874-14-19 20:07:00* Test Item Value Reference Range Interpretation Comments Urine Urobilinogen (test code = 80738-0) 0.2 0.2-1 [facility] Pzfvmwjcj8432-42-73 20:07:00* Test Item Value Reference Range Interpretation Comments Urine Bilirubin (test code = 1978-6) NEGATIVE NEGATIVE [facility] Llxuh9303-78-82 20:07:00* Test Item Value Reference Range Interpretation Comments Urine Blood (test code = 91809-2) NEGATIVE NEGATIVE [facility] Specific Glearul1210-12-92 20:07:00 * Test Item Value Reference Range Interpretation Comments Urine Specific [place] (test code = 5811-5) 1.010 1.010-1.02 5 [facility] bQ1908-93-31 20:07:00* Test Item Value Reference Range Interpretation Comments Urine pH (test code = 68067-2) 6 5-7 [facility] Leukocyte Gygjqwyg6252-00-15 20:07:00* Test Item Value Reference Range Interpretation Comments Urine Leukocyte Esterase (test code = 5799-2) NEGATIVE NEGATIVE [facility] Vivgdrh4215-61-33 20:07:00* Test Item Value Reference Range Interpretation Comments Urine Nitrite (test code = 01969-7) NEGATIVE NEGATIVE [facility] Xhwkzgk0697-73-34 20:07:00* Test Item Value Reference Range Interpretation Comments Urine Protein (test code = 5804-0) NEGATIVE NEGATIVE [facility] Glucose (UA)2018-04-02 20:07:00* Test Item Value Reference Range Interpretation Comments Urine Glucose (UA) (test code = 2349-9) NEGATIVE NEGATIVE [facility] Ltxhnln1179-07-01 20:07:00* Test Item Value Reference Range Interpretation Comments Urine Ketones (test code = 54946-1) NEGATIVE NEGATIVE [facility] Dattyfljigfz1634-55-57 20:07:00* Test Item Value Reference Range Interpretation Comments Urine Urobilinogen (test code = 26278-4) 0.2 0.2-1 [facility] Dnbjfcacx7058-03-09 20:07:00* Test Item Value Reference Range Interpretation Comments Urine Bilirubin (test code = 1978-6) NEGATIVE NEGATIVE [facility] Okvjx8139-76-46 20:07:00* Test Item Value Reference Range Interpretation Comments Urine Blood (test code = 08349-6) NEGATIVE NEGATIVE [facility] Specific Zeavrsy8436-63-85 20:07:00 * Test Item Value Reference Range Interpretation Comments Urine Specific [place] (test code = 5811-5) 1.010 1.010-1.02 5 [facility] wQ8861-93-71 20:07:00* Test Item Value Reference Range Interpretation Comments Urine pH (test code = 19386-2) 6 5-7 [facility] Leukocyte Gggoelrv4260-37-18 20:07:00* Test Item Value Reference Range Interpretation Comments Urine Leukocyte Esterase (test code = 5799-2) NEGATIVE NEGATIVE [facility] Vtmaywv0456-41-58 20:07:00* Test Item Value Reference Range Interpretation Comments Urine Nitrite (test code = 47000-8) NEGATIVE NEGATIVE [facility] Fqptwqb8931-40-87 20:07:00* Test Item Value Reference Range Interpretation Comments Urine Protein (test code = 5804-0) NEGATIVE NEGATIVE [facility] Glucose (UA)2018-04-02 20:07:00* Test Item Value Reference Range Interpretation Comments Urine Glucose (UA) (test code = 2349-9) NEGATIVE NEGATIVE [facility] Qypxnlc8001-15-85 20:07:00* Test Item Value Reference Range Interpretation Comments Urine Ketones (test code = 81823-0) NEGATIVE NEGATIVE [facility] Wzulypmqbirb3593-96-54 20:07:00* Test Item Value Reference Range Interpretation Comments Urine Urobilinogen (test code = 57263-8) 0.2 0.2-1 [facility] Amgktctvx6079-66-74 20:07:00* Test Item Value Reference Range Interpretation Comments Urine Bilirubin (test code = 1978-6) NEGATIVE NEGATIVE [facility] Uvisw2738-55-63 20:07:00* Test Item Value Reference Range Interpretation Comments Urine Blood (test code = 75739-6) NEGATIVE NEGATIVE [facility] CenterWhite Blood Chjoi8382-36-30 20:02:00* Test Item Value Reference Range Interpretation Comments White Blood Count (test code = 6690-2) 6.93 4.8-10.8 [facility] Oywhn5825-72-82 20:02:00* Test Item Value Reference Range Interpretation Comments Red Blood Count (test code = 789-8) 4.47 4.3-5.7 [facility] CenterHemoglobin2018-11-18 20:02:00* Test Item Value Reference Range Interpretation Comments Hemoglobin (test code = 78307-3) 13.5 14.0-18.0 L [facility] CenterHematocrit2018-11-18 20:02:00* Test Item Value Reference Range Interpretation Comments Hematocrit (test code = 4544-3) 40.7 38.2-49.6 [facility] CenterMean Corpuscular Xyvsvi4972-30-65 20:02:00* Test Item Value Reference Range Interpretation Comments Mean Corpuscular Volume (test code = 787-2) 91.1 81-99 [facility]Mean Corpuscular Mfphycaphm7415-59-10 20:02:00* Test Item Value Reference Range Interpretation Comments Mean Corpuscular Hemoglobin (test code = 785-6) 30.2 28-32 [facility]Mean Corpuscular Hemoglobin Concent 2018-04-02 20:02:00* Test Item Value Reference Range Interpretation Comments Mean Corpuscular Hemoglobin Concent (test code = 786-4) 33.2 31-35 [facility] CenterRed Cell Distribution Dmfpa4367-91-77 20:02:00* Test Item Value Reference Range Interpretation Comments Red Cell Distribution Width (test code = 51943-9) 15.9 11.7 -14.4 H [facility] CenterPlatelet Gvvos1365-84-16 20:02:00* Test Item Value Reference Range Interpretation Comments Platelet Count (test code = 777-3) 221 140-360 [facility] CenterNeutrophils (%) (Auto)2018-04-02 20:02:00 * Test Item Value Reference Range Interpretation Comments Neutrophils (%) (Auto) (test code = 06517-2) 80.8 38.7-80.0 H [facility] CenterLymphocytes (%) (Auto)2018-04-02 20:02:00 * Test Item Value Reference Range Interpretation Comments Lymphocytes (%) (Auto) (test code = 736-9) 8.5 18.0-39.1 L [facility] CenterMonocytes (%) (Auto)2018-04-02 20:02:00* Test Item Value Reference Range Interpretation Comments Monocytes (%) (Auto) (test code = 5905-5) 8.8 4.4-11.3 [facility] CenterEosinophils (%) (Auto)2018-04-02 20:02:00 * Test Item Value Reference Range Interpretation Comments Eosinophils (%) (Auto) (test code = 713-8) 0.6 0.0-6.0 [facility] CenterBas[facility] (%) (Auto)2018-04-02 20:02:00* Test Item Value Reference Range Interpretation Comments Basophils (%) (Auto) (test code = 706-2) 0.4 0.0-1.0 [facility] CenterIM GRANULOCYTES %2018-04-02 20:02:00* Test Item Value Reference Range Interpretation Comments IM GRANULOCYTES % (test code = IM GRANULOCYTES %) 0.9 0.0- 1.0 [facility] CenterNeutrophils # (Auto)2018-04-02 20:02:00* Test Item Value Reference Range Interpretation Comments Neutrophils # (Auto) (test code = 751-8) 5.6 2.1-6.9 [facility] CenterLymphocytes # (Auto)2018-04-02 20:02:00* Test Item Value Reference Range Interpretation Comments Lymphocytes # (Auto) (test code = 59480-9) 0.6 1.0-3.2 L [facility] CenterMonocytes # (Auto)2018-04-02 20:02:00* Test Item Value Reference Range Interpretation Comments Monocytes # (Auto) (test code = 742-7) 0.6 0.2-0.8 [facility]Eosinophils # (Auto)2018-04-02 20:02:00* Test Item Value Reference Range Interpretation Comments Eosinophils # (Auto) (test code = 711-2) 0.0 0.0-0.4 [facility] CenterBasophils # (Auto)2018-04-02 20:02:00* Test Item Value Reference Range Interpretation Comments Basophils # (Auto) (test code = 704-7) 0.0 0.0-0.1 [facility] CenterAbsolute Immature Granulocyte (auto 2018-04-02 20:02:00* Test Item Value Reference Range Interpretation Comments Absolute Immature Granulocyte (auto (savanah t code = Absolute Immature Granulocyte (auto) 0.06 0-0.1 [facility] CenterWhite Blood Gzfew5415-00-26 20:02:00* Test Item Value Reference Range Interpretation Comments White Blood Count (test code = 6690-2) 6.93 4.8-10.8 [facility] CenterRed Blood Dxoni0804-56-63 20:02:00* Test Item Value Reference Range Interpretation Comments Red Blood Count (test code = 789-8) 4.47 4.3-5.7 [facility] CenterHemoglobin2018-11-18 20:02:00* Test Item Value Reference Range Interpretation Comments Hemoglobin (test code = 41346-0) 13.5 14.0-18.0 L [facility] CenterHematocrit2018-11-18 20:02:00* Test Item Value Reference Range Interpretation Comments Hematocrit (test code = 4544-3) 40.7 38.2-49.6 [facility] CenterMean Corpuscular Qyawja5161-18-17 20:02:00* Test Item Value Reference Range Interpretation Comments Mean Corpuscular Volume (test code = 787-2) 91.1 81-99 [facility] CenterMean Corpuscular Oxfkkqctop8159-65-93 20:02:00* Test Item Value Reference Range Interpretation Comments Mean Corpuscular Hemoglobin (test code = 785-6) 30.2 28-32 [facility] CenterMean Corpuscular Hemoglobin Concent 2018-04-02 20:02:00* Test Item Value Reference Range Interpretation Comments Mean Corpuscular Hemoglobin Concent (test code = 786-4) 33.2 31-35 [facility] CenterRed Cell Distribution Gevjp8038-05-01 20:02:00* Test Item Value Reference Range Interpretation Comments Red Cell Distribution Width (test code = 71820-2) 15.9 11.7 -14.4 H [facility] CenterPlatelet Qhjrz0955-33-99 20:02:00* Test Item Value Reference Range Interpretation Comments Platelet Count (test code = 777-3) 221 140-360 [facility] CenterNeutrophils (%) (Auto)2018-04-02 20:02:00 * Test Item Value Reference Range Interpretation Comments Neutrophils (%) (Auto) (test code = 25440-5) 80.8 38.7-80.0 H [facility] CenterLymphocytes (%) (Auto)2018-04-02 20:02:00 * Test Item Value Reference Range Interpretation Comments Lymphocytes (%) (Auto) (test code = 736-9) 8.5 18.0-39.1 L [facility] CenterMonocytes (%) (Auto)2018-04-02 20:02:00* Test Item Value Reference Range Interpretation Comments Monocytes (%) (Auto) (test code = 5905-5) 8.8 4.4-11.3 [facility] CenterEosinophils (%) (Auto)2018-04-02 20:02:00 * Test Item Value Reference Range Interpretation Comments Eosinophils (%) (Auto) (test code = 713-8) 0.6 0.0-6.0 [facility] CenterBasophils (%) (Auto)2018-04-02 20:02:00* Test Item Value Reference Range Interpretation Comments Basophils (%) (Auto) (test code = 706-2) 0.4 0.0-1.0 [facility] CenterIM GRANULOCYTES %2018-04-02 20:02:00* Test Item Value Reference Range Interpretation Comments IM GRANULOCYTES % (test code = IM GRANULOCYTES %) 0.9 0.0- 1.0 [facility] CenterNeutrophils # (Auto)2018-04-02 20:02:00* Test Item Value Reference Range Interpretation Comments Neutrophils # (Auto) (test code = 751-8) 5.6 2.1-6.9 [facility] CenterLymphocytes # (Auto)2018-04-02 20:02:00* Test Item Value Reference Range Interpretation Comments Lymphocytes # (Auto) (test code = 69962-5) 0.6 1.0-3.2 L [facility] CenterMonocytes # (Auto)2018-04-02 20:02:00* Test Item Value Reference Range Interpretation Comments Monocytes # (Auto) (test code = 742-7) 0.6 0.2-0.8 [facility] CenterEosinophils # (Auto)2018-04-02 20:02:00* Test Item Value Reference Range Interpretation Comments Eosinophils # (Auto) (test code = 711-2) 0.0 0.0-0.4 [facility] CenterBasophils # (Auto)2018-04-02 20:02:00* Test Item Value Reference Range Interpretation Comments Basophils # (Auto) (test code = 704-7) 0.0 0.0-0.1 [facility] CenterAbsolute Immature Granulocyte (auto 2018-04-02 20:02:00* Test Item Value Reference Range Interpretation Comments Absolute Immature Granulocyte (auto (savanah t code = Absolute Immature Granulocyte (auto) 0.06 0-0.1 [facility] CenterWhite Blood Nbfef9297-55-74 20:02:00* Test Item Value Reference Range Interpretation Comments White Blood Count (test code = 6690-2) 6.93 4.8-10.8 [facility] CenterRed Blood Skifo8131-78-07 20:02:00* Test Item Value Reference Range Interpretation Comments Red Blood Count (test code = 789-8) 4.47 4.3-5.7 [facility] CenterHemoglobin2018-11-18 20:02:00* Test Item Value Reference Range Interpretation Comments Hemoglobin (test code = 25288-6) 13.5 14.0-18.0 L [facility] CenterHematocrit2018-11-18 20:02:00* Test Item Value Reference Range Interpretation Comments Hematocrit (test code = 4544-3) 40.7 38.2-49.6 [facility] CenterMean Corpuscular Gfztpb4236-33-15 20:02:00* Test Item Value Reference Range Interpretation Comments Mean Corpuscular Volume (test code = 787-2) 91.1 81-99 [facility] CenterMean Corpuscular Toaennosem0598-47-28 20:02:00* Test Item Value Reference Range Interpretation Comments Mean Corpuscular Hemoglobin (test code = 785-6) 30.2 28-32 [facility] Hemoglobin Concent 2018-04-02 20:02:00* Test Item Value Reference Range Interpretation Comments Mean Corpuscular Hemoglobin Concent (test code = 786-4) 33.2 31-35 [facility] CenterRed Cell Distribution Lbxhj9816-40-83 20:02:00* Test Item Value Reference Range Interpretation Comments Red Cell Distribution Width (test code = 19674-7) 15.9 11.7 -14.4 H [facility] CenterPlatelet Uquhf6950-29-78 20:02:00* Test Item Value Reference Range Interpretation Comments Platelet Count (test code = 777-3) 221 140-360 [facility] CenterNeutrophils (%) (Auto)2018-04-02 20:02:00 * Test Item Value Reference Range Interpretation Comments Neutrophils (%) (Auto) (test code = 95623-5) 80.8 38.7-80.0 H [facility] CenterLymphocytes (%) (Auto)2018-04-02 20:02:00 * Test Item Value Reference Range Interpretation Comments Lymphocytes (%) (Auto) (test code = 736-9) 8.5 18.0-39.1 L [facility] CenterMonocytes (%) (Auto)2018-04-02 20:02:00* Test Item Value Reference Range Interpretation Comments Monocytes (%) (Auto) (test code = 5905-5) 8.8 4.4-11.3 [facility] CenterEosinophils (%) (Auto)2018-04-02 20:02:00 * Test Item Value Reference Range Interpretation Comments Eosinophils (%) (Auto) (test code = 713-8) 0.6 0.0-6.0 [facility] CenterBasophils (%) (Auto)2018-04-02 20:02:00* Test Item Value Reference Range Interpretation Comments Basophils (%) (Auto) (test code = 706-2) 0.4 0.0-1.0 [facility] CenterIM GRANULOCYTES %2018-04-02 20:02:00* Test Item Value Reference Range Interpretation Comments IM GRANULOCYTES % (test code = IM GRANULOCYTES %) 0.9 0.0- 1.0 [facility] CenterNeutrophils # (Auto)2018-04-02 20:02:00* Test Item Value Reference Range Interpretation Comments Neutrophils # (Auto) (test code = 751-8) 5.6 2.1-6.9 [facility] CenterLymphocytes # (Auto)2018-04-02 20:02:00* Test Item Value Reference Range Interpretation Comments Lymphocytes # (Auto) (test code = 81832-0) 0.6 1.0-3.2 L [facility] CenterMonocytes # (Auto)2018-04-02 20:02:00* Test Item Value Reference Range Interpretation Comments Monocytes # (Auto) (test code = 742-7) 0.6 0.2-0.8 [facility] CenterEosinophils # (Auto)2018-04-02 20:02:00* Test Item Value Reference Range Interpretation Comments Eosinophils # (Auto) (test code = 711-2) 0.0 0.0-0.4 [facility] CenterBasophils # (Auto)2018-04-02 20:02:00* Test Item Value Reference Range Interpretation Comments Basophils # (Auto) (test code = 704-7) 0.0 0.0-0.1 [facility] CenterAbsolute Immature Granulocyte (auto 2018-04-02 20:02:00* Test Item Value Reference Range Interpretation Comments Absolute Immature Granulocyte (auto (savanah t code = Absolute Immature Granulocyte (auto) 0.06 0-0.1 [facility] CenterUrine Fine Granular Fplkj1613-60-32 10:35:00* Test Item Value Reference Range Interpretation Comments Urine Fine Granular Casts (test code = 91054-1) 1-5 >0 H [facility] CenterUrine Vxzuh2860-77-59 10:35:00* Test Item Value Reference Range Interpretation Comments Urine Mucus (test code = 8247-9) FEW RARE H [facility] CenterUrine Fine Granular Hdzjr7204-31-77 10:35:00* Test Item Value Reference Range Interpretation Comments Urine Fine Granular Casts (test code = 72487-1) 1-5 >0 H [facility] CenterUrine Swpfi1262-43-58 10:35:00* Test Item Value Reference Range Interpretation Comments Urine Mucus (test code = 8247-9) FEW RARE H [facility] CenterUrine Fine Granular Yauve0102-79-95 10:35:00* Test Item Value Reference Range Interpretation Comments Urine Fine Granular Casts (test code = 00552-5) 1-5 >0 H [facility] CenterUrine Jhzmo0297-45-40 10:35:00* Test Item Value Reference Range Interpretation Comments Urine Mucus (test code = 8247-9) FEW RARE H [facility] CenterUrine Fine Granular Pgsoc3515-29-92 10:35:00* Test Item Value Reference Range Interpretation Comments Urine Fine Granular Casts (test code = 88160-6) 1-5 >0 H [facility] CenterUrine Rmcdw9546-54-56 10:35:00* Test Item Value Reference Range Interpretation Comments Urine Mucus (test code = 8247-9) [facility] Civyl1874-56-92 10:35:00* Test Item Value Reference Range Interpretation Comments Urine Fine Granular Casts (test code = 99657-4) 1-5 >0 H [facility] CenterUrine Psslf6715-64-07 10:35:00* Test Item Value Reference Range Interpretation Comments Urine Mucus (test code = 8247-9) [facility] CenterU[facility] Fine Granular Szzhw0197-75-40 10:35:00* Test Item Value Reference Range Interpretation Comments Urine Fine Granular Casts (test code = 90844-3) 1-5 >0 H [facility] CenterUrine Odhpl9753-04-15 10:35:00* Test Item Value Reference Range Interpretation Comments Urine Mucus (test code = 8247-9) FEW [facility] H [facility] CenterUrine Fine Granular Mvoob2855-37-11 10:35:00* Test Item Value Reference Range Interpretation Comments Urine Fine Granular Casts (test code = 15457-4) 1-5 >0 H [facility] CenterUrine Glcbx3043-30-77 10:35:00* Test Item Value Reference Range Interpretation Comments Urine Mucus (test code = 8247-9) [facility] CenterU[facility] Fine Granular Jbcly3152-11-68 10:35:00* Test Item Value Reference Range Interpretation Comments Urine Fine Granular Casts (test code = 73404-1) 1-5 >0 H [facility] CenterUrine Zxjes0154-11-48 10:35:00* Test Item Value Reference Range Interpretation Comments Urine Mucus (test code = 8247-9) [facility] Fine Granular Cimts2374-62-18 10:35:00* Test Item Value Reference Range Interpretation Comments Urine Fine Granular Casts (test code = 30638-4) 1-5 >0 H [facility] CenterUrine Qnnny0856-57-95 10:35:00* Test Item Value Reference Range Interpretation Comments Urine Mucus (test code = 8247-9) FEW RARE H [facility] CenterUrine Fine Granular Bapbw6199-92-59 10:35:00* Test Item Value Reference Range Interpretation Comments Urine Fine Granular Casts (test code = 78610-2) 1-5 >0 H [facility] CenterUrine Rdkts8175-65-74 10:35:00* Test Item Value Reference Range Interpretation Comments Urine Mucus (test code = 8247-9) FEW RARE H [facility] CenterUrine Fine Granular Itljd3612-07-12 10:35:00* Test Item Value Reference Range Interpretation Comments Urine Fine Granular Casts (test code = 44645-5) 1-5 >0 H [facility] CenterUrine Nvpnl5739-29-31 10:35:00* Test Item Value Reference Range Interpretation Comments Urine Mucus (test code = 8247-9) FEW RARE H [facility] CenterCreatine Kinase JQ5046-23-59 10:02:00* Test Item Value Reference Range Interpretation Comments Creatine Kinase MB (test code = 69946-6) 2.70 0-5.0 [facility] CenterTroponin W5301-22-20 10:02:00* Test Item Value Reference Range Interpretation Comments Troponin I (test code = MBY6637) 0.017 0-0.300 [facility] CenterCreatine Kinase GY4086-42-69 10:02:00* Test Item Value Reference Range Interpretation Comments Creatine Kinase MB (test code = 62917-0) 2.70 0-5.0 [facility] CenterTroponin Y5166-15-38 10:02:00* Test Item Value Reference Range Interpretation Comments Troponin I (test code = FWV2480) 0.017 0-0.300 [facility] CenterCreatine Kinase SX9939-89-43 10:02:00* Test Item Value Reference Range Interpretation Comments Creatine Kinase MB (test code = 58480-5) 2.70 0-5.0 [facility] CenterTroponin W9329-73-61 10:02:00* Test Item Value Reference Range Interpretation Comments Troponin I (test code = KQE8014) 0.017 0-0.300 [facility] Smqid6814-78-16 09:47:00* Test Item Value Reference Range Interpretation Comments Magnesium Level (test code = 17627-6) 2.1 1.3-2.1 [facility] Xjkyno5662-62-07 09:47:00* Test Item Value Reference Range Interpretation Comments Creatine Kinase (test code = 2157-6) 61 30-200 [facility] Feklx6722-45-94 09:47:00* Test Item Value Reference Range Interpretation Comments Magnesium Level (test code = 74283-2) 2.1 1.3-2.1 [facility] CenterCrehon[facility] Rllfse6000-03-27 09:47:00* Test Item Value Reference Range Interpretation Comments Creatine Kinase (test code = 2157-6) 61 30-200 [facility] Qscxm3273-27-64 09:47:00* Test Item Value Reference Range Interpretation Comments Magnesium Level (test code = 45110-3) 2.1 1.3-2.1 [facility] CenterCreatine Uwpxpa0585-63-24 09:47:00* Test Item Value Reference Range Interpretation Comments Creatine Kinase (test code = 2157-6) 61 30-200 [facility] CenterProthrombin Nssn7603-10-54 09:43:00* Test Item Value Reference Range Interpretation Comments Prothrombin Time (test code = 5902-2) 14.2 11.9-14.5 [facility] CenterProthromb Time International Ratio 2018-03-15 09:43:00* Test Item Value Reference Range Interpretation Comments Prothromb Time International Ratio (test code = 6301-6) 1.01 Oral Anticoagulant Therapy INR Values:1. Low Intensity Therapy 1.5 - 2.02 . Moderate Intensity Therapy 2.0 - 3.03. High Intensity Therapy(1) 2.5 - 3. 54. High Intensity Therapy(2) 3.0 - 4.05. Panic Value INR > 5.0 [facility] CenterActivated Partial Thromboplast Time 2018-03-15 09:43:00* Test Item Value Reference Range Interpretation Comments Activated Partial Thromboplast Time (test code = 11863-6) 27.6 23.8-35.5 [facility] CenterProthrombin Fxnv9121-89-83 09:43:00* Test Item Value Reference Range Interpretation Comments Prothrombin Time (test code = 5902-2) 14.2 11.9-14.5 [facility] CenterProthromb Time International Ratio 2018-03-15 09:43:00* Test Item Value Reference Range Interpretation Comments Prothromb Time International Ratio (test code = 6301-6) 1.01 Oral Anticoagulant Therapy INR Values:1. Low Intensity Therapy 1.5 - 2.02 . Moderate Intensity Therapy 2.0 - 3.03. High Intensity Therapy(1) 2.5 - 3. 54. High Intensity Therapy(2) 3.0 - 4.05. Panic Value INR > 5.0 [facility] CenterActivated Partial Thromboplast Time 2018-03-15 09:43:00* Test Item Value Reference Range Interpretation Comments Activated Partial Thromboplast Time (test code = 38788-3) 27.6 23.8-35.5 [facility] CenterProthrombin Svmm1721-37-61 09:43:00* Test Item Value Reference Range Interpretation Comments Prothrombin Time (test code = 5902-2) 14.2 11.9-14.5 [facility] CenterProthromb Time International Ratio 2018-03-15 09:43:00* Test Item Value Reference Range Interpretation Comments Prothromb Time International Ratio (test code = 6301-6) 1.01 Oral Anticoagulant Therapy INR Values:1. Low Intensity Therapy 1.5 - 2.02 . Moderate Intensity Therapy 2.0 - 3.03. High Intensity Therapy(1) 2.5 - 3. 54. High Intensity Therapy(2) 3.0 - 4.05. Panic Value INR > 5.0 [facility] CenterActivated Partial Thromboplast Time 2018-03-15 09:43:00* Test Item Value Reference Range Interpretation Comments Activated Partial Thromboplast Time (test code = 60510-5) 27.6 23.8-35.5 [facility] CenterProthrombin Yzzq5786-72-98 09:43:00* Test Item Value Reference Range Interpretation Comments Prothrombin Time (test code = 5902-2) 14.2 11.9-14.5 [facility] CenterProthromb Time International Ratio 2018-03-15 09:43:00* Test Item Value Reference Range Interpretation Comments Prothromb Time International Ratio (test code = 6301-6) 1.01 Oral Anticoagulant Therapy INR Values:1. Low Intensity Therapy 1.5 - 2.02 . Moderate Intensity Therapy 2.0 - 3.03. High Intensity Therapy(1) 2.5 - 3. 54. High Intensity Therapy(2) 3.0 - 4.05. Panic Value INR > 5.0 [facility] CenterCT ABDOMEN/PELVIS [id number] 09:18:00 [place] [address] Patient Name: TEDDY LESTER MR #: [id number] : 1945 Age/Sex: 73/M Req #: [id number] Adm Physician: Ordered by: JANNETTE CARUSO MD Report #: [id number] Location: ER Room/Bed: Procedure: 1324-1125 C T/CT ABDOMEN/PELVIS WO Exam Date: 03/15/18 Exam Time : 0840 REPORT STATUS: Signed PRO CEDURE: CT ABDOMEN AND PELVIS WITHOUT CONTRAST TECHNIQUE: The abdomen a nd pelvis were scanned utilizing a multidetector helical scanner from the tristan phragm to the lesser trochanter. No oral or intravenous contrast was administ ered per referring physician request. Coronal and sagittal multiplanar reform ations were obtained. COMPARISON: 06/11/2017 INDICATIONS: right abd ominal pain FINDINGS: ABSENCE OF INTRAVENOUS CONTRAST DECREASES SENS ITIVITY FOR DETECTION OF FOCAL LESIONS AND VASCULAR PATHOLOGY. LOWER TH ORAX: Scattered foci of linear scar most notably laterally within the lingula and left lower lobe. Atherosclerotic calcification of the [place] coronary ar teries. Status post median sternotomy.. HEPATOBILIARY: No focal hepatic le selwyn or intrahepatic biliary dilatation. Status post cholecystectomy. SPLEE N: No splenomegaly. PANCREAS: No focal masses or ductal dilatation. ADRE NALS: No adrenal nodules. KIDNEYS/URETERS: No hydronephrosis, calculi, or inderjit d mass lesion. Unchanged 4.3 cm left renal cyst; smaller cysts project exophy tically from the medial and lateral aspects of the lower pole of the left kidney, also not significantly changed. Anterior right lower pole exophytic c yst also unchanged. No renal, ureteral, or bladder calculi. No hydronephrosis . PELVIC ORGANS/BLADDER: The urinary bladder is collapsed with associated w all thickening. Coarse prostatic calcifications. PERITONEUM / RETROPERITON EUM: No free air or fluid. LYMPH NODES: No pelvic sidewall, retroperitoneal, o r mesenteric lymphadenopathy. VESSELS: Atherosclerotic calcification of the abdominal aorta and major branch vessels without aneurysmal dilatation. Eval uation is otherwise limited in the absence of intravenous contrast. GI TRACT: Innumerable diverticula along the course of the colon, at highest conc entration along the sigmoid, without wall thickening or adjacent inflammatory change. Normal appendix. The stomach is collapsed with prominence of the rug al folds. No small bowel dilatation to suggest obstruction. BONES AND S OFT TISSUES: No focal soft tissue abnormalities. Multilevel vertebroplasty ch anges. Surgical hardware along the right sacroiliac joint. Diffuse osteopenia . No acute osseous abnormalities. IMPRESSION: No acute intra-abdomin al or pelvic CT abnormalities. No evidence of urolithiasis. Diffuse lar ge bowel diverticulosis without findings of diverticulitis. Atheroscleroti c vascular disease. Diffuse osteopenia status post multilevel vertebroplas ty. Dictated by: Gregorio Gamboa M.D. on 03/15/2018 at 9:18 Electroni artem approved by: Gregorio Gamboa M.D. on 03/15/2018 at 9:18 Dictat ed By: GREGORIO GAMBOA MD 7 Transcribed By: AMERICO on 03/15/18917 COPY TO: JANNETTE CARUSO MD CHEST 2 DNVSF6669-63-08 09:09:00 [place] [address] Patient Name: TEDDY LESTER MR #: [id number] : 1945 Age/Sex: 73/M Req #: [id number] Adm Physician: Ordered by: JANNETTE CARUSO MD Report #: [id number] Location: ER Room/Bed: Procedure: [id number] D X/CHEST 2 VIEWS Exam Date: Exam Time: REPORT STATUS: Signed PROCEDURE: X-RAY CHEST, TWO VIEWS COMPARISON: Chest radiograph 03/02/2018. INDICATIONS: FLANK PAIN FINDINGS: Lungs are well-inflated. No focal consolidation, pleural effusion, or pneumothorax. Scattered foci of linear scar are unchanged. Sta ble cardiomediastinal contour with median sternotomy wires and tortuosity of the thoracic aorta. Colonic interposition between the liver and right h emidiaphragm. Regional skeletal structures are intact. Vertebroplasty ceme nt within and adjacent lower thoracic vertebral bodies. CONCLUSION: No acute cardiopulmonary abnormality. Dictated by: Gregorio Gamboa M.D. on 03/15/2018 at 9:09 Electronically approved by: Gregorio Gamboa M.D. on 03/15/2018 at 9:09 Dictated By: GREGORIO GAMBOA MD 8 Transcribed By: AMERICO on 03/15/18908 COPY TO: JANNETTE CARUSO MD VQ LUNG SCAN VENT PERFUSION 2018-03-03 11:09:00 [place] [address] Patient Name: TEDDY LESTER MR #: [id number] : 1945 Age/Sex: 73/M Req #: [id number] Adm Physician: RED SKINNER MD Ordered by: YVETTE HERMAN MD Report #: [id number] Location: [facility] Room/Bed: [place] [address] Procedure: [id number] NM/VQ LUNG SCAN VENT PERFUSION Exam Date: Exam Time: REPORT STATUS: Signed Uriel tilation/perfusion lung scan Clinical Information: 73 M with chest pain int ermittently x 1 month; history of PE Comparison: Chest radiograph 018 Discussion: Xenon-133 gas 16 mCi was administered via inhalation. [place] mauricio images of the lungs in the posterior projection were obtained through sing le breath, equilibrium, and washout phases. Distribution of tracer activity i s irregular throughout the lungs. There are no segmental ventilatory defects. Washout of tracer is diffusely delayed without air trapping. Perfusion images of the lungs were obtained in multiple projections following intravenou s administration of approximately 6.6 mCi of Tc-99m MAA. Distribution of trace r is minimally irregular throughout the lungs. The contours of the lungs are well demarcated. There are no segmental perfusion defects of any size. The cardiomediastinal silhouette is unremarkable. Impression: Scan f indings represent a VERY LOW probability for acute pulmonary embolic disease b ased on the PIOPED II criteria. Scan evidence of obstructive lung disease. Signed by: Dr. Paulette Hauser M.D. on 03/03/2018 11:12 AM Dictated By: Myra HAUSER MD 111 Transc ribed By: ERICH on 03/03/181111 COPY TO: YVETTE HERMAN MD D- Dimer Quantitative (PE/DVT)2018-03-02 22:13:00* Test Item Value Reference Range Interpretation Comments D-Dimer Quantitative (PE/DVT) (test code = 09976-3) 0.48 0. 00-0.45 H [facility] CenterD-[facility] Quantitative (PE/DVT)2018-03-02 22:13:00* Test Item Value Reference Range Interpretation Comments D-Dimer Quantitative (PE/DVT) (test code = 80292-3) 0.48 0. 00-0.45 H [facility] CenterD-Dimer Quantitative (PE/DVT)2018-03-02 22:13:00* Test Item Value Reference Range Interpretation Comments D-Dimer Quantitative (PE/DVT) (test code = 83050-8) 0.48 0. 00-0.45 H [facility] CenterD-Dimer Quantitative (PE/DVT)2018-03-02 22:13:00* Test Item Value Reference Range Interpretation Comments D-Dimer Quantitative (PE/DVT) (test code = 54641-6) 0.48 0. 00-0.45 H [facility] CenterD-Dimer Quantitative (PE/DVT)2018-03-02 22:13:00* Test Item Value Reference Range Interpretation Comments D-Dimer Quantitative (PE/DVT) (test code = 98683-4) 0.48 0. 00-0.45 [facility] CenterD-Dimer Quantitative (PE/DVT)2018-03-02 22:13:00* Test Item Value Reference Range Interpretation Comments D-Dimer Quantitative (PE/DVT) (test code = 78994-2) 0.48 0. 00-0.45 H [facility] ([facility]/DVT)2018-03-02 22:13:00* Test Item Value Reference Range Interpretation Comments D-Dimer Quantitative (PE/DVT) (test code = 54767-3) 0.48 0. 00-0.45 H [facility] CenterArterial Blood [id number] 21:59:00* Test Item Value Reference Range Interpretation Comments Arterial Blood pH (test code = 2744-1) 7.47 7.31-7.41 H [facility] CenterAr[facility]ial Blood Partial Pressure CO2 2018-03-02 21:59:00* Test Item Value Reference Range Interpretation Comments Arterial Blood Partial Pressure CO2 (test code = 2018-12) 29 41-51 L [facility] CenterAr[facility] Blood Partial Pressure O2 2018-03-02 21:59:00* Test Item Value Reference Range Interpretation Comments Arterial Blood Partial Pressure O2 (test code = 2018-12) 58 80-105 L [facility] CenterAr[facility] Blood [id number] 21:59:00* Test Item Value Reference Range Interpretation Comments Arterial Blood HCO3 (test code = 1960-4) 21 23-28 L [facility] [id number] 21:59:00* Test Item Value Reference Range Interpretation Comments Arterial Blood Base Excess (test code = 1925-7) -2.0 -2-3 [facility] Blood Oxygen Saturation 2018-03-02 21:59:00* Test Item Value Reference Range Interpretation Comments Arterial Blood Oxygen Saturation (test code = 2708-6) 92.0 95-98 L [facility] CenterFiO22018-10-18 21:59:00* Test Item Value Reference Range Interpretation Comments FiO2 (test code = FiO2) 21 PT WAS ON RA FOR MORE THAN 30 MINS BEFORE THE ABG WAS DRAWN: 90%/84/22. ...PT PL ACED BACK ON 2L NC AFTER THE ABGCHI [facility] Blood [id number] 21:59:00* Test Item Value Reference Range Interpretation Comments Arterial Blood pH (test code = 2744-1) 7.47 7.31-7.41 H [facility] Center[facility] Partial Pressure CO2 2018-03-02 21:59:00* Test Item Value Reference Range Interpretation Comments Arterial Blood Partial Pressure CO2 (test code = 2018-) 29 41-51 L [facility]Ar[facility] Blood Partial Pressure O2 2018-03-02 21:59:00* Test Item Value Reference Range Interpretation Comments Arterial Blood Partial Pressure O2 (test code = 2018-) 58 80-105 L [facility]Ar[facility] Blood [id number] 21:59:00* Test Item Value Reference Range Interpretation Comments Arterial Blood HCO3 (test code = 1960-4) 21 23-28 L [facility] CenterAr[facility] Blood Base [id number] 21:59:00* Test Item Value Reference Range Interpretation Comments Arterial Blood Base Excess (test code = 1925-7) -2.0 -2-3 [facility] Blood Oxygen Saturation 2018-03-02 21:59:00* Test Item Value Reference Range Interpretation Comments Arterial Blood Oxygen Saturation (test code = 2708-6) 92.0 95-98 L [facility] CenterFiO22018-10-18 21:59:00* Test Item Value Reference Range Interpretation Comments FiO2 (test code = FiO2) 21 PT WAS ON RA FOR MORE THAN 30 MINS BEFORE THE ABG WAS DRAWN: 90%/84/22. ...PT PL ACED BACK ON 2L NC AFTER [facility]GCHI [facility] [id number] 21:59:00* Test Item Value Reference Range Interpretation Comments Arterial Blood pH (test code = 2744-1) 7.47 7.31-7.41 H [facility] CenterAr[facility] Blood Partial Pressure CO2 2018-03-02 21:59:00* Test Item Value Reference Range Interpretation Comments Arterial Blood Partial Pressure CO2 (test code = 2018-12) 29 41-51 L [facility] CenterAr[facility] Blood Partial Pressure O2 2018-03-02 21:59:00* Test Item Value Reference Range Interpretation Comments Arterial Blood Partial Pressure O2 (test code = 2018-) 58 80-105 L [facility] CenterAr[facility] Blood [id number] 21:59:00* Test Item Value Reference Range Interpretation Comments Arterial Blood HCO3 (test code = 1960-4) 21 23-28 L [facility] Blood Base [id number] 21:59:00* Test Item Value Reference Range Interpretation Comments Arterial Blood Base Excess (test code = 1925-7) -2.0 -2-3 [facility] Blood Oxygen Saturation 2018-03-02 21:59:00* Test Item Value Reference Range Interpretation Comments Arterial Blood Oxygen Saturation (test code = 2708-6) 92.0 95-98 L [facility] CenterFiO22018-10-18 21:59:00* Test Item Value Reference Range Interpretation Comments FiO2 (test code = FiO2) 21 PT WAS ON RA FOR MORE THAN 30 MINS BEFORE THE ABG WAS DRAWN: 90%/84/22. ...PT PL ACED BACK ON 2L NC AFTER THE ABGCHI [facility]Ar[facility] Blood [id number] 21:59:00* Test Item Value Reference Range Interpretation Comments Arterial Blood pH (test code = 2744-1) 7.47 7.31-7.41 H [facility] CenterAr[facility] Blood Partial Pressure CO2 2018-03-02 21:59:00* Test Item Value Reference Range Interpretation Comments Arterial Blood Partial Pressure CO2 (test code = 2018-8) 29 41-51 L [facility] CenterAr[facility] Partial Pressure O2 2018-03-02 21:59:00* Test Item Value Reference Range Interpretation Comments Arterial Blood Partial Pressure O2 (test code = 2018-8) 58 80-105 L [facility] Blood [id number] 21:59:00* Test Item Value Reference Range Interpretation Comments Arterial Blood HCO3 (test code = 1960-4) 21 23-28 L [facility] Blood Base [id number] 21:59:00* Test Item Value Reference Range Interpretation Comments Arterial Blood Base Excess (test code = 1925-7) -2.0 -2-3 [facility] Blood Oxygen Saturation 2018-03-02 21:59:00* Test Item Value Reference Range Interpretation Comments Arterial Blood Oxygen Saturation (test code = 2708-6) 92.0 95-98 L [facility] CenterFiO22018-10-18 21:59:00* Test Item Value Reference Range Interpretation Comments FiO2 (test code = FiO2) 21 PT WAS ON RA FOR MORE THAN 30 MINS BEFORE THE ABG WAS DRAWN: 90%/84/22. ...[facility] [id number] 21:59:00* Test Item Value Reference Range Interpretation Comments Arterial Blood pH (test code = 2744-1) 7.47 7.31-7.41 H [facility] CenterAr[facility] Blood Partial Pressure CO2 2018-03-02 21:59:00* Test Item Value Reference Range Interpretation Comments Arterial Blood Partial Pressure CO2 (test code = 2018-12) 29 41-51 L [facility] CenterAr[facility] Blood Partial Pressure O2 2018-03-02 21:59:00* Test Item Value Reference Range Interpretation Comments Arterial Blood Partial Pressure O2 (test code = 2018-12) 58 80-105 L [facility] CenterArterselect [facility] Blood [id number] 21:59:00* Test Item Value Reference Range Interpretation Comments Arterial Blood HCO3 (test code = 1960-4) 21 23-28 L [facility] CenterAr[facility] Blood Base [id number] 21:59:00* Test Item Value Reference Range Interpretation Comments Arterial Blood Base Excess (test code = 1925-7) -2.0 -2-3 [facility] Blood Oxygen Saturation 2018-03-02 21:59:00* Test Item Value Reference Range Interpretation Comments Arterial Blood Oxygen Saturation (test code = 2708-6) 92.0 95-98 L [facility] CenterFiO22018-10-18 21:59:00* Test Item Value Reference Range Interpretation Comments FiO2 (test code = FiO2) 21 PT WAS ON RA FOR MORE THAN 30 MINS BEFORE THE ABG WAS DRAWN: 90%/84/22. ...PT PL AC[facility] 2L NC [facility] [id number] 21:59:00* Test Item Value Reference Range Interpretation Comments Arterial Blood pH (test code = 2744-1) 7.47 7.31-7.41 H [facility] CenterAr[facility] Blood Partial Pressure CO2 2018-03-02 21:59:00* Test Item Value Reference Range Interpretation Comments Arterial Blood Partial Pressure CO2 (test code = 2018-12) 29 41-51 L [facility] CenterAr[facility] Blood Partial Pressure O2 2018-03-02 21:59:00* Test Item Value Reference Range Interpretation Comments Arterial Blood Partial Pressure O2 (test code = 2018-12) 58 80-105 L [facility] CenterAr[facility] Blood [id number] 21:59:00* Test Item Value Reference Range Interpretation Comments Arterial Blood HCO3 (test code = 1960-4) 21 23-28 L [facility] CenterAr[facility] Blood Base [id number] 21:59:00* Test Item Value Reference Range Interpretation Comments Arterial Blood Base Excess (test code = 1925-7) -2.0 -2-3 [facility] Blood Oxygen Saturation 2018-03-02 21:59:00* Test Item Value Reference Range Interpretation Comments Arterial Blood Oxygen Saturation (test code = 2708-6) 92.0 95-98 L [facility] CenterFiO22018-10-18 21:59:00* Test Item Value Reference Range Interpretation Comments FiO2 (test code = FiO2) 21 PT WAS ON RA FOR MORE THAN 30 MINS BEFORE THE ABG WAS DRAWN: 90%/84/22. ...PT PL ACED BACK ON 2L NC AFTER THE ABGCHI [facility] Blood [id number] 21:59:00* Test Item Value Reference Range Interpretation Comments Arterial Blood pH (test code = 2744-1) 7.47 7.31-7.41 H [facility] CenterAr[facility] Blood Partial Pressure CO2 2018-03-02 21:59:00* Test Item Value Reference Range Interpretation Comments Arterial Blood Partial Pressure CO2 (test code = 2018-12) 29 41-51 L [facility] CenterAr[facility] Blood Partial Pressure O2 2018-03-02 21:59:00* Test Item Value Reference Range Interpretation Comments Arterial Blood Partial Pressure O2 (test code = 2018-12) 58 80-105 L [facility] CenterAr[facility] Blood [id number] 21:59:00* Test Item Value Reference Range Interpretation Comments Arterial Blood HCO3 (test code = 1960-4) 21 23-28 L [facility] CenterAr[facility] Blood Base [id number] 21:59:00* Test Item Value Reference Range Interpretation Comments Arterial Blood Base Excess (test code = 1925-7) -2.0 -2-3 [facility] Blood Oxygen Saturation 2018-03-02 21:59:00* Test Item Value Reference Range Interpretation Comments Arterial Blood Oxygen Saturation (test code = 2708-6) 92.0 95-98 L [facility] CenterFiO22018-10-18 21:59:00* Test Item Value Reference Range Interpretation Comments FiO2 (test code = FiO2) 21 PT WAS ON RA FOR MORE THAN 30 MINS BEFORE THE ABG WAS DRAWN: 90%/84/22. ...PT PL ACED BACK ON 2L NC AFTER THE ABGCHI [facility] Blood [id number] 21:59:00* Test Item Value Reference Range Interpretation Comments Arterial Blood pH (test code = 2744-1) 7.47 7.31-7.41 H [facility]Ar[facility] Blood Partial Pressure CO2 2018-03-02 21:59:00* Test Item Value Reference Range Interpretation Comments Arterial Blood Partial Pressure CO2 (test code = 2018-) 29 41-51 L [facility]Ar[facility] Blood Partial Pressure O2 2018-03-02 21:59:00* Test Item Value Reference Range Interpretation Comments Arterial Blood Partial Pressure O2 (test code = 2018-8) 58 80-105 L [facility] CenterAr[facility] Blood [id number] 21:59:00* Test Item Value Reference Range Interpretation Comments Arterial Blood HCO3 (test code = 1960-4) 21 23-28 L [facility]Ar[facility] Blood Base [id number] 21:59:00* Test Item Value Reference Range Interpretation Comments Arterial Blood Base Excess (test code = 1925-7) -2.0 -2-3 [facility]Ar[facility] Blood Oxygen Saturation 2018-03-02 21:59:00* Test Item Value Reference Range Interpretation Comments Arterial Blood Oxygen Saturation (test code = 2708-6) 92.0 95-98 L [facility] CenterFiO22018-10-18 21:59:00* Test Item Value Reference Range Interpretation Comments FiO2 (test code = FiO2) 21 PT WAS ON RA FOR MORE THAN 30 MINS BEFORE THE ABG WAS DRAWN: 90%/84/22. ...PT PL AC[facility] ON 2L NC [facility] [id number] 21:59:00* Test Item Value Reference Range Interpretation Comments Arterial Blood pH (test code = 2744-1) 7.47 7.31-7.41 H [facility] CenterAr[facility] Blood Partial Pressure CO2 2018-03-02 21:59:00* Test Item Value Reference Range Interpretation Comments Arterial Blood Partial Pressure CO2 (test code = 2018-) 29 41-51 L [facility]Ar[facility] Blood Partial Pressure O2 2018-03-02 21:59:00* Test Item Value Reference Range Interpretation Comments Arterial Blood Partial Pressure O2 (test code = 2018-12) 58 80-105 L [facility]Ar[facility] Blood [id number] 21:59:00* Test Item Value Reference Range Interpretation Comments Arterial Blood HCO3 (test code = 1960-4) 21 23-28 L [facility]Ar[facility] Blood Base [id number] 21:59:00* Test Item Value Reference Range Interpretation Comments Arterial Blood Base Excess (test code = 1925-7) -2.0 -2-3 [facility] Blood Oxygen Saturation 2018-03-02 21:59:00* Test Item Value Reference Range Interpretation Comments Arterial Blood Oxygen Saturation (test code = 2708-6) 92.0 95-98 L [facility] CenterFiO22018-10-18 21:59:00* Test Item Value Reference Range Interpretation Comments FiO2 (test code = FiO2) 21 PT WAS ON RA FOR MORE THAN 30 MINS BEFORE THE ABG WAS DRAWN: 90%/84/22. ...PT PL ACED BACK ON 2L NC AFTER [facility] [id number] 21:59:00* Test Item Value Reference Range Interpretation Comments Arterial Blood pH (test code = 2744-1) 7.47 7.31-7.41 H [facility]Ar[facility] Blood Partial Pressure CO2 2018-03-02 21:59:00* Test Item Value Reference Range Interpretation Comments Arterial Blood Partial Pressure CO2 (test code = 2018-12) 29 41-51 L [facility]Ar[facility] Blood Partial Pressure O2 2018-03-02 21:59:00* Test Item Value Reference Range Interpretation Comments Arterial Blood Partial Pressure O2 (test code = 2018-12) 58 80-105 L [facility] CenterAr[facility] Blood [id number] 21:59:00* Test Item Value Reference Range Interpretation Comments Arterial Blood HCO3 (test code = 1960-4) 21 23-28 L [facility] Blood Base [id number] 21:59:00* Test Item Value Reference Range Interpretation Comments Arterial Blood Base Excess (test code = 1925-7) -2.0 -2-3 [facility] Oxygen Saturation 2018-03-02 21:59:00* Test Item Value Reference Range Interpretation Comments Arterial Blood Oxygen Saturation (test code = 2708-6) 92.0 95-98 L [facility] CenterFiO22018-10-18 21:59:00* Test Item Value Reference Range Interpretation Comments FiO2 (test code = FiO2) 21 PT WAS ON RA FOR MORE THAN 30 MINS BEFORE THE ABG WAS DRAWN: 90%/84/22. ...PT PL ACED BACK ON 2L NC AFTER THE ABGCHI [facility] [id number] 21:59:00* Test Item Value Reference Range Interpretation Comments Arterial Blood pH (test code = 2744-1) 7.47 7.31-7.41 H [facility] CenterAr[facility] Blood Partial Pressure CO2 2018-03-02 21:59:00* Test Item Value Reference Range Interpretation Comments Arterial Blood Partial Pressure CO2 (test code = 2018-12) 29 41-51 L [facility]Ar[facility] Blood Partial Pressure O2 2018-03-02 21:59:00* Test Item Value Reference Range Interpretation Comments Arterial Blood Partial Pressure O2 (test code = 2019-8) 58 80-105 L [facility] CenterAr[facility] Blood [id number] 21:59:00* Test Item Value Reference Range Interpretation Comments Arterial Blood HCO3 (test code = 1960-4) 21 23-28 L [facility] CenterAr[facility] Blood Base [id number] 21:59:00* Test Item Value Reference Range Interpretation Comments Arterial Blood Base Excess (test code = 1925-7) -2.0 -2-3 [facility] Blood Oxygen Saturation 2018-03-02 21:59:00* Test Item Value Reference Range Interpretation Comments Arterial Blood Oxygen Saturation (test code = 2708-6) 92.0 95-98 L [facility] CenterFiO22018-10-18 21:59:00* Test Item Value Reference Range Interpretation Comments FiO2 (test code = FiO2) 21 PT WAS ON RA FOR MORE THAN 30 MINS BEFORE THE ABG WAS DRAWN: 90%/84/22. ...PT PL ACED BACK ON 2L NC AFTER THE ABGCHI [facility] Nat[facility]tic [id number] 19:07:00* Test Item Value Reference Range Interpretation Comments B-Type Natriuretic Peptide (test code = 32913-0) 97.8 0-100 [facility] Natri[facility]tic [id number] 19:07:00* Test Item Value Reference Range Interpretation Comments B-Type Natriuretic Peptide (test code = 21106-4) 97.8 0-100 [facility] Nat[facility]tic Befzamx4008-10-21 19:07:00* Test Item Value Reference Range Interpretation Comments B-Type Natriuretic Peptide (test code = 51229-9) 97.8 0-100 [facility] CenterB[facility] Natri[facility]tic Hrmtpkh6060-86-25 19:07:00* Test Item Value Reference Range Interpretation Comments B-Type Natriuretic Peptide (test code = 53177-9) 97.8 0-100 [facility] CenterB[facility] Natri[facility]tic Lrjofdr1001-93-69 19:07:00* Test Item Value Reference Range Interpretation Comments B-Type Natriuretic Peptide (test code = 76433-4) 97.8 0-100 [facility] Center[facility] Nat[facility]tic [id number] 19:07:00* Test Item Value Reference Range Interpretation Comments B-Type Natriuretic Peptide (test code = 29242-6) 97.8 0-100 [facility] Center[facility] Natri[facility]tic Lttdgnv6203-84-05 19:07:00* Test Item Value Reference Range Interpretation Comments B-Type Natriuretic Peptide (test code = 65950-4) 97.8 0-100 [facility] CenterCHEST SINGLE (PORTABLE)2018-03-02 19:06:00 [facility] [address] [place] [address] Patient Name: TEDDY LESTER MR #: [id number] : 1945 Age/Sex: 73/M Req #: [id number] Adm Physician: Ordered by: DORY CLOUD MD Report #: [id number] Location: ER Room/Bed: Procedure: [id number] DX/CHEST SINGLE (PORTABLE) Exam Date: 03/02/18 Exam Time: 1857 REPORT STATUS: Signed EXAMINATION: CHEST SINGLE (PORTABLE) INDICATION: Left upper chest pain today. CHEST PAIN [id number] Y COMPARISON: Chest radio graph 11/21/2017, chest CT 11/21/2017 FINDINGS: AP view TUBES and LINES: None. LUNGS: Lungs are well inflated. Lungs are clear. There is no evidence of pneumonia or pulmonary edema. PLEURA: No pleural effusion or pneumothorax. HEART AND MEDIASTINUM: The cardiomediastinal silhouette is unremarkable. BONES AND SOFT TISSUES: No acute osseous lesion. T4- T6, T8-T9 compression deformities better seen on CT 11/21/2017 given lack of la teral view. Vertebroplasty changes at T11. Median sternotomy wires. Soft tissu es are unremarkable. UPPER ABDOMEN: No free air under the diaphragm. IMPRESSION: No acute thoracic abnormality. Signed by: DR. Sarah Beth Jose MD on 03/02/2018 7:09 PM Dictated By: JAMEL JOSE MD Electron ically Signed By: JAMEL JOSE MD on 03/02/181908 Transcribed By: ERICH on 03/02/181908 COPY TO: DORY CLOUD MD CT ABDOMEN/PELVIS W 2018-02-12 21:30:00 [place] [address] Patient Name: TEDDY LESTER MR #: [id number] : 1945 Age/Sex: 73/M Req #: [id number] Adm Physician: Ordered by: YVETTE HERMAN MD Report #: [id number] Location: ER Room/Bed: Procedure: [id number] CT/CT ABDOMEN/PELVIS W Exam Date: 02/12/18 Exam Devon e: 2119 REPORT STATUS: Signed ADDENDUM #1 Addendum: Healing nondisplaced fracture ante rolateral left eighth rib seen on series 2 image 23. Findings discussed w glenn Del Rosario at 3:00 PM 03/03/2018. Signed by: Dr. Gregorio Gamboa M.D. on 03/03/2018 3:00 PM ORIGINAL REPORT EXAM: CT ABDOMEN/PEL VIS W DATE: 02/12/2018 5:40 PM INDICATION: LOW ABD PAIN R/ DIVERTICULITIS COMPARISON: 11/21/2017 TECHNIQUE: The abdomen and pelvis were scanned using a multidetector helical scanner. Coronal and sagittal reformations were obtained . CT low dose techniques were utilized, as applicable. IV Contrast: 100 ml Isovue 300/370 FINDINGS: LOWER THORAX: Bibasilar scarring. Stable mild l oculated right pericardial fluid. Prior median sternotomy. LIVER/BILIARY: No masses. No ductal dilatation. GALLBLADDER: Cholecystectomy. SPLEEN: Unremarkable PANCREAS: Unremarkable ADRENALS: No nodules KIDNEYS: Stab le bilateral renal cysts and too small to characterize hypodensities, the larg est 4.3 cm of the left interpolar region. No hydronephrosis. GI TRACT: No wall thickening or evidence of obstruction. Diverticulosis. No evidence of appendicitis. VESSELS: Diffuse atherosclerotic changes with again severe p roximal SMA narrowing. PERITONEUM/RETROPERITONEUM: No free air or fluid LY MPH NODES: No lymphadenopathy REPRODUCTIVE ORGANS/BLADDER: Increased bladde r distention with again mild circumferential bladder, nonspecific. SOFT T ISSUES: Small fat-containing inguinal hernias. BONES: Diffusely decreased bone mineralization with multilevel degenerative changes, vertebroplasty from T11 to L4, and height loss of the spine, and right SI joint fixation. IMPRESS ION: 1. No new or acute abnormality. Specifically, no evidence of diverticulit is. 2. 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 3. Persistent nonspecific circumferential bladder wall thickenin g. Signed by: Dr Hunter Del Rosario MD on 02/12/2018 9:58 PM Dictated By: HUNTER DEL ROSARIO MD 15 00 Transcribed By: ERICH on 02/12/18 542 COPY TO: YVETTE HERMAN MD Sodium [id number] 18:59:00* Test Item Value Reference Range Interpretation Comments Sodium Level (test code = 2951-2) 139 136-145 [facility] CenterPotassium Lxqzw9363-39-77 18:59:00* Test Item Value Reference Range Interpretation Comments Potassium Level (test code = 2823-3) 4.3 3.5-5.1 [facility] CenterChloride Ecgno5596-43-18 18:59:00* Test Item Value Reference Range Interpretation Comments Chloride Level (test code = 2075-0) 106 98-107 [facility] CenterCarbon Dioxide [id number] 18:59:00* Test Item Value Reference Range Interpretation Comments Carbon Dioxide Level (test code = 2028-9) 20 22-29 L [facility] CenterAnion [id number] 18:59:00* Test Item Value Reference Range Interpretation Comments Anion Gap (test code = 27058-6) 17.3 8-16 H [facility] CenterBlood Urea Qpdurjbv7484-81-69 18:59:00* Test Item Value Reference Range Interpretation Comments Blood Urea Nitrogen (test code = 3094-0) 14 7-26 [facility] CenterCreatinine2018-09-30 18:59:00* Test Item Value Reference Range Interpretation Comments Creatinine (test code = 2160-0) 1.36 0.72-1.25 H [facility] CenterBUN/Creatinine Qcfab2607-21-13 18:59:00* Test Item Value Reference Range Interpretation Comments BUN/Creatinine Ratio (test code = 3097-3) 10 6-25 [facility] CenterEstimat Glomerular Filtration Rate 2018-02-12 18:59:00* Test Item Value Reference Range Interpretation Comments Estimat Glomerular Filtration Rate (test code = 904016379) 52 >60 L Ranges were taken from the National Kidney Disease Education Program and the [facility] Kid[facility] Foundation literature.Reference ranges:60 or greater: Uutfok85-77 ( for 3 consecutive months): Chronic kidney disease 15 or less: Kidney failureLas Palmas Medical CenterGlucose Pddvy4317-22-98 18:59:00* Test Item Value Reference Range Interpretation Comments Glucose Level (test code = JDQ9545) 86 74-118 [facility] CenterCalcium Smgyw8895-25-29 18:59:00* Test Item Value Reference Range Interpretation Comments Calcium Level (test code = 29806-4) 10.1 8.4-10.2 [facility] CenterTotal Whtgayxkl5764-65-62 18:59:00* Test Item Value Reference Range Interpretation Comments Total Bilirubin (test code = 1975-2) 0.8 0.2-1.2 [facility] CenterAspartate Amino Transf (AST/SGOT) 2018-02-12 18:59:00* Test Item Value Reference Range Interpretation Comments Aspartate Amino Transf (AST/SGOT) (test code = Aspartate Amino Transf (AST/SGOT)) 17 5-34 [facility] CenterAlanine Aminotransferase (ALT/SGPT) 2018-02-12 18:59:00* Test Item Value Reference Range Interpretation Comments Alanine Aminotransferase (ALT/SGPT) (test code = 1742-6) 10 0-55 [facility] CenterTotal Hpczhay8651-78-40 18:59:00* Test Item Value Reference Range Interpretation Comments Total Protein (test code = 2885-2) 8.4 6.5-8.1 H [facility] CenterAlbumin2018-09-30 18:59:00* Test Item Value Reference Range Interpretation Comments Albumin (test code = 1751-7) 4.0 3.5-5.0 [facility] CenterGlobulin2018-09-30 18:59:00* Test Item Value Reference Range Interpretation Comments Globulin (test code = 92271-7) 4.4 2.3-3.5 H [facility] CenterAlbumin/Globulin [id number] 18:59:00 * Test Item Value Reference Range Interpretation Comments Albumin/Globulin Ratio (test code = 1759-0) 0.9 0.8-2.0 [facility] CenterAlkaline Duwzlyiywiz0397-37-77 18:59:00* Test Item Value Reference Range Interpretation Comments Alkaline Phosphatase (test code = 6768-6) 137 40-150 [facility] CenterAmylase Qchqg9177-98-00 18:59:00* Test Item Value Reference Range Interpretation Comments Amylase Level (test code = 1798-8) 40 25-125 [facility] CenterLipase2018-09-30 18:59:00* Test Item Value Reference Range Interpretation Comments Lipase (test code = 3040-3) 5 8-78 L [facility] CenterProthrombin Rnma4734-65-80 18:53:00* Test Item Value Reference Range Interpretation Comments Prothrombin Time (test code = 5902-2) 15.2 11.9-14.5 H [facility] CenterProthromb Time International Ratio 2018-02-12 18:53:00* Test Item Value Reference Range Interpretation Comments Prothromb Time International Ratio (test code = 6301-6) 1.10 Oral Anticoagulant Therapy INR Values:1. Low Intensity Therapy 1.5 - 2.02 . Moderate Intensity Therapy 2.0 - 3.03. High Intensity Therapy(1) 2.5 - 3. 54. High Intensity Therapy(2) 3.0 - 4.05. Panic Value INR > 5.0 [facility] CenterActivated Partial Thromboplast Time 2018-02-12 18:53:00* Test Item Value Reference Range Interpretation Comments Activated Partial Thromboplast Time (test code = 78679-5) 30.5 23.8-35.5 [facility] CenterUrine [id number] 18:52:00* Test Item Value Reference Range Interpretation Comments Urine WBC (test code = 5821-4) 0-5 0-5 [facility] CenterU[facility] IKU5036-05-15 18:52:00* Test Item Value Reference Range Interpretation Comments Urine RBC (test code = 06361-1) 0-5 0-5 [facility] CenterU[facility] Rmiigjmz6907-01-58 18:52:00* Test Item Value Reference Range Interpretation Comments Urine Bacteria (test code = 20243-9) NONE NONE [facility] CenterU[facility] Epithelial Sayym9074-16-81 18:52:00 * Test Item Value Reference Range Interpretation Comments Urine Epithelial Cells (test code = 42061-3) RARE NONE [facility] CenterU[facility] Tufku5558-48-78 18:45:00* Test Item Value Reference Range Interpretation Comments Urine Color (test code = 5778-6) YELLOW YELLOW [facility] CenterU[facility] Ldmakyo1906-60-30 18:45:00* Test Item Value Reference Range Interpretation Comments Urine Clarity (test code = 66055-9) CLEAR CLEAR [facility] CenterU[facility] Specific Kcjhntw4700-66-31 18:45:00 * Test Item Value Reference Range Interpretation Comments Urine Specific [place] (test code = 5811-5) 1.010 1.010-1.02 5 [facility] CenterU[facility] [id number] 18:45:00* Test Item Value Reference Range Interpretation Comments Urine pH (test code = 99353-8) 6 5-7 [facility] CenterU[facility] Leukocyte Hehodhpm1480-28-55 18:45:00* Test Item Value Reference Range Interpretation Comments Urine Leukocyte Esterase (test code = 5799-2) NEGATIVE NEGATIVE [facility] Nsbbimb4702-67-19 18:45:00* Test Item Value Reference Range Interpretation Comments Urine Nitrite (test code = 86244-2) NEGATIVE NEGATIVE [facility] Vpbolyf2049-89-71 18:45:00* Test Item Value Reference Range Interpretation Comments Urine Protein (test code = 5804-0) NEGATIVE NEGATIVE [facility] Glucose (UA)2018-02-12 18:45:00* Test Item Value Reference Range Interpretation Comments Urine Glucose (UA) (test code = 2349-9) NEGATIVE NEGATIVE [facility] Ysqskmz0523-96-49 18:45:00* Test Item Value Reference Range Interpretation Comments Urine Ketones (test code = 97223-2) NEGATIVE NEGATIVE [facility] Jydhodezeeja0477-41-83 18:45:00* Test Item Value Reference Range Interpretation Comments Urine Urobilinogen (test code = 95815-6) 0.2 0.2-1 [facility] CenterU[facility] Esfmeonsb2187-73-97 18:45:00* Test Item Value Reference Range Interpretation Comments Urine Bilirubin (test code = 1978-6) NEGATIVE NEGATIVE [facility] Fmtho7368-20-47 18:45:00* Test Item Value Reference Range Interpretation Comments Urine Blood (test code = 27344-8) NEGATIVE NEGATIVE [facility] CenterWhite Blood Ykmkl9251-31-46 18:43:00* Test Item Value Reference Range Interpretation Comments White Blood Count (test code = 6690-2) 6.83 4.8-10.8 [facility] CenterRed Blood Yjldu1024-82-25 18:43:00* Test Item Value Reference Range Interpretation Comments Red Blood Count (test code = 789-8) 4.63 4.3-5.7 [facility] CenterHemoglobin2018-09-30 18:43:00* Test Item Value Reference Range Interpretation Comments Hemoglobin (test code = 55486-2) 14.2 14.0-18.0 [facility] CenterHematocrit2018-09-30 18:43:00* Test Item Value Reference Range Interpretation Comments Hematocrit (test code = 4544-3) 41.6 38.2-49.6 [facility] CenterMean Corpuscular Intlei0059-45-21 18:43:00* Test Item Value Reference Range Interpretation Comments Mean Corpuscular Volume (test code = 787-2) 89.8 81-99 [facility] CenterMean Corpuscular Udhjhplzbr6860-29-59 18:43:00* Test Item Value Reference Range Interpretation Comments Mean Corpuscular Hemoglobin (test code = 785-6) 30.7 28-32 [facility] CenterMean Corpuscular Hemoglobin Concent 2018-02-12 18:43:00* Test Item Value Reference Range Interpretation Comments Mean Corpuscular Hemoglobin Concent (test code = 786-4) 34.1 31-35 [facility] CenterRed Cell Distribution Rrnud5131-05-86 18:43:00* Test Item Value Reference Range Interpretation Comments Red Cell Distribution Width (test code = 74974-7) 15.9 11.7 -14.4 H [facility] CenterPlatelet Ljskc9612-83-79 18:43:00* Test Item Value Reference Range Interpretation Comments Platelet Count (test code = 777-3) 259 140-360 [facility] CenterNeutrophils (%) (Auto)2018-02-12 18:43:00 * Test Item Value Reference Range Interpretation Comments Neutrophils (%) (Auto) (test code = 07601-7) 67.3 38.7-80.0 [facility] CenterLymphocytes (%) (Auto)2018-02-12 18:43:00 * Test Item Value Reference Range Interpretation Comments Lymphocytes (%) (Auto) (test code = 736-9) 19.0 18.0-39.1 [facility] CenterMonocytes (%) (Auto)2018-02-12 18:43:00* Test Item Value Reference Range Interpretation Comments Monocytes (%) (Auto) (test code = 5905-5) 11.4 4.4-11.3 H [facility] CenterEosinophils (%) (Auto)2018-02-12 18:43:00 * Test Item Value Reference Range Interpretation Comments Eosinophils (%) (Auto) (test code = 713-8) 1.0 0.0-6.0 [facility] CenterBasophils (%) (Auto)2018-02-12 18:43:00* Test Item Value Reference Range Interpretation Comments Basophils (%) (Auto) (test code = 706-2) 0.4 0.0-1.0 [facility] CenterIM GRANULOCYTES %2018-02-12 18:43:00* Test Item Value Reference Range Interpretation Comments IM GRANULOCYTES % (test code = IM GRANULOCYTES %) 0.9 0.0- 1.0 [facility] CenterNeutrophils # (Auto)2018-02-12 18:43:00* Test Item Value Reference Range Interpretation Comments Neutrophils # (Auto) (test code = 751-8) 4.6 2.1-6.9 [facility] CenterLymphocytes # (Auto)2018-02-12 18:43:00* Test Item Value Reference Range Interpretation Comments Lymphocytes # (Auto) (test code = 09876-5) 1.3 1.0-3.2 [facility] CenterMonocytes # (Auto)2018-02-12 18:43:00* Test Item Value Reference Range Interpretation Comments Monocytes # (Auto) (test code = 742-7) 0.8 0.2-0.8 [facility] CenterEosinophils # (Auto)2018-02-12 18:43:00* Test Item Value Reference Range Interpretation Comments Eosinophils # (Auto) (test code = 711-2) 0.1 0.0-0.4 [facility] CenterBasophils # (Auto)2018-02-12 18:43:00* Test Item Value Reference Range Interpretation Comments Basophils # (Auto) (test code = 704-7) 0.0 0.0-0.1 [facility] CenterAbsolute Immature Granulocyte (auto 2018-02-12 18:43:00* Test Item Value Reference Range Interpretation Comments Absolute Immature Granulocyte (auto (savanah t code = Absolute Immature Granulocyte (auto) 0.06 0-0.1 [facility] Scvhd8593-19-46 06:06:00* Test Item Value Reference Range Interpretation Comments Sodium Level (test code = 2951-2) 139 136-145 [facility] CenterPotassium Mcrhu1427-61-21 06:06:00* Test Item Value Reference Range Interpretation Comments Potassium Level (test code = 2823-3) 4.0 3.5-5.1 [facility] CenterChloride Icrow7152-97-40 06:06:00* Test Item Value Reference Range Interpretation Comments Chloride Level (test code = 2075-0) 106 98-107 [facility] CenterCarbon Dioxide Ewffl2401-91-01 06:06:00* Test Item Value Reference Range Interpretation Comments Carbon Dioxide Level (test code = 2028-9) 25 22-29 [facility] CenterAnion Jnj5188-37-45 06:06:00* Test Item Value Reference Range Interpretation Comments Anion Gap (test code = 69371-6) 12.0 8-16 [facility] CenterBlood Urea Vebymzjx0503-93-55 06:06:00* Test Item Value Reference Range Interpretation Comments Blood Urea Nitrogen (test code = 3094-0) 17 7-26 [facility] CenterCreatinine2018-07-16 06:06:00* Test Item Value Reference Range Interpretation Comments Creatinine (test code = 2160-0) 1.06 0.72-1.25 [facility] CenterBUN/Creatinine Eovux2171-01-64 06:06:00* Test Item Value Reference Range Interpretation Comments BUN/Creatinine Ratio (test code = 3097-3) 16 6-25 [facility] CenterEstimat Glomerular Filtration Rate 2017-11-28 06:06:00* Test Item Value Reference Range Interpretation Comments Estimat Glomerular Filtration Rate (test code = 13037-7) 60- >60 Ranges were taken from the National Kidney Disease Education Program and the [facility] Foundation literature.Reference ranges:60 or greater: Wmyepu13-06 ( for 3 consecutive months): Chronic kidney disease 15 or less: Kidney failureLas Palmas Medical CenterGlucose Kqffr1042-56-91 06:06:00* Test Item Value Reference Range Interpretation Comments Glucose Level (test code = WKO5505) 98 74-118 [facility] CenterCalcium Xnojb1702-17-73 06:06:00* Test Item Value Reference Range Interpretation Comments Calcium Level (test code = 53437-7) 9.1 8.4-10.2 [facility] Hospitalodium Qrpgs7766-80-07 06:06:00* Test Item Value Reference Range Interpretation Comments Sodium Level (test code = 2951-2) 139 136-145 [facility] CenterPotassium Kfuev5251-55-44 06:06:00* Test Item Value Reference Range Interpretation Comments Potassium Level (test code = 2823-3) 4.0 3.5-5.1 [facility] CenterChloride Latem8916-96-64 06:06:00* Test Item Value Reference Range Interpretation Comments Chloride Level (test code = 2075-0) 106 98-107 [facility] CenterCarbon Dioxide Cxljr0132-23-59 06:06:00* Test Item Value Reference Range Interpretation Comments Carbon Dioxide Level (test code = 2028-9) 25 22-29 [facility] CenterAnion Ewr0512-72-94 06:06:00* Test Item Value Reference Range Interpretation Comments Anion Gap (test code = 07608-1) 12.0 8-16 [facility] CenterBlood Urea Kcyhvcqb6675-30-11 06:06:00* Test Item Value Reference Range Interpretation Comments Blood Urea Nitrogen (test code = 3094-0) 17 7-26 [facility] CenterCreatinine2018-07-16 06:06:00* Test Item Value Reference Range Interpretation Comments Creatinine (test code = 2160-0) 1.06 0.72-1.25 [facility] CenterBUN/Creatinine Sqlqm8583-43-34 06:06:00* Test Item Value Reference Range Interpretation Comments BUN/Creatinine Ratio (test code = 3097-3) 16 - [facility] CenterEstimat Glomerular Filtration Rate 2017-11-28 06:06:00* Test Item Value Reference Range Interpretation Comments Estimat Glomerular Filtration Rate (test code = 85133-1) 60- >60 Ranges were taken from the National Kidney Disease Education Program and the [facility] Kidney Foundation literature.Reference ranges:60 or greater: Efgppy34-85 ( for 3 consecutive months): Chronic kidney disease 15 or less: Kidney failureLas [facility]mas Medical CenterGlucose Wmpff4437-48-52 06:06:00* Test Item Value Reference Range Interpretation Comments Glucose Level (test code = RXT5801) 98 74-118 [facility] CenterCalcium Mvufv0882-19-11 06:06:00* Test Item Value Reference Range Interpretation Comments Calcium Level (test code = 22786-6) 9.1 8.4-10.2 [facility] CenterProthrombin Uglf2350-79-86 06:03:00* Test Item Value Reference Range Interpretation Comments Prothrombin Time (test code = 5902-2) 16.5 11.9-14.5 H [facility] CenterProthromb Time International Ratio 2017-11-28 06:03:00* Test Item Value Reference Range Interpretation Comments Prothromb Time International Ratio (test code = 6301-6) 1.44 Oral Anticoagulant Therapy INR Values:1. Low Intensity Therapy 1.5 - 2.02 . Moderate Intensity Therapy 2.0 - 3.03. High Intensity Therapy(1) 2.5 - 3. 54. High Intensity Therapy(2) 3.0 - 4.05. Panic Value INR > 5.0 [facility] CenterProthrombin Axpv4803-44-68 06:03:00* Test Item Value Reference Range Interpretation Comments Prothrombin Time (test code = 5902-2) 16.5 11.9-14.5 H [facility] CenterProthromb Time International Ratio 2017-11-28 06:03:00* Test Item Value Reference Range Interpretation Comments Prothromb Time International Ratio (test code = 6301-6) 1.44 Oral Anticoagulant Therapy INR Values:1. Low Intensity Therapy 1.5 - 2.02 . Moderate Intensity Therapy 2.0 - 3.03. High Intensity Therapy(1) 2.5 - 3. 54. High Intensity Therapy(2) 3.0 - 4.05. Panic Value INR > 5.0 [facility] CenterWhite Blood Jybwj1217-02-43 05:44:00* Test Item Value Reference Range Interpretation Comments White Blood Count (test code = 6690-2) 4.80 4.8-10.8 [facility] CenterRed Blood Fkuxk9716-91-50 05:44:00* Test Item Value Reference Range Interpretation Comments Red Blood Count (test code = 789-8) 4.33 4.3-5.7 [facility] CenterHemoglobin2018-07-16 05:44:00* Test Item Value Reference Range Interpretation Comments Hemoglobin (test code = 45199-6) 12.8 14.0-18.0 L [facility] CenterHematocrit2018-07-16 05:44:00* Test Item Value Reference Range Interpretation Comments Hematocrit (test code = 4544-3) 38.9 38.2-49.6 [facility] CenterMean Corpuscular Setnra2832-45-76 05:44:00* Test Item Value Reference Range Interpretation Comments Mean Corpuscular Volume (test code = 787-2) 89.8 81-99 [facility] CenterMean Corpuscular Ycudzdaiva6611-80-45 05:44:00* Test Item Value Reference Range Interpretation Comments Mean Corpuscular Hemoglobin (test code = 785-6) 29.6 28-32 [facility] Corpuscular Hemoglobin Concent 2017-11-28 05:44:00* Test Item Value Reference Range Interpretation Comments Mean Corpuscular Hemoglobin Concent (test code = 786-4) 32.9 31-35 [facility] CenterRed Cell Distribution Vqsnq8277-20-62 05:44:00* Test Item Value Reference Range Interpretation Comments Red Cell Distribution Width (test code = 95141-6) 16.2 11.7 -14.4 H [facility] CenterPlatelet Yiglz8474-43-80 05:44:00* Test Item Value Reference Range Interpretation Comments Platelet Count (test code = 777-3) 203 140-360 [facility] CenterNeutrophils (%) (Auto)2017-11-28 05:44:00 * Test Item Value Reference Range Interpretation Comments Neutrophils (%) (Auto) (test code = 48428-1) 63.6 38.7-80.0 [facility] CenterLymphocytes (%) (Auto)2017-11-28 05:44:00 * Test Item Value Reference Range Interpretation Comments Lymphocytes (%) (Auto) (test code = 736-9) 22.1 18.0-39.1 [facility] CenterMonocytes (%) (Auto)2017-11-28 05:44:00* Test Item Value Reference Range Interpretation Comments Monocytes (%) (Auto) (test code = 5905-5) 11.0 4.4-11.3 [facility] CenterEosinophils (%) (Auto)2017-11-28 05:44:00 * Test Item Value Reference Range Interpretation Comments Eosinophils (%) (Auto) (test code = 713-8) 2.1 0.0-6.0 [facility] CenterBasophils (%) (Auto)2017-11-28 05:44:00* Test Item Value Reference Range Interpretation Comments Basophils (%) (Auto) (test code = 706-2) 0.6 0.0-1.0 [facility] CenterIM GRANULOCYTES %2017-11-28 05:44:00* Test Item Value Reference Range Interpretation Comments IM GRANULOCYTES % (test code = IM GRANULOCYTES %) 0.6 0.0- 1.0 [facility] CenterNeutrophils # (Auto)2017-11-28 05:44:00* Test Item Value Reference Range Interpretation Comments Neutrophils # (Auto) (test code = 751-8) 3.1 2.1-6.9 [facility] CenterLymphocytes # (Auto)2017-11-28 05:44:00* Test Item Value Reference Range Interpretation Comments Lymphocytes # (Auto) (test code = 43734-4) 1.1 1.0-3.2 [facility] CenterMonocytes # (Auto)2017-11-28 05:44:00* Test Item Value Reference Range Interpretation Comments Monocytes # (Auto) (test code = 742-7) 0.5 0.2-0.8 [facility] CenterEosinophils # (Auto)2017-11-28 05:44:00* Test Item Value Reference Range Interpretation Comments Eosinophils # (Auto) (test code = 711-2) 0.1 0.0-0.4 [facility] CenterBasophils # (Auto)2017-11-28 05:44:00* Test Item Value Reference Range Interpretation Comments Basophils # (Auto) (test code = 704-7) 0.0 0.0-0.1 [facility] CenterAbsolute Immature Granulocyte (auto 2017-11-28 05:44:00* Test Item Value Reference Range Interpretation Comments Absolute Immature Granulocyte (auto (savanah t code = Absolute Immature Granulocyte (auto) 0.03 0-0.1 [facility] CenterWhite Blood Onvco9532-58-03 05:44:00* Test Item Value Reference Range Interpretation Comments White Blood Count (test code = 6690-2) 4.80 4.8-10.8 [facility] CenterRed Blood Gtsio6384-17-63 05:44:00* Test Item Value Reference Range Interpretation Comments Red Blood Count (test code = 789-8) 4.33 4.3-5.7 [facility] CenterHemoglobin2018-07-16 05:44:00* Test Item Value Reference Range Interpretation Comments Hemoglobin (test code = 11006-2) 12.8 14.0-18.0 L [facility] CenterHematocrit2018-07-16 05:44:00* Test Item Value Reference Range Interpretation Comments Hematocrit (test code = 4544-3) 38.9 38.2-49.6 [facility] CenterMean Corpuscular Tvtaix4544-98-86 05:44:00* Test Item Value Reference Range Interpretation Comments Mean Corpuscular Volume (test code = 787-2) 89.8 81-99 [facility] CenterMean Corpuscular Kemyurinkx6008-63-04 05:44:00* Test Item Value Reference Range Interpretation Comments Mean Corpuscular Hemoglobin (test code = 785-6) 29.6 28-32 [facility] Hem[facility] Concent 2017-11-28 05:44:00* Test Item Value Reference Range Interpretation Comments Mean Corpuscular Hemoglobin Concent (test code = 786-4) 32.9 31-35 [facility] CenterRed Cell Distribution Ybmxn0714-17-48 05:44:00* Test Item Value Reference Range Interpretation Comments Red Cell Distribution Width (test code = 69665-0) 16.2 11.7 -14.4 H [facility] CenterPlatelet Bhxil7803-94-50 05:44:00* Test Item Value Reference Range Interpretation Comments Platelet Count (test code = 777-3) 203 140-360 [facility] CenterNeutrophils (%) (Auto)2017-11-28 05:44:00 * Test Item Value Reference Range Interpretation Comments Neutrophils (%) (Auto) (test code = 10342-3) 63.6 38.7-80.0 [facility] CenterLymphocytes (%) (Auto)2017-11-28 05:44:00 * Test Item Value Reference Range Interpretation Comments Lymphocytes (%) (Auto) (test code = 736-9) 22.1 18.0-39.1 [facility] CenterMonocytes (%) (Auto)2017-11-28 05:44:00* Test Item Value Reference Range Interpretation Comments Monocytes (%) (Auto) (test code = 5905-5) 11.0 4.4-11.3 [facility] CenterEosinophils (%) (Auto)2017-11-28 05:44:00 * Test Item Value Reference Range Interpretation Comments Eosinophils (%) (Auto) (test code = 713-8) 2.1 0.0-6.0 [facility] CenterBasophils (%) (Auto)2017-11-28 05:44:00* Test Item Value Reference Range Interpretation Comments Basophils (%) (Auto) (test code = 706-2) 0.6 0.0-1.0 [facility] CenterIM GRANULOCYTES %2017-11-28 05:44:00* Test Item Value Reference Range Interpretation Comments IM GRANULOCYTES % (test code = IM GRANULOCYTES %) 0.6 0.0- 1.0 [facility] CenterNeutrophils # (Auto)2017-11-28 05:44:00* Test Item Value Reference Range Interpretation Comments Neutrophils # (Auto) (test code = 751-8) 3.1 2.1-6.9 [facility] CenterLymphocytes # (Auto)2017-11-28 05:44:00* Test Item Value Reference Range Interpretation Comments Lymphocytes # (Auto) (test code = 06083-5) 1.1 1.0-3.2 [facility] CenterMonocytes # (Auto)2017-11-28 05:44:00* Test Item Value Reference Range Interpretation Comments Monocytes # (Auto) (test code = 742-7) 0.5 0.2-0.8 [facility] CenterEosinophils # (Auto)2017-11-28 05:44:00* Test Item Value Reference Range Interpretation Comments Eosinophils # (Auto) (test code = 711-2) 0.1 0.0-0.4 [facility] CenterBasophils # (Auto)2017-11-28 05:44:00* Test Item Value Reference Range Interpretation Comments Basophils # (Auto) (test code = 704-7) 0.0 0.0-0.1 [facility] CenterAbsolute Immature Granulocyte (auto 2017-11-28 05:44:00* Test Item Value Reference Range Interpretation Comments Absolute Immature Granulocyte (auto (savanah t code = Absolute Immature Granulocyte (auto) 0.03 0-0.1 [facility] Kvgwnfptt0987-44-29 06:08:00* Test Item Value Reference Range Interpretation Comments Total Bilirubin (test code = 1975-2) 0.7 0.2-1.2 [facility] CenterAspartate Amino Transf (AST/SGOT) 2017-11-23 06:08:00* Test Item Value Reference Range Interpretation Comments Aspartate Amino Transf (AST/SGOT) (test code = Aspartate Amino Transf (AST/SGOT)) 27 5-34 [facility] CenterAlanine Aminotransferase (ALT/SGPT) 2017-11-23 06:08:00* Test Item Value Reference Range Interpretation Comments Alanine Aminotransferase (ALT/SGPT) (test code = 1742-6) 25 0-55 [facility] Cjjswbx0497-41-43 06:08:00* Test Item Value Reference Range Interpretation Comments Total Protein (test code = 2885-2) 7.2 6.5-8.1 [facility] CenterAlbumin2018-07-11 06:08:00* Test Item Value Reference Range Interpretation Comments Albumin (test code = 1751-7) 3.5 3.5-5.0 [facility] CenterGlobulin2018-07-11 06:08:00* Test Item Value Reference Range Interpretation Comments Globulin (test code = 09585-5) 3.7 2.3-3.5 H [facility] CenterAlbumin/Globulin Rzmfm6649-65-19 06:08:00 * Test Item Value Reference Range Interpretation Comments Albumin/Globulin Ratio (test code = 1759-0) 0.9 0.8-2.0 [facility] CenterAlkaline Wcfszapirpa8413-75-77 06:08:00* Test Item Value Reference Range Interpretation Comments Alkaline Phosphatase (test code = 6768-6) 102 40-150 [facility] Yzinvzwgy5740-79-12 06:08:00* Test Item Value Reference Range Interpretation Comments Total Bilirubin (test code = 1975-2) 0.7 0.2-1.2 [facility] CenterAspartate Amino Transf (AST/SGOT) 2017-11-23 06:08:00* Test Item Value Reference Range Interpretation Comments Aspartate Amino Transf (AST/SGOT) (test code = Aspartate Amino Transf (AST/SGOT)) 27 5-34 [facility] CenterAlanine Aminotransferase (ALT/SGPT) 2017-11-23 06:08:00* Test Item Value Reference Range Interpretation Comments Alanine Aminotransferase (ALT/SGPT) (test code = 1742-6) 25 0-55 [facility] CenterTotal Mkvjdpl5627-28-26 06:08:00* Test Item Value Reference Range Interpretation Comments Total Protein (test code = 2885-2) 7.2 6.5-8.1 [facility] CenterAlbumin2018-07-11 06:08:00* Test Item Value Reference Range Interpretation Comments Albumin (test code = 1751-7) 3.5 3.5-5.0 [facility] CenterGlobulin2018-07-11 06:08:00* Test Item Value Reference Range Interpretation Comments Globulin (test code = 73386-3) 3.7 2.3-3.5 H [facility] CenterAlbumin/Globulin Agyez0899-83-53 06:08:00 * Test Item Value Reference Range Interpretation Comments Albumin/Globulin Ratio (test code = 1759-0) 0.9 0.8-2.0 [facility] CenterAlkaline Gficbwlthvl5831-21-29 06:08:00* Test Item Value Reference Range Interpretation Comments Alkaline Phosphatase (test code = 6768-6) 102 40-150 [facility] CenterActivated Partial Thromboplast Time 2017-11-23 06:00:00* Test Item Value Reference Range Interpretation Comments Activated Partial Thromboplast Time (test code = 43938-7) 34.0 23.8-35.5 [facility] Center[facility] Thromboplast Time 2017-11-23 06:00:00* Test Item Value Reference Range Interpretation Comments Activated Partial Thromboplast Time (test code = 62593-8) 34.0 23.8-35.5 [facility] CenterMRI SPINE THORACIC [id number] 16:04:00 [facility] [address] [address] Patient Name: TEDDY LESTER MR #: [id number] : 1945 Age/Sex: 72/M Req #: [id number] Adm Physicia n: MONIQUE THOMPSON MD Ordered by: KELY LESTER MD Report #: [id number] Location: MED/SURG3 Room/Bed: 292-1 Procedure: [id number] MRI/MRI SPINE THORACIC WO Exam Date: Exam Time: REPORT STATUS: Signed Exam: Thoracic spine MRI without IV contra st History:Severe back pain, evaluate new T4 and T5 compression fractures. C omparison studies: Chest CT of 11/21/2017 and included spine from chest CT of . Technique: Sagittal T1, T2 and STIR without contrast; axial and coron al T2. Findings: Curvature: Increased thoracic kyphosis due to mult iple chronic thoracic compression fractures. Paraspinal soft tissues: No signal abnormalities. Spinal cord: The spinal cord is normal in size and signa l intensity through the tip of the conus at L1. Vertebrae: Inferior T4 endplate fracture with edema results in approximately 20% height loss. Acute s uperior T6 endplate fracture with edema along the superior endplate which in c ombination with Schmorl's node along the inferior endplate results in up to 30 % height loss. No significant associated retropulsion. A superior T5 endpla te depression fracture with associated 15% height loss is without edema to ind icate recent fracture and is also without associated retropulsion. Chroni c compression fractures with anterior wedge deformities at T8 (approximately 3 5% height loss) and at T9 (approximately 25% height loss), inferior T10 endpla te compression fracture (approximately 35% height loss) and chronic compressio n fractures with bone cement related to previous vertebral body augmentation a t T11, T12 and L1 with associated height loss are stable from the previous [facility] CT of 09/28/2017. Bones are demineralized with diffuse fatty marrow repla cement. Degenerative changes: Multilevel disc degeneration, worse/moderate at T7-T8 with there is moderate loss of disc height. Small disc osteophyte com plexes from T10 to L1 indented thecal sac without significant canal stenosis. No significant foraminal stenosis. Additional findings: Median sternotomy wires related to previous cardiothoracic surgery. Partially imaged bilateral renal cysts. IMPRESSION: 1. Acute mildly depressed inferior T4 and s uperior T6 endplate fractures with associated mild vertebral body height loss without significant retropulsion. 2. Chronic T5 inferior endplate fracture wi th minimal height loss as well as additional stable chronic compression fractu res from T8 through L1. 3. Increased thoracic kyphosis with diffuse osseous d emineralization. Signed by: Dr. Gregorio Bravo M.D. on 11/22/2017 4:28 PM Dictated By: GREGORIO BRAVO MD 27 Transcribed By: ERICH on 11/22/171627 COPY TO: KELY SANCHEZ MD [id number] 22:40:00 [address] [address] Patient Name: TEDDY LESTER MR #: [id number] : 1945 Age/Sex: 72/M Req #: [id number] Adm Physician: Ordered by: KELY LESTER MD Report #: [id number] Location: ER Room/Bed: Procedure: [id number] CT/CTA CHEST Exam Da te: 11/21/17 Exam Time: 2157 REPORT STATUS: Sig zaheer EXAM: CTA CHEST, ABDOMEN AND PELVIS WITH AND WITHOUT IV CONTRAST. IND ICATION: Back pain, S eval for aortic dissection S Y COMPARISON: 07/10/2017, 06/11/2017. TECHNIQUE: Multi-detector CT technology was employed. CTA of the chest, abdomen and pelvis was performed, before and after the administration of IV contrast. For optimization of anatomic evaluation, multiplanar reconstru ction, maximum intensity projections, and advanced 3-D off-line postprocessing were performed on a dedicated stand-alone workstation under the direct superv ision of the interpreting physician. IV CONTRAST: 100 m L of Isovue-370 ORAL CONTRAST: None COMPLIC ATIONS: None FINDINGS: Potential study limitations: None. CHEST: T here are again scattered predominantly calcified mediastinal and hilar nodes r elated to prior granulomatous disease. Normal heart size status post median st ernotomy and CABG. No pericardial effusion. There are scattered calcified granulomas in both lungs. Extensive scarlike opacities are seen in the lung ap ices and bases. VASCULAR WITH ADVANCED 3-D OFF-LINE POSTPROCESSING: Aorti c valve morphology is incompletely assessed on this non-gated examination. The thoracic and abdominal aorta is patent, normal caliber. There is mixed ca lcific and soft plaque within the thoracic and abdominal aorta, worse/moderate of the abdominal aorta. There is no acute aortic pathology, such as dissectio n, intramural hematoma, or contained rupture. There is a common origin of the brachiocephalic and left common carotid artery. All of the arch branch ves sels appear widely patent in their proximal portions. Separate origins of t he left gastric artery, splenic artery, and common hepatic artery directly fro m aorta. Severe narrowing of the proximal SMA related to soft plaque, but tidwell nt distally. BILLIE is patent. Bilateral renal arteries and right accessory renal artery are patent. Bilateral common, external and internal iliac arteries are patent, tortuous with mild to moderate atherosclerotic changes. Moderate n arrowing of the proximal right internal iliac artery. [employer] dime nsions of the thoracic and abdominal aorta are as follows: 3.1 cm at the aorti c annulus 3.9 cm at the sinuses of Valsalva (the sinotubular junction is prese rved) 3.6 cm at the mid ascending aorta 3.6 cm at the distal ascending aorta 3.2 cm at the mid transverse arch 3.0 cm at the proximal descending thoracic aorta 2.9 cm at the diaphragmatic hiatus 2.7 cm at the suprarenal aorta at the level of SMA 2.3 cm at the infrarenal aorta 2.6 cm at the level of the BILLIE, ectatic 2.0 cm above the bifurcation ABDOMEN AND PELVIS: Arterial phase images of the liver, spleen, pancreas, and adrenals are unremarkable. Pr ior cholecystectomy. There is diffuse bilateral renal cortical scarring with s cattered cysts. No evidence of bowel obstruction. Incidental small hiatal h ernia, diverticulosis and normal appendix. The bladder is underdistended with mild circumferential wall thickening, less conspicuous from prior. BONES: Diffusely decreased bone mineralization with multilevel degenerative changes and height loss of the spine: New mild inferior T4 and superior T5 height l oss with linear sclerosis related to compression fractures. Increased mild T6 central superior endplate compression fracture from prior. Unchanged T8-T9 com pression fractures. Vertebroplasty changes at T11-L4 and right SI joint fixati on. IMPRESSION: 1. Mixed atherosclerotic plaque of the thoracic aorta, bu t no aortic dissection or aneurysm. Severe proximal SMA narrowing, but patent distally without signs of bowel ischemia. 2. New compression fractures of T 4-T6. Correlate with site of pain. Signed by: Dr Hunter Del Rosario MD on 2017 11:17 PM Dictated By: HUNTER DEL ROSARIO MD 16 Transcribed By: ERICH on 11/21/172316 COPY TO: KELY LESTER MD CTA ABD/[id number] 22:40:00 [address] [address] Patient Name: TEDDY LESTER MR #: [id number] : 1945 Age/Sex: 72/M Req #: [id number] Adm Physicia n: Ordered by: KELY LESTER MD Report #: [id number] Location: ER Room/Bed: Procedure: [id number] CT/CTA ABD/PELVIS Ex am Date: 11/21/17 Exam Time: 2157 REPORT STATUS : Signed EXAM: CTA CHEST, ABDOMEN AND PELVIS WITH AND WITHOUT IV CONTRAST. INDICATION: Back pain, S eval for aortic dissection S Y COMPARISON: 018, 06/11/2017. TECHNIQUE: Multi-detector CT technology was employed. CTA o f the chest, abdomen and pelvis was performed, before and after the administra tion of IV contrast. For optimization of anatomic evaluation, multiplanar danny nstruction, maximum intensity projections, and advanced 3-D off-line postproce ssing were performed on a dedicated stand-alone workstation under the direct s upervision of the interpreting physician. IV CONTRAST: 100 mL of Isovue-370 ORAL CONTRAST: None CO MPLICATIONS: None FINDINGS: Potential study limitations: None. CHEST : There are again scattered predominantly calcified mediastinal and hilar node s related to prior granulomatous disease. Normal heart size status post median sternotomy and CABG. No pericardial effusion. There are scattered calci fied granulomas in both lungs. Extensive scarlike opacities are seen in the socrates ng apices and bases. VASCULAR WITH ADVANCED 3-D OFF-LINE POSTPROCESSING: Aortic valve morphology is incompletely assessed on this non-gated examination. The thoracic and abdominal aorta is patent, normal caliber. There is mixed calcific and soft plaque within the thoracic and abdominal aorta, worse/mod erate of the abdominal aorta. There is no acute aortic pathology, such as diss ection, intramural hematoma, or contained rupture. There is a common origin of the brachiocephalic and left common carotid artery. All of the arch branch vessels appear widely patent in their proximal portions. Separate origins of the left gastric artery, splenic artery, and common hepatic artery directly from aorta. Severe narrowing of the proximal SMA related to soft plaque, but patent distally. BILLIE is patent. Bilateral renal arteries and right accessory renal artery are patent. Bilateral common, external and internal iliac mildred jere are patent, tortuous with mild to moderate atherosclerotic changes. Moder ate narrowing of the proximal right internal iliac artery. [employer] dimensions of the thoracic and abdominal aorta are as follows: 3.1 cm at the aortic annulus 3.9 cm at the sinuses of Valsalva (the sinotubular junction is preserved) 3.6 cm at the mid ascending aorta 3.6 cm at the distal ascending aorta 3.2 cm at the mid transverse arch 3.0 cm at the proximal descending th oracic aorta 2.9 cm at the diaphragmatic hiatus 2.7 cm at the suprarenal aor ta at the level of SMA 2.3 cm at the infrarenal aorta 2.6 cm at the level of the BILLIE, ectatic 2.0 cm above the bifurcation ABDOMEN AND PELVIS: Mildred rial phase images of the liver, spleen, pancreas, and adrenals are unremarkabl e. Prior cholecystectomy. There is diffuse bilateral renal cortical scarring w ith scattered cysts. No evidence of bowel obstruction. Incidental small hia sophia hernia, diverticulosis and normal appendix. The bladder is underdistended with mild circumferential wall thickening, less conspicuous from prior. B ONES: Diffusely decreased bone mineralization with multilevel degenerative beulah nges and height loss of the spine: New mild inferior T4 and superior T5 hei ght loss with linear sclerosis related to compression fractures. Increased mil d T6 central superior endplate compression fracture from prior. Unchanged T8-T 9 compression fractures. Vertebroplasty changes at T11-L4 and right SI joint f ixation. IMPRESSION: 1. Mixed atherosclerotic plaque of the thoracic aort a, but no aortic dissection or aneurysm. Severe proximal SMA narrowing, but p atent distally without signs of bowel ischemia. 2. New compression fractures of T4-T6. Correlate with site of pain. Signed by: Dr Hunter Del Rosario MD on 11/21/2017 11:17 PM Dictated By: HUNTER DEL ROSARIO MD 2365 Transcribed By: ERICH on 11/21/17 17 COPY TO: KELY LESTER MD Creatine Kinase [id number] 21:17:00* Test Item Value Reference Range Interpretation Comments Creatine Kinase MB (test code = 40010-8) 1.10 0-5.0 [place] [id number] 21:17:00* Test Item Value Reference Range Interpretation Comments Troponin I (test code = AYF6474) 0.013 0-0.300 [facility] CenterCreatine Kinase [id number] 21:17:00* Test Item Value Reference Range Interpretation Comments Creatine Kinase MB (test code = 23199-5) 1.10 0-5.0 [facility] CenterTrPatricia [place]ille [id number] 21:17:00* Test Item Value Reference Range Interpretation Comments Troponin I (test code = BXY2872) 0.013 0-0.300 [facility] CenterCreatine Kinase [id number] 21:17:00* Test Item Value Reference Range Interpretation Comments Creatine Kinase MB (test code = 36201-3) 1.10 0-5.0 [place] [id number] 21:17:00* Test Item Value Reference Range Interpretation Comments Troponin I (test code = LQS1289) 0.013 0-0.300 [facility] CenterCreatine Kgniyl7557-83-29 21:09:00* Test Item Value Reference Range Interpretation Comments Creatine Kinase (test code = 2157-6) 27 30-200 L [facility] CenterCreatine Owjcch9864-15-06 21:09:00* Test Item Value Reference Range Interpretation Comments Creatine Kinase (test code = 2157-6) 27 30-200 L [facility] CenterCreatine [id number] 21:09:00* Test Item Value Reference Range Interpretation Comments Creatine Kinase (test code = 2157-6) 27 30-200 L [facility] CenterCHEST SINGLE (PORTABLE)2017-11-21 19:17:00 [address] [address] Patient Name: TEDDY LESTER MR #: [id number] : 1945 Age/Sex: 72/M Req #: [id number] Adm Physician: Ordered by: YVETTE HERMAN MD Report #: [id number] Location: ER Room/Bed: Procedure: [id number] DX/CHEST SINGLE (PORTABLE) Exam Date: 11/21/17 Exam Time: [address] ATUS: Signed EXAMINATION: CHEST SINGLE (PORTABLE) INDICATION: Chest pain. COMPARISON: Chest x-ray 11/09/2017. FINDINGS: AP vie w TUBES and LINES: Median sternotomy wires. LUNGS: Lungs are well inflated. Lungs are clear. There is no evidence of pneumonia or pulmonary ed claudy. PLEURA: No pleural effusion or pneumothorax. HEART AND MEDIASTIN UM: The cardiomediastinal silhouette is unremarkable. Tortuous aorta is uncha nged. BONES AND SOFT TISSUES: No acute osseous lesion. Soft tissues are unremarkable. UPPER ABDOMEN: No free air under the diaphragm. IMP RESSION: No acute thoracic abnormality. Signed by: Dr. Asa Zamarripa M.D. on 11/21/2017 7:18 PM Dictated By: ASA ZAMARRIPA MD 17 Transcribed By: ERICH on 11/21/171917 COPY T O: YVETTE HERMAN MD Activated Partial Thromboplast [id number] 09:43:00* Test Item Value Reference Range Interpretation Comments Activated Partial Thromboplast Time (test code = 68117-9) 87.8 23.8-35.5 H [facility] CenterProthrombin Cvom8330-02-03 09:20:00* Test Item Value Reference Range Interpretation Comments Prothrombin Time (test code = 5902-2) 22.8 11.9-14.5 H [facility] CenterProthromb Time International Ratio 2017-11-13 09:20:00* Test Item Value Reference Range Interpretation Comments Prothromb Time International Ratio (test code = 6301-6) 2.18 Oral Anticoagulant Therapy INR Values:1. Low Intensity Therapy 1.5 - 2.02 . Moderate Intensity Therapy 2.0 - 3.03. High Intensity Therapy(1) 2.5 - 3. 54. High Intensity Therapy(2) 3.0 - 4.05. Panic Value INR > 5.0 [facility] Ngjex1706-38-30 17:00:00* Test Item Value Reference Range Interpretation Comments Sodium Level (test code = 2951-2) 134 136-145 L [facility] CenterPotassium Thfeq0041-08-15 17:00:00* Test Item Value Reference Range Interpretation Comments Potassium Level (test code = 2823-3) 4.8 3.5-5.1 [facility] CenterChloride [id number] 17:00:00* Test Item Value Reference Range Interpretation Comments Chloride Level (test code = 2075-0) 104 98-107 [facility] CenterCarbon Dioxide [id number] 17:00:00* Test Item Value Reference Range Interpretation Comments Carbon Dioxide Level (test code = 2028-9) 23 22- [facility] CenterAnion [id number] 17:00:00* Test Item Value Reference Range Interpretation Comments Anion Gap (test code = 07471-5) 11.8 8-16 [facility] CenterBlood Urea Nsaiffxo4831-28-50 17:00:00* Test Item Value Reference Range Interpretation Comments Blood Urea Nitrogen (test code = 3094-0) 18 7-26 [facility] CenterCreatinine2018-06-29 17:00:00* Test Item Value Reference Range Interpretation Comments Creatinine (test code = 2160-0) 1.20 0.72-1.25 [facility] CenterBUN/Creatinine Xpxrx9451-62-48 17:00:00* Test Item Value Reference Range Interpretation Comments BUN/Creatinine Ratio (test code = 3097-3) 15 6-25 [facility] CenterEstimat Glomerular Filtration Rate 2017-11-11 17:00:00* Test Item Value Reference Range Interpretation Comments Estimat Glomerular Filtration Rate (test code = 59124-9) 60 >60 Ranges were taken from the National Kidney Disease Education Program and the [facility] Kidney Foundation literature.Reference ranges:60 or greater: Tiuuvv44-39 ( for 3 consecutive months): Chronic kidney disease 15 or less: Kidney failureLas Palmas Medical CenterGlucose Fubat4349-63-84 17:00:00* Test Item Value Reference Range Interpretation Comments Glucose Level (test code = XCP0947) 97 74-118 [facility] CenterCalcium Jibjl9820-23-64 17:00:00* Test Item Value Reference Range Interpretation Comments Calcium Level (test code = 96416-1) 9.2 8.4-10.2 [facility] CenterVQ LUNG SCAN VENT XTDHMRNVS4776-92-31 15:59:00 [place] [address] Patient Name: TEDDY LESTER MR #: [id number] : 1945 Age/Sex: 72/M Req #: [id number] Adm Physician: SHYLA GUAN MD Ordered by: STEVE LUCIA MD Report #: [id number] Location: [facility] Room/Bed: [facility] Procedure: 0628 0001 NM/VQ LUNG SCAN VENT PERFUSION Exam Date: Exam Time: REPORT STATUS: Signed Ventilation/perfusion lung scan Clinical Information: 72 M with SOB and chest pain Comparison: Chest radiog raph 11/09/2017 Discussion: Xenon-133 gas 9.2 mCi was administered via inhal ation. Dynamic images of the lungs in the posterior projection were obtained through single breath, equilibrium, and washout phases. Distribution of trace r activity is irregular throughout the lungs. There are no segmental ventilat ory defects. Washout of tracer is diffusely delayed with no air trapping. Perfusion images of the lungs were obtained in multiple projections following intravenous administration of approximately 6.0 mCi of Tc-99m MAA. Distribution of tracer is irregular throughout the lungs. The contours of the lungs are well demarcated. There are no segmental perfusion defects of any size. The cardiomediastinal silhouette is unremarkable. Impression: Scan f indings represent a VERY LOW probability for acute pulmonary embolic disease b ased on the PIOPED II criteria. Scan evidence of diffuse parenchymal and/or o bstructive lung disease obstructive lung disease. Signed by: Dr. Paulette ramos M.D. on 11/10/2017 4:02 PM Dictated By: PAULETTE HAUSER MD 1602 Transcribed By: ERICH on 11/10/17 1602 COPY TO: STEVE LUCIA MD Creatine Kinase [id number] 06:53:00* Test Item Value Reference Range Interpretation Comments Creatine Kinase MB (test code = 77258-5) 1.30 0-5.0 [facility] CenterTroponin [id number] 06:53:00* Test Item Value Reference Range Interpretation Comments Troponin I (test code = QDZ1302) 0.006 0-0.300 [facility] CenterCreatine Uqrbxj0818-60-88 06:44:00* Test Item Value Reference Range Interpretation Comments Creatine Kinase (test code = 2157-6) 27 30-200 L [facility] CenterArterial Blood dJ9606-22-08 17:08:00* Test Item Value Reference Range Interpretation Comments Arterial Blood pH (test code = 2744-1) 7.41 7.31-7.41 [facility] CenterArterial Blood Partial Pressure CO2 2017-11-09 17:08:00* Test Item Value Reference Range Interpretation Comments Arterial Blood Partial Pressure CO2 (test code = 2019-8) 31 41-51 L [facility] CenterArterial Blood Partial Pressure O2 2017-11-09 17:08:00* Test Item Value Reference Range Interpretation Comments Arterial Blood Partial Pressure O2 (test code = 2019-8) 56 80-105 L [facility] CenterArterial Blood [id number] 17:08:00* Test Item Value Reference Range Interpretation Comments Arterial Blood HCO3 (test code = 1960-4) 20 23-28 L [facility] CenterArterial Blood Base Uhxpjt8013-74-19 17:08:00* Test Item Value Reference Range Interpretation Comments Arterial Blood Base Excess (test code = 1925-7) -5.0 -2-3 L [facility] CenterArterial Blood Oxygen Saturation 2017-11-09 17:08:00* Test Item Value Reference Range Interpretation Comments Arterial Blood Oxygen Saturation (test code = 2708-6) 90.0 95-98 L [facility] CenterFiO22018-06-27 17:08:00* Test Item Value Reference Range Interpretation Comments FiO2 (test code = FiO2) 100 PT ON NONREBREATHER MASKLas Palmas Medical CenterArterial Blood pH 2017-11-09 17:08:00* Test Item Value Reference Range Interpretation Comments Arterial Blood pH (test code = 2744-1) 7.41 7.31-7.41 [facility] CenterArterial Blood Partial Pressure CO2 2017-11-09 17:08:00* Test Item Value Reference Range Interpretation Comments Arterial Blood Partial Pressure CO2 (test code = 2018-8) 31 41-51 L [facility] CenterArterial Blood Partial Pressure O2 2017-11-09 17:08:00* Test Item Value Reference Range Interpretation Comments Arterial Blood Partial Pressure O2 (test code = 2019-8) 56 80-105 L [facility] CenterArterial Blood [id number] 17:08:00* Test Item Value Reference Range Interpretation Comments Arterial Blood HCO3 (test code = 1960-4) 20 23-28 L [facility] CenterArterial Blood Base Nfvdph7077-48-71 17:08:00* Test Item Value Reference Range Interpretation Comments Arterial Blood Base Excess (test code = 1925-7) -5.0 -2-3 L [facility] CenterArterial Blood Oxygen Saturation 2017-11-09 17:08:00* Test Item Value Reference Range Interpretation Comments Arterial Blood Oxygen Saturation (test code = 2708-6) 90.0 95-98 L [facility] CenterFiO22018-06-27 17:08:00* Test Item Value Reference Range Interpretation Comments FiO2 (test code = FiO2) 100 PT ON NONREBREATHER MASKLas Palmas Medical CenterArterial Blood pH 2017-11-09 17:08:00* Test Item Value Reference Range Interpretation Comments Arterial Blood pH (test code = 2744-1) 7.41 7.31-7.41 [facility] CenterArterial Blood Partial Pressure CO2 2017-11-09 17:08:00* Test Item Value Reference Range Interpretation Comments Arterial Blood Partial Pressure CO2 (test code = 2018-8) 31 41-51 L [facility] CenterArterial Blood Partial Pressure O2 2017-11-09 17:08:00* Test Item Value Reference Range Interpretation Comments Arterial Blood Partial Pressure O2 (test code = 2018-8) 56 80-105 L [facility] CenterArterial Blood [id number] 17:08:00* Test Item Value Reference Range Interpretation Comments Arterial Blood HCO3 (test code = 1960-4) 20 23-28 L [facility]ial [facility] Base Npoyup1471-24-88 17:08:00* Test Item Value Reference Range Interpretation Comments Arterial Blood Base Excess (test code = 1925-7) -5.0 -2-3 L [facility] CenterArterial Blood Oxygen Saturation 2017-11-09 17:08:00* Test Item Value Reference Range Interpretation Comments Arterial Blood Oxygen Saturation (test code = 2708-6) 90.0 95-98 L [facility] CenterFiO22018-06-27 17:08:00* Test Item Value Reference Range Interpretation Comments FiO2 (test code = FiO2) 100 PT ON NONREBREATHER MASKLas [facility]mas Medical CenterArterial Blood pH 2017-11-09 17:08:00* Test Item Value Reference Range Interpretation Comments Arterial Blood pH (test code = 2744-1) 7.41 7.31-7.41 [facility] CenterArterial Blood Partial Pressure CO2 2017-11-09 17:08:00* Test Item Value Reference Range Interpretation Comments Arterial Blood Partial Pressure CO2 (test code = 2018-) 31 41-51 L [facility] CenterArterial Blood Partial Pressure O2 2017-11-09 17:08:00* Test Item Value Reference Range Interpretation Comments Arterial Blood Partial Pressure O2 (test code = 2018-12) 56 80-105 L [facility] CenterArterial Blood [id number] 17:08:00* Test Item Value Reference Range Interpretation Comments Arterial Blood HCO3 (test code = 1960-4) 20 23-28 L [facility] CenterArterial Blood Base Efcutk5357-99-22 17:08:00* Test Item Value Reference Range Interpretation Comments Arterial Blood Base Excess (test code = 1925-7) -5.0 -2-3 L [facility] CenterArterial Blood Oxygen Saturation 2017-11-09 17:08:00* Test Item Value Reference Range Interpretation Comments Arterial Blood Oxygen Saturation (test code = 2708-6) 90.0 95-98 L [facility] CenterFiO22018-06-27 17:08:00* Test Item Value Reference Range Interpretation Comments FiO2 (test code = FiO2) 100 PT ON NONREBREATHER MASKLas [facility]mas Medical CenterB-Type Natriuretic Sxgwmqv7081-79-55 16:27:00* Test Item Value Reference Range Interpretation Comments B-Type Natriuretic Peptide (test code = 65215-8) 112.9 0-100 H [facility] CenterB-[facility] Natriuretic Nmzgzbk5474-94-47 16:27:00* Test Item Value Reference Range Interpretation Comments B-Type Natriuretic Peptide (test code = 30712-5) 112.9 0-100 H [facility] CenterB[facility] Natriuretic Tdenwjl9566-85-09 16:27:00* Test Item Value Reference Range Interpretation Comments B-Type Natriuretic Peptide (test code = 66761-9) 112.9 0-100 H [facility] CenterB[facility] Natriuretic Snzwvzc0537-83-81 16:27:00* Test Item Value Reference Range Interpretation Comments B-Type Natriuretic Peptide (test code = 60667-2) 112.9 0-100 H [facility]CH[facility]INGLE (PORTABLE)2017-11-09 16:23:00 [facility] [address] [address] Patient Name: TEDDY LESTER MR #: [id number] : 1945 Age/Sex: 72/M Req #: [id number] Adm Physician: Ordered by: STEVE LUCIA MD Report #: [id number] Location: ER Room/Bed: Procedure: [id number] DX/CHEST SINGLE (PORTABL E) Exam Date: 11/09/17 Exam Time: 1550 REPORT STATUS: Signed PROCEDURE: A single AP view of the chest. COMPARISON: Chest radiograph 11/02/2017 INDICATIONS: SHORTNESS OF BREATH F INDINGS: Lines/tubes: None. Lungs: The lungs are well inflated. Upper lobe pleuroparenchymal scarring. There is no evidence of pneumonia or pulmona ry edema. Pleura: There is no pleural effusion or pneumothorax. Hea rt and mediastinum: The heart and the mediastinum are unremarkable. Bones : No acute bony abnormality. Median sternotomy wires. IMPRESSION: No acute cardiopulmonary disease. Dictated by: Jamel Jose M.D. on 018 at 16:23 Electronically approved by: Jamel Jose M.D. on 8 at 16:23 Dictated By: JAMEL JOSE MD Electronically Antonieta d By: JAMEL JOSE MD on 11/09/17 1623 Transcribed By: AMERICO on 11/09/17 1623 COPY TO: STEVE LUCIA MD D-Dimer Quantitative (PE/DVT) 2017-11-09 16:19:00* Test Item Value Reference Range Interpretation Comments D-Dimer Quantitative (PE/DVT) (test code = 31932-2) 1.60 0. 00-0.45 H [facility] CenterD-Dimer Quantitative (PE/DVT)2017-11-09 16:19:00* Test Item Value Reference Range Interpretation Comments D-Dimer Quantitative (PE/DVT) (test code = 03050-0) 1.60 0. 00-0.45 H [facility] CenterD-Dimer Quantitative (PE/DVT)2017-11-09 16:19:00* Test Item Value Reference Range Interpretation Comments D-Dimer Quantitative (PE/DVT) (test code = 15108-2) 1.60 0. 00-0.45 H [facility] CenterD-Dimer Quantitative (PE/DVT)2017-11-09 16:19:00* Test Item Value Reference Range Interpretation Comments D-Dimer Quantitative (PE/DVT) (test code = 26395-1) 1.60 0. 00-0.45 H [facility] CenterTotal Uhoqjmpbz9668-83-78 16:14:00* Test Item Value Reference Range Interpretation Comments Total Bilirubin (test code = 1975-2) 0.5 0.2-1.2 [facility] CenterAspartate Amino Transf (AST/SGOT) 2017-11-09 16:14:00* Test Item Value Reference Range Interpretation Comments Aspartate Amino Transf (AST/SGOT) (test code = Aspartate Amino Transf (AST/SGOT)) 17 5-34 [facility] CenterAlanine Aminotransferase (ALT/SGPT) 2017-11-09 16:14:00* Test Item Value Reference Range Interpretation Comments Alanine Aminotransferase (ALT/SGPT) (test code = 1742-6) 15 0-55 [facility] CenterTotal Hmwzbjz8294-97-60 16:14:00* Test Item Value Reference Range Interpretation Comments Total Protein (test code = 2885-2) 8.0 6.5-8.1 [facility] CenterAlbumin2018-06-27 16:14:00* Test Item Value Reference Range Interpretation Comments Albumin (test code = 1751-7) 3.8 3.5-5.0 [facility] CenterGlobulin2018-06-27 16:14:00* Test Item Value Reference Range Interpretation Comments Globulin (test code = 80824-9) 4.2 2.3-3.5 H [facility] CenterAlbumin/Globulin Ztrmp4086-84-70 16:14:00 * Test Item Value Reference Range Interpretation Comments Albumin/Globulin Ratio (test code = 1759-0) 0.9 0.8-2.0 [facility] CenterAlkaline Brekwwiipdh0311-43-37 16:14:00* Test Item Value Reference Range Interpretation Comments Alkaline Phosphatase (test code = 6768-6) 132 40-150 [facility] CenterWhite Blood Zmkib1470-57-27 16:01:00* Test Item Value Reference Range Interpretation Comments White Blood Count (test code = 6690-2) 7.00 4.8-10.8 [facility] CenterRed Blood Qunud8233-56-87 16:01:00* Test Item Value Reference Range Interpretation Comments Red Blood Count (test code = 789-8) 4.96 4.3-5.7 [facility] CenterHemoglobin2018-06-27 16:01:00* Test Item Value Reference Range Interpretation Comments Hemoglobin (test code = 69414-2) 14.8 14.0-18.0 [facility] CenterHematocrit2018-06-27 16:01:00* Test Item Value Reference Range Interpretation Comments Hematocrit (test code = 4544-3) 44.1 38.2-49.6 [facility] CenterMean Corpuscular Spwrli7086-04-35 16:01:00* Test Item Value Reference Range Interpretation Comments Mean Corpuscular Volume (test code = 787-2) 88.9 81-99 [facility] CenterMean Corpuscular Pbpwzluhjy7603-27-63 16:01:00* Test Item Value Reference Range Interpretation Comments Mean Corpuscular Hemoglobin (test code = 785-6) 29.8 28-32 [facility] CenterMean Corpuscular Hemoglobin Concent 2017-11-09 16:01:00* Test Item Value Reference Range Interpretation Comments Mean Corpuscular Hemoglobin Concent (test code = 786-4) 33.6 31-35 [facility] CenterRed Cell Distribution Mxjwv0332-09-64 16:01:00* Test Item Value Reference Range Interpretation Comments Red Cell Distribution Width (test code = 06377-5) 16.0 11.7 -14.4 H [facility] CenterPlatelet Egkul1405-07-96 16:01:00* Test Item Value Reference Range Interpretation Comments Platelet Count (test code = 777-3) 258 140-360 [facility] CenterNeutrophils (%) (Auto)2017-11-09 16:01:00 * Test Item Value Reference Range Interpretation Comments Neutrophils (%) (Auto) (test code = 25454-5) 73.8 38.7-80.0 [facility] CenterLymphocytes (%) (Auto)2017-11-09 16:01:00 * Test Item Value Reference Range Interpretation Comments Lymphocytes (%) (Auto) (test code = 736-9) 18.1 18.0-39.1 [facility] CenterMonocytes (%) (Auto)2017-11-09 16:01:00* Test Item Value Reference Range Interpretation Comments Monocytes (%) (Auto) (test code = 5905-5) 6.1 4.4-11.3 [facility] CenterEosinophils (%) (Auto)2017-11-09 16:01:00 * Test Item Value Reference Range Interpretation Comments Eosinophils (%) (Auto) (test code = 713-8) 0.7 0.0-6.0 [facility] CenterBasophils (%) (Auto)2017-11-09 16:01:00* Test Item Value Reference Range Interpretation Comments Basophils (%) (Auto) (test code = 706-2) 0.6 0.0-1.0 [facility] CenterIM GRANULOCYTES %2017-11-09 16:01:00* Test Item Value Reference Range Interpretation Comments IM GRANULOCYTES % (test code = IM GRANULOCYTES %) 0.7 0.0- 1.0 [facility] CenterNeutrophils # (Auto)2017-11-09 16:01:00* Test Item Value Reference Range Interpretation Comments Neutrophils # (Auto) (test code = 751-8) 5.2 2.1-6.9 [facility] CenterLymphocytes # (Auto)2017-11-09 16:01:00* Test Item Value Reference Range Interpretation Comments Lymphocytes # (Auto) (test code = 46257-3) 1.3 1.0-3.2 [facility] CenterMonocytes # (Auto)2017-11-09 16:01:00* Test Item Value Reference Range Interpretation Comments Monocytes # (Auto) (test code = 742-7) 0.4 0.2-0.8 [facility] CenterEosinophils # (Auto)2017-11-09 16:01:00* Test Item Value Reference Range Interpretation Comments Eosinophils # (Auto) (test code = 711-2) 0.1 0.0-0.4 [facility] CenterBasophils # (Auto)2017-11-09 16:01:00* Test Item Value Reference Range Interpretation Comments Basophils # (Auto) (test code = 704-7) 0.0 0.0-0.1 [facility] CenterAbsolute Immature Granulocyte (auto 2017-11-09 16:01:00* Test Item Value Reference Range Interpretation Comments Absolute Immature Granulocyte (auto (savanah t code = Absolute Immature Granulocyte (auto) 0.05 0-0.1 [facility] CenterTroponin [id number] 21:47:00* Test Item Value Reference Range Interpretation Comments Troponin I (test code = BBU7946) 0.006 0-0.300 [facility] CenterCreatine Kinase [id number] 19:11:00* Test Item Value Reference Range Interpretation Comments Creatine Kinase MB (test code = 81986-1) 1.10 0-5.0 [facility] CenterThyroid Stimulating Hormone (TSH) 2017-11-02 19:11:00* Test Item Value Reference Range Interpretation Comments Thyroid Stimulating Hormone (TSH) (test code = 92232-6) 6.577 0.350-4.940 H [facility] CenterThyroid Stimulating Hormone (TSH) 2017-11-02 19:11:00* Test Item Value Reference Range Interpretation Comments Thyroid Stimulating Hormone (TSH) (test code = 39528-7) 6.577 0.350-4.940 H [facility] CenterThyroid Stimulating Hormone (TSH) 2017-11-02 19:11:00* Test Item Value Reference Range Interpretation Comments Thyroid Stimulating Hormone (TSH) (test code = 93300-6) 6.577 0.350-4.940 H [facility] CenterThyroid Stimulating Hormone (TSH) 2017-11-02 19:11:00* Test Item Value Reference Range Interpretation Comments Thyroid Stimulating Hormone (TSH) (test code = 11047-7) 6.577 0.350-4.940 H [facility] CenterThyroid Stimulating Hormone (TSH) 2017-11-02 19:11:00* Test Item Value Reference Range Interpretation Comments Thyroid Stimulating Hormone (TSH) (test code = 85028-1) 6.577 0.350-4.940 H [facility] CenterThyroid Stimulating Hormone (TSH) 2017-11-02 19:11:00* Test Item Value Reference Range Interpretation Comments Thyroid Stimulating Hormone (TSH) (test code = 31724-9) 6.577 0.350-4.940 H [facility] CenterThyroid Stimulating Hormone (TSH) 2017-11-02 19:11:00* Test Item Value Reference Range Interpretation Comments Thyroid Stimulating Hormone (TSH) (test code = 76360-0) 6.577 0.350-4.940 H [facility] CenterThyroid Stimulating Hormone (TSH) 2017-11-02 19:11:00* Test Item Value Reference Range Interpretation Comments Thyroid Stimulating Hormone (TSH) (test code = 60335-4) 6.577 0.350-4.940 H [facility] CenterThyroid Stimulating Hormone (TSH) 2017-11-02 19:11:00* Test Item Value Reference Range Interpretation Comments Thyroid Stimulating Hormone (TSH) (test code = 24100-5) 6.577 0.350-4.940 H [facility] CenterThyroid Stimulating Hormone (TSH) 2017-11-02 19:11:00* Test Item Value Reference Range Interpretation Comments Thyroid Stimulating Hormone (TSH) (test code = 75173-0) 6.577 0.350-4.940 H [facility] CenterThyroid Stimulating Hormone (TSH) 2017-11-02 19:11:00* Test Item Value Reference Range Interpretation Comments Thyroid Stimulating Hormone (TSH) (test code = 62261-7) 6.577 0.350-4.940 [facility]odium Xssxn7367-34-23 18:38:00* Test Item Value Reference Range Interpretation Comments Sodium Level (test code = 2951-2) 140 136-145 [facility] CenterPotassium Mcrhl7945-44-79 18:38:00* Test Item Value Reference Range Interpretation Comments Potassium Level (test code = 2823-3) 4.6 3.5-5.1 [facility] CenterChloride Qlpyu8728-05-34 18:38:00* Test Item Value Reference Range Interpretation Comments Chloride Level (test code = 2075-0) 106 98-107 [facility] CenterCarbon Dioxide Mctdz1613-40-92 18:38:00* Test Item Value Reference Range Interpretation Comments Carbon Dioxide Level (test code = 2028-9) 23 22-29 [facility] CenterAnion Ppa9127-07-26 18:38:00* Test Item Value Reference Range Interpretation Comments Anion Gap (test code = 97759-1) 15.6 8-16 [facility] CenterBlood Urea Stfswije9944-38-66 18:38:00* Test Item Value Reference Range Interpretation Comments Blood Urea Nitrogen (test code = 3094-0) 16 7-26 [facility] CenterCreatinine2018-06-20 18:38:00* Test Item Value Reference Range Interpretation Comments Creatinine (test code = 2160-0) 1.46 0.72-1.25 H [facility] CenterBUN/Creatinine Lzfqq1538-10-21 18:38:00* Test Item Value Reference Range Interpretation Comments BUN/Creatinine Ratio (test code = 3097-3) 11 6-25 [facility] CenterEstimat Glomerular Filtration Rate 2017-11-02 18:38:00* Test Item Value Reference Range Interpretation Comments Estimat Glomerular Filtration Rate (test code = 63503-2) 48 >60 L Ranges were taken from the National Kidney Disease Education Program and the [facility] literature.Reference ranges:60 or greater: Ipdqgo30-73 ( for 3 consecutive months): Chronic kidney disease 15 or less: Kidney failureCHI [facility] CampusGlucose Lojxh1511-17-78 18:38:00* Test Item Value Reference Range Interpretation Comments Glucose Level (test code = NMB5107) 105 74-118 [facility] CenterCalcium Pvapk3990-00-00 18:38:00* Test Item Value Reference Range Interpretation Comments Calcium Level (test code = 01184-6) 10.1 8.4-10.2 [facility] CenterMagnesium Wmtjv2454-90-17 18:38:00* Test Item Value Reference Range Interpretation Comments Magnesium Level (test code = 22279-1) 1.7 1.3-2.1 [facility] CenterTotal Hgaiuvoqw7987-12-55 18:38:00* Test Item Value Reference Range Interpretation Comments Total Bilirubin (test code = 1975-2) 0.4 0.2-1.2 [facility] CenterAspartate Amino Transf (AST/SGOT) 2017-11-02 18:38:00* Test Item Value Reference Range Interpretation Comments Aspartate Amino Transf (AST/SGOT) (test code = Aspartate Amino Transf (AST/SGOT)) 22 5-34 [facility] CenterAlanine Aminotransferase (ALT/SGPT) 2017-11-02 18:38:00* Test Item Value Reference Range Interpretation Comments Alanine Aminotransferase (ALT/SGPT) (test code = 1742-6) 19 0-55 [facility] CenterTotal Uhodkgz2448-46-16 18:38:00* Test Item Value Reference Range Interpretation Comments Total Protein (test code = 2885-2) 8.2 6.5-8.1 H [facility] CenterAlbumin2018-06-20 18:38:00* Test Item Value Reference Range Interpretation Comments Albumin (test code = 1751-7) 3.9 3.5-5.0 [facility] CenterGlobulin2018-06-20 18:38:00* Test Item Value Reference Range Interpretation Comments Globulin (test code = 97664-2) 4.3 2.3-3.5 H [facility] CenterAlbumin/Globulin Hxmyr8268-98-94 18:38:00 * Test Item Value Reference Range Interpretation Comments Albumin/Globulin Ratio (test code = 1759-0) 0.9 0.8-2.0 [facility] CenterAlkaline Lzrqdkqqzbs5239-06-50 18:38:00* Test Item Value Reference Range Interpretation Comments Alkaline Phosphatase (test code = 6768-6) 145 40-150 [facility] CenterB-Type Natriuretic Nhgyyfu0262-13-69 18:38:00* Test Item Value Reference Range Interpretation Comments B-Type Natriuretic Peptide (test code = 33624-4) 96.2 0-100 [facility] CenterCreatine Qhzexd8586-25-16 18:38:00* Test Item Value Reference Range Interpretation Comments Creatine Kinase (test code = 2157-6) 34 30-200 [facility] CenterMagnesium Uleca5210-10-13 18:38:00* Test Item Value Reference Range Interpretation Comments Magnesium Level (test code = 75232-2) 1.7 1.3-2.1 [facility] CenterMagnesium Zomfd0980-13-47 18:38:00* Test Item Value Reference Range Interpretation Comments Magnesium Level (test code = 76719-4) 1.7 1.3-2.1 [facility] CenterMagnesium Mohxa3008-97-74 18:38:00* Test Item Value Reference Range Interpretation Comments Magnesium Level (test code = 05566-8) 1.7 1.3-2.1 [facility] CenterMagnesium Apcnq6764-72-48 18:38:00* Test Item Value Reference Range Interpretation Comments Magnesium Level (test code = 58453-9) 1.7 1.3-2.1 [facility] CenterProthrombin Xfqk7582-82-60 18:26:00* Test Item Value Reference Range Interpretation Comments Prothrombin Time (test code = 5902-2) 19.5 11.9-14.5 H [facility] CenterProthromb Time International Ratio 2017-11-02 18:26:00* Test Item Value Reference Range Interpretation Comments Prothromb Time International Ratio (test code = 6301-6) 1.79 Oral Anticoagulant Therapy INR Values:1. Low Intensity Therapy 1.5 - 2.02 . Moderate Intensity Therapy 2.0 - 3.03. High Intensity Therapy(1) 2.5 - 3. 54. High Intensity Therapy(2) 3.0 - 4.05. Panic Value INR > 5.0 [facility] CenterActivated Partial Thromboplast Time 2017-11-02 18:26:00* Test Item Value Reference Range Interpretation Comments Activated Partial Thromboplast Time (test code = 67486-5) 32.7 23.8-35.5 [facility] CenterWhite Blood Swrxx7407-05-01 18:18:00* Test Item Value Reference Range Interpretation Comments White Blood Count (test code = 6690-2) 7.20 4.8-10.8 [facility] CenterRed Blood Qrltr0072-76-88 18:18:00* Test Item Value Reference Range Interpretation Comments Red Blood Count (test code = 789-8) 5.01 4.3-5.7 [facility] CenterHemoglobin2018-06-20 18:18:00* Test Item Value Reference Range Interpretation Comments Hemoglobin (test code = 70139-5) 14.8 14.0-18.0 [facility] CenterHematocrit2018-06-20 18:18:00* Test Item Value Reference Range Interpretation Comments Hematocrit (test code = 4544-3) 44.9 38.2-49.6 [facility] CenterMean Corpuscular Uudnhg9392-60-80 18:18:00* Test Item Value Reference Range Interpretation Comments Mean Corpuscular Volume (test code = 787-2) 89.6 81-99 [facility] CenterMean Corpuscular Ewnederbaq9771-51-40 18:18:00* Test Item Value Reference Range Interpretation Comments Mean Corpuscular Hemoglobin (test code = 785-6) 29.5 28-32 [facility] CenterMean Corpuscular Hemoglobin Concent 2017-11-02 18:18:00* Test Item Value Reference Range Interpretation Comments Mean Corpuscular Hemoglobin Concent (test code = 786-4) 33.0 31-35 [facility] CenterRed Cell Distribution Fupgc3622-39-49 18:18:00* Test Item Value Reference Range Interpretation Comments Red Cell Distribution Width (test code = 40581-5) 16.1 11.7 -14.4 H [facility] CenterPlatelet Hiivi5537-76-59 18:18:00* Test Item Value Reference Range Interpretation Comments Platelet Count (test code = 777-3) 258 140-360 [facility] CenterNeutrophils (%) (Auto)2017-11-02 18:18:00 * Test Item Value Reference Range Interpretation Comments Neutrophils (%) (Auto) (test code = 25740-8) 73.2 38.7-80.0 [facility] CenterLymphocytes (%) (Auto)2017-11-02 18:18:00 * Test Item Value Reference Range Interpretation Comments Lymphocytes (%) (Auto) (test code = 736-9) 15.0 18.0-39.1 L [facility] CenterMonocytes (%) (Auto)2017-11-02 18:18:00* Test Item Value Reference Range Interpretation Comments Monocytes (%) (Auto) (test code = 5905-5) 8.9 4.4-11.3 [facility] CenterEosinophils (%) (Auto)2017-11-02 18:18:00 * Test Item Value Reference Range Interpretation Comments Eosinophils (%) (Auto) (test code = 713-8) 1.0 0.0-6.0 [facility] CenterBasophils (%) (Auto)2017-11-02 18:18:00* Test Item Value Reference Range Interpretation Comments Basophils (%) (Auto) (test code = 706-2) 0.6 0.0-1.0 [facility] CenterIM GRANULOCYTES %2017-11-02 18:18:00* Test Item Value Reference Range Interpretation Comments IM GRANULOCYTES % (test code = IM GRANULOCYTES %) 1.3 0.0- 1.0 H [facility] CenterNeutrophils # (Auto)2017-11-02 18:18:00* Test Item Value Reference Range Interpretation Comments Neutrophils # (Auto) (test code = 751-8) 5.3 2.1-6.9 [facility] CenterLymphocytes # (Auto)2017-11-02 18:18:00* Test Item Value Reference Range Interpretation Comments Lymphocytes # (Auto) (test code = 99843-4) 1.1 1.0-3.2 [facility] CenterMonocytes # (Auto)2017-11-02 18:18:00* Test Item Value Reference Range Interpretation Comments Monocytes # (Auto) (test code = 742-7) 0.6 0.2-0.8 [facility] CenterEosinophils # (Auto)2017-11-02 18:18:00* Test Item Value Reference Range Interpretation Comments Eosinophils # (Auto) (test code = 711-2) 0.1 0.0-0.4 [facility] CenterBasophils # (Auto)2017-11-02 18:18:00* Test Item Value Reference Range Interpretation Comments Basophils # (Auto) (test code = 704-7) 0.0 0.0-0.1 [facility] CenterAbsolute Immature Granulocyte (auto 2017-11-02 18:18:00* Test Item Value Reference Range Interpretation Comments Absolute Immature Granulocyte (auto (savanah t code = Absolute Immature Granulocyte (auto) 0.09 0-0.1 [facility] CenterUrine NGK5126-10-05 18:12:00* Test Item Value Reference Range Interpretation Comments Urine WBC (test code = 5821-4) 0-5 0-5 [facility] CenterUrine LSB7846-14-06 18:12:00* Test Item Value Reference Range Interpretation Comments Urine RBC (test code = 20484-5) 0-5 0-5 [facility] Vwpalvys8569-58-61 18:12:00* Test Item Value Reference Range Interpretation Comments Urine Bacteria (test code = 74468-2) NONE NONE [facility] CenterUrine Epithelial Gvbrs1349-99-33 18:12:00 * Test Item Value Reference Range Interpretation Comments Urine Epithelial Cells (test code = 53750-5) NONE NONE [facility] Usvts0145-39-26 18:12:00* Test Item Value Reference Range Interpretation Comments Urine Mucus (test code = 8247-9) FEW RARE H [facility] NSG4777-84-90 18:12:00* Test Item Value Reference Range Interpretation Comments Urine WBC (test code = 5821-4) 0-5 0-5 [facility] ESW9184-96-34 18:12:00* Test Item Value Reference Range Interpretation Comments Urine RBC (test code = 91167-3) 0-5 0-5 [facility] CenterUrine Tuxjkvuh8770-71-46 18:12:00* Test Item Value Reference Range Interpretation Comments Urine Bacteria (test code = 01379-2) NONE NONE [facility] CenterUrine Epithelial Jofyg6620-93-03 18:12:00 * Test Item Value Reference Range Interpretation Comments Urine Epithelial Cells (test code = 64330-5) NONE NONE [facility] Yfoqx7471-25-49 18:12:00* Test Item Value Reference Range Interpretation Comments Urine Mucus (test code = 8247-9) FEW RARE H [facility] KTK9832-53-88 18:12:00* Test Item Value Reference Range Interpretation Comments Urine WBC (test code = 5821-4) 0-5 0-5 [facility] [id number] 18:12:00* Test Item Value Reference Range Interpretation Comments Urine RBC (test code = 87563-1) 0-5 0-5 [facility] Lotvefwr3284-37-37 18:12:00* Test Item Value Reference Range Interpretation Comments Urine Bacteria (test code = 21652-2) NONE NONE [facility] CenterUrine Epithelial Xoqrp5979-07-14 18:12:00 * Test Item Value Reference Range Interpretation Comments Urine Epithelial Cells (test code = 69197-8) NONE NONE [facility] Pnzcb9426-08-24 18:12:00* Test Item Value Reference Range Interpretation Comments Urine Mucus (test code = 8247-9) FEW RARE H [facility] WIS4412-35-73 18:12:00* Test Item Value Reference Range Interpretation Comments Urine WBC (test code = 5821-4) 0-5 0-5 [facility] [id number] 18:12:00* Test Item Value Reference Range Interpretation Comments Urine RBC (test code = 60374-2) 0-5 0-5 [facility] CenterUrine Vfyjhtrp3009-59-29 18:12:00* Test Item Value Reference Range Interpretation Comments Urine Bacteria (test code = 63025-0) NONE NONE [facility] CenterUrine Epithelial Aapbu7365-22-53 18:12:00 * Test Item Value Reference Range Interpretation Comments Urine Epithelial Cells (test code = 61543-6) NONE NONE [facility] Mbkhd6734-94-94 18:12:00* Test Item Value Reference Range Interpretation Comments Urine Mucus (test code = 8247-9) FEW RARE H [facility] Daovp7348-88-50 18:12:00* Test Item Value Reference Range Interpretation Comments Urine Mucus (test code = 8247-9) FEW RARE H [facility] Hwkwd8253-51-84 17:49:00* Test Item Value Reference Range Interpretation Comments Urine Color (test code = 5778-6) YELLOW YELLOW [facility] CenterUrine Rjfwtrd5636-90-06 17:49:00* Test Item Value Reference Range Interpretation Comments Urine Clarity (test code = 91616-1) CLEAR CLEAR [facility] [facility] Acsehla1009-39-20 17:49:00 * Test Item Value Reference Range Interpretation Comments Urine Specific [place] (test code = 5811-5) 1.015 1.010-1.02 5 [facility] hM1309-97-23 17:49:00* Test Item Value Reference Range Interpretation Comments Urine pH (test code = 46332-1) 6 5-7 [facility] Leukocyte Iouaavvq2537-44-65 17:49:00* Test Item Value Reference Range Interpretation Comments Urine Leukocyte Esterase (test code = 5799-2) NEGATIVE NEGATIVE [facility] Fpxonuo8919-32-92 17:49:00* Test Item Value Reference Range Interpretation Comments Urine Nitrite (test code = 32857-2) NEGATIVE NEGATIVE [facility] Lgwxtxa5176-86-99 17:49:00* Test Item Value Reference Range Interpretation Comments Urine Protein (test code = 5804-0) NEGATIVE NEGATIVE [facility] Glucose (UA)2017-11-02 17:49:00* Test Item Value Reference Range Interpretation Comments Urine Glucose (UA) (test code = 2349-9) NEGATIVE NEGATIVE [facility] Vdedkix4700-02-34 17:49:00* Test Item Value Reference Range Interpretation Comments Urine Ketones (test code = 75185-0) NEGATIVE NEGATIVE [facility] Cydwnmpqcepa0124-62-65 17:49:00* Test Item Value Reference Range Interpretation Comments Urine Urobilinogen (test code = 60943-0) 0.2 0.2-1 [facility] Obytbfodi5501-53-32 17:49:00* Test Item Value Reference Range Interpretation Comments Urine Bilirubin (test code = 1978-6) NEGATIVE NEGATIVE [facility] Ihwcg1737-09-22 17:49:00* Test Item Value Reference Range Interpretation Comments Urine Blood (test code = 74314-8) NEGATIVE NEGATIVE [facility] Apita6443-63-80 17:49:00* Test Item Value Reference Range Interpretation Comments Urine Color (test code = 5778-6) YELLOW YELLOW [facility] Iqibwgf9264-56-53 17:49:00* Test Item Value Reference Range Interpretation Comments Urine Clarity (test code = 29094-7) CLEAR CLEAR [facility] Yctodoq3065-65-35 17:49:00 * Test Item Value Reference Range Interpretation Comments Urine Specific [place] (test code = 5811-5) 1.015 1.010-1.02 5 [facility] oK2800-09-54 17:49:00* Test Item Value Reference Range Interpretation Comments Urine pH (test code = 34404-4) 6 5-7 [facility] Leukocyte Dqgerhny2362-16-16 17:49:00* Test Item Value Reference Range Interpretation Comments Urine Leukocyte Esterase (test code = 5799-2) NEGATIVE NEGATIVE [facility] Fvakszk3531-54-15 17:49:00* Test Item Value Reference Range Interpretation Comments Urine Nitrite (test code = 37341-7) NEGATIVE NEGATIVE [facility] Pcwbvsl5129-59-54 17:49:00* Test Item Value Reference Range Interpretation Comments Urine Protein (test code = 5804-0) NEGATIVE NEGATIVE [facility] Glucose (UA)2017-11-02 17:49:00* Test Item Value Reference Range Interpretation Comments Urine Glucose (UA) (test code = 2349-9) NEGATIVE NEGATIVE [facility] Ummunpe7007-58-33 17:49:00* Test Item Value Reference Range Interpretation Comments Urine Ketones (test code = 13826-8) NEGATIVE NEGATIVE [facility] Umnkvdeaytlk0752-90-75 17:49:00* Test Item Value Reference Range Interpretation Comments Urine Urobilinogen (test code = 57955-6) 0.2 0.2-1 [facility] Jptniahrj9500-86-38 17:49:00* Test Item Value Reference Range Interpretation Comments Urine Bilirubin (test code = 1978-6) NEGATIVE NEGATIVE [facility] Fpbny5745-21-96 17:49:00* Test Item Value Reference Range Interpretation Comments Urine Blood (test code = 09634-3) NEGATIVE NEGATIVE [facility] Symxy4724-99-82 17:49:00* Test Item Value Reference Range Interpretation Comments Urine Color (test code = 5778-6) YELLOW YELLOW [facility] Jajtnfr2043-61-19 17:49:00* Test Item Value Reference Range Interpretation Comments Urine Clarity (test code = 36136-4) CLEAR CLEAR [facility] Tqjghxa5510-51-15 17:49:00 * Test Item Value Reference Range Interpretation Comments Urine Specific [place] (test code = 5811-5) 1.015 1.010-1.02 5 [facility] cQ9102-15-43 17:49:00* Test Item Value Reference Range Interpretation Comments Urine pH (test code = 81852-1) 6 5-7 [facility] Leukocyte Wkoevfvm8570-09-62 17:49:00* Test Item Value Reference Range Interpretation Comments Urine Leukocyte Esterase (test code = 5799-2) NEGATIVE NEGATIVE [facility] Nntioio7460-03-85 17:49:00* Test Item Value Reference Range Interpretation Comments Urine Nitrite (test code = 02219-4) NEGATIVE NEGATIVE [facility] Ivxwdcd3969-21-51 17:49:00* Test Item Value Reference Range Interpretation Comments Urine Protein (test code = 5804-0) NEGATIVE NEGATIVE [facility] Glucose (UA)2017-11-02 17:49:00* Test Item Value Reference Range Interpretation Comments Urine Glucose (UA) (test code = 2349-9) NEGATIVE NEGATIVE [facility] Qlvikgg4377-38-76 17:49:00* Test Item Value Reference Range Interpretation Comments Urine Ketones (test code = 40432-3) NEGATIVE NEGATIVE [facility] Gekmevauwqrd6167-79-74 17:49:00* Test Item Value Reference Range Interpretation Comments Urine Urobilinogen (test code = 46883-9) 0.2 0.2-1 [facility] Wiqcdkeiq8048-61-43 17:49:00* Test Item Value Reference Range Interpretation Comments Urine Bilirubin (test code = 1978-6) NEGATIVE NEGATIVE [facility] Tijtt3737-23-69 17:49:00* Test Item Value Reference Range Interpretation Comments Urine Blood (test code = 14992-6) NEGATIVE NEGATIVE [facility] Ilbjf8538-69-96 17:49:00* Test Item Value Reference Range Interpretation Comments Urine Color (test code = 5778-6) YELLOW YELLOW [facility] Clnpnok5436-81-95 17:49:00* Test Item Value Reference Range Interpretation Comments Urine Clarity (test code = 53500-6) CLEAR CLEAR [facility] Specific Ulkijau2647-92-77 17:49:00 * Test Item Value Reference Range Interpretation Comments Urine Specific [place] (test code = 5811-5) 1.015 1.010-1.02 5 [facility] uE9480-10-37 17:49:00* Test Item Value Reference Range Interpretation Comments Urine pH (test code = 48848-4) 6 5-7 [facility] Leukocyte Vpkpzmme6081-51-85 17:49:00* Test Item Value Reference Range Interpretation Comments Urine Leukocyte Esterase (test code = 5799-2) NEGATIVE NEGATIVE [facility] Gqghksd7643-77-76 17:49:00* Test Item Value Reference Range Interpretation Comments Urine Nitrite (test code = 94949-4) NEGATIVE NEGATIVE [facility] Gujgdml8749-48-88 17:49:00* Test Item Value Reference Range Interpretation Comments Urine Protein (test code = 5804-0) NEGATIVE NEGATIVE [facility] Glucose (UA)2017-11-02 17:49:00* Test Item Value Reference Range Interpretation Comments Urine Glucose (UA) (test code = 2349-9) NEGATIVE NEGATIVE [facility] Xvbopqk9751-05-18 17:49:00* Test Item Value Reference Range Interpretation Comments Urine Ketones (test code = 36044-4) NEGATIVE NEGATIVE [facility] Qvefsimtifen1527-37-43 17:49:00* Test Item Value Reference Range Interpretation Comments Urine Urobilinogen (test code = 81466-1) 0.2 0.2-1 [facility] Xeymfurzu8059-54-01 17:49:00* Test Item Value Reference Range Interpretation Comments Urine Bilirubin (test code = 1978-6) NEGATIVE NEGATIVE [facility] Ocktd8443-00-07 17:49:00* Test Item Value Reference Range Interpretation Comments Urine Blood (test code = 21057-6) NEGATIVE NEGATIVE [facility] CenterCHEST SINGLE (PORTABLE)2017-11-02 17:33:00 [facility] [address] [address] Patient Name: TEDDY LESTER MR #: [id number] : 1945 Age/Sex: 72/M Req #: [id number] Adm Physician: Ordered by: RUBEN GEORGES [employer]JECT MANAGER Report #: [id number] Location: ER Room/Bed: Procedure: [id number] DX/CHEST SINGLE (PORTABLE) Exam Date: 11/02/17 Exam Time: 1700 REPORT STAT US: Signed PROCEDURE: A single AP view of the chest. COMPARISON: Ches t 10/08/2017 INDICATIONS: SHORTNESS OF BREATH FINDINGS: Lines/tu bes: None. Lungs: The lungs are well inflated. Mild biapical scarring. T here is no evidence of pneumonia or pulmonary edema. Pleura: There is no pleural effusion or pneumothorax. Heart and mediastinum: Tortuous aorta . The heart and the mediastinum are otherwise unremarkable. Bones: No acute bony abnormality. Median sternotomy wires. IMPRESSION: No acute c ardiopulmonary disease. Dictated by: Jamel Jose M.D. on 11/02/2017 at 17:33 Electronically approved by: Jamel Jose M.D. on 11/02/2017 at 17 :33 Dictated By: JAMEL JOSE MD 32 Transcribed By: AMERICO on 11/02/171732 C OPY TO: RUBEN GEORGES [employer]EV[employer] PROJECT MANAGER Sodium Earil4456-10-42 08:57:00* Test Item Value Reference Range Interpretation Comments Sodium Level (test code = 2951-2) 135 136-145 L [facility] CenterPotassium Xsyeu6512-38-04 08:57:00* Test Item Value Reference Range Interpretation Comments Potassium Level (test code = 2823-3) 4.7 3.5-5.1 [facility] CenterChloride Mmnjy8102-88-10 08:57:00* Test Item Value Reference Range Interpretation Comments Chloride Level (test code = 2075-0) 106 98-107 [facility] CenterCarbon Dioxide Sfmxg0275-24-53 08:57:00* Test Item Value Reference Range Interpretation Comments Carbon Dioxide Level (test code = 2028-9) 22 22-29 [facility] CenterAnion Icr0814-20-80 08:57:00* Test Item Value Reference Range Interpretation Comments Anion Gap (test code = 30346-9) 11.7 8-16 [facility] CenterBlood Urea Luovsfuo4225-37-63 08:57:00* Test Item Value Reference Range Interpretation Comments Blood Urea Nitrogen (test code = 3094-0) 17 7- [facility] CenterCreatinine2018-05-27 08:57:00* Test Item Value Reference Range Interpretation Comments Creatinine (test code = 2160-0) 1.07 0.72-1.25 [facility] CenterBUN/Creatinine Unmjw7169-12-24 08:57:00* Test Item Value Reference Range Interpretation Comments BUN/Creatinine Ratio (test code = 3097-3) 16 - [facility] CenterEstimat Glomerular Filtration Rate 2017-10-09 08:57:00* Test Item Value Reference Range Interpretation Comments Estimat Glomerular Filtration Rate (test code = 27329-1) 60- >60 Ranges were taken from the National Kidney Disease Education Program and the [facility] Kid[facility] Foundation literature.Reference ranges:60 or greater: Xdiwno48-46 ( for 3 consecutive months): Chronic kidney disease 15 or less: Kidney failureLas [facility]mas Medical CenterGlucose Dmgjd2922-27-95 08:57:00* Test Item Value Reference Range Interpretation Comments Glucose Level (test code = PJJ6383) 86 74-118 [facility] CenterCalcium Bipti1483-32-63 08:57:00* Test Item Value Reference Range Interpretation Comments Calcium Level (test code = 49246-6) 9.2 8.4-10.2 [facility] CenterTotal Raaekqfjf1918-48-35 08:57:00* Test Item Value Reference Range Interpretation Comments Total Bilirubin (test code = 1975-2) 0.6 0.2-1.2 [facility] CenterAspartate Amino Transf (AST/SGOT) 2017-10-09 08:57:00* Test Item Value Reference Range Interpretation Comments Aspartate Amino Transf (AST/SGOT) (test code = Aspartate Amino Transf (AST/SGOT)) 13 5-34 [facility] CenterAlanine Aminotransferase (ALT/SGPT) 2017-10-09 08:57:00* Test Item Value Reference Range Interpretation Comments Alanine Aminotransferase (ALT/SGPT) (test code = 1742-6) 13 0-55 [facility] CenterTotal Vbqamiz5778-14-54 08:57:00* Test Item Value Reference Range Interpretation Comments Total Protein (test code = 2885-2) 6.9 6.5-8.1 [facility] CenterAlbumin2018-05-27 08:57:00* Test Item Value Reference Range Interpretation Comments Albumin (test code = 1751-7) 3.3 3.5-5.0 L [facility] CenterGlobulin2018-05-27 08:57:00* Test Item Value Reference Range Interpretation Comments Globulin (test code = 37947-7) 3.6 2.3-3.5 H [facility] CenterAlbumin/Globulin Lijta1933-49-14 08:57:00 * Test Item Value Reference Range Interpretation Comments Albumin/Globulin Ratio (test code = 1759-0) 0.9 0.8-2.0 [facility] CenterAlkaline Obkixnlqctj1164-08-56 08:57:00* Test Item Value Reference Range Interpretation Comments Alkaline Phosphatase (test code = 6768-6) 100 40-150 [facility] CenterProthrombin Fiql8648-87-69 08:23:00* Test Item Value Reference Range Interpretation Comments Prothrombin Time (test code = 5902-2) 29.1 11.9-14.5 H [facility] CenterProthromb Time International Ratio 2017-10-09 08:23:00* Test Item Value Reference Range Interpretation Comments Prothromb Time International Ratio (test code = 6301-6) 2.98 Oral Anticoagulant Therapy INR Values:1. Low Intensity Therapy 1.5 - 2.02 . Moderate Intensity Therapy 2.0 - 3.03. High Intensity Therapy(1) 2.5 - 3. 54. High Intensity Therapy(2) 3.0 - 4.05. Panic Value INR > 5.0 [facility] CenterActivated Partial Thromboplast Time 2017-10-09 08:23:00* Test Item Value Reference Range Interpretation Comments Activated Partial Thromboplast Time (test code = 62518-0) 49.8 23.8-35.5 H [facility] CenterWhite Blood Tnwri6271-33-47 08:12:00* Test Item Value Reference Range Interpretation Comments White Blood Count (test code = 6690-2) 5.92 4.8-10.8 [facility] CenterRed Blood Zzqgq3892-95-05 08:12:00* Test Item Value Reference Range Interpretation Comments Red Blood Count (test code = 789-8) 4.22 4.3-5.7 L [facility] CenterHemoglobin2018-05-27 08:12:00* Test Item Value Reference Range Interpretation Comments Hemoglobin (test code = 32141-0) 12.5 14.0-18.0 L [facility] CenterHematocrit2018-05-27 08:12:00* Test Item Value Reference Range Interpretation Comments Hematocrit (test code = 4544-3) 39.8 38.2-49.6 [facility] CenterMean Corpuscular Rfqsne7674-61-75 08:12:00* Test Item Value Reference Range Interpretation Comments Mean Corpuscular Volume (test code = 787-2) 94.3 81-99 [facility] CenterMean Corpuscular Rtimztohmu5319-09-03 08:12:00* Test Item Value Reference Range Interpretation Comments Mean Corpuscular Hemoglobin (test code = 785-6) 29.6 28-32 [facility] CenterMean Corpuscular Hemoglobin Concent 2017-10-09 08:12:00* Test Item Value Reference Range Interpretation Comments Mean Corpuscular Hemoglobin Concent (test code = 786-4) 31.4 31-35 [facility] CenterRed Cell Distribution Nzqqw7541-05-99 08:12:00* Test Item Value Reference Range Interpretation Comments Red Cell Distribution Width (test code = 91634-3) 16.7 11.7 -14.4 H [facility] CenterPlatelet Kniwk3359-69-80 08:12:00* Test Item Value Reference Range Interpretation Comments Platelet Count (test code = 777-3) 195 140-360 [facility] CenterNeutrophils (%) (Auto)2017-10-09 08:12:00 * Test Item Value Reference Range Interpretation Comments Neutrophils (%) (Auto) (test code = 23210-6) 69.7 38.7-80.0 [facility] CenterLymphocytes (%) (Auto)2017-10-09 08:12:00 * Test Item Value Reference Range Interpretation Comments Lymphocytes (%) (Auto) (test code = 736-9) 17.6 18.0-39.1 L [facility] CenterMonocytes (%) (Auto)2017-10-09 08:12:00* Test Item Value Reference Range Interpretation Comments Monocytes (%) (Auto) (test code = 5905-5) 9.5 4.4-11.3 [facility] CenterEosinophils (%) (Auto)2017-10-09 08:12:00 * Test Item Value Reference Range Interpretation Comments Eosinophils (%) (Auto) (test code = 713-8) 2.0 0.0-6.0 [facility] CenterBasophils (%) (Auto)2017-10-09 08:12:00* Test Item Value Reference Range Interpretation Comments Basophils (%) (Auto) (test code = 706-2) 0.5 0.0-1.0 [facility] CenterIM GRANULOCYTES %2017-10-09 08:12:00* Test Item Value Reference Range Interpretation Comments IM GRANULOCYTES % (test code = IM GRANULOCYTES %) 0.7 0.0- 1.0 [facility] CenterNeutrophils # (Auto)2017-10-09 08:12:00* Test Item Value Reference Range Interpretation Comments Neutrophils # (Auto) (test code = 751-8) 4.1 2.1-6.9 [facility] CenterLymphocytes # (Auto)2017-10-09 08:12:00* Test Item Value Reference Range Interpretation Comments Lymphocytes # (Auto) (test code = 15926-9) 1.0 1.0-3.2 [facility] CenterMonocytes # (Auto)2017-10-09 08:12:00* Test Item Value Reference Range Interpretation Comments Monocytes # (Auto) (test code = 742-7) 0.6 0.2-0.8 [facility] CenterEosinophils # (Auto)2017-10-09 08:12:00* Test Item Value Reference Range Interpretation Comments Eosinophils # (Auto) (test code = 711-2) 0.1 0.0-0.4 [facility] CenterBasophils # (Auto)2017-10-09 08:12:00* Test Item Value Reference Range Interpretation Comments Basophils # (Auto) (test code = 704-7) 0.0 0.0-0.1 [facility] CenterAbsolute Immature Granulocyte (auto 2017-10-09 08:12:00* Test Item Value Reference Range Interpretation Comments Absolute Immature Granulocyte (auto (savanah t code = Absolute Immature Granulocyte (auto) 0.04 0-0.1 [facility] CenterTriglycerides Dkweg1729-77-29 07:54:00* Test Item Value Reference Range Interpretation Comments Triglycerides Level (test code = 2571-8) 77 0-149 [facility] CenterCholesterol Qszja1506-83-67 07:54:00* Test Item Value Reference Range Interpretation Comments Cholesterol Level (test code = 2093-3) 117 0-199 Less than 200 mg/dL Low Orjp234 - 239 mg/dL Borderline Sdey561 m g/dl and greater High Risk [facility] CenterLDL Tzwvrcuhqok4086-79-06 07:54:00* Test Item Value Reference Range Interpretation Comments LDL Cholesterol (test code = 2089-1) 65 60-130 [facility] CenterHDL Kwqnigbcdre1173-99-42 07:54:00* Test Item Value Reference Range Interpretation Comments HDL Cholesterol (test code = 2085-9) 37 40-60 L [facility] CenterCholesterol/HDL Esxrd7497-07-21 07:54:00 * Test Item Value Reference Range Interpretation Comments Cholesterol/HDL Ratio (test code = 9830-1) 3.2 3.9-4.7 L [facility] CenterCreatine Pupfay3319-32-74 07:54:00* Test Item Value Reference Range Interpretation Comments Creatine Kinase (test code = 2157-6) 23 30-200 L [facility] CenterCreatine Kinase EM4402-15-59 07:54:00* Test Item Value Reference Range Interpretation Comments Creatine Kinase MB (test code = 51138-6) 1.40 0-5.0 [facility] CenterTroponin Z6869-67-25 07:54:00* Test Item Value Reference Range Interpretation Comments Troponin I (test code = WCN9326) 0.014 0-0.300 [facility] CenterTriglycerides Szbsy4894-32-64 07:54:00* Test Item Value Reference Range Interpretation Comments Triglycerides Level (test code = 2571-8) 77 0-149 [facility] CenterCholesterol Cqqrx5112-94-87 07:54:00* Test Item Value Reference Range Interpretation Comments Cholesterol Level (test code = 2093-3) 117 0-199 Less than 200 mg/dL Low Ydfy406 - 239 mg/dL Borderline Mgda569 m g/dl and greater High Risk [facility] CenterLDL Pymfnripmhg7283-15-52 07:54:00* Test Item Value Reference Range Interpretation Comments LDL Cholesterol (test code = 2089-1) 65 60-130 [facility] Mtlszldqbme3747-31-74 07:54:00* Test Item Value Reference Range Interpretation Comments HDL Cholesterol (test code = 2085-9) 37 40-60 L [facility] CenterCholesterol/HDL Wwvyj7543-92-91 07:54:00 * Test Item Value Reference Range Interpretation Comments Cholesterol/HDL Ratio (test code = 9830-1) 3.2 3.9-4.7 L [facility] CenterTriglycerides Lzyjq7750-97-50 07:54:00* Test Item Value Reference Range Interpretation Comments Triglycerides Level (test code = 2571-8) 77 0-149 [facility] CenterCholesterol Afgyj0785-29-76 07:54:00* Test Item Value Reference Range Interpretation Comments Cholesterol Level (test code = 2093-3) 117 0-199 Less than 200 mg/dL Low Hknu448 - 239 mg/dL Borderline Aisu990 m g/dl and greater High Risk [facility] CenterLDL Aokjkeeojog6123-73-34 07:54:00* Test Item Value Reference Range Interpretation Comments LDL Cholesterol (test code = 2089-1) 65 60-130 [facility] Huxzfnjlnjp6546-51-32 07:54:00* Test Item Value Reference Range Interpretation Comments HDL Cholesterol (test code = 2085-9) 37 40-60 L [facility] CenterCholesterol/HDL Eekmk2846-47-47 07:54:00 * Test Item Value Reference Range Interpretation Comments Cholesterol/HDL Ratio (test code = 9830-1) 3.2 3.9-4.7 L [facility] CenterTriglycerides Gecpd4347-56-25 07:54:00* Test Item Value Reference Range Interpretation Comments Triglycerides Level (test code = 2571-8) 77 0-149 [facility] CenterCholesterol Dnhwo2257-84-65 07:54:00* Test Item Value Reference Range Interpretation Comments Cholesterol Level (test code = 2093-3) 117 0-199 Less than 200 mg/dL Low Vvhi490 - 239 mg/dL Borderline Fezx949 m g/dl and greater High Risk [facility] CenterLDL Bpscnjmcywp1261-22-51 07:54:00* Test Item Value Reference Range Interpretation Comments LDL Cholesterol (test code = 2089-1) 65 60-130 [facility] CenterHDL Hsxeytdkvlo2340-13-15 07:54:00* Test Item Value Reference Range Interpretation Comments HDL Cholesterol (test code = 2085-9) 37 40-60 L [facility] CenterCholesterol/HDL Mfabb4003-32-09 07:54:00 * Test Item Value Reference Range Interpretation Comments Cholesterol/HDL Ratio (test code = 9830-1) 3.2 3.9-4.7 L [facility] CenterTriglycerides Cyxid1518-30-96 07:54:00* Test Item Value Reference Range Interpretation Comments Triglycerides Level (test code = 2571-8) 77 0-149 [facility] CenterCholesterol Qjkjz5793-06-28 07:54:00* Test Item Value Reference Range Interpretation Comments Cholesterol Level (test code = 2093-3) 117 0-199 Less than 200 mg/dL Low Oyiy253 - 239 mg/dL Borderline Xsxl655 m g/dl and greater High Risk [facility] CenterLDL Atwlymcqqko0996-72-58 07:54:00* Test Item Value Reference Range Interpretation Comments LDL Cholesterol (test code = 2089-1) 65 60-130 [facility] Fxlcqfkzntt2974-70-60 07:54:00* Test Item Value Reference Range Interpretation Comments HDL Cholesterol (test code = 2085-9) 37 40-60 L [facility] CenterCholesterol/HDL Kooai3490-81-82 07:54:00 * Test Item Value Reference Range Interpretation Comments Cholesterol/HDL Ratio (test code = 9830-1) 3.2 3.9-4.7 L [facility] CenterTriglycerides Mwqkf8045-24-28 07:54:00* Test Item Value Reference Range Interpretation Comments Triglycerides Level (test code = 2571-8) 77 0-149 [facility] CenterCholesterol Wrkkc8633-64-53 07:54:00* Test Item Value Reference Range Interpretation Comments Cholesterol Level (test code = 2093-3) 117 0-199 Less than 200 mg/dL Low Pmqj812 - 239 mg/dL Borderline Hheq966 m g/dl and greater High Risk [facility] CenterLDL Dpygybkxiqu7140-25-54 07:54:00* Test Item Value Reference Range Interpretation Comments LDL Cholesterol (test code = 2089-1) 65 60-130 [facility] Zyngiwivpcf0167-12-94 07:54:00* Test Item Value Reference Range Interpretation Comments HDL Cholesterol (test code = 2085-9) 37 40-60 L [facility] CenterCholesterol/HDL Iwrri7753-65-63 07:54:00 * Test Item Value Reference Range Interpretation Comments Cholesterol/HDL Ratio (test code = 9830-1) 3.2 3.9-4.7 L [facility] CenterTriglycerides Ntseb5813-39-36 07:54:00* Test Item Value Reference Range Interpretation Comments Triglycerides Level (test code = 2571-8) 77 0-149 [facility] CenterCholesterol Ittnz2659-77-56 07:54:00* Test Item Value Reference Range Interpretation Comments Cholesterol Level (test code = 2093-3) 117 0-199 Less than 200 mg/dL Low Yozy653 - 239 mg/dL Borderline Dfbf086 m g/dl and greater High Risk [facility] CenterLDL Jnpbjifjexb0480-27-56 07:54:00* Test Item Value Reference Range Interpretation Comments LDL Cholesterol (test code = 2089-1) 65 60-130 [facility] Yiswjxtomtp4728-54-85 07:54:00* Test Item Value Reference Range Interpretation Comments HDL Cholesterol (test code = 2085-9) 37 40-60 L [facility] CenterCholesterol/HDL Qvkhc1456-76-65 07:54:00 * Test Item Value Reference Range Interpretation Comments Cholesterol/HDL Ratio (test code = 9830-1) 3.2 3.9-4.7 L [facility] CenterTriglycerides Ljall4507-60-51 07:54:00* Test Item Value Reference Range Interpretation Comments Triglycerides Level (test code = 2571-8) 77 0-149 [facility] CenterCholesterol Atlev4269-68-53 07:54:00* Test Item Value Reference Range Interpretation Comments Cholesterol Level (test code = 2093-3) 117 0-199 Less than 200 mg/dL Low Izbe947 - 239 mg/dL Borderline Aoew282 m g/dl and greater High Risk [facility] CenterLDL Yrjtlyskufn4098-90-83 07:54:00* Test Item Value Reference Range Interpretation Comments LDL Cholesterol (test code = 2089-1) 65 60-130 [facility] Lxuioklwqsc1934-66-82 07:54:00* Test Item Value Reference Range Interpretation Comments HDL Cholesterol (test code = 2085-9) 37 40-60 L [facility] CenterCholesterol/HDL Erpxk4269-93-89 07:54:00 * Test Item Value Reference Range Interpretation Comments Cholesterol/HDL Ratio (test code = 9830-1) 3.2 3.9-4.7 L [facility] CenterTriglycerides Zyupp6647-90-73 07:54:00* Test Item Value Reference Range Interpretation Comments Triglycerides Level (test code = 2571-8) 77 0-149 [facility] CenterCholesterol Xsahl9188-06-61 07:54:00* Test Item Value Reference Range Interpretation Comments Cholesterol Level (test code = 2093-3) 117 0-199 Less than 200 mg/dL Low Gpor761 - 239 mg/dL Borderline Vjop312 m g/dl and greater High Risk [facility] CenterLDL Nhiaooljymd0990-04-84 07:54:00* Test Item Value Reference Range Interpretation Comments LDL Cholesterol (test code = 2089-1) 65 60-130 [facility] Qnkzipanzjm9345-74-09 07:54:00* Test Item Value Reference Range Interpretation Comments HDL Cholesterol (test code = 2085-9) 37 40-60 L [facility] CenterCholesterol/HDL Wdaye2378-44-64 07:54:00 * Test Item Value Reference Range Interpretation Comments Cholesterol/HDL Ratio (test code = 9830-1) 3.2 3.9-4.7 L [facility] CenterUrine Tatqt2163-86-39 18:01:00* Test Item Value Reference Range Interpretation Comments Urine Color (test code = 5778-6) YELLOW YELLOW [facility] CenterU[facility] Yswghjb8147-11-29 18:01:00* Test Item Value Reference Range Interpretation Comments Urine Clarity (test code = 10976-0) CLEAR CLEAR [facility] CenterU[facility] Specific Pzltdcc7167-85-48 18:01:00 * Test Item Value Reference Range Interpretation Comments Urine Specific [place] (test code = 5811-5) 1.020 1.010-1.02 5 [facility] CenterU[facility] aV2759-15-54 18:01:00* Test Item Value Reference Range Interpretation Comments Urine pH (test code = 32477-0) 5 5-7 [facility] CenterU[facility] Leukocyte Dsxjibjz8545-43-85 18:01:00* Test Item Value Reference Range Interpretation Comments Urine Leukocyte Esterase (test code = 5799-2) NEGATIVE NEGATIVE [facility] Bjgkkel7940-32-22 18:01:00* Test Item Value Reference Range Interpretation Comments Urine Nitrite (test code = 02883-4) NEGATIVE NEGATIVE [facility] CenterU[facility] Pcxmdlj2422-46-95 18:01:00* Test Item Value Reference Range Interpretation Comments Urine Protein (test code = 5804-0) NEGATIVE NEGATIVE [facility] CenterUrine Glucose (UA)2017-10-08 18:01:00* Test Item Value Reference Range Interpretation Comments Urine Glucose (UA) (test code = 2349-9) NEGATIVE NEGATIVE [facility] CenterU[facility] Vacuffe7896-96-57 18:01:00* Test Item Value Reference Range Interpretation Comments Urine Ketones (test code = 30975-0) NEGATIVE NEGATIVE [facility] CenterU[facility] Tztatclaftyz5016-83-69 18:01:00* Test Item Value Reference Range Interpretation Comments Urine Urobilinogen (test code = 07400-3) 1 0.2-1 [facility] CenterU[facility] Sdsvvhjif1858-33-95 18:01:00* Test Item Value Reference Range Interpretation Comments Urine Bilirubin (test code = 1978-6) NEGATIVE NEGATIVE [facility] CenterU[facility] Kpeqn6916-37-49 18:01:00* Test Item Value Reference Range Interpretation Comments Urine Blood (test code = 11014-3) NEGATIVE NEGATIVE [facility] CenterU[facility] TOY3378-10-54 18:01:00* Test Item Value Reference Range Interpretation Comments Urine WBC (test code = 5821-4) 0-5 0-5 [facility] CenterU[facility] JXC2027-69-96 18:01:00* Test Item Value Reference Range Interpretation Comments Urine RBC (test code = 47105-5) 0-5 0-5 [facility] CenterU[facility] Tiobajaq4477-17-93 18:01:00* Test Item Value Reference Range Interpretation Comments Urine Bacteria (test code = 60857-1) FEW NONE [facility] CenterUrine Epithelial Quagi8344-78-93 18:01:00 * Test Item Value Reference Range Interpretation Comments Urine Epithelial Cells (test code = 56536-6) FEW NONE [facility] CenterThyroid Stimulating Hormone (TSH) 2017-10-08 16:04:00* Test Item Value Reference Range Interpretation Comments Thyroid Stimulating Hormone (TSH) (test code = 96690-8) 5.645 0.350-4.940 H [facility] CenterB-Type Natriuretic Ypahuyk6087-28-45 15:55:00* Test Item Value Reference Range Interpretation Comments B-Type Natriuretic Peptide (test code = 82674-9) 137.9 0-100 H [facility] CenterMagnesium Nopaj3855-40-16 15:44:00* Test Item Value Reference Range Interpretation Comments Magnesium Level (test code = 74368-0) 1.8 1.3-2.1 [facility] CenterActivated Partial Thromboplast Time 2017-10-04 08:07:00* Test Item Value Reference Range Interpretation Comments Activated Partial Thromboplast Time (test code = 01035-6) 68.9 23.8-35.5 H [facility] CenterProthrombin Ijfs2496-20-94 06:40:00* Test Item Value Reference Range Interpretation Comments Prothrombin Time (test code = 5902-2) 27.5 11.9-14.5 H [facility] CenterProthromb Time International Ratio 2017-10-04 06:40:00* Test Item Value Reference Range Interpretation Comments Prothromb Time International Ratio (test code = 6301-6) 2.77 Oral Anticoagulant Therapy INR Values:1. Low Intensity Therapy 1.5 - 2.02 . Moderate Intensity Therapy 2.0 - 3.03. High Intensity Therapy(1) 2.5 - 3. 54. High Intensity Therapy(2) 3.0 - 4.05. Panic Value INR > 5.0 [facility] Gtrmgfnzg9932-96-19 10:38:00* Test Item Value Reference Range Interpretation Comments Total Bilirubin (test code = 1975-2) 0.5 0.2-1.2 [facility] CenterDirect Sxvcnhiyh2779-52-08 10:38:00* Test Item Value Reference Range Interpretation Comments Direct Bilirubin (test code = 05065-7) 0.2 0.0-0.5 [facility] CenterAspartate Amino Transf (AST/SGOT) 2017-10-02 10:38:00* Test Item Value Reference Range Interpretation Comments Aspartate Amino Transf (AST/SGOT) (test code = Aspartate Amino Transf (AST/SGOT)) 10 5-34 [facility] CenterAlanine Aminotransferase (ALT/SGPT) 2017-10-02 10:38:00* Test Item Value Reference Range Interpretation Comments Alanine Aminotransferase (ALT/SGPT) (test code = 1742-6) 9 0-55 [facility] CenterTotal Kevzcze3439-64-54 10:38:00* Test Item Value Reference Range Interpretation Comments Total Protein (test code = 2885-2) 6.7 6.5-8.1 [facility] CenterAlbumin2018-05-20 10:38:00* Test Item Value Reference Range Interpretation Comments Albumin (test code = 1751-7) 3.3 3.5-5.0 L [facility] CenterAlkaline Sfmxjxhaolz3343-99-41 10:38:00* Test Item Value Reference Range Interpretation Comments Alkaline Phosphatase (test code = 6768-6) 108 40-150 [facility] Hdiwrtarn9586-36-07 10:38:00* Test Item Value Reference Range Interpretation Comments Direct Bilirubin (test code = 85351-6) 0.2 0.0-0.5 [facility] Rsxxnetyg8518-94-01 10:38:00* Test Item Value Reference Range Interpretation Comments Direct Bilirubin (test code = 53271-7) 0.2 0.0-0.5 [facility] Rkmsgiicm2657-52-71 10:38:00* Test Item Value Reference Range Interpretation Comments Direct Bilirubin (test code = 40485-7) 0.2 0.0-0.5 [facility] Uheeusyby2092-48-49 10:38:00* Test Item Value Reference Range Interpretation Comments Direct Bilirubin (test code = 26129-6) 0.2 0.0-0.5 [facility] Favassnjd5974-51-89 10:38:00* Test Item Value Reference Range Interpretation Comments Direct Bilirubin (test code = 91478-4) 0.2 0.0-0.5 [facility] Egcuoglqh2210-24-45 10:38:00* Test Item Value Reference Range Interpretation Comments Direct Bilirubin (test code = 23435-5) 0.2 0.0-0.5 [facility] Kbsdiolcq7922-71-73 10:38:00* Test Item Value Reference Range Interpretation Comments Direct Bilirubin (test code = 30520-1) 0.2 0.0-0.5 [facility] Rlpnjyruq4237-31-28 10:38:00* Test Item Value Reference Range Interpretation Comments Direct Bilirubin (test code = 15998-8) 0.2 0.0-0.5 [facility] Sloxkqvup6241-27-09 10:38:00* Test Item Value Reference Range Interpretation Comments Direct Bilirubin (test code = 77526-7) 0.2 0.0-0.5 [facility] Bxhcynpsh6969-76-77 10:38:00* Test Item Value Reference Range Interpretation Comments Direct Bilirubin (test code = 11511-2) 0.2 0.0-0.5 [facility] Lbkhifyjb9980-70-73 10:38:00* Test Item Value Reference Range Interpretation Comments Direct Bilirubin (test code = 72092-2) 0.2 0.0-0.5 [facility] Tpaesouuk3903-78-13 10:38:00* Test Item Value Reference Range Interpretation Comments Direct Bilirubin (test code = 50431-2) 0.2 0.0-0.5 [facility] CenterThyroid Stimulating Hormone (TSH) 2017-10-01 07:09:00* Test Item Value Reference Range Interpretation Comments Thyroid Stimulating Hormone (TSH) (test code = 19484-8) 5.840 0.350-4.940 [facility]odium Ffseq3166-56-09 06:34:00* Test Item Value Reference Range Interpretation Comments Sodium Level (test code = 2951-2) 137 136-145 [facility] CenterPotassium Xilya9993-78-96 06:34:00* Test Item Value Reference Range Interpretation Comments Potassium Level (test code = 2823-3) 4.6 3.5-5.1 [facility] CenterChloride Xqkos5575-68-78 06:34:00* Test Item Value Reference Range Interpretation Comments Chloride Level (test code = 2075-0) 109 98-107 H [facility] CenterCarbon Dioxide Icrdj6315-27-93 06:34:00* Test Item Value Reference Range Interpretation Comments Carbon Dioxide Level (test code = 2028-9) 21 22-29 L [facility] CenterAnion Mnb1002-71-91 06:34:00* Test Item Value Reference Range Interpretation Comments Anion Gap (test code = 15595-8) 11.6 8-16 [facility] CenterBlood Urea Ezcugxgv4739-52-58 06:34:00* Test Item Value Reference Range Interpretation Comments Blood Urea Nitrogen (test code = 3094-0) 14 7-26 [facility] CenterCreatinine2018-05-19 06:34:00* Test Item Value Reference Range Interpretation Comments Creatinine (test code = 2160-0) 1.18 0.72-1.25 [facility] CenterBUN/Creatinine Xyvrj2322-26-77 06:34:00* Test Item Value Reference Range Interpretation Comments BUN/Creatinine Ratio (test code = 3097-3) 12 6- [facility] CenterEstimat Glomerular Filtration Rate 2017-10-01 06:34:00* Test Item Value Reference Range Interpretation Comments Estimat Glomerular Filtration Rate (test code = 43702-9) 60- >60 Ranges were taken from the National Kidney Disease Education Program and the [facility] Kidney Foundation literature.Reference ranges:60 or greater: Rxdtmt87-13 ( for 3 consecutive months): Chronic kidney disease 15 or less: Kidney failureLas Palmas Medical CenterGlucose Pqnrs0387-28-68 06:34:00* Test Item Value Reference Range Interpretation Comments Glucose Level (test code = UTA8810) 84 74-118 [facility] CenterCalcium Qqztn6699-47-57 06:34:00* Test Item Value Reference Range Interpretation Comments Calcium Level (test code = 54472-9) 8.9 8.4-10.2 [facility] CenterGlobulin2018-05-19 06:34:00* Test Item Value Reference Range Interpretation Comments Globulin (test code = 84514-7) 3.3 2.3-3.5 [facility] CenterAlbumin/Globulin Jbxrv5529-29-72 06:34:00 * Test Item Value Reference Range Interpretation Comments Albumin/Globulin Ratio (test code = 1759-0) 0.9 0.8-2.0 [facility] CenterWhite Blood Cinjd7413-60-67 06:01:00* Test Item Value Reference Range Interpretation Comments White Blood Count (test code = 6690-2) 6.05 4.8-10.8 [facility] CenterRed Blood Ytkwd5745-58-91 06:01:00* Test Item Value Reference Range Interpretation Comments Red Blood Count (test code = 789-8) 3.68 4.3-5.7 L [facility] CenterHemoglobin2018-05-19 06:01:00* Test Item Value Reference Range Interpretation Comments Hemoglobin (test code = 12901-8) 11.1 14.0-18.0 L [facility] CenterHematocrit2018-05-19 06:01:00* Test Item Value Reference Range Interpretation Comments Hematocrit (test code = 4544-3) 35.3 38.2-49.6 L [facility] CenterMean Corpuscular Btxcpb4141-46-89 06:01:00* Test Item Value Reference Range Interpretation Comments Mean Corpuscular Volume (test code = 787-2) 95.9 81-99 [facility] CenterMean Corpuscular Qezbjihpsc6268-84-41 06:01:00* Test Item Value Reference Range Interpretation Comments Mean Corpuscular Hemoglobin (test code = 785-6) 30.2 28-32 [facility] Hem[facility] Concent 2017-10-01 06:01:00* Test Item Value Reference Range Interpretation Comments Mean Corpuscular Hemoglobin Concent (test code = 786-4) 31.4 31-35 [facility] CenterRed Cell Distribution Invpw0703-23-60 06:01:00* Test Item Value Reference Range Interpretation Comments Red Cell Distribution Width (test code = 80321-5) 16.5 11.7 -14.4 H [facility] CenterPlatelet Tyudj8084-29-79 06:01:00* Test Item Value Reference Range Interpretation Comments Platelet Count (test code = 777-3) 187 140-360 [facility] CenterNeutrophils (%) (Auto)2017-10-01 06:01:00 * Test Item Value Reference Range Interpretation Comments Neutrophils (%) (Auto) (test code = 33026-6) 70.3 38.7-80.0 [facility] CenterLymphocytes (%) (Auto)2017-10-01 06:01:00 * Test Item Value Reference Range Interpretation Comments Lymphocytes (%) (Auto) (test code = 736-9) 18.5 18.0-39.1 [facility] CenterMonocytes (%) (Auto)2017-10-01 06:01:00* Test Item Value Reference Range Interpretation Comments Monocytes (%) (Auto) (test code = 5905-5) 8.1 4.4-11.3 [facility] CenterEosinophils (%) (Auto)2017-10-01 06:01:00 * Test Item Value Reference Range Interpretation Comments Eosinophils (%) (Auto) (test code = 713-8) 2.3 0.0-6.0 [facility] CenterBasophils (%) (Auto)2017-10-01 06:01:00* Test Item Value Reference Range Interpretation Comments Basophils (%) (Auto) (test code = 706-2) 0.5 0.0-1.0 [facility] CenterIM GRANULOCYTES %2017-10-01 06:01:00* Test Item Value Reference Range Interpretation Comments IM GRANULOCYTES % (test code = IM GRANULOCYTES %) 0.3 0.0- 1.0 [facility] CenterNeutrophils # (Auto)2017-10-01 06:01:00* Test Item Value Reference Range Interpretation Comments Neutrophils # (Auto) (test code = 751-8) 4.3 2.1-6.9 [facility] CenterLymphocytes # (Auto)2017-10-01 06:01:00* Test Item Value Reference Range Interpretation Comments Lymphocytes # (Auto) (test code = 60889-6) 1.1 1.0-3.2 [facility] CenterMonocytes # (Auto)2017-10-01 06:01:00* Test Item Value Reference Range Interpretation Comments Monocytes # (Auto) (test code = 742-7) 0.5 0.2-0.8 [facility] CenterEosinophils # (Auto)2017-10-01 06:01:00* Test Item Value Reference Range Interpretation Comments Eosinophils # (Auto) (test code = 711-2) 0.1 0.0-0.4 [facility] CenterBasophils # (Auto)2017-10-01 06:01:00* Test Item Value Reference Range Interpretation Comments Basophils # (Auto) (test code = 704-7) 0.0 0.0-0.1 [facility] CenterAbsolute Immature Granulocyte (auto 2017-10-01 06:01:00* Test Item Value Reference Range Interpretation Comments Absolute Immature Granulocyte (auto (savanah t code = Absolute Immature Granulocyte (auto) 0.02 0-0.1 [facility] CenterCreatine Kinase ZV6701-40-03 03:17:00* Test Item Value Reference Range Interpretation Comments Creatine Kinase MB (test code = 72714-4) 1.70 0-5.0 [facility] CenterTroponin E6060-27-36 03:17:00* Test Item Value Reference Range Interpretation Comments Troponin I (test code = NEO4895) 0.028 0-0.300 [facility] CenterCreatine Wgomdm3605-68-39 02:58:00* Test Item Value Reference Range Interpretation Comments Creatine Kinase (test code = 2157-6) 24 30-200 L [facility] CenterUrine DZE3570-58-23 10:53:00* Test Item Value Reference Range Interpretation Comments Urine WBC (test code = 5821-4) NONE 0-5 [facility] CenterUrine GVQ7744-85-74 10:53:00* Test Item Value Reference Range Interpretation Comments Urine RBC (test code = 88113-1) NONE 0-5 [facility] CenterUrine Udkokbtl0570-20-01 10:53:00* Test Item Value Reference Range Interpretation Comments Urine Bacteria (test code = 03834-1) NONE NONE [facility] CenterUrine Epithelial Gidxl3807-18-81 10:53:00 * Test Item Value Reference Range Interpretation Comments Urine Epithelial Cells (test code = 61896-5) RARE NONE [facility] CenterUrine Zgwif0920-14-20 10:32:00* Test Item Value Reference Range Interpretation Comments Urine Color (test code = 5778-6) YELLOW YELLOW [facility] CenterUrine Avbjykc6776-89-65 10:32:00* Test Item Value Reference Range Interpretation Comments Urine Clarity (test code = 33526-6) CLEAR CLEAR [facility] Specific Kpusrtp3626-03-54 10:32:00 * Test Item Value Reference Range Interpretation Comments Urine Specific [place] (test code = 5811-5) 1.020 1.010-1.02 5 [facility] CenterUrine mE3548-34-17 10:32:00* Test Item Value Reference Range Interpretation Comments Urine pH (test code = 28353-8) 5 5-7 [facility] Leukocyte Yonrzxvb3825-33-18 10:32:00* Test Item Value Reference Range Interpretation Comments Urine Leukocyte Esterase (test code = 5799-2) NEGATIVE NEGATIVE [facility] Gjxstgt5187-99-56 10:32:00* Test Item Value Reference Range Interpretation Comments Urine Nitrite (test code = 56514-0) NEGATIVE NEGATIVE [facility] CenterUrine Nggfgrf2063-93-93 10:32:00* Test Item Value Reference Range Interpretation Comments Urine Protein (test code = 5804-0) NEGATIVE NEGATIVE [facility] Glucose (UA)2017-09-30 10:32:00* Test Item Value Reference Range Interpretation Comments Urine Glucose (UA) (test code = 2349-9) NEGATIVE NEGATIVE [facility] CenterUrine Xpkimbf5922-05-94 10:32:00* Test Item Value Reference Range Interpretation Comments Urine Ketones (test code = 21412-8) NEGATIVE NEGATIVE [facility] CenterUrine Wpdpssbiftbr7347-37-05 10:32:00* Test Item Value Reference Range Interpretation Comments Urine Urobilinogen (test code = 18102-8) 0.2 0.2-1 [facility] CenterUrine Cgziycahz5214-79-15 10:32:00* Test Item Value Reference Range Interpretation Comments Urine Bilirubin (test code = 1978-6) NEGATIVE NEGATIVE [facility] CenterUrine Sovqp0301-03-08 10:32:00* Test Item Value Reference Range Interpretation Comments Urine Blood (test code = 58071-7) NEGATIVE NEGATIVE [facility] CenterXRAY Chest 2 views 006712028-27-00 09:20:00Clinical Indication: - 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 Chronic obstructive pulmonary disease.SL: [id number]--Kkzg by: John Roberts MDDictated Date/time: 08/26/17 10:40Electronically Signed by: John Roberts MD 08/26/1809:41FINAL REPORTUnLogan [facility] Hospital Fsvptak7541-46-23 12:03:00* Test Item Value Reference Range Interpretation Comments Bedside Glucose (test code = 22381-3) 88 70-120 Meter ID: [id number] [facility] Glucose 2017-07-11 12:03:00* Test Item Value Reference Range Interpretation Comments Bedside Glucose (test code = 54074-0) 88 70-120 Meter ID: [id number] [facility]als [facility] Glucose 2017-07-11 12:03:00* Test Item Value Reference Range Interpretation Comments Bedside Glucose (test code = 45936-0) 88 70-120 Meter ID: [id number] [facility] Glucose 2017-07-11 12:03:00* Test Item Value Reference Range Interpretation Comments Bedside Glucose (test code = 00322-7) 88 70-120 Meter ID: [id number] [facility]als [facility] Glucose 2017-07-11 12:03:00* Test Item Value Reference Range Interpretation Comments Bedside Glucose (test code = 18181-3) 88 70-120 Meter ID: [id number] [facility] Glucose 2017-07-11 12:03:00* Test Item Value Reference Range Interpretation Comments Bedside Glucose (test code = 47757-5) 88 70-120 Meter ID: [id number] Hospitals [facility] Glucose 2017-07-11 12:03:00* Test Item Value Reference Range Interpretation Comments Bedside Glucose (test code = 47212-1) 88 70-120 Meter ID: [id number] [facility]als of [facility] Glucose 2017-07-11 12:03:00* Test Item Value Reference Range Interpretation Comments Bedside Glucose (test code = 93276-4) 88 70-120 Meter ID: [id number] [facility]als of [facility] Glucose 2017-07-11 12:03:00* Test Item Value Reference Range Interpretation Comments Bedside Glucose (test code = 73825-6) 88 70-120 Meter ID: [id number] [facility]als of [facility] Glucose 2017-07-11 12:03:00* Test Item Value Reference Range Interpretation Comments Bedside Glucose (test code = 07223-9) 88 70-120 Meter ID: [id number] [facility] Glucose 2017-07-11 12:03:00* Test Item Value Reference Range Interpretation Comments Bedside Glucose (test code = 10449-3) 88 70-120 Meter ID: [id number] [facility] Hospitalodium Level 2017-07-11 06:26:00* Test Item Value Reference Range Interpretation Comments Sodium Level (test code = 2951-2) 141 136-145 [facility] CenterPotassium Uggsq5592-96-79 06:26:00* Test Item Value Reference Range Interpretation Comments Potassium Level (test code = 2823-3) 4.4 3.5-5.1 [facility] CenterChloride Siyux5863-30-80 06:26:00* Test Item Value Reference Range Interpretation Comments Chloride Level (test code = 2075-0) 108 98-107 H [facility] CenterCarbon Dioxide Nhfvr2625-38-65 06:26:00* Test Item Value Reference Range Interpretation Comments Carbon Dioxide Level (test code = 2028-9) [facility] CenterAnion Zma1056-32-49 06:26:00* Test Item Value Reference Range Interpretation Comments Anion Gap (test code = 76816-5) 11.4 8-16 [facility] CenterBlood Urea Wjntambn4847-62-72 06:26:00* Test Item Value Reference Range Interpretation Comments Blood Urea Nitrogen (test code = 3094-0) 13 7-26 [facility] CenterCreatinine2018-02-26 06:26:00* Test Item Value Reference Range Interpretation Comments Creatinine (test code = 2160-0) 1.27 0.72-1.25 H [facility] CenterBUN/Creatinine Jymra3460-95-98 06:26:00* Test Item Value Reference Range Interpretation Comments BUN/Creatinine Ratio (test code = 3097-3) 10 - [facility] CenterEstimat Glomerular Filtration Rate 2017-07-11 06:26:00* Test Item Value Reference Range Interpretation Comments Estimat Glomerular Filtration Rate (test code = 23776-6) 56 >60 L Ranges were taken from the National Kidney Disease Education Program and the [facility] Kid[facility] Foundation literature.Reference ranges:60 or greater: Arvkuw10-70 ( for 3 consecutive months): Chronic kidney disease 15 or less: Kidney failureLas Palmas Medical CenterGlucose Bfncx3846-93-12 06:26:00* Test Item Value Reference Range Interpretation Comments Glucose Level (test code = HFR2416) 90 74-118 [facility] CenterCalcium Rcbua6356-53-36 06:26:00* Test Item Value Reference Range Interpretation Comments Calcium Level (test code = 63703-5) 8.2 8.4-10.2 L [facility] CenterTotal Netydknth1529-13-98 06:26:00* Test Item Value Reference Range Interpretation Comments Total Bilirubin (test code = 1975-2) 0.7 0.2-1.2 [facility] CenterAspartate Amino Transf (AST/SGOT) 2017-07-11 06:26:00* Test Item Value Reference Range Interpretation Comments Aspartate Amino Transf (AST/SGOT) (test code = Aspartate Amino Transf (AST/SGOT)) 30 5-34 [facility] CenterAlanine Aminotransferase (ALT/SGPT) 2017-07-11 06:26:00* Test Item Value Reference Range Interpretation Comments Alanine Aminotransferase (ALT/SGPT) (test code = 1742-6) 24 0-55 [facility] CenterTotal Npvjsei2685-37-12 06:26:00* Test Item Value Reference Range Interpretation Comments Total Protein (test code = 2885-2) 5.9 6.5-8.1 L [facility] CenterAlbumin2018-02-26 06:26:00* Test Item Value Reference Range Interpretation Comments Albumin (test code = 1751-7) 2.9 3.5-5.0 L [facility] CenterGlobulin2018-02-26 06:26:00* Test Item Value Reference Range Interpretation Comments Globulin (test code = 79527-0) 3.0 2.3-3.5 [facility] CenterAlbumin/Globulin Shyhj4616-90-48 06:26:00 * Test Item Value Reference Range Interpretation Comments Albumin/Globulin Ratio (test code = 1759-0) 1.0 0.8-2.0 [facility] CenterAlkaline Swaajxrdsyv5948-69-56 06:26:00* Test Item Value Reference Range Interpretation Comments Alkaline Phosphatase (test code = 6768-6) 64 40-150 [facility] CenterActivated Partial Thromboplast Time 2017-07-11 06:19:00* Test Item Value Reference Range Interpretation Comments Activated Partial Thromboplast Time (test code = 04821-9) 62.7 23.8-35.5 H [facility] CenterWhite Blood Kgihj9680-20-04 06:10:00* Test Item Value Reference Range Interpretation Comments White Blood Count (test code = 6690-2) 4.63 4.8-10.8 L [facility] CenterRed Blood Eelit3694-65-29 06:10:00* Test Item Value Reference Range Interpretation Comments Red Blood Count (test code = 789-8) 3.71 4.3-5.7 L [facility] CenterHemoglobin2018-02-26 06:10:00* Test Item Value Reference Range Interpretation Comments Hemoglobin (test code = 43496-6) 11.3 14.0-18.0 L [facility] CenterHematocrit2018-02-26 06:10:00* Test Item Value Reference Range Interpretation Comments Hematocrit (test code = 4544-3) 34.4 38.2-49.6 L [facility] CenterMean Corpuscular Bdnina5496-97-73 06:10:00* Test Item Value Reference Range Interpretation Comments Mean Corpuscular Volume (test code = 787-2) 92.7 81-99 [facility] CenterMean Corpuscular Bswnschbgy7617-39-48 06:10:00* Test Item Value Reference Range Interpretation Comments Mean Corpuscular Hemoglobin (test code = 785-6) 30.5 28-32 [facility] CenterMean Corpuscular Hemoglobin Concent 2017-07-11 06:10:00* Test Item Value Reference Range Interpretation Comments Mean Corpuscular Hemoglobin Concent (test code = 786-4) 32.8 31-35 [facility] CenterRed Cell Distribution Hoyeg1008-03-29 06:10:00* Test Item Value Reference Range Interpretation Comments Red Cell Distribution Width (test code = 80164-3) 15.0 11.7 -14.4 H [facility] CenterPlatelet Asqhn5074-44-60 06:10:00* Test Item Value Reference Range Interpretation Comments Platelet Count (test code = 777-3) 127 140-360 L [facility] CenterNeutrophils (%) (Auto)2017-07-11 06:10:00 * Test Item Value Reference Range Interpretation Comments Neutrophils (%) (Auto) (test code = 28904-9) 71.3 38.7-80.0 [facility] CenterLymphocytes (%) (Auto)2017-07-11 06:10:00 * Test Item Value Reference Range Interpretation Comments Lymphocytes (%) (Auto) (test code = 736-9) 15.8 18.0-39.1 L [facility] CenterMonocytes (%) (Auto)2017-07-11 06:10:00* Test Item Value Reference Range Interpretation Comments Monocytes (%) (Auto) (test code = 5905-5) 10.6 4.4-11.3 [facility] CenterEosinophils (%) (Auto)2017-07-11 06:10:00 * Test Item Value Reference Range Interpretation Comments Eosinophils (%) (Auto) (test code = 713-8) 1.5 0.0-6.0 [facility] CenterBasophils (%) (Auto)2017-07-11 06:10:00* Test Item Value Reference Range Interpretation Comments Basophils (%) (Auto) (test code = 706-2) 0.2 0.0-1.0 [facility] CenterIM GRANULOCYTES %2017-07-11 06:10:00* Test Item Value Reference Range Interpretation Comments IM GRANULOCYTES % (test code = IM GRANULOCYTES %) 0.6 0.0- 1.0 [facility] CenterNeutrophils # (Auto)2017-07-11 06:10:00* Test Item Value Reference Range Interpretation Comments Neutrophils # (Auto) (test code = 751-8) 3.3 2.1-6.9 [facility] CenterLymphocytes # (Auto)2017-07-11 06:10:00* Test Item Value Reference Range Interpretation Comments Lymphocytes # (Auto) (test code = 80292-0) 0.7 1.0-3.2 L [facility] CenterMonocytes # (Auto)2017-07-11 06:10:00* Test Item Value Reference Range Interpretation Comments Monocytes # (Auto) (test code = 742-7) 0.5 0.2-0.8 [facility] CenterEosinophils # (Auto)2017-07-11 06:10:00* Test Item Value Reference Range Interpretation Comments Eosinophils # (Auto) (test code = 711-2) 0.1 0.0-0.4 [facility] CenterBasophils # (Auto)2017-07-11 06:10:00* Test Item Value Reference Range Interpretation Comments Basophils # (Auto) (test code = 704-7) 0.0 0.0-0.1 [facility] CenterAbsolute Immature Granulocyte (auto 2017-07-11 06:10:00* Test Item Value Reference Range Interpretation Comments Absolute Immature Granulocyte (auto (savanah t code = Absolute Immature Granulocyte (auto) 0.03 0-0.1 [facility] CenterTroponin N2840-06-65 17:50:00* Test Item Value Reference Range Interpretation Comments Troponin I (test code = ILB0510) 5.367 0-0.300 H Elevated result called to Marilee Munoz/RN at 1747 on 07/10/17 by Jeffrey herrera.[facility] CenterCreatine Kinase SH3860-43-28 06:16:00* Test Item Value Reference Range Interpretation Comments Creatine Kinase MB (test code = 15806-5) 16.50 0-5.0 H [facility] CenterCreatine Mwtxmr0002-92-46 05:59:00* Test Item Value Reference Range Interpretation Comments Creatine Kinase (test code = 2157-6) 236 30-200 H [facility] CenterTriglycerides Stvqe2357-59-98 05:56:00* Test Item Value Reference Range Interpretation Comments Triglycerides Level (test code = 2571-8) 128 0-149 [facility] CenterCholesterol Zvkjx1891-98-53 05:56:00* Test Item Value Reference Range Interpretation Comments Cholesterol Level (test code = 2093-3) 149 0-199 Less than 200 mg/dL Low Rsag367 - 239 mg/dL Borderline Dywq149 m g/dl and greater High Risk [facility] CenterLDL Ilhzckonuac3247-82-05 05:56:00* Test Item Value Reference Range Interpretation Comments LDL Cholesterol (test code = 2089-1) 96 60-130 [facility] CenterHDL Kvhdejxgnwg4109-14-74 05:56:00* Test Item Value Reference Range Interpretation Comments HDL Cholesterol (test code = 2085-9) 27 40-60 L [facility] CenterCholesterol/HDL Qpmqa6067-27-44 05:56:00 * Test Item Value Reference Range Interpretation Comments Cholesterol/HDL Ratio (test code = 9830-1) 5.5 3.9-4.7 H [facility] CenterTriglycerides Zktzr3024-93-48 05:56:00* Test Item Value Reference Range Interpretation Comments Triglycerides Level (test code = 2571-8) 128 0-149 [facility] CenterCholesterol Ruokd2103-25-74 05:56:00* Test Item Value Reference Range Interpretation Comments Cholesterol Level (test code = 2093-3) 149 0-199 Less than 200 mg/dL Low Sshi091 - 239 mg/dL Borderline Adie975 m g/dl and greater High Risk [facility] CenterLDL Yuzjqmhsqbv4840-59-91 05:56:00* Test Item Value Reference Range Interpretation Comments LDL Cholesterol (test code = 2089-1) 96 60-130 [facility] CenterHDL Ugvowgopusf3361-95-86 05:56:00* Test Item Value Reference Range Interpretation Comments HDL Cholesterol (test code = 2085-9) 27 40-60 L [facility] CenterCholesterol/HDL Elzxn8050-28-90 05:56:00 * Test Item Value Reference Range Interpretation Comments Cholesterol/HDL Ratio (test code = 9830-1) 5.5 3.9-4.7 H [facility] CenterProthrombin Eqyn1217-45-67 05:54:00* Test Item Value Reference Range Interpretation Comments Prothrombin Time (test code = 5902-2) 14.0 11.9-14.5 [facility] CenterProthromb Time International Ratio 2017-07-10 05:54:00* Test Item Value Reference Range Interpretation Comments Prothromb Time International Ratio (test code = 6301-6) 1.17 Oral Anticoagulant Therapy INR Values:1. Low Intensity Therapy 1.5 - 2.02 . Moderate Intensity Therapy 2.0 - 3.03. High Intensity Therapy(1) 2.5 - 3. 54. High Intensity Therapy(2) 3.0 - 4.05. Panic Value INR > 5.0 [facility]2018-01-27 18:34:00* Test Item Value Reference Range Interpretation Comments Amylase Level (test code = 1798-8) 45 25-125 [facility]2018-01-27 18:34:00* Test Item Value Reference Range Interpretation Comments Lipase (test code = 3040-3) 4 8-78 L [facility]2018-01-27 18:34:00* Test Item Value Reference Range Interpretation Comments Amylase Level (test code = 1798-8) 45 25-125 [facility]2018-01-27 18:34:00* Test Item Value Reference Range Interpretation Comments Lipase (test code = 3040-3) 4 8-78 L [facility]2018-01-27 18:34:00* Test Item Value Reference Range Interpretation Comments Amylase Level (test code = 1798-8) 45 25-125 [facility]2018-01-27 18:34:00* Test Item Value Reference Range Interpretation Comments Lipase (test code = 3040-3) 4 8-78 L [facility]2018-01-27 18:34:00* Test Item Value Reference Range Interpretation Comments Amylase Level (test code = 1798-8) 45 25-125 [facility]2018-01-27 18:34:00* Test Item Value Reference Range Interpretation Comments Lipase (test code = 3040-3) 4 8-78 L [facility]2018-01-27 18:34:00* Test Item Value Reference Range Interpretation Comments Amylase Level (test code = 1798-8) 45 25-125 [facility]2018-01-27 18:34:00* Test Item Value Reference Range Interpretation Comments Lipase (test code = 3040-3) 4 8-78 L [facility]2018-01-27 18:34:00* Test Item Value Reference Range Interpretation Comments Amylase Level (test code = 1798-8) 45 25-125 [facility] CenterLipase2018-01-27 18:34:00* Test Item Value Reference Range Interpretation Comments Lipase (test code = 3040-3) 4 8-78 L [facility] CenterAmylase Xnygm9193-64-79 18:34:00* Test Item Value Reference Range Interpretation Comments Amylase Level (test code = 1798-8) 45 25-125 [facility] CenterLipase2018-01-27 18:34:00* Test Item Value Reference Range Interpretation Comments Lipase (test code = 3040-3) 4 8-78 L [facility] CenterUrine OVB5775-58-30 18:57:00* Test Item Value Reference Range Interpretation Comments Urine WBC (test code = 5821-4) 0-5 0-5 [facility] CenterU[facility] DMJ2685-20-16 18:57:00* Test Item Value Reference Range Interpretation Comments Urine RBC (test code = 48949-0) NONE 0-5 [facility] CenterU[facility] Nljdiaaf4820-67-82 18:57:00* Test Item Value Reference Range Interpretation Comments Urine Bacteria (test code = 57137-9) NONE NONE [facility] CenterUrine Epithelial Qbflg7155-17-36 18:57:00 * Test Item Value Reference Range Interpretation Comments Urine Epithelial Cells (test code = 53850-0) RARE NONE [facility] CenterU[facility] Twnww9334-36-42 18:45:00* Test Item Value Reference Range Interpretation Comments Urine Color (test code = 5778-6) YELLOW YELLOW [facility] CenterU[facility] Ritkrnl5532-54-01 18:45:00* Test Item Value Reference Range Interpretation Comments Urine Clarity (test code = 17775-6) CLEAR CLEAR [facility] CenterUrine Specific Hcbegzs7078-95-24 18:45:00 * Test Item Value Reference Range Interpretation Comments Urine Specific [place] (test code = 5811-5) 1.020 1.010-1.02 5 [facility] CenterUrine jG8648-50-48 18:45:00* Test Item Value Reference Range Interpretation Comments Urine pH (test code = 33572-2) 5 5-7 [facility] CenterU[facility] Leukocyte Dhiwxyyj9607-47-94 18:45:00* Test Item Value Reference Range Interpretation Comments Urine Leukocyte Esterase (test code = 5799-2) TRACE NEGATIVE H [facility] CenterU[facility] Hguesad6036-86-40 18:45:00* Test Item Value Reference Range Interpretation Comments Urine Nitrite (test code = 66870-4) NEGATIVE NEGATIVE [facility] CenterU[facility] Aabbbfe7678-54-72 18:45:00* Test Item Value Reference Range Interpretation Comments Urine Protein (test code = 5804-0) NEGATIVE NEGATIVE [facility] Glucose (UA)2017-05-02 18:45:00* Test Item Value Reference Range Interpretation Comments Urine Glucose (UA) (test code = 2349-9) NEGATIVE NEGATIVE [facility] Tdboiwa4928-68-38 18:45:00* Test Item Value Reference Range Interpretation Comments Urine Ketones (test code = 44641-8) NEGATIVE NEGATIVE [facility] Vyspywiehxfq0986-21-85 18:45:00* Test Item Value Reference Range Interpretation Comments Urine Urobilinogen (test code = 53648-2) 0.2 0.2-1 [facility] Zgltrvhhg4120-14-59 18:45:00* Test Item Value Reference Range Interpretation Comments Urine Bilirubin (test code = 1978-6) NEGATIVE NEGATIVE [facility] Wwkjb4818-18-10 18:45:00* Test Item Value Reference Range Interpretation Comments Urine Blood (test code = 82328-5) NEGATIVE NEGATIVE [facility] CenterD-Dimer Quantitative (PE/DVT)2017-01-25 15:45:00* Test Item Value Reference Range Interpretation Comments D-Dimer Quantitative (PE/DVT) (test code = 89607-3) 0.77 0. 00-0.45 H [facility] CenterD-Dimer Quantitative (PE/DVT)2017-01-25 15:45:00* Test Item Value Reference Range Interpretation Comments D-Dimer Quantitative (PE/DVT) (test code = 76615-7) 0.77 0. 00-0.45 H [facility] CenterD-Dimer Quantitative (PE/DVT)2017-01-25 15:45:00* Test Item Value Reference Range Interpretation Comments D-Dimer Quantitative (PE/DVT) (test code = 15700-9) 0.77 0. 00-0.45 H [facility] CenterD-Dimer Quantitative (PE/DVT)2017-01-25 15:45:00* Test Item Value Reference Range Interpretation Comments D-Dimer Quantitative (PE/DVT) (test code = 84713-1) 0.77 0. 00-0.45 H [facility] CenterB-Type Natriuretic Tbawkcp5500-20-11 14:11:00* Test Item Value Reference Range Interpretation Comments B-Type Natriuretic Peptide (test code = 65658-3) 17.7 0-100 [facility] CenterB-Type Natriuretic Gfiizlg1541-75-73 14:11:00* Test Item Value Reference Range Interpretation Comments B-Type Natriuretic Peptide (test code = 69950-9) 17.7 0-100 [facility] CenterCHEST [facility]INGLE ([facility]) [place] [address] Patient Name: TEDDY LESTER MR #: [id number] : 1945 Age/Sex: 72/M Req #: [id number] Adm Physician: Ordered by: RUBEN GEORGES [employer]EVEL PROJECT MANAGER Report #: [id number] Location: ER Room/Bed: Procedure: [id number] DX/CHEST SINGLE (PORTABLE) Exam Date: 10/08/17 Exam Time: [address] ATUS: Signed EXAMINATION: CHEST SINGLE (PORTABLE) INDICATION: COMPARISON: Chest radiograph 10/01/[address] 07/10/2017 FINDINGS: AP view TUBES and LINES: None. LUNGS: Lungs are well inflated. The right costophrenic sulcus is out of the field of view. Javed gs are clear. There is no evidence of pneumonia or pulmonary edema. PLE URA: No pleural effusion or pneumothorax. HEART AND MEDIASTINUM: Tortuous aorta. The cardiomediastinal silhouette is unremarkable. BONES AND S OFT TISSUES: No acute osseous lesion. Median sternotomy wires. Soft tissues are unremarkable. UPPER ABDOMEN: No free air under the diaphragm. IMPRESSION: No acute thoracic abnormality. Signed by: DR. Jamel denis MD on 10/08/2017 4:26 PM Dictated By: JAMEL JOSE MD 25 Transcribed By: ERICH on 1625 COPY TO: RUBEN GEORGES [employer]EVEL PROJECT MANAGER US ABDOMEN COMPLETE [place] [address] Patient Name: TEDDY LESTER MR #: [id number] : 1945 Age/Sex: 72/M Req #: [id number] Adm Physician: MOODY LANE MD Ordered by: MOODY LANE MD Report #: [id number] Lo cation: [facility] Room/Bed: [place] [address] Procedure: [id number] US/US ABDOMEN COMPLETE Exam Date: Exam Time: REPORT STATUS: Signed PROCEDURE: ABDOMINAL ULTRASOUND COMPARISON: CT chest 09/28/2017. INDICATIONS: RUQ PAIN FINDINGS: Liver: 18.4 cm in length in the right midclavicular line. Normal hepatic parenchymal ech ogenicity. No focal mass. Main portal vein: 1 cm in caliber. Hepatopedal flow . Gallbladder: Surgically removed. Common Bile Duct: 0.5 cm in caliber. No echogenic filling defect. Right kidney: 10.5 cm in length. 2 x 1.5 x 1.4 cm round, anechoic structure in the interpolar region without internal va scularity or solid component. No solid mass, echogenic calculi, or hydronephr osis. Increased parenchymal echogenicity. Left kidney: 11.2 cm in length. 4 .1 x 3 x 3.7 cm round, anechoic structure in the interpolar region without in ternal vascularity or solid component. Smaller lesion of similar sonographic characteristics in the lower pole measuring 1.9 x 1.7 x 1.8 cm. No solid mass , echogenic calculi, or hydronephrosis. Increased parenchymal echogenicity . Spleen: 8.1 cm in length. Uniform parenchyma echotexture. Pancreas: P oorly visualized secondary to overlying bowel gas. Inferior vena cava: Pat ent centrally. Poorly visualized peripherally secondary to overlying bowel ga s. Aorta: Non-aneurysmal proximally. Poorly visualized distally secondary t o overlying bowel gas. Ascites: None. CONCLUSION: Status post c holecystectomy with normal caliber common bile duct. Bilateral simple gilson l cysts. Increased renal cortical echogenicity suggestive of medical renal disease. Dictated by: Gregorio Gamboa M.D. on 10/03/2017 at 8: 21 Electronically approved by: Gregorio Gamboa M.D. on 10/03/2017 at 8:21 Dictated By: GREGORIO GAMBOA MD 0 Transcribed By: AMERICO on 10/03/17820 COPY TO: MOODY LANE MD [facility] (PORTABLE) [place] [address] Patient Name: TEDDY LESTER MR #: [id number] : 1945 Age/Sex: 72/M Req #: [id number] Adm Physician: MOODY LANE MD Ordered by: MIRANDA AARON NP Report #: [id number] Location: [facility] Room/Bed: [facility] 198-1 Procedure: [id number] DX/CHEST SINGLE (PORTABLE) Exam Date: 10/01/17 Exam Time: 05 REPORT STATUS: Signed EXAMINATION: CHEST SINGLE (PORTABLE) INDICATION: Chest pain COMPARISON: 09/30/2017 FINDINGS: TUBES and LINES: None. LUNGS: Lungs are not well inflated. There are bibasilar atelectasis. There is no evidence of pneumonia or pulmo nary edema. PLEURA: No pleural effusion or pneumothorax. HEART AND ME DIASTINUM: The cardiomediastinal silhouette is remarkable for prior sternotom y. There are atherosclerotic calcifications within the aorta. BONES AND SOF T TISSUES: No acute osseous lesion. Soft tissues are unremarkable. UPPE R ABDOMEN: No free air under the diaphragm. IMPRESSION: No acute tho racic abnormality. Signed by: Dr. Chapito Mukherjee M.D. on 10/01/2017 5:54 AM Dictated By: CHAPITO GONZALEZ MD Transcribed By: ERICH on 10/01/1754 COPY TO: MIRANDA AARON NP CHEST 2 VIEWS [place] [address] Patient Name: TEDDY LESTER MR #: [id number] : 1945 Age/Sex: 72/M Req #: [id number] Adm Physician: Ordered by: MIRANDA AARON NP Report #: [id number] Location: ER Room/Bed: Procedure: [id number] DX/CHEST 2 VIEWS Exam Date: 09/30/17 Exam Time: 939 REPORT STATUS: Signed PROCEDURE: X-RAY CHEST, TWO VIEWS COMPARISON: None. INDICATIONS: PULMONARY EMBOLISM FINDINGS: LUNGS: No consolidations or edema. The lungs are hyperexpanded. PLEURA: No effusions or pneumothorax. HEART T MEDIASTINUM: The heart is within normal size-limits. Sternotomy wire barnes tures. Aortic tortuosity. BONES T SOFT TISSUES: No acute findings. Ve rtebroplasty cement within multiple thoracic and lumbar spine vertebral abner s. CONCLUSION: No acute thoracic abnormality. Fredi Washington D.O. Dictated by: Jigar Washington D.O. on 09/30/2017 at 10:08 Electronically approved by: Jigar Washington D.O. on 09/30/2017 at 10:08 Dictated By: JIGAR WASHINGTON DO 1008 Transcribed By: AMERICO on 09/30/17 1008 COPY TO: MIRANDA AARON NP CT CHEST W [place] [address] Patient Name: TEDDY LESTER MR #: [id number] : 1945 Age/Sex: 72/M Req #: [id number] Adm Physician: Ordered by: RAND KENT MD Report #: [id number] Location: CT Room/Bed: Procedure: [id number] CT/CT CHEST W Exam Date: 09/28/17 Exam Time: 1720 REPORT STATUS: Signed PROCEDURE: CT scan of the chest WITH intravenous contrast, using pulmonary angiogram protocol. TECHNIQUE: The chest was scanned utilizing a mult idetector helical scanner from the lung apex through the level of the adrenal glands after the IV administration of 78 cc of Isovue 370. Coronal and sagi ttal multiplanar reformations were obtained. Pulmonary angiogram protocol was performed. Total DLP: 579.69 mGy-cm COMPARISON: CT chest 01/26/20. INDICATIONS: CHEST PAIN FINDINGS: Lines/tubes: Postoperati ve changes of CABG with median sternotomy wires, unfused sternal bones, and s ubsternal edema and fat stranding. No fluid collections.. Lungs and Air ways: Good contrast bolus. There is acute nonocclusive pulmonary emboli e xtending from the right pulmonary artery and extending to the right middle an d right lower lobe arteries. Questionable filling defect of one of the subseg mental branches of the left upper lobe (series 2 image 54). Biapical pl eural-parenchymal scarring. Stable nodularity of the left fissure along the barnes perior aspect, likely related to prior infection. Mild scarring in the apical segment of the right lower lobe, which is unchanged. Unchanged since pleural linear bands, consistent with mild/early fibrosis. No focal consolidations. Pleura: The pleural spaces are clear. Heart and mediastinum: The thy roid gland is normal. No axillary lymphadenopathy. Extensive calcified medias tinal and bilateral hilar lymph nodes consistent with old such as TB. Largest measures 1.2 cm in the right paratracheal (series 2 image 47), unchanged. The heart and pericardium are within normal limits. Small amount of anterior pericardial fluid related to recent surgery. Mild straightening of the inter ventricular septum. Moderate to severe tri-vessel coronary artery calcificati ons. Main pulmonary artery measures 2.6 cm. Ascending aorta measures 3.8 cm. Soft tissues: Normal. Abdomen: Limited contrast-enhanced views of the upper abdomen show no abnormality within the visualized liver, spleen, panc reas, or right kidney. The adrenal glands are normal. Small sliding hiatal he rnia with associated peritoneal fat is again seen and unchanged. 4.1 cm left renal cyst is grossly stable. Bones: The visualized bony thorax is with in normal limits. IMPRESSION: 1. Acute nonocclusive pulmonary embo li in the right lung extending into the right middle and right lower lobe art eries. Questionable involvement of one the subsegmental branches of the left upper lobe. 2. Calcified mediastinal and hilar lymph nodes consistent with old granulomatous disease. Results were relayed to the call center by Dr. Zamarripa to reach Dr. Kent on 09/28/2017 at 6:40 PM. Critical results were called into critical result hotline. At 7:[address] Kent was reached on her cell phone by Dr. Zamarripa. Dictated by: Asa Zamarripa M.D. on 09/28/2017 at 1 9:06 Electronically approved by: Asa Zamarripa M.D. on 09/28/2017 at 19:06 Dictated By: ASA ZAMARRIPA MD 05 COPY TO: RAND KENT MD CTA CHEST [place] [address] Patient Name: TEDDY LESTER MR #: [id number] : 1945 Age/Sex: 72/M Req #: [id number] Adm Physician: MONIQUE THOMPSON MD Ordered by: RAND KENT MD Report #: [id number] Location: ICU Room/Bed: ICU [facility] Procedure: [id number] CT/CTA CHEST Exam Date: 07/10/17 Exam Time: 1640 REPORT STATUS: Signed EXAM: CTA OF THE THORACIC AORTA INDICATION: Ch est pain COMPARISON: None. TECHNIQUE: Multi-detector CT technology was employed. CTA of the chest was performed , after the administration of IV contrast. For optimization of anatomic evaluation, multiplanar reconstruction, maximum intensity projections, and advanced 3-D off-line postprocessing were performed on a dedicated stand-alone workstation under the direct supervision of the interpreting physician. IV CONTRAST: 100 mL o f Isovue-370 ORAL CONTRAST: None COMPLICATI ONS: None RADIATION DOSE: Total DLP: 541.70 mGy*cm Estimated effective dose: (DLP x 0.015 x size factor) mSv CTDIvol has been reviewed . It is below the limits set by the Radiation Protocol Committee (RPC). F or optimization of anatomic evaluation, multiplanar reconstruction, maximum in tensity projections, and advanced 3-D off-line postprocessing were performed o n a dedicated stand-alone workstation under the direct supervision of the inte rpreting physician. FINDINGS: Potential study limitations: None. CHEST: There are calcified mediastinal and hilar lymph nodes, indicating heale d granulomatous disease. There are noncalcified right paratracheal lymph nodes which measure up to 1.2 cm and are nonspecific. Normal heart size. No pe ricardial effusion. There are scattered calcified granulomas in both lungs. Extensive scarlike opacities are seen in the lung apices and bases. The cardiac chambers demonstrate normal atrioventricular and ventriculoarterial co ncordance, and systemic and pulmonary venous return. The cardiac chamber size s appear normal. The coronary arteries have normal origins and courses. There are extensive coronary artery calcifications. This study was not optimized for coronary artery evaluation. VASCULAR WITH ADVANCED 3-D OFF-LINE POSTPROCE SSING: Aortic valve morphology is incompletely assessed on this non-gated exam ination. The thoracic aorta is normal in course, caliber, and contour. The re is mixed calcific and soft plaque within the thoracic aorta. There is no ac [place] aortic pathology, such as dissection, intramural hematoma, or contained ru pture. There is a common origin of the brachiocephalic and left common carotid artery.. All of the arch branch vessels appear widely patent in their proximal portions. [employer] dimensions of the thoracic aorta are as follows: 3.0 cm at the aortic annulus (series 401, image 54) 3.9 cm at the sinuses of Valsalva (the sinotubular junction is preserved, series 41, image 54) 3.6 cm at the mid ascending aorta (series 3, image 57) 3.6 cm at the distal ascending aorta (series 3, image 49) 3.1 cm at the mid transverse arch (series 3, image 41) 3.0 cm at the proximal descending thoracic aorta (series 3, image 55) 2.9 cm at the diaphragmatic hiatus (series 3, image 116). LIMITED ABDOMEN: Limited images of the upper abdomen reveal no specific abnormality. BONES: Multilevel degenerative changes of thoracic spine with vertebroplasty changes at T11 and T12. IMPRESSION: Mixed atherosclerotic plaque of the thoracic aorta, but no aortic dissection or aneurysm. Kleber Soto MD Signed by: Dr. Kleber Soto M.D. on 07/10/2017 5:29 PM Dictated By: KLEBER SOTO MD 28 COPY TO: EBONIE KENT MD CHEST SINGLE (PORTABLE) [place] [address] Patient Name: TEDDY LESTER MR #: [id number] : 1945 Age/Sex: 72/M Req #: [id number] Adm Physician: Ordered by: YVETTE HERMAN MD Report #: [id number] Location: ER Room/Bed: Procedure: [id number] DX/CHEST SINGLE (PORTABLE) Exam Date: 07/09/17 Exam Time: [address] ATUS: Signed EXAM: CHEST SINGLE (PORTABLE) DATE: 07/09/2017 8:20 AM INDICATION: Short of breath COMPARISON: None FINDINGS: Body habitus and underpenetration limit evaluation. The heart is not significantly enlarged . Perihilar haziness noted, however. Evaluation for pneumothorax limited by tari mayberry. Minimal biapical scarring and probable basilar atelectasis present. IMPRESSION: Within limitations of technique, no definite acute finding. M ild edema possible. Signed by: Dr. 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 Signed by: Dr. Lisa Cintron M.D. on 06/14/2017 7:38 AM ORIGINAL REPORT EXAM: CT Abdomen and Pelvis WITHOUT contrast INDICATION: Right CVA tenderness COMPARISON: CT abdomen and pelvis from TECHNIQUE: Abdomen and pelvis were scanned utilizing a multidetector h elical scanner from the lung base to the pubic symphysis without administratio n of IV contrast. Absence of intravenous contrast decreases sensitivity for de tection of focal lesions and vascular pathology. Coronal and sagittal reformat ions were obtained. Routine protocol was performed. IV CONTRAST : None. ORAL CONTRAST: Water RADIATION DOSE: Total D LP: 684.1 mGy*cm Estimated effective dose: (DLP x 0.015 x size fa ctor) mSv COMPLICATIONS: None FINDINGS: LINES and TUBES: None. LOWER THORAX: Emphysema. Small hiatal hernia. HEPATOBILIARY: No focal hepatic lesions. No biliary ductal dilation. GALLBLADDER: Cho lecystectomy. SPLEEN: No splenomegaly. PANCREAS: No focal masses or d uctal dilatation. ADRENALS: No adrenal nodules KIDNEYS/URETERS: No hydronephrosis. Unchanged 3 cm left and 1.4 cm right renal cyst. Mild bila teral cortical atrophy with surrounding fat stranding. No stones. GI TRA CT: No abnormal distention, wall thickening, or evidence of bowel obstruction. Diverticulosis of the sigmoid colon. PELVIC ORGANS/BLADDER: Prostate calcifications. Circumferential wall thickening of the urinary bladder may re late to poor distention. LYMPH NODES: No lymphadenopathy. VESSELS: Unr emarkable. PERITONEUM / RETROPERITONEUM: No free air or fluid. BONES: Postprocedural changes of vertebroplasty and surgical changes to the right sac roiliac joint. Stable multilevel lower thoracic and lumbar spine compression f ractures. SOFT TISSUES: Unremarkable. IMPRESSION: 1. S table diffuse diverticulosis throughout the colon without diverticulitis. 2 . Mild bilateral cortical atrophy without hydronephrosis or calcified stones. Signed by: Dr. Lisa Cintron M.D. on 06/11/2017 3:27 PM Dic tated By: LISA CINTRON MD 0738 Transcribed By: ERICH on 06/11/17 1527 COPY TO: CAM ROSARIO NP CT ABDOMEN/PELVIS [place] [address] Patient Name: TEDDY LESTER MR #: [id number] : 1945 Age/Sex: 72/M Req #: [id number] Adm Physician: Ordered by: KELY LESTER MD Report #: [id number] Location: ER Room/Bed: Procedure: [id number] CT/CT ABDOMEN/PELVIS WO Exam Date: 05/02/17 Exam Time: 2104 REPORT STATUS: Signed EXAM: CT ABDOMEN AND PELVIS without IV CONTRAST DATE: 2016 8:35 PM Time stamp on Exam: 2216 hours INDICATION: Left lower quadrant pain COMPARISON: CT of the abdomen and pelvis April 15, 2017 TECHNIQUE: T he abdomen and pelvis were scanned using a multidetector helical scanner. Russ nal and sagittal reformations were obtained. Routine protocol performed. IV Contrast: None Oral Contrast: Gastrografin CTDIvol has been reviewed. It is below the limits set by the Radiation Protocol Committee (RPC). FINDINGS: LOWER THORAX: Emphysematous changes LIVER: No masses BILIARY: Cholecys tectomy SPLEEN: No masses PANCREAS: Pancreatic atrophy ADRENALS: No nodules KIDNEYS: No nephroureterolithiasis or hydronephrosis. Nonspecific yasir ateral perinephric fat stranding, likely related to chronic medical renal dise ase. Stable bilateral renal cysts. GI TRACT: No distention, wall thickeni ng or evidence of obstruction. Normal appendix. The sigmoid colon is redundant . Sigmoid colon diverticulosis. VESSELS: Mild calcified atherosclerotic beulah nges without aneurysm. PERITONEUM/RETROPERITONEUM: No free air or fluid LYMP H NODES: No lymphadenopathy REPRODUCTIVE ORGANS: Unremarkable BLADDER: St able mild circumferential thickening of the bladder wall, which is incompletel y distended. SOFT TISSUES: Unremarkable BONES: Postprocedural changes of vertebroplasty and surgical changes to the right sacroiliac joint. Stable mult ilevel lower thoracic and lumbar spine compression fractures. IMPRESSION: No CT findings to explain patient's acute left lower quadrant pain. Inte rval resolution of prior sigmoid colon diverticulitis. Signed by: Dr. Nerissa Charles M.D. on 05/02/2017 10:55 PM Dictated By: NERISSA CHARLES MD 54 Transcribed By: MATT FRAGOSO on 05/02/172254 COPY TO: KELY LESTER MD CT ABDOMEN/PELVIS W [place] [address] Patient Name: TEDDY LESTER MR #: [id number] : 1945 Age/Sex: 72/M Req #: [id number] Adm Physician: Ordered by: KELY LESTER MD Report #: [id number] Location: ER Room/Bed: Procedure: [id number] CT/CT ABDOMEN/PELVIS W Exam Date: Exam Time: REPORT STATUS: Antonieta d EXAM: CT Abdomen and Pelvis WITH contrast INDICATION: Diverticulitis COMPARISON: 08/02/2016 TECHNIQUE: Abdomen and pelvis were scanned utilizing a [employer] helical scanner from the lung base to the pubic symphysis after a dministration of IV contrast. Coronal and sagittal reformations were obtained. Routine protocol was performed. Scan was performed when during portal venous phase. IV CONTRAST: 100 mL of Isovue-[address]: Gastrografin RADIATION DOSE: Total DLP: 732.58 mGy*cm Estimated effective dose: (DLP x 0.015 x size factor) mSv C OMPLICATIONS: None FINDINGS: LINES and TUBES: None. LOWER THORAX: Unremarkable HEPATOBILIARY: No focal hepatic lesions. No biliary wilfred sophia dilation. GALLBLADDER: There are cholecystectomy clips. SPLE EN: No splenomegaly. PANCREAS: No focal masses or ductal dilatation. ADRENALS: No adrenal nodules KIDNEYS/URETERS: Kidneys enhance symmetr ically. No hydronephrosis. There are bilateral renal cysts, the largest on th e left measuring 3.8 cm in diameter No stones. GI TRACT: Focal circumfer ential wall thickening of the mid sigmoid colon best visualized on series 2, i mage 64 with pericolic fat stranding. There are additional diverticula within the colon. PELVIC ORGANS/BLADDER: Unremarkable. LYMPH NODES: No lymph adenopathy. VESSELS: There is moderate atherosclerotic disease in the aorta and major arterial branches. PERITONEUM / RETROPERITONEUM: No free air or fluid. BONES: There are degenerative changes in the lumbar spine. Diffuse demineralization. There are 3 metallic screws along the right SI joint. Mul tiple levels of vertebroplasty noted along the thoracolumbar spine from T12 th rough L5 demonstrating compression deformities SOFT TISSUES: Unremarkable. IMPRESSION: 1. Findings in the mid sigmoid colon are compat ible with diverticulitis. Follow-up after treatment with colonoscopy is recomm ended 2. Bilateral renal cysts. Signed by: Dr. Chapito Mukherjee M.D. on 04/15 5:32 AM Dictated By: CHAPITO GONZALEZ MD 1 Transcribed By: ERICH on 531 COPY TO: KELY LESTER MD CT CHEST W [place] [address] Patient Name: TEDDY LESTER MR #: [id number] : 1945 Age/Sex: 71/M Req #: [id number] Adm Physician: Ordered by: YVETTE HERMAN MD Report #: [id number] Location: ER Room/Bed: Procedure: [id number] CT/CT CHEST W Exam Date: 01/25/17 Exam Time: 1740 REPORT STATUS: Signed EXAM: CT Chest WITH contrast 01/25/2017 4:10 PM INDICATION: Chest pain. Pulm onary malaise and? COMPARISON: None TECHNIQUE: Chest was scanned [employer] g a multidetector helical scanner from the lung apex through the level of the adrenal glands without administration of IV contrast. Coronal and sagittal ref ormations were obtained. Pulmonary embolism protocol was performed. IV CONTRAST: 100 mL of Isovue-370 RADIATION DOSE: Total DLP: 622 .30 mGy*cm Estimated effective dose: (DLP x 0.014 x size factor) m Sv COMPLICATIONS: None FINDINGS: LINES/ TUBES: None. LUNGS AND AIRWAYS: The filling defects within the pulmonary arteries bilatera lly. Biapical fibronodular changes with calcifications suggesting healed granu lomatous disease. Mild diffuse coarsening of the pulmonary interstitium partic ularly in the lower lobes likely reflect senescent fibrosis. PLEURA: No ple ural effusion or pneumothorax. HEART AND MEDIASTINUM: No mediastinal, hilar or axillary lymphadenopathy. The heart is normal in size.. There is no pericardial effusion. Multivessel coronary artery calcifications. Lipomatosis of the mediastinum. Small calcified lymph nodes scattered throughout the media stinum. UPPER ABDOMEN: Limited non-contrast views of the upper abdomen show a 4.4 cm cyst in the posterior interpolar region of the left kidney. An 8 mm nonspecific calcification posterior to the portal splenic confluence on less i mage #123. The adrenal glands are normal. Small hiatal hernia. BONES: Gen eralized osteopenia. Status post kyphoplasty of T12. Compression deformities o f T9, T10 and T11. SOFT TISSUES: Unremarkable. IMPRESSION: 1. No evidence of pulmonary embolism as per clinical query. 2. Coronary artery d isease. Signed by: Dr. Rock Hayes M.D. on 01/25/2017 6:33 PM Dictated By: MARISEL HAYES MD, MD 32 Transcribed By: ERICH on 01/25/171832 COPY TO: YVETTE HERMAN MD CHEST SINGLE (PORTABLE) [place] [address] Patient Name: TEDDY LESTER MR #: [id number] : 1945 Age/Sex: 71/M Req #: [id number] Adm Physician: Ordered by: YVETTE HERMAN MD Report #: [id number] Location: ER Room/Bed: Procedure: [id number] DX/CHEST SINGLE (PORTABLE) Exam Date: Exam Time: REPORT STATUS: Signed PROCEDURE: A single AP view of the chest. COMPARISON: [facility], DX, CHEST SINGLE (NOT PORTABLE), 05/13/2016, 21:27. INDICATI ONS: CHEST PAIN FINDINGS: Lines/tubes: None. Lungs: The socrates ngs are well inflated and clear. There is no evidence of pneumonia or pulmona ry edema. Pleura: There is no pleural effusion or pneumothorax. Hea rt and mediastinum: Tortuous thoracic aorta. Scalloping of the right hemidiap hragm is again observed. Bones: No acute bony abnormality. IMPRESSI ON: 1. No acute cardiopulmonary disease. Rock Hayes M.D. Dictated by: Rock Hayes M.D. on 01/25/2017 at 16:06 Electronically approved by: Rock Hayes M.D. on 01/25/2017 at 16:06 Dictated By: MARISEL HAYES MD, MD 1606 Transcribed By: AMERICO on 01/25/17 1606 COPY TO: YVETTE HERMAN MD
[2019-10-17] MEDS ORDERED: DICYCLOMINE HCL 10 MG CAP ONE (21:11)
[2019-10-17] MEDS ORDERED: DICYCLOMINE HCL 20 MG TAB PO ONE (21:15)
[2019-10-17] MEDS ORDERED: SODIUM CHLORIDE 0.9% 1000ML 1,000 ML IV SCH (22:30)
--- NOTE | 2019-10-17 22:52 | NUR ---
REPORT TO ANH RESTREPO
--- NOTE | 2019-10-18 00:29 | Diagnostic Imaging Report ---
CT Abdomen and Pelvis without contrast INDICATION: ^lower abdominal pain, constipation ^[id number] ^[id number] TECHNIQUE: Thin collimation axial images obtained from the diaphragm to the level of the pubic symphysis without nonionic intravenous contrast. Dose reduction techniques used: Automated exposure control, adjustment of the mAs and/or kVp according to patient size, standardized low-dose protocol, and/or iterative reconstruction technique. RADIATION DOSE: Total DLP: 1224.15 mGy*cm Estimated effective dose: (DLP x 0.015 x size factor) mSv CTDIvol has been reviewed. It is below the limits set by the Radiation Protocol Committee (RPC). COMPARISON: CT abdomen/pelvis 08/21/2019. ABDOMEN FINDINGS: Lung Bases: Diffuse hyperinflation. Subcentimeter calcified granuloma in the right lower lobe. Subcentimeter calcified granuloma in the lingular abutting the pleura. No infiltrates or soft tissue nodules. Heavy calcifications of the coronary arteries. No hernia megaly. Small hiatal hernia. Tortuous descending thoracic aorta. Liver: Lobulated contours are redemonstrated. Mildly decreased attenuation suggestive of steatosis. No mass. Gallbladder: Absent. No ductal dilatation. Pancreas: Diffusely atrophic without mass or ductal dilatation. Spleen: Normal size without mass. Adrenal Glands: No evidence for mass. Kidneys: Right: No renal calculus. Multiple low attenuating cortical lesions measure up to 1.5 cm and are grossly stable. No hydronephrosis. Left: No renal calculus. Multiple low attenuating cortical lesions measure up to 3.8 cm and are grossly stable. No hydronephrosis. Lymph Nodes: No lymphadenopathy. Calcified subcentimeter lymph nodes in the neil hepatis are stable. Aorta: Diffusely calcified. There are separate origins of the common hepatic and splenic arteries. A stent in the SMA is stable. PELVIS FINDINGS: Bowel: Stomach: Normal. Small Bowel: Normal in caliber with normal wall thickness. Large Bowel: Diverticulosis coli, predominantly in the sigmoid colon. No associated inflammation. No significant stool burden in the large bowel. There is fluid distention of the proximal ascending colon without dilatation. Mild amount of stool from the splenic flexure to the proximal descending colon. No pericolonic inflammation.. Appendix: Normal. Bladder: Circumferential mural thickening. Ureters: No ureteral dilatation or calculus. Prostate: Heavy calcifications. Mild prostatomegaly. Peritoneum/retroperitoneum: No free fluid or fluid collection.. Bones: Diffuse demineralization. Visualized median sternotomy is well-healed. Multilevel vertebroplasty changes from T11 to L4 are redemonstrated. Untreated compression fracture of T10 is stable. No new compression deformities. No listhesis. Fusion hardware across the right SI joint is stable. Soft tissues: Umbilical hernia has an aperture of 9 mm and contains a knuckle of small bowel. This is stable. No fluid in the hernia sac. IMPRESSION: 1. No large stool burden. Diverticulosis coli. Stable small bowel containing umbilical hernia. No evidence for bowel obstruction or inflammation. 2. Mild steatosis. 3. Bilateral renal cortical lesions are suggestive of cysts. No evidence of renal calculus or obstructive uropathy. 4. Diffuse bladder wall thickening suggestive of outlet obstruction from prostate hypertrophy. Signed by: Dr. Ana Kulkarni MD on 10/18/2019 12:26 AM
--- NOTE | 2019-10-18 00:39 | Emergency Department Note ---
History of Present Illnes History of Present Illness Chief Complaint: Abdominal Complaints History of Present Illness This is a 74 year old male with history of ASCVD s/p CABG x 4 with subsequent stent placement, HTN, hyperlipidemia and GERD, who presents with the onset of mid to lower abdominal pain that started @ 3 hour [employer]. Pt state shta the had a stress test this morning (10/17/2019) without any difficulty, and then ate a sandwich after the study was completed. He states that he felt "full and bloated" and drank a bottle of Magnesium citrate, since he hasn't had a significant BM in @ 10 days. After he took the Magnesium Citrate, he developed "severe abdominal cramping" and did not have a BM. He states that he typically has a BM within 3-4 hours of taking the Magnesium Citrate. He is concerned that he might have "diverticulitis," again. He denies any f/c/n/v/. He has had intermittent dysuria for the past month, for which he has been taking OTC Azo, with the last dose being this afternoon. He denies a history of UTI, pyelo, or prostate problems or infection. He does have urinary frequency and dysuria, as well as a "weak urine stream," that has worsened over the past month. He does n ot have a Urologist. Historian: Patient Arrival Mode: Car Operations Support Coordinator Required: No Onset (how long ago): hour(s) (3) Location: see HPI Quality: see HPI Radiation: non-radiation Severity: severe Onset quality: sudden Duration (how long): hour(s) (3) Progression: unchanged Chronicity: new Context: other (denies trauma, falling, new medications or recent immobilization; + history of constipation.) Relieving factors: none Exacerbating factors: none Associated symptoms: denies other symptoms (no f/c, loss of appetite, malaise sob) Treatments prior to arrival: other (Magnesium Citrate) Risk factors: Use of [place], for chronic back pain, for which he is awaiting surgery. Past Medical/Family History Physician Review I have reviewed the patient's past medical and family history. Any updates have been documented here. Past Medical History Recent Fever: No Clinical Suspicion of Infectio: No New/Unexplained Change in Ment: No Past Medical History: Hypertension, CHF, GA, CVA, CAD, UTI's, GERD, Chronic Back Pain Other Medical History: DIVERTICULOSIS Cardiac Stent Placement, s/p CABG Past Surgical History: Cholecysctectomy, CABG (x4), Hernia Repair, Back Surgery Other Surgery: 4-5 BACK SURGERIES, quadruple bypass Social History Smoking Cessation: Never Smoker Counseling Performed: No Alcohol Use: None Any Illegal Drug Use: No TB Exposure/Symptoms: No Physically hurt or threatened: No Family History Family history of heart diseas: No Other Last Tetanus: UTD Any Pre-Existing Lines (PICC,: No Is patient up to date on immun: Yes Last Flu: YES Last Pneumovax: YES Review of Systems Review of Systems Constitutional: no symptoms EENTM: no symptoms Cardiovascular: no symptoms Gastrointestinal: as per HPI, abdominal pain, constipation Genitourinary: dysuria, frequency, pain Musculoskeletal: no symptoms Neurological: no symptoms Psychological: no symptoms Review of other systems All other systems reviewed and negative. Physical Exam Related Data Allergies: Coded Allergies: Sulfa (Sulfonamide Antibiotics) (Verified Allergy, Intermediate, NAUSEA, 06/21/19) Triage Vital Signs Vital Signs Date Time Temp Pulse Resp B/P (MAP) Pulse Ox O2 Delivery O2 Flow Rate FiO2 10/17/19 20:00 97.7 99 18 185/94 97 Vital signs reviewed: Yes Physical Exam CONSTITUTIONAL Constitutional: well-developed, well-nourished, obese HENT HENT: normocephalic, atraumatic, oropharynx clear/moist, oropharynx normal, nose normal HENT L/R: left ext ear normal, right ext ear normal EYES Eyes: PERRL, conjunctivae normal NECK Neck: ROM normal, supple PULMONARY Pulmonary: effort normal, breath sounds normal CARDIOVASCULAR Cardiovascular: regular rhythm, heart sounds normal, capillary refill normal, normal rate GASTROINTESTINAL Abdominal: soft, tender, other (mild, diffuse abdominal tenderness, without rebound or guarding, hyperactivd BS, ) GENITOURINARY Genitourinary: exam deferred SKIN Skin: warm, dry MUSCULOSKELETAL Musculoskeletal: ROM normal NEUROLOGICAL Neurological: alert, oriented x 3, no gross motor or sensory deficits PSYCHOLOGICAL Psychological: mood/affect normal, judgement normal Results Laboratory Lab results reviewed: Yes Laboratory comments BMP - nl liver - nl Cardiacs - nl except for myoglobin = 230 UA - (took azo) carey- mod, ket - trace, pro - 30 mg/dl CBC - nl except for WBC = 17.9 Imaging Imaging results reviewed: Yes Imaging Comments *[place] [id number] Patient Name: TEDDY LESTER MR #: [id number] : 1945 Age/Sex: 74/M Req #: [id number] Adm Physician: Ordered by: STEVE BEE MD Report #: [id number] Location: [facility] Room/Bed: Procedure: HOPD/CT ABD/PEL WO CONTRAST-HOPD Exam Date: 10/18/19 Exam Time: 2343 REPORT STATUS: Signed CT Abdomen and Pelvis without contrast INDICATION: ^lower abdominal pain, constipation ^[id number] ^234 TECHNIQUE: Thin collimation axial images obtained from the diaphragm to the level of the pubic symphysis without nonionic intravenous contrast. Dose reduction techniques used: Automated exposure control, adjustment of the mAs and/or kVp according to patient size, standardized low-dose protocol, and/or iterative reconstruction technique. RADIATION DOSE: Total DLP: 1224.15 mGy*cm Estimated effective dose: (DLP x 0.015 x size factor) mSv CTDIvol has been reviewed. It is below the limits set by the Radiation Protocol Committee (RPC). COMPARISON: CT abdomen/pelvis 08/21/2019. ABDOMEN FINDINGS: Lung Bases: Diffuse hyperinflation. Subcentimeter calcified granuloma in the right lower lobe. Subcentimeter calcified granuloma in the lingular abutting the pleura. No infiltrates or soft tissue nodules. Heavy calcifications of the coronary arteries. No hernia megaly. Small hiatal hernia. Tortuous descending thoracic aorta. Liver: Lobulated contours are redemonstrated. Mildly decreased attenuation suggestive of steatosis. No mass. Gallbladder: Absent. No ductal dilatation. Pancreas: Diffusely atrophic without mass or ductal dilatation. Spleen: Normal size without mass. Adrenal Glands: No evidence for mass. Kidneys: Right: No renal calculus. Multiple low attenuating cortical lesions measure up to 1.5 cm and are grossly stable. No hydronephrosis. Left: No renal calculus. Multiple low attenuating cortical lesions measure up to 3.8 cm and are grossly stable. No hydronephrosis. Lymph Nodes: No lymphadenopathy. Calcified subcentimeter lymph nodes in the neil hepatis are stable. Aorta: Diffusely calcified. There are separate origins of the common hepatic and splenic arteries. A stent in the SMA is stable. PELVIS FINDINGS: Bowel: Stomach: Normal. Small Bowel: Normal in caliber with normal wall thickness. Large Bowel: Diverticulosis coli, predominantly in the sigmoid colon. No associated inflammation. No significant stool burden in the large bowel. There is fluid distention of the proximal ascending colon without dilatation. Mild amount of stool from the splenic flexure to the proximal descending colon. No pericolonic inflammation.. Appendix: Normal. Bladder: Circumferential mural thickening. Ureters: No ureteral dilatation or calculus. Prostate: Heavy calcifications. Mild prostatomegaly. Peritoneum/retroperitoneum: No free fluid or fluid collection.. Bones: Diffuse demineralization. Visualized median sternotomy is well-healed. Multilevel vertebroplasty changes from T11 to L4 are redemonstrated. Untreated compression fracture of T10 is stable. No new compression deformities. No listhesis. Fusion hardware across the right SI joint is stable. Soft tissues: Umbilical hernia has an aperture of 9 mm and contains a knuckle of small bowel. This is stable. No fluid in the hernia sac. IMPRESSION: 1. No large stool burden. Diverticulosis coli. Stable small bowel containing umbilical hernia. No evidence for bowel obstruction or inflammation. 2. Mild steatosis. 3. Bilateral renal cortical lesions are suggestive of cysts. No evidence of renal calculus or obstructive uropathy. 4. Diffuse bladder wall thickening suggestive of outlet obstruction from prostate hypertrophy. Signed by: Dr. Marshall Kulkarni MD on 10/18/2019 12:26 AM Dictated By: MARSHALL KULKARNI MD Transcribed By: ERICH on 10/18/1925 COPY TO: STEVE BEE MD~ Diagnostics Tests Diagnostic test(s) reviewed: Yes Critical Care Time Subsequent provider I assumed direction of critical care for this patient from another provider of my specialty. Assessment & Plan Reassessment Reassessment time: 22:20 Reassessment Pt did not want to initially perform any testing, as he wanted to see if he would be able to have a BM, and symptoms subside. Over the past 1.25 hours, he has been back and forth to the BM, attempting to have a BM. He finally passed a rather large stool and felt better, but stated that, "his abdomen is very sore/painful." Explained that the best way to see what is going on with his ab domen, is to perform a CT scan abd/pelvis. He did have a CT abd/pelvis 08/2019, when seen here for a "different" episode" of abdominal pain. After being here for more than 90 mins, we decided together to proceed with blood work and CT scan abd/pelvis. Pt received a dose of Bentyl earlier, and it has "helped significantly" with his abdominal discomfort. Assessment & Plan Final Impression: (1) GENERALIZED ABDOMINAL PAIN (2) CONSTIPATION, UNSPECIFIED (3) ELEVATED WHITE BLOOD CELL COUNT, UNSPECIFIED (4) BENIGN PROSTATIC HYPERPLASIA WITH LOWER URINARY TRACT SYMP (5) DYSURIA (6) ESSENTIAL (PRIMARY) HYPERTENSION Assessment & Plan - Reviewed results of diagnostics with patient, in detail. Copies also provid ed. - Explained importance of following the instructions below, and patient voiced understanding of the plan. - Pt started on Flomax, to help with Prostate stream, which may also help to decrease his lower abdominal symptoms. - Inc WBC --> no clear focus, as abdomen without signs of infection, no fever or URI symptoms. Pt has been having urinary burning and frequency for @ 1 month, with decreasing urine stream. Pt took AZO late this afternoon, and urine appears orange, which skews our UA performed at [facility]. Will treat empirically with Cefdinir, pending furhter w/u by Urology. Pt to STOP the AZO, after being on the Cefdinir x 2 days and he is absolutely NOT to take it prior to his Urology appt. - Results of Diagnostics and my note, faxed to Dr. Crump. Pt to contact his office for an appointment. Follow-up with Dr Ford to repeat your CBC in 7-10 days, to make sure that th e white blood cell count has normalized. Take Miralax 1 capful mixed in 8 oz of water once or twice daily, along with over the counter Magnesium Oxide Supplement 250 mg - 1 tab twice daily. Hold both of these for 24 - 48 hours, if you develop diarrhea. Increase water and fiber intake Follow-up with Dr. Joaquin, regarding further management of constipation. Follow-up with Urology, Dr. Mikey Crump, regarding enlarged prostate, weak urine stream and burning with urination. Depart Disposition: HOME, SELF-CARE Last Vital Signs Date Time Temp Pulse Resp B/P (MAP) Pulse Ox O2 Delivery O2 Flow Rate FiO2 10/17/19 22:05 98 18 182/89 97 10/17/19 20:00 97.7 Home Meds Active Scripts Dicyclomine Hcl (DICYCLOMINE HCL) 20 Mg Tablet, 1 TAB PO QID for colon or bladder spasm, #30 TAB 0 Refills Prov:STEVE BEE MD 10/18/19 Cefdinir (OMNICEF) 300 Mg Capsule, 300 MG PO BID for urine infection for 10 Days, #20 CAP 0 Refills Prov:STEVE BEE MD 10/18/19 Tamsulosin Hcl* (FLOMAX*) 0.4 Mg Cap, 0.4 MG PO DAILY for for prostate, #30 CAP 0 Refills Prov:STEVE BEE MD 10/18/19 Cefdinir (OMNICEF) 300 Mg Capsule, 1 TAB PO Q12H for 7 Days, #14 TAB Prov:SAROJ YANG 08/21/19 Metaxalone (SKELAXIN) 800 Mg Tablet, 1 TAB PO Q8H PRN for MUSCLE SPASMS for 10 Days, #30 TAB TAKE AFTER PREDNISONE TO CONTROL PAIN IF NEED BE Prov:SAROJ YANG 08/21/19 Prednisone (PREDNISONE) 20 Mg Tab, 60 MG PO DAILY PRN for MODERATE PAIN (4-6) for 5 Days, #15 TAB Prov:SAROJ YANG 08/21/19 Phenazopyridine Hcl (PHENAZOPYRIDINE HCL) 100 Mg Tablet, 200 MG PO TID for urina ry pain for 2 Days, #6 TAB 0 Refills Prov:STEVE BEE MD 08/08/19 Cefdinir (OMNICEF) 300 Mg Capsule, 1 TAB PO BID for infection for 10 Days, #20 TAB 0 Refills Take ALL antibiotics Prov:STEVE BEE MD 08/08/19 Reported Medications Baclofen (BACLOFEN) 10 Mg Tablet, 10 MG PO TID, #90 TAB 11/19/18 Metoclopramide Hcl (REGLAN) 10 Mg Tablet, 1 TAB PO DAILY 07/20/18 Furosemide (FUROSEMIDE) 40 Mg Tablet, 40 MG PO Daily, #30 TAB 07/20/18 Oxycodone Hcl/Acetaminophen (PERCOCET 10-325 MG TABLET) 1 Each Tablet, 1 TAB PO Q4HR PRN for PAIN 06/01/18 Cyclobenzaprine Hcl (FLEXERIL) 5 Mg Tablet, 7.5 MG PO TID PRN for PAIN 06/01/18 Pantoprazole Sodium* (PROTONIX) 40 Mg Tablet.dr, 40 MG PO DAILY, TAB 10/09/17 Clopidogrel Bisulfate (CLOPIDOGREL) 75 Mg Tablet, 75 MG PO DAILY, #30 TAB 10/09/17 Atorvastatin Calcium (ATORVASTATIN CALCIUM) 10 Mg Tablet, 10 MG PO 2100, #30 TAB 10/09/17 Metoprolol Tartrate (METOPROLOL TARTRATE) 25 Mg Tablet, 12.5 MG PO BID, TAB 10/09/17 Medications in the ED Dicyclomine HCl 20 mg STK-MED ONCE .ROUTE ; Start 10/17/19 at 21:11; Stop 10/17/19 at 21:08; Status DC Dicyclomine HCl 20 mg ONCE ONCE PO Last administered on 10/17/19at 21:28; Admin Dose 20 MG; Start 10/17/19 at 21:15; Stop 10/17/19 at 21:16; Status DC Sodium Chloride 1,000 ml @ 0 mls/hr Q0M IV ; Start 10/17/19 at 22:30; Stop 11/16/19 at 22:29; Status UNV STEVE BEE MD Oct 18, 2019 00:39
[2019-10-18] MEDS ORDERED: FLOMAX0.4 MG PO (01:09)
[2019-10-18] MEDS ORDERED: CEFDINIR300 MG PO (01:10)
[2019-10-18] MEDS ORDERED: DICYCLOMINE HCL20 MG PO (01:12)
== END 2019-10-18 01:35 | disposition home or self-care (01) ==
LOC: FSED 19:49
DX: R10.84 Generalized abdominal pain (principal); R30.0 Dysuria; K59.00 Constipation, unspecified; D72.829 Elevated white blood cell count, unspecified; N40.1 Benign prostatic hyperplasia with lower urinary tract symptoms; I10 Essential (primary) hypertension; Z95.5 Presence of coronary angioplasty implant and graft; Z95.1 Presence of aortocoronary bypass graft
CPT/HCPCS: 74176; 80048; 80076; 81003; 82553; 84484; 85025; 99284

== ENCOUNTER → 2019-12-17 | Outpatient (CLI) | payer MEDICARE ==
[~2019-12-17] MED LIST changes: +DIATRIZOATE MEGL/DIATRIZOA SOD 30 ML BTL PO ONE; +FLOMAX0.4 MG PO; +IOPAMIDOL 370 MG/ML 200 ML INFUS..BTL INJ ONE; +SODIUM CHLORIDE 0.9% 500ML 500 ML ONE; +SODIUM CHLORIDE 0.9% 50ML 50 ML ONE
[2019-12-17 13:18] LABS: CREATININE, SERUM 1.37 mg/dL (0.72-1.25)
--- NOTE | 2019-12-17 14:39 | Diagnostic Imaging Report ---
ADDENDUM #1 The above findings were discussed with Dr. Weston on 12/17/2019 4:38 PM, who responded indicating that the communication was understood. Signed by: Lan Corcoran MD on 12/17/2019 4:38 PM ORIGINAL REPORT EXAM: CT Abdomen and Pelvis WITH intravenous contrast INDICATION: Right lower quadrant abdominal pain COMPARISON: CT abdomen and pelvis of 10/17/2019 TECHNIQUE: Abdomen and pelvis were scanned utilizing a multidetector helical scanner from the lung base to the pubic symphysis after administration of IV contrast. Coronal and sagittal reformations were obtained. Routine protocol was performed. Scan was performed during portal venous phase. IV CONTRAST: 100mL of Isovue 370 ORAL CONTRAST: Gastrografin RADIATION DOSE: Total DLP: 713 mGy*cm Dose modulation, iterative reconstruction, and/or weight based adjustment of the mA/kV was utilized to reduce the radiation dose to as low as reasonably achievable. FINDINGS: LOWER THORAX: Normal. HEPATOBILIARY: Mild diffuse hepatic steatosis. No focal liver lesion. No biliary ductal dilation. Status post cholecystectomy. SPLEEN: No splenomegaly. PANCREAS: No focal masses or ductal dilatation. ADRENALS: No adrenal nodules. KIDNEYS/URETERS: No renal calculi, hydronephrosis, or solid mass lesion. Unchanged bilateral renal cysts. PELVIC ORGANS/BLADDER: Unchanged bladder wall thickening. Coarse calcifications within the prostate. PERITONEUM / RETROPERITONEUM: No free air or fluid. LYMPH NODES: No lymphadenopathy. VESSELS: Moderate atherosclerotic calcifications of the nonaneurysmal abdominal aorta and major branches. GI TRACT: Diverticulosis. Right lower quadrant fat stranding adjacent to an inflamed appearing diverticulum consistent with acute right diverticulitis. No associated abscess or extraluminal air. Normal appendix. No bowel obstruction. BONES AND SOFT TISSUES: Old T12-L5 compression fracture status post vertebral augmentation. Postoperative findings of right SI joint fusion. No acute osseous injury. Diffuse osteopenia. IMPRESSION: Mild uncomplicated right sided acute diverticulitis. Diffuse hepatic steatosis. Unchanged mild bladder wall thickening. Signed by: Lan Corcoran MD on 12/17/2019 2:36 PM
== END ==
LOC: CT 12:29
PROVIDERS: ATTEND Internal Medicine Gastroenterology
DX: R10.31 Right lower quadrant pain (principal); K57.92 Diverticulitis of intestine, part unspecified, without perforation or abscess without bleeding; K76.0 Fatty (change of) liver, not elsewhere classified
CPT/HCPCS: 36415; 74177; 82565; 84520; 96360; J7040; Q9967

== ENCOUNTER → 2020-02-13 | Outpatient (CLI) | payer MEDICARE ==
[~2020-02-13] MED LIST changes: -DIATRIZOATE MEGL/DIATRIZOA SOD 30 ML BTL PO ONE; -IOPAMIDOL 370 MG/ML 200 ML INFUS..BTL INJ ONE; -SODIUM CHLORIDE 0.9% 500ML 500 ML ONE; -SODIUM CHLORIDE 0.9% 50ML 50 ML ONE
--- NOTE | 2020-02-13 10:26 | Diagnostic Imaging Report ---
Exam: KUB - 2 views Indication: Constipation Comparison: CT abdomen and pelvis of 12/17/2019 Findings: Nonobstructive bowel gas pattern. No free air. Normal stool burden throughout the colon. Status post cholecystectomy, multilevel thoracolumbar vertebral augmentation, and right SI joint fusion. Mesenteric arterial stent projects over the midline. Diffuse osteopenia. No acute osseous injury. Impression: Normal stool burden throughout the colon. No bowel obstruction or free air. Signed by: Lan Corcoran MD on 02/13/2020 10:23 AM
== END ==
LOC: RAD 09:34
PROVIDERS: ATTEND Internal Medicine Gastroenterology
DX: K59.00 Constipation, unspecified (principal)
CPT/HCPCS: 74018

== ENCOUNTER → 2020-05-12 | Outpatient (CLI) | payer MEDICARE ==
[~2020-05-12] MED LIST changes: +IOPAMIDOL 370 MG/ML 200 ML INFUS..BTL INJ ONE; +SODIUM CHLORIDE 0.9% 500ML 500 ML ONE; +SODIUM CHLORIDE 0.9% 50ML 50 ML ONE
[2020-05-12 15:39] LABS: CREATININE, SERUM 1.31 mg/dL (0.72-1.25)
== END ==
LOC: CT 14:43
PROVIDERS: ATTEND Internal Medicine
DX: R07.9 Chest pain, unspecified (principal); R79.1 Abnormal coagulation profile
CPT/HCPCS: 36415; 71260; 82565; 84520; 96360; J7040; Q9967

== ENCOUNTER 2020-06-16 10:50 | Emergency (ER) | payer MEDICARE ==
[~2020-06-16] VITALS: Ht 198.1 cm; Wt 108.9 kg
[~2020-06-16 10:50] MED LIST changes: -IOPAMIDOL 370 MG/ML 200 ML INFUS..BTL INJ ONE; -SODIUM CHLORIDE 0.9% 500ML 500 ML ONE; -SODIUM CHLORIDE 0.9% 50ML 50 ML ONE
[2020-06-16] MEDS ORDERED: LAMISIL AT12 G1 TOP (11:17)
== END 2020-06-16 11:43 | disposition home or self-care (01) ==
LOC: FSED 11:15
DX: B35.3 Tinea pedis (principal); L30.9 Dermatitis, unspecified; I10 Essential (primary) hypertension; I50.9 Heart failure, unspecified; I25.10 Atherosclerotic heart disease of native coronary artery without angina pectoris; K21.9 Gastro-esophageal reflux disease without esophagitis; I25.2 Old myocardial infarction; Z86.73 Personal history of transient ischemic attack (TIA), and cerebral infarction without residual deficits
CPT/HCPCS: 99282

== ENCOUNTER 2020-06-23 21:38 | Emergency (ER) | payer MEDICARE ==
[~2020-06-23] VITALS: Ht 198.1 cm; Wt 108.9 kg
[~2020-06-23 21:38] MED LIST changes: +LAMISIL AT12 G1 TOP
== END 2020-06-23 23:56 | disposition home or self-care (01) ==
LOC: ER 22:17
DX: B35.3 Tinea pedis (principal); I10 Essential (primary) hypertension; I50.9 Heart failure, unspecified; I25.10 Atherosclerotic heart disease of native coronary artery without angina pectoris; K21.9 Gastro-esophageal reflux disease without esophagitis; M54.9 Dorsalgia, unspecified; G89.29 Other chronic pain; Z95.1 Presence of aortocoronary bypass graft; Z86.73 Personal history of transient ischemic attack (TIA), and cerebral infarction without residual deficits
CPT/HCPCS: 99282

== ENCOUNTER → 2020-08-25 | Outpatient (CLI) | payer MEDICARE ==
[~2020-08-25] MED LIST changes: +IOPAMIDOL 370 MG/ML 200 ML INFUS..BTL INJ ONE; +SODIUM CHLORIDE 0.9% 50ML 50 ML ONE
[2020-08-25 17:04] LABS: CREATININE, SERUM 1.34 mg/dL (0.72-1.25)
== END ==
LOC: CT 16:03
PROVIDERS: ATTEND Internal Medicine Gastroenterology
DX: R10.11 Right upper quadrant pain (principal)
CPT/HCPCS: 36415; 74160; 82565; 84520; Q9967

== ENCOUNTER 2020-11-24 06:27 | Emergency (ER) | payer MEDICARE ==
[~2020-11-24] VITALS: Ht 198.1 cm; Wt 108.9 kg
[~2020-11-24 06:27] MED LIST changes: -IOPAMIDOL 370 MG/ML 200 ML INFUS..BTL INJ ONE; -SODIUM CHLORIDE 0.9% 50ML 50 ML ONE
[2020-11-24] MEDS ORDERED: LIDOCAINE 4% PATCH TP ONE (06:45)
[2020-11-24] MEDS ORDERED: KETOROLAC TROMETHAMINE 60 MG/2 ML VIAL IM ONE (06:45)
[2020-11-24] MEDS ORDERED: HYDROCODONE/APAP 7.5MG-325MG 1 EA TAB PO ONE (06:45)
[2020-11-24] MEDS ORDERED: KETOROLAC TROMETHAMINE 30 MG/ML VIAL IV STA (07:13)
[2020-11-24] MEDS ORDERED: HYDROCODON-ACE1 EA12 PO (07:38)
== END 2020-11-24 08:10 | disposition home or self-care (01) ==
LOC: ER 06:41
DX: R07.89 Other chest pain (principal); X50.1XXA Overexertion from prolonged static or awkward postures, initial encounter; I10 Essential (primary) hypertension; I50.9 Heart failure, unspecified; I25.10 Atherosclerotic heart disease of native coronary artery without angina pectoris; K21.9 Gastro-esophageal reflux disease without esophagitis; M54.9 Dorsalgia, unspecified; G89.29 Other chronic pain; I25.2 Old myocardial infarction; Z95.1 Presence of aortocoronary bypass graft; Z86.73 Personal history of transient ischemic attack (TIA), and cerebral infarction without residual deficits
CPT/HCPCS: 71101; 99284; J1885

== ENCOUNTER 2021-02-11 23:41 | Emergency (ER) | payer MEDICARE ==
[~2021-02-11] VITALS: Ht 198.1 cm; Wt 108.9 kg
[~2021-02-11 23:41] MED LIST changes: +HYDROCODON-ACE1 EA12 PO
[2021-02-12] MEDS ORDERED: PREDNISONE 20 MG TAB PO STA (00:03)
[2021-02-12] MEDS ORDERED: FAMOTIDINE 20 MG TAB PO STA (00:03)
[2021-02-12] MEDS ORDERED: EPINEPHRINE HCL 1:1000 1ML 1 MG/ML AMP IM STA (00:03)
[2021-02-12] MEDS ORDERED: EPINEPHRINE HCL 1:1000 1ML 1 MG/ML AMP ONE (00:18)
[2021-02-12] MEDS ORDERED: FAMOTIDINE 20 MG TAB ONE (00:18)
[2021-02-12] MEDS ORDERED: PREDNISONE 20 MG TAB ONE (00:18)
[2021-02-12] MEDS ORDERED: PEPCID20 MG PO (00:34)
[2021-02-12] MEDS ORDERED: PREDNISONE20 MG PO (00:34)
== END 2021-02-12 00:42 | disposition home or self-care (01) ==
LOC: FSED 02-12 00:05
DX: R21 Rash and other nonspecific skin eruption (principal); I10 Essential (primary) hypertension; I50.9 Heart failure, unspecified; I25.10 Atherosclerotic heart disease of native coronary artery without angina pectoris; K21.9 Gastro-esophageal reflux disease without esophagitis; Z86.73 Personal history of transient ischemic attack (TIA), and cerebral infarction without residual deficits; Z95.1 Presence of aortocoronary bypass graft
CPT/HCPCS: 99283; J0171; J7512

== ENCOUNTER 2021-02-14 14:52 | Observation (INO) | payer MEDICARE ==
[~2021-02-14] VITALS: Ht 198.1 cm; Wt 108.9 kg
[~2021-02-14 14:52] MED LIST changes: +PEPCID20 MG PO
[2021-02-14] MEDS ORDERED: ASPIRIN 81 MG CHEW TAB PO NR (15:30)
[2021-02-14 16:05] LABS: BASOPHILS # (AUTO) 0.1 (0.0-0.1); BASOPHILS % 0.4 % (0.0-1.0); EOSINOPHILS % 0.1 % (0.0-6.0); HEMATOCRIT 37.2 % (38.2-49.6); LYMPHOCYTES # (AUTO) 1.5 (1.0-3.2); MEAN CORPUSCULAR HEMOGLOBIN 28.1 pg (28-32); MEAN CORPUSCULAR HGB CONC 32.3 g/dL (31-35); MEAN CORPUSCULAR VOLUME 87.1 fL (81-99); MONOCYTES # (AUTO) 1.5 (0.2-0.8); MONOCYTES % 10.9 % (4.4-11.3); NEUTROPHILS # (AUTO) 10.2 (2.1-6.9); NEUTROPHILS % 75.9 % (38.7-80.0); PLATELET COUNT 250 x10e3/uL (140-360); RED BLOOD COUNT 4.27 x10e6/uL (4.3-5.7); RED CELL DISTRIBUTION WIDTH 16.3 % (11.7-14.4)
[2021-02-14 16:31] LABS: ALBUMIN 4.1 g/dL (3.5-5.0); ALBUMIN/GLOBULIN RATIO 1.1 (0.8-2.0); CALCIUM 9.4 mg/dL (8.4-10.2); CREATININE, SERUM 1.43 mg/dL (0.72-1.25)
[2021-02-14] MEDS ORDERED: MORPHINE SULFATE INJ 4 MG/ML INJ 1ML IV PRN (16:45)
[2021-02-14] MEDS ORDERED: NITROGLYCERIN 0.4 MG SUBL SL ONE (17:15)
[2021-02-14] MEDS ORDERED: KETOROLAC TROMETHAMINE 30 MG/ML VIAL IV STA (17:21)
[2021-02-14 18:16] VITALS: BP 141/106
[2021-02-14] MEDS ORDERED: ELIQUIS5 MG PO (19:55)
[2021-02-14 20:00] VITALS: BP 149/102
[2021-02-14] MEDS ORDERED: ATORVASTATIN 40 MG TAB PO ONE (20:15)
[2021-02-14] MEDS ORDERED: ISOSORBIDE MONONITRATE 30 MG TAB CR PO ONE (20:15)
[2021-02-14 20:38] VITALS: BP 149/102
[2021-02-14] MEDS: APIXABAN 5 MG TABLET PO SCH (20:58)
[2021-02-14] MEDS: METOPROLOL TARTRATE 25 MG TAB PO SCH (20:59)
[2021-02-14] MEDS ORDERED: ACETAMINOPHEN 325 MG TAB PO PRN (22:00)
[2021-02-14] MEDS: KETOROLAC TROMETHAMINE 30 MG/ML VIAL IV PRN (22:27)
[2021-02-15] VITALS: BP 107/78
[2021-02-15 01:13] VITALS: BP 149/102
[2021-02-15 04:00] VITALS: BP 115/73
[2021-02-15] MEDS: KETOROLAC TROMETHAMINE 30 MG/ML VIAL IV PRN (04:35)
[2021-02-15 08:19] VITALS: BP 129/86
[2021-02-15] MEDS ORDERED: FUROSEMIDE 40 MG TAB PO SCH (09:00)
[2021-02-15] MEDS ORDERED: PANTOPRAZOLE SOD 40 MG TABEC PO SCH (09:00)
[2021-02-15] MEDS ORDERED: ISOSORBIDE MONONITRATE 30 MG TAB CR PO SCH (09:00)
[2021-02-15] MEDS ORDERED: CLOPIDOGREL BISULFATE 75 MG TAB PO SCH (09:00)
[2021-02-15] MEDS ORDERED: FUROSEMIDE INJ 10 MG/ML 4 ML VIAL IV SCH (09:00)
[2021-02-15] MEDS: METOPROLOL TARTRATE 25 MG TAB PO SCH (09:11)
[2021-02-15] MEDS: APIXABAN 5 MG TABLET PO SCH (09:11)
[2021-02-15 11:30] VITALS: BP 95/57
== END 2021-02-15 11:54 | disposition home or self-care (01) ==
LOC: ER 14:56 → ERHOLD 17:03 → MED/SURG3 18:19
PROVIDERS: ADMIT Internal Medicine; ATTEND Internal Medicine
DX: R07.89 Other chest pain (principal); I13.0 Hypertensive heart and chronic kidney disease with heart failure and stage 1 through stage 4 chronic kidney disease, or unspecified chronic kidney disease; N18.9 Chronic kidney disease, unspecified; I50.9 Heart failure, unspecified; Z95.1 Presence of aortocoronary bypass graft; I25.2 Old myocardial infarction; Z88.2 Allergy status to sulfonamides; Z82.49 Family history of ischemic heart disease and other diseases of the circulatory system; E78.5 Hyperlipidemia, unspecified; Z20.822 Contact with and (suspected) exposure to COVID-19
CPT/HCPCS: 36415; 71045; 71250; 80053; 83880; 84484; 85025; 93005; 99284; G0378 ×2; J1885 ×2; J2270; S0164; U0002

== ENCOUNTER 2021-03-17 18:19 | Emergency (ER) | payer MEDICARE ==
[~2021-03-17] VITALS: Ht 198.1 cm; Wt 108.9 kg
[~2021-03-17 18:19] MED LIST changes: +ELIQUIS5 MG PO
[2021-03-17] MEDS ORDERED: SODIUM CHLORIDE 0.9% 1000ML 250 ML IV STA (18:34)
[2021-03-17] MEDS ORDERED: ONDANSETRON HCL INJ 2MG/ML 2ML 2 MG/ML VIAL IV NR (18:45)
[2021-03-17] MEDS ORDERED: Morphine 2mg Syringe 2 MG/ML SYR IV ONE (18:50)
[2021-03-17 18:56] LABS: BASOPHILS % 0.5 % (0.0-1.0); EOSINOPHILS # (AUTO) 0.1 (0.0-0.4); EOSINOPHILS % 0.9 % (0.0-6.0); HEMATOCRIT 36.7 % (38.2-49.6); LYMPHOCYTES # (AUTO) 1.3 (1.0-3.2); LYMPHOCYTES % 22.2 % (18.0-39.1); MEAN CORPUSCULAR HEMOGLOBIN 28.9 pg (28-32); MEAN CORPUSCULAR HGB CONC 32.7 g/dL (31-35); MEAN CORPUSCULAR VOLUME 88.4 fL (81-99); MONOCYTES # (AUTO) 0.8 (0.2-0.8); MONOCYTES % 13.2 % (4.4-11.3); NEUTROPHILS # (AUTO) 3.5 (2.1-6.9); NEUTROPHILS % 62.3 % (38.7-80.0); PLATELET COUNT 176 x10e3/uL (140-360); RED BLOOD COUNT 4.15 x10e6/uL (4.3-5.7)
[2021-03-17 19:07] LABS: CLARITY,URINE CLEAR (CLEAR); COLOR,URINE YELLOW (YELLOW)
[2021-03-17 19:08] LABS: KETONES,URINE NEGATIVE (NEGATIVE); LEUKOCYTE ESTERASE ,URINE NEGATIVE (NEGATIVE); NITRITE,URINE NEGATIVE (NEGATIVE); PROTEIN,URINE DIPSTICK NEGATIVE (NEGATIVE); URINE UROBILINOGEN 0.2 mg/dL (0.2 - 1)
[2021-03-17 19:15] LABS: ALBUMIN 3.8 g/dL (3.5-5.0); ANION GAP 12.5 mmol/L (8-16); CALCIUM 8.8 mg/dL (8.4-10.2); CREATININE, SERUM 1.57 mg/dL (0.72-1.25); POTASSIUM 4.5 mmol/L (3.5-5.1)
[2021-03-17 19:19] LABS: BACTERIA,URINE RARE /HPF; EPITHELIAL CELLS,URINE FEW /LPF
[2021-03-17] MEDS ORDERED: SODIUM CHLORIDE 0.9% 250ML 250 ML ONE (19:25)
[2021-03-17] MEDS ORDERED: CEPHALEXIN500 MG PO (20:16)
[2021-03-17 20:46] VITALS: BP 142/91
== END 2021-03-17 20:47 | disposition home or self-care (01) ==
LOC: ER 18:38
DX: M54.50 Low back pain, unspecified (principal); G89.29 Other chronic pain; R35.0 Frequency of micturition; I10 Essential (primary) hypertension; I50.9 Heart failure, unspecified; I25.10 Atherosclerotic heart disease of native coronary artery without angina pectoris; K21.9 Gastro-esophageal reflux disease without esophagitis; I25.2 Old myocardial infarction; Z86.73 Personal history of transient ischemic attack (TIA), and cerebral infarction without residual deficits; Z95.5 Presence of coronary angioplasty implant and graft
CPT/HCPCS: 36415; 71045; 74176; 80053; 81001; 85025; 87086; 99284; J2270; J2405; J7030; J7050

== ENCOUNTER 2021-05-17 20:42 | Emergency (ER) | payer MEDICARE ==
[~2021-05-17] VITALS: Ht 198.1 cm; Wt 108.9 kg
[~2021-05-17 20:42] MED LIST changes: +CEPHALEXIN500 MG PO
[2021-05-17 21:12] LABS: BASOPHILS % 0.3 % (0.0-1.0); EOSINOPHILS % 0.3 % (0.0-6.0); HEMOGLOBIN 12.2 g/dL (14.0-18.0); LYMPHOCYTES # (AUTO) 1.7 (1.0-3.2); MEAN CORPUSCULAR HEMOGLOBIN 28.7 pg (28-32); MEAN CORPUSCULAR HGB CONC 32.1 g/dL (31-35); MEAN CORPUSCULAR VOLUME 89.4 fL (81-99); MONOCYTES # (AUTO) 1.1 (0.2-0.8); MONOCYTES % 11.9 % (4.4-11.3); NEUTROPHILS % 66.9 % (38.7-80.0); PLATELET COUNT 194 x10e3/uL (140-360); RED BLOOD COUNT 4.25 x10e6/uL (4.3-5.7); RED CELL DISTRIBUTION WIDTH 16.4 % (11.7-14.4)
[2021-05-17 21:29] LABS: BACTERIA,URINE FEW /HPF; CLARITY,URINE HAZY (CLEAR); COLOR,URINE YELLOW (YELLOW); EPITHELIAL CELLS,URINE FEW /LPF; KETONES,URINE NEGATIVE (NEGATIVE); LEUKOCYTE ESTERASE ,URINE NEGATIVE (NEGATIVE); NITRITE,URINE NEGATIVE (NEGATIVE); PROTEIN,URINE DIPSTICK 1+ (NEGATIVE); RBC,URINE 0-5 /HPF (0-5); URINE UROBILINOGEN 0.2 mg/dL (0.2 - 1); WBC,URINE (MAN) 0-5 /HPF (0-5)
[2021-05-17 21:35] LABS: ALBUMIN 3.8 g/dL (3.5-5.0); ANION GAP 14.3 mmol/L (8-16); CALCIUM 8.9 mg/dL (8.4-10.2); CREATININE, SERUM 1.68 mg/dL (0.72-1.25); POTASSIUM 4.3 mmol/L (3.5-5.1)
[2021-05-17 21:42] LABS: CREATINE KINASE MB 2.1 ng/mL (0-5.0)
[2021-05-17] MEDS ORDERED: KETOROLAC TROMETHAMINE 30 MG/ML VIAL IV STA (21:45)
[2021-05-17] MEDS ORDERED: SODIUM CHLORIDE 0.9% 1000ML 1,000 ML IV STA (22:33)
[2021-05-17] MEDS ORDERED: Morphine 4mg Syringe 4 MG/ML INJ IV STA (22:33)
[2021-05-17] MEDS ORDERED: ONDANSETRON HCL INJ 2MG/ML 2ML 2 MG/ML VIAL IV STA (22:33)
[2021-05-17] MEDS ORDERED: IOPAMIDOL 370 MG/ML 200 ML INFUS..BTL INJ ONE (22:47)
[2021-05-17] MEDS ORDERED: SODIUM CHLORIDE 0.9% 50ML 50 ML ONE (22:47)
[2021-05-17] MEDS ORDERED: AUGMENTIN 500-1 EACH PO (23:42)
[2021-05-17] MEDS ORDERED: ACETAMINOPHEN-1 EAC4 PO (23:42)
[2021-05-17] MEDS ORDERED: ONDANSETRON ODT4 MG PO (23:42)
[2021-05-18 03:50] VITALS: BP 129/84
== END 2021-05-18 00:02 | disposition home or self-care (01) ==
LOC: ER 20:58
DX: R10.11 Right upper quadrant pain (principal); N28.9 Disorder of kidney and ureter, unspecified; I10 Essential (primary) hypertension; I50.9 Heart failure, unspecified; I25.10 Atherosclerotic heart disease of native coronary artery without angina pectoris; K21.9 Gastro-esophageal reflux disease without esophagitis; M54.9 Dorsalgia, unspecified; G89.29 Other chronic pain; I25.2 Old myocardial infarction; Z95.1 Presence of aortocoronary bypass graft; Z95.5 Presence of coronary angioplasty implant and graft; Z86.73 Personal history of transient ischemic attack (TIA), and cerebral infarction without residual deficits
CPT/HCPCS: 36415; 71046; 74177; 80053; 81001; 82550; 82553; 83690; 84484; 85025; 93005; 99284; J1885; J2270; J2405; J7030; Q9967

== ENCOUNTER → 2021-05-22 | Day surgery (SDC) | payer MEDICARE ==
[~2021-05-22] MED LIST changes: +ACETAMINOPHEN-1 EAC4 PO; +AUGMENTIN 500-1 EACH PO; +HYOSCYAMINE SULFATE 0.5 MG/ML INJ ONE; +LIDOCAINE HCL 2% LOCAL INJ 5 ML SDV VIAL INJ ONE; +ONDANSETRON ODT4 MG PO; +PROPOFOL IV EMULSION 10 MG/ML 20 ML VIAL ONE
[2021-05-22 09:50] VITALS: BP 131/83
== END | disposition home or self-care (01) ==
LOC: OR 11:00
PROVIDERS: ATTEND Internal Medicine Gastroenterology
DX: Z09 Encounter for follow-up examination after completed treatment for conditions other than malignant neoplasm (principal); Z86.010 Personal history of colon polyps; K57.30 Diverticulosis of large intestine without perforation or abscess without bleeding; K59.00 Constipation, unspecified; K64.8 Other hemorrhoids; K21.9 Gastro-esophageal reflux disease without esophagitis; I10 Essential (primary) hypertension; I25.810 Atherosclerosis of coronary artery bypass graft(s) without angina pectoris; N30.90 Cystitis, unspecified without hematuria; R06.83 Snoring; M54.9 Dorsalgia, unspecified; Z88.2 Allergy status to sulfonamides; Z01.812 Encounter for preprocedural laboratory examination; Z20.822 Contact with and (suspected) exposure to COVID-19; Z79.02 Long term (current) use of antithrombotics/antiplatelets; Z79.899 Other long term (current) drug therapy; Z68.28 Body mass index [BMI] 28.0-28.9, adult; Z90.49 Acquired absence of other specified parts of digestive tract; Z95.1 Presence of aortocoronary bypass graft
CPT/HCPCS: 45378; J1980; J2001; J2704; U0002

== ENCOUNTER 2021-08-23 11:53 | Emergency (ER) | payer MEDICARE ==
[~2021-08-23] VITALS: Ht 195.6 cm; Wt 111.1 kg
[~2021-08-23 11:53] MED LIST changes: -HYOSCYAMINE SULFATE 0.5 MG/ML INJ ONE; -LIDOCAINE HCL 2% LOCAL INJ 5 ML SDV VIAL INJ ONE; -PROPOFOL IV EMULSION 10 MG/ML 20 ML VIAL ONE
[2021-08-23] MEDS ORDERED: CEFDINIR300 MG PO ×2 (12:32→12:58)
[2021-08-23] MEDS ORDERED: BENZONATATE200 MG PO ×2 (12:32→12:58)
[2021-08-23] MEDS ORDERED: PREDNISONE20 MG PO ×2 (12:32→12:58)
[2021-08-23] MEDS ORDERED: DEXAMETHASONE SOD PHOS INJ 4 MG/ML SDV ONE (12:44)
[2021-08-23] MEDS ORDERED: DEXAMETHASONE SOD PHOS 10 MG/1 ML VIAL IM ONE (13:00)
== END 2021-08-23 12:47 | disposition home or self-care (01) ==
LOC: FSED 12:30
DX: R05.9 Cough, unspecified (principal); J20.9 Acute bronchitis, unspecified; J01.90 Acute sinusitis, unspecified; I10 Essential (primary) hypertension; I50.9 Heart failure, unspecified; I25.10 Atherosclerotic heart disease of native coronary artery without angina pectoris; K21.9 Gastro-esophageal reflux disease without esophagitis; M54.9 Dorsalgia, unspecified; G89.29 Other chronic pain; Z86.73 Personal history of transient ischemic attack (TIA), and cerebral infarction without residual deficits; Z95.1 Presence of aortocoronary bypass graft; Z95.5 Presence of coronary angioplasty implant and graft
CPT/HCPCS: 87400; 99282; J1100

== ENCOUNTER 2021-09-12 10:51 | Emergency (ER) | payer MEDICARE ==
[~2021-09-12] VITALS: Ht 195.6 cm; Wt 111.1 kg
[~2021-09-12 10:51] MED LIST changes: +BENZONATATE200 MG PO
[2021-09-12] MEDS ORDERED: SODIUM CHLORIDE 0.9% 1000ML 1,000 ML IV STA (11:18)
[2021-09-12] MEDS ORDERED: DICYCLOMINE HCL 20 MG/2 ML VIAL IM ONE (11:30)
[2021-09-12 11:36] LABS: BASOPHILS % 0.4 % (0.0-1.0); EOSINOPHILS % 0.6 % (0.0-6.0); HEMATOCRIT 37.2 % (38.2-49.6); HEMOGLOBIN 12.2 g/dL (14.0-18.0); LYMPHOCYTES # (AUTO) 0.8 (1.0-3.2); LYMPHOCYTES % 15.2 % (18.0-39.1); MEAN CORPUSCULAR HEMOGLOBIN 29.2 pg (28-32); MEAN CORPUSCULAR HGB CONC 32.8 g/dL (31-35); MONOCYTES # (AUTO) 0.5 (0.2-0.8); MONOCYTES % 8.7 % (4.4-11.3); NEUTROPHILS # (AUTO) 3.9 (2.1-6.9); NEUTROPHILS % 73.8 % (38.7-80.0); PLATELET COUNT 159 x10e3/uL (140-360); RED BLOOD COUNT 4.18 x10e6/uL (4.3-5.7)
[2021-09-12 12:03] LABS: ALBUMIN 3.5 g/dL (3.5-5.0); ALBUMIN/GLOBULIN RATIO 0.8 (0.8-2.0); ANION GAP 15.1 mmol/L (8-16); CALCIUM 8.8 mg/dL (8.4-10.2); CREATININE, SERUM 1.57 mg/dL (0.72-1.25); POTASSIUM 4.1 mmol/L (3.5-5.1)
[2021-09-12 12:13] LABS: CLARITY,URINE CLEAR (CLEAR); COLOR,URINE YELLOW (YELLOW); KETONES,URINE NEGATIVE (NEGATIVE); LEUKOCYTE ESTERASE ,URINE NEGATIVE (NEGATIVE); NITRITE,URINE POSITIVE (NEGATIVE); PROTEIN,URINE DIPSTICK 1+ (NEGATIVE)
[2021-09-12] MEDS ORDERED: CYCLOBENZAPRINE5 MG PO (12:13)
[2021-09-12 12:14] LABS: BACTERIA,URINE FEW /HPF; EPITHELIAL CELLS,URINE FEW /LPF; RBC,URINE 0-5 /HPF (0-5); URINE UROBILINOGEN 1 mg/dL (0.2 - 1)
[2021-09-12] MEDS ORDERED: IOPAMIDOL 370 MG/ML 100 ML INFUS..BTL INJ ONE (12:26)
== END 2021-09-12 13:54 | disposition home or self-care (01) ==
LOC: ER 11:05
DX: R10.31 Right lower quadrant pain (principal); G89.29 Other chronic pain; I10 Essential (primary) hypertension; I50.9 Heart failure, unspecified; I25.10 Atherosclerotic heart disease of native coronary artery without angina pectoris; K21.9 Gastro-esophageal reflux disease without esophagitis; Z95.1 Presence of aortocoronary bypass graft; Z95.5 Presence of coronary angioplasty implant and graft; Z86.73 Personal history of transient ischemic attack (TIA), and cerebral infarction without residual deficits
CPT/HCPCS: 36415; 74177; 80053; 81001; 83690; 85025; 87086; 99284; J0500; J7030; Q9967

== ENCOUNTER 2021-11-24 14:09 | Emergency (ER) | payer MEDICARE, OTHER ==
[~2021-11-24] VITALS: Ht 195.6 cm; Wt 111.1 kg
[2021-11-24] MEDS ORDERED: HYDROCODONE/APAP 5MG-325MG TAB PO ONE (15:00)
[2021-11-24 15:07] LABS: BASOPHILS % 0.5 % (0.0-1.0); EOSINOPHILS % 0.7 % (0.0-6.0); HEMATOCRIT 39.3 % (38.2-49.6); HEMOGLOBIN 12.9 g/dL (14.0-18.0); LYMPHOCYTES % 16.4 % (18.0-39.1); MEAN CORPUSCULAR HEMOGLOBIN 29.3 pg (28-32); MEAN CORPUSCULAR HGB CONC 32.8 g/dL (31-35); MEAN CORPUSCULAR VOLUME 89.3 fL (81-99); MONOCYTES # (AUTO) 0.8 (0.2-0.8); MONOCYTES % 12.4 % (4.4-11.3); NEUTROPHILS # (AUTO) 4.3 (2.1-6.9); PLATELET COUNT 189 x10e3/uL (140-360); RED CELL DISTRIBUTION WIDTH 15.8 % (11.7-14.4)
[2021-11-24 15:20] LABS: CLARITY,URINE CLEAR (CLEAR); COLOR,URINE YELLOW (YELLOW); KETONES,URINE NEGATIVE (NEGATIVE); LEUKOCYTE ESTERASE ,URINE TRACE (NEGATIVE); NITRITE,URINE NEGATIVE (NEGATIVE); PROTEIN,URINE DIPSTICK NEGATIVE (NEGATIVE); URINE UROBILINOGEN 0.2 mg/dL (0.2 - 1)
[2021-11-24 15:27] LABS: ALBUMIN 3.9 g/dL (3.5-5.0); ALBUMIN/GLOBULIN RATIO 0.9 (0.8-2.0); ANION GAP 15.6 mmol/L (8-16); CALCIUM 8.8 mg/dL (8.4-10.2); CREATININE, SERUM 1.51 mg/dL (0.72-1.25); POTASSIUM 4.6 mmol/L (3.5-5.1)
[2021-11-24 15:36] LABS: BACTERIA,URINE RARE /HPF; EPITHELIAL CELLS,URINE RARE /LPF; WBC,URINE (MAN) 0-5 /HPF (0-5)
[2021-11-24] MEDS ORDERED: ACETAMINOPHEN-1 EAC4 PO (16:11)
[2021-11-24] MEDS ORDERED: VALTREX500 MG PO (16:11)
== END 2021-11-24 16:29 | disposition home or self-care (01) ==
LOC: ER 14:17
DX: R07.89 Other chest pain (principal); W18.39XA Other fall on same level, initial encounter; Y93.01 Activity, walking, marching and hiking; Y92.89 Other specified places as the place of occurrence of the external cause; I10 Essential (primary) hypertension; I50.9 Heart failure, unspecified; I25.10 Atherosclerotic heart disease of native coronary artery without angina pectoris; K21.9 Gastro-esophageal reflux disease without esophagitis; M54.9 Dorsalgia, unspecified; G89.29 Other chronic pain; Z86.73 Personal history of transient ischemic attack (TIA), and cerebral infarction without residual deficits; R94.31 Abnormal electrocardiogram [ECG] [EKG]
CPT/HCPCS: 36415; 71046; 80053; 81001; 84484; 85025; 93005; 99283

== ENCOUNTER 2021-11-29 09:35 | Emergency (ER) | payer MEDICARE ==
[~2021-11-29] VITALS: Ht 198.1 cm; Wt 111.1 kg
[~2021-11-29 09:35] MED LIST changes: +VALTREX500 MG PO
[2021-11-29 12:20] VITALS: BP 149/99
== END 2021-11-29 12:20 | disposition home or self-care (01) ==
LOC: FSED 10:12
DX: M79.604 Pain in right leg (principal); I10 Essential (primary) hypertension; I50.9 Heart failure, unspecified; I25.10 Atherosclerotic heart disease of native coronary artery without angina pectoris; K21.9 Gastro-esophageal reflux disease without esophagitis; M54.9 Dorsalgia, unspecified; G89.29 Other chronic pain; Z95.1 Presence of aortocoronary bypass graft; Z95.5 Presence of coronary angioplasty implant and graft
CPT/HCPCS: 93971; 99283

== ENCOUNTER 2022-01-04 09:56 | Emergency (ER) | payer MEDICARE ==
[~2022-01-04] VITALS: Ht 198.1 cm; Wt 107.3 kg
[2022-01-04] MEDS ORDERED: PANTOPRAZOLE SO40 MG PO (10:31)
== END 2022-01-04 10:55 | disposition home or self-care (01) ==
LOC: FSED 10:06
DX: R13.10 Dysphagia, unspecified (principal); K21.9 Gastro-esophageal reflux disease without esophagitis; I10 Essential (primary) hypertension; I48.91 Unspecified atrial fibrillation; D68.9 Coagulation defect, unspecified; I25.10 Atherosclerotic heart disease of native coronary artery without angina pectoris; I50.9 Heart failure, unspecified; E78.5 Hyperlipidemia, unspecified; Z86.73 Personal history of transient ischemic attack (TIA), and cerebral infarction without residual deficits; Z95.5 Presence of coronary angioplasty implant and graft; Z95.1 Presence of aortocoronary bypass graft
CPT/HCPCS: 99283

== ENCOUNTER 2022-01-16 17:39 | Emergency (ER) | payer MEDICARE ==
[~2022-01-16] VITALS: Ht 198.1 cm; Wt 107.0 kg
[2022-01-16 18:36] LABS: CLARITY,URINE CLEAR (CLEAR); COLOR,URINE YELLOW (YELLOW); KETONES,URINE NEGATIVE (NEGATIVE); LEUKOCYTE ESTERASE ,URINE TRACE (NEGATIVE); NITRITE,URINE NEGATIVE (NEGATIVE); PROTEIN,URINE DIPSTICK NEGATIVE (NEGATIVE); URINE UROBILINOGEN 0.2 mg/dL (0.2 - 1)
[2022-01-16 18:41] LABS: BACTERIA,URINE RARE /HPF; EPITHELIAL CELLS,URINE FEW /LPF; WBC,URINE (MAN) 0-5 /HPF (0-5)
[2022-01-16] MEDS ORDERED: CIPRO500 MG PO (21:02)
== END 2022-01-16 21:04 | disposition home or self-care (01) ==
LOC: ER 17:45
DX: R10.31 Right lower quadrant pain (principal); I10 Essential (primary) hypertension; E78.5 Hyperlipidemia, unspecified; I50.9 Heart failure, unspecified; I48.91 Unspecified atrial fibrillation; I25.10 Atherosclerotic heart disease of native coronary artery without angina pectoris; K21.9 Gastro-esophageal reflux disease without esophagitis; M54.9 Dorsalgia, unspecified; G89.29 Other chronic pain; Z86.73 Personal history of transient ischemic attack (TIA), and cerebral infarction without residual deficits; Z95.1 Presence of aortocoronary bypass graft; Z95.5 Presence of coronary angioplasty implant and graft
CPT/HCPCS: 74176; 81001; 99283

== ENCOUNTER 2022-06-22 04:04 | Emergency (ER) | payer OTHER ==
[~2022-06-22] VITALS: Ht 198.1 cm; Wt 107.0 kg
[2022-06-22] MEDS ORDERED: CEFDINIR300 MG PO (05:21)
[2022-06-22] MEDS ORDERED: BROMPHENIR-PSE118 ML PO (05:21)
[2022-06-22] MEDS ORDERED: DEXAMETHASONE SOD PHOS INJ 4 MG/ML SDV IM ONE (05:30)
[2022-06-22] MEDS ORDERED: CEFTRIAXONE 1 GM VIAL IM ONE (05:30)
[2022-06-22] MEDS ORDERED: CEFTRIAXONE 1 GM VIAL ONE (05:37)
[2022-06-22] MEDS ORDERED: DEXAMETHASONE SOD PHOS INJ 4 MG/ML SDV ONE (05:37)
== END 2022-06-22 06:09 | disposition home or self-care (01) ==
LOC: FSED 04:28
DX: R05.9 Cough, unspecified (principal); U07.1 COVID-19; J06.9 Acute upper respiratory infection, unspecified; I10 Essential (primary) hypertension; I50.9 Heart failure, unspecified; E78.5 Hyperlipidemia, unspecified; I25.2 Old myocardial infarction; Z95.1 Presence of aortocoronary bypass graft; Z95.5 Presence of coronary angioplasty implant and graft
CPT/HCPCS: 71046; 83518; 87400; 93005; 99283; J0696; J1100

== ENCOUNTER 2022-07-10 07:25 | Inpatient (IN) | payer OTHER ==
[~2022-07-10] VITALS: Ht 195.6 cm; Wt 106.6 kg
[~2022-07-10 07:25] MED LIST changes: +BROMPHENIR-PSE118 ML PO
[2022-07-10] MEDS ORDERED: FENTANYL CITRATE/PF 100MCG/2 ML INJ IV ONE (07:45)
[2022-07-10 07:56] LABS: BASOPHILS % 0.4 % (0.0-1.0); EOSINOPHILS % 0.6 % (0.0-6.0); HEMATOCRIT 32.7 % (38.2-49.6); HEMOGLOBIN 10.8 g/dL (14.0-18.0); LYMPHOCYTES # (AUTO) 1.3 (1.0-3.2); MEAN CORPUSCULAR HEMOGLOBIN 28.9 pg (28-32); MEAN CORPUSCULAR VOLUME 87.4 fL (81-99); MONOCYTES # (AUTO) 0.7 (0.2-0.8); NEUTROPHILS # (AUTO) 4.6 (2.1-6.9); NEUTROPHILS % 69.1 % (38.7-80.0); PLATELET COUNT 147 x10e3/uL (140-360); RED BLOOD COUNT 3.74 x10e6/uL (4.3-5.7); RED CELL DISTRIBUTION WIDTH 15.7 % (11.7-14.4)
[2022-07-10 08:05] LABS: ALBUMIN 4.2 g/dL (3.5-5.0); ANION GAP 16.2 mmol/L (8-16); CALCIUM 9.2 mg/dL (8.4-10.2); CREATININE, SERUM 3.29 mg/dL (0.72-1.25); POTASSIUM 5.2 mmol/L (3.5-5.1)
[2022-07-10 08:29] LABS: CLARITY,URINE CLEAR (CLEAR); COLOR,URINE YELLOW (YELLOW); KETONES,URINE NEGATIVE (NEGATIVE); LEUKOCYTE ESTERASE ,URINE NEGATIVE (NEGATIVE); NITRITE,URINE NEGATIVE (NEGATIVE); PROTEIN,URINE DIPSTICK 1+ (NEGATIVE); URINE UROBILINOGEN 0.2 mg/dL (0.2 - 1)
[2022-07-10] MEDS ORDERED: SODIUM CHLORIDE 0.9% 1000ML 1,000 ML IV SCH (08:45)
[2022-07-10 08:50] LABS: BACTERIA,URINE FEW /HPF; EPITHELIAL CELLS,URINE RARE /LPF; RBC,URINE 0-5 /HPF (0-5); WBC,URINE (MAN) 0-5 /HPF (0-5)
[2022-07-10] MEDS ORDERED: FENTANYL CITRATE/PF 100MCG/2 ML INJ IV PRN (09:15)
[2022-07-10] MEDS ORDERED: FENTANYL CITRATE/PF 100MCG/2 ML INJ ONE (09:34)
[2022-07-10] MEDS: Morphine 4mg INJECTION 4 MG/ML INJ IV PRN ×3 (11:49→21:48)
[2022-07-10] MEDS: SODIUM CHLORIDE 0.9% 1000ML 1,000 ML IV SCH ×2 (11:50→18:01)
[2022-07-10] MEDS: ONDANSETRON HCL INJ 2MG/ML 2ML 2 MG/ML VIAL IV PRN ×3 (11:50→21:48)
[2022-07-10 12:30] VITALS: BP 130/74
[2022-07-10 14:09] VITALS: BP 130/74
[2022-07-10 14:29] VITALS: BP 130/74
[2022-07-10 15:46] VITALS: BP 117/75
[2022-07-10 20:00] VITALS: BP 143/78
[2022-07-10 22:12] VITALS: BP 143/78
[2022-07-11] VITALS (8 sets, daily range): BP systolic 107–129; BP diastolic 55–83
[2022-07-11] MEDS: Morphine 4mg INJECTION 4 MG/ML INJ IV PRN (04:21)
[2022-07-11] MEDS: ONDANSETRON HCL INJ 2MG/ML 2ML 2 MG/ML VIAL IV PRN ×3 (04:21→17:26)
[2022-07-11] MEDS: SODIUM CHLORIDE 0.9% 1000ML 1,000 ML IV SCH ×3 (04:36→20:08)
[2022-07-11] MEDS: PANTOPRAZOLE SOD 40 MG TABEC PO SCH (09:59)
[2022-07-11] MEDS ORDERED: HYDROCODONE/APAP 10MG-325MG TAB PO PRN (10:00)
[2022-07-11 10:54] LABS: BASOPHILS % 0.2 % (0.0-1.0); EOSINOPHILS % 0.4 % (0.0-6.0); HEMATOCRIT 29.8 % (38.2-49.6); HEMOGLOBIN 9.6 g/dL (14.0-18.0); LYMPHOCYTES # (AUTO) 0.7 (1.0-3.2); LYMPHOCYTES % 12.9 % (18.0-39.1); MEAN CORPUSCULAR HEMOGLOBIN 28.7 pg (28-32); MEAN CORPUSCULAR HGB CONC 32.2 g/dL (31-35); MONOCYTES # (AUTO) 0.6 (0.2-0.8); MONOCYTES % 11.1 % (4.4-11.3); NEUTROPHILS # (AUTO) 3.9 (2.1-6.9); NEUTROPHILS % 74.1 % (38.7-80.0); PLATELET COUNT 125 x10e3/uL (140-360); RED BLOOD COUNT 3.35 x10e6/uL (4.3-5.7); RED CELL DISTRIBUTION WIDTH 15.8 % (11.7-14.4)
[2022-07-11 11:10] LABS: ANION GAP 10.6 mmol/L (8-16); CALCIUM 8.7 mg/dL (8.4-10.2); CREATININE, SERUM 2.06 mg/dL (0.72-1.25); POTASSIUM 5.6 mmol/L (3.5-5.1)
[2022-07-11] MEDS: TAMSULOSIN HCL 0.4 MG CAP PO SCH (16:38)
[2022-07-11] MEDS: VALACYCLOVIR HCL 500 MG TAB PO SCH (16:38)
[2022-07-11] MEDS: SENNA-S TABLET PO SCH (16:38)
[2022-07-11] MEDS: APIXABAN 5 MG TABLET PO SCH (16:38)
[2022-07-11] MEDS: METOPROLOL TARTRATE 25 MG TAB PO SCH (16:42)
[2022-07-11] MEDS ORDERED: SOD POLYSTYRENE SULFONATE SUSP 15 GM/60 ML BTL PO ONE (19:00)
[2022-07-12] VITALS (7 sets, daily range): BP systolic 89–146; BP diastolic 40–85
[2022-07-12] MEDS: Morphine 4mg INJECTION 4 MG/ML INJ IV PRN ×3 (00:35→23:23)
[2022-07-12 06:01] LABS: BASOPHILS % 0.4 % (0.0-1.0); EOSINOPHILS % 0.6 % (0.0-6.0); HEMATOCRIT 29.7 % (38.2-49.6); HEMOGLOBIN 9.6 g/dL (14.0-18.0); LYMPHOCYTES % 20.5 % (18.0-39.1); MEAN CORPUSCULAR HGB CONC 32.3 g/dL (31-35); MEAN CORPUSCULAR VOLUME 89.7 fL (81-99); MONOCYTES # (AUTO) 0.5 (0.2-0.8); MONOCYTES % 10.4 % (4.4-11.3); NEUTROPHILS # (AUTO) 3.2 (2.1-6.9); NEUTROPHILS % 66.9 % (38.7-80.0); PLATELET COUNT 118 x10e3/uL (140-360); RED BLOOD COUNT 3.31 x10e6/uL (4.3-5.7); RED CELL DISTRIBUTION WIDTH 15.6 % (11.7-14.4)
[2022-07-12 06:23] LABS: ANION GAP 13.3 mmol/L (8-16); CALCIUM 8.7 mg/dL (8.4-10.2); CREATININE, SERUM 1.77 mg/dL (0.72-1.25); POTASSIUM 5.3 mmol/L (3.5-5.1)
[2022-07-12] MEDS: SODIUM CHLORIDE 0.9% 1000ML 1,000 ML IV SCH ×2 (06:26→12:52)
[2022-07-12] MEDS: CLOPIDOGREL BISULFATE 75 MG TAB PO SCH (08:45)
[2022-07-12] MEDS: APIXABAN 5 MG TABLET PO SCH ×2 (08:45→16:00)
[2022-07-12] MEDS: METOPROLOL TARTRATE 25 MG TAB PO SCH ×2 (08:46→16:39)
[2022-07-12] MEDS: SENNA-S TABLET PO SCH ×2 (08:46→16:00)
[2022-07-12] MEDS: PANTOPRAZOLE SOD 40 MG TABEC PO SCH (08:46)
[2022-07-12] MEDS: VALACYCLOVIR HCL 500 MG TAB PO SCH ×2 (08:47→16:00)
[2022-07-12] MEDS ORDERED: PANTOPRAZOLE SOD 40 MG TABEC PO SCH (09:00)
[2022-07-12] MEDS: ONDANSETRON HCL INJ 2MG/ML 2ML 2 MG/ML VIAL IV PRN ×2 (09:15→23:24)
[2022-07-12] MEDS ORDERED: SOD POLYSTYRENE SULFONATE SUSP 15 GM/60 ML BTL PO ONE (09:45)
[2022-07-12] MEDS ORDERED: ACETAMINOPHEN 325 MG TAB PO PRN (15:45)
[2022-07-12] MEDS ORDERED: CITRATE OF MAGNESIA 300ML BOTTLE PO PRN (15:45)
[2022-07-12] MEDS: TAMSULOSIN HCL 0.4 MG CAP PO SCH (16:00)
[2022-07-12] MEDS ORDERED: MAGNESIUM HYDROXIDE 30 ML UDC PO PRN (16:00)
[2022-07-13] VITALS: BP 114/75
[2022-07-13] MEDS: SODIUM CHLORIDE 0.9% 1000ML 1,000 ML IV SCH ×2 (02:40→09:30)
[2022-07-13 04:58] VITALS: BP 97/66
[2022-07-13 06:09] LABS: BASOPHILS % 0.4 % (0.0-1.0); EOSINOPHILS # (AUTO) 0.1 (0.0-0.4); EOSINOPHILS % 1.2 % (0.0-6.0); HEMATOCRIT 26.5 % (38.2-49.6); HEMOGLOBIN 8.7 g/dL (14.0-18.0); LYMPHOCYTES # (AUTO) 0.6 (1.0-3.2); LYMPHOCYTES % 12.2 % (18.0-39.1); MEAN CORPUSCULAR HEMOGLOBIN 29.2 pg (28-32); MEAN CORPUSCULAR HGB CONC 32.8 g/dL (31-35); MEAN CORPUSCULAR VOLUME 88.9 fL (81-99); MONOCYTES # (AUTO) 0.7 (0.2-0.8); MONOCYTES % 13.7 % (4.4-11.3); NEUTROPHILS # (AUTO) 3.7 (2.1-6.9); NEUTROPHILS % 71.1 % (38.7-80.0); PLATELET COUNT 104 x10e3/uL (140-360); RED BLOOD COUNT 2.98 x10e6/uL (4.3-5.7); RED CELL DISTRIBUTION WIDTH 15.5 % (11.7-14.4)
[2022-07-13 06:23] LABS: ANION GAP 10.4 mmol/L (8-16); CALCIUM 8.1 mg/dL (8.4-10.2); CREATININE, SERUM 1.5 mg/dL (0.72-1.25); POTASSIUM 4.4 mmol/L (3.5-5.1)
[2022-07-13 08:56] VITALS: BP 129/79
[2022-07-13] MEDS: APIXABAN 5 MG TABLET PO SCH (09:25)
[2022-07-13] MEDS: PANTOPRAZOLE SOD 40 MG TABEC PO SCH (09:25)
[2022-07-13] MEDS: CLOPIDOGREL BISULFATE 75 MG TAB PO SCH (09:25)
[2022-07-13] MEDS: VALACYCLOVIR HCL 500 MG TAB PO SCH (09:26)
[2022-07-13] MEDS: SENNA-S TABLET PO SCH (09:26)
[2022-07-13] MEDS: METOPROLOL TARTRATE 25 MG TAB PO SCH (09:26)
[2022-07-13 09:48] VITALS: BP 129/79
== END 2022-07-13 11:00 | disposition home or self-care (01) | DRG 683 ==
LOC: ER 07:30 → ERHOLD 12:06 → ER 12:09 → MED/SURG2 12:39 → OBSVTOIN 07-12 09:13
PROVIDERS: ADMIT Internal Medicine; ATTEND Internal Medicine
DX: N17.0 Acute kidney failure with tubular necrosis (principal); I13.0 Hypertensive heart and chronic kidney disease with heart failure and stage 1 through stage 4 chronic kidney disease, or unspecified chronic kidney disease; E86.0 Dehydration; K66.0 Peritoneal adhesions (postprocedural) (postinfection); N18.9 Chronic kidney disease, unspecified; I50.9 Heart failure, unspecified; I25.2 Old myocardial infarction; I48.91 Unspecified atrial fibrillation; I25.10 Atherosclerotic heart disease of native coronary artery without angina pectoris; K21.9 Gastro-esophageal reflux disease without esophagitis; E78.5 Hyperlipidemia, unspecified; G89.29 Other chronic pain; E87.5 Hyperkalemia; M54.50 Low back pain, unspecified; D63.1 Anemia in chronic kidney disease; Z20.822 Contact with and (suspected) exposure to COVID-19; Z86.73 Personal history of transient ischemic attack (TIA), and cerebral infarction without residual deficits; Z90.49 Acquired absence of other specified parts of digestive tract; Z95.1 Presence of aortocoronary bypass graft; Z95.5 Presence of coronary angioplasty implant and graft
CPT/HCPCS: 0223U; 36415; 71045; 72072; 72110; 74176; 80048; 80053; 81001; 83690; 84484; 85025; 93005; 94799; 99285; G0378; J0696; J2270; J2405; J3010; J7030

== ENCOUNTER 2022-08-25 16:03 | Emergency (ER) | payer OTHER ==
[~2022-08-25] VITALS: Ht 195.6 cm; Wt 106.6 kg
[2022-08-25] MEDS ORDERED: DIATRIZOATE MEGL/DIATRIZOA SOD 30 ML BTL PO ONE (16:37)
[2022-08-25] MEDS ORDERED: SODIUM CHLORIDE 0.9% 1000ML 1,000 ML IV SCH (17:15)
[2022-08-25] MEDS ORDERED: SODIUM CHLORIDE 0.9% 1000ML 1,000 ML ONE (17:31)
[2022-08-25] MEDS ORDERED: ULTRAM 50MG50 MG PO (19:22)
== END 2022-08-25 19:30 | disposition home or self-care (01) ==
LOC: FSED 16:08
DX: R10.31 Right lower quadrant pain (principal); E87.5 Hyperkalemia; I10 Essential (primary) hypertension; K57.90 Diverticulosis of intestine, part unspecified, without perforation or abscess without bleeding; K44.9 Diaphragmatic hernia without obstruction or gangrene; E78.5 Hyperlipidemia, unspecified; I25.10 Atherosclerotic heart disease of native coronary artery without angina pectoris; D64.9 Anemia, unspecified; N28.9 Disorder of kidney and ureter, unspecified; G89.29 Other chronic pain; R94.31 Abnormal electrocardiogram [ECG] [EKG]; Z95.1 Presence of aortocoronary bypass graft; Z95.5 Presence of coronary angioplasty implant and graft
CPT/HCPCS: 74176; 80053; 81003; 85025; 93005; 99284; J7030; Q9963